=== PATIENT | female | born 1945 | race African-American/Black ===

== ENCOUNTER 2018-01-09 13:08 | Inpatient (IN) | payer MEDICARE, OTHER ==
[~2018-01-09] VITALS: Ht 160 cm; Wt 107.0 kg
[~2018-01-09 13:08] MED LIST: AMLODIPINE BESYL5 MG ORAL; ATORVASTATIN CA20 MG ORAL; CEPHALEXIN250 MG ORAL; DOCUSATE SODIU100 MG ORAL; EPOGEN10000 UNIT SUBQ; HEPARIN SO5000 UNIT2 SUBQ; HYDRALAZINE HCL25 M1 ORAL; ISOSORBIDE DINIT5 MG ORAL; KCL; LANTISEPTIC OI113 GM TP; METOPROLOL TART25 MG ORAL; NORCO 5-325 TA1 EAC1 ORAL; NORCO 5-325 TA1 EACH ORAL; OMEPRAZOLE20 M2 ORAL; PROTONIX40 MG ORAL; SYNTHROID200 MC1 IV; TEMAZEPAM15 MG ORAL; ZOFRAN 4 MG4 MG/2 ML IV; [UNRECOGNIZED DRUG - OTHER]; atorvastatin; carbidopa; lasix; levothyroxine; losartan; trazadone; zoloft
[2018-01-09] MEDS ORDERED: APRESOLINE50 MG ORAL (15:20)
[2018-01-09] MEDS ORDERED: PANTOPRAZOLE SO20 MG ORAL (15:20)
[2018-01-09] MEDS ORDERED: LOSARTAN POTAS100 MG ORAL (15:20)
[2018-01-09] MEDS ORDERED: LEVOTHYROXINE137 MCG ORAL (15:20)
[2018-01-09] MEDS ORDERED: NORCO 10/3251 EA ORAL (15:20)
[2018-01-09] MEDS ORDERED: NORVASC10 MG ORAL (15:22)
[2018-01-09] MEDS ORDERED: METOPROLOL TART25 MG ORAL (15:22)
[2018-01-09] MEDS ORDERED: Norco 5mg/325mg tab ORAL PRN (17:00)
[2018-01-09 18:23] LABS: HEMATOCRIT 21.5 % (37.0-47.0); MEAN CORPUSCULAR VOLUME 86 FL (80-99); PLATELET COUNT 183 K/UL (150-450); RED BLOOD COUNT 2.48 M/UL (4.20-5.40); RED CELL DISTRIBUTION WIDTH 13.3 % (11.6-14.8)
[2018-01-09 18:35] LABS: HEMOGLOBIN 6.8 G/DL (12.0-16.0)
[2018-01-09] MEDS: Docusate 100mg cap ORAL SCH (18:48)
[2018-01-09 19:03] LABS: ALANINE AMINOTRANSFERASE 66 U/L (12-78); ALBUMIN 2.8 G/DL (3.4-5.0); ALBUMIN/GLOBULIN RATIO 0.6 (1.0-2.7); ALKALINE PHOSPHATASE 91 U/L (46-116); ANION GAP 11 mmol/L (5-15); ASPARTATE AMINO TRANSFERASE 80 U/L (15-37); BILIRUBIN,TOTAL 0.3 MG/DL (0.2-1.0); BLOOD UREA NITROGEN 29 mg/dL (7-18); CALCIUM 9.2 MG/DL (8.5-10.1); CARBON DIOXIDE 21 MMOL/L (21-32); CHLORIDE 109 MMOL/L (98-107); CREATININE 2.8 MG/DL (0.55-1.30); POTASSIUM 4.6 MMOL/L (3.5-5.1); SODIUM 141 MMOL/L (136-145)
[2018-01-09 19:46] LABS: % IRON SATURATION 6 % (15-50); IRON 25 ug/dL (50-175); TOTAL IRON BINDING CAPACITY 422 ug/dL (250-450)
[2018-01-09 20:00] VITALS: BP 156/74
[2018-01-09] MEDS ORDERED: Heparin 5000 units/ml inj SUBQ SCH (21:00)
[2018-01-09] MEDS: HydrALAZINE 50mg tab ORAL SCH (21:13)
[2018-01-09 21:17] LABS: APPEARANCE,URINE CLEAR; BILIRUBIN, URINE NEGATIVE (NEGATIVE); COLOR,URINE PALE YELLOW; GLUCOSE, URINE (UA) NEGATIVE (NEGATIVE); KETONES,URINE NEGATIVE (NEGATIVE); LEUKOCYTE ESTERASE ,URINE 1+ (NEGATIVE); NITRITE,URINE NEGATIVE (NEGATIVE); PH,URINE 6.5 (4.5-8.0); PROTEIN,URINE 3+ (NEGATIVE); UROBILINOGEN,URINE NORMAL MG/DL (0.0-1.0)
[2018-01-09] MEDS ORDERED: DiphenhydrAMINE 50mg/ml Inj IVP PRN (23:30)
[2018-01-10] VITALS: BP 171/91
[2018-01-10 04:33] VITALS: BP 159/98
[2018-01-10] MEDS: HydrALAZINE 50mg tab ORAL SCH ×3 (06:22→21:21)
[2018-01-10] MEDS: Levothyroxine 125mcg tab ORAL SCH (06:22)
[2018-01-10 08:20] VITALS: BP 145/70
[2018-01-10] MEDS: Metoprolol 25mg tab ORAL SCH (09:01)
[2018-01-10] MEDS: Docusate 100mg cap ORAL SCH ×2 (09:02→18:00)
[2018-01-10] MEDS: Losartan 50mg tab ORAL SCH (09:02)
[2018-01-10 09:47] LABS: ALANINE AMINOTRANSFERASE 55 U/L (12-78); ALBUMIN 2.6 G/DL (3.4-5.0); ALBUMIN/GLOBULIN RATIO 0.6 (1.0-2.7); ALKALINE PHOSPHATASE 85 U/L (46-116); ANION GAP 11 mmol/L (5-15); ASPARTATE AMINO TRANSFERASE 84 U/L (15-37); BILIRUBIN,TOTAL 0.4 MG/DL (0.2-1.0); BLOOD UREA NITROGEN 30 mg/dL (7-18); CALCIUM 8.7 MG/DL (8.5-10.1); CARBON DIOXIDE 20 MMOL/L (21-32); CHLORIDE 110 MMOL/L (98-107); CREATININE 2.9 MG/DL (0.55-1.30); POTASSIUM 4.7 MMOL/L (3.5-5.1); SODIUM 141 MMOL/L (136-145)
[2018-01-10 10:24] LABS: BASOPHILS % (AUTO) 0.5 % (0.0-2.0); EOSINOPHILS % (AUTO) 2.6 % (0.0-3.0); HEMOGLOBIN 9.4 G/DL (12.0-16.0); LYMPHOCYTES % (AUTO) 14.4 % (20.0-45.0); MEAN CORPUSCULAR VOLUME 87 FL (80-99); MONOCYTES % (AUTO) 13.8 % (1.0-10.0); NEUTROPHILS % (AUTO) 68.7 % (45.0-75.0); PLATELET COUNT 200 K/UL (150-450); RED BLOOD COUNT 3.34 M/UL (4.20-5.40); RED CELL DISTRIBUTION WIDTH 13.7 % (11.6-14.8); WHITE BLOOD COUNT 3.9 K/UL (4.8-10.8)
[2018-01-10 11:47] VITALS: BP 154/57
--- NOTE | 2018-01-10 14:33 | Diagnostic Imaging Report ---
Indication: Abdominal pain, nausea, vomiting Technique: Spiral acquisitions obtained through the abdomen and pelvis. Patient given oral contrast. No IV contrast utilized, per referring physician request.. Multiplanar reconstructions were generated. Total dose length product 1015.96 mGycm. CTDIvol(s) 19.95 mGy. Dose reduction achieved using automated exposure control Comparison: None. Reference made to abdomen ultrasound dated 05/10/2015 Findings: The appendix is not definitely identified, but there are no findings to suggest acute appendicitis. There is an apparent 6 cm long segment of wall thickening of the proximal rectum, probably artifactual secondary to lack of distention. No evidence of diverticulosis or diverticulitis. No small bowel distention. Contrast is seen all the way through the small bowel to the distal rectum. The stomach, duodenum, distal esophagus are unremarkable. Lack of IV contrast limits assessment of the solid organs. The liver is unremarkable. The gallbladder demonstrate very faint gallstones. No biliary ductal dilatation. The pancreas is unremarkable. The spleen is upper limits of normal in size, demonstrates parenchymal calcifications. The adrenals are unremarkable. The kidneys demonstrate bilateral subcentimeter low-attenuation lesions which are too small to characterize but most likely represent benign simple cysts. No retroperitoneal or mesenteric mass or adenopathy. No pelvic mass or adenopathy. There is a left hip prosthesis which results in streak artifact which may obscure pathology in the pelvis. The uterus is nonvisualized, probably surgically absent. There are midline fascial wire sutures. There is a calcified granuloma in the medial right lower lobe. The included lung bases are otherwise largely cleared. There is a small pericardial effusion measuring up to 5 mm in thickness. The bones are unremarkable. Impression: Apparent 6 cm long segment wall thickening of the proximal rectum. This is probably just an artifact due to nondistention. 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
--- NOTE | 2018-01-10 15:47 | History and Physical Report ---
DATE OF ADMISSION: 01/09/2018 CHIEF COMPLAINT: Generalized malaise and dehydration. HISTORY OF PRESENT ILLNESS: The patient is a 72-year-old female well known to me. She has a history of hypertension and stroke. She has prior history of pericardial effusion and leukopenia. She presented to the office with complaints of one week of malaise, weakness, and poor p.o. intake. According to family members, the patient had been lethargic and sleepy most of the day. She is not eating and when she had, she had vomiting and had been unable to tolerate any p.o. She clinically was dehydrated. In the light of this recent history, she is now admitted for further evaluation and care. PAST MEDICAL HISTORY: As above. PAST SURGICAL HISTORY: None. CURRENT MEDICATIONS: Reconciled and reviewed. ALLERGIES: Include erythromycin. FAMILY HISTORY: Noncontributory. SOCIAL HISTORY: There is no known history of tobacco, ethanol, or drugs. REVIEW OF SYSTEMS: From the patient is unobtainable as she is lethargic. PHYSICAL EXAMINATION: VITAL SIGNS: Temperature is 99.1, pulse 103, respirations 22, and blood pressure 171/91. GENERAL: The patient is a well-developed chronically ill-appearing female. She has evidence of an old scar on the forehead. NECK: Supple. There is no jugular venous distention. HEART: Regular rate and rhythm. LUNGS: Clear. ABDOMEN: Soft, obese, and nontender. EXTREMITIES: No clubbing, cyanosis, or edema. LABORATORY DATA: UA was clear. White count 4, hemoglobin 6.8, hematocrit 21, and platelets of 183,000. Sodium 141 and creatinine was 2.8. The urine was clear. ASSESSMENT: This is a pleasant female admitted with complaints of generalized malaise, weakness, nausea, and vomiting. She has severe anemia, unclear etiology, cannot rule out gastrointestinal bleed. She also has acute renal failure. PLAN: IV hydration. Transfuse to hemoglobin greater than 8.5. Check stool occult blood. The patient will receive IV iron. We will continue outpatient antihypertensive regimen. Get CT scan of the abdomen as ordered in light of the patient's recent complaints of nausea, vomiting, and abdominal pain. Chema Uomoto, M.D. DR: OLVIN JOB#: [id number] CC:
[2018-01-10 15:55] VITALS: BP 146/75
[2018-01-10 20:00] VITALS: BP 152/89
[2018-01-11] VITALS: BP 169/92
[2018-01-11 04:00] VITALS: BP 141/75
[2018-01-11] MEDS: HydrALAZINE 50mg tab ORAL SCH ×3 (06:02→21:00)
[2018-01-11] MEDS: Levothyroxine 125mcg tab ORAL SCH (06:02)
[2018-01-11] MEDS: Metoprolol 25mg tab ORAL SCH (08:13)
[2018-01-11] MEDS: Losartan 50mg tab ORAL SCH (08:14)
[2018-01-11] MEDS: Docusate 100mg cap ORAL SCH ×2 (08:14→18:00)
[2018-01-11 09:00] VITALS: BP 147/89
--- NOTE | 2018-01-11 09:02 | General Progress Note ---
Assessment/Plan Problem List: (1) Acute renal failure (ARF) ICD Codes: N17.9 - Acute kidney failure, unspecified SNOMED: 62483751 (2) Chronic kidney disease, stage III (moderate) ICD Codes: N18.3 - Chronic kidney disease, stage III (moderate) SNOMED: 240448743 (3) Pancytopenia ICD Codes: D61.818 - Pancytopenia SNOMED: 230147922 (4) Abdominal pain in female ICD Codes: R10.9 - Unspecified abdominal pain SNOMED: 72283839 Status: stable, progressing Assessment/Plan ivf check renal neyda check ck monitor h/h transfuse prn gi eval Subjective ROS Limited/Unobtainable: No Constitutional: Reports: malaise, weakness HEENT: Reports: no symptoms Cardiovascular: Reports: no symptoms Respiratory: Reports: cough Gastrointestinal/Abdominal: Reports: poor appetite Genitourinary: Reports: no symptoms Neurologic/Psychiatric: Reports: pre-existing deficit Endocrine: Reports: no symptoms Hematologic/Lymphatic: Reports: anemia Allergies: Coded Allergies: ERYTHROMYCIN BASE (Unverified Allergy, Intermediate, 02/10/15) All Systems: reviewed and negative except above Subjective no events. no new complaints. ct noted. h/h better. renal fxn not improved Objective Last 24 Hour Vital Signs Date Time Temp Pulse Resp B/P (MAP) Pulse Ox O2 Delivery O2 Flow Rate FiO2 01/11/18 08:14 141/75 01/11/18 08:14 99 141/75 01/11/18 08:13 99 141/75 01/11/18 06:02 141/75 01/11/18 04:00 96 Room Air 01/11/18 04:00 97.8 99 20 141/75 93 Room Air 97.8 01/11/18 00:54 169/92 01/11/18 00:00 95 Room Air 01/11/18 00:00 98.2 98 20 169/92 94 Room Air 98.2 01/10/18 21:21 152/89 01/10/18 20:00 96 Room Air 01/10/18 20:00 98.8 86 20 152/89 94 Room Air 98.8 01/10/18 15:55 98.8 88 21 146/75 97 Room Air 98.8 01/10/18 14:34 154/57 01/10/18 11:47 98.1 83 18 154/57 97 Room Air 98.1 01/10/18 09:02 159/98 01/10/18 09:02 95 159/98 Intake and Output 01/10/18 01/11/18 19:00 07:00 Intake Total 1155 ml 900 ml Balance 1155 ml 900 ml Intake Oral 480 ml IV Total 675 ml 900 ml # Voids 2 4 # Bowel Movements 3 Laboratory Tests 01/10/18 09:05: Sodium Level 141, Potassium Level 4.7, Chloride Level 110H, Carbon Dioxide Level 20L, Anion Gap 11, Blood Urea Nitrogen 30H, Creatinine 2.9H, Estimat Glomerular Filtration Rate 19.4, Glucose Level 148H, Calcium Level 8.7, Total Bilirubin 0.4, Aspartate Amino Transf (AST/SGOT) 84H, Alanine Aminotransferase ( ALT/SGPT) 55, Alkaline Phosphatase 85, Total Protein 7.1, Albumin 2.6L, Globulin 4.5, Albumin/Globulin Ratio 0.6L 01/10/18 10:15: Stool Occult Blood [Pending] 01/10/18 10:20: White Blood Count 3.9L, Red Blood Count 3.34L, Hemoglobin 9.4#L, Hematocrit 29.0 #L, Mean Corpuscular Volume 87, Mean Corpuscular Hemoglobin 28.0, Mean Corpuscular Hemoglobin Concent 32.2, Red Cell Distribution Width 13.7, Platelet Count 200, Mean Platelet Volume 7.2, Neutrophils (%) (Auto) 68.7, Lymphocytes (% ) (Auto) 14.4L, Monocytes (%) (Auto) 13.8H, Eosinophils (%) (Auto) 2.6, Basophils (%) (Auto) 0.5 Height (Feet): 5 Height (Inches): 3.00 Weight (Pounds): 237 General Appearance: WD/WN, alert Neck: supple Cardiovascular: normal rate, regular rhythm Respiratory/Chest: chest wall non-tender, lungs clear, normal breath sounds, no respiratory distress Abdomen: normal bowel sounds, non tender, soft, no organomegaly Edema: no edema noted Arm (L), no edema noted Arm (R), no edema noted Leg (L), no edema noted Leg (R), no edema noted Pedal (L), no edema noted Pedal (R), no edema noted Generalized Neurologic: alert, oriented x 3, responsive WILLIE AZEVEDO Jan 11, 2018 09:02
[2018-01-11 10:39] LABS: CREATINE KINASE 563 U/L (26-308)
[2018-01-11 16:00] VITALS: BP 146/91
--- NOTE | 2018-01-11 16:48 | Diagnostic Imaging Report ---
Indication: Acute renal failure Technique: Grayscale and duplex images of the kidneys Comparison: Abdomen and pelvis CT 01/10/2018, abdominal ultrasound dated 05/10/2015 Findings: Right kidney measures 10.8 cm in length. Left kidney measures 10.6 cm in length. Both kidneys demonstrate increased echogenicity. There is no hydronephrosis. Both kidneys demonstrate multiple small cysts, not demonstrated on prior ultrasound and reported on recent CT scan. The bladder is unremarkable. The increased renal echogenicity is a new finding from the prior ultrasound. Impression: Bilateral increased renal echogenicity, consistent with medical renal disease Negative for hydronephrosis Incidental finding of bilateral small renal cysts
--- NOTE | 2018-01-11 18:27 | General Progress Note ---
Assessment/Plan Assessment/Plan Assessment - Anemia - OB (+) stools - ? abnormal CT scan in rectal area - Azotemia - obesity - HTN - h/o CVA Recommendations - Clear liquid Sat and Sun - GI prep - EGD/Colon Sunday at 11 am (discussed with daughter) - monitor CBC - transfuse PRN Subjective Allergies: Coded Allergies: ERYTHROMYCIN BASE (Unverified Allergy, Intermediate, 02/10/15) Objective Last 24 Hour Vital Signs Date Time Temp Pulse Resp B/P (MAP) Pulse Ox O2 Delivery O2 Flow Rate FiO2 01/11/18 16:00 97.7 87 20 146/91 97 97.7 01/11/18 14:03 147/89 01/11/18 09:00 98.7 103 20 147/89 99 98.7 01/11/18 08:14 141/75 01/11/18 08:14 99 141/75 01/11/18 08:13 99 141/75 01/11/18 06:02 141/75 01/11/18 04:00 96 Room Air 01/11/18 04:00 97.8 99 20 141/75 93 Room Air 97.8 01/11/18 00:54 169/92 01/11/18 00:00 95 Room Air 01/11/18 00:00 98.2 98 20 169/92 94 Room Air 98.2 01/10/18 21:21 152/89 01/10/18 20:00 96 Room Air 01/10/18 20:00 98.8 86 20 152/89 94 Room Air 98.8 Intake and Output 01/10/18 01/11/18 19:00 07:00 Intake Total 1155 ml 900 ml Balance 1155 ml 900 ml Intake Oral 480 ml IV Total 675 ml 900 ml # Voids 2 4 # Bowel Movements 3 Laboratory Tests 01/11/18 07:00: Total Creatine Kinase 563H Height (Feet): 5 Height (Inches): 3.00 Weight (Pounds): 237 MARIA DE JESUS DAUGHERTY Jan 11, 2018 18:27
[2018-01-11] MEDS ORDERED: Sorbitol Solution UD 30ml ORAL ONE (18:45)
[2018-01-11 20:00] VITALS: BP 165/98
[2018-01-11] MEDS: Zolpidem 5mg tab ORAL PRN ×2 (23:13)
[2018-01-12] VITALS: BP 183/99
--- NOTE | 2018-01-12 02:45 | Consultation ---
DATE OF CONSULTATION: 01/11/2018 GASTROENTEROLOGY CONSULTATION REPORT CHIEF COMPLAINT: I was asked to see this patient by Dr. Chema Hendricks for evaluation of severe anemia. HISTORY OF PRESENT ILLNESS: The patient is an unfortunate 72-year-old woman with a history of stroke, hypertension, and other medical problems, who was brought in to the hospital due to weakness, lethargy, and sleepiness. In the emergency room, she was found to be in renal failure with severe anemia. She has been admitted and has received transfusions. She is more awake now. The cause of anemia is unknown, but she does have heme-positive stools. She cannot recall ever having an endoscopy and colonoscopy and neither does her daughter. She denies any abdominal pain, nausea, or vomiting. PAST MEDICAL HISTORY: History of hypertension, stroke, obesity, history of pericardial effusion, history of leukopenia, current renal failure, and current anemia. MEDICATIONS: See the chart list for details. ALLERGIES: Erythromycin. SOCIAL HISTORY: The patient does not smoke or drink alcohol. Her daughter looks after her affairs. FAMILY HISTORY: Noncontributory. REVIEW OF SYSTEMS: Otherwise negative. PHYSICAL EXAMINATION: GENERAL: Pleasant, debilitated, woman, seen in her room. HEENT: Normocephalic and atraumatic. Sclerae are anicteric. Oropharynx clear. NECK: Supple. CHEST: Clear to auscultation. CARDIOVASCULAR: Revealed a regular rate. ABDOMEN: Soft, but obese. There is no organomegaly, but the examination is difficult. EXTREMITIES: Revealed trace edema. LABORATORY DATA: Laboratory data were noted. ASSESSMENT: This patient presents with profound anemia, which will require further workup especially since the patient is heme-positive. The rectal findings on CT scan are slightly nonspecific and often seen in the setting of rectal prolapse as a false positive and no pathology. However, an endoscopy and colonoscopy will be adequate to evaluate this area as well as the other relevant areas of the gastrointestinal tract. The indications, risks, alternatives, and possible complications were explained to the patient's daughter and informed consent was obtained. RECOMMENDATIONS: 1. Keep the patient on a clear liquid diet. 2. GI tract preparation. 3. Endoscopy and colonoscopy in a few days. Thank you for asking me to participate in the care of this patient. Mina Rao M.D. DR: Carolyne JOB#: [id number] CC: YUE
[2018-01-12 04:00] VITALS: BP 163/90
[2018-01-12] MEDS: HydrALAZINE 50mg tab ORAL SCH ×3 (06:28→20:48)
[2018-01-12] MEDS: Levothyroxine 125mcg tab ORAL SCH (06:29)
[2018-01-12] MEDS ORDERED: Sorbitol Solution UD 30ml ORAL ONE ×2 (07:00→18:30)
[2018-01-12 07:18] LABS: BASOPHILS % (AUTO) 0.8 % (0.0-2.0); EOSINOPHILS % (AUTO) 2.9 % (0.0-3.0); HEMATOCRIT 27.1 % (37.0-47.0); HEMOGLOBIN 8.9 G/DL (12.0-16.0); LYMPHOCYTES % (AUTO) 13.8 % (20.0-45.0); MEAN CORPUSCULAR VOLUME 86 FL (80-99); MONOCYTES % (AUTO) 10.6 % (1.0-10.0); NEUTROPHILS % (AUTO) 71.9 % (45.0-75.0); PLATELET COUNT 171 K/UL (150-450); RED BLOOD COUNT 3.14 M/UL (4.20-5.40); RED CELL DISTRIBUTION WIDTH 14.2 % (11.6-14.8); WHITE BLOOD COUNT 3.7 K/UL (4.8-10.8)
[2018-01-12 07:35] LABS: ALANINE AMINOTRANSFERASE 65 U/L (12-78); ALBUMIN 2.6 G/DL (3.4-5.0); ALBUMIN/GLOBULIN RATIO 0.6 (1.0-2.7); ALKALINE PHOSPHATASE 82 U/L (46-116); ANION GAP 9 mmol/L (5-15); ASPARTATE AMINO TRANSFERASE 81 U/L (15-37); BILIRUBIN,TOTAL 0.3 MG/DL (0.2-1.0); BLOOD UREA NITROGEN 26 mg/dL (7-18); CALCIUM 8.8 MG/DL (8.5-10.1); CARBON DIOXIDE 21 MMOL/L (21-32); CHLORIDE 113 MMOL/L (98-107); CREATININE 2.7 MG/DL (0.55-1.30); POTASSIUM 4.7 MMOL/L (3.5-5.1); SODIUM 143 MMOL/L (136-145)
[2018-01-12 08:00] VITALS: BP 174/93
[2018-01-12] MEDS: Metoprolol 25mg tab ORAL SCH (08:47)
[2018-01-12] MEDS: Docusate 100mg cap ORAL SCH ×2 (08:47→18:00)
--- NOTE | 2018-01-12 08:56 | General Progress Note ---
Assessment/Plan Problem List: (1) Acute renal failure (ARF) ICD Codes: N17.9 - Acute kidney failure, unspecified SNOMED: 53503363 (2) Chronic kidney disease, stage III (moderate) ICD Codes: N18.3 - Chronic kidney disease, stage III (moderate) SNOMED: 904790843 (3) Pancytopenia ICD Codes: D61.818 - Pancytopenia SNOMED: 864148357 (4) Abdominal pain in female ICD Codes: R10.9 - Unspecified abdominal pain SNOMED: 18313949 Status: stable, progressing Assessment/Plan ivf endoscopy monitor h/h monitor labs iv iron replacement transfuse prn Subjective ROS Limited/Unobtainable: No Constitutional: Reports: malaise, weakness HEENT: Reports: no symptoms Cardiovascular: Reports: no symptoms Respiratory: Reports: no symptoms Gastrointestinal/Abdominal: Reports: poor appetite Genitourinary: Reports: no symptoms Neurologic/Psychiatric: Reports: no symptoms Endocrine: Reports: no symptoms Hematologic/Lymphatic: Reports: anemia Allergies: Coded Allergies: ERYTHROMYCIN BASE (Unverified Allergy, Intermediate, 02/10/15) All Systems: reviewed and negative except above Subjective no events. no new complaints. ct noted. h/h better. renal fxn not improved. on ivf. GI appreciated. appetite better. Objective Last 24 Hour Vital Signs Date Time Temp Pulse Resp B/P (MAP) Pulse Ox O2 Delivery O2 Flow Rate FiO2 01/12/18 08:47 106 174/93 01/12/18 08:47 106 174/93 01/12/18 08:00 97.8 106 20 174/93 98 97.8 01/12/18 06:28 163/90 01/12/18 04:00 98.2 107 20 163/90 96 98.2 01/12/18 00:00 98.1 96 21 183/99 99 98.1 01/11/18 21:00 168/98 01/11/18 20:00 98.2 95 20 165/98 97 98.2 01/11/18 16:00 97.7 87 20 146/91 97 97.7 01/11/18 14:03 147/89 01/11/18 09:00 98.7 103 20 147/89 99 98.7 Intake and Output 01/11/18 01/12/18 19:00 07:00 Intake Total 995 ml 765 ml Output Total 200 ml Balance 795 ml 765 ml Intake Oral 920 ml 240 ml IV Total 75 ml 525 ml Output Post Void Residual 200 ml Bladder Scan Volume Amount 101-150 ml # Voids 5 5 # Bowel Movements 2 Laboratory Tests 01/12/18 06:20: White Blood Count 3.7L, Red Blood Count 3.14L, Hemoglobin 8.9L, Hematocrit 27.1L , Mean Corpuscular Volume 86, Mean Corpuscular Hemoglobin 28.4, Mean Corpuscular Hemoglobin Concent 32.9, Red Cell Distribution Width 14.2, Platelet Count 171, Mean Platelet Volume 8.5, Neutrophils (%) (Auto) 71.9, Lymphocytes (% ) (Auto) 13.8L, Monocytes (%) (Auto) 10.6H, Eosinophils (%) (Auto) 2.9, Basophils (%) (Auto) 0.8, Sodium Level 143, Potassium Level 4.7, Chloride Level 113H, Carbon Dioxide Level 21, Anion Gap 9, Blood Urea Nitrogen 26H, Creatinine 2.7H, Estimat Glomerular Filtration Rate 21.1, Glucose Level 123H, Calcium Level 8.8, Total Bilirubin 0.3, Aspartate Amino Transf (AST/SGOT) 81H, Alanine Aminotransferase (ALT/SGPT) 65, Alkaline Phosphatase 82, Total Protein 7.0, Albumin 2.6L, Globulin 4.4, Albumin/Globulin Ratio 0.6L Height (Feet): 5 Height (Inches): 3.00 Weight (Pounds): 237 Objective General Appearance: WD/WN, alert Neck: supple Cardiovascular: normal rate, regular rhythm Respiratory/Chest: chest wall non-tender, lungs clear, normal breath sounds, no respiratory distress Abdomen: normal bowel sounds, non tender, soft, no organomegaly Edema: no edema noted Arm (L), no edema noted Arm (R), no edema noted Leg (L), no edema noted Leg (R), no edema noted Pedal (L), no edema noted Pedal (R), no edema noted Generalized Neurologic: alert, oriented x 3, responsive WILLIE AZEVEDO Jan 12, 2018 08:56
[2018-01-12] MEDS: Losartan 50mg tab ORAL SCH (09:05)
[2018-01-12] MEDS ORDERED: Tubing Blood Filter IV ONE (11:08)
[2018-01-12 12:00] VITALS: BP 167/58
[2018-01-12 16:00] VITALS: BP 165/91
--- NOTE | 2018-01-12 17:57 | General Progress Note ---
Assessment/Plan Assessment/Plan Assessment - Anemia - OB (+) stools - ? abnormal CT scan in rectal area - Azotemia - obesity - HTN - h/o CVA Recommendations - Clear liquid Sat and Sun - GI prep - EGD/Colon Sunday at 11 am (discussed with daughter) - monitor CBC - transfuse PRN Subjective Allergies: Coded Allergies: ERYTHROMYCIN BASE (Unverified Allergy, Intermediate, 02/10/15) Subjective Above noted (+) BM with laxatives H&H noted Objective Last 24 Hour Vital Signs Date Time Temp Pulse Resp B/P (MAP) Pulse Ox O2 Delivery O2 Flow Rate FiO2 01/12/18 16:00 97.8 93 20 165/91 97 97.8 01/12/18 15:05 166/100 01/12/18 12:00 97.8 89 20 167/58 98 97.8 01/12/18 09:05 174/93 01/12/18 08:47 106 174/93 01/12/18 08:47 106 174/93 01/12/18 08:00 97.8 106 20 174/93 98 97.8 01/12/18 06:28 163/90 01/12/18 04:00 98.2 107 20 163/90 96 98.2 01/12/18 00:00 98.1 96 21 183/99 99 98.1 01/11/18 21:00 168/98 01/11/18 20:00 98.2 95 20 165/98 97 98.2 Intake and Output 01/11/18 01/12/18 19:00 07:00 Intake Total 995 ml 765 ml Output Total 200 ml Balance 795 ml 765 ml Intake Oral 920 ml 240 ml IV Total 75 ml 525 ml Output Post Void Residual 200 ml Bladder Scan Volume Amount 101-150 ml # Voids 5 5 # Bowel Movements 2 Laboratory Tests 01/12/18 06:20: White Blood Count 3.7L, Red Blood Count 3.14L, Hemoglobin 8.9L, Hematocrit 27.1L , Mean Corpuscular Volume 86, Mean Corpuscular Hemoglobin 28.4, Mean Corpuscular Hemoglobin Concent 32.9, Red Cell Distribution Width 14.2, Platelet Count 171, Mean Platelet Volume 8.5, Neutrophils (%) (Auto) 71.9, Lymphocytes (% ) (Auto) 13.8L, Monocytes (%) (Auto) 10.6H, Eosinophils (%) (Auto) 2.9, Basophils (%) (Auto) 0.8, Sodium Level 143, Potassium Level 4.7, Chloride Level 113H, Carbon Dioxide Level 21, Anion Gap 9, Blood Urea Nitrogen 26H, Creatinine 2.7H, Estimat Glomerular Filtration Rate 21.1, Glucose Level 123H, Calcium Level 8.8, Total Bilirubin 0.3, Aspartate Amino Transf (AST/SGOT) 81H, Alanine Aminotransferase (ALT/SGPT) 65, Alkaline Phosphatase 82, Total Protein 7.0, Albumin 2.6L, Globulin 4.4, Albumin/Globulin Ratio 0.6L Height (Feet): 5 Height (Inches): 3.00 Weight (Pounds): 237 Objective Obese AA woman NCAT supple CTA RRR Abd obese soft NT no edema MARIA DE JESUS DAUGHERTY Jan 12, 2018 17:57
[2018-01-12] MEDS ORDERED: Bisacodyl EC 5mg tab ORAL ONE (18:30)
[2018-01-12 20:00] VITALS: BP 176/90
[2018-01-12] MEDS: Iron Sucrose 100 MG in NS 55 ML IVPB SCH (20:49)
[2018-01-12] MEDS: Zolpidem 5mg tab ORAL PRN (20:59)
[2018-01-13] VITALS: BP 147/83
[2018-01-13 04:18] VITALS: BP 156/78
[2018-01-13] MEDS ORDERED: Nulytely 4L ORAL ONE (06:00)
[2018-01-13] MEDS: Levothyroxine 125mcg tab ORAL SCH (06:16)
[2018-01-13] MEDS: HydrALAZINE 50mg tab ORAL SCH ×3 (06:16→20:37)
[2018-01-13 07:23] LABS: BASOPHILS % (AUTO) 0.6 % (0.0-2.0); EOSINOPHILS % (AUTO) 2.1 % (0.0-3.0); HEMATOCRIT 28.3 % (37.0-47.0); HEMOGLOBIN 9.3 G/DL (12.0-16.0); LYMPHOCYTES % (AUTO) 12.7 % (20.0-45.0); MEAN CORPUSCULAR VOLUME 87 FL (80-99); NEUTROPHILS % (AUTO) 77.5 % (45.0-75.0); PLATELET COUNT 166 K/UL (150-450); RED BLOOD COUNT 3.26 M/UL (4.20-5.40); RED CELL DISTRIBUTION WIDTH 13.9 % (11.6-14.8); WHITE BLOOD COUNT 4.8 K/UL (4.8-10.8)
[2018-01-13 08:00] VITALS: BP 143/83
[2018-01-13 08:12] LABS: ALANINE AMINOTRANSFERASE 67 U/L (12-78); ALBUMIN 2.7 G/DL (3.4-5.0); ALBUMIN/GLOBULIN RATIO 0.6 (1.0-2.7); ALKALINE PHOSPHATASE 86 U/L (46-116); ANION GAP 10 mmol/L (5-15); ASPARTATE AMINO TRANSFERASE 77 U/L (15-37); BILIRUBIN,TOTAL 0.2 MG/DL (0.2-1.0); BLOOD UREA NITROGEN 21 mg/dL (7-18); CARBON DIOXIDE 19 MMOL/L (21-32); CHLORIDE 112 MMOL/L (98-107); CREATININE 2.3 MG/DL (0.55-1.30); POTASSIUM 4.3 MMOL/L (3.5-5.1); SODIUM 141 MMOL/L (136-145)
[2018-01-13] MEDS: Losartan 50mg tab ORAL SCH (09:46)
[2018-01-13] MEDS: Metoprolol 25mg tab ORAL SCH (09:47)
[2018-01-13] MEDS: Docusate 100mg cap ORAL SCH ×2 (09:47→17:10)
[2018-01-13] MEDS ORDERED: Tubing IV Secondary IV ONE (10:00)
--- NOTE | 2018-01-13 10:07 | General Progress Note ---
Assessment/Plan Problem List: (1) Acute renal failure (ARF) ICD Codes: N17.9 - Acute kidney failure, unspecified SNOMED: 75760855 (2) Chronic kidney disease, stage III (moderate) ICD Codes: N18.3 - Chronic kidney disease, stage III (moderate) SNOMED: 228078961 (3) Pancytopenia ICD Codes: D61.818 - Pancytopenia SNOMED: 897327904 (4) Abdominal pain in female ICD Codes: R10.9 - Unspecified abdominal pain SNOMED: 61902956 Status: stable, progressing Assessment/Plan ivf endoscopy monitor h/h monitor labs iv iron replacement transfuse prn increase metoprolol Subjective ROS Limited/Unobtainable: No Constitutional: Reports: malaise, weakness HEENT: Reports: no symptoms Cardiovascular: Reports: no symptoms Respiratory: Reports: no symptoms Gastrointestinal/Abdominal: Reports: no symptoms Genitourinary: Reports: no symptoms Neurologic/Psychiatric: Reports: pre-existing deficit Endocrine: Reports: no symptoms Hematologic/Lymphatic: Reports: no symptoms Allergies: Coded Allergies: ERYTHROMYCIN BASE (Unverified Allergy, Intermediate, 02/10/15) All Systems: reviewed and negative except above Subjective no events. no new complaints. ct noted. h/h better. renal fxn not improved. on ivf. GI appreciated. appetite better. increased hr noted Objective Last 24 Hour Vital Signs Date Time Temp Pulse Resp B/P (MAP) Pulse Ox O2 Delivery O2 Flow Rate FiO2 01/13/18 09:47 111 143/83 01/13/18 09:47 111 143/83 01/13/18 09:46 143/83 01/13/18 08:00 99.0 111 20 143/83 97 99.0 01/13/18 06:16 156/78 01/13/18 04:18 99.0 108 22 156/78 96 Room Air 99.0 01/13/18 00:00 98.8 103 21 147/83 97 98.8 01/12/18 20:48 176/90 01/12/18 20:00 98.2 98 21 176/90 95 98.2 01/12/18 16:00 97.8 93 20 165/91 97 97.8 01/12/18 15:05 166/100 01/12/18 12:00 97.8 89 20 167/58 98 97.8 Intake and Output 2/24/18 2/25/18 19:00 07:00 Intake Total 555 ml 990 ml Balance 555 ml 990 ml Intake Oral 480 ml IV Total 75 ml 990 ml # Voids 8 2 # Bowel Movements 5 1 Laboratory Tests 01/13/18 06:20: White Blood Count 4.8, Red Blood Count 3.26L, Hemoglobin 9.3L, Hematocrit 28.3L , Mean Corpuscular Volume 87, Mean Corpuscular Hemoglobin 28.6, Mean Corpuscular Hemoglobin Concent 33.0, Red Cell Distribution Width 13.9, Platelet Count 166, Mean Platelet Volume 8.1, Neutrophils (%) (Auto) 77.5H, Lymphocytes ( %) (Auto) 12.7L, Monocytes (%) (Auto) 7.0, Eosinophils (%) (Auto) 2.1, Basophils (%) (Auto) 0.6, Sodium Level 141, Potassium Level 4.3, Chloride Level 112H, Carbon Dioxide Level 19L, Anion Gap 10, Blood Urea Nitrogen 21H, Creatinine 2.3H, Estimat Glomerular Filtration Rate 25.5, Glucose Level 114H, Calcium Level 9.0, Total Bilirubin 0.2, Aspartate Amino Transf (AST/SGOT) 77H, Alanine Aminotransferase (ALT/SGPT) 67, Alkaline Phosphatase 86, Total Protein 7.2, Albumin 2.7L, Globulin 4.5, Albumin/Globulin Ratio 0.6L Height (Feet): 5 Height (Inches): 3.00 Weight (Pounds): 237 Objective General Appearance: WD/WN, alert Neck: supple Cardiovascular: normal rate, regular rhythm Respiratory/Chest: chest wall non-tender, lungs clear, normal breath sounds, no respiratory distress Abdomen: normal bowel sounds, non tender, soft, no organomegaly Edema: no edema noted Arm (L), no edema noted Arm (R), no edema noted Leg (L), no edema noted Leg (R), no edema noted Pedal (L), no edema noted Pedal (R), no edema noted Generalized Neurologic: alert, oriented x 3, responsive WILLIE AZEVEDO Jan 13, 2018 10:07
[2018-01-13 12:00] VITALS: BP 158/89
[2018-01-13] MEDS ORDERED: Bisacodyl EC 5mg tab ORAL ONE (12:00)
[2018-01-13] MEDS ORDERED: Sorbitol Solution UD 30ml ORAL ONE ×2 (14:00→19:00)
[2018-01-13] MEDS: Simethicone 80mg tab ORAL SCH ×3 (14:52→20:37)
--- NOTE | 2018-01-13 15:08 | General Progress Note ---
Assessment/Plan Assessment/Plan Assessment - Anemia - OB (+) stools - ? abnormal CT scan in rectal area - Azotemia - obesity - HTN - h/o CVA Recommendations - Clear liquid Sat and Sun - GI prep - change golytely to more sorbitol and dulcolax - EGD/Colon Sunday at 11 am (discussed with daughter) - monitor CBC - transfuse PRN Subjective Allergies: Coded Allergies: ERYTHROMYCIN BASE (Unverified Allergy, Intermediate, 02/10/15) Subjective Above noted (+) BM with sorbitol refusing to take Golytely for colonoscopy H&H noted Objective Last 24 Hour Vital Signs Date Time Temp Pulse Resp B/P (MAP) Pulse Ox O2 Delivery O2 Flow Rate FiO2 01/13/18 13:26 158/89 01/13/18 12:00 97.9 93 20 158/89 97 97.9 01/13/18 09:47 111 143/83 01/13/18 09:47 111 143/83 01/13/18 09:46 143/83 01/13/18 08:00 99.0 111 20 143/83 97 99.0 01/13/18 06:16 156/78 01/13/18 04:18 99.0 108 22 156/78 96 Room Air 99.0 01/13/18 00:00 98.8 103 21 147/83 97 98.8 01/12/18 20:48 176/90 01/12/18 20:00 98.2 98 21 176/90 95 98.2 01/12/18 16:00 97.8 93 20 165/91 97 97.8 Intake and Output 01/12/18 01/13/18 19:00 07:00 Intake Total 555 ml 1060 ml Balance 555 ml 1060 ml Intake Oral 480 ml IV Total 75 ml 1060 ml # Voids 8 2 # Bowel Movements 5 1 Laboratory Tests 01/13/18 06:20: White Blood Count 4.8, Red Blood Count 3.26L, Hemoglobin 9.3L, Hematocrit 28.3L , Mean Corpuscular Volume 87, Mean Corpuscular Hemoglobin 28.6, Mean Corpuscular Hemoglobin Concent 33.0, Red Cell Distribution Width 13.9, Platelet Count 166, Mean Platelet Volume 8.1, Neutrophils (%) (Auto) 77.5H, Lymphocytes ( %) (Auto) 12.7L, Monocytes (%) (Auto) 7.0, Eosinophils (%) (Auto) 2.1, Basophils (%) (Auto) 0.6, Sodium Level 141, Potassium Level 4.3, Chloride Level 112H, Carbon Dioxide Level 19L, Anion Gap 10, Blood Urea Nitrogen 21H, Creatinine 2.3H, Estimat Glomerular Filtration Rate 25.5, Glucose Level 114H, Calcium Level 9.0, Total Bilirubin 0.2, Aspartate Amino Transf (AST/SGOT) 77H, Alanine Aminotransferase (ALT/SGPT) 67, Alkaline Phosphatase 86, Total Protein 7.2, Albumin 2.7L, Globulin 4.5, Albumin/Globulin Ratio 0.6L Height (Feet): 5 Height (Inches): 3.00 Weight (Pounds): 237 Objective Obese AA woman NCAT supple CTA RRR Abd obese soft NT no edema MARIA DE JESUS DAUGHERTY Jan 13, 2018 15:08
[2018-01-13 15:53] VITALS: BP 167/91
[2018-01-13 19:43] VITALS: BP 163/91
[2018-01-13] MEDS: Iron Sucrose 100 MG in NS 55 ML IVPB SCH (20:38)
[2018-01-13] MEDS: Zolpidem 5mg tab ORAL PRN (22:21)
[2018-01-14] VITALS (9 sets, daily range): BP systolic 148–168; BP diastolic 77–98
[2018-01-14] MEDS: Levothyroxine 125mcg tab ORAL SCH (06:00)
[2018-01-14] MEDS: HydrALAZINE 50mg tab ORAL SCH ×3 (06:00→21:06)
[2018-01-14] MEDS ORDERED: Sorbitol Solution UD 30ml ORAL ONE (06:00)
--- NOTE | 2018-01-14 07:06 | Anethesia Preoperative Eval ---
Anesthesia Pre-op PMH/ROS General Date of Evaluation: Jan 14, 2018 Time of Evaluation: 07:00 Anesthesiologist: oscar ASA Score: ASA 4 Mallampati Score Class I : Soft palate, uvula, fauces, pillars visible Class II: Soft palate, uvula, fauces visible Class III: Soft palate, base of uvula visible Class IV: Only hard plate visible Mallampati Classification: Class IV Surgeon: negin Diagnosis: abdominal pain, anemia, nausea/vomiting Surgical Procedure: egd/colonoscopy Anesthesia History: none Social History: smoking - former smoker Family History: no anesthesia problems Allergies: Coded Allergies: ERYTHROMYCIN BASE (Unverified Allergy, Intermediate, 02/10/15) Medications: see eMAR Past Medical History Cardiovascular: Reports: HTN, MT, other - congenital heart disease, NSTEMI, pericardial effusion, Pulmonary: Reports: asthma, other - on BiPAP Gastrointestinal/Genitourinary: Reports: CRI, other - acute renal failure, Neurologic/Psychiatric: Reports: CVA, other - seizure disorder Endocrine: Reports: hypothyroidism Hematology/Immune: Reports: anemia, other - rhabdomyolysis Musculoskeletal/Integumentary: Reports: other Other: obesity Anesthesia Pre-op Phys. Exam Physician Exam Last Vital Signs Date Time Temp Pulse Resp B/P (MAP) Pulse Ox O2 Delivery O2 Flow Rate FiO2 01/14/18 06:00 166/87 01/14/18 04:00 98.8 103 21 97 98.8 01/13/18 15:53 Room Air Constitutional: NAD Neurologic: CN 2-12 intact Cardiovascular: RRR Respiratory: CTA Gastrointestinal: S/NT/ND Airway Exam Mallampati Score: Class IV MO: limited Neck: short TMD: 1fb ROM: limited Teeth: missing Anesthesia Pre-op A/P Labs Labs Test 01/12/18 06:20 01/13/18 06:20 White Blood Count 3.7 K/UL (4.8-10.8) 4.8 K/UL (4.8-10.8) Red Blood Count 3.14 M/UL (4.20-5.40) 3.26 M/UL (4.20-5.40) Hemoglobin 8.9 G/DL (12.0-16.0) 9.3 G/DL (12.0-16.0) Hematocrit 27.1 % (37.0-47.0) 28.3 % (37.0-47.0) Mean Corpuscular Volume 86 FL (80-99) 87 FL (80-99) Mean Corpuscular Hemoglobin 28.4 PG (27.0-31.0) 28.6 PG (27.0-31.0) Mean Corpuscular Hemoglobin Concent 32.9 G/DL (32.0-36.0) 33.0 G/DL (32.0-36.0) Red Cell Distribution Width 14.2 % (11.6-14.8) 13.9 % (11.6-14.8) Platelet Count 171 K/UL (150-450) 166 K/UL (150-450) Mean Platelet Volume 8.5 FL (6.5-10.1) 8.1 FL (6.5-10.1) Neutrophils (%) (Auto) 71.9 % (45.0-75.0) 77.5 % (45.0-75.0) Lymphocytes (%) (Auto) 13.8 % (20.0-45.0) 12.7 % (20.0-45.0) Monocytes (%) (Auto) 10.6 % (1.0-10.0) 7.0 % (1.0-10.0) Eosinophils (%) (Auto) 2.9 % (0.0-3.0) 2.1 % (0.0-3.0) Basophils (%) (Auto) 0.8 % (0.0-2.0) 0.6 % (0.0-2.0) Sodium Level 143 MMOL/L (136-145) 141 MMOL/L (136-145) Potassium Level 4.7 MMOL/L (3.5-5.1) 4.3 MMOL/L (3.5-5.1) Chloride Level 113 MMOL/L (98-107) 112 MMOL/L (98-107) Carbon Dioxide Level 21 MMOL/L (21-32) 19 MMOL/L (21-32) Anion Gap 9 mmol/L (5-15) 10 mmol/L (5-15) Blood Urea Nitrogen 26 mg/dL (7-18) 21 mg/dL (7-18) Creatinine 2.7 MG/DL (0.55-1.30) 2.3 MG/DL (0.55-1.30) Estimat Glomerular Filtration Rate 21.1 mL/min (>60) 25.5 mL/min (>60) Glucose Level 123 MG/DL (74-106) 114 MG/DL (74-106) Calcium Level 8.8 MG/DL (8.5-10.1) 9.0 MG/DL (8.5-10.1) Total Bilirubin 0.3 MG/DL (0.2-1.0) 0.2 MG/DL (0.2-1.0) Aspartate Amino Transf (AST/SGOT) 81 U/L (15-37) 77 U/L (15-37) Alanine Aminotransferase (ALT/SGPT) 65 U/L (12-78) 67 U/L (12-78) Alkaline Phosphatase 82 U/L (46-116) 86 U/L (46-116) Total Protein 7.0 G/DL (6.4-8.2) 7.2 G/DL (6.4-8.2) Albumin 2.6 G/DL (3.4-5.0) 2.7 G/DL (3.4-5.0) Globulin 4.4 g/dL 4.5 g/dL Albumin/Globulin Ratio 0.6 (1.0-2.7) 0.6 (1.0-2.7) Risk Assessment & Plan Assessment: asa4 Plan: mac Status Change Before Surgery: No Pre-Antibiotics Drug: SUE Anaya Jan 14, 2018 07:06
[2018-01-14] MEDS: Simethicone 80mg tab ORAL SCH ×2 (08:29→13:07)
[2018-01-14] MEDS: Losartan 50mg tab ORAL SCH (08:31)
[2018-01-14] MEDS: Docusate 100mg cap ORAL SCH ×2 (08:32→17:20)
--- NOTE | 2018-01-14 08:53 | General Progress Note ---
Assessment/Plan Problem List: (1) Acute renal failure (ARF) ICD Codes: N17.9 - Acute kidney failure, unspecified SNOMED: 08084906 (2) Chronic kidney disease, stage III (moderate) ICD Codes: N18.3 - Chronic kidney disease, stage III (moderate) SNOMED: 060001601 (3) Pancytopenia ICD Codes: D61.818 - Pancytopenia SNOMED: 997047897 (4) Abdominal pain in female ICD Codes: R10.9 - Unspecified abdominal pain SNOMED: 62863645 Status: stable, progressing Assessment/Plan ivf renal eval check duplex- r/o dvt. endoscopy monitor h/h monitor labs iv iron replacement transfuse prn increase metoprolol Subjective ROS Limited/Unobtainable: No Constitutional: Reports: malaise, weakness HEENT: Reports: no symptoms Cardiovascular: Reports: no symptoms Respiratory: Reports: no symptoms Gastrointestinal/Abdominal: Reports: no symptoms Genitourinary: Reports: no symptoms Neurologic/Psychiatric: Reports: no symptoms Endocrine: Reports: no symptoms Hematologic/Lymphatic: Reports: no symptoms Allergies: Coded Allergies: ERYTHROMYCIN BASE (Unverified Allergy, Intermediate, 02/10/15) All Systems: reviewed and negative except above Subjective no events. no new complaints. ct noted. h/h better. renal fxn not improved. on ivf. GI appreciated. appetite better. increased hr noted. labs still pending for today Objective Last 24 Hour Vital Signs Date Time Temp Pulse Resp B/P (MAP) Pulse Ox O2 Delivery O2 Flow Rate FiO2 01/14/18 08:32 111 155/96 01/14/18 08:31 155/96 01/14/18 08:30 111 155/96 01/14/18 06:00 166/87 01/14/18 04:00 98.8 103 21 166/87 97 98.8 01/14/18 00:00 99.0 106 20 160/94 96 99.0 01/13/18 20:37 163/91 01/13/18 19:43 98.6 98 21 163/91 96 98.6 01/13/18 15:53 98.6 90 20 167/91 98 Room Air 98.6 01/13/18 15:42 167/91 01/13/18 13:26 158/89 01/13/18 12:00 97.9 93 20 158/89 97 97.9 01/13/18 09:47 111 143/83 01/13/18 09:47 111 143/83 01/13/18 09:46 143/83 Intake and Output 01/13/18 01/14/18 19:00 07:00 Intake Total 330 ml 1675 ml Balance 330 ml 1675 ml Intake Oral 1000 ml IV Total 330 ml 675 ml # Voids 22 # Bowel Movements 2 17 Height (Feet): 5 Height (Inches): 3.00 Weight (Pounds): 236 Objective General Appearance: WD/WN, alert Neck: supple Cardiovascular: normal rate, regular rhythm Respiratory/Chest: chest wall non-tender, lungs clear, normal breath sounds, no respiratory distress Abdomen: normal bowel sounds, non tender, soft, no organomegaly Edema: no edema noted Arm (L), no edema noted Arm (R), no edema noted Leg (L), no edema noted Leg (R), no edema noted Pedal (L), no edema noted Pedal (R), no edema noted Generalized Neurologic: alert, oriented x 3, responsive WILLIE AZEVEDO Jan 14, 2018 08:53
[2018-01-14] MEDS ORDERED: Metoprolol Tartrate 50mg tab ORAL SCH (09:00)
[2018-01-14] MEDS ORDERED: Metoprolol 25mg tab ORAL SCH (09:00)
[2018-01-14] MEDS ORDERED: Atropine Inj 1mg/10ml Syr IV PRN (10:45)
[2018-01-14] MEDS ORDERED: DiphenhydrAMINE 50mg/ml Inj IVP PRN (10:45)
[2018-01-14] MEDS ORDERED: Midazolam 2mg/2ml Inj IVP PRN (10:45)
[2018-01-14] MEDS ORDERED: fentaNYL 100 mcg/2 mL IV PRN (10:45)
[2018-01-14] MEDS ORDERED: Atropine Sulfate 0.4mg/ml inj ONE (11:00)
[2018-01-14] MEDS ORDERED: NS 500ML IV ONE (11:00)
[2018-01-14] MEDS ORDERED: Lidocaine 1% MPF 10mg/ml 5ml ONE (11:00)
[2018-01-14] MEDS ORDERED: Propofol 200mg/20ml IV ONE (11:00)
--- NOTE | 2018-01-14 11:15 | General Progress Note ---
Assessment/Plan Assessment/Plan Assessment - Anemia - OB (+) stools - ? abnormal CT scan in rectal area - Azotemia - obesity - HTN - h/o CVA Recommendations -EGD/Colon today -transfuse PRN - IV Fe Post Procedure - EGD - minimal gastritis (biopsied) - Colon - diminutive descending colon and sigmoid polyps - biopsied off - no cause of anemia identified Rec - clear liquid - capsule Endoscopy in am Subjective Allergies: Coded Allergies: ERYTHROMYCIN BASE (Unverified Allergy, Intermediate, 02/10/15) Subjective Above noted (+) BM with sorbitol NPO for EGD/Colon Objective Last 24 Hour Vital Signs Date Time Temp Pulse Resp B/P (MAP) Pulse Ox O2 Delivery O2 Flow Rate FiO2 01/14/18 08:32 111 155/96 01/14/18 08:31 155/96 01/14/18 08:30 111 155/96 01/14/18 08:00 97.3 111 20 155/96 97 97.3 01/14/18 06:00 166/87 01/14/18 04:00 98.8 103 21 166/87 97 98.8 01/14/18 00:00 99.0 106 20 160/94 96 99.0 01/13/18 20:37 163/91 01/13/18 19:43 98.6 98 21 163/91 96 98.6 01/13/18 15:53 98.6 90 20 167/91 98 Room Air 98.6 01/13/18 15:42 167/91 01/13/18 13:26 158/89 01/13/18 12:00 97.9 93 20 158/89 97 97.9 Intake and Output 01/13/18 01/14/18 19:00 07:00 Intake Total 330 ml 1675 ml Balance 330 ml 1675 ml Intake Oral 1000 ml IV Total 330 ml 675 ml # Voids 22 # Bowel Movements 12 17 Height (Feet): 5 Height (Inches): 3.00 Weight (Pounds): 236 Objective Obese AA woman NCAT supple CTA RRR Abd obese soft NT no edema MARIA DE JESUS DAUGHERTY Jan 14, 2018 11:15
--- NOTE | 2018-01-14 11:16 | Pre-Procedure Note/Attestation ---
Pre-Procedure Note/Attestation Complete Prior to Procedure Planned Procedure: not applicable Procedure Narrative: EGD Colon Indications for Procedure Pre-Operative Diagnosis: HEME (+) Attestation I attest that I discussed the nature of the procedure; its benefits; risks and complications; and alternatives (and the risks and benefits of such alternatives ), prior to the procedure, with the patient (or the patient's legal field sales representative). I attest that, if there was a reasonable possibility of needing a blood transfusion, the patient (or the patient's legal field sales representative) was given the [facility] standardized written summary, pursuant to the [place] Jakub Blood Safety Act ([place] Health and Safety Code # 1645, as amended). I attest that I re-evaluated the patient just prior to the surgery and that there has been no change in the patient's H&P, except as documented below: MARIA DE JESUS DAUGHERTY Jan 14, 2018 11:16
--- NOTE | 2018-01-14 12:15 | Immediate Post-Op Evaluation ---
Immediate Post-Op Evalulation Immediate Post-Op Evalulation Procedure: egd/colonoscopy Date of Evaluation: Jan 14, 2018 Time of Evaluation: 12:14 IV Fluids: 350ml Blood Products: none Estimated Blood Loss: negligible Blood Pressure Systolic: 148 Blood Pressure Diastolic: 94 Pulse Rate: 92 Respiratory Rate: 18 O2 Sat by Pulse Oximetry: 98 Temperature (Fahrenheit): 98.1 Pain Score (1-10): 3 Nausea: No Vomiting: No Complications none Patient Status: awake, reacts, patent Hydration Status: adequate Drug: SUE Anaya Jan 14, 2018 12:14
--- NOTE | 2018-01-14 12:16 | 48 Hour Post Anesthesia Eval ---
Post Anesthesia Evaluation Procedure: egd/colonoscopy Date of Evaluation: Jan 14, 2018 Time of Evaluation: 12:16 Blood Pressure Systolic: 146 0: 84 Pulse Rate: 90 Respiratory Rate: 18 Temperature (Fahrenheit): 98.1 O2 Sat by Pulse Oximetry: 98 Airway: patent Nausea: No Vomiting: No Pain Intensity: 0 Hydration Status: adequate Cardiopulmonary Status: stable Mental Status/LOC: patient returned to baseline Post-Anesthesia Complications: none Follow-up care needed: N/A SUE MARTIN Jan 14, 2018 12:16
[2018-01-14] MEDS: Iron Sucrose 100 MG in NS 55 ML IVPB SCH (21:02)
--- NOTE | 2018-01-14 22:00 | Consultation ---
DATE OF CONSULTATION: 01/14/2018 NEPHROLOGY CONSULTATION REFERRING PHYSICIAN: Chema Hendricks M.D. REASON FOR CONSULTATION: Elevated BUN and creatinine. HISTORY OF PRESENT ILLNESS: The patient was admitted on 01/09/2018 with generalized malaise and dehydration. She is a 72-year-old lady with a history of hypertension and prior CVA. Old records were reviewed, and in January of 2015 during an admission, she had creatinine of 1.8 to 1.9. In May of 2015, she had rhabdomyolysis severe and had creatinine of 4.2 to 5.8 during that admission. I do not know what her recent baseline is. The patient is a poor historian and during this admission she has had GI evaluations and IV hydration. She also had a renal ultrasound showing evidence of chronic medical renal disease with small bilateral renal cysts. MEDICATIONS: Home medications not available at this time. The patient is unable to provide. Her current medications in the hospital include Venofer, IV fluids, Tylenol, amlodipine, atropine, clonidine, diphenhydramine, DSS, , hydralazine, levothyroxine, losartan, metoprolol, Mylanta, ondansetron, Protonix, simethicone, sorbitol, and zolpidem. ALLERGIES: Erythromycin. HABITS: She smoked in the past many years ago and quit. Alcohol, social in the past, not recently. REVIEW OF SYSTEMS: HEENT: She wears eye glasses. No glaucoma or cataracts. Hearing is good. ENDOCRINE: History of obesity and hypothyroidism. No known diabetes. PULMONARY: Denies asthma, TB, or chronic cough. CARDIAC: Denies myocardial infarction. She has had vague chest pains in the past. GASTROINTESTINAL: She has had nausea and anorexia prior to this admission. GENITOURINARY: No dysuria or hematuria. NEUROLOGIC: History of a prior CVA with left-sided weakness. PHYSICAL EXAMINATION: GENERAL: The patient is alert, obese lady, lying in bed, in no acute distress. VITAL SIGNS: Temperature 98.3 degrees, pulse 88, respirations 16, and blood pressure 154/83. HEENT: Sclerae are nonicteric. Ocular motions intact in all directions. The tongue is coated. NECK: No adenopathy or thyroid enlargement. LUNGS: Clear. HEART: Regular rhythm. I hear no murmur. ABDOMEN: Obese and soft. No organomegaly or masses. EXTREMITIES: No edema except there are some degenerative changes at the knees. NEUROLOGIC: She is alert and responsive. There is mild dysarthria. Smile symmetric. Tongue is midline. She moves all extremities. PERTINENT LABORATORY AND DIAGNOSTIC DATA: Most recent sodium 141, potassium 4.3, chloride 112, CO2 19, BUN 21, and creatinine 2.3. On admission, BUN 29 and creatinine 2.8. Albumin is 2.8. Total CK was 563. TSH is 1.15. Urinalysis is significant for proteinuria 3+ and 5 to 10 red cells and 2 to 4 white cells per high-power field. IMPRESSION: The patient has chronic kidney disease, likely stage 3 to 4, the etiology is not clear, but likely hypertensive nephrosclerosis. She has had prior episodes of acute kidney injury due to rhabdomyolysis, there is likely acute kidney injury on this admission due to dehydration. PLAN: At this time, I would continue hydration and monitor renal function, try to get her baseline renal function from Dr. Hendricks's office. Avoid nephrotoxic agents. I would continue TESS or ARBs as long as her potassium is doing okay and make sure she is not to receive any nonsteroidal anti-inflammatory agents in the outpatient setting. We could consider a kidney biopsy, but in view of her obesity and chronicity of her kidney disease, I am not sure this would be productive. This will be discussed further with Dr. Hendricks. Jose Lemus M.D. DR: KIZZY JOB#: [id number] CC:
[2018-01-15] VITALS (7 sets, daily range): BP systolic 121–160; BP diastolic 67–84
[2018-01-15] MEDS: Zolpidem 5mg tab ORAL PRN (00:49)
--- NOTE | 2018-01-15 03:45 | Procedure Note ---
DATE OF PROCEDURE: 01/14/2018 PROCEDURE: Upper gastrointestinal endoscopy with biopsy as well as colonoscopy with biopsy. SURGEON: Mina Rao M.D. ANESTHESIA: Please see the separate anesthesiologist notes for details. PRE-ENDOSCOPIC DIAGNOSIS: Anemia. POST-ENDOSCOPIC DIAGNOSES: 1. Minimal gastritis, status post biopsy. 2. Diminutive descending colon and sigmoid colon polyp, status post biopsy and removal. 3. Normal terminal ileum. 4. No pathology found to explain the patient's anemia. DESCRIPTION OF PROCEDURE: The procedure, its risks, indications, alternatives, and possible complications were explained and informed consent was obtained. The patient was then sedated in the left lateral decubitus position where a diagnostic upper endoscope was introduced through the oropharynx and advanced to the duodenum. Examination only showed minimal gastritis in the antrum, which was biopsied. No ulcers or other lesions were identified to explain the patient's anemia. The endoscope was removed. The colonoscope was introduced into the rectum and advanced to the terminal ileum. The colonoscope was then gradually withdrawn and the mucosa was examined carefully. Examination of the terminal ileum did not show any abnormalities. In the ascending colon as well as sigmoid colon, there were one and two diminutive polyps respectively, which were removed with biopsy forceps. There were no masses or arteriovenous malformations or other abnormalities to explain the patient's anemia. The colonoscope was removed and the patient was sent to recovery in good condition. COMPLICATIONS: None. ASSESSMENT: This examination was notable for above incidental findings, but there is no clear explanation to the patient's anemia. A capsule endoscopy examination will be done to evaluate the small bowel for any source of blood loss. RECOMMENDATIONS: 1. Continue clear liquid diet. 2. Capsule endoscopy examination tomorrow. Mina Rao M.D. DR: MIGUELINA JOB#: [id number] CC: YUE
[2018-01-15] MEDS: HydrALAZINE 50mg tab ORAL SCH ×3 (05:48→20:41)
[2018-01-15] MEDS: Levothyroxine 125mcg tab ORAL SCH (05:48)
[2018-01-15 06:56] LABS: BASOPHILS % (AUTO) 0.8 % (0.0-2.0); EOSINOPHILS % (AUTO) 2.4 % (0.0-3.0); HEMATOCRIT 26.3 % (37.0-47.0); HEMOGLOBIN 8.4 G/DL (12.0-16.0); LYMPHOCYTES % (AUTO) 14.1 % (20.0-45.0); MEAN CORPUSCULAR VOLUME 88 FL (80-99); MONOCYTES % (AUTO) 11.2 % (1.0-10.0); NEUTROPHILS % (AUTO) 71.5 % (45.0-75.0); PLATELET COUNT 153 K/UL (150-450); RED BLOOD COUNT 2.98 M/UL (4.20-5.40); RED CELL DISTRIBUTION WIDTH 14.3 % (11.6-14.8); WHITE BLOOD COUNT 3.5 K/UL (4.8-10.8)
[2018-01-15 07:31] LABS: ALANINE AMINOTRANSFERASE 57 U/L (12-78); ALBUMIN 2.6 G/DL (3.4-5.0); ALBUMIN/GLOBULIN RATIO 0.6 (1.0-2.7); ALKALINE PHOSPHATASE 80 U/L (46-116); ANION GAP 11 mmol/L (5-15); ASPARTATE AMINO TRANSFERASE 64 U/L (15-37); BILIRUBIN,TOTAL 0.3 MG/DL (0.2-1.0); BLOOD UREA NITROGEN 15 mg/dL (7-18); CALCIUM 8.5 MG/DL (8.5-10.1); CARBON DIOXIDE 18 MMOL/L (21-32); CHLORIDE 115 MMOL/L (98-107); CREATININE 2.4 MG/DL (0.55-1.30); POTASSIUM 4.1 MMOL/L (3.5-5.1); SODIUM 144 MMOL/L (136-145)
[2018-01-15 07:44] LABS: CREATINE KINASE 297 U/L (26-308)
--- NOTE | 2018-01-15 08:42 | General Progress Note ---
Assessment/Plan Problem List: (1) Acute renal failure (ARF) ICD Codes: N17.9 - Acute kidney failure, unspecified SNOMED: 25322231 (2) Chronic kidney disease, stage III (moderate) ICD Codes: N18.3 - Chronic kidney disease, stage III (moderate) SNOMED: 392904810 (3) Pancytopenia ICD Codes: D61.818 - Pancytopenia SNOMED: 331060430 (4) Abdominal pain in female ICD Codes: R10.9 - Unspecified abdominal pain SNOMED: 69889474 Status: stable Assessment/Plan ivf renal work up check duplex- r/o dvt. capsule endoscopy monitor h/h monitor labs iv iron replacement add epo transfuse prn increase metoprolol Subjective ROS Limited/Unobtainable: No Constitutional: Reports: malaise, weakness HEENT: Reports: no symptoms Cardiovascular: Reports: no symptoms Respiratory: Reports: no symptoms Gastrointestinal/Abdominal: Reports: no symptoms Genitourinary: Reports: no symptoms Neurologic/Psychiatric: Reports: no symptoms Endocrine: Reports: no symptoms Hematologic/Lymphatic: Reports: no symptoms Allergies: Coded Allergies: ERYTHROMYCIN BASE (Unverified Allergy, Intermediate, 02/10/15) All Systems: reviewed and negative except above Subjective no events. endoscopy results noted. no new complaints. renal appreciated. Objective Last 24 Hour Vital Signs Date Time Temp Pulse Resp B/P (MAP) Pulse Ox O2 Delivery O2 Flow Rate FiO2 01/15/18 05:48 137/73 01/15/18 04:00 98.8 98 21 137/73 91 98.8 01/15/18 04:00 94 Room Air 01/15/18 00:00 98.4 99 18 155/79 94 98.4 01/15/18 00:00 94 Room Air 01/14/18 21:06 164/77 01/14/18 20:00 98.6 93 20 164/77 94 98.6 01/14/18 20:00 94 Room Air 01/14/18 17:20 168/98 01/14/18 16:15 98.0 90 19 168/98 96 Room Air 98.0 01/14/18 13:07 154/83 01/14/18 12:25 98.3 88 16 154/83 100 Nasal Cannula 3.0 98.3 01/14/18 12:16 208.6 90 18 98 01/14/18 12:15 208.6 92 18 98 01/14/18 12:12 91 13 151/85 100 Nasal Cannula 3.0 01/14/18 12:07 92 25 159/91 100 Simple Mask 6.0 01/14/18 12:02 98.1 92 14 148/94 100 Simple Mask 6.0 98.1 Intake and Output 01/14/18 01/15/18 19:00 07:00 Intake Total 950 ml 840 ml Balance 950 ml 840 ml IV Total 950 ml 840 ml # Voids 5 3 # Bowel Movements 4 Laboratory Tests 01/14/18 17:50: Urine Random Creatinine [Pending], Urine Random Microalbumin [Pending], Urine Random Total Protein 243H, Urine Random Sodium 132H, Urine Creatinine 102.6, Urine Microalbumin/Creatinine Ratio [Pending] 01/15/18 05:40: White Blood Count 3.5L, Red Blood Count 2.98L, Hemoglobin 8.4L, Hematocrit 26.3L , Mean Corpuscular Volume 88, Mean Corpuscular Hemoglobin 28.3, Mean Corpuscular Hemoglobin Concent 32.1, Red Cell Distribution Width 14.3, Platelet Count 153, Mean Platelet Volume 7.8, Neutrophils (%) (Auto) 71.5, Lymphocytes (% ) (Auto) 14.1L, Monocytes (%) (Auto) 11.2H, Eosinophils (%) (Auto) 2.4, Basophils (%) (Auto) 0.8, Sodium Level 144, Potassium Level 4.1, Chloride Level 115H, Carbon Dioxide Level 18L, Anion Gap 11, Blood Urea Nitrogen 15, Creatinine 2.4H, Estimat Glomerular Filtration Rate 24.2, Glucose Level 80, Uric Acid 8.2H, Calcium Level 8.5, Total Bilirubin 0.3, Aspartate Amino Transf ( AST/SGOT) 64H, Alanine Aminotransferase (ALT/SGPT) 57, Alkaline Phosphatase 80, Total Creatine Kinase 297, Total Protein 6.9, Albumin 2.6L, Globulin 4.3, Albumin/Globulin Ratio 0.6L Height (Feet): 5 Height (Inches): 3.00 Weight (Pounds): 236 Objective General Appearance: WD/WN, alert Neck: supple Cardiovascular: normal rate, regular rhythm Respiratory/Chest: chest wall non-tender, lungs clear, normal breath sounds, no respiratory distress Abdomen: normal bowel sounds, non tender, soft, no organomegaly Edema: no edema noted Arm (L), no edema noted Arm (R), no edema noted Leg (L), no edema noted Leg (R), no edema noted Pedal (L), no edema noted Pedal (R), no edema noted Generalized Neurologic: alert, oriented x 3, responsive WILLIE AZEVEDO Jan 15, 2018 08:42
[2018-01-15] MEDS ORDERED: Metoprolol 25mg tab ORAL SCH (09:00)
[2018-01-15] MEDS: Docusate 100mg cap ORAL SCH ×2 (09:00→17:36)
[2018-01-15] MEDS: Losartan 50mg tab ORAL SCH (09:00)
--- NOTE | 2018-01-15 12:54 | Nephrology Progress Note ---
Assessment/Plan Problem List: (1) Anemia in chronic kidney disease (2) Pancytopenia (3) Chronic kidney disease, stage III (moderate) (4) Proteinuria Plan meds reviewed for ckd, epogen for anemia may need chronically Subjective Constitutional: Reports: weakness HEENT: Reports: no symptoms Genitourinary: Reports: no symptoms Neurologic/Psychiatric: Reports: pre-existing deficit Objective Objective Last 24 Hour Vital Signs Date Time Temp Pulse Resp B/P (MAP) Pulse Ox O2 Delivery O2 Flow Rate FiO2 01/15/18 12:34 121/84 01/15/18 12:00 98.5 103 20 121/84 97 98.5 01/15/18 09:00 98 137/73 01/15/18 09:00 137/73 01/15/18 09:00 98 137/73 01/15/18 08:00 98.2 102 20 160/67 94 98.2 01/15/18 05:48 137/73 01/15/18 04:00 98.8 98 21 137/73 91 98.8 01/15/18 04:00 94 Room Air 01/15/18 00:00 98.4 99 18 155/79 94 98.4 01/15/18 00:00 94 Room Air 01/14/18 21:06 164/77 01/14/18 20:00 98.6 93 20 164/77 94 98.6 01/14/18 20:00 94 Room Air 01/14/18 17:20 168/98 01/14/18 16:15 98.0 90 19 168/98 96 Room Air 98.0 01/14/18 13:07 154/83 Intake and Output 01/14/18 01/15/18 19:00 07:00 Intake Total 950 ml 840 ml Balance 950 ml 840 ml IV Total 950 ml 840 ml # Voids 5 3 # Bowel Movements 4 Laboratory Tests 01/14/18 17:50: Urine Random Creatinine [Pending], Urine Random Microalbumin [Pending], Urine Random Total Protein 243H, Urine Random Sodium 132H, Urine Creatinine 102.6, Urine Microalbumin/Creatinine Ratio [Pending] 01/15/18 05:40: White Blood Count 3.5L, Red Blood Count 2.98L, Hemoglobin 8.4L, Hematocrit 26.3L , Mean Corpuscular Volume 88, Mean Corpuscular Hemoglobin 28.3, Mean Corpuscular Hemoglobin Concent 32.1, Red Cell Distribution Width 14.3, Platelet Count 153, Mean Platelet Volume 7.8, Neutrophils (%) (Auto) 71.5, Lymphocytes (% ) (Auto) 14.1L, Monocytes (%) (Auto) 11.2H, Eosinophils (%) (Auto) 2.4, Basophils (%) (Auto) 0.8, Sodium Level 144, Potassium Level 4.1, Chloride Level 115H, Carbon Dioxide Level 18L, Anion Gap 11, Blood Urea Nitrogen 15, Creatinine 2.4H, Estimat Glomerular Filtration Rate 24.2, Glucose Level 80, Uric Acid 8.2H, Calcium Level 8.5, Total Bilirubin 0.3, Aspartate Amino Transf ( AST/SGOT) 64H, Alanine Aminotransferase (ALT/SGPT) 57, Alkaline Phosphatase 80, Total Creatine Kinase 297, Total Protein 6.9, Albumin 2.6L, Globulin 4.3, Albumin/Globulin Ratio 0.6L Height (Feet): 5 Height (Inches): 3.00 Weight (Pounds): 236 General Appearance: morbidly obese EENT: normal ENT inspection Neck: non-tender, normal alignment Cardiovascular: regular rhythm Respiratory/Chest: lungs clear, normal breath sounds Abdomen: soft, no organomegaly Extremities: trace edema Neurologic: clinical care leader II-XII grossly normal ENZO NEWELL Jan 15, 2018 12:54
--- NOTE | 2018-01-15 20:26 | General Progress Note ---
Assessment/Plan Assessment/Plan Assessment - Anemia - OB (+) stools - negative EGD/Colon - Azotemia - obesity - HTN - h/o CVA Recommendations - push po - follow CBC - transfuse PRN - IV Fe - f/u capsule results Subjective Allergies: Coded Allergies: ERYTHROMYCIN BASE (Unverified Allergy, Intermediate, 02/10/15) Subjective Above noted feels OK s/p capsule endoscopy Objective Last 24 Hour Vital Signs Date Time Temp Pulse Resp B/P (MAP) Pulse Ox O2 Delivery O2 Flow Rate FiO2 01/15/18 20:00 98.4 94 22 160/80 97 98.4 01/15/18 18:10 98.5 103 22 159/83 97 Room Air 98.5 01/15/18 15:44 98.6 103 21 160/83 97 Room Air 98.6 01/15/18 12:34 121/84 01/15/18 12:00 98.5 103 20 121/84 97 98.5 01/15/18 09:00 98 137/73 01/15/18 09:00 137/73 01/15/18 09:00 98 137/73 01/15/18 08:00 98.2 102 20 160/67 94 98.2 01/15/18 05:48 137/73 01/15/18 04:00 98.8 98 21 137/73 91 98.8 01/15/18 04:00 94 Room Air 01/15/18 00:00 98.4 99 18 155/79 94 98.4 01/15/18 00:00 94 Room Air 01/14/18 21:06 164/77 Intake and Output 01/14/18 01/15/18 19:00 07:00 Intake Total 950 ml 840 ml Balance 950 ml 840 ml IV Total 950 ml 840 ml # Voids 5 3 # Bowel Movements 4 Laboratory Tests 01/15/18 05:40: White Blood Count 3.5L, Red Blood Count 2.98L, Hemoglobin 8.4L, Hematocrit 26.3L , Mean Corpuscular Volume 88, Mean Corpuscular Hemoglobin 28.3, Mean Corpuscular Hemoglobin Concent 32.1, Red Cell Distribution Width 14.3, Platelet Count 153, Mean Platelet Volume 7.8, Neutrophils (%) (Auto) 71.5, Lymphocytes (% ) (Auto) 14.1L, Monocytes (%) (Auto) 11.2H, Eosinophils (%) (Auto) 2.4, Basophils (%) (Auto) 0.8, Sodium Level 144, Potassium Level 4.1, Chloride Level 115H, Carbon Dioxide Level 18L, Anion Gap 11, Blood Urea Nitrogen 15, Creatinine 2.4H, Estimat Glomerular Filtration Rate 24.2, Glucose Level 80, Uric Acid 8.2H, Calcium Level 8.5, Total Bilirubin 0.3, Aspartate Amino Transf ( AST/SGOT) 64H, Alanine Aminotransferase (ALT/SGPT) 57, Alkaline Phosphatase 80, Total Creatine Kinase 297, Total Protein 6.9, Albumin 2.6L, Globulin 4.3, Albumin/Globulin Ratio 0.6L Height (Feet): 5 Height (Inches): 3.00 Weight (Pounds): 236 Objective Obese AA woman NCAT supple CTA RRR Abd obese soft NT no edema MARIA DE JESUS DAUGHERTY Jan 15, 2018 20:26
[2018-01-15] MEDS: Iron Sucrose 100 MG in NS 55 ML IVPB SCH (20:41)
[2018-01-16] VITALS: BP 150/75
[2018-01-16 04:00] VITALS: BP 164/88
[2018-01-16] MEDS: Levothyroxine 125mcg tab ORAL SCH (06:23)
[2018-01-16] MEDS: HydrALAZINE 50mg tab ORAL SCH ×3 (06:23→20:28)
[2018-01-16 08:04] VITALS: BP 177/89
--- NOTE | 2018-01-16 08:43 | General Progress Note ---
Assessment/Plan Problem List: (1) Acute renal failure (ARF) ICD Codes: N17.9 - Acute kidney failure, unspecified SNOMED: 06642807 (2) Chronic kidney disease, stage III (moderate) ICD Codes: N18.3 - Chronic kidney disease, stage III (moderate) SNOMED: 568869654 (3) Pancytopenia ICD Codes: D61.818 - Pancytopenia SNOMED: 940803214 (4) Abdominal pain in female ICD Codes: R10.9 - Unspecified abdominal pain SNOMED: 16925066 Status: stable, progressing, tolerating diet Assessment/Plan ivf follow up labs capsule endoscopy monitor h/h monitor labs iv iron replacement add epo transfuse prn increase metoprolol dc planning today if labs ok Subjective ROS Limited/Unobtainable: No Constitutional: Reports: malaise, weakness HEENT: Reports: no symptoms Cardiovascular: Reports: no symptoms Respiratory: Reports: no symptoms Gastrointestinal/Abdominal: Reports: no symptoms Genitourinary: Reports: no symptoms Neurologic/Psychiatric: Reports: no symptoms Endocrine: Reports: no symptoms Hematologic/Lymphatic: Reports: no symptoms Allergies: Coded Allergies: ERYTHROMYCIN BASE (Unverified Allergy, Intermediate, 02/10/15) All Systems: reviewed and negative except above Subjective no events. feels better. on ivf. awaiting am labs. Objective Last 24 Hour Vital Signs Date Time Temp Pulse Resp B/P (MAP) Pulse Ox O2 Delivery O2 Flow Rate FiO2 01/16/18 08:04 97.5 108 20 177/89 97 Room Air 97.5 01/16/18 06:23 164/88 01/16/18 05:24 164/88 01/16/18 04:00 98.6 105 20 164/88 96 98.6 01/16/18 04:00 96 Room Air 01/16/18 00:00 98.4 108 22 150/75 98 98.4 01/16/18 00:00 98 Room Air 01/15/18 20:41 160/80 01/15/18 20:00 98.4 94 22 160/80 97 98.4 01/15/18 20:00 97 Room Air 01/15/18 18:10 98.5 103 22 159/83 97 Room Air 98.5 01/15/18 15:44 98.6 103 21 160/83 97 Room Air 98.6 01/15/18 12:34 121/84 01/15/18 12:00 98.5 103 20 121/84 97 98.5 01/15/18 09:00 98 137/73 01/15/18 09:00 137/73 01/15/18 09:00 98 137/73 Intake and Output 01/15/18 01/16/18 19:00 07:00 Intake Total 1530 ml 360 ml Balance 1530 ml 360 ml Intake Oral 960 ml IV Total 570 ml 360 ml # Voids 8 2 Height (Feet): 5 Height (Inches): 3.00 Weight (Pounds): 236 Objective General Appearance: WD/WN, alert Neck: supple Cardiovascular: normal rate, regular rhythm Respiratory/Chest: chest wall non-tender, lungs clear, normal breath sounds, no respiratory distress Abdomen: normal bowel sounds, non tender, soft, no organomegaly Edema: no edema noted Arm (L), no edema noted Arm (R), no edema noted Leg (L), no edema noted Leg (R), no edema noted Pedal (L), no edema noted Pedal (R), no edema noted Generalized Neurologic: alert, oriented x 3, responsive WILLIE AZEVEDO Jan 16, 2018 08:43
[2018-01-16 08:51] LABS: HEMATOCRIT 26.5 % (37.0-47.0); HEMOGLOBIN 8.6 G/DL (12.0-16.0); MEAN CORPUSCULAR VOLUME 87 FL (80-99); PLATELET COUNT 143 K/UL (150-450); RED BLOOD COUNT 3.04 M/UL (4.20-5.40); RED CELL DISTRIBUTION WIDTH 13.8 % (11.6-14.8); WHITE BLOOD COUNT 3.3 K/UL (4.8-10.8)
[2018-01-16] MEDS: Docusate 100mg cap ORAL SCH ×2 (09:00→18:15)
[2018-01-16] MEDS: Losartan 50mg tab ORAL SCH ×2 (09:00→13:21)
[2018-01-16] MEDS: Metoprolol 25mg tab ORAL SCH ×2 (09:00→13:22)
[2018-01-16 09:03] LABS: ALANINE AMINOTRANSFERASE 53 U/L (12-78); ALBUMIN 2.6 G/DL (3.4-5.0); ALBUMIN/GLOBULIN RATIO 0.6 (1.0-2.7); ALKALINE PHOSPHATASE 80 U/L (46-116); ANION GAP 10 mmol/L (5-15); ASPARTATE AMINO TRANSFERASE 58 U/L (15-37); BILIRUBIN,TOTAL 0.3 MG/DL (0.2-1.0); BLOOD UREA NITROGEN 15 mg/dL (7-18); CALCIUM 8.7 MG/DL (8.5-10.1); CARBON DIOXIDE 20 MMOL/L (21-32); CHLORIDE 114 MMOL/L (98-107); CREATININE 2.2 MG/DL (0.55-1.30); POTASSIUM 4.2 MMOL/L (3.5-5.1); SODIUM 144 MMOL/L (136-145)
[2018-01-16 11:49] VITALS: BP 172/88
--- NOTE | 2018-01-16 13:01 | Diagnostic Imaging Report ---
APPROVED REPORT CPT Code: 69342 Present Symptoms Comments: R/O DVT BILATERAL: Imaging reveals a patent deep venous system bilaterally. There is no evidence of thrombus within the femoral, popliteal or tibial segments. The greater saphenous veins are also within normal limits. Doppler indicates normal spontaneous flow within these segments.
--- NOTE | 2018-01-16 14:28 | Nephrology Progress Note ---
Assessment/Plan Problem List: (1) Anemia in chronic kidney disease (2) Pancytopenia (3) Chronic kidney disease, stage III (moderate) (4) Proteinuria Plan meds reviewed for ckd, epogen for anemia may need chronically, creatinine was 2.3 08/2017 little change, titrate bp meds Subjective Constitutional: Reports: weakness Genitourinary: Reports: no symptoms Neurologic/Psychiatric: Reports: no symptoms Objective Objective Last 24 Hour Vital Signs Date Time Temp Pulse Resp B/P (MAP) Pulse Ox O2 Delivery O2 Flow Rate FiO2 01/16/18 13:54 179/90 01/16/18 13:22 105 172/88 01/16/18 13:22 172/88 01/16/18 13:22 105 172/88 01/16/18 13:21 172/88 01/16/18 11:49 97.9 105 18 172/88 99 Room Air 97.9 01/16/18 08:04 97.5 108 20 177/89 97 Room Air 97.5 01/16/18 06:23 164/88 01/16/18 05:24 164/88 01/16/18 04:00 98.6 105 20 164/88 96 98.6 01/16/18 04:00 96 Room Air 01/16/18 00:00 98.4 108 22 150/75 98 98.4 01/16/18 00:00 98 Room Air 01/15/18 20:41 160/80 01/15/18 20:00 98.4 94 22 160/80 97 98.4 01/15/18 20:00 97 Room Air 01/15/18 18:10 98.5 103 22 159/83 97 Room Air 98.5 01/15/18 15:44 98.6 103 21 160/83 97 Room Air 98.6 Intake and Output 01/15/18 01/16/18 19:00 07:00 Intake Total 1530 ml 360 ml Balance 1530 ml 360 ml Intake Oral 960 ml IV Total 570 ml 360 ml # Voids 8 2 Laboratory Tests 01/16/18 08:20: White Blood Count 3.3L, Red Blood Count 3.04L, Hemoglobin 8.6L, Hematocrit 26.5L , Mean Corpuscular Volume 87, Mean Corpuscular Hemoglobin 28.1, Mean Corpuscular Hemoglobin Concent 32.3, Red Cell Distribution Width 13.8, Platelet Count 143L, Mean Platelet Volume 7.7, Neutrophils (%) (Auto) , Lymphocytes (%) ( Auto) , Monocytes (%) (Auto) , Eosinophils (%) (Auto) , Basophils (%) (Auto) , Differential Total Cells Counted 100, Neutrophils % (Manual) 73, Lymphocytes % ( Manual) 17L, Monocytes % (Manual) 7, Eosinophils % (Manual) 2, Basophils % ( Manual) 0, Band Neutrophils 1, Platelet Estimate DecreasedL, Platelet Morphology Normal, Hypochromasia 1+, Reticulocyte Count 1.4, Sodium Level 144, Potassium Level 4.2, Chloride Level 114H, Carbon Dioxide Level 20L, Anion Gap 10 , Blood Urea Nitrogen 15, Creatinine 2.2H, Estimat Glomerular Filtration Rate 26.7, Glucose Level 92, Calcium Level 8.7, Total Bilirubin 0.3, Aspartate Amino Transf (AST/SGOT) 58H, Alanine Aminotransferase (ALT/SGPT) 53, Alkaline Phosphatase 80, Total Protein 6.7, Albumin 2.6L, Globulin 4.1, Albumin/Globulin Ratio 0.6L Height (Feet): 5 Height (Inches): 3.00 Weight (Pounds): 236 General Appearance: morbidly obese EENT: normal ENT inspection Neck: normal alignment Cardiovascular: normal rate, regular rhythm Respiratory/Chest: lungs clear Abdomen: non tender, soft Extremities: trace edema ENZO NEWELL Jan 16, 2018 14:28
[2018-01-16 16:00] VITALS: BP 162/79
[2018-01-16 20:00] VITALS: BP 139/74
--- NOTE | 2018-01-16 20:56 | General Progress Note ---
Assessment/Plan Assessment/Plan Assessment - Anemia - now H&H stable - OB (+) stools - negative EGD/Colon - Azotemia - obesity - HTN - h/o CVA Recommendations - push po - follow CBC - transfuse PRN - IV Fe - f/u capsule results - d/c planning per PMD Subjective Allergies: Coded Allergies: ERYTHROMYCIN BASE (Unverified Allergy, Intermediate, 02/10/15) Subjective Above noted feels OK s/p capsule endoscopy - reading pending Objective Last 24 Hour Vital Signs Date Time Temp Pulse Resp B/P (MAP) Pulse Ox O2 Delivery O2 Flow Rate FiO2 01/16/18 20:28 139/74 01/16/18 20:00 98.5 75 20 139/74 94 Room Air 98.5 01/16/18 18:16 162/79 01/16/18 16:00 98.7 98 20 162/79 98.7 01/16/18 13:54 179/90 01/16/18 13:22 105 172/88 01/16/18 13:22 172/88 01/16/18 13:22 105 172/88 01/16/18 13:21 172/88 01/16/18 11:49 97.9 105 18 172/88 99 Room Air 97.9 01/16/18 08:04 97.5 108 20 177/89 97 Room Air 97.5 01/16/18 06:23 164/88 01/16/18 05:24 164/88 01/16/18 04:00 98.6 105 20 164/88 96 98.6 01/16/18 04:00 96 Room Air 01/16/18 00:00 98.4 108 22 150/75 98 98.4 01/16/18 00:00 98 Room Air Intake and Output 01/15/18 01/16/18 19:00 07:00 Intake Total 1530 ml 360 ml Balance 1530 ml 360 ml Intake Oral 960 ml IV Total 570 ml 360 ml # Voids 8 2 Laboratory Tests 01/16/18 08:20: White Blood Count 3.3L, Red Blood Count 3.04L, Hemoglobin 8.6L, Hematocrit 26.5L , Mean Corpuscular Volume 87, Mean Corpuscular Hemoglobin 28.1, Mean Corpuscular Hemoglobin Concent 32.3, Red Cell Distribution Width 13.8, Platelet Count 143L, Mean Platelet Volume 7.7, Neutrophils (%) (Auto) , Lymphocytes (%) ( Auto) , Monocytes (%) (Auto) , Eosinophils (%) (Auto) , Basophils (%) (Auto) , Differential Total Cells Counted 100, Neutrophils % (Manual) 73, Lymphocytes % ( Manual) 17L, Monocytes % (Manual) 7, Eosinophils % (Manual) 2, Basophils % ( Manual) 0, Band Neutrophils 1, Platelet Estimate DecreasedL, Platelet Morphology Normal, Hypochromasia 1+, Reticulocyte Count 1.4, Sodium Level 144, Potassium Level 4.2, Chloride Level 114H, Carbon Dioxide Level 20L, Anion Gap 10 , Blood Urea Nitrogen 15, Creatinine 2.2H, Estimat Glomerular Filtration Rate 26.7, Glucose Level 92, Calcium Level 8.7, Total Bilirubin 0.3, Aspartate Amino Transf (AST/SGOT) 58H, Alanine Aminotransferase (ALT/SGPT) 53, Alkaline Phosphatase 80, Total Protein 6.7, Albumin 2.6L, Globulin 4.1, Albumin/Globulin Ratio 0.6L Height (Feet): 5 Height (Inches): 3.00 Weight (Pounds): 236 Objective Obese AA woman NCAT supple CTA RRR Abd obese soft NT no edema MARIA DE JESUS DAUGHERTY Jan 16, 2018 20:56
[2018-01-16] MEDS ORDERED: Epogen (for non ESRD use) SUBQ SCH (21:00)
[2018-01-17] VITALS: BP_SYST 130; BP_SYST 131; BP_DIAS 67; BP_DIAS 86
[2018-01-17 04:00] VITALS: BP 141/75
[2018-01-17] MEDS: Levothyroxine 125mcg tab ORAL SCH (06:13)
[2018-01-17] MEDS: HydrALAZINE 50mg tab ORAL SCH ×2 (06:14→13:13)
[2018-01-17 07:07] LABS: ANION GAP 11 mmol/L (5-15); BLOOD UREA NITROGEN 20 mg/dL (7-18); CARBON DIOXIDE 19 MMOL/L (21-32); CHLORIDE 113 MMOL/L (98-107); CREATININE 2.4 MG/DL (0.55-1.30); SODIUM 142 MMOL/L (136-145)
[2018-01-17 08:00] VITALS: BP 115/72
[2018-01-17] MEDS ORDERED: LEVOTHYROXINE125 MCG ORAL (08:57)
[2018-01-17] MEDS ORDERED: LOPRESSOR25 M1 ORAL (08:57)
[2018-01-17] MEDS: Docusate 100mg cap ORAL SCH (09:02)
[2018-01-17] MEDS: Metoprolol 25mg tab ORAL SCH (09:03)
[2018-01-17] MEDS: Losartan 50mg tab ORAL SCH (09:04)
[2018-01-17 09:41] LABS: BASOPHILS % (AUTO) 0.7 % (0.0-2.0); EOSINOPHILS % (AUTO) 2.9 % (0.0-3.0); HEMATOCRIT 29.7 % (37.0-47.0); HEMOGLOBIN 9.5 G/DL (12.0-16.0); LYMPHOCYTES % (AUTO) 10.5 % (20.0-45.0); MEAN CORPUSCULAR VOLUME 88 FL (80-99); MONOCYTES % (AUTO) 8.1 % (1.0-10.0); NEUTROPHILS % (AUTO) 77.8 % (45.0-75.0); PLATELET COUNT 179 K/UL (150-450); RED BLOOD COUNT 3.36 M/UL (4.20-5.40); RED CELL DISTRIBUTION WIDTH 14.2 % (11.6-14.8)
[2018-01-17 12:00] VITALS: BP 158/83
--- NOTE | 2018-01-17 12:18 | General Progress Note ---
Assessment/Plan Assessment/Plan Assessment - Anemia - now H&H stable - OB (+) stools - negative EGD/Colon - Azotemia - obesity - HTN - h/o CVA Recommendations - push po - follow CBC - transfuse PRN - IV Fe - f/u capsule results - still pending - d/c planning per PMD Subjective Allergies: Coded Allergies: ERYTHROMYCIN BASE (Unverified Allergy, Intermediate, 02/10/15) Subjective Above noted feels OK no abdominal complaints Objective Last 24 Hour Vital Signs Date Time Temp Pulse Resp B/P (MAP) Pulse Ox O2 Delivery O2 Flow Rate FiO2 01/17/18 09:04 115/72 01/17/18 09:03 87 115/72 01/17/18 09:03 115/72 01/17/18 09:03 87 115/72 01/17/18 08:00 98.4 87 20 115/72 93 98.4 01/17/18 06:14 141/75 01/17/18 04:00 97.9 76 20 141/75 96 97.9 01/17/18 04:00 96 Room Air 01/17/18 00:00 98.6 71 20 131/67 96 Room Air 98.6 01/17/18 00:00 96 Room Air 01/16/18 20:28 139/74 01/16/18 20:00 98.5 75 20 139/74 94 Room Air 98.5 01/16/18 20:00 96 Room Air 01/16/18 18:16 162/79 01/16/18 16:00 98.7 98 20 162/79 98.7 01/16/18 13:54 179/90 01/16/18 13:22 105 172/88 01/16/18 13:22 172/88 01/16/18 13:22 105 172/88 01/16/18 13:21 172/88 Intake and Output 01/16/18 01/17/18 19:00 07:00 Intake Total 420 ml 200 ml Balance 420 ml 200 ml Intake Oral 240 ml 200 ml IV Total 180 ml # Voids 1 1 Laboratory Tests 01/17/18 06:25: Sodium Level 142, Potassium Level 5.0, Chloride Level 113H, Carbon Dioxide Level 19L, Anion Gap 11, Blood Urea Nitrogen 20H, Creatinine 2.4H, Estimat Glomerular Filtration Rate 24.2, Glucose Level 83, Calcium Level 9.0 01/17/18 09:30: White Blood Count 4.0L, Red Blood Count 3.36L, Hemoglobin 9.5L, Hematocrit 29.7L , Mean Corpuscular Volume 88, Mean Corpuscular Hemoglobin 28.2, Mean Corpuscular Hemoglobin Concent 32.0, Red Cell Distribution Width 14.2, Platelet Count 179, Mean Platelet Volume 8.3, Neutrophils (%) (Auto) 77.8H, Lymphocytes ( %) (Auto) 10.5L, Monocytes (%) (Auto) 8.1, Eosinophils (%) (Auto) 2.9, Basophils (%) (Auto) 0.7 Height (Feet): 5 Height (Inches): 3.00 Weight (Pounds): 236 Objective Obese AA woman NCAT supple CTA RRR Abd obese soft NT no edema MARIA DE JESUS DAUGHERTY Jan 17, 2018 12:18
[2018-01-17 13:13] VITALS: BP 160/80
--- NOTE | 2018-01-17 22:18 | Endoscopy Procedure Note ---
Endoscopy Procedure Note General Indication for Procedure: anemia Procedures Performed: EGD, colonoscopy Operative Findings/Diagnosis: gastrirtis polyps Specimen: yes Pt Tolerated Procedure Well: Yes Estimated Blood Loss: none Anesthesia Anesthesiologist: see report Anesthesia: MAC Medications Medication Given: see anesthesia record Inserted Devices Implant(s) used?: No GI Core Measures 50 yrs or older w/o bx or poly: Not Applicable 10yrs. F/U not recommended: Not Applicable If not recommended, why?: MARIA DE JESUS DAUGHERTY Jan 17, 2018 22:18
--- NOTE | 2018-01-17 22:20 | Brief Operative Note ---
Immediate Post Operative Note Operative Note Chief Complaint: anemia Pre-op Diagnosis: HEME (+) Procedure: esophagogastroduodenoscopy colon Post-op Diagnosis: 1. Minimal gastritis, status post biopsy. 2. Diminutive descending colon and sigmoid colon polyp, status post biopsy and removal. 3. Normal terminal ileum. 4. No pathology found to explain the patient's anemia. Surgeon: negin Anesthesiologist: see attached Anesthesia: MAC Specimen: yes Complications: none Condition: stable Fluids: recorded Estimated Blood Loss: none Drains: none Implant(s) used?: No MARIA DE JESUS DAUGHERTY Jan 17, 2018 22:20
--- NOTE | 2018-01-18 03:45 | Discharge Summary ---
DATE OF ADMISSION: 01/09/2018 DATE OF DISCHARGE: 01/17/2018 ADMISSION DIAGNOSES: 1. Shortness of breath. 2. Hypertensive urgency. 3. Acute renal failure. 4. Anemia, possible GI bleed. DISCHARGE DIAGNOSES: 1. Shortness of breath. 2. Hypertensive urgency. 3. Acute renal failure. 4. Anemia, possible GI bleed. HOSPITAL COURSE: The patient is a pleasant female, who presented with complaints of shortness of breath, malaise, weakness. She was markedly anemic with a hemoglobin of 6. She was transfused. She underwent an upper endoscopy that showed no obvious source of bleeding and a capsule endoscopy results of which were still pending upon discharge. Her hospital course was complicated by yorukqalw-wy-wbyfikw blood pressure. This was complicated by noncompliance from the patient. Eventually, the patient's blood pressure stabilized. She will be discharged home. New prescriptions were sent to the patient's pharmacy via e-script. The patient also had acute renal failure. Her renal ultrasound was negative. Renal consultation was obtained. There was no obstruction noted. Renal function remained stable on discharge although it did not return back to normal. This will be followed closely as an outpatient. DISCHARGE MEDICATIONS: Please see discharge medication list for discharge medications. DIET: Cardiac diet. ACTIVITIES: Ad-jackelin. FOLLOWUP: The patient will follow up in one to two weeks in the office. Chema Hendricks M.D. DR: Amol JOB#: [id number] CC:
--- NOTE | 2018-01-22 10:55 | Diagnostic Imaging Report ---
APPROVED REPORT CPT Code: 36342 Present Symptoms Comments: Right forearm swelling BILATERAL UPPER EXTREMITY: Imaging reveals patency of the internal jugular, subclavian, axillary and brachial veins. Imaging reveals acute thrombus in the right cephalic vein at forearm level. The right basilic vein is also patent. Imaging also reveals patency of the left cephalic and basilic veins. Doppler indicates normal spontaneous flow within these venous segments, bilaterally.
--- NOTE | 2018-02-05 16:15 | Procedure Note ---
DATE OF PROCEDURE: 01/15/2018 CAPSULE ENDOSCOPY REPORT This was done as an inpatient on 01/15/2018. SURGEON: David Bosch M.D. REFERRING PHYSICIAN: Mina Rao M.D. PROCEDURE: Capsule endoscopy. INDICATION: Anemia, possible GI bleeding. The procedure, risks, benefits, and possible consequences, including hemorrhage, aspiration, perforation and infection, and alternative treatments, were explained to the patient/legal guardian by Dr. David Bosch and the patient/legal guardian understood and accepted these risks. DESCRIPTION OF PROCEDURE: The patient swallowed the capsule. Capsule spent about 1 hour and 47 minutes in the stomach before entering the small intestine. Capsule spent 4 hours and 32 minutes in the small intestine before entering the colon. At the end of the study, the capsule entered into the colon. This is a difficult study because there was some questionable orange-colored Jell-O throughout the small intestine. The red marker on the computer was on the whole part of the small intestine. There is no active bleeding, but on talking to the primary care physician and GI doctor, apparently the patient is not actively bleeding. There is no blood in the stool. So, this is most probably some food or Jell-O that she ate that has red color, orange color tinge to it. Otherwise, there are no active ulcerations. No hemangioma. No AVMs. No obvious source for bleeding. I want to thank, Dr. Rao, for this kind referral. David Bosch M.D. DR: NICOL JOB#: [id number] CC: Mina Rao M.D.; Fax#: [phone]
== END 2018-01-17 14:27 | disposition home health service (06) | DRG 378 ==
LOC: 4E 14:52
PROC: 30233N1 Transfusion of Nonautologous Red Blood Cells into Peripheral Vein, Percutaneous Approach (ICD-10-PCS; principal; 2018-01-09)
PROC: 0DBK8ZX Excision of Ascending Colon, Via Natural or Artificial Opening Endoscopic, Diagnostic (ICD-10-PCS; 2018-01-14 11:21)
PROC: 0DBN8ZX Excision of Sigmoid Colon, Via Natural or Artificial Opening Endoscopic, Diagnostic (ICD-10-PCS; 2018-01-14 11:21)
PROC: 0DB78ZX Excision of Stomach, Pylorus, Via Natural or Artificial Opening Endoscopic, Diagnostic (ICD-10-PCS; 2018-01-14 11:21)
DX: K92.2 Gastrointestinal hemorrhage, unspecified (principal); N17.9 Acute kidney failure, unspecified; D61.818 Other pancytopenia; N18.3 Chronic kidney disease, stage 3 (moderate); D63.1 Anemia in chronic kidney disease; Z68.41 Body mass index [BMI] 40.0-44.9, adult; E86.0 Dehydration; Z86.73 Personal history of transient ischemic attack (TIA), and cerebral infarction without residual deficits; E66.9 Obesity, unspecified; K29.70 Gastritis, unspecified, without bleeding; K63.5 Polyp of colon; I16.0 Hypertensive urgency; I12.9 Hypertensive chronic kidney disease with stage 1 through stage 4 chronic kidney disease, or unspecified chronic kidney disease
CPT/HCPCS: 36415; 74176; 76770; 80048; 80053; 81003; 82043; 82044; 82270; 82378; 82533; 82550; 82570; 83540; 83550; 83690; 84300; 84443; 84550; 85007; 85025; 85044; 86850; 86900; 86901; 86920; 93970; 94003; 94150

== ENCOUNTER 2018-05-24 13:37 | Inpatient (IN) | payer MEDICARE, OTHER ==
[~2018-05-24] VITALS: Ht 157.5 cm; Wt 98.9 kg
[~2018-05-24 13:37] MED LIST changes: +APRESOLINE50 MG ORAL; +LEVOTHYROXINE125 MCG ORAL; +LEVOTHYROXINE137 MCG ORAL; +LOPRESSOR25 M1 ORAL; +LOSARTAN POTAS100 MG ORAL; +NORCO 10/3251 EA ORAL; +NORVASC10 MG ORAL; +PANTOPRAZOLE SO20 MG ORAL
[2018-05-24] MEDS ORDERED: Norco 5mg/325mg tab ORAL PRN (17:00)
[2018-05-24] MEDS ORDERED: METOPROLOL TAR100 MG ORAL (17:16)
[2018-05-24] MEDS ORDERED: METOPROLOL TART25 MG ORAL (17:16)
[2018-05-24] MEDS ORDERED: BENADRYL25 MG ORAL (17:16)
[2018-05-24] MEDS ORDERED: HYDRALAZINE HC100 MG ORAL (17:16)
[2018-05-24] MEDS ORDERED: NORCO 10-325 T1 EACH ORAL (17:16)
[2018-05-24 17:22] VITALS: BP 150/71
[2018-05-24] MEDS: Docusate 100mg cap ORAL SCH (18:21)
[2018-05-24 20:00] VITALS: BP 127/83
--- NOTE | 2018-05-24 20:28 | Diagnostic Imaging Report ---
EXAM: US Retroperitoneal Limited, Renal CLINICAL HISTORY: RENAL-A TECHNIQUE: Real-time ultrasound of the retroperitoneum (limited) with image documentation. COMPARISON: No relevant prior studies available. FINDINGS: Right kidney: No hydronephrosis. Multiple hypoechoic foci. Right kidney measures 11.8 cm. Echogenic kidney. Left kidney: No hydronephrosis. Multiple hypoechoic foci. Left kidney measures 11.0 cm. Echogenic kidney. IMPRESSION: No hydronephrosis
[2018-05-24] MEDS: Heparin 5000 units/ml inj SUBQ SCH (21:00)
[2018-05-24 21:05] LABS: APPEARANCE,URINE CLEAR; BILIRUBIN, URINE NEGATIVE (NEGATIVE); COLOR,URINE PALE YELLOW; GLUCOSE, URINE (UA) NEGATIVE (NEGATIVE); KETONES,URINE NEGATIVE (NEGATIVE); LEUKOCYTE ESTERASE ,URINE NEGATIVE (NEGATIVE); NITRITE,URINE NEGATIVE (NEGATIVE); PH,URINE 5 (4.5-8.0); PROTEIN,URINE 2+ (NEGATIVE); UROBILINOGEN,URINE NORMAL MG/DL (0.0-1.0)
[2018-05-24] MEDS ORDERED: HydrALAZINE 50mg tab ORAL SCH (22:00)
[2018-05-24 22:16] VITALS: BP 143/78
[2018-05-24] MEDS: HydrALAZINE 50mg tab ORAL SCH (22:17)
[2018-05-25] VITALS: BP 152/74
[2018-05-25 04:00] VITALS: BP 157/80
[2018-05-25] MEDS: Levothyroxine 125mcg tab ORAL SCH (05:36)
[2018-05-25] MEDS: HydrALAZINE 50mg tab ORAL SCH ×3 (05:36→21:13)
[2018-05-25 07:17] LABS: ALANINE AMINOTRANSFERASE 45 U/L (12-78); ALBUMIN/GLOBULIN RATIO 0.7 (1.0-2.7); ALKALINE PHOSPHATASE 102 U/L (46-116); ANION GAP 11 mmol/L (5-15); ASPARTATE AMINO TRANSFERASE 45 U/L (15-37); BILIRUBIN,TOTAL 0.2 MG/DL (0.2-1.0); BLOOD UREA NITROGEN 43 mg/dL (7-18); CALCIUM 8.7 MG/DL (8.5-10.1); CARBON DIOXIDE 18 MMOL/L (21-32); CHLORIDE 114 MMOL/L (98-107); POTASSIUM 4.4 MMOL/L (3.5-5.1); SODIUM 143 MMOL/L (136-145)
[2018-05-25 08:00] VITALS: BP 136/67
[2018-05-25] MEDS: Docusate 100mg cap ORAL SCH ×2 (09:24→17:23)
[2018-05-25] MEDS: Heparin 5000 units/ml inj SUBQ SCH ×2 (09:25→20:25)
[2018-05-25 12:00] VITALS: BP 147/67
[2018-05-25 16:00] VITALS: BP 138/67
--- NOTE | 2018-05-25 19:45 | History and Physical Report ---
DATE OF ADMISSION: 05/24/2018 CHIEF COMPLAINT: Acute renal failure. HISTORY OF PRESENT ILLNESS: The patient is a pleasant 72-year-old female. She has a prior history of stroke and hypertension. She has a history of pericardial effusion, COPD, and asthma. She has a history of chronic kidney disease. Her baseline creatinine runs anywhere from 1.5 to 2. She was scheduled for routine followup at the office. Routine laboratory tests showed a creatinine of 4. Repeat creatinine done just several days later was 3.7. In light of the patient's acute renal failure, she is now admitted for further evaluation and care. The patient denies any recent changes in medications. She has been taking good POs and drinking fluids. She denies any back pain. She denies any dysuria or hematuria. Denies any difficulty with urination. PAST MEDICAL HISTORY: As above. PAST SURGICAL HISTORY: Includes history of a pericardiocentesis. CURRENT MEDICATIONS: Reconciled and reviewed. ALLERGIES: Include erythromycin. SOCIAL HISTORY: There is no known history of tobacco, ethanol, or drugs. FAMILY HISTORY: Noncontributory. REVIEW OF SYSTEMS: GENERAL: No fevers or chills. HEENT: No headaches or visual changes. CARDIOPULMONARY: No chest pain or shortness of breath. GASTROINTESTINAL: No nausea or vomiting. GENITOURINARY: No urgency or frequency. MUSCULOSKELETAL: No joint pain or swelling. NEUROLOGIC: No evidence of seizures. PHYSICAL EXAMINATION: VITAL SIGNS: Temperature 98 degrees, pulse 84, respirations 20, and blood pressure 150/83. GENERAL: The patient is well developed, in no apparent distress. HEART: Regular rate and rhythm. LUNGS: Clear. ABDOMEN: Soft, nontender, and nondistended. EXTREMITIES: Without clubbing, cyanosis, or edema. LABORATORY DATA: Labs are pending. ASSESSMENT: This is a pleasant female with history of hypertension, chronic obstructive pulmonary disease, venous insufficiency, obesity, and hypothyroidism, admitted with complaints of acute on chronic renal failure, suspect secondary to dehydration. PLAN: IV hydration. Check renal ultrasound. Avoid nephrotoxins. Renal consultation. Chema Hendricks M.D. DR: Mohini JOB#: [id number] CC:
[2018-05-25 19:56] VITALS: BP 144/67
[2018-05-26] VITALS (8 sets, daily range): BP systolic 149–166; BP diastolic 72–84
[2018-05-26] MEDS: HydrALAZINE 50mg tab ORAL SCH ×3 (05:41→22:21)
[2018-05-26] MEDS: Levothyroxine 125mcg tab ORAL SCH (05:41)
[2018-05-26] MEDS: Docusate 100mg cap ORAL SCH ×2 (08:33→17:19)
[2018-05-26] MEDS: Heparin 5000 units/ml inj SUBQ SCH ×2 (08:35→20:55)
[2018-05-26 08:48] LABS: HEMATOCRIT 26.8 % (37.0-47.0); HEMOGLOBIN 8.5 G/DL (12.0-16.0); MEAN CORPUSCULAR VOLUME 92 FL (80-99); PLATELET COUNT 155 K/UL (150-450); WHITE BLOOD COUNT 2.2 K/UL (4.8-10.8)
[2018-05-26 08:57] LABS: ANION GAP 11 mmol/L (5-15); BLOOD UREA NITROGEN 36 mg/dL (7-18); CALCIUM 8.9 MG/DL (8.5-10.1); CARBON DIOXIDE 18 MMOL/L (21-32); CHLORIDE 113 MMOL/L (98-107); CREATININE 2.6 MG/DL (0.55-1.30); POTASSIUM 4.6 MMOL/L (3.5-5.1); SODIUM 142 MMOL/L (136-145)
--- NOTE | 2018-05-26 09:41 | General Progress Note ---
Assessment/Plan Problem List: (1) Pericardial effusion, acute ICD Codes: I30.9 - Acute pericarditis, unspecified SNOMED: 96018932 (2) Acute renal failure (ARF) ICD Codes: N17.9 - Acute renal failure (ARF) SNOMED: 05684602 (3) Acidosis ICD Codes: E87.2 - Acidosis SNOMED: 78821748 (4) Pancytopenia ICD Codes: D61.818 - Pancytopenia SNOMED: 285105519 Status: stable, progressing Assessment/Plan cont ivf monitor renal fxn avoid nephrotoxins Subjective ROS Limited/Unobtainable: No Constitutional: Reports: malaise, weakness HEENT: Reports: no symptoms Cardiovascular: Reports: no symptoms Respiratory: Reports: no symptoms Gastrointestinal/Abdominal: Reports: no symptoms Genitourinary: Reports: no symptoms Neurologic/Psychiatric: Reports: no symptoms Endocrine: Reports: no symptoms Hematologic/Lymphatic: Reports: no symptoms Allergies: Coded Allergies: ERYTHROMYCIN BASE (Unverified Allergy, Intermediate, 05/24/18) Per patient not allergic to medications or food All Systems: reviewed and negative except above Subjective no events. renal function improving with iv hydration. no cp/sob. no hydro on US Objective Last 24 Hour Vital Signs Date Time Temp Pulse Resp B/P (MAP) Pulse Ox O2 Delivery O2 Flow Rate FiO2 05/26/18 08:35 75 166/84 05/26/18 08:33 75 166/84 05/26/18 08:00 98.1 75 20 166/84 (111) 95 98.1 05/26/18 07:57 Room Air 05/26/18 05:41 149/77 05/26/18 04:00 98.9 74 20 149/77 (101) 100 98.9 05/26/18 00:00 98.7 75 19 150/79 (102) 95 98.7 05/25/18 21:13 144/67 05/25/18 21:00 Room Air 05/25/18 20:19 69 144/67 05/25/18 19:56 98.4 69 19 144/67 (92) 93 98.4 05/25/18 16:00 98.0 76 16 138/67 (90) 98 98.0 05/25/18 13:21 147/67 05/25/18 12:00 97.9 75 20 147/67 (93) 96 97.9 Intake and Output 05/25/18 05/26/18 19:00 07:00 Intake Total 1870 ml 700 ml Balance 1870 ml 700 ml Intake Oral 720 ml IV Total 1150 ml 700 ml # Voids 8 3 Laboratory Tests 05/26/18 08:00: White Blood Count 2.2L, Red Blood Count 2.90L, Hemoglobin 8.5L, Hematocrit 26.8L , Mean Corpuscular Volume 92, Mean Corpuscular Hemoglobin 29.3, Mean Corpuscular Hemoglobin Concent 31.8L, Red Cell Distribution Width 12.0, Platelet Count 155, Mean Platelet Volume 8.3, Neutrophils (%) (Auto) , Lymphocytes (%) (Auto) , Monocytes (%) (Auto) , Eosinophils (%) (Auto) , Basophils (%) (Auto) , Neutrophils % (Manual) [Pending], Lymphocytes % (Manual) [Pending], Platelet Estimate [Pending], Platelet Morphology [Pending], Sodium Level 142, Potassium Level 4.6, Chloride Level 113H, Carbon Dioxide Level 18L, Anion Gap 11, Blood Urea Nitrogen 36H, Creatinine 2.6H, Estimat Glomerular Filtration Rate 22.1, Glucose Level 99, Calcium Level 8.9 Height (Feet): 5 Height (Inches): 2.00 Weight (Pounds): 218 General Appearance: WD/WN, alert Neck: supple Cardiovascular: regular rhythm Respiratory/Chest: lungs clear, normal breath sounds, no respiratory distress Abdomen: normal bowel sounds, non tender, soft Edema: no edema noted Arm (L), no edema noted Arm (R), no edema noted Leg (L), no edema noted Leg (R), no edema noted Pedal (L), no edema noted Pedal (R), no edema noted Generalized Chema Hendricks MD May 26, 2018 09:41
--- NOTE | 2018-05-26 18:00 | Cardiology Report ---
APPROVED REPORT EXAM: Two-dimensional and M-mode echocardiogram with Doppler and color Doppler. INDICATION Peicardial effusion M-Mode DIMENSIONS IVSd0.9 (0.7-1.1cm)Left Atrium (MM)4.0 (1.6-4.0cm) LVDd5.3 (3.5-5.6cm)Aortic Root2.5 (2.0-3.7cm) PWd0.8 (0.7-1.1cm)Aortic Cusp Exc.1.5 (1.5-2.0cm) LVDs3.6 (2.5-4.0cm) PWs1.7 cm Technically difficult study due to poor apical acoustic windows and patient body habitus. Study quality precludes accurate assessment of regional wall motion. Normal left ventricular chamber size, systolic function and wall motion. Left ventricular ejection fraction estimated to be 55 -60 %. No evidence of left ventricular hypertrophy. Small circumferential pericardial effusion. All other cardiac chamber sizes are within normal limits. Focal aortic valve sclerosis with adequate cusp excursion. Mildly thickened mitral valve leaflets with normal excursion. Mild mitral annulus and aortic root calcification. Normal pulmonic valve structure. Normal tricuspid valve structure. IVC is normal in size with physiological collapse. A color flow and spectral Doppler study was performed and revealed: Mild aortic insufficiency. Mild mitral regurgitation. Mitral diastolic velocities suggest mild left ventricular diastolic dysfunction (Grade I). Mild tricuspid regurgitation. Tricuspid systolic velocities suggests peak right ventricular systolic pressure of 38 mmHg, consistent with mild pulmonary hypertension. Mild pulmonic regurgitation present.
[2018-05-27] VITALS: BP 160/84
[2018-05-27 04:00] VITALS: BP 155/76
[2018-05-27] MEDS: HydrALAZINE 50mg tab ORAL SCH (06:02)
[2018-05-27] MEDS: Levothyroxine 125mcg tab ORAL SCH (06:02)
[2018-05-27 08:00] VITALS: BP 117/83
[2018-05-27 08:01] LABS: ANION GAP 11 mmol/L (5-15); BLOOD UREA NITROGEN 27 mg/dL (7-18); CALCIUM 8.8 MG/DL (8.5-10.1); CARBON DIOXIDE 18 MMOL/L (21-32); CHLORIDE 115 MMOL/L (98-107); CREATININE 2.3 MG/DL (0.55-1.30); POTASSIUM 4.2 MMOL/L (3.5-5.1); SODIUM 144 MMOL/L (136-145)
[2018-05-27] MEDS: Docusate 100mg cap ORAL SCH (09:47)
[2018-05-27] MEDS: Heparin 5000 units/ml inj SUBQ SCH (09:48)
[2018-05-27 12:00] VITALS: BP 168/78
--- NOTE | 2018-05-28 01:15 | Discharge Summary ---
DATE OF ADMISSION: 05/24/2018 DATE OF DISCHARGE: 05/27/2018 ADMITTING DIAGNOSES: 1. Acute renal failure. 2. History of stroke. 3. Hypertension. 4. Chronic obstructive pulmonary disease. 5. History of pericardial effusion. DISCHARGE DIAGNOSES: 1. Acute renal failure. 2. History of stroke. 3. Hypertension. 4. Chronic obstructive pulmonary disease. 5. History of pericardial effusion. HOSPITAL COURSE: The patient is a pleasant female, admitted with complaints of acute renal failure. Her creatinine was as high as 4. She received IV hydration. Renal ultrasound showed no evidence of obstruction. On discharge, creatinine was 14, it is baseline. The patient will be discharged home. She is instructed to avoid any diuretics and remain hydrated . She should follow up in a week for a repeat of her labs. DISCHARGE MEDICATIONS: Please see discharge medications list for discharge medications. DIET: Cardiac diet. ACTIVITY: Ad-jackelin. FOLLOWUP: The patient will follow up in one week in the office. Chema Hendricks M.D. DR: DMITRIY JOB#: [id number] CC:
== END 2018-05-27 13:15 | disposition home or self-care (01) | DRG 683 ==
LOC: 4W 15:57
DX: N17.9 Acute kidney failure, unspecified (principal); I31.3 Pericardial effusion (noninflammatory); E87.2 Acidosis; D61.818 Other pancytopenia; E86.0 Dehydration; N18.9 Chronic kidney disease, unspecified; J44.9 Chronic obstructive pulmonary disease, unspecified; I12.9 Hypertensive chronic kidney disease with stage 1 through stage 4 chronic kidney disease, or unspecified chronic kidney disease; E03.9 Hypothyroidism, unspecified; Z68.39 Body mass index [BMI] 39.0-39.9, adult; Z86.73 Personal history of transient ischemic attack (TIA), and cerebral infarction without residual deficits
CPT/HCPCS: 36415; 76770; 80048; 80053; 81003; 82330; 85007; 85025; 86039; 93306

== ENCOUNTER 2019-07-14 09:52 | Inpatient (IN) | payer MEDICARE, OTHER ==
[~2019-07-14] VITALS: Ht 154.9 cm; Wt 83.2 kg
[~2019-07-14 09:52] MED LIST changes: +BENADRYL25 MG ORAL; +HYDRALAZINE HC100 MG ORAL; +METOPROLOL TAR100 MG ORAL; +NORCO 10-325 T1 EACH ORAL
[2019-07-14] MEDS ORDERED: NORCO 10-325 T1 EACH ORAL (10:04)
[2019-07-14] MEDS ORDERED: VITAMIN D400 INTLU ORAL (10:04)
[2019-07-14] MEDS ORDERED: ADALAT20 MG ORAL (10:04)
[2019-07-14] MEDS ORDERED: CALCITRIOL0.25 MCG PO (10:04)
[2019-07-14] MEDS ORDERED: TEMAZEPAM15 MG ORAL (10:04)
[2019-07-14] MEDS ORDERED: FERROUS SULFAT325 M2 ORAL (10:04)
[2019-07-14] MEDS ORDERED: CLONIDINE HCL0.2 MG (10:04)
[2019-07-14 10:38] VITALS: BP 129/63
--- NOTE | 2019-07-14 10:38 | NUR ---
ED Nurse Note:pt. walked in from PMD office for abnormal BUN creatinin blood work eval, she is A/Ox4 ambulatory with walker, placed on monitor and storage bin tender, VSS, blood sent to labs and given IV fluids
[2019-07-14 10:43] LABS: BASOPHILS % (AUTO) 2.4 % (0.0-2.0); EOSINOPHILS % (AUTO) 1.5 % (0.0-3.0); HEMATOCRIT 30.9 % (37.0-47.0); HEMOGLOBIN 9.9 G/DL (12.0-16.0); LYMPHOCYTES % (AUTO) 15.4 % (20.0-45.0); MEAN CORPUSCULAR VOLUME 92 FL (80-99); NEUTROPHILS % (AUTO) 72.7 % (45.0-75.0); PLATELET COUNT 179 K/UL (150-450); RED BLOOD COUNT 3.35 M/UL (4.20-5.40); WHITE BLOOD COUNT 3.8 K/UL (4.8-10.8)
[2019-07-14 10:52] LABS: ANION GAP 13 mmol/L (5-15); BLOOD UREA NITROGEN 42 mg/dL (7-18); CALCIUM 7.8 MG/DL (8.5-10.1); CARBON DIOXIDE 21 MMOL/L (21-32); CHLORIDE 107 MMOL/L (98-107); CREATININE 3.5 MG/DL (0.55-1.30); POTASSIUM 4.7 MMOL/L (3.5-5.1); SODIUM 141 MMOL/L (136-145)
[2019-07-14 10:56] LABS: ALANINE AMINOTRANSFERASE 23 U/L (12-78); ALBUMIN 3.3 G/DL (3.4-5.0); ALBUMIN/GLOBULIN RATIO 0.7 (1.0-2.7); ALKALINE PHOSPHATASE 65 U/L (46-116); ASPARTATE AMINO TRANSFERASE 29 U/L (15-37); BILIRUBIN,TOTAL 0.3 MG/DL (0.2-1.0)
[2019-07-14 11:56] VITALS: BP 127/64
--- NOTE | 2019-07-14 11:57 | NUR ---
ED Nurse Note:called report $east- told to call back in 5 min
--- NOTE | 2019-07-14 12:14 | NUR ---
ED Nurse Note:report given to Miriam RN , pt. was taken up to floor
[2019-07-14 12:29] LABS: APPEARANCE,URINE CLEAR; BILIRUBIN, URINE NEGATIVE (NEGATIVE); COLOR,URINE PALE YELLOW; GLUCOSE, URINE (UA) NEGATIVE (NEGATIVE); KETONES,URINE NEGATIVE (NEGATIVE); NITRITE,URINE NEGATIVE (NEGATIVE); PROTEIN,URINE NEGATIVE (NEGATIVE); UROBILINOGEN,URINE NORMAL MG/DL (0.0-1.0)
[2019-07-14 12:30] LABS: LEUKOCYTE ESTERASE ,URINE NEGATIVE (NEGATIVE)
--- NOTE | 2019-07-14 12:40 | NUR ---
nurse notes received patient from ED via gurney , patient awake, alert, oriented x4, no sign of distress, denies pain or discomfort at this time, admission routine care rendered,v/s taken and recorded, tony finch
[2019-07-14] MEDS ORDERED: HYDROcodone/Acetamin 10/325 tab ORAL PRN (14:00)
[2019-07-14] MEDS ORDERED: HydrALAZINE 50mg tab ORAL SCH (14:00)
--- NOTE | 2019-07-14 14:42 | Emergency Room Report ---
History of Present Illness General Chief Complaint: Abnormal Labs Source: Family Member Present Illness HPI 73-year-old female presents ED for evaluation. Referred by PMD for worsening kidney function. Had blood work on Sunday which shows elevated creatinine. History of renal insufficiency. States she feels okay. Denies chest pain or shortness of breath. Denies any dizziness weakness. No other aggravating relieving factors. Denies any other associated symptoms Allergies: Coded Allergies: ERYTHROMYCIN BASE (Unverified Allergy, Intermediate, 07/14/19) Per patient not allergic to medications or food Patient History Past Medical History: HTN, CVA/TIA, seizures Past Surgical History: none Pertinent Family History: none Social History: Denies: smoking, alcohol use, drug use Now: No Immunizations: UTD Reviewed Nursing Documentation: PMH: Agreed; PSxH: Agreed Nursing Documentation-PMH Past Medical History: No History, Except For Hx Cardiac Problems: Yes Hx Hypertension: Yes Hx Asthma: No Hx Cancer: No Hx Gastrointestinal Problems: No Hx Neurological Problems: Yes Hx Cerebrovascular Accident: Yes Hx Parkinson's Disease: Yes Hx Seizures: Yes Hx Speech Problem: Yes Review of Systems All Other Systems: negative except mentioned in HPI Physical Exam Vital Signs Date Time Temp Pulse Resp B/P (MAP) Pulse Ox O2 Delivery O2 Flow Rate FiO2 07/14/19 09:56 98.6 87 16 149/73 (98) 96 Room Air Sp02 EP Interpretation: reviewed, normal General Appearance: no apparent distress, alert, GCS 15, non-toxic Head: normocephalic, atraumatic Eyes: bilateral eye normal inspection, bilateral eye PERRL ENT: hearing grossly normal, normal pharynx, no angioedema, normal voice Neck: full range of motion, supple/symm/no masses Respiratory: chest non-tender, lungs clear, normal breath sounds, speaking full sentences Cardiovascular #1: regular rate, rhythm, no edema Cardiovascular #2: 2+ carotid (R), 2+ carotid (L), 2+ radial (R), 2+ radial (L) , 2+ dorsalis pedis (R), 2+ dorsalis pedis (L) Gastrointestinal: normal bowel sounds, non tender, soft, non-distended, no guarding, no rebound Rectal: deferred Genitourinary: normal inspection, no CVA tenderness Musculoskeletal: back normal, gait/station normal, normal range of motion, non- tender Neurologic: alert, oriented x3, responsive, motor strength/tone normal, sensory intact, speech normal Psychiatric: judgement/insight normal, memory normal, mood/affect normal, no suicidal/homicidal ideation Reflexes: 3+ bicep (R), 3+ bicep (L), 3+ tricep (R), 3+ tricep (L), 3+ knee (R) , 3+ knee (L) Lymphatic: no adenopathy Medical Decision Making Diagnostic Impression: Primary Impression: Acute renal failure (ARF) Qualified Codes: N17.9 - Acute kidney failure, unspecified ER Course Hospital Course 73-year-old female presents ED with worsening renal function on lab work Differential diagnoses include: hyperkalemia, dehydration, hypernatremia Clinical course Patient placed on stretcher. On rn cardiac cath. After initial history and physical, I ordered labs, IV fluids, EKG, IVFs Labs - no leukocytosis, hb/hct stable, BUN/Cr 42/3.5, K 4.7. EKG - NSR no acute ischemic changes interpreted by me Case discussed with Dr Hendricks and they agreed to admit patient to their service for further care and support I feel this is a highly complex case requiring extensive working including EKG/ Rhythm strip, Xray/CT/US, Blood/urine lab work, repeat exams while in ED, and administration of strong opiates/narcotics for pain control, admission to hospital or close patient follow up. Diagnosis - acute renal failure Patient admitted to floor in serous condition Labs Test 07/14/19 10:30 07/14/19 11:05 White Blood Count 3.8 K/UL (4.8-10.8) Red Blood Count 3.35 M/UL (4.20-5.40) Hemoglobin 9.9 G/DL (12.0-16.0) Hematocrit 30.9 % (37.0-47.0) Mean Corpuscular Volume 92 FL (80-99) Mean Corpuscular Hemoglobin 29.4 PG (27.0-31.0) Mean Corpuscular Hemoglobin Concent 32.0 G/DL (32.0-36.0) Red Cell Distribution Width 12.0 % (11.6-14.8) Platelet Count 179 K/UL (150-450) Mean Platelet Volume 6.9 FL (6.5-10.1) Neutrophils (%) (Auto) 72.7 % (45.0-75.0) Lymphocytes (%) (Auto) 15.4 % (20.0-45.0) Monocytes (%) (Auto) 8.0 % (1.0-10.0) Eosinophils (%) (Auto) 1.5 % (0.0-3.0) Basophils (%) (Auto) 2.4 % (0.0-2.0) Sodium Level 141 MMOL/L (136-145) Potassium Level 4.7 MMOL/L (3.5-5.1) Chloride Level 107 MMOL/L (98-107) Carbon Dioxide Level 21 MMOL/L (21-32) Anion Gap 13 mmol/L (5-15) Blood Urea Nitrogen 42 mg/dL (7-18) Creatinine 3.5 MG/DL (0.55-1.30) Estimat Glomerular Filtration Rate mL/min (>60) Glucose Level 135 MG/DL (74-106) Calcium Level 7.8 MG/DL (8.5-10.1) Total Bilirubin 0.3 MG/DL (0.2-1.0) Aspartate Amino Transf (AST/SGOT) 29 U/L (15-37) Alanine Aminotransferase (ALT/SGPT) 23 U/L (12-78) Alkaline Phosphatase 65 U/L (46-116) Total Protein 8.2 G/DL (6.4-8.2) Albumin 3.3 G/DL (3.4-5.0) Globulin 4.9 g/dL Albumin/Globulin Ratio 0.7 (1.0-2.7) Lipase 301 U/L (73-393) Urine Color Pale yellow Urine Appearance Clear Urine pH 6.0 (4.5-8.0) Urine Specific [place] 1.005 (1.005-1.035) Urine Protein Negative (NEGATIVE) Urine Glucose (UA) Negative (NEGATIVE) Urine Ketones Negative (NEGATIVE) Urine Blood Negative (NEGATIVE) Urine Nitrite Negative (NEGATIVE) Urine Bilirubin Negative (NEGATIVE) Urine Urobilinogen Normal MG/DL (0.0-1.0) Urine Leukocyte Esterase Negative (NEGATIVE) EKG Diagnostic Results Rate: normal Rhythm: NSR ST Segments: no acute changes ASA given to the pt in ED: No Rhythm Strip Diag. Results EP Interpretation: yes Rhythm: NSR, no PVC's, no ectopy Last Vital Signs Date Time Temp Pulse Resp B/P (MAP) Pulse Ox O2 Delivery O2 Flow Rate FiO2 07/14/19 12:43 Room Air 07/14/19 12:12 98.6 81 16 127/64 98 Status: improved Disposition: ADMITTED INPATIENT Condition: Serious Referrals: Chema Hendricks MD (PCP) Kavon Finn MD Jul 14, 2019 14:42
[2019-07-14 15:53] VITALS: BP 125/79
[2019-07-14] MEDS ORDERED: NIFEdipine 10mg cap ORAL SCH (18:00)
--- NOTE | 2019-07-14 19:21 | NUR ---
nurse notes HAND-OFF: Report given to Ms Rosado RN, antonia finch rn.
--- NOTE | 2019-07-14 19:25 | NUR ---
NURSE NOTES: Received report from ENRIQUE Pineda. Rounded with AM shift RN. Patient resting in bed, bed in low position, locked, side rails up x2, call light within reach. IV site intact, infusing NS, rate changed to 125 cc/hr per MD order.
[2019-07-14 20:30] VITALS: BP 148/81
[2019-07-14] MEDS ORDERED: cloNIDine 0.2mg Tab ORAL SCH (21:00)
[2019-07-14] MEDS: Heparin 5000 units/ml inj SUBQ SCH (21:44)
[2019-07-14] MEDS: HydrALAZINE 50mg tab ORAL SCH (23:11)
[2019-07-15] VITALS (9 sets, daily range): BP systolic 147–167; BP diastolic 78–93
[2019-07-15] MEDS: Levothyroxine 125mcg tab ORAL SCH (06:30)
[2019-07-15] MEDS: HydrALAZINE 50mg tab ORAL SCH ×3 (06:31→21:30)
[2019-07-15 07:22] LABS: BASOPHILS % (AUTO) 0.6 % (0.0-2.0); HEMATOCRIT 28.5 % (37.0-47.0); HEMOGLOBIN 9.3 G/DL (12.0-16.0); MEAN CORPUSCULAR VOLUME 92 FL (80-99); MONOCYTES % (AUTO) 9.2 % (1.0-10.0); NEUTROPHILS % (AUTO) 66.3 % (45.0-75.0); PLATELET COUNT 183 K/UL (150-450); RED BLOOD COUNT 3.11 M/UL (4.20-5.40); RED CELL DISTRIBUTION WIDTH 11.7 % (11.6-14.8); WHITE BLOOD COUNT 3.6 K/UL (4.8-10.8)
--- NOTE | 2019-07-15 07:25 | NUR ---
nurse notes reeived in bed, patient awake, alert, oriented x4, no sign of distress, denies pain or discomfort at this time, IVF patent and infusing well, on fall and aspiration precaution, Plan of care was discussed verbalized understanding, kept clean dry and comfortable tony odell
[2019-07-15 07:36] LABS: ALANINE AMINOTRANSFERASE 22 U/L (12-78); ALBUMIN 3.1 G/DL (3.4-5.0); ALBUMIN/GLOBULIN RATIO 0.6 (1.0-2.7); ALKALINE PHOSPHATASE 61 U/L (46-116); ANION GAP 13 mmol/L (5-15); ASPARTATE AMINO TRANSFERASE 29 U/L (15-37); BILIRUBIN,TOTAL 0.3 MG/DL (0.2-1.0); BLOOD UREA NITROGEN 32 mg/dL (7-18); CALCIUM 7.7 MG/DL (8.5-10.1); CARBON DIOXIDE 23 MMOL/L (21-32); CHLORIDE 111 MMOL/L (98-107); CREATININE 2.9 MG/DL (0.55-1.30); POTASSIUM 4.4 MMOL/L (3.5-5.1); SODIUM 146 MMOL/L (136-145)
[2019-07-15 07:40] LABS: IRON 49 ug/dL (50-175); TOTAL IRON BINDING CAPACITY 218 ug/dL (250-450)
[2019-07-15 07:41] LABS: % IRON SATURATION 22 % (15-50)
--- NOTE | 2019-07-15 07:45 | NUR ---
HAND-OFF: Report given to ENRIQUE Pineda. No distress noted.
[2019-07-15] MEDS: Vitamin D 400 INTLU TAB ORAL SCH (08:30)
[2019-07-15] MEDS: NIFEdipine 10mg cap ORAL SCH ×2 (08:30→17:21)
[2019-07-15] MEDS: Calcitriol 0.25mcg Cap ORAL SCH (08:30)
[2019-07-15] MEDS: Heparin 5000 units/ml inj SUBQ SCH ×2 (08:31→20:16)
--- NOTE | 2019-07-15 09:04 | General Progress Note ---
Assessment/Plan Problem List: (1) Neutropenia ICD Codes: D70.9 - Neutropenia, unspecified SNOMED: 628075656 (2) Dehydration ICD Codes: E86.0 - Dehydration SNOMED: 72409505 (3) Oliguria ICD Codes: R34 - Oliguria SNOMED: 20386827 (4) Chronic kidney disease, stage III (moderate) ICD Codes: N18.3 - Chronic kidney disease, stage III (moderate) SNOMED: 681081587 Status: stable Assessment/Plan: cont ivf replace lytes as needed monitor renal fxn follow up renal us push fluids Subjective ROS Limited/Unobtainable: No Constitutional: Reports: malaise, weakness HEENT: Reports: no symptoms Cardiovascular: Reports: no symptoms Respiratory: Reports: no symptoms Gastrointestinal/Abdominal: Reports: no symptoms Genitourinary: Reports: no symptoms Neurologic/Psychiatric: Reports: pre-existing deficit Endocrine: Reports: no symptoms Hematologic/Lymphatic: Reports: no symptoms Allergies: Coded Allergies: ERYTHROMYCIN BASE (Unverified Allergy, Intermediate, 07/14/19) Per patient not allergic to medications or food All Systems: reviewed and negative except above Subjective no events. w/o complaints. no cp/sob. renal fxn improving. labs reviewed. Objective Last 24 Hour Vital Signs Date Time Temp Pulse Resp B/P (MAP) Pulse Ox O2 Delivery O2 Flow Rate FiO2 07/15/19 08:30 77 161/84 07/15/19 08:30 77 161/84 07/15/19 08:16 Room Air 07/15/19 08:00 98.7 77 19 161/84 (109) 97 07/15/19 06:31 157/83 07/15/19 04:00 98.5 76 17 157/83 (107) 97 07/15/19 00:00 98.8 86 18 166/93 (117) 97 07/14/19 23:11 166/93 07/14/19 21:42 79 148/81 07/14/19 21:42 148/81 07/14/19 21:00 Room Air 07/14/19 20:30 98.5 74 17 148/81 (103) 95 79 07/14/19 17:09 74 125/79 07/14/19 15:53 98.0 74 18 125/79 (94) 97 07/14/19 14:59 127/64 07/14/19 12:43 Room Air 07/14/19 12:12 98.6 81 16 127/64 98 Room Air 07/14/19 11:56 98.6 81 16 127/64 98 Room Air 07/14/19 10:38 98.6 83 16 129/63 96 Room Air 07/14/19 09:56 98.6 87 16 149/73 (98) 96 Room Air Intake and Output 07/14/19 07/15/19 19:00 07:00 Intake Total 750 ml 1370 ml Balance 750 ml 1370 ml Intake Oral 400 ml 120 ml IV Total 350 ml 1250 ml # Voids 2 9 Laboratory Tests 07/14/19 10:30: White Blood Count 3.8L, Red Blood Count 3.35L, Hemoglobin 9.9L, Hematocrit 30.9L , Mean Corpuscular Volume 92, Mean Corpuscular Hemoglobin 29.4, Mean Corpuscular Hemoglobin Concent 32.0, Red Cell Distribution Width 12.0, Platelet Count 179, Mean Platelet Volume 6.9, Neutrophils (%) (Auto) 72.7, Lymphocytes (% ) (Auto) 15.4L, Monocytes (%) (Auto) 8.0, Eosinophils (%) (Auto) 1.5, Basophils (%) (Auto) 2.4H, Sodium Level 141, Potassium Level 4.7, Chloride Level 107, Carbon Dioxide Level 21, Anion Gap 13, Blood Urea Nitrogen 42H, Creatinine 3.5H , Estimat Glomerular Filtration Rate , Glucose Level 135H, Calcium Level 7.8L, Total Bilirubin 0.3, Aspartate Amino Transf (AST/SGOT) 29, Alanine Aminotransferase (ALT/SGPT) 23, Alkaline Phosphatase 65, Total Protein 8.2, Albumin 3.3L, Globulin 4.9, Albumin/Globulin Ratio 0.7L, Lipase 301 07/14/19 11:05: Urine Color Pale yellow, Urine Appearance Clear, Urine pH 6.0, Urine Specific [place] 1.005, Urine Protein Negative, Urine Glucose (UA) Negative, Urine Ketones Negative, Urine Blood Negative, Urine Nitrite Negative, Urine Bilirubin Negative, Urine Urobilinogen Normal, Urine Leukocyte Esterase Negative 07/15/19 05:50: Urine Osmolality 360L, Urine Random Sodium 145H 07/15/19 06:20: White Blood Count 3.6L, Red Blood Count 3.11L, Hemoglobin 9.3L, Hematocrit 28.5L , Mean Corpuscular Volume 92, Mean Corpuscular Hemoglobin 29.9, Mean Corpuscular Hemoglobin Concent 32.7, Red Cell Distribution Width 11.7, Platelet Count 183, Mean Platelet Volume 7.2, Neutrophils (%) (Auto) 66.3, Lymphocytes (% ) (Auto) 22.0, Monocytes (%) (Auto) 9.2, Eosinophils (%) (Auto) 2.0, Basophils ( %) (Auto) 0.6, Sodium Level 146H, Potassium Level 4.4, Chloride Level 111H, Carbon Dioxide Level 23, Anion Gap 13, Blood Urea Nitrogen 32H, Creatinine 2.9H , Estimat Glomerular Filtration Rate , Glucose Level 97, Calcium Level 7.7L, Total Bilirubin 0.3, Aspartate Amino Transf (AST/SGOT) 29, Alanine Aminotransferase (ALT/SGPT) 22, Alkaline Phosphatase 61, Total Protein 7.9, Albumin 3.1L, Globulin 4.8, Albumin/Globulin Ratio 0.6L, Uric Acid 10.2H, Magnesium Level 1.5L, Iron Level 49L, Total Iron Binding Capacity 218L, Percent Iron Saturation 22, Unsaturated Iron Binding 169, Pro-B-Type Natriuretic Peptide 1493H, Thyroid Stimulating Hormone (TSH) 0.940, Free Thyroxine 1.36, Triiodothyronine (T3) Uptake [Pending] Height (Feet): 5 Height (Inches): 1.00 Weight (Pounds): 192 General Appearance: WD/WN, alert EENT: TMs normal Neck: supple Cardiovascular: normal peripheral pulses, normal rate, regular rhythm Respiratory/Chest: chest wall non-tender, lungs clear, normal breath sounds, no respiratory distress Abdomen: normal bowel sounds, non tender, soft, no organomegaly Edema: no edema noted Arm (L), no edema noted Arm (R), no edema noted Leg (L), no edema noted Leg (R), no edema noted Pedal (L), no edema noted Pedal (R), no edema noted Generalized Neurologic: no motor/sensory deficits Chema Hendricks MD Jul 15, 2019 09:04
[2019-07-15] MEDS ORDERED: NS Irrig 1000ml ONE (10:15)
--- NOTE | 2019-07-15 10:44 | Diagnostic Imaging Report ---
Indication:Elevated Bun and Creatinine. Technique: Grayscale and duplex Doppler imaging of the kidneys performed. Comparison: None Findings: The kidneys are echogenic. There are multiple cysts of varying size. Small echogenic focus without shadowing in the right kidney noted likely an angiomyolipoma. There is no hydronephrosis.. The right kidney measures 10.1 cm. in length. The left kidney measures 10 cm. in length. The IVC is patent. Urinary bladder is unremarkable. IMPRESSION: Medical renal disease. 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
--- NOTE | 2019-07-15 11:20 | Cardiology Report ---
APPROVED REPORT EKG Measurement Heart [id number] Normal sinus rhythm Normal ECG
--- NOTE | 2019-07-15 16:56 | Consultation ---
DATE OF CONSULTATION: 07/14/2019 CARDIOLOGY CONSULTATION CONSULTING PHYSICIAN: Lance Rivas M.D. REQUESTING PHYSICIAN: Chema Hendricks M.D. REASON FOR CONSULTATION: Cardiovascular management in the setting of acute renal failure. HISTORY OF PRESENT ILLNESS: This 73-year-old female with cardiorenal disease. She was noted to have worsening renal function over the past month. Lab studies obtained several days ago revealed a potassium level of 6.1 and an elevated creatinine of over 3. The patient was instructed to come to the hospital, but was unable to get out of the house until today. In the interim, she was instructed to drink more fluids and free water, and avoid high potassium containing foods. The patient denied any chest pain or shortness of breath. She has had some leg swelling. She has not noted any change in urine output. MEDICATIONS: Prior to admission, reviewed and reconciled. ALLERGIES: Include erythromycin. PAST MEDICAL HISTORY: Cerebrovascular disease, history of cerebrovascular accident, seizure disorder, hypertension, hypertensive heart disease, chronic diastolic congestive heart failure, chronic kidney disease, history of pericardial effusion, osteoarthritis, degenerative disk disease, osteoporosis, and hypothyroidism. SOCIAL HISTORY: Negative for smoking, alcohol, or substance abuse. She lives with her daughter. FAMILY HISTORY: Noncontributory. REVIEW OF SYSTEMS: No fevers or chills. No loss of vision or hearing. No history of abnormal blood clotting. She has had a prior stroke. There is a history of thyroid disorder and she is on replacement therapy. . Her cholesterol parameters are not known. Most recent echocardiogram in the last three months revealed normal ejection fraction, concentric hypertrophy, diastolic relaxation abnormality, and trace pericardial effusion. She has not noted any change in bowel habits. PHYSICAL EXAMINATION: VITAL SIGNS: Afebrile, blood pressure 149/73, pulse 87, and respiratory rate 16. HEENT: Conjunctivae are pink. Sclerae are anicteric. Arcus senilis. Oropharynx clear. Mucous membranes dry. NECK: Supple. Jugular venous pressure normal. LUNGS: Clear. CARDIAC: Regular rhythm and rate. Normal S1 and S2 with a fourth heart sound and a 1/6 systolic murmur at apex. ABDOMEN: Soft and nontender. EXTREMITIES: Good pulses and 1+ dependent edema. NEUROLOGIC: Nonfocal. LABORATORY DATA: Reviewed. IMPRESSION: 1. Acute on chronic renal failure. 2. Hypertensive heart disease. 3. History of pericardial effusion. 4. Hyperkalemia, recovered. 5. Hypothyroidism, on replacement therapy. PLAN: 1. Hydration. 2. Renal scan. 3. Monitor electrolytes. 4. Check urine lytes. 5. Optimize antihypertensive control and hemodynamics. Lance Rivas M.D. DR: KALE JOB#: [id number] CC:
--- NOTE | 2019-07-15 16:56 | History and Physical Report ---
DATE OF ADMISSION: 07/14/2019 CHIEF COMPLAINT: Acute on chronic renal failure. HISTORY OF PRESENT ILLNESS: The patient is a 73-year-old female well known to me. She has a history of chronic kidney disease and hypertension. She has a prior history of pericardial effusion, leukopenia, stroke, and osteoarthritis. She presented from home with complaints of worsening renal failure. The patient last was seen by her fibreglass laminator last week. Routine laboratory tests showed significant worsening of her renal function. In light of the patient's renal failure, she is now admitted for further evaluation and care. The patient is otherwise without complaints. She denies any fever or chills. She has had no nausea, no vomiting. Denies any diarrhea. She denies any recent changes in her medications. According to the patient, she has been drinking and eating well. PAST MEDICAL HISTORY: As above. PAST SURGICAL HISTORY: As above. CURRENT MEDICATIONS: Reconciled and reviewed. ALLERGIES: History of allergy to erythromycin. FAMILY HISTORY: None. SOCIAL HISTORY: There is no known history of tobacco, ethanol, or drugs. REVIEW OF SYSTEMS: GENERAL: No fevers or chills. HEENT: No headaches or visual changes. CARDIOPULMONARY: No chest pain or shortness of breath. GASTROINTESTINAL: No nausea or vomiting. GENITOURINARY: No urgency or frequency. MUSCULOSKELETAL: No joint pain or swelling. NEUROLOGICAL: No evidence of seizures. PHYSICAL EXAMINATION: VITAL SIGNS: Temperature 98.6, pulse 81, respirations 16, and blood pressure 127/64. GENERAL: The patient is well developed, in no apparent distress. HEART: Regular rate and rhythm. LUNGS: Clear. ABDOMEN: Soft, nontender, and nondistended. EXTREMITIES: Without clubbing, cyanosis, or edema. NEUROLOGIC: Motor strength is 5/5 bilaterally. Sensation is intact bilaterally. LABORATORY DATA: Sodium 141, potassium 4.7, BUN 42, and creatinine 3.5. White count 3, hemoglobin 9, hematocrit 30, and platelets 179,000. UA was clear. ASSESSMENT: This is a 73-year-old female with a history of hypertension and chronic kidney disease, and prior history of pericardial effusion, leukopenia, and ischemic cardiomyopathy, admitted with complaints of acute renal failure suspect secondary to dehydration. PROBLEM LIST: 1. Acute on chronic renal failure. 2. Dehydration. 3. Hypertensive heart disease. 4. History of asthma. 5. Obesity. 6. History of leukopenia. 7. History of ischemic cardiomyopathy. PLAN: 1. IV hydration. 2. Continue current cardiac regimen. 3. Renal and Cardiology evaluations. 4. DVT and stress ulcer prophylaxes. 5. Plan of care has been discussed with the patient's daughter. Chema Hendricks M.D. DR: KENN JOB#: [id number] CC:
--- NOTE | 2019-07-15 17:30 | Consultation ---
DATE OF CONSULTATION: ADDENDUM PHYSICAL EXAMINATION: VITAL SIGNS: Temperature 98.1, pulse 75, respirations 19, blood pressure 147/78, O2 saturation 98%. HEAD, EYES, EARS, NOSE, AND THROAT: Sclerae are nonicteric. Ocular motions intact in all directions. Oral mucosa moist. NECK: No adenopathy or thyroid enlargement. LUNGS: Clear. HEART: Rhythm is regular. I hear no murmur. ABDOMEN: Soft. No organomegaly or masses. EXTREMITIES: No edema, cyanosis, or clubbing. There are degenerative changes in the knees. NEUROLOGIC: She is alert and responsive. Ocular motions intact in all directions. There is a questionable facial asymmetry. Tongue is midline. She is dysarthric. She moves all extremities. PERTINENT LABORATORY DATA: On 07/14/2019 BUN 42, creatinine 3.58. On 07/15/2019 after hydration, BUN 32, creatinine 2.9, sodium 146, potassium 4.4, chloride 111, CO2 is 23. Uric acid 10.2. The albumin is 3.1. TSH is 0.94. White count 3.6, hemoglobin is 9.3. Urinalysis dipstick negative. IMPRESSION: 1. Chronic kidney disease, likely stage 4 or 5 due to hypertensive nephrosclerosis. 2. Possible superimposed prerenal azotemia. 3. Severe hypertension. 4. I believe she has had elevated PTH in the past and she has been on treatment for the above with vitamin D. 5. Anemia of chronic kidney disease. PLAN: At this time, hydration seems to be adequate. We can stop per IVs. She will need dialysis vascular access in the near future for possible dialysis, but I think we can hold off for now and educate the patient and family. The patient's magnesium level is low and I would give magnesium oxide. Jose Lemus M.D. DR: KRISHNA JOB#: [id number] CC:
--- NOTE | 2019-07-15 17:45 | Consultation ---
DATE OF CONSULTATION: 07/15/2019 NOTE: INCOMPLETE DICTATION NEPHROLOGY CONSULTATION CONSULTING PHYSICIAN: Jose Lemus M.D. REFERRING PHYSICIANS: 1. Chema Hendricks M.D. 2. Lance Rivas M.D. REASON FOR CONSULTATION: Renal failure. HISTORY OF PRESENT ILLNESS: The patient is well known to me, has a history of severe hypertension, prior CVA, and chronic kidney disease, likely stage 4 or 5. When seen in my office on May 05, BUN 35, creatinine 3.3, on March 03, BUN 32, creatinine 2.7, and on December 17, 2018, BUN 37, creatinine 3.0. She presents with abnormal renal function. The patient is a poor historian, has a history of prior CVA. ALLERGIES: Apparently to erythromycin. HOME MEDICATIONS: From my office records hydralazine 100 mg t.i.d., hydrocodone, [place] p.r.n., diphenhydramine p.r.n., levothyroxine 125 mcg daily, metoprolol 25 mg b.i.d., Protonix 40 mg daily, nifedipine 60 mg b.i.d., clonidine 0.2 mg in the morning and 0.4 mg in the evening, vitamin D 2000 units two tablets b.i.d., and ferrous sulfate 325 daily. HABITS: She smoked cigarettes in the distant past and quit. No alcohol or drugs. SOCIAL HISTORY: She lives with family. SURGICAL HISTORY: Hysterectomy. SYSTEM REVIEW: HEAD, EYES, EARS, NOSE, AND THROAT: Vision and hearing was good. ENDOCRINE: She is not having diabetes. She has had obesity and hypothyroidism. PULMONARY: Denies shortness of breath, chronic cough, asthma. CARDIAC: History of severe hypertensive and hypertensive cardiovascular disease. No definite MD. GASTROINTESTINAL: No current nausea, vomiting, or abdominal pain. GENITOURINARY: She has urinary incontinence. No dysuria or hematuria. NEUROLOGIC: History of CVA with left-sided weakness and dysarthria and some cognitive deficits. PHYSICAL EXAMINATION: GENERAL: The patient is alert, obese lady, seen in bed. VITAL SIGNS: Blood pressure 147/78, pulse ox 98%, heart rate 75, temperature 98.1. HEAD, EYES, EARS, NOSE, AND THROAT: Sclerae are nonicteric. Ocular motions intact in all directions. Oral mucosa moist. NECK: No adenopathy. LUNGS: Clear. HEART: Rhythm is regular. I hear no murmur. ABDOMEN: Obese and soft. I am unable to feel liver or spleen. EXTREMITIES: No edema, cyanosis, or clubbing. There is [id number] degenerative changes in the knees. NEUROLOGIC: She is alert and responsive. Ocular motions intact in all directions. There is a questionable facial asymmetry. There is mild dysarthria. She moves all extremities. Jose Lemus M.D. DR: TINA JOB#: [id number] CC:
[2019-07-15] MEDS ORDERED: NIFEDIPINE ER60 M2 ORAL (18:44)
[2019-07-15] MEDS ORDERED: NIFEDIPINE ER60 M3 ORAL (18:48)
[2019-07-15] MEDS ORDERED: PANTOPRAZOLE SO40 MG ORAL (18:48)
[2019-07-15] MEDS ORDERED: VITAMIN D1000 UNI1 ORAL (18:48)
[2019-07-15] MEDS ORDERED: SENSIPAR30 MG ORAL (18:50)
--- NOTE | 2019-07-15 19:15 | NUR ---
NURSE NOTES: Received a report from ENRIQUE Pineda. Pt is in stable condition. AAOX4. On room air. No c/o pain/discomfort. IV site is patent and intact. Bed in lowest position. Bed alarm is on. Call light within reach. Will continue to monitor.
[2019-07-15] MEDS: cloNIDine 0.2mg Tab ORAL SCH (20:15)
[2019-07-15] MEDS ORDERED: ADALAT20 MG ORAL (20:17)
[2019-07-16] VITALS: BP 151/82
--- NOTE | 2019-07-16 02:00 | Progress Note ---
DATE: 07/15/2019 CARDIOLOGY PROGRESS NOTE SUBJECTIVE: The patient remains on IV fluids. Urine output is good. She has no shortness of breath. OBJECTIVE: VITAL SIGNS: Blood pressure 157/82, pulse 81, respirations 17. LUNGS: Clear. CARDIAC: Regular. Normal S1, S2. There is a fourth heart sound. ABDOMEN: Soft. EXTREMITIES: Trace dependent edema. LABORATORY DATA: White count 3.6, hemoglobin 9.3. Sodium 146, potassium 4.4, chloride 111, BUN 32, creatinine 2.9, magnesium 1.5. IMPRESSION: 1. Hypomagnesemia. 2. Dehydration. 3. Acute on chronic diastolic congestive heart failure. 4. Mild protein-calorie malnutrition. 5. Acute on chronic renal failure. 6. Hyperchloremia. 7. Hypertensive heart disease without an adequate blood pressure control. 8. History of pericardial effusion. 9. Anemia of chronic kidney disease. PLAN: 1. Free water replacement. 2. Monitor renal function. 3. IV magnesium. 4. Monitor volume status. 5. Titrate and optimize antihypertensive control. Lance Rivas M.D. DR: FLORENCIO JOB#: [id number] CC:
[2019-07-16 04:00] VITALS: BP 148/70
[2019-07-16] MEDS: Levothyroxine 125mcg tab ORAL SCH (06:02)
[2019-07-16] MEDS: HydrALAZINE 50mg tab ORAL SCH ×3 (06:02→22:34)
[2019-07-16 06:31] LABS: HEMATOCRIT 31.3 % (37.0-47.0); HEMOGLOBIN 10.1 G/DL (12.0-16.0); MEAN CORPUSCULAR VOLUME 93 FL (80-99); PLATELET COUNT 189 K/UL (150-450); RED BLOOD COUNT 3.37 M/UL (4.20-5.40); RED CELL DISTRIBUTION WIDTH 11.8 % (11.6-14.8); WHITE BLOOD COUNT 2.9 K/UL (4.8-10.8)
[2019-07-16 06:47] LABS: ALANINE AMINOTRANSFERASE 23 U/L (12-78); ALBUMIN 3.4 G/DL (3.4-5.0); ALBUMIN/GLOBULIN RATIO 0.7 (1.0-2.7); ALKALINE PHOSPHATASE 67 U/L (46-116); ANION GAP 14 mmol/L (5-15); ASPARTATE AMINO TRANSFERASE 39 U/L (15-37); BILIRUBIN,TOTAL 0.4 MG/DL (0.2-1.0); BLOOD UREA NITROGEN 27 mg/dL (7-18); CALCIUM 8.8 MG/DL (8.5-10.1); CARBON DIOXIDE 22 MMOL/L (21-32); CHLORIDE 110 MMOL/L (98-107); CREATININE 2.9 MG/DL (0.55-1.30); POTASSIUM 4.5 MMOL/L (3.5-5.1); SODIUM 146 MMOL/L (136-145)
--- NOTE | 2019-07-16 07:10 | NUR ---
HAND-OFF: Report given to Donnell Desouza RN.
--- NOTE | 2019-07-16 07:37 | NUR ---
NURSE NOTES: PT AXOX4, CALM, RESTING IN BED EATING BREAKFAST. DENIES PAIN AT THIS TIME. DENIES SOB OR DIZZINESS WHEN AMBULATING. PT HAS WALKER AT BEDSIDE. PT EDUCATED ON FALL/SAFETY PRECAUTIONS AND TO CALL STAFF BEFORE AMBULATING. PT VERBALIZED UNDERSTANDING. IN NO APPARENT DISTRESS AT THIS TIME. BED IN LOWEST POSITION WITH BEDSIDE RAILS X2 RAISED. CALL LIGHT WITHIN REACH. WILL CONTINUE TO MONITOR.
[2019-07-16 07:53] VITALS: BP 142/73
--- NOTE | 2019-07-16 08:11 | NUR ---
CASE MANAGEMENT:REVIEW 73 YR OLD FEMALE SENT TO ER BY DR AZEVEDO CC: WORSENING RENAL FUNCTION SI: RENAL FAILURE 98.6 87 16 149/73 96% ON RA BUN+42 CR+3.5 IS: 500CC NS BOLUS : TO MED/SURG [facility] 07/16/19 SI: RENAL FAILURE 98.6 81 18 142/73 98% ON RA WBC-2.9 BUN+27 CR+2.9 IS: CLONIDINE PO QD CALCITROL PO QD PROTONIX PO QD NIFEDIPINE PO BID SYNTHROID PO QD HYDRALAZINE PO Q8HRS LOPRESSOR PO Q12 HEPARIN SQ Q12 : MED/SURG STATUS 4 [facility]
[2019-07-16] MEDS: Vitamin D 400 INTLU TAB ORAL SCH (08:33)
[2019-07-16] MEDS: cloNIDine 0.2mg Tab ORAL SCH ×2 (08:33→21:10)
[2019-07-16] MEDS: Calcitriol 0.25mcg Cap ORAL SCH (08:33)
[2019-07-16] MEDS: NIFEdipine 10mg cap ORAL SCH ×2 (08:34→17:26)
[2019-07-16] MEDS: Heparin 5000 units/ml inj SUBQ SCH ×2 (08:41→21:11)
[2019-07-16 12:00] VITALS: BP 144/80
--- NOTE | 2019-07-16 13:57 | Nephrology Progress Note ---
Assessment/Plan Problem List: (1) Hypertensive nephrosclerosis (2) Anemia in chronic kidney disease (3) CKD (chronic kidney disease) stage 4, GFR 15-29 ml/min Plan lab to baseline, increase hydralazine 100 tid with hold parmeters Subjective Constitutional: Reports: weakness HEENT: Reports: no symptoms Genitourinary: Reports: incontinence Neurologic/Psychiatric: Reports: no symptoms Objective Objective Last 24 Hour Vital Signs Date Time Temp Pulse Resp B/P (MAP) Pulse Ox O2 Delivery O2 Flow Rate FiO2 07/16/19 12:00 98.3 83 18 144/80 (101) 97 07/16/19 09:00 Room Air 07/16/19 08:34 81 142/73 07/16/19 08:33 142/73 07/16/19 08:33 81 142/73 07/16/19 07:53 98.6 81 18 142/73 (96) 98 81 07/16/19 06:02 148/70 07/16/19 04:00 98.5 77 17 148/70 (96) 97 77 07/16/19 00:00 97.4 68 20 151/82 (105) 96 68 07/15/19 21:30 157/82 07/15/19 21:27 81 17 157/82 (107) 81 07/15/19 21:00 Room Air 07/15/19 20:16 77 155/85 07/15/19 20:15 155/85 07/15/19 20:00 99.1 77 18 155/85 (108) 95 77 07/15/19 18:00 151/82 (105) 07/15/19 17:21 85 167/92 07/15/19 16:11 99.2 85 19 167/92 (117) 96 Intake and Output 07/15/19 07/16/19 19:00 07:00 Intake Total 860 ml 120 ml Balance 860 ml 120 ml Intake Oral 360 ml 120 ml IV Total 500 ml # Voids 4 3 # Bowel Movements 2 Laboratory Tests 07/16/19 05:30: White Blood Count 2.9L, Red Blood Count 3.37L, Hemoglobin 10.1L, Hematocrit 31.3L, Mean Corpuscular Volume 93, Mean Corpuscular Hemoglobin 29.9, Mean Corpuscular Hemoglobin Concent 32.2, Red Cell Distribution Width 11.8, Platelet Count 189, Mean Platelet Volume 6.9, Neutrophils (%) (Auto) , Lymphocytes (%) ( Auto) , Monocytes (%) (Auto) , Eosinophils (%) (Auto) , Basophils (%) (Auto) , Differential Total Cells Counted 100, Neutrophils % (Manual) 61, Lymphocytes % ( Manual) 27, Monocytes % (Manual) 10, Eosinophils % (Manual) 2, Basophils % ( Manual) 0, Band Neutrophils 0, Platelet Estimate Adequate, Platelet Morphology Normal, Sodium Level 146H, Potassium Level 4.5, Chloride Level 110H, Carbon Dioxide Level 22, Anion Gap 14, Blood Urea Nitrogen 27H, Creatinine 2.9H, Estimat Glomerular Filtration Rate , Glucose Level 95, Calcium Level 8.8, Magnesium Level 2.3, Total Bilirubin 0.4, Aspartate Amino Transf (AST/SGOT) 39H , Alanine Aminotransferase (ALT/SGPT) 23, Alkaline Phosphatase 67, Pro-B-Type Natriuretic Peptide 2628H, Total Protein 8.5H, Albumin 3.4, Globulin 5.1, Albumin/Globulin Ratio 0.7L Height (Feet): 5 Height (Inches): 1.00 Weight (Pounds): 183 General Appearance: no apparent distress, obese EENT: normal ENT inspection Cardiovascular: regular rhythm Respiratory/Chest: normal breath sounds Abdomen: non tender, soft Extremities: other - no edema Neurologic: alert, motor weakness Jose Lemus MD Jul 16, 2019 13:57
[2019-07-16 16:00] VITALS: BP 138/77
--- NOTE | 2019-07-16 17:06 | General Progress Note ---
Assessment/Plan Problem List: (1) Neutropenia ICD Codes: D70.9 - Neutropenia, unspecified SNOMED: 808535885 (2) Dehydration ICD Codes: E86.0 - Dehydration SNOMED: 73813329 (3) Oliguria ICD Codes: R34 - Oliguria SNOMED: 68192435 (4) Chronic kidney disease, stage III (moderate) ICD Codes: N18.3 - Chronic kidney disease, stage III (moderate) SNOMED: 478397531 Status: stable Assessment/Plan: cont ivf- defer to renal replace lytes as needed monitor renal fxn push fluids dc planning message left with dtr regarding dc planning. await call back Subjective ROS Limited/Unobtainable: No Constitutional: Reports: no symptoms HEENT: Reports: no symptoms Cardiovascular: Reports: edema Respiratory: Reports: no symptoms Gastrointestinal/Abdominal: Reports: no symptoms Genitourinary: Reports: no symptoms Neurologic/Psychiatric: Reports: pre-existing deficit Endocrine: Reports: no symptoms Hematologic/Lymphatic: Reports: anemia Allergies: Coded Allergies: ERYTHROMYCIN BASE (Unverified Allergy, Intermediate, 07/14/19) Per patient not allergic to medications or food All Systems: reviewed and negative except above Subjective no events. w/o complaints. no cp/sob. renal fxn improving. labs reviewed. per renal- renal fxn back to baseline. Objective Last 24 Hour Vital Signs Date Time Temp Pulse Resp B/P (MAP) Pulse Ox O2 Delivery O2 Flow Rate FiO2 07/16/19 16:00 98.4 79 18 138/77 (97) 99 07/16/19 14:10 144/80 07/16/19 12:00 98.3 83 18 144/80 (101) 97 07/16/19 09:00 Room Air 07/16/19 08:34 81 142/73 07/16/19 08:33 142/73 07/16/19 08:33 81 142/73 07/16/19 07:53 98.6 81 18 142/73 (96) 98 81 07/16/19 06:02 148/70 07/16/19 04:00 98.5 77 17 148/70 (96) 97 77 07/16/19 00:00 97.4 68 20 151/82 (105) 96 68 07/15/19 21:30 157/82 07/15/19 21:27 81 17 157/82 (107) 81 8/27/19 21:00 Room Air 07/15/19 20:16 77 155/85 07/15/19 20:15 155/85 07/15/19 20:00 99.1 77 18 155/85 (108) 95 77 07/15/19 18:00 151/82 (105) 07/15/19 17:21 85 167/92 Intake and Output 07/15/19 07/16/19 19:00 07:00 Intake Total 860 ml 120 ml Balance 860 ml 120 ml Intake Oral 360 ml 120 ml IV Total 500 ml # Voids 4 3 # Bowel Movements 2 Laboratory Tests 07/16/19 05:30: White Blood Count 2.9L, Red Blood Count 3.37L, Hemoglobin 10.1L, Hematocrit 31.3L, Mean Corpuscular Volume 93, Mean Corpuscular Hemoglobin 29.9, Mean Corpuscular Hemoglobin Concent 32.2, Red Cell Distribution Width 11.8, Platelet Count 189, Mean Platelet Volume 6.9, Neutrophils (%) (Auto) , Lymphocytes (%) ( Auto) , Monocytes (%) (Auto) , Eosinophils (%) (Auto) , Basophils (%) (Auto) , Differential Total Cells Counted 100, Neutrophils % (Manual) 61, Lymphocytes % ( Manual) 27, Monocytes % (Manual) 10, Eosinophils % (Manual) 2, Basophils % ( Manual) 0, Band Neutrophils 0, Platelet Estimate Adequate, Platelet Morphology Normal, Sodium Level 146H, Potassium Level 4.5, Chloride Level 110H, Carbon Dioxide Level 22, Anion Gap 14, Blood Urea Nitrogen 27H, Creatinine 2.9H, Estimat Glomerular Filtration Rate , Glucose Level 95, Calcium Level 8.8, Magnesium Level 2.3, Total Bilirubin 0.4, Aspartate Amino Transf (AST/SGOT) 39H , Alanine Aminotransferase (ALT/SGPT) 23, Alkaline Phosphatase 67, Pro-B-Type Natriuretic Peptide 2628H, Total Protein 8.5H, Albumin 3.4, Globulin 5.1, Albumin/Globulin Ratio 0.7L Height (Feet): 5 Height (Inches): 1.00 Weight (Pounds): 183 Objective General Appearance: WD/WN, alert EENT: TMs normal Neck: supple Cardiovascular: normal peripheral pulses, normal rate, regular rhythm Respiratory/Chest: chest wall non-tender, lungs clear, normal breath sounds, no respiratory distress Abdomen: normal bowel sounds, non tender, soft, no organomegaly Edema: no edema noted Arm (L), no edema noted Arm (R), no edema noted Leg (L), no edema noted Leg (R), no edema noted Pedal (L), no edema noted Pedal (R), no edema noted Generalized Neurologic: no motor/sensory deficits Chema Hendricks MD Jul 16, 2019 17:06
--- NOTE | 2019-07-16 19:05 | NUR ---
HAND-OFF: Report given to Harpreet MCCORMICK RN.
--- NOTE | 2019-07-16 19:15 | NUR ---
NURSE NOTES: Received a report from Donnell Desouza RN. Pt is in stable condition. AAOX4. On room air. No c/o pain/discomfort. IV site is patent and intact. Bed in lowest position. Bed alarm is on. Call light within reach. Will continue to monitor.
[2019-07-16 20:00] VITALS: BP 136/71
[2019-07-17] VITALS: BP 127/65
[2019-07-17 04:00] VITALS: BP 151/86
--- NOTE | 2019-07-17 05:15 | Progress Note ---
DATE: 07/16/2019 CARDIOLOGY PROGRESS NOTE SUBJECTIVE: The patient is without shortness of breath or chest pain. She denies leg swelling, but has not been out of bed. OBJECTIVE: VITAL SIGNS: Afebrile, blood pressure 138/77, pulse 79, and respiratory rate 18. LUNGS: Clear. CARDIAC: Regular. Normal S1 and S2 with a 1/6 systolic apical murmur. No rub. ABDOMEN: Obese. EXTREMITIES: With trace dependent edema. LABORATORY DATA: White count 2.9, hemoglobin 10.1, and platelets 189,000. Sodium 146, potassium 4.5, bicarbonate 22, BUN 27, and creatinine 2.9. Pro-natriuretic peptide 2600. IMPRESSION: 1. Dehydration. 2. Hypernatremia. 3. History of pericardial effusion. 4. Hypothyroidism. 5. Hypertensive heart disease. 6. Acute on chronic diastolic congestive heart failure. PLAN: 1. Continue hypotonic IV fluids. 2. Titrate antihypertensives. 3. Expect elevated natriuretic peptide essay with chronic kidney disease. 4. Mobilize. Lance Rivas M.D. DR: KALE JOB#: [id number] CC:
[2019-07-17] MEDS: HydrALAZINE 50mg tab ORAL SCH ×2 (06:17→14:00)
[2019-07-17] MEDS: Levothyroxine 125mcg tab ORAL SCH (06:17)
--- NOTE | 2019-07-17 06:53 | NUR ---
HAND-OFF: Report given to Donnell Desouza RN.
[2019-07-17 07:12] LABS: HEMATOCRIT 31.6 % (37.0-47.0); HEMOGLOBIN 10.4 G/DL (12.0-16.0); MEAN CORPUSCULAR VOLUME 91 FL (80-99); PLATELET COUNT 202 K/UL (150-450); RED BLOOD COUNT 3.46 M/UL (4.20-5.40); RED CELL DISTRIBUTION WIDTH 12.6 % (11.6-14.8); WHITE BLOOD COUNT 2.7 K/UL (4.8-10.8)
[2019-07-17 07:15] LABS: ANION GAP 12 mmol/L (5-15); BLOOD UREA NITROGEN 26 mg/dL (7-18); CALCIUM 8.9 MG/DL (8.5-10.1); CARBON DIOXIDE 23 MMOL/L (21-32); CHLORIDE 108 MMOL/L (98-107); POTASSIUM 4.8 MMOL/L (3.5-5.1); SODIUM 143 MMOL/L (136-145)
--- NOTE | 2019-07-17 07:50 | NUR ---
NURSE NOTES: PT AXOX4, CALM, EATING BREAKFAST IN BED. PT CALLED NR AND FOUND WITH IV ACCESS OUT OF HAND AND SMALL AMOUNT OF BLEEDING. PT STATES SHE DOESN'T KNOW WHAT HAPPENED. RN CLEANED SITE AND COVERED WITH DRY DRESSING. IN NO APPARENT DISTRESS AT THIS TIME. WILL CONTINUE TO MONITOR.
[2019-07-17 08:00] VITALS: BP 150/77
[2019-07-17] MEDS: cloNIDine 0.2mg Tab ORAL SCH (08:50)
[2019-07-17] MEDS: Vitamin D 400 INTLU TAB ORAL SCH (08:50)
[2019-07-17] MEDS: Calcitriol 0.25mcg Cap ORAL SCH (08:50)
[2019-07-17] MEDS: Heparin 5000 units/ml inj SUBQ SCH (08:52)
[2019-07-17] MEDS: NIFEdipine 10mg cap ORAL SCH ×2 (09:11→17:34)
--- NOTE | 2019-07-17 10:49 | NUR ---
NURSE NOTES: RN LEFT MESSAGE FOR MONICA BERGER REGARDING DISCHARGE ORDER HOME WITH HOME HEALTH. LEFT CALL [facility] NUMBER FOR ANY QUESTIONS.
--- NOTE | 2019-07-17 11:30 | NUR ---
PT EVALUATION NOTE Patient seen for initial evaluation, see complete evaluation for details. Patient presents with generalized weakness which affects patient's ability to perform mobility tasks. Patient requires SBA for transfers and ambulation x 100 ft with a FWW. Patient will benefit from skilled inpatient PT intervention to address strength, balance, safety and functional mobility. Anticipate discharge home once medically cleared by MD. Patient appears to have necessary DME at home. Addendum: 07/17/19 at 1323 by MEREDITH CERVANTES PT Amended: Links added.
[2019-07-17 12:00] VITALS: BP 114/58
--- NOTE | 2019-07-17 12:38 | Nephrology Progress Note ---
Assessment/Plan Problem List: (1) Hypertensive nephrosclerosis (2) Anemia in chronic kidney disease (3) CKD (chronic kidney disease) stage 4, GFR 15-29 ml/min Plan lab to baseline, increase hydralazine 100 tid with hold parmeters Subjective Constitutional: Reports: no symptoms HEENT: Reports: no symptoms Genitourinary: Reports: incontinence Neurologic/Psychiatric: Reports: pre-existing deficit Objective Objective Last 24 Hour Vital Signs Date Time Temp Pulse Resp B/P (MAP) Pulse Ox O2 Delivery O2 Flow Rate FiO2 07/17/19 12:00 99.0 58 19 114/58 (76) 98 07/17/19 09:11 88 150/77 07/17/19 09:00 Room Air 07/17/19 08:50 150/77 07/17/19 08:50 88 150/77 07/17/19 08:00 99.5 88 19 150/77 (101) 96 07/17/19 06:17 151/86 07/17/19 04:00 97.8 74 19 151/86 (107) 99 07/17/19 00:00 98.0 75 20 127/65 (85) 98 07/16/19 22:34 128/64 07/16/19 21:10 136/71 07/16/19 21:10 78 136/71 07/16/19 21:00 Room Air 07/16/19 20:00 98.7 78 20 136/71 (92) 97 07/16/19 17:26 79 138/77 07/16/19 16:00 98.4 79 18 138/77 (97) 99 07/16/19 14:10 144/80 Intake and Output 07/16/19 07/17/19 19:00 07:00 Intake Total 1000 ml 1000 ml Balance 1000 ml 1000 ml Intake Oral 1000 ml 1000 ml # Voids 4 3 # Bowel Movements 1 1 Laboratory Tests 07/17/19 06:28: White Blood Count 2.7L, Red Blood Count 3.46L, Hemoglobin 10.4L, Hematocrit 31.6L, Mean Corpuscular Volume 91, Mean Corpuscular Hemoglobin 30.2, Mean Corpuscular Hemoglobin Concent 33.0, Red Cell Distribution Width 12.6, Platelet Count 202, Mean Platelet Volume 7.3, Neutrophils (%) (Auto) , Lymphocytes (%) ( Auto) , Monocytes (%) (Auto) , Eosinophils (%) (Auto) , Basophils (%) (Auto) , Differential Total Cells Counted 100, Neutrophils % (Manual) 61, Lymphocytes % ( Manual) 29, Monocytes % (Manual) 7, Eosinophils % (Manual) 3, Basophils % ( Manual) 0, Band Neutrophils 0, Platelet Estimate Adequate, Platelet Morphology Normal, Red Blood Cell Morphology Normal, Sodium Level 143, Potassium Level 4.8 , Chloride Level 108H, Carbon Dioxide Level 23, Anion Gap 12, Blood Urea Nitrogen 26H, Creatinine 3.0H, Estimat Glomerular Filtration Rate , Glucose Level 102, Calcium Level 8.9 Height (Feet): 5 Height (Inches): 1.00 Weight (Pounds): 183 General Appearance: no apparent distress, obese EENT: normal ENT inspection Neck: normal alignment, supple Cardiovascular: normal rate Respiratory/Chest: lungs clear Abdomen: non tender, soft Extremities: other - no edeema Neurologic: motor weakness Jose Lemus MD Jul 17, 2019 12:38
--- NOTE | 2019-07-17 13:47 | NUR ---
NURSE NOTES: RN SPOKE TO BENNY AND MADE AWARE PT STATES SHE WAS RECEIVING HOME HEALTH SERVICES BEFORE HOSPITALIZATION BUT UNABLE TO RECALL NAME OF COMPANY. PER BENNY, SHE WILL REFER TO [facility].
--- NOTE | 2019-07-17 15:00 | NUR ---
NURSE NOTES: RN LEFT MESSAGE FOR BENNY REGARDING UPDATE ON HOME HEALTH SERVICES.
--- NOTE | 2019-07-17 15:33 | NUR ---
DISCHARGE PLANNED PATIENT HAS BEEN REFERRED TO [facility] T: [phone] F: [phone] CALLED [facility] AND THEY CONFIRMED PATIENT HAD BEEN ON SERVICE WITH THEM
--- NOTE | 2019-07-17 15:59 | NUR ---
NURSE NOTES: RN SPOKE TO BENNY, AND [facility] WILL RESUME SERVICES. RN SPOKE TO MONICA BERGER, DAUGHTER, AND MADE AWARE. 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 RN SPOKE TO [facility] APPOINTMENT SETTER WHO CANNOT PROVIDE [facility] BECAUSE ADDRESS IS OUTSIDE [address]. RN SPOKE TO BENNY , AND NEED ORDER FROM DR AZEVEDO FOR AMBULANCE.
[2019-07-17 16:00] VITALS: BP 165/87
--- NOTE | 2019-07-17 16:52 | NUR ---
NURSE NOTES: PUMP OILER PROVIDED [facility]. PT AND DTG AGREES TO TRANSPORTATION BY [facility]. BELONGINGS CHECKED AT BEDSIDE. ALL BELONGINGS NOTED. WILL CONTINUE TO MONITOR.
[2019-07-17 18:10] VITALS: BP 117/58
--- NOTE | 2019-07-17 18:35 | NUR ---
NURSE NOTES: PT WAS EDUCATED ON RENAL DIET DUE TO CHRONIC KIDNEY DISEASE. RN INCLUDED RENAL DIET INFORMATION IN DISCHARGE PACKET.
--- NOTE | 2019-07-17 18:40 | NUR ---
NURSE NOTES: PT DISCHARGED VIA [facility]. PT WAS ESCORTED TO [facility] IN FRONT OF HOSPITAL. PT TOOK BELONGINGS AND PERSONAL WALKER. VSS. PT EDUCATED MONICA ([facility]) PT WILL BE TAKING HER EVENING BP MEDS AT HOSPITAL. MONICA VERBALIZED UNDERSTANDING. RN EDUCATED TO FOLLOW UP WITH PRIMARY WITHIN 2 WEEKS. PT WAS DISCHARGED IN STABLE CONDITION. Addendum: 07/17/19 at 1852 by JAROD PALMER RN RN PT WAS BROUGHT BACK UP TO FLOOR. DYNAMOMETER TUNER NOT OUTSIDE, DESPITE RECEIVING CALL FROM [employer] [facility] [employer] DISPATCH [facility]. PER DISPATCH, THEY WILL SEND ANOTHER CAB TO BINDER FOLDER OPERATOR PT. YEHUDA MADE AWARE.
--- NOTE | 2019-07-17 18:57 | NUR ---
HAND-OFF: Report given to Harpreet MCCORMICK RN.
--- NOTE | 2019-07-17 19:14 | NUR ---
NURSE NOTES: RN ESCORTED PT OUT TO [facility]. PT WAS DISCHARGED IN STABLE CONDITION.
--- NOTE | 2019-07-17 23:15 | Discharge Summary ---
DATE OF ADMISSION: 07/14/2019 DATE OF DISCHARGE: 07/17/2019 ADMITTING DIAGNOSES: 1. Acute on chronic renal failure. 2. History of stroke. 3. Hypertension. 4. History of pericardial effusion. 5. History of leukopenia. DISCHARGE DIAGNOSES: 1. Acute on chronic renal failure. 2. History of stroke. 3. Hypertension. 4. History of pericardial effusion. 5. History of leukopenia. 6. Recovered acute renal failure. HOSPITAL COURSE: This is a pleasant female. She has a history of chronic kidney disease. She saw her dye house hand. Several days prior to admission, she had significant worsening of her renal function and hyperkalemia. She was admitted and hydrated aggressively. Renal ultrasound showed no evidence of any obstruction. Renal and Cardiology followed the patient. Renal function returned back to her baseline, which is around 3. The patient will follow up as an outpatient in one to two weeks as well as with the dye house hand and sole rounding machine operator. DISCHARGE MEDICATIONS: Please see discharge medication list for discharge medications. DIET: Cardiac diet. ACTIVITIES: Ad-jackelin. Chema Hendricks M.D. DR: OLVIN JOB#: [id number] CC:
--- NOTE | 2019-07-18 03:45 | Progress Note ---
DATE: 07/17/2019 SUBJECTIVE: The patient feels better. No nausea or vomiting. Tolerating diet. No shortness of breath. OBJECTIVE: VITAL SIGNS: Blood pressure 114/58 to 165/87, heart rate 58, pulse 74, and respiratory rate 19. The patient is afebrile, moderately obese. LUNGS: Diminished breath sounds. No wheezing. No rales. CARDIAC: Regular rate and rhythm. Normal S1 and S2 with a fourth heart sound. No rub. ABDOMEN: Obese. EXTREMITIES: Trace dependent edema. LABORATORY DATA: White count 2.7, hemoglobin 10.4, and platelets 202,000. Potassium 4.8, BUN 26, and creatinine 3. Pro-natriuretic peptide yesterday was 2600. IMPRESSION: 1. Chronic renal failure. 2. Euthyroid, on replacement therapy. 3. History of pericardial effusion with no signs of recurrence. 4. Acute on chronic diastolic congestive heart failure, clinically compensated. 5. . 6. Hypertensive heart disease, overall controlled blood pressure range and less frequent episodes of blood pressure spikes. PLAN: 1. Outpatient followup. 2. Avoid TESS inhibitor therapy. 3. Periodic monitoring of chemistry panel. 4. Maintain current antihypertensives. 5. Additional therapy may be added for increasing blood pressure trend as an outpatient. Lance Rivas M.D. DR: BRAVO JOB#: [id number] CC:
== END 2019-07-17 19:16 | disposition home health service (06) | DRG 682 ==
LOC: EMR 10:32 → 4E 10:44 → EDBEDREQSVC 11:00 → EDBEDREQ 11:01
DX: N17.9 Acute kidney failure, unspecified (principal); I50.33 Acute on chronic diastolic (congestive) heart failure; I13.2 Hypertensive heart and chronic kidney disease with heart failure and with stage 5 chronic kidney disease, or end stage renal disease; E44.1 Mild protein-calorie malnutrition; E86.0 Dehydration; N18.5 Chronic kidney disease, stage 5; E87.5 Hyperkalemia; D70.9 Neutropenia, unspecified; E83.42 Hypomagnesemia; Z88.1 Allergy status to other antibiotic agents; E66.9 Obesity, unspecified; Z86.73 Personal history of transient ischemic attack (TIA), and cerebral infarction without residual deficits; E03.9 Hypothyroidism, unspecified; M81.0 Age-related osteoporosis without current pathological fracture; D63.1 Anemia in chronic kidney disease
CPT/HCPCS: 36415; 76770; 80048; 80053; 81003; 83540; 83550; 83690; 83735; 83880; 83935; 84300; 84439; 84443; 84480; 84550; 85007; 85025; 93005; 99285

== ENCOUNTER 2019-08-15 10:27 | Inpatient (IN) | payer MEDICARE, OTHER ==
[~2019-08-15] VITALS: Ht 154.9 cm; Wt 85.4 kg
[~2019-08-15 10:27] MED LIST changes: +ADALAT20 MG ORAL; +CALCITRIOL0.25 MCG PO; +CLONIDINE HCL0.2 MG; +FERROUS SULFAT325 M2 ORAL; +NIFEDIPINE ER60 M2 ORAL; +NIFEDIPINE ER60 M3 ORAL; +PANTOPRAZOLE SO40 MG ORAL; +SENSIPAR30 MG ORAL; +VITAMIN D1000 UNI1 ORAL; +VITAMIN D400 INTLU ORAL
--- NOTE | 2019-08-15 12:00 | NUR ---
NURSE NOTES: Patient on floor, direct admit.
[2019-08-15 12:52] VITALS: BP 182/100
[2019-08-15 16:00] VITALS: BP 187/100
--- NOTE | 2019-08-15 17:00 | NUR ---
NURSE NOTES: Started IV in left hand, 22 gauge, intact, patent and asymptomatic.
[2019-08-15] MEDS: NIFEdipine 10mg cap ORAL SCH (17:18)
[2019-08-15] MEDS: Vitamin D 1000 IU Tab ORAL SCH (17:18)
[2019-08-15] MEDS: HydrALAZINE 25mg tab ORAL PRN (17:19)
--- NOTE | 2019-08-15 19:25 | NUR ---
HAND-OFF: Report given to RN Taryn.
[2019-08-15 20:00] VITALS: BP 161/88
--- NOTE | 2019-08-15 20:09 | NUR ---
NURSE NOTES: RECEIVED PT FROM ENRIQUE LOPEZ. PT IS AWAKE, AAOX4, ON ROOM AIR, NO ACUTE DISTRESS NOTED. PT DENIES PAIN AND SOB. IV ON LEFT HAND 22G IS INTACT AND PATENT RUNNING 1/2 NS AT 75ML/HR. WALKER NOTED AT BED SIDE. BED IS LOCKED AND LOW, BED ALARMS ACTIVE, SIDE RAILS UP X2 AND CALL LIGHT IS WITHIN REACH. WILL CONTINUE TO MONITOR.
[2019-08-15] MEDS: cloNIDine 0.2mg Tab ORAL SCH (20:26)
[2019-08-15] MEDS: HydrALAZINE 50mg tab ORAL SCH (21:43)
[2019-08-16] VITALS: BP_SYST 119; BP_SYST 132; BP_DIAS 70; BP_DIAS 79
--- NOTE | 2019-08-16 01:45 | Consultation ---
DATE OF CONSULTATION: 08/15/2019 CONSULTING PHYSICIAN: Lance Rivas M.D. REQUESTING PHYSICIAN: Dr. Chema Hendricks. REASON FOR CONSULTATION: Hypovolemia, dehydration in the setting of hypertensive heart disease. HISTORY OF PRESENT ILLNESS: This 73-year-old female with multiple medical problems and lives at home with her daughter. Over the past week, she has been increasingly withdrawn, lethargic, and anorexic. She has been unable to mobilize. She has had no chest pain or shortness of breath, but has been quite weak, it started after starting to adjust her medications and improved her clinical condition. She has failed to improve and hospitalization now initiated for further workup. PAST MEDICAL HISTORY: 1. Chronic kidney disease. 2. Cerebrovascular disease with prior CVA. 3. Seizure disorder. 4. Hypertension with hypertensive heart disease. 5. Chronic diastolic congestive heart failure. 6. History of pericardial effusion. 7. Osteoarthritis. 8. Osteoporosis. 9. Hypothyroidism. 10. Degenerative disk disease. ALLERGIES: Erythromycin. MEDICATIONS: Prior to admission, reviewed and reconciled. SOCIAL HISTORY: Negative for smoking, alcohol, or substance abuse. FAMILY HISTORY: Noncontributory. REVIEW OF SYSTEMS: No fevers or chills. She has had a slight cough that is minimally productive of sputum. She has not received a flu shot this year season. There is no history of abnormal blood clotting. There is no history of positive PPD. She has not had any change in bowel habits, although ____ frequently constipated. She does have a history of chronic kidney disease. She was hospitalized last month with acute renal failure. She has had a prior stroke. She has limited mobility without an assist device. She did have an outpatient echocardiogram within the last 6 months notable for normal ejection fraction, concentric hypertrophy, and a diastolic relaxation abnormality. There is a prior history of pericardial effusion. The patient is on thyroid replacement and has a history of hypothyroidism. There is no history of diabetes mellitus. PHYSICAL EXAMINATION: VITAL SIGNS: Blood pressure 182/100, pulse 95, respiratory rate 20, and afebrile. HEENT: Conjunctivae pink. Arcus senilis. Oropharynx clear. NECK: Supple. Jugular venous pressure is slightly elevated. No Kussmaul sign. LUNGS: Diminished breath sounds. CARDIAC: Regular rhythm and rate. Normal S1 and S2 with a fourth heart sound. No rub. There is a 1/6 systolic murmur at apex. ABDOMEN: Soft and nontender. EXTREMITIES: No edema. Symmetric lower extremity weakness. No asterixis. SKIN: With poor turgor. LABORATORY DATA: Labs are pending. EKG pending. IMPRESSION: 1. Hypertensive urgency. 2. Hypovolemia and dehydration. 3. Acute on chronic kidney disease. 4. Chronic diastolic congestive heart failure. 5. History of pericardial effusion. PLAN: 1. Hydration. 2. Titrate antihypertensives. 3. Review laboratory studies. 4. Check EKG. 5. Further recommendations will follow base on results of preliminary studies and intervention. Lance Rivas M.D. DR: KRISTAN JOB#: [id number] CC:
[2019-08-16 04:00] VITALS: BP 130/72
[2019-08-16] MEDS: Levothyroxine 125mcg tab ORAL SCH (06:10)
[2019-08-16] MEDS: HydrALAZINE 50mg tab ORAL SCH ×3 (06:10→22:20)
--- NOTE | 2019-08-16 07:27 | NUR ---
HAND-OFF: Report given to ENRIQUE Vidal. Pt is asleep, in stable condition.
--- NOTE | 2019-08-16 07:30 | NUR ---
NURSE NOTES: Received pt in bed, sleeping. Room air. No s/s of pain/distress. IV on L hand 22g intact and patent, running 1/2 NS @75 ml/hr. Side rails x 2. Bed in the lowest and locked. Call light within reach. Will continue to monitor
[2019-08-16 08:00] VITALS: BP 129/64
[2019-08-16 08:05] LABS: BASOPHILS % (AUTO) 1.2 % (0.0-2.0); HEMATOCRIT 30.5 % (37.0-47.0); HEMOGLOBIN 10.2 G/DL (12.0-16.0); LYMPHOCYTES % (AUTO) 21.7 % (20.0-45.0); MEAN CORPUSCULAR VOLUME 91 FL (80-99); MONOCYTES % (AUTO) 9.2 % (1.0-10.0); PLATELET COUNT 245 K/UL (150-450); RED BLOOD COUNT 3.37 M/UL (4.20-5.40); RED CELL DISTRIBUTION WIDTH 12.2 % (11.6-14.8); WHITE BLOOD COUNT 4.5 K/UL (4.8-10.8)
[2019-08-16 08:45] LABS: ALANINE AMINOTRANSFERASE 35 U/L (12-78); ALBUMIN 3.1 G/DL (3.4-5.0); ALBUMIN/GLOBULIN RATIO 0.7 (1.0-2.7); ALKALINE PHOSPHATASE 50 U/L (46-116); ANION GAP 14 mmol/L (5-15); ASPARTATE AMINO TRANSFERASE 48 U/L (15-37); BILIRUBIN,TOTAL 0.5 MG/DL (0.2-1.0); BLOOD UREA NITROGEN 51 mg/dL (7-18); CALCIUM 8.9 MG/DL (8.5-10.1); CARBON DIOXIDE 20 MMOL/L (21-32); CHLORIDE 104 MMOL/L (98-107); POTASSIUM 4.2 MMOL/L (3.5-5.1); SODIUM 138 MMOL/L (136-145)
[2019-08-16] MEDS: Calcitriol 0.25mcg Cap ORAL SCH (09:05)
[2019-08-16] MEDS: Vitamin D 1000 IU Tab ORAL SCH ×2 (09:05→17:26)
[2019-08-16] MEDS: NIFEdipine 10mg cap ORAL SCH ×2 (09:06→17:27)
[2019-08-16] MEDS: Sensipar 30mg Tab ORAL SCH (09:06)
[2019-08-16] MEDS: Metoprolol 25mg tab ORAL SCH (09:06)
[2019-08-16] MEDS: cloNIDine 0.2mg Tab ORAL SCH ×2 (09:06→21:00)
[2019-08-16 09:14] LABS: CREATINE KINASE 217 U/L (26-308)
[2019-08-16 12:00] VITALS: BP 117/67
[2019-08-16 16:00] VITALS: BP 160/69
[2019-08-16] MEDS: Sennosides 8.6mg tab ORAL SCH (16:32)
--- NOTE | 2019-08-16 16:45 | NUR ---
NURSE NOTES: Urine was collected and brought to lab
[2019-08-16 17:27] LABS: APPEARANCE,URINE SLIGHTLY CLOUDY; BILIRUBIN, URINE 1+ (NEGATIVE); COLOR,URINE YELLOW; GLUCOSE, URINE (UA) NEGATIVE (NEGATIVE); KETONES,URINE NEGATIVE (NEGATIVE); LEUKOCYTE ESTERASE ,URINE 1+ (NEGATIVE); NITRITE,URINE NEGATIVE (NEGATIVE); PH,URINE 5 (4.5-8.0); PROTEIN,URINE 1+ (NEGATIVE); UROBILINOGEN,URINE 1 MG/DL (0.0-1.0)
[2019-08-16] MEDS: Docusate 100mg cap ORAL SCH (17:27)
--- NOTE | 2019-08-16 19:23 | NUR ---
HAND-OFF: Report given to ENRIQUE Centeno.
--- NOTE | 2019-08-16 19:26 | NUR ---
NURSE NOTES: RECEIVED PT FROM ENRIQUE WALL. PT IS ASLEEP, ON ROOM AIR, NO ACUTE DISTRESS NOTED. IV ON LEFT HAND 22G IS INTACT AND PATENT RUNNING 1/2 NS AT 75ML/HR. WALKER IS NOTED AT BEDSIDE. BED IS LOCKED AND LOW, BED ALARMS ACTIVE, SIDE RAILS UP X2 AND CALL LIGHT IS WITHIN REACH. WILL CONTINUE TO MONITOR.
[2019-08-16 20:00] VITALS: BP 109/57
--- NOTE | 2019-08-16 20:15 | History and Physical Report ---
DATE OF ADMISSION: 08/15/2019 CHIEF COMPLAINT: Failure to thrive, acute renal failure, and dehydration. HISTORY OF PRESENT ILLNESS: The patient is a 73-year-old female, well known to me. She has a history of hypertension, stroke, DVT. She has a history of pericardial effusion and dementia. She was admitted with complaints of failure to thrive, weakness, poor p.o. intake, and dehydration. According to the patient's family, she has not been eating for the last 3 days. She has had mid-epigastric abdominal pain. There are no reports of any diarrhea or vomiting. No dysuria. There have been no recent changes in any of her medications. PAST MEDICAL HISTORY: As above. PAST SURGICAL HISTORY: Includes pericardiocentesis. CURRENT MEDICATIONS: Reconciled and reviewed. ALLERGIES: Include erythromycin. FAMILY HISTORY: Noncontributory. SOCIAL HISTORY: There is no known history of tobacco, ethanol, or drugs. REVIEW OF SYSTEMS: GENERAL: No fevers or chills. HEENT: No headaches or visual changes. CARDIOPULMONARY: No chest pain, shortness of breath. GASTROINTESTINAL: Positive nausea. Positive bowel pain. Positive anorexia. No vomiting. No diarrhea. No bright red blood per rectum. No melena. GENITOURINARY: No urgency or frequency. MUSCULOSKELETAL: No joint pain or swelling. NEUROLOGIC: No history of seizures. PHYSICAL EXAMINATION: VITAL SIGNS: Temperature is 97, pulse 97, respirations 18, and blood pressure 129/64. GENERAL: The patient is a well-developed female, in no apparent distress. She is awake and alert. HEENT: Her pupils are equal, round, reactive to light. Oropharynx clear. NECK: Supple. HEART: Regular rate and rhythm. LUNGS: Lungs are clear. ABDOMEN: Soft, nontender, nondistended. EXTREMITIES: Without clubbing, cyanosis, or edema. LABORATORY DATA: Sodium 138, potassium 4.4, bicarb 20 BUN 51, creatinine is 4. White count 4, hemoglobin 10. ASSESSMENT: This is a 73-year-old female with complaints of anorexia, acute on chronic renal failure. She has a history of hypertension, stroke, CHF. PLAN: 1. IV hydration. 2. Follow up urine studies. 3. Check a lipase. 4. CT scan of the abdomen. 5. Cardiology and renal follow up. Chema Hendricks M.D. DR: ENRIQUETA JOB#: [id number] CC:
[2019-08-16] MEDS ORDERED: cefTRIAXone 1 GM in D5W 55 ML IVPB ONE (22:15)
--- NOTE | 2019-08-16 23:00 | Consultation ---
DATE OF CONSULTATION: 08/16/2019 CONSULTING PHYSICIAN: Jose Lemus M.D. REFERRING PHYSICIAN: Chema Hendricks M.D. and Lance Rivas M.D. REASONS FOR CONSULTATION: Chronic kidney disease, possible dehydration. HISTORY OF PRESENT ILLNESS: The patient has chronic kidney disease stage 4 or 5 and I have seen her intermittently over the last 2 years. She was here in June with a creatinine of 3.5, fell to 2.9 to 3.0 and her creatinine now is 4.0. The patient is a poor historian. There is a history of prior CVA, hypertension, some gastritis, and urinary incontinence. PAST SURGICAL HISTORY: Hysterectomy. MEDICATIONS: Medication reviews from home medications include calcitriol, vitamin D, Sensipar, clonidine, ferrous sulfate, hydralazine, [place], levothyroxine, metoprolol, nifedipine, Protonix, and temazepam. It is not clear if this is a complete list. The patient is unable to provide. HABITS: She smoked cigarettes in the past and quit. No alcohol or drugs. SOCIAL HISTORY: Lives with family. SYSTEM REVIEW: HEENT: Vision, hearing is good. ENDOCRINE: No diabetes. There is a history of obesity and hypothyroidism. PULMONARY: She has no shortness of breath or chronic cough. CARDIAC: History of severe hypertension. CARDIOVASCULAR: Hypertensive cardiovascular disease. No definite WI. There is diastolic dysfunction. GASTROINTESTINAL: She has intermittent constipation. Denies nausea, vomiting, diarrhea. GENITOURINARY: She has urinary incontinence. NEUROLOGIC: She had a CVA with left-sided weakness with dysarthria and cognitive deficits. PHYSICAL EXAMINATION: GENERAL: The patient is alert, obese lady, lying in bed, in no acute distress. VITAL SIGNS: Temperature 98.2, pulse 75, blood pressure 117/67, and pulse oximetry 97. HEENT: Sclerae are nonicteric. Ocular motions intact in all directions. Oral mucosa moist. NECK: No adenopathy. LUNGS: Clear. HEART: Regular rhythm. I hear no murmur. ABDOMEN: Obese, soft. No organomegaly. EXTREMITIES: No edema. NEUROLOGIC: She is alert and responsive. She is dysarthric. Ocular motions intact in all directions. Smile is symmetric. She moves all extremities. PERTINENT LABORATORY DATA: White count 4.5, hemoglobin is 10.2. Sodium 138, potassium 4.2, chloride 104, CO2 20, BUN 51, creatinine 4.0. BNP is 1274. Albumin 3.1. TSH 0.996. IMPRESSION: 1. Chronic kidney disease, stage 4 or 5. 2. Acute kidney injury, likely from dehydration. 3. Hypertensive cardiovascular and renal disease. 4. History of prior CVA. PLAN: We will hydrate the patient cautiously. She could be having progression of her underlying chronic kidney disease, but the efforts of care will be to maintain adequate blood pressure. Hydration, nutrition. Follow up with serial labs and clinical exam. Thank you so much for allowing me to participate in the care of this patient. Jose Lemus M.D. DR: NOA JOB#: [id number] CC:
[2019-08-17] VITALS: BP 125/62
--- NOTE | 2019-08-17 | Progress Note ---
DATE: 08/16/2019 CARDIOLOGY PROGRESS NOTE SUBJECTIVE: She continues to feel weak, withdrawn, and anorectic. No chest pain or shortness of breath. OBJECTIVE: VITAL SIGNS: Blood pressure 109/57, pulse 77, respiratory rate 18, and afebrile. LUNGS: With diminished breath sounds. CARDIAC: Regular rhythm and rate. Normal S1 and S2 with no rub. ABDOMEN: Obese. EXTREMITIES: With dependent edema. LABORATORY DATA: Sodium 138, potassium 4.2, bicarbonate 20, BUN 51, creatinine 4, and magnesium 1.9. Pro-natriuretic peptide 1274. Albumin 3.1. CK is 329. TSH 0.9. White count 4.5 and hemoglobin 10.2. IMPRESSION: 1. Acute on chronic renal failure. 2. Acute on chronic diastolic congestive heart failure. 3. Euthyroid, on replacement therapy. 4. History of pericardial effusion. 5. Anemia of chronic kidney disease. 6. Possible urinary tract infection. PLAN: 1. Hydration. 2. Urine studies. 3. Monitor volume status. 4. Await urine culture. 5. Empiric antimicrobials. 6. Titrate antihypertensives. 7. Avoid all medications with nephrotoxic potentials. Lance Rivas M.D. DR: [place] JOB#: [id number] CC:
[2019-08-17 04:00] VITALS: BP 132/68
[2019-08-17] MEDS: HydrALAZINE 50mg tab ORAL SCH ×3 (06:46→23:08)
[2019-08-17] MEDS: Levothyroxine 125mcg tab ORAL SCH (06:46)
[2019-08-17 07:25] LABS: ANION GAP 17 mmol/L (5-15); BLOOD UREA NITROGEN 55 mg/dL (7-18); CALCIUM 8.8 MG/DL (8.5-10.1); CARBON DIOXIDE 19 MMOL/L (21-32); CHLORIDE 100 MMOL/L (98-107); CREATINE KINASE 197 U/L (26-308); CREATININE 4.1 MG/DL (0.55-1.30); POTASSIUM 3.9 MMOL/L (3.5-5.1); SODIUM 136 MMOL/L (136-145)
--- NOTE | 2019-08-17 07:30 | NUR ---
NURSE NOTES: received patient A/A/Ox4, verbally responsive with garbled speech. Patient able to ambulate with a walker and with assist. no appetite @ this point. stated " I am not hungry". keep bed in the lowest position. siderails are up x3 and padded for seizure precaution. bed alarm activated. and locked mode. will cont to monitor.
--- NOTE | 2019-08-17 07:32 | NUR ---
HAND-OFF: Report given to LEAH Bedoya.
[2019-08-17 08:00] VITALS: BP 149/74
[2019-08-17] MEDS: Docusate 100mg cap ORAL SCH ×3 (08:39→17:33)
[2019-08-17] MEDS: Calcitriol 0.25mcg Cap ORAL SCH (08:39)
[2019-08-17] MEDS: Sensipar 30mg Tab ORAL SCH (08:39)
[2019-08-17] MEDS: Vitamin D 1000 IU Tab ORAL SCH ×2 (08:40→17:33)
[2019-08-17] MEDS: Sennosides 8.6mg tab ORAL SCH (08:40)
[2019-08-17] MEDS: cloNIDine 0.2mg Tab ORAL SCH ×2 (08:42→21:42)
[2019-08-17] MEDS: Metoprolol 25mg tab ORAL SCH (08:42)
[2019-08-17] MEDS: NIFEdipine 10mg cap ORAL SCH ×2 (08:44→17:33)
--- NOTE | 2019-08-17 09:14 | General Progress Note ---
Assessment/Plan Problem List: (1) UTI (urinary tract infection) ICD Codes: N39.0 - Urinary tract infection, site not specified SNOMED: 09634902 (2) Abdominal pain in female ICD Codes: R10.9 - Unspecified abdominal pain SNOMED: 95595133 (3) Acute renal failure (ARF) ICD Codes: N17.9 - Acute renal failure (ARF) SNOMED: 05890829 (4) Dehydration ICD Codes: E86.0 - Dehydration SNOMED: 71578922 Status: stable, not improved Assessment/Plan: ivf per renal abx follow up cultures antiemetics/pain rx ct abd Subjective ROS Limited/Unobtainable: No Constitutional: Reports: malaise, weakness HEENT: Reports: no symptoms Cardiovascular: Reports: no symptoms Respiratory: Reports: no symptoms Gastrointestinal/Abdominal: Reports: abdominal pain, nausea Genitourinary: Reports: no symptoms Neurologic/Psychiatric: Reports: pre-existing deficit Endocrine: Reports: no symptoms Hematologic/Lymphatic: Reports: no symptoms Allergies: Coded Allergies: ERYTHROMYCIN BASE (Unverified Allergy, Intermediate, 07/14/19) Per patient not allergic to medications or food All Systems: reviewed and negative except above Subjective poor po. +anorexia. on abx for possible uti. no cp/sob. Objective Last 24 Hour Vital Signs Date Time Temp Pulse Resp B/P (MAP) Pulse Ox O2 Delivery O2 Flow Rate FiO2 08/17/19 08:44 84 149/74 08/17/19 08:42 84 149/74 08/17/19 08:42 149/74 08/17/19 07:56 Room Air 08/17/19 06:46 132/68 08/17/19 04:00 97.8 81 19 132/68 (89) 95 08/17/19 00:00 98.0 68 19 125/62 (83) 95 08/16/19 22:20 133/60 08/16/19 21:00 109/57 08/16/19 21:00 Room Air 08/16/19 20:00 98.5 66 19 109/57 (74) 97 08/16/19 17:27 77 160/69 08/16/19 16:00 97.9 77 19 160/69 (99) 99 08/16/19 14:23 117/67 08/16/19 12:00 98.2 75 17 117/67 (84) 97 Intake and Output 08/16/19 08/17/19 19:00 07:00 Intake Total 885 ml 1020 ml Balance 885 ml 1020 ml Intake Oral 360 ml 120 ml IV Total 525 ml 900 ml # Voids 1 2 # Bowel Movements 1 Laboratory Tests 08/16/19 16:40: Urine Color Yellow, Urine Appearance Slightly cloudy, Urine pH 5, Urine Specific [place] 1.010, Urine Protein 1+H, Urine Glucose (UA) Negative, Urine Ketones Negative, Urine Blood Negative, Urine Nitrite Negative, Urine Bilirubin 1+H, Urine Ictotest Negative, Urine Urobilinogen 1H, Urine Leukocyte Esterase 1+ H, Urine RBC 0-2, Urine WBC 10-15H, Urine Squamous Epithelial Cells ModerateH, Urine Bacteria ModerateH 08/17/19 03:00: Urine Osmolality 292L, Urine Random Sodium < 20L 08/17/19 05:35: Sodium Level 136, Potassium Level 3.9, Chloride Level 100, Carbon Dioxide Level 19L, Anion Gap 17H, Blood Urea Nitrogen 55H, Creatinine 4.1H, Estimat Glomerular Filtration Rate , Glucose Level 81, Uric Acid 11.1H, Calcium Level 8.8, Total Creatine Kinase 197 Height (Feet): 5 Height (Inches): 1.00 Weight (Pounds): 187 General Appearance: WD/WN, alert Neck: supple Cardiovascular: normal rate, regular rhythm Respiratory/Chest: chest wall non-tender, lungs clear, normal breath sounds, no respiratory distress Abdomen: normal bowel sounds, non tender, soft, no organomegaly Edema: no edema noted Arm (L), no edema noted Arm (R), no edema noted Leg (L), no edema noted Leg (R), no edema noted Pedal (L), no edema noted Pedal (R), no edema noted Generalized Neurologic: alert, responsive, aphasia Chema Hendricks MD Aug 17, 2019 09:14
[2019-08-17 11:41] VITALS: BP 125/68
--- NOTE | 2019-08-17 13:07 | Nephrology Progress Note ---
Assessment/Plan Problem List: (1) Anorexia (2) CKD (chronic kidney disease) stage 5, GFR less than 15 ml/min (3) Hypothyroidism (4) Anemia in chronic kidney disease (5) Dehydration Plan baseline creatinine 2.5-3 continue hydration, treat gastritis Subjective Constitutional: Reports: weakness HEENT: Reports: no symptoms Genitourinary: Reports: incontinence Neurologic/Psychiatric: Reports: pre-existing deficit Objective Objective Last 24 Hour Vital Signs Date Time Temp Pulse Resp B/P (MAP) Pulse Ox O2 Delivery O2 Flow Rate FiO2 08/17/19 11:41 98.7 82 18 125/68 (87) 96 08/17/19 08:44 84 149/74 08/17/19 08:42 84 149/74 08/17/19 08:42 149/74 08/17/19 08:00 98.5 84 18 149/74 (99) 96 08/17/19 07:56 Room Air 08/17/19 06:46 132/68 08/17/19 04:00 97.8 81 19 132/68 (89) 95 08/17/19 00:00 98.0 68 19 125/62 (83) 95 08/16/19 22:20 133/60 08/16/19 21:00 109/57 08/16/19 21:00 Room Air 08/16/19 20:00 98.5 66 19 109/57 (74) 97 08/16/19 17:27 77 160/69 08/16/19 16:00 97.9 77 19 160/69 (99) 99 08/16/19 14:23 117/67 Intake and Output 08/16/19 08/17/19 19:00 07:00 Intake Total 885 ml 1020 ml Balance 885 ml 1020 ml Intake Oral 360 ml 120 ml IV Total 525 ml 900 ml # Voids 1 2 # Bowel Movements 1 Laboratory Tests 08/16/19 16:40: Urine Color Yellow, Urine Appearance Slightly cloudy, Urine pH 5, Urine Specific [place] 1.010, Urine Protein 1+H, Urine Glucose (UA) Negative, Urine Ketones Negative, Urine Blood Negative, Urine Nitrite Negative, Urine Bilirubin 1+H, Urine Ictotest Negative, Urine Urobilinogen 1H, Urine Leukocyte Esterase 1+ H, Urine RBC 0-2, Urine WBC 10-15H, Urine Squamous Epithelial Cells ModerateH, Urine Bacteria ModerateH 08/17/19 03:00: Urine Osmolality 292L, Urine Random Sodium < 20L 08/17/19 05:35: Sodium Level 136, Potassium Level 3.9, Chloride Level 100, Carbon Dioxide Level 19L, Anion Gap 17H, Blood Urea Nitrogen 55H, Creatinine 4.1H, Estimat Glomerular Filtration Rate , Glucose Level 81, Uric Acid 11.1H, Calcium Level 8.8, Total Creatine Kinase 197 Height (Feet): 5 Height (Inches): 1.00 Weight (Pounds): 187 General Appearance: no apparent distress, morbidly obese EENT: normal ENT inspection Neck: normal alignment Cardiovascular: normal rate, regular rhythm Respiratory/Chest: lungs clear Abdomen: non tender, soft Extremities: other - no edema Neurologic: motor weakness, other - dysarthric Jose Lemus MD Aug 17, 2019 13:07
[2019-08-17 16:00] VITALS: BP 133/60
--- NOTE | 2019-08-17 19:09 | NUR ---
HAND-OFF: Report given to [facility].
--- NOTE | 2019-08-17 19:30 | NUR ---
NURSE NOTES: RECEIVED REPORT FROM ENRIQUE SHIPMAN. PT IS AWAKE, AAO X4, ON ROOM AIR, WHEEZING NOTED ON INSPIRATION AND EXPIRATION. O2 SAT 96%. IV ON LEFT WRIST 24G IS INTACT AND PATENT RUNNING 1/2 NS AT 75ML/HR. WALKER AT BEDSIDE. BED IS LOCKED AND LOW, BED ALARMS ACTIVE, SIDE RAILS UP X2 AND CALL LIGHT IS WITHIN REACH. WILL CONTINUE TO MONITOR.
[2019-08-17 20:00] VITALS: BP 123/65
[2019-08-18] VITALS: BP 132/70
--- NOTE | 2019-08-18 01:30 | Progress Note ---
DATE: 08/17/2019 CARDIOLOGY PROGRESS NOTE SUBJECTIVE: The patient remains on hydration. She remains withdrawn and anorectic, but slightly improved. She is incontinent of urine. OBJECTIVE: VITAL SIGNS: Blood pressure 125/68, pulse 82, and respirations 18. LUNGS: Clear with diminished breath sounds. CARDIAC: Regular rhythm and rate. Normal S1, S2 with no rub. ABDOMEN: Soft. No focal tenderness. EXTREMITIES: With no pitting edema. LABORATORY DATA: Urine culture negative to date. Sodium 136, potassium 3.9, bicarbonate 19, BUN 55, and creatinine 4.1. IMPRESSION: 1. Acute renal failure. 2. Chronic kidney disease. 3. Diabetic nephropathy. 4. Acute on chronic diastolic congestive heart failure. 5. Mild protein-calorie malnutrition. 6. Cerebrovascular disease with dementia. 7. Metabolic acidosis metabolic encephalopathy. PLAN: 1. Cautious hydration. 2. Cautious titration of antihypertensives. 3. Monitor volume status and cardiorenal parameters. 4. DVT prophylaxis. 5. Skin care. 6. Thyroid replacement therapy at current dosing. Lance Rivas M.D. DR: GRACIELA JOB#: [id number] CC:
--- NOTE | 2019-08-18 01:30 | NUR ---
NURSE NOTES: D/C IV ON LEFT WRIST 24G DUE TO LEAKING. INSERTED NEW IV ON LEFT HAND 22G.
[2019-08-18 04:00] VITALS: BP 144/74
--- NOTE | 2019-08-18 06:01 | General Progress Note ---
Assessment/Plan Problem List: (1) UTI (urinary tract infection) ICD Codes: N39.0 - Urinary tract infection, site not specified SNOMED: 76624780 (2) Abdominal pain in female ICD Codes: R10.9 - Unspecified abdominal pain SNOMED: 83365212 (3) Acute renal failure (ARF) ICD Codes: N17.9 - Acute renal failure (ARF) SNOMED: 94717980 (4) Dehydration ICD Codes: E86.0 - Dehydration SNOMED: 66612937 Status: stable, not improved Assessment/Plan: ivf per renal abx follow up cultures antiemetics/pain rx ct abd Subjective ROS Limited/Unobtainable: No Constitutional: Reports: malaise, weakness HEENT: Reports: no symptoms Cardiovascular: Reports: no symptoms Respiratory: Reports: no symptoms Gastrointestinal/Abdominal: Reports: nausea, poor appetite Genitourinary: Reports: no symptoms Neurologic/Psychiatric: Reports: pre-existing deficit Endocrine: Reports: no symptoms Hematologic/Lymphatic: Reports: anemia Allergies: Coded Allergies: ERYTHROMYCIN BASE (Unverified Allergy, Intermediate, 07/14/19) Per patient not allergic to medications or food All Systems: reviewed and negative except above Subjective no new complaints. feels "a little better." ate dinner better on abx and ivf. denies cp/sob Objective Last 24 Hour Vital Signs Date Time Temp Pulse Resp B/P (MAP) Pulse Ox O2 Delivery O2 Flow Rate FiO2 08/18/19 00:00 98.5 77 18 132/70 (90) 95 08/17/19 23:08 132/70 08/17/19 21:42 142/71 08/17/19 21:00 Room Air 08/17/19 20:00 98.9 72 20 123/65 (84) 96 08/17/19 17:33 80 133/60 08/17/19 16:00 98.6 80 16 133/60 (84) 98 08/17/19 13:56 140/79 08/17/19 11:41 98.7 82 18 125/68 (87) 96 08/17/19 08:44 84 149/74 08/17/19 08:42 84 149/74 08/17/19 08:42 149/74 08/17/19 08:00 98.5 84 18 149/74 (99) 96 08/17/19 07:56 Room Air 08/17/19 06:46 132/68 Intake and Output 08/17/19 08/18/19 19:00 07:00 Intake Total 750 ml 450 ml Balance 750 ml 450 ml IV Total 750 ml 450 ml # Voids 3 Height (Feet): 5 Height (Inches): 1.00 Weight (Pounds): 187 General Appearance: WD/WN, alert Neck: supple Cardiovascular: regular rhythm Respiratory/Chest: chest wall non-tender, lungs clear, normal breath sounds Abdomen: normal bowel sounds, non tender, soft, no organomegaly Edema: no edema noted Arm (L), no edema noted Arm (R), no edema noted Leg (L), no edema noted Leg (R), no edema noted Pedal (L), no edema noted Pedal (R), no edema noted Generalized Neurologic: historic preservationist II-XII grossly normal, alert, responsive Chema Hendricks MD Aug 18, 2019 06:00
[2019-08-18] MEDS: Levothyroxine 125mcg tab ORAL SCH (06:17)
[2019-08-18] MEDS: HydrALAZINE 50mg tab ORAL SCH ×3 (06:17→22:04)
[2019-08-18 07:05] LABS: BASOPHILS % (AUTO) 0.8 % (0.0-2.0); EOSINOPHILS % (AUTO) 2.9 % (0.0-3.0); HEMOGLOBIN 8.7 G/DL (12.0-16.0); LYMPHOCYTES % (AUTO) 19.8 % (20.0-45.0); MEAN CORPUSCULAR VOLUME 91 FL (80-99); MONOCYTES % (AUTO) 8.9 % (1.0-10.0); NEUTROPHILS % (AUTO) 67.6 % (45.0-75.0); PLATELET COUNT 217 K/UL (150-450); RED BLOOD COUNT 2.87 M/UL (4.20-5.40); RED CELL DISTRIBUTION WIDTH 11.9 % (11.6-14.8); WHITE BLOOD COUNT 3.7 K/UL (4.8-10.8)
[2019-08-18 07:12] LABS: ANION GAP 16 mmol/L (5-15); BLOOD UREA NITROGEN 55 mg/dL (7-18); CALCIUM 8.5 MG/DL (8.5-10.1); CARBON DIOXIDE 17 MMOL/L (21-32); CHLORIDE 106 MMOL/L (98-107); CREATININE 3.6 MG/DL (0.55-1.30); SODIUM 139 MMOL/L (136-145)
--- NOTE | 2019-08-18 07:55 | NUR ---
HAND-OFF: Report given to ENRIQUE Rowe.
--- NOTE | 2019-08-18 08:12 | Nephrology Progress Note ---
Assessment/Plan Status: stable, not improved Assessment/Plan: A/P 1) JJ on CKD 4- BL Cr 3 - due to volume depletion. Cr improved - Continue IVFs 2) Dehydration- continue IVFs 3) HyperCL- Met Acidosis- add po bicarb - correction of acidosis shown to retard progression of CKD 4) Anorexia- patient appetite much improved Subjective Date patient seen: Aug 18, 2019 Time patient seen: 08:09 ROS Limited/Unobtainable: No Allergies: Coded Allergies: ERYTHROMYCIN BASE (Unverified Allergy, Intermediate, 07/14/19) Per patient not allergic to medications or food All Systems: reviewed and negative except above Subjective Patient eting breakfast, in no overt distress Objective Last 24 Hour Vital Signs Date Time Temp Pulse Resp B/P (MAP) Pulse Ox O2 Delivery O2 Flow Rate FiO2 08/18/19 06:17 144/74 08/18/19 04:00 97.7 77 17 144/74 (97) 97 08/18/19 00:00 98.5 77 18 132/70 (90) 95 08/17/19 23:08 132/70 08/17/19 21:42 142/71 08/17/19 21:00 Room Air 08/17/19 20:00 98.9 72 20 123/65 (84) 96 08/17/19 17:33 80 133/60 08/17/19 16:00 98.6 80 16 133/60 (84) 98 08/17/19 13:56 140/79 08/17/19 11:41 98.7 82 18 125/68 (87) 96 08/17/19 08:44 84 149/74 08/17/19 08:42 84 149/74 08/17/19 08:42 149/74 Intake and Output 08/17/19 08/18/19 19:00 07:00 Intake Total 750 ml 675 ml Balance 750 ml 675 ml IV Total 750 ml 675 ml # Voids 3 6 Laboratory Tests 08/18/19 05:50: White Blood Count 3.7L, Red Blood Count 2.87L, Hemoglobin 8.7L, Hematocrit 26.0L , Mean Corpuscular Volume 91, Mean Corpuscular Hemoglobin 30.1, Mean Corpuscular Hemoglobin Concent 33.3, Red Cell Distribution Width 11.9, Platelet Count 217, Mean Platelet Volume 6.8, Neutrophils (%) (Auto) 67.6, Lymphocytes (% ) (Auto) 19.8L, Monocytes (%) (Auto) 8.9, Eosinophils (%) (Auto) 2.9, Basophils (%) (Auto) 0.8, Sodium Level 139, Potassium Level 4.0, Chloride Level 106, Carbon Dioxide Level 17L, Anion Gap 16H, Blood Urea Nitrogen 55H, Creatinine 3.6H, Estimat Glomerular Filtration Rate , Glucose Level 88, Calcium Level 8.5 Height (Feet): 5 Height (Inches): 1.00 Weight (Pounds): 187 General Appearance: no apparent distress, alert EENT: normal ENT inspection Neck: normal alignment, supple Cardiovascular: normal rate, regular rhythm Respiratory/Chest: lungs clear, normal breath sounds Abdomen: non tender, soft Edema: no edema noted Arm (L), no edema noted Arm (R), no edema noted Leg (L), no edema noted Leg (R), no edema noted Pedal (L), no edema noted Pedal (R), no edema noted Generalized Cody Hoyos MD Aug 18, 2019 08:12
--- NOTE | 2019-08-18 08:24 | NUR ---
NURSE NOTES: patient awake, alert x4; on room air, no sing of distress and shortness of breath; no sing of chest pain; IV Left-Hand 22G 1/2NS running at 75cc; side rails up x2, breaks engaged, bed at lowest position; patient gonna have City of Abdomen/Pelvis without contrast; call light within reach; will keep monitoring.
[2019-08-18 08:44] VITALS: BP 139/70
[2019-08-18] MEDS: Metoprolol 25mg tab ORAL SCH (08:54)
[2019-08-18] MEDS: Calcitriol 0.25mcg Cap ORAL SCH (08:54)
[2019-08-18] MEDS: NIFEdipine 10mg cap ORAL SCH ×2 (08:54→17:39)
[2019-08-18] MEDS: Docusate 100mg cap ORAL SCH ×3 (08:55→17:39)
[2019-08-18] MEDS: Sodium Bicarbonate 650mg Tab ORAL SCH ×2 (08:55→17:39)
[2019-08-18] MEDS: Sennosides 8.6mg tab ORAL SCH (08:55)
[2019-08-18] MEDS: Vitamin D 1000 IU Tab ORAL SCH ×2 (08:55→17:39)
[2019-08-18] MEDS: cloNIDine 0.2mg Tab ORAL SCH ×2 (08:55→20:52)
--- NOTE | 2019-08-18 11:40 | Cardiology Report ---
APPROVED REPORT EKG Measurement Heart [id number] [place] 140P68 [id number] Normal sinus rhythm Nonspecific T wave abnormality Abnormal ECG
[2019-08-18 12:00] VITALS: BP 133/67
--- NOTE | 2019-08-18 13:35 | NUR ---
CASE MANAGEMENT:REVIEW 73 YR OLD FEMALE DIRECTLY ADMITTED TO [facility] SI: FTT. ACUTE RENAL. DEHYDRATION 97.2 95 18 182/100 99% ON RA H/H-10.2/30.5 BUN+51 CR+4.0 IS: IVF@75/HR NAHCO3 PO BID CLONIDINE PO QD PROTONIX PO QD LOPRESSOR PO QD HYDRALAZINE PO Q8HR : MED/SURG [facility] 08/18/19 SI: ACUTE RENAL FAILURE. DEHYDRATION. FTT 98.8 77 19 133/67 97% ON RA BUN+55 CR+3.6 IS: IVF@75/HR CALCITROL PO QD CLONIDINE PO QD LOPRESSOR PO QD HYDRALAZINE PO Q8HRS : MED/SURG STATUS [facility]
--- NOTE | 2019-08-18 15:38 | Diagnostic Imaging Report ---
Indication: Abdominal pain Technique: Spiral acquisitions obtained through the abdomen and pelvis. Patient ingested oral contrast. No IV contrast, per referring physician request. No IV contrast utilized, per referring physician request.. Multiplanar reconstructions were generated. Total dose length product 1871 mGycm. CTDIvol(s) 33 mGy. Dose reduction achieved using automated exposure control Comparison: January 10, 2018 Findings: Exam is limited due to images noise, as well as streak artifact from a left hip prosthesis which could obscure pathology of the pelvis. The appendix is not definitely demonstrated. However, no findings to suggest acute appendicitis are evident. No evidence of diverticulosis or diverticulitis. No small bowel distention. Contrast is seen throughout the entirety of the small bowel and colon. No free or loculated intraperitoneal gas or fluid. The distal esophagus, stomach, duodenum are unremarkable. The lack of IV contrast limits assessment of the solid organs. Gallbladder contents are slightly heterogeneous; cholelithiasis has been reported on prior studies. The liver, gallbladder, bile ducts, pancreas, adrenals are unremarkable. The spleen demonstrates parenchymal calcifications which are more apparent on the prior study. The kidneys demonstrate subcentimeter exophytic low-attenuation lesions bilaterally which are too small to characterize. No renal or ureteral calculi, necrosis, or hydroureter. No gross pelvic mass or adenopathy. However, much of the pelvis is obscured by streak artifact. The included lung bases demonstrate some groundglass opacity. The heart is enlarged. There is a pericardial effusion which measures up to 7 mm in thickness. Impression: Somewhat limited exam, as described No definite acute abdominal or pelvic abnormality Cholelithiasis, not well-demonstrated but described on prior exams Mild basilar pulmonary parenchymal groundglass opacity. This could indicate compressive atelectasis pulmonary edema, no other possibilities Mild cardiomegaly Pericardial effusion Incidental findings as noted, including left hip arthroplasty prosthesis, splenic granulomatous calcifications,, probable bilateral renal cysts The CT scanner at [facility] is accredited by the [employer] and the scans are performed using protocols designed to limit radiation exposure to as low as reasonably achievable to attain images of sufficient resolution adequate for diagnostic evaluation.
[2019-08-18 16:00] VITALS: BP 125/73
--- NOTE | 2019-08-18 18:00 | NUR ---
NURSE NOTES: Patient's daughter requested patient been taking Temazepam 15mg capsule Bed-time; I communicated MD Hendricks regarding the matter; no new order received;
--- NOTE | 2019-08-18 19:42 | NUR ---
HAND-OFF: Report given to ENRIQUE Ventura.
--- NOTE | 2019-08-18 19:45 | NUR ---
NURSE NOTES: Patient received in bed, aaox4. IVF infusing as ordered. No acute distress, no c/o pain. Breathing is even and unlabored. Call light in reach, walker at bedside. Will continue plan of care.
[2019-08-18 20:00] VITALS: BP 143/73
[2019-08-19] VITALS: BP 135/68
--- NOTE | 2019-08-19 00:30 | Progress Note ---
DATE: 08/18/2019 CARDIOLOGY PROGRESS NOTE SUBJECTIVE: The patient is awake and more interactive. Appetite is slightly better. She remains on IV fluids. She denies shortness of breath. OBJECTIVE: VITAL SIGNS: Blood pressure 132/70, pulse 77, and respirations 18. Afebrile. LUNGS: Bilateral breath sounds. No wheezes or rales. HEART: Regular rhythm and rate. Normal S1, S2 with no rubs. There is no murmur appreciated. ABDOMEN: Soft and obese. EXTREMITIES: With trace dependent edema mostly nonpitting. LABORATORY DATA: Urine culture mixed organisms. White count 3.7 and hemoglobin 8.7. Sodium 139, potassium 4, bicarb 17, BUN 55, and creatinine 3.6. IMPRESSION: 1. Acute on chronic renal failure. 2. Metabolic acidosis. 3. Hypertensive heart disease. 4. History of pericardial effusion. 5. Euthyroid, on replacement therapy. 6. Anemia due to chronic kidney disease. PLAN: 1. Continue hydration. 2. Monitor clinical parameters, volume status, and renal function. 3. Review CAT scan. 4. Check echocardiogram to assess for recurrent pericardial effusion. Lance Rivas M.D. DR: GRACIELA JOB#: [id number] CC:
[2019-08-19 04:00] VITALS: BP 135/67
[2019-08-19] MEDS: Levothyroxine 125mcg tab ORAL SCH (05:48)
[2019-08-19] MEDS: HydrALAZINE 50mg tab ORAL SCH ×3 (05:48→22:09)
--- NOTE | 2019-08-19 05:57 | NUR ---
NURSE NOTES: Pt seen by Dr. Hendricks. Per Dr. Hendricks, he will review med list re: abx treatment.
[2019-08-19 06:49] LABS: ALANINE AMINOTRANSFERASE 38 U/L (12-78); ALBUMIN 3.3 G/DL (3.4-5.0); ALBUMIN/GLOBULIN RATIO 0.7 (1.0-2.7); ALKALINE PHOSPHATASE 52 U/L (46-116); ANION GAP 16 mmol/L (5-15); ASPARTATE AMINO TRANSFERASE 47 U/L (15-37); BILIRUBIN,TOTAL 0.4 MG/DL (0.2-1.0); BLOOD UREA NITROGEN 48 mg/dL (7-18); CALCIUM 9.3 MG/DL (8.5-10.1); CARBON DIOXIDE 18 MMOL/L (21-32); CHLORIDE 107 MMOL/L (98-107); CREATININE 3.2 MG/DL (0.55-1.30); POTASSIUM 4.1 MMOL/L (3.5-5.1); SODIUM 141 MMOL/L (136-145)
--- NOTE | 2019-08-19 07:15 | NUR ---
NURSE NOTES: HANDOFF RECEIVED FROM ENRIQUE CHILDS. PATIENT RECEIVED ALERT AND ORIENTED AND ABLE TO MAKE NEEDS KNOWN. NO OBVIOUS SIGNS OF DISTRESS. PATIENT HAS CALL LIGHT WITHIN REACH, BED IN LOW AND LOCKED POSITION. IV SITE IS CLEAN DRY AND INTACT RUNNING PRESCRIBED FLUIDS. PATIENT OBSERVED EATING BREAKFAST, ONLY ATE A SMALL AMOUNT OF BREAKFAST. WILL CONTINUE TO MONITOR.
--- NOTE | 2019-08-19 07:35 | NUR ---
HAND-OFF: Report given to Seth NUNEZ.
[2019-08-19 08:00] VITALS: BP 139/70
[2019-08-19] MEDS: Calcitriol 0.25mcg Cap ORAL SCH (09:27)
[2019-08-19] MEDS: NIFEdipine 10mg cap ORAL SCH ×2 (09:27→18:19)
[2019-08-19] MEDS: Vitamin D 1000 IU Tab ORAL SCH ×2 (09:27→18:20)
[2019-08-19] MEDS: Metoprolol 25mg tab ORAL SCH (09:28)
[2019-08-19] MEDS: Sodium Bicarbonate 650mg Tab ORAL SCH ×2 (09:28→18:20)
[2019-08-19] MEDS: Sennosides 8.6mg tab ORAL SCH (09:28)
[2019-08-19] MEDS: Docusate 100mg cap ORAL SCH ×3 (09:28→18:20)
[2019-08-19] MEDS: cloNIDine 0.2mg Tab ORAL SCH ×2 (09:28→21:14)
--- NOTE | 2019-08-19 11:07 | NUR ---
SWALLOW/SPEECH THERAPY NOTE: REFERRED BY DR. LYNN FOR A SWALLOW EVAL, SEE FULL REPORT TO FOLLOW. DYSPHAGIA RISK FACTORS FOR THIS 73 Y.O.F.: ACUTE ISSUES: MID EPIGASTRIC PAIN, FTT NO INTAKE FOR 3 DAYS, ACUTE RENAL FAILURE, DEHYDRATION, LUNGS CLEAR PER MD PER CXR MILD BASILAR PULMONARY PARENCHYMAL GROUND GLASS OPACITY ATELECTASIS PULMONARY EDEMA OR OTHER, LOW ALBUMIN 3.3 H/O OROPHARYNGEAL DYSPHAGIA, GERD, PNA, HAD GTUBE REMOVAL 01/2014, DYSARTHRIA, CVA,DEMENTIA, HEAD INJURY 04/10/14, SMOKER, HTN, RENAL FAILURE, RHABDOMYOLYSIS HAD A SWALLOW EVAL AT [facility] ON 05/19/15 HAD PERSISTENT MILD TO MOD OROPHARYNGEAL DYSPHAGIA (SEE REPORT) AND PLACED ON PUREED AND NECTAR THICK LIQUIDS UNTIL VIDEO (NOT COMPLETED DUE TO SCHEDULE CONFLICTS). HAD A POSSIBLE LEFT BASILAR LUNG INFILTRATE AT THAT TIME. ALSO HAD SPEECH AND LANGUAGE EVALUATION (SEE REPORT). HAD POOR INTAKE ON LOW NA DIET AND ON NEPRO SUPPLEMENTS. 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 CURRENTLY ON A REGULAR TEXTURE DIET AND THIN LIQUIDS WITH 25/25/75% INTAKE. NO DIETITIAN REPORT TO DATE BUT ON LAST ADMIT 07/14/19, PT ON A CARDIAC LOW POTASSIUM DIET ([facility] SOFT GROUND DIET AND THIN LIQUIDS). NO POLST NOR ADVANCE DIRECTIVE IN CHART REGARDING TUBE FEEDING PREFERENCES IF INDICATED. DYSPHONIA (VOICE HOARSE/BREATHY) BUT ABLE TO EXPRESS NEEDS, NEEDS TO REPEAT OR SPEAK LOUDER. MISSING SOME DENTITION BUT GROSSLY FUNCTIONAL REFUSED CHEWABLE OR MASTICATED SOLID TRIAL (NOT HUNGRY) INITIAL IMPRESSIONS: S/S OF AT LEAST A MILD OROPHARYNGEAL DYSPHAGIA WITH MILD INCREASE IN TRANSIT TIMES MOSTLY WITH PUREED TSP (TAKES A FEW SECONDS) FAIR HYOLARYNGAEL EXCURSION, NO ORAL RESIDUE NO OVERT ASPIRATION. GIVEN THIN LIQUIDS VIA STRAW 1 TO 2 SIPS, NO OVERT ASPIRATION BUT ONLY WANTED TO TAKE A FEW SIPS (SO SHE DOESN'T HAVE TO URINATE). HAS SILENT ASP RISK POOR LIMITED INTAKE RELATED TO POOR APPETITE PER PT (DISLIKES HIGH STACY SUP) RECOMMENDATIONS: CONSIDER DOWNGRADE TO SOFT CHEW AND CONTINUE WITH THIN LIQUIDS WITH POSTED ASP/REFLUX PREC AND ASSIST WITH MEALS (PILE DRIVER OPERATOR HELPER TO CUT SOLIDS). RD REGARDING HIGH STACY SUP AND DIET TYPE (WAS ON CARDIAC AND LOW POTASSIUM LAST MONTH ADMISSION). NO RD NOTE TO DATE. CONSIDER STACY COUNT X 72 DAYS AND APPETITE STIMULANT. COMPLETE MOD BARIUM SWALLOW STUDY IP OR OP IF DC SKILLED DYSPHAGIA MANAGEMENT AND TX, COM TIPS (COG-COM EVAL/TX AND ENT TO SEE IP OR OP REGARDING VOCAL FOLD STATUS) EDUCATED/TRAINED ENRIQUE TATE IN POSTED PRECAUTIONS.
--- NOTE | 2019-08-19 11:21 | NUR ---
RD ASSESSMENT & RECOMMENDATIONS SEE CARE ACTIVITY FOR COMPLETE ASSESSMENT DAILY ESTIMATED NEEDS: Needs based on cardiac, renal 58.75kg abw 25-30 kcals/kg [id number] total kcals 0.8-1.0 g protein/kg 47-59 g total protein 25-30 mL/kg 7247-9929 total fluid mLs NUTRITION DIAGNOSIS: 1) Altered nutrition related lab values r/t renal dysfunction as evidenced by elev creat (4.1 -> 3.2 trend down) CURRENT DIET:REGULAR PO DIET RECOMMENDATIONS: Liberalized REGULAR w/ poor PO/ texture as tolerated ADDITIONAL RECOMMENDATIONS: 1) Calibrated bedscale wt for accurate CBW 2) W/ PO intake consistently >50%, add LOW NA to diet 3) Monitor renal fxn + lytes -> renal fxn improving at this time 4) Monitor PO intake closely: consider appetite stimulant if not improved : pt reports appetite is improving at this time : pt does not want HPN 5) MVI x 1 as supplement
[2019-08-19 12:00] VITALS: BP 144/75
[2019-08-19 16:00] VITALS: BP 141/75
--- NOTE | 2019-08-19 16:18 | Cardiology Report ---
APPROVED REPORT EXAM: Two-dimensional and M-mode echocardiogram with Doppler and color Doppler. INDICATION Bradycardia M-Mode DIMENSIONS IVSd1.3 (0.7-1.1cm)Left Atrium (MM)3.2 (1.6-4.0cm) LVDd4.2 (3.5-5.6cm)Aortic Root2.7 (2.0-3.7cm) PWd1.4 (0.7-1.1cm)Aortic Cusp Exc.1.7 (1.5-2.0cm) IVSs1.8 cm LVDs2.7 (2.5-4.0cm) PWs1.5 cm Normal left ventricular chamber size, systolic function and wall motion . Left ventricular ejection fraction estimated to be 60-65%. No evidence left ventricular hypertrophy. Small circumfrential pericardial effusion,no evidence of early diastolic RV collapse. All other cardiac chamber sizes are within normal limits. Aortic valve calcification with normal cusp excursion . Mildly thickened mitral valve leaflets with normal excursion. Mild mitral annulus and aortic root calcification. Pulmonic valve not well visualized. IVC at normal size with physiologic collapse . A color flow and spectral Doppler study was performed and revealed: No aortic insufficiency . Mitral diastolic velocities suggest reduced left ventricular relaxation c/w mild LV diastolic dysfunction (Grade I ) Trace mitral regurgitation. Trace tricuspid regurgitation. Tricuspid systolic velocities suggests peak right ventricular systolic pressure of 14mmHg but likely underestimation of severity Mild pulmonic regurgitation present .
--- NOTE | 2019-08-19 19:41 | NUR ---
HAND-OFF: Report given to ENRIQUE BENNETT.
--- NOTE | 2019-08-19 19:53 | Nephrology Progress Note ---
Assessment/Plan Problem List: (1) Anorexia (2) CKD (chronic kidney disease) stage 5, GFR less than 15 ml/min (3) Hypothyroidism (4) Anemia in chronic kidney disease (5) Dehydration Plan baseline creatinine 2.5-3 discontinue hydration, treat gastritis, eating better , epogen Subjective Constitutional: Reports: weakness HEENT: Reports: no symptoms Genitourinary: Reports: incontinence Neurologic/Psychiatric: Reports: pre-existing deficit Objective Objective Last 24 Hour Vital Signs Date Time Temp Pulse Resp B/P (MAP) Pulse Ox O2 Delivery O2 Flow Rate FiO2 08/19/19 18:19 73 141/75 08/19/19 16:00 98.7 73 20 141/75 (97) 95 08/19/19 14:09 144/75 08/19/19 12:00 98.5 73 20 144/75 (98) 97 08/19/19 09:28 78 139/70 08/19/19 09:28 139/70 08/19/19 09:27 78 139/70 08/19/19 09:00 Room Air 08/19/19 08:00 97.5 78 19 139/70 (93) 99 08/19/19 05:48 148/76 08/19/19 04:00 98.5 71 18 135/67 (89) 98 08/19/19 00:00 98.4 76 18 135/68 (90) 97 08/18/19 22:04 134/69 08/18/19 21:00 Room Air 08/18/19 20:52 143/73 08/18/19 20:00 96.6 72 20 143/73 (96) 99 Intake and Output 08/18/19 08/19/19 19:00 07:00 Intake Total 1400 ml 750 ml Balance 1400 ml 750 ml Intake Oral 500 ml IV Total 900 ml 750 ml # Voids 6 3 # Bowel Movements 1 Laboratory Tests 08/19/19 05:43: Sodium Level 141, Potassium Level 4.1, Chloride Level 107, Carbon Dioxide Level 18L, Anion Gap 16H, Blood Urea Nitrogen 48H, Creatinine 3.2H, Estimat Glomerular Filtration Rate , Glucose Level 88, Calcium Level 9.3, Total Bilirubin 0.4, Aspartate Amino Transf (AST/SGOT) 47H, Alanine Aminotransferase ( ALT/SGPT) 38, Alkaline Phosphatase 52, Total Protein 8.1, Albumin 3.3L, Globulin 4.8, Albumin/Globulin Ratio 0.7L Height (Feet): 5 Height (Inches): 1.00 Weight (Pounds): 187 General Appearance: morbidly obese EENT: normal ENT inspection Neck: normal alignment, supple Cardiovascular: regular rhythm Respiratory/Chest: lungs clear, normal breath sounds Abdomen: non tender, soft Neurologic: alert Jose Lemus MD Aug 19, 2019 19:53
[2019-08-19 20:00] VITALS: BP 140/74
--- NOTE | 2019-08-19 20:24 | NUR ---
NURSE NOTES: Received report from ENRIQUE Ann. Patient awake and verbally responsive to let her needs known. Breathing unlabored without distress, discomfort, or sob on room air. IV site noted on the left hand intact and patent running 1/2 NS at 75cc/hr. Patient ambulates to bedside commode. Bedside commode at the bedside. Call light placed within reach and reeducated and emphasized to use to call light whenever she needs assistance. Bed placed at the lowest with alarm, brake, and siderails up for safety. Will continue to monitor.
--- NOTE | 2019-08-19 21:15 | Progress Note ---
DATE: 08/19/2019 CARDIOLOGY PROGRESS NOTE SUBJECTIVE: Oral intake improving. No nausea or vomiting. Echocardiogram was completed. There is a very small circumferential pericardial effusion, ejection fraction remains normal with no significant pulmonary hypertension or valvular disease. OBJECTIVE: VITAL SIGNS: Blood pressure 141/75, pulse 73, respiratory rate 20, afebrile. LUNGS: Diminished breath sounds. No wheezing. HEART: Regular rhythm rate. Normal S1, S2 with no rub or gallop. ABDOMEN: Soft, moderately obese. EXTREMITIES: Without pitting edema. LABORATORY AND DIAGNOSTIC DATA: BUN and creatinine have improved to 48/3.2, bicarb 16. Sodium 141, potassium 4.1. Albumin 3.3. IMPRESSION: 1. Acute on chronic renal failure improving. 2. Hypovolemia and dehydration recovering. 3. Metabolic acidosis. 4. Mild protein-calorie malnutrition. 5. Hemodynamically insignificant pericardial effusion and likely due to renal disease. 6. Hypertensive heart and renal disease with adequate blood pressure control. 7. Compensated diastolic congestive heart failure. PLAN: 1. Continue cautious hydration until renal function plateaus. 2. Monitor volume status and cardiorenal parameters. 3. DVT prophylaxis. Lance Rivas M.D. DR: Laila JOB#: [id number] CC:
[2019-08-19] MEDS: Iron Sucrose 100 MG in NS 55 ML IV SCH (21:21)
[2019-08-20] VITALS (7 sets, daily range): BP systolic 127–150; BP diastolic 57–78
--- NOTE | 2019-08-20 03:06 | NUR ---
NURSE NOTES: New 22g IV inserted on patient's left forearm. Intact, dry, clean, and patent. Previous IV site leaking when flushing. Patient explained procedure and confirmed okay to place new IV. Patient tolerated the procedure well. Will continue to monitor.
[2019-08-20] MEDS: HydrALAZINE 50mg tab ORAL SCH ×3 (05:36→22:57)
[2019-08-20] MEDS: Levothyroxine 125mcg tab ORAL SCH (05:37)
[2019-08-20 05:57] LABS: HEMATOCRIT 26.2 % (37.0-47.0); HEMOGLOBIN 8.8 G/DL (12.0-16.0); MEAN CORPUSCULAR VOLUME 91 FL (80-99); PLATELET COUNT 235 K/UL (150-450); RED BLOOD COUNT 2.87 M/UL (4.20-5.40); WHITE BLOOD COUNT 3.1 K/UL (4.8-10.8)
[2019-08-20 06:03] LABS: ANION GAP 13 mmol/L (5-15); BLOOD UREA NITROGEN 43 mg/dL (7-18); CALCIUM 9.1 MG/DL (8.5-10.1); CARBON DIOXIDE 19 MMOL/L (21-32); CHLORIDE 110 MMOL/L (98-107); POTASSIUM 4.2 MMOL/L (3.5-5.1); SODIUM 142 MMOL/L (136-145)
--- NOTE | 2019-08-20 07:16 | NUR ---
HAND-OFF: Report given to ENRIQUE Ann.
--- NOTE | 2019-08-20 07:40 | NUR ---
NURSE NOTES: PATIENT RECEIVED FROM MINSU,RN. PATIENT OBSERVED SLEEPING IN BED. IV SITE IS CLEAN DRY AND INTACT, SALINE LOCKED. NO APPARENT SIGNS OF DISTRESS. BED IS IN THE LOW AND LOCKED POSITION, CALL LIGHT ON THE SIDE OF THE BED. WILL CONTINUE TO MONITOR.
--- NOTE | 2019-08-20 08:03 | General Progress Note ---
Assessment/Plan Problem List: (1) UTI (urinary tract infection) ICD Codes: N39.0 - Urinary tract infection, site not specified SNOMED: 10522700 (2) Abdominal pain in female ICD Codes: R10.9 - Unspecified abdominal pain SNOMED: 85453061 (3) Acute renal failure (ARF) ICD Codes: N17.9 - Acute renal failure (ARF) SNOMED: 14026053 (4) Dehydration ICD Codes: E86.0 - Dehydration SNOMED: 15559589 Status: stable, not improved Assessment/Plan: ivf per renal abx follow up cultures antiemetics/pain rx ct abd reviewed GI eval pending' add remeron for appetite Subjective ROS Limited/Unobtainable: No Constitutional: Reports: malaise, weakness HEENT: Reports: no symptoms Cardiovascular: Reports: no symptoms Respiratory: Reports: no symptoms Gastrointestinal/Abdominal: Reports: poor appetite Genitourinary: Reports: no symptoms Neurologic/Psychiatric: Reports: pre-existing deficit Endocrine: Reports: no symptoms Hematologic/Lymphatic: Reports: anemia Allergies: Coded Allergies: ERYTHROMYCIN BASE (Unverified Allergy, Intermediate, 07/14/19) Per patient not allergic to medications or food All Systems: reviewed and negative except above Subjective no new complaints. feels the same. still not eating well. "no appetite." CT abd negative. +pericardial effusion renal fxn improving with ivf Objective Last 24 Hour Vital Signs Date Time Temp Pulse Resp B/P (MAP) Pulse Ox O2 Delivery O2 Flow Rate FiO2 08/20/19 05:36 147/79 08/20/19 04:00 97.9 59 18 148/75 (99) 97 08/20/19 00:00 98.0 65 20 138/71 (93) 95 08/19/19 22:09 134/67 08/19/19 21:14 156/76 08/19/19 21:00 Room Air 08/19/19 20:00 98.0 69 20 140/74 (96) 96 08/19/19 18:19 73 141/75 08/19/19 16:00 98.7 73 20 141/75 (97) 95 08/19/19 14:09 144/75 08/19/19 12:00 98.5 73 20 144/75 (98) 97 08/19/19 09:28 78 139/70 08/19/19 09:28 139/70 08/19/19 09:27 78 139/70 08/19/19 09:00 Room Air Intake and Output 08/19/19 08/20/19 18:59 06:59 Intake Total 240 ml 180 ml Balance 240 ml 180 ml Intake Oral 240 ml 120 ml IV Total 60 ml # Voids 4 4 # Bowel Movements 1 1 Laboratory Tests 08/20/19 05:05: White Blood Count 3.1L, Red Blood Count 2.87L, Hemoglobin 8.8L, Hematocrit 26.2L , Mean Corpuscular Volume 91, Mean Corpuscular Hemoglobin 30.7, Mean Corpuscular Hemoglobin Concent 33.6, Red Cell Distribution Width 12.0, Platelet Count 235, Mean Platelet Volume 6.5, Neutrophils (%) (Auto) , Lymphocytes (%) ( Auto) , Monocytes (%) (Auto) , Eosinophils (%) (Auto) , Basophils (%) (Auto) , Sodium Level 142, Potassium Level 4.2, Chloride Level 110H, Carbon Dioxide Level 19L, Anion Gap 13, Blood Urea Nitrogen 43H, Creatinine 3.0H, Estimat Glomerular Filtration Rate , Glucose Level 89, Calcium Level 9.1 Height (Feet): 5 Height (Inches): 1.00 Weight (Pounds): 188 General Appearance: WD/WN, alert Neck: supple Cardiovascular: regular rhythm Respiratory/Chest: lungs clear Abdomen: normal bowel sounds, non tender, soft, no organomegaly Edema: no edema noted Arm (L), no edema noted Arm (R), no edema noted Leg (L), no edema noted Leg (R), no edema noted Pedal (L), no edema noted Pedal (R), no edema noted Generalized Chema Hendricks MD Aug 20, 2019 08:03
[2019-08-20] MEDS: Vitamin D 1000 IU Tab ORAL SCH ×2 (09:13→18:13)
[2019-08-20] MEDS: Metoprolol 25mg tab ORAL SCH (09:13)
[2019-08-20] MEDS: Docusate 100mg cap ORAL SCH ×3 (09:13→18:14)
[2019-08-20] MEDS: Sennosides 8.6mg tab ORAL SCH (09:13)
[2019-08-20] MEDS: NIFEdipine 10mg cap ORAL SCH ×2 (09:13→18:13)
[2019-08-20] MEDS: Calcitriol 0.25mcg Cap ORAL SCH (09:13)
[2019-08-20] MEDS: Sodium Bicarbonate 650mg Tab ORAL SCH ×2 (09:13→18:13)
[2019-08-20] MEDS: cloNIDine 0.2mg Tab ORAL SCH ×2 (09:14→22:19)
--- NOTE | 2019-08-20 13:20 | NUR ---
CASE MANAGEMENT:REVIEW 08/18/19 SI: ACUTE RENAL FAILURE. DEHYDRATION. FTT 97.7 70 18 143/57 98% ON RA H/H-8.8/26.2 BUN+43 CR+3.0 IS: IRON PO QD REMERON PO QHS IV VENOFER QHS NAHCO3 PO BID CALCITROL PO QD CLONIDINE PO QD LOPRESSOR PO QD HYDRALAZINE PO Q8HRS NIFEDIPINE PO BID : MED/SURG STATUS 4 [facility]
--- NOTE | 2019-08-20 19:41 | Nephrology Progress Note ---
Assessment/Plan Problem List: (1) Anorexia (2) CKD (chronic kidney disease) stage 5, GFR less than 15 ml/min (3) Hypothyroidism (4) Anemia in chronic kidney disease (5) Dehydration Plan baseline creatinine 2.5-3 discontinue hydration, treat gastritis, eating better , epogen Subjective Constitutional: Reports: no symptoms HEENT: Reports: no symptoms Genitourinary: Reports: incontinence Neurologic/Psychiatric: Reports: pre-existing deficit Objective Objective Last 24 Hour Vital Signs Date Time Temp Pulse Resp B/P (MAP) Pulse Ox O2 Delivery O2 Flow Rate FiO2 08/20/19 18:13 82 150/78 08/20/19 18:07 97.6 82 12 150/78 (102) 98 08/20/19 16:00 97.6 82 12 150/78 (102) 98 08/20/19 14:16 143/57 08/20/19 12:00 97.7 70 18 143/57 (85) 98 08/20/19 09:14 150/78 08/20/19 09:13 82 150/78 08/20/19 09:13 82 150/78 08/20/19 09:00 Room Air 08/20/19 08:00 97.6 82 12 150/78 (102) 98 08/20/19 05:36 147/79 08/20/19 04:00 97.9 59 18 148/75 (99) 97 08/20/19 00:00 98.0 65 20 138/71 (93) 95 08/19/19 22:09 134/67 08/19/19 21:14 156/76 08/19/19 21:00 Room Air 08/19/19 20:00 98.0 69 20 140/74 (96) 96 Intake and Output 08/19/19 08/20/19 19:00 07:00 Intake Total 240 ml 180 ml Balance 240 ml 180 ml Intake Oral 240 ml 120 ml IV Total 60 ml # Voids 4 4 # Bowel Movements 1 1 Laboratory Tests 08/20/19 05:05: White Blood Count 3.1L, Red Blood Count 2.87L, Hemoglobin 8.8L, Hematocrit 26.2L , Mean Corpuscular Volume 91, Mean Corpuscular Hemoglobin 30.7, Mean Corpuscular Hemoglobin Concent 33.6, Red Cell Distribution Width 12.0, Platelet Count 235, Mean Platelet Volume 6.5, Neutrophils (%) (Auto) , Lymphocytes (%) ( Auto) , Monocytes (%) (Auto) , Eosinophils (%) (Auto) , Basophils (%) (Auto) , Sodium Level 142, Potassium Level 4.2, Chloride Level 110H, Carbon Dioxide Level 19L, Anion Gap 13, Blood Urea Nitrogen 43H, Creatinine 3.0H, Estimat Glomerular Filtration Rate , Glucose Level 89, Calcium Level 9.1 Height (Feet): 5 Height (Inches): 1.00 Weight (Pounds): 188 General Appearance: morbidly obese EENT: normal ENT inspection Neck: normal alignment Cardiovascular: normal rate, regular rhythm Respiratory/Chest: normal breath sounds Abdomen: non tender Extremities: other - no edema Neurologic: motor weakness Jose Lemus MD Aug 20, 2019 19:41
--- NOTE | 2019-08-20 19:46 | NUR ---
HAND-OFF: Report given to ENRIQUE BENNETT.
--- NOTE | 2019-08-20 19:50 | NUR ---
NURSE NOTES: Received report from ENRIQUE Ann. Patient awake and verbally responsive to let her needs known. Patient breathing unlabored without distress, discomfort, or sob on a room air. Denies discomfort or pain at this time. IV site noted on the left forearm intact, dry, clean, and patent. Patient able to get up with minimal assist to use the bedside commode. Bedside commode and walker noted at the bedside. Bed placed at the lowest with alarm, brake, and siderails up for safety. Call light placed within reach. Will continue to monitor and provide care as ordered.
[2019-08-20] MEDS ORDERED: Epoetin Alfa-EPBX (NON ESRD)10,000 unit/ml vial SUBQ SCH (21:00)
[2019-08-20] MEDS ORDERED: Epoetin Alfa-EPBX(ESRD on dialysis)10,000 unit/ml vial SUBQ SCH (21:00)
[2019-08-20] MEDS: Iron Sucrose 100 MG in NS 55 ML IV SCH (22:22)
--- NOTE | 2019-08-20 23:19 | General Progress Note ---
Assessment/Plan Status: stable, not improved Assessment/Plan: Assessment - h/o anemia, s/p EGD/Colon/Capsule endo - functional decline - Advanced renal failure - Anorexia, secondary to above - recent abd pain, negative CT Recommendations - Push po - agree with Remeron trial - calorie count - d/c po FeSo4 - Can discuss PEG if fails to improve Thank you Mina Rao MD Subjective Allergies: Coded Allergies: ERYTHROMYCIN BASE (Unverified Allergy, Intermediate, 07/14/19) Per patient not allergic to medications or food Objective Last 24 Hour Vital Signs Date Time Temp Pulse Resp B/P (MAP) Pulse Ox O2 Delivery O2 Flow Rate FiO2 08/20/19 22:57 144/70 08/20/19 22:19 143/70 08/20/19 18:13 82 150/78 08/20/19 18:07 97.6 82 12 150/78 (102) 98 08/20/19 16:00 97.6 82 12 150/78 (102) 98 08/20/19 14:16 143/57 08/20/19 12:00 97.7 70 18 143/57 (85) 98 08/20/19 09:14 150/78 08/20/19 09:13 82 150/78 08/20/19 09:13 82 150/78 08/20/19 09:00 Room Air 08/20/19 08:00 97.6 82 12 150/78 (102) 98 08/20/19 05:36 147/79 08/20/19 04:00 97.9 59 18 148/75 (99) 97 08/20/19 00:00 98.0 65 20 138/71 (93) 95 Intake and Output 08/19/19 08/20/19 19:00 07:00 Intake Total 240 ml 180 ml Balance 240 ml 180 ml Intake Oral 240 ml 120 ml IV Total 60 ml # Voids 4 4 # Bowel Movements 1 1 Laboratory Tests 08/20/19 05:05: White Blood Count 3.1L, Red Blood Count 2.87L, Hemoglobin 8.8L, Hematocrit 26.2L , Mean Corpuscular Volume 91, Mean Corpuscular Hemoglobin 30.7, Mean Corpuscular Hemoglobin Concent 33.6, Red Cell Distribution Width 12.0, Platelet Count 235, Mean Platelet Volume 6.5, Neutrophils (%) (Auto) , Lymphocytes (%) ( Auto) , Monocytes (%) (Auto) , Eosinophils (%) (Auto) , Basophils (%) (Auto) , Sodium Level 142, Potassium Level 4.2, Chloride Level 110H, Carbon Dioxide Level 19L, Anion Gap 13, Blood Urea Nitrogen 43H, Creatinine 3.0H, Estimat Glomerular Filtration Rate , Glucose Level 89, Calcium Level 9.1 Height (Feet): 5 Height (Inches): 1.00 Weight (Pounds): 188 Mina Rao MD Aug 20, 2019 23:19
[2019-08-21] VITALS: BP 155/70
[2019-08-21 04:00] VITALS: BP 132/73
--- NOTE | 2019-08-21 05:30 | Consultation ---
DATE OF CONSULTATION: 08/20/2019 GASTROENTEROLOGY CONSULTATION CONSULTING PHYSICIAN: Mina Rao M.D. CHIEF COMPLAINT: I was asked to see this patient by Dr. Lance Rivas and Chema Hendricks for evaluation of anorexia. HISTORY OF PRESENT ILLNESS: The patient is a debilitated 73-year-old woman, who was admitted to the hospital. She has been found to have dehydration and renal failure and she is being treated accordingly. The patient has had a poor oral intake, which was very concerning. The patient herself had some abdominal pain earlier. A CT scan was done, which was unrevealing. At this point, however, she does not complain of any abdominal pain. She does have anemia, which is significant. She has anemia with heme-positive stools. At that time, she underwent endoscopy and colonoscopy and a capsule endoscopy, which showed only incidental finding such as some gastritis and had some colon polyps. This anemia is partially due to renal failure, and is somewhat stable. The patient's host of other medical problems are outlined below. PAST MEDICAL HISTORY: History of hypertension, stroke, deep vein thrombosis, pericardial effusion, dementia, anemia, failure to thrive, weakness. FAMILY HISTORY: Noncontributory. SOCIAL HISTORY: The patient does not smoke or drink alcohol. REVIEW OF SYSTEMS: Otherwise negative. MEDICATIONS: See the chart list for details. PHYSICAL EXAMINATION: GENERAL: Debilitated elderly woman, seen in the room. HEENT: Normocephalic and atraumatic. Sclerae are anicteric. Oropharynx is clear. Dentition is poor. NECK: Supple. CHEST: Clear to auscultation. CARDIOVASCULAR: Revealed a regular rate. ABDOMEN: Soft, obese with good bowel sounds. There is no obvious tenderness or organomegaly or masses. EXTREMITIES: Revealed no edema. LABORATORY DATA: Laboratory data were noted. ASSESSMENT: This patient presents with a brief period of abdominal pain, which may have resolved and the CT scan has been negative. She does have anorexia, it seems to be improving. She has had anemia for some time and has already undergone a comprehensive evaluation including endoscopy, colonoscopy, and capsule endoscopy. At this time, I do not believe a repeat evaluation will be worthwhile. The patient's oral intake should be encouraged and she should be placed on a calorie count. I agree with the Remeron as written since this hopefully will help stimulate appetite. If all failed and she does poorly, then a discussion regarding gastrostomy tube can be held with patient and her family. RECOMMENDATIONS: Per above discussion and per orders written in the chart. Thank you for asking me to participate in the care of this patient. Mina Rao M.D. DR: CORINA JOB#: [id number] CC: YUE
[2019-08-21] MEDS: HydrALAZINE 50mg tab ORAL SCH ×3 (05:33→22:53)
[2019-08-21] MEDS: Levothyroxine 125mcg tab ORAL SCH (05:33)
--- NOTE | 2019-08-21 06:30 | Progress Note ---
DATE: 08/20/2019 CARDIOLOGY PROGRESS NOTE SUBJECTIVE: The patient's appetite remains poor. GI evaluation was noted. The patient is started on Remeron. OBJECTIVE: VITAL SIGNS: Blood pressure 148/75, heart rate 59, respiratory rate 18, and afebrile. LUNGS: Clear. CARDIAC: Regular. Normal S1, S2. No rub. ABDOMEN: Soft. There is moderate obesity. EXTREMITIES: There is no pitting edema. LABORATORY DATA: White count is 3.1, hemoglobin 8.8. Potassium 4.2, BUN 43, creatinine 3. IMPRESSION: Renal function continues to improve with hydration. Blood pressure parameters remain high-normal range. No clinical signs of acute congestive heart failure. Pericardial effusion of no clinical significance. Euthyroid, on replacement therapy. PLAN: Recommend continue cautious hydration. Avoid tight blood pressure control at present. Avoid all cardiac medications with possible nephrotoxicity such as TESS inhibitors and ARB drugs. We will continue to follow. Lance Rivas M.D. DR: Ольга JOB#: [id number] CC:
--- NOTE | 2019-08-21 07:54 | NUR ---
HAND-OFF: Report given to ENRIQUE Rowe.
[2019-08-21 08:00] VITALS: BP 153/78
--- NOTE | 2019-08-21 08:16 | NUR ---
NURSE NOTES: Patient alert x3; on room air, no sing of distress and shortness of breath; no sing chest pain; Iv LFA 22G flushes well; side rails up x2, break engaged; walker within reach; will keep [id number].
--- NOTE | 2019-08-21 08:56 | General Progress Note ---
Assessment/Plan Problem List: (1) UTI (urinary tract infection) ICD Codes: N39.0 - Urinary tract infection, site not specified SNOMED: 75276742 (2) Abdominal pain in female ICD Codes: R10.9 - Unspecified abdominal pain SNOMED: 71803526 (3) Acute renal failure (ARF) ICD Codes: N17.9 - Acute renal failure (ARF) SNOMED: 22855247 (4) Dehydration ICD Codes: E86.0 - Dehydration SNOMED: 95282377 Status: stable, not improved Assessment/Plan: ivf per renal abx follow up cultures antiemetics/pain rx ct abd reviewed GI eval appreciated remeron Subjective Allergies: Coded Allergies: ERYTHROMYCIN BASE (Unverified Allergy, Intermediate, 07/14/19) Per patient not allergic to medications or food Subjective no new complaints. feels the same. still not eating well. "no appetite."25% of meals CT abd negative. +pericardial effusion renal fxn improving with ivf GI, renal and cards appreciated. Objective Last 24 Hour Vital Signs Date Time Temp Pulse Resp B/P (MAP) Pulse Ox O2 Delivery O2 Flow Rate FiO2 08/21/19 08:00 97.5 74 18 153/78 (103) 97 08/21/19 05:33 146/70 08/21/19 04:00 97.5 63 20 132/73 (92) 97 08/21/19 00:00 97.9 64 18 155/70 (98) 97 08/20/19 22:57 144/70 08/20/19 22:19 143/70 08/20/19 21:00 Room Air 08/20/19 20:00 98.1 77 20 134/73 (93) 96 08/20/19 18:13 82 150/78 08/20/19 18:07 97.6 82 12 150/78 (102) 98 08/20/19 16:00 97.6 82 12 150/78 (102) 98 08/20/19 14:16 143/57 08/20/19 12:00 97.7 70 18 143/57 (85) 98 08/20/19 09:14 150/78 08/20/19 09:13 82 150/78 08/20/19 09:13 82 150/78 08/20/19 09:00 Room Air Intake and Output 08/20/19 08/21/19 19:00 07:00 Intake Total 100 ml 60 ml Balance 100 ml 60 ml Intake Oral 100 ml 60 ml # Voids 2 2 # Bowel Movements 1 Height (Feet): 5 Height (Inches): 1.00 Weight (Pounds): 188 Objective General Appearance: WD/WN, alert Neck: supple Cardiovascular: regular rhythm Respiratory/Chest: lungs clear Abdomen: normal bowel sounds, non tender, soft, no organomegaly Edema: no edema noted Arm (L), no edema noted Arm (R), no edema noted Leg (L), no edema noted Leg (R), no edema noted Pedal (L), no edema noted Pedal (R), no edema noted Generalized Chema Hendricks MD Aug 21, 2019 08:56
[2019-08-21] MEDS: Calcitriol 0.25mcg Cap ORAL SCH (09:13)
[2019-08-21] MEDS: NIFEdipine 10mg cap ORAL SCH ×2 (09:14→17:27)
[2019-08-21] MEDS: Sodium Bicarbonate 650mg Tab ORAL SCH ×2 (09:14→17:27)
[2019-08-21] MEDS: Sennosides 8.6mg tab ORAL SCH (09:14)
[2019-08-21] MEDS: cloNIDine 0.2mg Tab ORAL SCH ×2 (09:14→21:27)
[2019-08-21] MEDS: Docusate 100mg cap ORAL SCH ×3 (09:14→17:27)
[2019-08-21] MEDS: Vitamin D 1000 IU Tab ORAL SCH ×2 (09:14→17:27)
[2019-08-21] MEDS: Metoprolol 25mg tab ORAL SCH (09:15)
[2019-08-21 12:00] VITALS: BP 143/71
--- NOTE | 2019-08-21 12:19 | General Progress Note ---
Assessment/Plan Status: stable, not improved Assessment/Plan: Assessment - h/o anemia, s/p EGD/Colon/Capsule endo - functional decline - Advanced renal failure - Anorexia, secondary to above - recent abd pain, negative CT Recommendations - Push po - agree with Remeron trial - calorie count - off of po FeSo4 - Will d/w daughter Subjective Allergies: Coded Allergies: ERYTHROMYCIN BASE (Unverified Allergy, Intermediate, 07/14/19) Per patient not allergic to medications or food Subjective refused breakfast today denies abd pain unable to discuss issue with daughter at this time Objective Last 24 Hour Vital Signs Date Time Temp Pulse Resp B/P (MAP) Pulse Ox O2 Delivery O2 Flow Rate FiO2 08/21/19 09:15 74 153/78 08/21/19 09:14 74 153/78 08/21/19 09:14 153/78 08/21/19 09:00 Room Air 08/21/19 08:00 97.5 74 18 153/78 (103) 97 08/21/19 05:33 146/70 08/21/19 04:00 97.5 63 20 132/73 (92) 97 08/21/19 00:00 97.9 64 18 155/70 (98) 97 08/20/19 22:57 144/70 08/20/19 22:19 143/70 08/20/19 21:00 Room Air 08/20/19 20:00 98.1 77 20 134/73 (93) 96 08/20/19 18:13 82 150/78 08/20/19 18:07 97.6 82 12 150/78 (102) 98 08/20/19 16:00 97.6 82 12 150/78 (102) 98 08/20/19 14:16 143/57 Intake and Output 08/20/19 08/21/19 18:59 06:59 Intake Total 100 ml 60 ml Balance 100 ml 60 ml Intake Oral 100 ml 60 ml # Voids 2 2 # Bowel Movements 1 Height (Feet): 5 Height (Inches): 1.00 Weight (Pounds): 188 Objective WDWN AA woman NCAT supple CTA RRR abd soft, obese no edema Mina Rao MD Aug 21, 2019 12:19
[2019-08-21 16:00] VITALS: BP 135/76
--- NOTE | 2019-08-21 17:19 | Nephrology Progress Note ---
Assessment/Plan Problem List: (1) Anorexia (2) CKD (chronic kidney disease) stage 5, GFR less than 15 ml/min (3) Hypothyroidism (4) Anemia in chronic kidney disease (5) Dehydration Plan baseline creatinine 2.5-3 discontinue hydration, treat gastritis, eating better , epogen, consider psych eval , mobilize Subjective Constitutional: Reports: no symptoms HEENT: Reports: no symptoms Genitourinary: Reports: incontinence Neurologic/Psychiatric: Reports: pre-existing deficit Objective Objective Last 24 Hour Vital Signs Date Time Temp Pulse Resp B/P (MAP) Pulse Ox O2 Delivery O2 Flow Rate FiO2 08/21/19 13:43 143/71 08/21/19 12:00 96.6 63 20 143/71 (95) 96 08/21/19 09:15 74 153/78 08/21/19 09:14 74 153/78 08/21/19 09:14 153/78 08/21/19 09:00 Room Air 08/21/19 08:00 97.5 74 18 153/78 (103) 97 08/21/19 05:33 146/70 08/21/19 04:00 97.5 63 20 132/73 (92) 97 08/21/19 00:00 97.9 64 18 155/70 (98) 97 08/20/19 22:57 144/70 08/20/19 22:19 143/70 08/20/19 21:00 Room Air 08/20/19 20:00 98.1 77 20 134/73 (93) 96 08/20/19 18:13 82 150/78 08/20/19 18:07 97.6 82 12 150/78 (102) 98 Intake and Output 08/20/19 08/21/19 19:00 07:00 Intake Total 100 ml 60 ml Balance 100 ml 60 ml Intake Oral 100 ml 60 ml # Voids 2 2 # Bowel Movements 1 Height (Feet): 5 Height (Inches): 1.00 Weight (Pounds): 188 General Appearance: morbidly obese EENT: normal ENT inspection Neck: normal alignment Cardiovascular: normal rate, regular rhythm Respiratory/Chest: lungs clear Abdomen: non tender, soft 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
--- NOTE | 2019-08-21 19:34 | NUR ---
HAND-OFF: Report given to ENRIQUE Santana.
[2019-08-21 20:00] VITALS: BP 141/69
[2019-08-21] MEDS: Iron Sucrose 100 MG in NS 55 ML IV SCH (21:27)
--- NOTE | 2019-08-21 21:30 | Progress Note ---
DATE: 08/21/2019 CARDIOLOGY PROGRESS NOTE SUBJECTIVE: The patient is still eating poorly. No appetite. Intake about 25 to 30 percent. OBJECTIVE: VITAL SIGNS: Blood pressure 132/73 to 153/78, heart rate 62 to 75, respiratory rate 18 to 20, and afebrile. LUNGS: Clear with slightly diminished breath sounds. CARDIAC: Regular rhythm and rate. Normal S1, S2 with no rub. ABDOMEN: Soft and obese. EXTREMITIES: There is trace dependent edema, mostly nonpitting. LABORATORY DATA: Laboratories are pending. IMPRESSION: 1. Steady improvement in renal function with hydration. 2. Pericardial effusion of no clinical or hemodynamic significance. 3. Moderate to severe protein-calorie malnutrition, on supplements and appetite stimulants. 4. Hypertensive heart disease with adequate blood pressure control. 5. Iron deficiency on IV therapy. PLAN: 1. Discontinue clonidine as it may be sedating. 2. Titrate other drugs accordingly. 3. Nutritional support. 4. Continue IV fluids until renal function plateau. Lance Rivas M.D. DR: GRACIELA JOB#: [id number] CC:
[2019-08-22] VITALS: BP 135/72
--- NOTE | 2019-08-22 00:36 | NUR ---
NURSE NOTES: RECEIVED PT FROM ENRIQUE MCCOY. PT IS AWAKE, AAO X4, ON ROOM AIR, NO ACUTE DISTRESS NOTED. IV ON LEFT FA 22G IS INTACT AND PATENT. BED IS LOCKED AND LOW, BED ALARMS ACTIVE, SIDE RAILS UP X2, AND CALL LIGHT IS WITHIN REACH. WILL CONTINUE TO MONITOR.
[2019-08-22 04:00] VITALS: BP 162/80
[2019-08-22] MEDS: HydrALAZINE 50mg tab ORAL SCH ×3 (05:52→22:44)
[2019-08-22] MEDS: Levothyroxine 125mcg tab ORAL SCH (05:53)
[2019-08-22 06:51] LABS: ALANINE AMINOTRANSFERASE 28 U/L (12-78); ALBUMIN/GLOBULIN RATIO 0.7 (1.0-2.7); ALKALINE PHOSPHATASE 47 U/L (46-116); ANION GAP 11 mmol/L (5-15); ASPARTATE AMINO TRANSFERASE 34 U/L (15-37); BILIRUBIN,TOTAL 0.3 MG/DL (0.2-1.0); BLOOD UREA NITROGEN 39 mg/dL (7-18); CALCIUM 9.3 MG/DL (8.5-10.1); CARBON DIOXIDE 21 MMOL/L (21-32); CHLORIDE 114 MMOL/L (98-107); CREATININE 2.9 MG/DL (0.55-1.30); POTASSIUM 4.4 MMOL/L (3.5-5.1); SODIUM 146 MMOL/L (136-145)
[2019-08-22 06:56] LABS: HEMATOCRIT 29.3 % (37.0-47.0); HEMOGLOBIN 9.7 G/DL (12.0-16.0); MEAN CORPUSCULAR VOLUME 92 FL (80-99); PLATELET COUNT 253 K/UL (150-450); RED BLOOD COUNT 3.18 M/UL (4.20-5.40); RED CELL DISTRIBUTION WIDTH 12.3 % (11.6-14.8); WHITE BLOOD COUNT 3.1 K/UL (4.8-10.8)
--- NOTE | 2019-08-22 07:51 | NUR ---
HAND-OFF: Report given to ENRIQUE Ferreira.
[2019-08-22 08:00] VITALS: BP 159/76
--- NOTE | 2019-08-22 08:14 | Nephrology Progress Note ---
Assessment/Plan Problem List: (1) Anorexia (2) CKD (chronic kidney disease) stage 5, GFR less than 15 ml/min (3) Hypothyroidism (4) Anemia in chronic kidney disease (5) Dehydration Plan baseline creatinine 2.5-3 discontinue hydration, treat gastritis, eating better , epogen, consider psych eval as withdrawn and cognitive deficits, mobilize out of bed as little mental stimulation in bed, she should have elective av fistula in next several months Subjective Constitutional: Reports: weakness HEENT: Reports: no symptoms Genitourinary: Reports: incontinence Neurologic/Psychiatric: Reports: pre-existing deficit Objective Objective Last 24 Hour Vital Signs Date Time Temp Pulse Resp B/P (MAP) Pulse Ox O2 Delivery O2 Flow Rate FiO2 08/22/19 05:52 162/80 08/22/19 04:00 98.2 87 18 162/80 (107) 96 08/22/19 00:00 97.9 72 20 135/72 (93) 96 08/21/19 22:53 136/79 08/21/19 21:27 144/69 08/21/19 21:00 Room Air 08/21/19 20:00 98.4 70 18 141/69 (93) 97 08/21/19 17:27 63 143/71 08/21/19 16:00 97.5 73 18 135/76 (95) 96 08/21/19 13:43 143/71 08/21/19 12:00 96.6 63 20 143/71 (95) 96 08/21/19 09:15 74 153/78 08/21/19 09:14 74 153/78 08/21/19 09:14 153/78 08/21/19 09:00 Room Air Intake and Output 08/21/19 08/22/19 19:00 07:00 Intake Total 860 ml 340 ml Balance 860 ml 340 ml Intake Oral 860 ml IV Total 240 ml Other 100 ml # Voids 6 1 # Bowel Movements 2 Laboratory Tests 08/22/19 05:15: White Blood Count 3.1L, Red Blood Count 3.18L, Hemoglobin 9.7L, Hematocrit 29.3L , Mean Corpuscular Volume 92, Mean Corpuscular Hemoglobin 30.5, Mean Corpuscular Hemoglobin Concent 33.0, Red Cell Distribution Width 12.3, Platelet Count 253, Mean Platelet Volume 6.7, Neutrophils (%) (Auto) , Lymphocytes (%) ( Auto) , Monocytes (%) (Auto) , Eosinophils (%) (Auto) , Basophils (%) (Auto) , Neutrophils % (Manual) [Pending], Lymphocytes % (Manual) [Pending], Platelet Estimate [Pending], Platelet Morphology [Pending], Sodium Level 146H, Potassium Level 4.4, Chloride Level 114H, Carbon Dioxide Level 21, Anion Gap 11, Blood Urea Nitrogen 39H, Creatinine 2.9H, Estimat Glomerular Filtration Rate , Glucose Level 85, Calcium Level 9.3, Magnesium Level 1.8, Total Bilirubin 0.3, Aspartate Amino Transf (AST/SGOT) 34, Alanine Aminotransferase (ALT/SGPT) 28, Alkaline Phosphatase 47, Pro-B-Type Natriuretic Peptide 1126H, Total Protein 7.5 , Albumin 3.0L, Globulin 4.5, Albumin/Globulin Ratio 0.7L Height (Feet): 5 Height (Inches): 1.00 Weight (Pounds): 188 General Appearance: no apparent distress, morbidly obese EENT: normal ENT inspection Neck: normal alignment Cardiovascular: normal rate, regular rhythm Respiratory/Chest: lungs clear Abdomen: non tender, soft Extremities: other - noedema Neurologic: motor weakness, other - dysarthric Jose Lemus MD Aug 22, 2019 08:14
[2019-08-22] MEDS: Calcitriol 0.25mcg Cap ORAL SCH (08:48)
[2019-08-22] MEDS: Vitamin D 1000 IU Tab ORAL SCH ×2 (08:48→16:48)
[2019-08-22] MEDS: Docusate 100mg cap ORAL SCH ×3 (08:48→16:48)
[2019-08-22] MEDS: Metoprolol 25mg tab ORAL SCH ×2 (08:48→16:48)
[2019-08-22] MEDS: Sodium Bicarbonate 650mg Tab ORAL SCH ×2 (08:48→16:48)
[2019-08-22] MEDS: Sennosides 8.6mg tab ORAL SCH (08:48)
[2019-08-22] MEDS: NIFEdipine 10mg cap ORAL SCH ×2 (08:49→16:49)
--- NOTE | 2019-08-22 09:00 | General Progress Note ---
Assessment/Plan Problem List: (1) UTI (urinary tract infection) ICD Codes: N39.0 - Urinary tract infection, site not specified SNOMED: 25587638 (2) Abdominal pain in female ICD Codes: R10.9 - Unspecified abdominal pain SNOMED: 01925561 (3) Acute renal failure (ARF) ICD Codes: N17.9 - Acute renal failure (ARF) SNOMED: 90681547 (4) Dehydration ICD Codes: E86.0 - Dehydration SNOMED: 40010487 Status: stable, not improved Assessment/Plan: ivf per renal encourage pos antiemetics/pain rx ct abd reviewed GI eval appreciated remeron for appetite dc planning later today if continued improvement in po intake Subjective ROS Limited/Unobtainable: No Constitutional: Reports: malaise, weakness HEENT: Reports: no symptoms Cardiovascular: Reports: no symptoms Respiratory: Reports: no symptoms Gastrointestinal/Abdominal: Reports: abdominal pain, poor appetite Genitourinary: Reports: no symptoms Neurologic/Psychiatric: Reports: pre-existing deficit Endocrine: Reports: no symptoms Hematologic/Lymphatic: Reports: no symptoms Allergies: Coded Allergies: ERYTHROMYCIN BASE (Unverified Allergy, Intermediate, 07/14/19) Per patient not allergic to medications or food All Systems: reviewed and negative except above Subjective no events. renal fxn improving. eating better. no vomiting. Objective Last 24 Hour Vital Signs Date Time Temp Pulse Resp B/P (MAP) Pulse Ox O2 Delivery O2 Flow Rate FiO2 08/22/19 08:49 82 159/76 08/22/19 08:48 82 159/76 08/22/19 08:47 159/76 08/22/19 08:00 98.1 82 16 159/76 (103) 98 08/22/19 05:52 162/80 08/22/19 04:00 98.2 87 18 162/80 (107) 96 08/22/19 00:00 97.9 72 20 135/72 (93) 96 08/21/19 22:53 136/79 08/21/19 21:27 144/69 08/21/19 21:00 Room Air 08/21/19 20:00 98.4 70 18 141/69 (93) 97 08/21/19 17:27 63 143/71 08/21/19 16:00 97.5 73 18 135/76 (95) 96 08/21/19 13:43 143/71 08/21/19 12:00 96.6 63 20 143/71 (95) 96 08/21/19 09:15 74 153/78 08/21/19 09:14 74 153/78 08/21/19 09:14 153/78 08/21/19 09:00 Room Air Intake and Output 08/21/19 08/22/19 19:00 07:00 Intake Total 860 ml 340 ml Balance 860 ml 340 ml Intake Oral 860 ml IV Total 240 ml Other 100 ml # Voids 6 1 # Bowel Movements 2 Laboratory Tests 08/22/19 05:15: White Blood Count 3.1L, Red Blood Count 3.18L, Hemoglobin 9.7L, Hematocrit 29.3L , Mean Corpuscular Volume 92, Mean Corpuscular Hemoglobin 30.5, Mean Corpuscular Hemoglobin Concent 33.0, Red Cell Distribution Width 12.3, Platelet Count 253, Mean Platelet Volume 6.7, Neutrophils (%) (Auto) , Lymphocytes (%) ( Auto) , Monocytes (%) (Auto) , Eosinophils (%) (Auto) , Basophils (%) (Auto) , Neutrophils % (Manual) [Pending], Lymphocytes % (Manual) [Pending], Platelet Estimate [Pending], Platelet Morphology [Pending], Sodium Level 146H, Potassium Level 4.4, Chloride Level 114H, Carbon Dioxide Level 21, Anion Gap 11, Blood Urea Nitrogen 39H, Creatinine 2.9H, Estimat Glomerular Filtration Rate , Glucose Level 85, Calcium Level 9.3, Magnesium Level 1.8, Total Bilirubin 0.3, Aspartate Amino Transf (AST/SGOT) 34, Alanine Aminotransferase (ALT/SGPT) 28, Alkaline Phosphatase 47, Pro-B-Type Natriuretic Peptide 1126H, Total Protein 7.5 , Albumin 3.0L, Globulin 4.5, Albumin/Globulin Ratio 0.7L Height (Feet): 5 Height (Inches): 1.00 Weight (Pounds): 188 Objective General Appearance: WD/WN, alert Neck: supple Cardiovascular: regular rhythm Respiratory/Chest: lungs clear Abdomen: normal bowel sounds, non tender, soft, no organomegaly Edema: no edema noted Arm (L), no edema noted Arm (R), no edema noted Leg (L), no edema noted Leg (R), no edema noted Pedal (L), no edema noted Pedal (R), no edema noted Generalized Chema Hendricks MD Aug 22, 2019 09:00
[2019-08-22 12:00] VITALS: BP 130/78
--- NOTE | 2019-08-22 12:28 | NUR ---
CASE MANAGEMENT:REVIEW 08/22/19 SI: ACUTE RENAL FAILURE. DEHYDRATION. FTT 98.3 89 17 130/78 98% ON RA H/H-9.7/29.3 BUN+39 CR+2.9 IS: IRON PO QD REMERON PO QHS IV VENOFER QHS NAHCO3 PO BID CALCITROL PO QD CLONIDINE PO QD LOPRESSOR PO QD HYDRALAZINE PO Q8HRS NIFEDIPINE PO BID : MED/SURG STATUS 4 [facility]
--- NOTE | 2019-08-22 14:49 | NUR ---
SPEECH PATHOLOGY: PATIENT CLEARED FOR ST INTERVENTION BY RN TRAN PATIENTS P.O. INTAKE INSUFFICIENT TO SUPPORT NUTRITION/HYDRATION NEEDS. HX OF FAILURE TO THRIVE, REFUSAL TO EAT, POOR APPETITE D/W RN: CONTACT MD RE: APPETITE ENH[employer]ER ALONG WITH H[employer] SUPPLEMENTS ST TO CONT PER PLAN
[2019-08-22 16:00] VITALS: BP 155/82
[2019-08-22] MEDS ORDERED: 1/2 NS 1000ml IV ONE (16:15)
--- NOTE | 2019-08-22 17:00 | Progress Note ---
DATE: 08/22/2019 CARDIOLOGY PROGRESS NOTE SUBJECTIVE: Oral intake better. Renal function improving. She is still on IV fluids. OBJECTIVE: VITAL SIGNS: Blood pressure still elevated at times 159/76, pulse 82, respiratory rate 16, and afebrile. LUNGS: Clear. CARDIAC: Regular. Normal S1, S2 with a fourth heart sound. ABDOMEN: Soft. EXTREMITIES: There is trace dependent edema. LABORATORY DATA: White count 3.1, hemoglobin 9.7, platelets 353. BUN 39, creatinine 2.9. Pro-natriuretic peptide 1100. Sodium 146 and potassium 4.4. IMPRESSION: 1. Acute on chronic renal failure, improved with hydration. 2. Acute on chronic diastolic congestive heart failure, clinically compensated. 3. Pericardial effusion, of no hemodynamic significance. 4. Mild protein-calorie malnutrition, on supplemental therapy. 5. Mild dehydration and hyponatremia. 6. Hypertensive heart disease. PLAN: 1. Increase free water. 2. Continue hydration. 3. Anticipate discontinuing IVs over the next 24 hours. 4. Advance antihypertensives. Lance Rivas M.D. DR: MELVA JOB#: [id number] CC:
--- NOTE | 2019-08-22 19:39 | NUR ---
HAND-OFF: Report given to Taryn RN.
[2019-08-22 20:00] VITALS: BP 152/75
--- NOTE | 2019-08-22 20:00 | NUR ---
NURSE NOTES: RECEIVED PT FROM ENRIQUE MOTTA. PT IS ASLEEP, ON ROOM AIR, NO ACUTE DISTRESS NOTED. IV ON LEFT FA22G IS INTACT AND PATENT. WALKER NOTED AT BEDSIDE. SEIZURE PRECAUTION IMPLEMENTED WITH SIDE RAILS PADDING. BED IS LOCKED AND LOW, BED ALARMS ACTIVE, SIDE RAILS UP X2, AND CALL LIGHT IS WITHIN REACH. WILL CONTINUE TO MONITOR.
[2019-08-22] MEDS: cloNIDine 0.2mg Tab ORAL SCH (20:39)
[2019-08-22] MEDS: Epoetin Alfa-EPBX (NON ESRD) 3000 units/ml vial SUBQ SCH (20:39)
[2019-08-22] MEDS: Epoetin Alfa-EPBX (NON ESRD)4000 units/ml vial SUBQ SCH (20:39)
[2019-08-22] MEDS: Iron Sucrose 100 MG in NS 55 ML IV SCH (20:40)
--- NOTE | 2019-08-22 22:07 | General Progress Note ---
Assessment/Plan Status: stable, not improved Assessment/Plan: Assessment - h/o anemia, s/p EGD/Colon/Capsule endo - functional decline - Advanced renal failure - Anorexia, secondary to above - recent abd pain, negative CT Recommendations - Push po - Remeron trial - calorie count - off of po FeSo4 - Daughter wants to hold off on PEG for now Subjective Allergies: Coded Allergies: ERYTHROMYCIN BASE (Unverified Allergy, Intermediate, 07/14/19) Per patient not allergic to medications or food Subjective eating better today denies abd pain d/w DTR last night DTR states she wants to push po route first Objective Last 24 Hour Vital Signs Date Time Temp Pulse Resp B/P (MAP) Pulse Ox O2 Delivery O2 Flow Rate FiO2 08/22/19 20:39 152/75 08/22/19 16:49 78 155/82 08/22/19 16:48 78 155/82 08/22/19 16:00 98.1 78 16 155/82 (106) 98 08/22/19 13:35 130/78 08/22/19 12:00 98.3 89 17 130/78 (95) 98 08/22/19 09:00 Room Air 08/22/19 08:49 82 159/76 08/22/19 08:48 82 159/76 08/22/19 08:47 159/76 08/22/19 08:00 98.1 82 16 159/76 (103) 98 08/22/19 05:52 162/80 08/22/19 04:00 98.2 87 18 162/80 (107) 96 08/22/19 00:00 97.9 72 20 135/72 (93) 96 08/21/19 22:53 136/79 Intake and Output 08/21/19 08/22/19 19:00 07:00 Intake Total 860 ml 340 ml Balance 860 ml 340 ml Intake Oral 860 ml IV Total 240 ml Other 100 ml # Voids 6 1 # Bowel Movements 2 Laboratory Tests 08/22/19 05:15: White Blood Count 3.1L, Red Blood Count 3.18L, Hemoglobin 9.7L, Hematocrit 29.3L , Mean Corpuscular Volume 92, Mean Corpuscular Hemoglobin 30.5, Mean Corpuscular Hemoglobin Concent 33.0, Red Cell Distribution Width 12.3, Platelet Count 253, Mean Platelet Volume 6.7, Neutrophils (%) (Auto) , Lymphocytes (%) ( Auto) , Monocytes (%) (Auto) , Eosinophils (%) (Auto) , Basophils (%) (Auto) , Differential Total Cells Counted 100, Neutrophils % (Manual) 52, Lymphocytes % ( Manual) 24, Monocytes % (Manual) 13H, Eosinophils % (Manual) 6H, Basophils % ( Manual) 5H, Band Neutrophils 0, Platelet Estimate Adequate, Platelet Morphology Normal, Sodium Level 146H, Potassium Level 4.4, Chloride Level 114H, Carbon Dioxide Level 21, Anion Gap 11, Blood Urea Nitrogen 39H, Creatinine 2.9H, Estimat Glomerular Filtration Rate , Glucose Level 85, Calcium Level 9.3, Magnesium Level 1.8, Total Bilirubin 0.3, Aspartate Amino Transf (AST/SGOT) 34, Alanine Aminotransferase (ALT/SGPT) 28, Alkaline Phosphatase 47, Pro-B-Type Natriuretic Peptide 1126H, Total Protein 7.5, Albumin 3.0L, Globulin 4.5, Albumin/Globulin Ratio 0.7L Height (Feet): 5 Height (Inches): 1.00 Weight (Pounds): 188 Objective WDWN AA woman NCAT supple CTA RRR abd soft, obese no edema Mina Rao MD Aug 22, 2019 22:06
[2019-08-23] VITALS: BP 160/87
[2019-08-23] MEDS: HydrALAZINE 25mg tab ORAL PRN (00:49)
[2019-08-23 04:00] VITALS: BP 145/90
[2019-08-23] MEDS: Levothyroxine 125mcg tab ORAL SCH (06:18)
[2019-08-23] MEDS: HydrALAZINE 50mg tab ORAL SCH ×3 (06:19→22:22)
[2019-08-23 06:54] LABS: ANION GAP 13 mmol/L (5-15); CARBON DIOXIDE 21 MMOL/L (21-32); CHLORIDE 113 MMOL/L (98-107); CREATININE 3.1 MG/DL (0.55-1.30); POTASSIUM 4.1 MMOL/L (3.5-5.1); SODIUM 147 MMOL/L (136-145)
[2019-08-23 07:05] LABS: BASOPHILS % (AUTO) 0.6 % (0.0-2.0); BLOOD UREA NITROGEN 42 mg/dL (7-18); EOSINOPHILS % (AUTO) 2.2 % (0.0-3.0); HEMATOCRIT 29.7 % (37.0-47.0); HEMOGLOBIN 9.9 G/DL (12.0-16.0); LYMPHOCYTES % (AUTO) 14.2 % (20.0-45.0); MEAN CORPUSCULAR VOLUME 92 FL (80-99); NEUTROPHILS % (AUTO) 76.1 % (45.0-75.0); PLATELET COUNT 250 K/UL (150-450); RED BLOOD COUNT 3.21 M/UL (4.20-5.40); RED CELL DISTRIBUTION WIDTH 12.4 % (11.6-14.8); WHITE BLOOD COUNT 4.2 K/UL (4.8-10.8)
--- NOTE | 2019-08-23 07:13 | NUR ---
NURSE NOTES: Patient received in stable condition, sleeping in bed. No apparent signs of distress. Bed locked in lowest position, walker by the bedside. Call light placed within reach, will continue to monitor.
--- NOTE | 2019-08-23 07:40 | NUR ---
HAND-OFF: Report given to ENRIQUE Ferreira.
[2019-08-23 08:00] VITALS: BP 145/75
[2019-08-23] MEDS: Sodium Bicarbonate 650mg Tab ORAL SCH ×2 (08:08→17:06)
[2019-08-23] MEDS: Docusate 100mg cap ORAL SCH ×3 (08:08→17:06)
[2019-08-23] MEDS: Metoprolol 25mg tab ORAL SCH ×2 (08:08→17:07)
[2019-08-23] MEDS: Calcitriol 0.25mcg Cap ORAL SCH (08:08)
[2019-08-23] MEDS: Vitamin D 1000 IU Tab ORAL SCH ×2 (08:08→17:06)
[2019-08-23] MEDS: NIFEdipine 10mg cap ORAL SCH ×2 (08:09→17:06)
[2019-08-23] MEDS: Sennosides 8.6mg tab ORAL SCH (08:09)
--- NOTE | 2019-08-23 08:34 | General Progress Note ---
Assessment/Plan Problem List: (1) UTI (urinary tract infection) ICD Codes: N39.0 - Urinary tract infection, site not specified SNOMED: 10589673 (2) Abdominal pain in female ICD Codes: R10.9 - Unspecified abdominal pain SNOMED: 68804727 (3) Acute renal failure (ARF) ICD Codes: N17.9 - Acute renal failure (ARF) SNOMED: 95106487 (4) Dehydration ICD Codes: E86.0 - Dehydration SNOMED: 91830350 Status: stable, not improved Assessment/Plan: ivf per renal encourage pos antiemetics/pain rx ct abd reviewed GI eval appreciated remeron for appetite dc planning later today if continued improvement in po intake Subjective Constitutional: Reports: malaise, weakness HEENT: Reports: no symptoms Cardiovascular: Reports: no symptoms Respiratory: Reports: no symptoms Gastrointestinal/Abdominal: Reports: abdominal pain, poor appetite Genitourinary: Reports: no symptoms Neurologic/Psychiatric: Reports: pre-existing deficit Endocrine: Reports: no symptoms Hematologic/Lymphatic: Reports: no symptoms Allergies: Coded Allergies: ERYTHROMYCIN BASE (Unverified Allergy, Intermediate, 07/14/19) Per patient not allergic to medications or food All Systems: reviewed and negative except above Subjective no events. not eating 25% of meals consumed. currently trying to eat breakfast, Na trending up Objective Last 24 Hour Vital Signs Date Time Temp Pulse Resp B/P (MAP) Pulse Ox O2 Delivery O2 Flow Rate FiO2 08/23/19 08:09 82 154/76 08/23/19 08:08 82 154/76 08/23/19 08:08 154/76 08/23/19 08:00 97.6 74 19 145/75 (98) 97 08/23/19 06:19 154/76 08/23/19 04:00 98.4 82 18 145/90 (108) 98 08/23/19 00:49 173/82 08/23/19 00:00 97.3 75 18 160/87 (111) 98 08/22/19 22:44 158/79 08/22/19 21:00 Room Air 08/22/19 20:39 152/75 08/22/19 20:00 97.9 73 20 152/75 (100) 100 08/22/19 16:49 78 155/82 08/22/19 16:48 78 155/82 08/22/19 16:00 98.1 78 16 155/82 (106) 98 08/22/19 13:35 130/78 08/22/19 12:00 98.3 89 17 130/78 (95) 98 08/22/19 09:00 Room Air 08/22/19 08:49 82 159/76 08/22/19 08:48 82 159/76 08/22/19 08:47 159/76 Intake and Output 08/22/19 08/23/19 19:00 07:00 Intake Total 500 ml 240 ml Balance 500 ml 240 ml Intake Oral 500 ml IV Total 240 ml # Voids 3 2 Laboratory Tests 08/23/19 05:35: White Blood Count 4.2L, Red Blood Count 3.21L, Hemoglobin 9.9L, Hematocrit 29.7L , Mean Corpuscular Volume 92, Mean Corpuscular Hemoglobin 30.7, Mean Corpuscular Hemoglobin Concent 33.2, Red Cell Distribution Width 12.4, Platelet Count 250, Mean Platelet Volume 6.4L, Neutrophils (%) (Auto) 76.1H, Lymphocytes (%) (Auto) 14.2L, Monocytes (%) (Auto) 7.0, Eosinophils (%) (Auto) 2.2, Basophils (%) (Auto) 0.6, Sodium Level 147H, Potassium Level 4.1, Chloride Level 113H, Carbon Dioxide Level 21, Anion Gap 13, Blood Urea Nitrogen 42H, Creatinine 3.1H, Estimat Glomerular Filtration Rate , Glucose Level 102, Calcium Level 10.0, Ionized Calcium (Measured) [Pending] Height (Feet): 5 Height (Inches): 1.00 Weight (Pounds): 188 Objective General Appearance: WD/WN, alert Neck: supple Cardiovascular: regular rhythm Respiratory/Chest: lungs clear Abdomen: normal bowel sounds, non tender, soft, no organomegaly Edema: no edema noted Arm (L), no edema noted Arm (R), no edema noted Leg (L), no edema noted Leg (R), no edema noted Pedal (L), no edema noted Pedal (R), no edema noted Generalized Chema Hendricks MD Aug 23, 2019 08:34
[2019-08-23] MEDS ORDERED: Nephrovite tab (Rena-Vite) ORAL SCH (09:00)
--- NOTE | 2019-08-23 11:40 | Nephrology Progress Note ---
Assessment/Plan Problem List: (1) Anorexia (2) CKD (chronic kidney disease) stage 5, GFR less than 15 ml/min (3) Hypothyroidism (4) Anemia in chronic kidney disease (5) Dehydration Plan baseline creatinine 2.5-3 discontinue hydration, treat gastritis, eating better , epogen, consider psych eval as withdrawn and cognitive deficits, mobilize out of bed as little mental stimulation in bed, she should have elective av fistula in next several months, c/o heartburn, continue gi regimen Subjective Constitutional: Reports: weakness HEENT: Reports: no symptoms Neurologic/Psychiatric: Reports: pre-existing deficit Objective Objective Last 24 Hour Vital Signs Date Time Temp Pulse Resp B/P (MAP) Pulse Ox O2 Delivery O2 Flow Rate FiO2 08/23/19 09:00 Room Air 08/23/19 08:09 82 154/76 08/23/19 08:08 82 154/76 08/23/19 08:08 154/76 08/23/19 08:00 97.6 74 19 145/75 (98) 97 08/23/19 06:19 154/76 08/23/19 04:00 98.4 82 18 145/90 (108) 98 08/23/19 00:49 173/82 08/23/19 00:00 97.3 75 18 160/87 (111) 98 08/22/19 22:44 158/79 08/22/19 21:00 Room Air 08/22/19 20:39 152/75 08/22/19 20:00 97.9 73 20 152/75 (100) 100 08/22/19 16:49 78 155/82 08/22/19 16:48 78 155/82 08/22/19 16:00 98.1 78 16 155/82 (106) 98 08/22/19 13:35 130/78 08/22/19 12:00 98.3 89 17 130/78 (95) 98 Intake and Output 08/22/19 08/23/19 19:00 07:00 Intake Total 500 ml 240 ml Balance 500 ml 240 ml Intake Oral 500 ml IV Total 240 ml # Voids 3 2 Laboratory Tests 08/23/19 05:35: White Blood Count 4.2L, Red Blood Count 3.21L, Hemoglobin 9.9L, Hematocrit 29.7L , Mean Corpuscular Volume 92, Mean Corpuscular Hemoglobin 30.7, Mean Corpuscular Hemoglobin Concent 33.2, Red Cell Distribution Width 12.4, Platelet Count 250, Mean Platelet Volume 6.4L, Neutrophils (%) (Auto) 76.1H, Lymphocytes (%) (Auto) 14.2L, Monocytes (%) (Auto) 7.0, Eosinophils (%) (Auto) 2.2, Basophils (%) (Auto) 0.6, Sodium Level 147H, Potassium Level 4.1, Chloride Level 113H, Carbon Dioxide Level 21, Anion Gap 13, Blood Urea Nitrogen 42H, Creatinine 3.1H, Estimat Glomerular Filtration Rate , Glucose Level 102, Calcium Level 10.0, Ionized Calcium (Measured) 1.20 Height (Feet): 5 Height (Inches): 1.00 Weight (Pounds): 188 General Appearance: no apparent distress, alert EENT: normal ENT inspection Neck: normal alignment Cardiovascular: normal rate, regular rhythm Respiratory/Chest: lungs clear Abdomen: non tender, soft Extremities: other - no edema Neurologic: motor weakness Jose Lemus MD Aug 23, 2019 11:40
[2019-08-23 11:41] VITALS: BP 138/86
[2019-08-23] MEDS ORDERED: Mylanta II UD 30ml ORAL SCH (12:00)
[2019-08-23 16:00] VITALS: BP 132/86
--- NOTE | 2019-08-23 16:25 | General Progress Note ---
Assessment/Plan Status: stable, not improved Assessment/Plan: Assessment - h/o anemia, s/p EGD/Colon/Capsule endo - functional decline - Advanced renal failure - Anorexia, secondary to above - recent abd pain, negative CT Recommendations - Push po - TUMS PRN - Remeron trial - calorie count - off of po FeSo4 - Daughter wants to hold off on PEG for now Subjective Allergies: Coded Allergies: ERYTHROMYCIN BASE (Unverified Allergy, Intermediate, 07/14/19) Per patient not allergic to medications or food Subjective eating OK c/o some pyrosis Objective Last 24 Hour Vital Signs Date Time Temp Pulse Resp B/P (MAP) Pulse Ox O2 Delivery O2 Flow Rate FiO2 08/23/19 16:00 98.1 73 17 132/86 (101) 96 08/23/19 13:28 138/86 08/23/19 11:41 97.9 84 18 138/86 (103) 97 08/23/19 09:00 Room Air 08/23/19 08:09 82 154/76 08/23/19 08:08 82 154/76 08/23/19 08:08 154/76 08/23/19 08:00 97.6 74 19 145/75 (98) 97 08/23/19 06:19 154/76 08/23/19 04:00 98.4 82 18 145/90 (108) 98 08/23/19 00:49 173/82 08/23/19 00:00 97.3 75 18 160/87 (111) 98 08/22/19 22:44 158/79 08/22/19 21:00 Room Air 08/22/19 20:39 152/75 08/22/19 20:00 97.9 73 20 152/75 (100) 100 08/22/19 16:49 78 155/82 08/22/19 16:48 78 155/82 Intake and Output 08/22/19 08/23/19 18:59 06:59 Intake Total 500 ml 240 ml Balance 500 ml 240 ml Intake Oral 500 ml IV Total 240 ml # Voids 3 2 Laboratory Tests 08/23/19 05:35: White Blood Count 4.2L, Red Blood Count 3.21L, Hemoglobin 9.9L, Hematocrit 29.7L , Mean Corpuscular Volume 92, Mean Corpuscular Hemoglobin 30.7, Mean Corpuscular Hemoglobin Concent 33.2, Red Cell Distribution Width 12.4, Platelet Count 250, Mean Platelet Volume 6.4L, Neutrophils (%) (Auto) 76.1H, Lymphocytes (%) (Auto) 14.2L, Monocytes (%) (Auto) 7.0, Eosinophils (%) (Auto) 2.2, Basophils (%) (Auto) 0.6, Sodium Level 147H, Potassium Level 4.1, Chloride Level 113H, Carbon Dioxide Level 21, Anion Gap 13, Blood Urea Nitrogen 42H, Creatinine 3.1H, Estimat Glomerular Filtration Rate , Glucose Level 102, Calcium Level 10.0, Ionized Calcium (Measured) 1.20 Height (Feet): 5 Height (Inches): 1.00 Weight (Pounds): 188 Objective WDWN AA woman NCAT supple CTA RRR abd soft, obese no edema Mina Rao MD Aug 23, 2019 16:25
[2019-08-23] MEDS ORDERED: Tums 500mg ORAL PRN (16:30)
--- NOTE | 2019-08-23 19:21 | NUR ---
HAND-OFF: Report given to Estelle NUNEZ.
[2019-08-23 20:00] VITALS: BP 149/73
--- NOTE | 2019-08-23 20:00 | NUR ---
NURSE NOTES: pt received in bed, awake alert. No complaints of pain. Requested for sleeping medication. Will medicate as prescribed. Call light in reach. Instructed to call for assistance. Will monitor.
[2019-08-23] MEDS: cloNIDine 0.2mg Tab ORAL SCH (20:04)
[2019-08-23] MEDS: Iron Sucrose 100 MG in NS 55 ML IV SCH (20:04)
[2019-08-24 00:04] VITALS: BP 138/78
[2019-08-24 04:00] VITALS: BP 139/81
[2019-08-24] MEDS: HydrALAZINE 50mg tab ORAL SCH ×3 (05:27→21:06)
[2019-08-24] MEDS: Levothyroxine 125mcg tab ORAL SCH (05:27)
[2019-08-24 07:00] LABS: ALANINE AMINOTRANSFERASE 27 U/L (12-78); ALBUMIN 3.1 G/DL (3.4-5.0); ALBUMIN/GLOBULIN RATIO 0.7 (1.0-2.7); ALKALINE PHOSPHATASE 50 U/L (46-116); ANION GAP 13 mmol/L (5-15); ASPARTATE AMINO TRANSFERASE 28 U/L (15-37); BILIRUBIN,TOTAL 0.3 MG/DL (0.2-1.0); BLOOD UREA NITROGEN 39 mg/dL (7-18); CARBON DIOXIDE 21 MMOL/L (21-32); CHLORIDE 115 MMOL/L (98-107); CREATININE 3.2 MG/DL (0.55-1.30); POTASSIUM 4.3 MMOL/L (3.5-5.1); SODIUM 148 MMOL/L (136-145)
--- NOTE | 2019-08-24 07:24 | NUR ---
HAND-OFF: Report given to Trini NUNEZ.
[2019-08-24 08:00] VITALS: BP 140/68
[2019-08-24] MEDS: NIFEdipine 10mg cap ORAL SCH ×2 (08:45→18:24)
[2019-08-24] MEDS: Docusate 100mg cap ORAL SCH ×3 (08:46→18:23)
[2019-08-24] MEDS: Sennosides 8.6mg tab ORAL SCH (08:46)
[2019-08-24] MEDS: Vitamin D 1000 IU Tab ORAL SCH ×2 (08:46→18:24)
[2019-08-24] MEDS: Calcitriol 0.25mcg Cap ORAL SCH (08:47)
[2019-08-24] MEDS: Sodium Bicarbonate 650mg Tab ORAL SCH ×2 (08:47→18:24)
[2019-08-24] MEDS: Metoprolol 25mg tab ORAL SCH ×2 (08:48→18:24)
--- NOTE | 2019-08-24 10:20 | NUR ---
CASE MANAGEMENT:REVIEW 08/24/19 SI: ACUTE RENAL FAILURE. DEHYDRATION. FTT 98.4 HR 88 RR 19 B/P 140/68 SATS 96% ON RA LABS: NA 148 CL 115 BUN 39 CR 3.2 IS: IRON PO QD REMERON PO QHS IV VENOFER QHS NAHCO3 PO BID CALCITROL PO QD CLONIDINE PO QD LOPRESSOR PO QD HYDRALAZINE PO Q8HRS NIFEDIPINE PO BID : MED/SURG STATUS 4 [facility]
--- NOTE | 2019-08-24 11:31 | General Progress Note ---
Assessment/Plan Problem List: (1) UTI (urinary tract infection) ICD Codes: N39.0 - Urinary tract infection, site not specified SNOMED: 46361361 (2) Abdominal pain in female ICD Codes: R10.9 - Unspecified abdominal pain SNOMED: 31948986 (3) Acute renal failure (ARF) ICD Codes: N17.9 - Acute renal failure (ARF) SNOMED: 50902742 (4) Dehydration ICD Codes: E86.0 - Dehydration SNOMED: 29764186 Status: stable, not improved Assessment/Plan: ivf per renal encourage pos antiemetics/pain rx ct abd reviewed GI eval appreciated remeron for appetite psych eval consider megace trial Subjective ROS Limited/Unobtainable: No Constitutional: Reports: malaise, weakness HEENT: Reports: no symptoms Cardiovascular: Reports: no symptoms Respiratory: Reports: no symptoms Gastrointestinal/Abdominal: Reports: poor appetite, poor fluid intake Genitourinary: Reports: no symptoms Neurologic/Psychiatric: Reports: pre-existing deficit Endocrine: Reports: no symptoms Hematologic/Lymphatic: Reports: no symptoms Allergies: Coded Allergies: ERYTHROMYCIN BASE (Unverified Allergy, Intermediate, 07/14/19) Per patient not allergic to medications or food All Systems: reviewed and negative except above Subjective no events. not eating. ate 10 of breakfast. refused lunch. 25% of dinner. "i am not hungry" Objective Last 24 Hour Vital Signs Date Time Temp Pulse Resp B/P (MAP) Pulse Ox O2 Delivery O2 Flow Rate FiO2 08/24/19 09:00 Room Air 08/24/19 08:48 88 140/68 08/24/19 08:48 140/68 08/24/19 08:45 88 140/68 08/24/19 08:00 98.4 88 19 140/68 (92) 96 08/24/19 05:27 139/81 08/24/19 04:00 98.4 83 19 139/81 (100) 93 08/24/19 00:04 98.9 86 19 138/78 (98) 97 08/23/19 22:22 130/73 08/23/19 21:00 Room Air 08/23/19 20:04 149/77 08/23/19 20:00 99.5 80 20 149/73 (98) 95 08/23/19 17:07 73 132/86 08/23/19 17:06 73 132/86 08/23/19 16:00 98.1 73 17 132/86 (101) 96 08/23/19 13:28 138/86 08/23/19 11:41 97.9 84 18 138/86 (103) 97 Intake and Output 08/23/19 08/24/19 19:00 07:00 Intake Total 160 ml Balance 160 ml Intake Oral 100 ml IV Total 60 ml # Voids 5 2 # Bowel Movements 1 Laboratory Tests 08/24/19 05:35: Sodium Level 148H, Potassium Level 4.3, Chloride Level 115H, Carbon Dioxide Level 21, Anion Gap 13, Blood Urea Nitrogen 39H, Creatinine 3.2H, Estimat Glomerular Filtration Rate , Glucose Level 96, Calcium Level 10.0, Total Bilirubin 0.3, Aspartate Amino Transf (AST/SGOT) 28, Alanine Aminotransferase ( ALT/SGPT) 27, Alkaline Phosphatase 50, Total Protein 7.5, Albumin 3.1L, Globulin 4.4, Albumin/Globulin Ratio 0.7L Height (Feet): 5 Height (Inches): 1.00 Weight (Pounds): 188 Objective General Appearance: WD/WN, alert Neck: supple Cardiovascular: regular rhythm Respiratory/Chest: lungs clear Abdomen: normal bowel sounds, non tender, soft, no organomegaly Edema: no edema noted Arm (L), no edema noted Arm (R), no edema noted Leg (L), no edema noted Leg (R), no edema noted Pedal (L), no edema noted Pedal (R), no edema noted Generalized Chema Hendricks MD Aug 24, 2019 11:31
[2019-08-24 12:00] VITALS: BP 135/73
--- NOTE | 2019-08-24 12:00 | NUR ---
RD ASSESSMENT & RECOMMENDATIONS SEE CARE ACTIVITY FOR COMPLETE ASSESSMENT DAILY ESTIMATED NEEDS: Needs based on cardiac, renal 58.75kg abw 25-30 kcals/kg 9808-7787 total kcals 0.8-1.0 g protein/kg 47-59 g total protein 25-30 mL/kg 1081-2159 total fluid mLs NUTRITION DIAGNOSIS: 1) Altered nutrition related lab values r/t renal dysfunction as evidenced by elev creat (4.1 -> 3.2 trend down) CURRENT DIET: Cardiac, Low K diet PO DIET RECOMMENDATIONS: Liberalized LOW NA w/ continued poor PO/ texture as tolerated ------ 48hr KCAL COUNT (03/24 menu tickets available): B1: 70-80 kcal B2: 120-170 kcal L1: 355 kcal D1: 280 kcal D2: 175-180 kcal Est intake over the course of 5 meals is 7694-9373 kcal, averaging 200 kcal per meal, est 600 kcal per day. Pt is meeting 34-41% of est needs of 7475-5877 kcal per day- INSUFFICIENT. Of note, pt did drink 100% of NEPRO on tray- 425 kcal/ 19g pro. -------- ADDITIONAL RECOMMENDATIONS: 1) Calibrated bedscale wt for accurate CBW (rec daily wt d/t poor intake) 2) Add NEPRO TID w/ meals (pt initially refused, now intake of 100%) 3) Monitor renal fxn + lytes -> renal fxn improving at this time 4) Monitor PO intake closely: consider appetite stimulant if not improved -> pt reports appetite is improving at this time -> pt does not want HPN however pt took 100% of Nepro 5) NEPHROVITE x 1 as supplement
--- NOTE | 2019-08-24 12:53 | Nephrology Progress Note ---
Assessment/Plan Problem List: (1) Anorexia (2) CKD (chronic kidney disease) stage 5, GFR less than 15 ml/min (3) Hypothyroidism (4) Anemia in chronic kidney disease (5) Dehydration Plan baseline creatinine 2.5-3 discontinue hydration, treat gastritis, eating better , epogen, consider psych eval as withdrawn and cognitive deficits, mobilize out of bed as little mental stimulation in bed, she should have elective av fistula in next several months, c/o heartburn, continue gi regimen Subjective Constitutional: Reports: weakness HEENT: Reports: no symptoms Genitourinary: Reports: incontinence Neurologic/Psychiatric: Reports: pre-existing deficit Objective Objective Last 24 Hour Vital Signs Date Time Temp Pulse Resp B/P (MAP) Pulse Ox O2 Delivery O2 Flow Rate FiO2 08/24/19 09:00 Room Air 08/24/19 08:48 88 140/68 08/24/19 08:48 140/68 08/24/19 08:45 88 140/68 08/24/19 08:00 98.4 88 19 140/68 (92) 96 08/24/19 05:27 139/81 08/24/19 04:00 98.4 83 19 139/81 (100) 93 08/24/19 00:04 98.9 86 19 138/78 (98) 97 08/23/19 22:22 130/73 08/23/19 21:00 Room Air 08/23/19 20:04 149/77 08/23/19 20:00 99.5 80 20 149/73 (98) 95 08/23/19 17:07 73 132/86 08/23/19 17:06 73 132/86 08/23/19 16:00 98.1 73 17 132/86 (101) 96 08/23/19 13:28 138/86 Intake and Output 08/23/19 08/24/19 19:00 07:00 Intake Total 160 ml Balance 160 ml Intake Oral 100 ml IV Total 60 ml # Voids 5 2 # Bowel Movements 1 Laboratory Tests 08/24/19 05:35: Sodium Level 148H, Potassium Level 4.3, Chloride Level 115H, Carbon Dioxide Level 21, Anion Gap 13, Blood Urea Nitrogen 39H, Creatinine 3.2H, Estimat Glomerular Filtration Rate , Glucose Level 96, Calcium Level 10.0, Total Bilirubin 0.3, Aspartate Amino Transf (AST/SGOT) 28, Alanine Aminotransferase ( ALT/SGPT) 27, Alkaline Phosphatase 50, Total Protein 7.5, Albumin 3.1L, Globulin 4.4, Albumin/Globulin Ratio 0.7L Height (Feet): 5 Height (Inches): 1.00 Weight (Pounds): 188 General Appearance: no apparent distress, alert EENT: normal ENT inspection Neck: normal alignment Cardiovascular: normal rate, regular rhythm Respiratory/Chest: lungs clear Abdomen: non tender Extremities: other - no edema Neurologic: motor weakness Jose Lemus MD Aug 24, 2019 12:53
--- NOTE | 2019-08-24 14:44 | General Progress Note ---
Assessment/Plan Status: stable, not improved Assessment/Plan: Assessment - h/o anemia, s/p EGD/Colon/Capsule endo - functional decline - Advanced renal failure - Anorexia, secondary to above - recent abd pain, negative CT Recommendations - Push po - TUMS PRN - Remeron trial - calorie count - off of po FeSo4 - Daughter wants to hold off on PEG for now Subjective Allergies: Coded Allergies: ERYTHROMYCIN BASE (Unverified Allergy, Intermediate, 07/14/19) Per patient not allergic to medications or food Subjective eating OK notes pyrosis resolved Objective Last 24 Hour Vital Signs Date Time Temp Pulse Resp B/P (MAP) Pulse Ox O2 Delivery O2 Flow Rate FiO2 08/24/19 13:39 135/73 08/24/19 12:00 98.1 85 19 135/73 (93) 95 08/24/19 09:00 Room Air 08/24/19 08:48 88 140/68 08/24/19 08:48 140/68 08/24/19 08:45 88 140/68 08/24/19 08:00 98.4 88 19 140/68 (92) 96 08/24/19 05:27 139/81 08/24/19 04:00 98.4 83 19 139/81 (100) 93 08/24/19 00:04 98.9 86 19 138/78 (98) 97 08/23/19 22:22 130/73 08/23/19 21:00 Room Air 08/23/19 20:04 149/77 08/23/19 20:00 99.5 80 20 149/73 (98) 95 08/23/19 17:07 73 132/86 08/23/19 17:06 73 132/86 08/23/19 16:00 98.1 73 17 132/86 (101) 96 Intake and Output 08/23/19 08/24/19 19:00 07:00 Intake Total 160 ml Balance 160 ml Intake Oral 100 ml IV Total 60 ml # Voids 5 2 # Bowel Movements 1 Laboratory Tests 08/24/19 05:35: Sodium Level 148H, Potassium Level 4.3, Chloride Level 115H, Carbon Dioxide Level 21, Anion Gap 13, Blood Urea Nitrogen 39H, Creatinine 3.2H, Estimat Glomerular Filtration Rate , Glucose Level 96, Calcium Level 10.0, Total Bilirubin 0.3, Aspartate Amino Transf (AST/SGOT) 28, Alanine Aminotransferase ( ALT/SGPT) 27, Alkaline Phosphatase 50, Total Protein 7.5, Albumin 3.1L, Globulin 4.4, Albumin/Globulin Ratio 0.7L Height (Feet): 5 Height (Inches): 1.00 Weight (Pounds): 188 Objective WDWN AA woman NCAT supple CTA RRR abd soft, obese no edema Mina Rao MD Aug 24, 2019 14:44
[2019-08-24 16:00] VITALS: BP 139/81
--- NOTE | 2019-08-24 19:26 | NUR ---
HAND-OFF: Report given to ENRIQUE Mccabe.
--- NOTE | 2019-08-24 19:30 | NUR ---
NURSE NOTES: Pt received sitting in chair, no acute distress. IV is intact. Pt stated she will go back to bed in a while. Call light in reach, instructed to call for assistance, verbalized understanding.
[2019-08-24 20:30] VITALS: BP 157/62
[2019-08-24] MEDS: cloNIDine 0.2mg Tab ORAL SCH (21:07)
[2019-08-25] VITALS: BP 128/69
[2019-08-25 04:00] VITALS: BP 137/73
--- NOTE | 2019-08-25 04:45 | Progress Note ---
DATE: 08/24/2019 CARDIOLOGY PROGRESS NOTE SUBJECTIVE: Discharge has been canceled due to worsening metabolic parameters. The patient's intake is poor. She is withdrawn. OBJECTIVE: VITAL SIGNS: Blood pressure 157/62, pulse 84, respirations 18, afebrile. LUNGS: Clear with diminished breath sounds. CARDIAC: Regular rhythm and rate. Normal S1, S2 with no rub and a 1/6 systolic apical murmur. ABDOMEN: Obese, but soft. EXTREMITIES: With nonpitting edema. LABORATORY DATA: Sodium 148, potassium 4.3, chloride 115, bicarb 21, BUN 39, creatinine 3.2. IMPRESSION: 1. Hypertensive heart disease. 2. Labile blood pressure. 3. Minimal pericardial effusion. 4. Dehydration. 5. . 6. Worsening renal failure. PLAN: 1. Discontinue sodium bicarb. 2. Encourage oral intake. 3. May need to resume hypotonic IV fluids again. 4. Titrate antihypertensives. Lance Rivas M.D. DR: FLORENCIO JOB#: [id number] CC:
--- NOTE | 2019-08-25 04:45 | Progress Note ---
DATE: 08/23/2019 CARDIOLOGY PROGRESS NOTE Late entry. SUBJECTIVE: The patient is on IV fluids due to poor oral intake. OBJECTIVE: VITAL SIGNS: Blood pressure 154/76, pulse 82, respirations 19. LUNGS: Clear with diminished breath sounds. CARDIAC: Regular rhythm and rate. Normal S1, S2 with a 1/6 systolic murmur at apex. No rub. ABDOMEN: Soft. EXTREMITIES: No pitting edema. LABORATORY DATA: White count 4.2, hemoglobin 9.9. Sodium 147, potassium 4.1, chloride 113, bicarb 21, BUN 42, and creatinine 3.1. Ionized calcium 1.2. IMPRESSION: 1. Worsening dehydration. 2. Hypernatremia. 3. Hyperchloremia. 4. Worsening renal failure due to poor oral intake. 5. Clinically insignificant pericardial effusion and hypertensive heart disease with acute on chronic diastolic congestive heart failure. PLAN: 1. Hypotonic IV fluids. 2. Encourage oral intake. 3. Appetite stimulant. 4. Titrate antihypertensives. Lance Rivas M.D. DR: ELVIA JOB#: [id number] CC:
[2019-08-25] MEDS: HydrALAZINE 50mg tab ORAL SCH ×3 (05:44→22:14)
[2019-08-25] MEDS: Levothyroxine 125mcg tab ORAL SCH (05:45)
--- NOTE | 2019-08-25 07:31 | NUR ---
HAND-OFF: Report given to Kayla NUNEZ.
--- NOTE | 2019-08-25 07:32 | NUR ---
NURSE NOTES: Patient received resting in bed, awake. RN assisted patient out of bed to eat breakfast. Patient ambulated via walker. Denies SOB or pain at this time. Needs attended to. Call light placed within reach, will continue to monitor.
[2019-08-25 07:59] VITALS: BP 150/87
[2019-08-25 08:00] LABS: ALANINE AMINOTRANSFERASE 27 U/L (12-78); ALBUMIN 3.2 G/DL (3.4-5.0); ALBUMIN/GLOBULIN RATIO 0.8 (1.0-2.7); ALKALINE PHOSPHATASE 51 U/L (46-116); ANION GAP 12 mmol/L (5-15); ASPARTATE AMINO TRANSFERASE 28 U/L (15-37); BILIRUBIN,TOTAL 0.3 MG/DL (0.2-1.0); BLOOD UREA NITROGEN 46 mg/dL (7-18); CALCIUM 10.4 MG/DL (8.5-10.1); CARBON DIOXIDE 21 MMOL/L (21-32); CHLORIDE 114 MMOL/L (98-107); CREATININE 3.9 MG/DL (0.55-1.30); POTASSIUM 4.5 MMOL/L (3.5-5.1); SODIUM 149 MMOL/L (136-145)
[2019-08-25] MEDS: Metoprolol 25mg tab ORAL SCH ×2 (08:15→17:05)
[2019-08-25] MEDS: Docusate 100mg cap ORAL SCH ×3 (08:15→17:05)
[2019-08-25] MEDS: NIFEdipine 10mg cap ORAL SCH ×2 (08:15→17:05)
[2019-08-25] MEDS: Calcitriol 0.25mcg Cap ORAL SCH (08:15)
[2019-08-25] MEDS: Vitamin D 1000 IU Tab ORAL SCH ×2 (08:15→17:05)
[2019-08-25] MEDS: Sennosides 8.6mg tab ORAL SCH (08:15)
--- NOTE | 2019-08-25 11:43 | General Progress Note ---
Assessment/Plan Status: stable, not improved Assessment/Plan: Assessment - h/o anemia, s/p EGD/Colon/Capsule endo - functional decline - Advanced renal failure - Anorexia, secondary to above - recent abd pain, negative CT Recommendations - Push po - TUMS PRN - Remeron trial - calorie count - off of po FeSo4 - Daughter wants to hold off on PEG for now Subjective Allergies: Coded Allergies: ERYTHROMYCIN BASE (Unverified Allergy, Intermediate, 07/14/19) Per patient not allergic to medications or food Subjective Feels OK no abdominal complaints Objective Last 24 Hour Vital Signs Date Time Temp Pulse Resp B/P (MAP) Pulse Ox O2 Delivery O2 Flow Rate FiO2 08/25/19 09:00 Room Air 08/25/19 08:15 99 150/87 08/25/19 08:15 150/87 08/25/19 08:15 99 150/87 08/25/19 07:59 98.6 99 18 150/87 (108) 98 08/25/19 05:44 137/80 08/25/19 04:00 98.9 89 19 137/73 (94) 95 08/25/19 00:00 98.8 83 19 128/69 (88) 95 08/24/19 21:07 157/62 08/24/19 21:06 157/62 08/24/19 21:00 Room Air 08/24/19 20:30 98.2 84 20 157/62 (93) 96 08/24/19 18:24 80 139/81 08/24/19 18:24 80 139/81 08/24/19 16:00 99.0 80 18 139/81 (100) 95 08/24/19 13:39 135/73 08/24/19 12:00 98.1 85 19 135/73 (93) 95 Intake and Output 08/24/19 08/25/19 19:00 07:00 Intake Total 500 ml 600 ml Balance 500 ml 600 ml Intake Oral 100 ml Other 500 ml 500 ml # Voids 2 # Bowel Movements 1 Laboratory Tests 08/25/19 06:40: Sodium Level 149H, Potassium Level 4.5, Chloride Level 114H, Carbon Dioxide Level 21, Anion Gap 12, Blood Urea Nitrogen 46H, Creatinine 3.9H, Estimat Glomerular Filtration Rate , Glucose Level 102, Uric Acid 12.3H, Calcium Level 10.4H, Magnesium Level 2.2, Total Bilirubin 0.3, Aspartate Amino Transf (AST/ SGOT) 28, Alanine Aminotransferase (ALT/SGPT) 27, Alkaline Phosphatase 51, Pro-B -Type Natriuretic Peptide 1105H, Total Protein 7.2, Albumin 3.2L, Globulin 4.0, Albumin/Globulin Ratio 0.8L Height (Feet): 5 Height (Inches): 1.00 Weight (Pounds): 188 Objective WDWN AA woman NCAT supple CTA RRR abd soft, obese no edema Mina Rao MD Aug 25, 2019 11:43
[2019-08-25 11:53] VITALS: BP 123/75
[2019-08-25 16:00] VITALS: BP 149/84
--- NOTE | 2019-08-25 17:55 | General Progress Note ---
Assessment/Plan Problem List: (1) UTI (urinary tract infection) ICD Codes: N39.0 - Urinary tract infection, site not specified SNOMED: 71311324 (2) Abdominal pain in female ICD Codes: R10.9 - Unspecified abdominal pain SNOMED: 63255801 (3) Acute renal failure (ARF) ICD Codes: N17.9 - Acute renal failure (ARF) SNOMED: 80190426 (4) Dehydration ICD Codes: E86.0 - Dehydration SNOMED: 11262902 Status: stable, not improved Assessment/Plan: ivf per renal encourage pos antiemetics/pain rx GI eval appreciated remeron for appetite psych eval consider megace trial Subjective ROS Limited/Unobtainable: No Constitutional: Reports: malaise, weakness HEENT: Reports: no symptoms Cardiovascular: Reports: no symptoms Respiratory: Reports: no symptoms Gastrointestinal/Abdominal: Reports: abdominal pain, poor appetite, poor fluid intake Genitourinary: Reports: no symptoms Neurologic/Psychiatric: Reports: pre-existing deficit Endocrine: Reports: no symptoms Hematologic/Lymphatic: Reports: no symptoms Allergies: Coded Allergies: ERYTHROMYCIN BASE (Unverified Allergy, Intermediate, 07/14/19) Per patient not allergic to medications or food All Systems: reviewed and negative except above Subjective no change. refusing most meals. ate on 50% of on meal yesterday. renal fxn worsening. on ivf. Objective Last 24 Hour Vital Signs Date Time Temp Pulse Resp B/P (MAP) Pulse Ox O2 Delivery O2 Flow Rate FiO2 08/25/19 17:05 82 149/84 08/25/19 17:05 82 149/84 08/25/19 16:00 98.1 82 20 149/84 (105) 98 08/25/19 13:48 123/75 08/25/19 11:53 98.5 77 18 123/75 (91) 95 08/25/19 09:00 Room Air 08/25/19 08:15 99 150/87 08/25/19 08:15 150/87 08/25/19 08:15 99 150/87 08/25/19 07:59 98.6 99 18 150/87 (108) 98 08/25/19 05:44 137/80 08/25/19 04:00 98.9 89 19 137/73 (94) 95 10/7/19 00:00 98.8 83 19 128/69 (88) 95 08/24/19 21:07 157/62 08/24/19 21:06 157/62 08/24/19 21:00 Room Air 08/24/19 20:30 98.2 84 20 157/62 (93) 96 08/24/19 18:24 80 139/81 08/24/19 18:24 80 139/81 Intake and Output 08/24/19 08/25/19 19:00 07:00 Intake Total 500 ml 600 ml Balance 500 ml 600 ml Intake Oral 100 ml Other 500 ml 500 ml # Voids 2 # Bowel Movements 1 Laboratory Tests 08/25/19 06:40: Sodium Level 149H, Potassium Level 4.5, Chloride Level 114H, Carbon Dioxide Level 21, Anion Gap 12, Blood Urea Nitrogen 46H, Creatinine 3.9H, Estimat Glomerular Filtration Rate , Glucose Level 102, Uric Acid 12.3H, Calcium Level 10.4H, Magnesium Level 2.2, Total Bilirubin 0.3, Aspartate Amino Transf (AST/ SGOT) 28, Alanine Aminotransferase (ALT/SGPT) 27, Alkaline Phosphatase 51, Pro-B -Type Natriuretic Peptide 1105H, Total Protein 7.2, Albumin 3.2L, Globulin 4.0, Albumin/Globulin Ratio 0.8L Height (Feet): 5 Height (Inches): 1.00 Weight (Pounds): 188 Objective General Appearance: WD/WN, alert Neck: supple Cardiovascular: regular rhythm Respiratory/Chest: lungs clear Abdomen: normal bowel sounds, non tender, soft, no organomegaly Edema: no edema noted Arm (L), no edema noted Arm (R), no edema noted Leg (L), no edema noted Leg (R), no edema noted Pedal (L), no edema noted Pedal (R), no edema noted Generalized Chema Hendricks MD Aug 25, 2019 17:55
[2019-08-25] MEDS ORDERED: Heparin 5000 units/ml inj SUBQ SCH (18:00)
[2019-08-25] MEDS: Megace 400mg/10ml Susp ORAL SCH (18:20)
--- NOTE | 2019-08-25 18:56 | Nephrology Progress Note ---
Assessment/Plan Problem List: (1) Anorexia (2) CKD (chronic kidney disease) stage 5, GFR less than 15 ml/min (3) Hypothyroidism (4) Anemia in chronic kidney disease (5) Dehydration Plan baseline creatinine 2.5-3 discontinue hydration, treat gastritis, eating better , epogen, consider psych eval as withdrawn and cognitive deficits, mobilize out of bed as little mental stimulation in bed, she should have elective av fistula in next several months, c/o heartburn, continue gi regimen lab worse and iv hydration Subjective Constitutional: Reports: weakness HEENT: Reports: no symptoms Genitourinary: Reports: incontinence Neurologic/Psychiatric: Reports: pre-existing deficit Objective Objective Last 24 Hour Vital Signs Date Time Temp Pulse Resp B/P (MAP) Pulse Ox O2 Delivery O2 Flow Rate FiO2 08/25/19 17:05 82 149/84 08/25/19 17:05 82 149/84 08/25/19 16:00 98.1 82 20 149/84 (105) 98 08/25/19 13:48 123/75 08/25/19 11:53 98.5 77 18 123/75 (91) 95 08/25/19 09:00 Room Air 08/25/19 08:15 99 150/87 08/25/19 08:15 150/87 08/25/19 08:15 99 150/87 08/25/19 07:59 98.6 99 18 150/87 (108) 98 08/25/19 05:44 137/80 08/25/19 04:00 98.9 89 19 137/73 (94) 95 08/25/19 00:00 98.8 83 19 128/69 (88) 95 08/24/19 21:07 157/62 08/24/19 21:06 157/62 08/24/19 21:00 Room Air 08/24/19 20:30 98.2 84 20 157/62 (93) 96 Intake and Output 08/24/19 08/25/19 19:00 07:00 Intake Total 500 ml 600 ml Balance 500 ml 600 ml Intake Oral 100 ml Other 500 ml 500 ml # Voids 2 # Bowel Movements 1 Laboratory Tests 08/25/19 06:40: Sodium Level 149H, Potassium Level 4.5, Chloride Level 114H, Carbon Dioxide Level 21, Anion Gap 12, Blood Urea Nitrogen 46H, Creatinine 3.9H, Estimat Glomerular Filtration Rate , Glucose Level 102, Uric Acid 12.3H, Calcium Level 10.4H, Magnesium Level 2.2, Total Bilirubin 0.3, Aspartate Amino Transf (AST/ SGOT) 28, Alanine Aminotransferase (ALT/SGPT) 27, Alkaline Phosphatase 51, Pro-B -Type Natriuretic Peptide 1105H, Total Protein 7.2, Albumin 3.2L, Globulin 4.0, Albumin/Globulin Ratio 0.8L Height (Feet): 5 Height (Inches): 1.00 Weight (Pounds): 188 General Appearance: no apparent distress, alert, morbidly obese EENT: normal ENT inspection Neck: normal alignment Cardiovascular: normal rate, regular rhythm Respiratory/Chest: lungs clear Abdomen: non tender Extremities: other - no edema Neurologic: motor weakness Jose Lemus MD Aug 25, 2019 18:56
--- NOTE | 2019-08-25 19:29 | NUR ---
NURSE NOTES: Received a report from Hanna Reaves RN. Pt is in stable condition. AAOX4. Able to make needs known. On room air. No c/o pain/discomfort. IV site is patent and intact. Bed in lowest position. Bed alarm is on. Call light within reach. Will continue to monitor.
--- NOTE | 2019-08-25 19:30 | NUR ---
HAND-OFF: Report given to Aleta NUNEZ.
[2019-08-25 20:00] VITALS: BP 138/67
[2019-08-25] MEDS: Epoetin Alfa-EPBX (NON ESRD) 3000 units/ml vial SUBQ SCH (20:50)
[2019-08-25] MEDS: Epoetin Alfa-EPBX (NON ESRD)4000 units/ml vial SUBQ SCH (20:50)
[2019-08-25] MEDS: cloNIDine 0.2mg Tab ORAL SCH (20:50)
[2019-08-25] MEDS: Heparin 5000 units/ml inj SUBQ SCH (20:52)
[2019-08-26] VITALS: BP 145/75
[2019-08-26 04:00] VITALS: BP 149/76
[2019-08-26] MEDS: HydrALAZINE 50mg tab ORAL SCH ×3 (05:37→22:06)
[2019-08-26] MEDS: Levothyroxine 125mcg tab ORAL SCH (05:37)
--- NOTE | 2019-08-26 05:45 | Progress Note ---
DATE: 08/25/2019 CARDIOLOGY PROGRESS NOTE SUBJECTIVE: The patient's oral intake remains poor. She is back on IV fluids. Renal function worsened due to poor oral intake. OBJECTIVE: VITAL SIGNS: Blood pressure 149/84, pulse 82, respirations 20. NECK: Supple. LUNGS: Clear. CARDIAC: Regular. Normal S1, S2. No rub. ABDOMEN: Soft, obese. EXTREMITIES: Dependent edema noted. LABORATORY DATA: Sodium 149, potassium 4.5, chloride 114, bicarb 21, BUN 46, creatinine 3.9. Pro-natriuretic peptide 1100. Albumin 3.2. IMPRESSION: 1. Dehydration, hyponatremia. 2. Hyperchloremia. 3. Worsening renal failure, all due to inadequate oral intake. 4. Pericardial effusion of no clinical significance. 5. Acute on chronic diastolic congestive heart failure. 6. Mild protein-calorie malnutrition. PLAN: 1. Continue IV fluids. 2. Encourage fluid intake. 3. May need to consider G-tube for supplemental hydration and nutrition. 4. Monitor electrolytes and cardiorenal parameters with hypotonic IV fluids. Lance Rivas M.D. DR: BELEM JOB#: [id number] CC:
[2019-08-26 06:21] LABS: BASOPHILS % (AUTO) 0.5 % (0.0-2.0); HEMATOCRIT 29.1 % (37.0-47.0); HEMOGLOBIN 9.6 G/DL (12.0-16.0); LYMPHOCYTES % (AUTO) 23.9 % (20.0-45.0); MEAN CORPUSCULAR VOLUME 93 FL (80-99); MONOCYTES % (AUTO) 10.3 % (1.0-10.0); NEUTROPHILS % (AUTO) 62.3 % (45.0-75.0); PLATELET COUNT 201 K/UL (150-450); RED BLOOD COUNT 3.11 M/UL (4.20-5.40); RED CELL DISTRIBUTION WIDTH 13.4 % (11.6-14.8); WHITE BLOOD COUNT 3.5 K/UL (4.8-10.8)
[2019-08-26 06:24] LABS: ANION GAP 15 mmol/L (5-15); BLOOD UREA NITROGEN 40 mg/dL (7-18); CALCIUM 9.8 MG/DL (8.5-10.1); CARBON DIOXIDE 18 MMOL/L (21-32); CHLORIDE 112 MMOL/L (98-107); CREATININE 3.3 MG/DL (0.55-1.30); POTASSIUM 3.9 MMOL/L (3.5-5.1); SODIUM 145 MMOL/L (136-145)
--- NOTE | 2019-08-26 07:30 | NUR ---
HAND-OFF: Report given to Hanna Reaves RN.
--- NOTE | 2019-08-26 07:50 | NUR ---
NURSE NOTES: Patient received in stable condition, resting in bed at this time. Alert and oriented, responding appropriately. Breathing unlabored on room air, denies SOB or pain. RN to assist patient to chair to eat breakfast. IV site patent and intact, fluids running at 125cc/hr. Call light placed within reach, will continue to monitor.
[2019-08-26 08:00] VITALS: BP 147/80
[2019-08-26] MEDS: Metoprolol 25mg tab ORAL SCH (08:36)
[2019-08-26] MEDS: Calcitriol 0.25mcg Cap ORAL SCH (08:36)
[2019-08-26] MEDS: Docusate 100mg cap ORAL SCH ×3 (08:36→18:00)
[2019-08-26] MEDS: Vitamin D 1000 IU Tab ORAL SCH ×2 (08:36→18:00)
[2019-08-26] MEDS: Sennosides 8.6mg tab ORAL SCH (08:36)
[2019-08-26] MEDS: Megace 400mg/10ml Susp ORAL SCH ×2 (08:37→18:00)
--- NOTE | 2019-08-26 08:38 | General Progress Note ---
Assessment/Plan Problem List: (1) UTI (urinary tract infection) ICD Codes: N39.0 - Urinary tract infection, site not specified SNOMED: 32101936 (2) Abdominal pain in female ICD Codes: R10.9 - Unspecified abdominal pain SNOMED: 36342450 (3) Acute renal failure (ARF) ICD Codes: N17.9 - Acute renal failure (ARF) SNOMED: 80678854 (4) Dehydration ICD Codes: E86.0 - Dehydration SNOMED: 12734568 Status: stable, not improved Assessment/Plan: ivf per renal encourage pos antiemetics/pain rx GI eval appreciated remeron and megace for appetite psych eval Subjective ROS Limited/Unobtainable: No Constitutional: Reports: malaise, weakness HEENT: Reports: no symptoms Cardiovascular: Reports: no symptoms Respiratory: Reports: no symptoms Gastrointestinal/Abdominal: Reports: abdominal pain, poor appetite Genitourinary: Reports: no symptoms Neurologic/Psychiatric: Reports: pre-existing deficit Endocrine: Reports: no symptoms Hematologic/Lymphatic: Reports: no symptoms Allergies: Coded Allergies: ERYTHROMYCIN BASE (Unverified Allergy, Intermediate, 07/14/19) Per patient not allergic to medications or food All Systems: reviewed and negative except above Subjective no change. refusing most meals. ate on 50% of dinner. refused all other meals/ po renal. on ivf. megace started yesterday Objective Last 24 Hour Vital Signs Date Time Temp Pulse Resp B/P (MAP) Pulse Ox O2 Delivery O2 Flow Rate FiO2 08/26/19 05:37 149/76 08/26/19 04:00 97.4 85 18 149/76 (100) 96 08/26/19 00:00 97.6 86 18 145/75 (98) 96 08/25/19 22:14 128/70 08/25/19 21:00 Room Air 08/25/19 20:50 138/67 08/25/19 20:00 97.5 75 18 138/67 (90) 97 08/25/19 17:05 82 149/84 08/25/19 17:05 82 149/84 08/25/19 16:00 98.1 82 20 149/84 (105) 98 08/25/19 13:48 123/75 08/25/19 11:53 98.5 77 18 123/75 (91) 95 08/25/19 09:00 Room Air Intake and Output 08/25/19 08/26/19 19:00 07:00 Intake Total 245 ml 1125 ml Balance 245 ml 1125 ml Intake Oral 120 ml IV Total 125 ml 1125 ml # Voids 3 1 Laboratory Tests 08/26/19 05:40: White Blood Count 3.5L, Red Blood Count 3.11L, Hemoglobin 9.6L, Hematocrit 29.1L , Mean Corpuscular Volume 93, Mean Corpuscular Hemoglobin 30.8, Mean Corpuscular Hemoglobin Concent 33.0, Red Cell Distribution Width 13.4, Platelet Count 201, Mean Platelet Volume 6.6, Neutrophils (%) (Auto) 62.3, Lymphocytes (% ) (Auto) 23.9, Monocytes (%) (Auto) 10.3H, Eosinophils (%) (Auto) 3.0, Basophils (%) (Auto) 0.5, Sodium Level 145, Potassium Level 3.9, Chloride Level 112H, Carbon Dioxide Level 18L, Anion Gap 15, Blood Urea Nitrogen 40H, Creatinine 3.3H, Estimat Glomerular Filtration Rate , Glucose Level 90, Calcium Level 9.8 Height (Feet): 5 Height (Inches): 1.00 Weight (Pounds): 188 Objective General Appearance: WD/WN, alert Neck: supple Cardiovascular: regular rhythm Respiratory/Chest: lungs clear Abdomen: normal bowel sounds, non tender, soft, no organomegaly Edema: no edema noted Arm (L), no edema noted Arm (R), no edema noted Leg (L), no edema noted Leg (R), no edema noted Pedal (L), no edema noted Pedal (R), no edema noted Generalized Chema Hendricks MD Aug 26, 2019 08:38
[2019-08-26] MEDS: Heparin 5000 units/ml inj SUBQ SCH ×2 (08:43→21:00)
[2019-08-26] MEDS: NIFEdipine 10mg cap ORAL SCH ×2 (09:35→18:00)
--- NOTE | 2019-08-26 09:42 | Nephrology Progress Note ---
Assessment/Plan Problem List: (1) Anorexia (2) CKD (chronic kidney disease) stage 5, GFR less than 15 ml/min (3) Hypothyroidism (4) Anemia in chronic kidney disease (5) Dehydration Plan baseline creatinine 2.5-3 discontinue hydration, treat gastritis,, epogen, consider psych eval as withdrawn and cognitive deficits, mobilize out of bed as little mental stimulation in bed, she should have elective av fistula in next several months, c/o heartburn, continue gi regimen lab worse and iv hydration ongoing, did not eat breakfast today Subjective Constitutional: Reports: weakness HEENT: Reports: no symptoms Genitourinary: Reports: incontinence Neurologic/Psychiatric: Reports: pre-existing deficit Objective Objective Last 24 Hour Vital Signs Date Time Temp Pulse Resp B/P (MAP) Pulse Ox O2 Delivery O2 Flow Rate FiO2 08/26/19 09:35 85 149/76 08/26/19 08:36 85 149/76 08/26/19 08:36 149/76 08/26/19 08:00 97.9 89 20 147/80 (102) 98 08/26/19 05:37 149/76 08/26/19 04:00 97.4 85 18 149/76 (100) 96 08/26/19 00:00 97.6 86 18 145/75 (98) 96 08/25/19 22:14 128/70 08/25/19 21:00 Room Air 08/25/19 20:50 138/67 08/25/19 20:00 97.5 75 18 138/67 (90) 97 08/25/19 17:05 82 149/84 08/25/19 17:05 82 149/84 08/25/19 16:00 98.1 82 20 149/84 (105) 98 08/25/19 13:48 123/75 08/25/19 11:53 98.5 77 18 123/75 (91) 95 Intake and Output 08/25/19 08/26/19 19:00 07:00 Intake Total 245 ml 1125 ml Balance 245 ml 1125 ml Intake Oral 120 ml IV Total 125 ml 1125 ml # Voids 3 1 Laboratory Tests 08/26/19 05:40: White Blood Count 3.5L, Red Blood Count 3.11L, Hemoglobin 9.6L, Hematocrit 29.1L , Mean Corpuscular Volume 93, Mean Corpuscular Hemoglobin 30.8, Mean Corpuscular Hemoglobin Concent 33.0, Red Cell Distribution Width 13.4, Platelet Count 201, Mean Platelet Volume 6.6, Neutrophils (%) (Auto) 62.3, Lymphocytes (% ) (Auto) 23.9, Monocytes (%) (Auto) 10.3H, Eosinophils (%) (Auto) 3.0, Basophils (%) (Auto) 0.5, Sodium Level 145, Potassium Level 3.9, Chloride Level 112H, Carbon Dioxide Level 18L, Anion Gap 15, Blood Urea Nitrogen 40H, Creatinine 3.3H, Estimat Glomerular Filtration Rate , Glucose Level 90, Calcium Level 9.8 Height (Feet): 5 Height (Inches): 1.00 Weight (Pounds): 188 General Appearance: no apparent distress, alert EENT: normal ENT inspection Neck: normal alignment Cardiovascular: regular rhythm Respiratory/Chest: lungs clear Abdomen: non tender, soft Extremities: other - no edema Neurologic: motor weakness Jose Lemus MD Aug 26, 2019 09:42
[2019-08-26 12:00] VITALS: BP 139/70
--- NOTE | 2019-08-26 13:13 | NUR ---
CASE MANAGEMENT:REVIEW 08/26/19 SI: ACUTE RENAL FAILURE. DEHYDRATION. FTT 98.1 77 16 139/70 98% ON RA H/H-9.6/29.1 BUN+40 CR+3.3 IS: MEGACE PO BID REMERON PO QHS IVF@125/HR : MED/SURG STATUS 4 [facility]
[2019-08-26] MEDS ORDERED: Tums 500mg ORAL PRN (15:45)
[2019-08-26] MEDS ORDERED: HydrALAZINE 25mg tab ORAL PRN (15:45)
[2019-08-26 16:00] VITALS: BP 143/81
--- NOTE | 2019-08-26 16:00 | General Progress Note ---
Assessment/Plan Status: stable, not improved Assessment/Plan: Assessment - h/o anemia, s/p EGD/Colon/Capsule endo - functional decline - Advanced renal failure - Anorexia, secondary to above - recent abd pain, negative CT Recommendations - Push po - TUMS PRN - Remeron trial - calorie count - off of po FeSo4 - Daughter wants to hold off on PEG for now Subjective Allergies: Coded Allergies: ERYTHROMYCIN BASE (Unverified Allergy, Intermediate, 07/14/19) Per patient not allergic to medications or food Subjective Feels OK no abdominal complaints poor po this am Objective Last 24 Hour Vital Signs Date Time Temp Pulse Resp B/P (MAP) Pulse Ox O2 Delivery O2 Flow Rate FiO2 08/26/19 13:07 139/70 08/26/19 12:00 98.1 77 16 139/70 (93) 98 08/26/19 09:35 85 149/76 08/26/19 09:00 Room Air 08/26/19 08:36 85 149/76 08/26/19 08:36 149/76 08/26/19 08:00 97.9 89 20 147/80 (102) 98 08/26/19 05:37 149/76 08/26/19 04:00 97.4 85 18 149/76 (100) 96 08/26/19 00:00 97.6 86 18 145/75 (98) 96 08/25/19 22:14 128/70 08/25/19 21:00 Room Air 08/25/19 20:50 138/67 08/25/19 20:00 97.5 75 18 138/67 (90) 97 08/25/19 17:05 82 149/84 08/25/19 17:05 82 149/84 08/25/19 16:00 98.1 82 20 149/84 (105) 98 Intake and Output 08/25/19 08/26/19 19:00 07:00 Intake Total 245 ml 1125 ml Balance 245 ml 1125 ml Intake Oral 120 ml IV Total 125 ml 1125 ml # Voids 3 1 Laboratory Tests 08/26/19 05:40: White Blood Count 3.5L, Red Blood Count 3.11L, Hemoglobin 9.6L, Hematocrit 29.1L , Mean Corpuscular Volume 93, Mean Corpuscular Hemoglobin 30.8, Mean Corpuscular Hemoglobin Concent 33.0, Red Cell Distribution Width 13.4, Platelet Count 201, Mean Platelet Volume 6.6, Neutrophils (%) (Auto) 62.3, Lymphocytes (% ) (Auto) 23.9, Monocytes (%) (Auto) 10.3H, Eosinophils (%) (Auto) 3.0, Basophils (%) (Auto) 0.5, Sodium Level 145, Potassium Level 3.9, Chloride Level 112H, Carbon Dioxide Level 18L, Anion Gap 15, Blood Urea Nitrogen 40H, Creatinine 3.3H, Estimat Glomerular Filtration Rate , Glucose Level 90, Calcium Level 9.8 Height (Feet): 5 Height (Inches): 1.00 Weight (Pounds): 188 Objective WDWN AA woman NCAT supple CTA RRR abd soft, obese no edema Mina Rao MD Aug 26, 2019 16:00
[2019-08-26] MEDS ORDERED: Lidocaine 1% Plain 30 ml INJ PRN (16:15)
[2019-08-26] MEDS ORDERED: Heparin1,000 units/500ml Premix(Conc:2 units/ml) IV PRN (16:15)
--- NOTE | 2019-08-26 16:16 | NUR ---
WEEKLY SWALLOW/SPEECH THERAPY SUMMARY: PATIENT SEEN FOR DYSPHAGIA, SEE SWALLOW EVAL. GOALS NOT MET FOR INTAKE (0 TO 25% BUT GETTING HIGH STACY SUPPLEMENTS). GOALS MET FOR STAFF EDUCATED/TRAINED IN ASP PREC. MOD BARIUM SWALLOW STUDY (MBSS) NOT COMPLETED DUE TO SCHEDULE CONFLICTS. PLAN: CONTINUE WITH PLAN OF CARE IN SWALLOW EVAL AND COMPLETE MBSS IP OR OP IF D/C (DO NOT HOLD UP DC FOR THIS STUDY).
--- NOTE | 2019-08-26 16:35 | NUR ---
NURSE NOTES: RN received order for PICC line placement. RN explained purpose and procedure to the patient. Patient verbalized understanding and requested that her daughter be apprised. RN attempted to reach daughter. Phone kept ringing, no voicemail option. Will try again at a later time.
--- NOTE | 2019-08-26 19:08 | NUR ---
HAND-OFF: Report given to Aleta NUNEZ.
[2019-08-26 20:00] VITALS: BP 161/104
[2019-08-26] MEDS: Metoprolol Tartrate 50mg tab ORAL SCH (20:59)
[2019-08-26] MEDS ORDERED: Metoprolol Tartrate 50mg tab ORAL SCH (21:00)
--- NOTE | 2019-08-26 23:15 | Progress Note ---
DATE: 08/26/2019 CARDIOLOGY PROGRESS NOTE SUBJECTIVE: Intake remains poor related to appetite. She is on Remeron and Megace. She has been restarted on IV fluids due to worsening renal parameters and hypovolemia. OBJECTIVE: VITAL SIGNS: Blood pressure 149/76, pulse 85, respirations 18. LUNGS: Clear. CARDIAC: Regular. ABDOMEN: Soft. EXTREMITIES: Trace edema. LABORATORY DATA: White count 3.5, hemoglobin 9.6. Sodium 145, potassium 3.9, bicarb 18, BUN 40, creatinine 3.3. IMPRESSION: 1. Hyperuricemia. 2. Hypertensive heart disease. No clinical signs of acute congestive heart failure. Renal function and electrolytes are improving with IV fluids. Long-term concerns remain regarding adequate p.o. oral and fluid intake. PLAN: Titrate antihypertensives. Attempt to replace clonidine. Consideration for feeding tube in the future. IV fluids for now. Lance Rivas M.D. DR: BELEM JOB#: [id number] CC:
[2019-08-27] VITALS (8 sets, daily range): BP systolic 128–166; BP diastolic 66–89
--- NOTE | 2019-08-27 03:30 | NUR ---
NURSE NOTES: Pt's IV is leaking. Aleta RN and Charge Nurse Lenka tried to insert the IV, but failed. Will endorse to the morning nurse to follow up the PICC line placement as soon as possible.
--- NOTE | 2019-08-27 05:30 | Consultation ---
DATE OF CONSULTATION: 08/26/2019 CONSULTING PHYSICIAN: Henrietta Hartmann M.D. HISTORY OF PRESENT ILLNESS: This is a 73-year-old female with a history of CKD, hypothyroidism, anorexia, dehydration, UTI, oliguria, acidosis, pancytopenia, who has been admitted to the hospital for medical stabilization. The patient has low appetite and has not been eating. The patient has been losing weight. The patient presents with depressed mood, anhedonia, worthlessness, hopelessness, and decreased energy. The patient was started on Remeron and Megace. The Remeron was started today. PAST PSYCHIATRIC HISTORY: Depression. PAST MEDICAL HISTORY: As above. ALLERGIES: To erythromycin. SUBSTANCE ABUSE HISTORY: No known history of illicit drug use or alcohol. MENTAL STATUS EXAMINATION: The patient is alert and oriented times self, place, and situation. Mood is depressed. Affect is blunted, congruent with mood. Thought process, linear and goal oriented. Thought content, no suicidal or homicidal ideations. Memory, concentration, and attention is slightly impaired. Insight and judgment are fair. ASSESSMENT: [place] I Major depressive disorder. [place] II Deferred. [place] III Low appetite. [place] IV Low. [place] V 50. PLAN: 1. We will increase the Remeron to 15 mg at bedtime. 2. It will take about few days for the Remeron to be effective. 3. Provide the patient with reality orientation and supportive therapy. Henrietta Hartmann M.D. DR: DES JOB#: [id number] CC: YUE
[2019-08-27] MEDS: HydrALAZINE 50mg tab ORAL SCH ×4 (06:15→23:32)
[2019-08-27] MEDS ORDERED: Levothyroxine 125mcg tab ORAL SCH (06:30)
--- NOTE | 2019-08-27 07:15 | NUR ---
HAND-OFF: Report given to ENRIQUE Bain.
--- NOTE | 2019-08-27 07:30 | NUR ---
NURSE NOTES: Received report from ENRIQUE River. Pt is alert, awake, and oriented, in RA, no apparent distress noted. Bed is locked in lowest position, side rails up, call light within reach.
--- NOTE | 2019-08-27 08:16 | NUR ---
DISCHARGE PLANNING PER CONVERSATION WITH DR AZEVEDO YESTERDAY, PLAN IS FOR HOME WITH IVF REFERRED TO [facility] (FOR IVF) t: [phone] f: [phone] AND [facility] (for nursing) T:[phone] F: [phone] Addendum: 08/27/19 at 1325 by BENNY RUBIO LVN LVN PICC LINE PLACEMENT PENDING
[2019-08-27] MEDS: Megace 400mg/10ml Susp ORAL SCH ×2 (08:38→18:34)
[2019-08-27] MEDS: Sennosides 8.6mg tab ORAL SCH (08:38)
[2019-08-27] MEDS: Metoprolol Tartrate 50mg tab ORAL SCH ×2 (08:39→20:35)
[2019-08-27] MEDS: Vitamin D 1000 IU Tab ORAL SCH ×2 (08:39→18:35)
[2019-08-27] MEDS: Docusate 100mg cap ORAL SCH ×4 (08:39→17:12)
[2019-08-27] MEDS: Heparin 5000 units/ml inj SUBQ SCH ×3 (08:41→20:37)
[2019-08-27] MEDS ORDERED: Calcitriol 0.25mcg Cap ORAL SCH (09:00)
[2019-08-27] MEDS: NIFEdipine 10mg cap ORAL SCH (09:01)
[2019-08-27] MEDS ORDERED: DEXTROSE 5% IV (11:12)
--- NOTE | 2019-08-27 11:35 | Nephrology Progress Note ---
Assessment/Plan Status: stable, not improved Assessment/Plan: A/P (1) Anorexia- (2) CKD (chronic kidney disease) stage 5, GFR less than 15 ml/min - Cr stable - AVF as out patient (3) Hypothyroidism (4) Anemia in chronic kidney disease- epogen (5) Dehydration- prn IVFs Subjective Allergies: Coded Allergies: ERYTHROMYCIN BASE (Unverified Allergy, Intermediate, 07/14/19) Per patient not allergic to medications or food Subjective Patient eting breakfast, in no overt distress Objective Last 24 Hour Vital Signs Date Time Temp Pulse Resp B/P (MAP) Pulse Ox O2 Delivery O2 Flow Rate FiO2 08/27/19 09:01 82 166/89 08/27/19 08:39 82 166/89 08/27/19 08:00 98.4 82 20 166/89 (114) 97 08/27/19 07:35 Room Air 08/27/19 06:15 131/73 08/27/19 04:18 162/76 08/27/19 04:00 98.0 86 19 162/76 (104) 100 08/27/19 00:00 97.5 85 18 128/66 (86) 95 08/26/19 22:06 148/71 08/26/19 21:00 Room Air 08/26/19 20:59 105 161/104 08/26/19 20:00 97.1 105 18 161/104 (123) 96 08/26/19 18:00 78 143/81 08/26/19 16:00 97.7 78 20 143/81 (101) 98 08/26/19 13:07 139/70 08/26/19 12:00 98.1 77 16 139/70 (93) 98 Intake and Output 08/26/19 08/27/19 18:59 06:59 Intake Total 60 ml 870 ml Balance 60 ml 870 ml Intake Oral 60 ml 120 ml IV Total 750 ml # Voids 2 3 # Bowel Movements 1 Height (Feet): 5 Height (Inches): 1.00 Weight (Pounds): 188 General Appearance: no apparent distress EENT: normal ENT inspection Neck: normal alignment, supple Cardiovascular: normal rate, regular rhythm Respiratory/Chest: lungs clear, normal breath sounds Abdomen: non tender, soft Edema: no edema noted Arm (L), no edema noted Arm (R), no edema noted Leg (L), no edema noted Leg (R), no edema noted Pedal (L), no edema noted Pedal (R), no edema noted Generalized Cody Hoyos MD Aug 27, 2019 11:35
--- NOTE | 2019-08-27 14:00 | NUR ---
RN attempted to remove 1300 & 1400 meds from the pyxis and no meds were showing on the pyxis. RN called pharmacy and found out that the pt was DC'd by error yesterday (08/26) and all of her meds were dropped off from the pyxis. Pharmacy was made aware.
[2019-08-27] MEDS ORDERED: Tums 500mg ORAL PRN (15:00)
--- NOTE | 2019-08-27 15:36 | NUR ---
NURSE NOTES: Received call from Radiology, PICC line will need to be held until tomorrow 08/28/19 as the department is working on a case in ICU and too many cases added on today. RN notified ANNE Villasenor and Dr. Hendricks that DC and PICC will be postponed. RN notified pt's daughter Sharron.
--- NOTE | 2019-08-27 17:23 | General Progress Note ---
Assessment/Plan Problem List: (1) UTI (urinary tract infection) ICD Codes: N39.0 - Urinary tract infection, site not specified SNOMED: 27255423 (2) Abdominal pain in female ICD Codes: R10.9 - Unspecified abdominal pain SNOMED: 67990106 (3) Acute renal failure (ARF) ICD Codes: N17.9 - Acute renal failure (ARF) SNOMED: 85154997 (4) Dehydration ICD Codes: E86.0 - Dehydration SNOMED: 04832626 Status: stable, not improved Assessment/Plan: ivf per renal encourage pos antiemetics/pain rx remeron and megace for appetite psych eval called picc line for ivf message left with dtr nadir Subjective ROS Limited/Unobtainable: No Constitutional: Reports: malaise, weakness HEENT: Reports: no symptoms Cardiovascular: Reports: no symptoms Respiratory: Reports: no symptoms Gastrointestinal/Abdominal: Reports: poor appetite, poor fluid intake Genitourinary: Reports: no symptoms Neurologic/Psychiatric: Reports: pre-existing deficit Endocrine: Reports: no symptoms Hematologic/Lymphatic: Reports: no symptoms Allergies: Coded Allergies: ERYTHROMYCIN BASE (Unverified Allergy, Intermediate, 07/14/19) Per patient not allergic to medications or food All Systems: reviewed and negative except above Subjective no change. refusing most meals. on ivf. on megace and remeron denies pain. no abd pain. no nausea. no appetite Objective Last 24 Hour Vital Signs Date Time Temp Pulse Resp B/P (MAP) Pulse Ox O2 Delivery O2 Flow Rate FiO2 08/27/19 16:00 98.5 88 16 144/76 (98) 98 08/27/19 14:44 140/83 08/27/19 14:40 84 140/83 (102) 08/27/19 12:00 98.2 76 16 139/69 (92) 97 08/27/19 09:01 82 166/89 08/27/19 08:39 82 166/89 08/27/19 08:00 98.4 82 20 166/89 (114) 97 08/27/19 07:35 Room Air 08/27/19 06:15 131/73 08/27/19 04:18 162/76 08/27/19 04:00 98.0 86 19 162/76 (104) 100 08/27/19 00:00 97.5 85 18 128/66 (86) 95 08/26/19 22:06 148/71 08/26/19 21:00 Room Air 08/26/19 20:59 105 161/104 08/26/19 20:00 97.1 105 18 161/104 (123) 96 08/26/19 18:00 78 143/81 Intake and Output 08/26/19 08/27/19 19:00 07:00 Intake Total 60 ml 870 ml Balance 60 ml 870 ml Intake Oral 60 ml 120 ml IV Total 750 ml # Voids 2 3 # Bowel Movements 1 Height (Feet): 5 Height (Inches): 1.00 Weight (Pounds): 188 Objective General Appearance: WD/WN, alert Neck: supple Cardiovascular: regular rhythm Respiratory/Chest: lungs clear Abdomen: normal bowel sounds, non tender, soft, no organomegaly Edema: no edema noted Arm (L), no edema noted Arm (R), no edema noted Leg (L), no edema noted Leg (R), no edema noted Pedal (L), no edema noted Pedal (R), no edema noted Generalized Chema Hendricks MD Aug 27, 2019 17:23
--- NOTE | 2019-08-27 17:45 | Progress Note ---
DATE: 08/27/2019 SUBJECTIVE: The patient is sitting in a chair. Cognition is impaired. Answers the questions appropriately. No behavior issues noted. MENTAL STATUS EXAMINATION: The patient is alert and oriented times self and place. Mood is depressed. Affect is constricted. Congruent with mood. Thought process is linear and goal oriented. Thought content, no suicidal or homicidal ideations. Memory is impaired. Insight and judgment is poor. ASSESSMENT: Major depressive disorder, rule out schizophrenia. PLAN: 1. We will continue the Remeron. 2. Provide the patient with reality orientation and supportive therapy. Discussed with the nurse. Henrietta Hartmann M.D. DR: SOFI JOB#: [id number] CC:
[2019-08-27] MEDS ORDERED: HydrALAZINE 25mg tab ORAL PRN (18:15)
[2019-08-27] MEDS: Dronabinol 2.5mg Cap ORAL SCH (18:35)
--- NOTE | 2019-08-27 19:19 | NUR ---
HAND-OFF: Report given to ENRIQUE Joy. Addendum: 08/27/19 at 1920 by Veronica Enriquez RN Report give to ENRIQUE Pastrana, not ENRIQUE Joy. Addendum: 08/27/19 at 1921 by Veronica nEriquez RN HAND-OFF: Report for Alta Senior, was given to ENRIQUE Mcconnell, not ENRIQUE Joy or ENRIQUE Pastrana.
--- NOTE | 2019-08-27 19:20 | NUR ---
NURSE NOTES: Received pt sitting in the chair. AOX4, verbally able to needs known. Breathing on room air. No acute distress noted. Currently no iv access. PICC line insertion scheduled for tomorrow. Fall precaution in place. Bed in low and locked position. Bed alarm will be on while in bed. Call light within reach. Pt will be monitored.
[2019-08-27] MEDS ORDERED: Dyna-Hex 2% Top Sol 2oz TOPIC SCH (20:00)
--- NOTE | 2019-08-27 20:00 | NUR ---
NURSE NOTES: Pt is sitting in the chair. AOX4, verbally able to needs known. Room air. No acute distress noted. Currently no iv access. PICC line insertion scheduled for tomorrow. Fall precaution in place. Call light within reach. Pt will be monitored. Trainee, Enedina PhamRN will be assisting in the care of this patient.
[2019-08-27] MEDS: Dyna-Hex 2% Top Sol 2oz TOPIC SCH (20:36)
[2019-08-27] MEDS ORDERED: Epoetin Alfa-EPBX (NON ESRD) 3000 units/ml vial SUBQ SCH (21:00)
[2019-08-27] MEDS ORDERED: Epoetin Alfa-EPBX (NON ESRD)4000 units/ml vial SUBQ SCH (21:00)
--- NOTE | 2019-08-27 22:25 | General Progress Note ---
Assessment/Plan Status: stable, not improved Assessment/Plan: Assessment - h/o anemia, s/p EGD/Colon/Capsule endo - functional decline - Advanced renal failure - Anorexia, secondary to above - recent abd pain, negative CT Recommendations - Push po - TUMS PRN - Remeron trial - calorie count - off of po FeSo4 - Daughter wants to hold off on PEG for now Subjective Allergies: Coded Allergies: ERYTHROMYCIN BASE (Unverified Allergy, Intermediate, 07/14/19) Per patient not allergic to medications or food Subjective Feels OK no abdominal complaints better PO today, per patient Objective Last 24 Hour Vital Signs Date Time Temp Pulse Resp B/P (MAP) Pulse Ox O2 Delivery O2 Flow Rate FiO2 08/27/19 20:36 163/82 08/27/19 20:35 70 163/82 08/27/19 20:00 98.4 82 20 166/89 (114) 97 08/27/19 18:35 88 144/76 08/27/19 16:00 98.5 88 16 144/76 (98) 98 08/27/19 14:44 140/83 08/27/19 14:40 84 140/83 (102) 08/27/19 12:00 98.2 76 16 139/69 (92) 97 08/27/19 09:01 82 166/89 08/27/19 08:39 82 166/89 08/27/19 08:00 98.4 82 20 166/89 (114) 97 08/27/19 07:35 Room Air 08/27/19 06:15 131/73 08/27/19 04:18 162/76 08/27/19 04:00 98.0 86 19 162/76 (104) 100 08/27/19 00:00 97.5 85 18 128/66 (86) 95 Intake and Output 08/26/19 08/27/19 19:00 07:00 Intake Total 60 ml 870 ml Balance 60 ml 870 ml Intake Oral 60 ml 120 ml IV Total 750 ml # Voids 2 3 # Bowel Movements 1 Height (Feet): 5 Height (Inches): 1.00 Weight (Pounds): 188 Objective WDWN AA woman NCAT supple CTA RRR abd soft, obese no edema Mina Rao MD Aug 27, 2019 22:25
--- NOTE | 2019-08-27 23:00 | Progress Note ---
DATE: 08/27/2019 CARDIOLOGY PROGRESS NOTE SUBJECTIVE: The patient continues to have poor oral intake. No nausea or vomiting, but appetite is poor. No abdominal pain. The patient remains on IV fluids. Poor peripheral access is noted. OBJECTIVE: VITAL SIGNS: Blood pressure 144/76, pulse 88, respirations 16, and afebrile. LUNGS: Clear with diminished breath sounds. Oropharynx clear. CARDIAC: Regular. Normal S1, S2. ABDOMEN: Soft. EXTREMITIES: There is no edema. IMAGING: Imaging study of the lower extremities revealed no DVT. IMPRESSION: 1. Failure to thrive. 2. Mild protein-calorie malnutrition. 3. Metabolic acidosis. 4. Acute on chronic renal failure. 5. Dehydration. 6. Hypernatremia. 7. Hypertensive heart disease. 8. Pericardial effusion of no hemodynamic significance at this time. PLAN: 1. Recheck laboratory studies. 2. May need central access for continued hydration. 3. Long-term consideration for feeding tube. 4. Continue titration of cardiovascular medications. 5. Clonidine discontinued as this may be affecting oral intake. Lance Rivas M.D. DR: GRACIELA JOB#: [id number] CC:
[2019-08-28] VITALS (7 sets, daily range): BP systolic 127–162; BP diastolic 61–82
--- NOTE | 2019-08-28 01:40 | NUR ---
NURSE NOTES: Pt is in bed, asleep. All evening meds administered as ordered. Assisted to bed from chair and all needs met. Bed in low and locked position. Call light within reach. Will continue to monitor.
--- NOTE | 2019-08-28 05:00 | NUR ---
NURSE NOTES: Scheduled PRN Clonidine 0.1mg given @ 04;55 due to SBP>162. (BP 162/82). Will recheck the BP in one hour.
[2019-08-28] MEDS ORDERED: Lidocaine 1% Plain 30 ml INJ ONE (06:00)
[2019-08-28] MEDS ORDERED: Heparin1,000 units/500ml Premix(Conc:2 units/ml) ONE (06:00)
[2019-08-28] MEDS: HydrALAZINE 50mg tab ORAL SCH ×3 (06:53→23:09)
--- NOTE | 2019-08-28 07:05 | NUR ---
HAND-OFF: Report given to ENRIQUE Bain.Endorsed to administer synthroid after consulting with pharmacy. Pt is sitting at the bedside chair eating.
[2019-08-28 07:10] LABS: HEMATOCRIT 29.5 % (37.0-47.0); HEMOGLOBIN 9.6 G/DL (12.0-16.0); MEAN CORPUSCULAR VOLUME 93 FL (80-99); PLATELET COUNT 199 K/UL (150-450); RED BLOOD COUNT 3.17 M/UL (4.20-5.40); RED CELL DISTRIBUTION WIDTH 13.8 % (11.6-14.8); WHITE BLOOD COUNT 3.4 K/UL (4.8-10.8)
--- NOTE | 2019-08-28 07:20 | NUR ---
NURSE NOTES: Received report from ENRIQUE Mcconnell. Pt is awake, alert, oriented, on RA, no pain, no apparent distress noted. Pt is up in chair eating breakfast. Bed is locked in lowest position, side rails up, call light within reach.
--- NOTE | 2019-08-28 07:32 | General Progress Note ---
Assessment/Plan Problem List: (1) UTI (urinary tract infection) ICD Codes: N39.0 - Urinary tract infection, site not specified SNOMED: 55360125 (2) Abdominal pain in female ICD Codes: R10.9 - Unspecified abdominal pain SNOMED: 51139625 (3) Acute renal failure (ARF) ICD Codes: N17.9 - Acute renal failure (ARF) SNOMED: 29431586 (4) Dehydration ICD Codes: E86.0 - Dehydration SNOMED: 81138150 Status: stable, not improved Assessment/Plan: ivf per renal encourage pos antiemetics/pain rx remeron and megace for appetite psych eval called picc line for ivf message left with dtr andir. await call back dc planning if po intake better Subjective ROS Limited/Unobtainable: No Constitutional: Reports: malaise, weakness HEENT: Reports: no symptoms Cardiovascular: Reports: no symptoms Respiratory: Reports: no symptoms Gastrointestinal/Abdominal: Reports: poor appetite, poor fluid intake Genitourinary: Reports: no symptoms Neurologic/Psychiatric: Reports: pre-existing deficit Endocrine: Reports: no symptoms Hematologic/Lymphatic: Reports: anemia Allergies: Coded Allergies: ERYTHROMYCIN BASE (Unverified Allergy, Intermediate, 07/14/19) Per patient not allergic to medications or food All Systems: reviewed and negative except above Subjective no change. at better yesterday. 25% of lunch. 50% of dinner. on multiple appetite stimulants. Objective Last 24 Hour Vital Signs Date Time Temp Pulse Resp B/P (MAP) Pulse Ox O2 Delivery O2 Flow Rate FiO2 08/28/19 06:53 127/77 08/28/19 06:25 98.2 88 18 127/77 (94) 96 08/28/19 04:55 162/81 08/28/19 04:00 98.0 86 18 162/81 (108) 95 08/28/19 00:00 98.1 80 20 131/76 (94) 94 08/27/19 23:32 135/69 08/27/19 22:42 98.2 80 20 135/69 (91) 95 08/27/19 21:00 Room Air 08/27/19 20:36 163/82 08/27/19 20:35 70 163/82 08/27/19 20:00 98.4 82 20 166/89 (114) 97 08/27/19 18:35 88 144/76 08/27/19 16:00 98.5 88 16 144/76 (98) 98 08/27/19 14:44 140/83 08/27/19 14:40 84 140/83 (102) 08/27/19 12:00 98.2 76 16 139/69 (92) 97 08/27/19 09:01 82 166/89 08/27/19 08:39 82 166/89 08/27/19 08:00 98.4 82 20 166/89 (114) 97 08/27/19 07:35 Room Air Intake and Output 08/27/19 08/28/19 18:59 06:59 # Voids 4 2 # Bowel Movements 3 1 Laboratory Tests 08/28/19 05:30: White Blood Count 3.4L, Red Blood Count 3.17L, Hemoglobin 9.6L, Hematocrit 29.5L , Mean Corpuscular Volume 93, Mean Corpuscular Hemoglobin 30.4, Mean Corpuscular Hemoglobin Concent 32.6, Red Cell Distribution Width 13.8, Platelet Count 199, Mean Platelet Volume 7.2, Neutrophils (%) (Auto) , Lymphocytes (%) ( Auto) , Monocytes (%) (Auto) , Eosinophils (%) (Auto) , Basophils (%) (Auto) , Neutrophils % (Manual) [Pending], Lymphocytes % (Manual) [Pending], Platelet Estimate [Pending], Platelet Morphology [Pending], Sodium Level [Pending], Potassium Level [Pending], Chloride Level [Pending], Carbon Dioxide Level [ Pending], Blood Urea Nitrogen [Pending], Creatinine [Pending], Estimat Glomerular Filtration Rate [Pending], Glucose Level [Pending], Calcium Level [ Pending], Thyroid Stimulating Hormone (TSH) [Pending], Free Thyroxine [Pending] , Free Triiodothyronine [Pending] Height (Feet): 5 Height (Inches): 1.00 Weight (Pounds): 188 Objective General Appearance: WD/WN, alert Neck: supple Cardiovascular: regular rhythm Respiratory/Chest: lungs clear Abdomen: normal bowel sounds, non tender, soft, no organomegaly Edema: no edema noted Arm (L), no edema noted Arm (R), no edema noted Leg (L), no edema noted Leg (R), no edema noted Pedal (L), no edema noted Pedal (R), no edema noted Generalized Chema Hendricks MD Aug 28, 2019 07:32
[2019-08-28 07:42] LABS: ANION GAP 13 mmol/L (5-15); BLOOD UREA NITROGEN 40 mg/dL (7-18); CALCIUM 9.8 MG/DL (8.5-10.1); CARBON DIOXIDE 18 MMOL/L (21-32); CHLORIDE 111 MMOL/L (98-107); CREATININE 3.2 MG/DL (0.55-1.30); POTASSIUM 4.1 MMOL/L (3.5-5.1); SODIUM 142 MMOL/L (136-145)
--- NOTE | 2019-08-28 07:42 | NUR ---
NURSE NOTES: RN called Radiology and confirmed that pt is getting PICC line placement done after outpatient procedure.
[2019-08-28] MEDS: Docusate 100mg cap ORAL SCH ×3 (09:00→17:45)
[2019-08-28] MEDS: Sennosides 8.6mg tab ORAL SCH (09:00)
[2019-08-28] MEDS: Heparin 5000 units/ml inj SUBQ SCH ×2 (09:00→21:32)
[2019-08-28] MEDS: Calcitriol 0.25mcg Cap ORAL SCH (09:06)
[2019-08-28] MEDS: Megace 400mg/10ml Susp ORAL SCH ×2 (09:06→17:45)
[2019-08-28] MEDS: Vitamin D 1000 IU Tab ORAL SCH ×2 (09:06→17:46)
[2019-08-28] MEDS: Dronabinol 2.5mg Cap ORAL SCH (09:07)
[2019-08-28] MEDS: Metoprolol Tartrate 50mg tab ORAL SCH ×2 (09:08→21:31)
--- NOTE | 2019-08-28 10:33 | NUR ---
Pt was picked up by Radiology department personnel for PICC line placement at 1033.
--- NOTE | 2019-08-28 11:35 | NUR ---
NURSE NOTES: Pt returned from radiology dept after PICC line placement at 1135. RN obtained VS, on RA, no complaints of pain, pt tolerating well.
--- NOTE | 2019-08-28 11:40 | NUR ---
RADIOLOGY NOTE: LEFT UPPER EXTREMITY PICC PLACED.
[2019-08-28] MEDS: Levothyroxine 125mcg tab ORAL SCH (11:49)
--- NOTE | 2019-08-28 11:53 | Brief Operative Note ---
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
--- NOTE | 2019-08-28 11:53 | Pre-Procedure Note/Attestation ---
Pre-Procedure Note/Attestation Complete Prior to Procedure Planned Procedure: not applicable Procedure Narrative: PICC Indications for Procedure Pre-Operative Diagnosis: needs remote computer terminal operator IV access Attestation I attest that I discussed the nature of the procedure; its benefits; risks and complications; and alternatives (and the risks and benefits of such alternatives ), prior to the procedure, with the patient (or the patient's legal corporate sales representative). I attest that, if there was a reasonable possibility of needing a blood transfusion, the patient (or the patient's legal corporate sales representative) was given the [facility] standardized written summary, pursuant to the [place] Jakub Blood Safety Act ([place] Health and Safety Code # 1645, as amended). I attest that I re-evaluated the patient just prior to the surgery and that there has been no change in the patient's H&P, except as documented below: Garry Barillas MD Aug 28, 2019 11:53
--- NOTE | 2019-08-28 11:55 | General Progress Note ---
Assessment/Plan Status: stable, not improved Assessment/Plan: Assessment - h/o anemia, s/p EGD/Colon/Capsule endo - functional decline - Advanced renal failure - Anorexia, secondary to above - recent abd pain, negative CT Recommendations - Push po - TUMS PRN - Remeron trial - calorie count - off of po FeSo4 - Daughter wants to hold off on PEG for now Subjective Allergies: Coded Allergies: ERYTHROMYCIN BASE (Unverified Allergy, Intermediate, 07/14/19) Per patient not allergic to medications or food Subjective Feels OK no abdominal complaints just back from PICC line Objective Last 24 Hour Vital Signs Date Time Temp Pulse Resp B/P (MAP) Pulse Ox O2 Delivery O2 Flow Rate FiO2 08/28/19 09:08 95 144/61 08/28/19 09:07 95 144/61 08/28/19 08:00 98.8 95 19 144/61 (88) 97 08/28/19 07:50 Room Air 08/28/19 06:53 127/77 08/28/19 06:25 98.2 88 18 127/77 (94) 96 08/28/19 04:55 162/81 08/28/19 04:00 98.0 86 18 162/81 (108) 95 08/28/19 00:00 98.1 80 20 131/76 (94) 94 08/27/19 23:32 135/69 08/27/19 22:42 98.2 80 20 135/69 (91) 95 08/27/19 21:00 Room Air 08/27/19 20:36 163/82 08/27/19 20:35 70 163/82 08/27/19 20:00 98.4 82 20 166/89 (114) 97 08/27/19 18:35 88 144/76 08/27/19 16:00 98.5 88 16 144/76 (98) 98 08/27/19 14:44 140/83 08/27/19 14:40 84 140/83 (102) 08/27/19 12:00 98.2 76 16 139/69 (92) 97 Intake and Output 08/27/19 08/28/19 19:00 07:00 # Voids 4 2 # Bowel Movements 3 1 Laboratory Tests 08/28/19 05:30: White Blood Count 3.4L, Red Blood Count 3.17L, Hemoglobin 9.6L, Hematocrit 29.5L , Mean Corpuscular Volume 93, Mean Corpuscular Hemoglobin 30.4, Mean Corpuscular Hemoglobin Concent 32.6, Red Cell Distribution Width 13.8, Platelet Count 199, Mean Platelet Volume 7.2, Neutrophils (%) (Auto) , Lymphocytes (%) ( Auto) , Monocytes (%) (Auto) , Eosinophils (%) (Auto) , Basophils (%) (Auto) , Differential Total Cells Counted 100, Neutrophils % (Manual) 60, Lymphocytes % ( Manual) 28, Monocytes % (Manual) 9, Eosinophils % (Manual) 2, Basophils % ( Manual) 1, Band Neutrophils 0, Platelet Estimate Adequate, Platelet Morphology Normal, Hypochromasia 2+, Anisocytosis 1+, Sodium Level 142, Potassium Level 4.1 , Chloride Level 111H, Carbon Dioxide Level 18L, Anion Gap 13, Blood Urea Nitrogen 40H, Creatinine 3.2H, Estimat Glomerular Filtration Rate , Glucose Level 82, Calcium Level 9.8, Thyroid Stimulating Hormone (TSH) 0.080L, Free Thyroxine 1.63H, Free Triiodothyronine 2.0L Height (Feet): 5 Height (Inches): 1.00 Weight (Pounds): 188 Objective WDWN AA woman NCAT supple CTA RRR abd soft, obese no edema Mina Rao MD Aug 28, 2019 11:55
--- NOTE | 2019-08-28 12:50 | Diagnostic Imaging Report ---
Indications: Needs long-term IV access Technique: Ultrasound confirms patent compressible left brachial vein. Total sterile technique, including sterile probe cover and sterile gel, hat, mask, sterile gown, large sterile drape, and preparation with 2% chlorhexidine utilized. Local anesthesia with 1% lidocaine. Under real-time ultrasound guidance, puncture brachial vein using 21-gauge needle, documented and archived, passage 0.018 guidewire under direct fluoroscopy, which was used to determine appropriate catheter length, exchange for 4 Romanian peel-away sheath. 4 Romanian Bard dual-lumen power PICC cut to 47 cm. It was inserted through the peel-away sheath. Peel-away sheath and guidewire removed. Catheter fixed to the skin. Both catheter ports aspirated and flushed. Patient tolerated procedure well, without immediate complication. Digital radiograph documents satisfactory catheter tip position, at the cavoatrial junction. Total fluoroscopy time 14.5 seconds. Total dose area product [id number] mGym2 Total number of images: 1 Impression: Successful placement of left arm PICC under sonographic and fluoroscopic guidance, as described above.
--- NOTE | 2019-08-28 13:08 | Diagnostic Imaging Report ---
APPROVED REPORT CPT Code: 61677 Present Symptoms Comments: R/O DVT No signs of DVT seen Bilateral CFV, SFV(Prox, Mid, Dist), Pop V, CAlf veins. Bilateral veins are patent
--- NOTE | 2019-08-28 13:57 | Nephrology Progress Note ---
Assessment/Plan Problem List: (1) Anorexia (2) CKD (chronic kidney disease) stage 5, GFR less than 15 ml/min (3) Hypothyroidism (4) Anemia in chronic kidney disease (5) Dehydration Plan baseline creatinine 2.5-3 discontinue hydration, treat gastritis,, epogen, consider psych eval as withdrawn and cognitive deficits, mobilize out of bed as little mental stimulation in bed, she should have elective av fistula in next several months, c/o heartburn, continue gi regimen lab worse , lab seems baseline Subjective Constitutional: Reports: weakness HEENT: Reports: no symptoms Genitourinary: Reports: incontinence Neurologic/Psychiatric: Reports: pre-existing deficit Objective Objective Last 24 Hour Vital Signs Date Time Temp Pulse Resp B/P (MAP) Pulse Ox O2 Delivery O2 Flow Rate FiO2 08/28/19 13:03 138/66 08/28/19 12:00 97.9 87 16 138/66 (90) 98 08/28/19 09:08 95 144/61 08/28/19 09:07 95 144/61 08/28/19 08:00 98.8 95 19 144/61 (88) 97 08/28/19 07:50 Room Air 08/28/19 06:53 127/77 08/28/19 06:25 98.2 88 18 127/77 (94) 96 08/28/19 04:55 162/81 08/28/19 04:00 98.0 86 18 162/81 (108) 95 08/28/19 00:00 98.1 80 20 131/76 (94) 94 08/27/19 23:32 135/69 08/27/19 22:42 98.2 80 20 135/69 (91) 95 08/27/19 21:00 Room Air 08/27/19 20:36 163/82 08/27/19 20:35 70 163/82 08/27/19 20:00 98.4 82 20 166/89 (114) 97 08/27/19 18:35 88 144/76 08/27/19 16:00 98.5 88 16 144/76 (98) 98 08/27/19 14:44 140/83 08/27/19 14:40 84 140/83 (102) Intake and Output 08/27/19 08/28/19 19:00 07:00 # Voids 4 2 # Bowel Movements 3 1 Laboratory Tests 08/28/19 05:30: White Blood Count 3.4L, Red Blood Count 3.17L, Hemoglobin 9.6L, Hematocrit 29.5L , Mean Corpuscular Volume 93, Mean Corpuscular Hemoglobin 30.4, Mean Corpuscular Hemoglobin Concent 32.6, Red Cell Distribution Width 13.8, Platelet Count 199, Mean Platelet Volume 7.2, Neutrophils (%) (Auto) , Lymphocytes (%) ( Auto) , Monocytes (%) (Auto) , Eosinophils (%) (Auto) , Basophils (%) (Auto) , Differential Total Cells Counted 100, Neutrophils % (Manual) 60, Lymphocytes % ( Manual) 28, Monocytes % (Manual) 9, Eosinophils % (Manual) 2, Basophils % ( Manual) 1, Band Neutrophils 0, Platelet Estimate Adequate, Platelet Morphology Normal, Hypochromasia 2+, Anisocytosis 1+, Sodium Level 142, Potassium Level 4.1 , Chloride Level 111H, Carbon Dioxide Level 18L, Anion Gap 13, Blood Urea Nitrogen 40H, Creatinine 3.2H, Estimat Glomerular Filtration Rate , Glucose Level 82, Calcium Level 9.8, Thyroid Stimulating Hormone (TSH) 0.080L, Free Thyroxine 1.63H, Free Triiodothyronine 2.0L Height (Feet): 5 Height (Inches): 1.00 Weight (Pounds): 188 General Appearance: no apparent distress EENT: normal ENT inspection Neck: normal alignment Cardiovascular: normal rate, regular rhythm Respiratory/Chest: lungs clear Abdomen: soft Extremities: other - no edema Neurologic: motor weakness Jose Lemus MD Aug 28, 2019 13:57
--- NOTE | 2019-08-28 19:25 | NUR ---
HAND-OFF: Report given to ENRIQUE Mcconnell.
--- NOTE | 2019-08-28 19:28 | NUR ---
NURSE NOTES: Received pt sitting in the chair. AOX4, verbally able to needs known. Breathing on room air. No acute distress noted. PICC line inserted on left upper arm is patent. Fall precaution in place. Bed in low and locked position. Bed alarm will be on while in bed. Call light within reach. Pt will be monitored.
--- NOTE | 2019-08-28 21:00 | NUR ---
NURSE NOTES: Pt is sitting in the chair. AOX4, verbally able to make needs known. Breathing on room air. No acute distress noted. PICC line inserted during last shift on left upper arm is patent. Fall precaution in place. Bed in low and locked position. Bed alarm will be on while in bed. Call light within reach. Pt will be monitored. Trainee, Enedina PhamRN will be assisting with the care of this patient.
[2019-08-28] MEDS: Dyna-Hex 2% Top Sol 2oz TOPIC SCH (21:30)
[2019-08-29] VITALS: BP_SYST 123; BP_SYST 166; BP_DIAS 63; BP_DIAS 74
--- NOTE | 2019-08-29 01:30 | NUR ---
NURSE NOTES: Pt is in bed, asleep. PICC line on left upper arm patent and running 1/2NS@125cc/hr. All evening meds included PRN clonidine 0.1mg administered as ordered for SBP >150 (bp-152/71). Assisted to bed from chair and all needs met. Bed in low and locked position. Call light within reach. Will continue to monitor.
--- NOTE | 2019-08-29 03:45 | Progress Note ---
DATE: 08/28/2019 SUBJECTIVE: The patient was sitting in a chair, has psychomotor retardation, withdrawn, isolative, depressed mood, anhedonia, worthlessness, able to answer the questions, and poor memory. MENTAL STATUS EXAMINATION: The patient is alert and oriented times self, place, and situation. Mood is depressed. Affect is blunted. Congruent mood. Thought process is linear and goal oriented. Thought content, no suicidal or homicidal ideations. Memory is impaired. Insight and judgment are fair. ASSESSMENT: Major depressive disorder with failure to thrive. PLAN: 1. We will continue the Remeron. 2. Discontinue the Restoril and start the patient on Zyprexa 2.5 mg to stimulate appetite. Henrietta Hartmann M.D. DR: RAHAT JOB#: [id number] CC:
--- NOTE | 2019-08-29 03:45 | Progress Note ---
DATE: 08/28/2019 CARDIOLOGY PROGRESS NOTE SUBJECTIVE: The patient is status post successful placement of a PICC line for adequate intravenous fluid hydration due to poor peripheral access. Her oral intake remains poor. She has no chest pain. No shortness of breath. OBJECTIVE: VITAL SIGNS: Blood pressure 138/66, pulse 87, and respirations 16. LUNGS: Clear. CARDIAC: Regular. Normal S1, S2 with no rub. ABDOMEN: Soft. EXTREMITIES: Trace dependent edema. LABORATORY DATA: White count is 3.4 and hemoglobin 9.6. Sodium 142, potassium 4.1, bicarb 18, BUN 40, and creatinine 3.2. TSH 0.08. T3 low at 2. T4 is 1.6. IMPRESSION: 1. Hypothyroidism. Consider Cytomel. 2. Metabolic acidosis. 3. Acute on chronic renal failure. 4. Hypovolemia and dehydration. 5. Hypertensive heart disease. 6. Small pericardial effusion. 7. Poor oral intake. 8. Poor peripheral IV access. 9. Hypertensive heart disease. PLAN: 1. Continue current management. 2. Needs additional IV hydration. 3. Consider Cytomel. 4. May need long-term IV fluids at home. 5. Maintain current cardiovascular regimen at this time. Lance Rivas M.D. DR: GRACIELA JOB#: [id number] CC:
[2019-08-29 04:00] VITALS: BP_SYST 137; BP_SYST 140; BP_DIAS 76; BP_DIAS 79
[2019-08-29] MEDS: Levothyroxine 125mcg tab ORAL SCH (05:51)
[2019-08-29] MEDS: HydrALAZINE 50mg tab ORAL SCH ×2 (05:51→14:53)
--- NOTE | 2019-08-29 07:15 | NUR ---
HAND-OFF: Report given to ENRIQUE Feliz.Pt is in bed, asleep. No acute distress noted. Informed Trini to have pt out of bed in a chair as much as possible per Dr. Lemus's order. Also informed that pt is Fall Risk.
--- NOTE | 2019-08-29 07:30 | NUR ---
NURSE NOTES: Received report from ENRIQUE Pardo and ENRIQUE Mcconnell. Patient A&Ox4. On room air, no signs of distress or labored breathing. PICC line intact, patent, and infusing fluids. Patient currently in bed. Will have patient up in chair per MD order. Bed in lowest position with call light in reach.
[2019-08-29 08:00] VITALS: BP 147/78
--- NOTE | 2019-08-29 08:04 | Nephrology Progress Note ---
Assessment/Plan Problem List: (1) Anorexia (2) CKD (chronic kidney disease) stage 5, GFR less than 15 ml/min (3) Hypothyroidism (4) Anemia in chronic kidney disease (5) Dehydration Plan baseline creatinine 2.5-3 discontinue hydration, treat gastritis,, epogen, consider psych eval as withdrawn and cognitive deficits, mobilize out of bed as little mental stimulation in bed, she should have elective av fistula in next several months, c/o heartburn, continue gi regimen , lab seems baseline discussed with Subjective Constitutional: Reports: weakness HEENT: Reports: no symptoms Genitourinary: Reports: incontinence Neurologic/Psychiatric: Reports: pre-existing deficit Objective Objective Last 24 Hour Vital Signs Date Time Temp Pulse Resp B/P (MAP) Pulse Ox O2 Delivery O2 Flow Rate FiO2 08/29/19 05:51 140/79 08/29/19 04:00 99.2 92 18 140/79 (99) 96 08/29/19 00:00 99.0 90 18 123/63 (83) 97 08/28/19 23:09 145/89 08/28/19 21:31 83 152/71 08/28/19 21:31 152/71 08/28/19 21:00 Room Air 08/28/19 20:00 99.8 83 20 152/71 (98) 94 08/28/19 17:46 79 147/82 08/28/19 16:00 98.7 79 18 147/82 (103) 97 08/28/19 13:03 138/66 08/28/19 12:00 97.9 87 16 138/66 (90) 98 08/28/19 09:08 95 144/61 08/28/19 09:07 95 144/61 Intake and Output 08/28/19 08/29/19 18:59 06:59 Intake Total 1485 ml 1360 ml Balance 1485 ml 1360 ml Intake Oral 860 ml 360 ml IV Total 625 ml 1000 ml # Voids 6 3 # Bowel Movements 1 Height (Feet): 5 Height (Inches): 1.00 Weight (Pounds): 188 General Appearance: no apparent distress, alert, morbidly obese EENT: normal ENT inspection Neck: normal alignment Cardiovascular: normal rate Respiratory/Chest: lungs clear Abdomen: soft Extremities: other - No edema Neurologic: motor weakness Jose Lemus MD Aug 29, 2019 08:04
[2019-08-29] MEDS: Sennosides 8.6mg tab ORAL SCH (09:00)
[2019-08-29] MEDS: Heparin 5000 units/ml inj SUBQ SCH (09:00)
[2019-08-29] MEDS: Vitamin D 1000 IU Tab ORAL SCH (09:29)
[2019-08-29] MEDS: Calcitriol 0.25mcg Cap ORAL SCH (09:29)
[2019-08-29] MEDS: Dronabinol 2.5mg Cap ORAL SCH (09:29)
[2019-08-29] MEDS: Megace 400mg/10ml Susp ORAL SCH (09:30)
[2019-08-29] MEDS: Docusate 100mg cap ORAL SCH ×2 (09:30→13:00)
[2019-08-29] MEDS: Metoprolol Tartrate 50mg tab ORAL SCH (09:30)
[2019-08-29 12:00] VITALS: BP 142/79
[2019-08-29 13:02] LABS: BASOPHILS % (AUTO) 0.8 % (0.0-2.0); EOSINOPHILS % (AUTO) 2.2 % (0.0-3.0); HEMOGLOBIN 10.9 G/DL (12.0-16.0); LYMPHOCYTES % (AUTO) 19.1 % (20.0-45.0); MEAN CORPUSCULAR VOLUME 94 FL (80-99); MONOCYTES % (AUTO) 5.7 % (1.0-10.0); NEUTROPHILS % (AUTO) 72.2 % (45.0-75.0); PLATELET COUNT 193 K/UL (150-450); RED BLOOD COUNT 3.62 M/UL (4.20-5.40); RED CELL DISTRIBUTION WIDTH 14.1 % (11.6-14.8); WHITE BLOOD COUNT 3.8 K/UL (4.8-10.8)
--- NOTE | 2019-08-29 13:26 | NUR ---
CASE MANAGEMENT:REVIEW 08/29/19 SI: ACUTE RENAL FAILURE. DEHYDRATION. FTT 97.5 92 19 147/78 97% ON RA IS:ZYPREXA PO QHS SYNTHROID PO QD PROTONIX PO QAM CALCITROL PO QD REMERON PO QHS LOPRESSOR PO Q12 IVF@125/HR MEGACE PO BID : MED/SURG STATUS 4 EAST DCP: HOME WITH IVF PLAN: PICC PLACED REFERRED TO [facility] IVF HAS BEEN DELIVERED TO HOME ALREADY VAGINAL BLEEDING ~ CBC AND PELVIC US ~ HOLD DISCHARGE UNTIL RESULTED
--- NOTE | 2019-08-29 14:21 | NUR ---
RD ASSESSMENT & RECOMMENDATIONS SEE CARE ACTIVITY FOR COMPLETE ASSESSMENT DAILY ESTIMATED NEEDS: Needs based on cardiac, renal 58.75kg abw 25-30 kcals/kg 8481-7298 total kcals 0.8-1.0 g protein/kg 47-59 g total protein 25-30 mL/kg 4246-1473 total fluid mLs NUTRITION DIAGNOSIS: 1) Altered nutrition related lab values r/t renal dysfunction as evidenced by elev creat (4.1 -> 3.2 trend down) CURRENT DIET:Cardiac, SOFT EASY CHEW PO DIET RECOMMENDATIONS: Liberalized LOW NA w/ continued poor PO/ texture as tolerated ADDITIONAL RECOMMENDATIONS: 1) Calibrated bedscale wt for accurate CBW (rec daily wt d/t poor intake) 2) Continue NEPRO TID w/ meals (pt initially refused, now intake of 100%) 3) Monitor renal fxn + lytes -> renal fxn improving at this time 4) Monitor PO intake closely -> improving at this time 5) NEPHROVITE x 1 as supplement 6) Rec liberalized diet for improved PO acceptance (cardiac -> low Na)
--- NOTE | 2019-08-29 15:19 | NUR ---
SPEECH PATHOLOGY: S: PATIENT CLEARED FOR ST INTERVENTION BY ENRIQUE CHAMBERS O: DYSPHAGIA FOLLOW UP A: PATIENT TOLERATING HER CURRENT DIET WITH NO OVERT S/S OF ASPIRATION. SHE IS ABLE TO INDEPENDENTLY SELF FEED WITH LIMITED P.O. TRIALS OF SOFT SOLID/THIN AND PUREE: PATIENT PRESENTS WITH MIN/MILD OROPHARYNGEAL DYSPHAGIA P: CONTINUE PER PLAN/CURRENT DIET
--- NOTE | 2019-08-29 15:32 | Diagnostic Imaging Report ---
Indication:Lower abdominal and pelvic pain. Vaginal bleeding 73-year-old female. Status post hysterectomy in 1963. Technique: Grayscale and duplex Doppler imaging of the pelvis performed utilizing a transabdominal and endovaginal scan. Comparison: None Findings: Surgical absence of the uterus is noted. The area of the cervix is unremarkable. There is no mass or free fluid identified. Neither ovary is identified. IMPRESSION: Negative ultrasound evaluation.
[2019-08-29 16:00] VITALS: BP 132/76
--- NOTE | 2019-08-29 17:22 | NUR ---
NURSE NOTES: Patient D/C'd home via [facility] unit [id number]. Report given to Milagros Cullen and Celso Blackwell. Family aware patient is coming home. ID band removed. PICC line saline locked. Charge nurse aware.
[2019-08-29] MEDS ORDERED: 1/2 NS 1000ml IV ONE (17:24)
--- NOTE | 2019-08-29 19:29 | General Progress Note ---
Assessment/Plan Status: stable, not improved Assessment/Plan: Assessment - h/o anemia, s/p EGD/Colon/Capsule endo - functional decline - Advanced renal failure - Anorexia, secondary to above - recent abd pain, negative CT Recommendations - Push po - TUMS PRN - Remeron trial - calorie count - off of po FeSo4 - Daughter wants to hold off on PEG for now Subjective Allergies: Coded Allergies: ERYTHROMYCIN BASE (Unverified Allergy, Intermediate, 07/14/19) Per patient not allergic to medications or food Subjective Feels OK no abdominal complaints for d/c today Objective Last 24 Hour Vital Signs Date Time Temp Pulse Resp B/P (MAP) Pulse Ox O2 Delivery O2 Flow Rate FiO2 08/29/19 16:00 98.6 92 19 132/76 (94) 98 08/29/19 14:53 142/79 08/29/19 12:00 98.0 79 17 142/79 (100) 97 08/29/19 09:30 92 147/78 08/29/19 09:29 92 147/78 08/29/19 09:00 Room Air 08/29/19 08:00 97.5 92 19 147/78 (101) 97 08/29/19 05:51 140/79 08/29/19 04:00 99.2 92 18 140/79 (99) 96 08/29/19 00:00 99.0 90 18 123/63 (83) 97 08/28/19 23:09 145/89 08/28/19 21:31 83 152/71 08/28/19 21:31 152/71 08/28/19 21:00 Room Air 08/28/19 20:00 99.8 83 20 152/71 (98) 94 Intake and Output 08/28/19 08/29/19 19:00 07:00 Intake Total 1485 ml 1360 ml Balance 1485 ml 1360 ml Intake Oral 860 ml 360 ml IV Total 625 ml 1000 ml # Voids 6 3 # Bowel Movements 1 Laboratory Tests 08/29/19 12:25: White Blood Count 3.8L, Red Blood Count 3.62L, Hemoglobin 10.9L, Hematocrit 34.0L, Mean Corpuscular Volume 94, Mean Corpuscular Hemoglobin 30.0, Mean Corpuscular Hemoglobin Concent 32.0, Red Cell Distribution Width 14.1, Platelet Count 193, Mean Platelet Volume 6.8, Neutrophils (%) (Auto) 72.2, Lymphocytes (% ) (Auto) 19.1L, Monocytes (%) (Auto) 5.7, Eosinophils (%) (Auto) 2.2, Basophils (%) (Auto) 0.8 Height (Feet): 5 Height (Inches): 1.00 Weight (Pounds): 188 Objective WDWN AA woman NCAT supple CTA RRR abd soft, obese no edema Mina Rao MD Aug 29, 2019 19:29
[2019-08-29] MEDS ORDERED: OLANZapine 2.5mg tab ORAL SCH (21:00)
--- NOTE | 2019-08-30 05:45 | Progress Note ---
DATE: 08/15/2019 SUBJECTIVE: The patient is in bed. She is doing well. She did not know the date. She knows the year. Compliant with medication. Depressed and withdrawn. MENTAL STATUS EXAMINATION: The patient is alert, oriented time, self, place, did not know the date. Mood is depressed. Affect is constricted. Congruent with mood. Thought process, linear and goal oriented. Thought content, no suicidal or homicidal ideation. Cognition is impaired. Insight is impaired. ASSESSMENT: 1. Major depressive disorder. 2. Failure to thrive. 3. Dementia. PLAN: 1. We will continue current medications. 2. Provide the patient with reality orientation and supportive therapy. Henrietta Hartmann M.D. DR: Leda JOB#: [id number] CC:
--- NOTE | 2019-08-31 03:15 | Progress Note ---
DATE: 08/29/2019 CARDIOLOGY PROGRESS NOTE Late entry for 08/29/2019. SUBJECTIVE: The patient's renal function has returned to baseline. IV fluids have been discontinued. She has no chest pain or shortness of breath. She continues to have poor appetite and poor oral intake. She is on a GI regimen now to help stimulate her appetite. OBJECTIVE: VITAL SIGNS: Blood pressure 140/79, pulse 92, respirations 18, and temperature 99.2. LUNGS: Diminished breath sounds. HEART: Regular rhythm and rate. Normal S1, S2 with a fourth heart sound. ABDOMEN: Soft, nontender. EXTREMITIES: Trace dependent nonpitting edema. IMPRESSION: Stable, near baseline cardiorenal parameters. PLAN: 1. Observe as outpatient with close followup. 2. May ultimately need G-tube and dialysis. 3. She will also need close monitoring of pericardial effusion, which may progress if renal function worsens. Lance Rivas M.D. DR: BELEM JOB#: [id number] CC:
--- NOTE | 2019-08-31 16:00 | Discharge Summary ---
Discharge Summary Discharge Summary _ DATE OF ADMISSION: 08/15/2019 DATE OF DISCHARGE: 08/29/2019 DISCHARGED BY: Dr. Chema Hendricks CONSULTANTS: [] BRIEF HOSPITAL COURSE: Patient is a 73-year-old female, with history of hypertension, stroke and DVT. She has history of pericardial effusion and dementia. She was admitted with thrive, weakness, poor p.o. intake and dehydration. According to patient's family, she has been eating for the past 3 days. She has mid epigastric abdominal pain. There were no reports of diarrhea or vomiting. No dysuria. No recent changes in any of her medications. Patient was admitted with complaints of anorexia, acute on chronic renal failure , hypertension, and CHF. She was given cautious IV hydration. Antihypertensives were titrated. She has history of chronic kidney disease. Kidney function was monitored. She had metabolic acidosis. She was given p.o. bicarb. She is patient left AMA before being seen. Was given Epogen for anemia. She was started empirically on IV antibiotics for possible UTI. Oral intake was improving. Echocardiogram showed a very small circumferential pericardial effusion ejection fraction normal with no significant pulmonary hypertension valvular disease. GI was consulted. CT scan of the abdomen was unrevealing. Patient had already undergone endoscopy, colonoscopy and capsule endoscopy. Per GI, patient does not need to be reevaluated.. Remeron was added to her regimen. Kidney function was improving with IV fluids. Patient is not does not want PEG for now. Wants to hold off on PEG and push po. Patient was planned for discharge, however discharge was canceled due to worsening metabolic parameters. Patient had worsening renal failure due to poor oral intake. He patient was placed back on hypotonic IV fluids. Patient was placed on Remeron and Megace. Psychiatric evaluation was done. Patient has low appetite and has been losing weight. She presented with depressed mood, anhedonia, worthlessness, hopelessness and decreased energy. She was diagnosed with major depressive disorder. Remeron was increased to to 15 mg nightly. It would take days for Remeron to be effective. A PICC line was inserted. Patient may need long-term IV fluids at home. Per renal, she should have elective AV fistula next several months. Patient may ultimately need G-tube and dialysis. Patient was cleared for discharge with close outpatient follow-up. Also needs close monitoring of pericardial effusion , which may progress if renal function worsens. There was reported vaginal bleeding pelvic ultrasound showed surgically absent uterus. Unremarkable cervix. CBC stable. Patient was cleared for discharge. FINAL DIAGNOSES: Acute on chronic renal failure Hypertensive heart disease Small pericardial effusion Mild protein calorie malnutrition Hyponatremia Metabolic acidosis Major depressive disorder Dementia Failure to thrive with poor oral intake Functional decline Anorexia CKD stage V Hypothyroidism Anemia of chronic disease Dehydration UTI DISPOSITION: Patient was discharged home with home health DISCHARGE MEDICATIONS: Refer to Discharge Medication List. DISCHARGE INSTRUCTIONS: Follow-up in a week. I have been assigned to complete a discharge summary on this account, I was not involved with the patient's management.--LUIS Francois Jacqueline Robles NP Aug 31, 2019 16:00
== END 2019-08-29 17:25 | disposition home health service (06) | DRG 682 ==
LOC: 4E 11:21 → UNDOADMIN 11:21 → 4E 08-16 → UNDOADMIN 08-25 11:21 → UNDODISIN 08-26 15:09
PROC: 02HV33Z Insertion of Infusion Device into Superior Vena Cava, Percutaneous Approach (ICD-10-PCS; principal; 2019-08-28)
DX: N17.9 Acute kidney failure, unspecified (principal); I50.33 Acute on chronic diastolic (congestive) heart failure; I13.2 Hypertensive heart and chronic kidney disease with heart failure and with stage 5 chronic kidney disease, or end stage renal disease; E44.1 Mild protein-calorie malnutrition; I31.3 Pericardial effusion (noninflammatory); E87.1 Hypo-osmolality and hyponatremia; E87.2 Acidosis; N39.0 Urinary tract infection, site not specified; I69.354 Hemiplegia and hemiparesis following cerebral infarction affecting left non-dominant side; N18.5 Chronic kidney disease, stage 5; E86.0 Dehydration; E11.21 Type 2 diabetes mellitus with diabetic nephropathy; D63.1 Anemia in chronic kidney disease; Z86.718 Personal history of other venous thrombosis and embolism; F32.9 Major depressive disorder, single episode, unspecified; F03.90 Unspecified dementia, unspecified severity, without behavioral disturbance, psychotic disturbance, mood disturbance, and anxiety; R62.7 Adult failure to thrive; R63.0 Anorexia; E03.9 Hypothyroidism, unspecified; D63.8 Anemia in other chronic diseases classified elsewhere; Z86.73 Personal history of transient ischemic attack (TIA), and cerebral infarction without residual deficits; Z88.1 Allergy status to other antibiotic agents; M19.90 Unspecified osteoarthritis, unspecified site; M81.0 Age-related osteoporosis without current pathological fracture; I16.0 Hypertensive urgency; Z87.891 Personal history of nicotine dependence; I69.322 Dysarthria following cerebral infarction; I69.319 Unspecified symptoms and signs involving cognitive functions following cerebral infarction; E87.8 Other disorders of electrolyte and fluid balance, not elsewhere classified
CPT/HCPCS: 36415; 36569; 74176; 76830; 76856; 76937; 80048; 80053; 81003; 82330; 82550; 83690; 83735; 83880; 83935; 84300; 84439; 84443; 84481; 84550; 85007; 85025; 87086; 92610; 93005; 93306; 93970

== ENCOUNTER 2019-09-15 11:02 | Inpatient (IN) | payer MEDICARE, OTHER ==
[~2019-09-15] VITALS: Ht 160 cm; Wt 88.4 kg
[~2019-09-15 11:02] MED LIST changes: +DEXTROSE 5% IV
[2019-09-15] MEDS ORDERED: Cefepime HCl 2 GM in NS 110 ML IV SCH (11:30)
[2019-09-15] MEDS ORDERED: Acetaminophen 650 MG SUPP RECTAL ONE (11:30)
[2019-09-15 11:31] VITALS: BP 144/78
--- NOTE | 2019-09-15 11:36 | NUR ---
ED Nurse Note: Patient brought in to ER from home by daughter due to general weakness. per jigna, pt is usually aao x2-3 and ambulate to bathroom by herself with FWW but since Sunday pt became weak and unable to ambulate and currently nonverbal. pt responds to deep pain only. skin clean and intact but hot to touch. rectal temp 104F and ERMD made aware. pt is in gown and on compliance monitor.
[2019-09-15 12:04] LABS: HEMOGLOBIN 8.8 G/DL (12.0-16.0); MEAN CORPUSCULAR VOLUME 94 FL (80-99); PLATELET COUNT 204 K/UL (150-450); RED BLOOD COUNT 2.96 M/UL (4.20-5.40); RED CELL DISTRIBUTION WIDTH 14.5 % (11.6-14.8); WHITE BLOOD COUNT 18.3 K/UL (4.8-10.8)
[2019-09-15 12:08] LABS: ANION GAP 16 mmol/L (5-15); BLOOD UREA NITROGEN 44 mg/dL (7-18); CALCIUM 8.9 MG/DL (8.5-10.1); CARBON DIOXIDE 15 MMOL/L (21-32); CHLORIDE 112 MMOL/L (98-107); CREATININE 4.1 MG/DL (0.55-1.30); POTASSIUM 4.4 MMOL/L (3.5-5.1); SODIUM 143 MMOL/L (136-145)
[2019-09-15 12:10] LABS: INR 1.2 (0.9-1.1)
--- NOTE | 2019-09-15 12:10 | NUR ---
ED Nurse Note: pt opened her eyes and answered the questions. now pt is aao x2. pt was being turned in bed and she helped with turning.
[2019-09-15 12:14] LABS: APPEARANCE,URINE SLIGHTLY CLOUDY; BILIRUBIN, URINE 1+ (NEGATIVE); COLOR,URINE BROWN; GLUCOSE, URINE (UA) NEGATIVE (NEGATIVE); KETONES,URINE 1+ (NEGATIVE); LEUKOCYTE ESTERASE ,URINE 1+ (NEGATIVE); NITRITE,URINE NEGATIVE (NEGATIVE); PH,URINE 5 (4.5-8.0); PROTEIN,URINE 4+ (NEGATIVE); UROBILINOGEN,URINE 4 MG/DL (0.0-1.0)
--- NOTE | 2019-09-15 12:21 | NUR ---
ED Nurse Note: daughter left. phone number [phone] Sharron Holm.
--- NOTE | 2019-09-15 12:21 | NUR ---
ED Nurse Note: x-ray at bedside.
[2019-09-15 12:23] LABS: ALANINE AMINOTRANSFERASE 21 U/L (12-78); ALBUMIN 2.5 G/DL (3.4-5.0); ALBUMIN/GLOBULIN RATIO 0.5 (1.0-2.7); ALKALINE PHOSPHATASE 84 U/L (46-116); ASPARTATE AMINO TRANSFERASE 41 U/L (15-37); BILIRUBIN,TOTAL 1.2 MG/DL (0.2-1.0); CREATINE KINASE 110 U/L (26-308)
[2019-09-15 12:24] LABS: BILIRUBIN,DIRECT 0.8 MG/DL (0.0-0.3)
--- NOTE | 2019-09-15 13:07 | Emergency Room Report ---
History of Present Illness General Chief Complaint: Generalized Weakness Source: Caregiver Present Illness HPI Patient brought in for altered level of consciousness. Apparently she is not eating for the last few days but did take in some apple juice earlier today. The patient feels warm to touch according to the attraction attendant. 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 The patient is unable to Answer questions. She has minimal response to pain. Patient discharged August 29 with these discharge diagnoses: Acute on chronic renal failure Hypertensive heart disease Small pericardial effusion Mild protein calorie malnutrition Hyponatremia Metabolic acidosis Major depressive disorder Dementia Failure to thrive with poor oral intake Functional decline Anorexia CKD stage V Hypothyroidism Anemia of chronic disease Dehydration UTI Allergies: Coded Allergies: ERYTHROMYCIN BASE (Unverified Allergy, Intermediate, 07/14/19) Per patient not allergic to medications or food Patient History Limited by: medical condition Past Medical History: see triage record, old chart reviewed Social History: Denies: smoking - Former, alcohol use, drug use Social History Narrative With attraction attendant Reviewed Nursing Documentation: PMH: Agreed; PSxH: Agreed Nursing Documentation-PMH Past Medical History: No History, Except For Hx Cardiac Problems: Yes Hx Hypertension: Yes Hx Asthma: No Hx Cancer: No Hx Gastrointestinal Problems: No Hx Neurological Problems: Yes Hx Cerebrovascular Accident: Yes Hx Parkinson's Disease: Yes Hx Seizures: Yes Hx Speech Problem: Yes - Garbled Review of Systems All Other Systems: limited Physical Exam Vital Signs Date Time Temp Pulse Resp B/P (MAP) Pulse Ox O2 Delivery O2 Flow Rate FiO2 09/15/19 11:08 99.3 129 22 144/78 (100) 95 Room Air General Appearance: moderate distress, lethargic, Stupor Head: normocephalic, atraumatic Eyes: bilateral eye PERRL, bilateral eye EOMI ENT: normal pharynx, moist mucus membranes Neck: supple, no meningismus - But unresponsive Respiratory: chest non-tender, lungs clear, normal breath sounds Cardiovascular #1: tachycardia Cardiovascular #2: 2+ radial (R) Gastrointestinal: non tender, soft, decreased bowel sounds Genitourinary: no CVA tenderness Musculoskeletal: no calf tenderness, other - No pain with passive range of motion Neurologic: DTRs symmetric, other - Minimally responsive to pain, generalized weakness Reflexes: 1+ knee (R), 1+ knee (L) Skin: no rash Procedures Critical Care Time Critical Care Time Total Critical Care Time: 45 min bedside evaluation and treatment excludes procedures (EKG). Reason for critical care: Sepsis, hyperpyrexia, repeat exams Possible complications: hypotension, hypertension, SD, shock, arrhythmias, metabolic acidosis, end organ damage, respiratory failure. Interventions: Aggressive fever control, sepsis resuscitation, antibiotic administration, repeat exams Course: Patient presents with high fever, tachycardia and stupor. Sepsis resuscitation begun. Broad-spectrum antibiotics begun with unidentified source. Sepsis reevaluation with improvement. Temperature improving. Third evaluation with patient responsive and complaining of abdominal pain. Abdomen nonsurgical. Discussed with admitting physician and infectious disease application development consultant Consultations: nursing staff, attraction attendant, admitting physician, infectious disease application development consultant Performed by: Dr. Gibson Tolerated well condition = serious Medical Decision Making Diagnostic Impression: Primary Impression: Sepsis Qualified Codes: A41.9 - Sepsis, unspecified organism; R65.20 - Severe sepsis without septic shock; N17.9 - Acute kidney failure, unspecified Additional Impressions: Fever Qualified Codes: R50.81 - Fever presenting with conditions classified elsewhere Acute renal failure (ARF) Qualified Codes: N17.9 - Acute kidney failure, unspecified Abdominal pain in female Anemia in chronic kidney disease Qualified Codes: N18.9 - Chronic kidney disease, unspecified; D63.1 - Anemia in chronic kidney disease ER Course Patient presents with high fever and altered mentation. Differential includes sepsis, acute myocardial infarction, pneumonia, urinary tract infection, other source of infection, viral syndrome, dehydration amongst others. Evaluation with EKG, chest x-ray and labs. Sepsis resuscitation begun with IV hydration. Consideration for early antibiotic administration. EKG with sinus tachycardia without injury. Chest x-ray no infiltrates however increased right minor fissure de anda. Labs with leukocytosis. Anemia. CMP with acidosis and renal failure. Urinalysis unremarkable. Examined in emergency department by Dr. Rivas and also infectious disease specialist. 1315: Patient reevaluated sepsis reevaluation. Temperature decreasing, heart rate now 101, capillary refill good. Antibiotics begun. Source of infection not clear as there is no infiltrates (this could be because of severe dehydration). Also urinalysis appears fairly clear. Clinically improved. 15:24 - patient awake, answering questions. c/o generalized abdominal pain. Abd is soft and no guarding - not surgical. Repeat lactate normal. Temp improving. Patient improved but serious. Admit telemetry Dr. Hendricks. Laboratory Tests Test 09/15/19 11:15 09/15/19 11:40 09/15/19 13:00 White Blood Count 18.3 K/UL (4.8-10.8) H Red Blood Count 2.96 M/UL (4.20-5.40) L Hemoglobin 8.8 G/DL (12.0-16.0) L Hematocrit 28.0 % (37.0-47.0) L Mean Corpuscular Volume 94 FL (80-99) Mean Corpuscular Hemoglobin 29.8 PG (27.0-31.0) Mean Corpuscular Hemoglobin Concent 31.5 G/DL (32.0-36.0) L Red Cell Distribution Width 14.5 % (11.6-14.8) Platelet Count 204 K/UL (150-450) Mean Platelet Volume 9.4 FL (6.5-10.1) Neutrophils (%) (Auto) % (45.0-75.0) Lymphocytes (%) (Auto) % (20.0-45.0) Monocytes (%) (Auto) % (1.0-10.0) Eosinophils (%) (Auto) % (0.0-3.0) Basophils (%) (Auto) % (0.0-2.0) Differential Total Cells Counted 100 Neutrophils % (Manual) 82 % (45-75) H Lymphocytes % (Manual) 4 % (20-45) L Monocytes % (Manual) 7 % (1-10) Eosinophils % (Manual) 0 % (0-3) Basophils % (Manual) 0 % (0-2) Band Neutrophils 7 % (0-8) Platelet Estimate Adequate Platelet Morphology Normal Hypochromasia 1+ Prothrombin Time 12.6 SEC (9.30-11.50) H Prothrombin Time INR 1.2 (0.9-1.1) H PTT 29 SEC (23-33) Sodium Level 143 MMOL/L (136-145) Potassium Level 4.4 MMOL/L (3.5-5.1) Chloride Level 112 MMOL/L (98-107) H Carbon Dioxide Level 15 MMOL/L (21-32) L Anion Gap 16 mmol/L (5-15) H Blood Urea Nitrogen 44 mg/dL (7-18) H Creatinine 4.1 MG/DL (0.55-1.30) H Estimate Glomerular Filtration Rate mL/min (>60) Glucose Level 192 MG/DL (74-106) H Lactic Acid Level 3.90 mmol/L (0.4-2.0) H 1.20 mmol/L (0.66-2.22) Calcium Level 8.9 MG/DL (8.5-10.1) Magnesium Level 1.4 MG/DL (1.8-2.4) L Total Bilirubin 1.2 MG/DL (0.2-1.0) H Direct Bilirubin 0.8 MG/DL (0.0-0.3) H Aspartate Amino Transferase (AST) 41 U/L (15-37) H Alanine Aminotransferase (ALT) 21 U/L (12-78) Alkaline Phosphatase 84 U/L (46-116) Total Creatine Kinase 110 U/L (26-308) Troponin I 0.020 ng/mL (0.000-0.056) Pro-B-Type Natriuretic Peptide 3992 pg/mL (0-125) H Total Protein 7.8 G/DL (6.4-8.2) Albumin 2.5 G/DL (3.4-5.0) L Globulin 5.3 g/dL Albumin/Globulin Ratio 0.5 (1.0-2.7) L Lipase 168 U/L (73-393) Urine Color Brown Urine Appearance Slightly cloudy Urine pH 5 (4.5-8.0) Urine Specific [place] 1.020 (1.005-1.035) Urine Protein 4+ (NEGATIVE) H Urine Glucose (UA) Negative (NEGATIVE) Urine Ketones 1+ (NEGATIVE) H Urine Blood 1+ (NEGATIVE) H Urine Nitrite Negative (NEGATIVE) Urine Bilirubin 1+ (NEGATIVE) H Urine Ictotest Negative (NEGATIVE) Urine Urobilinogen 4 MG/DL (0.0-1.0) H Urine Leukocyte Esterase 1+ (NEGATIVE) H Urine RBC 2-4 /HPF (0 - 2) H Urine WBC 0-2 /HPF (0 - 2) Urine Squamous Epithelial Cells Occasional /LPF Urine Amorphous Sediment Moderate /LPF (NONE) H Urine Bacteria Few /HPF (NONE) Microbiology Date/Time Source Procedure Growth Status 09/15/19 11:15 Nasal Nares - Final Complete 09/15/19 11:15 Nasal Nares - Final Complete EKG Diagnostic Results Rate: tachycardiac Rhythm: NSR ST Segments: no acute changes - Nonspecific ST-T wave changes Rhythm Strip Diag. Results EP Interpretation: yes Rhythm: no PVC's, no ectopy, other - Rate 119 Chest X-Ray Diagnostic Results Chest X-Ray Diagnostic Results : Chest X-Ray Ordered: Yes # of Views/Limited/Complete: 1 View Indication: Other EP Interpretation: Yes Interpretation: no consolidation, no effusion, no pneumothorax, other - Cardiomegaly and minor fissure present on right Impression: Other Electronically Signed by: Electronically signed by Lance Gibson MD Last Vital Signs Date Time Temp Pulse Resp B/P (MAP) Pulse Ox O2 Delivery O2 Flow Rate FiO2 09/15/19 22:27 165/86 09/15/19 22:27 110 09/15/19 20:00 98.8 18 98 09/15/19 16:03 Room Air Status: improved Disposition: ADMITTED INPATIENT Condition: Serious Referrals: Chema Hendricks MD (PCP) Lance Gibson MD Sep 15, 2019 13:07
--- NOTE | 2019-09-15 13:21 | Diagnostic Imaging Report ---
Indication: Dyspnea Comparison: 05/15/2015 A single view chest radiograph was obtained. Findings: The heart is enlarged. There is pulmonary vascular congestion present. PICC line is noted. The tip is projected over the SVC. IMPRESSION: Suspected mild CHF
--- NOTE | 2019-09-15 15:01 | NUR ---
ED Nurse Note: body temp rectal 99.8F. pt is from hot to touch to warm to touch.
[2019-09-15 15:09] VITALS: BP 145/64
--- NOTE | 2019-09-15 15:20 | NUR ---
NURSE NOTES: Received call back from Dr. Hendricks orders will/in process of being entered. Addendum: 09/15/19 at 1744 by Stanley Boswell RN wrong time.
--- NOTE | 2019-09-15 15:31 | NUR ---
ED Nurse Note: REPORT GIVEN TO ENRIQUE MARSHALL FROM CELSA PALMER RN
--- NOTE | 2019-09-15 15:39 | NUR ---
ED Nurse Note: pt left unit with 1 manufacturing quality technician and 1 RN in stable condition.
--- NOTE | 2019-09-15 15:50 | NUR ---
NURSE NOTES: Received report/patient from ENRIQUE Gomez. Patient is AAO x 3. Patient is on 2L NC. Cardiac monitored placed. Patient was changed. Belonging checklist completed. PICC line on left arm intact and patent. Bed in lowest position, call light in place, bed is locked, side rails x3 are up. Purewic placed. Seizure precaution placed with padded side rails and suction set-up. Fall precaution placed with yellow socks, yellow sign, yellow id band. Will call Dr. Hendricks for orders.
[2019-09-15 16:00] VITALS: BP 149/75
--- NOTE | 2019-09-15 16:30 | NUR ---
NURSE NOTES: First call for Dr. Hendricks for orders.
--- NOTE | 2019-09-15 17:20 | NUR ---
NURSE NOTES: Received call back from Dr. Hendricks orders will/in process of being entered. Addendum: 09/15/19 at 1832 by Stanley Boswell RN Dr. Hendricks is aware of Magnesium of 1.4. Orders were entered.
[2019-09-15] MEDS ORDERED: Sodium Bicarbonate 50 ML in D5 1/2NS 1,000 ML IV SCH (19:00)
--- NOTE | 2019-09-15 19:46 | NUR ---
HAND-OFF: Report given to ENRIQUE Fung. Running through PICC is 2nd bag of Magnesium. No other IVF running. Patient is resting in bed.
[2019-09-15 20:00] VITALS: BP 160/86
[2019-09-15] MEDS ORDERED: Vancomycin 1.25gm/NS Premix q24h IVPB SCH (20:00)
--- NOTE | 2019-09-15 20:00 | NUR ---
NURSE NOTES: Received report from ENRIQUE Angel. Pt is sleeping on the bed and no sign of acute distress noted. On tele monitor with ST wtih HR; 108's. Addendum: 09/16/19 at 0200 by ANICETO PALMER RN RN Pt is drowsy. Pt has Lt. upper arm PICC line and intact and patent. Changed position. No skin breakdown noted. Placed fall precaution. Will continue to care plan.
[2019-09-15] MEDS: Epoetin Alfa-EPBX (NON ESRD) 2000 units/ml vial SUBQ SCH (20:41)
[2019-09-15] MEDS: Epoetin Alfa-EPBX (NON ESRD) 3000 units/ml vial SUBQ SCH (20:41)
[2019-09-15] MEDS: Heparin 5000 units/ml inj SUBQ SCH (21:43)
[2019-09-15] MEDS: Piperacillin/Tazobactam 3.375 GM in NS 110 ML IVPB SCH (21:44)
[2019-09-15] MEDS: HydrALAZINE 50mg tab ORAL SCH (22:27)
[2019-09-15] MEDS ORDERED: Dyna-Hex 2% Top Sol 2oz TOPIC ONE (23:45)
--- NOTE | 2019-09-15 23:45 | History and Physical Report ---
DATE OF ADMISSION: 09/15/2019 CHIEF COMPLAINT: Sepsis, fevers, and altered mental status. HISTORY OF PRESENT ILLNESS: The patient is a 73-year-old female. She has a history of chronic kidney disease, hypertension, and anemia. She was recently hospitalized with poor p.o. intake. She was placed on IV fluids and a PICC line was placed. It was recommended at that time that she undergo a G-tube, but family declined with hopes that the patient's eating would improve when she went home. But at home, the patient has had continued poor p.o. intake. She has been receiving daily hydration. Because of continued poor oral intake, family brought her to the emergency room. They also notes that she has been more confused. On evaluation in the emergency room, the patient was febrile to a temp of 102. She had a white count of 18,000. Her hemoglobin was 8. Creatinine was now up to 4.1 with a bicarb of 15. The patient has been pancultured and is now admitted for further evaluation and care. PAST MEDICAL HISTORY: As above. PAST SURGICAL HISTORY: None. CURRENT MEDICATIONS: Reconciled and reviewed. ALLERGIES: Include erythromycin. FAMILY HISTORY: Noncontributory. SOCIAL HISTORY: There is no known history of tobacco, ethanol, or drugs. REVIEW OF SYSTEMS: Unobtainable as the patient is confused. PHYSICAL EXAMINATION: VITAL SIGNS: T-max 102, pulse 91, respirations 24, and blood pressure 145/64. GENERAL: The patient is a chronic ill-appearing female, in no apparent distress. She is awake, but somnolent, sleepy, and confused. NECK: Supple. HEART: Regular rate and rhythm. LUNGS: Clear. ABDOMEN: Soft, nontender, and nondistended. EXTREMITIES: Without clubbing, cyanosis, or edema. LABORATORY DATA: Labs showed a white count of 18,000, hemoglobin is 8.8, and platelet count of 204,000. INR is 1.2. Sodium 143, potassium is 4.4, chloride 112, bicarb 16, BUN 44, and creatinine is 4.1. Mag was 1.4. Total bilirubin of 1.2. Natriuretic peptide level was 4000. Lactic acid level was 4. UA was clear. Chest x-ray showed questionable congestive heart failure. ASSESSMENT: This is an unfortunate 73-year-old female with history of hypertension, dementia, and chronic kidney disease admitted with complaints of fever secondary to sepsis, unclear etiology. She also has worsening acute renal failure, likely secondary to dehydration. PLAN: 1. Broad-spectrum IV antibiotics. 2. Follow up cultures. 3. Intravenous hydration. 4. Renal, Cardiology, and Infectious Disease consultations to be obtained. 5. We will monitor the patient's volume status and renal function closely. Chema Hendricks M.D. DR: OLVIN JOB#: [id number] CC:
[2019-09-16] VITALS: BP 160/77
--- NOTE | 2019-09-16 01:00 | Consultation ---
DATE OF CONSULTATION: 09/15/2019 CONSULTING PHYSICIAN: Jose Lemus M.D. REFERRING PHYSICIAN: Chema Hendricks M.D. REASON FOR CONSULTATION: Elevated BUN and creatinine, metabolic acidosis, and congestive heart failure. HISTORY OF PRESENT ILLNESS: The patient is well known to me. She has a history of chronic kidney disease likely stage 5, hypertension, prior CVA, morbid obesity, secondary hyperparathyroidism, and gastritis. She has been hospitalized recently for anorexia and poor oral intake and had extensive workup on her prior admission. Recently, she has been receiving intravenous hydration at home as she has been refusing to eat and she was sent to the hospital. Today according to a verbal report of Dr. Lance Rivas, she was sent in and had a fever and lethargy. Temperature was 99.3 in the emergency room, but apparently she had a fever of more than 101 at home. MEDICATIONS: Home medications are reviewed on the computer and include calcitriol 0.25 mcg daily, vitamin D3 2000 units twice a day, Cinacalcet 30 mg daily, clonidine 0.2 in the morning and 0.4 in the evening, ferrous sulfate 325 daily, hydralazine 100 mg every 8 hours, levothyroxine 125 mcg daily, metoprolol 100 mg b.i.d., nifedipine 60 mg b.i.d., Protonix 40 mg daily, temazepam 15 mg at bedtime. I cannot verify if this list is accurate at this time as the family is not present. ALLERGIES: None known. HABITS: She smoked cigarettes in the past and quit. No alcohol or drugs. SYSTEM REVIEW: The patient is a poor historian. It is taken from my experience and seeing her in the past. HEAD, EYES, EARS, NOSE, AND THROAT: Vision and hearing is good. ENDOCRINE: History of morbid obesity and hypothyroidism, and no definite diabetes. Her glucose random today is 192, but she has been receiving intravenous fluids. PULMONARY: She is somewhat short of breath on admission today. No history of chronic cough. CARDIAC: History of severe hypertension requiring multiple medications. No definite myocardial infarction. She has diastolic dysfunction. GASTROINTESTINAL: She has an intermittent constipation and severe anorexia. No vomiting or diarrhea. GENITOURINARY: She is incontinent of urine. 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 PHYSICAL EXAMINATION: GENERAL: The patient is lying in bed. She answers a few simple questions, somewhat moaning, and appears short of breath. VITAL SIGNS: Temperature 98.1, pulse 81, respirations 18, blood pressure 149/75, and pulse ox 95. HEENT: Sclerae are nonicteric. Ocular motion is intact in all directions. Oral mucosa moist. NECK: No adenopathy. LUNGS: Bilateral basilar rhonchi. She is mildly tachypneic. HEART: Regular rhythm. A 2/6 systolic ejection murmur. ABDOMEN: Obese and soft without organomegaly or masses. EXTREMITIES: No edema, cyanosis, or clubbing. NEUROLOGIC: She is arousable and alert, but disoriented and confused. Ocular motion is intact in all directions. Smile is symmetric. She is dysarthric. She moves all extremities. PERTINENT LABORATORY: Today, sodium 143, potassium 4.4, chloride 112, and CO2 15. Anion gap 16. BUN 44, creatinine 4.1, and glucose is 192. Lactic acid 3.9 to 1.2. Calcium 8.9 and magnesium 1.4. Total bilirubin 1.2. AST is 41. BNP 3992. Troponin 0.020. Albumin is 2.5. Chest x-ray shows mild congestive heart failure. White count 18.3 and hemoglobin 8.8. IMPRESSION: 1. Chronic kidney disease stage 5 and hypertensive nephrosclerosis. 2. Anorexia, which may be due to azotemia. 3. Metabolic acidosis with elevated lactate. 4. History of fever and possible sepsis. 5. Congestive heart failure, acute on chronic with diastolic dysfunction. 6. History of malignant hypertension with nephrosclerosis and congestive heart failure. 7. Anemia of chronic kidney disease. 8. Borderline elevation of bilirubin, possibly from congestive heart failure. PLAN: The patient will be cultured and put on broad-spectrum antibiotics. We will stop intravenous hydration and diurese her in view of her congestive heart failure. She will be watched closely in view of her comorbidities. Medications have been ordered. In view of her CKD, she may need to start dialysis on this admission. We will discuss further. Jose Lemus M.D. DR: JEFFREY JOB#: [id number] CC:
--- NOTE | 2019-09-16 01:15 | Consultation ---
DATE OF CONSULTATION: 09/15/2019 INFECTIOUS DISEASE CONSULTATION CONSULTING PHYSICIAN: Jessica Reyes M.D. REFERRING PHYSICIAN: Lance Rivas M.D. REASON FOR CONSULTATION: Fever. HISTORY OF PRESENT ILLNESS: This is a 73-year-old lady with history of hypertension, CVA, Parkinson disease, and seizures. The patient has been having some fevers as well as has not been eating properly. She has also had some altered level of consciousness. She was seen in the [facility] emergency room. There is a concern for sepsis and an Infectious Disease consultation has been obtained for antibiotics. PAST MEDICAL HISTORY: 1. History of hypertension. 2. History of CVA. 3. Parkinson disease. 4. Seizures. MEDICATIONS: As an inpatient, she is on levothyroxine, Zosyn, Epogen, vancomycin, sodium bicarbonate, magnesium sulfate, Protonix, and cefepime. ALLERGIES: Erythromycin. SOCIAL HISTORY: Unknown. FAMILY HISTORY: Unknown. REVIEW OF SYSTEMS: Unable to obtain currently. PHYSICAL EXAMINATION: VITAL SIGNS: Temperature 98.1 and T-max of 104, pulse 89, respiratory rate 18, and blood pressure 139/75. O2 saturation 98%. HEENT: Pupils are equally reactive to light and accommodation. Mouth appears clean without thrush. NECK: Supple. No adenopathy. No JVD. CARDIOVASCULAR: Regular rate and rhythm. No murmurs. LUNGS: Clear to auscultation bilaterally. No crackles. No wheezes. ABDOMEN: Soft and nontender. No organomegaly. EXTREMITIES: No cyanosis. No clubbing. No edema noted bilaterally. Left arm PICC line noted. LABORATORY DATA: White count of 18.3, hemoglobin 8.8, hematocrit 28, MCV 94, and platelet count 204,000 with neutrophils of 82%. Sodium 143, potassium 4.4, chloride 112, bicarbonate 16, BUN 44, and creatinine 4.1. Glucose 192. Calcium 8.2. Total bilirubin 1.2, direct bilirubin 0.8. AST 41, ALT 21, and alkaline phosphatase 84. CK of 110. Beta-natriuretic peptide 3992. Total protein 7.8, albumin 2.5. Lipase of 168. UA is showing 0 to 2 white cells. Blood cultures are pending. Chest x-ray is showing suspected mild congestive heart failure. ASSESSMENT: This is a 73-year-old lady with history of Parkinson disease, seizures, and hypertension, who comes in with fevers and altered level of consciousness and poor eating. Would be concerned regarding, 1. Possible sepsis. 2. Leukocytosis. 3. Parkinson disease. 4. Seizures. 5. Renal failure. PLAN: 1. Continue Zosyn. 2. Discontinue cefepime and IV vancomycin. 3. We will start the patient on linezolid. 4. We will follow up cultures and adjust antibiotics accordingly. I would like to thank Dr. Rivas for this consultation. Jessica Reyes M.D. DR: DONI JOB#: [id number] CC:
[2019-09-16 04:00] VITALS: BP 160/83
[2019-09-16] MEDS: HydrALAZINE 50mg tab ORAL SCH ×3 (05:37→21:20)
[2019-09-16] MEDS: Levothyroxine 125mcg tab ORAL SCH (06:29)
--- NOTE | 2019-09-16 06:45 | NUR ---
NURSE NOTES: Dr. Hendricks visited and assessed Pt. MD aware regarding high BP. Will continue to monitor any change of condition.
[2019-09-16 07:05] LABS: MEAN CORPUSCULAR VOLUME 93 FL (80-99); PLATELET COUNT 163 K/UL (150-450); RED CELL DISTRIBUTION WIDTH 14.5 % (11.6-14.8); WHITE BLOOD COUNT 12.9 K/UL (4.8-10.8)
--- NOTE | 2019-09-16 07:16 | General Progress Note ---
Assessment/Plan Problem List: (1) Chronic kidney disease, stage III (moderate) ICD Codes: N18.3 - Chronic kidney disease, stage III (moderate) SNOMED: 289430142 (2) Hypertensive nephrosclerosis ICD Codes: I12.9 - Hypertensive chronic kidney disease with stage 1 through stage 4 chronic kidney disease, or unspecified chronic kidney disease SNOMED: 580161239 (3) CKD (chronic kidney disease) stage 4, GFR 15-29 ml/min ICD Codes: N18.4 - Chronic kidney disease, stage 4 (severe) SNOMED: 858118199 (4) Fever ICD Codes: R50.9 - Fever, unspecified SNOMED: 201897640 Qualifiers: Qualified Codes: R50.81 - Fever presenting with conditions classified elsewhere (5) Anorexia ICD Codes: R63.0 - Anorexia SNOMED: 29170189 (6) Hypothyroidism ICD Codes: E03.9 - Hypothyroidism SNOMED: 83911329 (7) Sepsis ICD Codes: A41.9 - Sepsis, unspecified organism SNOMED: 80420971 Qualifiers: Qualified Codes: A41.9 - Sepsis, unspecified organism; R65.20 - Severe sepsis without septic shock; N17.9 - Acute kidney failure, unspecified (8) Abdominal pain in female ICD Codes: R10.9 - Unspecified abdominal pain SNOMED: 49065966 (9) Acute renal failure (ARF) ICD Codes: N17.9 - Acute kidney failure, unspecified SNOMED: 47566652 Qualifiers: Qualified Codes: N17.9 - Acute kidney failure, unspecified Status: stable, not improved Assessment/Plan: cont ivf with bicarb follow up labs renal eval. resume nifedipine for htn iv abx per id follow up cultures GI eval cards eval may need gt Subjective ROS Limited/Unobtainable: No Constitutional: Reports: malaise, weakness HEENT: Reports: no symptoms Cardiovascular: Reports: no symptoms Respiratory: Reports: cough Gastrointestinal/Abdominal: Reports: abdominal pain, poor appetite, poor fluid intake Genitourinary: Reports: no symptoms Neurologic/Psychiatric: Reports: depressed, emotional problems, pre-existing deficit Endocrine: Reports: no symptoms Hematologic/Lymphatic: Reports: anemia Allergies: Coded Allergies: ERYTHROMYCIN BASE (Unverified Allergy, Intermediate, 07/14/19) Per patient not allergic to medications or food All Systems: reviewed and negative except above Subjective no events. poor po intake. c/o abd pain. on ivf. still with poor po intake. + anorexia. on ivf with bicarb and abx. cultures pending Objective Last 24 Hour Vital Signs Date Time Temp Pulse Resp B/P (MAP) Pulse Ox O2 Delivery O2 Flow Rate FiO2 09/16/19 05:37 165/85 09/16/19 04:00 98.7 89 19 160/83 (108) 97 09/16/19 04:00 90 09/16/19 00:00 98.0 106 20 160/77 (104) 97 09/16/19 00:00 103 09/15/19 22:27 165/86 09/15/19 22:27 110 165/86 09/15/19 21:00 Room Air 09/15/19 20:00 98.8 109 18 160/86 (110) 98 09/15/19 20:00 107 09/15/19 16:29 89 09/15/19 16:03 Room Air 09/15/19 16:00 98.1 81 18 149/75 (99) 98 09/15/19 15:37 97.8 100 19 142/75 100 Room Air 09/15/19 15:09 97.5 91 24 145/64 100 Room Air 09/15/19 12:26 101.9 09/15/19 11:31 104.0 127 22 144/78 98 Room Air 09/15/19 11:31 127 22 Room Air 09/15/19 11:08 99.3 129 22 144/78 (100) 95 Room Air Intake and Output 09/15/19 09/16/19 18:59 06:59 Intake Total 2860 ml 650.0 ml Output Total 2000 ml Balance 2860 ml -1350.0 ml Intake Oral 0 ml 240 ml IV Total 2860 ml 410.0 ml Output Urine Total 2000 ml # Voids 2 # Bowel Movements 1 Laboratory Tests 09/15/19 11:15: White Blood Count 18.3H, Red Blood Count 2.96L, Hemoglobin 8.8L, Hematocrit 28.0L, Mean Corpuscular Volume 94, Mean Corpuscular Hemoglobin 29.8, Mean Corpuscular Hemoglobin Concent 31.5L, Red Cell Distribution Width 14.5, Platelet Count 204, Mean Platelet Volume 9.4, Neutrophils (%) (Auto) , Lymphocytes (%) (Auto) , Monocytes (%) (Auto) , Eosinophils (%) (Auto) , Basophils (%) (Auto) , Differential Total Cells Counted 100, Neutrophils % ( Manual) 82H, Lymphocytes % (Manual) 4L, Monocytes % (Manual) 7, Eosinophils % ( Manual) 0, Basophils % (Manual) 0, Band Neutrophils 7, Platelet Estimate Adequate, Platelet Morphology Normal, Hypochromasia 1+, Prothrombin Time 12.6H, Prothromb Time International Ratio 1.2H, Activated Partial Thromboplast Time 29 , Sodium Level 143, Potassium Level 4.4, Chloride Level 112H, Carbon Dioxide Level 15L, Anion Gap 16H, Blood Urea Nitrogen 44H, Creatinine 4.1H, Estimat Glomerular Filtration Rate , Glucose Level 192H, Lactic Acid Level 3.90H, Calcium Level 8.9, Magnesium Level 1.4L, Total Bilirubin 1.2H, Direct Bilirubin 0.8H, Aspartate Amino Transf (AST/SGOT) 41H, Alanine Aminotransferase (ALT/SGPT ) 21, Alkaline Phosphatase 84, Total Creatine Kinase 110, Troponin I 0.020, Pro- B-Type Natriuretic Peptide 3992H, Total Protein 7.8, Albumin 2.5L, Globulin 5.3 , Albumin/Globulin Ratio 0.5L, Lipase 168 09/15/19 11:40: Urine Color Brown, Urine Appearance Slightly cloudy, Urine pH 5, Urine Specific [place] 1.020, Urine Protein 4+H, Urine Glucose (UA) Negative, Urine Ketones 1+H , Urine Blood 1+H, Urine Nitrite Negative, Urine Bilirubin 1+H, Urine Ictotest Negative, Urine Urobilinogen 4H, Urine Leukocyte Esterase 1+H, Urine RBC 2-4H, Urine WBC 0-2, Urine Squamous Epithelial Cells Occasional, Urine Amorphous Sediment ModerateH, Urine Bacteria Few 09/15/19 13:00: Lactic Acid Level 1.20 09/16/19 06:12: White Blood Count 12.9H, Red Blood Count 2.70L, Hemoglobin 8.0L, Hematocrit 25.0L, Mean Corpuscular Volume 93, Mean Corpuscular Hemoglobin 29.7, Mean Corpuscular Hemoglobin Concent 32.0, Red Cell Distribution Width 14.5, Platelet Count 163, Mean Platelet Volume 10.7H, Neutrophils (%) (Auto) , Lymphocytes (%) (Auto) , Monocytes (%) (Auto) , Eosinophils (%) (Auto) , Basophils (%) (Auto) , Neutrophils % (Manual) [Pending], Lymphocytes % (Manual) [Pending], Platelet Estimate [Pending], Platelet Morphology [Pending], Sodium Level [Pending], Potassium Level [Pending], Chloride Level [Pending], Carbon Dioxide Level [ Pending], Blood Urea Nitrogen [Pending], Creatinine [Pending], Estimat Glomerular Filtration Rate [Pending], Glucose Level [Pending], Calcium Level [ Pending], Magnesium Level [Pending], Total Bilirubin [Pending], Aspartate Amino Transf (AST/SGOT) [Pending], Alanine Aminotransferase (ALT/SGPT) [Pending], Alkaline Phosphatase [Pending], Total Protein [Pending], Albumin [Pending], Globulin [Pending] Height (Feet): 5 Height (Inches): 4.00 Weight (Pounds): 150 General Appearance: WD/WN, alert Neck: supple Cardiovascular: normal rate Respiratory/Chest: chest wall non-tender, lungs clear, normal breath sounds Abdomen: normal bowel sounds, non tender, soft, no organomegaly Edema: no edema noted Arm (L), no edema noted Arm (R), no edema noted Leg (L), no edema noted Leg (R), no edema noted Pedal (L), no edema noted Pedal (R), no edema noted Generalized 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
--- NOTE | 2019-09-16 07:23 | NUR ---
HAND-OFF: Report given to ENRIQUE Jj. Pt is resting on the bed and no sign of acute distress noted.
--- NOTE | 2019-09-16 07:38 | NUR ---
NURSE NOTES: Received report from Sandy Desouza RN. Patient asleep in bed, opens eyes spontaneously, oriented x 2, able to make needs known and follow commands. On room air, respirations even and unlabored. Female external catheter in place and attached to low, continuous suction. Left upper arm PICC patent and asymptomatic. Bed locked in lowest position with side rails up x 3. All needs attended to. Call light within reach. Will continue to monitor.
[2019-09-16 07:39] LABS: ALANINE AMINOTRANSFERASE 21 U/L (12-78); ALBUMIN 2.2 G/DL (3.4-5.0); ALBUMIN/GLOBULIN RATIO 0.4 (1.0-2.7); ALKALINE PHOSPHATASE 68 U/L (46-116); ANION GAP 14 mmol/L (5-15); ASPARTATE AMINO TRANSFERASE 30 U/L (15-37); BLOOD UREA NITROGEN 43 mg/dL (7-18); CALCIUM 9.1 MG/DL (8.5-10.1); CARBON DIOXIDE 20 MMOL/L (21-32); CHLORIDE 114 MMOL/L (98-107); CREATININE 3.5 MG/DL (0.55-1.30); POTASSIUM 4.1 MMOL/L (3.5-5.1); SODIUM 147 MMOL/L (136-145)
[2019-09-16 08:00] VITALS: BP 151/73
[2019-09-16] MEDS: Heparin 5000 units/ml inj SUBQ SCH ×2 (09:00→21:23)
[2019-09-16] MEDS: Piperacillin/Tazobactam 3.375 GM in NS 110 ML IVPB SCH (09:16)
--- NOTE | 2019-09-16 09:34 | NUR ---
NURSE NOTES: Patient's blood culture positive for G+ cocci in clusters, 4 bottles, Dr. Hendricks made aware. Patient afebrile at this time, vital signs stable.
--- NOTE | 2019-09-16 10:08 | Diagnostic Imaging Report ---
Indication: Cough Technique: One view of the chest Comparison: 09/07/2019 Findings: Large calcified granulomatous lymph nodes are seen in the right hilar region. There is a left arm PICC. The lungs and pleural spaces are clear. Previously demonstrated interstitial congestion appears improved. The heart size is borderline enlarged. Impression: No acute process. Interval improvement of previously demonstrated interstitial congestion Evidence of old granulomatous disease.
--- NOTE | 2019-09-16 10:44 | Infectious Diseases Prog Note ---
Assessment/Plan Assessment/Plan antibiotics : linezolid, zosyn A 1. gram positive sepsis, likely catheter infection 2. fever improving 3. renal failure 4. leucocytosis improving 5. hypertension 6. dementia 7. CHF P 1. continue linezolid 2. d/c zosyn 3. d/c left arm PICC line 4. will follow up cultures Subjective Constitutional: Denies: fever, chills Respiratory: Denies: shortness of breath, dry cough Gastrointestinal/Abdominal: Denies: nausea, vomiting, diarrhea Musculoskeletal: Reports: pain Allergies: Coded Allergies: ERYTHROMYCIN BASE (Unverified Allergy, Intermediate, 07/14/19) Per patient not allergic to medications or food Objective Vital Signs Last 24 Hour Vital Signs Date Time Temp Pulse Resp B/P (MAP) Pulse Ox O2 Delivery O2 Flow Rate FiO2 09/16/19 09:16 89 151/73 09/16/19 09:16 89 151/73 09/16/19 08:00 98.0 89 18 151/73 (99) 97 09/16/19 07:49 91 09/16/19 05:37 165/85 09/16/19 04:00 98.7 89 19 160/83 (108) 97 09/16/19 04:00 90 09/16/19 00:00 98.0 106 20 160/77 (104) 97 09/16/19 00:00 103 09/15/19 22:27 165/86 09/15/19 22:27 110 165/86 09/15/19 21:00 Room Air 09/15/19 20:00 98.8 109 18 160/86 (110) 98 09/15/19 20:00 107 09/15/19 16:29 89 09/15/19 16:03 Room Air 09/15/19 16:00 98.1 81 18 149/75 (99) 98 09/15/19 15:37 97.8 100 19 142/75 100 Room Air 09/15/19 15:09 97.5 91 24 145/64 100 Room Air 09/15/19 12:26 101.9 09/15/19 11:31 104.0 127 22 144/78 98 Room Air 09/15/19 11:31 127 22 Room Air 09/15/19 11:08 99.3 129 22 144/78 (100) 95 Room Air Height (Feet): 5 Height (Inches): 4.00 Weight (Pounds): 150 Respiratory/Chest: lungs clear Cardiovascular: normal rate, regular rhythm, no gallop/murmur Abdomen: soft, non tender Extremities: no edema, other - left arm PICC Microbiology Date/Time Source Procedure Growth Status 09/15/19 11:19 Blood Blood Culture - Preliminary Resulted 09/15/19 11:15 Blood Blood Culture - Preliminary Resulted 09/15/19 11:15 Nasal Nares - Final Complete 09/15/19 11:15 Nasal Nares - Final Complete 09/16/19 02:11 Rectum Received Laboratory Tests Test 09/15/19 11:15 09/15/19 11:40 09/15/19 13:00 09/16/19 06:12 White Blood Count 18.3 K/UL (4.8-10.8) H 12.9 K/UL (4.8-10.8) H Red Blood Count 2.96 M/UL (4.20-5.40) L 2.70 M/UL (4.20-5.40) L Hemoglobin 8.8 G/DL (12.0-16.0) L 8.0 G/DL (12.0-16.0) L Hematocrit 28.0 % (37.0-47.0) L 25.0 % (37.0-47.0) L Mean Corpuscular Volume 94 FL (80-99) 93 FL (80-99) Mean Corpuscular Hemoglobin 29.8 PG (27.0-31.0) 29.7 PG (27.0-31.0) Mean Corpuscular Hemoglobin Concent 31.5 G/DL (32.0-36.0) L 32.0 G/DL (32.0-36.0) Red Cell Distribution Width 14.5 % (11.6-14.8) 14.5 % (11.6-14.8) Platelet Count 204 K/UL (150-450) 163 K/UL (150-450) Mean Platelet Volume 9.4 FL (6.5-10.1) 10.7 FL (6.5-10.1) H Neutrophils (%) (Auto) % (45.0-75.0) % (45.0-75.0) Lymphocytes (%) (Auto) % (20.0-45.0) % (20.0-45.0) Monocytes (%) (Auto) % (1.0-10.0) % (1.0-10.0) Eosinophils (%) (Auto) % (0.0-3.0) % (0.0-3.0) Basophils (%) (Auto) % (0.0-2.0) % (0.0-2.0) Differential Total Cells Counted 100 100 Neutrophils % (Manual) 82 % (45-75) H 86 % (45-75) H Lymphocytes % (Manual) 4 % (20-45) L 8 % (20-45) L Monocytes % (Manual) 7 % (1-10) 6 % (1-10) Eosinophils % (Manual) 0 % (0-3) 0 % (0-3) Basophils % (Manual) 0 % (0-2) 0 % (0-2) Band Neutrophils 7 % (0-8) 0 % (0-8) Platelet Estimate Adequate Adequate Platelet Morphology Normal Normal Hypochromasia 1+ Prothrombin Time 12.6 SEC (9.30-11.50) H Prothromb Time International Ratio 1.2 (0.9-1.1) H Activated Partial Thromboplast Time 29 SEC (23-33) Sodium Level 143 MMOL/L (136-145) 147 MMOL/L (136-145) H Potassium Level 4.4 MMOL/L (3.5-5.1) 4.1 MMOL/L (3.5-5.1) Chloride Level 112 MMOL/L (98-107) H 114 MMOL/L (98-107) H Carbon Dioxide Level 15 MMOL/L (21-32) L 20 MMOL/L (21-32) L Anion Gap 16 mmol/L (5-15) H 14 mmol/L (5-15) Blood Urea Nitrogen 44 mg/dL (7-18) H 43 mg/dL (7-18) H Creatinine 4.1 MG/DL (0.55-1.30) H 3.5 MG/DL (0.55-1.30) H Estimat Glomerular Filtration Rate mL/min (>60) mL/min (>60) Glucose Level 192 MG/DL (74-106) H 112 MG/DL (74-106) H Lactic Acid Level 3.90 mmol/L (0.4-2.0) H 1.20 mmol/L (0.66-2.22) Calcium Level 8.9 MG/DL (8.5-10.1) 9.1 MG/DL (8.5-10.1) Magnesium Level 1.4 MG/DL (1.8-2.4) L 1.9 MG/DL (1.8-2.4) Total Bilirubin 1.2 MG/DL (0.2-1.0) H 1.0 MG/DL (0.2-1.0) Direct Bilirubin 0.8 MG/DL (0.0-0.3) H Aspartate Amino Transf (AST/SGOT) 41 U/L (15-37) H 30 U/L (15-37) Alanine Aminotransferase (ALT/SGPT) 21 U/L (12-78) 21 U/L (12-78) Alkaline Phosphatase 84 U/L (46-116) 68 U/L (46-116) Total Creatine Kinase 110 U/L (26-308) Troponin I 0.020 ng/mL (0.000-0.056) Pro-B-Type Natriuretic Peptide 3992 pg/mL (0-125) H Total Protein 7.8 G/DL (6.4-8.2) 7.3 G/DL (6.4-8.2) Albumin 2.5 G/DL (3.4-5.0) L 2.2 G/DL (3.4-5.0) L Globulin 5.3 g/dL 5.1 g/dL Albumin/Globulin Ratio 0.5 (1.0-2.7) L 0.4 (1.0-2.7) L Lipase 168 U/L (73-393) Urine Color Brown Urine Appearance Slightly cloudy Urine pH 5 (4.5-8.0) Urine Specific [place] 1.020 (1.005-1.035) Urine Protein 4+ (NEGATIVE) H Urine Glucose (UA) Negative (NEGATIVE) Urine Ketones 1+ (NEGATIVE) H Urine Blood 1+ (NEGATIVE) H Urine Nitrite Negative (NEGATIVE) Urine Bilirubin 1+ (NEGATIVE) H Urine Ictotest Negative (NEGATIVE) Urine Urobilinogen 4 MG/DL (0.0-1.0) H Urine Leukocyte Esterase 1+ (NEGATIVE) H Urine RBC 2-4 /HPF (0 - 2) H Urine WBC 0-2 /HPF (0 - 2) Urine Squamous Epithelial Cells Occasional /LPF Urine Amorphous Sediment Moderate /LPF (NONE) H Urine Bacteria Few /HPF (NONE) [place] Cells 1+ Current Medications Medications (Trade) Dose Ordered Sig/Jonathan Route PRN Reason Start Time Stop Time Status Last Admin Dose Admin Acetaminophen (Tylenol) 650 mg Q6H PRN ORAL Mild Pain/Temp > 100.5 09/16/19 06:45 10/16/19 06:44 Chlorhexidine Gluconate (Meredith-Hex 2%) 1 applic DAILY@199909/16/19 20:00 10/16/19 19:59 Epoetin Phu (Epoetin Phu-EPBX(NON ESRD)) 2,000 unit SUN-SUN-SUN SUBQ 09/15/19 21:00 10/15/19 20:59 09/15/19 20:41 Epoetin Phu (Epoetin Phu-EPBX(NON ESRD)) 3,000 unit SUN-SUN-SUN SUBQ 09/15/19 21:00 10/15/19 20:59 09/15/19 20:41 Heparin Sodium (Porcine) (Heparin 5000 units/ml) 5,000 units EVERY 12 HOURS SUBQ 09/15/19 21:00 10/15/19 20:59 09/15/19 21:43 Hydralazine HCl (Apresoline) 100 mg Q8HR ORAL 09/15/19 22:15 10/15/19 22:14 09/16/19 05:37 Levothyroxine Sodium (Synthroid) 125 mcg ACBREAKFAST ORAL 09/16/19 06:30 10/16/19 06:29 09/16/19 06:29 Linezolid 300 ml @ 300 mls/hr Q12HR IVPB 09/15/19 21:00 09/22/19 20:59 09/16/19 09:16 Metoprolol Tartrate (Lopressor) 100 mg EVERY 12 HOURS ORAL 09/15/19 22:15 10/15/19 22:14 09/16/19 09:16 Nifedipine (Procardia XL) 60 mg DAILY ORAL 09/16/19 09:00 10/16/19 08:59 09/16/19 09:16 Pantoprazole (Protonix) 40 mg DAILY ORAL 09/15/19 17:15 10/15/19 17:14 09/16/19 09:16 Piperacillin Sod/ Tazobactam Sod 3.375 gm/Sodium Chloride 110 ml @ 27.5 mls/hr Q12HR IVPB 09/15/19 21:00 09/22/19 20:59 09/16/19 09:16 Jessica Reyes MD Sep 16, 2019 10:44
[2019-09-16 12:00] VITALS: BP 112/61
--- NOTE | 2019-09-16 12:06 | NUR ---
RD ASSESSMENT & RECOMMENDATIONS SEE CARE ACTIVITY FOR COMPLETE ASSESSMENT DAILY ESTIMATED NEEDS: Needs based on cardiac, renal CKD stage 5 no HD, 58kg abw 25-35 kcals/kg 5659-9913 total kcals .6-1 g protein/kg 35-58 g total protein Fluid per MD NUTRITION DIAGNOSIS: 1) Altered nutrition related lab values r/t renal dysfunction as evidenced by elev creat (4.1 -> 3.5 trend down), elev BUN 43, low Hgb (8.0). CURRENT DIET: Renal , SOFT EASY CHEW PO DIET RECOMMENDATIONS: Liberalized LOW NA w/ continued poor PO/ texture as tolerated ENTERAL NUTRITION RECOMMENDATIONS: * NEEDED * NEPRO @35ml/hr x22 hrs to provide 770ml, 1386 kcal, 62g pro, 560ml free H2o - As needed rec non oral feeds w/ con't poor po intake. - Obtain GI access, start NEPRO @15ml/hr for 6 hrs, advance as tolerated 10ml/hr q4-6 hrs to goal - HOLD TF 1 hr before and after SYNTHROID meds - TF at goal meets 96% est kcal and 107% est pro needs. - Flush per MD, HOB over 30 degrees Monitor for HD, need for TF rate change ADDITIONAL RECOMMENDATIONS: 1) Calibrated bedscale wt for accurate CBW (daily wt d/t h/o poor intake) 2) Add NEPRO BID w/ meals 3) Monitor renal fxn + lytes 4) Monitor PO intake closely 5) Rec liberalized diet for improved PO acceptance 6) PROFESSOR OF RELIGIOUS STUDIES eval for appropriate texture 7) TF recs as above as needed
--- NOTE | 2019-09-16 13:08 | Nephrology Progress Note ---
Assessment/Plan Problem List: (1) CHF exacerbation (2) CKD (chronic kidney disease) stage 5, GFR less than 15 ml/min (3) Anemia in chronic kidney disease (4) Sepsis (5) Anorexia (6) Hypertensive nephrosclerosis Plan G+ cocci could be from picc, possible removal, dhf redose lasix, consider dialysis access soon after sepsis improved Subjective Constitutional: Reports: weakness HEENT: Reports: no symptoms Neurologic/Psychiatric: Reports: pre-existing deficit Objective Objective Last 24 Hour Vital Signs Date Time Temp Pulse Resp B/P (MAP) Pulse Ox O2 Delivery O2 Flow Rate FiO2 09/16/19 11:49 81 09/16/19 09:16 89 151/73 09/16/19 09:16 89 151/73 09/16/19 09:00 Room Air 09/16/19 08:00 98.0 89 18 151/73 (99) 97 09/16/19 07:49 91 09/16/19 05:37 165/85 09/16/19 04:00 98.7 89 19 160/83 (108) 97 09/16/19 04:00 90 09/16/19 00:00 98.0 106 20 160/77 (104) 97 09/16/19 00:00 103 09/15/19 22:27 165/86 09/15/19 22:27 110 165/86 09/15/19 21:00 Room Air 09/15/19 20:00 98.8 109 18 160/86 (110) 98 09/15/19 20:00 107 09/15/19 16:29 89 09/15/19 16:03 Room Air 09/15/19 16:00 98.1 81 18 149/75 (99) 98 09/15/19 15:37 97.8 100 19 142/75 100 Room Air 09/15/19 15:09 97.5 91 24 145/64 100 Room Air Intake and Output 09/15/19 09/16/19 19:00 07:00 Intake Total 2860 ml 650.0 ml Output Total 2000 ml Balance 2860 ml -1350.0 ml Intake Oral 0 ml 240 ml IV Total 2860 ml 410.0 ml Output Urine Total 2000 ml # Voids 2 # Bowel Movements 1 Laboratory Tests 09/16/19 06:12: White Blood Count 12.9H, Red Blood Count 2.70L, Hemoglobin 8.0L, Hematocrit 25.0L, Mean Corpuscular Volume 93, Mean Corpuscular Hemoglobin 29.7, Mean Corpuscular Hemoglobin Concent 32.0, Red Cell Distribution Width 14.5, Platelet Count 163, Mean Platelet Volume 10.7H, Neutrophils (%) (Auto) , Lymphocytes (%) (Auto) , Monocytes (%) (Auto) , Eosinophils (%) (Auto) , Basophils (%) (Auto) , Differential Total Cells Counted 100, Neutrophils % (Manual) 86H, Lymphocytes % (Manual) 8L, Monocytes % (Manual) 6, Eosinophils % (Manual) 0, Basophils % ( Manual) 0, Band Neutrophils 0, Platelet Estimate Adequate, Platelet Morphology Normal, Day Cells 1+, Sodium Level 147H, Potassium Level 4.1, Chloride Level 114H, Carbon Dioxide Level 20L, Anion Gap 14, Blood Urea Nitrogen 43H, Creatinine 3.5H, Estimat Glomerular Filtration Rate , Glucose Level 112H, Calcium Level 9.1, Magnesium Level 1.9, Total Bilirubin 1.0, Aspartate Amino Transf (AST/SGOT) 30, Alanine Aminotransferase (ALT/SGPT) 21, Alkaline Phosphatase 68, Total Protein 7.3, Albumin 2.2L, Globulin 5.1, Albumin/Globulin Ratio 0.4L Height (Feet): 5 Height (Inches): 4.00 Weight (Pounds): 150 General Appearance: alert, confused, mild distress EENT: normal ENT inspection Neck: normal alignment Cardiovascular: normal rate, regular rhythm Respiratory/Chest: rhonchi - bilaterally Abdomen: soft, no organomegaly Extremities: no edema Neurologic: motor weakness Jose Lemus MD Sep 16, 2019 13:08
[2019-09-16] MEDS ORDERED: Tubing IV Secondary IV ONE (15:47)
[2019-09-16 16:00] VITALS: BP 144/68
--- NOTE | 2019-09-16 16:48 | Cardiology Report ---
APPROVED REPORT EKG Measurement Heart [id number] Sinus tachycardia Nonspecific T wave abnormality Abnormal ECG tremor artifact may affect interpreatation
--- NOTE | 2019-09-16 17:18 | General Progress Note ---
Assessment/Plan Status: stable, not improved Assessment/Plan: GI CONSULT Full note dictated. Will d/w family re GT again. Thank you P Jalen Subjective Allergies: Coded Allergies: ERYTHROMYCIN BASE (Unverified Allergy, Intermediate, 07/14/19) Per patient not allergic to medications or food Objective Last 24 Hour Vital Signs Date Time Temp Pulse Resp B/P (MAP) Pulse Ox O2 Delivery O2 Flow Rate FiO2 09/16/19 14:48 144/68 09/16/19 12:00 98.3 83 18 112/61 (78) 98 09/16/19 11:49 81 09/16/19 09:16 89 151/73 09/16/19 09:16 89 151/73 09/16/19 09:00 Room Air 09/16/19 08:00 98.0 89 18 151/73 (99) 97 09/16/19 07:49 91 09/16/19 05:37 165/85 09/16/19 04:00 98.7 89 19 160/83 (108) 97 09/16/19 04:00 90 09/16/19 00:00 98.0 106 20 160/77 (104) 97 09/16/19 00:00 103 09/15/19 22:27 165/86 09/15/19 22:27 110 165/86 09/15/19 21:00 Room Air 09/15/19 20:00 98.8 109 18 160/86 (110) 98 09/15/19 20:00 107 Intake and Output 09/15/19 09/16/19 19:00 07:00 Intake Total 2860 ml 650.0 ml Output Total 2000 ml Balance 2860 ml -1350.0 ml Intake Oral 0 ml 240 ml IV Total 2860 ml 410.0 ml Output Urine Total 2000 ml # Voids 2 # Bowel Movements 1 Laboratory Tests 09/16/19 06:12: White Blood Count 12.9H, Red Blood Count 2.70L, Hemoglobin 8.0L, Hematocrit 25.0L, Mean Corpuscular Volume 93, Mean Corpuscular Hemoglobin 29.7, Mean Corpuscular Hemoglobin Concent 32.0, Red Cell Distribution Width 14.5, Platelet Count 163, Mean Platelet Volume 10.7H, Neutrophils (%) (Auto) , Lymphocytes (%) (Auto) , Monocytes (%) (Auto) , Eosinophils (%) (Auto) , Basophils (%) (Auto) , Differential Total Cells Counted 100, Neutrophils % (Manual) 86H, Lymphocytes % (Manual) 8L, Monocytes % (Manual) 6, Eosinophils % (Manual) 0, Basophils % ( Manual) 0, Band Neutrophils 0, Platelet Estimate Adequate, Platelet Morphology Normal, Day Cells 1+, Sodium Level 147H, Potassium Level 4.1, Chloride Level 114H, Carbon Dioxide Level 20L, Anion Gap 14, Blood Urea Nitrogen 43H, Creatinine 3.5H, Estimat Glomerular Filtration Rate , Glucose Level 112H, Calcium Level 9.1, Magnesium Level 1.9, Total Bilirubin 1.0, Aspartate Amino Transf (AST/SGOT) 30, Alanine Aminotransferase (ALT/SGPT) 21, Alkaline Phosphatase 68, Total Protein 7.3, Albumin 2.2L, Globulin 5.1, Albumin/Globulin Ratio 0.4L Height (Feet): 5 Height (Inches): 4.00 Weight (Pounds): 150 Mina Rao MD Sep 16, 2019 17:18
--- NOTE | 2019-09-16 19:25 | NUR ---
HAND-OFF: Report given to Kate Flores RN. Addendum: 09/16/19 at 8 by LUCY HODGSON RN DR. Hendricks notified of patient's refusal to eat all meals, patient will only drink juice or soda.
--- NOTE | 2019-09-16 19:26 | NUR ---
NURSE NOTES: Received report from Анна NUNEZ. Pt was resting in the bed w.o any acute distress noted. Call light is within reach. Rails are up x3. NO acute distress noted.
[2019-09-16 20:00] VITALS: BP 157/76
[2019-09-16] MEDS ORDERED: Dyna-Hex 2% Top Sol 2oz TOPIC SCH (20:00)
--- NOTE | 2019-09-16 20:45 | Consultation ---
DATE OF CONSULTATION: 09/16/2019 CHIEF COMPLAINT: I was asked to see this patient by Dr. Chema Hendricks for further evaluation of malnutrition and dehydration. HISTORY OF PRESENT ILLNESS: The patient is a debilitated 73-year-old woman, who comes into the hospital with poor p.o. intake and resultant dehydration and vascular compromise. The patient was recently admitted to the hospital with similar issues and poor oral intake. Placement of gastrostomy tube was discussed with the family but they declined to agree with it and therefore the patient was placed on oral feeding program and was discharged home. Now, she returns with continued poor oral intake and despite daily hydration she came to the hospital with the confusion and malnutrition as well as fever and dehydration. The patient has been cultured and she has been treated with antibiotics. She is verbal and responsive, but not very coherent and not much history can be obtained from her. PAST MEDICAL HISTORY: History of respiratory failure, history of facial hematoma, history of rhabdomyolysis, myocardial infarction, history of chronic kidney disease with creatinine which was previously around 2, history of hypertension, stroke, deep vein thrombosis, pericardial effusion, dementia, anemia, failure to thrive, weakness. FAMILY HISTORY: Noncontributory. SOCIAL HISTORY: The patient does not smoke or drink alcohol. REVIEW OF SYSTEMS: Otherwise unobtainable. MEDICATIONS: Noted. PHYSICAL EXAMINATION: GENERAL: Debilitated woman, seen in her room. HEENT: Normocephalic and atraumatic. Dentition is poor. NECK: Supple. CHEST: Clear to auscultation. CARDIOVASCULAR: Revealed regular rate. ABDOMEN: Soft and nontender. EXTREMITIES: Revealed no edema. LABORATORY DATA: Noted. ASSESSMENT: This patient presents for leukocytosis which is improving and lactic acidosis, which is resolved. She has a significant worsening of her underlying azotemia as well as free water deficit. These can all be corrected by intravenous hydration therapy and monitoring, and antibiotics; however, the issue poor oral intake remains the same and I will once again discussed with the patient's family regarding possible gastrostomy tube placement especially given this readmission. RECOMMENDATIONS: 1. Continue IV fluids. 2. Monitor electrolytes. 3. Antibiotics. 4. I will discuss matter with the patient's family. Thank you for asking me to participate in the care of this patient. Mina Rao M.D. DR: Gilda JOB#: [id number] CC: YUE
[2019-09-17] VITALS: BP 152/74
--- NOTE | 2019-09-17 03:45 | Consultation ---
DATE OF CONSULTATION: 09/15/2019 CARDIOLOGY CONSULTATION CONSULTING PHYSICIAN: Lance Rivas M.D. REFERRING PHYSICIAN: Chema Hendricks M.D. REASON FOR CONSULTATION: Severe sepsis in the setting of cardiomyopathy and pericardial effusion. HISTORY OF PRESENT ILLNESS: This 73-year-old female has a history of chronic kidney disease, hypertensive heart disease, and chronic pericardial effusion. She was recently hospitalized and discharged home on IV hydration due to poor intake and recurring dehydration. The patient did not respond adequately and continued to have poor oral intake. Today developing fevers and increasing confusion with leukocytosis and worsening renal failure. PAST MEDICAL HISTORY: Hypertensive heart and renal disease, cerebrovascular disease, history of pericardial effusion, hypothyroidism, degenerative disk disease, and osteoarthritis. ALLERGIES: Erythromycin. MEDICATIONS: Reviewed and reconciled. FAMILY HISTORY: Noncontributory. SOCIAL HISTORY: Negative for smoking, alcohol, or substance abuse. REVIEW OF SYSTEMS: Not obtainable from patient. Pertinent data outlined above from prior records and discussions with her daughter. PHYSICAL EXAMINATION: VITAL SIGNS: Temperature 102, blood pressure 145/64, heart rate 91, respiratory rate 24. GENERAL: Ill appearing. HEENT: Temporal wasting. Arcus senilis. Oropharynx clear. Mucous membranes moist. NECK: Supple. Jugular venous pressure difficult to assess. LUNGS: Diminished breath sounds. No rales. CARDIAC: Regular rhythm and rate. Normal S1, S2 with a 1/6 systolic apical murmur. No rub. ABDOMEN: Obese and soft. EXTREMITIES: No edema. SKIN: There is a PICC line in the right antecubital fossa. LABORATORY AND DIAGNOSTIC DATA: White count 18, hemoglobin 8.8. Sodium 143, potassium 4.4, bicarb 16, BUN 44, creatinine 4.1, magnesium 1.4. Lactic acid 4. Chest x-ray, mild pulmonary venous congestion. EKG is pending. IMPRESSION: 1. Severe sepsis. 2. Acute on chronic renal failure. 3. Acute on chronic diastolic congestive heart failure. 4. Lactic acidosis. 5. History of pericardial effusion. 6. Metabolic encephalopathy. 7. Toxic encephalopathy, possible source of infection is indwelling PICC line. PLAN: 1. Panculture. 2. Broad-spectrum antibiotics. 3. Maintenance hydration. 4. Nutritional support. 5. DVT prophylaxis. 6. Echocardiogram to assess for worsening pericardial fluid and effusion. 7. Consideration to follow for G-tube for adequate nutrition and possibly hemodialysis. Lance Rivas M.D. DR: BELEM JOB#: [id number] CC:
[2019-09-17 04:00] VITALS: BP 159/83
--- NOTE | 2019-09-17 04:45 | Progress Note ---
DATE: 09/16/2019 CARDIOLOGY PROGRESS NOTE SUBJECTIVE: The patient remains withdrawn and lethargic with poor oral intake. She has been on antimicrobials. Cultures are pending. OBJECTIVE: VITAL SIGNS: Temperature 99.9, blood pressure 157/76, heart rate 105, respiratory rate 18, and oxygen saturation on room air adequate. LUNGS: Diminished breath sounds. CARDIAC: Regular with no rub. ABDOMEN: Soft and obese. EXTREMITIES: There is dependent edema. LABORATORY DATA: Lactic acid now normal at 1.2. BUN and creatinine improved to 43/3.5, potassium 4.1, sodium 147, bicarb 20. Albumin 2.2. Hemoglobin 8. IMPRESSION: 1. Severe sepsis. 2. Indwelling central line. 3. Acute on chronic renal failure. 4. Dehydration. 5. Hyponatremia. 6. Hyperchloremia. 7. Resolved lactic acidosis. 8. Continuing metabolic acidosis. 9. Severe protein-calorie malnutrition. 10. Hypertensive heart disease. 11. History of pericardial effusion. 12. Toxic and metabolic encephalopathies. PLAN: 1. Empiric antimicrobials pending cultures. 2. Discontinue IV fluids. 3. Maintenance fluid intake. 4. Protein supplement as tolerated. 5. Consideration for G-tube to follow. 6. Hold diuresis. 7. Titrate antihypertensives. 8. Discuss with aircraft pneudraulics repairer. Lance Rivas M.D. DR: BELEM JOB#: [id number] CC:
[2019-09-17] MEDS: Levothyroxine 125mcg tab ORAL SCH (06:18)
[2019-09-17] MEDS: HydrALAZINE 50mg tab ORAL SCH ×3 (06:18→22:01)
[2019-09-17 07:24] LABS: HEMATOCRIT 27.2 % (37.0-47.0); HEMOGLOBIN 8.7 G/DL (12.0-16.0); MEAN CORPUSCULAR VOLUME 93 FL (80-99); PLATELET COUNT 236 K/UL (150-450); RED BLOOD COUNT 2.91 M/UL (4.20-5.40); RED CELL DISTRIBUTION WIDTH 14.2 % (11.6-14.8); WHITE BLOOD COUNT 13.5 K/UL (4.8-10.8)
--- NOTE | 2019-09-17 07:30 | NUR ---
NURSE NOTES: Received report from ENRIQUE Hammonds. The patient is resting on the bed without acute distress or shortness of breath. The patient's bed in the lowest position, call light in reach, and fall and aspiration precaution reinforced. IV site intact and patent. Will continue plan of care.
[2019-09-17 07:44] LABS: ALANINE AMINOTRANSFERASE 17 U/L (12-78); ALBUMIN 2.2 G/DL (3.4-5.0); ALBUMIN/GLOBULIN RATIO 0.4 (1.0-2.7); ALKALINE PHOSPHATASE 65 U/L (46-116); ANION GAP 16 mmol/L (5-15); ASPARTATE AMINO TRANSFERASE 25 U/L (15-37); BLOOD UREA NITROGEN 44 mg/dL (7-18); CALCIUM 9.4 MG/DL (8.5-10.1); CARBON DIOXIDE 17 MMOL/L (21-32); CHLORIDE 112 MMOL/L (98-107); CREATININE 3.3 MG/DL (0.55-1.30); POTASSIUM 3.9 MMOL/L (3.5-5.1); SODIUM 145 MMOL/L (136-145)
--- NOTE | 2019-09-17 07:59 | NUR ---
HAND-OFF: Report given to Torrie Akers RN.
[2019-09-17 08:00] VITALS: BP 170/90
[2019-09-17] MEDS: Heparin 5000 units/ml inj SUBQ SCH ×2 (08:46→20:54)
--- NOTE | 2019-09-17 09:26 | General Progress Note ---
Assessment/Plan Problem List: (1) Chronic kidney disease, stage III (moderate) ICD Codes: N18.3 - Chronic kidney disease, stage III (moderate) SNOMED: 098074379 (2) Hypertensive nephrosclerosis ICD Codes: I12.9 - Hypertensive chronic kidney disease with stage 1 through stage 4 chronic kidney disease, or unspecified chronic kidney disease SNOMED: 766745102 (3) CKD (chronic kidney disease) stage 4, GFR 15-29 ml/min ICD Codes: N18.4 - Chronic kidney disease, stage 4 (severe) SNOMED: 162386303 (4) Fever ICD Codes: R50.9 - Fever, unspecified SNOMED: 133832663 Qualifiers: Qualified Codes: R50.81 - Fever presenting with conditions classified elsewhere (5) Anorexia ICD Codes: R63.0 - Anorexia SNOMED: 72260483 (6) Hypothyroidism ICD Codes: E03.9 - Hypothyroidism SNOMED: 11355729 (7) Sepsis ICD Codes: A41.9 - Sepsis, unspecified organism SNOMED: 74912841 Qualifiers: Qualified Codes: A41.9 - Sepsis, unspecified organism; R65.20 - Severe sepsis without septic shock; N17.9 - Acute kidney failure, unspecified (8) Abdominal pain in female ICD Codes: R10.9 - Unspecified abdominal pain SNOMED: 71534228 (9) Acute renal failure (ARF) ICD Codes: N17.9 - Acute kidney failure, unspecified SNOMED: 74163416 Qualifiers: Qualified Codes: N17.9 - Acute kidney failure, unspecified Status: stable, not improved Assessment/Plan: cont ivf with bicarb follow up labs renal eval. resume nifedipine for htn iv abx per id follow up cultures may need gt Subjective ROS Limited/Unobtainable: No Constitutional: Reports: malaise, weakness Cardiovascular: Reports: no symptoms Respiratory: Reports: no symptoms Gastrointestinal/Abdominal: Reports: abdominal pain, poor appetite, poor fluid intake Genitourinary: Reports: no symptoms Neurologic/Psychiatric: Reports: pre-existing deficit Endocrine: Reports: no symptoms Hematologic/Lymphatic: Reports: no symptoms Allergies: Coded Allergies: ERYTHROMYCIN BASE (Unverified Allergy, Intermediate, 07/14/19) Per patient not allergic to medications or food All Systems: reviewed and negative except above Subjective +blood cultures. Picc dcd. on iv abx. refusing all po Objective Last 24 Hour Vital Signs Date Time Temp Pulse Resp B/P (MAP) Pulse Ox O2 Delivery O2 Flow Rate FiO2 09/17/19 08:45 105 170/90 09/17/19 08:45 105 170/90 09/17/19 08:00 99.4 105 20 170/90 (116) 96 09/17/19 06:18 159/83 09/17/19 04:00 99.1 94 20 159/83 (108) 97 09/17/19 04:00 89 09/17/19 00:00 98.8 93 20 152/74 (100) 97 09/17/19 00:00 90 09/16/19 21:21 106 157/76 09/16/19 21:20 157/76 09/16/19 21:00 Room Air 09/16/19 20:00 99.9 105 18 157/76 (103) 97 09/16/19 20:00 106 09/16/19 16:00 98.3 85 18 144/68 (93) 98 09/16/19 15:44 84 09/16/19 14:48 144/68 09/16/19 12:00 98.3 83 18 112/61 (78) 98 09/16/19 11:49 81 Intake and Output 09/16/19 09/17/19 18:59 06:59 Intake Total 1010.0 ml 240 ml Output Total 400 ml 400 ml Balance 610.0 ml -160 ml Intake Oral 600 ml 240 ml IV Total 410.0 ml Output Urine Total 400 ml 400 ml # Voids 1 Laboratory Tests 09/17/19 06:40: White Blood Count 13.5H, Red Blood Count 2.91L, Hemoglobin 8.7L, Hematocrit 27.2L, Mean Corpuscular Volume 93, Mean Corpuscular Hemoglobin 30.0, Mean Corpuscular Hemoglobin Concent 32.1, Red Cell Distribution Width 14.2, Platelet Count 236, Mean Platelet Volume 10.5H, Neutrophils (%) (Auto) , Lymphocytes (%) (Auto) , Monocytes (%) (Auto) , Eosinophils (%) (Auto) , Basophils (%) (Auto) , Differential Total Cells Counted 100, Neutrophils % (Manual) 81H, Lymphocytes % (Manual) 11L, Monocytes % (Manual) 8, Eosinophils % (Manual) 0, Basophils % ( Manual) 0, Band Neutrophils 0, Platelet Estimate Adequate, Platelet Morphology Normal, Anisocytosis 1+, Sodium Level 145, Potassium Level 3.9, Chloride Level 112H, Carbon Dioxide Level 17L, Anion Gap 16H, Blood Urea Nitrogen 44H, Creatinine 3.3H, Estimat Glomerular Filtration Rate , Glucose Level 101, Calcium Level 9.4, Total Bilirubin 1.0, Aspartate Amino Transf (AST/SGOT) 25, Alanine Aminotransferase (ALT/SGPT) 17, Alkaline Phosphatase 65, Total Protein 7.6, Albumin 2.2L, Globulin 5.4, Albumin/Globulin Ratio 0.4L Height (Feet): 5 Height (Inches): 4.00 Weight (Pounds): 178 General Appearance: WD/WN, alert Neck: supple Cardiovascular: normal rate, regular rhythm Respiratory/Chest: chest wall non-tender, lungs clear, normal breath sounds, no respiratory distress Abdomen: normal bowel sounds, non tender, soft, no organomegaly Edema: no edema noted Arm (L), no edema noted Arm (R), no edema noted Leg (L), no edema noted Leg (R), no edema noted Pedal (L), no edema noted Pedal (R), no edema noted Generalized Chema Hendricks MD Sep 17, 2019 09:26
--- NOTE | 2019-09-17 10:37 | Infectious Diseases Prog Note ---
Assessment/Plan Assessment/Plan antibiotics : linezolid A 1. staph aureus sepsis, likely catheter infection s/p removal of PICC line 2. fever improving 3. renal failure improving 4. leucocytosis 5. hypertension 6. dementia 7. CHF P 1. continue linezolid 2. will follow up cultures 3. 2 d echo Subjective Constitutional: Denies: fever, chills Respiratory: Denies: shortness of breath, dry cough Gastrointestinal/Abdominal: Denies: nausea, vomiting, diarrhea Musculoskeletal: Reports: pain - mild abdominal Allergies: Coded Allergies: ERYTHROMYCIN BASE (Unverified Allergy, Intermediate, 07/14/19) Per patient not allergic to medications or food Objective Vital Signs Last 24 Hour Vital Signs Date Time Temp Pulse Resp B/P (MAP) Pulse Ox O2 Delivery O2 Flow Rate FiO2 09/17/19 08:45 105 170/90 09/17/19 08:45 105 170/90 09/17/19 08:00 99.4 105 20 170/90 (116) 96 09/17/19 06:18 159/83 09/17/19 04:00 99.1 94 20 159/83 (108) 97 09/17/19 04:00 89 09/17/19 00:00 98.8 93 20 152/74 (100) 97 09/17/19 00:00 90 09/16/19 21:21 106 157/76 09/16/19 21:20 157/76 09/16/19 21:00 Room Air 09/16/19 20:00 99.9 105 18 157/76 (103) 97 09/16/19 20:00 106 09/16/19 16:00 98.3 85 18 144/68 (93) 98 09/16/19 15:44 84 09/16/19 14:48 144/68 09/16/19 12:00 98.3 83 18 112/61 (78) 98 09/16/19 11:49 81 Height (Feet): 5 Height (Inches): 4.00 Weight (Pounds): 178 Respiratory/Chest: lungs clear Cardiovascular: normal rate, regular rhythm, no gallop/murmur Abdomen: tender - mild Extremities: no edema Microbiology Date/Time Source Procedure Growth Status 09/15/19 11:19 Blood Blood Culture - Preliminary Staphylococcus Aureus Resulted 09/15/19 11:15 Blood Blood Culture - Preliminary Staphylococcus Aureus Resulted 09/15/19 11:15 Nasal Nares - Final Complete 09/15/19 11:15 Nasal Nares - Final Complete 09/16/19 02:11 Rectum Received Laboratory Tests Test 09/17/19 06:40 White Blood Count 13.5 K/UL (4.8-10.8) H Red Blood Count 2.91 M/UL (4.20-5.40) L Hemoglobin 8.7 G/DL (12.0-16.0) L Hematocrit 27.2 % (37.0-47.0) L Mean Corpuscular Volume 93 FL (80-99) Mean Corpuscular Hemoglobin 30.0 PG (27.0-31.0) Mean Corpuscular Hemoglobin Concent 32.1 G/DL (32.0-36.0) Red Cell Distribution Width 14.2 % (11.6-14.8) Platelet Count 236 K/UL (150-450) Mean Platelet Volume 10.5 FL (6.5-10.1) H Neutrophils (%) (Auto) % (45.0-75.0) Lymphocytes (%) (Auto) % (20.0-45.0) Monocytes (%) (Auto) % (1.0-10.0) Eosinophils (%) (Auto) % (0.0-3.0) Basophils (%) (Auto) % (0.0-2.0) Differential Total Cells Counted 100 Neutrophils % (Manual) 81 % (45-75) H Lymphocytes % (Manual) 11 % (20-45) L Monocytes % (Manual) 8 % (1-10) Eosinophils % (Manual) 0 % (0-3) Basophils % (Manual) 0 % (0-2) Band Neutrophils 0 % (0-8) Platelet Estimate Adequate Platelet Morphology Normal Anisocytosis 1+ Sodium Level 145 MMOL/L (136-145) Potassium Level 3.9 MMOL/L (3.5-5.1) Chloride Level 112 MMOL/L (98-107) H Carbon Dioxide Level 17 MMOL/L (21-32) L Anion Gap 16 mmol/L (5-15) H Blood Urea Nitrogen 44 mg/dL (7-18) H Creatinine 3.3 MG/DL (0.55-1.30) H Estimat Glomerular Filtration Rate mL/min (>60) Glucose Level 101 MG/DL (74-106) Calcium Level 9.4 MG/DL (8.5-10.1) Total Bilirubin 1.0 MG/DL (0.2-1.0) Aspartate Amino Transf (AST/SGOT) 25 U/L (15-37) Alanine Aminotransferase (ALT/SGPT) 17 U/L (12-78) Alkaline Phosphatase 65 U/L (46-116) Total Protein 7.6 G/DL (6.4-8.2) Albumin 2.2 G/DL (3.4-5.0) L Globulin 5.4 g/dL Albumin/Globulin Ratio 0.4 (1.0-2.7) L Current Medications Medications (Trade) Dose Ordered Sig/Jonathan Route PRN Reason Start Time Stop Time Status Last Admin Dose Admin Acetaminophen (Tylenol) 650 mg Q6H PRN ORAL Mild Pain/Temp > 100.5 09/16/19 06:45 10/16/19 06:44 Epoetin Phu (Epoetin Phu-EPBX(NON ESRD)) 2,000 unit SUN-SUN-SUN SUBQ 09/15/19 21:00 10/15/19 20:59 09/15/19 20:41 Epoetin Phu (Epoetin Phu-EPBX(NON ESRD)) 3,000 unit SUN-SUN-SUN SUBQ 09/15/19 21:00 10/15/19 20:59 09/15/19 20:41 Heparin Sodium (Porcine) (Heparin 5000 units/ml) 5,000 units EVERY 12 HOURS SUBQ 09/15/19 21:00 10/15/19 20:59 09/17/19 08:46 Hydralazine HCl (Apresoline) 100 mg Q8HR ORAL 09/15/19 22:15 10/15/19 22:14 09/17/19 06:18 Levothyroxine Sodium (Synthroid) 125 mcg ACBREAKFAST ORAL 09/16/19 06:30 10/16/19 06:29 09/17/19 06:18 Linezolid 300 ml @ 300 mls/hr Q12HR IVPB 09/15/19 21:00 09/22/19 20:59 09/17/19 08:45 Metoprolol Tartrate (Lopressor) 100 mg EVERY 12 HOURS ORAL 09/15/19 22:15 10/15/19 22:14 09/17/19 08:45 Nifedipine (Procardia XL) 60 mg DAILY ORAL 09/16/19 09:00 10/16/19 08:59 09/17/19 08:45 Pantoprazole (Protonix) 40 mg DAILY ORAL 09/15/19 17:15 10/15/19 17:14 09/17/19 08:46 Jessica Reyes MD Sep 17, 2019 10:37
[2019-09-17 12:00] VITALS: BP 120/70
--- NOTE | 2019-09-17 12:00 | NUR ---
NURSE NOTES: The patient is stable without acute distress or shortness of breath. The patient's bed in the lowest position, call light in reach, and fall and aspiration precaution reinforced. Encouraged the patient for eating as the patient has poor appetite. As the patient pulled out the IV, new IV inserted contestant coordinator. Will continue plan of care.
--- NOTE | 2019-09-17 13:35 | NUR ---
CASE MANAGEMENT:REVIEW 73 YR OLD FEMALE FROM HOME TO ER WITH FAMILY CC: GENERALIZED WEAKNESS. LETHARGIC SI: SEPSIS. FEVER. ACUTE RENAL FAILURE 104.0 129 22 144/78 95% ON RA WBC+18.3 H/H-8.8/28.0 BUN+44 CR+4.1 IS: 2L NS BOLUS IV CEFEPIME 1L NS BOLUS TYLENOL NM CXR COOLING MEASURES BLOOD CX : TELEMETRY STATUS DCP: FROM HOME WITH PICC LINE INTERQUAL CRITERIA MET
--- NOTE | 2019-09-17 14:53 | Cardiology Report ---
APPROVED REPORT EXAM: Two-dimensional and M-mode echocardiogram with Doppler and color Doppler. INDICATION Endocarditis M-Mode DIMENSIONS IVSd1.0 (0.7-1.1cm)Left Atrium (MM)2.9 (1.6-4.0cm) LVDd4.1 (3.5-5.6cm)Aortic Root2.4 (2.0-3.7cm) PWd1.1 (0.7-1.1cm)Aortic Cusp Exc.1.6 (1.5-2.0cm) LVDs2.9 (2.5-4.0cm) PWs1.6 cm Normal left ventricular chamber size, systolic function and wall motion. Left ventricular ejection fraction estimated to be 50-55 %. Mild to moderate pericardial effusion without evidence of tamponade. All other cardiac chamber sizes are within normal limits. Focal aortic valve sclerosis with adequate cusp excursion. Thickened mitral valve leaflets with normal excursion. Mitral annulus and aortic root calcification. Normal pulmonic valve structure. Normal tricuspid valve structure. IVC at normal size with physiologic collapse. A color flow and spectral Doppler study was performed and revealed: Mild aortic regurgitation. Mitral diastolic velocities suggest reduced left ventricular relaxation c/w mild LV diastolic dysfunction (Grade I ). Trace mitral regurgitation. Mild tricuspid regurgitation. Tricuspid systolic velocities suggests peak right ventricular systolic pressure of 14 mmHg. Pulmonic regurgitation present.
[2019-09-17 16:00] VITALS: BP 146/76
--- NOTE | 2019-09-17 18:00 | NUR ---
NURSE NOTES: The patient is stable without acute distress or shortness of breath. Will continue plan of care.
--- NOTE | 2019-09-17 19:20 | NUR ---
HAND-OFF: Report given to ENRIQUE Rice. The patient is resting on the bed without acute distress or shortness of breath. The patient's bed in the lowest position, call light in reach, and fall and aspiration precaution reinforced. IV site intact and patent. Endorsed plan of care.
--- NOTE | 2019-09-17 19:30 | NUR ---
NURSE NOTES: Received patient from ENRIQUE Desir. Patient alert, talkative, and resting in bed comfortably. No sings of shortness of breath, distress, or pain noted. Patient able to make needs known to a limited degree, confused at times. IV site checked, intact and patent, no signs of bleeding, erythema, or infiltration noted. Bed in lowest position, brakes on, side rails up x3, and call light within reach. Bed alarm on. Will continue with plan of care.
[2019-09-17 20:00] VITALS: BP 140/66
[2019-09-17] MEDS: Epoetin Alfa-EPBX (NON ESRD) 2000 units/ml vial SUBQ SCH (20:52)
[2019-09-17] MEDS: Epoetin Alfa-EPBX (NON ESRD) 3000 units/ml vial SUBQ SCH (20:52)
--- NOTE | 2019-09-17 21:30 | NUR ---
NURSE NOTES: Received call from Dr. Rao regarding orders. Noted and carried out.
--- NOTE | 2019-09-17 21:33 | Nephrology Progress Note ---
Assessment/Plan Problem List: (1) CHF exacerbation (2) CKD (chronic kidney disease) stage 5, GFR less than 15 ml/min (3) Anemia in chronic kidney disease (4) Sepsis (5) Anorexia (6) Hypertensive nephrosclerosis Plan G+ cocci could be from picc, s/p removal, chf consider dialysis access soon after sepsis improved Subjective Constitutional: Reports: weakness HEENT: Reports: no symptoms Genitourinary: Reports: incontinence Neurologic/Psychiatric: Reports: pre-existing deficit Objective Objective Last 24 Hour Vital Signs Date Time Temp Pulse Resp B/P (MAP) Pulse Ox O2 Delivery O2 Flow Rate FiO2 09/17/19 20:53 109 140/66 09/17/19 16:00 88 09/17/19 16:00 99.0 86 18 146/76 (99) 99 09/17/19 14:20 147/76 09/17/19 12:00 77 09/17/19 12:00 98.9 78 20 120/70 (87) 96 09/17/19 09:00 Room Air 09/17/19 08:45 105 170/90 09/17/19 08:45 105 170/90 09/17/19 08:00 100 09/17/19 08:00 99.4 105 20 170/90 (116) 96 09/17/19 06:18 159/83 09/17/19 04:00 99.1 94 20 159/83 (108) 97 09/17/19 04:00 89 09/17/19 00:00 98.8 93 20 152/74 (100) 97 09/17/19 00:00 90 Intake and Output 09/16/19 09/17/19 19:00 07:00 Intake Total 1010.0 ml 240 ml Output Total 400 ml 400 ml Balance 610.0 ml -160 ml Intake Oral 600 ml 240 ml IV Total 410.0 ml Output Urine Total 400 ml 400 ml # Voids 1 Laboratory Tests 09/17/19 06:40: White Blood Count 13.5H, Red Blood Count 2.91L, Hemoglobin 8.7L, Hematocrit 27.2L, Mean Corpuscular Volume 93, Mean Corpuscular Hemoglobin 30.0, Mean Corpuscular Hemoglobin Concent 32.1, Red Cell Distribution Width 14.2, Platelet Count 236, Mean Platelet Volume 10.5H, Neutrophils (%) (Auto) , Lymphocytes (%) (Auto) , Monocytes (%) (Auto) , Eosinophils (%) (Auto) , Basophils (%) (Auto) , Differential Total Cells Counted 100, Neutrophils % (Manual) 81H, Lymphocytes % (Manual) 11L, Monocytes % (Manual) 8, Eosinophils % (Manual) 0, Basophils % ( Manual) 0, Band Neutrophils 0, Platelet Estimate Adequate, Platelet Morphology Normal, Anisocytosis 1+, Sodium Level 145, Potassium Level 3.9, Chloride Level 112H, Carbon Dioxide Level 17L, Anion Gap 16H, Blood Urea Nitrogen 44H, Creatinine 3.3H, Estimat Glomerular Filtration Rate , Glucose Level 101, Calcium Level 9.4, Total Bilirubin 1.0, Aspartate Amino Transf (AST/SGOT) 25, Alanine Aminotransferase (ALT/SGPT) 17, Alkaline Phosphatase 65, Total Protein 7.6, Albumin 2.2L, Globulin 5.4, Albumin/Globulin Ratio 0.4L Height (Feet): 5 Height (Inches): 4.00 Weight (Pounds): 178 General Appearance: alert, confused, morbidly obese EENT: normal ENT inspection Neck: normal alignment Cardiovascular: normal rate, regular rhythm Respiratory/Chest: lungs clear Abdomen: non tender, soft, no organomegaly Extremities: trace edema Neurologic: motor weakness Jose Lemus MD Sep 17, 2019 21:33
--- NOTE | 2019-09-17 21:35 | NUR ---
NURSE NOTES: Called patient's daughter regarding g-tube procedure, left voicemail. Awaiting callback.
--- NOTE | 2019-09-17 22:44 | General Progress Note ---
Assessment/Plan Status: stable, not improved Assessment/Plan: GI CONSULT Full note dictated. Assessment - Anorexia - malnutrition - renal failure - OBS - resolved lactic acidosis Recommendations - IVF - follow labs - abx per ID - PEG in am Subjective Allergies: Coded Allergies: ERYTHROMYCIN BASE (Unverified Allergy, Intermediate, 07/14/19) Per patient not allergic to medications or food Subjective more awake and interactive today d/w patient's daughter re PEG tube indications, alternatives, complications explained Agreed to proceed daughter requests SNF placement Objective Last 24 Hour Vital Signs Date Time Temp Pulse Resp B/P (MAP) Pulse Ox O2 Delivery O2 Flow Rate FiO2 09/17/19 22:01 134/60 09/17/19 20:53 109 140/66 09/17/19 16:00 88 09/17/19 16:00 99.0 86 18 146/76 (99) 99 09/17/19 14:20 147/76 09/17/19 12:00 77 09/17/19 12:00 98.9 78 20 120/70 (87) 96 09/17/19 09:00 Room Air 09/17/19 08:45 105 170/90 09/17/19 08:45 105 170/90 09/17/19 08:00 100 09/17/19 08:00 99.4 105 20 170/90 (116) 96 09/17/19 06:18 159/83 09/17/19 04:00 99.1 94 20 159/83 (108) 97 09/17/19 04:00 89 09/17/19 00:00 98.8 93 20 152/74 (100) 97 09/17/19 00:00 90 Intake and Output 09/16/19 09/17/19 19:00 07:00 Intake Total 1010.0 ml 240 ml Output Total 400 ml 400 ml Balance 610.0 ml -160 ml Intake Oral 600 ml 240 ml IV Total 410.0 ml Output Urine Total 400 ml 400 ml # Voids 1 Laboratory Tests 09/17/19 06:40: White Blood Count 13.5H, Red Blood Count 2.91L, Hemoglobin 8.7L, Hematocrit 27.2L, Mean Corpuscular Volume 93, Mean Corpuscular Hemoglobin 30.0, Mean Corpuscular Hemoglobin Concent 32.1, Red Cell Distribution Width 14.2, Platelet Count 236, Mean Platelet Volume 10.5H, Neutrophils (%) (Auto) , Lymphocytes (%) (Auto) , Monocytes (%) (Auto) , Eosinophils (%) (Auto) , Basophils (%) (Auto) , Differential Total Cells Counted 100, Neutrophils % (Manual) 81H, Lymphocytes % (Manual) 11L, Monocytes % (Manual) 8, Eosinophils % (Manual) 0, Basophils % ( Manual) 0, Band Neutrophils 0, Platelet Estimate Adequate, Platelet Morphology Normal, Anisocytosis 1+, Sodium Level 145, Potassium Level 3.9, Chloride Level 112H, Carbon Dioxide Level 17L, Anion Gap 16H, Blood Urea Nitrogen 44H, Creatinine 3.3H, Estimat Glomerular Filtration Rate , Glucose Level 101, Calcium Level 9.4, Total Bilirubin 1.0, Aspartate Amino Transf (AST/SGOT) 25, Alanine Aminotransferase (ALT/SGPT) 17, Alkaline Phosphatase 65, Total Protein 7.6, Albumin 2.2L, Globulin 5.4, Albumin/Globulin Ratio 0.4L Height (Feet): 5 Height (Inches): 4.00 Weight (Pounds): 178 Objective WDWN AA woman NCAT supple CTA RR abd sodt nt no edema Mina Rao MD Sep 17, 2019 22:44
[2019-09-18] VITALS (10 sets, daily range): BP systolic 131–151; BP diastolic 67–81
--- NOTE | 2019-09-18 01:15 | Progress Note ---
DATE: 09/17/2019 CARDIOLOGY PROGRESS NOTE SUBJECTIVE: The patient complains of abdominal pain. No chest pain. No shortness of breath. She has a poor appetite. She remains quite weak. Antihypertensive regimen is being titrated. OBJECTIVE: VITAL SIGNS: Blood pressure 170/90, pulse 105, respirations 20, and temperature 99.9 max. LUNGS: Diminished breath sounds. Few rhonchi. HEART: Regular rhythm and rate. Normal S1, S2. There is a 1/6 systolic murmur at apex. ABDOMEN: Soft. EXTREMITIES: A 1+ dependent edema. DIAGNOSTIC DATA: Echocardiogram reveals moderate pericardial effusion. No tamponade. PA systolic pressure is normal and ejection fraction is about 55% with normal wall motion. IMPRESSION: 1. Anorexia. 2. Severe protein-calorie malnutrition. 3. Sepsis. 4. Recurring pericardial effusion. 5. Possible uremic. 6. Chronic kidney disease stage 5. 7. Hypertensive heart disease. 8. Acute on chronic diastolic congestive heart failure. 9. Status post removal of infected PICC line. Source of Staph sepsis and bacteremia. PLAN: 1. blood cultures. 2. Consider LUCA for persistent bacteremia. 3. Stable from cardiovascular standpoint for G-tube placement under usual anesthesia. 4. DVT and stress ulcer prophylaxis. 5. Titration of antihypertensive medications. 6. Consideration for hemodialysis in this near future if no improvement in clinical parameters. Lance Rivas M.D. DR: GRACIELA JOB#: [id number] CC:
[2019-09-18] MEDS: Levothyroxine 125mcg tab ORAL SCH (06:33)
[2019-09-18] MEDS: HydrALAZINE 50mg tab ORAL SCH (06:33)
[2019-09-18 07:13] LABS: BASOPHILS % (AUTO) 0.5 % (0.0-2.0); EOSINOPHILS % (AUTO) 0.3 % (0.0-3.0); HEMATOCRIT 27.2 % (37.0-47.0); HEMOGLOBIN 8.9 G/DL (12.0-16.0); LYMPHOCYTES % (AUTO) 9.7 % (20.0-45.0); MEAN CORPUSCULAR VOLUME 92 FL (80-99); MONOCYTES % (AUTO) 7.3 % (1.0-10.0); NEUTROPHILS % (AUTO) 82.1 % (45.0-75.0); PLATELET COUNT 263 K/UL (150-450); RED BLOOD COUNT 2.96 M/UL (4.20-5.40); RED CELL DISTRIBUTION WIDTH 14.7 % (11.6-14.8); WHITE BLOOD COUNT 11.7 K/UL (4.8-10.8)
--- NOTE | 2019-09-18 07:15 | NUR ---
HAND-OFF: Report given to ENRIQUE Queen. Plan of care endorsed.
[2019-09-18 07:30] LABS: ALANINE AMINOTRANSFERASE 15 U/L (12-78); ALBUMIN 2.1 G/DL (3.4-5.0); ALBUMIN/GLOBULIN RATIO 0.4 (1.0-2.7); ALKALINE PHOSPHATASE 68 U/L (46-116); ANION GAP 16 mmol/L (5-15); ASPARTATE AMINO TRANSFERASE 33 U/L (15-37); BILIRUBIN,TOTAL 0.8 MG/DL (0.2-1.0); BLOOD UREA NITROGEN 58 mg/dL (7-18); CALCIUM 9.3 MG/DL (8.5-10.1); CARBON DIOXIDE 18 MMOL/L (21-32); CHLORIDE 112 MMOL/L (98-107); CREATININE 4.2 MG/DL (0.55-1.30); POTASSIUM 4.1 MMOL/L (3.5-5.1); SODIUM 146 MMOL/L (136-145)
[2019-09-18 07:50] LABS: INR 1.1 (0.9-1.1)
--- NOTE | 2019-09-18 08:00 | NUR ---
NURSE NOTES: Pt is npo at this time due to a Gtube procedure, pt is Ox3 calm and cooperative, pt is bed bound and will require turning Q2 or less, pt has purewick on due to incontinence, pt stated she like her medication crushed, IV intact and patent, pt denies pain, no s/s of distress or sob noted.
[2019-09-18] MEDS ORDERED: ceFAZolin sod 1 GM in D5W 55 ML IVPB ONE (09:00)
[2019-09-18] MEDS: Heparin 5000 units/ml inj SUBQ SCH ×2 (09:34→20:26)
[2019-09-18] MEDS ORDERED: fentaNYL 100 mcg/2 mL IV ONE (10:41)
[2019-09-18] MEDS ORDERED: NS 500ML IVPB ONE (10:58)
[2019-09-18] MEDS ORDERED: Propofol 200mg/20ml IV ONE (11:00)
--- NOTE | 2019-09-18 11:07 | Anethesia Preoperative Eval ---
Anesthesia Pre-op PMH/ROS General Date of Evaluation: Sep 18, 2019 Time of Evaluation: 11:03 Anesthesiologist: Nivia ASA Score: ASA 4 Mallampati Score Class I : Soft palate, uvula, fauces, pillars visible Class II: Soft palate, uvula, fauces visible Class III: Soft palate, base of uvula visible Class IV: Only hard plate visible Mallampati Classification: Class III Surgeon: Noemi Diagnosis: Dysphagia Surgical Procedure: EGD PEG tube placement Anesthesia History: none Family History: no anesthesia problems Allergies: Coded Allergies: ERYTHROMYCIN BASE (Unverified Allergy, Intermediate, 07/14/19) Per patient not allergic to medications or food Medications: see eMAR Patient NPO?: Yes Past Medical History Cardiovascular: Reports: HTN; Denies: CAD, [place], valve dz, arrhythmia, other Pulmonary: Reports: other - h/o RF; Denies: asthma, COPD, SACHIN Gastrointestinal/Genitourinary: Reports: GERD, CRI, other - failure to thrive Neurologic/Psychiatric: Reports: dementia, CVA; Denies: depression/anxiety, TIA, other Endocrine: Reports: DM, hypothyroidism; Denies: steroids, other HEENT: Denies: cataract (L), cataract (R), glaucoma, [place] (L), [place]ERV[place] (R), other Hematology/Immune: Reports: anemia - of chronic d-s; Denies: DVT, bleeding disorder, other Other: obesity - recent weight loss PMH Narrative: as above PSxH Narrative: Appendectomy Anesthesia Pre-op Phys. Exam Physician Exam Last Vital Signs Date Time Temp Pulse Resp B/P (MAP) Pulse Ox O2 Delivery O2 Flow Rate FiO2 09/18/19 09:34 88 151/81 09/18/19 08:25 Room Air 09/18/19 08:06 98.7 20 98 Constitutional: NAD Neurologic: other - unable to obtaine Cardiovascular: RRR Respiratory: other - diminished breath sounds Gastrointestinal: S/NT/ND Airway Exam Mallampati Score: Class III MO: limited Neck: stiff ROM: limited Teeth: missing Dentures: no upper, no lower Anesthesia Pre-op A/P Labs Hematology Test 09/18/19 05:57 White Blood Count 11.7 K/UL (4.8-10.8) H Red Blood Count 2.96 M/UL (4.20-5.40) L Hemoglobin 8.9 G/DL (12.0-16.0) L Hematocrit 27.2 % (37.0-47.0) L Mean Corpuscular Volume 92 FL (80-99) Mean Corpuscular Hemoglobin 30.1 PG (27.0-31.0) Mean Corpuscular Hemoglobin Concent 32.8 G/DL (32.0-36.0) Red Cell Distribution Width 14.7 % (11.6-14.8) Platelet Count 263 K/UL (150-450) Mean Platelet Volume 9.3 FL (6.5-10.1) Neutrophils (%) (Auto) 82.1 % (45.0-75.0) H Lymphocytes (%) (Auto) 9.7 % (20.0-45.0) L Monocytes (%) (Auto) 7.3 % (1.0-10.0) Eosinophils (%) (Auto) 0.3 % (0.0-3.0) Basophils (%) (Auto) 0.5 % (0.0-2.0) Coagulation Test 09/18/19 05:57 Prothrombin Time 12.0 SEC (9.30-11.50) H Prothromb Time International Ratio 1.1 (0.9-1.1) Activated Partial Thromboplast Time 31 SEC (23-33) Chemistry Test 09/18/19 05:57 Sodium Level 146 MMOL/L (136-145) H Potassium Level 4.1 MMOL/L (3.5-5.1) Chloride Level 112 MMOL/L (98-107) H Carbon Dioxide Level 18 MMOL/L (21-32) L Anion Gap 16 mmol/L (5-15) H Blood Urea Nitrogen 58 mg/dL (7-18) H Creatinine 4.2 MG/DL (0.55-1.30) H Estimat Glomerular Filtration Rate mL/min (>60) Glucose Level 119 MG/DL (74-106) H Calcium Level 9.3 MG/DL (8.5-10.1) Total Bilirubin 0.8 MG/DL (0.2-1.0) Aspartate Amino Transf (AST/SGOT) 33 U/L (15-37) Alanine Aminotransferase (ALT/SGPT) 15 U/L (12-78) Alkaline Phosphatase 68 U/L (46-116) Total Protein 7.4 G/DL (6.4-8.2) Albumin 2.1 G/DL (3.4-5.0) L Globulin 5.3 g/dL Albumin/Globulin Ratio 0.4 (1.0-2.7) L Risk Assessment & Plan Assessment: ASA 4 Plan: MAC Status Change Before Surgery: No Pre-Antibiotics Drug: as above Ravinder Gonzáles MD Sep 18, 2019 11:07
--- NOTE | 2019-09-18 11:07 | General Progress Note ---
Assessment/Plan Status: stable, not improved Assessment/Plan: Assessment - Anemia - Anorexia - malnutrition - renal failure - OBS - resolved lactic acidosis Recommendations - IVF - follow labs - abx per ID - EGD / PEG today Subjective Allergies: Coded Allergies: ERYTHROMYCIN BASE (Unverified Allergy, Intermediate, 07/14/19) Per patient not allergic to medications or food Subjective more awake and interactive today d/w cardiology and ID NPO for EGD / PEG Objective Last 24 Hour Vital Signs Date Time Temp Pulse Resp B/P (MAP) Pulse Ox O2 Delivery O2 Flow Rate FiO2 09/18/19 09:34 88 151/81 09/18/19 09:34 88 151/81 09/18/19 08:25 Room Air 09/18/19 08:06 98.7 88 20 151/81 (104) 98 09/18/19 07:40 92 09/18/19 06:33 153/72 09/18/19 04:00 93 09/18/19 04:00 98.3 98 20 148/76 (100) 96 09/18/19 00:00 108 09/18/19 00:00 99.5 105 20 143/77 (99) 96 09/17/19 22:01 134/60 09/17/19 21:00 Room Air 09/17/19 20:53 109 140/66 09/17/19 20:00 99.0 109 20 140/66 (90) 96 09/17/19 20:00 103 09/17/19 16:00 88 09/17/19 16:00 99.0 86 18 146/76 (99) 99 09/17/19 14:20 147/76 09/17/19 12:00 77 09/17/19 12:00 98.9 78 20 120/70 (87) 96 Intake and Output 09/17/19 09/18/19 18:59 06:59 Intake Total 900 ml Output Total 800 ml 700 ml Balance 100 ml -700 ml Intake Oral 900 ml Output Urine Total 800 ml 700 ml # Bowel Movements 1 Laboratory Tests 09/18/19 05:57: White Blood Count 11.7H, Red Blood Count 2.96L, Hemoglobin 8.9L, Hematocrit 27.2L, Mean Corpuscular Volume 92, Mean Corpuscular Hemoglobin 30.1, Mean Corpuscular Hemoglobin Concent 32.8, Red Cell Distribution Width 14.7, Platelet Count 263, Mean Platelet Volume 9.3, Neutrophils (%) (Auto) 82.1H, Lymphocytes ( %) (Auto) 9.7L, Monocytes (%) (Auto) 7.3, Eosinophils (%) (Auto) 0.3, Basophils (%) (Auto) 0.5, Prothrombin Time 12.0H, Prothromb Time International Ratio 1.1, Activated Partial Thromboplast Time 31, Sodium Level 146H, Potassium Level 4.1, Chloride Level 112H, Carbon Dioxide Level 18L, Anion Gap 16H, Blood Urea Nitrogen 58H, Creatinine 4.2H, Estimat Glomerular Filtration Rate , Glucose Level 119H, Calcium Level 9.3, Total Bilirubin 0.8, Aspartate Amino Transf (AST/ SGOT) 33, Alanine Aminotransferase (ALT/SGPT) 15, Alkaline Phosphatase 68, Total Protein 7.4, Albumin 2.1L, Globulin 5.3, Albumin/Globulin Ratio 0.4L Height (Feet): 5 Height (Inches): 3.00 Weight (Pounds): 177 Objective WDWN AA woman NCAT supple CTA RR abd sodt nt no edema Mina Rao MD Sep 18, 2019 11:07
--- NOTE | 2019-09-18 11:07 | Pre-Procedure Note/Attestation ---
Pre-Procedure Note/Attestation Complete Prior to Procedure Planned Procedure: not applicable Procedure Narrative: esophagogastroduodenoscopy peg Indications for Procedure Pre-Operative Diagnosis: anorexia Attestation I attest that I discussed the nature of the procedure; its benefits; risks and complications; and alternatives (and the risks and benefits of such alternatives ), prior to the procedure, with the patient (or the patient's legal phone representative). I attest that, if there was a reasonable possibility of needing a blood transfusion, the patient (or the patient's legal phone representative) was given the [facility] standardized written summary, pursuant to the [place] Jakub Blood Safety Act ([place] Health and Safety Code # 1645, as amended). I attest that I re-evaluated the patient just prior to the surgery and that there has been no change in the patient's H&P, except as documented below: Mina Rao MD Sep 18, 2019 11:07
--- NOTE | 2019-09-18 11:34 | Immediate Post-Op Evaluation ---
Immediate Post-Op Evalulation Immediate Post-Op Evalulation Procedure: EGD PEG tube placement Date of Evaluation: Sep 18, 2019 Time of Evaluation: 11:33 IV Fluids: 200 Blood Products: none Estimated Blood Loss: min Urinary Output: none Blood Pressure Systolic: 123 Blood Pressure Diastolic: 74 Pulse Rate: 72 Respiratory Rate: 22 O2 Sat by Pulse Oximetry: 99 Temperature (Fahrenheit): 97.6 Pain Score (1-10): 2 Nausea: No Vomiting: No Patient Status: reacts, patent, none Hydration Status: adequate Ravinder Gonzáles MD Sep 18, 2019 11:33
--- NOTE | 2019-09-18 11:46 | Endoscopy Procedure Note ---
Endoscopy Procedure Note General Indication for Procedure: anemia, anorexia Procedures Performed: EGD, PEG Operative Findings/Diagnosis: intestinal melanosis, bx, PEG Specimen: yes Pt Tolerated Procedure Well: Yes Estimated Blood Loss: none Anesthesia Anesthesiologist: zechariah Anesthesia: MAC Medications Medication Given: see anesthesia record Inserted Devices Implant(s) used?: No GI Core Measures 50 yrs or older w/o bx or poly: Not Applicable 10yrs. F/U recommended: Not Applicable Mina Rao MD Sep 18, 2019 11:46
--- NOTE | 2019-09-18 11:48 | Brief Operative Note ---
Immediate Post Operative Note Operative Note Chief Complaint: anemia, anorexia Pre-op Diagnosis: anorexia Procedure: esophagogastroduodenoscopy bx peg Specimen: yes Complications: none Condition: stable Fluids: per anesthesia Implant(s) used?: No Mina Rao MD Sep 18, 2019 11:47
--- NOTE | 2019-09-18 11:48 | 48 Hour Post Anesthesia Eval ---
Post Anesthesia Evaluation Procedure: EGD PEG tube placement Date of Evaluation: Sep 18, 2019 Time of Evaluation: 12:30 Blood Pressure Systolic: 118 0: 64 Pulse Rate: 78 Respiratory Rate: 22 Temperature (Fahrenheit): 97.6 O2 Sat by Pulse Oximetry: 98 Airway: patent Nausea: No Vomiting: No Pain Intensity: 1 Hydration Status: adequate Cardiopulmonary Status: stable Mental Status/LOC: patient returned to baseline Follow-up Care/Observations: n/a Post-Anesthesia Complications: none Follow-up care needed: N/A Ravinder Gonzáles MD Sep 18, 2019 11:48
[2019-09-18] MEDS: D5 1/2NS 1,000 ML IV SCH (12:32)
--- NOTE | 2019-09-18 12:45 | Infectious Diseases Prog Note ---
Assessment/Plan Assessment/Plan A 1. staph aureus( MRSA) sepsis, likely catheter infection s/p removal of PICC line 2. s/p GT placement 3. Stage V CKD 4. leucocytosis improving 5. hypertension 6. dementia 7. CHF 8. Pericardial effusion P 1. continue linezolid 2. repeat blood cultures Subjective ROS Limited/Unobtainable: Yes Gastrointestinal/Abdominal: Reports: other - had EGD & PEG placement, abdominal pain Allergies: Coded Allergies: ERYTHROMYCIN BASE (Unverified Allergy, Intermediate, 07/14/19) Per patient not allergic to medications or food Objective Vital Signs Last 24 Hour Vital Signs Date Time Temp Pulse Resp B/P (MAP) Pulse Ox O2 Delivery O2 Flow Rate FiO2 09/18/19 11:50 97.6 72 24 134/71 96 Room Air 09/18/19 11:48 78 22 98 09/18/19 11:45 74 23 132/69 97 Room Air 09/18/19 11:40 73 23 136/70 100 Nasal Cannula 3 09/18/19 11:35 97.7 74 25 131/71 100 Nasal Cannula 3 09/18/19 11:33 72 22 99 09/18/19 09:34 88 151/81 09/18/19 09:34 88 151/81 09/18/19 08:25 Room Air 09/18/19 08:06 98.7 88 20 151/81 (104) 98 09/18/19 07:40 92 09/18/19 06:33 153/72 09/18/19 04:00 93 09/18/19 04:00 98.3 98 20 148/76 (100) 96 09/18/19 00:00 108 09/18/19 00:00 99.5 105 20 143/77 (99) 96 09/17/19 22:01 134/60 09/17/19 21:00 Room Air 09/17/19 20:53 109 140/66 09/17/19 20:00 99.0 109 20 140/66 (90) 96 09/17/19 20:00 103 09/17/19 16:00 88 09/17/19 16:00 99.0 86 18 146/76 (99) 99 09/17/19 14:20 147/76 Height (Feet): 5 Height (Inches): 3.00 Weight (Pounds): 177 General Appearance: no acute distress HEENT: mucous membranes moist Respiratory/Chest: lungs clear Cardiovascular: normal rate Abdomen: soft, non tender, other - GT in place Extremities: no edema Neurologic/Psychiatric: alert, responsive, other - drowsy Microbiology Date/Time Source Procedure Growth Status 09/16/19 02:11 Nasal Nares Left MRSA Culture - Final Staphylococcus Aureus - Mrsa Complete 09/16/19 02:11 Rectum VRE Culture - Final NO VANCOMYCIN RESISTANT ENTEROCOCCUS ... Complete Laboratory Tests Test 09/18/19 05:57 White Blood Count 11.7 K/UL (4.8-10.8) H Red Blood Count 2.96 M/UL (4.20-5.40) L Hemoglobin 8.9 G/DL (12.0-16.0) L Hematocrit 27.2 % (37.0-47.0) L Mean Corpuscular Volume 92 FL (80-99) Mean Corpuscular Hemoglobin 30.1 PG (27.0-31.0) Mean Corpuscular Hemoglobin Concent 32.8 G/DL (32.0-36.0) Red Cell Distribution Width 14.7 % (11.6-14.8) Platelet Count 263 K/UL (150-450) Mean Platelet Volume 9.3 FL (6.5-10.1) Neutrophils (%) (Auto) 82.1 % (45.0-75.0) H Lymphocytes (%) (Auto) 9.7 % (20.0-45.0) L Monocytes (%) (Auto) 7.3 % (1.0-10.0) Eosinophils (%) (Auto) 0.3 % (0.0-3.0) Basophils (%) (Auto) 0.5 % (0.0-2.0) Prothrombin Time 12.0 SEC (9.30-11.50) H Prothromb Time International Ratio 1.1 (0.9-1.1) Activated Partial Thromboplast Time 31 SEC (23-33) Sodium Level 146 MMOL/L (136-145) H Potassium Level 4.1 MMOL/L (3.5-5.1) Chloride Level 112 MMOL/L (98-107) H Carbon Dioxide Level 18 MMOL/L (21-32) L Anion Gap 16 mmol/L (5-15) H Blood Urea Nitrogen 58 mg/dL (7-18) H Creatinine 4.2 MG/DL (0.55-1.30) H Estimat Glomerular Filtration Rate mL/min (>60) Glucose Level 119 MG/DL (74-106) H Calcium Level 9.3 MG/DL (8.5-10.1) Total Bilirubin 0.8 MG/DL (0.2-1.0) Aspartate Amino Transf (AST/SGOT) 33 U/L (15-37) Alanine Aminotransferase (ALT/SGPT) 15 U/L (12-78) Alkaline Phosphatase 68 U/L (46-116) Total Protein 7.4 G/DL (6.4-8.2) Albumin 2.1 G/DL (3.4-5.0) L Globulin 5.3 g/dL Albumin/Globulin Ratio 0.4 (1.0-2.7) L Current Medications Medications (Trade) Dose Ordered Sig/Jonathan Route PRN Reason Start Time Stop Time Status Last Admin Dose Admin Acetaminophen (Tylenol) 650 mg Q6H PRN ORAL Mild Pain/Temp > 100.5 09/16/19 06:45 10/16/19 06:44 Dextrose/Sodium Chloride 1,000 ml @ 75 mls/hr [id number] IV 09/18/19 12:00 10/18/19 11:59 09/18/19 12:32 Epoetin Phu (Epoetin Phu-EPBX(NON ESRD)) 2,000 unit SUN-SUN-SUN SUBQ 09/15/19 21:00 10/15/19 20:59 09/17/19 20:52 Epoetin Phu (Epoetin Phu-EPBX(NON ESRD)) 3,000 unit SUN-SUN-SUN SUBQ 09/15/19 21:00 10/15/19 20:59 09/17/19 20:52 Heparin Sodium (Porcine) (Heparin 5000 units/ml) 5,000 units EVERY 12 HOURS SUBQ 09/15/19 21:00 10/15/19 20:59 09/17/19 20:54 Hydralazine HCl (Apresoline) 100 mg Q8HR ORAL 09/15/19 22:15 10/15/19 22:14 09/18/19 06:33 Levothyroxine Sodium (Synthroid) 125 mcg ACBREAKFAST ORAL 09/16/19 06:30 10/16/19 06:29 09/18/19 06:33 Linezolid 300 ml @ 300 mls/hr Q12HR IVPB 09/15/19 21:00 09/22/19 20:59 09/18/19 09:34 Metoprolol Tartrate (Lopressor) 100 mg EVERY 12 HOURS ORAL 09/15/19 22:15 10/15/19 22:14 09/18/19 09:34 Nifedipine (Procardia XL) 60 mg DAILY ORAL 09/16/19 09:00 10/16/19 08:59 09/18/19 09:34 Pantoprazole (Protonix) 40 mg DAILY ORAL 09/15/19 17:15 10/15/19 17:14 09/18/19 09:33 Ruperto Freedman MD Sep 18, 2019 12:45
--- NOTE | 2019-09-18 15:08 | General Progress Note ---
Assessment/Plan Problem List: (1) Chronic kidney disease, stage III (moderate) ICD Codes: N18.3 - Chronic kidney disease, stage III (moderate) SNOMED: 365814313 (2) Hypertensive nephrosclerosis ICD Codes: I12.9 - Hypertensive chronic kidney disease with stage 1 through stage 4 chronic kidney disease, or unspecified chronic kidney disease SNOMED: 057403536 (3) CKD (chronic kidney disease) stage 4, GFR 15-29 ml/min ICD Codes: N18.4 - Chronic kidney disease, stage 4 (severe) SNOMED: 111298744 (4) Fever ICD Codes: R50.9 - Fever, unspecified SNOMED: 478165384 Qualifiers: Qualified Codes: R50.81 - Fever presenting with conditions classified elsewhere (5) Anorexia ICD Codes: R63.0 - Anorexia SNOMED: 59944922 (6) Hypothyroidism ICD Codes: E03.9 - Hypothyroidism SNOMED: 13744303 (7) Sepsis ICD Codes: A41.9 - Sepsis, unspecified organism SNOMED: 14133186 Qualifiers: Qualified Codes: A41.9 - Sepsis, unspecified organism; R65.20 - Severe sepsis without septic shock; N17.9 - Acute kidney failure, unspecified (8) Abdominal pain in female ICD Codes: R10.9 - Unspecified abdominal pain SNOMED: 87411462 (9) Acute renal failure (ARF) ICD Codes: N17.9 - Acute kidney failure, unspecified SNOMED: 89234876 Qualifiers: Qualified Codes: N17.9 - Acute kidney failure, unspecified Status: stable, not improved Assessment/Plan: cont ivf with bicarb follow up labs check renal us renal eval. resume nifedipine for htn iv abx per id follow up cultures may need gt Subjective ROS Limited/Unobtainable: No Constitutional: Reports: malaise, weakness HEENT: Reports: no symptoms Cardiovascular: Reports: no symptoms Respiratory: Reports: no symptoms Gastrointestinal/Abdominal: Reports: poor appetite, poor fluid intake Genitourinary: Reports: no symptoms Neurologic/Psychiatric: Reports: pre-existing deficit Endocrine: Reports: no symptoms Hematologic/Lymphatic: Reports: anemia Allergies: Coded Allergies: ERYTHROMYCIN BASE (Unverified Allergy, Intermediate, 07/14/19) Per patient not allergic to medications or food All Systems: reviewed and negative except above Subjective +blood cultures. Picc dcd. on iv abx. refusing all po family agrees to gt. "i dont have any apettite" Objective Last 24 Hour Vital Signs Date Time Temp Pulse Resp B/P (MAP) Pulse Ox O2 Delivery O2 Flow Rate FiO2 09/18/19 12:20 72 09/18/19 12:05 134/71 (92) 09/18/19 11:50 97.6 72 24 134/71 96 Room Air 09/18/19 11:48 78 22 98 09/18/19 11:45 74 23 132/69 97 Room Air 09/18/19 11:40 73 23 136/70 100 Nasal Cannula 3 09/18/19 11:35 97.7 74 25 131/71 100 Nasal Cannula 3 09/18/19 11:33 72 22 99 09/18/19 09:34 88 151/81 09/18/19 09:34 88 151/81 09/18/19 08:25 Room Air 09/18/19 08:06 98.7 88 20 151/81 (104) 98 09/18/19 07:40 92 09/18/19 06:33 153/72 09/18/19 04:00 93 09/18/19 04:00 98.3 98 20 148/76 (100) 96 09/18/19 00:00 108 09/18/19 00:00 99.5 105 20 143/77 (99) 96 09/17/19 22:01 134/60 09/17/19 21:00 Room Air 09/17/19 20:53 109 140/66 09/17/19 20:00 99.0 109 20 140/66 (90) 96 09/17/19 20:00 103 09/17/19 16:00 88 09/17/19 16:00 99.0 86 18 146/76 (99) 99 Intake and Output 09/17/19 09/18/19 18:59 06:59 Intake Total 900 ml Output Total 800 ml 700 ml Balance 100 ml -700 ml Intake Oral 900 ml Output Urine Total 800 ml 700 ml # Bowel Movements 1 Laboratory Tests 09/18/19 05:57: White Blood Count 11.7H, Red Blood Count 2.96L, Hemoglobin 8.9L, Hematocrit 27.2L, Mean Corpuscular Volume 92, Mean Corpuscular Hemoglobin 30.1, Mean Corpuscular Hemoglobin Concent 32.8, Red Cell Distribution Width 14.7, Platelet Count 263, Mean Platelet Volume 9.3, Neutrophils (%) (Auto) 82.1H, Lymphocytes ( %) (Auto) 9.7L, Monocytes (%) (Auto) 7.3, Eosinophils (%) (Auto) 0.3, Basophils (%) (Auto) 0.5, Prothrombin Time 12.0H, Prothromb Time International Ratio 1.1, Activated Partial Thromboplast Time 31, Sodium Level 146H, Potassium Level 4.1, Chloride Level 112H, Carbon Dioxide Level 18L, Anion Gap 16H, Blood Urea Nitrogen 58H, Creatinine 4.2H, Estimat Glomerular Filtration Rate , Glucose Level 119H, Calcium Level 9.3, Total Bilirubin 0.8, Aspartate Amino Transf (AST/ SGOT) 33, Alanine Aminotransferase (ALT/SGPT) 15, Alkaline Phosphatase 68, Total Protein 7.4, Albumin 2.1L, Globulin 5.3, Albumin/Globulin Ratio 0.4L Height (Feet): 5 Height (Inches): 3.00 Weight (Pounds): 177 General Appearance: WD/WN Neck: supple Cardiovascular: regular rhythm Respiratory/Chest: lungs clear Abdomen: normal bowel sounds, non tender, soft, no organomegaly Edema: no edema noted Arm (L), no edema noted Arm (R), no edema noted Leg (L), no edema noted Leg (R), no edema noted Pedal (L), no edema noted Pedal (R), no edema noted Generalized Neurologic: food services coordinator II-XII grossly normal, alert, oriented x 3 Chema Hendricks MD Sep 18, 2019 15:08
--- NOTE | 2019-09-18 15:13 | Nephrology Progress Note ---
Assessment/Plan Problem List: (1) CHF exacerbation (2) CKD (chronic kidney disease) stage 5, GFR less than 15 ml/min (3) Anemia in chronic kidney disease (4) Sepsis (5) Anorexia (6) Hypertensive nephrosclerosis Plan G+ cocci could be from picc, s/p removal, chf consider dialysis access soon after sepsis improved,sp peg, start bicitra for acidosis Subjective Constitutional: Reports: weakness HEENT: Reports: no symptoms Genitourinary: Reports: incontinence Neurologic/Psychiatric: Reports: pre-existing deficit Objective Objective Last 24 Hour Vital Signs Date Time Temp Pulse Resp B/P (MAP) Pulse Ox O2 Delivery O2 Flow Rate FiO2 09/18/19 12:20 72 09/18/19 12:05 134/71 (92) 09/18/19 11:50 97.6 72 24 134/71 96 Room Air 09/18/19 11:48 78 22 98 09/18/19 11:45 74 23 132/69 97 Room Air 09/18/19 11:40 73 23 136/70 100 Nasal Cannula 3 09/18/19 11:35 97.7 74 25 131/71 100 Nasal Cannula 3 09/18/19 11:33 72 22 99 09/18/19 09:34 88 151/81 09/18/19 09:34 88 151/81 09/18/19 08:25 Room Air 09/18/19 08:06 98.7 88 20 151/81 (104) 98 09/18/19 07:40 92 09/18/19 06:33 153/72 09/18/19 04:00 93 09/18/19 04:00 98.3 98 20 148/76 (100) 96 09/18/19 00:00 108 09/18/19 00:00 99.5 105 20 143/77 (99) 96 09/17/19 22:01 134/60 09/17/19 21:00 Room Air 09/17/19 20:53 109 140/66 09/17/19 20:00 99.0 109 20 140/66 (90) 96 09/17/19 20:00 103 09/17/19 16:00 88 09/17/19 16:00 99.0 86 18 146/76 (99) 99 Intake and Output 09/17/19 09/18/19 18:59 06:59 Intake Total 900 ml Output Total 800 ml 700 ml Balance 100 ml -700 ml Intake Oral 900 ml Output Urine Total 800 ml 700 ml # Bowel Movements 1 Laboratory Tests 09/18/19 05:57: White Blood Count 11.7H, Red Blood Count 2.96L, Hemoglobin 8.9L, Hematocrit 27.2L, Mean Corpuscular Volume 92, Mean Corpuscular Hemoglobin 30.1, Mean Corpuscular Hemoglobin Concent 32.8, Red Cell Distribution Width 14.7, Platelet Count 263, Mean Platelet Volume 9.3, Neutrophils (%) (Auto) 82.1H, Lymphocytes ( %) (Auto) 9.7L, Monocytes (%) (Auto) 7.3, Eosinophils (%) (Auto) 0.3, Basophils (%) (Auto) 0.5, Prothrombin Time 12.0H, Prothromb Time International Ratio 1.1, Activated Partial Thromboplast Time 31, Sodium Level 146H, Potassium Level 4.1, Chloride Level 112H, Carbon Dioxide Level 18L, Anion Gap 16H, Blood Urea Nitrogen 58H, Creatinine 4.2H, Estimat Glomerular Filtration Rate , Glucose Level 119H, Calcium Level 9.3, Total Bilirubin 0.8, Aspartate Amino Transf (AST/ SGOT) 33, Alanine Aminotransferase (ALT/SGPT) 15, Alkaline Phosphatase 68, Total Protein 7.4, Albumin 2.1L, Globulin 5.3, Albumin/Globulin Ratio 0.4L Height (Feet): 5 Height (Inches): 3.00 Weight (Pounds): 177 General Appearance: no apparent distress, confused EENT: normal ENT inspection Neck: normal alignment Cardiovascular: regular rhythm Respiratory/Chest: lungs clear Abdomen: non tender Extremities: trace edema Neurologic: motor weakness Jose Lemus MD Sep 18, 2019 15:13
[2019-09-18] MEDS: Sodium Citrate 30ml GT SCH (17:51)
[2019-09-18] MEDS: Acetaminophen 650mg/20.3ml GT PRN (17:52)
[2019-09-18] MEDS ORDERED: RESTORIL30 MG ORAL (19:45)
--- NOTE | 2019-09-18 19:48 | NUR ---
HAND-OFF: Report given to karla Moulton.
--- NOTE | 2019-09-18 19:50 | NUR ---
NURSE NOTES: Received report from ENRIQUE Queen. Patient in bed awake showing no signs of acute distress. AOx1-2. Respiration even and non labored on room air. No sob noted. GT patent and intact. No bleeding noted. Dressing intact under abdominal binder. IV noted on right hand 24g running D5 0.45 NS @75cc/hr. Call button within reach, wheels locked and alarm on. Side rails up x2. All needs attended and met. Will continue plan of care.
[2019-09-18] MEDS: HYDROcodone/Acetamin 5/325 tab ORAL PRN (20:25)
--- NOTE | 2019-09-18 21:30 | Operative Note - Dictated ---
DATE OF OPERATION: 09/18/2019 GASTROENTEROLOGY PROCEDURE PROCEDURE: Upper gastrointestinal endoscopy with enteroscopy and biopsy as well as gastrostomy tube placement. SURGEON: Mina Rao M.D. ANESTHESIA: Please see the separate anesthesiologist notes for details. PRE-ENDOSCOPIC DIAGNOSES: 1. Anemia. 2. dyaphagia / malnutrition. POST-ENDOSCOPIC DIAGNOSES: 1. Small bowel melanosis, status post biopsy. 2. Status post gastrostomy tube placement. PROCEDURE IN DETAIL: The procedure, its risks, indications, alternatives, and possible complications including but not limited to bleeding, infection, perforation, , and anesthesia complications were explained to the patient's daughter and informed consent was obtained. The patient was then sedated in supine position. A diagnostic upper endoscope was introduced through oropharynx and advanced to the duodenum at third portion. The endoscope was then gradually withdrawn and the mucosa examined carefully. Examination of the upper gastrointestinal mucosa revealed melanosis of the small bowel. Biopsies were sent to pathology for review. The remainder of the upper gastrointestinal examination was unremarkable. The location for placement of gastrostomy tube was identified by palpation and transillumination techniques. The outside skin was sterilely prepared, anesthetized, incised, and the trocar needle was used to place the gastrostomy tube using the standard pull technique. The patient was left to recovery in good condition. COMPLICATIONS: None. RECOMMENDATIONS: 1. Follow up biopsy results. 2. Observe overnight. 3. Begin tube feedings tomorrow. Mina Rao M.D. DR: CLIF JOB#: [id number] CC: YUE
[2019-09-18] MEDS: HydrALAZINE 50mg tab GT SCH (22:10)
--- NOTE | 2019-09-18 23:45 | Progress Note ---
DATE: 09/18/2019 CARDIOLOGY PROGRESS NOTE SUBJECTIVE: The patient is status post G-tube placement today with no complications. She is awake and alert and has no new complaints. OBJECTIVE: VITAL SIGNS: Blood pressure 134/71, pulse 72, respiratory rate 18, and afebrile. HEENT: Conjunctivae are pink. Oropharynx clear. NECK: Supple. LUNGS: Clear. CARDIAC: Regular rhythm and rate. Normal S1, S2 with a 1/6 systolic apical murmur. ABDOMEN: Soft. Slightly distended. Mildly tender. The G-tube site is intact without erythema. EXTREMITIES: With trace edema. LABORATORY DATA: White count is 11.7 and hemoglobin 8.9. INR is 1.1. Sodium 146, potassium 4.1, bicarb 18, BUN 58, and creatinine 4.2. Albumin 2.1. IMPRESSION: 1. Anorexia and weight loss. 2. Failure to thrive. 3. Status post G-tube. 4. Dehydration. 5. Hypernatremia. 6. Hyperchloremia. 7. Acute on chronic renal failure. 8. Hypertensive heart disease. 9. History of pericardial effusion. 10. Anemia of chronic kidney disease. PLAN: 1. Continue hypotonic IV fluid hydration. 2. Antimicrobials. 3. Cautious use of beta-boris. 4. Avoid additional diuresis at this time. 5. DVT prophylaxis. Lance Rivas M.D. DR: GRACIELA JOB#: [id number] CC:
[2019-09-19] VITALS: BP 143/74
[2019-09-19] MEDS: D5 1/2NS 1,000 ML IV SCH ×2 (01:20→09:43)
[2019-09-19 04:00] VITALS: BP 159/78
[2019-09-19] MEDS: HydrALAZINE 50mg tab GT SCH ×3 (06:22→23:24)
[2019-09-19] MEDS: Levothyroxine 125mcg tab GT SCH (06:22)
--- NOTE | 2019-09-19 07:20 | NUR ---
NURSE NOTES: Nurse report given by ENRIQUE De Jesus. Patient in bed awake showing no signs of acute distress. AO x1, no s/s of distress or SOB. Respiration even and non labored on room air. GT patent and intact. No bleeding noted. Dressing intact under abdominal binder. IV is running fluid, patent, no s/s of tenderness or infiltration. Bed low and locked, call light within reach, side rails x 3, bed alarm is on. Will continue to monitor closely.
--- NOTE | 2019-09-19 07:20 | NUR ---
HAND-OFF: Report given to ENRIQUE Becker.
[2019-09-19 07:23] LABS: ALANINE AMINOTRANSFERASE 14 U/L (12-78); ALBUMIN/GLOBULIN RATIO 0.4 (1.0-2.7); ALKALINE PHOSPHATASE 56 U/L (46-116); ANION GAP 12 mmol/L (5-15); ASPARTATE AMINO TRANSFERASE 29 U/L (15-37); BILIRUBIN,TOTAL 0.8 MG/DL (0.2-1.0); BLOOD UREA NITROGEN 61 mg/dL (7-18); CALCIUM 8.9 MG/DL (8.5-10.1); CARBON DIOXIDE 19 MMOL/L (21-32); CHLORIDE 111 MMOL/L (98-107); CREATININE 4.8 MG/DL (0.55-1.30); POTASSIUM 3.9 MMOL/L (3.5-5.1); SODIUM 142 MMOL/L (136-145)
[2019-09-19 07:28] LABS: BASOPHILS % (AUTO) 0.6 % (0.0-2.0); EOSINOPHILS % (AUTO) 0.8 % (0.0-3.0); HEMATOCRIT 25.6 % (37.0-47.0); HEMOGLOBIN 8.3 G/DL (12.0-16.0); LYMPHOCYTES % (AUTO) 9.1 % (20.0-45.0); MEAN CORPUSCULAR VOLUME 93 FL (80-99); MONOCYTES % (AUTO) 5.5 % (1.0-10.0); PLATELET COUNT 243 K/UL (150-450); RED BLOOD COUNT 2.76 M/UL (4.20-5.40); RED CELL DISTRIBUTION WIDTH 14.7 % (11.6-14.8); WHITE BLOOD COUNT 9.1 K/UL (4.8-10.8)
[2019-09-19 08:00] VITALS: BP 141/84
[2019-09-19] MEDS: Sodium Citrate 30ml GT SCH ×2 (08:20→17:37)
[2019-09-19] MEDS: Heparin 5000 units/ml inj SUBQ SCH ×2 (08:35→21:06)
--- NOTE | 2019-09-19 08:45 | NUR ---
RD ASSESSMENT & RECOMMENDATIONS SEE CARE ACTIVITY FOR COMPLETE ASSESSMENT DAILY ESTIMATED NEEDS: Needs based on cardiac, renal CKD stage 5 no HD, 58kg abw 25-35 kcals/kg 3824-2699 total kcals .6-1 g protein/kg 35-58 g total protein Fluid per MD NUTRITION DIAGNOSIS: 1) Altered nutrition related lab values r/t renal dysfunction as evidenced by elev creat (4.8), elev BUN 61, low Hgb (8.3). 2) Swallowing difficulty r/t dysphagia as evidenced by poor po intake, declining cognition, pt is now s/p PEG placement. CURRENT DIET:NPO ENTERAL NUTRITION RECOMMENDATIONS: NEPRO @35ml/hr x22 hrs to provide 770ml, 1386 kcal, 62g pro, 560ml free H2o - Obtain GI access, start NEPRO @15ml/hr for 6 hrs, advance as tolerated 10ml/hr q4-6 hrs to goal - HOLD TF 1 hr before and after SYNTHROID meds - TF at goal meets 96% est kcal and 107% est pro needs. - Flush per MD, HOB over 30 degrees Monitor for HD, need for TF rate change ADDITIONAL RECOMMENDATIONS: 1) Calibrated bedscale wt for accurate CBW (daily wt d/t h/o poor intake) 2) Add NEPRO BID w/ meals 3) Monitor renal fxn + lytes 4) Monitor PO intake closely 5) Rec liberalized diet for improved PO acceptance 6) LEATHER LEVELER eval for appropriate texture 7) TF recs as above as needed
--- NOTE | 2019-09-19 09:17 | NUR ---
CASE MANAGEMENT:REVIEW 09/19/19 SI: SEPSIS D/Y MRSA BACTEREMIA DEHYDRATION. FTT. WT LOSS......POD #1 S/P PEG 98.7 88 20 141/84 99% ON RA H/H-8.3/25.6 BUN+61 CR+4.8 IS: IV LINEZOLID Q12 IVF@75/HR LOPRESSOR GT Q12 PROCARDIA XL PO QD HYDRALAZINE GT Q8HRS HEPARIN SQ Q12 PROTONIX GT QD : TELEMETRY STATUS PLAN: WAITING FOR ORDER FROM GI TO START TUBE FEEDINGS
--- NOTE | 2019-09-19 09:23 | General Progress Note ---
Assessment/Plan Problem List: (1) Chronic kidney disease, stage III (moderate) ICD Codes: N18.3 - Chronic kidney disease, stage III (moderate) SNOMED: 763316848 (2) Hypertensive nephrosclerosis ICD Codes: I12.9 - Hypertensive chronic kidney disease with stage 1 through stage 4 chronic kidney disease, or unspecified chronic kidney disease SNOMED: 169719700 (3) CKD (chronic kidney disease) stage 4, GFR 15-29 ml/min ICD Codes: N18.4 - Chronic kidney disease, stage 4 (severe) SNOMED: 335046511 (4) Fever ICD Codes: R50.9 - Fever, unspecified SNOMED: 768116301 Qualifiers: Qualified Codes: R50.81 - Fever presenting with conditions classified elsewhere (5) Anorexia ICD Codes: R63.0 - Anorexia SNOMED: 00335689 (6) Hypothyroidism ICD Codes: E03.9 - Hypothyroidism SNOMED: 04582510 (7) Sepsis ICD Codes: A41.9 - Sepsis, unspecified organism SNOMED: 56829538 Qualifiers: Qualified Codes: A41.9 - Sepsis, unspecified organism; R65.20 - Severe sepsis without septic shock; N17.9 - Acute kidney failure, unspecified (8) Abdominal pain in female ICD Codes: R10.9 - Unspecified abdominal pain SNOMED: 85702414 (9) Acute renal failure (ARF) ICD Codes: N17.9 - Acute kidney failure, unspecified SNOMED: 18193868 Qualifiers: Qualified Codes: N17.9 - Acute kidney failure, unspecified Status: stable, not improved Assessment/Plan: cont ivf with bicarb worsening renal fxn check renal us renal eval appreciated resume nifedipine for htn iv abx per id gt feeds per GI Subjective ROS Limited/Unobtainable: No Constitutional: Reports: malaise, weakness HEENT: Reports: no symptoms Cardiovascular: Reports: no symptoms Respiratory: Reports: no symptoms Gastrointestinal/Abdominal: Reports: poor appetite, poor fluid intake Genitourinary: Reports: no symptoms Neurologic/Psychiatric: Reports: pre-existing deficit Endocrine: Reports: no symptoms Hematologic/Lymphatic: Reports: no symptoms Allergies: Coded Allergies: ERYTHROMYCIN BASE (Unverified Allergy, Intermediate, 07/14/19) Per patient not allergic to medications or food All Systems: reviewed and negative except above Subjective s/p gt. no new complaints. renal fxn worse Objective Last 24 Hour Vital Signs Date Time Temp Pulse Resp B/P (MAP) Pulse Ox O2 Delivery O2 Flow Rate FiO2 09/19/19 08:21 88 141/84 09/19/19 08:21 88 141/84 09/19/19 08:00 98.7 88 20 141/84 (103) 99 09/19/19 06:22 159/78 09/19/19 04:00 77 09/19/19 04:00 98.0 78 18 159/78 (105) 98 09/19/19 00:00 74 09/19/19 00:00 98.0 80 18 143/74 (97) 98 09/18/19 22:10 118/67 09/18/19 21:00 Room Air 09/18/19 20:55 97.6 09/18/19 20:46 85 145/67 09/18/19 20:00 86 09/18/19 20:00 98.4 85 145/67 (93) 09/18/19 18:44 97.6 09/18/19 16:00 98.5 87 149/71 (97) 09/18/19 15:57 82 09/18/19 12:20 72 09/18/19 12:05 134/71 (92) 09/18/19 11:50 97.6 72 24 134/71 96 Room Air 09/18/19 11:48 78 22 98 09/18/19 11:45 74 23 132/69 97 Room Air 09/18/19 11:40 73 23 136/70 100 Nasal Cannula 3 09/18/19 11:35 97.7 74 25 131/71 100 Nasal Cannula 3 09/18/19 11:33 72 22 99 09/18/19 09:34 88 151/81 09/18/19 09:34 88 151/81 Intake and Output 09/18/19 09/19/19 19:00 07:00 Intake Total 440 ml 100 ml Output Total 0 ml Balance 440 ml 100 ml Intake Oral 140 ml Free Water 100 ml IV Total 300 ml Estimated Blood Loss 0 ml # Voids 3 2 Laboratory Tests 09/19/19 06:10: White Blood Count 9.1, Red Blood Count 2.76L, Hemoglobin 8.3L, Hematocrit 25.6L , Mean Corpuscular Volume 93, Mean Corpuscular Hemoglobin 30.0, Mean Corpuscular Hemoglobin Concent 32.4, Red Cell Distribution Width 14.7, Platelet Count 243, Mean Platelet Volume 9.2, Neutrophils (%) (Auto) 84.0H, Lymphocytes ( %) (Auto) 9.1L, Monocytes (%) (Auto) 5.5, Eosinophils (%) (Auto) 0.8, Basophils (%) (Auto) 0.6, Sodium Level 142, Potassium Level 3.9, Chloride Level 111H, Carbon Dioxide Level 19L, Anion Gap 12, Blood Urea Nitrogen 61H, Creatinine 4.8H , Estimat Glomerular Filtration Rate , Glucose Level 105, Calcium Level 8.9, Magnesium Level 2.1, Total Bilirubin 0.8, Aspartate Amino Transf (AST/SGOT) 29, Alanine Aminotransferase (ALT/SGPT) 14, Alkaline Phosphatase 56, Total Protein 7.2, Albumin 2.0L, Globulin 5.2, Albumin/Globulin Ratio 0.4L Height (Feet): 5 Height (Inches): 3.00 Weight (Pounds): 177 Objective General Appearance: WD/WN Neck: supple Cardiovascular: regular rhythm Respiratory/Chest: lungs clear Abdomen: normal bowel sounds, non tender, soft, no organomegaly Edema: no edema noted Arm (L), no edema noted Arm (R), no edema noted Leg (L), no edema noted Leg (R), no edema noted Pedal (L), no edema noted Pedal (R), no edema noted Generalized Neurologic: front worker II-XII grossly normal, alert, oriented x 3 Chema Hendricks MD Sep 19, 2019 09:23
--- NOTE | 2019-09-19 10:58 | Diagnostic Imaging Report ---
Indication: Acute renal failure Technique: Grayscale and duplex images of the kidneys, retroperitoneum, and bladder were obtained. Comparison: 07/14/2019 Findings: Right kidney measures 10.6 cm in length. Left kidney measures 10 cm in length. Both kidneys demonstrate increased echogenicity. There are bilateral renal cysts. 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 No hydronephrosis. Normal inferior vena cava. Bladder is normal. Impression: Increased bilateral renal echogenicity, also previously described, consistent with medical renal disease Negative for hydronephrosis Bilateral renal cysts Echogenic structure in the left upper pole renal sinus, probably is prominent sinus fat as no corresponding abnormality is demonstrated on recent CT scan of 08/18/2019..
--- NOTE | 2019-09-19 11:00 | NUR ---
NURSE NOTES: Nutrition consult with heel room supervisor and she recommend Nepro 1.8 NG tube feeding, rate @ 35ml and start at 12ml/hr first. Contacted Dr. Rao regarding if patient is ok to start NG tube feeding now. Dr. Rao aware and agreed to start feeding now. Order acknowledged and carried out.
[2019-09-19 12:00] VITALS: BP 152/75
--- NOTE | 2019-09-19 12:48 | Infectious Diseases Prog Note ---
Assessment/Plan Assessment/Plan A 1. staph aureus( MRSA) sepsis, likely catheter infection s/p removal of PICC line 2. s/p GT placement 3. Stage V CKD 4. leucocytosis improving 5. hypertension 6. dementia 7. CHF 8. Pericardial effusion P 1. continue linezolid 2. will f/u blood cultures Subjective ROS Limited/Unobtainable: Yes Constitutional: Denies: fever Allergies: Coded Allergies: ERYTHROMYCIN BASE (Unverified Allergy, Intermediate, 07/14/19) Per patient not allergic to medications or food Objective Vital Signs Last 24 Hour Vital Signs Date Time Temp Pulse Resp B/P (MAP) Pulse Ox O2 Delivery O2 Flow Rate FiO2 09/19/19 09:00 Room Air 09/19/19 08:21 88 141/84 09/19/19 08:21 88 141/84 09/19/19 08:00 98.7 88 20 141/84 (103) 99 09/19/19 08:00 87 09/19/19 06:22 159/78 09/19/19 04:00 77 09/19/19 04:00 98.0 78 18 159/78 (105) 98 09/19/19 00:00 74 09/19/19 00:00 98.0 80 18 143/74 (97) 98 09/18/19 22:10 118/67 09/18/19 21:00 Room Air 09/18/19 20:55 97.6 09/18/19 20:46 85 145/67 09/18/19 20:00 86 09/18/19 20:00 98.4 85 145/67 (93) 09/18/19 18:44 97.6 09/18/19 16:00 98.5 87 149/71 (97) 09/18/19 15:57 82 Height (Feet): 5 Height (Inches): 3.00 Weight (Pounds): 177 General Appearance: no acute distress HEENT: mucous membranes moist Respiratory/Chest: lungs clear Cardiovascular: normal rate Abdomen: soft, non tender, other - Gt feeding Extremities: no edema Neurologic/Psychiatric: other - sleeping Laboratory Tests Test 09/19/19 06:10 White Blood Count 9.1 K/UL (4.8-10.8) Red Blood Count 2.76 M/UL (4.20-5.40) L Hemoglobin 8.3 G/DL (12.0-16.0) L Hematocrit 25.6 % (37.0-47.0) L Mean Corpuscular Volume 93 FL (80-99) Mean Corpuscular Hemoglobin 30.0 PG (27.0-31.0) Mean Corpuscular Hemoglobin Concent 32.4 G/DL (32.0-36.0) Red Cell Distribution Width 14.7 % (11.6-14.8) Platelet Count 243 K/UL (150-450) Mean Platelet Volume 9.2 FL (6.5-10.1) Neutrophils (%) (Auto) 84.0 % (45.0-75.0) H Lymphocytes (%) (Auto) 9.1 % (20.0-45.0) L Monocytes (%) (Auto) 5.5 % (1.0-10.0) Eosinophils (%) (Auto) 0.8 % (0.0-3.0) Basophils (%) (Auto) 0.6 % (0.0-2.0) Sodium Level 142 MMOL/L (136-145) Potassium Level 3.9 MMOL/L (3.5-5.1) Chloride Level 111 MMOL/L (98-107) H Carbon Dioxide Level 19 MMOL/L (21-32) L Anion Gap 12 mmol/L (5-15) Blood Urea Nitrogen 61 mg/dL (7-18) H Creatinine 4.8 MG/DL (0.55-1.30) H Estimat Glomerular Filtration Rate mL/min (>60) Glucose Level 105 MG/DL (74-106) Calcium Level 8.9 MG/DL (8.5-10.1) Magnesium Level 2.1 MG/DL (1.8-2.4) Total Bilirubin 0.8 MG/DL (0.2-1.0) Aspartate Amino Transf (AST/SGOT) 29 U/L (15-37) Alanine Aminotransferase (ALT/SGPT) 14 U/L (12-78) Alkaline Phosphatase 56 U/L (46-116) Total Protein 7.2 G/DL (6.4-8.2) Albumin 2.0 G/DL (3.4-5.0) L Globulin 5.2 g/dL Albumin/Globulin Ratio 0.4 (1.0-2.7) L Current Medications Medications (Trade) Dose Ordered Sig/Jonathan Route PRN Reason Start Time Stop Time Status Last Admin Dose Admin Acetaminophen (Tylenol) 650 mg Q6H PRN GT Mild Pain/Temp > 100.5 09/18/19 15:30 10/16/19 06:44 09/18/19 17:52 Acetaminophen/ Hydrocodone Bitart ([place]ogg 5/325) 1 tab Q8H PRN ORAL PAIN 5-10 09/18/19 19:15 09/25/19 19:14 09/18/19 20:25 Dextrose/Sodium Chloride 1,000 ml @ 75 mls/hr [id number] IV 09/18/19 12:00 10/18/19 11:59 09/19/19 09:43 Epoetin Phu (Epoetin Phu-EPBX(NON ESRD)) 2,000 unit SUN-SUN-SUN SUBQ 09/15/19 21:00 10/15/19 20:59 09/17/19 20:52 Epoetin Phu (Epoetin Phu-EPBX(NON ESRD)) 3,000 unit SUN-SUN-SUN SUBQ 09/15/19 21:00 10/15/19 20:59 09/17/19 20:52 Heparin Sodium (Porcine) (Heparin 5000 units/ml) 5,000 units EVERY 12 HOURS SUBQ 09/15/19 21:00 10/15/19 20:59 09/19/19 08:35 Hydralazine HCl (Apresoline) 100 mg Q8HR GT 09/18/19 22:00 10/15/19 22:14 09/19/19 06:22 Levothyroxine Sodium (Synthroid) 125 mcg ACBREAKFAST GT 09/19/19 06:30 10/16/19 06:29 09/19/19 06:22 Linezolid 300 ml @ 300 mls/hr Q12HR IVPB 09/15/19 21:00 09/22/19 20:59 09/19/19 08:21 Metoprolol Tartrate (Lopressor) 100 mg EVERY 12 HOURS GT 09/18/19 21:00 10/15/19 22:14 09/19/19 08:21 Nifedipine (Procardia XL) 60 mg DAILY ORAL 09/16/19 09:00 10/16/19 08:59 09/19/19 08:21 Pantoprazole (Protonix) 40 mg DAILY ORAL 09/15/19 17:15 10/15/19 17:14 09/19/19 08:21 Sodium Citrate (Bicitra) 30 ml BID GT 09/18/19 18:00 10/18/19 17:59 09/19/19 08:20 Ruperto Freedman MD Sep 19, 2019 12:48
[2019-09-19 16:00] VITALS: BP 157/79
--- NOTE | 2019-09-19 16:04 | Nephrology Progress Note ---
Assessment/Plan Problem List: (1) CHF exacerbation (2) CKD (chronic kidney disease) stage 5, GFR less than 15 ml/min (3) Anemia in chronic kidney disease (4) Sepsis (5) Anorexia (6) Hypertensive nephrosclerosis Plan G+ cocci could be from picc, s/p removal, chf consider dialysis access soon after sepsis improved,sp peg, start bicitra for acidosis,bun/creat 61/4.8 higher , hydration started cautiously, watch for recurrent chf Subjective Constitutional: Reports: weakness HEENT: Reports: no symptoms Genitourinary: Reports: incontinence Neurologic/Psychiatric: Reports: pre-existing deficit Objective Objective Last 24 Hour Vital Signs Date Time Temp Pulse Resp B/P (MAP) Pulse Ox O2 Delivery O2 Flow Rate FiO2 09/19/19 14:55 152/75 09/19/19 12:00 76 09/19/19 12:00 97.6 80 18 152/75 (100) 96 09/19/19 09:00 Room Air 09/19/19 08:21 88 141/84 09/19/19 08:21 88 141/84 09/19/19 08:00 98.7 88 20 141/84 (103) 99 09/19/19 08:00 87 09/19/19 06:22 159/78 09/19/19 04:00 77 09/19/19 04:00 98.0 78 18 159/78 (105) 98 09/19/19 00:00 74 09/19/19 00:00 98.0 80 18 143/74 (97) 98 09/18/19 22:10 118/67 09/18/19 21:00 Room Air 09/18/19 20:55 97.6 09/18/19 20:46 85 145/67 09/18/19 20:00 86 09/18/19 20:00 98.4 85 145/67 (93) 09/18/19 18:44 97.6 Intake and Output 09/18/19 09/19/19 18:59 06:59 Intake Total 440 ml 100 ml Output Total 0 ml Balance 440 ml 100 ml Intake Oral 140 ml Free Water 100 ml IV Total 300 ml Estimated Blood Loss 0 ml # Voids 3 2 Laboratory Tests 09/19/19 06:10: White Blood Count 9.1, Red Blood Count 2.76L, Hemoglobin 8.3L, Hematocrit 25.6L , Mean Corpuscular Volume 93, Mean Corpuscular Hemoglobin 30.0, Mean Corpuscular Hemoglobin Concent 32.4, Red Cell Distribution Width 14.7, Platelet Count 243, Mean Platelet Volume 9.2, Neutrophils (%) (Auto) 84.0H, Lymphocytes ( %) (Auto) 9.1L, Monocytes (%) (Auto) 5.5, Eosinophils (%) (Auto) 0.8, Basophils (%) (Auto) 0.6, Sodium Level 142, Potassium Level 3.9, Chloride Level 111H, Carbon Dioxide Level 19L, Anion Gap 12, Blood Urea Nitrogen 61H, Creatinine 4.8H , Estimat Glomerular Filtration Rate , Glucose Level 105, Calcium Level 8.9, Magnesium Level 2.1, Total Bilirubin 0.8, Aspartate Amino Transf (AST/SGOT) 29, Alanine Aminotransferase (ALT/SGPT) 14, Alkaline Phosphatase 56, Total Protein 7.2, Albumin 2.0L, Globulin 5.2, Albumin/Globulin Ratio 0.4L Height (Feet): 5 Height (Inches): 3.00 Weight (Pounds): 177 General Appearance: alert, confused, morbidly obese EENT: normal ENT inspection Neck: normal alignment Cardiovascular: normal rate Respiratory/Chest: lungs clear Abdomen: non tender, soft Extremities: non-tender Neurologic: motor weakness Jose Lemus MD Sep 19, 2019 16:04
--- NOTE | 2019-09-19 19:33 | NUR ---
HAND-OFF: Report given to ENRIQUE De Jesus. Plan of care endorsed. Patient's stable.
--- NOTE | 2019-09-19 19:35 | NUR ---
NURSE NOTES: Received report from ENRIQUE Becker. Patient in bed asleep showing no signs of acute distress. Respiration even and non labored on room air. No sob noted. GT patent and intact on Nepro @ 35cc/hr tolerating fairly. Dressing intact under abdominal binder. IV noted on left wrist 22g running D5 0.45 NS @75cc/hr. Call button within reach, wheels locked and alarm on. Side rails up x2. All needs attended and met. Will continue plan of care.
[2019-09-19 20:00] VITALS: BP 143/80
--- NOTE | 2019-09-19 20:00 | Progress Note ---
DATE: 09/19/2019 CARDIOLOGY PROGRESS NOTE SUBJECTIVE: The patient is status post G-tube placement yesterday. She continues on IV fluids. Blood pressure parameters are labile and increasing. Renal function remains impaired. OBJECTIVE: VITAL SIGNS: Blood pressure 141/84, pulse 88, pulse 20, afebrile. LUNGS: Diminished breath sounds. HEART: Regular rhythm and rate. Normal S1 and S2. ABDOMEN: Soft. G-tube site intact. No tenderness. EXTREMITIES: With no edema. LABORATORY DATA: White count 9 and hemoglobin 8.3. Potassium 3.9 and magnesium 2.1. BUN 61 and creatinine 4.8. Albumin 2. IMPRESSION: 1. Progressive renal failure. 2. Severe protein-calorie malnutrition status post G-tube. 3. Metabolic acidosis. 4. Dehydration and hypernatremia with hyperchloremia corrected. 5. Hypertensive heart disease. 6. Acute on chronic diastolic congestive heart failure. 7. History of pericardial effusion. 8. Hypothyroidism on replacement therapy. PLAN: 1. Continue hypotonic IV fluids. 2. Nutritional support by feeding tube. 3. Recheck full thyroid panel. 4. Titrating antihypertensives based on clinical parameters. Lnace Rivas M.D. DR: Isael JOB#: [id number] CC:
[2019-09-19] MEDS: Epoetin Alfa-EPBX (NON ESRD) 2000 units/ml vial SUBQ SCH (21:04)
[2019-09-19] MEDS: Epoetin Alfa-EPBX (NON ESRD) 3000 units/ml vial SUBQ SCH (21:04)
--- NOTE | 2019-09-19 22:06 | General Progress Note ---
Assessment/Plan Status: stable, not improved Assessment/Plan: Assessment - Anemia - Anorexia - s/p GT - malnutrition - renal failure - OBS - resolved lactic acidosis Recommendations - TF - GT care - follow labs - abx per ID Subjective Allergies: Coded Allergies: ERYTHROMYCIN BASE (Unverified Allergy, Intermediate, 07/14/19) Per patient not allergic to medications or food Subjective awake NAD s/p PEG TF started Objective Last 24 Hour Vital Signs Date Time Temp Pulse Resp B/P (MAP) Pulse Ox O2 Delivery O2 Flow Rate FiO2 09/19/19 21:04 100 143/80 09/19/19 16:00 81 09/19/19 16:00 98.1 87 18 157/79 (105) 97 09/19/19 14:55 152/75 09/19/19 12:00 76 09/19/19 12:00 97.6 80 18 152/75 (100) 96 09/19/19 09:00 Room Air 09/19/19 08:21 88 141/84 09/19/19 08:21 88 141/84 09/19/19 08:00 98.7 88 20 141/84 (103) 99 09/19/19 08:00 87 09/19/19 06:22 159/78 09/19/19 04:00 77 09/19/19 04:00 98.0 78 18 159/78 (105) 98 09/19/19 00:00 74 09/19/19 00:00 98.0 80 18 143/74 (97) 98 09/18/19 22:10 118/67 Intake and Output 09/18/19 09/19/19 19:00 07:00 Intake Total 440 ml 100 ml Output Total 0 ml Balance 440 ml 100 ml Intake Oral 140 ml Free Water 100 ml IV Total 300 ml Estimated Blood Loss 0 ml # Voids 3 2 Laboratory Tests 09/19/19 06:10: White Blood Count 9.1, Red Blood Count 2.76L, Hemoglobin 8.3L, Hematocrit 25.6L , Mean Corpuscular Volume 93, Mean Corpuscular Hemoglobin 30.0, Mean Corpuscular Hemoglobin Concent 32.4, Red Cell Distribution Width 14.7, Platelet Count 243, Mean Platelet Volume 9.2, Neutrophils (%) (Auto) 84.0H, Lymphocytes ( %) (Auto) 9.1L, Monocytes (%) (Auto) 5.5, Eosinophils (%) (Auto) 0.8, Basophils (%) (Auto) 0.6, Sodium Level 142, Potassium Level 3.9, Chloride Level 111H, Carbon Dioxide Level 19L, Anion Gap 12, Blood Urea Nitrogen 61H, Creatinine 4.8H , Estimat Glomerular Filtration Rate , Glucose Level 105, Calcium Level 8.9, Magnesium Level 2.1, Total Bilirubin 0.8, Aspartate Amino Transf (AST/SGOT) 29, Alanine Aminotransferase (ALT/SGPT) 14, Alkaline Phosphatase 56, Total Protein 7.2, Albumin 2.0L, Globulin 5.2, Albumin/Globulin Ratio 0.4L Height (Feet): 5 Height (Inches): 3.00 Weight (Pounds): 177 Objective WDWN AA woman NCAT supple CTA RR abd soft (+) GT no edema Mina Rao MD Sep 19, 2019 22:06
[2019-09-20] VITALS: BP 159/63
[2019-09-20] MEDS: D5 1/2NS 1,000 ML IV SCH ×2 (00:47→14:18)
[2019-09-20 04:00] VITALS: BP 158/69
[2019-09-20] MEDS: HydrALAZINE 50mg tab GT SCH ×3 (05:12→23:40)
[2019-09-20] MEDS: Levothyroxine 125mcg tab GT SCH (05:12)
--- NOTE | 2019-09-20 07:20 | NUR ---
NURSE NOTES: pt is awake in bed. Pt has a conveyor monitor, no signs of cardiac or respiratory distress at this time. Pt has a Gtube and is on Nepro @ 35ml/hr. Call light within reach. Call light is in lowest position and locked. Will continue to follow plan of care and monitor labs. Pt is gram positive cocci in cluster.
--- NOTE | 2019-09-20 07:20 | NUR ---
HAND-OFF: Report given to ENRIQUE Lemus.
[2019-09-20 07:39] LABS: ALANINE AMINOTRANSFERASE 11 U/L (12-78); ALBUMIN/GLOBULIN RATIO 0.4 (1.0-2.7); ALKALINE PHOSPHATASE 45 U/L (46-116); ANION GAP 13 mmol/L (5-15); ASPARTATE AMINO TRANSFERASE 24 U/L (15-37); BILIRUBIN,TOTAL 0.7 MG/DL (0.2-1.0); BLOOD UREA NITROGEN 59 mg/dL (7-18); CALCIUM 8.8 MG/DL (8.5-10.1); CARBON DIOXIDE 19 MMOL/L (21-32); CHLORIDE 109 MMOL/L (98-107); CREATININE 4.8 MG/DL (0.55-1.30); POTASSIUM 3.4 MMOL/L (3.5-5.1); SODIUM 141 MMOL/L (136-145)
[2019-09-20 08:00] VITALS: BP 118/73
[2019-09-20] MEDS: Sodium Citrate 30ml GT SCH ×2 (09:59→17:47)
[2019-09-20] MEDS: Heparin 5000 units/ml inj SUBQ SCH ×2 (10:08→22:19)
--- NOTE | 2019-09-20 10:48 | General Progress Note ---
Assessment/Plan Problem List: (1) Chronic kidney disease, stage III (moderate) ICD Codes: N18.3 - Chronic kidney disease, stage III (moderate) SNOMED: 722918683 (2) Hypertensive nephrosclerosis ICD Codes: I12.9 - Hypertensive chronic kidney disease with stage 1 through stage 4 chronic kidney disease, or unspecified chronic kidney disease SNOMED: 438459923 (3) CKD (chronic kidney disease) stage 4, GFR 15-29 ml/min ICD Codes: N18.4 - Chronic kidney disease, stage 4 (severe) SNOMED: 719331074 (4) Fever ICD Codes: R50.9 - Fever, unspecified SNOMED: 040684768 Qualifiers: Qualified Codes: R50.81 - Fever presenting with conditions classified elsewhere (5) Anorexia ICD Codes: R63.0 - Anorexia SNOMED: 29962631 (6) Hypothyroidism ICD Codes: E03.9 - Hypothyroidism SNOMED: 65122054 (7) Sepsis ICD Codes: A41.9 - Sepsis, unspecified organism SNOMED: 95113468 Qualifiers: Qualified Codes: A41.9 - Sepsis, unspecified organism; R65.20 - Severe sepsis without septic shock; N17.9 - Acute kidney failure, unspecified (8) Abdominal pain in female ICD Codes: R10.9 - Unspecified abdominal pain SNOMED: 98150246 (9) Acute renal failure (ARF) ICD Codes: N17.9 - Acute kidney failure, unspecified SNOMED: 17357613 Qualifiers: Qualified Codes: N17.9 - Acute kidney failure, unspecified Status: stable, not improved Assessment/Plan: cont ivf monitor renal fxn US without hydro renal eval appreciated resume nifedipine for htn iv abx per id gt feeds per GI Subjective ROS Limited/Unobtainable: No Constitutional: Reports: malaise, weakness HEENT: Reports: no symptoms Cardiovascular: Reports: no symptoms Respiratory: Reports: no symptoms Gastrointestinal/Abdominal: Reports: poor appetite, poor fluid intake Genitourinary: Reports: no symptoms Neurologic/Psychiatric: Reports: depressed Endocrine: Reports: no symptoms Hematologic/Lymphatic: Reports: no symptoms Allergies: Coded Allergies: ERYTHROMYCIN BASE (Unverified Allergy, Intermediate, 07/14/19) Per patient not allergic to medications or food All Systems: reviewed and negative except above Subjective no new complaints. still with anorexia. no fever or chills. labs pending. tolerating feeds. Objective Last 24 Hour Vital Signs Date Time Temp Pulse Resp B/P (MAP) Pulse Ox O2 Delivery O2 Flow Rate FiO2 09/20/19 10:06 100 118/73 09/20/19 10:05 100 118/73 09/20/19 08:00 99.3 100 20 118/73 (88) 98 09/20/19 05:12 158/69 09/20/19 04:00 99.8 81 20 158/69 (98) 98 09/20/19 04:00 81 09/20/19 00:00 83 09/20/19 00:00 99.0 80 20 159/63 (95) 100 09/19/19 23:24 159/63 09/19/19 21:04 100 143/80 09/19/19 21:00 Room Air 09/19/19 20:00 99.5 87 20 143/80 (101) 100 09/19/19 20:00 102 09/19/19 16:00 81 09/19/19 16:00 98.1 87 18 157/79 (105) 97 09/19/19 14:55 152/75 09/19/19 12:00 76 09/19/19 12:00 97.6 80 18 152/75 (100) 96 Intake and Output 09/19/19 09/20/19 19:00 07:00 Intake Total 12 ml 391.25 ml Output Total 200 ml Balance 12 ml 191.25 ml IV Total 391.25 ml Tube Feeding 12 ml Output Urine Total 200 ml # Voids 4 # Bowel Movements 3 1 Laboratory Tests 09/20/19 06:18: Sodium Level [Pending], Potassium Level [Pending], Chloride Level [Pending], Carbon Dioxide Level [Pending], Anion Gap 13, Blood Urea Nitrogen [Pending], Creatinine [Pending], Estimat Glomerular Filtration Rate [Pending], Glucose Level [Pending], Calcium Level [Pending], Total Bilirubin 0.7, Aspartate Amino Transf (AST/SGOT) 24, Alanine Aminotransferase (ALT/SGPT) 11L, Alkaline Phosphatase 45L, Total Protein 6.7, Albumin 2.0L, Globulin 4.7, Albumin/ Globulin Ratio 0.4L, Thyroid Stimulating Hormone (TSH) 1.990, Free Thyroxine 1.30, Free Triiodothyronine 0.6L Height (Feet): 5 Height (Inches): 3.00 Weight (Pounds): 177 Objective General Appearance: WD/WN Neck: supple Cardiovascular: regular rhythm Respiratory/Chest: lungs clear Abdomen: normal bowel sounds, non tender, soft, no organomegaly Edema: no edema noted Arm (L), no edema noted Arm (R), no edema noted Leg (L), no edema noted Leg (R), no edema noted Pedal (L), no edema noted Pedal (R), no edema noted Generalized Neurologic: surgical scheduler II-XII grossly normal, alert, oriented x 3 Chema Hendricks MD Sep 20, 2019 10:48
[2019-09-20 12:00] VITALS: BP 130/72
--- NOTE | 2019-09-20 13:28 | Nephrology Progress Note ---
Assessment/Plan Problem List: (1) CHF exacerbation (2) CKD (chronic kidney disease) stage 5, GFR less than 15 ml/min (3) Anemia in chronic kidney disease (4) Sepsis (5) Anorexia (6) Hypertensive nephrosclerosis Plan G+ cocci could be from picc, s/p removal, chf consider dialysis access soon after sepsis improved,sp peg, start bicitra for acidosis,bun/creat 61/4.8 higher , hydration started cautiously, watch for recurrent chf replace K, repeat BC G+ cocci, concern for sbe Subjective Constitutional: Reports: weakness HEENT: Reports: no symptoms Genitourinary: Reports: incontinence Neurologic/Psychiatric: Reports: pre-existing deficit Objective Objective Last 24 Hour Vital Signs Date Time Temp Pulse Resp B/P (MAP) Pulse Ox O2 Delivery O2 Flow Rate FiO2 09/20/19 12:00 69 09/20/19 10:06 100 118/73 09/20/19 10:05 100 118/73 09/20/19 08:00 99.3 100 20 118/73 (88) 98 09/20/19 08:00 78 09/20/19 05:12 158/69 09/20/19 04:00 99.8 81 20 158/69 (98) 98 09/20/19 04:00 81 09/20/19 00:00 83 09/20/19 00:00 99.0 80 20 159/63 (95) 100 09/19/19 23:24 159/63 09/19/19 21:04 100 143/80 09/19/19 21:00 Room Air 09/19/19 20:00 99.5 87 20 143/80 (101) 100 09/19/19 20:00 102 09/19/19 16:00 81 09/19/19 16:00 98.1 87 18 157/79 (105) 97 09/19/19 14:55 152/75 Intake and Output 09/19/19 09/20/19 19:00 07:00 Intake Total 12 ml 391.25 ml Output Total 200 ml Balance 12 ml 191.25 ml IV Total 391.25 ml Tube Feeding 12 ml Output Urine Total 200 ml # Voids 4 # Bowel Movements 3 1 Laboratory Tests 09/20/19 06:18: Sodium Level [Pending], Potassium Level [Pending], Chloride Level [Pending], Carbon Dioxide Level [Pending], Anion Gap 13, Blood Urea Nitrogen [Pending], Creatinine [Pending], Estimat Glomerular Filtration Rate [Pending], Glucose Level [Pending], Calcium Level [Pending], Total Bilirubin 0.7, Aspartate Amino Transf (AST/SGOT) 24, Alanine Aminotransferase (ALT/SGPT) 11L, Alkaline Phosphatase 45L, Total Protein 6.7, Albumin 2.0L, Globulin 4.7, Albumin/ Globulin Ratio 0.4L, Thyroid Stimulating Hormone (TSH) 1.990, Free Thyroxine 1.30, Free Triiodothyronine 0.6L Height (Feet): 5 Height (Inches): 3.00 Weight (Pounds): 177 General Appearance: alert, confused, morbidly obese EENT: normal ENT inspection Neck: normal alignment Cardiovascular: regular rhythm Respiratory/Chest: lungs clear, normal breath sounds Abdomen: non tender Neurologic: motor weakness Jose Lemus MD Sep 20, 2019 13:28
[2019-09-20] MEDS ORDERED: D5 1/2NS 1000ml IV ONE (13:42)
[2019-09-20 14:06] LABS: % IRON SATURATION 21 % (15-50); IRON 28 ug/dL (50-175); TOTAL IRON BINDING CAPACITY 134 ug/dL (250-450)
[2019-09-20 14:20] LABS: FERRITIN 1064 NG/ML (8-388)
--- NOTE | 2019-09-20 15:30 | General Progress Note ---
Assessment/Plan Status: stable, not improved Assessment/Plan: Assessment - Anemia - Anorexia - s/p GT - malnutrition - renal failure - OBS - resolved lactic acidosis Recommendations - TF - GT care - follow labs - abx per ID Subjective Allergies: Coded Allergies: ERYTHROMYCIN BASE (Unverified Allergy, Intermediate, 07/14/19) Per patient not allergic to medications or food Subjective awake NAD s/p PEG Tolerating TF Objective Last 24 Hour Vital Signs Date Time Temp Pulse Resp B/P (MAP) Pulse Ox O2 Delivery O2 Flow Rate FiO2 09/20/19 14:18 151/85 09/20/19 12:00 69 09/20/19 10:06 100 118/73 09/20/19 10:05 100 118/73 09/20/19 08:00 99.3 100 20 118/73 (88) 98 09/20/19 08:00 78 09/20/19 05:12 158/69 09/20/19 04:00 99.8 81 20 158/69 (98) 98 09/20/19 04:00 81 09/20/19 00:00 83 09/20/19 00:00 99.0 80 20 159/63 (95) 100 09/19/19 23:24 159/63 09/19/19 21:04 100 143/80 09/19/19 21:00 Room Air 09/19/19 20:00 99.5 87 20 143/80 (101) 100 09/19/19 20:00 102 09/19/19 16:00 81 09/19/19 16:00 98.1 87 18 157/79 (105) 97 Intake and Output 09/19/19 09/20/19 18:59 06:59 Intake Total 12 ml 391.25 ml Output Total 200 ml Balance 12 ml 191.25 ml IV Total 391.25 ml Tube Feeding 12 ml Output Urine Total 200 ml # Voids 4 # Bowel Movements 3 1 Laboratory Tests 09/20/19 06:18: Sodium Level [Pending], Potassium Level [Pending], Chloride Level [Pending], Carbon Dioxide Level [Pending], Anion Gap 13, Blood Urea Nitrogen [Pending], Creatinine [Pending], Estimat Glomerular Filtration Rate [Pending], Glucose Level [Pending], Calcium Level [Pending], Iron Level 28L, Total Iron Binding Capacity 134L, Percent Iron Saturation 21, Unsaturated Iron Binding 106L, Ferritin 1064H, Total Bilirubin 0.7, Aspartate Amino Transf (AST/SGOT) 24, Alanine Aminotransferase (ALT/SGPT) 11L, Alkaline Phosphatase 45L, Total Protein 6.7, Albumin 2.0L, Globulin 4.7, Albumin/Globulin Ratio 0.4L, Thyroid Stimulating Hormone (TSH) 1.990, Free Thyroxine 1.30, Free Triiodothyronine 0.6L Height (Feet): 5 Height (Inches): 3.00 Weight (Pounds): 177 Objective WDWN AA woman NCAT supple CTA RR abd soft (+) GT no edema Mina Rao MD Sep 20, 2019 15:30
--- NOTE | 2019-09-20 15:56 | NUR ---
NURSE NOTES: reported all abnormal troponin labs to Dr. Reddy and Dr. Zhou
[2019-09-20 16:00] VITALS: BP 129/88
[2019-09-20 20:00] VITALS: BP 140/62
--- NOTE | 2019-09-20 21:20 | NUR ---
HAND-OFF: Report given to Nader/Rn.
--- NOTE | 2019-09-20 21:30 | NUR ---
NURSE NOTES: Received report from Kate Romero RN. Patient in bed AAO X3-4 with no complaints of acute pain or distress at this time. Kept clean, dry, and comfortable in bed. IV line intact and patent, placed on continuous cardiac monitoring per protocol. On bedrest for unstable gait and weakness. Patient has external urinary catheter and changed PRN when soiled. Safety precaution in place; siderails X3 up, call light within reach, bed in lowest position, brakes and alarm on at all times. Needs and wants anticipated and attended. Will continue plan of care and monitor for any changes noted. WCP taken and recorded.
[2019-09-20] MEDS: Iron Sucrose 100 MG in NS 55 ML IVPB SCH (22:18)
[2019-09-21] VITALS: BP 154/72
[2019-09-21 04:00] VITALS: BP 149/66
[2019-09-21] MEDS: D5 1/2NS 1,000 ML IV SCH (06:40)
[2019-09-21] MEDS: HydrALAZINE 50mg tab GT SCH ×3 (07:01→22:11)
[2019-09-21] MEDS: Levothyroxine 125mcg tab GT SCH (07:02)
--- NOTE | 2019-09-21 07:56 | NUR ---
NURSE NOTES: pt. awake in bed. 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 Pt has Gtube, and feeding set up 35ml/hr tolerating it well. Bed locked and in lowest position. Call light within reach. Will continue to follow plan of care
[2019-09-21 08:00] VITALS: BP 137/79
[2019-09-21 08:46] LABS: HEMATOCRIT 23.3 % (37.0-47.0); HEMOGLOBIN 7.8 G/DL (12.0-16.0); MEAN CORPUSCULAR VOLUME 92 FL (80-99); PLATELET COUNT 178 K/UL (150-450); RED BLOOD COUNT 2.54 M/UL (4.20-5.40); RED CELL DISTRIBUTION WIDTH 13.6 % (11.6-14.8)
[2019-09-21] MEDS ORDERED: Epoetin Alfa-EPBX (NON ESRD)10,000 unit/ml vial SUBQ ONE (09:00)
--- NOTE | 2019-09-21 09:02 | General Progress Note ---
Assessment/Plan Problem List: (1) Chronic kidney disease, stage III (moderate) ICD Codes: N18.3 - Chronic kidney disease, stage III (moderate) SNOMED: 690494007 (2) Hypertensive nephrosclerosis ICD Codes: I12.9 - Hypertensive chronic kidney disease with stage 1 through stage 4 chronic kidney disease, or unspecified chronic kidney disease SNOMED: 620714465 (3) CKD (chronic kidney disease) stage 4, GFR 15-29 ml/min ICD Codes: N18.4 - Chronic kidney disease, stage 4 (severe) SNOMED: 437417563 (4) Fever ICD Codes: R50.9 - Fever, unspecified SNOMED: 315559323 Qualifiers: Qualified Codes: R50.81 - Fever presenting with conditions classified elsewhere (5) Anorexia ICD Codes: R63.0 - Anorexia SNOMED: 82601614 (6) Hypothyroidism ICD Codes: E03.9 - Hypothyroidism SNOMED: 67237330 (7) Sepsis ICD Codes: A41.9 - Sepsis, unspecified organism SNOMED: 43957742 Qualifiers: Qualified Codes: A41.9 - Sepsis, unspecified organism; R65.20 - Severe sepsis without septic shock; N17.9 - Acute kidney failure, unspecified (8) Abdominal pain in female ICD Codes: R10.9 - Unspecified abdominal pain SNOMED: 02608062 (9) Acute renal failure (ARF) ICD Codes: N17.9 - Acute kidney failure, unspecified SNOMED: 52304310 Qualifiers: Qualified Codes: N17.9 - Acute kidney failure, unspecified Status: stable, not improved Assessment/Plan: cont ivf monitor renal fxn- follow up labs(pending) add ck level renal eval appreciated resume nifedipine for htn iv abx per id gt feeds per GI epogen Subjective ROS Limited/Unobtainable: No Constitutional: Reports: malaise, weakness HEENT: Reports: no symptoms Cardiovascular: Reports: no symptoms Respiratory: Reports: no symptoms Gastrointestinal/Abdominal: Reports: poor appetite, poor fluid intake Genitourinary: Reports: no symptoms Neurologic/Psychiatric: Reports: pre-existing deficit Endocrine: Reports: no symptoms Hematologic/Lymphatic: Reports: anemia Allergies: Coded Allergies: ERYTHROMYCIN BASE (Unverified Allergy, Intermediate, 07/14/19) Per patient not allergic to medications or food All Systems: reviewed and negative except above Subjective no new complaints. resting. still with anorexia and poor appetite. no fever or chills. labs pending. tolerating feeds. Objective Last 24 Hour Vital Signs Date Time Temp Pulse Resp B/P (MAP) Pulse Ox O2 Delivery O2 Flow Rate FiO2 09/21/19 07:01 149/66 09/21/19 04:00 99.2 87 18 149/66 (93) 98 09/21/19 04:00 85 09/21/19 00:00 99.1 100 20 154/72 (99) 98 09/21/19 00:00 97 09/20/19 23:40 136/75 09/20/19 22:18 78 140/62 09/20/19 21:00 Room Air 09/20/19 20:00 76 09/20/19 20:00 98.1 78 19 140/62 (88) 99 09/20/19 16:00 76 09/20/19 16:00 99.3 86 19 129/88 (102) 97 09/20/19 14:18 151/85 09/20/19 12:00 69 09/20/19 12:00 99.2 70 20 130/72 (91) 97 09/20/19 10:06 100 118/73 09/20/19 10:05 100 118/73 Intake and Output 09/20/19 09/21/19 19:00 07:00 Output Total 300 ml 500 ml Balance -300 ml -500 ml Output Urine Total 300 ml 500 ml # Bowel Movements 3 Laboratory Tests 09/21/19 07:12: White Blood Count 10.0, Red Blood Count 2.54L, Hemoglobin 7.8L, Hematocrit 23.3L , Mean Corpuscular Volume 92, Mean Corpuscular Hemoglobin 30.6, Mean Corpuscular Hemoglobin Concent 33.4, Red Cell Distribution Width 13.6, Platelet Count 178, Mean Platelet Volume 8.0, Neutrophils (%) (Auto) , Lymphocytes (%) ( Auto) , Monocytes (%) (Auto) , Eosinophils (%) (Auto) , Basophils (%) (Auto) , Neutrophils % (Manual) [Pending], Lymphocytes % (Manual) [Pending], Platelet Estimate [Pending], Platelet Morphology [Pending], Sodium Level [Pending], Potassium Level [Pending], Chloride Level [Pending], Carbon Dioxide Level [ Pending], Blood Urea Nitrogen [Pending], Creatinine [Pending], Estimat Glomerular Filtration Rate [Pending], Glucose Level [Pending], Calcium Level [ Pending] Height (Feet): 5 Height (Inches): 3.00 Weight (Pounds): 177 Objective General Appearance: WD/WN Neck: supple Cardiovascular: regular rhythm Respiratory/Chest: lungs clear Abdomen: normal bowel sounds, non tender, soft, no organomegaly Edema: no edema noted Arm (L), no edema noted Arm (R), no edema noted Leg (L), no edema noted Leg (R), no edema noted Pedal (L), no edema noted Pedal (R), no edema noted Generalized Neurologic: steel 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
[2019-09-21 09:16] LABS: ANION GAP 14 mmol/L (5-15); BLOOD UREA NITROGEN 58 mg/dL (7-18); CARBON DIOXIDE 17 MMOL/L (21-32); CHLORIDE 107 MMOL/L (98-107); CREATININE 4.8 MG/DL (0.55-1.30); POTASSIUM 3.8 MMOL/L (3.5-5.1); SODIUM 138 MMOL/L (136-145)
[2019-09-21] MEDS: Sodium Citrate 30ml GT SCH ×2 (09:25→18:00)
[2019-09-21] MEDS: Heparin 5000 units/ml inj SUBQ SCH ×2 (09:27→22:09)
--- NOTE | 2019-09-21 09:45 | NUR ---
NURSE NOTES: pt IV infiltrated unable to give zyvox. will start infusion once IV site is stabilized, pt is a hard stick.
--- NOTE | 2019-09-21 10:00 | Nephrology Progress Note ---
Assessment/Plan Problem List: (1) CHF exacerbation (2) CKD (chronic kidney disease) stage 5, GFR less than 15 ml/min (3) Anemia in chronic kidney disease (4) Sepsis (5) Anorexia (6) Hypertensive nephrosclerosis Plan G+ cocci could be from picc, s/p removal, chf consider dialysis access soon after sepsis improved,sp peg, start bicitra for acidosis,bun/creat 61/4.8 higher , hydration started cautiously, watch for recurrent chf replace K, repeat BC G+ cocci, concern for sbe watch for over hydration, epogen and venofer for anemia Subjective Constitutional: Reports: weakness HEENT: Reports: no symptoms Genitourinary: Reports: incontinence Neurologic/Psychiatric: Reports: pre-existing deficit Objective Objective Last 24 Hour Vital Signs Date Time Temp Pulse Resp B/P (MAP) Pulse Ox O2 Delivery O2 Flow Rate FiO2 09/21/19 09:25 92 137/79 09/21/19 09:25 92 137/79 09/21/19 08:00 99.0 92 20 137/79 (98) 96 09/21/19 07:01 149/66 09/21/19 04:00 99.2 87 18 149/66 (93) 98 09/21/19 04:00 85 09/21/19 00:00 99.1 100 20 154/72 (99) 98 09/21/19 00:00 97 09/20/19 23:40 136/75 09/20/19 22:18 78 140/62 09/20/19 21:00 Room Air 09/20/19 20:00 76 09/20/19 20:00 98.1 78 19 140/62 (88) 99 09/20/19 16:00 76 09/20/19 16:00 99.3 86 19 129/88 (102) 97 09/20/19 14:18 151/85 09/20/19 12:00 69 09/20/19 12:00 99.2 70 20 130/72 (91) 97 09/20/19 10:06 100 118/73 09/20/19 10:05 100 118/73 Intake and Output 09/20/19 09/21/19 19:00 07:00 Output Total 300 ml 500 ml Balance -300 ml -500 ml Output Urine Total 300 ml 500 ml # Bowel Movements 3 Laboratory Tests 09/21/19 07:12: White Blood Count 10.0, Red Blood Count 2.54L, Hemoglobin 7.8L, Hematocrit 23.3L , Mean Corpuscular Volume 92, Mean Corpuscular Hemoglobin 30.6, Mean Corpuscular Hemoglobin Concent 33.4, Red Cell Distribution Width 13.6, Platelet Count 178, Mean Platelet Volume 8.0, Neutrophils (%) (Auto) , Lymphocytes (%) ( Auto) , Monocytes (%) (Auto) , Eosinophils (%) (Auto) , Basophils (%) (Auto) , Neutrophils % (Manual) [Pending], Lymphocytes % (Manual) [Pending], Platelet Estimate [Pending], Platelet Morphology [Pending], Sodium Level 138, Potassium Level 3.8, Chloride Level 107, Carbon Dioxide Level 17L, Anion Gap 14, Blood Urea Nitrogen 58H, Creatinine 4.8H, Estimat Glomerular Filtration Rate , Glucose Level 130H, Calcium Level 9.0 Height (Feet): 5 Height (Inches): 3.00 Weight (Pounds): 177 General Appearance: no apparent distress, alert, confused EENT: normal ENT inspection Neck: normal alignment, supple Cardiovascular: regular rhythm Respiratory/Chest: lungs clear Abdomen: non tender, soft Neurologic: motor weakness Jose Lemus MD Sep 21, 2019 10:00
[2019-09-21] MEDS ORDERED: Epoetin Alfa-EPBX (NON ESRD) 2000 units/ml vial SUBQ ONE (11:00)
[2019-09-21] MEDS ORDERED: Epoetin Alfa-EPBX (NON ESRD) 3000 units/ml vial SUBQ ONE (11:00)
[2019-09-21 12:00] VITALS: BP 123/57
--- NOTE | 2019-09-21 12:08 | Infectious Diseases Prog Note ---
Assessment/Plan Assessment/Plan A 1. staph aureus( MRSA) sepsis, likely catheter infection s/p removal of PICC line 2. s/p GT placement 3. Stage V CKD 4. leucocytosis improving 5. hypertension 6. dementia 7. CHF 8. Pericardial effusion P 1. continue linezolid 2. will f/u blood cultures Subjective ROS Limited/Unobtainable: Yes Constitutional: Denies: fever Respiratory: Reports: no symptoms Genitourinary: Reports: no symptoms Allergies: Coded Allergies: ERYTHROMYCIN BASE (Unverified Allergy, Intermediate, 07/14/19) Per patient not allergic to medications or food Objective Vital Signs Last 24 Hour Vital Signs Date Time Temp Pulse Resp B/P (MAP) Pulse Ox O2 Delivery O2 Flow Rate FiO2 09/21/19 09:25 92 137/79 09/21/19 09:25 92 137/79 09/21/19 08:00 99.0 92 20 137/79 (98) 96 09/21/19 07:01 149/66 09/21/19 04:00 99.2 87 18 149/66 (93) 98 09/21/19 04:00 85 09/21/19 00:00 99.1 100 20 154/72 (99) 98 09/21/19 00:00 97 09/20/19 23:40 136/75 09/20/19 22:18 78 140/62 09/20/19 21:00 Room Air 09/20/19 20:00 76 09/20/19 20:00 98.1 78 19 140/62 (88) 99 09/20/19 16:00 76 09/20/19 16:00 99.3 86 19 129/88 (102) 97 09/20/19 14:18 151/85 Height (Feet): 5 Height (Inches): 3.00 Weight (Pounds): 177 General Appearance: no acute distress HEENT: mucous membranes moist Respiratory/Chest: rhonchi - bilaterally Cardiovascular: normal rate Abdomen: soft, non tender, other - GT feeding Extremities: other - edema of left arm Neurologic/Psychiatric: alert, responsive Microbiology Date/Time Source Procedure Growth Status 09/18/19 22:45 Blood Blood Culture - Preliminary Gram Positive Cocci Resulted 09/18/19 22:20 Blood Blood Culture - Preliminary Gram Positive Cocci Resulted Laboratory Tests Test 09/21/19 07:12 White Blood Count 10.0 K/UL (4.8-10.8) Red Blood Count 2.54 M/UL (4.20-5.40) L Hemoglobin 7.8 G/DL (12.0-16.0) L Hematocrit 23.3 % (37.0-47.0) L Mean Corpuscular Volume 92 FL (80-99) Mean Corpuscular Hemoglobin 30.6 PG (27.0-31.0) Mean Corpuscular Hemoglobin Concent 33.4 G/DL (32.0-36.0) Red Cell Distribution Width 13.6 % (11.6-14.8) Platelet Count 178 K/UL (150-450) Mean Platelet Volume 8.0 FL (6.5-10.1) Neutrophils (%) (Auto) % (45.0-75.0) Lymphocytes (%) (Auto) % (20.0-45.0) Monocytes (%) (Auto) % (1.0-10.0) Eosinophils (%) (Auto) % (0.0-3.0) Basophils (%) (Auto) % (0.0-2.0) Differential Total Cells Counted 100 Neutrophils % (Manual) 92 % (45-75) H Lymphocytes % (Manual) 4 % (20-45) L Monocytes % (Manual) 3 % (1-10) Eosinophils % (Manual) 1 % (0-3) Basophils % (Manual) 0 % (0-2) Band Neutrophils 0 % (0-8) Platelet Estimate Adequate Platelet Morphology Normal Sodium Level 138 MMOL/L (136-145) Potassium Level 3.8 MMOL/L (3.5-5.1) Chloride Level 107 MMOL/L (98-107) Carbon Dioxide Level 17 MMOL/L (21-32) L Anion Gap 14 mmol/L (5-15) Blood Urea Nitrogen 58 mg/dL (7-18) H Creatinine 4.8 MG/DL (0.55-1.30) H Estimat Glomerular Filtration Rate mL/min (>60) Glucose Level 130 MG/DL (74-106) H Calcium Level 9.0 MG/DL (8.5-10.1) Current Medications Medications (Trade) Dose Ordered Sig/Jonathan Route PRN Reason Start Time Stop Time Status Last Admin Dose Admin Acetaminophen (Tylenol) 650 mg Q6H PRN GT Mild Pain/Temp > 100.5 09/18/19 15:30 10/16/19 06:44 09/18/19 17:52 Acetaminophen/ Hydrocodone Bitart ([place] 5/325) 1 tab Q8H PRN ORAL PAIN 5-10 09/18/19 19:15 09/25/19 19:14 09/18/19 20:25 Dextrose/Sodium Chloride 1,000 ml @ 40 mls/hr Q24H IV 09/21/19 14:00 10/21/19 13:59 Epoetin Phu (Epoetin Phu-EPBX(NON ESRD)) 2,000 unit SUN-SUN-SUN SUBQ 09/15/19 21:00 10/15/19 20:59 09/19/19 21:04 Epoetin Phu (Epoetin Phu-EPBX(NON ESRD)) 3,000 unit SUN- SUBQ 09/15/19 21:00 10/15/19 20:59 09/19/19 21:04 Heparin Sodium (Porcine) (Heparin 5000 units/ml) 5,000 units EVERY 12 HOURS SUBQ 09/15/19 21:00 10/15/19 20:59 09/21/19 09:27 Hydralazine HCl (Apresoline) 100 mg Q8HR GT 09/18/19 22:00 10/15/19 22:14 09/21/19 07:01 Iron Sucrose 100 mg/Sodium Chloride 60 ml @ 240 mls/hr BEDTIME IV 09/21/19 21:00 09/25/19 21:14 Iron Sucrose 100 mg/Sodium Chloride 60 ml @ 240 mls/hr BEDTIME IVPB 09/20/19 21:00 09/24/19 21:14 09/20/19 22:18 Levothyroxine Sodium (Synthroid) 125 mcg ACBREAKFAST GT 09/19/19 06:30 10/16/19 06:29 09/21/19 07:02 Linezolid 300 ml @ 300 mls/hr Q12HR IVPB 09/15/19 21:00 09/22/19 20:59 09/21/19 09:25 Metoprolol Tartrate (Lopressor) 100 mg EVERY 12 HOURS GT 09/18/19 21:00 10/15/19 22:14 09/21/19 09:25 Nifedipine (Procardia XL) 60 mg DAILY ORAL 09/16/19 09:00 10/16/19 08:59 09/21/19 09:25 Pantoprazole (Protonix) 40 mg DAILY ORAL 09/15/19 17:15 10/15/19 17:14 09/21/19 09:26 Sodium Citrate (Bicitra) 30 ml BID GT 09/18/19 18:00 10/18/19 17:59 09/21/19 09:25 Ruperto Freedman MD Sep 21, 2019 12:08
[2019-09-21] MEDS ORDERED: D5 1/2NS 1,000 ML IV SCH (14:00)
[2019-09-21 16:00] VITALS: BP 132/62
--- NOTE | 2019-09-21 16:23 | General Progress Note ---
Assessment/Plan Status: stable, not improved Assessment/Plan: Assessment - Anemia - Anorexia - s/p GT - malnutrition - renal failure - OBS - resolved lactic acidosis Recommendations - TF - GT care - follow labs - abx per ID Subjective Allergies: Coded Allergies: ERYTHROMYCIN BASE (Unverified Allergy, Intermediate, 07/14/19) Per patient not allergic to medications or food Subjective awake NAD Tolerating TF Objective Last 24 Hour Vital Signs Date Time Temp Pulse Resp B/P (MAP) Pulse Ox O2 Delivery O2 Flow Rate FiO2 09/21/19 15:04 132/65 09/21/19 09:25 92 137/79 09/21/19 09:25 92 137/79 09/21/19 09:00 Room Air 09/21/19 08:00 99.0 92 20 137/79 (98) 96 09/21/19 07:01 149/66 09/21/19 04:00 99.2 87 18 149/66 (93) 98 09/21/19 04:00 85 09/21/19 00:00 99.1 100 20 154/72 (99) 98 09/21/19 00:00 97 09/20/19 23:40 136/75 09/20/19 22:18 78 140/62 09/20/19 21:00 Room Air 09/20/19 20:00 76 09/20/19 20:00 98.1 78 19 140/62 (88) 99 Intake and Output 09/20/19 09/21/19 19:00 07:00 Output Total 300 ml 500 ml Balance -300 ml -500 ml Output Urine Total 300 ml 500 ml # Bowel Movements 3 Laboratory Tests 09/21/19 07:12: White Blood Count 10.0, Red Blood Count 2.54L, Hemoglobin 7.8L, Hematocrit 23.3L , Mean Corpuscular Volume 92, Mean Corpuscular Hemoglobin 30.6, Mean Corpuscular Hemoglobin Concent 33.4, Red Cell Distribution Width 13.6, Platelet Count 178, Mean Platelet Volume 8.0, Neutrophils (%) (Auto) , Lymphocytes (%) ( Auto) , Monocytes (%) (Auto) , Eosinophils (%) (Auto) , Basophils (%) (Auto) , Differential Total Cells Counted 100, Neutrophils % (Manual) 92H, Lymphocytes % (Manual) 4L, Monocytes % (Manual) 3, Eosinophils % (Manual) 1, Basophils % ( Manual) 0, Band Neutrophils 0, Platelet Estimate Adequate, Platelet Morphology Normal, Sodium Level 138, Potassium Level 3.8, Chloride Level 107, Carbon Dioxide Level 17L, Anion Gap 14, Blood Urea Nitrogen 58H, Creatinine 4.8H, Estimat Glomerular Filtration Rate , Glucose Level 130H, Calcium Level 9.0 Height (Feet): 5 Height (Inches): 3.00 Weight (Pounds): 177 Objective WDWN AA woman NCAT supple CTA RR abd soft (+) GT no edema Mina Rao MD Sep 21, 2019 16:23
--- NOTE | 2019-09-21 19:22 | NUR ---
NURSE NOTES: Received report from Kate Romero RN. Patient in bed AAO X3-4 with no complaints of acute pain or distress at this time. Kept clean, dry, and comfortable in bed. IV line intact and patent, placed on continuous cardiac monitoring per protocol. On bedrest for unstable gait and weakness. Patient has external urinary catheter and changed PRN when soiled. Safety precaution in place; siderails X3 up, call light within reach, bed in lowest position, brakes and alarm on at all times. Needs and wants anticipated and attended. Will continue plan of care and monitor for any changes noted. New IV line established. RFA 24g with D5 1/2 NS at 40/hr
--- NOTE | 2019-09-21 19:37 | NUR ---
HAND-OFF: Report given to Chuckie/RN pt in stable condition.
[2019-09-21 20:00] VITALS: BP 107/68
[2019-09-21] MEDS: Iron Sucrose 100 MG in NS 55 ML IVPB SCH (20:26)
[2019-09-21] MEDS ORDERED: Iron Sucrose 100 MG in NS 55 ML IV SCH (21:00)
--- NOTE | 2019-09-21 21:45 | Progress Note ---
DATE: 09/20/2019 CARDIOLOGY PROGRESS NOTE Late entry. SUBJECTIVE: The patient is status post G-tube. Feedings are being tolerated. No residual. Positive blood cultures are noted. Urinary catheter in place. OBJECTIVE: VITAL SIGNS: Blood pressure 151/85, pulse 86, and respirations 19. LUNGS: Clear. CARDIAC: Regular. Normal S1 and S2. ABDOMEN: Soft. G-tube intact. EXTREMITIES: No edema. LABORATORY DATA: Blood cultures are positive. Final report pending. IMPRESSION: 1. Bacteremia. 2. Anemia of chronic kidney disease. 3. Hypokalemia. 4. Acute on chronic renal failure. 5. Dysphagia status post gastrostomy tube. 6. Persistent sepsis. 7. Increased risk for endocarditis. 8. History of pericardial effusion. PLAN: 1. Recheck echocardiogram. 2. Await final culture results. 3. Antimicrobials per Infectious Disease income tax consultant. 4. DVT prophylaxis. 5. Nutrition by feeding tube. 6. Monitor volume status and cardiorenal parameters closely. Lance Rivas M.D. DR: Isael JOB#: [id number] CC:
--- NOTE | 2019-09-21 21:45 | Progress Note ---
DATE: 09/21/2019 CARDIOLOGY PROGRESS NOTE SUBJECTIVE: Hemoglobin has dropped. The patient has been started on Epogen and iron replacement. She continues on IV fluid electrolyte replacement or by G-tube has been given yesterday for low potassium. OBJECTIVE: VITAL SIGNS: Blood pressure 137/79, pulse 92, respirations 20, and temperature 99 degrees. LUNGS: Diminished breath sounds. CARDIAC: Regular rhythm and rate. Normal S1 and S2. ABDOMEN: Soft. EXTREMITIES: Trace edema. LABORATORY DATA: Cultures are positive. IMPRESSION: 1. Bacteremia. 2. Sepsis status post gastrostomy tube. 3. Acute on chronic renal failure. 4. Increased risk for endocarditis despite removal of PICC line. 5. Pericardial effusion of no hemodynamic significance. 6. Hypertensive heart disease with labile blood pressure. PLAN: 1. Antimicrobials. 2. Recheck echocardiogram. 3. Follow up final blood culture results. 4. May need hemodialysis and ultrafiltration. 5. Continue iron replacement and Epogen. 6. Transfuse for further drop in hemoglobin below 7.5. 7. Cautious IV fluid hydration. Lance Rivas M.D. DR: Isael JOB#: [id number] CC:
[2019-09-21] MEDS: HYDROcodone/Acetamin 5/325 tab ORAL PRN (22:08)
[2019-09-22] VITALS (8 sets, daily range): BP systolic 140–165; BP diastolic 59–74
--- NOTE | 2019-09-22 03:30 | NUR ---
NURSE NOTES: Patient in bed asleep with no S/S of acute pain or distress noted. Will continue to monitor.
[2019-09-22] MEDS: HydrALAZINE 50mg tab GT SCH ×3 (05:12→22:08)
[2019-09-22] MEDS: Levothyroxine 125mcg tab GT SCH (05:12)
--- NOTE | 2019-09-22 07:10 | NUR ---
NURSE NOTES: Received report from Nader Streeter RN. Patient in bed AAO X3 with no complaints of acute pain or distress at this time. Patient breathing even and unlabored on room air. IV line intact and patent on right forearm 24 g, placed on continuous cardiac monitoring per protocol. On bedrest for unstable gait.. Patient has external urinary catheter. Safety precaution in place; side rails X3 up, call light within reach, bed in lowest position, brakes and alarm on at all times. Will continue plan of care and monitor for any changes noted.
--- NOTE | 2019-09-22 07:29 | General Progress Note ---
Assessment/Plan Status: stable, not improved Assessment/Plan: Assessment - Anemia - Anorexia - s/p GT - malnutrition - renal failure - OBS - resolved lactic acidosis Recommendations - TF - GT care - follow labs - abx per ID - elevate HOB Subjective Allergies: Coded Allergies: ERYTHROMYCIN BASE (Unverified Allergy, Intermediate, 07/14/19) Per patient not allergic to medications or food Subjective awake NAD Tolerating TF Objective Last 24 Hour Vital Signs Date Time Temp Pulse Resp B/P (MAP) Pulse Ox O2 Delivery O2 Flow Rate FiO2 09/22/19 05:12 146/74 09/22/19 04:00 102 09/22/19 04:00 99.7 108 21 146/74 (98) 96 09/22/19 00:00 92 09/22/19 00:00 99.8 95 21 148/59 (88) 95 09/21/19 22:11 148/70 09/21/19 21:00 Room Air 09/21/19 20:55 90 107/68 09/21/19 20:00 100.4 90 20 107/68 (81) 97 09/21/19 20:00 90 09/21/19 16:00 99.6 79 20 132/62 (85) 99 09/21/19 16:00 85 09/21/19 15:04 132/65 09/21/19 12:00 99.5 80 20 123/57 (79) 96 09/21/19 12:00 84 09/21/19 09:25 92 137/79 09/21/19 09:25 92 137/79 09/21/19 09:00 Room Air 09/21/19 08:00 99.0 92 20 137/79 (98) 96 09/21/19 08:00 89 Intake and Output 09/21/19 09/22/19 19:00 07:00 Intake Total 135 ml Output Total 450 ml 300 ml Balance -315 ml -300 ml Free Water 100 ml Tube Feeding 35 ml Output Urine Total 450 ml 300 ml # Voids 1 # Bowel Movements 1 2 Laboratory Tests 09/22/19 05:48: White Blood Count [Pending], Red Blood Count [Pending], Hemoglobin [Pending], Hematocrit [Pending], Mean Corpuscular Volume [Pending], Mean Corpuscular Hemoglobin [Pending], Mean Corpuscular Hemoglobin Concent [Pending], Red Cell Distribution Width [Pending], Platelet Count [Pending], Mean Platelet Volume [ Pending], Neutrophils (%) (Auto) [Pending], Lymphocytes (%) (Auto) [Pending], Monocytes (%) (Auto) [Pending], Eosinophils (%) (Auto) [Pending], Basophils (%) (Auto) [Pending], Sodium Level [Pending], Potassium Level [Pending], Chloride Level [Pending], Carbon Dioxide Level [Pending], Blood Urea Nitrogen [Pending], Creatinine [Pending], Estimat Glomerular Filtration Rate [Pending], Glucose Level [Pending], Calcium Level [Pending], Magnesium Level [Pending], Total Bilirubin [Pending], Aspartate Amino Transf (AST/SGOT) [Pending], Alanine Aminotransferase (ALT/SGPT) [Pending], Alkaline Phosphatase [Pending], Pro-B- Type Natriuretic Peptide [Pending], Total Protein [Pending], Albumin [Pending], Globulin [Pending] Height (Feet): 5 Height (Inches): 3.00 Weight (Pounds): 177 Objective WDWN AA woman NCAT supple CTA RR abd soft (+) GT no edema Mina Rao MD Sep 22, 2019 07:29
[2019-09-22 07:42] LABS: HEMATOCRIT 20.9 % (37.0-47.0); MEAN CORPUSCULAR VOLUME 92 FL (80-99); PLATELET COUNT 190 K/UL (150-450); RED BLOOD COUNT 2.28 M/UL (4.20-5.40); RED CELL DISTRIBUTION WIDTH 14.9 % (11.6-14.8); WHITE BLOOD COUNT 11.3 K/UL (4.8-10.8)
--- NOTE | 2019-09-22 07:47 | NUR ---
HAND-OFF: Report given to Delphine Boswell RN. Patient in bed with no S/S of distress. Endorsed plan of care.
[2019-09-22 07:59] LABS: HEMOGLOBIN 6.6 G/DL (12.0-16.0)
--- NOTE | 2019-09-22 08:03 | NUR ---
NURSE NOTES: Received critical lab value from Nancy for hgb of 6.6 @7:59am. Called Dr. Hendricks and reported lab value. Dr. Hendricks ordered 1 unit PRBC today @8:01am.
[2019-09-22 08:28] LABS: ALANINE AMINOTRANSFERASE 11 U/L (12-78); ALBUMIN 1.8 G/DL (3.4-5.0); ALBUMIN/GLOBULIN RATIO 0.4 (1.0-2.7); ALKALINE PHOSPHATASE 51 U/L (46-116); ANION GAP 12 mmol/L (5-15); ASPARTATE AMINO TRANSFERASE 24 U/L (15-37); BILIRUBIN,TOTAL 0.4 MG/DL (0.2-1.0); BLOOD UREA NITROGEN 61 mg/dL (7-18); CARBON DIOXIDE 21 MMOL/L (21-32); CHLORIDE 107 MMOL/L (98-107); CREATININE 4.6 MG/DL (0.55-1.30); POTASSIUM 3.4 MMOL/L (3.5-5.1); SODIUM 140 MMOL/L (136-145)
--- NOTE | 2019-09-22 08:40 | NUR ---
NURSE NOTES: Paged Dr. Hendricks about potassium 3.4. Awaiting call back.
--- NOTE | 2019-09-22 09:30 | NUR ---
NURSE NOTES: Spoke with Taisha Holm (daughter). Patient and daughter state they are okay with the patient wearing the pamper brought from home. Discuss with patient and daughter the risk of skin breakdown and the hospital protocol. Both agree for use of pamper. Notified Leslie NUNEZ about conversation.
[2019-09-22] MEDS: Sodium Citrate 30ml GT SCH ×2 (09:59→18:45)
[2019-09-22] MEDS: Heparin 5000 units/ml inj SUBQ SCH ×2 (10:00→21:39)
--- NOTE | 2019-09-22 10:51 | General Progress Note ---
Assessment/Plan Problem List: (1) Chronic kidney disease, stage III (moderate) ICD Codes: N18.3 - Chronic kidney disease, stage III (moderate) SNOMED: 448290769 (2) Hypertensive nephrosclerosis ICD Codes: I12.9 - Hypertensive chronic kidney disease with stage 1 through stage 4 chronic kidney disease, or unspecified chronic kidney disease SNOMED: 635835999 (3) CKD (chronic kidney disease) stage 4, GFR 15-29 ml/min ICD Codes: N18.4 - Chronic kidney disease, stage 4 (severe) SNOMED: 961657089 (4) Fever ICD Codes: R50.9 - Fever, unspecified SNOMED: 693620306 Qualifiers: Qualified Codes: R50.81 - Fever presenting with conditions classified elsewhere (5) Anorexia ICD Codes: R63.0 - Anorexia SNOMED: 45019720 (6) Hypothyroidism ICD Codes: E03.9 - Hypothyroidism SNOMED: 03658951 (7) Sepsis ICD Codes: A41.9 - Sepsis, unspecified organism SNOMED: 55064358 Qualifiers: Qualified Codes: A41.9 - Sepsis, unspecified organism; R65.20 - Severe sepsis without septic shock; N17.9 - Acute kidney failure, unspecified (8) Abdominal pain in female ICD Codes: R10.9 - Unspecified abdominal pain SNOMED: 34817754 (9) Acute renal failure (ARF) ICD Codes: N17.9 - Acute kidney failure, unspecified SNOMED: 64421381 Qualifiers: Qualified Codes: N17.9 - Acute kidney failure, unspecified Status: stable, not improved Assessment/Plan: cont ivf monitor renal fxn- transfuse renal eval appreciated iv abx per ID not ready for dc Subjective ROS Limited/Unobtainable: No Constitutional: Reports: malaise, weakness HEENT: Reports: no symptoms Cardiovascular: Reports: no symptoms Respiratory: Reports: cough Gastrointestinal/Abdominal: Reports: no symptoms Genitourinary: Reports: no symptoms Neurologic/Psychiatric: Reports: depressed, emotional problems Endocrine: Reports: no symptoms Hematologic/Lymphatic: Reports: anemia Allergies: Coded Allergies: ERYTHROMYCIN BASE (Unverified Allergy, Intermediate, 07/14/19) Per patient not allergic to medications or food All Systems: reviewed and negative except above Subjective no complaints. decreased h/h noted. no signs of bleeding. no fever or chills. tolerating feeds. not hungry Objective Last 24 Hour Vital Signs Date Time Temp Pulse Resp B/P (MAP) Pulse Ox O2 Delivery O2 Flow Rate FiO2 09/22/19 10:00 110 140/62 09/22/19 08:00 99.3 110 20 140/62 (88) 97 09/22/19 05:12 146/74 09/22/19 04:00 102 09/22/19 04:00 99.7 108 21 146/74 (98) 96 09/22/19 00:00 92 09/22/19 00:00 99.8 95 21 148/59 (88) 95 09/21/19 22:11 148/70 09/21/19 21:00 Room Air 09/21/19 20:55 90 107/68 09/21/19 20:00 100.4 90 20 107/68 (81) 97 09/21/19 20:00 90 09/21/19 16:00 99.6 79 20 132/62 (85) 99 09/21/19 16:00 85 09/21/19 15:04 132/65 09/21/19 12:00 99.5 80 20 123/57 (79) 96 09/21/19 12:00 84 Intake and Output 09/21/19 09/22/19 19:00 07:00 Intake Total 135 ml Output Total 450 ml 300 ml Balance -315 ml -300 ml Free Water 100 ml Tube Feeding 35 ml Output Urine Total 450 ml 300 ml # Voids 1 # Bowel Movements 1 2 Laboratory Tests 09/22/19 05:48: White Blood Count 11.3H, Red Blood Count 2.28L, Hemoglobin 6.6*L, Hematocrit 20.9L, Mean Corpuscular Volume 92, Mean Corpuscular Hemoglobin 29.1, Mean Corpuscular Hemoglobin Concent 31.7L, Red Cell Distribution Width 14.9H, Platelet Count 190, Mean Platelet Volume 7.1, Neutrophils (%) (Auto) , Lymphocytes (%) (Auto) , Monocytes (%) (Auto) , Eosinophils (%) (Auto) , Basophils (%) (Auto) , Differential Total Cells Counted 100, Neutrophils % ( Manual) 86H, Lymphocytes % (Manual) 8L, Monocytes % (Manual) 5, Eosinophils % ( Manual) 1, Basophils % (Manual) 0, Band Neutrophils 0, Platelet Estimate Adequate, Platelet Morphology Normal, Sodium Level 140, Potassium Level 3.4L, Chloride Level 107, Carbon Dioxide Level 21, Anion Gap 12, Blood Urea Nitrogen 61H, Creatinine 4.6H, Estimat Glomerular Filtration Rate , Glucose Level 118H, Calcium Level 9.0, Magnesium Level 1.6L, Total Bilirubin 0.4, Aspartate Amino Transf (AST/SGOT) 24, Alanine Aminotransferase (ALT/SGPT) 11L, Alkaline Phosphatase 51, Pro-B-Type Natriuretic Peptide 7521H, Total Protein 6.1L, Albumin 1.8L, Globulin 4.3, Albumin/Globulin Ratio 0.4L Height (Feet): 5 Height (Inches): 3.00 Weight (Pounds): 177 Objective General Appearance: WD/WN Neck: supple Cardiovascular: regular rhythm Respiratory/Chest: lungs clear Abdomen: normal bowel sounds, non tender, soft, no organomegaly Edema: no edema noted Arm (L), no edema noted Arm (R), no edema noted Leg (L), no edema noted Leg (R), no edema noted Pedal (L), no edema noted Pedal (R), no edema noted Generalized Neurologic: fountain pen nibs inspector II-XII grossly normal, alert, oriented x 3 Chema Hendricks MD Sep 22, 2019 10:51
--- NOTE | 2019-09-22 11:03 | Infectious Diseases Prog Note ---
Assessment/Plan Assessment/Plan antibiotics : linezolid A 1. MRSA sepsis, likely catheter infection s/p removal of PICC line 2. fever improving 3. renal failure improving 4. leucocytosis 5. hypertension 6. dementia 7. CHF P 1. continue linezolid 2. blood culture 3. will follow up cultures Subjective Constitutional: Denies: fever, chills Respiratory: Denies: shortness of breath, dry cough Gastrointestinal/Abdominal: Denies: nausea, vomiting, diarrhea Musculoskeletal: Reports: pain Allergies: Coded Allergies: ERYTHROMYCIN BASE (Unverified Allergy, Intermediate, 07/14/19) Per patient not allergic to medications or food Objective Vital Signs Last 24 Hour Vital Signs Date Time Temp Pulse Resp B/P (MAP) Pulse Ox O2 Delivery O2 Flow Rate FiO2 09/22/19 10:00 110 140/62 09/22/19 08:00 99.3 110 20 140/62 (88) 97 09/22/19 05:12 146/74 09/22/19 04:00 102 09/22/19 04:00 99.7 108 21 146/74 (98) 96 09/22/19 00:00 92 09/22/19 00:00 99.8 95 21 148/59 (88) 95 09/21/19 22:11 148/70 09/21/19 21:00 Room Air 09/21/19 20:55 90 107/68 09/21/19 20:00 100.4 90 20 107/68 (81) 97 09/21/19 20:00 90 09/21/19 16:00 99.6 79 20 132/62 (85) 99 09/21/19 16:00 85 09/21/19 15:04 132/65 09/21/19 12:00 99.5 80 20 123/57 (79) 96 09/21/19 12:00 84 Height (Feet): 5 Height (Inches): 3.00 Weight (Pounds): 177 Respiratory/Chest: lungs clear Cardiovascular: normal rate, regular rhythm, no gallop/murmur Abdomen: soft, non tender, other - GT Extremities: no edema Laboratory Tests Test 09/22/19 05:48 White Blood Count 11.3 K/UL (4.8-10.8) H Red Blood Count 2.28 M/UL (4.20-5.40) L Hemoglobin 6.6 G/DL (12.0-16.0) *L Hematocrit 20.9 % (37.0-47.0) L Mean Corpuscular Volume 92 FL (80-99) Mean Corpuscular Hemoglobin 29.1 PG (27.0-31.0) Mean Corpuscular Hemoglobin Concent 31.7 G/DL (32.0-36.0) L Red Cell Distribution Width 14.9 % (11.6-14.8) H Platelet Count 190 K/UL (150-450) Mean Platelet Volume 7.1 FL (6.5-10.1) Neutrophils (%) (Auto) % (45.0-75.0) Lymphocytes (%) (Auto) % (20.0-45.0) Monocytes (%) (Auto) % (1.0-10.0) Eosinophils (%) (Auto) % (0.0-3.0) Basophils (%) (Auto) % (0.0-2.0) Differential Total Cells Counted 100 Neutrophils % (Manual) 86 % (45-75) H Lymphocytes % (Manual) 8 % (20-45) L Monocytes % (Manual) 5 % (1-10) Eosinophils % (Manual) 1 % (0-3) Basophils % (Manual) 0 % (0-2) Band Neutrophils 0 % (0-8) Platelet Estimate Adequate Platelet Morphology Normal Sodium Level 140 MMOL/L (136-145) Potassium Level 3.4 MMOL/L (3.5-5.1) L Chloride Level 107 MMOL/L (98-107) Carbon Dioxide Level 21 MMOL/L (21-32) Anion Gap 12 mmol/L (5-15) Blood Urea Nitrogen 61 mg/dL (7-18) H Creatinine 4.6 MG/DL (0.55-1.30) H Estimat Glomerular Filtration Rate mL/min (>60) Glucose Level 118 MG/DL (74-106) H Calcium Level 9.0 MG/DL (8.5-10.1) Magnesium Level 1.6 MG/DL (1.8-2.4) L Total Bilirubin 0.4 MG/DL (0.2-1.0) Aspartate Amino Transf (AST/SGOT) 24 U/L (15-37) Alanine Aminotransferase (ALT/SGPT) 11 U/L (12-78) L Alkaline Phosphatase 51 U/L (46-116) Pro-B-Type Natriuretic Peptide 7521 pg/mL (0-125) H Total Protein 6.1 G/DL (6.4-8.2) L Albumin 1.8 G/DL (3.4-5.0) L Globulin 4.3 g/dL Albumin/Globulin Ratio 0.4 (1.0-2.7) L Current Medications Medications (Trade) Dose Ordered Sig/Jonathan Route PRN Reason Start Time Stop Time Status Last Admin Dose Admin Acetaminophen (Tylenol) 650 mg Q6H PRN GT Mild Pain/Temp > 100.5 09/18/19 15:30 10/16/19 06:44 09/18/19 17:52 Acetaminophen/ Hydrocodone Bitart ([place] 5/325) 1 tab Q8H PRN ORAL PAIN 5-10 09/18/19 19:15 09/25/19 19:14 09/21/19 22:08 Dextrose/Sodium Chloride 1,000 ml @ 40 mls/hr Q24H IV 09/21/19 14:00 10/21/19 13:59 09/21/19 15:05 Epoetin Phu (Epoetin Phu-EPBX(NON ESRD)) 2,000 unit SUN-SUN-SUN SUBQ 09/15/19 21:00 10/15/19 20:59 09/19/19 21:04 Epoetin Phu (Epoetin Phu-EPBX(NON ESRD)) 3,000 unit SUN-SUN-SUN SUBQ 09/15/19 21:00 10/15/19 20:59 09/19/19 21:04 Heparin Sodium (Porcine) (Heparin 5000 units/ml) 5,000 units EVERY 12 HOURS SUBQ 09/15/19 21:00 10/15/19 20:59 09/22/19 10:00 Hydralazine HCl (Apresoline) 100 mg Q8HR GT 09/18/19 22:00 10/15/19 22:14 09/22/19 05:12 Iron Sucrose 100 mg/Sodium Chloride 60 ml @ 240 mls/hr BEDTIME IVPB 09/20/19 21:00 09/24/19 21:14 09/21/19 20:26 Levothyroxine Sodium (Synthroid) 125 mcg ACBREAKFAST GT 09/19/19 06:30 10/16/19 06:29 09/22/19 05:12 Linezolid 300 ml @ 300 mls/hr Q12HR IVPB 09/15/19 21:00 09/22/19 20:59 09/22/19 10:07 Metoprolol Tartrate (Lopressor) 100 mg EVERY 12 HOURS GT 09/18/19 21:00 10/15/19 22:14 09/22/19 10:00 Nifedipine (Procardia XL) 60 mg DAILY ORAL 09/16/19 09:00 10/16/19 08:59 09/21/19 09:25 Pantoprazole (Protonix) 40 mg DAILY ORAL 09/15/19 17:15 10/15/19 17:14 09/21/19 09:26 Sodium Citrate (Bicitra) 30 ml BID GT 09/18/19 18:00 10/18/19 17:59 09/22/19 09:59 Jessica Reyes MD Sep 22, 2019 11:03
--- NOTE | 2019-09-22 11:20 | NUR ---
CASE MANAGEMENT:REVIEW 09/22/19 SI: SEPSIS D/Y MRSA BACTEREMIA POD #4 S/P PEG 99.8 110 20 140/62 97% ON RA H/H-6.6/20.9 BUN+61 CR+4.6 MAG-1.6 IS: IV LINEZOLID Q12 IVF@40/HR IV VENOFER LOPRESSOR GT Q12 PROCARDIA XL PO QD HYDRALAZINE GT Q8HRS HEPARIN SQ Q12 PROTONIX GT QD : TELEMETRY STATUS PLAN: TRANSFUSE PRBC'S
--- NOTE | 2019-09-22 14:34 | Nephrology Progress Note ---
Assessment/Plan Problem List: (1) CHF exacerbation (2) CKD (chronic kidney disease) stage 5, GFR less than 15 ml/min (3) Anemia in chronic kidney disease (4) Sepsis (5) Anorexia (6) Hypertensive nephrosclerosis Plan G+ cocci could be from picc, s/p removal, chf consider dialysis access soon after sepsis improved,sp peg, start bicitra for acidosis,bun/creat 61/4.8 higher , hydration started cautiously, watch for recurrent chf replace K, repeat BC G+ cocci, concern for sbe watch for over hydration, epogen and venofer for anemia, Hb 6.6 transfuse Subjective Constitutional: Reports: weakness HEENT: Reports: no symptoms Genitourinary: Reports: incontinence Neurologic/Psychiatric: Reports: pre-existing deficit Objective Objective Last 24 Hour Vital Signs Date Time Temp Pulse Resp B/P (MAP) Pulse Ox O2 Delivery O2 Flow Rate FiO2 09/22/19 12:51 99.0 93 20 143/72 (95) 96 09/22/19 12:00 99.0 93 20 165/72 (103) 96 09/22/19 11:47 90 09/22/19 10:00 110 140/62 09/22/19 09:00 Room Air 09/22/19 08:00 99.3 110 20 140/62 (88) 97 09/22/19 07:52 108 09/22/19 05:12 146/74 09/22/19 04:00 102 09/22/19 04:00 99.7 108 21 146/74 (98) 96 09/22/19 00:00 92 09/22/19 00:00 99.8 95 21 148/59 (88) 95 09/21/19 22:11 148/70 09/21/19 21:00 Room Air 09/21/19 20:55 90 107/68 09/21/19 20:00 100.4 90 20 107/68 (81) 97 09/21/19 20:00 90 09/21/19 16:00 99.6 79 20 132/62 (85) 99 09/21/19 16:00 85 09/21/19 15:04 132/65 Intake and Output 09/21/19 09/22/19 19:00 07:00 Intake Total 135 ml Output Total 450 ml 300 ml Balance -315 ml -300 ml Free Water 100 ml Tube Feeding 35 ml Output Urine Total 450 ml 300 ml # Voids 1 # Bowel Movements 1 2 Laboratory Tests 09/22/19 05:48: White Blood Count 11.3H, Red Blood Count 2.28L, Hemoglobin 6.6*L, Hematocrit 20.9L, Mean Corpuscular Volume 92, Mean Corpuscular Hemoglobin 29.1, Mean Corpuscular Hemoglobin Concent 31.7L, Red Cell Distribution Width 14.9H, Platelet Count 190, Mean Platelet Volume 7.1, Neutrophils (%) (Auto) , Lymphocytes (%) (Auto) , Monocytes (%) (Auto) , Eosinophils (%) (Auto) , Basophils (%) (Auto) , Differential Total Cells Counted 100, Neutrophils % ( Manual) 86H, Lymphocytes % (Manual) 8L, Monocytes % (Manual) 5, Eosinophils % ( Manual) 1, Basophils % (Manual) 0, Band Neutrophils 0, Platelet Estimate Adequate, Platelet Morphology Normal, Sodium Level 140, Potassium Level 3.4L, Chloride Level 107, Carbon Dioxide Level 21, Anion Gap 12, Blood Urea Nitrogen 61H, Creatinine 4.6H, Estimat Glomerular Filtration Rate , Glucose Level 118H, Calcium Level 9.0, Magnesium Level 1.6L, Total Bilirubin 0.4, Aspartate Amino Transf (AST/SGOT) 24, Alanine Aminotransferase (ALT/SGPT) 11L, Alkaline Phosphatase 51, Pro-B-Type Natriuretic Peptide 7521H, Total Protein 6.1L, Albumin 1.8L, Globulin 4.3, Albumin/Globulin Ratio 0.4L Height (Feet): 5 Height (Inches): 3.00 Weight (Pounds): 177 General Appearance: lethargic, confused EENT: normal ENT inspection Neck: normal alignment Cardiovascular: normal rate, regular rhythm Respiratory/Chest: rhonchi - bilaterally Abdomen: non tender, soft Extremities: no edema Neurologic: disoriented Jose Lemus MD Sep 22, 2019 14:34
[2019-09-22] MEDS: Acetaminophen 650mg/20.3ml GT PRN (15:28)
[2019-09-22] MEDS ORDERED: DiphenhydrAMINE 50mg/ml Inj IVP SCH (18:30)
[2019-09-22] MEDS ORDERED: Acetaminophen 650mg/20.3ml GT SCH (18:30)
--- NOTE | 2019-09-22 18:31 | NUR ---
NURSE NOTES: Blood transfusion started at 16:55. Vital signs rechecked at 17:10. Temperature is up to 99.9. Made attempt to Notify Dr. Hendricks through office phone number. Blood transfusion on hold. Notify charge nurse. Patient denies : chills, back pain,chest pain, flushing,nausea, and bleeding. Rechecked temperature at 17:40 of temperature 100.2 F and bp of 140/60. 18:00 temperature was 101F and 141/62 bp. Received call back from Dr. Hendricks relayed orders. Temperature was expected from diagnosis and not adverse reaction per Dr. Hendricks. Notified charge nurse and blood bank.
--- NOTE | 2019-09-22 19:00 | NUR ---
NURSE NOTES: Received patient from ENRIQUE Angel, patient in stable condition, AOx2,3, denies pain at this time, IV site on R wrist g22 and right forearm g24 asymptomatic, intact, patent, Gtube patent, flushed, bed low&locked , side rails upx3, call light within reach, will continue to monitor and reassess
--- NOTE | 2019-09-22 19:10 | NUR ---
HAND-OFF: Report given to ENRIQUE Xie.
[2019-09-22] MEDS ORDERED: Epoetin Alfa-EPBX (NON ESRD)10,000 unit/ml vial SUBQ SCH (21:00)
[2019-09-22] MEDS: Iron Sucrose 100 MG in NS 55 ML IVPB SCH (21:41)
[2019-09-22] MEDS: Epoetin Alfa-EPBX (NON ESRD) 3000 units/ml vial SUBQ SCH (22:06)
[2019-09-22] MEDS: Epoetin Alfa-EPBX (NON ESRD) 2000 units/ml vial SUBQ SCH (22:06)
[2019-09-23] VITALS (11 sets, daily range): BP systolic 108–157; BP diastolic 40–80
--- NOTE | 2019-09-23 03:45 | Progress Note ---
DATE: 09/22/2019 CARDIOLOGY PROGRESS NOTE SUBJECTIVE: The patient's condition is not adequately improved for discharge. Blood count is dropping. No signs of bleeding noted; however, she is eating poorly. She is getting nutrition by feeding tube. OBJECTIVE: VITAL SIGNS: Blood pressure 140/62, pulse 110, respiratory rate 28, temperature 99.3, and T-max 100.4. HEENT: Oropharynx is clear. Mucous membranes are dry. NECK: Supple. LUNGS: Diminished breath sounds. CARDIAC: Regular. Normal S1 and S2. There is a 1/6 systolic murmur. No rub. ABDOMEN: Soft. There is no edema. G-tube site intact. LABORATORY DATA: White count 11, hemoglobin 6.6, and platelets 190,000. Magnesium 1.6. BUN 16, creatinine 4.6, and potassium 3.4. Albumin 1.8. Pro-natriuretic peptide 7500. IMPRESSION: 1. Sepsis. 2. Bacteremia. 3. Increased risk for endocarditis. 4. Anemia. 5. Acute on chronic diastolic congestive heart failure. 6. History of pericardial effusion. 7. Protein-calorie malnutrition. 8. Anorexia and failure to thrive, status post G-tube. PLAN: 1. Packed red blood cell transfusion. 2. Diuresis. 3. IV magnesium. 4. Potassium replacement as needed. 5. Antimicrobials. 6. Follow up echocardiogram. 7. Consider transesophageal study for recurring bacteremia. Lance Rivas M.D. DR: BRAVO JOB#: [id number] CC:
[2019-09-23] MEDS: Acetaminophen 650mg/20.3ml GT PRN ×2 (04:24→16:38)
[2019-09-23] MEDS: Levothyroxine 125mcg tab GT SCH (06:16)
[2019-09-23] MEDS: HydrALAZINE 50mg tab GT SCH ×2 (06:18→14:00)
--- NOTE | 2019-09-23 07:40 | NUR ---
NURSE NOTES: Received report from Anne-Marie NUNEZ. Patient in bed awake and able to make needs known. alert and awake. Bed in lowest position and locked. Side railsx3 up for safety. No c/o pain. HOB elevated with 45degree. call light within easy reach. Will continue to plan of care.
--- NOTE | 2019-09-23 07:49 | NUR ---
HAND-OFF: Report given to DineshRN, patient in stable condition, plan of care endorsed
--- NOTE | 2019-09-23 07:54 | Nephrology Progress Note ---
Assessment/Plan Status: stable, not improved Assessment/Plan: \ A/P (1) CHF exacerbation- resolved. Per Dr Rivas (2) CKD (chronic kidney disease) stage 5, GFR less than 15 ml/min - AM LABS pending -G+ cocci could be from picc, s/p removal, chf consider dialysis access soon after sepsis improved,sp peg, start bicitra for acidosis (3) Anemia in chronic kidney disease - s/p Bld Tx and EPO - AM labs pending (4) Sepsis- Abx per ID (5) Hypertensive nephrosclerosis- monitor BP and adjust as needed Subjective Date patient seen: Sep 23, 2019 Time patient seen: 07:49 ROS Limited/Unobtainable: Yes Allergies: Coded Allergies: ERYTHROMYCIN BASE (Unverified Allergy, Intermediate, 07/14/19) Per patient not allergic to medications or food Subjective Patient resting in no over distress Objective Last 24 Hour Vital Signs Date Time Temp Pulse Resp B/P (MAP) Pulse Ox O2 Delivery O2 Flow Rate FiO2 09/23/19 06:18 136/67 09/23/19 06:18 136/67 (90) 09/23/19 04:54 99.4 09/23/19 04:00 100.6 92 20 140/64 (89) 96 09/23/19 04:00 87 09/23/19 00:00 99.3 93 20 121/48 (72) 97 09/23/19 00:00 93 09/22/19 22:08 147/67 09/22/19 21:42 91 147/67 09/22/19 21:00 Room Air 09/22/19 20:00 98.8 91 19 147/67 (93) 97 09/22/19 20:00 92 09/22/19 19:56 98.8 09/22/19 16:33 99.4 92 20 140/60 (86) 96 09/22/19 15:25 100.0 92 20 155/65 (95) 96 09/22/19 15:12 98 09/22/19 15:01 143/72 09/22/19 12:51 99.0 93 20 143/72 (95) 96 09/22/19 12:00 99.0 93 20 165/72 (103) 96 09/22/19 11:47 90 11/4/19 10:00 110 140/62 09/22/19 09:00 Room Air 09/22/19 08:00 99.3 110 20 140/62 (88) 97 09/22/19 07:52 108 Intake and Output 09/22/19 09/23/19 19:00 07:00 Intake Total 35 ml Balance 35 ml Tube Feeding 35 ml # Bowel Movements 1 1 Height (Feet): 5 Height (Inches): 3.00 Weight (Pounds): 177 General Appearance: no apparent distress EENT: normal ENT inspection Neck: normal alignment, supple Cardiovascular: normal rate, regular rhythm Respiratory/Chest: lungs clear, normal breath sounds Abdomen: non tender, soft Edema: no edema noted Arm (L), no edema noted Arm (R), no edema noted Leg (L), no edema noted Leg (R), no edema noted Pedal (L), no edema noted Pedal (R), no edema noted Generalized Cody Hoyos MD Sep 23, 2019 07:53
--- NOTE | 2019-09-23 08:42 | NUR ---
RADIOLOGY: PCXR COMPLETED 0845 HRS. NF
[2019-09-23 08:45] LABS: HEMATOCRIT 20.2 % (37.0-47.0); MEAN CORPUSCULAR VOLUME 92 FL (80-99); PLATELET COUNT 168 K/UL (150-450); RED BLOOD COUNT 2.19 M/UL (4.20-5.40); RED CELL DISTRIBUTION WIDTH 14.9 % (11.6-14.8)
--- NOTE | 2019-09-23 08:51 | Diagnostic Imaging Report ---
Indication: Shortness of breath Technique: One view of the chest Comparison: 09/16/2019 Findings: The lungs and pleural spaces are clear. The heart is upper limits normal in size. Calcified nodes are seen in the right hilar region. Previously demonstrated left arm PICC is no longer evident. There is no other significant change Impression: No acute process
--- NOTE | 2019-09-23 08:51 | General Progress Note ---
Assessment/Plan Problem List: (1) Chronic kidney disease, stage III (moderate) ICD Codes: N18.3 - Chronic kidney disease, stage III (moderate) SNOMED: 403951961 (2) Hypertensive nephrosclerosis ICD Codes: I12.9 - Hypertensive chronic kidney disease with stage 1 through stage 4 chronic kidney disease, or unspecified chronic kidney disease SNOMED: 603354723 (3) CKD (chronic kidney disease) stage 4, GFR 15-29 ml/min ICD Codes: N18.4 - Chronic kidney disease, stage 4 (severe) SNOMED: 270225115 (4) Fever ICD Codes: R50.9 - Fever, unspecified SNOMED: 833442083 Qualifiers: Qualified Codes: R50.81 - Fever presenting with conditions classified elsewhere (5) Anorexia ICD Codes: R63.0 - Anorexia SNOMED: 42962231 (6) Hypothyroidism ICD Codes: E03.9 - Hypothyroidism SNOMED: 06757306 (7) Sepsis ICD Codes: A41.9 - Sepsis, unspecified organism SNOMED: 27096453 Qualifiers: Qualified Codes: A41.9 - Sepsis, unspecified organism; R65.20 - Severe sepsis without septic shock; N17.9 - Acute kidney failure, unspecified (8) Abdominal pain in female ICD Codes: R10.9 - Unspecified abdominal pain SNOMED: 40708233 (9) Acute renal failure (ARF) ICD Codes: N17.9 - Acute kidney failure, unspecified SNOMED: 40969998 Qualifiers: Qualified Codes: N17.9 - Acute kidney failure, unspecified Status: stable, not improved Assessment/Plan: cont ivf monitor renal fxn- transfuse as needed follow up labs stool ob epo/iron iv abx per ID echo not ready for dc Subjective ROS Limited/Unobtainable: No Constitutional: Reports: malaise, weakness HEENT: Reports: no symptoms Cardiovascular: Reports: no symptoms Respiratory: Reports: no symptoms Gastrointestinal/Abdominal: Reports: poor appetite, poor fluid intake Genitourinary: Reports: no symptoms Neurologic/Psychiatric: Reports: pre-existing deficit Endocrine: Reports: no symptoms Hematologic/Lymphatic: Reports: no symptoms Allergies: Coded Allergies: ERYTHROMYCIN BASE (Unverified Allergy, Intermediate, 07/14/19) Per patient not allergic to medications or food All Systems: reviewed and negative except above Subjective no complaints. decreased h/h noted. no signs of bleeding. no fever or chills. tolerating feeds. not hungry +fevers. tolerating feeds. labs pending Objective Last 24 Hour Vital Signs Date Time Temp Pulse Resp B/P (MAP) Pulse Ox O2 Delivery O2 Flow Rate FiO2 09/23/19 06:18 136/67 09/23/19 06:18 136/67 (90) 09/23/19 04:54 99.4 09/23/19 04:00 100.6 92 20 140/64 (89) 96 09/23/19 04:00 87 09/23/19 00:00 99.3 93 20 121/48 (72) 97 09/23/19 00:00 93 09/22/19 22:08 147/67 09/22/19 21:42 91 147/67 09/22/19 21:00 Room Air 09/22/19 20:00 98.8 91 19 147/67 (93) 97 09/22/19 20:00 92 09/22/19 19:56 98.8 09/22/19 16:33 99.4 92 20 140/60 (86) 96 09/22/19 15:25 100.0 92 20 155/65 (95) 96 09/22/19 15:12 98 09/22/19 15:01 143/72 09/22/19 12:51 99.0 93 20 143/72 (95) 96 09/22/19 12:00 99.0 93 20 165/72 (103) 96 09/22/19 11:47 90 09/22/19 10:00 110 140/62 09/22/19 09:00 Room Air Intake and Output 09/22/19 09/23/19 19:00 07:00 Intake Total 35 ml Balance 35 ml Tube Feeding 35 ml # Bowel Movements 1 1 Laboratory Tests 09/23/19 06:22: White Blood Count [Pending], Red Blood Count [Pending], Hemoglobin [Pending], Hematocrit [Pending], Mean Corpuscular Volume [Pending], Mean Corpuscular Hemoglobin [Pending], Mean Corpuscular Hemoglobin Concent [Pending], Red Cell Distribution Width [Pending], Platelet Count [Pending], Mean Platelet Volume [ Pending], Neutrophils (%) (Auto) [Pending], Lymphocytes (%) (Auto) [Pending], Monocytes (%) (Auto) [Pending], Eosinophils (%) (Auto) [Pending], Basophils (%) (Auto) [Pending], Sodium Level [Pending], Potassium Level [Pending], Chloride Level [Pending], Carbon Dioxide Level [Pending], Blood Urea Nitrogen [Pending], Creatinine [Pending], Estimat Glomerular Filtration Rate [Pending], Glucose Level [Pending], Calcium Level [Pending] Height (Feet): 5 Height (Inches): 3.00 Weight (Pounds): 177 Objective General Appearance: WD/WN Neck: supple Cardiovascular: regular rhythm Respiratory/Chest: lungs clear Abdomen: normal bowel sounds, non tender, soft, no organomegaly Edema: no edema noted Arm (L), no edema noted Arm (R), no edema noted Leg (L), no edema noted Leg (R), no edema noted Pedal (L), no edema noted Pedal (R), no edema noted Generalized Neurologic: track walker II-XII grossly normal, alert, oriented x 3 Chema Hendricks MD Sep 23, 2019 08:51
[2019-09-23 08:56] LABS: HEMOGLOBIN 6.6 G/DL (12.0-16.0)
[2019-09-23 09:01] LABS: ANION GAP 10 mmol/L (5-15); BLOOD UREA NITROGEN 60 mg/dL (7-18); CALCIUM 9.3 MG/DL (8.5-10.1); CARBON DIOXIDE 21 MMOL/L (21-32); CHLORIDE 106 MMOL/L (98-107); CREATININE 4.5 MG/DL (0.55-1.30); POTASSIUM 3.8 MMOL/L (3.5-5.1); SODIUM 137 MMOL/L (136-145)
[2019-09-23] MEDS: Sodium Citrate 30ml GT SCH ×2 (09:07→17:21)
[2019-09-23] MEDS: Heparin 5000 units/ml inj SUBQ SCH ×2 (09:22→21:00)
--- NOTE | 2019-09-23 10:47 | Infectious Diseases Prog Note ---
Assessment/Plan Assessment/Plan antibiotics : linezolid A 1. MRSA sepsis, likely catheter infection s/p removal of PICC line 2. fever improving 3. renal failure 4. leucocytosis 5. hypertension 6. dementia 7. CHF P 1. continue linezolid 2. will follow up cultures Subjective Constitutional: Denies: fever, chills Respiratory: Denies: shortness of breath, dry cough Gastrointestinal/Abdominal: Denies: nausea, vomiting, diarrhea Musculoskeletal: Reports: pain Allergies: Coded Allergies: ERYTHROMYCIN BASE (Unverified Allergy, Intermediate, 07/14/19) Per patient not allergic to medications or food Objective Vital Signs Last 24 Hour Vital Signs Date Time Temp Pulse Resp B/P (MAP) Pulse Ox O2 Delivery O2 Flow Rate FiO2 09/23/19 09:08 82 136/54 09/23/19 09:07 82 136/54 09/23/19 08:00 98.6 82 18 136/54 (81) 96 09/23/19 08:00 86 09/23/19 06:18 136/67 09/23/19 06:18 136/67 (90) 09/23/19 04:54 99.4 09/23/19 04:00 100.6 92 20 140/64 (89) 96 09/23/19 04:00 87 09/23/19 00:00 99.3 93 20 121/48 (72) 97 09/23/19 00:00 93 09/22/19 22:08 147/67 09/22/19 21:42 91 147/67 09/22/19 21:00 Room Air 09/22/19 20:00 98.8 91 19 147/67 (93) 97 09/22/19 20:00 92 09/22/19 19:56 98.8 09/22/19 16:33 99.4 92 20 140/60 (86) 96 09/22/19 15:25 100.0 92 20 155/65 (95) 96 09/22/19 15:12 98 09/22/19 15:01 143/72 09/22/19 12:51 99.0 93 20 143/72 (95) 96 09/22/19 12:00 99.0 93 20 165/72 (103) 96 09/22/19 11:47 90 Height (Feet): 5 Height (Inches): 3.00 Weight (Pounds): 177 Respiratory/Chest: lungs clear Cardiovascular: normal rate, regular rhythm, no gallop/murmur Abdomen: soft, non tender, other - GT Extremities: no edema Laboratory Tests Test 09/23/19 06:22 White Blood Count 11.0 K/UL (4.8-10.8) H Red Blood Count 2.19 M/UL (4.20-5.40) L Hemoglobin 6.6 G/DL (12.0-16.0) *L Hematocrit 20.2 % (37.0-47.0) L Mean Corpuscular Volume 92 FL (80-99) Mean Corpuscular Hemoglobin 30.3 PG (27.0-31.0) Mean Corpuscular Hemoglobin Concent 32.9 G/DL (32.0-36.0) Red Cell Distribution Width 14.9 % (11.6-14.8) H Platelet Count 168 K/UL (150-450) Mean Platelet Volume 8.2 FL (6.5-10.1) Neutrophils (%) (Auto) % (45.0-75.0) Lymphocytes (%) (Auto) % (20.0-45.0) Monocytes (%) (Auto) % (1.0-10.0) Eosinophils (%) (Auto) % (0.0-3.0) Basophils (%) (Auto) % (0.0-2.0) Differential Total Cells Counted 100 Neutrophils % (Manual) 88 % (45-75) H Lymphocytes % (Manual) 6 % (20-45) L Monocytes % (Manual) 4 % (1-10) Eosinophils % (Manual) 2 % (0-3) Basophils % (Manual) 0 % (0-2) Band Neutrophils 0 % (0-8) Platelet Estimate Adequate Platelet Morphology Normal Hypochromasia 1+ Sodium Level 137 MMOL/L (136-145) Potassium Level 3.8 MMOL/L (3.5-5.1) Chloride Level 106 MMOL/L (98-107) Carbon Dioxide Level 21 MMOL/L (21-32) Anion Gap 10 mmol/L (5-15) Blood Urea Nitrogen 60 mg/dL (7-18) H Creatinine 4.5 MG/DL (0.55-1.30) H Estimat Glomerular Filtration Rate mL/min (>60) Glucose Level 73 MG/DL (74-106) L Calcium Level 9.3 MG/DL (8.5-10.1) Current Medications Medications (Trade) Dose Ordered Sig/Jonathan Route PRN Reason Start Time Stop Time Status Last Admin Dose Admin Acetaminophen (Tylenol) 650 mg Q6H PRN GT Mild Pain/Temp > 100.5 09/18/19 15:30 10/16/19 06:44 09/23/19 04:24 Acetaminophen/ Hydrocodone Bitart ([place] 5/325) 1 tab Q8H PRN ORAL PAIN 5-10 09/18/19 19:15 09/25/19 19:14 09/21/19 22:08 Epoetin Phu (Epoetin Phu-EPBX(NON ESRD)) 2,000 unit SUN-SUN-SUN SUBQ 09/15/19 21:00 10/15/19 20:59 09/22/19 22:06 Epoetin Phu (Epoetin Phu-EPBX(NON ESRD)) 3,000 unit SUN- SUBQ 09/15/19 21:00 10/15/19 20:59 09/22/19 22:06 Heparin Sodium (Porcine) (Heparin 5000 units/ml) 5,000 units EVERY 12 HOURS SUBQ 09/15/19 21:00 10/15/19 20:59 09/23/19 09:22 Hydralazine HCl (Apresoline) 100 mg Q8HR GT 09/18/19 22:00 10/15/19 22:14 09/23/19 06:18 Iron Sucrose 100 mg/Sodium Chloride 60 ml @ 240 mls/hr BEDTIME IVPB 09/20/19 21:00 09/24/19 21:14 09/22/19 21:41 Levothyroxine Sodium (Synthroid) 125 mcg ACBREAKFAST GT 09/19/19 06:30 10/16/19 06:29 09/23/19 06:16 Linezolid 300 ml @ 300 mls/hr Q12HR IVPB 09/22/19 21:00 09/29/19 20:59 09/23/19 09:06 Metoprolol Tartrate (Lopressor) 100 mg EVERY 12 HOURS GT 09/18/19 21:00 10/15/19 22:14 09/23/19 09:08 Nifedipine (Procardia XL) 60 mg DAILY ORAL 09/16/19 09:00 10/16/19 08:59 09/23/19 09:07 Pantoprazole (Protonix) 40 mg DAILY ORAL 09/15/19 17:15 10/15/19 17:14 09/23/19 09:08 Sodium Citrate (Bicitra) 30 ml BID GT 09/18/19 18:00 10/18/19 17:59 09/23/19 09:07 Jessica Reyes MD Sep 23, 2019 10:47
[2019-09-23] MEDS ORDERED: Acetaminophen 650mg/20.3ml GT SCH (11:00)
[2019-09-23] MEDS ORDERED: DiphenhydrAMINE 25mg/10ml Elixir GT SCH (11:00)
--- NOTE | 2019-09-23 11:07 | NUR ---
CASE MANAGEMENT:REVIEW 09/23/19 SI: SEPSIS D/T MRSA BACTEREMIA POD #5.....S/P PEG. AC/CHR CHF 100.5 82 18 136/54 96% ON RA WBC+11.0 H/H-6.6/20.2 BUN+60 CR+4.5 IS: IV LINEZOLID Q12 IV VENOFER QHS : TELEMETRY STATUS PLAN: TRANSFUSE ADDITIONAL PRBC'S
[2019-09-23] MEDS ORDERED: HYDROcodone/Acetamin 5/325 tab GT PRN (11:15)
--- NOTE | 2019-09-23 14:17 | NUR ---
RD ASSESSMENT & RECOMMENDATIONS SEE CARE ACTIVITY FOR COMPLETE ASSESSMENT DAILY ESTIMATED NEEDS: Needs based on cardiac, renal CKD stage 5 no HD, 58kg abw 25-35 kcals/kg 8838-4615 total kcals .6-1 g protein/kg 35-58 g total protein Fluid per MD NUTRITION DIAGNOSIS: 1) Altered nutrition related lab values r/t renal dysfunction as evidenced by elev creat (4.5), elev BUN 61, low Hgb (6.6). 2) Swallowing difficulty r/t dysphagia as evidenced by poor po intake, declining cognition, pt is now s/p PEG placement. CURRENT TF:NEPRO @35ml/hr x22 hrs ENTERAL NUTRITION RECOMMENDATIONS: NEPRO @35ml/hr x22 hrs to provide 770ml, 1386 kcal, 62g pro, 560ml free H2o - Maintain current TF while pt without HD - HOLD TF 1 hr before and after SYNTHROID meds - TF at goal meets 96% est kcal and 107% est pro needs. - Flush per MD, HOB over 30 degrees Monitor for HD, need for TF rate change ADDITIONAL RECOMMENDATIONS: 1) Calibrated bedscale wt for accurate CBW 2) Monitor lytes, replete as needed (low mag) -> check phos level (not done since adm) 3) Monitor for HD initiation, need to increase TF 4) SALES SUPPORT ASSOCIATE evaluation if oral diet indicated . .
--- NOTE | 2019-09-23 19:26 | NUR ---
HAND-OFF: Report given to Anne-Marie NUNZE. Pt remains stable.
--- NOTE | 2019-09-23 19:38 | General Progress Note ---
Assessment/Plan Status: stable, not improved Assessment/Plan: Assessment - Anemia - Anorexia - s/p GT - malnutrition - renal failure - OBS - resolved lactic acidosis Recommendations - TF - GT care - follow labs - abx per ID - elevate HOB Subjective Allergies: Coded Allergies: ERYTHROMYCIN BASE (Unverified Allergy, Intermediate, 07/14/19) Per patient not allergic to medications or food Subjective awake NAD Tolerating TF Objective Last 24 Hour Vital Signs Date Time Temp Pulse Resp B/P (MAP) Pulse Ox O2 Delivery O2 Flow Rate FiO2 09/23/19 16:05 98.9 89 16 135/66 (89) 96 09/23/19 16:00 98.9 66 16 114/56 (75) 96 09/23/19 16:00 87 09/23/19 14:20 99.4 09/23/19 14:00 108/40 09/23/19 13:30 100.2 09/23/19 12:24 99.6 09/23/19 12:00 100.0 68 18 108/40 (62) 95 09/23/19 12:00 71 09/23/19 09:08 82 136/54 09/23/19 09:07 82 136/54 09/23/19 09:00 Room Air 09/23/19 08:00 98.6 82 18 136/54 (81) 96 09/23/19 08:00 86 09/23/19 06:18 136/67 09/23/19 06:18 136/67 (90) 09/23/19 04:54 99.4 09/23/19 04:00 100.6 92 20 140/64 (89) 96 09/23/19 04:00 87 09/23/19 00:00 99.3 93 20 121/48 (72) 97 09/23/19 00:00 93 09/22/19 22:08 147/67 09/22/19 21:42 91 147/67 09/22/19 21:00 Room Air 09/22/19 20:00 98.8 91 19 147/67 (93) 97 09/22/19 20:00 92 09/22/19 19:56 98.8 Intake and Output 09/22/19 09/23/19 19:00 07:00 Intake Total 70 ml Balance 70 ml Tube Feeding 70 ml # Bowel Movements 1 1 Laboratory Tests 09/23/19 06:22: White Blood Count 11.0H, Red Blood Count 2.19L, Hemoglobin 6.6*L, Hematocrit 20.2L, Mean Corpuscular Volume 92, Mean Corpuscular Hemoglobin 30.3, Mean Corpuscular Hemoglobin Concent 32.9, Red Cell Distribution Width 14.9H, Platelet Count 168, Mean Platelet Volume 8.2, Neutrophils (%) (Auto) , Lymphocytes (%) (Auto) , Monocytes (%) (Auto) , Eosinophils (%) (Auto) , Basophils (%) (Auto) , Differential Total Cells Counted 100, Neutrophils % ( Manual) 88H, Lymphocytes % (Manual) 6L, Monocytes % (Manual) 4, Eosinophils % ( Manual) 2, Basophils % (Manual) 0, Band Neutrophils 0, Platelet Estimate Adequate, Platelet Morphology Normal, Hypochromasia 1+, Sodium Level 137, Potassium Level 3.8, Chloride Level 106, Carbon Dioxide Level 21, Anion Gap 10, Blood Urea Nitrogen 60H, Creatinine 4.5H, Estimat Glomerular Filtration Rate , Glucose Level 73L, Calcium Level 9.3 09/23/19 12:00: Stool Occult Blood Negative Height (Feet): 5 Height (Inches): 3.00 Weight (Pounds): 177 Objective WDWN AA woman NCAT supple CTA RR abd soft (+) GT no edema Mina Rao MD Sep 23, 2019 19:38
--- NOTE | 2019-09-23 20:30 | NUR ---
Started transfusion of 1 unit of PRBC, VSS, will continue to monitor
--- NOTE | 2019-09-23 20:45 | NUR ---
NURSE NOTES: Temp 99.2, continue the transfusion per Dr. Hendricks, given Tylenol 500mg
--- NOTE | 2019-09-23 21:00 | NUR ---
Patient stable,VSS, afebrile
[2019-09-23] MEDS ORDERED: Acetaminophen 500mg (ES) tab ORAL SCH (21:15)
--- NOTE | 2019-09-23 23:15 | NUR ---
NURSE NOTES: Received patient from ENRIQUE Angel, patient in stable condition, AOx2,3, denies pain at this time, IV site on L hand g22 and right forearm g24 asymptomatic, intact, patent, Gtube patent, flushed, bed low&locked , side rails upx3, call light within reach, will continue to monitor and reassess Addendum: 09/23/19 at 2320 by CARA LOVE RN Received patient from ENRIQUE Dominguez
[2019-09-24] VITALS (8 sets, daily range): BP systolic 143–159; BP diastolic 71–76
[2019-09-24] MEDS: Iron Sucrose 100 MG in NS 55 ML IVPB SCH ×2 (00:04→20:50)
[2019-09-24] MEDS: HydrALAZINE 50mg tab GT SCH ×4 (00:15→21:00)
--- NOTE | 2019-09-24 02:15 | Progress Note ---
DATE: 09/23/2019 CARDIOLOGY PROGRESS NOTE SUBJECTIVE: The patient is not ready for discharge. Still has low hemoglobin levels. No signs of bleeding. Tolerating tube feedings. Poor oral intake. OBJECTIVE: VITAL SIGNS: Blood pressure 140/64, pulse 92, respiratory rate 20, temperature 100.6. LUNGS: Diminished breath sounds. CARDIOVASCULAR: Regular rhythm and rate. Normal S1, S2 with a fourth heart sound. ABDOMEN: Soft. G-tube intact. EXTREMITIES: Trace edema. LABORATORY DATA: White count 11, hemoglobin 6.6. Potassium 3.8, BUN 60, creatinine 4.5. IMPRESSION: 1. Worsening anemia likely due to chronic kidney disease. 2. Hypertensive heart disease. 3. Failure to thrive. 4. Status post G-tube. 5. Progressive renal failure. PLAN: 1. Tube feedings. 2. Infectious Disease workup. 3. Antimicrobials per Infectious Disease automotive consultant. 4. Titrate antihypertensives. 5. Hold diuretics. 6. Maintain adequate hydration, and monitor volume status and cardiorenal parameters. 7. PRBC transfusion for hemoglobin below 7gm/dl. 8. May ultimately need hemodialysis. Lance Rivas M.D. DR: MELVA JOB#: [id number] CC: YUE
[2019-09-24] MEDS: Levothyroxine 125mcg tab GT SCH (05:50)
[2019-09-24 07:34] LABS: ANION GAP 14 mmol/L (5-15); BLOOD UREA NITROGEN 67 mg/dL (7-18); CALCIUM 9.6 MG/DL (8.5-10.1); CARBON DIOXIDE 20 MMOL/L (21-32); CHLORIDE 104 MMOL/L (98-107); CREATININE 4.1 MG/DL (0.55-1.30); POTASSIUM 3.8 MMOL/L (3.5-5.1); SODIUM 138 MMOL/L (136-145)
[2019-09-24 07:35] LABS: HEMATOCRIT 29.4 % (37.0-47.0); HEMOGLOBIN 9.9 G/DL (12.0-16.0); MEAN CORPUSCULAR VOLUME 90 FL (80-99); PLATELET COUNT 170 K/UL (150-450); RED BLOOD COUNT 3.27 M/UL (4.20-5.40); RED CELL DISTRIBUTION WIDTH 14.2 % (11.6-14.8); WHITE BLOOD COUNT 13.4 K/UL (4.8-10.8)
--- NOTE | 2019-09-24 07:50 | NUR ---
HAND-OFF: Report given to ENRIQUE Bain, patient in stable condition,plan of care endorsed .
--- NOTE | 2019-09-24 07:54 | General Progress Note ---
Assessment/Plan Problem List: (1) Chronic kidney disease, stage III (moderate) ICD Codes: N18.3 - Chronic kidney disease, stage III (moderate) SNOMED: 310614467 (2) Hypertensive nephrosclerosis ICD Codes: I12.9 - Hypertensive chronic kidney disease with stage 1 through stage 4 chronic kidney disease, or unspecified chronic kidney disease SNOMED: 637428601 (3) CKD (chronic kidney disease) stage 4, GFR 15-29 ml/min ICD Codes: N18.4 - Chronic kidney disease, stage 4 (severe) SNOMED: 794480490 (4) Fever ICD Codes: R50.9 - Fever, unspecified SNOMED: 771301974 Qualifiers: Qualified Codes: R50.81 - Fever presenting with conditions classified elsewhere (5) Anorexia ICD Codes: R63.0 - Anorexia SNOMED: 89539872 (6) Hypothyroidism ICD Codes: E03.9 - Hypothyroidism SNOMED: 52722998 (7) Sepsis ICD Codes: A41.9 - Sepsis, unspecified organism SNOMED: 60996305 Qualifiers: Qualified Codes: A41.9 - Sepsis, unspecified organism; R65.20 - Severe sepsis without septic shock; N17.9 - Acute kidney failure, unspecified (8) Abdominal pain in female ICD Codes: R10.9 - Unspecified abdominal pain SNOMED: 80549781 (9) Acute renal failure (ARF) ICD Codes: N17.9 - Acute kidney failure, unspecified SNOMED: 95502816 Qualifiers: Qualified Codes: N17.9 - Acute kidney failure, unspecified Status: stable, not improved Assessment/Plan: cont ivf monitor renal fxn- transfuse as needed follow up labs stool ob epo/iron iv abx per ID not ready for dc Subjective ROS Limited/Unobtainable: No Constitutional: Reports: weakness HEENT: Reports: no symptoms Cardiovascular: Reports: no symptoms Respiratory: Reports: cough Gastrointestinal/Abdominal: Reports: poor appetite, poor fluid intake Genitourinary: Reports: no symptoms Endocrine: Reports: no symptoms Hematologic/Lymphatic: Reports: anemia Allergies: Coded Allergies: ERYTHROMYCIN BASE (Unverified Allergy, Intermediate, 07/14/19) Per patient not allergic to medications or food All Systems: reviewed and negative except above Subjective no events, s/p 2 unit prbcs. low grade temps. Cr slightly better today. on iv abx. withdrawn but alert Objective Last 24 Hour Vital Signs Date Time Temp Pulse Resp B/P (MAP) Pulse Ox O2 Delivery O2 Flow Rate FiO2 09/24/19 05:50 156/76 09/24/19 05:50 156/76 (102) 09/24/19 04:07 86 09/24/19 04:00 97.1 77 19 151/75 (100) 98 09/24/19 00:15 156/76 09/24/19 00:14 91 156/76 09/24/19 00:02 98.9 91 18 156/76 (102) 98 09/24/19 00:00 89 09/24/19 00:00 98.9 91 18 156/76 (102) 98 09/23/19 22:38 98.2 09/23/19 21:00 Room Air 09/23/19 21:00 98.2 92 18 136/80 (98) 98 09/23/19 20:45 99.2 93 18 157/74 (101) 98 09/23/19 20:30 98.6 92 19 143/67 (92) 97 09/23/19 20:00 90 09/23/19 20:00 98.6 92 18 140/60 (86) 96 09/23/19 16:05 98.9 89 16 135/66 (89) 96 09/23/19 16:00 98.9 66 16 114/56 (75) 96 09/23/19 16:00 87 09/23/19 14:20 99.4 09/23/19 14:00 108/40 09/23/19 13:30 100.2 09/23/19 12:24 99.6 09/23/19 12:00 100.0 68 18 108/40 (62) 95 09/23/19 12:00 71 09/23/19 09:08 82 136/54 09/23/19 09:07 82 136/54 09/23/19 09:00 Room Air 09/23/19 08:00 98.6 82 18 136/54 (81) 96 09/23/19 08:00 86 Intake and Output 09/23/19 09/24/19 19:00 07:00 Intake Total 820 ml 540 ml Balance 820 ml 540 ml Free Water 100 ml 120 ml IV Total 300 ml Tube Feeding 420 ml 420 ml # Bowel Movements 3 1 Laboratory Tests 09/23/19 12:00: Stool Occult Blood Negative 09/24/19 06:02: White Blood Count [Pending], Red Blood Count [Pending], Hemoglobin [Pending], Hematocrit [Pending], Mean Corpuscular Volume [Pending], Mean Corpuscular Hemoglobin [Pending], Mean Corpuscular Hemoglobin Concent [Pending], Red Cell Distribution Width [Pending], Platelet Count [Pending], Mean Platelet Volume [ Pending], Neutrophils (%) (Auto) [Pending], Lymphocytes (%) (Auto) [Pending], Monocytes (%) (Auto) [Pending], Eosinophils (%) (Auto) [Pending], Basophils (%) (Auto) [Pending], Sodium Level 138, Potassium Level 3.8, Chloride Level 104, Carbon Dioxide Level 20L, Anion Gap 14, Blood Urea Nitrogen 67H, Creatinine 4.1H , Estimat Glomerular Filtration Rate , Glucose Level 97, Calcium Level 9.6 Height (Feet): 5 Height (Inches): 3.00 Weight (Pounds): 194 Objective General Appearance: WD/WN Neck: supple Cardiovascular: regular rhythm Respiratory/Chest: lungs clear Abdomen: normal bowel sounds, non tender, soft, no organomegaly Edema: no edema noted Arm (L), no edema noted Arm (R), no edema noted Leg (L), no edema noted Leg (R), no edema noted Pedal (L), no edema noted Pedal (R), no edema noted 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
[2019-09-24] MEDS: Sodium Citrate 30ml GT SCH ×2 (08:43→16:59)
[2019-09-24] MEDS: Heparin 5000 units/ml inj SUBQ SCH ×2 (08:44→20:52)
--- NOTE | 2019-09-24 08:44 | Nephrology Progress Note ---
Assessment/Plan Status: stable, not improved Assessment/Plan: \ A/P (1) CHF exacerbation- resolved. (2) CKD (chronic kidney disease) stage 5, GFR less than 15 ml/min - AM LABS pending -G+ cocci could be from picc, s/p removal, chf - will consider dialysis access after neg blood cxs (3) Anemia in chronic kidney disease - s/p Bld Tx and EPO (4) Sepsis- Abx per ID. Awaiting neg blood cxs (5) Hypertensive nephrosclerosis- monitor BP and adjust as needed Subjective Date patient seen: Sep 24, 2019 Time patient seen: 08:42 ROS Limited/Unobtainable: No Allergies: Coded Allergies: ERYTHROMYCIN BASE (Unverified Allergy, Intermediate, 07/14/19) Per patient not allergic to medications or food Subjective Patient without complaint Objective Last 24 Hour Vital Signs Date Time Temp Pulse Resp B/P (MAP) Pulse Ox O2 Delivery O2 Flow Rate FiO2 09/24/19 05:50 156/76 09/24/19 05:50 156/76 (102) 09/24/19 04:07 86 09/24/19 04:00 97.1 77 19 151/75 (100) 98 09/24/19 00:15 156/76 09/24/19 00:14 91 156/76 09/24/19 00:02 98.9 91 18 156/76 (102) 98 09/24/19 00:00 89 09/24/19 00:00 98.9 91 18 156/76 (102) 98 09/23/19 22:38 98.2 09/23/19 21:00 Room Air 09/23/19 21:00 98.2 92 18 136/80 (98) 98 09/23/19 20:45 99.2 93 18 157/74 (101) 98 09/23/19 20:30 98.6 92 19 143/67 (92) 97 09/23/19 20:00 90 09/23/19 20:00 98.6 92 18 140/60 (86) 96 09/23/19 16:05 98.9 89 16 135/66 (89) 96 09/23/19 16:00 98.9 66 16 114/56 (75) 96 09/23/19 16:00 87 09/23/19 14:20 99.4 09/23/19 14:00 108/40 09/23/19 13:30 100.2 09/23/19 12:24 99.6 09/23/19 12:00 100.0 68 18 108/40 (62) 95 09/23/19 12:00 71 09/23/19 09:08 82 136/54 09/23/19 09:07 82 136/54 09/23/19 09:00 Room Air Intake and Output 09/23/19 09/24/19 19:00 07:00 Intake Total 820 ml 540 ml Balance 820 ml 540 ml Free Water 100 ml 120 ml IV Total 300 ml Tube Feeding 420 ml 420 ml # Bowel Movements 3 1 Laboratory Tests 09/23/19 12:00: Stool Occult Blood Negative 09/24/19 06:02: White Blood Count 13.4H, Red Blood Count 3.27L, Hemoglobin 9.9#L, Hematocrit 29.4#L, Mean Corpuscular Volume 90, Mean Corpuscular Hemoglobin 30.3, Mean Corpuscular Hemoglobin Concent 33.7, Red Cell Distribution Width 14.2, Platelet Count 170, Mean Platelet Volume 7.6, Neutrophils (%) (Auto) , Lymphocytes (%) ( Auto) , Monocytes (%) (Auto) , Eosinophils (%) (Auto) , Basophils (%) (Auto) , Neutrophils % (Manual) [Pending], Lymphocytes % (Manual) [Pending], Platelet Estimate [Pending], Platelet Morphology [Pending], Sodium Level 138, Potassium Level 3.8, Chloride Level 104, Carbon Dioxide Level 20L, Anion Gap 14, Blood Urea Nitrogen 67H, Creatinine 4.1H, Estimat Glomerular Filtration Rate , Glucose Level 97, Calcium Level 9.6 Height (Feet): 5 Height (Inches): 3.00 Weight (Pounds): 194 General Appearance: no apparent distress, alert EENT: normal ENT inspection Neck: normal alignment, supple Cardiovascular: normal rate, regular rhythm Respiratory/Chest: lungs clear, normal breath sounds Abdomen: non tender, soft Edema: no edema noted Arm (L), no edema noted Arm (R), no edema noted Leg (L), no edema noted Leg (R), no edema noted Pedal (L), no edema noted Pedal (R), no edema noted Generalized Cody Hoyos MD Sep 24, 2019 08:44
--- NOTE | 2019-09-24 08:48 | NUR ---
NURSE NOTES: Received report from ENRIQUE Xie. Pt in bed, awake, talkative with garbled speech, able to communicate effectively, no respiratory distress noted, complaining of pain in abdomen 10/10, RN will administer pain medication, bed in lowest position, call light within reach.
--- NOTE | 2019-09-24 10:29 | Infectious Diseases Prog Note ---
Assessment/Plan Assessment/Plan antibiotics : linezolid A 1. MRSA sepsis, likely catheter infection s/p removal of PICC line 2. fever improving 3. renal failure 4. leucocytosis 5. hypertension 6. dementia 7. CHF P 1. continue linezolid 2. will follow up cultures Subjective Constitutional: Denies: fever, chills Respiratory: Denies: shortness of breath, dry cough Gastrointestinal/Abdominal: Denies: nausea, vomiting, diarrhea Musculoskeletal: Reports: pain - decreased Allergies: Coded Allergies: ERYTHROMYCIN BASE (Unverified Allergy, Intermediate, 07/14/19) Per patient not allergic to medications or food Objective Vital Signs Last 24 Hour Vital Signs Date Time Temp Pulse Resp B/P (MAP) Pulse Ox O2 Delivery O2 Flow Rate FiO2 09/24/19 09:00 Room Air 09/24/19 08:44 93 159/75 09/24/19 08:43 93 159/75 09/24/19 08:00 99.8 93 18 159/75 (103) 95 09/24/19 07:42 91 09/24/19 05:50 156/76 09/24/19 05:50 156/76 (102) 09/24/19 04:07 86 09/24/19 04:00 97.1 77 19 151/75 (100) 98 09/24/19 00:15 156/76 09/24/19 00:14 91 156/76 09/24/19 00:02 98.9 91 18 156/76 (102) 98 09/24/19 00:00 89 09/24/19 00:00 98.9 91 18 156/76 (102) 98 09/23/19 22:38 98.2 09/23/19 21:00 Room Air 09/23/19 21:00 98.2 92 18 136/80 (98) 98 09/23/19 20:45 99.2 93 18 157/74 (101) 98 09/23/19 20:30 98.6 92 19 143/67 (92) 97 09/23/19 20:00 90 09/23/19 20:00 98.6 92 18 140/60 (86) 96 09/23/19 16:05 98.9 89 16 135/66 (89) 96 09/23/19 16:00 98.9 66 16 114/56 (75) 96 09/23/19 16:00 87 09/23/19 14:20 99.4 09/23/19 14:00 108/40 09/23/19 13:30 100.2 09/23/19 12:24 99.6 09/23/19 12:00 100.0 68 18 108/40 (62) 95 09/23/19 12:00 71 Height (Feet): 5 Height (Inches): 3.00 Weight (Pounds): 194 Respiratory/Chest: lungs clear Cardiovascular: normal rate, regular rhythm, no gallop/murmur Abdomen: soft, non tender, other - GT Extremities: no edema Microbiology Date/Time Source Procedure Growth Status 09/22/19 11:45 Blood Blood Culture - Preliminary NO GROWTH AFTER 24 HOURS Resulted Laboratory Tests Test 09/23/19 12:00 09/24/19 06:02 Stool Occult Blood Negative (NEGATIVE) White Blood Count 13.4 K/UL (4.8-10.8) H Red Blood Count 3.27 M/UL (4.20-5.40) L Hemoglobin 9.9 G/DL (12.0-16.0) #L Hematocrit 29.4 % (37.0-47.0) #L Mean Corpuscular Volume 90 FL (80-99) Mean Corpuscular Hemoglobin 30.3 PG (27.0-31.0) Mean Corpuscular Hemoglobin Concent 33.7 G/DL (32.0-36.0) Red Cell Distribution Width 14.2 % (11.6-14.8) Platelet Count 170 K/UL (150-450) Mean Platelet Volume 7.6 FL (6.5-10.1) Neutrophils (%) (Auto) % (45.0-75.0) Lymphocytes (%) (Auto) % (20.0-45.0) Monocytes (%) (Auto) % (1.0-10.0) Eosinophils (%) (Auto) % (0.0-3.0) Basophils (%) (Auto) % (0.0-2.0) Differential Total Cells Counted 100 Neutrophils % (Manual) 93 % (45-75) H Lymphocytes % (Manual) 4 % (20-45) L Monocytes % (Manual) 2 % (1-10) Eosinophils % (Manual) 1 % (0-3) Basophils % (Manual) 0 % (0-2) Band Neutrophils 0 % (0-8) Platelet Estimate Adequate Platelet Morphology Normal Sodium Level 138 MMOL/L (136-145) Potassium Level 3.8 MMOL/L (3.5-5.1) Chloride Level 104 MMOL/L (98-107) Carbon Dioxide Level 20 MMOL/L (21-32) L Anion Gap 14 mmol/L (5-15) Blood Urea Nitrogen 67 mg/dL (7-18) H Creatinine 4.1 MG/DL (0.55-1.30) H Estimat Glomerular Filtration Rate mL/min (>60) Glucose Level 97 MG/DL (74-106) Calcium Level 9.6 MG/DL (8.5-10.1) Current Medications Medications (Trade) Dose Ordered Sig/Jonathan Route PRN Reason Start Time Stop Time Status Last Admin Dose Admin Acetaminophen (Tylenol) 650 mg Q6H PRN GT Mild Pain/Temp > 100.5 09/18/19 15:30 10/16/19 06:44 09/23/19 16:38 Acetaminophen/ Hydrocodone Bitart ([place] 5/325) 1 tab Q8H PRN GT PAIN 5-10 09/23/19 11:15 09/25/19 19:14 09/24/19 08:48 Amlodipine Besylate (Norvasc) 10 mg DAILY GT 09/24/19 09:00 10/24/19 08:59 09/24/19 08:43 Epoetin Phu (Epoetin Phu-EPBX(NON ESRD)) 2,000 unit SUBQ 09/15/19 21:00 10/15/19 20:59 09/22/19 22:06 Epoetin Phu (Epoetin Phu-EPBX(NON ESRD)) 3,000 unit SUBQ 09/15/19 21:00 10/15/19 20:59 09/22/19 22:06 Heparin Sodium (Porcine) (Heparin 5000 units/ml) 5,000 units EVERY 12 HOURS SUBQ 09/15/19 21:00 10/15/19 20:59 09/24/19 08:44 Hydralazine HCl (Apresoline) 100 mg Q8HR GT 09/18/19 22:00 10/15/19 22:14 09/24/19 05:50 Iron Sucrose 100 mg/Sodium Chloride 60 ml @ 240 mls/hr BEDTIME IVPB 09/20/19 21:00 09/24/19 21:14 09/24/19 00:04 Lansoprazole (Prevacid) 30 mg DAILY GT 09/24/19 09:00 10/24/19 08:59 09/24/19 08:44 Levothyroxine Sodium (Synthroid) 125 mcg ACBREAKFAST GT 09/19/19 06:30 10/16/19 06:29 09/24/19 05:50 Linezolid 300 ml @ 300 mls/hr Q12HR IVPB 09/22/19 21:00 09/29/19 20:59 09/24/19 08:45 Metoprolol Tartrate (Lopressor) 100 mg EVERY 12 HOURS GT 09/18/19 21:00 10/15/19 22:14 09/24/19 08:44 Sodium Citrate (Bicitra) 30 ml BID GT 09/18/19 18:00 10/18/19 17:59 09/24/19 08:43 Jessica Reyes MD Sep 24, 2019 10:29
--- NOTE | 2019-09-24 11:03 | NUR ---
CASE MANAGEMENT:REVIEW 09/24/19 SI: SEPSIS D/T MRSA BACTEREMIA POD #6.....S/P PEG. AC/CHR CHF. ACUTE RENAL FAILURE 99.8 93 18 159/75 95% ON RA WBC+13.4 H/H-9.9/29.4 BUN+67 CR+4.1 IS: IV LINEZOLID Q12 IV VENOFER QHS LOPRESSOR GT Q12 HEPARIN SQ Q12 HYDRALAZINE GT Q8HRS NORVASC GT QD : TELEMETRY STATUS DCP: PATIENT HAS BEEN REFERRED TO SNF ~ ONCE MEDICALLY CLEARED FOR DISCHARGE PLAN: MAY NEED DIALYSIS
--- NOTE | 2019-09-24 19:24 | NUR ---
HAND-OFF: Report given to ENRIQUE Xie.Pt stable.
--- NOTE | 2019-09-24 19:58 | NUR ---
NURSE NOTES: Received patient from ENRIQUE Bain, patient in stable condition, AOx2,3, denies pain at this time, IV site on L hand g22 and right forearm g24 asymptomatic, intact, patent, Gtube patent, flushed, bed low&locked , side rails upx3, call light within reach, will continue to monitor and reassess
[2019-09-24] MEDS: Acetaminophen 650mg/20.3ml GT PRN (20:49)
[2019-09-24] MEDS: Epoetin Alfa-EPBX (NON ESRD) 3000 units/ml vial SUBQ SCH (21:03)
[2019-09-24] MEDS: Epoetin Alfa-EPBX (NON ESRD) 2000 units/ml vial SUBQ SCH (21:03)
--- NOTE | 2019-09-24 23:12 | General Progress Note ---
Assessment/Plan Status: stable, not improved Assessment/Plan: Assessment - Anemia - Anorexia - s/p GT - malnutrition - renal failure - OBS - resolved lactic acidosis Recommendations - TF - GT care - follow labs - abx per ID - elevate HOB Subjective Allergies: Coded Allergies: ERYTHROMYCIN BASE (Unverified Allergy, Intermediate, 07/14/19) Per patient not allergic to medications or food Subjective awake NAD Tolerating TF Objective Last 24 Hour Vital Signs Date Time Temp Pulse Resp B/P (MAP) Pulse Ox O2 Delivery O2 Flow Rate FiO2 09/24/19 21:19 98.2 09/24/19 21:00 154/73 09/24/19 20:55 91 154/73 09/24/19 20:10 91 09/24/19 20:00 100.0 95 18 154/73 (100) 95 09/24/19 16:00 98.2 89 18 150/71 (97) 95 09/24/19 15:18 91 09/24/19 14:24 143/71 09/24/19 12:00 98.9 87 20 143/71 (95) 96 09/24/19 11:37 84 09/24/19 09:18 99.8 09/24/19 09:00 Room Air 09/24/19 08:44 93 159/75 09/24/19 08:43 93 159/75 09/24/19 08:00 99.8 93 18 159/75 (103) 95 09/24/19 07:42 91 09/24/19 05:50 156/76 09/24/19 05:50 156/76 (102) 09/24/19 04:07 86 09/24/19 04:00 97.1 77 19 151/75 (100) 98 09/24/19 00:15 156/76 09/24/19 00:14 91 156/76 09/24/19 00:02 98.9 91 18 156/76 (102) 98 09/24/19 00:00 89 09/24/19 00:00 98.9 91 18 156/76 (102) 98 Intake and Output 09/23/19 09/24/19 19:00 07:00 Intake Total 820 ml 540 ml Balance 820 ml 540 ml Free Water 100 ml 120 ml IV Total 300 ml Tube Feeding 420 ml 420 ml # Bowel Movements 3 1 Laboratory Tests 09/24/19 06:02: White Blood Count 13.4H, Red Blood Count 3.27L, Hemoglobin 9.9#L, Hematocrit 29.4#L, Mean Corpuscular Volume 90, Mean Corpuscular Hemoglobin 30.3, Mean Corpuscular Hemoglobin Concent 33.7, Red Cell Distribution Width 14.2, Platelet Count 170, Mean Platelet Volume 7.6, Neutrophils (%) (Auto) , Lymphocytes (%) ( Auto) , Monocytes (%) (Auto) , Eosinophils (%) (Auto) , Basophils (%) (Auto) , Differential Total Cells Counted 100, Neutrophils % (Manual) 93H, Lymphocytes % (Manual) 4L, Monocytes % (Manual) 2, Eosinophils % (Manual) 1, Basophils % ( Manual) 0, Band Neutrophils 0, Platelet Estimate Adequate, Platelet Morphology Normal, Sodium Level 138, Potassium Level 3.8, Chloride Level 104, Carbon Dioxide Level 20L, Anion Gap 14, Blood Urea Nitrogen 67H, Creatinine 4.1H, Estimat Glomerular Filtration Rate , Glucose Level 97, Calcium Level 9.6 Height (Feet): 5 Height (Inches): 3.00 Weight (Pounds): 194 Objective WDWN AA woman NCAT supple CTA RR abd soft (+) GT no edema Mina Rao MD Sep 24, 2019 23:12
[2019-09-25] VITALS (7 sets, daily range): BP systolic 105–154; BP diastolic 49–67
--- NOTE | 2019-09-25 02:15 | Progress Note ---
DATE: 09/24/2019 CARDIOLOGY PROGRESS NOTE SUBJECTIVE: The patient with no new complaints today. She received 2 units of packed red blood cells yesterday. She remains on antimicrobials intravenously. She is withdrawn, but alert. Receiving nutrition by feeding tube and has tolerated p.o. OBJECTIVE: VITAL SIGNS: Blood pressure 156/76, pulse 86, respirations 19, and afebrile. LUNGS: Clear with diminished breath sounds. CARDIAC: Regular rhythm and rate. Normal S1, S2 with a fourth heart sound. ABDOMEN: Soft. EXTREMITIES: There is no edema. LABORATORY DATA: White count 13.4 and hemoglobin 10. Potassium 3.8, BUN 67, and creatinine 4.1. IMPRESSION: 1. Chronic renal failure. 2. Hypertensive heart disease with slightly elevated blood pressure trend. 3. Acute on chronic diastolic congestive heart failure. 4. Pericardial effusion with no signs of tamponade clinically or echocardiographically. 5. Failure to thrive. 6. Status post G-tube with severe protein-calorie malnutrition. 7. Hypomagnesemia status post replacement therapy. 8. Anemia, multifactorial. 9. Status post transfusion. 10. MRSA sepsis status post catheter. PLAN: 1. Antimicrobials. 2. Respiratory hygiene. 3. Nutritional support by feeding tube. 4. Monitor hemoglobin. Transfuse as needed. Epogen therapy as able. 5. No diuresis at this time. 6. Off intravenous fluids. 7. Titrate antihypertensive regimen. 8. May consider follow up echocardiogram to reassess status of effusion as an outpatient on clinical parameters. Lance Rivas M.D. DR: GRACIELA JOB#: [id number] CC:
[2019-09-25] MEDS: Levothyroxine 125mcg tab GT SCH (05:43)
[2019-09-25] MEDS: HydrALAZINE 50mg tab GT SCH ×3 (05:47→22:14)
--- NOTE | 2019-09-25 07:23 | General Progress Note ---
Assessment/Plan Problem List: (1) Chronic kidney disease, stage III (moderate) ICD Codes: N18.3 - Chronic kidney disease, stage III (moderate) SNOMED: 020006134 (2) Hypertensive nephrosclerosis ICD Codes: I12.9 - Hypertensive chronic kidney disease with stage 1 through stage 4 chronic kidney disease, or unspecified chronic kidney disease SNOMED: 174846752 (3) CKD (chronic kidney disease) stage 4, GFR 15-29 ml/min ICD Codes: N18.4 - Chronic kidney disease, stage 4 (severe) SNOMED: 742605821 (4) Fever ICD Codes: R50.9 - Fever, unspecified SNOMED: 813753793 Qualifiers: Qualified Codes: R50.81 - Fever presenting with conditions classified elsewhere (5) Anorexia ICD Codes: R63.0 - Anorexia SNOMED: 20480425 (6) Hypothyroidism ICD Codes: E03.9 - Hypothyroidism SNOMED: 71923981 (7) Sepsis ICD Codes: A41.9 - Sepsis, unspecified organism SNOMED: 43301005 Qualifiers: Qualified Codes: A41.9 - Sepsis, unspecified organism; R65.20 - Severe sepsis without septic shock; N17.9 - Acute kidney failure, unspecified (8) Abdominal pain in female ICD Codes: R10.9 - Unspecified abdominal pain SNOMED: 41746664 (9) Acute renal failure (ARF) ICD Codes: N17.9 - Acute kidney failure, unspecified SNOMED: 02576213 Qualifiers: Qualified Codes: N17.9 - Acute kidney failure, unspecified Status: stable, not improved Assessment/Plan: resume ivf monitor volume status monitor renal fxn- transfuse as needed follow up labs stool ob epo/iron iv abx per ID not ready for dc Subjective ROS Limited/Unobtainable: No Constitutional: Reports: malaise, weakness HEENT: Reports: no symptoms Cardiovascular: Reports: no symptoms Respiratory: Reports: no symptoms Gastrointestinal/Abdominal: Reports: poor appetite, poor fluid intake Genitourinary: Reports: no symptoms Neurologic/Psychiatric: Reports: pre-existing deficit Endocrine: Reports: no symptoms Hematologic/Lymphatic: Reports: anemia Allergies: Coded Allergies: ERYTHROMYCIN BASE (Unverified Allergy, Intermediate, 07/14/19) Per patient not allergic to medications or food All Systems: reviewed and negative except above Subjective no complaints. no overnight events. no bleeding noted. tolerating feeds. am labs still pending, Objective Last 24 Hour Vital Signs Date Time Temp Pulse Resp B/P (MAP) Pulse Ox O2 Delivery O2 Flow Rate FiO2 09/25/19 05:47 142/61 09/25/19 05:47 142/61 (88) 09/25/19 04:00 97.5 83 20 144/63 (90) 95 09/25/19 04:00 82 09/25/19 00:00 84 09/25/19 00:00 98.6 75 19 134/64 (87) 95 09/24/19 21:19 98.2 09/24/19 21:00 Room Air 09/24/19 21:00 154/73 09/24/19 20:55 91 154/73 09/24/19 20:10 91 09/24/19 20:00 100.0 95 18 154/73 (100) 95 09/24/19 16:00 98.2 89 18 150/71 (97) 95 09/24/19 15:18 91 09/24/19 14:24 143/71 09/24/19 12:00 98.9 87 20 143/71 (95) 96 09/24/19 11:37 84 09/24/19 09:18 99.8 09/24/19 09:00 Room Air 09/24/19 08:44 93 159/75 09/24/19 08:43 93 159/75 09/24/19 08:00 99.8 93 18 159/75 (103) 95 09/24/19 07:42 91 Intake and Output 09/24/19 09/25/19 18:59 06:59 Intake Total 335 ml 365 ml Output Total 300 ml Balance 35 ml 365 ml Free Water 50 ml IV Total 300 ml Tube Feeding 35 ml 315 ml Output Urine Total 300 ml # Voids 3 # Bowel Movements 2 Laboratory Tests 09/25/19 05:47: White Blood Count [Pending], Red Blood Count [Pending], Hemoglobin [Pending], Hematocrit [Pending], Mean Corpuscular Volume [Pending], Mean Corpuscular Hemoglobin [Pending], Mean Corpuscular Hemoglobin Concent [Pending], Red Cell Distribution Width [Pending], Platelet Count [Pending], Mean Platelet Volume [ Pending], Neutrophils (%) (Auto) [Pending], Lymphocytes (%) (Auto) [Pending], Monocytes (%) (Auto) [Pending], Eosinophils (%) (Auto) [Pending], Basophils (%) (Auto) [Pending], Sodium Level [Pending], Potassium Level [Pending], Chloride Level [Pending], Carbon Dioxide Level [Pending], Blood Urea Nitrogen [Pending], Creatinine [Pending], Estimat Glomerular Filtration Rate [Pending], Glucose Level [Pending], Calcium Level [Pending], Total Bilirubin [Pending], Aspartate Amino Transf (AST/SGOT) [Pending], Alanine Aminotransferase (ALT/SGPT) [Pending] , Alkaline Phosphatase [Pending], Total Protein [Pending], Albumin [Pending], Globulin [Pending] Height (Feet): 5 Height (Inches): 3.00 Weight (Pounds): 194 Objective General Appearance: WD/WN Neck: supple Cardiovascular: regular rhythm Respiratory/Chest: lungs clear Abdomen: normal bowel sounds, non tender, soft, no organomegaly Edema: no edema noted Arm (L), no edema noted Arm (R), no edema noted Leg (L), no edema noted Leg (R), no edema noted Pedal (L), no edema noted Pedal (R), no edema noted 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
[2019-09-25 07:28] LABS: HEMATOCRIT 28.3 % (37.0-47.0); HEMOGLOBIN 9.4 G/DL (12.0-16.0); MEAN CORPUSCULAR VOLUME 90 FL (80-99); PLATELET COUNT 177 K/UL (150-450); RED BLOOD COUNT 3.15 M/UL (4.20-5.40); RED CELL DISTRIBUTION WIDTH 14.1 % (11.6-14.8); WHITE BLOOD COUNT 10.9 K/UL (4.8-10.8)
[2019-09-25 07:31] LABS: ALANINE AMINOTRANSFERASE 11 U/L (12-78); ALBUMIN 1.8 G/DL (3.4-5.0); ALBUMIN/GLOBULIN RATIO 0.4 (1.0-2.7); ALKALINE PHOSPHATASE 56 U/L (46-116); ANION GAP 12 mmol/L (5-15); ASPARTATE AMINO TRANSFERASE 24 U/L (15-37); BILIRUBIN,TOTAL 0.5 MG/DL (0.2-1.0); BLOOD UREA NITROGEN 70 mg/dL (7-18); CALCIUM 9.4 MG/DL (8.5-10.1); CARBON DIOXIDE 22 MMOL/L (21-32); CHLORIDE 104 MMOL/L (98-107); CREATININE 4.1 MG/DL (0.55-1.30); POTASSIUM 3.6 MMOL/L (3.5-5.1); SODIUM 138 MMOL/L (136-145)
--- NOTE | 2019-09-25 07:43 | NUR ---
HAND-OFF: Report given to HAND-OFF: Report given to ENRIQUE Regalado. Patient stable, endorsed plan of care.
--- NOTE | 2019-09-25 08:13 | NUR ---
NURSE NOTES: Patient received from Anne-Marie NUNEZ. Patient AOx4. No s/sx of distress and no complaints of pain. RR even and unlabored on RA. Patient dry at this time. Bed low and locked. Side rails up x2. Will continue to monitor.
[2019-09-25] MEDS: Sodium Citrate 30ml GT SCH ×2 (08:53→17:10)
[2019-09-25] MEDS: Heparin 5000 units/ml inj SUBQ SCH ×2 (08:54→21:00)
--- NOTE | 2019-09-25 10:02 | Nephrology Progress Note ---
Assessment/Plan Status: stable, not improved Assessment/Plan: \ A/P (1) CHF exacerbation- resolved. (2) CKD (chronic kidney disease) stage 5, GFR less than 15 ml/min - AM LABS pending -G+ cocci could be from picc, s/p removal, chf - Once cleared by ID will place permacath (3) Anemia in chronic kidney disease - s/p Bld Tx and EPO (4) Sepsis- Abx per ID. Awaiting neg blood cxs (5) Hypertensive nephrosclerosis- monitor BP and adjust as needed Subjective Date patient seen: Sep 25, 2019 Time patient seen: 10:01 ROS Limited/Unobtainable: No Allergies: Coded Allergies: ERYTHROMYCIN BASE (Unverified Allergy, Intermediate, 07/14/19) Per patient not allergic to medications or food Subjective Patient without complaint. resting comfortably Objective Last 24 Hour Vital Signs Date Time Temp Pulse Resp B/P (MAP) Pulse Ox O2 Delivery O2 Flow Rate FiO2 09/25/19 08:53 89 133/67 09/25/19 08:53 89 133/67 09/25/19 08:00 98.1 89 18 133/67 (89) 100 09/25/19 05:47 142/61 09/25/19 05:47 142/61 (88) 09/25/19 04:00 97.5 83 20 144/63 (90) 95 09/25/19 04:00 82 09/25/19 00:00 84 09/25/19 00:00 98.6 75 19 134/64 (87) 95 09/24/19 21:19 98.2 09/24/19 21:00 Room Air 09/24/19 21:00 154/73 09/24/19 20:55 91 154/73 09/24/19 20:10 91 09/24/19 20:00 100.0 95 18 154/73 (100) 95 09/24/19 16:00 98.2 89 18 150/71 (97) 95 09/24/19 15:18 91 09/24/19 14:24 143/71 09/24/19 12:00 98.9 87 20 143/71 (95) 96 09/24/19 11:37 84 Intake and Output 09/24/19 09/25/19 18:59 06:59 Intake Total 335 ml 365 ml Output Total 300 ml Balance 35 ml 365 ml Free Water 50 ml IV Total 300 ml Tube Feeding 35 ml 315 ml Output Urine Total 300 ml # Voids 3 # Bowel Movements 2 Laboratory Tests 09/25/19 05:47: White Blood Count 10.9H, Red Blood Count 3.15L, Hemoglobin 9.4L, Hematocrit 28.3L, Mean Corpuscular Volume 90, Mean Corpuscular Hemoglobin 29.9, Mean Corpuscular Hemoglobin Concent 33.1, Red Cell Distribution Width 14.1, Platelet Count 177, Mean Platelet Volume 7.8, Neutrophils (%) (Auto) , Lymphocytes (%) ( Auto) , Monocytes (%) (Auto) , Eosinophils (%) (Auto) , Basophils (%) (Auto) , Neutrophils % (Manual) [Pending], Lymphocytes % (Manual) [Pending], Platelet Estimate [Pending], Platelet Morphology [Pending], Sodium Level 138, Potassium Level 3.6, Chloride Level 104, Carbon Dioxide Level 22, Anion Gap 12, Blood Urea Nitrogen 70H, Creatinine 4.1H, Estimat Glomerular Filtration Rate , Glucose Level 92, Calcium Level 9.4, Total Bilirubin 0.5, Aspartate Amino Transf (AST/SGOT) 24, Alanine Aminotransferase (ALT/SGPT) 11L, Alkaline Phosphatase 56, Total Protein 6.2L, Albumin 1.8L, Globulin 4.4, Albumin/ Globulin Ratio 0.4L Height (Feet): 5 Height (Inches): 3.00 Weight (Pounds): 194 General Appearance: no apparent distress EENT: normal ENT inspection Neck: normal alignment, supple Cardiovascular: normal rate, regular rhythm Respiratory/Chest: lungs clear, normal breath sounds Abdomen: non tender, soft Edema: no edema noted Arm (L), no edema noted Arm (R), no edema noted Leg (L), no edema noted Leg (R), no edema noted Pedal (L), no edema noted Pedal (R), no edema noted Generalized Cody Hoyos MD Sep 25, 2019 10:02
--- NOTE | 2019-09-25 10:47 | NUR ---
DISCHARGE PLANNING PATIENT WAS REFERRED TO AND ACCEPTED AT [facility] (ROOM 1A)
--- NOTE | 2019-09-25 11:03 | General Progress Note ---
Assessment/Plan Status: stable, not improved Assessment/Plan: Assessment - Anemia - Anorexia - s/p GT - malnutrition - renal failure - OBS - resolved lactic acidosis Recommendations - TF - GT care - follow labs - abx per ID - elevate HOB Subjective Allergies: Coded Allergies: ERYTHROMYCIN BASE (Unverified Allergy, Intermediate, 07/14/19) Per patient not allergic to medications or food Subjective awake NAD Tolerating TF Objective Last 24 Hour Vital Signs Date Time Temp Pulse Resp B/P (MAP) Pulse Ox O2 Delivery O2 Flow Rate FiO2 09/25/19 09:00 Room Air 09/25/19 08:53 89 133/67 09/25/19 08:53 89 133/67 09/25/19 08:00 98.1 89 18 133/67 (89) 100 09/25/19 05:47 142/61 09/25/19 05:47 142/61 (88) 09/25/19 04:00 97.5 83 20 144/63 (90) 95 09/25/19 04:00 82 09/25/19 00:00 84 09/25/19 00:00 98.6 75 19 134/64 (87) 95 09/24/19 21:19 98.2 09/24/19 21:00 Room Air 09/24/19 21:00 154/73 09/24/19 20:55 91 154/73 09/24/19 20:10 91 09/24/19 20:00 100.0 95 18 154/73 (100) 95 09/24/19 16:00 98.2 89 18 150/71 (97) 95 09/24/19 15:18 91 09/24/19 14:24 143/71 09/24/19 12:00 98.9 87 20 143/71 (95) 96 09/24/19 11:37 84 Intake and Output 09/24/19 09/25/19 18:59 06:59 Intake Total 335 ml 365 ml Output Total 300 ml Balance 35 ml 365 ml Free Water 50 ml IV Total 300 ml Tube Feeding 35 ml 315 ml Output Urine Total 300 ml # Voids 3 # Bowel Movements 2 Laboratory Tests 09/25/19 05:47: White Blood Count 10.9H, Red Blood Count 3.15L, Hemoglobin 9.4L, Hematocrit 28.3L, Mean Corpuscular Volume 90, Mean Corpuscular Hemoglobin 29.9, Mean Corpuscular Hemoglobin Concent 33.1, Red Cell Distribution Width 14.1, Platelet Count 177, Mean Platelet Volume 7.8, Neutrophils (%) (Auto) , Lymphocytes (%) ( Auto) , Monocytes (%) (Auto) , Eosinophils (%) (Auto) , Basophils (%) (Auto) , Neutrophils % (Manual) [Pending], Lymphocytes % (Manual) [Pending], Platelet Estimate [Pending], Platelet Morphology [Pending], Sodium Level 138, Potassium Level 3.6, Chloride Level 104, Carbon Dioxide Level 22, Anion Gap 12, Blood Urea Nitrogen 70H, Creatinine 4.1H, Estimat Glomerular Filtration Rate , Glucose Level 92, Calcium Level 9.4, Total Bilirubin 0.5, Aspartate Amino Transf (AST/SGOT) 24, Alanine Aminotransferase (ALT/SGPT) 11L, Alkaline Phosphatase 56, Total Protein 6.2L, Albumin 1.8L, Globulin 4.4, Albumin/ Globulin Ratio 0.4L Height (Feet): 5 Height (Inches): 3.00 Weight (Pounds): 194 Objective WDWN AA woman NCAT supple CTA RR abd soft (+) GT no edema Mina Rao MD Sep 25, 2019 11:03
--- NOTE | 2019-09-25 12:15 | Infectious Diseases Prog Note ---
Assessment/Plan Assessment/Plan A 1. staph aureus( MRSA) sepsis, likely catheter infection s/p removal of PICC line 2. s/p GT placement 3. Stage V CKD 4. leucocytosis improving 5. hypertension 6. dementia 7. CHF 8. Pericardial effusion P 1. continue linezolid 2. if blood cultures remains negative until tomorrow will be cleared for Perma-cath Subjective ROS Limited/Unobtainable: Yes Constitutional: Reports: fever, other - low grade last night Respiratory: Reports: no symptoms Genitourinary: Reports: no symptoms Allergies: Coded Allergies: ERYTHROMYCIN BASE (Unverified Allergy, Intermediate, 07/14/19) Per patient not allergic to medications or food Objective Vital Signs Last 24 Hour Vital Signs Date Time Temp Pulse Resp B/P (MAP) Pulse Ox O2 Delivery O2 Flow Rate FiO2 09/25/19 11:42 98.6 84 20 105/49 (67) 96 09/25/19 09:00 Room Air 09/25/19 08:53 89 133/67 09/25/19 08:53 89 133/67 09/25/19 08:00 98.1 89 18 133/67 (89) 100 09/25/19 08:00 88 09/25/19 05:47 142/61 09/25/19 05:47 142/61 (88) 09/25/19 04:00 97.5 83 20 144/63 (90) 95 09/25/19 04:00 82 09/25/19 00:00 84 09/25/19 00:00 98.6 75 19 134/64 (87) 95 09/24/19 21:19 98.2 09/24/19 21:00 Room Air 09/24/19 21:00 154/73 09/24/19 20:55 91 154/73 09/24/19 20:10 91 09/24/19 20:00 100.0 95 18 154/73 (100) 95 09/24/19 16:00 98.2 89 18 150/71 (97) 95 09/24/19 15:18 91 09/24/19 14:24 143/71 Height (Feet): 5 Height (Inches): 3.00 Weight (Pounds): 194 General Appearance: no acute distress HEENT: mucous membranes moist Respiratory/Chest: lungs clear Cardiovascular: normal rate Abdomen: soft, non tender, other - GT feeding Extremities: no edema Neurologic/Psychiatric: alert, responsive Microbiology Date/Time Source Procedure Growth Status 09/23/19 15:15 Blood Blood Culture - Preliminary NO GROWTH AFTER 24 HOURS Resulted 09/23/19 15:05 Blood Blood Culture - Preliminary NO GROWTH AFTER 24 HOURS Resulted Laboratory Tests Test 09/25/19 05:47 White Blood Count 10.9 K/UL (4.8-10.8) H Red Blood Count 3.15 M/UL (4.20-5.40) L Hemoglobin 9.4 G/DL (12.0-16.0) L Hematocrit 28.3 % (37.0-47.0) L Mean Corpuscular Volume 90 FL (80-99) Mean Corpuscular Hemoglobin 29.9 PG (27.0-31.0) Mean Corpuscular Hemoglobin Concent 33.1 G/DL (32.0-36.0) Red Cell Distribution Width 14.1 % (11.6-14.8) Platelet Count 177 K/UL (150-450) Mean Platelet Volume 7.8 FL (6.5-10.1) Neutrophils (%) (Auto) % (45.0-75.0) Lymphocytes (%) (Auto) % (20.0-45.0) Monocytes (%) (Auto) % (1.0-10.0) Eosinophils (%) (Auto) % (0.0-3.0) Basophils (%) (Auto) % (0.0-2.0) Neutrophils % (Manual) Pending Lymphocytes % (Manual) Pending Platelet Estimate Pending Platelet Morphology Pending Sodium Level 138 MMOL/L (136-145) Potassium Level 3.6 MMOL/L (3.5-5.1) Chloride Level 104 MMOL/L (98-107) Carbon Dioxide Level 22 MMOL/L (21-32) Anion Gap 12 mmol/L (5-15) Blood Urea Nitrogen 70 mg/dL (7-18) H Creatinine 4.1 MG/DL (0.55-1.30) H Estimat Glomerular Filtration Rate mL/min (>60) Glucose Level 92 MG/DL (74-106) Calcium Level 9.4 MG/DL (8.5-10.1) Total Bilirubin 0.5 MG/DL (0.2-1.0) Aspartate Amino Transf (AST/SGOT) 24 U/L (15-37) Alanine Aminotransferase (ALT/SGPT) 11 U/L (12-78) L Alkaline Phosphatase 56 U/L (46-116) Total Protein 6.2 G/DL (6.4-8.2) L Albumin 1.8 G/DL (3.4-5.0) L Globulin 4.4 g/dL Albumin/Globulin Ratio 0.4 (1.0-2.7) L Current Medications Medications (Trade) Dose Ordered Sig/Jonathan Route PRN Reason Start Time Stop Time Status Last Admin Dose Admin Acetaminophen (Tylenol) 650 mg Q6H PRN GT Mild Pain/Temp > 100.5 09/18/19 15:30 10/16/19 06:44 09/24/19 20:49 Acetaminophen/ Hydrocodone Bitart ([place] 5/325) 1 tab Q8H PRN GT PAIN 5-10 09/23/19 11:15 09/25/19 19:14 09/24/19 08:48 Amlodipine Besylate (Norvasc) 10 mg DAILY GT 09/24/19 09:00 10/24/19 08:59 09/25/19 08:53 Epoetin Phu (Epoetin Phu-EPBX(NON ESRD)) 2,000 unit SUN-SUN-SUN SUBQ 09/15/19 21:00 10/15/19 20:59 09/24/19 21:03 Epoetin Phu (Epoetin Phu-EPBX(NON ESRD)) 3,000 unit SUBQ 09/15/19 21:00 10/15/19 20:59 09/24/19 21:03 Heparin Sodium (Porcine) (Heparin 5000 units/ml) 5,000 units EVERY 12 HOURS SUBQ 09/15/19 21:00 10/15/19 20:59 09/25/19 08:54 Hydralazine HCl (Apresoline) 100 mg Q8HR GT 09/18/19 22:00 10/15/19 22:14 09/25/19 05:47 Lansoprazole (Prevacid) 30 mg DAILY GT 09/24/19 09:00 10/24/19 08:59 09/25/19 08:53 Levothyroxine Sodium (Synthroid) 125 mcg ACBREAKFAST GT 09/19/19 06:30 10/16/19 06:29 09/25/19 05:43 Linezolid 300 ml @ 300 mls/hr Q12HR IVPB 09/22/19 21:00 09/29/19 20:59 09/25/19 08:52 Metoprolol Tartrate (Lopressor) 100 mg EVERY 12 HOURS GT 09/18/19 21:00 10/15/19 22:14 09/25/19 08:53 Sodium Chloride 1,000 ml @ 75 mls/hr [id number] IV 09/25/19 07:30 10/25/19 07:29 09/25/19 08:52 Sodium Citrate (Bicitra) 30 ml BID GT 09/18/19 18:00 10/18/19 17:59 09/25/19 08:53 Ruperto Freedman MD Sep 25, 2019 12:15
[2019-09-25] MEDS ORDERED: NS 500ML ONE (15:17)
[2019-09-25] MEDS ORDERED: NS 275ml ONE (15:17)
[2019-09-25] MEDS ORDERED: Tubing IV Blood Pump IV ONE (15:17)
--- NOTE | 2019-09-25 19:45 | NUR ---
HAND-OFF: Report given to Christian NUNEZ. Patient stable.
--- NOTE | 2019-09-25 19:46 | NUR ---
Got report from Talita NUNEZ. Pt in stable condition. Denies any pain. No s/s of distress or discomfort noted. Pt resting in bed comfortably. Bed in low and locked position, call light within reach, bedside table within reach. Continue to monitor.
--- NOTE | 2019-09-25 23:30 | Progress Note ---
DATE: 09/25/2019 CARDIOLOGY PROGRESS NOTE SUBJECTIVE: The patient has no new complaints. No signs of bleeding noted. She was transfused 2 units of packed cells two days ago. She is tolerating feedings by G-tube. Her appetite for oral intake is very poor. OBJECTIVE: VITAL SIGNS: Blood pressure 148/64, pulse 85, respirations 19, afebrile. LUNGS: Good breath sounds. CARDIAC: Regular rhythm and rate. Normal S1, S2. ABDOMEN: Soft. G-tube intact. EXTREMITIES: No edema. LABORATORY DATA: White count 10.9, hemoglobin 9.4. Potassium 3.6, BUN 70, creatinine 4.1. Albumin 1.8. IMPRESSION: 1. Chronic kidney disease, stage 5. 2. Severe protein-calorie malnutrition, status post G-tube. 3. Hypertensive heart disease with overall adequate blood pressure control at this time. 4. Acute on chronic diastolic congestive heart failure, clinically compensated. 5. Anemia of chronic kidney disease, status post transfusions. 6. Pericardial effusion presently of no hemodynamic consequence. 7. Hypomagnesemia, status post replacement therapy. 8. Bacteremia due to line sepsis with no obvious signs of endocarditis and negative surveillance cultures. PLAN: 1. Continue antimicrobials. 2. Nutrition by feeding tube. 3. Monitor renal parameters. 4. Periodic diuresis based on clinical parameters. 5. May ultimately require dialysis. 6. Titrate multidrug antihypertensive regimen. 7. Echocardiogram to evaluate pericardial effusion based on clinical findings. Lance Rivas M.D. DR: MELVA JOB#: [id number] CC:
[2019-09-26] VITALS: BP 150/70
[2019-09-26 04:00] VITALS: BP 150/70
[2019-09-26] MEDS: HydrALAZINE 50mg tab GT SCH ×3 (06:02→21:41)
[2019-09-26] MEDS: Levothyroxine 125mcg tab GT SCH (06:03)
[2019-09-26 06:53] LABS: BASOPHILS % (AUTO) 0.4 % (0.0-2.0); EOSINOPHILS % (AUTO) 1.1 % (0.0-3.0); HEMATOCRIT 26.9 % (37.0-47.0); LYMPHOCYTES % (AUTO) 10.9 % (20.0-45.0); MEAN CORPUSCULAR VOLUME 90 FL (80-99); MONOCYTES % (AUTO) 4.6 % (1.0-10.0); PLATELET COUNT 151 K/UL (150-450); RED CELL DISTRIBUTION WIDTH 13.9 % (11.6-14.8); WHITE BLOOD COUNT 8.1 K/UL (4.8-10.8)
--- NOTE | 2019-09-26 07:00 | NUR ---
HAND-OFF: Report given to Min RN.
--- NOTE | 2019-09-26 07:10 | NUR ---
NURSE NOTES: Received report from Christian NUNEZ. Pt awake and able to make needs known. No c/o pain at this time. IV site in LH 22G running with NS@75ml/hr. No acute distress noted. On room air. Bed in lowest position and locked. Side rails x3 up for safety with padding. HOB elevated with 45 degree. GT site intact and patent with feeding running with Nephro @35ml/hr. Will continue of of care.
[2019-09-26 07:13] LABS: ANION GAP 14 mmol/L (5-15); BLOOD UREA NITROGEN 76 mg/dL (7-18); CALCIUM 9.4 MG/DL (8.5-10.1); CARBON DIOXIDE 21 MMOL/L (21-32); CHLORIDE 106 MMOL/L (98-107); CREATININE 3.9 MG/DL (0.55-1.30); POTASSIUM 3.9 MMOL/L (3.5-5.1); SODIUM 141 MMOL/L (136-145)
[2019-09-26 08:00] VITALS: BP 153/70
--- NOTE | 2019-09-26 08:41 | Nephrology Progress Note ---
Assessment/Plan Status: stable, not improved Assessment/Plan: \ A/P (1) CHF exacerbation- resolved. DC IVFs today - TFs (2) CKD (chronic kidney disease) stage 5, GFR less than 15 ml/min - Cr down to 3.9 -G+ cocci could be from picc, s/p removal - Once cleared by ID will place permacath if needed (3) Anemia in chronic kidney disease - s/p Bld Tx and EPO (4) Sepsis- Abx per ID. (5) Hypertensive nephrosclerosis- monitor BP and adjust as needed Subjective Date patient seen: Sep 26, 2019 Time patient seen: 08:40 ROS Limited/Unobtainable: No Allergies: Coded Allergies: ERYTHROMYCIN BASE (Unverified Allergy, Intermediate, 07/14/19) Per patient not allergic to medications or food Subjective Patient awake and alert Objective Last 24 Hour Vital Signs Date Time Temp Pulse Resp B/P (MAP) Pulse Ox O2 Delivery O2 Flow Rate FiO2 09/26/19 06:02 150/70 09/26/19 04:00 98.2 99 20 150/70 (96) 97 09/26/19 04:00 102 09/26/19 00:00 99.0 97 20 150/70 (96) 97 09/26/19 00:00 95 09/25/19 22:14 154/60 09/25/19 21:00 Room Air 09/25/19 21:00 94 154/60 09/25/19 20:00 98.4 94 20 154/60 (91) 96 09/25/19 20:00 92 09/25/19 16:00 97.9 85 19 148/64 (92) 98 09/25/19 16:00 90 09/25/19 13:46 105/49 09/25/19 12:00 87 09/25/19 11:42 98.6 84 20 105/49 (67) 96 09/25/19 09:00 Room Air 09/25/19 08:53 89 133/67 09/25/19 08:53 89 133/67 Intake and Output 09/25/19 09/26/19 18:59 06:59 Intake Total 1350 ml Output Total 600 ml Balance 1350 ml -600 ml Free Water 30 ml IV Total 900 ml Tube Feeding 420 ml Output Urine Total 600 ml # Voids 3 # Bowel Movements 3 1 Laboratory Tests 09/26/19 05:50: White Blood Count 8.1, Red Blood Count 3.00L, Hemoglobin 9.0L, Hematocrit 26.9L , Mean Corpuscular Volume 90, Mean Corpuscular Hemoglobin 30.1, Mean Corpuscular Hemoglobin Concent 33.6, Red Cell Distribution Width 13.9, Platelet Count 151, Mean Platelet Volume 7.1, Neutrophils (%) (Auto) 83.0H, Lymphocytes ( %) (Auto) 10.9L, Monocytes (%) (Auto) 4.6, Eosinophils (%) (Auto) 1.1, Basophils (%) (Auto) 0.4, Sodium Level 141, Potassium Level 3.9, Chloride Level 106, Carbon Dioxide Level 21, Anion Gap 14, Blood Urea Nitrogen 76H, Creatinine 3.9H, Estimat Glomerular Filtration Rate , Glucose Level 83, Calcium Level 9.4, Magnesium Level 1.8 Height (Feet): 5 Height (Inches): 3.00 Weight (Pounds): 194 General Appearance: no apparent distress EENT: normal ENT inspection Neck: normal alignment, supple Cardiovascular: normal rate, regular rhythm Respiratory/Chest: lungs clear, normal breath sounds Abdomen: non tender, soft Edema: no edema noted Arm (L), no edema noted Arm (R), no edema noted Leg (L), no edema noted Leg (R), no edema noted Pedal (L), no edema noted Pedal (R), no edema noted Generalized Cody Hoyos MD Sep 26, 2019 08:41
[2019-09-26] MEDS: Sodium Citrate 30ml GT SCH ×2 (09:00→16:58)
[2019-09-26] MEDS: Heparin 5000 units/ml inj SUBQ SCH ×2 (09:14→21:46)
--- NOTE | 2019-09-26 11:03 | NUR ---
CASE MANAGEMENT:REVIEW 09/26/19 SI: SEPSIS D/T MRSA BACTEREMIA S/P NEW PEG. AC/CHR CHF. ACUTE RENAL FAILURE 99.0 104 18 153/70 96% ON RA H/H-9.0/26.9 BUN+76 CR+3.9 IS: IV LINEZOLID Q12 IV VENOFER QHS LOPRESSOR GT Q12 HEPARIN SQ Q12 HYDRALAZINE GT Q8HRS NORVASC GT QD : TELEMETRY STATUS DCP: PATIENT HAS BEEN REFERRED TO SNF ~ ONCE MEDICALLY CLEARED FOR DISCHARGE PLAN: MAY NEED DIALYSIS
[2019-09-26 12:00] VITALS: BP 137/68
--- NOTE | 2019-09-26 12:19 | Infectious Diseases Prog Note ---
Assessment/Plan Assessment/Plan A 1. staph aureus( MRSA) sepsis, likely catheter infection s/p removal of PICC line 2. s/p GT placement 3. Stage V CKD 4. leucocytosis resolved 5. hypertension 6. dementia 7. CHF 8. Pericardial effusion P 1. continue linezolid 2. cleared for Perma-cath placement Subjective ROS Limited/Unobtainable: Yes Constitutional: Denies: fever Respiratory: Reports: no symptoms Gastrointestinal/Abdominal: Reports: other - abdominal pain Genitourinary: Reports: no symptoms Allergies: Coded Allergies: ERYTHROMYCIN BASE (Unverified Allergy, Intermediate, 07/14/19) Per patient not allergic to medications or food Objective Vital Signs Last 24 Hour Vital Signs Date Time Temp Pulse Resp B/P (MAP) Pulse Ox O2 Delivery O2 Flow Rate FiO2 09/26/19 09:12 104 153/70 09/26/19 09:12 104 153/70 09/26/19 09:00 Room Air 09/26/19 08:00 99.0 104 18 153/70 (97) 96 09/26/19 08:00 102 09/26/19 06:02 150/70 09/26/19 04:00 98.2 99 20 150/70 (96) 97 09/26/19 04:00 102 09/26/19 00:00 99.0 97 20 150/70 (96) 97 09/26/19 00:00 95 09/25/19 22:14 154/60 09/25/19 21:00 Room Air 09/25/19 21:00 94 154/60 09/25/19 20:00 98.4 94 20 154/60 (91) 96 09/25/19 20:00 92 09/25/19 16:00 97.9 85 19 148/64 (92) 98 09/25/19 16:00 90 09/25/19 13:46 105/49 Height (Feet): 5 Height (Inches): 3.00 Weight (Pounds): 194 General Appearance: no acute distress HEENT: mucous membranes moist Respiratory/Chest: lungs clear Cardiovascular: tachycardia Abdomen: soft, non tender, other - GT feeding Extremities: no edema Neurologic/Psychiatric: alert, responsive Microbiology Date/Time Source Procedure Growth Status 09/23/19 15:15 Blood Blood Culture - Preliminary NO GROWTH AFTER 48 HOURS Resulted 09/23/19 15:05 Blood Blood Culture - Preliminary NO GROWTH AFTER 48 HOURS Resulted Laboratory Tests Test 09/26/19 05:50 White Blood Count 8.1 K/UL (4.8-10.8) Red Blood Count 3.00 M/UL (4.20-5.40) L Hemoglobin 9.0 G/DL (12.0-16.0) L Hematocrit 26.9 % (37.0-47.0) L Mean Corpuscular Volume 90 FL (80-99) Mean Corpuscular Hemoglobin 30.1 PG (27.0-31.0) Mean Corpuscular Hemoglobin Concent 33.6 G/DL (32.0-36.0) Red Cell Distribution Width 13.9 % (11.6-14.8) Platelet Count 151 K/UL (150-450) Mean Platelet Volume 7.1 FL (6.5-10.1) Neutrophils (%) (Auto) 83.0 % (45.0-75.0) H Lymphocytes (%) (Auto) 10.9 % (20.0-45.0) L Monocytes (%) (Auto) 4.6 % (1.0-10.0) Eosinophils (%) (Auto) 1.1 % (0.0-3.0) Basophils (%) (Auto) 0.4 % (0.0-2.0) Sodium Level 141 MMOL/L (136-145) Potassium Level 3.9 MMOL/L (3.5-5.1) Chloride Level 106 MMOL/L (98-107) Carbon Dioxide Level 21 MMOL/L (21-32) Anion Gap 14 mmol/L (5-15) Blood Urea Nitrogen 76 mg/dL (7-18) H Creatinine 3.9 MG/DL (0.55-1.30) H Estimat Glomerular Filtration Rate mL/min (>60) Glucose Level 83 MG/DL (74-106) Calcium Level 9.4 MG/DL (8.5-10.1) Magnesium Level 1.8 MG/DL (1.8-2.4) Current Medications Medications (Trade) Dose Ordered Sig/Jonathan Route PRN Reason Start Time Stop Time Status Last Admin Dose Admin Acetaminophen (Tylenol) 650 mg Q6H PRN GT Mild Pain/Temp > 100.5 09/18/19 15:30 10/16/19 06:44 09/24/19 20:49 Amlodipine Besylate (Norvasc) 10 mg DAILY GT 09/24/19 09:00 10/24/19 08:59 09/26/19 09:12 Epoetin Phu (Epoetin Phu-EPBX(NON ESRD)) 2,000 unit SUN-SUN-SUN SUBQ 09/15/19 21:00 10/15/19 20:59 09/24/19 21:03 Epoetin Phu (Epoetin Phu-EPBX(NON ESRD)) 3,000 unit SUN-SUN-SUN SUBQ 09/15/19 21:00 10/15/19 20:59 09/24/19 21:03 Heparin Sodium (Porcine) (Heparin 5000 units/ml) 5,000 units EVERY 12 HOURS SUBQ 09/15/19 21:00 10/15/19 20:59 09/26/19 09:14 Hydralazine HCl (Apresoline) 100 mg Q8HR GT 09/18/19 22:00 10/15/19 22:14 09/26/19 06:02 Lansoprazole (Prevacid) 30 mg DAILY GT 09/24/19 09:00 10/24/19 08:59 09/26/19 09:12 Levothyroxine Sodium (Synthroid) 125 mcg ACBREAKFAST GT 09/19/19 06:30 10/16/19 06:29 09/26/19 06:03 Linezolid 300 ml @ 300 mls/hr Q12HR IVPB 09/22/19 21:00 09/29/19 20:59 09/26/19 09:15 Metoprolol Tartrate (Lopressor) 100 mg EVERY 12 HOURS GT 09/18/19 21:00 10/15/19 22:14 09/26/19 09:12 Sodium Citrate (Bicitra) 30 ml BID GT 09/18/19 18:00 10/18/19 17:59 09/25/19 17:10 Ruperto Freedman MD Sep 26, 2019 12:18
--- NOTE | 2019-09-26 13:34 | NUR ---
DISCHARGE PLANNING PATIENT HAS A BED RESERVED AT [facility] (ROOM 14A)
--- NOTE | 2019-09-26 14:30 | NUR ---
RD ASSESSMENT & RECOMMENDATIONS SEE CARE ACTIVITY FOR COMPLETE ASSESSMENT DAILY ESTIMATED NEEDS: Needs based on cardiac, renal CKD stage 5 no HD, 58kg abw 25-35 kcals/kg [id number] total kcals .6-1 g protein/kg 35-58 g total protein Fluid per MD mL/kg . total fluid mLs NUTRITION DIAGNOSIS: 1) Altered nutrition related lab values r/t renal dysfunction as evidenced by elev creat (4.5 -> 3.5 lowering), elev BUN 76, low Hgb (6.6 -> 9.0). 2) Swallowing difficulty r/t dysphagia as evidenced by poor po intake, declining cognition, pt is now s/p PEG placement. CURRENT TF:NEPRO @35ml/hr x22 hrs ENTERAL NUTRITION RECOMMENDATIONS: NEPRO @35ml/hr x22 hrs to provide 770ml, 1386 kcal, 62g pro, 560ml free H2o - Maintain current TF while pt without HD - HOLD TF 1 hr before and after SYNTHROID meds - TF at goal meets 96% est kcal and 107% est pro needs. - Flush per MD, HOB over 30 degrees Monitor for HD, need for TF rate change ADDITIONAL RECOMMENDATIONS: 1) Calibrated bedscale wt for accurate CBW 2) Monitor lytes, replete as needed -> check phos level (not done since adm) 3) Monitor for HD initiation, need to adjust/ increase TF 4) [employer] evaluation if oral diet indicated . .
--- NOTE | 2019-09-26 14:30 | General Progress Note ---
Assessment/Plan Problem List: (1) Chronic kidney disease, stage III (moderate) ICD Codes: N18.3 - Chronic kidney disease, stage III (moderate) SNOMED: 784237986 (2) Hypertensive nephrosclerosis ICD Codes: I12.9 - Hypertensive chronic kidney disease with stage 1 through stage 4 chronic kidney disease, or unspecified chronic kidney disease SNOMED: 861506177 (3) CKD (chronic kidney disease) stage 4, GFR 15-29 ml/min ICD Codes: N18.4 - Chronic kidney disease, stage 4 (severe) SNOMED: 985136546 (4) Fever ICD Codes: R50.9 - Fever, unspecified SNOMED: 166484950 Qualifiers: Qualified Codes: R50.81 - Fever presenting with conditions classified elsewhere (5) Anorexia ICD Codes: R63.0 - Anorexia SNOMED: 87898463 (6) Hypothyroidism ICD Codes: E03.9 - Hypothyroidism SNOMED: 86861952 (7) Sepsis ICD Codes: A41.9 - Sepsis, unspecified organism SNOMED: 28010252 Qualifiers: Qualified Codes: A41.9 - Sepsis, unspecified organism; R65.20 - Severe sepsis without septic shock; N17.9 - Acute kidney failure, unspecified (8) Abdominal pain in female ICD Codes: R10.9 - Unspecified abdominal pain SNOMED: 09312747 (9) Acute renal failure (ARF) ICD Codes: N17.9 - Acute kidney failure, unspecified SNOMED: 57700165 Qualifiers: Qualified Codes: N17.9 - Acute kidney failure, unspecified Status: stable, not improved Assessment/Plan: ivf as needed monitor volume status monitor renal fxn transfuse as needed iv abx per ID dc planning Subjective ROS Limited/Unobtainable: No Constitutional: Reports: malaise, weakness HEENT: Reports: no symptoms Cardiovascular: Reports: edema Respiratory: Reports: no symptoms Gastrointestinal/Abdominal: Reports: poor appetite, poor fluid intake Genitourinary: Reports: no symptoms Neurologic/Psychiatric: Reports: pre-existing deficit Endocrine: Reports: no symptoms Hematologic/Lymphatic: Reports: no symptoms Allergies: Coded Allergies: ERYTHROMYCIN BASE (Unverified Allergy, Intermediate, 07/14/19) Per patient not allergic to medications or food All Systems: reviewed and negative except above Subjective no complaints. no overnight events. no bleeding noted. tolerating feeds. renal fxn trending down. on po abx Objective Last 24 Hour Vital Signs Date Time Temp Pulse Resp B/P (MAP) Pulse Ox O2 Delivery O2 Flow Rate FiO2 09/26/19 12:00 86 09/26/19 12:00 99.0 87 18 137/68 (91) 99 09/26/19 09:12 104 153/70 09/26/19 09:12 104 153/70 09/26/19 09:00 Room Air 09/26/19 08:00 99.0 104 18 153/70 (97) 96 09/26/19 08:00 102 09/26/19 06:02 150/70 09/26/19 04:00 98.2 99 20 150/70 (96) 97 09/26/19 04:00 102 09/26/19 00:00 99.0 97 20 150/70 (96) 97 09/26/19 00:00 95 09/25/19 22:14 154/60 09/25/19 21:00 Room Air 09/25/19 21:00 94 154/60 09/25/19 20:00 98.4 94 20 154/60 (91) 96 09/25/19 20:00 92 09/25/19 16:00 97.9 85 19 148/64 (92) 98 09/25/19 16:00 90 Intake and Output 09/25/19 09/26/19 18:59 06:59 Intake Total 1350 ml Output Total 600 ml Balance 1350 ml -600 ml Free Water 30 ml IV Total 900 ml Tube Feeding 420 ml Output Urine Total 600 ml # Voids 3 # Bowel Movements 3 1 Laboratory Tests 09/26/19 05:50: White Blood Count 8.1, Red Blood Count 3.00L, Hemoglobin 9.0L, Hematocrit 26.9L , Mean Corpuscular Volume 90, Mean Corpuscular Hemoglobin 30.1, Mean Corpuscular Hemoglobin Concent 33.6, Red Cell Distribution Width 13.9, Platelet Count 151, Mean Platelet Volume 7.1, Neutrophils (%) (Auto) 83.0H, Lymphocytes ( %) (Auto) 10.9L, Monocytes (%) (Auto) 4.6, Eosinophils (%) (Auto) 1.1, Basophils (%) (Auto) 0.4, Sodium Level 141, Potassium Level 3.9, Chloride Level 106, Carbon Dioxide Level 21, Anion Gap 14, Blood Urea Nitrogen 76H, Creatinine 3.9H, Estimat Glomerular Filtration Rate , Glucose Level 83, Calcium Level 9.4, Magnesium Level 1.8 Height (Feet): 5 Height (Inches): 3.00 Weight (Pounds): 194 Objective General Appearance: WD/WN Neck: supple Cardiovascular: regular rhythm Respiratory/Chest: lungs clear Abdomen: normal bowel sounds, non tender, soft, no organomegaly Edema: no edema noted Arm (L), no edema noted Arm (R), no edema noted Leg (L), no edema noted Leg (R), no edema noted Pedal (L), no edema noted Pedal (R), no edema noted 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
[2019-09-26 16:00] VITALS: BP 139/71
--- NOTE | 2019-09-26 16:46 | NUR ---
NURSE NOTES: Per Dr. Hendricks, the patient may discharge back to SNF tomorrow.
--- NOTE | 2019-09-26 17:50 | NUR ---
NURSE NOTES: Dr. Rao paged to notify for the patient having loose stools x2 today. Awaiting for reply
--- NOTE | 2019-09-26 19:05 | General Progress Note ---
Assessment/Plan Status: stable, not improved Assessment/Plan: Assessment - Anemia - Anorexia - s/p GT - malnutrition - renal failure - OBS - resolved lactic acidosis Recommendations - TF - GT care - follow labs - abx per ID - elevate HOB Subjective Allergies: Coded Allergies: ERYTHROMYCIN BASE (Unverified Allergy, Intermediate, 07/14/19) Per patient not allergic to medications or food Subjective awake NAD Tolerating TF Objective Last 24 Hour Vital Signs Date Time Temp Pulse Resp B/P (MAP) Pulse Ox O2 Delivery O2 Flow Rate FiO2 09/26/19 16:00 98.9 96 18 139/71 (93) 96 09/26/19 16:00 91 09/26/19 15:06 137/68 09/26/19 12:00 86 09/26/19 12:00 99.0 87 18 137/68 (91) 99 09/26/19 09:12 104 153/70 09/26/19 09:12 104 153/70 09/26/19 09:00 Room Air 09/26/19 08:00 99.0 104 18 153/70 (97) 96 09/26/19 08:00 102 09/26/19 06:02 150/70 09/26/19 04:00 98.2 99 20 150/70 (96) 97 09/26/19 04:00 102 09/26/19 00:00 99.0 97 20 150/70 (96) 97 09/26/19 00:00 95 09/25/19 22:14 154/60 09/25/19 21:00 Room Air 09/25/19 21:00 94 154/60 09/25/19 20:00 98.4 94 20 154/60 (91) 96 09/25/19 20:00 92 Intake and Output 09/25/19 09/26/19 19:00 07:00 Intake Total 1305 ml 35 ml Output Total 600 ml Balance 1305 ml -565 ml Free Water 20 ml IV Total 900 ml Tube Feeding 385 ml 35 ml Output Urine Total 600 ml # Voids 3 # Bowel Movements 3 1 Laboratory Tests 09/26/19 05:50: White Blood Count 8.1, Red Blood Count 3.00L, Hemoglobin 9.0L, Hematocrit 26.9L , Mean Corpuscular Volume 90, Mean Corpuscular Hemoglobin 30.1, Mean Corpuscular Hemoglobin Concent 33.6, Red Cell Distribution Width 13.9, Platelet Count 151, Mean Platelet Volume 7.1, Neutrophils (%) (Auto) 83.0H, Lymphocytes ( %) (Auto) 10.9L, Monocytes (%) (Auto) 4.6, Eosinophils (%) (Auto) 1.1, Basophils (%) (Auto) 0.4, Sodium Level 141, Potassium Level 3.9, Chloride Level 106, Carbon Dioxide Level 21, Anion Gap 14, Blood Urea Nitrogen 76H, Creatinine 3.9H, Estimat Glomerular Filtration Rate , Glucose Level 83, Calcium Level 9.4, Magnesium Level 1.8 Height (Feet): 5 Height (Inches): 3.00 Weight (Pounds): 194 Objective WDWN AA woman NCAT supple CTA RR abd soft (+) GT no edema Mina Rao MD Sep 26, 2019 19:05
--- NOTE | 2019-09-26 19:27 | NUR ---
HAND-OFF: Report given to Marlon NUNEZ. Pt remains stable.
--- NOTE | 2019-09-26 19:30 | NUR ---
NURSE NOTES: Received patient from Min RN. Patient in bed, alert but oriented x2. On room air, no signs of respiratory distress. No residual from Gtube, on nepro at 35ml/hr. 22gauge IV on right forearm intact, patent, no s/s of infiltration. Bed in low position, locked, bed alarm on, call light within reach.
[2019-09-26 20:00] VITALS: BP 142/71
[2019-09-26] MEDS: Epoetin Alfa-EPBX (NON ESRD) 2000 units/ml vial SUBQ SCH (21:43)
[2019-09-26] MEDS: Epoetin Alfa-EPBX (NON ESRD) 3000 units/ml vial SUBQ SCH (21:43)
--- NOTE | 2019-09-26 23:34 | General Progress Note ---
Assessment/Plan Status: stable, not improved Assessment/Plan: Assessment - Anemia - diarrhea - r/o C Diff - Anorexia - s/p GT - malnutrition - renal failure - OBS - resolved lactic acidosis Recommendations - TF - check C Diff - GT care - follow labs - abx per ID - elevate HOB Subjective Allergies: Coded Allergies: ERYTHROMYCIN BASE (Unverified Allergy, Intermediate, 07/14/19) Per patient not allergic to medications or food Subjective awake NAD Tolerating TF d/w RN - diarrhea noted Objective Last 24 Hour Vital Signs Date Time Temp Pulse Resp B/P (MAP) Pulse Ox O2 Delivery O2 Flow Rate FiO2 09/26/19 21:41 100 142/71 09/26/19 21:41 142/71 09/26/19 20:00 100 142/71 (94) 09/26/19 16:00 98.9 96 18 139/71 (93) 96 09/26/19 16:00 91 09/26/19 15:06 137/68 09/26/19 12:00 86 09/26/19 12:00 99.0 87 18 137/68 (91) 99 09/26/19 09:12 104 153/70 09/26/19 09:12 104 153/70 09/26/19 09:00 Room Air 09/26/19 08:00 99.0 104 18 153/70 (97) 96 09/26/19 08:00 102 09/26/19 06:02 150/70 09/26/19 04:00 98.2 99 20 150/70 (96) 97 09/26/19 04:00 102 09/26/19 00:00 99.0 97 20 150/70 (96) 97 09/26/19 00:00 95 Intake and Output 09/25/19 09/26/19 19:00 07:00 Intake Total 1305 ml 35 ml Output Total 600 ml Balance 1305 ml -565 ml Free Water 20 ml IV Total 900 ml Tube Feeding 385 ml 35 ml Output Urine Total 600 ml # Voids 3 # Bowel Movements 3 1 Laboratory Tests 09/26/19 05:50: White Blood Count 8.1, Red Blood Count 3.00L, Hemoglobin 9.0L, Hematocrit 26.9L , Mean Corpuscular Volume 90, Mean Corpuscular Hemoglobin 30.1, Mean Corpuscular Hemoglobin Concent 33.6, Red Cell Distribution Width 13.9, Platelet Count 151, Mean Platelet Volume 7.1, Neutrophils (%) (Auto) 83.0H, Lymphocytes ( %) (Auto) 10.9L, Monocytes (%) (Auto) 4.6, Eosinophils (%) (Auto) 1.1, Basophils (%) (Auto) 0.4, Sodium Level 141, Potassium Level 3.9, Chloride Level 106, Carbon Dioxide Level 21, Anion Gap 14, Blood Urea Nitrogen 76H, Creatinine 3.9H, Estimat Glomerular Filtration Rate , Glucose Level 83, Calcium Level 9.4, Magnesium Level 1.8 Height (Feet): 5 Height (Inches): 3.00 Weight (Pounds): 194 Objective WDWN AA woman NCAT supple CTA RR abd soft (+) GT no edema Mina Rao MD Sep 26, 2019 23:34
[2019-09-27] VITALS (7 sets, daily range): BP systolic 123–145; BP diastolic 60–70
[2019-09-27] MEDS: HydrALAZINE 50mg tab GT SCH ×3 (05:25→22:00)
[2019-09-27] MEDS: Levothyroxine 125mcg tab GT SCH (05:30)
--- NOTE | 2019-09-27 07:09 | NUR ---
NURSE NOTES: Patient in bed, locked, low position, bed alarm on, call light within reach. No acute changes. No signs of respiratory distress.
[2019-09-27 07:22] LABS: ANION GAP 13 mmol/L (5-15); BLOOD UREA NITROGEN 78 mg/dL (7-18); CALCIUM 9.3 MG/DL (8.5-10.1); CARBON DIOXIDE 20 MMOL/L (21-32); CHLORIDE 108 MMOL/L (98-107); CREATININE 3.8 MG/DL (0.55-1.30); POTASSIUM 3.8 MMOL/L (3.5-5.1); SODIUM 141 MMOL/L (136-145)
--- NOTE | 2019-09-27 07:54 | NUR ---
NURSE NOTES: Patient received from Marlon Tompkins. Pt awake AOx3 with no complaints of pain and no s/sx of distress. RR even and unlabored on RA with audible rhonchi. Nepro feeding infusing at 35mL/hr with HOB at 30 degrees. Bed low and locked. Call light within reach . Will continue to monitor.
--- NOTE | 2019-09-27 08:05 | Nephrology Progress Note ---
Assessment/Plan Status: stable, not improved Assessment/Plan: \ A/P (1) CHF exacerbation- resolved. - TFs (2) CKD (chronic kidney disease) stage 5, GFR less than 15 ml/min - Cr down to 3.8. OK for DC from renal point -G+ cocci could be from picc, s/p removal - Hold off HD as renal function improving. OK for DC from renal point (3) Anemia in chronic kidney disease - s/p Bld Tx and EPO (4) Sepsis- Abx per ID. (5) Hypertensive nephrosclerosis- monitor BP and adjust as needed Subjective Date patient seen: Sep 27, 2019 Time patient seen: 08:02 ROS Limited/Unobtainable: No Allergies: Coded Allergies: ERYTHROMYCIN BASE (Unverified Allergy, Intermediate, 07/14/19) Per patient not allergic to medications or food Subjective Patient in no distress Objective Last 24 Hour Vital Signs Date Time Temp Pulse Resp B/P (MAP) Pulse Ox O2 Delivery O2 Flow Rate FiO2 09/27/19 05:25 140/70 09/27/19 05:23 140/70 (93) 09/27/19 04:00 96 09/27/19 04:00 98.2 97 20 133/64 (87) 96 09/27/19 00:00 98.0 94 20 123/65 (84) 97 09/27/19 00:00 90 09/26/19 21:41 100 142/71 09/26/19 21:41 142/71 09/26/19 21:00 Room Air 09/26/19 20:00 100 142/71 (94) 09/26/19 20:00 100 09/26/19 20:00 98.2 20 96 09/26/19 16:00 98.9 96 18 139/71 (93) 96 09/26/19 16:00 91 09/26/19 15:06 137/68 09/26/19 12:00 86 09/26/19 12:00 99.0 87 18 137/68 (91) 99 09/26/19 09:12 104 153/70 09/26/19 09:12 104 153/70 09/26/19 09:00 Room Air Intake and Output 09/26/19 09/27/19 19:00 07:00 Intake Total 315 ml 300 ml Balance 315 ml 300 ml IV Total 300 ml Tube Feeding 315 ml # Voids 3 # Bowel Movements 2 2 Laboratory Tests 09/27/19 06:22: Sodium Level 141, Potassium Level 3.8, Chloride Level 108H, Carbon Dioxide Level 20L, Anion Gap 13, Blood Urea Nitrogen 78H, Creatinine 3.8H, Estimat Glomerular Filtration Rate , Glucose Level 108H, Calcium Level 9.3 Height (Feet): 5 Height (Inches): 3.00 Weight (Pounds): 194 General Appearance: no apparent distress, alert EENT: normal ENT inspection Neck: normal alignment, supple Cardiovascular: normal rate, regular rhythm Respiratory/Chest: lungs clear, normal breath sounds Abdomen: non tender, soft Edema: no edema noted Arm (L), no edema noted Arm (R), no edema noted Leg (L), no edema noted Leg (R), no edema noted Pedal (L), no edema noted Pedal (R), no edema noted Generalized Cody Hoyos MD Sep 27, 2019 08:05
[2019-09-27] MEDS: Sodium Citrate 30ml GT SCH ×2 (08:52→17:11)
[2019-09-27] MEDS: Heparin 5000 units/ml inj SUBQ SCH ×2 (08:54→21:11)
--- NOTE | 2019-09-27 09:08 | General Progress Note ---
Assessment/Plan Status: stable, not improved Assessment/Plan: Assessment/Plan Status: stable, not improved Assessment/Plan: Assessment - Anemia - diarrhea - r/o C Diff - Anorexia - s/p GT - malnutrition - renal failure - OBS - resolved lactic acidosis Recommendations - TF - check C Diff - GT care - follow labs - abx per ID - elevate HOB Subjective ROS Limited/Unobtainable: No Allergies: Coded Allergies: ERYTHROMYCIN BASE (Unverified Allergy, Intermediate, 07/14/19) Per patient not allergic to medications or food Objective Last 24 Hour Vital Signs Date Time Temp Pulse Resp B/P (MAP) Pulse Ox O2 Delivery O2 Flow Rate FiO2 09/27/19 08:53 88 123/60 09/27/19 08:53 88 123/60 09/27/19 08:00 99.3 88 20 123/60 (81) 96 09/27/19 05:25 140/70 09/27/19 05:23 140/70 (93) 09/27/19 04:00 96 09/27/19 04:00 98.2 97 20 133/64 (87) 96 09/27/19 00:00 98.0 94 20 123/65 (84) 97 09/27/19 00:00 90 09/26/19 21:41 100 142/71 09/26/19 21:41 142/71 09/26/19 21:00 Room Air 09/26/19 20:00 100 142/71 (94) 09/26/19 20:00 100 09/26/19 20:00 98.2 20 96 09/26/19 16:00 98.9 96 18 139/71 (93) 96 09/26/19 16:00 91 09/26/19 15:06 137/68 09/26/19 12:00 86 09/26/19 12:00 99.0 87 18 137/68 (91) 99 09/26/19 09:12 104 153/70 09/26/19 09:12 104 153/70 Intake and Output 09/26/19 09/27/19 19:00 07:00 Intake Total 315 ml 300 ml Balance 315 ml 300 ml IV Total 300 ml Tube Feeding 315 ml # Voids 3 # Bowel Movements 2 2 Laboratory Tests 09/27/19 06:22: Sodium Level 141, Potassium Level 3.8, Chloride Level 108H, Carbon Dioxide Level 20L, Anion Gap 13, Blood Urea Nitrogen 78H, Creatinine 3.8H, Estimat Glomerular Filtration Rate , Glucose Level 108H, Calcium Level 9.3 Height (Feet): 5 Height (Inches): 3.00 Weight (Pounds): 194 General Appearance: lethargic EENT: normal ENT inspection Neck: supple Cardiovascular: normal rate Respiratory/Chest: decreased breath sounds Abdomen: normal bowel sounds, non tender, soft Extremities: non-tender David Bosch MD Sep 27, 2019 09:08
[2019-09-27] MEDS ORDERED: NORVASC10 MG GT (10:43)
[2019-09-27] MEDS ORDERED: LINEZOLID-600 MG/300 IV (10:43)
[2019-09-27] MEDS ORDERED: LANSOPRAZOLE30 MG GT (10:43)
[2019-09-27] MEDS ORDERED: BICITRA30 ML GT (10:43)
[2019-09-27] MEDS ORDERED: APRESOLINE50 MG GT (10:43)
[2019-09-27] MEDS ORDERED: LEVOTHYROXINE125 MCG GT (10:43)
[2019-09-27] MEDS ORDERED: METOPROLOL TAR100 M1 GT (10:43)
--- NOTE | 2019-09-27 15:20 | NUR ---
NURSE NOTES: Nurse report given by ENRIQUE Sanon. Patient's awake in bed, laying semi-olvera, no s/s of distress or SOB. Patient's on room air, bed low and lock, call light within reach, AO x 3, bed alarm is on, side rails x3. IV site saline locked, patent and asymptomatic. GT tube is running Nepro at 55cc/hr, no large residual amount. Will continue to monitor.
--- NOTE | 2019-09-27 15:26 | NUR ---
HAND-OFF: Report given to Rosita NUNEZ. Patient stable.
--- NOTE | 2019-09-27 19:28 | NUR ---
NURSE NOTES: Received patient from ENRIQUE Becker. Patient awake, alert, and talkative in bed. No signs of shortness of breath, distress, or pain noted. Patient able to make needs known. GT checked and flushed, no residual noted, 33 mL/hr of Nepro running, patient tolerating well. IV site checked, intact and patent, no redness, bleeding, or infiltration noted. Seizure precautions in place. Bed in lowest position, brakes on, side rails up x3, and call light within reach. Will continue with plan of care.
--- NOTE | 2019-09-27 19:30 | Progress Note ---
DATE: 09/27/2019 CARDIOLOGY PROGRESS NOTE SUBJECTIVE: Condition continued to improve with blood pressure parameters much better. Sinus rhythm. No shortness of breath noted. OBJECTIVE: VITAL SIGNS: Blood pressure 140/70, earlier 123/65, heart rate 94 to 100, respiratory rate 20, and afebrile. LUNGS: Diminished breath sounds. CARDIAC: Regular rhythm and rate. Normal S1, S2. ABDOMEN: Soft. G-tube site intact. EXTREMITIES: No edema. IMPRESSION: Surveillance culture is negative. BUN 78, creatinine 3.8. Overall improving cardiorenal function and clinical parameters. PLAN: 1. Continue tube feeds. 2. No diuretics. 3. Monitor volume status and cardiorenal function and blood pressure parameters and adjust therapy accordingly. 4. Discharge planning in progress. Lance Rivas M.D. DR: BELEM JOB#: [id number] CC:
--- NOTE | 2019-09-27 19:30 | Progress Note ---
DATE: 09/26/2019 CARDIOLOGY PROGRESS NOTE Late entry, 09/26/2019. SUBJECTIVE: The patient has no new complaints. No new events. Tolerating feedings by G-tube. She is remaining on antimicrobials. Blood pressure parameters are somewhat improved. OBJECTIVE: VITAL SIGNS: Blood pressure 137/68 to 153/70, heart rate 86 to 104, respiratory 18 to 20, she is afebrile, T-max 99. LUNGS: Diminished breath sounds. HEART: Regular rhythm and rate. Normal S1, S2 with a fourth heart sound. ABDOMEN: Soft, nontender. G-tube intact. EXTREMITIES: No edema. LABORATORY DATA: White count 8.1, hemoglobin 9. Sodium 141, potassium 3.8, bicarbonate 20, BUN 78, creatinine 3.8. IMPRESSION: 1. Acute on chronic renal failure, slightly improved. 2. Acute on chronic diastolic congestive heart failure, clinically compensated. 3. Hypertensive heart disease, now with overall adequate blood pressure control. 4. Anemia due to chronic kidney disease, status post transfusion. 5. Line sepsis with Staph bacteremia, now recovering on antimicrobials. 6. Pericardial effusion of no hemodynamic significance, low clinical likelihood of endocarditis at this time. PLAN: 1. Monitor blood counts. 2. Continue antimicrobials. 3. Respiratory hygiene. 4. Monitor cardiovascular parameters and volume status and adjust therapy accordingly. 5. Presently, no diuretic therapy is planned. Lance Rivas M.D. DR: BELEM JOB#: [id number] CC:
--- NOTE | 2019-09-27 19:40 | NUR ---
HAND-OFF: Report given to ENRIQUE Acosta. Plan of care endorsed. Patient's stable.
[2019-09-28] VITALS: BP 123/62
--- NOTE | 2019-09-28 | Discharge Summary ---
DATE OF ADMISSION: 09/15/2019 DATE OF DISCHARGE: 08/27/2019 ADMISSION DIAGNOSES: 1. Sepsis. 2. Acute on chronic renal failure. 3. Encephalopathy. 4. Anemia. 5. Hypertension. DISCHARGE DIAGNOSES: 1. Sepsis. 2. Acute on chronic renal failure. 3. Encephalopathy. 4. Anemia. 5. Hypertension. 6. Line sepsis. HOSPITAL COURSE: The patient is a pleasant female, who was admitted with complaints of fevers, malaise, and weakness. She had positive blood cultures, likely secondary to PICC line infection. The PICC line was discontinued. The patient received IV antibiotic therapy. She was also hydrated. She had worsening acute renal failure, but on discharge, her renal function was improving. [facility] She had completed 10 additional days of IV antibiotic therapy for her bacteremia line infection. PROCEDURES: The patient also underwent placement of the G-tube because of poor p.o. intake. She was tolerating feedings on discharge. DISCHARGE MEDICATIONS: Please see discharge medication list for discharge medications. DIET: Oral gratification as well as G-tube feedings. ACTIVITIES: Ad-jackelin. FOLLOWUP: The patient will follow up in one to two days at the [facility] facility. Chema Hendricks M.D. DR: NICOLAS JOB#: [id number] CC:
--- NOTE | 2019-09-28 03:05 | NUR ---
NURSE NOTES: Received pt and report from ENRIQUE Acosta. Observed pt resting in bed with both eyes closed, arousble to voice. cafeteria monitor is in placed, IV site intact, asymptomatic and patent. Pt is on G-tube feeding of Nephro 1.8 @ 35cc/hr (at goal). HOB is at 30 degrees. Fall and aspiration precaution noted. Bed is in the lowest position and locked. Call light within reach. No signs/symptoms of acute distress noted at this time. Will continue plan of care.
--- NOTE | 2019-09-28 03:14 | NUR ---
HAND-OFF: Report given to ENRIQUE Dominguez. Plan of care endorsed, patient resting comfortably.
[2019-09-28 04:00] VITALS: BP 136/69
[2019-09-28] MEDS: Levothyroxine 125mcg tab GT SCH (05:57)
[2019-09-28] MEDS: HydrALAZINE 50mg tab GT SCH ×2 (05:58→14:00)
--- NOTE | 2019-09-28 07:03 | General Progress Note ---
Assessment/Plan Status: stable, not improved Assessment/Plan: Assessment/Plan Status: stable, not improved Assessment/Plan: Assessment - Anemia - diarrhea - r/o C Diff - Anorexia - s/p GT - malnutrition - renal failure - OBS - resolved lactic acidosis Recommendations - TF - check C Diff - GT care - follow labs - abx per ID - elevate HOB Subjective Allergies: Coded Allergies: ERYTHROMYCIN BASE (Unverified Allergy, Intermediate, 07/14/19) Per patient not allergic to medications or food Objective Last 24 Hour Vital Signs Date Time Temp Pulse Resp B/P (MAP) Pulse Ox O2 Delivery O2 Flow Rate FiO2 09/28/19 05:58 137/66 09/28/19 04:00 98.2 100 19 136/69 (91) 98 09/28/19 04:00 102 09/28/19 00:00 95 09/28/19 00:00 97.8 96 20 123/62 (82) 98 09/27/19 22:00 109/62 09/27/19 21:13 101 145/69 09/27/19 21:00 Room Air 09/27/19 20:00 99.1 101 22 145/69 (94) 96 09/27/19 20:00 101 09/27/19 16:00 97.4 81 18 125/69 (87) 98 09/27/19 16:00 95 09/27/19 13:30 128/63 09/27/19 12:00 98.7 86 18 128/63 (84) 97 09/27/19 12:00 90 09/27/19 09:00 Room Air 09/27/19 08:53 88 123/60 09/27/19 08:53 88 123/60 09/27/19 08:00 102 09/27/19 08:00 99.3 88 20 123/60 (81) 96 Intake and Output 09/27/19 09/28/19 19:00 07:00 Intake Total 280 ml 300 ml Balance 280 ml 300 ml IV Total 300 ml Tube Feeding 280 ml # Voids 3 # Bowel Movements 2 3 Height (Feet): 5 Height (Inches): 3.00 Weight (Pounds): 194 General Appearance: no apparent distress EENT: normal ENT inspection Neck: supple Cardiovascular: normal rate Respiratory/Chest: decreased breath sounds Abdomen: normal bowel sounds, non tender, soft Extremities: non-tender Vosoghi,David MD Sep 28, 2019 07:03
--- NOTE | 2019-09-28 07:30 | NUR ---
HAND-OFF: Report given to ENRIQUE Desir. Plan of care endorsed.
--- NOTE | 2019-09-28 07:30 | NUR ---
NURSE NOTES: Received report from ENRIQUE Dominguez. The patient is resting on the bed and making gurgling sound. The patient's bed in the lowest position, call light in reach, and fall and strict aspiration precaution reinforced. G-tube feeding intact and patent and on hold after administration on Levothyroxine on previous shift. Dr. Hendricks at the bedside assessed the patient. Notified Dr. Hendricks regarding abnormal lab including hemoglobin level. The patient has discharge planning. Per Dr. Hendricks, he will contact the primary nurse for clarification. Per Dr. Hendricks, the patient does not need insulin as she is not diabetic even though she is on tube feeding. Will continue plan of care.
[2019-09-28 07:47] LABS: BASOPHILS % (AUTO) 0.7 % (0.0-2.0); EOSINOPHILS % (AUTO) 1.7 % (0.0-3.0); HEMATOCRIT 25.8 % (37.0-47.0); HEMOGLOBIN 8.5 G/DL (12.0-16.0); MEAN CORPUSCULAR VOLUME 90 FL (80-99); MONOCYTES % (AUTO) 7.8 % (1.0-10.0); NEUTROPHILS % (AUTO) 76.9 % (45.0-75.0); PLATELET COUNT 134 K/UL (150-450); RED BLOOD COUNT 2.87 M/UL (4.20-5.40); RED CELL DISTRIBUTION WIDTH 13.6 % (11.6-14.8)
[2019-09-28 08:00] VITALS: BP 142/66
[2019-09-28 08:24] LABS: ALANINE AMINOTRANSFERASE 17 U/L (12-78); ALBUMIN 1.9 G/DL (3.4-5.0); ALBUMIN/GLOBULIN RATIO 0.5 (1.0-2.7); ALKALINE PHOSPHATASE 45 U/L (46-116); ANION GAP 13 mmol/L (5-15); ASPARTATE AMINO TRANSFERASE 34 U/L (15-37); BILIRUBIN,TOTAL 0.5 MG/DL (0.2-1.0); BLOOD UREA NITROGEN 75 mg/dL (7-18); CALCIUM 9.6 MG/DL (8.5-10.1); CARBON DIOXIDE 22 MMOL/L (21-32); CHLORIDE 109 MMOL/L (98-107); CREATININE 3.8 MG/DL (0.55-1.30); POTASSIUM 3.8 MMOL/L (3.5-5.1); SODIUM 144 MMOL/L (136-145)
--- NOTE | 2019-09-28 08:46 | Nephrology Progress Note ---
Assessment/Plan Status: stable, not improved Assessment/Plan: A/P (1) CHF exacerbation- resolved. (2) CKD (chronic kidney disease) stage 5, GFR less than 15 ml/min - Cr stable at 3.8. OK for DC from renal point -G+ cocci could be from picc, s/p removal. repeat Cxs neg - Hold off HD as renal function stable CKD 4 (3) Anemia in chronic kidney disease - s/p Bld Tx and EPO (4) Sepsis- Abx per ID. (5) Hypertensive nephrosclerosis- monitor BP and adjust as needed Subjective Date patient seen: Sep 28, 2019 Time patient seen: 08:44 ROS Limited/Unobtainable: No Allergies: Coded Allergies: ERYTHROMYCIN BASE (Unverified Allergy, Intermediate, 07/14/19) Per patient not allergic to medications or food Subjective Patient in no distress Objective Last 24 Hour Vital Signs Date Time Temp Pulse Resp B/P (MAP) Pulse Ox O2 Delivery O2 Flow Rate FiO2 09/28/19 08:00 96.4 105 18 142/66 (91) 98 09/28/19 05:58 137/66 09/28/19 04:00 98.2 100 19 136/69 (91) 98 09/28/19 04:00 102 09/28/19 00:00 95 09/28/19 00:00 97.8 96 20 123/62 (82) 98 09/27/19 22:00 109/62 09/27/19 21:13 101 145/69 09/27/19 21:00 Room Air 09/27/19 20:00 99.1 101 22 145/69 (94) 96 09/27/19 20:00 101 09/27/19 16:00 97.4 81 18 125/69 (87) 98 09/27/19 16:00 95 09/27/19 13:30 128/63 09/27/19 12:00 98.7 86 18 128/63 (84) 97 09/27/19 12:00 90 09/27/19 09:00 Room Air 09/27/19 08:53 88 123/60 09/27/19 08:53 88 123/60 Intake and Output 09/27/19 09/28/19 19:00 07:00 Intake Total 280 ml 300 ml Balance 280 ml 300 ml IV Total 300 ml Tube Feeding 280 ml # Voids 3 # Bowel Movements 2 3 Laboratory Tests 09/28/19 05:45: White Blood Count 6.0, Red Blood Count 2.87L, Hemoglobin 8.5L, Hematocrit 25.8L , Mean Corpuscular Volume 90, Mean Corpuscular Hemoglobin 29.5, Mean Corpuscular Hemoglobin Concent 32.8, Red Cell Distribution Width 13.6, Platelet Count 134L, Mean Platelet Volume 6.6, Neutrophils (%) (Auto) 76.9H, Lymphocytes (%) (Auto) 13.0L, Monocytes (%) (Auto) 7.8, Eosinophils (%) (Auto) 1.7, Basophils (%) (Auto) 0.7, Sodium Level 144, Potassium Level 3.8, Chloride Level 109H, Carbon Dioxide Level 22, Anion Gap 13, Blood Urea Nitrogen 75H, Creatinine 3.8H, Estimat Glomerular Filtration Rate , Glucose Level 98, Calcium Level 9.6, Magnesium Level 1.6L, Total Bilirubin 0.5, Aspartate Amino Transf ( AST/SGOT) 34, Alanine Aminotransferase (ALT/SGPT) 17, Alkaline Phosphatase 45L, Pro-B-Type Natriuretic Peptide 5012H, Total Protein 6.0L, Albumin 1.9L, Globulin 4.1, Albumin/Globulin Ratio 0.5L Height (Feet): 5 Height (Inches): 3.00 Weight (Pounds): 194 General Appearance: no apparent distress EENT: normal ENT inspection Neck: normal alignment, supple Cardiovascular: normal rate, regular rhythm Respiratory/Chest: lungs clear, normal breath sounds Abdomen: non tender, soft Edema: 1+ Arm (L), 1+ Arm (R), 1+ Leg (L), 1+ Leg (R), 1+ Pedal (L), 1+ Pedal ( R), 1+ Generalized Cody Hoyos MD Sep 28, 2019 08:46
[2019-09-28] MEDS: Sodium Citrate 30ml GT SCH (08:53)
[2019-09-28] MEDS: Heparin 5000 units/ml inj SUBQ SCH (08:54)
--- NOTE | 2019-09-28 09:32 | General Progress Note ---
Assessment/Plan Problem List: (1) Chronic kidney disease, stage III (moderate) ICD Codes: N18.3 - Chronic kidney disease, stage III (moderate) SNOMED: 274537084 (2) Hypertensive nephrosclerosis ICD Codes: I12.9 - Hypertensive chronic kidney disease with stage 1 through stage 4 chronic kidney disease, or unspecified chronic kidney disease SNOMED: 417484644 (3) CKD (chronic kidney disease) stage 4, GFR 15-29 ml/min ICD Codes: N18.4 - Chronic kidney disease, stage 4 (severe) SNOMED: 491468676 (4) Fever ICD Codes: R50.9 - Fever, unspecified SNOMED: 340969037 Qualifiers: Qualified Codes: R50.81 - Fever presenting with conditions classified elsewhere (5) Anorexia ICD Codes: R63.0 - Anorexia SNOMED: 88372002 (6) Hypothyroidism ICD Codes: E03.9 - Hypothyroidism SNOMED: 34417011 (7) Sepsis ICD Codes: A41.9 - Sepsis, unspecified organism SNOMED: 67194471 Qualifiers: Qualified Codes: A41.9 - Sepsis, unspecified organism; R65.20 - Severe sepsis without septic shock; N17.9 - Acute kidney failure, unspecified (8) Abdominal pain in female ICD Codes: R10.9 - Unspecified abdominal pain SNOMED: 86630205 (9) Acute renal failure (ARF) ICD Codes: N17.9 - Acute kidney failure, unspecified SNOMED: 19441215 Qualifiers: Qualified Codes: N17.9 - Acute kidney failure, unspecified Status: stable, not improved Assessment/Plan: ivf as needed monitor volume status monitor renal fxn transfuse as needed iv abx per ID dc planning Subjective ROS Limited/Unobtainable: No Constitutional: Reports: malaise, weakness HEENT: Reports: no symptoms Cardiovascular: Reports: no symptoms Respiratory: Reports: no symptoms Gastrointestinal/Abdominal: Reports: difficulty swallowing, poor appetite, poor fluid intake Genitourinary: Reports: no symptoms Neurologic/Psychiatric: Reports: pre-existing deficit Endocrine: Reports: no symptoms Hematologic/Lymphatic: Reports: no symptoms Allergies: Coded Allergies: ERYTHROMYCIN BASE (Unverified Allergy, Intermediate, 07/14/19) Per patient not allergic to medications or food All Systems: reviewed and negative except above Subjective no complaints. no overnight events. no bleeding noted. tolerating feeds. renal fxn trending down. on po abx no bed at snf yesterday. Objective Last 24 Hour Vital Signs Date Time Temp Pulse Resp B/P (MAP) Pulse Ox O2 Delivery O2 Flow Rate FiO2 09/28/19 08:53 105 142/66 09/28/19 08:53 105 142/66 09/28/19 08:00 96.4 105 18 142/66 (91) 98 09/28/19 05:58 137/66 09/28/19 04:00 98.2 100 19 136/69 (91) 98 09/28/19 04:00 102 09/28/19 00:00 95 09/28/19 00:00 97.8 96 20 123/62 (82) 98 09/27/19 22:00 109/62 09/27/19 21:13 101 145/69 09/27/19 21:00 Room Air 09/27/19 20:00 99.1 101 22 145/69 (94) 96 09/27/19 20:00 101 09/27/19 16:00 97.4 81 18 125/69 (87) 98 09/27/19 16:00 95 09/27/19 13:30 128/63 09/27/19 12:00 98.7 86 18 128/63 (84) 97 09/27/19 12:00 90 Intake and Output 09/27/19 09/28/19 19:00 07:00 Intake Total 280 ml 300 ml Balance 280 ml 300 ml IV Total 300 ml Tube Feeding 280 ml # Voids 3 # Bowel Movements 2 3 Laboratory Tests 09/28/19 05:45: White Blood Count 6.0, Red Blood Count 2.87L, Hemoglobin 8.5L, Hematocrit 25.8L , Mean Corpuscular Volume 90, Mean Corpuscular Hemoglobin 29.5, Mean Corpuscular Hemoglobin Concent 32.8, Red Cell Distribution Width 13.6, Platelet Count 134L, Mean Platelet Volume 6.6, Neutrophils (%) (Auto) 76.9H, Lymphocytes (%) (Auto) 13.0L, Monocytes (%) (Auto) 7.8, Eosinophils (%) (Auto) 1.7, Basophils (%) (Auto) 0.7, Sodium Level 144, Potassium Level 3.8, Chloride Level 109H, Carbon Dioxide Level 22, Anion Gap 13, Blood Urea Nitrogen 75H, Creatinine 3.8H, Estimat Glomerular Filtration Rate , Glucose Level 98, Calcium Level 9.6, Magnesium Level 1.6L, Total Bilirubin 0.5, Aspartate Amino Transf ( AST/SGOT) 34, Alanine Aminotransferase (ALT/SGPT) 17, Alkaline Phosphatase 45L, Pro-B-Type Natriuretic Peptide 5012H, Total Protein 6.0L, Albumin 1.9L, Globulin 4.1, Albumin/Globulin Ratio 0.5L Height (Feet): 5 Height (Inches): 3.00 Weight (Pounds): 194 Objective General Appearance: WD/WN Neck: supple Cardiovascular: regular rhythm Respiratory/Chest: lungs clear Abdomen: normal bowel sounds, non tender, soft, no organomegaly Edema: no edema noted Arm (L), no edema noted Arm (R), no edema noted Leg (L), no edema noted Leg (R), no edema noted Pedal (L), no edema noted Pedal (R), no edema noted Generalized Neurologic: toll mechanic II-XII grossly normal, alert, oriented x 3 Chema Hendricks MD Sep 28, 2019 09:32
--- NOTE | 2019-09-28 09:57 | NUR ---
NURSE NOTES: Dr. Hendricks ordered Magnesium IVPB 1g x2 for hypomagnesemia. Will carry out the order now. Will continue plan of care.
--- NOTE | 2019-09-28 10:30 | NUR ---
NURSE NOTES: Clarification made with Dr. Hendricks. The patient is cleared by Dr. Hendricks and Dr. Hoyos. Dr. Hendricks ordered the patient to be discharged to [address] Notified to charge nurse. Will continue plan of care until safe discharge.
--- NOTE | 2019-09-28 11:30 | NUR ---
NURSE NOTES: Informed the patient and Sharron (next of kin and daughter) regarding the patient's safe discharge to [facility] 14A. Gave comprehensive report to Yola, who is the receiving nurse @ [facility]. Transportation scheduled with Mr. Adamson @ [facility]. Will continue plan of care until discharge.
--- NOTE | 2019-09-28 11:30 | Infectious Diseases Prog Note ---
Assessment/Plan Assessment/Plan A 1. staph aureus( MRSA) sepsis, likely catheter infection s/p removal of PICC line 2. s/p GT placement 3. Stage V CKD 4. leucocytosis resolved 5. hypertension 6. dementia 7. CHF 8. Pericardial effusion P 1. continue linezolid X 32 days, 600mg PO BID 2. Case was D/W RN Subjective ROS Limited/Unobtainable: Yes Constitutional: Denies: fever Allergies: Coded Allergies: ERYTHROMYCIN BASE (Unverified Allergy, Intermediate, 07/14/19) Per patient not allergic to medications or food Objective Vital Signs Last 24 Hour Vital Signs Date Time Temp Pulse Resp B/P (MAP) Pulse Ox O2 Delivery O2 Flow Rate FiO2 09/28/19 09:00 Room Air 09/28/19 08:53 105 142/66 09/28/19 08:53 105 142/66 09/28/19 08:00 107 09/28/19 08:00 96.4 105 18 142/66 (91) 98 09/28/19 05:58 137/66 09/28/19 04:00 98.2 100 19 136/69 (91) 98 09/28/19 04:00 102 09/28/19 00:00 95 09/28/19 00:00 97.8 96 20 123/62 (82) 98 09/27/19 22:00 109/62 09/27/19 21:13 101 145/69 09/27/19 21:00 Room Air 09/27/19 20:00 99.1 101 22 145/69 (94) 96 09/27/19 20:00 101 09/27/19 16:00 97.4 81 18 125/69 (87) 98 09/27/19 16:00 95 09/27/19 13:30 128/63 09/27/19 12:00 98.7 86 18 128/63 (84) 97 09/27/19 12:00 90 Height (Feet): 5 Height (Inches): 3.00 Weight (Pounds): 194 General Appearance: no acute distress HEENT: mucous membranes moist Respiratory/Chest: lungs clear Cardiovascular: tachycardia Abdomen: soft, non tender, other - GT feeding Extremities: no edema Neurologic/Psychiatric: alert, responsive Microbiology Date/Time Source Procedure Growth Status 09/27/19 06:00 Stool Clostridium difficile Toxin Assay - Final Complete Laboratory Tests Test 09/28/19 05:45 White Blood Count 6.0 K/UL (4.8-10.8) Red Blood Count 2.87 M/UL (4.20-5.40) L Hemoglobin 8.5 G/DL (12.0-16.0) L Hematocrit 25.8 % (37.0-47.0) L Mean Corpuscular Volume 90 FL (80-99) Mean Corpuscular Hemoglobin 29.5 PG (27.0-31.0) Mean Corpuscular Hemoglobin Concent 32.8 G/DL (32.0-36.0) Red Cell Distribution Width 13.6 % (11.6-14.8) Platelet Count 134 K/UL (150-450) L Mean Platelet Volume 6.6 FL (6.5-10.1) Neutrophils (%) (Auto) 76.9 % (45.0-75.0) H Lymphocytes (%) (Auto) 13.0 % (20.0-45.0) L Monocytes (%) (Auto) 7.8 % (1.0-10.0) Eosinophils (%) (Auto) 1.7 % (0.0-3.0) Basophils (%) (Auto) 0.7 % (0.0-2.0) Sodium Level 144 MMOL/L (136-145) Potassium Level 3.8 MMOL/L (3.5-5.1) Chloride Level 109 MMOL/L (98-107) H Carbon Dioxide Level 22 MMOL/L (21-32) Anion Gap 13 mmol/L (5-15) Blood Urea Nitrogen 75 mg/dL (7-18) H Creatinine 3.8 MG/DL (0.55-1.30) H Estimat Glomerular Filtration Rate mL/min (>60) Glucose Level 98 MG/DL (74-106) Calcium Level 9.6 MG/DL (8.5-10.1) Magnesium Level 1.6 MG/DL (1.8-2.4) L Total Bilirubin 0.5 MG/DL (0.2-1.0) Aspartate Amino Transf (AST/SGOT) 34 U/L (15-37) Alanine Aminotransferase (ALT/SGPT) 17 U/L (12-78) Alkaline Phosphatase 45 U/L (46-116) L Pro-B-Type Natriuretic Peptide 5012 pg/mL (0-125) H Total Protein 6.0 G/DL (6.4-8.2) L Albumin 1.9 G/DL (3.4-5.0) L Globulin 4.1 g/dL Albumin/Globulin Ratio 0.5 (1.0-2.7) L Current Medications Medications (Trade) Dose Ordered Sig/Jonathan Route PRN Reason Start Time Stop Time Status Last Admin Dose Admin Acetaminophen (Tylenol) 650 mg Q6H PRN GT Mild Pain/Temp > 100.5 09/18/19 15:30 10/16/19 06:44 09/24/19 20:49 Amlodipine Besylate (Norvasc) 10 mg DAILY GT 09/24/19 09:00 10/24/19 08:59 09/28/19 08:53 Epoetin Phu (Epoetin Phu-EPBX(NON ESRD)) 2,000 unit SUN-SUN-SUN SUBQ 09/15/19 21:00 10/15/19 20:59 09/26/19 21:43 Epoetin Phu (Epoetin Phu-EPBX(NON ESRD)) 3,000 unit SUN-SUN-SUN SUBQ 09/15/19 21:00 10/15/19 20:59 09/26/19 21:43 Heparin Sodium (Porcine) (Heparin 5000 units/ml) 5,000 units EVERY 12 HOURS SUBQ 09/15/19 21:00 10/15/19 20:59 09/27/19 21:11 Hydralazine HCl (Apresoline) 100 mg Q8HR GT 09/18/19 22:00 10/15/19 22:14 09/28/19 05:58 Lansoprazole (Prevacid) 30 mg DAILY GT 09/24/19 09:00 10/24/19 08:59 09/28/19 08:53 Levothyroxine Sodium (Synthroid) 125 mcg ACBREAKFAST GT 09/19/19 06:30 10/16/19 06:29 09/28/19 05:57 Linezolid 300 ml @ 300 mls/hr Q12HR IVPB 09/22/19 21:00 09/29/19 20:59 09/28/19 08:54 Magnesium Sulfate 100 ml @ 100 mls/hr Q1H IVPB 09/28/19 10:00 09/28/19 11:59 09/28/19 11:20 Metoprolol Tartrate (Lopressor) 100 mg EVERY 12 HOURS GT 09/18/19 21:00 10/15/19 22:14 09/28/19 08:53 Sodium Citrate (Bicitra) 30 ml BID GT 09/18/19 18:00 10/18/19 17:59 09/28/19 08:53 Ruperto Freedman MD Sep 28, 2019 11:30
[2019-09-28 12:00] VITALS: BP 109/55
--- NOTE | 2019-09-28 12:00 | NUR ---
NURSE NOTES: Dr. Freedman at the bedside assessed the patient. Notified Dr. Freedman that the patient will be discharged to [address] Freedman change antibiotics from IV to PO. Dr. Freedman ordered Linezolid 600mg 1tab GT BID for [address] Hendricks in change in antibiotics order. Will continue plan of care until discharge.
[2019-09-28] MEDS ORDERED: LINEZOLID600 MG PO (12:38)
[2019-09-28] MEDS ORDERED: LINEZOLID600 MG GT (12:39)
[2019-09-28 16:00] VITALS: BP 132/69
--- NOTE | 2019-09-28 16:05 | NUR ---
NURSE NOTES: The patient safely got discharged to [address] with [facility]'s transporter's support and per Dr. Hendricks's order. Discharge medication list reconciled by Dr. Hendricks and clarification made with Dr. Hendricks regarding antibiotics since there was change in order from Dr. Freedman. The discharge instruction given to the patient but the patient is unable to sign. The course of hospitalization and comprehensive report given to Yola, who is a receiving nurse @ [facility]. Spoke with Sharron, the next of kin and daughter, regarding the patient's discharge to [address] and verbalized understanding. Report also given to Jacob who is [facility] transporter. Interfacility form completed by the primary nurse and included as part of the packet. Due to Hypomagnesemia Magnesium sulfate 1gram IVPB x2 administered [address] Dr. Hendricks's order prior to discharge. The patient's belongings checked with the patient, primary nurse, and charge nurse and handed to the transporter. The patient's pressure ulcer picture taken and saved on the chart. IV, nameband, and tele box removed by the primary nurse. The MRSA swab completed prior to discharge. In short, the patient got safely discharged to [facility] room 14A with transporter's support and Dr. Hendricks's discharge order with stable vital signs and stable physical symptoms.
--- NOTE | 2019-09-28 23:15 | Progress Note ---
DATE: 09/28/2019 CARDIOLOGY PROGRESS NOTE SUBJECTIVE: No signs of bleeding. Tolerating feedings by G-tube. OBJECTIVE: VITAL SIGNS: Blood pressure 142/66, heart rate 105, respiratory rate 18, and afebrile. LUNGS: Diminished breath sounds. CARDIAC: Regular rhythm and rate. Normal S1 and S2. ABDOMEN: Soft. EXTREMITIES: No edema. SKIN: G-tube intact. LABORATORY DATA: White count 6 and hemoglobin 8.5. Potassium 3.8, BUN 75, creatinine 3.8, magnesium 1.6. Pro-natriuretic peptide 5000. IMPRESSION: 1. Acute on chronic renal failure, slightly improved. 2. Hypomagnesemia. 3. Acute on chronic diastolic congestive heart failure, clinically compensated. 4. Severe protein-calorie malnutrition, status post G-tube. 5. Hypertensive heart disease with sinus tachycardia. 6. Anemia of chronic kidney disease requiring transfusions. PLAN: 1. Stable for monitoring and completion of recovery at [facility] facility. 2. We will need close monitoring of cardiorenal function, blood counts, volume status, and blood pressure parameters with ongoing titration of medication regimen. 3. Ultimately, may require hemodialysis with ultrafiltration, but at this point, we have been able to defer this. Lance Rivas M.D. DR: Ольга JOB#: [id number] CC:
== END 2019-09-28 16:06 | DRG 314 ==
LOC: EMR 12:03 → 2E 12:23 → EDBEDREQ 14:25 → 2E 17:10
DX: T80.211A Bloodstream infection due to central venous catheter, initial encounter (principal); I50.33 Acute on chronic diastolic (congestive) heart failure; A41.02 Sepsis due to Methicillin resistant Staphylococcus aureus; R65.20 Severe sepsis without septic shock; E43 Unspecified severe protein-calorie malnutrition; G92 Toxic encephalopathy; N18.5 Chronic kidney disease, stage 5; I13.2 Hypertensive heart and chronic kidney disease with heart failure and with stage 5 chronic kidney disease, or end stage renal disease; N17.9 Acute kidney failure, unspecified; I31.3 Pericardial effusion (noninflammatory); I42.9 Cardiomyopathy, unspecified; E87.1 Hypo-osmolality and hyponatremia; G20 Parkinson's disease; F02.80 Dementia in other diseases classified elsewhere, unspecified severity, without behavioral disturbance, psychotic disturbance, mood disturbance, and anxiety; D63.1 Anemia in chronic kidney disease; E86.0 Dehydration; F32.9 Major depressive disorder, single episode, unspecified; E03.9 Hypothyroidism, unspecified; Z86.73 Personal history of transient ischemic attack (TIA), and cerebral infarction without residual deficits; Z86.718 Personal history of other venous thrombosis and embolism; R56.9 Unspecified convulsions; R63.0 Anorexia; Z68.34 Body mass index [BMI] 34.0-34.9, adult; K63.89 Other specified diseases of intestine; R13.10 Dysphagia, unspecified; E83.42 Hypomagnesemia; R19.7 Diarrhea, unspecified; R62.7 Adult failure to thrive; E87.8 Other disorders of electrolyte and fluid balance, not elsewhere classified
CPT/HCPCS: 36415; 71045; 76770; 80048; 80053; 81003; 82248; 82270; 82550; 82728; 82962; 83540; 83550; 83605; 83690; 83735; 83880; 84439; 84443; 84481; 84484; 85007; 85025; 85610; 85730; 86710; 86850; 86900; 86901; 86920; 87040; 87081; 87181; 87324; 93005; 93306; 94003; 94150; 96365; 96367; 99291; J7030; J8499

== ENCOUNTER 2019-10-07 12:01 | Inpatient (IN) | payer MEDICARE, OTHER ==
[~2019-10-07] VITALS: Ht 154.9 cm; Wt 91.2 kg
[2019-10-07] VITALS (9 sets, daily range): BP systolic 112–137; BP diastolic 60–82
[~2019-10-07 12:01] MED LIST changes: +APRESOLINE50 MG GT; +BICITRA30 ML GT; +LANSOPRAZOLE30 MG GT; +LEVOTHYROXINE125 MCG GT; +LINEZOLID-600 MG/300 IV; +LINEZOLID600 MG GT; +LINEZOLID600 MG PO; +METOPROLOL TAR100 M1 GT; +NORVASC10 MG GT; +RESTORIL30 MG ORAL
--- NOTE | 2019-10-07 12:08 | NUR ---
ED Nurse Note: Pt brought in by [facility] from [facility] c/c fever 103.9 at longterm and abd pain since today, per EMS report pt was given 650mg tylenol given prior to coming to ED. noted pt tacypnea with temp 102 in triage. pt reports abd pain but no n/v/d at this time. pt AA&ox4, gcs=15, skin hot to touch and dry, tacypnea but no sx respiratory distress noted, airway intact, pt on RA o2sat 96%, LS=clear, no cough noted, abd soft tender mild distended, gtube noted, pt noted redness and wound on posterior sacral and greg inner thigh and sacral area. picture taken. sinus tach on speck dyer noted. will cont monitor. safety measures in place. daugther at the bedside.
[2019-10-07] MEDS ORDERED: Cefepime HCl 2 GM in NS 110 ML IV SCH (12:15)
--- NOTE | 2019-10-07 12:30 | NUR ---
ED Nurse Note: PT CLEANED AND CHANGED AND DIAPER REMOVED SWABS COLLECTED PT RECTAL TEMP 104 NOTED, ERMD NOTIFIED.
[2019-10-07] MEDS ORDERED: Vancomycin 1 GM in NS 275 ML IVPB ONE (12:45)
[2019-10-07] MEDS ORDERED: Zosyn 3.375gm inj ONE (12:46)
[2019-10-07] MEDS: Piperacillin/Tazobactam 3.375 GM in D5W 110 ML IV SCH ×2 (12:48→22:50)
[2019-10-07 12:49] LABS: APPEARANCE,URINE CLEAR; BILIRUBIN, URINE NEGATIVE (NEGATIVE); COLOR,URINE PALE YELLOW; GLUCOSE, URINE (UA) NEGATIVE (NEGATIVE); KETONES,URINE NEGATIVE (NEGATIVE); LEUKOCYTE ESTERASE ,URINE NEGATIVE (NEGATIVE); NITRITE,URINE NEGATIVE (NEGATIVE); PH,URINE 5 (4.5-8.0); PROTEIN,URINE 3+ (NEGATIVE); UROBILINOGEN,URINE NORMAL MG/DL (0.0-1.0)
[2019-10-07 12:54] LABS: HEMOGLOBIN 9.4 G/DL (12.0-16.0); MEAN CORPUSCULAR VOLUME 90 FL (80-99); PLATELET COUNT 183 K/UL (150-450); RED BLOOD COUNT 3.23 M/UL (4.20-5.40); RED CELL DISTRIBUTION WIDTH 12.9 % (11.6-14.8); WHITE BLOOD COUNT 15.8 K/UL (4.8-10.8)
[2019-10-07 13:01] LABS: ALANINE AMINOTRANSFERASE 27 U/L (12-78); ALBUMIN 2.5 G/DL (3.4-5.0); ALBUMIN/GLOBULIN RATIO 0.5 (1.0-2.7); ALKALINE PHOSPHATASE 48 U/L (46-116); ANION GAP 18 mmol/L (5-15); ASPARTATE AMINO TRANSFERASE 64 U/L (15-37); BILIRUBIN,TOTAL 0.5 MG/DL (0.2-1.0); BLOOD UREA NITROGEN 112 mg/dL (7-18); CALCIUM 9.5 MG/DL (8.5-10.1); CARBON DIOXIDE 15 MMOL/L (21-32); CHLORIDE 125 MMOL/L (98-107); CKMB < 0.5 NG/ML (0.0-3.6); CREATINE KINASE 54 U/L (26-308); CREATININE 5.8 MG/DL (0.55-1.30); SODIUM 157 MMOL/L (136-145)
[2019-10-07 13:02] LABS: POTASSIUM 6.3 MMOL/L (3.5-5.1)
[2019-10-07] MEDS ORDERED: Insulin Human Regular 100units/ml 3ml IV ONE (13:15)
[2019-10-07] MEDS ORDERED: Calcium Gluconate 1gm/10ml vial IVP ONE (13:15)
[2019-10-07] MEDS ORDERED: Sodium Bicarbonate 50ml Carp IV ONE (13:15)
[2019-10-07] MEDS ORDERED: Sodium Polystyrene Sulfonate 15gm Powder ORAL ONE (13:15)
[2019-10-07] MEDS ORDERED: Albuterol ud Inhalation HHN ONE (13:15)
--- NOTE | 2019-10-07 13:17 | NUR ---
HAND-OFF: Report given to RN KEVEN [facility].
--- NOTE | 2019-10-07 13:33 | NUR ---
RESPIRATORY NOTE: Pt refused to finish breathing tx. Explained 3x the benefits of the treatment. Pt still refused. ENRIQUE keith.
--- NOTE | 2019-10-07 14:27 | NUR ---
ED Nurse Note: Patient had large amt of loose stool, cleaned and kept dry. x1 vomit with yellowish emesis, ERMD aware. Zofran ordered.
--- NOTE | 2019-10-07 14:36 | Diagnostic Imaging Report ---
Indication: Shortness of breath Technique: One view of the chest Comparison: 09/23/2019 Findings: The heart is borderline enlarged. The lungs and pleural spaces are clear. There is a gastrostomy. Findings are unchanged Impression: Borderline cardiomegaly. No acute process
--- NOTE | 2019-10-07 14:37 | Emergency Room Report ---
History of Present Illness General Chief Complaint: Fever Source: Medical Record Present Illness HPI 73-year-old female sent in for fever at correction. Patient found to have temperature of 103.6, given Tylenol prior to arrival. Patient has a history of chronic kidney disease stage V. Patient with sacral ulcer and PEG tube. Patient has no complaints Allergies: Coded Allergies: ERYTHROMYCIN BASE (Unverified Allergy, Intermediate, 07/14/19) Per patient not allergic to medications or food Patient History PMH Narrative Chronic kidney disease, anemia and kidney disease, hypertension, pericardial effusion, and STEMI, MRSA, G-tube, dementia PSxH Narrative GTube Nursing Documentation-PMH Past Medical History: No History, Except For Hx Cardiac Problems: Yes Hx Hypertension: Yes Hx Asthma: No Hx Cancer: No Hx Gastrointestinal Problems: No Hx Neurological Problems: Yes Hx Cerebrovascular Accident: Yes Hx Parkinson's Disease: Yes Hx Seizures: Yes Hx Speech Problem: Yes - Garbled Review of Systems Constitutional: Reports: fever; Denies: chills Respiratory: Denies: cough, shortness of breath Cardiovascular: Denies: chest pain, palpitations Gastrointestinal: Reports: abdominal pain Musculoskeletal: Reports: back pain Skin: Reports: lesions All Other Systems: limited Narrative Limited due to dementia. Physical Exam Vital Signs Date Time Temp Pulse Resp B/P (MAP) Pulse Ox O2 Delivery O2 Flow Rate FiO2 10/07/19 11:58 102.4 110 20 132/70 (90) 90 Room Air 10/07/19 13:23 21 Sp02 EP Interpretation: reviewed, normal General Appearance: no apparent distress, alert, GCS 15, non-toxic Neck: full range of motion, supple/symm/no masses Respiratory: chest non-tender, lungs clear, normal breath sounds, speaking full sentences Cardiovascular #1: regular rate, rhythm, no edema Cardiovascular #2: 2+ radial (R), 2+ radial (L) Gastrointestinal: normal bowel sounds, non tender, soft, non-distended, no guarding, no rebound, other - PEG tube Neurologic: alert Skin: other - Sacral erythema mild no open wounds Medical Decision Making ER Course 73-year-old female presents with fever from correction. Patient noted to have PEG tube and mild sacral skin changes. Patient has known chronic kidney disease. Differential includes sepsis, urinary tract infection, pneumonia, wound infection, septic shock. Patient found to have hyperkalemia. Patient noted to have elevated lactic acid. Patient covered with broad-spectrum antibiotics and 30 cc/kg fluid bolus. Patient had episode of vomiting after hyperkalemia medications. Ordered Zofran. Patient's case discussed with Dr. Rivas who accepted admission to [facility] Laboratory Tests Test 10/07/19 12:05 10/07/19 12:20 White Blood Count 15.8 K/UL (4.8-10.8) H Red Blood Count 3.23 M/UL (4.20-5.40) L Hemoglobin 9.4 G/DL (12.0-16.0) L Hematocrit 29.0 % (37.0-47.0) L Mean Corpuscular Volume 90 FL (80-99) Mean Corpuscular Hemoglobin 29.3 PG (27.0-31.0) Mean Corpuscular Hemoglobin Concent 32.5 G/DL (32.0-36.0) Red Cell Distribution Width 12.9 % (11.6-14.8) Platelet Count 183 K/UL (150-450) Mean Platelet Volume 6.6 FL (6.5-10.1) Neutrophils (%) (Auto) % (45.0-75.0) Lymphocytes (%) (Auto) % (20.0-45.0) Monocytes (%) (Auto) % (1.0-10.0) Eosinophils (%) (Auto) % (0.0-3.0) Basophils (%) (Auto) % (0.0-2.0) Differential Total Cells Counted 100 Neutrophils % (Manual) 83 % (45-75) H Lymphocytes % (Manual) 4 % (20-45) L Monocytes % (Manual) 3 % (1-10) Eosinophils % (Manual) 2 % (0-3) Basophils % (Manual) 0 % (0-2) Band Neutrophils 8 % (0-8) Platelet Estimate Adequate Platelet Morphology Normal Hypochromasia 1+ Lactic Acid Level 7.90 mmol/L (0.4-2.0) H Troponin I 0.004 ng/mL (0.000-0.056) Urine Color Pale yellow Urine Appearance Clear Urine pH 5 (4.5-8.0) Urine Specific [place] 1.010 (1.005-1.035) Urine Protein 3+ (NEGATIVE) H Urine Glucose (UA) Negative (NEGATIVE) Urine Ketones Negative (NEGATIVE) Urine Blood 2+ (NEGATIVE) H Urine Nitrite Negative (NEGATIVE) Urine Bilirubin Negative (NEGATIVE) Urine Urobilinogen Normal MG/DL (0.0-1.0) Urine Leukocyte Esterase Negative (NEGATIVE) Urine RBC 2-4 /HPF (0 - 2) H Urine WBC 0-2 /HPF (0 - 2) Urine Squamous Epithelial Cells Few /LPF (NONE/OCC) Urine Bacteria Few /HPF (NONE) Sodium Level 157 MMOL/L (136-145) H Potassium Level 6.3 MMOL/L (3.5-5.1) *H Chloride Level 125 MMOL/L (98-107) H Carbon Dioxide Level 15 MMOL/L (21-32) L Anion Gap 18 mmol/L (5-15) H Blood Urea Nitrogen 112 mg/dL (7-18) H Creatinine 5.8 MG/DL (0.55-1.30) H Estimate Glomerular Filtration Rate mL/min (>60) Glucose Level 109 MG/DL (74-106) H Calcium Level 9.5 MG/DL (8.5-10.1) Total Bilirubin 0.5 MG/DL (0.2-1.0) Aspartate Amino Transferase (AST) 64 U/L (15-37) H Alanine Aminotransferase (ALT) 27 U/L (12-78) Alkaline Phosphatase 48 U/L (46-116) Total Creatine Kinase 54 U/L (26-308) Creatine Kinase MB < 0.5 NG/ML (0.0-3.6) Creatine Kinase MB Relative Index 0.9 Total Protein 7.5 G/DL (6.4-8.2) Albumin 2.5 G/DL (3.4-5.0) L Globulin 5.0 g/dL Albumin/Globulin Ratio 0.5 (1.0-2.7) L Lab Results Impression Hyperkalemia, chronic kidney disease, elevated lactic acid consistent with presenting symptoms of sepsis EKG Diagnostic Results EKG Time: 12:17 EP Interpretation: Sinus tachycardia rate of 108 T wave flattening lateral leads, no peaked T Rate: tachycardiac Last Vital Signs Date Time Temp Pulse Resp B/P (MAP) Pulse Ox O2 Delivery O2 Flow Rate FiO2 10/07/19 13:23 107 22 100 Room Air 21 10/07/19 12:30 104.0 137/73 Disposition: ADMITTED INPATIENT Condition: Serious Referrals: NOT CHOSEN IPA/MD,REFERRING (PCP) Sepsis Event Note Evaluation Current Stage of Sepsis: Severe Sepsis Possible Source: Unknown Focused Exam Allergies: Coded Allergies: ERYTHROMYCIN BASE (Unverified Allergy, Intermediate, 07/14/19) Per patient not allergic to medications or food Date Exam Occurred: Oct 07, 2019 Time Exam Occurred: 14:50 Laboratory Studies Laboratory Tests Test 10/07/19 12:05 10/07/19 12:20 White Blood Count 15.8 K/UL (4.8-10.8) H Red Blood Count 3.23 M/UL (4.20-5.40) L Hemoglobin 9.4 G/DL (12.0-16.0) L Hematocrit 29.0 % (37.0-47.0) L Mean Corpuscular Volume 90 FL (80-99) Mean Corpuscular Hemoglobin 29.3 PG (27.0-31.0) Mean Corpuscular Hemoglobin Concent 32.5 G/DL (32.0-36.0) Red Cell Distribution Width 12.9 % (11.6-14.8) Platelet Count 183 K/UL (150-450) Mean Platelet Volume 6.6 FL (6.5-10.1) Neutrophils (%) (Auto) % (45.0-75.0) Lymphocytes (%) (Auto) % (20.0-45.0) Monocytes (%) (Auto) % (1.0-10.0) Eosinophils (%) (Auto) % (0.0-3.0) Basophils (%) (Auto) % (0.0-2.0) Differential Total Cells Counted 100 Neutrophils % (Manual) 83 % (45-75) H Lymphocytes % (Manual) 4 % (20-45) L Monocytes % (Manual) 3 % (1-10) Eosinophils % (Manual) 2 % (0-3) Basophils % (Manual) 0 % (0-2) Band Neutrophils 8 % (0-8) Platelet Estimate Adequate Platelet Morphology Normal Hypochromasia 1+ Lactic Acid Level 7.90 mmol/L (0.4-2.0) H Troponin I 0.004 ng/mL (0.000-0.056) Urine Color Pale yellow Urine Appearance Clear Urine pH 5 (4.5-8.0) Urine Specific [place] 1.010 (1.005-1.035) Urine Protein 3+ (NEGATIVE) H Urine Glucose (UA) Negative (NEGATIVE) Urine Ketones Negative (NEGATIVE) Urine Blood 2+ (NEGATIVE) H Urine Nitrite Negative (NEGATIVE) Urine Bilirubin Negative (NEGATIVE) Urine Urobilinogen Normal MG/DL (0.0-1.0) Urine Leukocyte Esterase Negative (NEGATIVE) Urine RBC 2-4 /HPF (0 - 2) H Urine WBC 0-2 /HPF (0 - 2) Urine Squamous Epithelial Cells Few /LPF (NONE/OCC) Urine Bacteria Few /HPF (NONE) Sodium Level 157 MMOL/L (136-145) H Potassium Level 6.3 MMOL/L (3.5-5.1) *H Chloride Level 125 MMOL/L (98-107) H Carbon Dioxide Level 15 MMOL/L (21-32) L Anion Gap 18 mmol/L (5-15) H Blood Urea Nitrogen 112 mg/dL (7-18) H Creatinine 5.8 MG/DL (0.55-1.30) H Estimat Glomerular Filtration Rate mL/min (>60) Glucose Level 109 MG/DL (74-106) H Calcium Level 9.5 MG/DL (8.5-10.1) Total Bilirubin 0.5 MG/DL (0.2-1.0) Aspartate Amino Transf (AST/SGOT) 64 U/L (15-37) H Alanine Aminotransferase (ALT/SGPT) 27 U/L (12-78) Alkaline Phosphatase 48 U/L (46-116) Total Creatine Kinase 54 U/L (26-308) Creatine Kinase MB < 0.5 NG/ML (0.0-3.6) Creatine Kinase MB Relative Index 0.9 Total Protein 7.5 G/DL (6.4-8.2) Albumin 2.5 G/DL (3.4-5.0) L Globulin 5.0 g/dL Albumin/Globulin Ratio 0.5 (1.0-2.7) L Vital Signs Last 24 Hour Vital Signs Date Time Temp Pulse Resp B/P (MAP) Pulse Ox O2 Delivery O2 Flow Rate FiO2 10/07/19 14:00 99.1 113 24 132/82 Room Air 113 10/07/19 13:30 99.1 106 29 116/81 98 Room Air 10/07/19 13:23 107 22 100 Room Air 21 10/07/19 13:23 106 24 100 Room Air 21 107 22 100 10/07/19 13:00 105 35 137/73 97 Room Air 10/07/19 12:30 106 35 Room Air 10/07/19 12:30 104.0 106 35 137/73 98 Room Air 10/07/19 11:58 102.4 110 20 132/70 (90) 90 Room Air Respiratory Exam: No Wheezes Cardiovascular Exam: RRR, S1, S2 Capillary Refill: Less Than 2 Seconds Peripheral Pulse: Strong Pulse Location: Radial Skin Exam: Normal Jhonny Barrow M.D. Oct 07, 2019 14:37
--- NOTE | 2019-10-07 15:46 | NUR ---
ED Nurse Note: Oral temp 98.7, SR on court recording monitor, HR 99, BP 134/68, Spo2 98% RA.
--- NOTE | 2019-10-07 16:10 | NUR ---
ED Nurse Note: Report given to ENRIQUE [place].
--- NOTE | 2019-10-07 16:45 | NUR ---
NURSE NOTES: RECEIVED DIRECT ADMISSION FROM ED DPT.PT IS 73 YRS OLD FEMALE ADMITTED WITH DX OF SEPSIS AND FEVER.RECEIVED PT VIA GURNEY ESCORTED BY RANDY FIELD SALES SPECIALIST OF ED DPT. PT IS ALERT TO NAME AND PLACE ABLE TO FALLOWS SIMPLE COMMANDS. PT INCONTINENT OF LOOSE B.M SM AMT .PT WITH SACRAL REDNESS AND STG 2 PRESSURE ULCER ALSO REDNESS ON PUBIC AREA AND UNDER BILAT BREAST AREA. RENDERED TOTAL NURSING CARE DONE. SACRAL AREA CLEANSED WITH NS AND PAD DRY AND COVER WITH OBTIFOAM DSG. FULL BOFY ASSESSMENT DONE. PLACED A TELEPHONE CALL TO DR AZEVEDO AND LEFT MESSAGE REGARDING NEW ADMISSION. A WAITING FOR M.D TO CALL ME BACK. WILL CONT TO MONITOR.
--- NOTE | 2019-10-07 19:15 | NUR ---
HAND-OFF: Report given to .DREW NUNEZ.
--- NOTE | 2019-10-07 19:45 | Consultation ---
DATE OF CONSULTATION: 10/07/2019 CONSULTING PHYSICIAN: Jose Lemus M.D. REFERRING PHYSICIAN: Chema Hendricks M.D. REASON FOR CONSULTATION: Azotemia, hyperkalemia, sepsis. HISTORY OF PRESENT ILLNESS: The patient has chronic kidney disease stage 5 and I came to see her in routine visit at [facility] but she had fever of 103.6, and was sent to the emergency room. The patient has had a history of hypertension, prior CVA, morbid obesity, secondary hyperparathyroidism, gastritis. She had prolonged hospitalizations for anorexia, refusing to eat and gastrostomy was placed recently. On her most recent admission, she had MRSA sepsis likely due to a PICC line that was removed and she completed her course of IV antibiotics. She had fever and lethargy today when I saw her in the care home and they sent her to the hospital. ALLERGIES: None known. HABITS: She has smoked in the past and quit. No alcohol or drugs. PAST SURGICAL HISTORY: Gastrostomy. MEDICATIONS: Norvasc 10 mg daily, hydralazine 100 mg every 8 hours, Prevacid 30 mg daily, levothyroxine 125 mcg daily, metoprolol tartrate 100 mg q.12 hours, linezolid 600 mg b.i.d. REVIEW OF SYSTEMS: The patient is unable, at this time major problems as above. PHYSICAL EXAMINATION: VITAL SIGNS: Current vital signs, temperature 98.4, pulse 105, blood pressure 112/63, respiratory rate 22. HEAD, EYES, EARS, NOSE, AND THROAT: Oral mucosa is dry. Sclerae are nonicteric. NECK: No adenopathy . LUNGS: Rhonchi bilaterally. HEART: Rhythm is regular. I hear no murmur. ABDOMEN: Soft without organomegaly. I noticed a gastrostomy in place. No tenderness. EXTREMITIES: No edema, cyanosis, or clubbing. NEUROLOGIC: She is alert and responsive but confused and disoriented. Ocular motions intact in all directions. Smile is symmetric. She moves all extremities. PERTINENT LABORATORY DATA: White count 15.8, hemoglobin is 9.4. Sodium 157, potassium 6.3, chloride 125, CO2 15, anion gap 18, BUN 112, creatinine 5.8. Lactic acid 10.9. Total CK is normal at 54, albumin 2.5. IMPRESSION: 1. Sepsis likely recurrent MRSA sepsis. 2. Lactic acidosis. 3. Chronic kidney disease, stage 4. Acute kidney injury secondary to sepsis. 5. Lactic acidosis. 6. Dehydration. 7. Hyperkalemia. PLAN: We will give her large volumes of IV fluids to correct her electrolyte imbalance and azotemia. She was started on broad-spectrum antibiotics. She may need dialysis in near future but we need to control sepsis prior to putting in another line. Detailed orders are given. Jose Lemus M.D. DR: Ham JOB#: [id number] CC:
--- NOTE | 2019-10-07 19:45 | NUR ---
NURSE NOTES: Received patient from Surya RN. Patient is asleep, awakes to name. Receiving oxygen via room air, RR of 28 and O2 Saturation at 96%. G-tube is patent and intact. IV site is left hand 22g. Bed is locked, placed in lowest position, side rails up x3, call light within reach. Will continue to monitor.
--- NOTE | 2019-10-07 20:00 | NUR ---
NURSE NOTES: Patient went down to CT scan with RN.
[2019-10-07] MEDS: Sodium Bicarbonate 100 ML in D5W 1000ml 1,000 ML IV SCH (20:08)
--- NOTE | 2019-10-07 20:30 | NUR ---
NURSE NOTES: Patient returned to floor, no signs of distress during CT scan and transport. Will continue to monitor.
[2019-10-07] MEDS: Acetaminophen 650mg/20.3ml GT PRN (20:34)
[2019-10-07] MEDS ORDERED: Metoprolol Tartrate 100mg tab GT SCH (21:00)
--- NOTE | 2019-10-07 21:15 | History and Physical Report ---
DATE OF ADMISSION: 10/07/2019 CHIEF COMPLAINT: Acute renal failure, sepsis, and fevers. HISTORY OF PRESENT ILLNESS: The patient is an unfortunate 73-year-old female. She has a history of chronic kidney disease, hypertension, congestive heart failure. She has a recent history of line sepsis and she is status post G-tube placement because of poor p.o. intake. She was transferred from her nephrology appointment with complaints of high fevers of 103. The patient is otherwise without complaints. There are no reports of any diarrhea, cough, or chest pain. No dysuria. On evaluation in the emergency room, the patient was febrile to 104, she had a pulse of 106, respirations were 35, blood pressure is 137/73. The patient was pancultured. Broad-spectrum IV antibiotics have been instituted and the patient is now admitted for further evaluation and care. PAST MEDICAL HISTORY: As above. PAST SURGICAL HISTORY: None. CURRENT MEDICATIONS: Reconciled and reviewed. ALLERGIES: Include erythromycin. FAMILY HISTORY: Noncontributory. SOCIAL HISTORY: Negative for tobacco, ethanol, or drugs. REVIEW OF SYSTEMS: Unobtainable as the patient is confused. PHYSICAL EXAMINATION: VITAL SIGNS: Current temperature is 98.4, pulse 105, respirations 22, blood pressure 113/69. GENERAL: The patient is well developed, no apparent distress. HEART: Regular rate and rhythm. LUNGS: Clear. ABDOMEN: Soft, nontender, nondistended. EXTREMITIES: No clubbing, cyanosis, or edema. LABORATORY AND DIAGNOSTIC DATA: Labs show white count of 16,000, hemoglobin 9.4, hematocrit 29. Sodium 157, potassium 6.3, chloride 125, bicarb 15, BUN 112, creatinine was 5.8. Lactic acid level was 10. UA was clear. Chest x-ray also was clear. ASSESSMENT: This is an unfortunate female with a prior history of hypertension, chronic kidney disease admitted with sepsis etiology of which is unclear. PROBLEM LIST: 1. Sepsis. 2. Acute on chronic renal failure. 3. Anemia. 4. Status post G-tube placement. 5. Toxic metabolic encephalopathy. PLAN: Aggressive fluid resuscitation. Broad-spectrum IV antibiotic therapy. Cardiology, Infectious Disease consultations will be obtained. We will follow pending cultures. We will monitor the patient's lactic acid level. Continue skin care. Chema Delmar Hendricks DR: GRIS JOB#: [id number] CC:
--- NOTE | 2019-10-07 21:24 | NUR ---
NURSE NOTES: On vital signs assessment at 1999 patient's Oral Temperature read 101.2 Degrees Fahrenheit. Prescribed Tylenol was given and ice packs were placed on patient. On reassessment patient's oral temperature read 100.1 Degrees Fahrenheit. Will continue to monitor.
[2019-10-07] MEDS: HydrALAZINE 50mg tab GT SCH (22:00)
[2019-10-07] MEDS ORDERED: HydrALAZINE 50mg tab GT SCH (22:00)
--- NOTE | 2019-10-07 22:44 | NUR ---
NURSE NOTES: Hydralazine was held due to blood pressure being 101/48. Parameters for Hydralazine is to hold if BP is less than 150. Will continue to monitor.
[2019-10-07] MEDS: Morphine Sulfate 2mg/ml Inj(IV/IM USE ONLY) IVP PRN (23:53)
[2019-10-08] VITALS: BP 91/42
--- NOTE | 2019-10-08 00:16 | Diagnostic Imaging Report ---
Indication: Abdominal pain Technique: Spiral acquisitions obtained through the abdomen and pelvis. No oral contrast utilized, per emergency room physician request No IV contrast utilized, per referring physician request.. Multiplanar reconstructions were generated. Total dose length product 1071 mGycm. CTDIvol(s) 18 mGy. Dose reduction achieved using automated exposure control Comparison: 08/18/2019 Findings: The appendix is not visualized. However, no findings to suggest acute appendicitis are evident. No evidence of colonic diverticulosis or diverticulitis. There is liquid stool seen within the proximal colon. Small bowel loops are somewhat prominent, fluid-filled. There is a gastrostomy in good position. The distal esophagus is unremarkable. The duodenum is unremarkable. There is trace free fluid around the dome of the liver. The lack of IV contrast limits assessment of the solid organs. The liver demonstrates slight atrophy and some surface nodularity. No focal abnormality. The gallbladder is unremarkable; gallstones reported on prior exams visible. Bile ducts, pancreas are unremarkable. Some varices are seen in the lesser sac. The spleen demonstrates granulomatous calcifications. It is mildly enlarged, measuring 13 cm long axis dimension. The adrenals are unremarkable. Exophytic contour abnormalities are seen in the bilateral kidneys, likely representing cysts described on prior sonogram. No renal or ureteral calculi, hydronephrosis, or hydroureter. No retroperitoneal mass or adenopathy. There is a left hip prosthesis, streak artifact from which obscures a significant portion of the pelvis and may obscure pathology. No definite pelvic mass or adenopathy. Dense consolidation is seen in the visualized posterior right lower lobe. The left lung base is clear. The consolidation is a new finding since the prior study. There is a small amount of pericardial fluid, also evident previously. The bones are unremarkable. Impression: Dense consolidation in the posterior right lower lobe, likely pneumonia Liquid stool in the proximal colon, could indicate diarrheal illness Trace free intraperitoneal fluid Slight hepatic atrophy and surface nodularity raising possibility of cirrhotic change Small lesser sac varices and splenomegaly raises possibility of portal hypertension Pericardial effusion, also evident previously Other findings as noted, including probable small bilateral renal cysts, left hip prosthesis, old granulomatous disease within the spleen This agrees with the preliminary interpretation provided overnight by [facility] teleradiology service, with some additional findings. The CT scanner at [facility] is accredited by the [employer] [employer] and the scans are performed using protocols designed to limit radiation exposure to as low as reasonably achievable to attain images of sufficient resolution adequate for diagnostic evaluation.
[2019-10-08] MEDS: Sodium Bicarbonate 100 ML in D5W 1000ml 1,000 ML IV SCH ×4 (01:42→18:06)
--- NOTE | 2019-10-08 03:15 | Consultation ---
DATE OF CONSULTATION: 10/07/2019 CARDIOLOGY CONSULTATION CONSULTING PHYSICIAN: Lance Rivas M.D. REQUESTING PHYSICIAN: Chema Hendricks M.D. REASON FOR CONSULTATOIN: Severe sepsis with hyperkalemia, lactic acidosis, and history of pericardial effusion. HISTORY OF PRESENT ILLNESS: This is a 73-year-old female, known to me from prior care. She has been convalescing at a longterm facility. She developed fevers up to 103.6, and was sent to the emergency room. She has an indwelling PICC line. The patient was evaluated in the emergency room and was noted to have a lactic acid level over 10 and a potassium of 6.5. She was given insulin, glucose, and Kayexalate. She was also pancultured and started on IV antimicrobials. I have been asked to assist with cardiovascular care. PAST MEDICAL HISTORY: Hypertension with hypertensive heart disease, hypothyroidism, cerebrovascular disease with history of CVA and dementia, morbid obesity, hypothyroidism secondary to hyperparathyroidism, chronic kidney disease stage 5, chronic gastritis, history of pericardial effusion, failure to thrive status post gastrostomy tube, history of MRSA sepsis, diastolic dysfunction, and degenerative valve disease. MEDICATIONS: Reviewed and reconciled. ALLERGIES: None. FAMILY HISTORY: Noncontributory. SOCIAL HISTORY: Prior smoker. No alcohol or substance abuse. REVIEW OF SYSTEMS: The patient is presently confused and I am unable to get data. Prior hospital records have been reviewed x20 minutes and pertinent data has been outlined above. PHYSICAL EXAM: VITAL SIGNS: Presently blood pressure 112/63, pulse 105, respirations 22, and afebrile. HEENT: Conjunctivae pink. Arcus senilis. Oropharynx clear. Mucous membranes dry. NECK: Supple. Jugular venous pressure difficult to assess. LUNGS: Bilateral breath sounds and rhonchi. CARDIAC: Regular rhythm and rate. Normal S1, S2 with a fourth heart sound. No murmur or rub. ABDOMEN: Soft and obese. G-tube site intact. No tenderness. EXTREMITIES: No clubbing or cyanosis. No edema. NEUROLOGIC: With symmetric strength. No asterixis. LABORATORY DATA: White count 15.8 and hemoglobin 9.4. Sodium 157, potassium 6.3, chloride 125, bicarb 15, BUN 112, and creatinine 5.8. Lactic acid 10.9. CK 54. Albumin 2.5. IMPRESSION: 1. Severe sepsis, probable source is MRSA from indwelling lines, increased risk for endocarditis. 2. Lactic acidosis. 3. Acute on chronic renal failure. 4. Hypertensive heart disease. 5. Hyperkalemia. 6. Dehydration. 7. Hypernatremia. 8. Hyperchloremia. 9. No signs of tamponade. PLAN: 1. Intravenous fluid hydration. 2. Antimicrobials. 3. Hold parameters for antihypertensives. 4. Serial lactic acid levels. 5. DVT and stress ulcer prophylaxis. 6. Repeat echocardiogram. 7. Thyroid panel. Lance Rivas M.D. DR: GRACIELA JOB#: [id number] CC:
[2019-10-08 04:00] VITALS: BP 98/52
[2019-10-08 05:36] LABS: HEMATOCRIT 23.1 % (37.0-47.0); HEMOGLOBIN 7.4 G/DL (12.0-16.0); MEAN CORPUSCULAR VOLUME 93 FL (80-99); PLATELET COUNT 128 K/UL (150-450); RED BLOOD COUNT 2.49 M/UL (4.20-5.40); RED CELL DISTRIBUTION WIDTH 14.4 % (11.6-14.8)
[2019-10-08 05:56] LABS: ALANINE AMINOTRANSFERASE 69 U/L (12-78); ALBUMIN 1.9 G/DL (3.4-5.0); ALBUMIN/GLOBULIN RATIO 0.5 (1.0-2.7); ALKALINE PHOSPHATASE 29 U/L (46-116); ANION GAP 24 mmol/L (5-15); ASPARTATE AMINO TRANSFERASE 155 U/L (15-37); BILIRUBIN,TOTAL 0.5 MG/DL (0.2-1.0); BLOOD UREA NITROGEN 119 mg/dL (7-18); CALCIUM 8.3 MG/DL (8.5-10.1); CARBON DIOXIDE 13 MMOL/L (21-32); CHLORIDE 121 MMOL/L (98-107); CREATININE 6.8 MG/DL (0.55-1.30); POTASSIUM 5.3 MMOL/L (3.5-5.1); SODIUM 158 MMOL/L (136-145)
[2019-10-08] MEDS: HydrALAZINE 50mg tab GT SCH ×3 (06:00→21:53)
[2019-10-08] MEDS: Piperacillin/Tazobactam 3.375 GM in D5W 110 ML IV SCH (06:16)
[2019-10-08] MEDS: Levothyroxine 125mcg tab GT SCH (06:16)
--- NOTE | 2019-10-08 07:20 | NUR ---
NURSE NOTES: RECEIVED BED SIDE REPORT FROM GILBERT WHITMORE RN. RECEIVED PT WITH HOB ELEVATED 45 DEGREE EYES OPES WITH VERBAL COMMANDS ,DENIES PAIN AT THIS TIME. PT RECEIVING SODIUM BICARBONATE RUNNING @ 200ML/HRS INFUSING WELL CONNECTED TO H.L ON LT HAND. PT WITH GT RECEIVING NEPRO @ 20cc/hrs ,NO RESIDUAL NOTED AT THIS TIME. FULL BODY ASSESSMENT DONE.PT REPOSITIONED IN BED Q 2HRS TO PROMOTED COMFORT & TO PREVENT FURTHER SKIN BREAK DOWN. DR AZEVEDO CAME TO SEE THE PT AND MADE AWARE & NOTIFIED REGARDING PT HGB 7.4, HCT 23.1,K+ 5.3, Na+ 158,BUN 119, CRE 6.8,LACTIC ACID 13.00,B/P 98/48. ALSO ENDORSE THE CT OF ABD REPORT. M.D ORDER TO GIVE NS 500ML BOLUS.NEW ORDERS NOTED AND CARRIED OUT. WILL CONT TO MONITOR.
--- NOTE | 2019-10-08 07:54 | NUR ---
HAND-OFF: Report given to Surya NUNEZ.
[2019-10-08 08:00] VITALS: BP 98/42
[2019-10-08] MEDS ORDERED: Vancomycin 1gm/D5W 275ml IVPB ONE ×2 (08:00)
--- NOTE | 2019-10-08 08:15 | General Progress Note ---
Assessment/Plan Problem List: (1) Sepsis ICD Codes: A41.9 - Sepsis, unspecified organism SNOMED: 17548787 (2) Lactic acid acidosis ICD Codes: E87.2 - Acidosis SNOMED: 66388451 (3) Anemia ICD Codes: D64.9 - Anemia, unspecified SNOMED: 125135945 (4) Alkalosis, metabolic ICD Codes: E87.3 - Alkalosis, metabolic SNOMED: 9268811 (5) Acidosis ICD Codes: E87.2 - Acidosis SNOMED: 54538803 (6) UTI (urinary tract infection) ICD Codes: N39.0 - Urinary tract infection, site not specified SNOMED: 66738252 (7) Acute renal failure (ARF) ICD Codes: N17.9 - Acute kidney failure, unspecified SNOMED: 85802162 Status: stable Assessment/Plan: iv abx follow up cultures ID eval pending surgery eval bolus ivf transfuse- left message with dtr. no call back. transfusion needed emergently. will likely need HD guarded d/w Dtr last night x 10 mins Subjective ROS Limited/Unobtainable: No Constitutional: Reports: fever, malaise, weakness HEENT: Reports: no symptoms Cardiovascular: Reports: no symptoms Respiratory: Reports: shortness of breath Gastrointestinal/Abdominal: Reports: abdominal pain Genitourinary: Reports: no symptoms Neurologic/Psychiatric: Reports: pre-existing deficit Endocrine: Reports: no symptoms Hematologic/Lymphatic: Reports: anemia Allergies: Coded Allergies: ERYTHROMYCIN BASE (Unverified Allergy, Intermediate, 07/14/19) Per patient not allergic to medications or food All Systems: reviewed and negative except above Subjective c/o abd pain. CT with abd wall abscess ? renal fxn worse. lactic acid trending up. no urine output Objective Last 24 Hour Vital Signs Date Time Temp Pulse Resp B/P (MAP) Pulse Ox O2 Delivery O2 Flow Rate FiO2 10/08/19 06:00 99/52 10/08/19 04:00 Nasal Cannula 2.0 10/08/19 04:00 100.3 91 28 98/52 (67) 100 91 10/08/19 03:50 95 10/08/19 00:00 99.8 90 32 91/42 (58) 97 90 10/08/19 00:00 Nasal Cannula 2.0 10/07/19 23:33 93 10/07/19 22:00 101/48 10/07/19 21:04 100.1 10/07/19 20:33 104 113/69 10/07/19 20:00 101.2 103 30 115/60 (78) 94 103 10/07/19 20:00 Nasal Cannula 2.0 10/07/19 17:00 105 10/07/19 16:48 98.4 105 22 112/63 (79) 96 105 10/07/19 16:48 Room Air 10/07/19 15:30 98.2 99 25 133/66 97 Room Air 10/07/19 15:00 98.9 105 23 112/61 Room Air 10/07/19 14:30 110 34 134/63 98 Room Air 10/07/19 14:00 99.1 113 24 132/82 Room Air 113 10/07/19 13:30 99.1 106 29 116/81 98 Room Air 10/07/19 13:23 107 22 100 Room Air 21 10/07/19 13:23 106 24 100 Room Air 21 107 22 100 10/07/19 13:00 105 35 137/73 97 Room Air 10/07/19 12:30 106 35 Room Air 10/07/19 12:30 104.0 106 35 137/73 98 Room Air 10/07/19 11:58 102.4 110 20 132/70 (90) 90 Room Air Intake and Output 10/07/19 10/08/19 19:00 07:00 Intake Total 50 ml 2598.333 ml Output Total 1 ml 200 ml Balance 49 ml 2398.333 ml Intake Free Water 50 ml 400 ml IV Total 2033.333 ml Tube Feeding 165 ml Output Urine Total 200 ml Stool Total 1 ml # Voids 1 # Bowel Movements 1 2 Laboratory Tests 10/07/19 12:05: White Blood Count 15.8H, Red Blood Count 3.23L, Hemoglobin 9.4L, Hematocrit 29.0L, Mean Corpuscular Volume 90, Mean Corpuscular Hemoglobin 29.3, Mean Corpuscular Hemoglobin Concent 32.5, Red Cell Distribution Width 12.9, Platelet Count 183, Mean Platelet Volume 6.6, Neutrophils (%) (Auto) , Lymphocytes (%) ( Auto) , Monocytes (%) (Auto) , Eosinophils (%) (Auto) , Basophils (%) (Auto) , Differential Total Cells Counted 100, Neutrophils % (Manual) 83H, Lymphocytes % (Manual) 4L, Monocytes % (Manual) 3, Eosinophils % (Manual) 2, Basophils % ( Manual) 0, Band Neutrophils 8, Platelet Estimate Adequate, Platelet Morphology Normal, Hypochromasia 1+, Lactic Acid Level 7.90H, Troponin I 0.004 10/07/19 12:20: Urine Color Pale yellow, Urine Appearance Clear, Urine pH 5, Urine Specific [place] 1.010, Urine Protein 3+H, Urine Glucose (UA) Negative, Urine Ketones Negative, Urine Blood 2+H, Urine Nitrite Negative, Urine Bilirubin Negative, Urine Urobilinogen Normal, Urine Leukocyte Esterase Negative, Urine RBC 2-4H, Urine WBC 0-2, Urine Squamous Epithelial Cells Few, Urine Bacteria Few, Sodium Level 157H, Potassium Level 6.3*H, Chloride Level 125H, Carbon Dioxide Level 15L , Anion Gap 18H, Blood Urea Nitrogen 112H, Creatinine 5.8H, Estimat Glomerular Filtration Rate , Glucose Level 109H, Calcium Level 9.5, Total Bilirubin 0.5, Aspartate Amino Transf (AST/SGOT) 64H, Alanine Aminotransferase (ALT/SGPT) 27, Alkaline Phosphatase 48, Total Creatine Kinase 54, Creatine Kinase MB < 0.5, Creatine Kinase MB Relative Index 0.9, Total Protein 7.5, Albumin 2.5L, Globulin 5.0, Albumin/Globulin Ratio 0.5L 10/07/19 15:30: Lactic Acid Level 10.90H 10/07/19 20:28: Arterial Blood pH 7.342L, Arterial Blood Partial Pressure CO2 16.7*L, Arterial Blood Partial Pressure O2 67.8L, Arterial Blood HCO3 8.8*L, Arterial Blood Oxygen Saturation 91.8L, Arterial Blood Base Excess -15.0*L, [place] Test Positive 10/08/19 04:25: White Blood Count 14.0H, Red Blood Count 2.49L, Hemoglobin 7.4L, Hematocrit 23.1L, Mean Corpuscular Volume 93, Mean Corpuscular Hemoglobin 29.7, Mean Corpuscular Hemoglobin Concent 31.9L, Red Cell Distribution Width 14.4, Platelet Count 128L, Mean Platelet Volume 6.3L, Neutrophils (%) (Auto) , Lymphocytes (%) (Auto) , Monocytes (%) (Auto) , Eosinophils (%) (Auto) , Basophils (%) (Auto) , Neutrophils % (Manual) [Pending], Lymphocytes % (Manual) [Pending], Platelet Estimate [Pending], Platelet Morphology [Pending], Sodium Level 158H, Potassium Level 5.3H, Chloride Level 121H, Carbon Dioxide Level 13L , Anion Gap 24H, Blood Urea Nitrogen 119H, Creatinine 6.8H, Estimat Glomerular Filtration Rate , Glucose Level 106, Lactic Acid Level 13.00H, Calcium Level 8.3L, Total Bilirubin 0.5, Aspartate Amino Transf (AST/SGOT) 155H, Alanine Aminotransferase (ALT/SGPT) 69, Alkaline Phosphatase 29L, Troponin I 0.006, Pro- B-Type Natriuretic Peptide 4993H, Total Protein 5.5L, Albumin 1.9L, Globulin 3.6 , Albumin/Globulin Ratio 0.5L, Thyroid Stimulating Hormone (TSH) 10.759H, Random Vancomycin Level 13.0 10/08/19 06:15: Lactic Acid Level 13.00H Height (Feet): 5 Height (Inches): 2.00 Weight (Pounds): 178 General Appearance: WD/WN, alert Neck: supple Cardiovascular: normal rate, regular rhythm Respiratory/Chest: chest wall non-tender, lungs clear, normal breath sounds, no respiratory distress Abdomen: normal bowel sounds, tender Edema: no edema noted Arm (L), no edema noted Arm (R), no edema noted Leg (L), no edema noted Leg (R), no edema noted Pedal (L), no edema noted Pedal (R), no edema noted Generalized Chema Hendricks MD Oct 08, 2019 08:15
--- NOTE | 2019-10-08 08:31 | Nephrology Progress Note ---
Assessment/Plan Status: stable Assessment/Plan: A/P 1) JJ on CKD 4 - hyperkalemia, acidosis - uremia - arik and HD daily for next 3 days 2) Sepsis- ? abd abscess. Gen surgery to evaluate - abx per ID 3) Anemia- Hgb 7.4. Bld Tx if Hgb <7 or active bleed 4) Hyperkalemia- HD today Subjective Date patient seen: Oct 08, 2019 Time patient seen: 08:28 ROS Limited/Unobtainable: No Allergies: Coded Allergies: ERYTHROMYCIN BASE (Unverified Allergy, Intermediate, 07/14/19) Per patient not allergic to medications or food Subjective Patient feeling tired and fatigued Objective Last 24 Hour Vital Signs Date Time Temp Pulse Resp B/P (MAP) Pulse Ox O2 Delivery O2 Flow Rate FiO2 10/08/19 06:00 99/52 10/08/19 04:00 Nasal Cannula 2.0 10/08/19 04:00 100.3 91 28 98/52 (67) 100 91 10/08/19 03:50 95 10/08/19 00:00 99.8 90 32 91/42 (58) 97 90 10/08/19 00:00 Nasal Cannula 2.0 10/07/19 23:33 93 10/07/19 22:00 101/48 10/07/19 21:04 100.1 10/07/19 20:33 104 113/69 10/07/19 20:00 101.2 103 30 115/60 (78) 94 103 10/07/19 20:00 Nasal Cannula 2.0 10/07/19 17:00 105 10/07/19 16:48 98.4 105 22 112/63 (79) 96 105 10/07/19 16:48 Room Air 10/07/19 15:30 98.2 99 25 133/66 97 Room Air 10/07/19 15:00 98.9 105 23 112/61 Room Air 10/07/19 14:30 110 34 134/63 98 Room Air 10/07/19 14:00 99.1 113 24 132/82 Room Air 113 10/07/19 13:30 99.1 106 29 116/81 98 Room Air 10/07/19 13:23 107 22 100 Room Air 21 10/07/19 13:23 106 24 100 Room Air 21 107 22 100 10/07/19 13:00 105 35 137/73 97 Room Air 10/07/19 12:30 106 35 Room Air 10/07/19 12:30 104.0 106 35 137/73 98 Room Air 10/07/19 11:58 102.4 110 20 132/70 (90) 90 Room Air Intake and Output 10/07/19 10/08/19 19:00 07:00 Intake Total 50 ml 2598.333 ml Output Total 1 ml 200 ml Balance 49 ml 2398.333 ml Intake Free Water 50 ml 400 ml IV Total 2033.333 ml Tube Feeding 165 ml Output Urine Total 200 ml Stool Total 1 ml # Voids 1 # Bowel Movements 1 2 Laboratory Tests 10/07/19 12:05: White Blood Count 15.8H, Red Blood Count 3.23L, Hemoglobin 9.4L, Hematocrit 29.0L, Mean Corpuscular Volume 90, Mean Corpuscular Hemoglobin 29.3, Mean Corpuscular Hemoglobin Concent 32.5, Red Cell Distribution Width 12.9, Platelet Count 183, Mean Platelet Volume 6.6, Neutrophils (%) (Auto) , Lymphocytes (%) ( Auto) , Monocytes (%) (Auto) , Eosinophils (%) (Auto) , Basophils (%) (Auto) , Differential Total Cells Counted 100, Neutrophils % (Manual) 83H, Lymphocytes % (Manual) 4L, Monocytes % (Manual) 3, Eosinophils % (Manual) 2, Basophils % ( Manual) 0, Band Neutrophils 8, Platelet Estimate Adequate, Platelet Morphology Normal, Hypochromasia 1+, Lactic Acid Level 7.90H, Troponin I 0.004 10/07/19 12:20: Urine Color Pale yellow, Urine Appearance Clear, Urine pH 5, Urine Specific [place] 1.010, Urine Protein 3+H, Urine Glucose (UA) Negative, Urine Ketones Negative, Urine Blood 2+H, Urine Nitrite Negative, Urine Bilirubin Negative, Urine Urobilinogen Normal, Urine Leukocyte Esterase Negative, Urine RBC 2-4H, Urine WBC 0-2, Urine Squamous Epithelial Cells Few, Urine Bacteria Few, Sodium Level 157H, Potassium Level 6.3*H, Chloride Level 125H, Carbon Dioxide Level 15L , Anion Gap 18H, Blood Urea Nitrogen 112H, Creatinine 5.8H, Estimat Glomerular Filtration Rate , Glucose Level 109H, Calcium Level 9.5, Total Bilirubin 0.5, Aspartate Amino Transf (AST/SGOT) 64H, Alanine Aminotransferase (ALT/SGPT) 27, Alkaline Phosphatase 48, Total Creatine Kinase 54, Creatine Kinase MB < 0.5, Creatine Kinase MB Relative Index 0.9, Total Protein 7.5, Albumin 2.5L, Globulin 5.0, Albumin/Globulin Ratio 0.5L 10/07/19 15:30: Lactic Acid Level 10.90H 10/07/19 20:28: Arterial Blood pH 7.342L, Arterial Blood Partial Pressure CO2 16.7*L, Arterial Blood Partial Pressure O2 67.8L, Arterial Blood HCO3 8.8*L, Arterial Blood Oxygen Saturation 91.8L, Arterial Blood Base Excess -15.0*L, [place] Test Positive 10/08/19 04:25: White Blood Count 14.0H, Red Blood Count 2.49L, Hemoglobin 7.4L, Hematocrit 23.1L, Mean Corpuscular Volume 93, Mean Corpuscular Hemoglobin 29.7, Mean Corpuscular Hemoglobin Concent 31.9L, Red Cell Distribution Width 14.4, Platelet Count 128L, Mean Platelet Volume 6.3L, Neutrophils (%) (Auto) , Lymphocytes (%) (Auto) , Monocytes (%) (Auto) , Eosinophils (%) (Auto) , Basophils (%) (Auto) , Neutrophils % (Manual) [Pending], Lymphocytes % (Manual) [Pending], Platelet Estimate [Pending], Platelet Morphology [Pending], Sodium Level 158H, Potassium Level 5.3H, Chloride Level 121H, Carbon Dioxide Level 13L , Anion Gap 24H, Blood Urea Nitrogen 119H, Creatinine 6.8H, Estimat Glomerular Filtration Rate , Glucose Level 106, Lactic Acid Level 13.00H, Calcium Level 8.3L, Total Bilirubin 0.5, Aspartate Amino Transf (AST/SGOT) 155H, Alanine Aminotransferase (ALT/SGPT) 69, Alkaline Phosphatase 29L, Troponin I 0.006, Pro- B-Type Natriuretic Peptide 4993H, Total Protein 5.5L, Albumin 1.9L, Globulin 3.6 , Albumin/Globulin Ratio 0.5L, Thyroid Stimulating Hormone (TSH) 10.759H, Random Vancomycin Level 13.0 10/08/19 06:15: Lactic Acid Level 13.00H Height (Feet): 5 Height (Inches): 2.00 Weight (Pounds): 178 General Appearance: mild distress EENT: normal ENT inspection Neck: normal alignment Cardiovascular: normal rate, regular rhythm Respiratory/Chest: rhonchi - bilaterally Abdomen: non tender, soft Edema: 1+ Arm (L), 1+ Arm (R), 1+ Leg (L), 1+ Leg (R), 1+ Pedal (L), 1+ Pedal ( R), 1+ Generalized Cody Hoyos MD Oct 08, 2019 08:31
[2019-10-08] MEDS ORDERED: Piperacillin/Tazobactam 3.375 GM in D5W 55 ML IVPB SCH ×2 (09:00→12:00)
[2019-10-08 12:00] VITALS: BP 113/56
[2019-10-08] MEDS ORDERED: Zosyn 3.375gm q12h **Extended infusion IVPB SCH ×2 (12:00)
--- NOTE | 2019-10-08 12:22 | NUR ---
RD ASSESSMENT & RECOMMENDATIONS SEE CARE ACTIVITY FOR COMPLETE ASSESSMENT DAILY ESTIMATED NEEDS: Needs based on CKD IV, 57.7kg abw 25-30 kcals/kg 4567-7178 total kcals (Without HD:0.6-1) (With HD: 1.2-1.8) g protein/kg (Without HD: 35-58) (With HD: 69-104) g total protein Fluid per MD NUTRITION DIAGNOSIS: 1) Altered nutrition related lab values r/t JJ on CKD 4 as evidenced by elev creat (6.8), elev BUN 119, elev K (5.3). elev Na (158), w/ an orer for Broderick cath, HD. 2) Swallowing difficulty r/t dysphagia as evidenced by GT dep. CURRENT DIET:NPO CURRENT TF:NEPRO @35ml/hr x22 hrs ENTERAL NUTRITION RECOMMENDATIONS: WITH CONTINUED HD: Nepro @ 40ml/hr x 22 hrs to provide 880ml, 1584kcal, 71g prot, 640ml free water - W/ continued HD, rec to increase goal rate to 40ml/hr x 22 hrs (hold 1 hr before and after Synthroid med) - HOB over 30 degrees/ water flush per MD WITHOUT HD, maintain current TF of Nepro @ 35ml/hr x 22 hrs to provide 770ml, 1386 kcal, 62g pro, 560ml free H2o -> will meet 96% est kcal and 107% est pro needs ADDITIONAL RECOMMENDATIONS: 1) Calibrated bedscale wt for accurate CBW - bedscale on 10/08 reads a negative number 2) Monitor renal fxn, monitor for continuation of HD -> w/ an order for Broderick cath, daily HD x 3 at this time 3) Check phos and mag level. . .
--- NOTE | 2019-10-08 12:37 | NUR ---
RD ASSESSMENT & RECOMMENDATIONS SEE CARE ACTIVITY FOR COMPLETE ASSESSMENT DAILY ESTIMATED NEEDS: Needs based on CKD IV, Wound 57.7kg abw 25-30 kcals/kg 7742-4340 total kcals (Without HD:0.6-1) (With HD: 1.25-1.8) g protein/kg (Without HD: 35-58) (With HD: 72-104) g total protein Fluid per MD mL/kg . total fluid mLs NUTRITION DIAGNOSIS: 1) Altered nutrition related lab values r/t JJ on CKD 4 as evidenced by elev creat (6.8), elev BUN 119, elev K (5.3). elev Na (158), w/ an order for Broderick cath, HD. 2) Swallowing difficulty r/t dysphagia as evidenced by GT dep. CURRENT TF:NEPRO @35ml/hr x22 hrs ENTERAL NUTRITION RECOMMENDATIONS: WITH CONTINUED HD: Nepro @ 42ml/hr x 22 hrs to provide 924ml, 1663kcal, 75g prot, 672ml free water - W/ continued HD, rec to increase goal rate to 42ml/hr x 22 hrs (hold 1 hr before and after Synthroid med) - HOB over 30 degrees/ water flush per MD WITHOUT HD, maintain current TF of Nepro @ 35ml/hr x 22 hrs to provide 770ml, 1386 kcal, 62g pro, 560ml free H2o -> will meet 96% est kcal and 107% est pro needs ADDITIONAL RECOMMENDATIONS: 1) Calibrated bedscale wt for accurate CBW - bedscale on 10/08 reads a negative number 2) Monitor renal fxn, monitor for continuation of HD -> w/ an order for Broderick cath, daily HD x 3 at this time -> Rec to increase TF goal rate w/ continued HD 3) Check phos and mag level. 4) Wound healing: add Nephrovite x 1 Kael 1pkt BID
[2019-10-08] MEDS ORDERED: Lidocaine 1% Plain 30 ml INJ PRN (14:00)
[2019-10-08] MEDS ORDERED: Zosyn 2.25 gm in D5W 55ml IV SCH ×2 (14:00→18:00)
[2019-10-08] MEDS ORDERED: Heparin1,000 units/500ml Premix(Conc:2 units/ml) INJ PRN (14:00)
--- NOTE | 2019-10-08 14:00 | NUR ---
NURSE NOTES:WOUND CARE NOTES:Pt presented on admission with partially opened DTPI Sacrum.Base of wound extends from sacrum to R and L buttocks and is maroon with #3 small openings ,each with slough at mid sacral area. Pt grimaced when affected area minimally palpated. Non-blanching erythema noted to R and L ischial regions. Moisture Intertrigo with surrounding erythema and denuded skin noted to R and L breasts. Mild odor noted each skin folds of breasts.Small amt sanguineous exudate noted from L breast. Mons pubis,labia majora, and medial aspects of both upper thighs erythematous and denuded. R ad L heels are firm and blanchable. Tx.Plan: [place] Liquid Skin Repair to R and L breasts(x1 application) applied to folds of each breasts. Apply Moisture Barrier paste to perineum with each incontinence care. Apply Moisture Barrier Paste to Sacrum.Cover with Optifoam drsgs. Change every 3 days and prn. APM/SIM Mattress overlay. Reposition at least every 2 hours or as tolerated. Off-load heels with pillow. Addendum: 10/08/19 at 1424 by Mary Ellen Gaytan LVN ADDENDUM TO ABOVE WOUND NOTES:Measurement of sacral pressure injury (L)13cm x (W)13.5cm.
--- NOTE | 2019-10-08 15:00 | Consultation ---
DATE OF CONSULTATION: 10/08/2019 INFECTIOUS DISEASES CONSULTATION This consult is for coverage of Dr. Reyes. CONSULTING PHYSICIAN: Ruperto Freedman M.D. PRIMARY ATTENDING PHYSICIAN: Chema Hendricks M.D. REASON FOR CONSULTATION: Sepsis, pneumonia. HISTORY OF PRESENT ILLNESS: This is a 73-year-old female admitted [facility] a [facility] because of fever. She had a fever of 103.6 in facility. In hospital, she had fever up to 104, pulse rate of 106, respiratory rate of 35, had lactic acidosis. The patient is noncommunicative right now, was found to have worsening of renal failure. PAST MEDICAL HISTORY: The patient was recently discharged from [facility] on 09/28/2019 and in previous admission have MRSA sepsis and the patient was taking linezolid at nursing facility. 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 ALLERGIES: Allergic to erythromycin. MEDICATIONS: Zosyn, Prevacid, vancomycin, levothyroxine, hydralazine, morphine, Tylenol. SOCIAL HISTORY: . skilled nursing resident. No history of alcohol, drug abuse, or smoking. REVIEW OF SYSTEMS: Unobtainable. PHYSICAL EXAMINATION: VITAL SIGNS: Temperature 100.3, pulse 91, blood pressure 99/53. GENERAL APPEARANCE: Seems well developed. HEAD AND NECK: Pale conjunctiva. HEART: Normal rate. LUNGS: Clear. ABDOMEN: Soft. G-tube in place. EXTREMITIES: No edema. LABORATORY AND DIAGNOSTIC DATA: WBC 16840, hemoglobin 7.4, hematocrit 23.1, platelet 128,000. Sodium 158, potassium 5.3, chloride 121, bicarb , BUN 119, creatinine 6.8. Lactic acid 13. BNP 4993. TSH is elevated at 10.7. Blood gas showed pCO2 of 16.7, pO2 67.8. UA shows 0-[address] scan of abdomen and pelvis showed right lower lobe consolidation indicating pneumonia, PEG in place, left hip replacement. Chest x-ray, cardiomegaly. IMPRESSION: 1. Severe sepsis with fever, leukocytosis, tachycardia, and tachypnea. 2. pneumonia in right lower lobe. 3. Acute renal failure. 4. Chronic kidney disease. 5. Hyperkalemia. 6. Hypernatremia. 7. Hypoxemia. 8. Anemia. 9. Thrombocytopenia. 10. Hypothyroidism. 11. Recent MRSA sepsis. 12. Parkinson disease. 13. Dementia. RECOMMENDATION: Continue with vancomycin and Zosyn. We will follow up the culture. 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 At the end of my exam, I thank Dr. Chema Hendricks, for involving me in the care of this patient. Ruperto Freedman M.D. DR: Rio JOB#: [id number] CC: YUE
--- NOTE | 2019-10-08 15:08 | NUR ---
CASE MANAGEMENT:REVIEW 73 YR OLD FEMALE BIBA FROM [facility]; FEVER OF 103.6 SI: SEPSIS 104.0 110 34 132/70 90% ON RA WBC+15.8 K+6.3 BUN+112 CR+5.8 IS: IV CEFEPIME IV ZOSYN IV VANCOMYCIN IV CA GLUCONATE IV INSULIN IV D50 ALBUTEROL HHN IV NA HCO3 KAYEXALATE PO 2L NS BOLUS : TO STEP DOWN UNIT INTERQUAL CRITERIA MET
--- NOTE | 2019-10-08 15:30 | Pre-Procedure Note/Attestation ---
Pre-Procedure Note/Attestation Complete Prior to Procedure Planned Procedure: not applicable Procedure Narrative: arik catheter Indications for Procedure Pre-Operative Diagnosis: renal failure Attestation I attest that I discussed the nature of the procedure; its benefits; risks and complications; and alternatives (and the risks and benefits of such alternatives ), prior to the procedure, with the patient (or the patient's legal termite control representative). I attest that, if there was a reasonable possibility of needing a blood transfusion, the patient (or the patient's legal termite control representative) was given the [facility] standardized written summary, pursuant to the [place] Blood Safety Act ([place] Health and Safety Code # 1645, as amended). I attest that I re-evaluated the patient just prior to the surgery and that there has been no change in the patient's H&P, except as documented below: Discussed by phone with pt's. daughter Sharron at 1515 Garry Barillas MD Oct 08, 2019 15:30
--- NOTE | 2019-10-08 15:40 | NUR ---
NURSE NOTES:PATTI CATHETER WITH PIG TAIL INSERTED ON RT IJ BY DR ROONEY.PT TOLERATED WELL PROCEDURE. CHEST X- RAY DONE TO CONFIRM CATHETER PLACEMENT. WILL CONT TO MONITOR.
[2019-10-08 16:00] VITALS: BP 122/54
--- NOTE | 2019-10-08 16:18 | Brief Operative Note ---
Immediate Post Operative Note Operative Note Pre-op Diagnosis: renal failure Procedure: R IJV arik catheter Post-op Diagnosis: same as pre-op Surgeon: Coco Caraballo Anesthesia: local Specimen: none Complications: none Fluids: none Implant(s) used?: No Garry Caraballo MD Oct 08, 2019 16:18
--- NOTE | 2019-10-08 16:21 | NUR ---
NON TUNNELED DIALYSIS CATHETER INSERTED BY DR. MICHELLE BLACKWOOD. FA
--- NOTE | 2019-10-08 16:54 | Diagnostic Imaging Report ---
Indication: Acute renal failure Technique: Procedure performed at bedside. Procedural timeout performed. Total sterile technique, including sterile probe cover and sterile gel, sterile gloves, hand hygiene, hat, mask, sterile gown, large sterile drape, and preparation with 2% chlorhexidine utilized. Local anesthesia with 1% lidocaine. Under real-time ultrasound guidance, puncture right internal jugular vein using 20-gauge micropuncture needle, passage 0.018 guidewire, insertion 4 [place] micropuncture introducer, passage 0.035 guidewire, over which was passed serial dilators and then a 13 [place] 15 cm triple-lumen temporary dialysis catheter. Guidewire was removed. Catheter ports were aspirated and flushed. The catheter was fixed to the skin. Patient tolerated procedure well. A chest x-ray was obtained, documents catheter tip position at the high right atrium. Comparison: none Findings: As above Impression: Successful bedside placement of right transjugular temporary dialysis catheter, as described.
--- NOTE | 2019-10-08 17:49 | Consultation ---
History of Present Illness General Reason for Hospitalization: Fever Present Illness HPI This is a 73-year-old female [facility] who is a assisted resident care dependent who presented to [facility] for evaluation of fever and abnormal labs. Patient identified in assisted to have a fever as high as 103.6. Labs noted a significant leukocytosis, anemia, lactic acidosis. Patient was noted to have abdominal wall cellulitis and nodules on examination. Surgery was called to evaluate and assist with care. Patient seen , patient evaluated, chart reviewed. Imaging reviewed with radiologist. Examination performed at bedside with nursing staff present and all care instructions given as well as plans. Allergies: Coded Allergies: ERYTHROMYCIN BASE (Unverified Allergy, Intermediate, 07/14/19) Per patient not allergic to medications or food Medication History Scheduled Amlodipine Besylate (Norvasc), 10 MG GT DAILY Hydralazine HCl (Hydralazine HCl), 100 MG GT Q8HR Lansoprazole* (Lansoprazole*), 30 MG GT DAILY Levothyroxine Sodium* (Levothyroxine Sodium*), 125 MCG GT ACBREAKFAST Linezolid (Linezolid), 600 MG GT BID, (Reported) Metoprolol Tartrate* (Metoprolol Tartrate*), 100 MG GT EVERY 12 HOURS Discontinued Medications Calcitriol (Calcitriol), 0.25 MCG PO DAILY, (Reported) Discontinued Reason: Medication dose changed Cholecalciferol (Vitamin D3)* (Vitamin D*), 2,000 UNITS ORAL TWICE A DAY, ( Reported) Discontinued Reason: MD discontinued med Cinacalcet* (Sensipar*), 30 MG ORAL DAILY, (Reported) Discontinued Reason: MD discontinued med Clonidine Hcl (Clonidine Hcl), (Reported) Discontinued Reason: Medication dose changed Ferrous Sulfate (Ferrous Sulfate), 325 MG ORAL DAILY, (Reported) Discontinued Reason: MD discontinued med Hydralazine Hcl* (Hydralazine Hcl*), 100 MG ORAL EVERY 8 HOURS, (Reported) Discontinued Reason: Medication dose changed Metoprolol Tartrate* (Metoprolol Tartrate*), 100 MG ORAL BID, (Reported) Discontinued Reason: Medication dose changed Nifedipine (Nifedipine*), 60 MG ORAL BID, (Reported) Discontinued Reason: MD discontinued med Sodium Citrate (Sod Citrate-Citric Acid Soln), 30 ML GT BID Discontinued Reason: MD discontinued med Temazepam (Restoril*), 30 MG ORAL BEDTIME, (Reported) Discontinued Reason: discontinued med Patient History Limited by: medical condition History Provided By: Medical Record, PMD Healthcare decision maker Resuscitation status Full Code Advanced Directive on File Past Medical/Surgical History Past Medical/Surgical History: (1) Respiratory failure (2) [id number] (3) Lung infiltrate (4) Facial hematoma (5) PERICA (6) Rhabdomyolysis (7) NSTEMI (non-ST elevated myocardial infarction) (8) Hypopotassemia (9) Proteinuria (10) Pancytopenia (11) Pericardial effusion, acute (12) Oliguria (13) Neutropenia (14) Dehydration (15) Acute renal failure (ARF) (16) Anemia in chronic kidney disease (17) Abdominal pain in female (18) Anorexia (19) Hypothyroidism (20) Hypertensive nephrosclerosis (21) Chronic kidney disease, stage III (moderate) (22) CKD (chronic kidney disease) stage 4, GFR 15-29 ml/min (23) Anemia in chronic kidney disease (24) CKD (chronic kidney disease) stage 5, GFR less than 15 ml/min (25) CHF exacerbation (26) Acidosis (27) Anemia (28) Alkalosis, metabolic (29) Sepsis (30) UTI (urinary tract infection) (31) Lactic acid acidosis (32) Acute renal failure (ARF) Review of Systems Review of Symptoms Cannot obtain given patient's current medical condition and baseline Physical Exam Physical Exam General appearance: appears stated age Head: Normocephalic, without obvious abnormality, atraumatic Eyes: conjunctivae/corneas clear. PERRL, EOM's intact. Fundi benign Throat: Lips, mucosa, and tongue normal. Teeth and gums normal Neck: supple, symmetrical, trachea midline, no adenopathy, thyroid: not enlarged, symmetric, no tenderness/mass/nodules, no carotid bruit and no JVD Lungs: clear to auscultation bilaterally Heart: regular rate and rhythm, S1, S2 normal, no murmur, click, rub or gallop Abdomen: soft, non-tender. Bowel sounds normal. No masses, no organomegaly ++ peg Extremities: extremities normal, atraumatic, no cyanosis or edema Pulses: 2+ and symmetric Skin: Skin color, texture, turgor normal. No rashes or lesions see below Neurologic: Grossly normal Last 24 Hour Vital Signs Date Time Temp Pulse Resp B/P (MAP) Pulse Ox O2 Delivery O2 Flow Rate FiO2 10/08/19 16:00 104 10/08/19 16:00 Nasal Cannula 2.0 10/08/19 16:00 98.1 106 18 122/54 (76) 100 106 10/08/19 14:00 113/56 10/08/19 12:00 108 10/08/19 12:00 Nasal Cannula 2.0 10/08/19 12:00 97.6 108 22 113/56 (75) 100 108 10/08/19 08:00 Nasal Cannula 2.0 10/08/19 08:00 104 10/08/19 08:00 97.9 107 26 98/42 (60) 100 107 10/08/19 06:00 99/52 10/08/19 04:00 Nasal Cannula 2.0 10/08/19 04:00 100.3 91 28 98/52 (67) 100 91 10/08/19 03:50 95 10/08/19 00:00 99.8 90 32 91/42 (58) 97 90 10/08/19 00:00 Nasal Cannula 2.0 10/07/19 23:33 93 10/07/19 22:00 101/48 10/07/19 21:04 100.1 10/07/19 20:33 104 113/69 10/07/19 20:00 101.2 103 30 115/60 (78) 94 103 10/07/19 20:00 Nasal Cannula 2.0 Intake and Output 10/07/19 10/08/19 19:00 07:00 Intake Total 50 ml 2598.333 ml Output Total 1 ml 200 ml Balance 49 ml 2398.333 ml Intake Free Water 50 ml 400 ml IV Total 2033.333 ml Tube Feeding 165 ml Output Urine Total 200 ml Stool Total 1 ml # Voids 1 # Bowel Movements 1 2 Laboratory Tests Test 10/07/19 20:28 10/08/19 04:25 10/08/19 06:15 Arterial Blood pH 7.342 (7.350-7.450) Arterial Blood Partial Pressure CO2 16.7 mmHg (35.0-45.0) *L Arterial Blood Partial Pressure O2 67.8 mmHg (75.0-100.0) L Arterial Blood HCO3 8.8 mmol/L (22.0-26.0) *L Arterial Blood Oxygen Saturation 91.8 % (95-100) L Arterial Blood Base Excess -15.0 (-2-2) *L [place] Test Positive White Blood Count 14.0 K/UL (4.8-10.8) H Red Blood Count 2.49 M/UL (4.20-5.40) L Hemoglobin 7.4 G/DL (12.0-16.0) L Hematocrit 23.1 % (37.0-47.0) L Mean Corpuscular Volume 93 FL (80-99) Mean Corpuscular Hemoglobin 29.7 PG (27.0-31.0) Mean Corpuscular Hemoglobin Concent 31.9 G/DL (32.0-36.0) L Red Cell Distribution Width 14.4 % (11.6-14.8) Platelet Count 128 K/UL (150-450) L Mean Platelet Volume 6.3 FL (6.5-10.1) L Neutrophils (%) (Auto) % (45.0-75.0) Lymphocytes (%) (Auto) % (20.0-45.0) Monocytes (%) (Auto) % (1.0-10.0) Eosinophils (%) (Auto) % (0.0-3.0) Basophils (%) (Auto) % (0.0-2.0) Differential Total Cells Counted 100 Neutrophils % (Manual) 83 % (45-75) H Lymphocytes % (Manual) 7 % (20-45) L Monocytes % (Manual) 3 % (1-10) Eosinophils % (Manual) 1 % (0-3) Basophils % (Manual) 0 % (0-2) Band Neutrophils 6 % (0-8) Platelet Estimate Decreased L Platelet Morphology Normal Sodium Level 158 MMOL/L (136-145) H Potassium Level 5.3 MMOL/L (3.5-5.1) H Chloride Level 121 MMOL/L (98-107) H Carbon Dioxide Level 13 MMOL/L (21-32) L Anion Gap 24 mmol/L (5-15) H Blood Urea Nitrogen 119 mg/dL (7-18) H Creatinine 6.8 MG/DL (0.55-1.30) H Estimat Glomerular Filtration Rate mL/min (>60) Glucose Level 106 MG/DL (74-106) Lactic Acid Level 13.00 mmol/L (0.4-2.0) H 13.00 mmol/L (0.66-2.22) H Calcium Level 8.3 MG/DL (8.5-10.1) L Total Bilirubin 0.5 MG/DL (0.2-1.0) Aspartate Amino Transf (AST/SGOT) 155 U/L (15-37) H Alanine Aminotransferase (ALT/SGPT) 69 U/L (12-78) Alkaline Phosphatase 29 U/L (46-116) L Troponin I 0.006 ng/mL (0.000-0.056) Pro-B-Type Natriuretic Peptide 4993 pg/mL (0-125) H Total Protein 5.5 G/DL (6.4-8.2) L Albumin 1.9 G/DL (3.4-5.0) L Globulin 3.6 g/dL Albumin/Globulin Ratio 0.5 (1.0-2.7) L Thyroid Stimulating Hormone (TSH) 10.759 uiU/mL (0.358-3.740) Random Vancomycin Level 13.0 ug/mL Height (Feet): 5 Height (Inches): 2.00 Weight (Pounds): 178 Medications Current Medications Medications (Trade) Dose Ordered Sig/Jonathan Route PRN Reason Start Time Stop Time Status Last Admin Dose Admin Acetaminophen (Tylenol) 650 mg Q4H PRN GT Mild Pain/Temp > 100.5 10/07/19 20:30 11/06/19 20:29 10/07/19 20:34 Barium Sulfate (Readi-Cat 2) 450 ml NOW PRN ORAL Radiology Procedure 10/07/19 21:15 10/09/19 21:09 Fludrocortisone Acetate (Florinef) 0.1 mg BID GT 10/07/19 20:00 11/06/19 19:59 10/08/19 09:51 Heparin Sodium/ Sodium Chloride (Heparin 1000 units/500ml Premix) 1,000 unit ONCE PRN INJ line 10/08/19 14:00 10/08/19 23:59 Hydralazine HCl (Apresoline) 100 mg Q8HR GT 10/07/19 22:00 11/06/19 21:59 Lansoprazole (Prevacid) 30 mg DAILY GT 10/08/19 09:00 11/07/19 08:59 10/08/19 09:51 Levothyroxine Sodium (Synthroid) 125 mcg ACBREAKFAST GT 10/08/19 06:30 11/07/19 06:29 10/08/19 06:16 Lidocaine HCl (Xylocaine 1% 30ml) 30 ml ONCE PRN INJ line 10/08/19 14:00 10/08/19 23:59 Morphine Sulfate (Morphine Sulfate) 0.5 mg Q4H PRN IVP For Pain 10/07/19 21:30 10/14/19 21:29 10/07/19 23:53 Piperacillin Sod/ Tazobactam Sod 2.25 gm/Dextrose 55 ml @ 110 mls/hr Q8H IV 10/08/19 18:00 10/15/19 17:59 Sodium Bicarbonate 100 ml/Dextrose 1,100 ml @ 200 mls/hr Q5H30M IV 10/07/19 20:00 11/06/19 19:59 10/08/19 13:05 Vancomycin HCl (Vanco rx to dose) 1 ea DAILY PRN MISC Per rx protocol 10/07/19 18:45 11/06/19 18:44 Assessment/Plan Problem List: (1) Lactic acid acidosis Assessment & Plan: Patient noted to have leukocytosis, fevers, abdominal wall cellulitis, lactic acidosis. Abnormal labs. Etiology and work-up continuing currently with microbiology pending and on IV antibiotics Local care being provided. Imaging noted Pt presented on admission with partially opened DTPI Sacrum.Base of wound extends from sacrum to R and L buttocks and is maroon with #3 small openings , each with slough at mid sacral area. Pt grimaced when affected area minimally palpated. Non-blanching erythema noted to R and L ischial regions. Moisture Intertrigo with surrounding erythema and denuded skin noted to R and L breasts. Mild odor noted each skin folds of breasts.Small amt sanguineous exudate noted from L breast. Mons pubis,labia majora, and medial aspects of both upper thighs erythematous and denuded. R ad L heels are firm and blanchable. Tx.Plan: [place] Liquid Skin Repair to R and L breasts(x1 application) applied to folds of each breasts. Apply Moisture Barrier paste to perineum with each incontinence care. Apply Moisture Barrier Paste to Sacrum.Cover with Optifoam drsgs. Change every 3 days and prn. APM/SIM Mattress overlay. Reposition at least every 2 hours or as tolerated. Off-load heels with pillow. ICD Codes: E87.2 - Acidosis SNOMED: 61536788 (2) Sepsis Assessment & Plan: 73-year-old female with sepsis, lactic acidosis, renal insufficiency, cellulitis, leukocytosis. Febrile, hemodynamically stable, exam as above Coordinated with radiology for urgent temporary even as catheter insertion. Placed today and will discuss with nephrology for dialysis Antibiotics as per infectious disease Trend labs IV fluid resuscitation Dense consolidation in the posterior right lower lobe, likely pneumonia Liquid stool in the proximal colon, could indicate diarrheal illness Trace free intraperitoneal fluid Slight hepatic atrophy and surface nodularity raising possibility of cirrhotic change Small lesser sac varices and splenomegaly raises possibility of portal hypertension Pericardial effusion, also evident previously abd wall cellulitis superficial and lumps likely prior injection sites and not infected. unlikely etiology of sepsis. We will follow with recommendations Thank you for allowing me to participate in patient care ICD Codes: A41.9 - Sepsis, unspecified organism SNOMED: 58089633 Kirk Em Oct 08, 2019 17:49
[2019-10-08] MEDS ORDERED: HYDRALAZINE HC100 MG GT (18:32)
--- NOTE | 2019-10-08 19:30 | NUR ---
HAND-OFF: Report given to .RULA NUNEZ.
--- NOTE | 2019-10-08 19:45 | NUR ---
NURSE NOTES: Received report from Surya Sumner RN. Pt is in bed, drowsy, oriented to name. Pt has left LJ running sodium bicarb in D5W @ 200ml/hr. NC @ 3LPM, satting at 100%. Gt tube flushed with sterile water, patent, intact, and asymptomatic. No residuals noted. GT running nephro @ 20ml/hr. Pt is sinus tach at 107 BPM. Pt appears to be resting comfortably at this time, no signs or symptoms of pain or distress noted at this time, VS within normal limits. Will to monitor closely.
[2019-10-08 20:00] VITALS: BP 112/51
--- NOTE | 2019-10-08 20:30 | NUR ---
NURSE NOTES: Received consent from Daughter Italia for dialysis and blood transfusion. Procedure explained and daughter voiced understanding. Pt started dialysis at 2030. All meds held during procedure. Charge nurse aware. BP 112/51, o2 100%, T 98.2, P 109. Will continue to monitor closely.
--- NOTE | 2019-10-08 23:30 | NUR ---
NURSE NOTES: Dialysis completed. BP 115/56, P 111, RR 22, T 98.8. No signs or symptoms of pain or distress noted at this time. Will continue to monitor closely.
[2019-10-09] VITALS (7 sets, daily range): BP systolic 101–134; BP diastolic 47–83
[2019-10-09] MEDS: Sodium Bicarbonate 100 ML in D5W 1000ml 1,000 ML IV SCH ×4 (01:28→22:57)
--- NOTE | 2019-10-09 01:30 | NUR ---
NURSE NOTES: Spoke with [facility] pharmacist Linda regarding compatibility of PRBCs, Zosyn, and Sodium Bicarb. via one access. Per pharmacist, PRBCs must be run sepeartely from other infusions. Pharmacist changed Zosyn time to 0900. Charge Nurse made aware. Will continue to monitor closely.
--- NOTE | 2019-10-09 02:00 | NUR ---
NURSE NOTES: PRBC transfusion delayed related to elevated temp of 100.6 oral. Pt given Tylenol as ordered and cooling measures started. Pt given icy sponge bath, ice packs placed under arms and groin. Charge nurse aware. Will continue to monitor closely.
--- NOTE | 2019-10-09 03:01 | NUR ---
NURSE NOTES: Pt temp is 100.3 oral, other VS within normal limits. Cooling measures reinforced including second icy bath and replacement of ice packs. PRBCs held related to elevated temp. Charge nurse made aware. Will continue to monitor closely.
--- NOTE | 2019-10-09 03:15 | Progress Note ---
DATE: 10/08/2019 CARDIOLOGY PROGRESS NOTE SUBJECTIVE: The patient remains withdrawn and lethargic. Right IJ Broderick catheter was placed with no complications. OBJECTIVE: VITAL SIGNS: Blood pressure , pulse 108, respirations 22, afebrile. LUNGS: Diminished breath sounds. Few rales. CARDIAC: Regular. Normal S1, S2 with a 1/6 systolic apical murmur. No rub. ABDOMEN: Obese, soft. EXTREMITIES: 1+ dependent edema. LABORATORY DATA: Whit count 14, hemoglobin 7.4. BUN 119, creatinine 6.8, potassium 5.3, sodium 158, chloride 121. Pro-natriuretic peptide 5000. TSH 10. IMPRESSION: 1. chronic diastolic congestive heart failure. 2. Pericardial effusion with no signs of tamponade clinically. 3. Hypothyroidism, now with rising TSH. 4. Anemia due to chronic disease and chronic kidney disease. PLAN: 1. . 2. Hemodialysis . 3. Continue nutritional support by G-tube. 4. Free water. 5. Empiric antimicrobials pending culture results. 6. DVT prophylaxis. 7. Echocardiogram to follow up on pericardial effusion. Lance Rivas M.D. DR: ATA/TAMI JOB#: [id number] CC:
--- NOTE | 2019-10-09 03:20 | NUR ---
NURSE NOTES: Pt temp is 98.9 oral, cooling measures appear to be effective. Will retrieve PRBCs from lab to start infusion per protocol. Will continue to monitor closely.
--- NOTE | 2019-10-09 04:10 | NUR ---
NURSE NOTES: Pt temp remains stable at 99.7. BP 106/54, P 107, RR 20, O2 99%. Ice packs replaced with fresh ice. PRBC transfusion started, will continue to monitor closely.
--- NOTE | 2019-10-09 04:25 | NUR ---
NURSE NOTES: BP 104/50, T 98.2, P 104, O2 @ 100%, RR 22. No signs or symptoms of adverse reaction, distress, or pain noted at this time. Will continue to monitor closely.
--- NOTE | 2019-10-09 07:28 | NUR ---
HAND-OFF: Report given to Anne-Marie Loomis RN. Pt in stable condition.
--- NOTE | 2019-10-09 07:30 | NUR ---
NURSE NOTES: Received report from ENRIQUE Sheehan. Observed patient in bed, asleep, opens eyes spontaneously to verbal stimuli. On O2 3L via NC, patient saturating 100%. Right IJ Broderick catheter intact and patent, blood transfusion ongoing. GT intact and patent with feeding infusing at prescribed rate. HOB elevated. Safety precautions in place; bed locked, alarmed, and in lowest position, side rails up x3, and call light left within reach. Will continue plan of care and monitor patient.
--- NOTE | 2019-10-09 08:00 | NUR ---
NURSE NOTES: Blood transfusion completed by pm nurse; no adverse reaction noted. Will continue to monitor.
--- NOTE | 2019-10-09 08:29 | General Progress Note ---
Assessment/Plan Problem List: (1) Sepsis ICD Codes: A41.9 - Sepsis, unspecified organism SNOMED: 82108777 (2) Lactic acid acidosis ICD Codes: E87.2 - Acidosis SNOMED: 96444252 (3) Anemia ICD Codes: D64.9 - Anemia, unspecified SNOMED: 050759353 (4) Alkalosis, metabolic ICD Codes: E87.3 - Alkalosis, metabolic SNOMED: 4218488 (5) Acidosis ICD Codes: E87.2 - Acidosis SNOMED: 01121938 (6) UTI (urinary tract infection) ICD Codes: N39.0 - Urinary tract infection, site not specified SNOMED: 39034199 (7) Acute renal failure (ARF) ICD Codes: N17.9 - Acute kidney failure, unspecified SNOMED: 75933271 Status: stable Assessment/Plan: iv abx follow up cultures wound care HD per renal bp meds on hold monitor for bleeding guarded d/w Dtr last night x 10 mins Subjective ROS Limited/Unobtainable: No Constitutional: Reports: malaise, weakness HEENT: Reports: no symptoms Cardiovascular: Reports: no symptoms Respiratory: Reports: no symptoms Gastrointestinal/Abdominal: Reports: abdominal pain Genitourinary: Reports: no symptoms Neurologic/Psychiatric: Reports: pre-existing deficit Endocrine: Reports: no symptoms Hematologic/Lymphatic: Reports: anemia Allergies: Coded Allergies: ERYTHROMYCIN BASE (Unverified Allergy, Intermediate, 07/14/19) Per patient not allergic to medications or food All Systems: reviewed and negative except above Subjective c/o abd pain. fell out of bed. denies pain. s/p HD. no uf. GNR in blood. Objective Last 24 Hour Vital Signs Date Time Temp Pulse Resp B/P (MAP) Pulse Ox O2 Delivery O2 Flow Rate FiO2 10/09/19 07:50 98.2 100 Nasal Cannula 3.0 10/09/19 07:01 112 10/09/19 04:00 Nasal Cannula 3.0 10/09/19 04:00 115 10/09/19 04:00 98.7 110 28 101/47 (65) 100 10/09/19 00:00 116 10/09/19 00:00 98.2 112 28 120/50 (73) 100 10/09/19 00:00 Nasal Cannula 2.0 10/08/19 21:53 112/51 10/08/19 20:00 98.1 109 20 112/51 (71) 100 10/08/19 20:00 Nasal Cannula 2.0 10/08/19 16:00 104 10/08/19 16:00 Nasal Cannula 2.0 10/08/19 16:00 98.1 106 18 122/54 (76) 100 106 10/08/19 14:00 113/56 10/08/19 12:00 108 10/08/19 12:00 Nasal Cannula 2.0 10/08/19 12:00 97.6 108 22 113/56 (75) 100 108 Intake and Output 10/08/19 10/09/19 19:00 07:00 Intake Total 1445 ml 160 ml Output Total 3 ml Balance 1442 ml 160 ml Intake Free Water 150 ml IV Total 1055 ml Tube Feeding 240 ml 160 ml Output Urine Total 0 ml Stool Total 3 ml # Voids 1 # Bowel Movements 3 8 Laboratory Tests 10/08/19 18:10: Lactic Acid Level 10.70H 10/08/19 23:25: Lactic Acid Level 6.20H Height (Feet): 5 Height (Inches): 2.00 Weight (Pounds): 178 General Appearance: WD/WN, alert Neck: supple Cardiovascular: regular rhythm Respiratory/Chest: chest wall non-tender, lungs clear, normal breath sounds, no respiratory distress Abdomen: normal bowel sounds, soft, no organomegaly, tender Edema: no edema noted Arm (L), no edema noted Arm (R), no edema noted Leg (L), no edema noted Leg (R), no edema noted Pedal (L), no edema noted Pedal (R), no edema noted Generalized Chema Hendricks MD Oct 09, 2019 08:29
[2019-10-09] MEDS: Zosyn 2.25 gm in D5W 55ml IV SCH ×2 (09:00→17:20)
--- NOTE | 2019-10-09 09:33 | Nephrology Progress Note ---
Assessment/Plan Status: stable Assessment/Plan: A/P 1) ESRD- have initiated dialysis - hyperkalemia, acidosis - uremia. HD treatment #2 - arik and HD daily 2/3 today 2) Sepsis- ? abd abscess. Per Gen surgery and ID 3) Anemia- s/p blood tx 4) Hyperkalemia- HD today again #2 Subjective Date patient seen: Oct 09, 2019 Time patient seen: 09:31 ROS Limited/Unobtainable: No Allergies: Coded Allergies: ERYTHROMYCIN BASE (Unverified Allergy, Intermediate, 07/14/19) Per patient not allergic to medications or food Subjective Patient just completed blood transfusion Objective Last 24 Hour Vital Signs Date Time Temp Pulse Resp B/P (MAP) Pulse Ox O2 Delivery O2 Flow Rate FiO2 10/09/19 07:50 98.2 100 Nasal Cannula 3.0 10/09/19 07:01 112 10/09/19 04:00 Nasal Cannula 3.0 10/09/19 04:00 115 10/09/19 04:00 98.7 110 28 101/47 (65) 100 10/09/19 00:00 116 10/09/19 00:00 98.2 112 28 120/50 (73) 100 10/09/19 00:00 Nasal Cannula 2.0 10/08/19 21:53 112/51 10/08/19 20:00 98.1 109 20 112/51 (71) 100 10/08/19 20:00 Nasal Cannula 2.0 10/08/19 16:00 104 10/08/19 16:00 Nasal Cannula 2.0 10/08/19 16:00 98.1 106 18 122/54 (76) 100 106 10/08/19 14:00 113/56 10/08/19 12:00 108 10/08/19 12:00 Nasal Cannula 2.0 10/08/19 12:00 97.6 108 22 113/56 (75) 100 108 Intake and Output 10/08/19 10/09/19 19:00 07:00 Intake Total 1445 ml 160 ml Output Total 3 ml Balance 1442 ml 160 ml Intake Free Water 150 ml IV Total 1055 ml Tube Feeding 240 ml 160 ml Output Urine Total 0 ml Stool Total 3 ml # Voids 1 # Bowel Movements 3 8 Laboratory Tests 10/08/19 18:10: Lactic Acid Level 10.70H 10/08/19 23:25: Lactic Acid Level 6.20H Height (Feet): 5 Height (Inches): 2.00 Weight (Pounds): 178 General Appearance: no apparent distress, alert EENT: normal ENT inspection Neck: normal alignment, supple Cardiovascular: normal rate, regular rhythm Respiratory/Chest: lungs clear, normal breath sounds Abdomen: non tender, soft Edema: 1+ Arm (L), 1+ Arm (R), 1+ Leg (L), 1+ Leg (R), 1+ Pedal (L), 1+ Pedal ( R), 1+ Generalized Cody Hoyos MD Oct 09, 2019 09:33
[2019-10-09 10:15] LABS: HEMATOCRIT 23.4 % (37.0-47.0); HEMOGLOBIN 7.9 G/DL (12.0-16.0); MEAN CORPUSCULAR VOLUME 89 FL (80-99); PLATELET COUNT 88 K/UL (150-450); RED BLOOD COUNT 2.63 M/UL (4.20-5.40); RED CELL DISTRIBUTION WIDTH 13.1 % (11.6-14.8); WHITE BLOOD COUNT 7.2 K/UL (4.8-10.8)
[2019-10-09 10:28] LABS: ALANINE AMINOTRANSFERASE 61 U/L (12-78); ALBUMIN 1.7 G/DL (3.4-5.0); ALBUMIN/GLOBULIN RATIO 0.5 (1.0-2.7); ALKALINE PHOSPHATASE 32 U/L (46-116); ANION GAP 1 mmol/L (5-15); ASPARTATE AMINO TRANSFERASE 109 U/L (15-37); BILIRUBIN,TOTAL 0.6 MG/DL (0.2-1.0); BLOOD UREA NITROGEN 57 mg/dL (7-18); CALCIUM 7.3 MG/DL (8.5-10.1); CARBON DIOXIDE 39 MMOL/L (21-32); CHLORIDE 106 MMOL/L (98-107); CREATININE 4.1 MG/DL (0.55-1.30); SODIUM 146 MMOL/L (136-145)
--- NOTE | 2019-10-09 10:42 | NUR ---
NURSE NOTES: [facility] called for dialysis order for today, ordered by Dr Hoyos. Spoke with Tiffany, awaiting for call back confirmation from concrete vibrator operator nurse.
--- NOTE | 2019-10-09 11:55 | NUR ---
NURSE NOTES: Dr Hendricks notified hgb 7.9; ordered to give 1 unit of PRBC with next scheduled dialysis. Will carry out order and will continue to monitor.
--- NOTE | 2019-10-09 12:17 | Infectious Diseases Prog Note ---
Assessment/Plan Assessment/Plan IMPRESSION: 1. Gram negative sepsis 2. pneumonia in right lower lobe. 3. Acute renal failure. 4. Chronic kidney disease. 5. Hyperkalemia. 6. Hypernatremia. 7. Hypoxemia. 8. Anemia. 9. Thrombocytopenia. 10. Hypothyroidism. 11. Recent MRSA sepsis. 12. Parkinson disease. 13. Dementia. RECOMMENDATION: Continue with vancomycin and Zosyn. We will follow up the cultures. Subjective ROS Limited/Unobtainable: Yes Constitutional: Denies: fever Cardiovascular: Reports: other - had Quiton catheter placement, started on HD Allergies: Coded Allergies: ERYTHROMYCIN BASE (Unverified Allergy, Intermediate, 07/14/19) Per patient not allergic to medications or food Objective Vital Signs Last 24 Hour Vital Signs Date Time Temp Pulse Resp B/P (MAP) Pulse Ox O2 Delivery O2 Flow Rate FiO2 10/09/19 08:00 Nasal Cannula 3.0 10/09/19 08:00 98.1 102 20 127/68 (87) 100 10/09/19 07:50 98.2 100 Nasal Cannula 3.0 10/09/19 07:01 112 10/09/19 04:00 Nasal Cannula 3.0 10/09/19 04:00 115 10/09/19 04:00 98.7 110 28 101/47 (65) 100 10/09/19 00:00 116 10/09/19 00:00 98.2 112 28 120/50 (73) 100 10/09/19 00:00 Nasal Cannula 2.0 10/08/19 21:53 112/51 10/08/19 20:00 98.1 109 20 112/51 (71) 100 10/08/19 20:00 Nasal Cannula 2.0 10/08/19 16:00 104 10/08/19 16:00 Nasal Cannula 2.0 10/08/19 16:00 98.1 106 18 122/54 (76) 100 106 10/08/19 14:00 113/56 Height (Feet): 5 Height (Inches): 2.00 Weight (Pounds): 178 General Appearance: no acute distress HEENT: mucous membranes moist Respiratory/Chest: lungs clear Cardiovascular: tachycardia, other - RIJ Broderick Abdomen: soft, non tender, other - GT in place Extremities: no edema Neurologic/Psychiatric: unresponsiveness Microbiology Date/Time Source Procedure Growth Status 10/07/19 12:20 Blood Blood Culture - Preliminary Resulted 10/07/19 12:05 Blood Blood Culture - Preliminary Gram Negative Walter Resulted 10/07/19 15:30 Nasal Nares MRSA Culture - Final NO METHICILLIN RESISTANT STAPH AUREUS... Complete 10/07/19 15:30 Rectum VRE Culture - Final NO VANCOMYCIN RESISTANT ENTEROCOCCUS ... Complete 10/07/19 15:30 Rectum Received Laboratory Tests Test 10/08/19 18:10 10/08/19 23:25 10/09/19 09:45 10/09/19 11:35 Lactic Acid Level 10.70 mmol/L (0.4-2.0) H 6.20 mmol/L (0.66-2.22) H 4.40 mmol/L (0.4-2.0) H Pending White Blood Count 7.2 K/UL (4.8-10.8) Red Blood Count 2.63 M/UL (4.20-5.40) L Hemoglobin 7.9 G/DL (12.0-16.0) L Hematocrit 23.4 % (37.0-47.0) L Mean Corpuscular Volume 89 FL (80-99) Mean Corpuscular Hemoglobin 29.9 PG (27.0-31.0) Mean Corpuscular Hemoglobin Concent 33.7 G/DL (32.0-36.0) Red Cell Distribution Width 13.1 % (11.6-14.8) Platelet Count 88 K/UL (150-450) L Mean Platelet Volume 8.2 FL (6.5-10.1) Neutrophils (%) (Auto) % (45.0-75.0) Lymphocytes (%) (Auto) % (20.0-45.0) Monocytes (%) (Auto) % (1.0-10.0) Eosinophils (%) (Auto) % (0.0-3.0) Basophils (%) (Auto) % (0.0-2.0) Differential Total Cells Counted 100 Neutrophils % (Manual) 76 % (45-75) H Lymphocytes % (Manual) 12 % (20-45) L Monocytes % (Manual) 7 % (1-10) Eosinophils % (Manual) 2 % (0-3) Basophils % (Manual) 0 % (0-2) Band Neutrophils 3 % (0-8) Platelet Estimate Decreased L Platelet Morphology Normal Red Blood Cell Morphology Normal Erythrocyte Sedimentation Rate 78 MM/HR (0-30) H Prothrombin Time 10.6 SEC (9.30-11.50) Prothromb Time International Ratio 1.0 (0.9-1.1) Activated Partial Thromboplast Time 32 SEC (23-33) Sodium Level 146 MMOL/L (136-145) H Potassium Level 3.0 MMOL/L (3.5-5.1) L Chloride Level 106 MMOL/L (98-107) Carbon Dioxide Level 39 MMOL/L (21-32) H Anion Gap 1 mmol/L (5-15) L Blood Urea Nitrogen 57 mg/dL (7-18) H Creatinine 4.1 MG/DL (0.55-1.30) H Estimat Glomerular Filtration Rate mL/min (>60) Glucose Level 121 MG/DL (74-106) H Calcium Level 7.3 MG/DL (8.5-10.1) L Total Bilirubin 0.6 MG/DL (0.2-1.0) Aspartate Amino Transf (AST/SGOT) 109 U/L (15-37) H Alanine Aminotransferase (ALT/SGPT) 61 U/L (12-78) Alkaline Phosphatase 32 U/L (46-116) L C-Reactive Protein, Quantitative 38.0 mg/dL (0.00-0.90) H Total Protein 5.4 G/DL (6.4-8.2) L Albumin 1.7 G/DL (3.4-5.0) L Globulin 3.7 g/dL Albumin/Globulin Ratio 0.5 (1.0-2.7) L Amylase Level 49 U/L (25-115) Lipase 401 U/L (73-393) H Current Medications Medications (Trade) Dose Ordered Sig/Jonathan Route PRN Reason Start Time Stop Time Status Last Admin Dose Admin Acetaminophen (Tylenol) 650 mg Q4H PRN GT Mild Pain/Temp > 100.5 10/07/19 20:30 11/06/19 20:29 10/07/19 20:34 Barium Sulfate (Readi-Cat 2) 450 ml NOW PRN ORAL Radiology Procedure 10/07/19 21:15 10/09/19 21:09 Fludrocortisone Acetate (Florinef) 0.1 mg BID GT 10/07/19 20:00 11/06/19 19:59 10/09/19 09:01 Hydralazine HCl (Apresoline) 100 mg Q8HR GT 10/07/19 22:00 11/06/19 21:59 Lansoprazole (Prevacid) 30 mg DAILY GT 10/08/19 09:00 11/07/19 08:59 10/09/19 09:00 Levothyroxine Sodium (Synthroid) 125 mcg ACBREAKFAST GT 10/08/19 06:30 11/07/19 06:29 10/08/19 06:16 Morphine Sulfate (Morphine Sulfate) 0.5 mg Q4H PRN IVP For Pain 10/07/19 21:30 10/14/19 21:29 10/07/19 23:53 Piperacillin Sod/ Tazobactam Sod 2.25 gm/Dextrose 55 ml @ 110 mls/hr Q8H IV 10/09/19 09:00 10/16/19 08:59 10/09/19 09:00 Sodium Bicarbonate 100 ml/Dextrose 1,100 ml @ 200 mls/hr Q5H30M IV 10/07/19 20:00 11/06/19 19:59 10/09/19 11:30 Vancomycin HCl (Vanco rx to dose) 1 ea DAILY PRN MISC Per rx protocol 10/07/19 18:45 11/06/19 18:44 Ruperto Freedman MD Oct 09, 2019 12:17
--- NOTE | 2019-10-09 13:00 | NUR ---
NURSE NOTES: Patient moved to a room close to nurse's station [id number] for cont. visual checks. Bed remains locked, alarmed, and in lowest position, side rails up x3, and call light left within reach. Will continue to monitor patient.
[2019-10-09] MEDS: HydrALAZINE 50mg tab GT SCH ×2 (14:00→22:58)
--- NOTE | 2019-10-09 17:17 | Cardiology Report ---
APPROVED REPORT EKG Measurement Heart [id number] OR [id number] Sinus tachycardia Minimal voltage criteria for LVH, may be normal variant Borderline ECG
--- NOTE | 2019-10-09 17:24 | NUR ---
NURSE NOTES: Second call to [facility], spoke with Vonda. Awaiting for confirmation call from HD nurse.
--- NOTE | 2019-10-09 17:34 | Surgery Progress Note ---
Surgery Progress Note Subjective Additional Comments comfortable no acute events exam unchanged labs as below wbc improved lactic acidosis improved Objective Last 24 Hour Vital Signs Date Time Temp Pulse Resp B/P (MAP) Pulse Ox O2 Delivery O2 Flow Rate FiO2 10/09/19 15:36 105 10/09/19 14:00 114/83 10/09/19 12:00 98.9 84 20 114/83 (93) 97 10/09/19 12:00 96 10/09/19 12:00 Nasal Cannula 3.0 10/09/19 08:00 Nasal Cannula 3.0 10/09/19 08:00 98.1 102 20 127/68 (87) 100 10/09/19 07:50 98.2 100 Nasal Cannula 3.0 10/09/19 07:41 95 10/09/19 07:01 112 10/09/19 04:00 Nasal Cannula 3.0 10/09/19 04:00 115 10/09/19 04:00 98.7 110 28 101/47 (65) 100 10/09/19 00:00 116 10/09/19 00:00 98.2 112 28 120/50 (73) 100 10/09/19 00:00 Nasal Cannula 2.0 10/08/19 21:53 112/51 10/08/19 20:00 98.1 109 20 112/51 (71) 100 10/08/19 20:00 Nasal Cannula 2.0 I&O Intake and Output 10/08/19 10/09/19 19:00 07:00 Intake Total 1445 ml 160 ml Output Total 3 ml Balance 1442 ml 160 ml Intake Free Water 150 ml IV Total 1055 ml Tube Feeding 240 ml 160 ml Output Urine Total 0 ml Stool Total 3 ml # Voids 1 # Bowel Movements 3 8 Dressing: other Wound: other Cardiovascular: RSR Respiratory: decreased breath sounds Abdomen: soft, present bowel sounds, non-distended, decreased bowel sounds Extremities: no cyanosis, other Laboratory Tests Test 10/08/19 18:10 10/08/19 23:25 10/09/19 09:45 10/09/19 11:35 Lactic Acid Level 10.70 mmol/L (0.4-2.0) H 6.20 mmol/L (0.66-2.22) H 4.40 mmol/L (0.4-2.0) H 4.30 mmol/L (0.66-2.22) H White Blood Count 7.2 K/UL (4.8-10.8) Red Blood Count 2.63 M/UL (4.20-5.40) L Hemoglobin 7.9 G/DL (12.0-16.0) L Hematocrit 23.4 % (37.0-47.0) L Mean Corpuscular Volume 89 FL (80-99) Mean Corpuscular Hemoglobin 29.9 PG (27.0-31.0) Mean Corpuscular Hemoglobin Concent 33.7 G/DL (32.0-36.0) Red Cell Distribution Width 13.1 % (11.6-14.8) Platelet Count 88 K/UL (150-450) L Mean Platelet Volume 8.2 FL (6.5-10.1) Neutrophils (%) (Auto) % (45.0-75.0) Lymphocytes (%) (Auto) % (20.0-45.0) Monocytes (%) (Auto) % (1.0-10.0) Eosinophils (%) (Auto) % (0.0-3.0) Basophils (%) (Auto) % (0.0-2.0) Differential Total Cells Counted 100 Neutrophils % (Manual) 76 % (45-75) H Lymphocytes % (Manual) 12 % (20-45) L Monocytes % (Manual) 7 % (1-10) Eosinophils % (Manual) 2 % (0-3) Basophils % (Manual) 0 % (0-2) Band Neutrophils 3 % (0-8) Platelet Estimate Decreased L Platelet Morphology Normal Red Blood Cell Morphology Normal Erythrocyte Sedimentation Rate 78 MM/HR (0-30) H Prothrombin Time 10.6 SEC (9.30-11.50) Prothromb Time International Ratio 1.0 (0.9-1.1) Activated Partial Thromboplast Time 32 SEC (23-33) Sodium Level 146 MMOL/L (136-145) H Potassium Level 3.0 MMOL/L (3.5-5.1) L Chloride Level 106 MMOL/L (98-107) Carbon Dioxide Level 39 MMOL/L (21-32) H Anion Gap 1 mmol/L (5-15) L Blood Urea Nitrogen 57 mg/dL (7-18) H Creatinine 4.1 MG/DL (0.55-1.30) H Estimat Glomerular Filtration Rate mL/min (>60) Glucose Level 121 MG/DL (74-106) H Calcium Level 7.3 MG/DL (8.5-10.1) L Total Bilirubin 0.6 MG/DL (0.2-1.0) Aspartate Amino Transf (AST/SGOT) 109 U/L (15-37) H Alanine Aminotransferase (ALT/SGPT) 61 U/L (12-78) Alkaline Phosphatase 32 U/L (46-116) L C-Reactive Protein, Quantitative 38.0 mg/dL (0.00-0.90) H Total Protein 5.4 G/DL (6.4-8.2) L Albumin 1.7 G/DL (3.4-5.0) L Globulin 3.7 g/dL Albumin/Globulin Ratio 0.5 (1.0-2.7) L Amylase Level 49 U/L (25-115) Lipase 401 U/L (73-393) H Plan Problems: (1) Lactic acid acidosis Assessment & Plan: Patient noted to have leukocytosis, fevers, abdominal wall cellulitis, lactic acidosis. Abnormal labs. Etiology and work-up continuing currently with microbiology pending and on IV antibiotics Local care being provided. Imaging noted Pt presented on admission with partially opened DTPI Sacrum.Base of wound extends from sacrum to R and L buttocks and is maroon with #3 small openings , each with slough at mid sacral area. Pt grimaced when affected area minimally palpated. Non-blanching erythema noted to R and L ischial regions. Moisture Intertrigo with surrounding erythema and denuded skin noted to R and L breasts. Mild odor noted each skin folds of breasts.Small amt sanguineous exudate noted from L breast. Mons pubis,labia majora, and medial aspects of both upper thighs erythematous and denuded. R ad L heels are firm and blanchable. Tx.Plan: [place] Liquid Skin Repair to R and L breasts(x1 application) applied to folds of each breasts. Apply Moisture Barrier paste to perineum with each incontinence care. Apply Moisture Barrier Paste to Sacrum.Cover with Optifoam drsgs. Change every 3 days and prn. APM/SMI Mattress overlay. Reposition at least every 2 hours or as tolerated. Off-load heels with pillow. (2) Sepsis Assessment & Plan: 73-year-old female with sepsis, lactic acidosis, renal insufficiency, cellulitis, leukocytosis. Febrile, hemodynamically stable, exam as above Coordinated with radiology for urgent temporary even as catheter insertion. Placed today and will discuss with nephrology for dialysis Antibiotics as per infectious disease Trend labs IV fluid resuscitation Dense consolidation in the posterior right lower lobe, likely pneumonia Liquid stool in the proximal colon, could indicate diarrheal illness Trace free intraperitoneal fluid Slight hepatic atrophy and surface nodularity raising possibility of cirrhotic change Small lesser sac varices and splenomegaly raises possibility of portal hypertension Pericardial effusion, also evident previously abd wall cellulitis superficial and lumps likely prior injection sites and not infected. unlikely etiology of sepsis. We will follow with recommendations Thank you for allowing me to participate in patient care Kirk Em Oct 09, 2019 17:34
--- NOTE | 2019-10-09 19:10 | NUR ---
NURSE NOTES: Report given to ENRIQUE Van. Patient in stable condition.
--- NOTE | 2019-10-09 19:11 | NUR ---
HAND-OFF: Report given to ENRIQUE Van. Patient in stable condition.
--- NOTE | 2019-10-09 19:12 | NUR ---
NURSE NOTES: Received report from ENRIQUE Xie. Observed patient in bed, asleep, opens eyes spontaneously to verbal stimuli. On O2 2L via NC, patient saturating 99%. Right IJ Arik catheter intact and patent, 1 lumen currently running D5W with sodium bicarb @ 200mL/hr ok to use arik per order. GT intact and patent with feeding infusing at prescribed rate. No residual noted. Skin alterations noted. HOB elevated. Safety precautions in place; bed locked, alarmed, and in lowest position, side rails up x3, and call light left within reach. Will continue plan of care. Will continue to monitor patient.
--- NOTE | 2019-10-09 20:05 | NUR ---
NURSE NOTES: Patient provided with oral care. Patient tolerated care well. Pt remains resting in bed; bed in low position, safety wheels engaged, side rails up x3 and padded per protocol, call light within reach and bed alarm activated. Will continue to monitor.
--- NOTE | 2019-10-09 20:35 | NUR ---
NURSE NOTES: Dialysis nurse present at bedside to perform hemodialysis. Informed dialysis nurse order current to transfuse 1 unit pRBC with dialysis. Will obtain blood from blood bank. Will continue to monitor. Will carry out orders.
--- NOTE | 2019-10-09 20:48 | NUR ---
NURSE NOTES: Blood obtained from blood bank and confirmed with charge, John Ortiz RN Current VS as follows Temp 98.6, HR 100, BP 134/64 O2 Sat 99% RR 20 Pt remains resting in bed; bed in low position, safety wheels engaged, side rails up x3 and padded per protocol, call light within reach and bed alarm activated. Will carry out order. Will continue to monitor.
--- NOTE | 2019-10-09 21:03 | NUR ---
NURSE NOTES: Pt continues to receive blood transfusion with dialysis. 15 minute after start VS as follows Temp 98.4, HR 98, BP 140/67 O2 Sat 100% RR 22 Pt remains resting in bed; bed in low position, safety wheels engaged, side rails up x3 and padded per protocol, call light within reach and bed alarm activated. Will carry out order. Will continue to monitor.
[2019-10-09] MEDS: Levothyroxine 125mcg tab GT SCH (22:15)
--- NOTE | 2019-10-09 23:00 | NUR ---
NURSE NOTES: 1 unit of pRBC infused per order. Patient tolerated transfusion well. No adverse effects noted. Current VS as follows Temp 98.5, HR 101, BP 133/66 O2 Sat 99% RR 18 Patient provided with a bed bath and linen change. Optifoam and barrier protection cream applied to sacrum and optifoam applied to heels for protection, heels remain floating. Patient tolerated care well. Pt remains resting in bed; bed in low position, safety wheels engaged, side rails up x3 and padded per protocol, call light within reach and bed alarm activated. Will continue to monitor.
[2019-10-10] VITALS: BP 152/72
[2019-10-10] MEDS: Zosyn 2.25 gm in D5W 55ml IV SCH ×2 (01:28→09:10)
[2019-10-10] MEDS: Sodium Bicarbonate 100 ML in D5W 1000ml 1,000 ML IV SCH ×2 (03:00→05:09)
[2019-10-10 04:00] VITALS: BP 142/74
[2019-10-10 04:59] LABS: HEMATOCRIT 24.5 % (37.0-47.0); HEMOGLOBIN 8.3 G/DL (12.0-16.0); MEAN CORPUSCULAR VOLUME 87 FL (80-99); PLATELET COUNT 77 K/UL (150-450); RED BLOOD COUNT 2.81 M/UL (4.20-5.40); RED CELL DISTRIBUTION WIDTH 14.1 % (11.6-14.8); WHITE BLOOD COUNT 5.6 K/UL (4.8-10.8)
[2019-10-10 05:33] LABS: ALANINE AMINOTRANSFERASE 47 U/L (12-78); ALBUMIN 1.6 G/DL (3.4-5.0); ALBUMIN/GLOBULIN RATIO 0.4 (1.0-2.7); ALKALINE PHOSPHATASE 37 U/L (46-116); ANION GAP 0 mmol/L (5-15); ASPARTATE AMINO TRANSFERASE 65 U/L (15-37); BILIRUBIN,TOTAL 0.8 MG/DL (0.2-1.0); BLOOD UREA NITROGEN 36 mg/dL (7-18); CALCIUM 7.7 MG/DL (8.5-10.1); CARBON DIOXIDE 40 MMOL/L (21-32); CHLORIDE 102 MMOL/L (98-107); CREATININE 2.9 MG/DL (0.55-1.30); SODIUM 142 MMOL/L (136-145)
[2019-10-10 05:36] LABS: POTASSIUM 2.7 MMOL/L (3.5-5.1)
--- NOTE | 2019-10-10 05:36 | NUR ---
NURSE NOTES: Jean Marie from Lab called to notify of K level 2.7 Will update MD. Will continue to monitor.
--- NOTE | 2019-10-10 05:42 | NUR ---
NURSE NOTES: Paged for Dr Hendricks regarding lab results K 2.7 Hgb 8.3 Hct 24.5 after 1 unit of pRBC Platelets 77 Will await further orders. Will continue to monitor.
[2019-10-10] MEDS: Levothyroxine 125mcg tab GT SCH (05:48)
[2019-10-10] MEDS: HydrALAZINE 50mg tab GT SCH ×3 (05:48→22:00)
--- NOTE | 2019-10-10 05:51 | NUR ---
NURSE NOTES: Dr Hendricks responded with orders Give KCL 30 mEq gtube now Venous duplex; SCDs if negative. Placed both orders. Will endorse to place SCDs if negative. Will continue to monitor.
--- NOTE | 2019-10-10 06:31 | Progress Note ---
DATE: 10/10/2019 SUBJECTIVE: The patient has some abdominal pain. No vomiting. She may have fallen out of bed, but had no injury. She is status post hemodialysis yesterday. OBJECTIVE: VITAL SIGNS: Blood pressure 101/47, pulse 110, respiratory rate 28, and afebrile. LUNGS: Bilateral breath sounds. CARDIAC: Regular rhythm. Rapid rate. Normal S1, S2. No rubs. ABDOMEN: Soft. G-tube intact. EXTREMITIES: Trace edema. LABORATORY DATA: White count 7.3, hemoglobin 7.9. Lactic acid 2.9. Potassium 3, sodium 136, bicarb 39, BUN 57, creatinine 4.1. Albumin 1.7. IMPRESSION: 1. Acute on chronic renal failure. 2. Lactic acidosis. 3. Severe sepsis, likely line source. 4. Pericardial effusion. 5. Hypertensive heart disease. 6. Secondary sinus tachycardia. 7. Possible pancreatitis. PLAN: 1. Continue hemodialysis, ultrafiltration based on volume status. 2. Echocardiogram will be reviewed to assess status of pericardial effusion. 3. Hold parameters for antihypertensive. 4. Restart beta-boris in view of tachycardias. We will titrate cautiously. 5. Remains high risk, will require close monitoring and adjustment of therapy as clinical condition changes. Lance Rivas M.D. : MELVA JOB#: [id number] CC:
--- NOTE | 2019-10-10 07:12 | NUR ---
CASE MANAGEMENT:REVIEW 10/10/19 SI: SEPSIS. AC/CHR RENAL FAILURE ESRD ON HD 98.0 105 20 142/74 97% ON 2L/NC H/H-8.3/24.5 PLT-77 K-2.76 BUN+36 CR+2.9 IS: IV ZOSYN Q8HRS IV NAHCO3 LOPRESSOR GT Q12 PREVACID GT QAM HYDRALAZINE GT Q8HRS FLORINEF GT BID : STEP DOWN UNIT DCP; FROM CV TERRACE PLAN: TACHYCARDIC ~ RESTART BET TRICIA
--- NOTE | 2019-10-10 07:15 | NUR ---
HAND-OFF: Report given to ENRIQUE Xie. No signs of respiratory or cardiac distress noted.
--- NOTE | 2019-10-10 07:16 | NUR ---
NURSE NOTES: Received report from ENRIQUE Van. Observed patient in bed, asleep, opens eyes spontaneously to verbal stimuli. On O2 2L via NC; no acute respiratory distress noted at this time. GT on hold at this time per protocol for Synthroid administration. HOB elevated. No n/v noted. Right IJ HD catheter intact and patent with IV fluids infusing at prescribed rate. External catheter noted, draining well to suction. Safety precautions in place, bed locked, alarmed, and in lowest position, side rails up x3, and call light left within reach. Will continue visual checks and will continue plan of care.
--- NOTE | 2019-10-10 07:21 | Nephrology Progress Note ---
Assessment/Plan Status: stable Assessment/Plan: A/P 1) ESRD- hold Hd today - hyperkalemia, acidosis resolved - uremia resolved 2) Sepsis- Per Gen surgery and ID 3) Anemia- s/p blood tx 4) Hypokalemia- replace today Subjective Date patient seen: Oct 10, 2019 Time patient seen: 07:20 ROS Limited/Unobtainable: No Allergies: Coded Allergies: ERYTHROMYCIN BASE (Unverified Allergy, Intermediate, 07/14/19) Per patient not allergic to medications or food Subjective Patient had fall overnight Objective Last 24 Hour Vital Signs Date Time Temp Pulse Resp B/P (MAP) Pulse Ox O2 Delivery O2 Flow Rate FiO2 10/10/19 05:48 142/72 10/10/19 04:00 Nasal Cannula 2.0 10/10/19 04:00 98.0 105 20 142/74 (96) 97 10/10/19 03:46 99 10/10/19 01:50 104 142/70 10/10/19 00:00 98.2 104 20 152/72 (98) 99 10/10/19 00:00 Nasal Cannula 2.0 10/09/19 23:29 106 10/09/19 22:58 152/78 10/09/19 20:00 Nasal Cannula 2.0 10/09/19 20:00 98.6 100 20 134/64 (87) 98 10/09/19 19:25 102 10/09/19 16:00 99.4 105 20 127/52 (77) 97 10/09/19 16:00 Nasal Cannula 3.0 10/09/19 15:36 105 10/09/19 14:00 114/83 10/09/19 12:00 98.9 84 20 114/83 (93) 97 10/09/19 12:00 96 10/09/19 12:00 Nasal Cannula 3.0 10/09/19 08:00 Nasal Cannula 3.0 10/09/19 08:00 98.1 102 20 127/68 (87) 100 10/09/19 07:50 98.2 100 Nasal Cannula 3.0 10/09/19 07:41 95 Intake and Output 10/09/19 10/10/19 19:00 07:00 Intake Total 2605 ml 4105 ml Output Total 350 ml Balance 2255 ml 4105 ml Intake Free Water 300 ml 100 ml IV Total 1200 ml 3655 ml Tube Feeding 605 ml 350 ml Blood Product 500 ml Output Urine Total 350 ml # Voids 2 # Bowel Movements 3 Laboratory Tests 10/09/19 09:45: White Blood Count 7.2, Red Blood Count 2.63L, Hemoglobin 7.9L, Hematocrit 23.4L , Mean Corpuscular Volume 89, Mean Corpuscular Hemoglobin 29.9, Mean Corpuscular Hemoglobin Concent 33.7, Red Cell Distribution Width 13.1, Platelet Count 88L, Mean Platelet Volume 8.2, Neutrophils (%) (Auto) , Lymphocytes (%) ( Auto) , Monocytes (%) (Auto) , Eosinophils (%) (Auto) , Basophils (%) (Auto) , Differential Total Cells Counted 100, Neutrophils % (Manual) 76H, Lymphocytes % (Manual) 12L, Monocytes % (Manual) 7, Eosinophils % (Manual) 2, Basophils % ( Manual) 0, Band Neutrophils 3, Platelet Estimate DecreasedL, Platelet Morphology Normal, Red Blood Cell Morphology Normal, Erythrocyte Sedimentation Rate 78H, Prothrombin Time 10.6, Prothromb Time International Ratio 1.0, Activated Partial Thromboplast Time 32, Sodium Level 146H, Potassium Level 3.0L , Chloride Level 106, Carbon Dioxide Level 39H, Anion Gap 1L, Blood Urea Nitrogen 57H, Creatinine 4.1H, Estimat Glomerular Filtration Rate , Glucose Level 121H, Lactic Acid Level 4.40H, Calcium Level 7.3L, Total Bilirubin 0.6, Aspartate Amino Transf (AST/SGOT) 109H, Alanine Aminotransferase (ALT/SGPT) 61, Alkaline Phosphatase 32L, C-Reactive Protein, Quantitative 38.0H, Total Protein 5.4L, Albumin 1.7L, Globulin 3.7, Albumin/Globulin Ratio 0.5L, Amylase Level 49 , Lipase 401H 10/09/19 11:35: Lactic Acid Level 4.30H 10/09/19 17:50: Lactic Acid Level 3.90H 10/09/19 23:00: Lactic Acid Level 2.90H 10/10/19 04:25: White Blood Count 5.6, Red Blood Count 2.81L, Hemoglobin 8.3L, Hematocrit 24.5L , Mean Corpuscular Volume 87, Mean Corpuscular Hemoglobin 29.5, Mean Corpuscular Hemoglobin Concent 33.9, Red Cell Distribution Width 14.1, Platelet Count 77L, Mean Platelet Volume 8.8, Neutrophils (%) (Auto) , Lymphocytes (%) ( Auto) , Monocytes (%) (Auto) , Eosinophils (%) (Auto) , Basophils (%) (Auto) , Neutrophils % (Manual) [Pending], Lymphocytes % (Manual) [Pending], Platelet Estimate [Pending], Platelet Morphology [Pending], Sodium Level 142, Potassium Level 2.7*L, Chloride Level 102, Carbon Dioxide Level 40H, Anion Gap 0L, Blood Urea Nitrogen 36H, Creatinine 2.9H, Estimat Glomerular Filtration Rate , Glucose Level 138H, Lactic Acid Level 3.00H, Calcium Level 7.7L, Total Bilirubin 0.8, Aspartate Amino Transf (AST/SGOT) 65H, Alanine Aminotransferase ( ALT/SGPT) 47, Alkaline Phosphatase 37L, Total Protein 5.3L, Albumin 1.6L, Globulin 3.7, Albumin/Globulin Ratio 0.4L, Random Vancomycin Level 12.5 Height (Feet): 5 Height (Inches): 2.00 Weight (Pounds): 178 General Appearance: no apparent distress EENT: normal ENT inspection Neck: normal alignment, supple Cardiovascular: normal rate, regular rhythm Respiratory/Chest: rhonchi - bilaterally Abdomen: non tender, soft Edema: no edema noted Arm (L), no edema noted Arm (R), no edema noted Leg (L), no edema noted Leg (R), no edema noted Pedal (L), no edema noted Pedal (R), no edema noted Generalized Cody Hoyos MD Oct 10, 2019 07:21
--- NOTE | 2019-10-10 07:50 | General Progress Note ---
Assessment/Plan Problem List: (1) Sepsis ICD Codes: A41.9 - Sepsis, unspecified organism SNOMED: 81190459 (2) Lactic acid acidosis ICD Codes: E87.2 - Acidosis SNOMED: 68039982 (3) Anemia ICD Codes: D64.9 - Anemia, unspecified SNOMED: 608352375 (4) Alkalosis, metabolic ICD Codes: E87.3 - Alkalosis, metabolic SNOMED: 6315930 (5) Acidosis ICD Codes: E87.2 - Acidosis SNOMED: 13619832 (6) UTI (urinary tract infection) ICD Codes: N39.0 - Urinary tract infection, site not specified SNOMED: 76201269 (7) Acute renal failure (ARF) ICD Codes: N17.9 - Acute kidney failure, unspecified SNOMED: 50874700 Status: stable Assessment/Plan: iv abx follow up cultures wound care HD per renal monitor bp- may need to resume bp meds monitor for bleeding transfuse as needed guarded Subjective ROS Limited/Unobtainable: Yes Constitutional: Reports: malaise, weakness HEENT: Reports: no symptoms Cardiovascular: Reports: no symptoms Respiratory: Reports: no symptoms Gastrointestinal/Abdominal: Reports: abdominal pain Genitourinary: Reports: no symptoms Neurologic/Psychiatric: Reports: no symptoms Endocrine: Reports: no symptoms Hematologic/Lymphatic: Reports: anemia Allergies: Coded Allergies: ERYTHROMYCIN BASE (Unverified Allergy, Intermediate, 07/14/19) Per patient not allergic to medications or food All Systems: reviewed and negative except above Subjective tolerating HD. BP improving- trending up. still with abd pain. +blood cultures noted. on IV abx Objective Last 24 Hour Vital Signs Date Time Temp Pulse Resp B/P (MAP) Pulse Ox O2 Delivery O2 Flow Rate FiO2 10/10/19 05:48 142/72 10/10/19 04:00 Nasal Cannula 2.0 10/10/19 04:00 98.0 105 20 142/74 (96) 97 10/10/19 03:46 99 10/10/19 01:50 104 142/70 10/10/19 00:00 98.2 104 20 152/72 (98) 99 10/10/19 00:00 Nasal Cannula 2.0 10/09/19 23:29 106 10/09/19 22:58 152/78 10/09/19 20:00 Nasal Cannula 2.0 10/09/19 20:00 98.6 100 20 134/64 (87) 98 10/09/19 19:25 102 10/09/19 16:00 99.4 105 20 127/52 (77) 97 10/09/19 16:00 Nasal Cannula 3.0 10/09/19 15:36 105 10/09/19 14:00 114/83 10/09/19 12:00 98.9 84 20 114/83 (93) 97 10/09/19 12:00 96 10/09/19 12:00 Nasal Cannula 3.0 10/09/19 08:00 Nasal Cannula 3.0 10/09/19 08:00 98.1 102 20 127/68 (87) 100 10/09/19 07:50 98.2 100 Nasal Cannula 3.0 Intake and Output 10/09/19 10/10/19 19:00 07:00 Intake Total 2605 ml 4575 ml Output Total 350 ml 100 ml Balance 2255 ml 4475 ml Intake Free Water 300 ml 100 ml IV Total 1200 ml 4055 ml Tube Feeding 605 ml 420 ml Blood Product 500 ml Output Urine Total 350 ml 100 ml # Voids 2 3 # Bowel Movements 3 Laboratory Tests 10/09/19 09:45: White Blood Count 7.2, Red Blood Count 2.63L, Hemoglobin 7.9L, Hematocrit 23.4L , Mean Corpuscular Volume 89, Mean Corpuscular Hemoglobin 29.9, Mean Corpuscular Hemoglobin Concent 33.7, Red Cell Distribution Width 13.1, Platelet Count 88L, Mean Platelet Volume 8.2, Neutrophils (%) (Auto) , Lymphocytes (%) ( Auto) , Monocytes (%) (Auto) , Eosinophils (%) (Auto) , Basophils (%) (Auto) , Differential Total Cells Counted 100, Neutrophils % (Manual) 76H, Lymphocytes % (Manual) 12L, Monocytes % (Manual) 7, Eosinophils % (Manual) 2, Basophils % ( Manual) 0, Band Neutrophils 3, Platelet Estimate DecreasedL, Platelet Morphology Normal, Red Blood Cell Morphology Normal, Erythrocyte Sedimentation Rate 78H, Prothrombin Time 10.6, Prothromb Time International Ratio 1.0, Activated Partial Thromboplast Time 32, Sodium Level 146H, Potassium Level 3.0L , Chloride Level 106, Carbon Dioxide Level 39H, Anion Gap 1L, Blood Urea Nitrogen 57H, Creatinine 4.1H, Estimat Glomerular Filtration Rate , Glucose Level 121H, Lactic Acid Level 4.40H, Calcium Level 7.3L, Total Bilirubin 0.6, Aspartate Amino Transf (AST/SGOT) 109H, Alanine Aminotransferase (ALT/SGPT) 61, Alkaline Phosphatase 32L, C-Reactive Protein, Quantitative 38.0H, Total Protein 5.4L, Albumin 1.7L, Globulin 3.7, Albumin/Globulin Ratio 0.5L, Amylase Level 49 , Lipase 401H 10/09/19 11:35: Lactic Acid Level 4.30H 10/09/19 17:50: Lactic Acid Level 3.90H 10/09/19 23:00: Lactic Acid Level 2.90H 10/10/19 04:25: White Blood Count 5.6, Red Blood Count 2.81L, Hemoglobin 8.3L, Hematocrit 24.5L , Mean Corpuscular Volume 87, Mean Corpuscular Hemoglobin 29.5, Mean Corpuscular Hemoglobin Concent 33.9, Red Cell Distribution Width 14.1, Platelet Count 77L, Mean Platelet Volume 8.8, Neutrophils (%) (Auto) , Lymphocytes (%) ( Auto) , Monocytes (%) (Auto) , Eosinophils (%) (Auto) , Basophils (%) (Auto) , Neutrophils % (Manual) [Pending], Lymphocytes % (Manual) [Pending], Platelet Estimate [Pending], Platelet Morphology [Pending], Sodium Level 142, Potassium Level 2.7*L, Chloride Level 102, Carbon Dioxide Level 40H, Anion Gap 0L, Blood Urea Nitrogen 36H, Creatinine 2.9H, Estimat Glomerular Filtration Rate , Glucose Level 138H, Lactic Acid Level 3.00H, Calcium Level 7.7L, Total Bilirubin 0.8, Aspartate Amino Transf (AST/SGOT) 65H, Alanine Aminotransferase ( ALT/SGPT) 47, Alkaline Phosphatase 37L, Total Protein 5.3L, Albumin 1.6L, Globulin 3.7, Albumin/Globulin Ratio 0.4L, Random Vancomycin Level 12.5 Height (Feet): 5 Height (Inches): 2.00 Weight (Pounds): 178 General Appearance: WD/WN, alert Neck: supple Cardiovascular: normal rate, regular rhythm Respiratory/Chest: chest wall non-tender, lungs clear, normal breath sounds Abdomen: normal bowel sounds, soft, no organomegaly, tender Edema: no edema noted Arm (L), no edema noted Arm (R), no edema noted Leg (L), no edema noted Leg (R), no edema noted Pedal (L), no edema noted Pedal (R), no edema noted Generalized Chema Hendricks MD Oct 10, 2019 07:50
[2019-10-10 08:00] VITALS: BP 127/65
[2019-10-10] MEDS ORDERED: Sodium Chloride for KCL Premix X 3hrs IV SCH (08:00)
[2019-10-10] MEDS ORDERED: Vancomycin 1gm/D5W 275ml IVPB ONE ×2 (09:00)
[2019-10-10] MEDS: Acetaminophen 650mg/20.3ml GT PRN (09:34)
--- NOTE | 2019-10-10 10:22 | Infectious Diseases Prog Note ---
Assessment/Plan Assessment/Plan antibiotics : vancomycin iv, zosyn A 1. e.eoli sepsis 2. leucocytosis improving 3. renal failure on HD 4. thrombocytopenia 5. pneumonia 6. Parkinsons disease 7. dementia P 1. d/c iv vancomycin, zosyn 2. start meropenem 3. will follow up cultures Subjective ROS Limited/Unobtainable: Yes Allergies: Coded Allergies: ERYTHROMYCIN BASE (Unverified Allergy, Intermediate, 07/14/19) Per patient not allergic to medications or food Objective Vital Signs Last 24 Hour Vital Signs Date Time Temp Pulse Resp B/P (MAP) Pulse Ox O2 Delivery O2 Flow Rate FiO2 10/10/19 09:09 105 142/72 10/10/19 08:00 98.2 95 20 127/65 (85) 98 10/10/19 08:00 Nasal Cannula 2.0 10/10/19 07:41 91 10/10/19 05:48 142/72 10/10/19 04:00 Nasal Cannula 2.0 10/10/19 04:00 98.0 105 20 142/74 (96) 97 10/10/19 03:46 99 10/10/19 01:50 104 142/70 10/10/19 00:00 98.2 104 20 152/72 (98) 99 10/10/19 00:00 Nasal Cannula 2.0 10/09/19 23:29 106 10/09/19 22:58 152/78 10/09/19 20:00 Nasal Cannula 2.0 10/09/19 20:00 98.6 100 20 134/64 (87) 98 10/09/19 19:25 102 10/09/19 16:00 99.4 105 20 127/52 (77) 97 10/09/19 16:00 Nasal Cannula 3.0 10/09/19 15:36 105 10/09/19 14:00 114/83 10/09/19 12:00 98.9 84 20 114/83 (93) 97 10/09/19 12:00 96 10/09/19 12:00 Nasal Cannula 3.0 Height (Feet): 5 Height (Inches): 2.00 Weight (Pounds): 178 Respiratory/Chest: lungs clear Cardiovascular: normal rate, regular rhythm, no gallop/murmur, other - GT Abdomen: soft, non tender Extremities: no edema, other - right IJ catheter Microbiology Date/Time Source Procedure Growth Status 10/07/19 12:20 Blood Blood Culture - Final Escherichia Coli - Esbl Complete 10/07/19 12:05 Blood Blood Culture - Final Escherichia Coli - Esbl Complete 10/07/19 15:30 Nasal Nares MRSA Culture - Final NO METHICILLIN RESISTANT STAPH AUREUS... Complete 10/07/19 15:30 Rectum VRE Culture - Final NO VANCOMYCIN RESISTANT ENTEROCOCCUS ... Complete 10/07/19 15:30 Rectum - Final NO CARBAPENEM-RESISTANT ENTEROBACTERI... Complete Laboratory Tests Test 10/09/19 11:35 10/09/19 17:50 10/09/19 23:00 10/10/19 04:25 Lactic Acid Level 4.30 mmol/L (0.66-2.22) H 3.90 mmol/L (0.4-2.0) H 2.90 mmol/L (0.4-2.0) H 3.00 mmol/L (0.4-2.0) H White Blood Count 5.6 K/UL (4.8-10.8) Red Blood Count 2.81 M/UL (4.20-5.40) L Hemoglobin 8.3 G/DL (12.0-16.0) L Hematocrit 24.5 % (37.0-47.0) L Mean Corpuscular Volume 87 FL (80-99) Mean Corpuscular Hemoglobin 29.5 PG (27.0-31.0) Mean Corpuscular Hemoglobin Concent 33.9 G/DL (32.0-36.0) Red Cell Distribution Width 14.1 % (11.6-14.8) Platelet Count 77 K/UL (150-450) L Mean Platelet Volume 8.8 FL (6.5-10.1) Neutrophils (%) (Auto) % (45.0-75.0) Lymphocytes (%) (Auto) % (20.0-45.0) Monocytes (%) (Auto) % (1.0-10.0) Eosinophils (%) (Auto) % (0.0-3.0) Basophils (%) (Auto) % (0.0-2.0) Differential Total Cells Counted 100 Neutrophils % (Manual) 73 % (45-75) Lymphocytes % (Manual) 15 % (20-45) L Monocytes % (Manual) 9 % (1-10) Eosinophils % (Manual) 3 % (0-3) Basophils % (Manual) 0 % (0-2) Band Neutrophils 0 % (0-8) Platelet Estimate Decreased L Platelet Morphology Normal Anisocytosis 1+ Sodium Level 142 MMOL/L (136-145) Potassium Level 2.7 MMOL/L (3.5-5.1) *L Chloride Level 102 MMOL/L (98-107) Carbon Dioxide Level 40 MMOL/L (21-32) H Anion Gap 0 mmol/L (5-15) L Blood Urea Nitrogen 36 mg/dL (7-18) H Creatinine 2.9 MG/DL (0.55-1.30) H Estimat Glomerular Filtration Rate mL/min (>60) Glucose Level 138 MG/DL (74-106) H Calcium Level 7.7 MG/DL (8.5-10.1) L Total Bilirubin 0.8 MG/DL (0.2-1.0) Aspartate Amino Transf (AST/SGOT) 65 U/L (15-37) H Alanine Aminotransferase (ALT/SGPT) 47 U/L (12-78) Alkaline Phosphatase 37 U/L (46-116) L Total Protein 5.3 G/DL (6.4-8.2) L Albumin 1.6 G/DL (3.4-5.0) L Globulin 3.7 g/dL Albumin/Globulin Ratio 0.4 (1.0-2.7) L Random Vancomycin Level 12.5 ug/mL Current Medications Medications (Trade) Dose Ordered Sig/Jonathan Route PRN Reason Start Time Stop Time Status Last Admin Dose Admin Acetaminophen (Tylenol) 650 mg Q4H PRN GT Mild Pain/Temp > 100.5 10/07/19 20:30 11/06/19 20:29 10/10/19 09:34 Fludrocortisone Acetate (Florinef) 0.1 mg BID GT 10/07/19 20:00 11/06/19 19:59 10/10/19 09:08 Hydralazine HCl (Apresoline) 100 mg Q8HR GT 10/07/19 22:00 11/06/19 21:59 10/10/19 05:48 Lansoprazole (Prevacid) 30 mg DAILY GT 10/08/19 09:00 11/07/19 08:59 10/10/19 09:08 Levothyroxine Sodium (Synthroid) 125 mcg ACBREAKFAST GT 10/08/19 06:30 11/07/19 06:29 10/10/19 05:48 Metoprolol Tartrate (Lopressor) 25 mg Q12HR ORAL 10/10/19 01:45 11/09/19 01:44 10/10/19 09:09 Morphine Sulfate (Morphine Sulfate) 0.5 mg Q4H PRN IVP For Pain 10/07/19 21:30 10/14/19 21:29 10/07/19 23:53 Piperacillin Sod/ Tazobactam Sod 2.25 gm/Dextrose 55 ml @ 110 mls/hr Q8H IV 10/09/19 09:00 10/16/19 08:59 10/10/19 09:10 Potassium Chloride 100 ml @ 100 mls/hr Q1H IVPB 10/10/19 08:00 10/10/19 10:59 10/10/19 09:33 Sodium Chloride 300 ml @ 100 mls/hr Q3H IV 10/10/19 08:00 10/10/19 10:59 10/10/19 08:26 Vancomycin HCl (Vanco rx to dose) 1 ea DAILY PRN MISC Per rx protocol 10/07/19 18:45 11/06/19 18:44 Vancomycin HCl 1 gm/Dextrose 275 ml @ 183.708 mls/hr ONCE ONCE IVPB 10/10/19 09:00 10/10/19 10:29 Jessica Reyes MD Oct 10, 2019 10:22
[2019-10-10] MEDS: Meropenem 500 MG in NS 55 ML IVPB SCH (11:40)
--- NOTE | 2019-10-10 11:50 | NUR ---
RD ASSESSMENT & RECOMMENDATIONS SEE CARE ACTIVITY FOR COMPLETE ASSESSMENT DAILY ESTIMATED NEEDS: Needs based on CKD IV, Wound 57.7kg abw 25-30 kcals/kg 8199-6521 total kcals (Without HD:0.6-1) (With HD: 1.25-1.8) g protein/kg (Without HD: 35-58) (With HD: 72-104) g total protein Fluid per MD mL/kg . total fluid mLs NUTRITION DIAGNOSIS: 1) Altered nutrition related lab values r/t JJ on CKD 4 as evidenced by elev creat (6.8 -> 2.9 improved), elev BUN (119->36 improved), elev K (5.3-> 2.7 now low). elev Na (158 -> wnl), s/p placement of Broderick cath, HD x1. 2) Swallowing difficulty r/t dysphagia as evidenced by GT dep. CURRENT TF:NEPRO @35ml/hr x22 hrs ENTERAL NUTRITION RECOMMENDATIONS: WITH CONTINUED HD: Nepro @ 42ml/hr x 22 hrs to provide 924ml, 1663kcal, 75g prot, 672ml free water - W/ continued HD, rec to increase goal rate to 42ml/hr x 22 hrs (hold 1 hr before and after Synthroid med) - HOB over 30 degrees/ water flush per MD WITHOUT HD, maintain current TF of Nepro @ 35ml/hr x 22 hrs to provide 770ml, 1386 kcal, 62g pro, 560ml free H2O -> will meet 96% est kcal and 107% est pro needs ADDITIONAL RECOMMENDATIONS: 1) Calibrated bedscale wt for accurate CBW - bedscale on 10/08 reads a negative number 2) Monitor renal fxn, monitor for continuation of HD -> s/p Broderick cath, s/p HD x1. now w/ improved renal fxn -> Rec to increase TF goal rate w/ continued HD 3) Monitor lytes, check phos and mag level 4) Wound healing: add Nephrovite x 1 + Kael 1pkt BID
[2019-10-10 12:00] VITALS: BP 132/66
[2019-10-10] MEDS: Morphine Sulfate 2mg/ml Inj(IV/IM USE ONLY) IVP PRN (12:54)
--- NOTE | 2019-10-10 13:54 | NUR ---
NURSE NOTES: Received report ENRIQUE Xie ,patient asleep,received feeding off from 10 AM due to stomach pain,pain medication was given,now asleep,resume G tube feeding nepro 35 ,flushed no problem,head 30 degrees,aspiration precaution
--- NOTE | 2019-10-10 14:00 | NUR ---
HAND-OFF: Report given to ENRIQUE Yeager.
--- NOTE | 2019-10-10 14:30 | NUR ---
NURSE NOTES Pt received from ENRIQUE Yeager in stable condition without cardiopulmonary distress. Pt is asleep in bed on 2L O2 via NC. Skin alterations ntoede. Pt has a [facility] cath. GT noted running Nepro at 35cc/hr. Bed in lowest position, alarm on, side rails up x3, call light within reach, SCDs on bilat lower extremities, yellow socks on and yellow gown worn by patient, fall risk sign on door and pt wearing yellow wrist band, room near nurse's station. Will continue to monitor. Addendum: 10/10/19 at 1457 by Dolly Ansari RN NURSE NOTES: Late Entry: Norma noted draining yellow urine
--- NOTE | 2019-10-10 14:30 | NUR ---
NURSE NOTES: Report given to ENRIQUE Alberto,patient asleep,on tube feeding,head elevated
--- NOTE | 2019-10-10 15:24 | Surgery Progress Note ---
Surgery Progress Note Subjective Additional Comments no acute events labs noted exam stable Objective Last 24 Hour Vital Signs Date Time Temp Pulse Resp B/P (MAP) Pulse Ox O2 Delivery O2 Flow Rate FiO2 10/10/19 14:54 132/66 10/10/19 12:00 Nasal Cannula 2.0 10/10/19 12:00 98.7 105 20 132/66 (88) 100 10/10/19 09:09 105 142/72 10/10/19 08:00 98.2 95 20 127/65 (85) 98 10/10/19 08:00 Nasal Cannula 2.0 10/10/19 07:41 91 10/10/19 05:48 142/72 10/10/19 04:00 Nasal Cannula 2.0 10/10/19 04:00 98.0 105 20 142/74 (96) 97 10/10/19 03:46 99 10/10/19 01:50 104 142/70 10/10/19 00:00 98.2 104 20 152/72 (98) 99 10/10/19 00:00 Nasal Cannula 2.0 10/09/19 23:29 106 10/09/19 22:58 152/78 10/09/19 20:00 Nasal Cannula 2.0 10/09/19 20:00 98.6 100 20 134/64 (87) 98 10/09/19 19:25 102 10/09/19 16:00 99.4 105 20 127/52 (77) 97 10/09/19 16:00 Nasal Cannula 3.0 10/09/19 15:36 105 I&O Intake and Output 10/09/19 10/10/19 19:00 07:00 Intake Total 2605 ml 4575 ml Output Total 350 ml 100 ml Balance 2255 ml 4475 ml Intake Free Water 300 ml 100 ml IV Total 1200 ml 4055 ml Tube Feeding 605 ml 420 ml Blood Product 500 ml Output Urine Total 350 ml 100 ml # Voids 2 3 # Bowel Movements 3 Dressing: other Wound: other Drains: other Cardiovascular: RSR Respiratory: decreased breath sounds Abdomen: soft, present bowel sounds, non-distended Extremities: no cyanosis Laboratory Tests Test 10/09/19 17:50 10/09/19 23:00 10/10/19 04:25 10/10/19 10:55 Lactic Acid Level 3.90 mmol/L (0.4-2.0) H 2.90 mmol/L (0.4-2.0) H 3.00 mmol/L (0.4-2.0) H 2.80 mmol/L (0.4-2.0) H White Blood Count 5.6 K/UL (4.8-10.8) Red Blood Count 2.81 M/UL (4.20-5.40) L Hemoglobin 8.3 G/DL (12.0-16.0) L Hematocrit 24.5 % (37.0-47.0) L Mean Corpuscular Volume 87 FL (80-99) Mean Corpuscular Hemoglobin 29.5 PG (27.0-31.0) Mean Corpuscular Hemoglobin Concent 33.9 G/DL (32.0-36.0) Red Cell Distribution Width 14.1 % (11.6-14.8) Platelet Count 77 K/UL (150-450) L Mean Platelet Volume 8.8 FL (6.5-10.1) Neutrophils (%) (Auto) % (45.0-75.0) Lymphocytes (%) (Auto) % (20.0-45.0) Monocytes (%) (Auto) % (1.0-10.0) Eosinophils (%) (Auto) % (0.0-3.0) Basophils (%) (Auto) % (0.0-2.0) Differential Total Cells Counted 100 Neutrophils % (Manual) 73 % (45-75) Lymphocytes % (Manual) 15 % (20-45) L Monocytes % (Manual) 9 % (1-10) Eosinophils % (Manual) 3 % (0-3) Basophils % (Manual) 0 % (0-2) Band Neutrophils 0 % (0-8) Platelet Estimate Decreased L Platelet Morphology Normal Anisocytosis 1+ Sodium Level 142 MMOL/L (136-145) Potassium Level 2.7 MMOL/L (3.5-5.1) *L Chloride Level 102 MMOL/L (98-107) Carbon Dioxide Level 40 MMOL/L (21-32) H Anion Gap 0 mmol/L (5-15) L Blood Urea Nitrogen 36 mg/dL (7-18) H Creatinine 2.9 MG/DL (0.55-1.30) H Estimat Glomerular Filtration Rate mL/min (>60) Glucose Level 138 MG/DL (74-106) H Calcium Level 7.7 MG/DL (8.5-10.1) L Total Bilirubin 0.8 MG/DL (0.2-1.0) Aspartate Amino Transf (AST/SGOT) 65 U/L (15-37) H Alanine Aminotransferase (ALT/SGPT) 47 U/L (12-78) Alkaline Phosphatase 37 U/L (46-116) L Total Protein 5.3 G/DL (6.4-8.2) L Albumin 1.6 G/DL (3.4-5.0) L Globulin 3.7 g/dL Albumin/Globulin Ratio 0.4 (1.0-2.7) L Random Vancomycin Level 12.5 ug/mL Plan Problems: (1) Lactic acid acidosis Assessment & Plan: Patient noted to have leukocytosis, fevers, abdominal wall cellulitis, lactic acidosis. Abnormal labs. Etiology and work-up continuing currently with microbiology pending and on IV antibiotics Local care being provided. Imaging noted Pt presented on admission with partially opened DTPI Sacrum.Base of wound extends from sacrum to R and L buttocks and is maroon with #3 small openings , each with slough at mid sacral area. Pt grimaced when affected area minimally palpated. Non-blanching erythema noted to R and L ischial regions. Moisture Intertrigo with surrounding erythema and denuded skin noted to R and L breasts. Mild odor noted each skin folds of breasts.Small amt sanguineous exudate noted from L breast. Mons pubis,labia majora, and medial aspects of both upper thighs erythematous and denuded. R ad L heels are firm and blanchable. Tx.Plan: [place] Liquid Skin Repair to R and L breasts(x1 application) applied to folds of each breasts. Apply Moisture Barrier paste to perineum with each incontinence care. Apply Moisture Barrier Paste to Sacrum.Cover with Optifoam drsgs. Change every 3 days and prn. APM/SIM Mattress overlay. Reposition at least every 2 hours or as tolerated. Off-load heels with pillow. (2) Sepsis Assessment & Plan: 73-year-old female with sepsis, lactic acidosis, renal insufficiency, cellulitis, leukocytosis. Febrile, hemodynamically stable, exam as above Coordinated with radiology for urgent temporary even as catheter insertion. Placed today and will discuss with nephrology for dialysis Antibiotics as per infectious disease Trend labs IV fluid resuscitation Dense consolidation in the posterior right lower lobe, likely pneumonia Liquid stool in the proximal colon, could indicate diarrheal illness Trace free intraperitoneal fluid Slight hepatic atrophy and surface nodularity raising possibility of cirrhotic change Small lesser sac varices and splenomegaly raises possibility of portal hypertension Pericardial effusion, also evident previously abd wall cellulitis superficial and lumps likely prior injection sites and not infected. unlikely etiology of sepsis. We will follow with recommendations Thank you for allowing me to participate in patient care Kirk Em Oct 10, 2019 15:24
[2019-10-10 16:00] VITALS: BP 141/61
--- NOTE | 2019-10-10 19:30 | NUR ---
NURSE NOTES: Received report from ENRIQUE Quijano. Pt is sleeping on the bed and no sign of acute distress noted. On O2 2L nasal cannula and no sign of respiratory distress noted. Pt has Rt. IJ Broderick cath and dressing is clean and dry. On G-tube feeding with Nepro @35cc/hr and no residual noted. On Tele monitor with SR. Dressing is clean and dry on wounds area. On P-200 mattress for wound management. Changed position. Placed fall precaution. Will continue to care plan.
--- NOTE | 2019-10-10 19:33 | NUR ---
HAND-OFF: Report given to ENRIQUE Fung. Pt in stable condition.
[2019-10-10] MEDS: Dyna-Hex 2% Top Sol 2oz TOPIC SCH (19:57)
[2019-10-10 20:00] VITALS: BP 141/64
--- NOTE | 2019-10-10 21:45 | Progress Note ---
DATE: 10/10/2019 CARDIOLOGY PROGRESS NOTE SUBJECTIVE: The patient was seen.daughter at bedside. Condition discussed in detail with daughter. So, daughter is tearful and understands how sick her mother is. She does not want to lose her, but understands that this may happen. The patient continues to have abdominal discomfort. Her blood pressure parameters are better. She is on antimicrobials for positive blood cultures. Her central line site was replaced. OBJECTIVE: VITAL SIGNS: Blood pressure 142/72, pulse 105, respirations 20, and afebrile. HEENT: Conjunctivae pink. Oropharynx clear. NECK: Supple. LUNGS: Diminished breath sounds. CARDIAC: Regular rhythm. Rapid rate. Normal S1, S2 with no new murmur. No rub. ABDOMEN: Distended, but soft. G-tube site intact. EXTREMITIES: No edema. Dialysis catheter on the right chest wall is without any signs of bleeding. LABORATORY DATA: Blood cultures are positive for ESBL E. coli. White count 5.6 and hemoglobin 8.3. Sodium 142 and potassium 2.7. Bicarb 40, BUN 36, and creatinine 2.9. Lactic acid is 3. Albumin 1.6. IMPRESSION: 1. Gram-negative sepsis and bacteremia. 2. Hypokalemia. 3. Acute on chronic renal failure, now on hemodialysis. 4. Pericardial effusion. 5. Hypertensive heart disease. 6. Acute and chronic diastolic congestive heart failure. 7. Remains in serious condition with guarded prognosis. PLAN: 1. Hemodialysis. 2. Ultrafiltration for volume management. 3. Transfuse for hemoglobin less than 8 gram. 4. Nutrition as tolerated by feeding tube. 5. Pain control. 6. We will follow up echocardiogram regarding status of pericardial effusion. 7. DVT prophylaxis. 8. Skin care. 9. Surveillance blood cultures to follow. Lance Rivas M.D. DR: GRACIELA JOB#: [id number] CC:
[2019-10-11] VITALS: BP 152/75
[2019-10-11 04:00] VITALS: BP 144/68
[2019-10-11 05:53] LABS: HEMATOCRIT 26.6 % (37.0-47.0); HEMOGLOBIN 8.9 G/DL (12.0-16.0); MEAN CORPUSCULAR VOLUME 88 FL (80-99); PLATELET COUNT 91 K/UL (150-450); RED BLOOD COUNT 3.03 M/UL (4.20-5.40); RED CELL DISTRIBUTION WIDTH 13.7 % (11.6-14.8); WHITE BLOOD COUNT 4.9 K/UL (4.8-10.8)
[2019-10-11] MEDS: HydrALAZINE 50mg tab GT SCH ×3 (06:00→21:38)
[2019-10-11] MEDS: Levothyroxine 125mcg tab GT SCH (06:03)
[2019-10-11] MEDS: Acetaminophen 650mg/20.3ml GT PRN (06:03)
[2019-10-11 06:18] LABS: ALANINE AMINOTRANSFERASE 43 U/L (12-78); ALBUMIN 1.7 G/DL (3.4-5.0); ALBUMIN/GLOBULIN RATIO 0.4 (1.0-2.7); ALKALINE PHOSPHATASE 42 U/L (46-116); ANION GAP 7 mmol/L (5-15); ASPARTATE AMINO TRANSFERASE 56 U/L (15-37); BILIRUBIN,TOTAL 0.4 MG/DL (0.2-1.0); BLOOD UREA NITROGEN 34 mg/dL (7-18); CALCIUM 7.8 MG/DL (8.5-10.1); CARBON DIOXIDE 34 MMOL/L (21-32); CHLORIDE 102 MMOL/L (98-107); CREATININE 3.4 MG/DL (0.55-1.30); PHOSPHORUS 2.2 MG/DL (2.5-4.9); POTASSIUM 2.9 MMOL/L (3.5-5.1); SODIUM 142 MMOL/L (136-145)
--- NOTE | 2019-10-11 07:18 | NUR ---
NURSE NOTES: Noted K: 2.9, M.[address] Hendricks and new order received.
--- NOTE | 2019-10-11 07:33 | NUR ---
HAND-OFF: Report given to ENRIQUE Drew. Pt is resting on the bed and on Hemodialysis.
[2019-10-11 08:00] VITALS: BP 139/68
[2019-10-11] MEDS ORDERED: NS 275ml ONE ×2 (10:07→10:20)
[2019-10-11] MEDS ORDERED: Tubing IV Secondary IV ONE ×2 (10:07→10:20)
[2019-10-11] MEDS ORDERED: NS 500ML ONE (10:20)
--- NOTE | 2019-10-11 10:33 | Infectious Diseases Prog Note ---
Assessment/Plan Assessment/Plan antibiotics : meropenem A 1. e.eoli sepsis 2. leucocytosis improving 3. renal failure on HD 4. thrombocytopenia 5. pneumonia 6. Parkinsons disease 7. dementia P 1. continue meropenem 5 more days 2. will follow up cultures Subjective Constitutional: Denies: fever, chills Respiratory: Reports: productive cough; Denies: shortness of breath Gastrointestinal/Abdominal: Reports: diarrhea; Denies: nausea, vomiting Musculoskeletal: Denies: pain Allergies: Coded Allergies: ERYTHROMYCIN BASE (Unverified Allergy, Intermediate, 07/14/19) Per patient not allergic to medications or food Objective Vital Signs Last 24 Hour Vital Signs Date Time Temp Pulse Resp B/P (MAP) Pulse Ox O2 Delivery O2 Flow Rate FiO2 10/11/19 08:45 94 135/66 10/11/19 08:00 92 10/11/19 06:00 135/66 10/11/19 04:00 Nasal Cannula 2.0 10/11/19 04:00 94 10/11/19 04:00 98.4 93 20 144/68 (93) 99 10/11/19 00:00 99.0 94 20 152/75 (100) 99 10/11/19 00:00 93 10/11/19 00:00 Nasal Cannula 2.0 10/10/19 22:00 140/66 10/10/19 20:49 94 141/64 10/10/19 20:00 Nasal Cannula 2.0 10/10/19 20:00 94 10/10/19 20:00 98.4 95 20 141/64 (89) 99 10/10/19 16:00 91 10/10/19 16:00 Nasal Cannula 2.0 10/10/19 16:00 97.7 91 20 141/61 (87) 99 10/10/19 14:54 132/66 10/10/19 12:00 Nasal Cannula 2.0 10/10/19 12:00 98.7 105 20 132/66 (88) 100 10/10/19 11:44 89 Height (Feet): 5 Height (Inches): 2.00 Weight (Pounds): 177 Respiratory/Chest: rhonchi - bilaterally Cardiovascular: normal rate, regular rhythm, no gallop/murmur Abdomen: soft, non tender Extremities: no edema Laboratory Tests Test 10/10/19 10:55 10/10/19 16:50 10/10/19 23:23 10/11/19 03:50 Lactic Acid Level 2.80 mmol/L (0.4-2.0) H 2.70 mmol/L (0.4-2.0) H 2.40 mmol/L (0.4-2.0) H White Blood Count 4.9 K/UL (4.8-10.8) Red Blood Count 3.03 M/UL (4.20-5.40) L Hemoglobin 8.9 G/DL (12.0-16.0) L Hematocrit 26.6 % (37.0-47.0) L Mean Corpuscular Volume 88 FL (80-99) Mean Corpuscular Hemoglobin 29.5 PG (27.0-31.0) Mean Corpuscular Hemoglobin Concent 33.6 G/DL (32.0-36.0) Red Cell Distribution Width 13.7 % (11.6-14.8) Platelet Count 91 K/UL (150-450) L Mean Platelet Volume 8.1 FL (6.5-10.1) Neutrophils (%) (Auto) % (45.0-75.0) Lymphocytes (%) (Auto) % (20.0-45.0) Monocytes (%) (Auto) % (1.0-10.0) Eosinophils (%) (Auto) % (0.0-3.0) Basophils (%) (Auto) % (0.0-2.0) Differential Total Cells Counted 100 Neutrophils % (Manual) 65 % (45-75) Lymphocytes % (Manual) 14 % (20-45) L Monocytes % (Manual) 16 % (1-10) H Eosinophils % (Manual) 5 % (0-3) H Basophils % (Manual) 0 % (0-2) Band Neutrophils 0 % (0-8) Platelet Estimate Decreased L Platelet Morphology Normal Hypochromasia 1+ Anisocytosis 1+ Spherocytes 1+ Sodium Level 142 MMOL/L (136-145) Potassium Level 2.9 MMOL/L (3.5-5.1) L Chloride Level 102 MMOL/L (98-107) Carbon Dioxide Level 34 MMOL/L (21-32) H Anion Gap 7 mmol/L (5-15) Blood Urea Nitrogen 34 mg/dL (7-18) H Creatinine 3.4 MG/DL (0.55-1.30) H Estimat Glomerular Filtration Rate mL/min (>60) Glucose Level 97 MG/DL (74-106) Calcium Level 7.8 MG/DL (8.5-10.1) L Phosphorus Level 2.2 MG/DL (2.5-4.9) L Magnesium Level 1.5 MG/DL (1.8-2.4) L Total Bilirubin 0.4 MG/DL (0.2-1.0) Aspartate Amino Transf (AST/SGOT) 56 U/L (15-37) H Alanine Aminotransferase (ALT/SGPT) 43 U/L (12-78) Alkaline Phosphatase 42 U/L (46-116) L Pro-B-Type Natriuretic Peptide 3769 pg/mL (0-125) H Total Protein 5.6 G/DL (6.4-8.2) L Albumin 1.7 G/DL (3.4-5.0) L Globulin 3.9 g/dL Albumin/Globulin Ratio 0.4 (1.0-2.7) L Current Medications Medications (Trade) Dose Ordered Sig/Jonathan Route PRN Reason Start Time Stop Time Status Last Admin Dose Admin Acetaminophen (Tylenol) 650 mg Q4H PRN GT Mild Pain/Temp > 100.5 10/07/19 20:30 11/06/19 20:29 10/11/19 06:03 Chlorhexidine Gluconate (Meredith-Hex 2%) 1 applic DAILY@1999 TOPIC 10/10/19 20:00 11/09/19 19:59 10/10/19 19:57 Fludrocortisone Acetate (Florinef) 0.1 mg BID GT 10/07/19 20:00 11/06/19 19:59 10/11/19 08:45 Hydralazine HCl (Apresoline) 100 mg Q8HR GT 10/07/19 22:00 11/06/19 21:59 10/10/19 14:54 Lansoprazole (Prevacid) 30 mg DAILY GT 10/08/19 09:00 11/07/19 08:59 10/11/19 08:45 Levothyroxine Sodium (Synthroid) 125 mcg ACBREAKFAST GT 10/08/19 06:30 11/07/19 06:29 10/11/19 06:03 Meropenem 500 mg/ Sodium Chloride 55 ml @ 110 mls/hr Q24H IVPB 10/10/19 11:00 10/15/19 10:59 10/10/19 11:40 Metoprolol Tartrate (Lopressor) 25 mg Q12HR ORAL 10/10/19 01:45 11/09/19 01:44 10/11/19 08:45 Morphine Sulfate (Morphine Sulfate) 0.5 mg Q4H PRN IVP For Pain 10/07/19 21:30 10/14/19 21:29 10/10/19 12:54 Jessica Reyes MD Oct 11, 2019 10:33
[2019-10-11] MEDS: Meropenem 500 MG in NS 55 ML IVPB SCH (11:00)
[2019-10-11 12:00] VITALS: BP 152/80
--- NOTE | 2019-10-11 12:41 | Surgery Progress Note ---
Surgery Progress Note Subjective Symptoms: improved Objective Last 24 Hour Vital Signs Date Time Temp Pulse Resp B/P (MAP) Pulse Ox O2 Delivery O2 Flow Rate FiO2 10/11/19 08:45 94 135/66 10/11/19 08:00 92 10/11/19 06:00 135/66 10/11/19 04:00 Nasal Cannula 2.0 10/11/19 04:00 94 10/11/19 04:00 98.4 93 20 144/68 (93) 99 10/11/19 00:00 99.0 94 20 152/75 (100) 99 10/11/19 00:00 93 10/11/19 00:00 Nasal Cannula 2.0 10/10/19 22:00 140/66 10/10/19 20:49 94 141/64 10/10/19 20:00 Nasal Cannula 2.0 10/10/19 20:00 94 10/10/19 20:00 98.4 95 20 141/64 (89) 99 10/10/19 16:00 91 10/10/19 16:00 Nasal Cannula 2.0 10/10/19 16:00 97.7 91 20 141/61 (87) 99 10/10/19 14:54 132/66 I&O Intake and Output 10/10/19 10/11/19 19:00 07:00 Intake Total 1380.000 ml 350 ml Output Total 650 ml 400 ml Balance 730.000 ml -50 ml Intake Free Water 80 ml IV Total 985.000 ml Tube Feeding 315 ml 350 ml Output Urine Total 650 ml 400 ml # Voids 1 # Bowel Movements 5 3 Dressing: saturated Wound: clean Cardiovascular: RSR Respiratory: clear, decreased breath sounds Abdomen: soft, present bowel sounds, non-distended Extremities: no cyanosis, other Laboratory Tests Test 10/10/19 16:50 10/10/19 23:23 10/11/19 03:50 Lactic Acid Level 2.70 mmol/L (0.4-2.0) H 2.40 mmol/L (0.4-2.0) H White Blood Count 4.9 K/UL (4.8-10.8) Red Blood Count 3.03 M/UL (4.20-5.40) L Hemoglobin 8.9 G/DL (12.0-16.0) L Hematocrit 26.6 % (37.0-47.0) L Mean Corpuscular Volume 88 FL (80-99) Mean Corpuscular Hemoglobin 29.5 PG (27.0-31.0) Mean Corpuscular Hemoglobin Concent 33.6 G/DL (32.0-36.0) Red Cell Distribution Width 13.7 % (11.6-14.8) Platelet Count 91 K/UL (150-450) L Mean Platelet Volume 8.1 FL (6.5-10.1) Neutrophils (%) (Auto) % (45.0-75.0) Lymphocytes (%) (Auto) % (20.0-45.0) Monocytes (%) (Auto) % (1.0-10.0) Eosinophils (%) (Auto) % (0.0-3.0) Basophils (%) (Auto) % (0.0-2.0) Differential Total Cells Counted 100 Neutrophils % (Manual) 65 % (45-75) Lymphocytes % (Manual) 14 % (20-45) L Monocytes % (Manual) 16 % (1-10) H Eosinophils % (Manual) 5 % (0-3) H Basophils % (Manual) 0 % (0-2) Band Neutrophils 0 % (0-8) Platelet Estimate Decreased L Platelet Morphology Normal Hypochromasia 1+ Anisocytosis 1+ Spherocytes 1+ Sodium Level 142 MMOL/L (136-145) Potassium Level 2.9 MMOL/L (3.5-5.1) L Chloride Level 102 MMOL/L (98-107) Carbon Dioxide Level 34 MMOL/L (21-32) H Anion Gap 7 mmol/L (5-15) Blood Urea Nitrogen 34 mg/dL (7-18) H Creatinine 3.4 MG/DL (0.55-1.30) H Estimat Glomerular Filtration Rate mL/min (>60) Glucose Level 97 MG/DL (74-106) Calcium Level 7.8 MG/DL (8.5-10.1) L Phosphorus Level 2.2 MG/DL (2.5-4.9) L Magnesium Level 1.5 MG/DL (1.8-2.4) L Total Bilirubin 0.4 MG/DL (0.2-1.0) Aspartate Amino Transf (AST/SGOT) 56 U/L (15-37) H Alanine Aminotransferase (ALT/SGPT) 43 U/L (12-78) Alkaline Phosphatase 42 U/L (46-116) L Pro-B-Type Natriuretic Peptide 3769 pg/mL (0-125) H Total Protein 5.6 G/DL (6.4-8.2) L Albumin 1.7 G/DL (3.4-5.0) L Globulin 3.9 g/dL Albumin/Globulin Ratio 0.4 (1.0-2.7) L Plan Problems: (1) Lactic acid acidosis Assessment & Plan: Patient noted to have leukocytosis, fevers, abdominal wall cellulitis, lactic acidosis. Abnormal labs. Etiology and work-up continuing currently with microbiology pending and on IV antibiotics Local care being provided. Imaging noted Pt presented on admission with partially opened DTPI Sacrum.Base of wound extends from sacrum to R and L buttocks and is maroon with #3 small openings , each with slough at mid sacral area. Pt grimaced when affected area minimally palpated. Non-blanching erythema noted to R and L ischial regions. Moisture Intertrigo with surrounding erythema and denuded skin noted to R and L breasts. Mild odor noted each skin folds of breasts.Small amt sanguineous exudate noted from L breast. Mons pubis,labia majora, and medial aspects of both upper thighs erythematous and denuded. R ad L heels are firm and blanchable. Tx.Plan: Fallon Liquid Skin Repair to R and L breasts(x1 application) applied to folds of each breasts. Apply Moisture Barrier paste to perineum with each incontinence care. Apply Moisture Barrier Paste to Sacrum.Cover with Optifoam drsgs. Change every 3 days and prn. APM/SIM Mattress overlay. Reposition at least every 2 hours or as tolerated. Off-load heels with pillow. (2) Sepsis Assessment & Plan: 73-year-old female with sepsis, lactic acidosis, renal insufficiency, cellulitis, leukocytosis. Febrile, hemodynamically stable, exam as above Coordinated with radiology for urgent temporary even as catheter insertion. Placed today and will discuss with nephrology for dialysis Antibiotics as per infectious disease Trend labs IV fluid resuscitation Dense consolidation in the posterior right lower lobe, likely pneumonia Liquid stool in the proximal colon, could indicate diarrheal illness Trace free intraperitoneal fluid Slight hepatic atrophy and surface nodularity raising possibility of cirrhotic change Small lesser sac varices and splenomegaly raises possibility of portal hypertension Pericardial effusion, also evident previously abd wall cellulitis superficial and lumps likely prior injection sites and not infected. unlikely etiology of sepsis. We will follow with recommendations Thank you for allowing me to participate in patient care Kirk Em Oct 11, 2019 12:41
--- NOTE | 2019-10-11 13:06 | General Progress Note ---
Assessment/Plan Problem List: (1) Sepsis ICD Codes: A41.9 - Sepsis, unspecified organism SNOMED: 59668228 (2) Lactic acid acidosis ICD Codes: E87.2 - Acidosis SNOMED: 87747624 (3) Anemia ICD Codes: D64.9 - Anemia, unspecified SNOMED: 598084980 (4) Alkalosis, metabolic ICD Codes: E87.3 - Alkalosis, metabolic SNOMED: 9765850 (5) Acidosis ICD Codes: E87.2 - Acidosis SNOMED: 83569876 (6) UTI (urinary tract infection) ICD Codes: N39.0 - Urinary tract infection, site not specified SNOMED: 25655906 (7) Acute renal failure (ARF) ICD Codes: N17.9 - Acute kidney failure, unspecified SNOMED: 60959820 Status: stable Assessment/Plan: iv abx follow up cultures wound care HD per renal monitor bp- may need to resume bp meds monitor for bleeding transfuse as needed guarded Subjective ROS Limited/Unobtainable: No Constitutional: Reports: malaise, weakness HEENT: Reports: no symptoms Cardiovascular: Reports: no symptoms Respiratory: Reports: no symptoms Gastrointestinal/Abdominal: Reports: abdominal pain Genitourinary: Reports: no symptoms Neurologic/Psychiatric: Reports: pre-existing deficit Endocrine: Reports: no symptoms Hematologic/Lymphatic: Reports: anemia Allergies: Coded Allergies: ERYTHROMYCIN BASE (Unverified Allergy, Intermediate, 07/14/19) Per patient not allergic to medications or food All Systems: reviewed and negative except above Subjective tolerating HD. BP improving- trending up. still with abd pain. +blood cultures noted. on IV abx Objective Last 24 Hour Vital Signs Date Time Temp Pulse Resp B/P (MAP) Pulse Ox O2 Delivery O2 Flow Rate FiO2 10/11/19 08:45 94 135/66 10/11/19 08:00 92 10/11/19 06:00 135/66 10/11/19 04:00 Nasal Cannula 2.0 10/11/19 04:00 94 10/11/19 04:00 98.4 93 20 144/68 (93) 99 10/11/19 00:00 99.0 94 20 152/75 (100) 99 10/11/19 00:00 93 10/11/19 00:00 Nasal Cannula 2.0 10/10/19 22:00 140/66 10/10/19 20:49 94 141/64 10/10/19 20:00 Nasal Cannula 2.0 10/10/19 20:00 94 10/10/19 20:00 98.4 95 20 141/64 (89) 99 10/10/19 16:00 91 10/10/19 16:00 Nasal Cannula 2.0 10/10/19 16:00 97.7 91 20 141/61 (87) 99 10/10/19 14:54 132/66 Intake and Output 10/10/19 10/11/19 19:00 07:00 Intake Total 1380.000 ml 350 ml Output Total 650 ml 400 ml Balance 730.000 ml -50 ml Intake Free Water 80 ml IV Total 985.000 ml Tube Feeding 315 ml 350 ml Output Urine Total 650 ml 400 ml # Voids 1 # Bowel Movements 5 3 Laboratory Tests 10/10/19 16:50: Lactic Acid Level 2.70H 10/10/19 23:23: Lactic Acid Level 2.40H 10/11/19 03:50: White Blood Count 4.9, Red Blood Count 3.03L, Hemoglobin 8.9L, Hematocrit 26.6L , Mean Corpuscular Volume 88, Mean Corpuscular Hemoglobin 29.5, Mean Corpuscular Hemoglobin Concent 33.6, Red Cell Distribution Width 13.7, Platelet Count 91L, Mean Platelet Volume 8.1, Neutrophils (%) (Auto) , Lymphocytes (%) ( Auto) , Monocytes (%) (Auto) , Eosinophils (%) (Auto) , Basophils (%) (Auto) , Differential Total Cells Counted 100, Neutrophils % (Manual) 65, Lymphocytes % ( Manual) 14L, Monocytes % (Manual) 16H, Eosinophils % (Manual) 5H, Basophils % ( Manual) 0, Band Neutrophils 0, Platelet Estimate DecreasedL, Platelet Morphology Normal, Hypochromasia 1+, Anisocytosis 1+, Spherocytes 1+, Sodium Level 142, Potassium Level 2.9L, Chloride Level 102, Carbon Dioxide Level 34H, Anion Gap 7, Blood Urea Nitrogen 34H, Creatinine 3.4H, Estimat Glomerular Filtration Rate , Glucose Level 97, Calcium Level 7.8L, Phosphorus Level 2.2L, Magnesium Level 1.5L, Total Bilirubin 0.4, Aspartate Amino Transf (AST/SGOT) 56H , Alanine Aminotransferase (ALT/SGPT) 43, Alkaline Phosphatase 42L, Pro-B-Type Natriuretic Peptide 3769H, Total Protein 5.6L, Albumin 1.7L, Globulin 3.9, Albumin/Globulin Ratio 0.4L Height (Feet): 5 Height (Inches): 2.00 Weight (Pounds): 177 Objective General Appearance: WD/WN, alert Neck: supple Cardiovascular: normal rate, regular rhythm Respiratory/Chest: chest wall non-tender, lungs clear, normal breath sounds Abdomen: normal bowel sounds, soft, no organomegaly, tender Edema: no edema noted Arm (L), no edema noted Arm (R), no edema noted Leg (L), no edema noted Leg (R), no edema noted Pedal (L), no edema noted Pedal (R), no edema noted Generalized Chema Hendricks MD Oct 11, 2019 13:06
--- NOTE | 2019-10-11 13:09 | Nephrology Progress Note ---
Assessment/Plan Status: stable Assessment/Plan: A/P 1) ESRD- hold HD today - monitor daily 2) Sepsis- Per Gen surgery and ID 3) Anemia- s/p blood tx 4) Hypokalemia- replace today again Subjective Date patient seen: Oct 11, 2019 Time patient seen: 13:06 ROS Limited/Unobtainable: No Allergies: Coded Allergies: ERYTHROMYCIN BASE (Unverified Allergy, Intermediate, 07/14/19) Per patient not allergic to medications or food Subjective Patient awake and conversant Objective Last 24 Hour Vital Signs Date Time Temp Pulse Resp B/P (MAP) Pulse Ox O2 Delivery O2 Flow Rate FiO2 10/11/19 08:45 94 135/66 10/11/19 08:00 92 10/11/19 06:00 135/66 10/11/19 04:00 Nasal Cannula 2.0 10/11/19 04:00 94 10/11/19 04:00 98.4 93 20 144/68 (93) 99 10/11/19 00:00 99.0 94 20 152/75 (100) 99 10/11/19 00:00 93 10/11/19 00:00 Nasal Cannula 2.0 10/10/19 22:00 140/66 10/10/19 20:49 94 141/64 10/10/19 20:00 Nasal Cannula 2.0 10/10/19 20:00 94 10/10/19 20:00 98.4 95 20 141/64 (89) 99 10/10/19 16:00 91 10/10/19 16:00 Nasal Cannula 2.0 10/10/19 16:00 97.7 91 20 141/61 (87) 99 10/10/19 14:54 132/66 Intake and Output 10/10/19 10/11/19 19:00 07:00 Intake Total 1380.000 ml 350 ml Output Total 650 ml 400 ml Balance 730.000 ml -50 ml Intake Free Water 80 ml IV Total 985.000 ml Tube Feeding 315 ml 350 ml Output Urine Total 650 ml 400 ml # Voids 1 # Bowel Movements 5 3 Laboratory Tests 10/10/19 16:50: Lactic Acid Level 2.70H 10/10/19 23:23: Lactic Acid Level 2.40H 10/11/19 03:50: White Blood Count 4.9, Red Blood Count 3.03L, Hemoglobin 8.9L, Hematocrit 26.6L , Mean Corpuscular Volume 88, Mean Corpuscular Hemoglobin 29.5, Mean Corpuscular Hemoglobin Concent 33.6, Red Cell Distribution Width 13.7, Platelet Count 91L, Mean Platelet Volume 8.1, Neutrophils (%) (Auto) , Lymphocytes (%) ( Auto) , Monocytes (%) (Auto) , Eosinophils (%) (Auto) , Basophils (%) (Auto) , Differential Total Cells Counted 100, Neutrophils % (Manual) 65, Lymphocytes % ( Manual) 14L, Monocytes % (Manual) 16H, Eosinophils % (Manual) 5H, Basophils % ( Manual) 0, Band Neutrophils 0, Platelet Estimate DecreasedL, Platelet Morphology Normal, Hypochromasia 1+, Anisocytosis 1+, Spherocytes 1+, Sodium Level 142, Potassium Level 2.9L, Chloride Level 102, Carbon Dioxide Level 34H, Anion Gap 7, Blood Urea Nitrogen 34H, Creatinine 3.4H, Estimat Glomerular Filtration Rate , Glucose Level 97, Calcium Level 7.8L, Phosphorus Level 2.2L, Magnesium Level 1.5L, Total Bilirubin 0.4, Aspartate Amino Transf (AST/SGOT) 56H , Alanine Aminotransferase (ALT/SGPT) 43, Alkaline Phosphatase 42L, Pro-B-Type Natriuretic Peptide 3769H, Total Protein 5.6L, Albumin 1.7L, Globulin 3.9, Albumin/Globulin Ratio 0.4L Height (Feet): 5 Height (Inches): 2.00 Weight (Pounds): 177 General Appearance: no apparent distress, alert EENT: normal ENT inspection Neck: normal alignment, supple, normal inspection Cardiovascular: normal rate, regular rhythm Respiratory/Chest: lungs clear, normal breath sounds Abdomen: non tender, soft Edema: no edema noted Arm (L), no edema noted Arm (R), no edema noted Leg (L), no edema noted Leg (R), no edema noted Pedal (L), no edema noted Pedal (R), no edema noted Generalized Cody Hoyos MD Oct 11, 2019 13:09
[2019-10-11 16:00] VITALS: BP 155/73
--- NOTE | 2019-10-11 19:30 | NUR ---
NURSE NOTES: Received report from Dan. Rodolfo RN. Pt is in bed, asleep, no signs or symptoms of pain or distress noted. Right IJ line is intact, patent, and asymptomatic, running 5ml TKO. Pt is clean and dry. Pt is SR. GT running nephro 1.8 running at 35ml. No residuals noted at this time. GT site is clean and dry, patent, intact and asymptomatic.
[2019-10-11 20:00] VITALS: BP 151/86
[2019-10-11] MEDS: Dyna-Hex 2% Top Sol 2oz TOPIC SCH (21:36)
--- NOTE | 2019-10-11 22:00 | Progress Note ---
DATE: 10/11/2019 CARDIOLOGY PROGRESS NOTE SUBJECTIVE: The patient is tolerating hemodialysis today. Blood pressure control has improved overall. The patient still has abdominal pain. The patient is on IV antimicrobials because of positive blood cultures. PICC line was removed. OBJECTIVE: VITAL SIGNS: Blood pressure 134/68, heart rate 93, respiratory rate 20, and afebrile. T-max 99. LUNGS: Diminished breath sounds. CARDIAC: Regular rhythm and rate. Normal S1 and S2. No rub. ABDOMEN: Soft. G-tube intact. EXTREMITIES: Trace edema. LABORATORY DATA: White count 4.9, hemoglobin 8.9, and platelets 91,000. Sodium 142, potassium 3.9, BUN 34, creatinine 3.4, and magnesium 1.5. Pro-natriuretic peptide 3700. IMPRESSION: 1. Hypomagnesemia. 2. Hypokalemia. 3. CKD 5, now on hemodialysis. 4. Pericardial effusion has diminished. It is of no clinical consequence presently. 5. Acute on chronic diastolic congestive heart failure. 6. Hypertensive heart disease. 7. Coag-negative Staph bacteremia. PLAN: 1. Hemodialysis with ultrafiltration. 2. Antimicrobials. 3. Respiratory hygiene. 4. Nutrition by feeding tube. 5. We will replace electrolytes. 6. Adjust dialysis bath. Delmar Toscano JOB#: [id number] CC:
[2019-10-12] VITALS: BP 159/71
[2019-10-12 04:00] VITALS: BP 150/84
[2019-10-12 05:02] LABS: ANION GAP 7 mmol/L (5-15); BLOOD UREA NITROGEN 36 mg/dL (7-18); CALCIUM 8.6 MG/DL (8.5-10.1); CARBON DIOXIDE 34 MMOL/L (21-32); CHLORIDE 106 MMOL/L (98-107); CREATININE 3.2 MG/DL (0.55-1.30); POTASSIUM 3.2 MMOL/L (3.5-5.1); SODIUM 147 MMOL/L (136-145)
[2019-10-12] MEDS: Levothyroxine 125mcg tab GT SCH (06:50)
[2019-10-12] MEDS: HydrALAZINE 50mg tab GT SCH ×3 (06:50→22:23)
--- NOTE | 2019-10-12 07:21 | NUR ---
HAND-OFF: Report given to Rajendra Reynolds RN
--- NOTE | 2019-10-12 07:37 | NUR ---
NURSE NOTES: Pt asleep, breathing easily on room air, awoke to gentle shaking, denies SOB and denies pain at this time. Viral signs stable with SR @ 96 on monitor. IV access right IJ with NS running at TKO. Other lumen wrapped for HD use. G-tube feeding Nepro on hold from Synthroid admin, 0 ml residual, 100 free water flush and feeding resumed. SCD in place and running. Low air loss mattress installed on bed and running. Bed left in low position, side rails up x 3 and call light left neat pt's hand.
[2019-10-12 08:00] VITALS: BP 146/74
--- NOTE | 2019-10-12 10:20 | Infectious Diseases Prog Note ---
Assessment/Plan Assessment/Plan IMPRESSION: 1. E, coli sepsis 2. pneumonia in right lower lobe. 3. Acute renal failure. 4. Chronic kidney disease. 5. Hyperkalemia. 6. Hypernatremia. 7. Hypoxemia. 8. Anemia. 9. Thrombocytopenia. 10. Hypothyroidism. 11. Recent MRSA sepsis. 12. Parkinson disease. 13. Dementia. RECOMMENDATION: Continue with Meropenem X 4 days Subjective ROS Limited/Unobtainable: Yes Constitutional: Denies: fever Neurologic: Reports: other - more alert Allergies: Coded Allergies: ERYTHROMYCIN BASE (Unverified Allergy, Intermediate, 07/14/19) Per patient not allergic to medications or food Objective Vital Signs Last 24 Hour Vital Signs Date Time Temp Pulse Resp B/P (MAP) Pulse Ox O2 Delivery O2 Flow Rate FiO2 10/12/19 09:46 95 146/74 10/12/19 08:00 95 10/12/19 08:00 97.9 95 19 146/74 (98) 98 10/12/19 07:20 Nasal Cannula 2.0 10/12/19 06:50 150/84 10/12/19 04:00 Nasal Cannula 2.0 10/12/19 04:00 98.9 96 20 150/84 (106) 98 10/12/19 03:50 93 10/12/19 00:00 Nasal Cannula 2.0 10/12/19 00:00 99.3 94 20 159/71 (100) 98 10/11/19 23:42 93 10/11/19 21:38 151/86 10/11/19 21:37 101 151/86 10/11/19 20:06 95 10/11/19 20:00 Nasal Cannula 2.0 10/11/19 20:00 98.6 95 20 151/86 (107) 99 10/11/19 16:00 89 10/11/19 16:00 98.5 88 20 155/73 (100) 99 10/11/19 15:59 Nasal Cannula 2.0 10/11/19 13:34 135/66 10/11/19 12:00 Nasal Cannula 2.0 10/11/19 12:00 98.1 84 18 152/80 (104) 99 10/11/19 12:00 90 Height (Feet): 5 Height (Inches): 2.00 Weight (Pounds): 184 General Appearance: no acute distress HEENT: mucous membranes moist Respiratory/Chest: lungs clear Cardiovascular: normal rate, other - RIJ Broderick Abdomen: soft, non tender, other - GT feeding Neurologic/Psychiatric: alert, responsive Microbiology Date/Time Source Procedure Growth Status 10/11/19 02:30 Stool Clostridium difficile Toxin Assay - Final Complete Laboratory Tests Test 10/12/19 03:15 Sodium Level 147 MMOL/L (136-145) H Potassium Level 3.2 MMOL/L (3.5-5.1) L Chloride Level 106 MMOL/L (98-107) Carbon Dioxide Level 34 MMOL/L (21-32) H Anion Gap 7 mmol/L (5-15) Blood Urea Nitrogen 36 mg/dL (7-18) H Creatinine 3.2 MG/DL (0.55-1.30) H Estimat Glomerular Filtration Rate mL/min (>60) Glucose Level 108 MG/DL (74-106) H Calcium Level 8.6 MG/DL (8.5-10.1) Current Medications Medications (Trade) Dose Ordered Sig/Jonathan Route PRN Reason Start Time Stop Time Status Last Admin Dose Admin Acetaminophen (Tylenol) 650 mg Q4H PRN GT Mild Pain/Temp > 100.5 10/07/19 20:30 11/06/19 20:29 10/11/19 06:03 Chlorhexidine Gluconate (Meredith-Hex 2%) 1 applic DAILY@2000 TOPIC 10/10/19 20:00 11/09/19 19:59 10/11/19 21:36 Fludrocortisone Acetate (Florinef) 0.1 mg BID GT 10/07/19 20:00 11/06/19 19:59 10/12/19 09:46 Hydralazine HCl (Apresoline) 100 mg Q8HR GT 10/07/19 22:00 11/06/19 21:59 10/12/19 06:50 Lansoprazole (Prevacid) 30 mg DAILY GT 10/08/19 09:00 11/07/19 08:59 10/12/19 09:45 Levothyroxine Sodium (Synthroid) 125 mcg ACBREAKFAST GT 10/08/19 06:30 11/07/19 06:29 10/12/19 06:50 Meropenem 500 mg/ Sodium Chloride 55 ml @ 110 mls/hr Q24H IVPB 11/22/19 11:00 10/15/19 10:59 10/11/19 11:00 Metoprolol Tartrate (Lopressor) 25 mg Q12HR ORAL 10/10/19 01:45 11/09/19 01:44 10/12/19 09:46 Morphine Sulfate (Morphine Sulfate) 0.5 mg Q4H PRN IVP For Pain 10/07/19 21:30 10/14/19 21:29 10/10/19 12:54 Ruperto Freedman MD Oct 12, 2019 10:20
--- NOTE | 2019-10-12 11:12 | General Progress Note ---
Assessment/Plan Problem List: (1) Sepsis ICD Codes: A41.9 - Sepsis, unspecified organism SNOMED: 45919734 (2) Lactic acid acidosis ICD Codes: E87.2 - Acidosis SNOMED: 84341311 (3) Anemia ICD Codes: D64.9 - Anemia, unspecified SNOMED: 566725966 (4) Alkalosis, metabolic ICD Codes: E87.3 - Alkalosis, metabolic SNOMED: 0862135 (5) Acidosis ICD Codes: E87.2 - Acidosis SNOMED: 52034023 (6) UTI (urinary tract infection) ICD Codes: N39.0 - Urinary tract infection, site not specified SNOMED: 31980188 (7) Acute renal failure (ARF) ICD Codes: N17.9 - Acute kidney failure, unspecified SNOMED: 63035643 Status: stable Assessment/Plan: iv abx follow up cultures wound care HD per renal monitor bp- may need to resume bp meds monitor for bleeding transfuse as needed guarded Subjective ROS Limited/Unobtainable: No Constitutional: Reports: malaise, weakness HEENT: Reports: no symptoms Cardiovascular: Reports: no symptoms Respiratory: Reports: no symptoms Gastrointestinal/Abdominal: Reports: no symptoms Genitourinary: Reports: no symptoms Neurologic/Psychiatric: Reports: no symptoms Endocrine: Reports: no symptoms Hematologic/Lymphatic: Reports: no symptoms Allergies: Coded Allergies: ERYTHROMYCIN BASE (Unverified Allergy, Intermediate, 07/14/19) Per patient not allergic to medications or food All Systems: reviewed and negative except above Subjective tolerating HD. BP improving- trending up. decreased abd pain. +blood cultures noted. on IV abx Objective Last 24 Hour Vital Signs Date Time Temp Pulse Resp B/P (MAP) Pulse Ox O2 Delivery O2 Flow Rate FiO2 10/12/19 09:46 95 146/74 10/12/19 08:00 95 10/12/19 08:00 97.9 95 19 146/74 (98) 98 10/12/19 07:20 Nasal Cannula 2.0 10/12/19 06:50 150/84 10/12/19 04:00 Nasal Cannula 2.0 10/12/19 04:00 98.9 96 20 150/84 (106) 98 10/12/19 03:50 93 10/12/19 00:00 Nasal Cannula 2.0 10/12/19 00:00 99.3 94 20 159/71 (100) 98 10/11/19 23:42 93 10/11/19 21:38 151/86 10/11/19 21:37 101 151/86 10/11/19 20:06 95 10/11/19 20:00 Nasal Cannula 2.0 10/11/19 20:00 98.6 95 20 151/86 (107) 99 10/11/19 16:00 89 10/11/19 16:00 98.5 88 20 155/73 (100) 99 10/11/19 15:59 Nasal Cannula 2.0 10/11/19 13:34 135/66 10/11/19 12:00 Nasal Cannula 2.0 10/11/19 12:00 98.1 84 18 152/80 (104) 99 10/11/19 12:00 90 Intake and Output 10/11/19 10/12/19 18:59 06:59 Intake Total 720 ml 420 ml Output Total 800 ml Balance -80 ml 420 ml Intake Free Water 300 ml Tube Feeding 420 ml 420 ml Output Urine Total 500 ml Stool Total 300 ml # Voids 2 # Bowel Movements 4 Laboratory Tests 10/12/19 03:15: Sodium Level 147H, Potassium Level 3.2L, Chloride Level 106, Carbon Dioxide Level 34H, Anion Gap 7, Blood Urea Nitrogen 36H, Creatinine 3.2H, Estimat Glomerular Filtration Rate , Glucose Level 108H, Calcium Level 8.6 Height (Feet): 5 Height (Inches): 2.00 Weight (Pounds): 184 Objective General Appearance: WD/WN, alert Neck: supple Cardiovascular: normal rate, regular rhythm Respiratory/Chest: chest wall non-tender, lungs clear, normal breath sounds Abdomen: normal bowel sounds, soft, no organomegaly, tender Edema: no edema noted Arm (L), no edema noted Arm (R), no edema noted Leg (L), no edema noted Leg (R), no edema noted Pedal (L), no edema noted Pedal (R), no edema noted Generalized Chema Hendricks MD Oct 12, 2019 11:12
[2019-10-12] MEDS: Meropenem 500 MG in NS 55 ML IVPB SCH (11:24)
--- NOTE | 2019-10-12 11:57 | Surgery Progress Note ---
Surgery Progress Note Subjective Additional Comments comfortable labs noted no acute events Objective Last 24 Hour Vital Signs Date Time Temp Pulse Resp B/P (MAP) Pulse Ox O2 Delivery O2 Flow Rate FiO2 10/12/19 09:46 95 146/74 10/12/19 08:00 95 10/12/19 08:00 97.9 95 19 146/74 (98) 98 10/12/19 07:20 Nasal Cannula 2.0 10/12/19 06:50 150/84 10/12/19 04:00 Nasal Cannula 2.0 10/12/19 04:00 98.9 96 20 150/84 (106) 98 10/12/19 03:50 93 10/12/19 00:00 Nasal Cannula 2.0 10/12/19 00:00 99.3 94 20 159/71 (100) 98 10/11/19 23:42 93 10/11/19 21:38 151/86 10/11/19 21:37 101 151/86 10/11/19 20:06 95 10/11/19 20:00 Nasal Cannula 2.0 10/11/19 20:00 98.6 95 20 151/86 (107) 99 10/11/19 16:00 89 10/11/19 16:00 98.5 88 20 155/73 (100) 99 10/11/19 15:59 Nasal Cannula 2.0 10/11/19 13:34 135/66 10/11/19 12:00 Nasal Cannula 2.0 10/11/19 12:00 98.1 84 18 152/80 (104) 99 10/11/19 12:00 90 I&O Intake and Output 10/11/19 10/12/19 18:59 06:59 Intake Total 720 ml 420 ml Output Total 800 ml Balance -80 ml 420 ml Intake Free Water 300 ml Tube Feeding 420 ml 420 ml Output Urine Total 500 ml Stool Total 300 ml # Voids 2 # Bowel Movements 4 Dressing: saturated Wound: other Drains: other Cardiovascular: RSR Respiratory: decreased breath sounds Abdomen: soft, present bowel sounds Extremities: no cyanosis Laboratory Tests Test 10/12/19 03:15 Sodium Level 147 MMOL/L (136-145) H Potassium Level 3.2 MMOL/L (3.5-5.1) L Chloride Level 106 MMOL/L (98-107) Carbon Dioxide Level 34 MMOL/L (21-32) H Anion Gap 7 mmol/L (5-15) Blood Urea Nitrogen 36 mg/dL (7-18) H Creatinine 3.2 MG/DL (0.55-1.30) H Estimat Glomerular Filtration Rate mL/min (>60) Glucose Level 108 MG/DL (74-106) H Calcium Level 8.6 MG/DL (8.5-10.1) Plan Problems: (1) Lactic acid acidosis Assessment & Plan: Patient noted to have leukocytosis, fevers, abdominal wall cellulitis, lactic acidosis. Abnormal labs. Etiology and work-up continuing currently with microbiology pending and on IV antibiotics Local care being provided. Imaging noted Pt presented on admission with partially opened DTPI Sacrum.Base of wound extends from sacrum to R and L buttocks and is maroon with #3 small openings , each with slough at mid sacral area. Pt grimaced when affected area minimally palpated. Non-blanching erythema noted to R and L ischial regions. Moisture Intertrigo with surrounding erythema and denuded skin noted to R and L breasts. Mild odor noted each skin folds of breasts.Small amt sanguineous exudate noted from L breast. Mons pubis,labia majora, and medial aspects of both upper thighs erythematous and denuded. R ad L heels are firm and blanchable. Tx.Plan: [place] Liquid Skin Repair to R and L breasts(x1 application) applied to folds of each breasts. Apply Moisture Barrier paste to perineum with each incontinence care. Apply Moisture Barrier Paste to Sacrum.Cover with Optifoam drsgs. Change every 3 days and prn. APM/SIM Mattress overlay. Reposition at least every 2 hours or as tolerated. Off-load heels with pillow. (2) Sepsis Assessment & Plan: 73-year-old female with sepsis, lactic acidosis, renal insufficiency, cellulitis, leukocytosis. Febrile, hemodynamically stable, exam as above Coordinated with radiology for urgent temporary even as catheter insertion. Placed today and will discuss with nephrology for dialysis Antibiotics as per infectious disease Trend labs IV fluid resuscitation Dense consolidation in the posterior right lower lobe, likely pneumonia Liquid stool in the proximal colon, could indicate diarrheal illness Trace free intraperitoneal fluid Slight hepatic atrophy and surface nodularity raising possibility of cirrhotic change Small lesser sac varices and splenomegaly raises possibility of portal hypertension Pericardial effusion, also evident previously abd wall cellulitis superficial and lumps likely prior injection sites and not infected. unlikely etiology of sepsis. We will follow with recommendations Thank you for allowing me to participate in patient care Kirk Em Oct 12, 2019 11:57
[2019-10-12 12:00] VITALS: BP 152/78
--- NOTE | 2019-10-12 12:46 | Nephrology Progress Note ---
Assessment/Plan Status: stable Assessment/Plan: A/P 1) ESRD- hold HD today again - monitor daily 2) Sepsis- E.Coli/PNA - Abx per ID 3) Anemia- s/p blood tx 4) Hypokalemia- replace today again and monitor 5) HTN- re add Noravsc Subjective Date patient seen: Oct 12, 2019 Time patient seen: 12:38 ROS Limited/Unobtainable: No Allergies: Coded Allergies: ERYTHROMYCIN BASE (Unverified Allergy, Intermediate, 07/14/19) Per patient not allergic to medications or food Subjective Patient feeling better. No overt distress Objective Last 24 Hour Vital Signs Date Time Temp Pulse Resp B/P (MAP) Pulse Ox O2 Delivery O2 Flow Rate FiO2 10/12/19 12:00 Nasal Cannula 2.0 10/12/19 09:46 95 146/74 10/12/19 08:00 95 10/12/19 08:00 97.9 95 19 146/74 (98) 98 10/12/19 07:20 Nasal Cannula 2.0 10/12/19 06:50 150/84 10/12/19 04:00 Nasal Cannula 2.0 10/12/19 04:00 98.9 96 20 150/84 (106) 98 10/12/19 03:50 93 10/12/19 00:00 Nasal Cannula 2.0 10/12/19 00:00 99.3 94 20 159/71 (100) 98 10/11/19 23:42 93 10/11/19 21:38 151/86 10/11/19 21:37 101 151/86 10/11/19 20:06 95 10/11/19 20:00 Nasal Cannula 2.0 10/11/19 20:00 98.6 95 20 151/86 (107) 99 10/11/19 16:00 89 10/11/19 16:00 98.5 88 20 155/73 (100) 99 10/11/19 15:59 Nasal Cannula 2.0 10/11/19 13:34 135/66 Intake and Output 10/11/19 10/12/19 18:59 06:59 Intake Total 720 ml 420 ml Output Total 800 ml Balance -80 ml 420 ml Intake Free Water 300 ml Tube Feeding 420 ml 420 ml Output Urine Total 500 ml Stool Total 300 ml # Voids 2 # Bowel Movements 4 Laboratory Tests 10/12/19 03:15: Sodium Level 147H, Potassium Level 3.2L, Chloride Level 106, Carbon Dioxide Level 34H, Anion Gap 7, Blood Urea Nitrogen 36H, Creatinine 3.2H, Estimat Glomerular Filtration Rate , Glucose Level 108H, Calcium Level 8.6 Height (Feet): 5 Height (Inches): 2.00 Weight (Pounds): 184 General Appearance: no apparent distress, alert EENT: normal ENT inspection Neck: normal alignment, supple Cardiovascular: normal rate, regular rhythm Respiratory/Chest: lungs clear, normal breath sounds Abdomen: non tender, soft Edema: 1+ Arm (L), 1+ Arm (R), 1+ Leg (L), 1+ Leg (R), 1+ Pedal (L), 1+ Pedal ( R), 1+ Generalized Cody Hoyos MD Oct 12, 2019 12:46
[2019-10-12 16:00] VITALS: BP 155/88
[2019-10-12] MEDS ORDERED: D5W 275ml ONE (17:18)
[2019-10-12] MEDS ORDERED: NS Irrig 1000ml ONE (17:18)
--- NOTE | 2019-10-12 19:05 | NUR ---
NURSE NOTES: Pt report received from [facility]. pt remains stable as of now. pt is alert and oriented times 2, and able to follow simple commands. pt is on 2 L NC able to sat at 99%, no resp distress noted. pt is on head paper tester showing NSR, no distress noted. pt bed is low, locked, armed, call light within reach, bed rails up times 3. will follow plan of care.
[2019-10-12 20:00] VITALS: BP 159/70
[2019-10-12] MEDS: Dyna-Hex 2% Top Sol 2oz TOPIC SCH (20:38)
--- NOTE | 2019-10-12 22:00 | Progress Note ---
DATE: 10/12/2019 CARDIOLOGY PROGRESS NOTE SUBJECTIVE: The patient is on hemodialysis today tolerating without difficulty. Blood pressure trending up. Abdominal pain has diminished. She remains on IV antimicrobials. She has required packed red blood cell transfusions in addition to continuing Epogen and iron. OBJECTIVE: VITAL SIGNS: Blood pressure 146/74, pulse 95, respirations 19, temperature max 99.3. HEENT: Mucous membranes moist. NECK: Supple. CHEST: Right chest wall catheter site clean and dry. LUNGS: Diminished breath sounds. No rales. CARDIAC: Regular rhythm and rate. Normal S1, S2 with no rub. There is a fourth heart sound. ABDOMEN: Obese and soft. EXTREMITIES: With trace dependent edema. LABORATORY DATA: Sodium 147, potassium 3.2, bicarb 34, BUN 36, and creatinine 3.2. IMPRESSION: 1. Gram-negative bacteremia. 2. CKD 5, now on hemodialysis. 3. Anemia, multifactorial. 4. Pericardial effusion diminished and of no clinical significance. 5. Acute on chronic diastolic congestive heart failure, compensated with medications and ultrafiltration. 6. Hypertensive heart disease with labile blood pressure parameters. 7. Lactic acidosis. 8. Dehydration. 9. Hypernatremia. 10. Hypokalemia PLAN: 1. Hemodialysis. 2. Antimicrobials. 3. Titrate antihypertensive and anti-failure drugs. 4. Skin care. 5. Adjust dialysate for electrolyte disturbances. Lance Rivas M.D. DR: ELVIA JOB#: [id number] CC:
[2019-10-12] MEDS: Morphine Sulfate 2mg/ml Inj(IV/IM USE ONLY) IVP PRN (23:19)
[2019-10-13] VITALS: BP 144/61
[2019-10-13] MEDS: Acetaminophen 650mg/20.3ml GT PRN ×3 (02:19→14:03)
--- NOTE | 2019-10-13 02:26 | NUR ---
NURSE NOTES: Tylenol held/ not given after being pulled from Pyxis due to low platelet count. medication safely disposed in medication bin.
[2019-10-13 04:00] VITALS: BP 152/62
[2019-10-13] MEDS: Morphine Sulfate 2mg/ml Inj(IV/IM USE ONLY) IVP PRN ×4 (04:04→21:08)
[2019-10-13] MEDS: HydrALAZINE 50mg tab GT SCH ×3 (05:09→21:07)
[2019-10-13] MEDS: Levothyroxine 125mcg tab GT SCH (05:32)
[2019-10-13 06:33] LABS: BASOPHILS % (AUTO) 1.3 % (0.0-2.0); EOSINOPHILS % (AUTO) 2.3 % (0.0-3.0); HEMATOCRIT 27.8 % (37.0-47.0); HEMOGLOBIN 9.3 G/DL (12.0-16.0); LYMPHOCYTES % (AUTO) 12.4 % (20.0-45.0); MEAN CORPUSCULAR VOLUME 89 FL (80-99); MONOCYTES % (AUTO) 8.7 % (1.0-10.0); NEUTROPHILS % (AUTO) 75.4 % (45.0-75.0); PLATELET COUNT 137 K/UL (150-450); RED BLOOD COUNT 3.13 M/UL (4.20-5.40); RED CELL DISTRIBUTION WIDTH 13.8 % (11.6-14.8); WHITE BLOOD COUNT 7.8 K/UL (4.8-10.8)
[2019-10-13 07:02] LABS: CALCIUM 8.2 MG/DL (8.5-10.1); CARBON DIOXIDE 38 MMOL/L (21-32); CREATININE 3.1 MG/DL (0.55-1.30)
--- NOTE | 2019-10-13 07:20 | NUR ---
HAND-OFF: Report given to ignacio [facility] SDU. Pt remains stable.
[2019-10-13 07:22] LABS: ANION GAP 0 mmol/L (5-15); BLOOD UREA NITROGEN 38 mg/dL (7-18); CHLORIDE 105 MMOL/L (98-107); POTASSIUM 2.9 MMOL/L (3.5-5.1); SODIUM 141 MMOL/L (136-145)
--- NOTE | 2019-10-13 07:35 | NUR ---
NURSE NOTES: late entry: RECEIVED REPORT FROM RAJAN Montgomery PT IN BED, MOANING LOUDLY, REPORTS PAIN IN ABDOMEN 4/10, NON RADIATING. PT ON 2L NC, SATING 96%. VS: HR 101, BP 142/71, RR 26, TEMP 99.0 ORAL. A/O X1, SPEECH GARBLED AND DELAYED. LUNG SOUNDS DIMINISHED. G-TUBE PRESENT, NEPRO RUNNING AT 35, W/ 200ML FLUSH. MD AZEVEDO HERE TO SEE PT. WAS INFORMED OF PT C/O OF PAIN. ORDER TO HOLD TUBE FEEDING UNTIL FURTHER NOTICE. PLANS TO INCREASE LEVEL OF PAIN MEDICATION. NOW G-TUBE CLAMPED AND FLUSHED WITH 30ML. ABDOMEN DISTENDED, HYPOACTIVE BOWEL SOUNDS. NO BM AT THIS TIME. PURE WICK IN PLACE. URINE LIGHT EFRAIN. BILATERAL RADIAL AND PEDAL PULSES BOUNDING. SCD'S ON. KIN- SEE ASSESSMENT. RT RICHARD/ PATTI W/ PIGTAIL, TKO. DRESSING WILL BE CHANGED MY SHIFT, PINK TINGED DRAINAGE NOTED. CONTACT AND FALL PRECAUTIONS IN PLACE. BED LOCKED, IN LOW POSITION, CALL LIGHT IN REACH. BED ALARM ON. ZONE 1 AND SIDE RAILS X3.EDUCATION FOR PAIN MANAGEMENT, PLAN OF CARE. WILL CONTINUE TO MONITOR PT.
[2019-10-13 08:00] VITALS: BP 142/71
--- NOTE | 2019-10-13 08:00 | NUR ---
NURSE NOTES: LATE ENTRY: TYLENOL 650MG, 20.3ML FOR MILD PAIN 01/26
--- NOTE | 2019-10-13 09:09 | Infectious Diseases Prog Note ---
Assessment/Plan Assessment/Plan IMPRESSION: 1. E, coli sepsis 2. pneumonia in right lower lobe. 3. Acute renal failure. 4. Chronic kidney disease. 5. Hyperkalemia. 6. Hypernatremia. 7. Hypoxemia. 8. Anemia. 9. Thrombocytopenia. 10. Hypothyroidism. 11. Recent MRSA sepsis. 12. Parkinson disease. 13. Dementia. RECOMMENDATION: Continue with Meropenem X 3 days Subjective ROS Limited/Unobtainable: Yes Constitutional: Reports: no symptoms Respiratory: Reports: no symptoms Musculoskeletal: Denies: pain Allergies: Coded Allergies: ERYTHROMYCIN BASE (Unverified Allergy, Intermediate, 07/14/19) Per patient not allergic to medications or food Objective Vital Signs Last 24 Hour Vital Signs Date Time Temp Pulse Resp B/P (MAP) Pulse Ox O2 Delivery O2 Flow Rate FiO2 10/13/19 08:09 101 142/71 10/13/19 08:09 101 142/71 10/13/19 05:09 158/88 10/13/19 04:00 99.4 94 20 152/62 (92) 100 10/13/19 04:00 95 10/13/19 04:00 Nasal Cannula 2.0 10/13/19 00:00 99.0 90 20 144/61 (88) 98 10/13/19 00:00 88 10/13/19 00:00 Nasal Cannula 2.0 10/12/19 22:23 158/81 10/12/19 20:39 93 159/70 10/12/19 20:00 Nasal Cannula 2.0 10/12/19 20:00 99.9 93 20 159/70 (99) 100 10/12/19 20:00 88 10/12/19 16:00 95 10/12/19 16:00 97.7 100 19 155/88 (110) 99 10/12/19 15:54 Nasal Cannula 2.0 10/12/19 13:02 152/78 10/12/19 13:01 93 152/78 10/12/19 13:00 94 20 98 Room Air 21 10/12/19 12:00 96 10/12/19 12:00 Nasal Cannula 2.0 10/12/19 12:00 97.9 93 18 152/78 (102) 98 10/12/19 09:46 95 146/74 Height (Feet): 5 Height (Inches): 2.00 Weight (Pounds): 185 General Appearance: no acute distress HEENT: mucous membranes moist Respiratory/Chest: other - few rhonchi, oxygen by nasal cannula Cardiovascular: tachycardia, other Abdomen: soft, non tender, other - GT feeding Extremities: no edema, other - bilateral leg SCD Neurologic/Psychiatric: alert, responsive Microbiology Date/Time Source Procedure Growth Status 10/11/19 02:30 Stool Clostridium difficile Toxin Assay - Final Complete Laboratory Tests Test 10/13/19 05:50 White Blood Count 7.8 K/UL (4.8-10.8) Red Blood Count 3.13 M/UL (4.20-5.40) L Hemoglobin 9.3 G/DL (12.0-16.0) L Hematocrit 27.8 % (37.0-47.0) L Mean Corpuscular Volume 89 FL (80-99) Mean Corpuscular Hemoglobin 29.6 PG (27.0-31.0) Mean Corpuscular Hemoglobin Concent 33.3 G/DL (32.0-36.0) Red Cell Distribution Width 13.8 % (11.6-14.8) Platelet Count 137 K/UL (150-450) L Mean Platelet Volume 9.1 FL (6.5-10.1) Neutrophils (%) (Auto) 75.4 % (45.0-75.0) H Lymphocytes (%) (Auto) 12.4 % (20.0-45.0) L Monocytes (%) (Auto) 8.7 % (1.0-10.0) Eosinophils (%) (Auto) 2.3 % (0.0-3.0) Basophils (%) (Auto) 1.3 % (0.0-2.0) Sodium Level 141 MMOL/L (136-145) Potassium Level 2.9 MMOL/L (3.5-5.1) L Chloride Level 105 MMOL/L (98-107) Carbon Dioxide Level 38 MMOL/L (21-32) H Anion Gap 0 mmol/L (5-15) L Blood Urea Nitrogen 38 mg/dL (7-18) H Creatinine 3.1 MG/DL (0.55-1.30) H Estimat Glomerular Filtration Rate mL/min (>60) Glucose Level 122 MG/DL (74-106) H Lactic Acid Level 0.80 mmol/L (0.4-2.0) Calcium Level 8.2 MG/DL (8.5-10.1) L Magnesium Level 1.8 MG/DL (1.8-2.4) Pro-B-Type Natriuretic Peptide 6642 pg/mL (0-125) H Current Medications Medications (Trade) Dose Ordered Sig/Jonathan Route PRN Reason Start Time Stop Time Status Last Admin Dose Admin Acetaminophen (Tylenol) 650 mg Q4H PRN GT Mild Pain/Temp > 100.5 10/07/19 20:30 11/06/19 20:29 10/13/19 07:58 Amlodipine Besylate (Norvasc) 5 mg DAILY GT 10/12/19 13:00 11/11/19 12:59 10/13/19 08:09 Chlorhexidine Gluconate (Meredith-Hex 2%) 1 applic DAILY@1999 TOPIC 10/10/19 20:00 11/09/19 19:59 10/12/19 20:38 Fludrocortisone Acetate (Florinef) 0.1 mg BID GT 10/07/19 20:00 11/06/19 19:59 10/13/19 08:08 Hydralazine HCl (Apresoline) 100 mg Q8HR GT 10/07/19 22:00 11/06/19 21:59 10/13/19 05:09 Lansoprazole (Prevacid) 30 mg DAILY GT 10/08/19 09:00 11/07/19 08:59 10/13/19 08:09 Levothyroxine Sodium (Synthroid) 125 mcg ACBREAKFAST GT 10/08/19 06:30 11/07/19 06:29 10/13/19 05:32 Meropenem 500 mg/ Sodium Chloride 55 ml @ 110 mls/hr Q24H IVPB 10/10/19 11:00 10/15/19 10:59 10/12/19 11:24 Metoprolol Tartrate (Lopressor) 25 mg Q12HR GT 10/12/19 21:00 11/09/19 01:44 10/13/19 08:09 Morphine Sulfate (Morphine Sulfate) 0.5 mg Q4H PRN IVP For Pain 10/07/19 21:30 10/14/19 21:29 10/13/19 04:04 Ruperto Freedman MD Oct 13, 2019 09:08
--- NOTE | 2019-10-13 09:59 | NUR ---
NURSE NOTES: LATE ENTRY: MORPHINE 0.5MG 0.25ML IVP, FOR PAIN 04/28. ABDOMEN, ACHING PAIN. NO RADIATING.
--- NOTE | 2019-10-13 10:31 | Cardiology Report ---
APPROVED REPORT EXAM: Two-dimensional and M-mode echocardiogram with Doppler and color Doppler. INDICATION Pericardia Effusion. M-Mode DIMENSIONS IVSd1.5 (0.7-1.1cm)Left Atrium (MM)3.1 (1.6-4.0cm) LVDd4.2 (3.5-5.6cm)Aortic Root2.4 (2.0-3.7cm) PWd1.2 (0.7-1.1cm)Aortic Cusp Exc.1.8 (1.5-2.0cm) LVDs2.8 (2.5-4.0cm) PWs1.8 cm Other Information Technically limited study due to pts position. Normal left ventricular chamber size, systolic function and wall motion to extent visualized. Left ventricular ejection fraction grossly estimated to be 65 %. Mild left ventricular hypertrophy. Small pericardial effusion (unchanged from last Echo). All other cardiac chamber sizes are within normal limits. Focal aortic valve sclerosis with adequate cusp excursion. Thickened mitral valve leaflets with normal excursion. Mitral annulus and aortic root calcification. Pulmonic valve not well visualized. Normal tricuspid valve structure. IVC at normal size with physiologic collapse. A color flow and spectral Doppler study was performed and revealed: Trace mitral regurgitation. Mitral inflow indicates normal left ventricular diastolic function. Trace tricuspid regurgitation. Tricuspid systolic velocities suggests peak right ventricular systolic pressure of 11 mmHg. Pulmonic regurgitation present.
--- NOTE | 2019-10-13 11:15 | NUR ---
RD ASSESSMENT & RECOMMENDATIONS SEE CARE ACTIVITY FOR COMPLETE ASSESSMENT DAILY ESTIMATED NEEDS: Needs based on CKD IV, Wound 57.7kg abw 25-30 kcals/kg 7171-3611 total kcals (Without HD:0.6-1) (With HD: 1.25-1.8) g protein/kg (Without HD: 35-58) (With HD: 72-104) g total protein Fluid per MD NUTRITION DIAGNOSIS: 1) Altered nutrition related lab values r/t JJ on CKD 4 as evidenced by elev creat (6.8 -> 3.1 improved), elev BUN (119->38 improved), elev K (5.3-> 2.9 now low). elev Na (158 -> wnl), s/p placement of Broderick cath, HD x1. 2) Swallowing difficulty r/t dysphagia as evidenced by GT dep. CURRENT TF:NEPRO @35ml/hr x22 hrs ENTERAL NUTRITION RECOMMENDATIONS: WITH CONTINUED HD: Nepro @ 42ml/hr x 22 hrs to provide 924ml, 1663kcal, 75g prot, 672ml free water - W/ continued HD, rec to increase goal rate to 42ml/hr x 22 hrs (hold 1 hr before and after Synthroid med) - HOB over 30 degrees/ water flush per MD WITHOUT HD, maintain current TF of Nepro @ 35ml/hr x 22 hrs to provide 770ml, 1386 kcal, 62g pro, 560ml free H2o -> will meet 96% est kcal and 107% est pro needs ADDITIONAL RECOMMENDATIONS: 1) Calibrated bedscale wt for accurate CBW Bed scale reads 216.7# w/ EMR wt of 185# 2) Monitor renal fxn, monitor for continuation of HD -> s/p Broderick cath, s/p HD x1. now w/ improved renal fxn -> Rec to increase TF goal rate w/ continued HD 3) Monitor lytes, check phos and mag level 4) Wound healing: add Nephrovite x 1 + Kael 1pkt BID
[2019-10-13] MEDS: Meropenem 500 MG in NS 55 ML IVPB SCH (11:43)
[2019-10-13 12:00] VITALS: BP 146/66
--- NOTE | 2019-10-13 12:00 | NUR ---
NURSE NOTES: late entry: PT IN BED, MOANING LOUDLY, REPORTS PAIN IN ABDOMEN 3/10, NON RADIATING. PT ON 2L NC, SATING 98%. VS: HR 104, BP 146/66, RR 18, TEMP 98.5 ORAL. A/O X1, LUNG SOUNDS DIMINISHED. G-TUBE PRESENT AND CLAMPED, HOLD TUBE FEEDING UNTIL FURTHER NOTICE. ABDOMEN DISTENDED, HYPOACTIVE BOWEL SOUNDS. ONE LARGE, LOOSE BM, BROWN. PURE WICK IN PLACE. SCD'S ON. KIN- SEE ASSESSMENT. RT RICHARD/ PATTI W/ ALAN, TKO. CONTACT AND FALL PRECAUTIONS IN PLACE. BED LOCKED, IN LOW POSITION, CALL LIGHT IN REACH. BED ALARM ON. ZONE 1 AND SIDE RAILS X3.EDUCATION FOR PAIN MANAGEMENT, PLAN OF CARE. WILL CONTINUE TO MONITOR PT.
--- NOTE | 2019-10-13 13:18 | General Progress Note ---
Assessment/Plan Problem List: (1) Sepsis ICD Codes: A41.9 - Sepsis, unspecified organism SNOMED: 27167083 (2) Lactic acid acidosis ICD Codes: E87.2 - Acidosis SNOMED: 85846957 (3) Anemia ICD Codes: D64.9 - Anemia, unspecified SNOMED: 951409617 (4) Alkalosis, metabolic ICD Codes: E87.3 - Alkalosis, metabolic SNOMED: 8806951 (5) Acidosis ICD Codes: E87.2 - Acidosis SNOMED: 30642334 (6) UTI (urinary tract infection) ICD Codes: N39.0 - Urinary tract infection, site not specified SNOMED: 56894665 (7) Acute renal failure (ARF) ICD Codes: N17.9 - Acute kidney failure, unspecified SNOMED: 21134177 Status: stable Assessment/Plan: iv abx follow up cultures wound care HD per renal monitor bp- may need to resume bp meds monitor for bleeding transfuse as needed hold feeds gi follow up guarded Subjective ROS Limited/Unobtainable: No Constitutional: Reports: malaise, weakness HEENT: Reports: no symptoms Cardiovascular: Reports: no symptoms Respiratory: Reports: no symptoms Gastrointestinal/Abdominal: Reports: abdominal pain Genitourinary: Reports: no symptoms Neurologic/Psychiatric: Reports: no symptoms Endocrine: Reports: no symptoms Hematologic/Lymphatic: Reports: no symptoms Allergies: Coded Allergies: ERYTHROMYCIN BASE (Unverified Allergy, Intermediate, 07/14/19) Per patient not allergic to medications or food All Systems: reviewed and negative except above Subjective still with abd pain. no fever or chills. tolerating feeds. Objective Last 24 Hour Vital Signs Date Time Temp Pulse Resp B/P (MAP) Pulse Ox O2 Delivery O2 Flow Rate FiO2 10/13/19 08:09 101 142/71 10/13/19 08:09 101 142/71 10/13/19 08:00 100 10/13/19 08:00 Nasal Cannula 2.0 10/13/19 05:09 158/88 10/13/19 04:00 99.4 94 20 152/62 (92) 100 10/13/19 04:00 95 10/13/19 04:00 Nasal Cannula 2.0 10/13/19 00:00 99.0 90 20 144/61 (88) 98 10/13/19 00:00 88 10/13/19 00:00 Nasal Cannula 2.0 10/12/19 22:23 158/81 10/12/19 20:39 93 159/70 10/12/19 20:00 Nasal Cannula 2.0 10/12/19 20:00 99.9 93 20 159/70 (99) 100 10/12/19 20:00 88 10/12/19 16:00 95 10/12/19 16:00 97.7 100 19 155/88 (110) 99 10/12/19 15:54 Nasal Cannula 2.0 Intake and Output 10/12/19 10/13/19 18:59 06:59 Intake Total 685 ml 720 ml Output Total 550 ml 200 ml Balance 135 ml 520 ml Intake Free Water 300 ml 300 ml Tube Feeding 385 ml 420 ml Output Urine Total 550 ml 200 ml # Bowel Movements 3 1 Laboratory Tests 10/13/19 05:50: White Blood Count 7.8, Red Blood Count 3.13L, Hemoglobin 9.3L, Hematocrit 27.8L , Mean Corpuscular Volume 89, Mean Corpuscular Hemoglobin 29.6, Mean Corpuscular Hemoglobin Concent 33.3, Red Cell Distribution Width 13.8, Platelet Count 137L, Mean Platelet Volume 9.1, Neutrophils (%) (Auto) 75.4H, Lymphocytes (%) (Auto) 12.4L, Monocytes (%) (Auto) 8.7, Eosinophils (%) (Auto) 2.3, Basophils (%) (Auto) 1.3, Sodium Level 141, Potassium Level 2.9L, Chloride Level 105, Carbon Dioxide Level 38H, Anion Gap 0L, Blood Urea Nitrogen 38H, Creatinine 3.1H, Estimat Glomerular Filtration Rate , Glucose Level 122H, Lactic Acid Level 0.80, Calcium Level 8.2L, Magnesium Level 1.8, Pro-B-Type Natriuretic Peptide 6642H Height (Feet): 5 Height (Inches): 2.00 Weight (Pounds): 185 Objective General Appearance: WD/WN, alert Neck: supple Cardiovascular: normal rate, regular rhythm Respiratory/Chest: chest wall non-tender, lungs clear, normal breath sounds Abdomen: normal bowel sounds, soft, no organomegaly, tender Edema: no edema noted Arm (L), no edema noted Arm (R), no edema noted Leg (L), no edema noted Leg (R), no edema noted Pedal (L), no edema noted Pedal (R), no edema noted Generalized Chema Hendricks MD Oct 13, 2019 13:17
--- NOTE | 2019-10-13 14:03 | NUR ---
NURSE NOTES: LATE ENTRY: TYLENOL 650MG, 20.3ML FOR MILD PAIN 01/26
[2019-10-13 16:00] VITALS: BP 152/73
--- NOTE | 2019-10-13 16:00 | NUR ---
NURSE NOTES: late entry: PT IN BED, RESTING. PT ON 2L NC, SATING 98%. VS: HR 98, BP 152/73, RR 16, TEMP 97.9 ORAL. A/O X1, LUNG SOUNDS DIMINISHED. G-TUBE PRESENT AND CLAMPED. ABDOMEN DISTENDED, HYPOACTIVE BOWEL SOUNDS. SEVERAL LARGE, LOOSE BM, BROWN. PURE WICK IN PLACE. GOOD OUTPUT HOURLY. RT IJ/ PATTI W/ PIGTAIL, TKO, DRESSING DRY AND INTACT. CONTACT AND FALL PRECAUTIONS IN PLACE. BED LOCKED, IN LOW POSITION, CALL LIGHT IN REACH. BED ALARM ON. SIDE RAILS X3. WILL CONTINUE TO MONITOR PT. Addendum: 10/13/19 at 1941 by Tila Hernandez RN 20 k-dur po given.
--- NOTE | 2019-10-13 16:40 | Nephrology Progress Note ---
Assessment/Plan Problem List: (1) Healthcare-associated pneumonia (2) Anemia in chronic kidney disease (3) CKD (chronic kidney disease) stage 5, GFR less than 15 ml/min (4) Abdominal pain in female (5) CHF exacerbation (6) Sepsis Plan nonoliguric, hold off dialysis, replace K, cont rxx esbl sepsis Subjective Constitutional: Reports: weakness HEENT: Reports: no symptoms Genitourinary: Reports: incontinence Neurologic/Psychiatric: Reports: pre-existing deficit Objective Objective Last 24 Hour Vital Signs Date Time Temp Pulse Resp B/P (MAP) Pulse Ox O2 Delivery O2 Flow Rate FiO2 10/13/19 14:02 155/79 10/13/19 12:00 Nasal Cannula 2.0 10/13/19 12:00 98.5 104 18 146/66 (92) 98 10/13/19 12:00 99 10/13/19 08:09 101 142/71 10/13/19 08:09 101 142/71 10/13/19 08:00 99.0 101 26 142/71 (94) 96 10/13/19 08:00 100 10/13/19 08:00 Nasal Cannula 2.0 10/13/19 05:09 158/88 10/13/19 04:00 99.4 94 20 152/62 (92) 100 10/13/19 04:00 95 10/13/19 04:00 Nasal Cannula 2.0 10/13/19 00:00 99.0 90 20 144/61 (88) 98 10/13/19 00:00 88 10/13/19 00:00 Nasal Cannula 2.0 10/12/19 22:23 158/81 10/12/19 20:39 93 159/70 10/12/19 20:00 Nasal Cannula 2.0 10/12/19 20:00 99.9 93 20 159/70 (99) 100 10/12/19 20:00 88 Intake and Output 10/12/19 10/13/19 18:59 06:59 Intake Total 685 ml 720 ml Output Total 550 ml 200 ml Balance 135 ml 520 ml Intake Free Water 300 ml 300 ml Tube Feeding 385 ml 420 ml Output Urine Total 550 ml 200 ml # Bowel Movements 3 1 Laboratory Tests 10/13/19 05:50: White Blood Count 7.8, Red Blood Count 3.13L, Hemoglobin 9.3L, Hematocrit 27.8L , Mean Corpuscular Volume 89, Mean Corpuscular Hemoglobin 29.6, Mean Corpuscular Hemoglobin Concent 33.3, Red Cell Distribution Width 13.8, Platelet Count 137L, Mean Platelet Volume 9.1, Neutrophils (%) (Auto) 75.4H, Lymphocytes (%) (Auto) 12.4L, Monocytes (%) (Auto) 8.7, Eosinophils (%) (Auto) 2.3, Basophils (%) (Auto) 1.3, Sodium Level 141, Potassium Level 2.9L, Chloride Level 105, Carbon Dioxide Level 38H, Anion Gap 0L, Blood Urea Nitrogen 38H, Creatinine 3.1H, Estimat Glomerular Filtration Rate , Glucose Level 122H, Lactic Acid Level 0.80, Calcium Level 8.2L, Magnesium Level 1.8, Pro-B-Type Natriuretic Peptide 6642H Height (Feet): 5 Height (Inches): 2.00 Weight (Pounds): 185 General Appearance: obese EENT: normal ENT inspection Neck: normal alignment, supple Cardiovascular: regular rhythm Respiratory/Chest: rhonchi - bilaterally Abdomen: non tender Extremities: trace edema Neurologic: motor weakness Jose Lemus MD Oct 13, 2019 16:40
--- NOTE | 2019-10-13 17:00 | NUR ---
NURSE NOTES: late entry: MORPHINE 0.5MG 0.25ML IVP, FOR PAIN 04/28. ABDOMEN, ACHING PAIN. NO RADIATING.
--- NOTE | 2019-10-13 17:00 | Progress Note ---
DATE: 10/13/2019 CARDIOLOGY PROGRESS NOTE SUBJECTIVE: The patient was seen with daughter at bedside. She is more alert. Less pain in the abdomen noted. She remains on IV antimicrobials and hemodialysis via catheter. OBJECTIVE: VITAL SIGNS: Blood pressure 142/71, pulse 101, and respirations 18. LUNGS: Bilateral breath sounds. Few rhonchi. CARDIAC: Regular rhythm and rate. Normal S1, S2 with no rub. ABDOMEN: Soft. G-tube intact. EXTREMITIES: Trace edema. LABORATORY DATA: White count 7.8 and hemoglobin 9.3. Sodium is 141, potassium 2.9, magnesium 1.8, BUN 38, and creatinine 3.1. Lactic acid 0.8. IMPRESSION: 1. Lactic acidosis, resolved. 2. Severe sepsis, recovering. 3. Chronic kidney disease 5, on hemodialysis. 4. Hypokalemia. 5. Acute on chronic diastolic congestive heart failure. 6. Hypertensive heart disease. 7. Severe protein-calorie malnutrition status post G-tube. PLAN: 1. Potassium replacement. 2. Nutritional support by feeding tube. 3. Antimicrobials. 4. Respiratory hygiene. 5. Hemodialysis with ultrafiltration based on volume status. 6. Observe for clinical signs of worsening pericardial effusion. Lance Rivas M.D. DR: GRACIELA JOB#: [id number] CC:
--- NOTE | 2019-10-13 18:31 | Surgery Progress Note ---
Surgery Progress Note Subjective Additional Comments labs improved renal function improved comfortable Objective Last 24 Hour Vital Signs Date Time Temp Pulse Resp B/P (MAP) Pulse Ox O2 Delivery O2 Flow Rate FiO2 10/13/19 14:02 155/79 10/13/19 12:00 Nasal Cannula 2.0 10/13/19 12:00 98.5 104 18 146/66 (92) 98 10/13/19 12:00 99 10/13/19 08:09 101 142/71 10/13/19 08:09 101 142/71 10/13/19 08:00 99.0 101 26 142/71 (94) 96 10/13/19 08:00 100 10/13/19 08:00 Nasal Cannula 2.0 10/13/19 05:09 158/88 10/13/19 04:00 99.4 94 20 152/62 (92) 100 10/13/19 04:00 95 10/13/19 04:00 Nasal Cannula 2.0 10/13/19 00:00 99.0 90 20 144/61 (88) 98 10/13/19 00:00 88 10/13/19 00:00 Nasal Cannula 2.0 10/12/19 22:23 158/81 10/12/19 20:39 93 159/70 10/12/19 20:00 Nasal Cannula 2.0 10/12/19 20:00 99.9 93 20 159/70 (99) 100 10/12/19 20:00 88 I&O Intake and Output 10/12/19 10/13/19 19:00 07:00 Intake Total 685 ml 710 ml Output Total 550 ml 200 ml Balance 135 ml 510 ml Intake Free Water 300 ml 300 ml Tube Feeding 385 ml 410 ml Output Urine Total 550 ml 200 ml # Bowel Movements 3 1 Dressing: other Wound: other Drains: other Cardiovascular: RSR Respiratory: decreased breath sounds Abdomen: soft, present bowel sounds Extremities: no cyanosis Laboratory Tests Test 10/13/19 05:50 White Blood Count 7.8 K/UL (4.8-10.8) Red Blood Count 3.13 M/UL (4.20-5.40) L Hemoglobin 9.3 G/DL (12.0-16.0) L Hematocrit 27.8 % (37.0-47.0) L Mean Corpuscular Volume 89 FL (80-99) Mean Corpuscular Hemoglobin 29.6 PG (27.0-31.0) Mean Corpuscular Hemoglobin Concent 33.3 G/DL (32.0-36.0) Red Cell Distribution Width 13.8 % (11.6-14.8) Platelet Count 137 K/UL (150-450) L Mean Platelet Volume 9.1 FL (6.5-10.1) Neutrophils (%) (Auto) 75.4 % (45.0-75.0) H Lymphocytes (%) (Auto) 12.4 % (20.0-45.0) L Monocytes (%) (Auto) 8.7 % (1.0-10.0) Eosinophils (%) (Auto) 2.3 % (0.0-3.0) Basophils (%) (Auto) 1.3 % (0.0-2.0) Sodium Level 141 MMOL/L (136-145) Potassium Level 2.9 MMOL/L (3.5-5.1) L Chloride Level 105 MMOL/L (98-107) Carbon Dioxide Level 38 MMOL/L (21-32) H Anion Gap 0 mmol/L (5-15) L Blood Urea Nitrogen 38 mg/dL (7-18) H Creatinine 3.1 MG/DL (0.55-1.30) H Estimat Glomerular Filtration Rate mL/min (>60) Glucose Level 122 MG/DL (74-106) H Lactic Acid Level 0.80 mmol/L (0.4-2.0) Calcium Level 8.2 MG/DL (8.5-10.1) L Magnesium Level 1.8 MG/DL (1.8-2.4) Pro-B-Type Natriuretic Peptide 6642 pg/mL (0-125) H Plan Problems: (1) Lactic acid acidosis Assessment & Plan: Patient noted to have leukocytosis, fevers, abdominal wall cellulitis, lactic acidosis. Abnormal labs. Etiology and work-up continuing currently with microbiology pending and on IV antibiotics Local care being provided. Imaging noted Pt presented on admission with partially opened DTPI Sacrum.Base of wound extends from sacrum to R and L buttocks and is maroon with #3 small openings , each with slough at mid sacral area. Pt grimaced when affected area minimally palpated. Non-blanching erythema noted to R and L ischial regions. Moisture Intertrigo with surrounding erythema and denuded skin noted to R and L breasts. Mild odor noted each skin folds of breasts.Small amt sanguineous exudate noted from L breast. Mons pubis,labia majora, and medial aspects of both upper thighs erythematous and denuded. R ad L heels are firm and blanchable. Tx.Plan: [place] Liquid Skin Repair to R and L breasts(x1 application) applied to folds of each breasts. Apply Moisture Barrier paste to perineum with each incontinence care. Apply Moisture Barrier Paste to Sacrum.Cover with Optifoam drsgs. Change every 3 days and prn. APM/SIM Mattress overlay. Reposition at least every 2 hours or as tolerated. Off-load heels with pillow. (2) Sepsis Assessment & Plan: 73-year-old female with sepsis, lactic acidosis, renal insufficiency, cellulitis, leukocytosis. Febrile, hemodynamically stable, exam as above Coordinated with radiology for urgent temporary even as catheter insertion. Placed today and will discuss with nephrology for dialysis Antibiotics as per infectious disease Trend labs IV fluid resuscitation Dense consolidation in the posterior right lower lobe, likely pneumonia Liquid stool in the proximal colon, could indicate diarrheal illness Trace free intraperitoneal fluid Slight hepatic atrophy and surface nodularity raising possibility of cirrhotic change Small lesser sac varices and splenomegaly raises possibility of portal hypertension Pericardial effusion, also evident previously abd wall cellulitis superficial and lumps likely prior injection sites and not infected. unlikely etiology of sepsis. We will follow with recommendations Thank you for allowing me to participate in patient care Kirk Em Oct 13, 2019 18:31
--- NOTE | 2019-10-13 19:05 | NUR ---
NURSE NOTES: Pt report received from [place] [employer] APPRENTICE SDU. pt remains stable. pt is alert and oriented times 2, yet able to follow simple commands. pt is on hall monitor showing NSR, no abnormalities noted. pt is on 2 L NC able to sat at 100%, no resp distress noted. pt bed is low, locked, armed, bed rails up times 3, call light within reach. will follow plan of care.
[2019-10-13 20:00] VITALS: BP 151/80
--- NOTE | 2019-10-13 20:30 | NUR ---
NURSE NOTES: called MD Hendricks regarding Pt pt in pain and current pain medications. asked to in crease morphine PRN IV Q4. stated to "increase by 1 MG" verified with charge attendant Stella. will contact pharmacy to verify.
[2019-10-13] MEDS: Dyna-Hex 2% Top Sol 2oz TOPIC SCH (20:36)
[2019-10-13] MEDS ORDERED: Morphine Sulfate 2mg/ml Inj(IV/IM USE ONLY) IVP PRN (21:00)
[2019-10-14] VITALS: BP 158/72
[2019-10-14] MEDS: Morphine Sulfate 2mg/ml Inj(IV/IM USE ONLY) IVP PRN ×3 (01:24→20:16)
[2019-10-14 04:00] VITALS: BP 155/82
[2019-10-14 05:28] LABS: BASOPHILS % (AUTO) 0.8 % (0.0-2.0); EOSINOPHILS % (AUTO) 1.6 % (0.0-3.0); HEMATOCRIT 27.7 % (37.0-47.0); HEMOGLOBIN 9.1 G/DL (12.0-16.0); LYMPHOCYTES % (AUTO) 10.1 % (20.0-45.0); MEAN CORPUSCULAR VOLUME 89 FL (80-99); MONOCYTES % (AUTO) 9.7 % (1.0-10.0); NEUTROPHILS % (AUTO) 77.8 % (45.0-75.0); PLATELET COUNT 171 K/UL (150-450); RED BLOOD COUNT 3.13 M/UL (4.20-5.40); RED CELL DISTRIBUTION WIDTH 13.8 % (11.6-14.8)
[2019-10-14] MEDS: Levothyroxine 125mcg tab GT SCH (05:35)
[2019-10-14] MEDS: HydrALAZINE 50mg tab GT SCH ×3 (05:35→22:00)
[2019-10-14 05:38] LABS: ANION GAP 8 mmol/L (5-15); BLOOD UREA NITROGEN 33 mg/dL (7-18); CALCIUM 8.5 MG/DL (8.5-10.1); CARBON DIOXIDE 32 MMOL/L (21-32); CHLORIDE 107 MMOL/L (98-107); CREATININE 2.9 MG/DL (0.55-1.30); POTASSIUM 3.4 MMOL/L (3.5-5.1); SODIUM 146 MMOL/L (136-145)
--- NOTE | 2019-10-14 06:53 | NUR ---
NURSE NOTES: messaged MD Hendricks regarding Potassium of 3.4, mag of 1.7, and scrap charger request to transfer pt to TELE. awaiting new orders.
--- NOTE | 2019-10-14 07:10 | NUR ---
HAND-OFF: Report given to Efren NUNEZ ICU SDU.Pt remains stable.
--- NOTE | 2019-10-14 07:11 | NUR ---
NURSE NOTES: RECEIVED PATIENT FROM Kate RICE RN. PATIENT LYING IN BED, AWAKE, ALERT AND RESPONSIVE. HOOKED TO CHARGE AUDITOR. ON 2L NC, SATING AT 100%. STILL ON NPO. NOTED GT TUBE, INTACT. ON PUREWICK DRAINING URINE. SKIN ALTERATION NOTED. WITH R IJ PATTI CATH, PATENT AND INTACT. CALL LIGHT WITHIN REACH. BED AT LOWEST POSITION. SIDE RAILS UP. WILL CONTINUE TO MONITOR.
[2019-10-14 08:00] VITALS: BP 158/88
--- NOTE | 2019-10-14 08:14 | NUR ---
NURSE NOTES: SEEN AND EXAMINED BY DR CORONEL.
[2019-10-14] MEDS ORDERED: Magnesium Oxide 400mg tab ORAL SCH (09:00)
--- NOTE | 2019-10-14 09:02 | General Progress Note ---
Assessment/Plan Problem List: (1) Sepsis ICD Codes: A41.9 - Sepsis, unspecified organism SNOMED: 07226617 (2) Lactic acid acidosis ICD Codes: E87.2 - Acidosis SNOMED: 71736207 (3) Anemia ICD Codes: D64.9 - Anemia, unspecified SNOMED: 440559338 (4) Alkalosis, metabolic ICD Codes: E87.3 - Alkalosis, metabolic SNOMED: 5739519 (5) Acidosis ICD Codes: E87.2 - Acidosis SNOMED: 27577788 (6) UTI (urinary tract infection) ICD Codes: N39.0 - Urinary tract infection, site not specified SNOMED: 34716925 (7) Acute renal failure (ARF) ICD Codes: N17.9 - Acute kidney failure, unspecified SNOMED: 75210977 Status: stable Assessment/Plan: iv abx follow up cultures wound care HD per renal monitor bp- may need to resume bp meds monitor for bleeding transfuse as needed hold feeds gi follow up guarded Subjective ROS Limited/Unobtainable: No Constitutional: Reports: malaise, weakness HEENT: Reports: no symptoms Cardiovascular: Reports: no symptoms Respiratory: Reports: no symptoms Gastrointestinal/Abdominal: Reports: abdominal pain Genitourinary: Reports: no symptoms Neurologic/Psychiatric: Reports: pre-existing deficit Endocrine: Reports: no symptoms Hematologic/Lymphatic: Reports: anemia Allergies: Coded Allergies: ERYTHROMYCIN BASE (Unverified Allergy, Intermediate, 07/14/19) Per patient not allergic to medications or food All Systems: reviewed and negative except above Subjective still with abd pain. less with increased morphine. no fever or chills. tolerating feeds. Objective Last 24 Hour Vital Signs Date Time Temp Pulse Resp B/P (MAP) Pulse Ox O2 Delivery O2 Flow Rate FiO2 10/14/19 08:13 99 158/88 10/14/19 08:12 99 158/88 10/14/19 08:00 97.7 99 20 158/88 (111) 98 10/14/19 05:35 165/85 10/14/19 04:00 98.6 97 20 155/82 (106) 99 10/14/19 04:00 Nasal Cannula 2.0 10/14/19 03:23 96 10/14/19 00:00 92 10/14/19 00:00 98.3 92 20 158/72 (100) 98 10/14/19 00:00 Nasal Cannula 2.0 10/13/19 21:07 162/94 10/13/19 20:37 93 157/83 10/13/19 20:00 98.6 89 18 151/80 (103) 98 10/13/19 20:00 Nasal Cannula 2.0 10/13/19 20:00 88 10/13/19 16:00 97 10/13/19 16:00 Nasal Cannula 2.0 10/13/19 16:00 97.9 98 16 152/73 (99) 98 10/13/19 14:02 155/79 10/13/19 12:00 Nasal Cannula 2.0 10/13/19 12:00 98.5 104 18 146/66 (92) 98 10/13/19 12:00 99 Intake and Output 10/13/19 10/14/19 19:00 07:00 Intake Total 140 ml Output Total 550 ml 300 ml Balance -410 ml -300 ml IV Total 110 ml Other 30 ml Output Urine Total 550 ml 300 ml # Voids 3 # Bowel Movements 6 Laboratory Tests 10/14/19 04:55: White Blood Count 6.0, Red Blood Count 3.13L, Hemoglobin 9.1L, Hematocrit 27.7L , Mean Corpuscular Volume 89, Mean Corpuscular Hemoglobin 29.3, Mean Corpuscular Hemoglobin Concent 33.0, Red Cell Distribution Width 13.8, Platelet Count 171, Mean Platelet Volume 7.8, Neutrophils (%) (Auto) 77.8H, Lymphocytes ( %) (Auto) 10.1L, Monocytes (%) (Auto) 9.7, Eosinophils (%) (Auto) 1.6, Basophils (%) (Auto) 0.8, Sodium Level 146H, Potassium Level 3.4L, Chloride Level 107, Carbon Dioxide Level 32, Anion Gap 8, Blood Urea Nitrogen 33H, Creatinine 2.9H, Estimat Glomerular Filtration Rate , Glucose Level 86, Calcium Level 8.5, Magnesium Level 1.7L Height (Feet): 5 Height (Inches): 2.00 Weight (Pounds): 181 Objective General Appearance: WD/WN, alert Neck: supple Cardiovascular: normal rate, regular rhythm Respiratory/Chest: chest wall non-tender, lungs clear, normal breath sounds Abdomen: normal bowel sounds, soft, no organomegaly, tender Edema: no edema noted Arm (L), no edema noted Arm (R), no edema noted Leg (L), no edema noted Leg (R), no edema noted Pedal (L), no edema noted Pedal (R), no edema noted Generalized Chema Hendricks MD Oct 14, 2019 09:02
--- NOTE | 2019-10-14 09:30 | NUR ---
NURSE NOTES: SEEN AND EXAMINED BY SAVANNAH TERESA. WILL CONTINUE TO MONITOR.
--- NOTE | 2019-10-14 09:30 | NUR ---
RADIOLOGY DEPT., CHEST X-RAY DONE.-P.DYE
--- NOTE | 2019-10-14 10:39 | Infectious Diseases Prog Note ---
Assessment/Plan Assessment/Plan antibiotics : meropenem A 1. e.eoli sepsis 2. leucocytosis improving 3. renal failure on HD 4. thrombocytopenia 5. pneumonia 6. Parkinsons disease 7. dementia P 1. continue meropenem 2 more days 2. will follow up cultures Subjective ROS Limited/Unobtainable: Yes Allergies: Coded Allergies: ERYTHROMYCIN BASE (Unverified Allergy, Intermediate, 07/14/19) Per patient not allergic to medications or food Objective Vital Signs Last 24 Hour Vital Signs Date Time Temp Pulse Resp B/P (MAP) Pulse Ox O2 Delivery O2 Flow Rate FiO2 10/14/19 08:13 99 158/88 10/14/19 08:12 99 158/88 10/14/19 08:00 Nasal Cannula 2.0 10/14/19 08:00 107 10/14/19 08:00 97.7 99 20 158/88 (111) 98 10/14/19 05:35 165/85 10/14/19 04:00 98.6 97 20 155/82 (106) 99 10/14/19 04:00 Nasal Cannula 2.0 10/14/19 03:23 96 10/14/19 00:00 92 10/14/19 00:00 98.3 92 20 158/72 (100) 98 10/14/19 00:00 Nasal Cannula 2.0 10/13/19 21:07 162/94 10/13/19 20:37 93 157/83 10/13/19 20:00 98.6 89 18 151/80 (103) 98 10/13/19 20:00 Nasal Cannula 2.0 10/13/19 20:00 88 10/13/19 16:00 97 10/13/19 16:00 Nasal Cannula 2.0 10/13/19 16:00 97.9 98 16 152/73 (99) 98 10/13/19 14:02 155/79 10/13/19 12:00 Nasal Cannula 2.0 10/13/19 12:00 98.5 104 18 146/66 (92) 98 10/13/19 12:00 99 Height (Feet): 5 Height (Inches): 2.00 Weight (Pounds): 181 Respiratory/Chest: lungs clear Cardiovascular: normal rate, regular rhythm, no gallop/murmur Abdomen: soft, non tender, other - GT Extremities: no edema, other - right IJ catheter Laboratory Tests Test 10/14/19 04:55 White Blood Count 6.0 K/UL (4.8-10.8) Red Blood Count 3.13 M/UL (4.20-5.40) L Hemoglobin 9.1 G/DL (12.0-16.0) L Hematocrit 27.7 % (37.0-47.0) L Mean Corpuscular Volume 89 FL (80-99) Mean Corpuscular Hemoglobin 29.3 PG (27.0-31.0) Mean Corpuscular Hemoglobin Concent 33.0 G/DL (32.0-36.0) Red Cell Distribution Width 13.8 % (11.6-14.8) Platelet Count 171 K/UL (150-450) Mean Platelet Volume 7.8 FL (6.5-10.1) Neutrophils (%) (Auto) 77.8 % (45.0-75.0) H Lymphocytes (%) (Auto) 10.1 % (20.0-45.0) L Monocytes (%) (Auto) 9.7 % (1.0-10.0) Eosinophils (%) (Auto) 1.6 % (0.0-3.0) Basophils (%) (Auto) 0.8 % (0.0-2.0) Sodium Level 146 MMOL/L (136-145) H Potassium Level 3.4 MMOL/L (3.5-5.1) L Chloride Level 107 MMOL/L (98-107) Carbon Dioxide Level 32 MMOL/L (21-32) Anion Gap 8 mmol/L (5-15) Blood Urea Nitrogen 33 mg/dL (7-18) H Creatinine 2.9 MG/DL (0.55-1.30) H Estimat Glomerular Filtration Rate mL/min (>60) Glucose Level 86 MG/DL (74-106) Calcium Level 8.5 MG/DL (8.5-10.1) Magnesium Level 1.7 MG/DL (1.8-2.4) L Current Medications Medications (Trade) Dose Ordered Sig/Jonathan Route PRN Reason Start Time Stop Time Status Last Admin Dose Admin Acetaminophen (Tylenol) 650 mg Q4H PRN GT Mild Pain/Temp > 100.5 10/07/19 20:30 11/06/19 20:29 10/13/19 14:03 Amlodipine Besylate (Norvasc) 5 mg DAILY GT 10/12/19 13:00 11/11/19 12:59 10/14/19 08:12 Chlorhexidine Gluconate (Meredith-Hex 2%) 1 applic DAILY@2000 TOPIC 10/10/19 20:00 11/09/19 19:59 10/13/19 20:36 Hydralazine HCl (Apresoline) 100 mg Q8HR GT 10/07/19 22:00 11/06/19 21:59 10/14/19 05:35 Lansoprazole (Prevacid) 30 mg DAILY GT 10/08/19 09:00 11/07/19 08:59 10/14/19 08:12 Levothyroxine Sodium (Synthroid) 125 mcg ACBREAKFAST GT 10/08/19 06:30 11/07/19 06:29 10/14/19 05:35 Meropenem 500 mg/ Sodium Chloride 55 ml @ 110 mls/hr Q24H IVPB 10/10/19 11:00 10/16/19 23:59 10/13/19 11:43 Metoprolol Tartrate (Lopressor) 25 mg Q12HR GT 10/12/19 21:00 11/09/19 01:44 10/14/19 08:13 Morphine Sulfate (Morphine Sulfate) 1 mg Q4H PRN IVP SEVERE PAIN 10/13/19 20:45 10/20/19 20:44 10/14/19 08:12 Jessica Reyes MD Oct 14, 2019 10:39
--- NOTE | 2019-10-14 11:19 | Diagnostic Imaging Report ---
Indication: Cough Comparison: 10/07/2019 A single view chest radiograph was obtained. Findings: There is asymmetrically increased density over the right hemithorax. There is a right jugular catheter that is been placed and projects over the SVC right atrial junction. There is no pneumothorax. Pulmonary vascularity is stable. The heart is mildly enlarged but stable. IMPRESSION: Generalized increased density over the right mid and lower lung field. This could be due to presence of a pleural effusion or artifact secondary to soft tissue attenuation. Doubt CHF. Cardiomegaly unchanged Right jugular Broderick catheter in good position.
--- NOTE | 2019-10-14 11:24 | Surgery Progress Note ---
Surgery Progress Note Subjective Additional Comments comfortable cxr noted exam unchanged labs improving Objective Last 24 Hour Vital Signs Date Time Temp Pulse Resp B/P (MAP) Pulse Ox O2 Delivery O2 Flow Rate FiO2 10/14/19 08:13 99 158/88 10/14/19 08:12 99 158/88 10/14/19 08:00 Nasal Cannula 2.0 10/14/19 08:00 107 10/14/19 08:00 97.7 99 20 158/88 (111) 98 10/14/19 05:35 165/85 10/14/19 04:00 98.6 97 20 155/82 (106) 99 10/14/19 04:00 Nasal Cannula 2.0 10/14/19 03:23 96 10/14/19 00:00 92 10/14/19 00:00 98.3 92 20 158/72 (100) 98 10/14/19 00:00 Nasal Cannula 2.0 10/13/19 21:07 162/94 10/13/19 20:37 93 157/83 10/13/19 20:00 98.6 89 18 151/80 (103) 98 10/13/19 20:00 Nasal Cannula 2.0 10/13/19 20:00 88 10/13/19 16:00 97 10/13/19 16:00 Nasal Cannula 2.0 10/13/19 16:00 97.9 98 16 152/73 (99) 98 10/13/19 14:02 155/79 10/13/19 12:00 Nasal Cannula 2.0 10/13/19 12:00 98.5 104 18 146/66 (92) 98 10/13/19 12:00 99 I&O Intake and Output 10/13/19 10/14/19 19:00 07:00 Intake Total 140 ml Output Total 550 ml 300 ml Balance -410 ml -300 ml IV Total 110 ml Other 30 ml Output Urine Total 550 ml 300 ml # Voids 3 # Bowel Movements 6 Dressing: other Wound: other Drains: other Cardiovascular: RSR Respiratory: decreased breath sounds Abdomen: soft, present bowel sounds, non-distended Extremities: no cyanosis, other Laboratory Tests Test 10/14/19 04:55 White Blood Count 6.0 K/UL (4.8-10.8) Red Blood Count 3.13 M/UL (4.20-5.40) L Hemoglobin 9.1 G/DL (12.0-16.0) L Hematocrit 27.7 % (37.0-47.0) L Mean Corpuscular Volume 89 FL (80-99) Mean Corpuscular Hemoglobin 29.3 PG (27.0-31.0) Mean Corpuscular Hemoglobin Concent 33.0 G/DL (32.0-36.0) Red Cell Distribution Width 13.8 % (11.6-14.8) Platelet Count 171 K/UL (150-450) Mean Platelet Volume 7.8 FL (6.5-10.1) Neutrophils (%) (Auto) 77.8 % (45.0-75.0) H Lymphocytes (%) (Auto) 10.1 % (20.0-45.0) L Monocytes (%) (Auto) 9.7 % (1.0-10.0) Eosinophils (%) (Auto) 1.6 % (0.0-3.0) Basophils (%) (Auto) 0.8 % (0.0-2.0) Sodium Level 146 MMOL/L (136-145) H Potassium Level 3.4 MMOL/L (3.5-5.1) L Chloride Level 107 MMOL/L (98-107) Carbon Dioxide Level 32 MMOL/L (21-32) Anion Gap 8 mmol/L (5-15) Blood Urea Nitrogen 33 mg/dL (7-18) H Creatinine 2.9 MG/DL (0.55-1.30) H Estimat Glomerular Filtration Rate mL/min (>60) Glucose Level 86 MG/DL (74-106) Calcium Level 8.5 MG/DL (8.5-10.1) Magnesium Level 1.7 MG/DL (1.8-2.4) L Plan Problems: (1) Lactic acid acidosis Assessment & Plan: Patient noted to have leukocytosis, fevers, abdominal wall cellulitis, lactic acidosis. Abnormal labs. Etiology and work-up continuing currently with microbiology pending and on IV antibiotics Local care being provided. Imaging noted Pt presented on admission with partially opened DTPI Sacrum.Base of wound extends from sacrum to R and L buttocks and is maroon with #3 small openings , each with slough at mid sacral area. Pt grimaced when affected area minimally palpated. Non-blanching erythema noted to R and L ischial regions. Moisture Intertrigo with surrounding erythema and denuded skin noted to R and L breasts. Mild odor noted each skin folds of breasts.Small amt sanguineous exudate noted from L breast. Mons pubis,labia majora, and medial aspects of both upper thighs erythematous and denuded. R ad L heels are firm and blanchable. Tx.Plan: [place] Liquid Skin Repair to R and L breasts(x1 application) applied to folds of each breasts. Apply Moisture Barrier paste to perineum with each incontinence care. Apply Moisture Barrier Paste to Sacrum.Cover with Optifoam drsgs. Change every 3 days and prn. APM/SIM Mattress overlay. Reposition at least every 2 hours or as tolerated. Off-load heels with pillow. (2) Sepsis Assessment & Plan: 73-year-old female with sepsis, lactic acidosis, renal insufficiency, cellulitis, leukocytosis. Febrile, hemodynamically stable, exam as above Coordinated with radiology for urgent temporary even as catheter insertion. Placed today and will discuss with nephrology for dialysis Antibiotics as per infectious disease Trend labs IV fluid resuscitation Dense consolidation in the posterior right lower lobe, likely pneumonia Liquid stool in the proximal colon, could indicate diarrheal illness Trace free intraperitoneal fluid Slight hepatic atrophy and surface nodularity raising possibility of cirrhotic change Small lesser sac varices and splenomegaly raises possibility of portal hypertension Pericardial effusion, also evident previously abd wall cellulitis superficial and lumps likely prior injection sites and not infected. unlikely etiology of sepsis. We will follow with recommendations Thank you for allowing me to participate in patient care Kirk Em Oct 14, 2019 11:24
--- NOTE | 2019-10-14 11:26 | Diagnostic Imaging Report ---
Indication: Abdominal pain Technique: Grayscale and duplex Doppler imaging of the abdomen performed. Comparison: None Findings: The liver is nodular and heterogeneous.. Doppler interrogation of the main portal vein shows patency with hepatopedal, monophasic flow. 7 mm CBD diameter noted. There is no intrahepatic biliary ductal dilatation identified. Gallbladder is notable for sludge and multiple gallstones. Sonographic Zhang's is negative per technologist.. There is ascites present. Right pleural effusion noted. Spleen is enlarged measuring 15 cm. There demonstrated part of the pancreas, aorta and IVC show no definite abnormalities. Both kidneys are echogenic. Bilateral renal cysts demonstrated. There is no hydronephrosis. IMPRESSION: Chronic liver disease/cirrhosis with signs of portal hypertension including ascites and splenomegaly. Cholelithiasis. Medical renal disease. Bilateral renal cysts.
[2019-10-14 12:00] VITALS: BP 150/82
[2019-10-14] MEDS: Meropenem 500 MG in NS 55 ML IVPB SCH (12:17)
--- NOTE | 2019-10-14 12:22 | Nephrology Progress Note ---
Assessment/Plan Problem List: (1) Healthcare-associated pneumonia (2) Anemia in chronic kidney disease (3) CKD (chronic kidney disease) stage 5, GFR less than 15 ml/min (4) Abdominal pain in female (5) CHF exacerbation (6) Sepsis Plan nonoliguric, hold off dialysis, replace K, cont rxx esbl sepsis, US cholelithiasis--might be source of sepsis, also cirrhosis and ascites, hope to start feeding soon, creat lower, anemia Rx epogen Subjective Constitutional: Reports: weakness HEENT: Reports: no symptoms Genitourinary: Reports: incontinence Neurologic/Psychiatric: Reports: pre-existing deficit Subjective some mild abd pain Objective Objective Last 24 Hour Vital Signs Date Time Temp Pulse Resp B/P (MAP) Pulse Ox O2 Delivery O2 Flow Rate FiO2 10/14/19 08:13 99 158/88 10/14/19 08:12 99 158/88 10/14/19 08:00 Nasal Cannula 2.0 10/14/19 08:00 107 10/14/19 08:00 97.7 99 20 158/88 (111) 98 10/14/19 05:35 165/85 10/14/19 04:00 98.6 97 20 155/82 (106) 99 10/14/19 04:00 Nasal Cannula 2.0 10/14/19 03:23 96 10/14/19 00:00 92 10/14/19 00:00 98.3 92 20 158/72 (100) 98 10/14/19 00:00 Nasal Cannula 2.0 10/13/19 21:07 162/94 10/13/19 20:37 93 157/83 10/13/19 20:00 98.6 89 18 151/80 (103) 98 10/13/19 20:00 Nasal Cannula 2.0 10/13/19 20:00 88 10/13/19 16:00 97 10/13/19 16:00 Nasal Cannula 2.0 10/13/19 16:00 97.9 98 16 152/73 (99) 98 10/13/19 14:02 155/79 Intake and Output 10/13/19 10/14/19 18:59 06:59 Intake Total 165 ml Output Total 550 ml 300 ml Balance -385 ml -300 ml IV Total 110 ml Tube Feeding 25 ml Other 30 ml Output Urine Total 550 ml 300 ml # Voids 3 # Bowel Movements 6 Laboratory Tests 10/14/19 04:55: White Blood Count 6.0, Red Blood Count 3.13L, Hemoglobin 9.1L, Hematocrit 27.7L , Mean Corpuscular Volume 89, Mean Corpuscular Hemoglobin 29.3, Mean Corpuscular Hemoglobin Concent 33.0, Red Cell Distribution Width 13.8, Platelet Count 171, Mean Platelet Volume 7.8, Neutrophils (%) (Auto) 77.8H, Lymphocytes ( %) (Auto) 10.1L, Monocytes (%) (Auto) 9.7, Eosinophils (%) (Auto) 1.6, Basophils (%) (Auto) 0.8, Sodium Level 146H, Potassium Level 3.4L, Chloride Level 107, Carbon Dioxide Level 32, Anion Gap 8, Blood Urea Nitrogen 33H, Creatinine 2.9H, Estimat Glomerular Filtration Rate , Glucose Level 86, Calcium Level 8.5, Magnesium Level 1.7L Height (Feet): 5 Height (Inches): 2.00 Weight (Pounds): 181 General Appearance: no apparent distress, alert, confused, obese EENT: normal ENT inspection Neck: normal alignment Cardiovascular: normal rate, regular rhythm Respiratory/Chest: lungs clear Abdomen: non tender Extremities: trace edema Neurologic: motor weakness Jose Lemus MD Oct 14, 2019 12:22
[2019-10-14 16:00] VITALS: BP 154/87
--- NOTE | 2019-10-14 17:00 | Consultation ---
DATE OF CONSULTATION: 10/14/2019 CONSULTING PHYSICIAN: David Bosch M.D. CHIEF COMPLAINT: Abdominal pain. HISTORY OF PRESENT ILLNESS: Most of the history per chart. The patient is a very poor historian. She was brought from the intermediate because of fever, sepsis. The patient has history of end-stage renal disease, history of dysphagia with a G-tube, and GI consult requested for evaluation of abdominal pain. PAST MEDICAL HISTORY: 1. Chronic kidney disease. 2. Hypertension. 3. CHF. 4. Dysphagia with a G-tube. 5. History of sepsis. 6. Anemia. 7. Hepatitis C. 8. Pneumonia. 9. Questionable cirrhosis. ALLERGIES: To erythromycin. MEDICATIONS: Please see medication reconciliation list. SOCIAL HISTORY: Currently living in the intermediate. No history of tobacco, alcohol, or IV drug abuse. FAMILY HISTORY: Noncontributory. PAST SURGICAL HISTORY: Positive for hysterectomy in 1963. PHYSICAL EXAMINATION: VITAL SIGNS: Temperature 97.7, pulse is 99, respirations 20, blood pressure is 158/88. HEENT: Normocephalic and atraumatic. Mild pale conjunctivae. NECK: Supple. No evidence of obvious lymphadenopathy. CARDIOVASCULAR: Regular rate and rhythm. Plus S1 and S2. LUNGS: Decreased breath sounds bilaterally, right more than left. ABDOMEN: Obese. The patient had a G-tube in the left upper quadrant. Bowel sounds are present and hypoactive. There is diffuse tenderness to palpation. No rebound. No guarding. No peritoneal sign. EXTREMITIES: No cyanosis. No clubbing. No edema. LABORATORY DATA: White count is 6, hemoglobin 9, hematocrit 27, platelet count is 171. Chem-7 sodium 146, potassium 3.4, BUN is 33, creatinine is 2.9. ASSESSMENT: This is a 73-year-old female with numerous medical problems. From GI standpoint at this time, the patient has abdominal pain, hepatitis C, questionable cirrhosis based on the CT scan. Also has dysphagia with G-tube, anemia, pneumonia. PLAN: We will order an abdominal ultrasound for evaluation of the cirrhosis, for evaluation of the ascites. If the patient has evidence of ascites, we recommend thoracentesis for rule out SBP. In terms of anemia, we are going to order anemia workup including iron panel, B12, folate, and we will correct as needed. Stool for OB also ordered. In terms of abdominal pain, again the differential diagnosis would be SBP if the patient has cirrhosis and ascites. Other causes will be ischemia given the patient is renal patient with CHF, abdominal ischemia is another differential diagnosis. We are going to order lactic acid, amylase, and lipase. Repeat liver function tests for tomorrow. We will make further recommendation as above results are available. I want to thank Dr. Hendricks for this kind referral. David Bosch M.D. DR: STEPHEN JOB#: [id number] CC: Chema Hendricks M.D.
--- NOTE | 2019-10-14 19:18 | NUR ---
HAND-OFF: Report given to Maximilian Fung RN.
--- NOTE | 2019-10-14 19:30 | NUR ---
NURSE NOTES: Received report from ENRIQUE Balderrama. Pt is resting on the bed and awake and confused and agitated. On O2 2L via nasal cannula and SaO2 98% noted. Pt has Rt. IJ Broderick cath and dressing is clean and dry. On running with D5W @ 50cc/hr via pigtail. On NPO. On Purewicks and in placed. Dressing is clean and dry on wound area. On P200 mattress for wound management. Changed position. Pt has G-tube and site is intact. Placed fall precaution. Will continue to care plan.
[2019-10-14 20:00] VITALS: BP 160/88
[2019-10-14] MEDS: Dyna-Hex 2% Top Sol 2oz TOPIC SCH (20:02)
[2019-10-15] VITALS: BP 116/64
[2019-10-15] MEDS: Morphine Sulfate 2mg/ml Inj(IV/IM USE ONLY) IVP PRN ×2 (01:03→09:09)
[2019-10-15 04:00] VITALS: BP 149/85
--- NOTE | 2019-10-15 04:30 | Progress Note ---
DATE: 10/14/2019 CARDIOLOGY PROGRESS NOTE SUBJECTIVE: The patient still has abdominal pain and is requiring morphine for control. No signs of bleeding. Continues on hemodialysis with ultrafiltration. Monitored rhythm, sinus. OBJECTIVE: VITAL SIGNS: Blood pressure 158/88, pulse 99, and respirations 20. LUNGS: Diminished breath sounds. CARDIAC: Regular rhythm and rate. Normal S1, S2 with a 1/6 systolic apical murmur. ABDOMEN: Soft. No focal tenderness noted. EXTREMITIES: There is trace dependent edema. SKIN: Dialysis catheter site on the right chest without skin breakdown or bleeding. LABORATORY DATA: White count 6, hemoglobin 9. Sodium 146, potassium 3.4, BUN 33, creatinine 2.9. Magnesium 1.7. IMPRESSION: 1. Hypertensive heart disease with elevated blood pressure trend. 2. Acute on chronic diastolic congestive heart failure. 3. Recovering sepsis and resolved shock. 4. Protein-calorie malnutrition now with G-tube. 5. Dehydration. 6. Hypernatremia. 7. Hypokalemia. 8. Hypomagnesemia. PLAN: 1. Advancing antihypertensive therapy. 2. Continuing hemodialysis with ultrafiltration. 3. Antimicrobials per Infectious Disease career development consultant. 4. Remains high risk. Lance Rivas M.D. DR: ELVIA JOB#: [id number] CC:
[2019-10-15 04:34] LABS: HEMATOCRIT 29.7 % (37.0-47.0); HEMOGLOBIN 9.8 G/DL (12.0-16.0); MEAN CORPUSCULAR VOLUME 89 FL (80-99); PLATELET COUNT 248 K/UL (150-450); RED BLOOD COUNT 3.35 M/UL (4.20-5.40); RED CELL DISTRIBUTION WIDTH 13.9 % (11.6-14.8); WHITE BLOOD COUNT 11.9 K/UL (4.8-10.8)
[2019-10-15] MEDS: Levothyroxine 125mcg tab GT SCH (05:47)
[2019-10-15] MEDS: HydrALAZINE 50mg tab GT SCH ×3 (05:47→21:04)
[2019-10-15] MEDS ORDERED: DiphenhydrAMINE 25mg/10ml Elixir GT PRN (06:15)
[2019-10-15 06:21] LABS: AMMONIA 42 umol/L (11-32)
--- NOTE | 2019-10-15 06:35 | NUR ---
NURSE NOTES: Dr. Bosch visited and assessed Pt and ordered NPO for paracentesis. Carried out order.
[2019-10-15 06:38] LABS: ALANINE AMINOTRANSFERASE 58 U/L (12-78); ALBUMIN/GLOBULIN RATIO 0.4 (1.0-2.7); ALKALINE PHOSPHATASE 457 U/L (46-116); AMYLASE 96 U/L (25-115); ANION GAP 11 mmol/L (5-15); ASPARTATE AMINO TRANSFERASE 126 U/L (15-37); BILIRUBIN,TOTAL 3.8 MG/DL (0.2-1.0); BLOOD UREA NITROGEN 30 mg/dL (7-18); CALCIUM 8.3 MG/DL (8.5-10.1); CARBON DIOXIDE 28 MMOL/L (21-32); CHLORIDE 106 MMOL/L (98-107); POTASSIUM 4.2 MMOL/L (3.5-5.1); SODIUM 145 MMOL/L (136-145)
--- NOTE | 2019-10-15 06:38 | General Progress Note ---
Assessment/Plan Status: stable Assessment/Plan: 1. Chronic kidney disease. 2. Hypertension. 3. CHF. 4. Dysphagia with a G-tube. 5. History of sepsis. 6. Anemia. 7. Hepatitis C. 8. Pneumonia. 9. cirrhosis. 10. gallstones us reviewed>>> ordered paracentesis to r/o SBP abx GTF post paracentesis abx anemia work up GI procedures on hold for now Subjective Allergies: Coded Allergies: ERYTHROMYCIN BASE (Unverified Allergy, Intermediate, 07/14/19) Per patient not allergic to medications or food Objective Last 24 Hour Vital Signs Date Time Temp Pulse Resp B/P (MAP) Pulse Ox O2 Delivery O2 Flow Rate FiO2 10/15/19 05:47 156/83 10/15/19 04:00 Nasal Cannula 2.0 10/15/19 04:00 115 10/15/19 04:00 98.1 120 20 149/85 (106) 96 10/15/19 00:00 111 10/15/19 00:00 Nasal Cannula 2.0 10/15/19 00:00 98.1 112 20 116/64 (81) 98 10/14/19 22:00 112/84 10/14/19 20:16 98 160/88 10/14/19 20:00 97.7 98 20 160/88 (112) 98 10/14/19 20:00 Nasal Cannula 2.0 10/14/19 19:39 99 10/14/19 18:18 90 154/87 10/14/19 16:00 Nasal Cannula 2.0 10/14/19 16:00 97.7 92 20 154/87 (109) 98 10/14/19 16:00 90 10/14/19 15:02 155/80 10/14/19 12:00 96 10/14/19 12:00 97.9 103 24 150/82 (104) 95 10/14/19 12:00 Nasal Cannula 2.0 10/14/19 08:13 99 158/88 10/14/19 08:12 99 158/88 10/14/19 08:00 Nasal Cannula 2.0 10/14/19 08:00 107 10/14/19 08:00 97.7 99 20 158/88 (111) 98 Intake and Output 10/14/19 10/15/19 19:00 07:00 Intake Total 410 ml 500 ml Output Total 800 ml 900 ml Balance -390 ml -400 ml Intake Free Water 100 ml IV Total 310 ml 500 ml Output Urine Total 800 ml 900 ml # Voids 1 # Bowel Movements 2 Laboratory Tests 10/15/19 03:40: White Blood Count 11.9#H, Red Blood Count 3.35L, Hemoglobin 9.8L, Hematocrit 29.7L, Mean Corpuscular Volume 89, Mean Corpuscular Hemoglobin 29.4, Mean Corpuscular Hemoglobin Concent 33.2, Red Cell Distribution Width 13.9, Platelet Count 248, Mean Platelet Volume 7.8, Neutrophils (%) (Auto) , Lymphocytes (%) ( Auto) , Monocytes (%) (Auto) , Eosinophils (%) (Auto) , Basophils (%) (Auto) , Sodium Level [Pending], Potassium Level [Pending], Chloride Level [Pending], Carbon Dioxide Level [Pending], Blood Urea Nitrogen [Pending], Creatinine [ Pending], Estimat Glomerular Filtration Rate [Pending], Glucose Level [Pending] , Lactic Acid Level [Pending], Calcium Level [Pending], Iron Level [Pending], Unsaturated Iron Binding [Pending], Total Bilirubin [Pending], Aspartate Amino Transf (AST/SGOT) [Pending], Alanine Aminotransferase (ALT/SGPT) [Pending], Alkaline Phosphatase [Pending], Ammonia 42H, Total Protein [Pending], Albumin [ Pending], Globulin [Pending], Amylase Level [Pending], Lipase [Pending], Folate [Pending] Height (Feet): 5 Height (Inches): 2.00 Weight (Pounds): 182 General Appearance: alert EENT: normal ENT inspection Neck: supple Cardiovascular: normal rate Respiratory/Chest: decreased breath sounds Abdomen: soft, hypoactive bowel sounds, tender, other - GT in place Extremities: non-tender David Bosch MD Oct 15, 2019 06:38
[2019-10-15 06:40] LABS: BILIRUBIN,DIRECT 3.3 MG/DL (0.0-0.3)
[2019-10-15 06:44] LABS: % IRON SATURATION 7 % (15-50); IRON 10 ug/dL (50-175); TOTAL IRON BINDING CAPACITY 137 ug/dL (250-450)
--- NOTE | 2019-10-15 07:45 | NUR ---
HAND-OFF: Report given to ENRIQUE [place]. Pt is sleeping on the bed. No sign of acute cardio/respiratory distress noted.
[2019-10-15 08:00] VITALS: BP 165/77
--- NOTE | 2019-10-15 08:43 | Infectious Diseases Prog Note ---
Assessment/Plan Assessment/Plan IMPRESSION: 1. E, coli sepsis 2. pneumonia in right lower lobe. 3. Acute renal failure. 4. Chronic kidney disease. 5. Hyperkalemia, corrected 6. Hypernatremia, corrected 7. Hypoxemia. 8. Anemia. 9. Thrombocytopenia. 10. Hypothyroidism. 11. Recent MRSA sepsis. 12. Parkinson disease. 13. Dementia. 14. Cirrhosis 15. Portal hypertension 16. Cholelithiasis RECOMMENDATION: Continue with Meropenem X 1 day Will have paracentesis Subjective ROS Limited/Unobtainable: Yes Constitutional: Denies: fever Neurologic: Reports: other - agitated Allergies: Coded Allergies: ERYTHROMYCIN BASE (Unverified Allergy, Intermediate, 07/14/19) Per patient not allergic to medications or food Objective Vital Signs Last 24 Hour Vital Signs Date Time Temp Pulse Resp B/P (MAP) Pulse Ox O2 Delivery O2 Flow Rate FiO2 10/15/19 05:47 156/83 10/15/19 04:00 Nasal Cannula 2.0 10/15/19 04:00 115 10/15/19 04:00 98.1 120 20 149/85 (106) 96 10/15/19 00:00 111 10/15/19 00:00 Nasal Cannula 2.0 10/15/19 00:00 98.1 112 20 116/64 (81) 98 10/14/19 22:00 112/84 10/14/19 20:16 98 160/88 10/14/19 20:00 97.7 98 20 160/88 (112) 98 10/14/19 20:00 Nasal Cannula 2.0 10/14/19 19:39 99 10/14/19 18:18 90 154/87 10/14/19 16:00 Nasal Cannula 2.0 10/14/19 16:00 97.7 92 20 154/87 (109) 98 10/14/19 16:00 90 10/14/19 15:02 155/80 10/14/19 12:00 96 10/14/19 12:00 97.9 103 24 150/82 (104) 95 10/14/19 12:00 Nasal Cannula 2.0 Height (Feet): 5 Height (Inches): 2.00 Weight (Pounds): 182 HEENT: mucous membranes moist Respiratory/Chest: lungs clear Cardiovascular: tachycardia, other - RIJ Broderick Abdomen: distended, other - GT in place Extremities: no edema Neurologic/Psychiatric: alert, disoriented Laboratory Tests Test 10/15/19 03:40 White Blood Count 11.9 K/UL (4.8-10.8) #H Red Blood Count 3.35 M/UL (4.20-5.40) L Hemoglobin 9.8 G/DL (12.0-16.0) L Hematocrit 29.7 % (37.0-47.0) L Mean Corpuscular Volume 89 FL (80-99) Mean Corpuscular Hemoglobin 29.4 PG (27.0-31.0) Mean Corpuscular Hemoglobin Concent 33.2 G/DL (32.0-36.0) Red Cell Distribution Width 13.9 % (11.6-14.8) Platelet Count 248 K/UL (150-450) Mean Platelet Volume 7.8 FL (6.5-10.1) Neutrophils (%) (Auto) % (45.0-75.0) Lymphocytes (%) (Auto) % (20.0-45.0) Monocytes (%) (Auto) % (1.0-10.0) Eosinophils (%) (Auto) % (0.0-3.0) Basophils (%) (Auto) % (0.0-2.0) Sodium Level 145 MMOL/L (136-145) Potassium Level 4.2 MMOL/L (3.5-5.1) Chloride Level 106 MMOL/L (98-107) Carbon Dioxide Level 28 MMOL/L (21-32) Anion Gap 11 mmol/L (5-15) Blood Urea Nitrogen 30 mg/dL (7-18) H Creatinine 3.0 MG/DL (0.55-1.30) H Estimat Glomerular Filtration Rate mL/min (>60) Glucose Level 91 MG/DL (74-106) Lactic Acid Level 0.90 mmol/L (0.4-2.0) Calcium Level 8.3 MG/DL (8.5-10.1) L Iron Level 10 ug/dL (50-175) L Total Iron Binding Capacity 137 ug/dL (250-450) L Percent Iron Saturation 7 % (15-50) L Unsaturated Iron Binding 127 ug/dL (112-346) Total Bilirubin 3.8 MG/DL (0.2-1.0) H Direct Bilirubin 3.3 MG/DL (0.0-0.3) H Aspartate Amino Transf (AST/SGOT) 126 U/L (15-37) H Alanine Aminotransferase (ALT/SGPT) 58 U/L (12-78) Alkaline Phosphatase 457 U/L (46-116) H Ammonia 42 umol/L (11-32) H Total Protein 6.6 G/DL (6.4-8.2) Albumin 2.0 G/DL (3.4-5.0) L Globulin 4.6 g/dL Albumin/Globulin Ratio 0.4 (1.0-2.7) L Amylase Level 96 U/L (25-115) Lipase 343 U/L (73-393) Folate 9.0 NG/ML (8.6-58.9) Current Medications Medications (Trade) Dose Ordered Sig/Jonathan Route PRN Reason Start Time Stop Time Status Last Admin Dose Admin Acetaminophen (Tylenol) 650 mg Q4H PRN GT Mild Pain/Temp > 100.5 10/07/19 20:30 11/06/19 20:29 10/13/19 14:03 Amlodipine Besylate (Norvasc) 5 mg BID GT 10/14/19 18:00 11/13/19 17:59 10/14/19 18:18 Chlorhexidine Gluconate (Meredith-Hex 2%) 1 applic DAILY@2000 TOPIC 10/10/19 20:00 11/09/19 19:59 10/14/19 20:02 Dextrose 1,000 ml @ 50 mls/hr Q20H IV 10/14/19 12:30 11/13/19 12:29 10/14/19 15:01 Diphenhydramine HCl (Benadryl) 25 mg Q8H PRN GT Itching 10/15/19 06:15 11/14/19 06:14 Hydralazine HCl (Apresoline) 100 mg Q8HR GT 10/07/19 22:00 11/06/19 21:59 10/15/19 05:47 Lansoprazole (Prevacid) 30 mg DAILY GT 10/08/19 09:00 11/07/19 08:59 10/14/19 08:12 Levothyroxine Sodium (Synthroid) 125 mcg ACBREAKFAST GT 10/08/19 06:30 11/07/19 06:29 10/15/19 05:47 Meropenem 500 mg/ Sodium Chloride 55 ml @ 110 mls/hr Q24H IVPB 10/10/19 11:00 10/16/19 23:59 10/14/19 12:17 Metoprolol Tartrate (Lopressor) 25 mg Q12HR GT 10/12/19 21:00 11/09/19 01:44 10/14/19 20:16 Morphine Sulfate (Morphine Sulfate) 1 mg Q4H PRN IVP SEVERE PAIN 10/13/19 20:45 10/20/19 20:44 10/15/19 01:03 Ruperto Freedman MD Oct 15, 2019 08:43
--- NOTE | 2019-10-15 09:02 | General Progress Note ---
Assessment/Plan Problem List: (1) Sepsis ICD Codes: A41.9 - Sepsis, unspecified organism SNOMED: 52926883 (2) Lactic acid acidosis ICD Codes: E87.2 - Acidosis SNOMED: 73019395 (3) Anemia ICD Codes: D64.9 - Anemia, unspecified SNOMED: 265526429 (4) Alkalosis, metabolic ICD Codes: E87.3 - Alkalosis, metabolic SNOMED: 3316694 (5) Acidosis ICD Codes: E87.2 - Acidosis SNOMED: 67936631 (6) UTI (urinary tract infection) ICD Codes: N39.0 - Urinary tract infection, site not specified SNOMED: 53863965 (7) Acute renal failure (ARF) ICD Codes: N17.9 - Acute kidney failure, unspecified SNOMED: 87560847 Status: stable Assessment/Plan: iv abx follow up cultures wound care HD per renal monitor bp- may need to resume bp meds monitor for bleeding transfuse as needed gi follow up paracentesis Subjective ROS Limited/Unobtainable: No Constitutional: Reports: no symptoms HEENT: Reports: no symptoms Cardiovascular: Reports: no symptoms Respiratory: Reports: no symptoms Gastrointestinal/Abdominal: Reports: abdominal pain Genitourinary: Reports: no symptoms Neurologic/Psychiatric: Reports: pre-existing deficit Endocrine: Reports: no symptoms Hematologic/Lymphatic: Reports: no symptoms Allergies: Coded Allergies: ERYTHROMYCIN BASE (Unverified Allergy, Intermediate, 07/14/19) Per patient not allergic to medications or food All Systems: reviewed and negative except above Subjective still with abd pain. slightly improved with MS. GI noted. paracentesis ordered. no fever or chills. tolerating feeds. Objective Last 24 Hour Vital Signs Date Time Temp Pulse Resp B/P (MAP) Pulse Ox O2 Delivery O2 Flow Rate FiO2 10/15/19 08:00 99.9 118 23 165/77 (106) 96 10/15/19 05:47 156/83 10/15/19 04:00 Nasal Cannula 2.0 10/15/19 04:00 115 10/15/19 04:00 98.1 120 20 149/85 (106) 96 10/15/19 00:00 111 10/15/19 00:00 Nasal Cannula 2.0 10/15/19 00:00 98.1 112 20 116/64 (81) 98 10/14/19 22:00 112/84 10/14/19 20:16 98 160/88 10/14/19 20:00 97.7 98 20 160/88 (112) 98 10/14/19 20:00 Nasal Cannula 2.0 10/14/19 19:39 99 10/14/19 18:18 90 154/87 10/14/19 16:00 Nasal Cannula 2.0 10/14/19 16:00 97.7 92 20 154/87 (109) 98 10/14/19 16:00 90 10/14/19 15:02 155/80 10/14/19 12:00 96 10/14/19 12:00 97.9 103 24 150/82 (104) 95 10/14/19 12:00 Nasal Cannula 2.0 Intake and Output 10/14/19 10/15/19 19:00 07:00 Intake Total 410 ml 550 ml Output Total 800 ml 900 ml Balance -390 ml -350 ml Intake Free Water 100 ml IV Total 310 ml 550 ml Output Urine Total 800 ml 900 ml # Voids 1 # Bowel Movements 2 Laboratory Tests 10/15/19 03:40: White Blood Count 11.9#H, Red Blood Count 3.35L, Hemoglobin 9.8L, Hematocrit 29.7L, Mean Corpuscular Volume 89, Mean Corpuscular Hemoglobin 29.4, Mean Corpuscular Hemoglobin Concent 33.2, Red Cell Distribution Width 13.9, Platelet Count 248, Mean Platelet Volume 7.8, Neutrophils (%) (Auto) , Lymphocytes (%) ( Auto) , Monocytes (%) (Auto) , Eosinophils (%) (Auto) , Basophils (%) (Auto) , Sodium Level 145, Potassium Level 4.2, Chloride Level 106, Carbon Dioxide Level 28, Anion Gap 11, Blood Urea Nitrogen 30H, Creatinine 3.0H, Estimat Glomerular Filtration Rate , Glucose Level 91, Lactic Acid Level 0.90, Calcium Level 8.3L, Iron Level 10L, Total Iron Binding Capacity 137L, Percent Iron Saturation 7L, Unsaturated Iron Binding 127, Total Bilirubin 3.8H, Direct Bilirubin 3.3H, Aspartate Amino Transf (AST/SGOT) 126H, Alanine Aminotransferase (ALT/SGPT) 58, Alkaline Phosphatase 457H, Ammonia 42H, Total Protein 6.6, Albumin 2.0L, Globulin 4.6, Albumin/Globulin Ratio 0.4L, Amylase Level 96, Lipase 343, Folate 9.0 Height (Feet): 5 Height (Inches): 2.00 Weight (Pounds): 182 Objective General Appearance: WD/WN, alert Neck: supple Cardiovascular: normal rate, regular rhythm Respiratory/Chest: chest wall non-tender, lungs clear, normal breath sounds Abdomen: normal bowel sounds, soft, no organomegaly, tender Edema: no edema noted Arm (L), no edema noted Arm (R), no edema noted Leg (L), no edema noted Leg (R), no edema noted Pedal (L), no edema noted Pedal (R), no edema noted Generalized Chema Hendricks MD Oct 15, 2019 09:02
[2019-10-15 12:00] VITALS: BP 138/72
[2019-10-15] MEDS: Meropenem 500 MG in NS 55 ML IVPB SCH (12:20)
--- NOTE | 2019-10-15 12:20 | Pre-Procedure Note/Attestation ---
Pre-Procedure Note/Attestation Complete Prior to Procedure Planned Procedure: not applicable Procedure Narrative: paracentesis Indications for Procedure Pre-Operative Diagnosis: ascites Attestation I attest that I discussed the nature of the procedure; its benefits; risks and complications; and alternatives (and the risks and benefits of such alternatives ), prior to the procedure, with the patient (or the patient's legal entry level sales representative). I attest that, if there was a reasonable possibility of needing a blood transfusion, the patient (or the patient's legal entry level sales representative) was given the [facility] standardized written summary, pursuant to the [place] Jakub Blood Safety Act ([place] Health and Safety Code # 1645, as amended). I attest that I re-evaluated the patient just prior to the surgery and that there has been no change in the patient's H&P, except as documented below: Discussed by phone with pt's. daughter at 1130 Garry Barillas MD Oct 15, 2019 12:20
--- NOTE | 2019-10-15 12:29 | NUR ---
RD ASSESSMENT & RECOMMENDATIONS SEE CARE ACTIVITY FOR COMPLETE ASSESSMENT DAILY ESTIMATED NEEDS: Needs based on CKD IV, Wound 57.7kg abw 25-30 kcals/kg 6946-7055 total kcals (Without HD:0.6-1) (With HD: 1.25-1.8) g protein/kg (Without HD: 35-58) (With HD: 72-104) g total protein Fluid per MD NUTRITION DIAGNOSIS: 1) Altered nutrition related lab values r/t JJ on CKD 4 as evidenced by elev creat (6.8 -> 3.0 improved), elev BUN (119->38 improved), elev K (5.3-> wnl). elev Na (158 -> wnl), s/p placement of Broderick cath, HD x1. 2) Swallowing difficulty r/t dysphagia as evidenced by GT dep. CURRENT TF: NEPRO @35ml/hr x22 hrs- NPO for paracentesis ENTERAL NUTRITION RECOMMENDATIONS: WITH CONTINUED HD: Nepro @ 42ml/hr x 22 hrs to provide 924ml, 1663kcal, 75g prot, 672ml free water - W/ continued HD, rec to increase goal rate to 42ml/hr x 22 hrs (hold 1 hr before and after Synthroid med) - HOB over 30 degrees/ water flush per MD WITHOUT HD, maintain current TF of Nepro @ 35ml/hr x 22 hrs to provide 770ml, 1386 kcal, 62g pro, 560ml free H2o -> will meet 96% est kcal and 107% est pro needs ADDITIONAL RECOMMENDATIONS: 1) Calibrated bedscale wt for accurate CBW Bed scale reads 216.7# w/ EMR wt of 185# 2) Monitor renal fxn, monitor for continuation of HD -> s/p Broderick cath, s/p HD x1. now w/ improved renal fxn -> Rec to increase TF goal rate w/ continued HD 3) Monitor lytes, check phos and mag level 4) Wound healing: add Nephrovite x 1 + Kael 1pkt BID
--- NOTE | 2019-10-15 13:15 | NUR ---
CASE MANAGEMENT:REVIEW 10/15/19 SI: SEPSIS. BACTEREMIA AC/CHR RENAL FAILURE......ESRD ON HD. CHRONIC LIVER DZ 99.9 118 23 165/77 96% on 2l/nc WBC+11.9 BUN+30 CR+3.0 IS: IV MEROPENEM Q12 IV VENOFER QHS IVF@50/HR NORVASC GT BID LOPRESSOR GT Q12 : STEP DOWN UNIT DCP; FROM CV TERRACE PLAN: PARACENTESIS FOR TODAY
--- NOTE | 2019-10-15 14:00 | NUR ---
NURSE NOTES:PT S/P U.S PARACENTESIS ,235ML OF REMOVED BY DR BLACKWOOD. PT TOLERATED WELL PROCEDURE. SMALL DSG ON RT LOWER ABD ,DRY & INTACT NOTED .NO ACUTE DISTRESS NOTED AT THIS TIME. WILL CONT TO MONITOR.
--- NOTE | 2019-10-15 14:11 | Brief Operative Note ---
Immediate Post Operative Note Operative Note Pre-op Diagnosis: ascites Procedure: paracentesis Post-op Diagnosis: same as pre-op Surgeon: Coco Caraballo Anesthesia: local Specimen: yes - 50 ml fluid sent to lab Complications: none Condition: unstable Fluids: none Implant(s) used?: No Garry Caraballo MD Oct 15, 2019 14:11
--- NOTE | 2019-10-15 14:17 | Diagnostic Imaging Report ---
Indications: Ascites Technique: Ultrasound used to localize optimal puncture site. Sterile prepping and draping right lower quadrant. Local anesthesia with 1% lidocaine. Under real-time ultrasound guidance, puncture peritoneal space using paracentesis needle. Stylet removed. Catheter placed to vacuum bottle suction. Total 0.23 liters of fluid aspirated. Patient tolerated procedure well, without immediate complication. Findings: Followup sonography demonstrates complete resolution of peritoneal fluid. Impression: Successful ultrasound-guided paracentesis, yielding 0.23 liters of fluid
--- NOTE | 2019-10-15 15:48 | NUR ---
NURSE NOTES:WOUND CARE FOLLOW-UP NOTES:Moisture Intertrigo R breast resolved. Skin fold of R breast clean and dry. L breast intertrigo resolving. Less erythema and less denuded. Skin folds of abd , bilat groin folds and mons pubis erythema resolved. Sacral pressure injury resolving. #3 small wounds previously noted on initial assessment to sacrum are now moist and viable with surrounding non-blanching erythema without induration. Pt denied tenderness when affected area minimally palpated. Both heels are dry and firm without erythema. No new skin concerns noted. Tx.Plan: Apply Moisture Barrier Paste to skin folds of both breasts, abd folds and groin with each incontinence care. Apply Moisture barrier to Sacrum. Cover with Optifoam drsg. Change every 3 days and prn. Apply [place] Skin Barrier to each heel. Cover each heel with Optifoam drsg. Change every 7 days and prn. Reposition at ;east every 2 hours or as tolerated. Off-load heels with pillow.
[2019-10-15 16:00] VITALS: BP 150/84
--- NOTE | 2019-10-15 16:04 | Nephrology Progress Note ---
Assessment/Plan Problem List: (1) Healthcare-associated pneumonia (2) Anemia in chronic kidney disease (3) CKD (chronic kidney disease) stage 5, GFR less than 15 ml/min (4) Abdominal pain in female (5) CHF exacerbation (6) Sepsis (7) Ascites (8) Cirrhosis Plan nonoliguric, hold off dialysis, replace K, cont rxx esbl sepsis, US cholelithiasis--might be source of sepsis, also cirrhosis and ascites, hope to start feeding soon, creat lower, anemia Rx epogen Subjective Constitutional: Reports: weakness HEENT: Reports: no symptoms Genitourinary: Reports: incontinence Neurologic/Psychiatric: Reports: pre-existing deficit Subjective some mild abd pain Objective Objective Last 24 Hour Vital Signs Date Time Temp Pulse Resp B/P (MAP) Pulse Ox O2 Delivery O2 Flow Rate FiO2 10/15/19 15:41 150/84 10/15/19 12:00 Nasal Cannula 2.0 10/15/19 12:00 97.7 96 22 138/72 (94) 96 10/15/19 12:00 94 10/15/19 09:39 99.9 10/15/19 09:10 118 165/77 10/15/19 09:10 118 165/77 10/15/19 08:00 Nasal Cannula 2.0 10/15/19 08:00 99.9 118 23 165/77 (106) 96 10/15/19 08:00 111 10/15/19 05:47 156/83 10/15/19 04:00 Nasal Cannula 2.0 10/15/19 04:00 115 10/15/19 04:00 98.1 120 20 149/85 (106) 96 10/15/19 00:00 111 10/15/19 00:00 Nasal Cannula 2.0 10/15/19 00:00 98.1 112 20 116/64 (81) 98 10/14/19 22:00 112/84 10/14/19 20:16 98 160/88 10/14/19 20:00 97.7 98 20 160/88 (112) 98 10/14/19 20:00 Nasal Cannula 2.0 10/14/19 19:39 99 10/14/19 18:18 90 154/87 Intake and Output 10/14/19 10/15/19 18:59 06:59 Intake Total 360 ml 600 ml Output Total 800 ml 900 ml Balance -440 ml -300 ml Intake Free Water 100 ml IV Total 260 ml 600 ml Output Urine Total 800 ml 900 ml # Voids 1 # Bowel Movements 2 Laboratory Tests 10/15/19 03:40: White Blood Count 11.9#H, Red Blood Count 3.35L, Hemoglobin 9.8L, Hematocrit 29.7L, Mean Corpuscular Volume 89, Mean Corpuscular Hemoglobin 29.4, Mean Corpuscular Hemoglobin Concent 33.2, Red Cell Distribution Width 13.9, Platelet Count 248, Mean Platelet Volume 7.8, Neutrophils (%) (Auto) , Lymphocytes (%) ( Auto) , Monocytes (%) (Auto) , Eosinophils (%) (Auto) , Basophils (%) (Auto) , Sodium Level 145, Potassium Level 4.2, Chloride Level 106, Carbon Dioxide Level 28, Anion Gap 11, Blood Urea Nitrogen 30H, Creatinine 3.0H, Estimat Glomerular Filtration Rate , Glucose Level 91, Lactic Acid Level 0.90, Calcium Level 8.3L, Iron Level 10L, Total Iron Binding Capacity 137L, Percent Iron Saturation 7L, Unsaturated Iron Binding 127, Total Bilirubin 3.8H, Direct Bilirubin 3.3H, Aspartate Amino Transf (AST/SGOT) 126H, Alanine Aminotransferase (ALT/SGPT) 58, Alkaline Phosphatase 457H, Ammonia 42H, Total Protein 6.6, Albumin 2.0L, Globulin 4.6, Albumin/Globulin Ratio 0.4L, Amylase Level 96, Lipase 343, Folate 9.0 10/15/19 12:27: Body Fluid Source [Pending], Body Fluid Volume [Pending], Body Fluid Appearance [Pending], Body Fluid RBC [Pending], Body Fluid Total Nucleated Cells [Pending] , Body Fluid Polynuclear WBCs (%) [Pending], Body Fluid Mononuclear WBCs (%) [ Pending], Body Fluid Mesothelial Cells (%) [Pending], Body Fluid Total Protein [ Pending] Height (Feet): 5 Height (Inches): 2.00 Weight (Pounds): 182 General Appearance: confused, obese EENT: normal ENT inspection Neck: normal alignment Cardiovascular: normal rate, regular rhythm Respiratory/Chest: lungs clear Abdomen: soft Neurologic: motor weakness, disoriented Jose Lemus MD Oct 15, 2019 16:03
--- NOTE | 2019-10-15 18:59 | Surgery Progress Note ---
Surgery Progress Note Subjective Symptoms: other Objective Last 24 Hour Vital Signs Date Time Temp Pulse Resp B/P (MAP) Pulse Ox O2 Delivery O2 Flow Rate FiO2 10/15/19 18:46 96 150/84 10/15/19 16:00 Nasal Cannula 2.0 10/15/19 16:00 98.1 102 26 150/84 (106) 95 10/15/19 16:00 96 10/15/19 15:41 150/84 10/15/19 12:00 Nasal Cannula 2.0 10/15/19 12:00 97.7 96 22 138/72 (94) 96 10/15/19 12:00 94 10/15/19 09:39 99.9 10/15/19 09:10 118 165/77 10/15/19 09:10 118 165/77 10/15/19 08:00 Nasal Cannula 2.0 10/15/19 08:00 99.9 118 23 165/77 (106) 96 10/15/19 08:00 111 10/15/19 05:47 156/83 10/15/19 04:00 Nasal Cannula 2.0 10/15/19 04:00 115 10/15/19 04:00 98.1 120 20 149/85 (106) 96 10/15/19 00:00 111 10/15/19 00:00 Nasal Cannula 2.0 10/15/19 00:00 98.1 112 20 116/64 (81) 98 10/14/19 22:00 112/84 10/14/19 20:16 98 160/88 10/14/19 20:00 97.7 98 20 160/88 (112) 98 10/14/19 20:00 Nasal Cannula 2.0 10/14/19 19:39 99 I&O Intake and Output 10/14/19 10/15/19 18:59 06:59 Intake Total 360 ml 600 ml Output Total 800 ml 900 ml Balance -440 ml -300 ml Intake Free Water 100 ml IV Total 260 ml 600 ml Output Urine Total 800 ml 900 ml # Voids 1 # Bowel Movements 2 Dressing: saturated Wound: other Drains: other Cardiovascular: RSR Respiratory: decreased breath sounds Abdomen: soft, present bowel sounds Extremities: no edema, no cyanosis Laboratory Tests Test 10/15/19 03:40 10/15/19 12:27 White Blood Count 11.9 K/UL (4.8-10.8) #H Red Blood Count 3.35 M/UL (4.20-5.40) L Hemoglobin 9.8 G/DL (12.0-16.0) L Hematocrit 29.7 % (37.0-47.0) L Mean Corpuscular Volume 89 FL (80-99) Mean Corpuscular Hemoglobin 29.4 PG (27.0-31.0) Mean Corpuscular Hemoglobin Concent 33.2 G/DL (32.0-36.0) Red Cell Distribution Width 13.9 % (11.6-14.8) Platelet Count 248 K/UL (150-450) Mean Platelet Volume 7.8 FL (6.5-10.1) Neutrophils (%) (Auto) % (45.0-75.0) Lymphocytes (%) (Auto) % (20.0-45.0) Monocytes (%) (Auto) % (1.0-10.0) Eosinophils (%) (Auto) % (0.0-3.0) Basophils (%) (Auto) % (0.0-2.0) Sodium Level 145 MMOL/L (136-145) Potassium Level 4.2 MMOL/L (3.5-5.1) Chloride Level 106 MMOL/L (98-107) Carbon Dioxide Level 28 MMOL/L (21-32) Anion Gap 11 mmol/L (5-15) Blood Urea Nitrogen 30 mg/dL (7-18) H Creatinine 3.0 MG/DL (0.55-1.30) H Estimat Glomerular Filtration Rate mL/min (>60) Glucose Level 91 MG/DL (74-106) Lactic Acid Level 0.90 mmol/L (0.4-2.0) Calcium Level 8.3 MG/DL (8.5-10.1) L Iron Level 10 ug/dL (50-175) L Total Iron Binding Capacity 137 ug/dL (250-450) L Percent Iron Saturation 7 % (15-50) L Unsaturated Iron Binding 127 ug/dL (112-346) Total Bilirubin 3.8 MG/DL (0.2-1.0) H Direct Bilirubin 3.3 MG/DL (0.0-0.3) H Aspartate Amino Transf (AST/SGOT) 126 U/L (15-37) H Alanine Aminotransferase (ALT/SGPT) 58 U/L (12-78) Alkaline Phosphatase 457 U/L (46-116) H Ammonia 42 umol/L (11-32) H Total Protein 6.6 G/DL (6.4-8.2) Albumin 2.0 G/DL (3.4-5.0) L Globulin 4.6 g/dL Albumin/Globulin Ratio 0.4 (1.0-2.7) L Amylase Level 96 U/L (25-115) Lipase 343 U/L (73-393) Folate 9.0 NG/ML (8.6-58.9) Body Fluid Source Paracentesis Body Fluid Volume 27 mL Body Fluid Appearance Hazy (Clear) Body Fluid RBC 407 /CUMM Body Fluid Total Nucleated Cells 291 /CUMM Body Fluid Polynuclear WBCs (%) 54 % Body Fluid Mononuclear WBCs (%) 41 % Body Fluid Mesothelial Cells (%) 5 % Body Fluid Total Protein Pending Plan Problems: (1) Lactic acid acidosis Assessment & Plan: Patient noted to have leukocytosis, fevers, abdominal wall cellulitis, lactic acidosis. Abnormal labs. Etiology and work-up continuing currently with microbiology pending and on IV antibiotics Local care being provided. Imaging noted Pt presented on admission with partially opened DTPI Sacrum.Base of wound extends from sacrum to R and L buttocks and is maroon with #3 small openings , each with slough at mid sacral area. Pt grimaced when affected area minimally palpated. Non-blanching erythema noted to R and L ischial regions. Moisture Intertrigo with surrounding erythema and denuded skin noted to R and L breasts. Mild odor noted each skin folds of breasts.Small amt sanguineous exudate noted from L breast. Mons pubis,labia majora, and medial aspects of both upper thighs erythematous and denuded. R ad L heels are firm and blanchable. Tx.Plan: [place] Liquid Skin Repair to R and L breasts(x1 application) applied to folds of each breasts. Apply Moisture Barrier paste to perineum with each incontinence care. Apply Moisture Barrier Paste to Sacrum.Cover with Optifoam drsgs. Change every 3 days and prn. APM/SIM Mattress overlay. Reposition at least every 2 hours or as tolerated. Off-load heels with pillow. (2) Sepsis Assessment & Plan: 73-year-old female with sepsis, lactic acidosis, renal insufficiency, cellulitis, leukocytosis. Febrile, hemodynamically stable, exam as above Coordinated with radiology for urgent temporary even as catheter insertion. Placed today and will discuss with nephrology for dialysis Antibiotics as per infectious disease Trend labs IV fluid resuscitation Dense consolidation in the posterior right lower lobe, likely pneumonia Liquid stool in the proximal colon, could indicate diarrheal illness Trace free intraperitoneal fluid Slight hepatic atrophy and surface nodularity raising possibility of cirrhotic change Small lesser sac varices and splenomegaly raises possibility of portal hypertension Pericardial effusion, also evident previously abd wall cellulitis superficial and lumps likely prior injection sites and not infected. unlikely etiology of sepsis. We will follow with recommendations Thank you for allowing me to participate in patient care Kirk mE Oct 15, 2019 18:59
--- NOTE | 2019-10-15 19:15 | NUR ---
HAND-OFF: Report given to .BEATA NUNEZ.
--- NOTE | 2019-10-15 19:25 | NUR ---
NURSE NOTES: Received report from ENRIQUE Luke, pt. in bed awake, pt. is A/O x's 1 to name, no signs or symptoms of acute cardiac or respiratory distress noted, bed alarm on, side rails up x's3 and safety brakes engaged, pt. appears to be resting comfortably and no distress noted, pt. appears to be tolerating 2L NC - no distress noted, Nephro running via g tube at 20cc/hr- goal is at 30cc/hr- no residual noted, pure wick intact and set to suction- rt. IJ intact running D5W at 50cc/hr- safety measure continued, will continue with plan of care. Addendum: 10/15/19 at 2243 by SOFIE SOLIZ RN RN correction to message Nephro goal is at 35cc/hr- not 30cc/hr.
[2019-10-15 20:00] VITALS: BP 138/75
[2019-10-15] MEDS ORDERED: Iron Sucrose 100 MG in NS 55 ML IV SCH (21:00)
[2019-10-15] MEDS ORDERED: Meropenem 500 MG in NS 55 ML IVPB SCH (21:00)
[2019-10-15] MEDS: Dyna-Hex 2% Top Sol 2oz TOPIC SCH (21:09)
[2019-10-16] VITALS: BP 140/80
--- NOTE | 2019-10-16 00:15 | Progress Note ---
DATE: 10/15/2019 CARDIOLOGY PROGRESS NOTE SUBJECTIVE: Pain has decreased. Monitored rhythm sinus with a rare atrial ectopics, 50 mL of fluid removed today by a paracentesis. OBJECTIVE: VITAL SIGNS: Temperature 99.9, blood pressure 165/77, heart rate 118, and respiratory rate 23. LUNGS: Diminished breath sounds. CARDIAC: Regular rhythm. Rapid rate. Normal S1 and S2. ABDOMEN: Soft. No focal tenderness. EXTREMITIES: Trace dependent edema. CHEST: Dialysis catheter right chest wall intact. IMPRESSION: 1. Recovering line sepsis with shock. 2. Paroxysmal atrial ectopy, secondary to sinus tachycardia. 3. Healthcare-acquired pneumonia. 4. Ascites with cirrhosis. 5. Chronic kidney disease stage 5, on hemodialysis. 6. Acute on chronic diastolic congestive heart failure. 7. Hypertensive heart disease. PLAN: 1. Advance beta-boris. 2. Titrate antihypertensives. 3. Nutrition by G-tube. 4. Antibiotics per Infectious Disease enterprise resource planning consultant. 5. Continue cardiac monitoring. 6. Hemodialysis with ultrafiltration for volume management. 7. Epogen and iron replacement with transfusion for hemoglobin less than 8 grams to be considered. 8. Follow up results of ascites fluid studies. Lance Rivas M.D. DR: KRISTAN JOB#: [id number] CC:
[2019-10-16 03:54] VITALS: BP 143/71
[2019-10-16 05:12] LABS: HEMATOCRIT 27.3 % (37.0-47.0); HEMOGLOBIN 9.1 G/DL (12.0-16.0); MEAN CORPUSCULAR VOLUME 88 FL (80-99); PLATELET COUNT 283 K/UL (150-450); RED BLOOD COUNT 3.11 M/UL (4.20-5.40); RED CELL DISTRIBUTION WIDTH 13.7 % (11.6-14.8)
[2019-10-16] MEDS: HydrALAZINE 50mg tab GT SCH ×3 (05:22→21:24)
[2019-10-16 05:36] LABS: ANION GAP 9 mmol/L (5-15); BLOOD UREA NITROGEN 31 mg/dL (7-18); CALCIUM 7.7 MG/DL (8.5-10.1); CARBON DIOXIDE 27 MMOL/L (21-32); CHLORIDE 103 MMOL/L (98-107); CREATININE 3.1 MG/DL (0.55-1.30); SODIUM 139 MMOL/L (136-145)
[2019-10-16] MEDS: Levothyroxine 125mcg tab GT SCH (05:58)
--- NOTE | 2019-10-16 07:00 | NUR ---
HAND-OFF: Report given to meri NUNEZ, pt. remains stable and no signs of distress noted- aware to f/u on am labs. pt. transferred to telemetry. orders transferred by charge John.
--- NOTE | 2019-10-16 07:26 | NUR ---
NURSE NOTES: Received report from ENRIQUE Mckinley. Patient transferred from [facility] to tele, no belonging. Patient AOx1, confused. ST with HR 106, on 2L oxygen via NC. Right IJ Broderick Cath intact, patent, asymptomatic. IV fluid running as prescribed rate. Endorsed last HD done on 10/10, aware, will put HD order when needed. Bed in lowest position, side rails upx3, call light within reach, bed alarm on. Will continue to monitor.
--- NOTE | 2019-10-16 07:57 | General Progress Note ---
Assessment/Plan Status: stable Assessment/Plan: 1. Chronic kidney disease. 2. Hypertension. 3. CHF. 4. Dysphagia with a G-tube. 5. History of sepsis. 6. Anemia. 7. Hepatitis C. 8. Pneumonia. 9. cirrhosis. 10. gallstones us reviewed s/p paracentesis>>> No SBP abx GTF abx anemia work up GI procedures on hold for now Subjective ROS Limited/Unobtainable: No Allergies: Coded Allergies: ERYTHROMYCIN BASE (Unverified Allergy, Intermediate, 07/14/19) Per patient not allergic to medications or food Objective Last 24 Hour Vital Signs Date Time Temp Pulse Resp B/P (MAP) Pulse Ox O2 Delivery O2 Flow Rate FiO2 10/16/19 05:22 141/69 10/16/19 04:00 Nasal Cannula 2.0 10/16/19 04:00 2.0 10/16/19 03:54 98.8 106 20 143/71 (95) 97 10/16/19 03:35 105 10/16/19 00:00 2.0 10/16/19 00:00 Nasal Cannula 2.0 10/16/19 00:00 98.2 97 20 140/80 (100) 97 10/15/19 23:51 96 10/15/19 21:09 109 138/75 10/15/19 21:04 138/75 10/15/19 20:00 Nasal Cannula 2.0 10/15/19 20:00 2.0 10/15/19 20:00 98.4 109 24 138/75 (96) 97 10/15/19 19:07 104 10/15/19 18:46 96 150/84 10/15/19 16:00 Nasal Cannula 2.0 10/15/19 16:00 98.1 102 26 150/84 (106) 95 10/15/19 16:00 96 10/15/19 15:41 150/84 10/15/19 12:00 Nasal Cannula 2.0 10/15/19 12:00 97.7 96 22 138/72 (94) 96 10/15/19 12:00 94 10/15/19 09:39 99.9 10/15/19 09:10 118 165/77 10/15/19 09:10 118 165/77 10/15/19 08:00 Nasal Cannula 2.0 10/15/19 08:00 99.9 118 23 165/77 (106) 96 10/15/19 08:00 111 Intake and Output 10/15/19 10/16/19 19:00 07:00 Intake Total 810 ml 1141 ml Output Total 100 ml 125 ml Balance 710 ml 1016 ml Intake Free Water 250 ml 0 ml IV Total 450 ml 886 ml Tube Feeding 110 ml 255 ml Output Urine Total 100 ml 125 ml Laboratory Tests 10/15/19 12:27: Body Fluid Source Paracentesis, Body Fluid Volume 27, Body Fluid Appearance Hazy , Body Fluid RBC 407, Body Fluid Total Nucleated Cells 291, Body Fluid Polynuclear WBCs (%) 54, Body Fluid Mononuclear WBCs (%) 41, Body Fluid Mesothelial Cells (%) 5, Body Fluid Total Protein [Pending] 10/16/19 04:05: White Blood Count 13.0H, Red Blood Count 3.11L, Hemoglobin 9.1L, Hematocrit 27.3L, Mean Corpuscular Volume 88, Mean Corpuscular Hemoglobin 29.3, Mean Corpuscular Hemoglobin Concent 33.4, Red Cell Distribution Width 13.7, Platelet Count 283, Mean Platelet Volume 7.8, Neutrophils (%) (Auto) , Lymphocytes (%) ( Auto) , Monocytes (%) (Auto) , Eosinophils (%) (Auto) , Basophils (%) (Auto) , Sodium Level 139, Potassium Level 4.0, Chloride Level 103, Carbon Dioxide Level 27, Anion Gap 9, Blood Urea Nitrogen 31H, Creatinine 3.1H, Estimat Glomerular Filtration Rate , Glucose Level 125H, Calcium Level 7.7L Height (Feet): 5 Height (Inches): 2.00 Weight (Pounds): 218 General Appearance: no apparent distress EENT: normal ENT inspection Neck: supple Cardiovascular: normal rate Respiratory/Chest: decreased breath sounds Abdomen: soft, hypoactive bowel sounds, distended Extremities: non-tender David Bosch MD Oct 16, 2019 07:57
[2019-10-16 08:00] VITALS: BP 160/89
--- NOTE | 2019-10-16 08:22 | General Progress Note ---
Assessment/Plan Problem List: (1) Sepsis ICD Codes: A41.9 - Sepsis, unspecified organism SNOMED: 02282182 (2) Lactic acid acidosis ICD Codes: E87.2 - Acidosis SNOMED: 77074762 (3) Anemia ICD Codes: D64.9 - Anemia, unspecified SNOMED: 012761732 (4) Alkalosis, metabolic ICD Codes: E87.3 - Alkalosis, metabolic SNOMED: 2228027 (5) Acidosis ICD Codes: E87.2 - Acidosis SNOMED: 12759145 (6) UTI (urinary tract infection) ICD Codes: N39.0 - Urinary tract infection, site not specified SNOMED: 25296597 (7) Acute renal failure (ARF) ICD Codes: N17.9 - Acute kidney failure, unspecified SNOMED: 06356705 Status: stable Assessment/Plan: iv abx follow up cultures wound care HD per renal monitor bp- may need to resume bp meds monitor for bleeding transfuse as needed gi follow up paracentesis as needed Subjective ROS Limited/Unobtainable: No Constitutional: Reports: malaise, weakness HEENT: Reports: no symptoms Cardiovascular: Reports: no symptoms Respiratory: Reports: no symptoms Gastrointestinal/Abdominal: Reports: abdominal pain, difficulty swallowing Genitourinary: Reports: no symptoms Neurologic/Psychiatric: Reports: pre-existing deficit, seizure Endocrine: Reports: no symptoms Hematologic/Lymphatic: Reports: no symptoms Allergies: Coded Allergies: ERYTHROMYCIN BASE (Unverified Allergy, Intermediate, 07/14/19) Per patient not allergic to medications or food All Systems: reviewed and negative except above Subjective still with abd pain. slightly improved with MS. GI noted. paracentesis done- feels a little better after. no fever or chills. tolerating feeds. Objective Last 24 Hour Vital Signs Date Time Temp Pulse Resp B/P (MAP) Pulse Ox O2 Delivery O2 Flow Rate FiO2 10/16/19 08:00 100.0 106 18 160/89 (112) 96 10/16/19 05:22 141/69 10/16/19 04:00 Nasal Cannula 2.0 10/16/19 04:00 2.0 10/16/19 03:54 98.8 106 20 143/71 (95) 97 10/16/19 03:35 105 10/16/19 00:00 2.0 10/16/19 00:00 Nasal Cannula 2.0 10/16/19 00:00 98.2 97 20 140/80 (100) 97 10/15/19 23:51 96 10/15/19 21:09 109 138/75 10/15/19 21:04 138/75 10/15/19 20:00 Nasal Cannula 2.0 10/15/19 20:00 2.0 10/15/19 20:00 98.4 109 24 138/75 (96) 97 10/15/19 19:07 104 10/15/19 18:46 96 150/84 10/15/19 16:00 Nasal Cannula 2.0 10/15/19 16:00 98.1 102 26 150/84 (106) 95 10/15/19 16:00 96 10/15/19 15:41 150/84 10/15/19 12:00 Nasal Cannula 2.0 10/15/19 12:00 97.7 96 22 138/72 (94) 96 10/15/19 12:00 94 10/15/19 09:39 99.9 10/15/19 09:10 118 165/77 10/15/19 09:10 118 165/77 Intake and Output 10/15/19 10/16/19 19:00 07:00 Intake Total 810 ml 1141 ml Output Total 100 ml 125 ml Balance 710 ml 1016 ml Intake Free Water 250 ml 0 ml IV Total 450 ml 886 ml Tube Feeding 110 ml 255 ml Output Urine Total 100 ml 125 ml Laboratory Tests 10/15/19 12:27: Body Fluid Source Paracentesis, Body Fluid Volume 27, Body Fluid Appearance Hazy , Body Fluid RBC 407, Body Fluid Total Nucleated Cells 291, Body Fluid Polynuclear WBCs (%) 54, Body Fluid Mononuclear WBCs (%) 41, Body Fluid Mesothelial Cells (%) 5, Body Fluid Total Protein [Pending] 10/16/19 04:05: White Blood Count 13.0H, Red Blood Count 3.11L, Hemoglobin 9.1L, Hematocrit 27.3L, Mean Corpuscular Volume 88, Mean Corpuscular Hemoglobin 29.3, Mean Corpuscular Hemoglobin Concent 33.4, Red Cell Distribution Width 13.7, Platelet Count 283, Mean Platelet Volume 7.8, Neutrophils (%) (Auto) , Lymphocytes (%) ( Auto) , Monocytes (%) (Auto) , Eosinophils (%) (Auto) , Basophils (%) (Auto) , Sodium Level 139, Potassium Level 4.0, Chloride Level 103, Carbon Dioxide Level 27, Anion Gap 9, Blood Urea Nitrogen 31H, Creatinine 3.1H, Estimat Glomerular Filtration Rate , Glucose Level 125H, Calcium Level 7.7L Height (Feet): 5 Height (Inches): 2.00 Weight (Pounds): 218 Objective General Appearance: WD/WN, alert Neck: supple Cardiovascular: normal rate, regular rhythm Respiratory/Chest: chest wall non-tender, lungs clear, normal breath sounds Abdomen: normal bowel sounds, soft, no organomegaly, tender Edema: no edema noted Arm (L), no edema noted Arm (R), no edema noted Leg (L), no edema noted Leg (R), no edema noted Pedal (L), no edema noted Pedal (R), no edema noted Generalized Chema Hendricks MD Oct 16, 2019 08:22
[2019-10-16] MEDS ORDERED: DiphenhydrAMINE 25mg/10ml Elixir GT PRN (08:30)
[2019-10-16] MEDS ORDERED: Acetaminophen 650mg/20.3ml GT PRN (08:30)
[2019-10-16] MEDS ORDERED: Morphine Sulfate 2mg/ml Inj(IV/IM USE ONLY) IVP PRN (08:45)
[2019-10-16] MEDS ORDERED: Meropenem 500 MG in NS 55 ML IVPB SCH (09:00)
--- NOTE | 2019-10-16 09:28 | NUR ---
NURSE NOTES: Dr. Bosch made aware patient has no residual at 35ml/h, no n/v. Per Dr. Bosch. increase feeding 35ml to 40ml/h. Order noted, entered, carried out.
--- NOTE | 2019-10-16 09:32 | Nephrology Progress Note ---
Assessment/Plan Problem List: (1) Healthcare-associated pneumonia (2) Anemia in chronic kidney disease (3) CKD (chronic kidney disease) stage 5, GFR less than 15 ml/min (4) Abdominal pain in female (5) CHF exacerbation (6) Sepsis (7) Ascites (8) Cirrhosis Plan nonoliguric, hold off dialysis, replace K, cont rxx esbl sepsis, US cholelithiasis--might be source of sepsis, also cirrhosis and ascites, hope to start feeding soon, creat lower, anemia Rx epogen feeding resumed Subjective Constitutional: Reports: weakness HEENT: Reports: no symptoms Genitourinary: Reports: incontinence Neurologic/Psychiatric: Reports: pre-existing deficit Subjective some mild abd pain Objective Objective Last 24 Hour Vital Signs Date Time Temp Pulse Resp B/P (MAP) Pulse Ox O2 Delivery O2 Flow Rate FiO2 10/16/19 08:32 106 160/89 10/16/19 08:31 106 160/89 10/16/19 08:00 100.0 106 18 160/89 (112) 96 10/16/19 05:22 141/69 10/16/19 04:00 Nasal Cannula 2.0 10/16/19 04:00 2.0 10/16/19 03:54 98.8 106 20 143/71 (95) 97 10/16/19 03:35 105 10/16/19 00:00 2.0 10/16/19 00:00 Nasal Cannula 2.0 10/16/19 00:00 98.2 97 20 140/80 (100) 97 10/15/19 23:51 96 10/15/19 21:09 109 138/75 10/15/19 21:04 138/75 10/15/19 20:00 Nasal Cannula 2.0 10/15/19 20:00 2.0 10/15/19 20:00 98.4 109 24 138/75 (96) 97 10/15/19 19:07 104 10/15/19 18:46 96 150/84 10/15/19 16:00 Nasal Cannula 2.0 10/15/19 16:00 98.1 102 26 150/84 (106) 95 10/15/19 16:00 96 10/15/19 15:41 150/84 10/15/19 12:00 Nasal Cannula 2.0 10/15/19 12:00 97.7 96 22 138/72 (94) 96 10/15/19 12:00 94 10/15/19 09:39 99.9 Intake and Output 10/15/19 10/16/19 19:00 07:00 Intake Total 810 ml 1141 ml Output Total 100 ml 125 ml Balance 710 ml 1016 ml Intake Free Water 250 ml 0 ml IV Total 450 ml 886 ml Tube Feeding 110 ml 255 ml Output Urine Total 100 ml 125 ml Laboratory Tests 10/15/19 12:27: Body Fluid Source Paracentesis, Body Fluid Volume 27, Body Fluid Appearance Hazy , Body Fluid RBC 407, Body Fluid Total Nucleated Cells 291, Body Fluid Polynuclear WBCs (%) 54, Body Fluid Mononuclear WBCs (%) 41, Body Fluid Mesothelial Cells (%) 5, Body Fluid Total Protein [Pending] 10/16/19 04:05: White Blood Count 13.0H, Red Blood Count 3.11L, Hemoglobin 9.1L, Hematocrit 27.3L, Mean Corpuscular Volume 88, Mean Corpuscular Hemoglobin 29.3, Mean Corpuscular Hemoglobin Concent 33.4, Red Cell Distribution Width 13.7, Platelet Count 283, Mean Platelet Volume 7.8, Neutrophils (%) (Auto) , Lymphocytes (%) ( Auto) , Monocytes (%) (Auto) , Eosinophils (%) (Auto) , Basophils (%) (Auto) , Sodium Level 139, Potassium Level 4.0, Chloride Level 103, Carbon Dioxide Level 27, Anion Gap 9, Blood Urea Nitrogen 31H, Creatinine 3.1H, Estimat Glomerular Filtration Rate , Glucose Level 125H, Calcium Level 7.7L Height (Feet): 5 Height (Inches): 2.00 Weight (Pounds): 218 General Appearance: alert, confused Neck: non-tender Cardiovascular: regular rhythm Respiratory/Chest: rhonchi - bilaterally Abdomen: non tender Extremities: trace edema Neurologic: motor weakness Jose Lemus MD Oct 16, 2019 09:32
--- NOTE | 2019-10-16 10:15 | Infectious Diseases Prog Note ---
Assessment/Plan Assessment/Plan IMPRESSION: 1. E, coli sepsis 2. pneumonia in right lower lobe. 3. Acute renal failure. 4. Chronic kidney disease. 5. Hyperkalemia, corrected 6. Hypernatremia, corrected 7. Hypoxemia. 8. Anemia. 9. Thrombocytopenia. 10. Hypothyroidism. 11. Recent MRSA sepsis. 12. Parkinson disease. 13. Dementia. 14. Cirrhosis 15. Portal hypertension 16. Cholelithiasis RECOMMENDATION: Discontinue Meropenem Will f/u CBC Subjective ROS Limited/Unobtainable: Yes Constitutional: Reports: fever, other - Tlhp=107 Gastrointestinal/Abdominal: Reports: other - had paracentesis yesterday Allergies: Coded Allergies: ERYTHROMYCIN BASE (Unverified Allergy, Intermediate, 07/14/19) Per patient not allergic to medications or food Objective Vital Signs Last 24 Hour Vital Signs Date Time Temp Pulse Resp B/P (MAP) Pulse Ox O2 Delivery O2 Flow Rate FiO2 10/16/19 08:32 106 160/89 10/16/19 08:31 106 160/89 10/16/19 08:00 107 10/16/19 08:00 100.0 106 18 160/89 (112) 96 10/16/19 08:00 2.0 10/16/19 08:00 Nasal Cannula 2.0 10/16/19 05:22 141/69 10/16/19 04:00 Nasal Cannula 2.0 10/16/19 04:00 2.0 10/16/19 03:54 98.8 106 20 143/71 (95) 97 10/16/19 03:35 105 10/16/19 00:00 2.0 10/16/19 00:00 Nasal Cannula 2.0 10/16/19 00:00 98.2 97 20 140/80 (100) 97 10/15/19 23:51 96 10/15/19 21:09 109 138/75 10/15/19 21:04 138/75 10/15/19 20:00 Nasal Cannula 2.0 10/15/19 20:00 2.0 10/15/19 20:00 98.4 109 24 138/75 (96) 97 10/15/19 19:07 104 10/15/19 18:46 96 150/84 10/15/19 16:00 Nasal Cannula 2.0 10/15/19 16:00 98.1 102 26 150/84 (106) 95 10/15/19 16:00 96 10/15/19 15:41 150/84 10/15/19 12:00 Nasal Cannula 2.0 10/15/19 12:00 97.7 96 22 138/72 (94) 96 10/15/19 12:00 94 Height (Feet): 5 Height (Inches): 2.00 Weight (Pounds): 218 General Appearance: no acute distress HEENT: mucous membranes moist Respiratory/Chest: lungs clear, other - oxygen by nasa cannula Cardiovascular: normal rate Abdomen: soft, non tender, other - Gt feeding Extremities: no edema Neurologic/Psychiatric: alert, responsive Laboratory Tests Test 10/15/19 12:27 10/16/19 04:05 Body Fluid Source Paracentesis Body Fluid Volume 27 mL Body Fluid Appearance Hazy (Clear) Body Fluid RBC 407 /CUMM Body Fluid Total Nucleated Cells 291 /CUMM Body Fluid Polynuclear WBCs (%) 54 % Body Fluid Mononuclear WBCs (%) 41 % Body Fluid Mesothelial Cells (%) 5 % Body Fluid Total Protein Pending White Blood Count 13.0 K/UL (4.8-10.8) H Red Blood Count 3.11 M/UL (4.20-5.40) L Hemoglobin 9.1 G/DL (12.0-16.0) L Hematocrit 27.3 % (37.0-47.0) L Mean Corpuscular Volume 88 FL (80-99) Mean Corpuscular Hemoglobin 29.3 PG (27.0-31.0) Mean Corpuscular Hemoglobin Concent 33.4 G/DL (32.0-36.0) Red Cell Distribution Width 13.7 % (11.6-14.8) Platelet Count 283 K/UL (150-450) Mean Platelet Volume 7.8 FL (6.5-10.1) Neutrophils (%) (Auto) % (45.0-75.0) Lymphocytes (%) (Auto) % (20.0-45.0) Monocytes (%) (Auto) % (1.0-10.0) Eosinophils (%) (Auto) % (0.0-3.0) Basophils (%) (Auto) % (0.0-2.0) Sodium Level 139 MMOL/L (136-145) Potassium Level 4.0 MMOL/L (3.5-5.1) Chloride Level 103 MMOL/L (98-107) Carbon Dioxide Level 27 MMOL/L (21-32) Anion Gap 9 mmol/L (5-15) Blood Urea Nitrogen 31 mg/dL (7-18) H Creatinine 3.1 MG/DL (0.55-1.30) H Estimat Glomerular Filtration Rate mL/min (>60) Glucose Level 125 MG/DL (74-106) H Calcium Level 7.7 MG/DL (8.5-10.1) L Current Medications Medications (Trade) Dose Ordered Sig/Jonathan Route PRN Reason Start Time Stop Time Status Last Admin Dose Admin Acetaminophen (Tylenol) 650 mg Q4H PRN GT Mild Pain/Temp > 100.5 10/16/19 08:30 11/06/19 20:29 Amlodipine Besylate (Norvasc) 5 mg BID GT 10/16/19 09:00 11/13/19 17:59 10/16/19 08:32 Chlorhexidine Gluconate (Meredith-Hex 2%) 1 applic DAILY@2000 TOPIC 10/16/19 20:00 11/09/19 19:59 Dextrose 1,000 ml @ 30 mls/hr Q24H IV 10/16/19 23:00 11/15/19 22:59 Diphenhydramine HCl (Benadryl) 25 mg Q8H PRN GT Itching 10/16/19 08:30 11/14/19 08:29 Hydralazine HCl (Apresoline) 100 mg Q8HR GT 10/16/19 14:00 11/06/19 21:59 Iron Sucrose 100 mg/Sodium Chloride 60 ml @ 240 mls/hr BEDTIME IV 10/16/19 21:00 10/19/19 21:14 Lansoprazole (Prevacid) 30 mg DAILY GT 10/16/19 09:00 11/07/19 08:59 10/16/19 08:31 Levothyroxine Sodium (Synthroid) 125 mcg ACBREAKFAST GT 10/17/19 06:30 11/07/19 06:29 Meropenem 500 mg/ Sodium Chloride 55 ml @ 110 mls/hr Q12HR IVPB 10/16/19 09:00 10/20/19 20:59 10/16/19 08:31 Metoprolol Tartrate (Lopressor) 50 mg Q12HR GT 10/16/19 09:00 11/15/19 08:59 10/16/19 08:31 Morphine Sulfate (Morphine Sulfate) 1 mg Q4H PRN IVP SEVERE PAIN 10/16/19 08:45 10/20/19 20:44 Ruperto Freedman MD Oct 16, 2019 10:15
[2019-10-16 12:00] VITALS: BP 142/80
--- NOTE | 2019-10-16 12:00 | NUR ---
NURSE NOTES: Dr. Bosch made aware patient c/o abd pain pointing g-tube area, tolerating feeding 40ml/h, no residual, no n/v. Per Dr. Bosch, no order given at this time. Will continue to monitor.
--- NOTE | 2019-10-16 12:56 | Surgery Progress Note ---
Surgery Progress Note Subjective Additional Comments wbc 13k labs noted exam stable increase tube feeds to goal abx change per ID d/c eric Objective Last 24 Hour Vital Signs Date Time Temp Pulse Resp B/P (MAP) Pulse Ox O2 Delivery O2 Flow Rate FiO2 10/16/19 08:32 106 160/89 10/16/19 08:31 106 160/89 10/16/19 08:00 107 10/16/19 08:00 100.0 106 18 160/89 (112) 96 10/16/19 08:00 2.0 10/16/19 08:00 Nasal Cannula 2.0 10/16/19 05:22 141/69 10/16/19 04:00 Nasal Cannula 2.0 10/16/19 04:00 2.0 10/16/19 03:54 98.8 106 20 143/71 (95) 97 10/16/19 03:35 105 10/16/19 00:00 2.0 10/16/19 00:00 Nasal Cannula 2.0 10/16/19 00:00 98.2 97 20 140/80 (100) 97 10/15/19 23:51 96 10/15/19 21:09 109 138/75 10/15/19 21:04 138/75 10/15/19 20:00 Nasal Cannula 2.0 10/15/19 20:00 2.0 10/15/19 20:00 98.4 109 24 138/75 (96) 97 10/15/19 19:07 104 10/15/19 18:46 96 150/84 10/15/19 16:00 Nasal Cannula 2.0 10/15/19 16:00 98.1 102 26 150/84 (106) 95 10/15/19 16:00 96 10/15/19 15:41 150/84 I&O Intake and Output 10/15/19 10/16/19 19:00 07:00 Intake Total 810 ml 1141 ml Output Total 100 ml 125 ml Balance 710 ml 1016 ml Intake Free Water 250 ml 0 ml IV Total 450 ml 886 ml Tube Feeding 110 ml 255 ml Output Urine Total 100 ml 125 ml Dressing: other Wound: other Drains: other Cardiovascular: RSR Respiratory: decreased breath sounds Abdomen: soft, present bowel sounds Extremities: no cyanosis, other Laboratory Tests Test 10/16/19 04:05 White Blood Count 13.0 K/UL (4.8-10.8) H Red Blood Count 3.11 M/UL (4.20-5.40) L Hemoglobin 9.1 G/DL (12.0-16.0) L Hematocrit 27.3 % (37.0-47.0) L Mean Corpuscular Volume 88 FL (80-99) Mean Corpuscular Hemoglobin 29.3 PG (27.0-31.0) Mean Corpuscular Hemoglobin Concent 33.4 G/DL (32.0-36.0) Red Cell Distribution Width 13.7 % (11.6-14.8) Platelet Count 283 K/UL (150-450) Mean Platelet Volume 7.8 FL (6.5-10.1) Neutrophils (%) (Auto) % (45.0-75.0) Lymphocytes (%) (Auto) % (20.0-45.0) Monocytes (%) (Auto) % (1.0-10.0) Eosinophils (%) (Auto) % (0.0-3.0) Basophils (%) (Auto) % (0.0-2.0) Sodium Level 139 MMOL/L (136-145) Potassium Level 4.0 MMOL/L (3.5-5.1) Chloride Level 103 MMOL/L (98-107) Carbon Dioxide Level 27 MMOL/L (21-32) Anion Gap 9 mmol/L (5-15) Blood Urea Nitrogen 31 mg/dL (7-18) H Creatinine 3.1 MG/DL (0.55-1.30) H Estimat Glomerular Filtration Rate mL/min (>60) Glucose Level 125 MG/DL (74-106) H Calcium Level 7.7 MG/DL (8.5-10.1) L Plan Problems: (1) Lactic acid acidosis Assessment & Plan: Patient noted to have leukocytosis, fevers, abdominal wall cellulitis, lactic acidosis. Abnormal labs. Etiology and work-up continuing currently with microbiology pending and on IV antibiotics Local care being provided. Imaging noted Pt presented on admission with partially opened DTPI Sacrum.Base of wound extends from sacrum to R and L buttocks and is maroon with #3 small openings , each with slough at mid sacral area. Pt grimaced when affected area minimally palpated. Non-blanching erythema noted to R and L ischial regions. Moisture Intertrigo with surrounding erythema and denuded skin noted to R and L breasts. Mild odor noted each skin folds of breasts.Small amt sanguineous exudate noted from L breast. Mons pubis,labia majora, and medial aspects of both upper thighs erythematous and denuded. R ad L heels are firm and blanchable. Tx.Plan: [place] Liquid Skin Repair to R and L breasts(x1 application) applied to folds of each breasts. Apply Moisture Barrier paste to perineum with each incontinence care. Apply Moisture Barrier Paste to Sacrum.Cover with Optifoam drsgs. Change every 3 days and prn. APM/SIM Mattress overlay. Reposition at least every 2 hours or as tolerated. Off-load heels with pillow. (2) Sepsis Assessment & Plan: 73-year-old female with sepsis, lactic acidosis, renal insufficiency, cellulitis, leukocytosis. Febrile, hemodynamically stable, exam as above Coordinated with radiology for urgent temporary even as catheter insertion. Placed today and will discuss with nephrology for dialysis Antibiotics as per infectious disease Trend labs IV fluid resuscitation Dense consolidation in the posterior right lower lobe, likely pneumonia Liquid stool in the proximal colon, could indicate diarrheal illness Trace free intraperitoneal fluid Slight hepatic atrophy and surface nodularity raising possibility of cirrhotic change Small lesser sac varices and splenomegaly raises possibility of portal hypertension Pericardial effusion, also evident previously abd wall cellulitis superficial and lumps likely prior injection sites and not infected. cholelithiasis unlikely etiology unlikely etiology of sepsis. We will follow with recommendations Thank you for allowing me to participate in patient care Kirk Em Oct 16, 2019 12:56
[2019-10-16 16:00] VITALS: BP 131/77
--- NOTE | 2019-10-16 19:17 | NUR ---
HAND-OFF: Report given to ENRIQUE Walters.
--- NOTE | 2019-10-16 19:23 | NUR ---
NURSE NOTES: Received report from ENRIQUE Small. Patient is in bed, asleep. Responsive to verbal and and tactile stimuli. Breathing regular and unlabored with no s/s of SOB noted at this time. Patient's G-tube is feeding is running at prescribed rate, IJ is intact, running fluids at prescribed rate. Patient is on O2 2L NC. Bed is in lowest position, breaks engaged. Will continue to monitor.
[2019-10-16] MEDS ORDERED: NS 275ml ONE (19:47)
[2019-10-16] MEDS ORDERED: Tubing IV Secondary IV ONE (19:47)
[2019-10-16 20:00] VITALS: BP 148/81
[2019-10-16] MEDS: Dyna-Hex 2% Top Sol 2oz TOPIC SCH (20:00)
[2019-10-16] MEDS: Iron Sucrose 100 MG in NS 55 ML IV SCH (21:25)
--- NOTE | 2019-10-16 23:42 | NUR ---
NURSE NOTES: Upon assessing the patient, noticed patient was intermittently tachypneic. Called RT to assess the patient. RT assessed and patient, breath sounds were clear and patient is saturating between 97-98% on 2L NC. The patient is responsive and is not in acute distress, denies any pain at this time, will continue to monitor.
[2019-10-17] VITALS: BP 142/79
[2019-10-17 04:00] VITALS: BP 131/59
[2019-10-17] MEDS: HydrALAZINE 50mg tab GT SCH ×3 (06:08→23:04)
[2019-10-17] MEDS: Levothyroxine 125mcg tab GT SCH (06:09)
[2019-10-17 06:36] LABS: HEMATOCRIT 29.5 % (37.0-47.0); HEMOGLOBIN 9.6 G/DL (12.0-16.0); MEAN CORPUSCULAR VOLUME 88 FL (80-99); PLATELET COUNT 378 K/UL (150-450); RED BLOOD COUNT 3.34 M/UL (4.20-5.40); RED CELL DISTRIBUTION WIDTH 14.1 % (11.6-14.8); WHITE BLOOD COUNT 15.9 K/UL (4.8-10.8)
--- NOTE | 2019-10-17 07:07 | General Progress Note ---
Assessment/Plan Status: stable Assessment/Plan: 1. Chronic kidney disease. 2. Hypertension. 3. CHF. 4. Dysphagia with a G-tube. 5. History of sepsis. 6. Anemia. 7. Hepatitis C. 8. Pneumonia. 9. cirrhosis. 10. gallstones us reviewed s/p paracentesis>>> No SBP abx GTF abx anemia work up GI procedures on hold for now add imodium prn Subjective Allergies: Coded Allergies: ERYTHROMYCIN BASE (Unverified Allergy, Intermediate, 07/14/19) Per patient not allergic to medications or food Subjective diarrhea Objective Last 24 Hour Vital Signs Date Time Temp Pulse Resp B/P (MAP) Pulse Ox O2 Delivery O2 Flow Rate FiO2 10/17/19 06:08 131/59 10/17/19 04:00 100 10/17/19 04:00 98.6 100 18 131/59 (83) 98 10/17/19 00:00 97 10/17/19 00:00 98.5 97 20 142/79 (100) 98 10/16/19 21:24 148/81 10/16/19 21:23 106 148/81 10/16/19 20:00 97.6 106 20 148/81 (103) 97 10/16/19 20:00 66 10/16/19 17:25 102 131/77 10/16/19 16:00 98 10/16/19 16:00 Nasal Cannula 2.0 10/16/19 16:00 98.2 102 18 131/77 (95) 98 10/16/19 16:00 2.0 10/16/19 14:00 142/80 10/16/19 12:00 98.2 100 20 142/80 (100) 97 10/16/19 12:00 2.0 10/16/19 12:00 Nasal Cannula 2.0 10/16/19 12:00 100 10/16/19 08:32 106 160/89 10/16/19 08:31 106 160/89 10/16/19 08:00 107 10/16/19 08:00 100.0 106 18 160/89 (112) 96 10/16/19 08:00 2.0 10/16/19 08:00 Nasal Cannula 2.0 Intake and Output 10/16/19 10/17/19 19:00 07:00 # Voids 3 3 # Bowel Movements 2 3 Laboratory Tests 10/17/19 05:19: White Blood Count 15.9H, Red Blood Count 3.34L, Hemoglobin 9.6L, Hematocrit 29.5L, Mean Corpuscular Volume 88, Mean Corpuscular Hemoglobin 28.8, Mean Corpuscular Hemoglobin Concent 32.6, Red Cell Distribution Width 14.1, Platelet Count 378, Mean Platelet Volume 7.8, Neutrophils (%) (Auto) , Lymphocytes (%) ( Auto) , Monocytes (%) (Auto) , Eosinophils (%) (Auto) , Basophils (%) (Auto) , Neutrophils % (Manual) [Pending], Lymphocytes % (Manual) [Pending], Platelet Estimate [Pending], Platelet Morphology [Pending], Sodium Level [Pending], Potassium Level [Pending], Chloride Level [Pending], Carbon Dioxide Level [ Pending], Blood Urea Nitrogen [Pending], Creatinine [Pending], Estimat Glomerular Filtration Rate [Pending], Glucose Level [Pending], Calcium Level [ Pending], Total Bilirubin [Pending], Aspartate Amino Transf (AST/SGOT) [Pending] , Alanine Aminotransferase (ALT/SGPT) [Pending], Alkaline Phosphatase [Pending] , Total Protein [Pending], Albumin [Pending], Globulin [Pending] Height (Feet): 5 Height (Inches): 2.00 Weight (Pounds): 218 General Appearance: lethargic EENT: normal ENT inspection Neck: supple Cardiovascular: normal rate Respiratory/Chest: decreased breath sounds Abdomen: normal bowel sounds, non tender, soft Extremities: non-tender David Bosch MD Oct 17, 2019 07:07
[2019-10-17 07:09] LABS: ALANINE AMINOTRANSFERASE 36 U/L (12-78); ALBUMIN 1.6 G/DL (3.4-5.0); ALBUMIN/GLOBULIN RATIO 0.3 (1.0-2.7); ALKALINE PHOSPHATASE 368 U/L (46-116); ANION GAP 11 mmol/L (5-15); ASPARTATE AMINO TRANSFERASE 71 U/L (15-37); BILIRUBIN,TOTAL 2.9 MG/DL (0.2-1.0); BLOOD UREA NITROGEN 35 mg/dL (7-18); CALCIUM 7.9 MG/DL (8.5-10.1); CARBON DIOXIDE 26 MMOL/L (21-32); CHLORIDE 102 MMOL/L (98-107); CREATININE 3.5 MG/DL (0.55-1.30); POTASSIUM 3.8 MMOL/L (3.5-5.1); SODIUM 139 MMOL/L (136-145)
[2019-10-17 07:10] LABS: BILIRUBIN,DIRECT 2.3 MG/DL (0.0-0.3)
[2019-10-17] MEDS ORDERED: Loperamide 2mg cap ORAL PRN (07:15)
--- NOTE | 2019-10-17 07:34 | NUR ---
NURSE NOTES: Report given to ENRIQUE Sanon. Plan of care endorsed, patient stable.
--- NOTE | 2019-10-17 07:37 | NUR ---
NURSE NOTES: Patient awake complaining of nausea. Container given. Will try and medicate. No s/sx of distress, no complaints of pain. RR even and unlabored on RA. Call light within reach, side rails up x2, bed low and locked. Will continue to monitor. Addendum: 10/17/19 at 0740 by VIKI TOLENTINO RN Gtube feeding at 35mL per hour and IV fluids at 30mL/hr
[2019-10-17 08:00] VITALS: BP 135/75
--- NOTE | 2019-10-17 08:52 | NUR ---
CASE MANAGEMENT:REVIEW 10/17/19 SI: SEPSIS. BACTEREMIA AC/CHR RENAL FAILURE......ESRD ON HD. CHRONIC LIVER DZ S/P PARACENTESIS...0.23L REMOVED 98.6 100 18 131/59 98% ON 2L/NC WBC+15.9 BUN+35 CR+3.5 IS: SYNTHROID GT QD IVF@30/HR IV VENOFER QHS HYDRALAZINE GT Q8HRS NORVASC GT BID LOPRESSOR GT Q12 : TELEMETRY STATUS DCP; [facility] [employer]
--- NOTE | 2019-10-17 09:22 | Nephrology Progress Note ---
Assessment/Plan Problem List: (1) Healthcare-associated pneumonia (2) Anemia in chronic kidney disease (3) CKD (chronic kidney disease) stage 5, GFR less than 15 ml/min (4) Abdominal pain in female (5) CHF exacerbation (6) Sepsis (7) Ascites (8) Cirrhosis Plan nonoliguric, hold off dialysis, replace K done, cont rxx esbl sepsis, US cholelithiasis--might be source of sepsis, also cirrhosis and ascites, creat higher, hydrate, anemia Rx epogen feeding resumed Subjective Constitutional: Reports: weakness HEENT: Reports: no symptoms Genitourinary: Reports: incontinence Neurologic/Psychiatric: Reports: pre-existing deficit Subjective some mild abd pain Objective Objective Last 24 Hour Vital Signs Date Time Temp Pulse Resp B/P (MAP) Pulse Ox O2 Delivery O2 Flow Rate FiO2 10/17/19 09:20 101 135/75 10/17/19 09:20 101 135/75 10/17/19 08:03 Nasal Cannula 2.0 10/17/19 08:00 98.2 101 20 135/75 (95) 98 10/17/19 06:08 131/59 10/17/19 04:00 100 10/17/19 04:00 98.6 100 18 131/59 (83) 98 10/17/19 00:00 97 10/17/19 00:00 98.5 97 20 142/79 (100) 98 10/16/19 21:24 148/81 10/16/19 21:23 106 148/81 10/16/19 20:00 97.6 106 20 148/81 (103) 97 10/16/19 20:00 66 10/16/19 17:25 102 131/77 10/16/19 16:00 98 10/16/19 16:00 Nasal Cannula 2.0 10/16/19 16:00 98.2 102 18 131/77 (95) 98 10/16/19 16:00 2.0 10/16/19 14:00 142/80 10/16/19 12:00 98.2 100 20 142/80 (100) 97 10/16/19 12:00 2.0 10/16/19 12:00 Nasal Cannula 2.0 10/16/19 12:00 100 Intake and Output 10/16/19 10/17/19 19:00 07:00 # Voids 3 3 # Bowel Movements 2 3 Laboratory Tests 10/17/19 05:19: White Blood Count 15.9H, Red Blood Count 3.34L, Hemoglobin 9.6L, Hematocrit 29.5L, Mean Corpuscular Volume 88, Mean Corpuscular Hemoglobin 28.8, Mean Corpuscular Hemoglobin Concent 32.6, Red Cell Distribution Width 14.1, Platelet Count 378, Mean Platelet Volume 7.8, Neutrophils (%) (Auto) , Lymphocytes (%) ( Auto) , Monocytes (%) (Auto) , Eosinophils (%) (Auto) , Basophils (%) (Auto) , Neutrophils % (Manual) [Pending], Lymphocytes % (Manual) [Pending], Platelet Estimate [Pending], Platelet Morphology [Pending], Sodium Level 139, Potassium Level 3.8, Chloride Level 102, Carbon Dioxide Level 26, Anion Gap 11, Blood Urea Nitrogen 35H, Creatinine 3.5H, Estimat Glomerular Filtration Rate , Glucose Level 81, Calcium Level 7.9L, Total Bilirubin 2.9H, Direct Bilirubin 2.3H, Aspartate Amino Transf (AST/SGOT) 71H, Alanine Aminotransferase (ALT/SGPT ) 36, Alkaline Phosphatase 368H, Total Protein 6.3L, Albumin 1.6L, Globulin 4.7 , Albumin/Globulin Ratio 0.3L Height (Feet): 5 Height (Inches): 2.00 Weight (Pounds): 218 General Appearance: alert, confused, obese EENT: normal ENT inspection Neck: normal alignment Cardiovascular: normal rate, regular rhythm Respiratory/Chest: lungs clear Abdomen: non tender Extremities: trace edema Neurologic: motor weakness Jose Lemus MD Oct 17, 2019 09:22
--- NOTE | 2019-10-17 09:33 | General Progress Note ---
Assessment/Plan Problem List: (1) Sepsis ICD Codes: A41.9 - Sepsis, unspecified organism SNOMED: 52611933 (2) Lactic acid acidosis ICD Codes: E87.2 - Acidosis SNOMED: 32834480 (3) Anemia ICD Codes: D64.9 - Anemia, unspecified SNOMED: 329869646 (4) Alkalosis, metabolic ICD Codes: E87.3 - Alkalosis, metabolic SNOMED: 0905032 (5) Acidosis ICD Codes: E87.2 - Acidosis SNOMED: 42891974 (6) UTI (urinary tract infection) ICD Codes: N39.0 - Urinary tract infection, site not specified SNOMED: 46295174 (7) Acute renal failure (ARF) ICD Codes: N17.9 - Acute kidney failure, unspecified SNOMED: 04493353 Status: stable Assessment/Plan: iv abx follow up cultures wound care HD per renal monitor bp- may need to resume bp meds monitor for bleeding transfuse as needed gi follow up paracentesis as needed Subjective ROS Limited/Unobtainable: No Constitutional: Reports: malaise, weakness HEENT: Reports: no symptoms Cardiovascular: Reports: no symptoms Respiratory: Reports: no symptoms Gastrointestinal/Abdominal: Reports: abdominal pain Genitourinary: Reports: no symptoms Neurologic/Psychiatric: Reports: pre-existing deficit Endocrine: Reports: no symptoms Hematologic/Lymphatic: Reports: anemia Allergies: Coded Allergies: ERYTHROMYCIN BASE (Unverified Allergy, Intermediate, 07/14/19) Per patient not allergic to medications or food All Systems: reviewed and negative except above Subjective still with abd pain. taking pain meds. s/p paracentesis yesterday. no fever or chills. no sob. on abx. wbc remains elevated- trending up Objective Last 24 Hour Vital Signs Date Time Temp Pulse Resp B/P (MAP) Pulse Ox O2 Delivery O2 Flow Rate FiO2 10/17/19 09:20 101 135/75 10/17/19 09:20 101 135/75 10/17/19 08:03 Nasal Cannula 2.0 10/17/19 08:00 98.2 101 20 135/75 (95) 98 10/17/19 06:08 131/59 10/17/19 04:00 100 10/17/19 04:00 98.6 100 18 131/59 (83) 98 10/17/19 00:00 97 10/17/19 00:00 98.5 97 20 142/79 (100) 98 10/16/19 21:24 148/81 10/16/19 21:23 106 148/81 10/16/19 20:00 97.6 106 20 148/81 (103) 97 10/16/19 20:00 66 10/16/19 17:25 102 131/77 10/16/19 16:00 98 10/16/19 16:00 Nasal Cannula 2.0 10/16/19 16:00 98.2 102 18 131/77 (95) 98 10/16/19 16:00 2.0 10/16/19 14:00 142/80 10/16/19 12:00 98.2 100 20 142/80 (100) 97 10/16/19 12:00 2.0 10/16/19 12:00 Nasal Cannula 2.0 10/16/19 12:00 100 Intake and Output 10/16/19 10/17/19 19:00 07:00 # Voids 3 3 # Bowel Movements 2 3 Laboratory Tests 10/17/19 05:19: White Blood Count 15.9H, Red Blood Count 3.34L, Hemoglobin 9.6L, Hematocrit 29.5L, Mean Corpuscular Volume 88, Mean Corpuscular Hemoglobin 28.8, Mean Corpuscular Hemoglobin Concent 32.6, Red Cell Distribution Width 14.1, Platelet Count 378, Mean Platelet Volume 7.8, Neutrophils (%) (Auto) , Lymphocytes (%) ( Auto) , Monocytes (%) (Auto) , Eosinophils (%) (Auto) , Basophils (%) (Auto) , Neutrophils % (Manual) [Pending], Lymphocytes % (Manual) [Pending], Platelet Estimate [Pending], Platelet Morphology [Pending], Sodium Level 139, Potassium Level 3.8, Chloride Level 102, Carbon Dioxide Level 26, Anion Gap 11, Blood Urea Nitrogen 35H, Creatinine 3.5H, Estimat Glomerular Filtration Rate , Glucose Level 81, Calcium Level 7.9L, Total Bilirubin 2.9H, Direct Bilirubin 2.3H, Aspartate Amino Transf (AST/SGOT) 71H, Alanine Aminotransferase (ALT/SGPT ) 36, Alkaline Phosphatase 368H, Total Protein 6.3L, Albumin 1.6L, Globulin 4.7 , Albumin/Globulin Ratio 0.3L Height (Feet): 5 Height (Inches): 2.00 Weight (Pounds): 218 Objective General Appearance: WD/WN, alert Neck: supple Cardiovascular: normal rate, regular rhythm Respiratory/Chest: chest wall non-tender, lungs clear, normal breath sounds Abdomen: normal bowel sounds, soft, no organomegaly, tender Edema: no edema noted Arm (L), no edema noted Arm (R), no edema noted Leg (L), no edema noted Leg (R), no edema noted Pedal (L), no edema noted Pedal (R), no edema noted Generalized Chema Hendricks MD Oct 17, 2019 09:33
--- NOTE | 2019-10-17 09:55 | Infectious Diseases Prog Note ---
Assessment/Plan Assessment/Plan antibiotics : none A 1. e.eoli sepsis s/p rx 2. leucocytosis increasing 3. renal failure on HD 4. thrombocytopenia 5. pneumonia 6. Parkinsons disease 7. dementia P 1. restart meropenem 2. blood culture 3. ua and culture 4. stool for c.diff 5. will follow up cultures Subjective ROS Limited/Unobtainable: Yes Allergies: Coded Allergies: ERYTHROMYCIN BASE (Unverified Allergy, Intermediate, 07/14/19) Per patient not allergic to medications or food Objective Vital Signs Last 24 Hour Vital Signs Date Time Temp Pulse Resp B/P (MAP) Pulse Ox O2 Delivery O2 Flow Rate FiO2 10/17/19 09:20 101 135/75 10/17/19 09:20 101 135/75 10/17/19 08:03 Nasal Cannula 2.0 10/17/19 08:00 98.2 101 20 135/75 (95) 98 10/17/19 06:08 131/59 10/17/19 04:00 100 10/17/19 04:00 98.6 100 18 131/59 (83) 98 10/17/19 00:00 97 10/17/19 00:00 98.5 97 20 142/79 (100) 98 10/16/19 21:24 148/81 10/16/19 21:23 106 148/81 10/16/19 20:00 97.6 106 20 148/81 (103) 97 10/16/19 20:00 66 10/16/19 17:25 102 131/77 10/16/19 16:00 98 10/16/19 16:00 Nasal Cannula 2.0 10/16/19 16:00 98.2 102 18 131/77 (95) 98 10/16/19 16:00 2.0 10/16/19 14:00 142/80 10/16/19 12:00 98.2 100 20 142/80 (100) 97 10/16/19 12:00 2.0 10/16/19 12:00 Nasal Cannula 2.0 10/16/19 12:00 100 Height (Feet): 5 Height (Inches): 2.00 Weight (Pounds): 218 Respiratory/Chest: lungs clear Cardiovascular: normal rate, regular rhythm, no gallop/murmur Abdomen: soft, non tender, other - GT Extremities: no edema, other - right IJ catheter Microbiology Date/Time Source Procedure Growth Status 10/15/19 12:27 Ascities Fluid Gram Stain Pending Resulted 10/15/19 12:27 Ascities Fluid Body Fluid Culture - Preliminary NO GROWTH Resulted Laboratory Tests Test 10/17/19 05:19 White Blood Count 15.9 K/UL (4.8-10.8) H Red Blood Count 3.34 M/UL (4.20-5.40) L Hemoglobin 9.6 G/DL (12.0-16.0) L Hematocrit 29.5 % (37.0-47.0) L Mean Corpuscular Volume 88 FL (80-99) Mean Corpuscular Hemoglobin 28.8 PG (27.0-31.0) Mean Corpuscular Hemoglobin Concent 32.6 G/DL (32.0-36.0) Red Cell Distribution Width 14.1 % (11.6-14.8) Platelet Count 378 K/UL (150-450) Mean Platelet Volume 7.8 FL (6.5-10.1) Neutrophils (%) (Auto) % (45.0-75.0) Lymphocytes (%) (Auto) % (20.0-45.0) Monocytes (%) (Auto) % (1.0-10.0) Eosinophils (%) (Auto) % (0.0-3.0) Basophils (%) (Auto) % (0.0-2.0) Differential Total Cells Counted 100 Neutrophils % (Manual) 87 % (45-75) H Lymphocytes % (Manual) 8 % (20-45) L Monocytes % (Manual) 5 % (1-10) Eosinophils % (Manual) 0 % (0-3) Basophils % (Manual) 0 % (0-2) Band Neutrophils 0 % (0-8) Platelet Estimate Adequate Platelet Morphology Normal Anisocytosis 1+ Sodium Level 139 MMOL/L (136-145) Potassium Level 3.8 MMOL/L (3.5-5.1) Chloride Level 102 MMOL/L (98-107) Carbon Dioxide Level 26 MMOL/L (21-32) Anion Gap 11 mmol/L (5-15) Blood Urea Nitrogen 35 mg/dL (7-18) H Creatinine 3.5 MG/DL (0.55-1.30) H Estimat Glomerular Filtration Rate mL/min (>60) Glucose Level 81 MG/DL (74-106) Calcium Level 7.9 MG/DL (8.5-10.1) L Total Bilirubin 2.9 MG/DL (0.2-1.0) H Direct Bilirubin 2.3 MG/DL (0.0-0.3) H Aspartate Amino Transf (AST/SGOT) 71 U/L (15-37) H Alanine Aminotransferase (ALT/SGPT) 36 U/L (12-78) Alkaline Phosphatase 368 U/L (46-116) H Total Protein 6.3 G/DL (6.4-8.2) L Albumin 1.6 G/DL (3.4-5.0) L Globulin 4.7 g/dL Albumin/Globulin Ratio 0.3 (1.0-2.7) L Current Medications Medications (Trade) Dose Ordered Sig/Jonathan Route PRN Reason Start Time Stop Time Status Last Admin Dose Admin Acetaminophen (Tylenol) 650 mg Q4H PRN GT Mild Pain/Temp > 100.5 10/16/19 08:30 11/06/19 20:29 10/16/19 11:34 Amlodipine Besylate (Norvasc) 5 mg BID GT 10/16/19 09:00 11/13/19 17:59 10/17/19 09:20 Chlorhexidine Gluconate (Meredith-Hex 2%) 1 applic DAILY@2000 TOPIC 10/16/19 20:00 11/09/19 19:59 10/16/19 20:00 Dextrose 1,000 ml @ 75 mls/hr [id number] IV 10/17/19 23:00 11/16/19 22:59 Diphenhydramine HCl (Benadryl) 25 mg Q8H PRN GT Itching 10/16/19 08:30 11/14/19 08:29 Hydralazine HCl (Apresoline) 100 mg Q8HR GT 10/16/19 14:00 11/06/19 21:59 10/17/19 06:08 Iron Sucrose 100 mg/Sodium Chloride 60 ml @ 240 mls/hr BEDTIME IV 10/16/19 21:00 10/19/19 21:14 10/16/19 21:25 Lansoprazole (Prevacid) 30 mg DAILY GT 10/16/19 09:00 11/07/19 08:59 10/17/19 09:20 Levothyroxine Sodium (Synthroid) 125 mcg ACBREAKFAST GT 10/17/19 06:30 11/07/19 06:29 10/17/19 06:09 Loperamide HCl (Imodium) 2 mg Q4H PRN ORAL Diarrhea 10/17/19 07:15 11/16/19 07:14 Metoprolol Tartrate (Lopressor) 50 mg Q12HR GT 10/16/19 09:00 11/15/19 08:59 10/17/19 09:20 Morphine Sulfate (Morphine Sulfate) 1 mg Q4H PRN IVP SEVERE PAIN 10/16/19 08:45 10/20/19 20:44 Jessica Reyes MD Oct 17, 2019 09:55
--- NOTE | 2019-10-17 09:57 | NUR ---
NURSE NOTES: Pt had emesis x1 measuring 75mL. Feeding stopped. Gtube checked for residual which was present at 200mL. Dr. Mejia contacted.
[2019-10-17] MEDS ORDERED: Metoclopramide 10mg/2ml Inj IVP PRN (10:15)
[2019-10-17] MEDS: Meropenem 500 MG in NS 55 ML IVPB SCH ×2 (10:54→22:59)
[2019-10-17 12:00] VITALS: BP 130/72
[2019-10-17 16:00] VITALS: BP 132/64
--- NOTE | 2019-10-17 16:12 | Surgery Progress Note ---
Surgery Progress Note Subjective Additional Comments Patient seen and examined bedside. No acute events. Leukocytosis elevated. LFTs T bili trending down. CT ultrasound reviewed and unlikely cholecystitis but potential obstructed stone that is passed since. Will monitor and discussed with GI Objective Last 24 Hour Vital Signs Date Time Temp Pulse Resp B/P (MAP) Pulse Ox O2 Delivery O2 Flow Rate FiO2 10/17/19 13:59 130/72 10/17/19 12:00 97.9 100 18 130/72 (91) 98 10/17/19 12:00 96 10/17/19 09:20 101 135/75 10/17/19 09:20 101 135/75 10/17/19 08:03 Nasal Cannula 2.0 10/17/19 08:00 98.2 101 20 135/75 (95) 98 10/17/19 08:00 103 10/17/19 06:08 131/59 10/17/19 04:00 100 10/17/19 04:00 98.6 100 18 131/59 (83) 98 10/17/19 00:00 97 10/17/19 00:00 98.5 97 20 142/79 (100) 98 10/16/19 21:24 148/81 10/16/19 21:23 106 148/81 10/16/19 20:00 97.6 106 20 148/81 (103) 97 10/16/19 20:00 66 10/16/19 17:25 102 131/77 I&O Intake and Output 10/16/19 10/17/19 19:00 07:00 Intake Total 30 ml Balance 30 ml IV Total 30 ml # Voids 3 3 # Bowel Movements 2 3 Dressing: other Wound: other Drains: other Cardiovascular: RSR Respiratory: decreased breath sounds Abdomen: soft, present bowel sounds, non-distended Extremities: no cyanosis, other Laboratory Tests Test 10/17/19 05:19 White Blood Count 15.9 K/UL (4.8-10.8) H Red Blood Count 3.34 M/UL (4.20-5.40) L Hemoglobin 9.6 G/DL (12.0-16.0) L Hematocrit 29.5 % (37.0-47.0) L Mean Corpuscular Volume 88 FL (80-99) Mean Corpuscular Hemoglobin 28.8 PG (27.0-31.0) Mean Corpuscular Hemoglobin Concent 32.6 G/DL (32.0-36.0) Red Cell Distribution Width 14.1 % (11.6-14.8) Platelet Count 378 K/UL (150-450) Mean Platelet Volume 7.8 FL (6.5-10.1) Neutrophils (%) (Auto) % (45.0-75.0) Lymphocytes (%) (Auto) % (20.0-45.0) Monocytes (%) (Auto) % (1.0-10.0) Eosinophils (%) (Auto) % (0.0-3.0) Basophils (%) (Auto) % (0.0-2.0) Differential Total Cells Counted 100 Neutrophils % (Manual) 87 % (45-75) H Lymphocytes % (Manual) 8 % (20-45) L Monocytes % (Manual) 5 % (1-10) Eosinophils % (Manual) 0 % (0-3) Basophils % (Manual) 0 % (0-2) Band Neutrophils 0 % (0-8) Platelet Estimate Adequate Platelet Morphology Normal Anisocytosis 1+ Sodium Level 139 MMOL/L (136-145) Potassium Level 3.8 MMOL/L (3.5-5.1) Chloride Level 102 MMOL/L (98-107) Carbon Dioxide Level 26 MMOL/L (21-32) Anion Gap 11 mmol/L (5-15) Blood Urea Nitrogen 35 mg/dL (7-18) H Creatinine 3.5 MG/DL (0.55-1.30) H Estimat Glomerular Filtration Rate mL/min (>60) Glucose Level 81 MG/DL (74-106) Calcium Level 7.9 MG/DL (8.5-10.1) L Total Bilirubin 2.9 MG/DL (0.2-1.0) H Direct Bilirubin 2.3 MG/DL (0.0-0.3) H Aspartate Amino Transf (AST/SGOT) 71 U/L (15-37) H Alanine Aminotransferase (ALT/SGPT) 36 U/L (12-78) Alkaline Phosphatase 368 U/L (46-116) H Total Protein 6.3 G/DL (6.4-8.2) L Albumin 1.6 G/DL (3.4-5.0) L Globulin 4.7 g/dL Albumin/Globulin Ratio 0.3 (1.0-2.7) L Plan Problems: (1) Lactic acid acidosis Assessment & Plan: Patient noted to have leukocytosis, fevers, abdominal wall cellulitis, lactic acidosis. Abnormal labs. Etiology and work-up continuing currently with microbiology pending and on IV antibiotics Leukocytosis Elevated LFTs. Imaging noted. Unlikely cholecystitis but potential passed stone. Will discuss with GI for considerations of MRCP versus ERCP versus monitoring Local care being provided. Imaging noted Pt presented on admission with partially opened DTPI Sacrum.Base of wound extends from sacrum to R and L buttocks and is maroon with #3 small openings , each with slough at mid sacral area. Pt grimaced when affected area minimally palpated. Non-blanching erythema noted to R and L ischial regions. Moisture Intertrigo with surrounding erythema and denuded skin noted to R and L breasts. Mild odor noted each skin folds of breasts.Small amt sanguineous exudate noted from L breast. Mons pubis,labia majora, and medial aspects of both upper thighs erythematous and denuded. R ad L heels are firm and blanchable. Tx.Plan: [place] Liquid Skin Repair to R and L breasts(x1 application) applied to folds of each breasts. Apply Moisture Barrier paste to perineum with each incontinence care. Apply Moisture Barrier Paste to Sacrum.Cover with Optifoam drsgs. Change every 3 days and prn. APM/SIM Mattress overlay. Reposition at least every 2 hours or as tolerated. Off-load heels with pillow. (2) Sepsis Assessment & Plan: 73-year-old female with sepsis, lactic acidosis, renal insufficiency, cellulitis, leukocytosis. Febrile, hemodynamically stable, exam as above Coordinated with radiology for urgent temporary even as catheter insertion. Placed today and will discuss with nephrology for dialysis Antibiotics as per infectious disease Trend labs IV fluid resuscitation Dense consolidation in the posterior right lower lobe, likely pneumonia Liquid stool in the proximal colon, could indicate diarrheal illness Trace free intraperitoneal fluid Slight hepatic atrophy and surface nodularity raising possibility of cirrhotic change Small lesser sac varices and splenomegaly raises possibility of portal hypertension Pericardial effusion, also evident previously abd wall cellulitis superficial and lumps likely prior injection sites and not infected. cholelithiasis unlikely etiology unlikely etiology of sepsis. We will follow with recommendations Thank you for allowing me to participate in patient care Kirk Em Oct 17, 2019 16:12
--- NOTE | 2019-10-17 19:54 | NUR ---
HAND-OFF: Report given to Norbert NUNEZ. Patient stable. Endorsed plan of care.
--- NOTE | 2019-10-17 19:56 | NUR ---
NURSE NOTES: Received pt from ENRIQUE Regalado. Pt is resting in bed in no distress.IV site intact. Feeding currently on hold per doctor order. Bed locked in lowest position, call light within reach, bed alarm on. Will continue with plan of care.
[2019-10-17 20:00] VITALS: BP 130/66
[2019-10-17] MEDS: Dyna-Hex 2% Top Sol 2oz TOPIC SCH (20:26)
[2019-10-17] MEDS: Iron Sucrose 100 MG in NS 55 ML IV SCH (20:49)
[2019-10-18] VITALS: BP 140/78
[2019-10-18 04:00] VITALS: BP 123/64
[2019-10-18] MEDS: Levothyroxine 125mcg tab GT SCH (05:53)
[2019-10-18] MEDS: HydrALAZINE 50mg tab GT SCH ×3 (05:54→21:18)
--- NOTE | 2019-10-18 06:55 | General Progress Note ---
Assessment/Plan Problem List: (1) Sepsis ICD Codes: A41.9 - Sepsis, unspecified organism SNOMED: 28896473 (2) Lactic acid acidosis ICD Codes: E87.2 - Acidosis SNOMED: 45640638 (3) Anemia ICD Codes: D64.9 - Anemia, unspecified SNOMED: 612832833 (4) Alkalosis, metabolic ICD Codes: E87.3 - Alkalosis, metabolic SNOMED: 1924747 (5) Acidosis ICD Codes: E87.2 - Acidosis SNOMED: 49293316 (6) UTI (urinary tract infection) ICD Codes: N39.0 - Urinary tract infection, site not specified SNOMED: 35723054 (7) Acute renal failure (ARF) ICD Codes: N17.9 - Acute kidney failure, unspecified SNOMED: 66344289 Status: stable Assessment/Plan: iv abx follow up cultures wound care HD per renal monitor bp- may need to resume bp meds monitor for bleeding transfuse as needed gi follow up trend wbc monitor lfts repeat ct abd Subjective ROS Limited/Unobtainable: No Constitutional: Reports: malaise, weakness HEENT: Reports: no symptoms Cardiovascular: Reports: no symptoms Respiratory: Reports: no symptoms Gastrointestinal/Abdominal: Reports: abdominal pain, vomiting Genitourinary: Reports: no symptoms Neurologic/Psychiatric: Reports: pre-existing deficit Endocrine: Reports: no symptoms Hematologic/Lymphatic: Reports: anemia Allergies: Coded Allergies: ERYTHROMYCIN BASE (Unverified Allergy, Intermediate, 07/14/19) Per patient not allergic to medications or food All Systems: reviewed and negative except above Subjective vomited x 1 yesterday, high residuals. wbc trending up. +abd pain. Objective Last 24 Hour Vital Signs Date Time Temp Pulse Resp B/P (MAP) Pulse Ox O2 Delivery O2 Flow Rate FiO2 10/18/19 05:54 126/69 10/18/19 04:00 91 10/18/19 04:00 97.5 91 18 123/64 (83) 99 10/18/19 00:00 99.5 94 19 140/78 (98) 98 10/17/19 23:04 146/64 10/17/19 21:00 Nasal Cannula 2.0 10/17/19 20:49 95 130/66 10/17/19 20:00 98.0 97 20 130/66 (87) 100 10/17/19 20:00 97 10/17/19 17:47 98 132/64 10/17/19 16:00 97.3 98 20 132/64 (86) 99 10/17/19 16:00 96 10/17/19 13:59 130/72 10/17/19 12:00 97.9 100 18 130/72 (91) 98 10/17/19 12:00 96 10/17/19 09:20 101 135/75 10/17/19 09:20 101 135/75 10/17/19 08:03 Nasal Cannula 2.0 10/17/19 08:00 98.2 101 20 135/75 (95) 98 10/17/19 08:00 103 Intake and Output 10/17/19 10/18/19 19:00 07:00 Intake Total 245 ml Output Total 225 ml Balance 20 ml IV Total 175 ml Tube Feeding 70 ml Output Urine Total 150 ml Emesis 75 ml # Voids 1 # Bowel Movements 1 Laboratory Tests 10/18/19 02:40: Stool Occult Blood [Pending] Height (Feet): 5 Height (Inches): 2.00 Weight (Pounds): 218 Objective General Appearance: WD/WN, alert Neck: supple Cardiovascular: normal rate, regular rhythm Respiratory/Chest: chest wall non-tender, lungs clear, normal breath sounds Abdomen: normal bowel sounds, soft, no organomegaly, tender Edema: no edema noted Arm (L), no edema noted Arm (R), no edema noted Leg (L), no edema noted Leg (R), no edema noted Pedal (L), no edema noted Pedal (R), no edema noted Generalized Chema Hendricks MD Oct 18, 2019 06:55
--- NOTE | 2019-10-18 07:20 | NUR ---
HAND-OFF: Report given to ENRIQUE Drew. Pt is awake and resting in bed in no distress. Endorsed plan of care.
[2019-10-18 08:00] VITALS: BP 122/71
--- NOTE | 2019-10-18 08:01 | Diagnostic Imaging Report ---
EXAM: XR Chest, 1 View CLINICAL HISTORY: INFECT TECHNIQUE: Frontal view of the chest. COMPARISON: 10/14/2019 FINDINGS: Lungs: The study is slightly limited by shallow inspiration. There is no area of consolidation. The infiltrates at the lung bases are no longer seen. Pleural space: Unremarkable. No pneumothorax. Heart: Stable cardiac silhouette-at the upper limits of normal/borderline enlarged. Mediastinum: Unremarkable. Bones/joints: Unremarkable. IMPRESSION: Bibasilar opacities have resolved.
[2019-10-18 08:03] LABS: HEMATOCRIT 27.1 % (37.0-47.0); HEMOGLOBIN 8.8 G/DL (12.0-16.0); MEAN CORPUSCULAR VOLUME 89 FL (80-99); PLATELET COUNT 428 K/UL (150-450); RED BLOOD COUNT 3.04 M/UL (4.20-5.40); RED CELL DISTRIBUTION WIDTH 14.1 % (11.6-14.8); WHITE BLOOD COUNT 18.1 K/UL (4.8-10.8)
[2019-10-18 08:30] LABS: AMYLASE 122 U/L (25-115)
[2019-10-18 08:36] LABS: ALANINE AMINOTRANSFERASE 24 U/L (12-78); ALBUMIN 1.5 G/DL (3.4-5.0); ALBUMIN/GLOBULIN RATIO 0.3 (1.0-2.7); ALKALINE PHOSPHATASE 271 U/L (46-116); ANION GAP 10 mmol/L (5-15); ASPARTATE AMINO TRANSFERASE 51 U/L (15-37); BILIRUBIN,TOTAL 1.3 MG/DL (0.2-1.0); BLOOD UREA NITROGEN 41 mg/dL (7-18); CALCIUM 7.6 MG/DL (8.5-10.1); CARBON DIOXIDE 23 MMOL/L (21-32); CHLORIDE 104 MMOL/L (98-107); CREATININE 3.9 MG/DL (0.55-1.30); SODIUM 137 MMOL/L (136-145)
[2019-10-18 08:39] LABS: BILIRUBIN,DIRECT 0.4 MG/DL (0.0-0.3)
[2019-10-18] MEDS: Meropenem 500 MG in NS 55 ML IVPB SCH ×2 (08:43→21:59)
--- NOTE | 2019-10-18 09:43 | NUR ---
RD ASSESSMENT & RECOMMENDATIONS SEE CARE ACTIVITY FOR COMPLETE ASSESSMENT DAILY ESTIMATED NEEDS: Needs based on CKD IV, Wound 57.7kg abw 25-30 kcals/kg 0510-7230 total kcals (Without HD:0.6-1) (With HD: 1.25-1.8) g protein/kg (Without HD: 35-58) (With HD: 72-104) g total protein Fluid per MD mL/kg . total fluid mLs NUTRITION DIAGNOSIS: 1) Altered nutrition related lab values r/t JJ on CKD 4 as evidenced by elev creat (6.8 -> 3.0-> 3.5 trend back up), elev BUN (119->35), elev K (5.3-> wnl->5.0). elev Na (158 -> wnl), s/p placement of Broderick cath, HD x1. 2) Swallowing difficulty r/t dysphagia as evidenced by GT dep, TF currently held for residuals, vomiting x 1, +diarrhea, abd pain. CURRENT TF:NEPRO @35ml/hr x22 hrs -> HELD ENTERAL NUTRITION RECOMMENDATIONS: WITH CONTINUED HD: Nepro @ 42ml/hr x 22 hrs to provide 924ml, 1663kcal, 75g prot, 672ml free water * As medically able, resume TF (held for +vomiting, abd pain, +residuals) - W/ continued HD, rec to increase goal rate to 42ml/hr x 22 hrs (hold 1 hr before and after Synthroid med) - HOB over 30 degrees/ water flush per MD WITHOUT HD, maintain current TF of Nepro @ 35ml/hr x 22 hrs to provide 770ml, 1386 kcal, 62g pro, 560ml free H2o -> will meet 96% est kcal and 107% est pro needs ADDITIONAL RECOMMENDATIONS: 1) Calibrated bedscale wt for accurate CBW Bed scale reads 216.7# w/ EMR wt of 185# 2) Monitor renal fxn, monitor for continuation of HD (s/p HD x 1 on 10/09) 3) Monitor lytes, check f/up phos and mag level 4) Wound healing: add Nephrovite x 1 + Kael 1pkt BID 5) Consider re-check stool C-diff (last checked 10/11) -> Add probiotics, monitor for ability to resume TF
--- NOTE | 2019-10-18 11:40 | Diagnostic Imaging Report ---
EXAM: CT Abdomen and Pelvis Without Intravenous Contrast CLINICAL HISTORY: ABN LABS TECHNIQUE: Axial computed tomography images of the abdomen and pelvis without intravenous contrast. CTDI is 28.6 mGy and DLP is 1719.7 mGy-cm. One or more of the following dose reduction techniques were used: automated exposure control, adjustment of the mA and/or kV according to patient size, use of iterative reconstruction technique. COMPARISON: CT abdomen/pelvis on 10/07/2019 FINDINGS: Lung bases: Calcified granulomas in the right lower lobe. Pleural space: Small right pleural effusion. Associated atelectasis. Left basilar atelectasis. ABDOMEN: Liver: Cirrhotic changes of the liver. Gallbladder and bile ducts: Distended gallbladder with possible cholelithiasis. Nonspecific mild prominence of the gallbladder wall which may be related to underlying liver disease/ascites. Pancreas: Unremarkable. No ductal dilation. Spleen: Calcified granulomas in the spleen. Adrenals: Unremarkable. No mass. Kidneys and ureters: Mild nonspecific bilateral perinephric fat stranding. No hydronephrosis or stone. Small bilateral renal cysts. Stomach and bowel: Fluid throughout the colon is suggestive of diarrheal state. Mildly prominent fluid and gas-filled small bowel loops are nonspecific but may represent enteritis or ileus. No obstruction. PELVIS: Appendix: No findings to suggest acute appendicitis. Bladder: Unremarkable. No stones. Reproductive: Unremarkable as visualized. ABDOMEN and PELVIS: Intraperitoneal space: Moderate ascites. Bones/joints: Left hip arthroplasty which causes streak artifact that limits evaluation of portions of the pelvis. Grade 1 anterolisthesis of L4 on L5. No acute fracture. No dislocation. Soft tissues: Postsurgical changes of the anterior abdominal wall. Nodular densities in the subcutaneous fat of the right anterior abdominal wall may be related to injection changes. Injection granulomas in the gluteal soft tissues. Small fat-containing umbilical hernia. Vasculature: Atherosclerotic changes of the vasculature. No aortic aneurysm. Lymph nodes: Calcified right hilar lymph nodes. Tubes, lines and devices: Mild cardiomegaly. Small pericardial effusion. Probable tip of a central venous catheter at the junction of the SVC and right atrium. G-tube in place. IMPRESSION: 1. Small right pleural effusion. Associated atelectasis. Left basilar atelectasis. 2. Cirrhotic changes of the liver. 3. Distended gallbladder with possible cholelithiasis. Nonspecific mild prominence of the gallbladder wall which may be related to underlying liver disease/ascites. 4. Fluid throughout the colon is suggestive of diarrheal state. Mildly prominent fluid and gas-filled small bowel loops are nonspecific but may represent enteritis or ileus. 5. Moderate ascites.
--- NOTE | 2019-10-18 11:53 | Nephrology Progress Note ---
Assessment/Plan Problem List: (1) Healthcare-associated pneumonia (2) Anemia in chronic kidney disease (3) CKD (chronic kidney disease) stage 5, GFR less than 15 ml/min (4) Abdominal pain in female (5) CHF exacerbation (6) Sepsis (7) Ascites (8) Cirrhosis Plan nonoliguric, hold off dialysis,, cont rxx esbl sepsis, US cholelithiasis--might be source of sepsis, also cirrhosis and ascites, creat higher, hydrate, adjusted iv anemia Rx epogen feeding resumed+held again , CT noted Subjective Constitutional: Reports: weakness HEENT: Reports: no symptoms Genitourinary: Reports: incontinence Neurologic/Psychiatric: Reports: pre-existing deficit Subjective some mild abd pain Objective Objective Last 24 Hour Vital Signs Date Time Temp Pulse Resp B/P (MAP) Pulse Ox O2 Delivery O2 Flow Rate FiO2 10/18/19 09:00 Nasal Cannula 2.0 10/18/19 08:36 91 126/69 10/18/19 08:36 91 126/69 10/18/19 08:00 89 10/18/19 08:00 98.6 93 17 122/71 (88) 97 10/18/19 05:54 126/69 10/18/19 04:00 91 10/18/19 04:00 97.5 91 18 123/64 (83) 99 10/18/19 00:00 99.5 94 19 140/78 (98) 98 10/17/19 23:04 146/64 10/17/19 21:00 Nasal Cannula 2.0 10/17/19 20:49 95 130/66 10/17/19 20:00 98.0 97 20 130/66 (87) 100 10/17/19 20:00 97 10/17/19 17:47 98 132/64 10/17/19 16:00 97.3 98 20 132/64 (86) 99 10/17/19 16:00 96 10/17/19 13:59 130/72 10/17/19 12:00 97.9 100 18 130/72 (91) 98 10/17/19 12:00 96 Intake and Output 10/17/19 10/18/19 19:00 07:00 Intake Total 245 ml Output Total 225 ml Balance 20 ml IV Total 175 ml Tube Feeding 70 ml Output Urine Total 150 ml Emesis 75 ml # Voids 1 2 # Bowel Movements 1 3 Laboratory Tests 10/18/19 02:40: Stool Occult Blood Negative 10/18/19 06:30: White Blood Count 18.1H, Red Blood Count 3.04L, Hemoglobin 8.8L, Hematocrit 27.1L, Mean Corpuscular Volume 89, Mean Corpuscular Hemoglobin 29.1, Mean Corpuscular Hemoglobin Concent 32.6, Red Cell Distribution Width 14.1, Platelet Count 428, Mean Platelet Volume 6.9, Neutrophils (%) (Auto) , Lymphocytes (%) ( Auto) , Monocytes (%) (Auto) , Eosinophils (%) (Auto) , Basophils (%) (Auto) , Differential Total Cells Counted 100, Neutrophils % (Manual) 95H, Lymphocytes % (Manual) 2L, Monocytes % (Manual) 3, Eosinophils % (Manual) 0, Basophils % ( Manual) 0, Band Neutrophils 0, Platelet Estimate Adequate, Platelet Morphology Normal, Red Blood Cell Morphology Normal 10/18/19 07:12: Erythrocyte Sedimentation Rate 105H, Sodium Level 137, Potassium Level 5.0, Chloride Level 104, Carbon Dioxide Level 23, Anion Gap 10, Blood Urea Nitrogen 41H, Creatinine 3.9H, Estimat Glomerular Filtration Rate , Glucose Level 85, Calcium Level 7.6L, Total Bilirubin 1.3H, Direct Bilirubin 0.4H, Aspartate Amino Transf (AST/SGOT) 51H, Alanine Aminotransferase (ALT/SGPT) 24, Alkaline Phosphatase 271H, C-Reactive Protein, Quantitative > 70.0H, Total Protein 5.8L, Albumin 1.5L, Globulin 4.3, Albumin/Globulin Ratio 0.3L, Amylase Level 122H, Lipase 801H Height (Feet): 5 Height (Inches): 2.00 Weight (Pounds): 214 General Appearance: no apparent distress, alert, confused EENT: normal ENT inspection Neck: normal alignment Cardiovascular: regular rhythm Respiratory/Chest: lungs clear Abdomen: non tender, soft Extremities: trace edema Neurologic: motor weakness Jose Lemus MD Oct 18, 2019 11:53
[2019-10-18 12:00] VITALS: BP 124/72
--- NOTE | 2019-10-18 14:05 | Surgery Progress Note ---
Surgery Progress Note Subjective Additional Comments worsening leukocytosis exam unchanged lft's trending down cameron/lip pancreatitis chemical CT noted cont abx can consider cholecystostomy tube if note improving HIDA sunday Objective Last 24 Hour Vital Signs Date Time Temp Pulse Resp B/P (MAP) Pulse Ox O2 Delivery O2 Flow Rate FiO2 10/18/19 12:00 86 10/18/19 12:00 99.2 88 17 124/72 (89) 98 10/18/19 09:00 Nasal Cannula 2.0 10/18/19 08:36 91 126/69 10/18/19 08:36 91 126/69 10/18/19 08:00 89 10/18/19 08:00 98.6 93 17 122/71 (88) 97 10/18/19 05:54 126/69 10/18/19 04:00 91 10/18/19 04:00 97.5 91 18 123/64 (83) 99 10/18/19 00:00 99.5 94 19 140/78 (98) 98 10/17/19 23:04 146/64 10/17/19 21:00 Nasal Cannula 2.0 10/17/19 20:49 95 130/66 10/17/19 20:00 98.0 97 20 130/66 (87) 100 10/17/19 20:00 97 10/17/19 17:47 98 132/64 10/17/19 16:00 97.3 98 20 132/64 (86) 99 10/17/19 16:00 96 I&O Intake and Output 10/17/19 10/18/19 19:00 07:00 Intake Total 245 ml Output Total 225 ml Balance 20 ml IV Total 175 ml Tube Feeding 70 ml Output Urine Total 150 ml Emesis 75 ml # Voids 1 2 # Bowel Movements 1 3 Dressing: other Wound: other Drains: other Cardiovascular: RSR Respiratory: decreased breath sounds Abdomen: soft, present bowel sounds Extremities: no cyanosis, other Laboratory Tests Test 10/18/19 02:40 10/18/19 06:30 10/18/19 07:12 Stool Occult Blood Negative (NEGATIVE) White Blood Count 18.1 K/UL (4.8-10.8) H Red Blood Count 3.04 M/UL (4.20-5.40) L Hemoglobin 8.8 G/DL (12.0-16.0) L Hematocrit 27.1 % (37.0-47.0) L Mean Corpuscular Volume 89 FL (80-99) Mean Corpuscular Hemoglobin 29.1 PG (27.0-31.0) Mean Corpuscular Hemoglobin Concent 32.6 G/DL (32.0-36.0) Red Cell Distribution Width 14.1 % (11.6-14.8) Platelet Count 428 K/UL (150-450) Mean Platelet Volume 6.9 FL (6.5-10.1) Neutrophils (%) (Auto) % (45.0-75.0) Lymphocytes (%) (Auto) % (20.0-45.0) Monocytes (%) (Auto) % (1.0-10.0) Eosinophils (%) (Auto) % (0.0-3.0) Basophils (%) (Auto) % (0.0-2.0) Differential Total Cells Counted 100 Neutrophils % (Manual) 95 % (45-75) H Lymphocytes % (Manual) 2 % (20-45) L Monocytes % (Manual) 3 % (1-10) Eosinophils % (Manual) 0 % (0-3) Basophils % (Manual) 0 % (0-2) Band Neutrophils 0 % (0-8) Platelet Estimate Adequate Platelet Morphology Normal Red Blood Cell Morphology Normal Erythrocyte Sedimentation Rate 105 MM/HR (0-30) H Sodium Level 137 MMOL/L (136-145) Potassium Level 5.0 MMOL/L (3.5-5.1) Chloride Level 104 MMOL/L (98-107) Carbon Dioxide Level 23 MMOL/L (21-32) Anion Gap 10 mmol/L (5-15) Blood Urea Nitrogen 41 mg/dL (7-18) H Creatinine 3.9 MG/DL (0.55-1.30) H Estimat Glomerular Filtration Rate mL/min (>60) Glucose Level 85 MG/DL (74-106) Calcium Level 7.6 MG/DL (8.5-10.1) L Total Bilirubin 1.3 MG/DL (0.2-1.0) H Direct Bilirubin 0.4 MG/DL (0.0-0.3) H Aspartate Amino Transf (AST/SGOT) 51 U/L (15-37) H Alanine Aminotransferase (ALT/SGPT) 24 U/L (12-78) Alkaline Phosphatase 271 U/L (46-116) H C-Reactive Protein, Quantitative > 70.0 mg/dL (0.00-0.90) H Total Protein 5.8 G/DL (6.4-8.2) L Albumin 1.5 G/DL (3.4-5.0) L Globulin 4.3 g/dL Albumin/Globulin Ratio 0.3 (1.0-2.7) L Amylase Level 122 U/L (25-115) H Lipase 801 U/L (73-393) H Plan Problems: (1) Lactic acid acidosis Assessment & Plan: Patient noted to have leukocytosis, fevers, abdominal wall cellulitis, lactic acidosis. Abnormal labs. Etiology and work-up continuing currently with microbiology pending and on IV antibiotics Leukocytosis Elevated LFTs. Imaging noted. Unlikely cholecystitis but potential passed stone. Will discuss with GI for considerations of MRCP versus ERCP versus monitoring Local care being provided. Imaging noted Pt presented on admission with partially opened DTPI Sacrum.Base of wound extends from sacrum to R and L buttocks and is maroon with #3 small openings , each with slough at mid sacral area. Pt grimaced when affected area minimally palpated. Non-blanching erythema noted to R and L ischial regions. Moisture Intertrigo with surrounding erythema and denuded skin noted to R and L breasts. Mild odor noted each skin folds of breasts.Small amt sanguineous exudate noted from L breast. Mons pubis,labia majora, and medial aspects of both upper thighs erythematous and denuded. R ad L heels are firm and blanchable. Tx.Plan: [place] Liquid Skin Repair to R and L breasts(x1 application) applied to folds of each breasts. Apply Moisture Barrier paste to perineum with each incontinence care. Apply Moisture Barrier Paste to Sacrum.Cover with Optifoam drsgs. Change every 3 days and prn. APM/SIM Mattress overlay. Reposition at least every 2 hours or as tolerated. Off-load heels with pillow. (2) Sepsis Assessment & Plan: 73-year-old female with sepsis, lactic acidosis, renal insufficiency, cellulitis, leukocytosis. Febrile, hemodynamically stable, exam as above Coordinated with radiology for urgent temporary even as catheter insertion. Placed today and will discuss with nephrology for dialysis Antibiotics as per infectious disease Trend labs IV fluid resuscitation Dense consolidation in the posterior right lower lobe, likely pneumonia Liquid stool in the proximal colon, could indicate diarrheal illness Trace free intraperitoneal fluid Slight hepatic atrophy and surface nodularity raising possibility of cirrhotic change Small lesser sac varices and splenomegaly raises possibility of portal hypertension Pericardial effusion, also evident previously abd wall cellulitis superficial and lumps likely prior injection sites and not infected. cholelithiasis unlikely etiology lft's trending down cameron/lip pancreatitis chemical CT noted cont abx can consider cholecystostomy tube if note improving HIDA sunday We will follow with recommendations Thank you for allowing me to participate in patient care Kirk Em Oct 18, 2019 14:05
[2019-10-18 16:00] VITALS: BP 124/69
--- NOTE | 2019-10-18 16:57 | General Progress Note ---
Assessment/Plan Status: stable Assessment/Plan: Assessment 1. Chronic kidney disease. 2. Hypertension. 3. CHF. 4. Dysphagia with a G-tube. 5. History of sepsis. 6. Anemia. 7. Hepatitis C. 8. Pneumonia. 9. cirrhosis. 10. gallstones 11. Ascites 12. Rising WBC concerning 12. Diarrhea, ? TF, ? C Diff 13. TF intolerance / residuals concerning 14. Elevted lipase, ? significance Plan abx per ID, will add po vanco until second C Diff result available GTF as tolerated, Hold for residuals May need another paracentesis May need to order MRCP f/u second stool C Diff abx anemia work up GI procedures on hold for now elevate HOB Subjective Allergies: Coded Allergies: ERYTHROMYCIN BASE (Unverified Allergy, Intermediate, 07/14/19) Per patient not allergic to medications or food Subjective d/w RN at bedside noted increased residuals (+) diarrhea --> Second C Diff sent / pending CT noted: 1. Small right pleural effusion. Associated atelectasis. Left basilar atelectasis. 2. Cirrhotic changes of the liver. 3. Distended gallbladder with possible cholelithiasis. Nonspecific mild prominence of the gallbladder wall which may be related to underlying liver disease/ascites. 4. Fluid throughout the colon is suggestive of diarrheal state. Mildly prominent fluid and gas-filled small bowel loops are nonspecific but may represent enteritis or ileus. 5. Moderate ascites Objective Last 24 Hour Vital Signs Date Time Temp Pulse Resp B/P (MAP) Pulse Ox O2 Delivery O2 Flow Rate FiO2 10/18/19 14:16 124/72 10/18/19 12:00 86 10/18/19 12:00 99.2 88 17 124/72 (89) 98 10/18/19 09:00 Nasal Cannula 2.0 10/18/19 08:36 91 126/69 10/18/19 08:36 91 126/69 10/18/19 08:00 89 10/18/19 08:00 98.6 93 17 122/71 (88) 97 10/18/19 05:54 126/69 10/18/19 04:00 91 10/18/19 04:00 97.5 91 18 123/64 (83) 99 10/18/19 00:00 99.5 94 19 140/78 (98) 98 10/17/19 23:04 146/64 11/29/19 21:00 Nasal Cannula 2.0 10/17/19 20:49 95 130/66 10/17/19 20:00 98.0 97 20 130/66 (87) 100 10/17/19 20:00 97 10/17/19 17:47 98 132/64 Intake and Output 10/17/19 10/18/19 19:00 07:00 Intake Total 245 ml Output Total 225 ml Balance 20 ml IV Total 175 ml Tube Feeding 70 ml Output Urine Total 150 ml Emesis 75 ml # Voids 1 2 # Bowel Movements 1 3 Laboratory Tests 10/18/19 02:40: Stool Occult Blood Negative 10/18/19 06:30: White Blood Count 18.1H, Red Blood Count 3.04L, Hemoglobin 8.8L, Hematocrit 27.1L, Mean Corpuscular Volume 89, Mean Corpuscular Hemoglobin 29.1, Mean Corpuscular Hemoglobin Concent 32.6, Red Cell Distribution Width 14.1, Platelet Count 428, Mean Platelet Volume 6.9, Neutrophils (%) (Auto) , Lymphocytes (%) ( Auto) , Monocytes (%) (Auto) , Eosinophils (%) (Auto) , Basophils (%) (Auto) , Differential Total Cells Counted 100, Neutrophils % (Manual) 95H, Lymphocytes % (Manual) 2L, Monocytes % (Manual) 3, Eosinophils % (Manual) 0, Basophils % ( Manual) 0, Band Neutrophils 0, Platelet Estimate Adequate, Platelet Morphology Normal, Red Blood Cell Morphology Normal 10/18/19 07:12: Erythrocyte Sedimentation Rate 105H, Sodium Level 137, Potassium Level 5.0, Chloride Level 104, Carbon Dioxide Level 23, Anion Gap 10, Blood Urea Nitrogen 41H, Creatinine 3.9H, Estimat Glomerular Filtration Rate , Glucose Level 85, Calcium Level 7.6L, Total Bilirubin 1.3H, Direct Bilirubin 0.4H, Aspartate Amino Transf (AST/SGOT) 51H, Alanine Aminotransferase (ALT/SGPT) 24, Alkaline Phosphatase 271H, C-Reactive Protein, Quantitative > 70.0H, Total Protein 5.8L, Albumin 1.5L, Globulin 4.3, Albumin/Globulin Ratio 0.3L, Amylase Level 122H, Lipase 801H Height (Feet): 5 Height (Inches): 2.00 Weight (Pounds): 214 Objective Debilitated AA woman NCAT supple CTA RR Abd Distended, mild diffuse TTP, (+) GT no edema Mina Rao MD Oct 18, 2019 16:57
[2019-10-18] MEDS: Vancomycin oral 125mg/2.5ml ORAL SCH ×2 (18:10→21:21)
--- NOTE | 2019-10-18 19:30 | NUR ---
NURSE NOTES: Received report from ENRIQUE Drew. Patient in bed, responsive to verbal and tactile stimuli. Breathing regular and unlabored with no s/s of SOB noted. Patient is on a NC at 2L, saturating 99%. Patient's IJ is intact and running fluids at prescribed rate. Patient denies any pain or discomfort at this time. Bed in low position, breaks engaged, call light within reach. Will continue to monitor.
[2019-10-18 20:00] VITALS: BP 133/71
[2019-10-18] MEDS: Dyna-Hex 2% Top Sol 2oz TOPIC SCH (20:00)
[2019-10-18] MEDS: Iron Sucrose 100 MG in NS 55 ML IV SCH (21:17)
[2019-10-19] VITALS: BP 127/64
--- NOTE | 2019-10-19 03:09 | NUR ---
HAND-OFF: Report given to ENRIQUE Xie. Patient is in stable condition.
--- NOTE | 2019-10-19 03:10 | NUR ---
NURSE NOTES: Recieved patient from ENRIQUE Gonsalez, in stable condition, AOx1, able to make needs known to a degree, no distress, denies pain at this time, right IJ patent, gtube patent, bed low &locked, side rails upx3, call light within reach, will continue to monitor and reassess.
[2019-10-19 04:00] VITALS: BP 129/66
[2019-10-19] MEDS: HydrALAZINE 50mg tab GT SCH ×3 (06:00→21:24)
[2019-10-19] MEDS: Levothyroxine 125mcg tab GT SCH (06:12)
[2019-10-19 06:21] LABS: HEMATOCRIT 34.2 % (37.0-47.0); HEMOGLOBIN 10.9 G/DL (12.0-16.0); MEAN CORPUSCULAR VOLUME 90 FL (80-99); PLATELET COUNT 408 K/UL (150-450); RED BLOOD COUNT 3.79 M/UL (4.20-5.40); RED CELL DISTRIBUTION WIDTH 14.6 % (11.6-14.8); WHITE BLOOD COUNT 17.4 K/UL (4.8-10.8)
[2019-10-19 06:48] LABS: ALANINE AMINOTRANSFERASE 22 U/L (12-78); ALBUMIN 1.8 G/DL (3.4-5.0); ALBUMIN/GLOBULIN RATIO 0.3 (1.0-2.7); ALKALINE PHOSPHATASE 244 U/L (46-116); ANION GAP 14 mmol/L (5-15); ASPARTATE AMINO TRANSFERASE 37 U/L (15-37); BILIRUBIN,TOTAL 1.2 MG/DL (0.2-1.0); BLOOD UREA NITROGEN 42 mg/dL (7-18); CALCIUM 8.1 MG/DL (8.5-10.1); CARBON DIOXIDE 20 MMOL/L (21-32); CHLORIDE 98 MMOL/L (98-107); POTASSIUM 3.9 MMOL/L (3.5-5.1); SODIUM 131 MMOL/L (136-145)
[2019-10-19 06:52] LABS: BILIRUBIN,DIRECT 0.6 MG/DL (0.0-0.3)
[2019-10-19 07:01] LABS: AMYLASE 159 U/L (25-115)
--- NOTE | 2019-10-19 07:05 | NUR ---
NURSE NOTES: Report received from ENRIQUE Cheney. Patient in 2L NC. Denies pain or SOB. R IJ running D5 at 1.5. Repositioned for comfort. Bed on lowest position, side rails upx2. Brakes engaged. Call light placed within easy reach.
--- NOTE | 2019-10-19 07:17 | NUR ---
HAND-OFF: Report given to ENRIQUE Vanegas,patient in stable condition, plan of care endorsed.
[2019-10-19 08:00] VITALS: BP 119/72
--- NOTE | 2019-10-19 08:37 | NUR ---
NURSE NOTES: Feeding held per Dr. Hendricks.
--- NOTE | 2019-10-19 08:45 | NUR ---
NURSE NOTES: Informed tube feeding held per night RN following residual 200.
--- NOTE | 2019-10-19 09:04 | General Progress Note ---
Assessment/Plan Status: stable Assessment/Plan: Assessment 1. Chronic kidney disease. 2. Hypertension. 3. CHF. 4. Dysphagia, s/p G-tube. 5. History of sepsis. 6. Anemia. 7. Hepatitis C. 8. Pneumonia. 9. cirrhosis. 10. gallstones 11. Ascites 12. Rising WBC concerning 12. Diarrhea, ? TF - C Diff (-) 13. TF intolerance / residuals concerning 14. Elevted lipase, ? significance Plan abx per ID d/c po vanco GTF as tolerated, Hold for residuals PRN low dose Imodium hold TF and re check lipase May need another paracentesis Check MRCP and HIDA abx anemia work up elevate HOB Subjective Allergies: Coded Allergies: ERYTHROMYCIN BASE (Unverified Allergy, Intermediate, 07/14/19) Per patient not allergic to medications or food Subjective d/w RN at bedside noted increased residuals (+) diarrhea --> Second C Diff - negative by RN report high residuals noted -- TF held still with diarrhea and leukocytosis Objective Last 24 Hour Vital Signs Date Time Temp Pulse Resp B/P (MAP) Pulse Ox O2 Delivery O2 Flow Rate FiO2 10/19/19 08:00 96 Nasal Cannula 2.0 28 10/19/19 06:00 125/60 10/19/19 04:00 86 10/19/19 04:00 97.0 88 16 129/66 (87) 96 10/19/19 00:00 98.8 83 18 127/64 (85) 96 10/19/19 00:00 81 10/18/19 21:18 85 133/71 10/18/19 21:18 133/71 10/18/19 21:00 Nasal Cannula 2.0 10/18/19 20:00 98.4 85 20 133/71 (91) 99 10/18/19 20:00 82 10/18/19 18:10 86 124/72 10/18/19 16:00 98.9 79 16 124/69 (87) 94 10/18/19 16:00 85 10/18/19 14:16 124/72 10/18/19 12:00 86 10/18/19 12:00 99.2 88 17 124/72 (89) 98 10/18/19 09:00 Nasal Cannula 2.0 Intake and Output 10/18/19 10/19/19 19:00 07:00 Intake Total 35 ml 0 ml Output Total 1100 ml Balance -1065 ml 0 ml Tube Feeding 35 ml 0 ml Output Urine Total 500 ml Stool Total 600 ml # Bowel Movements 2 Laboratory Tests 10/19/19 05:40: White Blood Count 17.4H, Red Blood Count 3.79L, Hemoglobin 10.9L, Hematocrit 34.2L, Mean Corpuscular Volume 90, Mean Corpuscular Hemoglobin 28.6, Mean Corpuscular Hemoglobin Concent 31.8L, Red Cell Distribution Width 14.6, Platelet Count 408, Mean Platelet Volume 7.1, Neutrophils (%) (Auto) , Lymphocytes (%) (Auto) , Monocytes (%) (Auto) , Eosinophils (%) (Auto) , Basophils (%) (Auto) , Differential Total Cells Counted 100, Neutrophils % ( Manual) 85H, Lymphocytes % (Manual) 7L, Monocytes % (Manual) 8, Eosinophils % ( Manual) 0, Basophils % (Manual) 0, Band Neutrophils 0, Platelet Estimate Adequate, Platelet Morphology Normal, Anisocytosis 1+, Sodium Level 131L, Potassium Level 3.9, Chloride Level 98, Carbon Dioxide Level 20L, Anion Gap 14, Blood Urea Nitrogen 42H, Creatinine 4.0H, Estimat Glomerular Filtration Rate , Glucose Level 97, Calcium Level 8.1L, Total Bilirubin 1.2H, Direct Bilirubin 0.6H, Aspartate Amino Transf (AST/SGOT) 37, Alanine Aminotransferase (ALT/SGPT) 22, Alkaline Phosphatase 244H, Total Protein 7.3, Albumin 1.8L, Globulin 5.5, Albumin/Globulin Ratio 0.3L, Amylase Level 159H, Lipase 1182H Height (Feet): 5 Height (Inches): 2.00 Weight (Pounds): 217 Objective Debilitated AA woman NCAT supple CTA RR Abd Distended, mild diffuse TTP, (+) GT no edema Mina Rao MD Oct 19, 2019 09:04
--- NOTE | 2019-10-19 09:08 | General Progress Note ---
Assessment/Plan Problem List: (1) Sepsis ICD Codes: A41.9 - Sepsis, unspecified organism SNOMED: 03086534 (2) Lactic acid acidosis ICD Codes: E87.2 - Acidosis SNOMED: 57762861 (3) Anemia ICD Codes: D64.9 - Anemia, unspecified SNOMED: 391776304 (4) Alkalosis, metabolic ICD Codes: E87.3 - Alkalosis, metabolic SNOMED: 5677063 (5) Acidosis ICD Codes: E87.2 - Acidosis SNOMED: 89473014 (6) UTI (urinary tract infection) ICD Codes: N39.0 - Urinary tract infection, site not specified SNOMED: 90813242 (7) Acute renal failure (ARF) ICD Codes: N17.9 - Acute kidney failure, unspecified SNOMED: 39325248 Status: stable Assessment/Plan: iv abx follow up cultures wound care HD per renal monitor bp- may need to resume bp meds monitor for bleeding transfuse as needed gi follow up trend wbc monitor lfts surgery follow up re: ct ?mrcp Subjective ROS Limited/Unobtainable: No Constitutional: Reports: malaise, weakness HEENT: Reports: no symptoms Cardiovascular: Reports: no symptoms Respiratory: Reports: no symptoms Gastrointestinal/Abdominal: Reports: abdominal pain Genitourinary: Reports: no symptoms Neurologic/Psychiatric: Reports: pre-existing deficit, seizure Endocrine: Reports: no symptoms Hematologic/Lymphatic: Reports: anemia Allergies: Coded Allergies: ERYTHROMYCIN BASE (Unverified Allergy, Intermediate, 07/14/19) Per patient not allergic to medications or food All Systems: reviewed and negative except above Subjective abd pain. elevated lipase noted, no fevers or chills. no sob. ct with distended GB Objective Last 24 Hour Vital Signs Date Time Temp Pulse Resp B/P (MAP) Pulse Ox O2 Delivery O2 Flow Rate FiO2 10/19/19 08:00 96 Nasal Cannula 2.0 28 10/19/19 06:00 125/60 10/19/19 04:00 86 10/19/19 04:00 97.0 88 16 129/66 (87) 96 10/19/19 00:00 98.8 83 18 127/64 (85) 96 10/19/19 00:00 81 10/18/19 21:18 85 133/71 10/18/19 21:18 133/71 10/18/19 21:00 Nasal Cannula 2.0 10/18/19 20:00 98.4 85 20 133/71 (91) 99 10/18/19 20:00 82 10/18/19 18:10 86 124/72 10/18/19 16:00 98.9 79 16 124/69 (87) 94 10/18/19 16:00 85 10/18/19 14:16 124/72 10/18/19 12:00 86 10/18/19 12:00 99.2 88 17 124/72 (89) 98 Intake and Output 10/18/19 10/19/19 19:00 07:00 Intake Total 35 ml 0 ml Output Total 1100 ml Balance -1065 ml 0 ml Tube Feeding 35 ml 0 ml Output Urine Total 500 ml Stool Total 600 ml # Bowel Movements 2 Laboratory Tests 10/19/19 05:40: White Blood Count 17.4H, Red Blood Count 3.79L, Hemoglobin 10.9L, Hematocrit 34.2L, Mean Corpuscular Volume 90, Mean Corpuscular Hemoglobin 28.6, Mean Corpuscular Hemoglobin Concent 31.8L, Red Cell Distribution Width 14.6, Platelet Count 408, Mean Platelet Volume 7.1, Neutrophils (%) (Auto) , Lymphocytes (%) (Auto) , Monocytes (%) (Auto) , Eosinophils (%) (Auto) , Basophils (%) (Auto) , Differential Total Cells Counted 100, Neutrophils % ( Manual) 85H, Lymphocytes % (Manual) 7L, Monocytes % (Manual) 8, Eosinophils % ( Manual) 0, Basophils % (Manual) 0, Band Neutrophils 0, Platelet Estimate Adequate, Platelet Morphology Normal, Anisocytosis 1+, Sodium Level 131L, Potassium Level 3.9, Chloride Level 98, Carbon Dioxide Level 20L, Anion Gap 14, Blood Urea Nitrogen 42H, Creatinine 4.0H, Estimat Glomerular Filtration Rate , Glucose Level 97, Calcium Level 8.1L, Total Bilirubin 1.2H, Direct Bilirubin 0.6H, Aspartate Amino Transf (AST/SGOT) 37, Alanine Aminotransferase (ALT/SGPT) 22, Alkaline Phosphatase 244H, Total Protein 7.3, Albumin 1.8L, Globulin 5.5, Albumin/Globulin Ratio 0.3L, Amylase Level 159H, Lipase 1182H Height (Feet): 5 Height (Inches): 2.00 Weight (Pounds): 217 Objective General Appearance: WD/WN, alert Neck: supple Cardiovascular: normal rate, regular rhythm Respiratory/Chest: chest wall non-tender, lungs clear, normal breath sounds Abdomen: normal bowel sounds, soft, no organomegaly, tender Edema: no edema noted Arm (L), no edema noted Arm (R), no edema noted Leg (L), no edema noted Leg (R), no edema noted Pedal (L), no edema noted Pedal (R), no edema noted Generalized Chema Hendricks MD Oct 19, 2019 09:08
[2019-10-19] MEDS: Meropenem 500 MG in NS 55 ML IVPB SCH ×2 (09:35→21:57)
[2019-10-19] MEDS: Vancomycin oral 125mg/2.5ml ORAL SCH ×4 (09:38→21:23)
--- NOTE | 2019-10-19 10:43 | Nephrology Progress Note ---
Assessment/Plan Problem List: (1) Healthcare-associated pneumonia (2) Anemia in chronic kidney disease (3) CKD (chronic kidney disease) stage 5, GFR less than 15 ml/min (4) Abdominal pain in female (5) CHF exacerbation (6) Sepsis (7) Ascites (8) Cirrhosis Plan nonoliguric, hold off dialysis,, cont rxx esbl sepsis, US cholelithiasis--might be source of sepsis, also cirrhosis and ascites, creat higher, hydrate, adjusted iv anemia Rx epogen feeding held again , CT noted Subjective HEENT: Reports: no symptoms Neurologic/Psychiatric: Reports: pre-existing deficit Subjective mod diarrhea, npo Objective Objective Last 24 Hour Vital Signs Date Time Temp Pulse Resp B/P (MAP) Pulse Ox O2 Delivery O2 Flow Rate FiO2 10/19/19 09:37 93 119/72 10/19/19 09:36 93 119/72 10/19/19 08:00 89 10/19/19 08:00 96 Nasal Cannula 2.0 28 10/19/19 06:00 125/60 10/19/19 04:00 86 10/19/19 04:00 97.0 88 16 129/66 (87) 96 10/19/19 00:00 98.8 83 18 127/64 (85) 96 10/19/19 00:00 81 10/18/19 21:18 85 133/71 10/18/19 21:18 133/71 10/18/19 21:00 Nasal Cannula 2.0 10/18/19 20:00 98.4 85 20 133/71 (91) 99 10/18/19 20:00 82 10/18/19 18:10 86 124/72 10/18/19 16:00 98.9 79 16 124/69 (87) 94 10/18/19 16:00 85 10/18/19 14:16 124/72 10/18/19 12:00 86 10/18/19 12:00 99.2 88 17 124/72 (89) 98 Intake and Output 10/18/19 10/19/19 19:00 07:00 Intake Total 35 ml 0 ml Output Total 1100 ml Balance -1065 ml 0 ml Tube Feeding 35 ml 0 ml Output Urine Total 500 ml Stool Total 600 ml # Bowel Movements 2 Laboratory Tests 10/19/19 05:40: White Blood Count 17.4H, Red Blood Count 3.79L, Hemoglobin 10.9L, Hematocrit 34.2L, Mean Corpuscular Volume 90, Mean Corpuscular Hemoglobin 28.6, Mean Corpuscular Hemoglobin Concent 31.8L, Red Cell Distribution Width 14.6, Platelet Count 408, Mean Platelet Volume 7.1, Neutrophils (%) (Auto) , Lymphocytes (%) (Auto) , Monocytes (%) (Auto) , Eosinophils (%) (Auto) , Basophils (%) (Auto) , Differential Total Cells Counted 100, Neutrophils % ( Manual) 85H, Lymphocytes % (Manual) 7L, Monocytes % (Manual) 8, Eosinophils % ( Manual) 0, Basophils % (Manual) 0, Band Neutrophils 0, Platelet Estimate Adequate, Platelet Morphology Normal, Anisocytosis 1+, Sodium Level 131L, Potassium Level 3.9, Chloride Level 98, Carbon Dioxide Level 20L, Anion Gap 14, Blood Urea Nitrogen 42H, Creatinine 4.0H, Estimat Glomerular Filtration Rate , Glucose Level 97, Calcium Level 8.1L, Total Bilirubin 1.2H, Direct Bilirubin 0.6H, Aspartate Amino Transf (AST/SGOT) 37, Alanine Aminotransferase (ALT/SGPT) 22, Alkaline Phosphatase 244H, Total Protein 7.3, Albumin 1.8L, Globulin 5.5, Albumin/Globulin Ratio 0.3L, Amylase Level 159H, Lipase 1182H Height (Feet): 5 Height (Inches): 2.00 Weight (Pounds): 217 General Appearance: alert, confused, morbidly obese EENT: normal ENT inspection Neck: normal alignment, supple Cardiovascular: regular rhythm Respiratory/Chest: lungs clear Abdomen: non tender, soft Extremities: trace edema Neurologic: motor weakness Jose Lemus MD Oct 19, 2019 10:43
--- NOTE | 2019-10-19 11:27 | Infectious Diseases Prog Note ---
Assessment/Plan Assessment/Plan IMPRESSION: 1. E, coli sepsis 2. pneumonia in right lower lobe. 3. Acute renal failure. 4. Chronic kidney disease. 5. Hyperkalemia, corrected 6. Hypernatremia, corrected 7. Hypoxemia. 8. Anemia. 9. Thrombocytopenia. 10. Hypothyroidism. 11. Recent MRSA sepsis. 12. Parkinson disease. 13. Dementia. 14. Cirrhosis 15. Portal hypertension 16. Cholelithiasis RECOMMENDATION: continue Meropenem Will f/u CBC Subjective ROS Limited/Unobtainable: Yes Constitutional: Denies: fever Allergies: Coded Allergies: ERYTHROMYCIN BASE (Unverified Allergy, Intermediate, 07/14/19) Per patient not allergic to medications or food Objective Vital Signs Last 24 Hour Vital Signs Date Time Temp Pulse Resp B/P (MAP) Pulse Ox O2 Delivery O2 Flow Rate FiO2 10/19/19 09:37 93 119/72 10/19/19 09:36 93 119/72 10/19/19 09:00 Nasal Cannula 2.0 10/19/19 08:00 98.9 93 17 119/72 (88) 98 10/19/19 08:00 89 10/19/19 08:00 96 Nasal Cannula 2.0 28 10/19/19 06:00 125/60 10/19/19 04:00 86 10/19/19 04:00 97.0 88 16 129/66 (87) 96 10/19/19 00:00 98.8 83 18 127/64 (85) 96 10/19/19 00:00 81 10/18/19 21:18 85 133/71 10/18/19 21:18 133/71 10/18/19 21:00 Nasal Cannula 2.0 10/18/19 20:00 98.4 85 20 133/71 (91) 99 10/18/19 20:00 82 10/18/19 18:10 86 124/72 10/18/19 16:00 98.9 79 16 124/69 (87) 94 10/18/19 16:00 85 10/18/19 14:16 124/72 10/18/19 12:00 86 10/18/19 12:00 99.2 88 17 124/72 (89) 98 Height (Feet): 5 Height (Inches): 2.00 Weight (Pounds): 217 General Appearance: no acute distress HEENT: mucous membranes moist Respiratory/Chest: lungs clear Cardiovascular: normal rate, other - RIJ line Abdomen: soft, non tender, other - GT feeding Skin: ulcers, other - early sacral Neurologic/Psychiatric: other - opens eyes Microbiology Date/Time Source Procedure Growth Status 10/17/19 11:07 Blood Blood Culture - Preliminary NO GROWTH AFTER 24 HOURS Resulted 10/17/19 10:30 Blood Blood Culture - Preliminary NO GROWTH AFTER 24 HOURS Resulted 10/18/19 02:40 Stool Clostridium difficile Toxin Assay - Final Complete Laboratory Tests Test 10/19/19 05:40 White Blood Count 17.4 K/UL (4.8-10.8) H Red Blood Count 3.79 M/UL (4.20-5.40) L Hemoglobin 10.9 G/DL (12.0-16.0) L Hematocrit 34.2 % (37.0-47.0) L Mean Corpuscular Volume 90 FL (80-99) Mean Corpuscular Hemoglobin 28.6 PG (27.0-31.0) Mean Corpuscular Hemoglobin Concent 31.8 G/DL (32.0-36.0) L Red Cell Distribution Width 14.6 % (11.6-14.8) Platelet Count 408 K/UL (150-450) Mean Platelet Volume 7.1 FL (6.5-10.1) Neutrophils (%) (Auto) % (45.0-75.0) Lymphocytes (%) (Auto) % (20.0-45.0) Monocytes (%) (Auto) % (1.0-10.0) Eosinophils (%) (Auto) % (0.0-3.0) Basophils (%) (Auto) % (0.0-2.0) Differential Total Cells Counted 100 Neutrophils % (Manual) 85 % (45-75) H Lymphocytes % (Manual) 7 % (20-45) L Monocytes % (Manual) 8 % (1-10) Eosinophils % (Manual) 0 % (0-3) Basophils % (Manual) 0 % (0-2) Band Neutrophils 0 % (0-8) Platelet Estimate Adequate Platelet Morphology Normal Anisocytosis 1+ Sodium Level 131 MMOL/L (136-145) L Potassium Level 3.9 MMOL/L (3.5-5.1) Chloride Level 98 MMOL/L (98-107) Carbon Dioxide Level 20 MMOL/L (21-32) L Anion Gap 14 mmol/L (5-15) Blood Urea Nitrogen 42 mg/dL (7-18) H Creatinine 4.0 MG/DL (0.55-1.30) H Estimat Glomerular Filtration Rate mL/min (>60) Glucose Level 97 MG/DL (74-106) Calcium Level 8.1 MG/DL (8.5-10.1) L Total Bilirubin 1.2 MG/DL (0.2-1.0) H Direct Bilirubin 0.6 MG/DL (0.0-0.3) H Aspartate Amino Transf (AST/SGOT) 37 U/L (15-37) Alanine Aminotransferase (ALT/SGPT) 22 U/L (12-78) Alkaline Phosphatase 244 U/L (46-116) H Total Protein 7.3 G/DL (6.4-8.2) Albumin 1.8 G/DL (3.4-5.0) L Globulin 5.5 g/dL Albumin/Globulin Ratio 0.3 (1.0-2.7) L Amylase Level 159 U/L (25-115) H Lipase 1182 U/L (73-393) H Current Medications Medications (Trade) Dose Ordered Sig/Jonathan Route PRN Reason Start Time Stop Time Status Last Admin Dose Admin Acetaminophen (Tylenol) 650 mg Q4H PRN GT Mild Pain/Temp > 100.5 10/16/19 08:30 11/06/19 20:29 10/16/19 11:34 Amlodipine Besylate (Norvasc) 5 mg BID GT 10/16/19 09:00 11/13/19 17:59 10/19/19 09:37 Barium Sulfate (Readi-Cat 2) 450 ml NOW PRN ORAL Radiology Procedure 10/18/19 07:00 10/20/19 06:55 10/18/19 08:43 Chlorhexidine Gluconate (Meredith-Hex 2%) 1 applic DAILY@1999 TOPIC 10/16/19 20:00 11/09/19 19:59 10/18/19 20:00 Diphenhydramine HCl (Benadryl) 25 mg Q8H PRN GT Itching 10/16/19 08:30 11/14/19 08:29 10/18/19 01:58 Hydralazine HCl (Apresoline) 100 mg Q8HR GT 10/16/19 14:00 11/06/19 21:59 10/18/19 21:18 Iron Sucrose 100 mg/Sodium Chloride 60 ml @ 240 mls/hr BEDTIME IV 10/16/19 21:00 10/19/19 21:14 10/18/19 21:17 Lansoprazole (Prevacid) 30 mg DAILY GT 10/16/19 09:00 11/07/19 08:59 10/19/19 09:35 Levothyroxine Sodium (Synthroid) 125 mcg ACBREAKFAST GT 10/17/19 06:30 11/07/19 06:29 10/19/19 06:12 Loperamide HCl (Imodium) 2 mg Q12H PRN NG Diarrhea 10/19/19 08:30 11/18/19 08:29 10/19/19 09:44 Meropenem 500 mg/ Sodium Chloride 55 ml @ 110 mls/hr EVERY 12 HOURS IVPB 10/17/19 11:00 10/22/19 10:59 10/19/19 09:35 Metoclopramide HCl (Reglan) 5 mg Q6H PRN IVP Nausea & Vomiting 10/17/19 10:15 11/16/19 10:14 10/18/19 01:58 Metoprolol Tartrate (Lopressor) 50 mg Q12HR GT 10/16/19 09:00 11/15/19 08:59 10/19/19 09:36 Morphine Sulfate (Morphine Sulfate) 1 mg Q4H PRN IVP SEVERE PAIN 10/16/19 08:45 10/20/19 20:44 Sodium Chloride 1,000 ml @ 175 mls/hr Q5H43M IV 10/19/19 10:45 11/18/19 10:44 Vancomycin HCl (Firvanq) 125 mg FOUR TIMES A DAY ORAL 10/18/19 18:00 10/25/19 17:59 10/19/19 09:38 Ruperto Freedman MD Oct 19, 2019 11:27
[2019-10-19 12:00] VITALS: BP 138/73
--- NOTE | 2019-10-19 13:13 | Surgery Progress Note ---
Surgery Progress Note Subjective Additional Comments wbc 17k lip >1k lfts improved pending HIDA and MRCP pending c diff cont abx trend labs Objective Last 24 Hour Vital Signs Date Time Temp Pulse Resp B/P (MAP) Pulse Ox O2 Delivery O2 Flow Rate FiO2 10/19/19 12:00 89 10/19/19 09:37 93 119/72 10/19/19 09:36 93 119/72 10/19/19 09:00 Nasal Cannula 2.0 10/19/19 08:00 98.9 93 17 119/72 (88) 98 10/19/19 08:00 89 10/19/19 08:00 96 Nasal Cannula 2.0 28 10/19/19 06:00 125/60 10/19/19 04:00 86 10/19/19 04:00 97.0 88 16 129/66 (87) 96 10/19/19 00:00 98.8 83 18 127/64 (85) 96 10/19/19 00:00 81 10/18/19 21:18 85 133/71 10/18/19 21:18 133/71 10/18/19 21:00 Nasal Cannula 2.0 10/18/19 20:00 98.4 85 20 133/71 (91) 99 10/18/19 20:00 82 10/18/19 18:10 86 124/72 10/18/19 16:00 98.9 79 16 124/69 (87) 94 10/18/19 16:00 85 10/18/19 14:16 124/72 I&O Intake and Output 10/18/19 10/19/19 19:00 07:00 Intake Total 35 ml 0 ml Output Total 1100 ml Balance -1065 ml 0 ml Tube Feeding 35 ml 0 ml Output Urine Total 500 ml Stool Total 600 ml # Bowel Movements 2 Dressing: other Wound: other Drains: other Cardiovascular: RSR Respiratory: decreased breath sounds Abdomen: soft, present bowel sounds, non-distended Extremities: no cyanosis, other Laboratory Tests Test 10/19/19 05:40 White Blood Count 17.4 K/UL (4.8-10.8) H Red Blood Count 3.79 M/UL (4.20-5.40) L Hemoglobin 10.9 G/DL (12.0-16.0) L Hematocrit 34.2 % (37.0-47.0) L Mean Corpuscular Volume 90 FL (80-99) Mean Corpuscular Hemoglobin 28.6 PG (27.0-31.0) Mean Corpuscular Hemoglobin Concent 31.8 G/DL (32.0-36.0) L Red Cell Distribution Width 14.6 % (11.6-14.8) Platelet Count 408 K/UL (150-450) Mean Platelet Volume 7.1 FL (6.5-10.1) Neutrophils (%) (Auto) % (45.0-75.0) Lymphocytes (%) (Auto) % (20.0-45.0) Monocytes (%) (Auto) % (1.0-10.0) Eosinophils (%) (Auto) % (0.0-3.0) Basophils (%) (Auto) % (0.0-2.0) Differential Total Cells Counted 100 Neutrophils % (Manual) 85 % (45-75) H Lymphocytes % (Manual) 7 % (20-45) L Monocytes % (Manual) 8 % (1-10) Eosinophils % (Manual) 0 % (0-3) Basophils % (Manual) 0 % (0-2) Band Neutrophils 0 % (0-8) Platelet Estimate Adequate Platelet Morphology Normal Anisocytosis 1+ Sodium Level 131 MMOL/L (136-145) L Potassium Level 3.9 MMOL/L (3.5-5.1) Chloride Level 98 MMOL/L (98-107) Carbon Dioxide Level 20 MMOL/L (21-32) L Anion Gap 14 mmol/L (5-15) Blood Urea Nitrogen 42 mg/dL (7-18) H Creatinine 4.0 MG/DL (0.55-1.30) H Estimat Glomerular Filtration Rate mL/min (>60) Glucose Level 97 MG/DL (74-106) Calcium Level 8.1 MG/DL (8.5-10.1) L Total Bilirubin 1.2 MG/DL (0.2-1.0) H Direct Bilirubin 0.6 MG/DL (0.0-0.3) H Aspartate Amino Transf (AST/SGOT) 37 U/L (15-37) Alanine Aminotransferase (ALT/SGPT) 22 U/L (12-78) Alkaline Phosphatase 244 U/L (46-116) H Total Protein 7.3 G/DL (6.4-8.2) Albumin 1.8 G/DL (3.4-5.0) L Globulin 5.5 g/dL Albumin/Globulin Ratio 0.3 (1.0-2.7) L Amylase Level 159 U/L (25-115) H Lipase 1182 U/L (73-393) H Plan Problems: (1) Lactic acid acidosis Assessment & Plan: Patient noted to have leukocytosis, fevers, abdominal wall cellulitis, lactic acidosis. Abnormal labs. Etiology and work-up continuing currently with microbiology pending and on IV antibiotics Leukocytosis Elevated LFTs. Imaging noted. Unlikely cholecystitis but potential passed stone. Will discuss with GI for considerations of MRCP versus ERCP versus monitoring Local care being provided. Imaging noted Pt presented on admission with partially opened DTPI Sacrum.Base of wound extends from sacrum to R and L buttocks and is maroon with #3 small openings , each with slough at mid sacral area. Pt grimaced when affected area minimally palpated. Non-blanching erythema noted to R and L ischial regions. Moisture Intertrigo with surrounding erythema and denuded skin noted to R and L breasts. Mild odor noted each skin folds of breasts.Small amt sanguineous exudate noted from L breast. Mons pubis,labia majora, and medial aspects of both upper thighs erythematous and denuded. R ad L heels are firm and blanchable. Tx.Plan: [place] Liquid Skin Repair to R and L breasts(x1 application) applied to folds of each breasts. Apply Moisture Barrier paste to perineum with each incontinence care. Apply Moisture Barrier Paste to Sacrum.Cover with Optifoam drsgs. Change every 3 days and prn. APM/SIM Mattress overlay. Reposition at least every 2 hours or as tolerated. Off-load heels with pillow. (2) Sepsis Assessment & Plan: 73-year-old female with sepsis, lactic acidosis, renal insufficiency, cellulitis, leukocytosis. Febrile, hemodynamically stable, exam as above Coordinated with radiology for urgent temporary even as catheter insertion. Placed today and will discuss with nephrology for dialysis Antibiotics as per infectious disease Trend labs IV fluid resuscitation Dense consolidation in the posterior right lower lobe, likely pneumonia Liquid stool in the proximal colon, could indicate diarrheal illness Trace free intraperitoneal fluid Slight hepatic atrophy and surface nodularity raising possibility of cirrhotic change Small lesser sac varices and splenomegaly raises possibility of portal hypertension Pericardial effusion, also evident previously abd wall cellulitis superficial and lumps likely prior injection sites and not infected. cholelithiasis unlikely etiology lft's trending down cameron/lip pancreatitis chemical CT noted cont abx can consider cholecystostomy tube if note improving HIDA sunday MRCP ordered We will follow with recommendations Thank you for allowing me to participate in patient care Kirk Em Oct 19, 2019 13:13
[2019-10-19 16:00] VITALS: BP 123/76
--- NOTE | 2019-10-19 19:21 | NUR ---
HAND-OFF: Report given to ENRIQUE Walters. Plan of care endorsed.
--- NOTE | 2019-10-19 19:30 | NUR ---
NURSE NOTES: Received report from ENRIQUE Vanegas. Patient is in bed, awake and responsive. Breathing regular and unlabored with no s/s of SOB noted with presence of NC on 2L. IJ intact, running fluids at prescribed rate. Noted that feeding is on hold due to presence of residual. Patient denies any pain or discomfort at this time. Bed in low position, breaks engaged, call light within reach. Will continue to monitor.
[2019-10-19 20:00] VITALS: BP 125/75
[2019-10-19] MEDS: Dyna-Hex 2% Top Sol 2oz TOPIC SCH (21:23)
[2019-10-19] MEDS: Iron Sucrose 100 MG in NS 55 ML IV SCH (21:23)
--- NOTE | 2019-10-19 21:50 | NUR ---
NURSE NOTES: Transferred patient to Med-surg. Report given to receiving nurse. Patient is in stable condition, and plan of care endorsed.
--- NOTE | 2019-10-19 22:40 | NUR ---
Received patient from Nancy NUNEZ. Patient transferred from telemetry. Patient is in bed. Alert x1. Patient denies pain at this time. NC in place and running at 2 lpm. Right IJ in place with a dressing intact running NS at 175 mL/hr. Patient does not appear to be in distress. Purewick is in place. Addendum: 10/19/19 at 2320 by Brandon Can RN NURSE NOTES:
[2019-10-20] VITALS: BP 124/69
[2019-10-20] MEDS ORDERED: DiphenhydrAMINE 25mg/10ml Elixir GT PRN (00:30)
[2019-10-20] MEDS ORDERED: Morphine Sulfate 2mg/ml Inj(IV/IM USE ONLY) IVP PRN (00:45)
[2019-10-20 01:04] LABS: APPEARANCE,URINE CLEAR; BILIRUBIN, URINE NEGATIVE (NEGATIVE); COLOR,URINE PALE YELLOW; GLUCOSE, URINE (UA) NEGATIVE (NEGATIVE); KETONES,URINE NEGATIVE (NEGATIVE); LEUKOCYTE ESTERASE ,URINE 1+ (NEGATIVE); NITRITE,URINE NEGATIVE (NEGATIVE); PH,URINE 6 (4.5-8.0); PROTEIN,URINE 2+ (NEGATIVE); UROBILINOGEN,URINE NORMAL MG/DL (0.0-1.0)
--- NOTE | 2019-10-20 02:30 | NUR ---
NURSE NOTES: Dressing change done for all wounds. Pictures taken
[2019-10-20 04:00] VITALS: BP 132/70
[2019-10-20] MEDS ORDERED: Metoclopramide 10mg/2ml Inj IVP PRN (04:15)
[2019-10-20] MEDS: Levothyroxine 125mcg tab GT SCH (05:49)
[2019-10-20] MEDS: HydrALAZINE 50mg tab GT SCH ×3 (06:00→22:49)
[2019-10-20 06:38] LABS: HEMATOCRIT 23.9 % (37.0-47.0); HEMOGLOBIN 7.8 G/DL (12.0-16.0); MEAN CORPUSCULAR VOLUME 88 FL (80-99); PLATELET COUNT 402 K/UL (150-450); RED BLOOD COUNT 2.72 M/UL (4.20-5.40); RED CELL DISTRIBUTION WIDTH 14.1 % (11.6-14.8); WHITE BLOOD COUNT 16.4 K/UL (4.8-10.8)
[2019-10-20 06:48] LABS: AMYLASE 144 U/L (25-115)
[2019-10-20 06:50] LABS: ALANINE AMINOTRANSFERASE 14 U/L (12-78); ALBUMIN 1.4 G/DL (3.4-5.0); ALBUMIN/GLOBULIN RATIO 0.3 (1.0-2.7); ALKALINE PHOSPHATASE 162 U/L (46-116); ANION GAP 13 mmol/L (5-15); ASPARTATE AMINO TRANSFERASE 25 U/L (15-37); BILIRUBIN,TOTAL 0.9 MG/DL (0.2-1.0); BLOOD UREA NITROGEN 38 mg/dL (7-18); CARBON DIOXIDE 18 MMOL/L (21-32); CHLORIDE 103 MMOL/L (98-107); CREATININE 3.3 MG/DL (0.55-1.30); POTASSIUM 3.4 MMOL/L (3.5-5.1); SODIUM 134 MMOL/L (136-145)
[2019-10-20 07:02] LABS: INR 1.2 (0.9-1.1)
--- NOTE | 2019-10-20 07:12 | General Progress Note ---
Assessment/Plan Problem List: (1) Sepsis ICD Codes: A41.9 - Sepsis, unspecified organism SNOMED: 41612246 (2) Lactic acid acidosis ICD Codes: E87.2 - Acidosis SNOMED: 62785588 (3) Anemia ICD Codes: D64.9 - Anemia, unspecified SNOMED: 081557243 (4) Alkalosis, metabolic ICD Codes: E87.3 - Alkalosis, metabolic SNOMED: 4630911 (5) Acidosis ICD Codes: E87.2 - Acidosis SNOMED: 68440864 (6) UTI (urinary tract infection) ICD Codes: N39.0 - Urinary tract infection, site not specified SNOMED: 32262744 (7) Acute renal failure (ARF) ICD Codes: N17.9 - Acute kidney failure, unspecified SNOMED: 25752619 Status: stable Assessment/Plan: iv abx follow up cultures wound care HD per renal monitor bp- may need to resume bp meds monitor for bleeding transfuse as needed gi follow up trend wbc monitor lfts surgery follow up re: ct mrcp and hida pending Subjective ROS Limited/Unobtainable: No Constitutional: Reports: malaise, weakness HEENT: Reports: no symptoms Cardiovascular: Reports: no symptoms Respiratory: Reports: no symptoms Gastrointestinal/Abdominal: Reports: abdominal pain Genitourinary: Reports: no symptoms Allergies: Coded Allergies: ERYTHROMYCIN BASE (Unverified Allergy, Intermediate, 07/14/19) Per patient not allergic to medications or food All Systems: reviewed and negative except above Subjective abd pain improving according to the pt. elevated lipase noted, no fevers or chills. no sob. ct with distended GB. surgery and gi noted. Objective Last 24 Hour Vital Signs Date Time Temp Pulse Resp B/P (MAP) Pulse Ox O2 Delivery O2 Flow Rate FiO2 10/20/19 06:56 97 Nasal Cannula 2.0 28 10/20/19 06:00 132/70 10/20/19 04:00 98.7 90 21 132/70 (90) 97 10/20/19 00:00 99.3 90 20 124/69 (87) 96 10/19/19 21:24 125/75 10/19/19 21:23 90 125/75 10/19/19 21:00 Nasal Cannula 2.0 10/19/19 20:00 99.7 90 22 125/75 (92) 96 10/19/19 19:51 96 Nasal Cannula 2.0 28 10/19/19 17:29 88 123/76 10/19/19 16:00 99.0 89 20 123/76 (92) 99 10/19/19 16:00 88 10/19/19 14:00 138/73 10/19/19 12:00 89 10/19/19 12:00 99.2 89 18 138/73 (94) 98 10/19/19 09:37 93 119/72 10/19/19 09:36 93 119/72 10/19/19 09:00 Nasal Cannula 2.0 10/19/19 08:00 98.9 93 17 119/72 (88) 98 10/19/19 08:00 89 10/19/19 08:00 96 Nasal Cannula 2.0 28 Intake and Output 10/19/19 10/20/19 18:59 06:59 Intake Total 875 ml Output Total 750 ml 400 ml Balance -750 ml 475 ml IV Total 875 ml Output Urine Total 750 ml 400 ml Laboratory Tests 10/20/19 00:30: Urine Color Pale yellow, Urine Appearance Clear, Urine pH 6, Urine Specific [place] 1.010, Urine Protein 2+H, Urine Glucose (UA) Negative, Urine Ketones Negative, Urine Blood Negative, Urine Nitrite Negative, Urine Bilirubin Negative , Urine Urobilinogen Normal, Urine Leukocyte Esterase 1+H, Urine RBC 0-2, Urine WBC 0-2, Urine Squamous Epithelial Cells Few, Urine Bacteria None 10/20/19 06:00: White Blood Count 16.4H, Red Blood Count 2.72L, Hemoglobin 7.8L, Hematocrit 23.9 #L, Mean Corpuscular Volume 88, Mean Corpuscular Hemoglobin 28.9, Mean Corpuscular Hemoglobin Concent 32.8, Red Cell Distribution Width 14.1, Platelet Count 402, Mean Platelet Volume 7.0, Neutrophils (%) (Auto) , Lymphocytes (%) ( Auto) , Monocytes (%) (Auto) , Eosinophils (%) (Auto) , Basophils (%) (Auto) , Neutrophils % (Manual) [Pending], Lymphocytes % (Manual) [Pending], Platelet Estimate [Pending], Platelet Morphology [Pending], Prothrombin Time 12.2H, Prothromb Time International Ratio 1.2H, Activated Partial Thromboplast Time 34H , Sodium Level 134L, Potassium Level 3.4L, Chloride Level 103, Carbon Dioxide Level 18L, Anion Gap 13, Blood Urea Nitrogen 38H, Creatinine 3.3H, Estimat Glomerular Filtration Rate , Glucose Level 67L, Calcium Level 7.0L, Total Bilirubin 0.9, Aspartate Amino Transf (AST/SGOT) 25, Alanine Aminotransferase ( ALT/SGPT) 14, Alkaline Phosphatase 162H, Total Protein 5.8L, Albumin 1.4L, Globulin 4.4, Albumin/Globulin Ratio 0.3L, Amylase Level 144H, Lipase 924H Height (Feet): 5 Height (Inches): 2.00 Weight (Pounds): 200 Objective General Appearance: WD/WN, alert Neck: supple Cardiovascular: normal rate, regular rhythm Respiratory/Chest: chest wall non-tender, lungs clear, normal breath sounds Abdomen: normal bowel sounds, soft, no organomegaly, tender Edema: no edema noted Arm (L), no edema noted Arm (R), no edema noted Leg (L), no edema noted Leg (R), no edema noted Pedal (L), no edema noted Pedal (R), no edema noted Generalized Chema Hendricks MD Oct 20, 2019 07:12
--- NOTE | 2019-10-20 07:20 | NUR ---
NURSE NOTES: Received patient in bed, patient awake and responsive.no sign of distress, on O2 at 2Lvia NC.right IJ intact IV fluids running no sign of infiltration noted.G tube hold except meds. on fall and aspiration precaution observed and maintained. Bed in low position, breaks engaged, turn q2h for comfort and good circulation,call light within reach. Will continue to monitor. tony finch
--- NOTE | 2019-10-20 07:25 | NUR ---
HAND-OFF: Report given to Betty NUNEZ.
[2019-10-20 08:00] VITALS: BP 132/73
[2019-10-20] MEDS: Meropenem 500 MG in NS 55 ML IVPB SCH ×2 (09:38→22:49)
[2019-10-20] MEDS: Vancomycin oral 125mg/2.5ml ORAL SCH ×2 (09:41→12:28)
--- NOTE | 2019-10-20 10:18 | NUR ---
CASE MANAGEMENT:REVIEW 10/20/19 SI: SEPSIS. E COLI BACTEREMIA AC/CHR RENAL FAILURE......ESRD ON HD. CHRONIC LIVER DZ S/P PARACENTESIS...0.23L REMOVED 99.3 91 22 132/73 99% ON 2L/NC WBC+16.4 HGB-7.8 CR+3.3 IS: IV MEROPENEM Q12 VANCOMYCIN GT QID SYNTHROID GT QD IVF@175/HR IV VENOFER QHS HYDRALAZINE GT Q8HRS NORVASC GT BID LOPRESSOR GT Q12 : TELEMETRY STATUS DCP; FROM [facility]
--- NOTE | 2019-10-20 10:45 | General Progress Note ---
Assessment/Plan Status: stable Assessment/Plan: 1. Chronic kidney disease. 2. Hypertension. 3. CHF. 4. Dysphagia with a G-tube. 5. History of sepsis. 6. Anemia. 7. Hepatitis C. 8. Pneumonia. 9. cirrhosis. 10. gallstones 11. ascites us reviewed s/p paracentesis>>> No SBP abx GTF on hold abx anemia work up GI procedures on hold for now repeat CT reviewed MRCP and HIDA scan pending plan resume GTF after above Subjective ROS Limited/Unobtainable: Yes Allergies: Coded Allergies: ERYTHROMYCIN BASE (Unverified Allergy, Intermediate, 07/14/19) Per patient not allergic to medications or food Subjective diarrhea Objective Last 24 Hour Vital Signs Date Time Temp Pulse Resp B/P (MAP) Pulse Ox O2 Delivery O2 Flow Rate FiO2 10/20/19 09:42 91 132/73 10/20/19 09:41 91 132/73 10/20/19 08:00 Nasal Cannula 2.0 10/20/19 08:00 99.3 91 22 132/73 (92) 99 10/20/19 06:56 97 Nasal Cannula 2.0 28 10/20/19 06:00 132/70 10/20/19 04:00 98.7 90 21 132/70 (90) 97 10/20/19 00:00 99.3 90 20 124/69 (87) 96 10/19/19 21:24 125/75 10/19/19 21:23 90 125/75 10/19/19 21:00 Nasal Cannula 2.0 10/19/19 20:00 99.7 90 22 125/75 (92) 96 10/19/19 19:51 96 Nasal Cannula 2.0 28 10/19/19 17:29 88 123/76 10/19/19 16:00 99.0 89 20 123/76 (92) 99 10/19/19 16:00 88 10/19/19 14:00 138/73 10/19/19 12:00 89 10/19/19 12:00 99.2 89 18 138/73 (94) 98 Intake and Output 10/19/19 10/20/19 18:59 06:59 Intake Total 875 ml Output Total 750 ml 400 ml Balance -750 ml 475 ml IV Total 875 ml Output Urine Total 750 ml 400 ml Laboratory Tests 10/20/19 00:30: Urine Color Pale yellow, Urine Appearance Clear, Urine pH 6, Urine Specific [place] 1.010, Urine Protein 2+H, Urine Glucose (UA) Negative, Urine Ketones Negative, Urine Blood Negative, Urine Nitrite Negative, Urine Bilirubin Negative , Urine Urobilinogen Normal, Urine Leukocyte Esterase 1+H, Urine RBC 0-2, Urine WBC 0-2, Urine Squamous Epithelial Cells Few, Urine Bacteria None 10/20/19 06:00: White Blood Count 16.4H, Red Blood Count 2.72L, Hemoglobin 7.8L, Hematocrit 23.9 #L, Mean Corpuscular Volume 88, Mean Corpuscular Hemoglobin 28.9, Mean Corpuscular Hemoglobin Concent 32.8, Red Cell Distribution Width 14.1, Platelet Count 402, Mean Platelet Volume 7.0, Neutrophils (%) (Auto) , Lymphocytes (%) ( Auto) , Monocytes (%) (Auto) , Eosinophils (%) (Auto) , Basophils (%) (Auto) , Differential Total Cells Counted 100, Neutrophils % (Manual) 88H, Lymphocytes % (Manual) 5L, Monocytes % (Manual) 5, Eosinophils % (Manual) 1, Basophils % ( Manual) 1, Band Neutrophils 0, Platelet Estimate Adequate, Platelet Morphology Normal, Hypochromasia 3+, Anisocytosis 1+, Prothrombin Time 12.2H, Prothromb Time International Ratio 1.2H, Activated Partial Thromboplast Time 34H, Sodium Level 134L, Potassium Level 3.4L, Chloride Level 103, Carbon Dioxide Level 18L, Anion Gap 13, Blood Urea Nitrogen 38H, Creatinine 3.3H, Estimat Glomerular Filtration Rate , Glucose Level 67L, Calcium Level 7.0L, Total Bilirubin 0.9, Aspartate Amino Transf (AST/SGOT) 25, Alanine Aminotransferase (ALT/SGPT) 14, Alkaline Phosphatase 162H, Total Protein 5.8L, Albumin 1.4L, Globulin 4.4, Albumin/Globulin Ratio 0.3L, Amylase Level 144H, Lipase 924H Height (Feet): 5 Height (Inches): 2.00 Weight (Pounds): 200 General Appearance: no apparent distress EENT: normal ENT inspection Neck: supple Cardiovascular: normal rate Respiratory/Chest: decreased breath sounds Abdomen: normal bowel sounds, non tender, soft Extremities: non-tender Vosoghi,David MD Oct 20, 2019 10:44
--- NOTE | 2019-10-20 11:11 | Infectious Diseases Prog Note ---
Assessment/Plan Assessment/Plan antibiotics : meropenem A 1. e.eoli sepsis s/p rx 2. leucocytosis increasing 3. renal failure on HD 4. thrombocytopenia 5. pneumonia 6. Parkinsons disease 7. dementia 8. ? cholecystitis 9. cirrhosis P 1. continue meropenem 2. will follow up cultures 3. HIDA scan Subjective Constitutional: Denies: fever, chills Respiratory: Reports: shortness of breath, dry cough Gastrointestinal/Abdominal: Denies: nausea, vomiting, diarrhea Musculoskeletal: Denies: pain Allergies: Coded Allergies: ERYTHROMYCIN BASE (Unverified Allergy, Intermediate, 07/14/19) Per patient not allergic to medications or food Objective Vital Signs Last 24 Hour Vital Signs Date Time Temp Pulse Resp B/P (MAP) Pulse Ox O2 Delivery O2 Flow Rate FiO2 10/20/19 09:42 91 132/73 10/20/19 09:41 91 132/73 10/20/19 08:00 Nasal Cannula 2.0 10/20/19 08:00 99.3 91 22 132/73 (92) 99 10/20/19 06:56 97 Nasal Cannula 2.0 28 10/20/19 06:00 132/70 10/20/19 04:00 98.7 90 21 132/70 (90) 97 10/20/19 00:00 99.3 90 20 124/69 (87) 96 10/19/19 21:24 125/75 10/19/19 21:23 90 125/75 10/19/19 21:00 Nasal Cannula 2.0 10/19/19 20:00 99.7 90 22 125/75 (92) 96 10/19/19 19:51 96 Nasal Cannula 2.0 28 10/19/19 17:29 88 123/76 10/19/19 16:00 99.0 89 20 123/76 (92) 99 10/19/19 16:00 88 10/19/19 14:00 138/73 10/19/19 12:00 89 10/19/19 12:00 99.2 89 18 138/73 (94) 98 Height (Feet): 5 Height (Inches): 2.00 Weight (Pounds): 200 Respiratory/Chest: lungs clear Cardiovascular: normal rate, regular rhythm, no gallop/murmur Abdomen: soft, non tender Extremities: no edema, other - right IJ catheter Microbiology Date/Time Source Procedure Growth Status 10/18/19 02:40 Stool Clostridium difficile Toxin Assay - Final Complete Laboratory Tests Test 10/20/19 00:30 10/20/19 06:00 Urine Color Pale yellow Urine Appearance Clear Urine pH 6 (4.5-8.0) Urine Specific [place] 1.010 (1.005-1.035) Urine Protein 2+ (NEGATIVE) H Urine Glucose (UA) Negative (NEGATIVE) Urine Ketones Negative (NEGATIVE) Urine Blood Negative (NEGATIVE) Urine Nitrite Negative (NEGATIVE) Urine Bilirubin Negative (NEGATIVE) Urine Urobilinogen Normal MG/DL (0.0-1.0) Urine Leukocyte Esterase 1+ (NEGATIVE) H Urine RBC 0-2 /HPF (0 - 2) Urine WBC 0-2 /HPF (0 - 2) Urine Squamous Epithelial Cells Few /LPF (NONE/OCC) Urine Bacteria None /HPF (NONE) White Blood Count 16.4 K/UL (4.8-10.8) H Red Blood Count 2.72 M/UL (4.20-5.40) L Hemoglobin 7.8 G/DL (12.0-16.0) L Hematocrit 23.9 % (37.0-47.0) #L Mean Corpuscular Volume 88 FL (80-99) Mean Corpuscular Hemoglobin 28.9 PG (27.0-31.0) Mean Corpuscular Hemoglobin Concent 32.8 G/DL (32.0-36.0) Red Cell Distribution Width 14.1 % (11.6-14.8) Platelet Count 402 K/UL (150-450) Mean Platelet Volume 7.0 FL (6.5-10.1) Neutrophils (%) (Auto) % (45.0-75.0) Lymphocytes (%) (Auto) % (20.0-45.0) Monocytes (%) (Auto) % (1.0-10.0) Eosinophils (%) (Auto) % (0.0-3.0) Basophils (%) (Auto) % (0.0-2.0) Differential Total Cells Counted 100 Neutrophils % (Manual) 88 % (45-75) H Lymphocytes % (Manual) 5 % (20-45) L Monocytes % (Manual) 5 % (1-10) Eosinophils % (Manual) 1 % (0-3) Basophils % (Manual) 1 % (0-2) Band Neutrophils 0 % (0-8) Platelet Estimate Adequate Platelet Morphology Normal Hypochromasia 3+ Anisocytosis 1+ Prothrombin Time 12.2 SEC (9.30-11.50) H Prothromb Time International Ratio 1.2 (0.9-1.1) H Activated Partial Thromboplast Time 34 SEC (23-33) H Sodium Level 134 MMOL/L (136-145) L Potassium Level 3.4 MMOL/L (3.5-5.1) L Chloride Level 103 MMOL/L (98-107) Carbon Dioxide Level 18 MMOL/L (21-32) L Anion Gap 13 mmol/L (5-15) Blood Urea Nitrogen 38 mg/dL (7-18) H Creatinine 3.3 MG/DL (0.55-1.30) H Estimat Glomerular Filtration Rate mL/min (>60) Glucose Level 67 MG/DL (74-106) L Calcium Level 7.0 MG/DL (8.5-10.1) L Total Bilirubin 0.9 MG/DL (0.2-1.0) Aspartate Amino Transf (AST/SGOT) 25 U/L (15-37) Alanine Aminotransferase (ALT/SGPT) 14 U/L (12-78) Alkaline Phosphatase 162 U/L (46-116) H Total Protein 5.8 G/DL (6.4-8.2) L Albumin 1.4 G/DL (3.4-5.0) L Globulin 4.4 g/dL Albumin/Globulin Ratio 0.3 (1.0-2.7) L Amylase Level 144 U/L (25-115) H Lipase 924 U/L (73-393) H Current Medications Medications (Trade) Dose Ordered Sig/Jonathan Route PRN Reason Start Time Stop Time Status Last Admin Dose Admin Acetaminophen (Tylenol) 650 mg Q4H PRN GT Mild Pain/Temp > 100.5 10/20/19 00:30 11/06/19 20:29 Amlodipine Besylate (Norvasc) 5 mg BID GT 10/20/19 09:00 11/13/19 17:59 10/20/19 09:42 Barium Sulfate (Readi-Cat 2) 450 ml NOW PRN ORAL Radiology Procedure 10/20/19 07:00 Chlorhexidine Gluconate (Meredith-Hex 2%) 1 applic DAILY@2000 TOPIC 10/20/19 20:00 11/09/19 19:59 Diphenhydramine HCl (Benadryl) 25 mg Q8H PRN GT Itching 10/20/19 00:30 11/14/19 08:29 Hydralazine HCl (Apresoline) 100 mg Q8HR GT 10/20/19 06:00 11/06/19 21:59 Lansoprazole (Prevacid) 30 mg DAILY GT 10/20/19 09:00 11/07/19 08:59 10/20/19 09:41 Levothyroxine Sodium (Synthroid) 125 mcg ACBREAKFAST GT 10/20/19 06:30 11/07/19 06:29 10/20/19 05:49 Loperamide HCl (Imodium) 2 mg Q12H PRN GT Diarrhea 10/20/19 08:30 11/18/19 08:29 Meropenem 500 mg/ Sodium Chloride 55 ml @ 110 mls/hr EVERY 12 HOURS IVPB 10/20/19 09:00 10/22/19 10:59 10/20/19 09:38 Metoclopramide HCl (Reglan) 5 mg Q6H PRN IVP Nausea & Vomiting 10/20/19 04:15 11/16/19 10:14 Metoprolol Tartrate (Lopressor) 50 mg Q12HR GT 10/20/19 09:00 11/15/19 08:59 10/20/19 09:41 Morphine Sulfate (Morphine Sulfate) 1 mg Q4H PRN IVP SEVERE PAIN 10/20/19 00:45 10/20/19 20:44 Sodium Chloride 1,000 ml @ 175 mls/hr Q5H43M IV 10/19/19 22:30 11/18/19 10:44 10/20/19 09:42 Vancomycin HCl (Firvanq) 125 mg FOUR TIMES A DAY ORAL 10/20/19 09:00 10/25/19 17:59 10/20/19 09:41 Jessica Reyes MD Oct 20, 2019 11:11
[2019-10-20 11:48] VITALS: BP 147/77
--- NOTE | 2019-10-20 12:50 | Diagnostic Imaging Report ---
Indication: Cough Comparison: 10/18/2019 A single view chest radiograph was obtained. Findings: Pulmonary vascular congestion and prominent heart size demonstrated. There is a right jugular catheter in good position. IMPRESSION: Mild CHF
--- NOTE | 2019-10-20 14:01 | Nephrology Progress Note ---
Assessment/Plan Problem List: (1) Healthcare-associated pneumonia (2) Anemia in chronic kidney disease (3) CKD (chronic kidney disease) stage 5, GFR less than 15 ml/min (4) Abdominal pain in female (5) CHF exacerbation (6) Sepsis (7) Ascites (8) Cirrhosis Plan nonoliguric, hold off dialysis,, cont rxx esbl sepsis, US cholelithiasis--might be source of sepsis, also cirrhosis and ascites, creat higher, better with hydration cxr m;ild PVR, reduce iv, still npo awaiting HIDA Subjective Constitutional: Reports: weakness HEENT: Reports: no symptoms Genitourinary: Reports: incontinence Neurologic/Psychiatric: Reports: pre-existing deficit Subjective mod diarrhea, npo Objective Objective Last 24 Hour Vital Signs Date Time Temp Pulse Resp B/P (MAP) Pulse Ox O2 Delivery O2 Flow Rate FiO2 10/20/19 13:01 147/77 10/20/19 11:48 99.4 87 22 147/77 (100) 99 10/20/19 09:42 91 132/73 10/20/19 09:41 91 132/73 10/20/19 08:00 Nasal Cannula 2.0 10/20/19 08:00 99.3 91 22 132/73 (92) 99 10/20/19 06:56 97 Nasal Cannula 2.0 28 10/20/19 06:00 132/70 10/20/19 04:00 98.7 90 21 132/70 (90) 97 10/20/19 00:00 99.3 90 20 124/69 (87) 96 10/19/19 21:24 125/75 10/19/19 21:23 90 125/75 10/19/19 21:00 Nasal Cannula 2.0 10/19/19 20:00 99.7 90 22 125/75 (92) 96 10/19/19 19:51 96 Nasal Cannula 2.0 28 10/19/19 17:29 88 123/76 10/19/19 16:00 99.0 89 20 123/76 (92) 99 10/19/19 16:00 88 Intake and Output 10/19/19 10/20/19 19:00 07:00 Intake Total 875 ml Output Total 750 ml 400 ml Balance -750 ml 475 ml IV Total 875 ml Output Urine Total 750 ml 400 ml Laboratory Tests 10/20/19 00:30: Urine Color Pale yellow, Urine Appearance Clear, Urine pH 6, Urine Specific [place] 1.010, Urine Protein 2+H, Urine Glucose (UA) Negative, Urine Ketones Negative, Urine Blood Negative, Urine Nitrite Negative, Urine Bilirubin Negative , Urine Urobilinogen Normal, Urine Leukocyte Esterase 1+H, Urine RBC 0-2, Urine WBC 0-2, Urine Squamous Epithelial Cells Few, Urine Bacteria None 10/20/19 06:00: White Blood Count 16.4H, Red Blood Count 2.72L, Hemoglobin 7.8L, Hematocrit 23.9 #L, Mean Corpuscular Volume 88, Mean Corpuscular Hemoglobin 28.9, Mean Corpuscular Hemoglobin Concent 32.8, Red Cell Distribution Width 14.1, Platelet Count 402, Mean Platelet Volume 7.0, Neutrophils (%) (Auto) , Lymphocytes (%) ( Auto) , Monocytes (%) (Auto) , Eosinophils (%) (Auto) , Basophils (%) (Auto) , Differential Total Cells Counted 100, Neutrophils % (Manual) 88H, Lymphocytes % (Manual) 5L, Monocytes % (Manual) 5, Eosinophils % (Manual) 1, Basophils % ( Manual) 1, Band Neutrophils 0, Platelet Estimate Adequate, Platelet Morphology Normal, Hypochromasia 3+, Anisocytosis 1+, Prothrombin Time 12.2H, Prothromb Time International Ratio 1.2H, Activated Partial Thromboplast Time 34H, Sodium Level 134L, Potassium Level 3.4L, Chloride Level 103, Carbon Dioxide Level 18L, Anion Gap 13, Blood Urea Nitrogen 38H, Creatinine 3.3H, Estimat Glomerular Filtration Rate , Glucose Level 67L, Calcium Level 7.0L, Total Bilirubin 0.9, Aspartate Amino Transf (AST/SGOT) 25, Alanine Aminotransferase (ALT/SGPT) 14, Alkaline Phosphatase 162H, Total Protein 5.8L, Albumin 1.4L, Globulin 4.4, Albumin/Globulin Ratio 0.3L, Amylase Level 144H, Lipase 924H Height (Feet): 5 Height (Inches): 2.00 Weight (Pounds): 200 General Appearance: morbidly obese EENT: normal ENT inspection Neck: normal alignment Cardiovascular: regular rhythm Respiratory/Chest: lungs clear Abdomen: non tender, soft Extremities: trace edema Neurologic: motor weakness Jose Lemus MD Oct 20, 2019 14:01
--- NOTE | 2019-10-20 15:10 | Diagnostic Imaging Report ---
Indication: 73-year-old gallstone ascites abdominal pain Technique: MRI of the abdomen was performed in a 1.5 Al[place] magnet. Pulse sequences obtained include coronal and axial T2 single shot fast spin echo breathhold and respiratory gated coronal T2 3-D M.R.C.P.; this data set was displayed in different projections or MIPs. In addition, multiple coronal oblique thin T2 weighted, fat saturated SE sequences obtained through the CBD. Comparison: None Findings: There is mild ascites. There is nodularity of the liver surface. Gallbladder is distended. There is thickening of the gallbladder wall and multiple gallstones. There is no evidence of intrahepatic biliary ductal dilatation. CBD is normal in caliber measuring about 4 mm. There are a few cysts within both kidneys. There is a small right pleural effusion trace left pleural effusion. The spleen is prominent. IMPRESSION: No biliary ductal dilatation or evidence of choledocholithiasis Cholelithiasis. Cirrhosis of the liver with signs of portal hypertension including ascites and splenomegaly. Small bilateral renal cysts Small right pleural effusion. Trace left pleural effusion.
[2019-10-20] MEDS: D5W w/KCl 20mEq 1,000 ML IV SCH (15:59)
[2019-10-20 16:11] VITALS: BP 129/73
--- NOTE | 2019-10-20 17:35 | NUR ---
nurse notes patient went down for HIDA Scan , HIda Tech called spoke to Aleta relief charge nurse and stated to give morphine 1 mg to patient, patient c/o pain,I went down to Nuclear meds, morphine 1 mg given to the patient with relief ENRIQUE HAYWOOD
--- NOTE | 2019-10-20 18:31 | NUR ---
NM Hepatobiliary (HIDA) scan complete.
--- NOTE | 2019-10-20 18:36 | Surgery Progress Note ---
Surgery Progress Note Subjective Additional Comments comfortable d/c planning Objective Last 24 Hour Vital Signs Date Time Temp Pulse Resp B/P (MAP) Pulse Ox O2 Delivery O2 Flow Rate FiO2 10/20/19 16:11 99.6 90 22 129/73 (91) 98 10/20/19 13:01 147/77 10/20/19 11:48 99.4 87 22 147/77 (100) 99 10/20/19 09:42 91 132/73 10/20/19 09:41 91 132/73 10/20/19 08:00 Nasal Cannula 2.0 10/20/19 08:00 99.3 91 22 132/73 (92) 99 10/20/19 06:56 97 Nasal Cannula 2.0 28 10/20/19 06:00 132/70 10/20/19 04:00 98.7 90 21 132/70 (90) 97 10/20/19 00:00 99.3 90 20 124/69 (87) 96 10/19/19 21:24 125/75 10/19/19 21:23 90 125/75 10/19/19 21:00 Nasal Cannula 2.0 10/19/19 20:00 99.7 90 22 125/75 (92) 96 10/19/19 19:51 96 Nasal Cannula 2.0 28 I&O Intake and Output 10/19/19 10/20/19 19:00 07:00 Intake Total 875 ml Output Total 750 ml 400 ml Balance -750 ml 475 ml IV Total 875 ml Output Urine Total 750 ml 400 ml Dressing: other Wound: other Drains: other Cardiovascular: RSR Respiratory: decreased breath sounds Abdomen: soft, present bowel sounds Extremities: no cyanosis Laboratory Tests Test 10/20/19 00:30 10/20/19 06:00 Urine Color Pale yellow Urine Appearance Clear Urine pH 6 (4.5-8.0) Urine Specific [place] 1.010 (1.005-1.035) Urine Protein 2+ (NEGATIVE) H Urine Glucose (UA) Negative (NEGATIVE) Urine Ketones Negative (NEGATIVE) Urine Blood Negative (NEGATIVE) Urine Nitrite Negative (NEGATIVE) Urine Bilirubin Negative (NEGATIVE) Urine Urobilinogen Normal MG/DL (0.0-1.0) Urine Leukocyte Esterase 1+ (NEGATIVE) H Urine RBC 0-2 /HPF (0 - 2) Urine WBC 0-2 /HPF (0 - 2) Urine Squamous Epithelial Cells Few /LPF (NONE/OCC) Urine Bacteria None /HPF (NONE) White Blood Count 16.4 K/UL (4.8-10.8) H Red Blood Count 2.72 M/UL (4.20-5.40) L Hemoglobin 7.8 G/DL (12.0-16.0) L Hematocrit 23.9 % (37.0-47.0) #L Mean Corpuscular Volume 88 FL (80-99) Mean Corpuscular Hemoglobin 28.9 PG (27.0-31.0) Mean Corpuscular Hemoglobin Concent 32.8 G/DL (32.0-36.0) Red Cell Distribution Width 14.1 % (11.6-14.8) Platelet Count 402 K/UL (150-450) Mean Platelet Volume 7.0 FL (6.5-10.1) Neutrophils (%) (Auto) % (45.0-75.0) Lymphocytes (%) (Auto) % (20.0-45.0) Monocytes (%) (Auto) % (1.0-10.0) Eosinophils (%) (Auto) % (0.0-3.0) Basophils (%) (Auto) % (0.0-2.0) Differential Total Cells Counted 100 Neutrophils % (Manual) 88 % (45-75) H Lymphocytes % (Manual) 5 % (20-45) L Monocytes % (Manual) 5 % (1-10) Eosinophils % (Manual) 1 % (0-3) Basophils % (Manual) 1 % (0-2) Band Neutrophils 0 % (0-8) Platelet Estimate Adequate Platelet Morphology Normal Hypochromasia 3+ Anisocytosis 1+ Prothrombin Time 12.2 SEC (9.30-11.50) H Prothromb Time International Ratio 1.2 (0.9-1.1) H Activated Partial Thromboplast Time 34 SEC (23-33) H Sodium Level 134 MMOL/L (136-145) L Potassium Level 3.4 MMOL/L (3.5-5.1) L Chloride Level 103 MMOL/L (98-107) Carbon Dioxide Level 18 MMOL/L (21-32) L Anion Gap 13 mmol/L (5-15) Blood Urea Nitrogen 38 mg/dL (7-18) H Creatinine 3.3 MG/DL (0.55-1.30) H Estimat Glomerular Filtration Rate mL/min (>60) Glucose Level 67 MG/DL (74-106) L Calcium Level 7.0 MG/DL (8.5-10.1) L Total Bilirubin 0.9 MG/DL (0.2-1.0) Aspartate Amino Transf (AST/SGOT) 25 U/L (15-37) Alanine Aminotransferase (ALT/SGPT) 14 U/L (12-78) Alkaline Phosphatase 162 U/L (46-116) H Total Protein 5.8 G/DL (6.4-8.2) L Albumin 1.4 G/DL (3.4-5.0) L Globulin 4.4 g/dL Albumin/Globulin Ratio 0.3 (1.0-2.7) L Amylase Level 144 U/L (25-115) H Lipase 924 U/L (73-393) H Plan Problems: (1) Lactic acid acidosis Assessment & Plan: Patient noted to have leukocytosis, fevers, abdominal wall cellulitis, lactic acidosis. Abnormal labs. Etiology and work-up continuing currently with microbiology pending and on IV antibiotics Leukocytosis Elevated LFTs. Imaging noted. Unlikely cholecystitis but potential passed stone. Will discuss with GI for considerations of MRCP versus ERCP versus monitoring Local care being provided. Imaging noted Pt presented on admission with partially opened DTPI Sacrum.Base of wound extends from sacrum to R and L buttocks and is maroon with #3 small openings , each with slough at mid sacral area. Pt grimaced when affected area minimally palpated. Non-blanching erythema noted to R and L ischial regions. Moisture Intertrigo with surrounding erythema and denuded skin noted to R and L breasts. Mild odor noted each skin folds of breasts.Small amt sanguineous exudate noted from L breast. Mons pubis,labia majora, and medial aspects of both upper thighs erythematous and denuded. R ad L heels are firm and blanchable. Tx.Plan: [place] Liquid Skin Repair to R and L breasts(x1 application) applied to folds of each breasts. Apply Moisture Barrier paste to perineum with each incontinence care. Apply Moisture Barrier Paste to Sacrum.Cover with Optifoam drsgs. Change every 3 days and prn. APM/SIM Mattress overlay. Reposition at least every 2 hours or as tolerated. Off-load heels with pillow. (2) Sepsis Assessment & Plan: 73-year-old female with sepsis, lactic acidosis, renal insufficiency, cellulitis, leukocytosis. Febrile, hemodynamically stable, exam as above Coordinated with radiology for urgent temporary even as catheter insertion. Placed today and will discuss with nephrology for dialysis Antibiotics as per infectious disease Trend labs IV fluid resuscitation Dense consolidation in the posterior right lower lobe, likely pneumonia Liquid stool in the proximal colon, could indicate diarrheal illness Trace free intraperitoneal fluid Slight hepatic atrophy and surface nodularity raising possibility of cirrhotic change Small lesser sac varices and splenomegaly raises possibility of portal hypertension Pericardial effusion, also evident previously abd wall cellulitis superficial and lumps likely prior injection sites and not infected. cholelithiasis unlikely etiology lft's trending down [place]/lip pancreatitis chemical CT noted cont abx can consider cholecystostomy tube if note improving HIDA sunday MRCP ordered We will follow with recommendations Thank you for allowing me to participate in patient care Kirk Em Oct 20, 2019 18:36
--- NOTE | 2019-10-20 19:19 | NUR ---
HAND-OFF: Report given to Ms Matt RN resting comfortably in bed, no sign of distress tony finch.
--- NOTE | 2019-10-20 19:20 | NUR ---
NURSE NOTES: Received pt from ENRIQUE Pineda. AAO x 2-3, on NC 2L. IV site and HD access on IJ intact and running D5 with KCL @50cc. G tube clamped. No c/o pain. Bed locked, lowest position, alarm on, side rails up, call light within reach. Will continue to monitor.
[2019-10-20 20:00] VITALS: BP 148/79
[2019-10-20] MEDS: Dyna-Hex 2% Top Sol 2oz TOPIC SCH (22:09)
[2019-10-21] VITALS: BP 140/76
[2019-10-21] MEDS: Acetaminophen 650mg/20.3ml GT PRN ×3 (00:06→21:41)
[2019-10-21 04:00] VITALS: BP 143/66
[2019-10-21] MEDS: HydrALAZINE 50mg tab GT SCH ×4 (06:00→20:56)
[2019-10-21] MEDS: Levothyroxine 125mcg tab GT SCH (06:03)
--- NOTE | 2019-10-21 06:21 | General Progress Note ---
Assessment/Plan Status: stable Assessment/Plan: 1. Chronic kidney disease. 2. Hypertension. 3. CHF. 4. Dysphagia with a G-tube. 5. History of sepsis. 6. Anemia. 7. Hepatitis C. 8. Pneumonia. 9. cirrhosis. 10. gallstones 11. ascites us reviewed s/p paracentesis>>> No SBP abx GTF will resume today abx anemia work up GI procedures on hold for now repeat CT reviewed MRCP reviewed plan resume GTF today repeat lipase, doubt pancreatitis Subjective ROS Limited/Unobtainable: Yes Allergies: Coded Allergies: ERYTHROMYCIN BASE (Unverified Allergy, Intermediate, 07/14/19) Per patient not allergic to medications or food Subjective diarrhea Objective Last 24 Hour Vital Signs Date Time Temp Pulse Resp B/P (MAP) Pulse Ox O2 Delivery O2 Flow Rate FiO2 10/21/19 06:00 143/66 10/21/19 04:00 99.1 87 18 143/66 (91) 97 10/21/19 00:36 99.3 10/21/19 00:00 100.5 87 18 140/76 (97) 98 10/20/19 22:49 148/79 10/20/19 22:10 99 148/79 10/20/19 21:00 Nasal Cannula 2.0 10/20/19 20:00 99.0 96 19 148/79 (102) 98 10/20/19 18:38 90 129/73 10/20/19 16:11 99.6 90 22 129/73 (91) 98 10/20/19 13:01 147/77 10/20/19 11:48 99.4 87 22 147/77 (100) 99 10/20/19 09:42 91 132/73 10/20/19 09:41 91 132/73 10/20/19 08:00 Nasal Cannula 2.0 10/20/19 08:00 99.3 91 22 132/73 (92) 99 10/20/19 06:56 97 Nasal Cannula 2.0 28 Intake and Output 10/20/19 10/21/19 19:00 07:00 Intake Total 1580 ml Output Total 300 ml Balance 1280 ml Intake Free Water 150 ml IV Total 1430 ml Output Urine Total 300 ml # Voids 3 Height (Feet): 5 Height (Inches): 2.00 Weight (Pounds): 200 General Appearance: alert Neck: supple Cardiovascular: normal rate, regular rhythm Respiratory/Chest: decreased breath sounds Abdomen: soft, distended Extremities: non-tender David Bosch MD Oct 21, 2019 06:21
[2019-10-21 07:11] LABS: HEMATOCRIT 23.2 % (37.0-47.0); HEMOGLOBIN 7.7 G/DL (12.0-16.0); MEAN CORPUSCULAR VOLUME 89 FL (80-99); PLATELET COUNT 388 K/UL (150-450); RED BLOOD COUNT 2.61 M/UL (4.20-5.40); WHITE BLOOD COUNT 14.4 K/UL (4.8-10.8)
--- NOTE | 2019-10-21 07:20 | NUR ---
NURSE NOTES: Received patient in bed, patient awake, alert oriented x 2-3 .no sign of distress, denies pain or discomfort, on O2 at 2Lvia NC.right IJ intact IV fluids running no sign of infiltration noted.G tube on going tolerating well, no residual noted. on fall and aspiration precaution observed and maintained. Bed in low position, breaks engaged, turn q2h for comfort and good circulation,call light within reach. Will continue to monitor. tony finch
--- NOTE | 2019-10-21 07:29 | NUR ---
HAND-OFF: Report given to ENRIQUE Pineda.
[2019-10-21 07:41] LABS: ALANINE AMINOTRANSFERASE 17 U/L (12-78); ALBUMIN 1.5 G/DL (3.4-5.0); ALBUMIN/GLOBULIN RATIO 0.4 (1.0-2.7); ALKALINE PHOSPHATASE 150 U/L (46-116); AMYLASE 132 U/L (25-115); ANION GAP 10 mmol/L (5-15); ASPARTATE AMINO TRANSFERASE 31 U/L (15-37); BILIRUBIN,TOTAL 0.7 MG/DL (0.2-1.0); BLOOD UREA NITROGEN 41 mg/dL (7-18); CALCIUM 7.1 MG/DL (8.5-10.1); CARBON DIOXIDE 20 MMOL/L (21-32); CHLORIDE 106 MMOL/L (98-107); CREATININE 3.1 MG/DL (0.55-1.30); POTASSIUM 4.2 MMOL/L (3.5-5.1); SODIUM 136 MMOL/L (136-145)
[2019-10-21 08:43] VITALS: BP 121/72
--- NOTE | 2019-10-21 09:17 | Diagnostic Imaging Report ---
Indications: Reason For Exam: ABN LABS Technique: IV administration 6.4 mCi 99 M technetium Choletec. Serial images obtained over the abdomen for 90 minutes. At one hour, 1 mg of morphine was administered intravenously Comparison: Reference made to abdomen pelvis CT dated 10/18/2019 Findings: Prompt tracer uptake within the liver. Extrahepatic bile ducts are seen at 10 minutes. Excretion into the duodenum demonstrated at 16 minutes. The gallbladder is never visualized, even after morphine administration. Impression: Nonvisualized gallbladder. This is concerning for acute cholecystitis Findings phoned to Dr. Em at the time of interpretation
[2019-10-21] MEDS: Meropenem 500 MG in NS 55 ML IVPB SCH (09:33)
--- NOTE | 2019-10-21 10:10 | General Progress Note ---
Assessment/Plan Problem List: (1) Sepsis ICD Codes: A41.9 - Sepsis, unspecified organism SNOMED: 79871091 (2) Lactic acid acidosis ICD Codes: E87.2 - Acidosis SNOMED: 24309729 (3) Anemia ICD Codes: D64.9 - Anemia, unspecified SNOMED: 141116089 (4) Alkalosis, metabolic ICD Codes: E87.3 - Alkalosis, metabolic SNOMED: 6910137 (5) Acidosis ICD Codes: E87.2 - Acidosis SNOMED: 94927027 (6) UTI (urinary tract infection) ICD Codes: N39.0 - Urinary tract infection, site not specified SNOMED: 06022092 (7) Acute renal failure (ARF) ICD Codes: N17.9 - Acute kidney failure, unspecified SNOMED: 65644778 Status: stable Assessment/Plan: iv abx follow up cultures wound care HD per renal monitor bp- may need to resume bp meds monitor for bleeding transfuse gi follow up trend wbc monitor lfts surgery follow up re: ct and hida results- ?drain Subjective ROS Limited/Unobtainable: No Constitutional: Reports: malaise, weakness HEENT: Reports: no symptoms Cardiovascular: Reports: no symptoms Respiratory: Reports: no symptoms Gastrointestinal/Abdominal: Reports: abdominal pain Genitourinary: Reports: no symptoms Neurologic/Psychiatric: Reports: pre-existing deficit Endocrine: Reports: no symptoms Hematologic/Lymphatic: Reports: anemia Allergies: Coded Allergies: ERYTHROMYCIN BASE (Unverified Allergy, Intermediate, 07/14/19) Per patient not allergic to medications or food All Systems: reviewed and negative except above Subjective per pt abd pain improved. feeds still on hold. MRCP noted. HIDA- nonvis of GB. Objective Last 24 Hour Vital Signs Date Time Temp Pulse Resp B/P (MAP) Pulse Ox O2 Delivery O2 Flow Rate FiO2 10/21/19 09:52 93 124/66 10/21/19 09:51 93 124/66 10/21/19 08:50 Nasal Cannula 2.0 10/21/19 08:43 97.9 92 20 121/72 (88) 98 10/21/19 08:06 96 Nasal Cannula 2.0 28 10/21/19 06:00 143/66 10/21/19 04:00 99.1 87 18 143/66 (91) 97 10/21/19 00:36 99.3 10/21/19 00:00 100.5 87 18 140/76 (97) 98 10/20/19 22:49 148/79 10/20/19 22:10 99 148/79 10/20/19 21:00 Nasal Cannula 2.0 10/20/19 20:00 99.0 96 19 148/79 (102) 98 10/20/19 18:38 90 129/73 10/20/19 16:11 99.6 90 22 129/73 (91) 98 10/20/19 13:01 147/77 10/20/19 11:48 99.4 87 22 147/77 (100) 99 Intake and Output 10/20/19 10/21/19 18:59 06:59 Intake Total 1530 ml 50 ml Output Total 300 ml 600 ml Balance 1230 ml -550 ml Intake Free Water 150 ml IV Total 1380 ml 50 ml Output Urine Total 300 ml 600 ml # Voids 3 Laboratory Tests 10/21/19 05:10: White Blood Count 14.4H, Red Blood Count 2.61L, Hemoglobin 7.7L, Hematocrit 23.2L, Mean Corpuscular Volume 89, Mean Corpuscular Hemoglobin 29.5, Mean Corpuscular Hemoglobin Concent 33.1, Red Cell Distribution Width 14.0, Platelet Count 388, Mean Platelet Volume 6.8, Neutrophils (%) (Auto) , Lymphocytes (%) ( Auto) , Monocytes (%) (Auto) , Eosinophils (%) (Auto) , Basophils (%) (Auto) , Differential Total Cells Counted 100, Neutrophils % (Manual) 90H, Lymphocytes % (Manual) 3L, Monocytes % (Manual) 7, Eosinophils % (Manual) 0, Basophils % ( Manual) 0, Band Neutrophils 0, Platelet Estimate Adequate, Platelet Morphology Normal, Anisocytosis 1+, Sodium Level 136, Potassium Level 4.2, Chloride Level 106, Carbon Dioxide Level 20L, Anion Gap 10, Blood Urea Nitrogen 41H, Creatinine 3.1H, Estimat Glomerular Filtration Rate , Glucose Level 52L, Calcium Level 7.1L, Total Bilirubin 0.7, Aspartate Amino Transf (AST/SGOT) 31, Alanine Aminotransferase (ALT/SGPT) 17, Alkaline Phosphatase 150H, Total Protein 5.4L, Albumin 1.5L, Globulin 3.9, Albumin/Globulin Ratio 0.4L, Amylase Level 132H, Lipase 658H Height (Feet): 5 Height (Inches): 2.00 Weight (Pounds): 200 Objective General Appearance: WD/WN, alert Neck: supple Cardiovascular: normal rate, regular rhythm Respiratory/Chest: chest wall non-tender, lungs clear, normal breath sounds Abdomen: normal bowel sounds, soft, no organomegaly, tender Edema: no edema noted Arm (L), no edema noted Arm (R), no edema noted Leg (L), no edema noted Leg (R), no edema noted Pedal (L), no edema noted Pedal (R), no edema noted Generalized Chema Hendricks MD Oct 21, 2019 10:10
--- NOTE | 2019-10-21 11:39 | Infectious Diseases Prog Note ---
Assessment/Plan Assessment/Plan antibiotics : meropenem A 1. cholecystitis 2. leucocytosis improving 3. renal failure on HD 4. thrombocytopenia 5. pneumonia 6. Parkinsons disease 7. dementia 8. cirrhosis P 1. continue meropenem 2. will follow up cultures Subjective Constitutional: Denies: fever, chills Respiratory: Denies: shortness of breath, dry cough Gastrointestinal/Abdominal: Denies: nausea, vomiting, diarrhea Musculoskeletal: Denies: pain Allergies: Coded Allergies: ERYTHROMYCIN BASE (Unverified Allergy, Intermediate, 07/14/19) Per patient not allergic to medications or food Objective Vital Signs Last 24 Hour Vital Signs Date Time Temp Pulse Resp B/P (MAP) Pulse Ox O2 Delivery O2 Flow Rate FiO2 10/21/19 09:52 93 124/66 10/21/19 09:51 93 124/66 10/21/19 08:50 Nasal Cannula 2.0 10/21/19 08:43 97.9 92 20 121/72 (88) 98 10/21/19 08:06 96 Nasal Cannula 2.0 28 10/21/19 06:00 143/66 10/21/19 04:00 99.1 87 18 143/66 (91) 97 10/21/19 00:36 99.3 10/21/19 00:00 100.5 87 18 140/76 (97) 98 10/20/19 22:49 148/79 10/20/19 22:10 99 148/79 10/20/19 21:00 Nasal Cannula 2.0 10/20/19 20:00 99.0 96 19 148/79 (102) 98 10/20/19 18:38 90 129/73 10/20/19 16:11 99.6 90 22 129/73 (91) 98 10/20/19 13:01 147/77 10/20/19 11:48 99.4 87 22 147/77 (100) 99 Height (Feet): 5 Height (Inches): 2.00 Weight (Pounds): 200 Respiratory/Chest: lungs clear Cardiovascular: normal rate, regular rhythm, no gallop/murmur Abdomen: soft, non tender, other - GT Extremities: no edema, other - right IJ catheter Laboratory Tests Test 10/21/19 05:10 White Blood Count 14.4 K/UL (4.8-10.8) H Red Blood Count 2.61 M/UL (4.20-5.40) L Hemoglobin 7.7 G/DL (12.0-16.0) L Hematocrit 23.2 % (37.0-47.0) L Mean Corpuscular Volume 89 FL (80-99) Mean Corpuscular Hemoglobin 29.5 PG (27.0-31.0) Mean Corpuscular Hemoglobin Concent 33.1 G/DL (32.0-36.0) Red Cell Distribution Width 14.0 % (11.6-14.8) Platelet Count 388 K/UL (150-450) Mean Platelet Volume 6.8 FL (6.5-10.1) Neutrophils (%) (Auto) % (45.0-75.0) Lymphocytes (%) (Auto) % (20.0-45.0) Monocytes (%) (Auto) % (1.0-10.0) Eosinophils (%) (Auto) % (0.0-3.0) Basophils (%) (Auto) % (0.0-2.0) Differential Total Cells Counted 100 Neutrophils % (Manual) 90 % (45-75) H Lymphocytes % (Manual) 3 % (20-45) L Monocytes % (Manual) 7 % (1-10) Eosinophils % (Manual) 0 % (0-3) Basophils % (Manual) 0 % (0-2) Band Neutrophils 0 % (0-8) Platelet Estimate Adequate Platelet Morphology Normal Anisocytosis 1+ Sodium Level 136 MMOL/L (136-145) Potassium Level 4.2 MMOL/L (3.5-5.1) Chloride Level 106 MMOL/L (98-107) Carbon Dioxide Level 20 MMOL/L (21-32) L Anion Gap 10 mmol/L (5-15) Blood Urea Nitrogen 41 mg/dL (7-18) H Creatinine 3.1 MG/DL (0.55-1.30) H Estimat Glomerular Filtration Rate mL/min (>60) Glucose Level 52 MG/DL (74-106) L Calcium Level 7.1 MG/DL (8.5-10.1) L Total Bilirubin 0.7 MG/DL (0.2-1.0) Aspartate Amino Transf (AST/SGOT) 31 U/L (15-37) Alanine Aminotransferase (ALT/SGPT) 17 U/L (12-78) Alkaline Phosphatase 150 U/L (46-116) H Total Protein 5.4 G/DL (6.4-8.2) L Albumin 1.5 G/DL (3.4-5.0) L Globulin 3.9 g/dL Albumin/Globulin Ratio 0.4 (1.0-2.7) L Amylase Level 132 U/L (25-115) H Lipase 658 U/L (73-393) H Current Medications Medications (Trade) Dose Ordered Sig/Jonathan Route PRN Reason Start Time Stop Time Status Last Admin Dose Admin Acetaminophen (Tylenol) 650 mg Q4H PRN GT Mild Pain/Temp > 100.5 10/20/19 00:30 11/06/19 20:29 10/21/19 00:06 Amlodipine Besylate (Norvasc) 5 mg BID GT 10/20/19 09:00 11/13/19 17:59 10/21/19 09:52 Chlorhexidine Gluconate (Meredith-Hex 2%) 1 applic DAILY@2000 TOPIC 10/20/19 20:00 11/09/19 19:59 10/20/19 22:09 Dextrose/ Electrolytes 1,000 ml @ 50 mls/hr Q20H IV 10/20/19 16:00 11/19/19 15:59 10/20/19 15:59 Diphenhydramine HCl (Benadryl) 25 mg Q8H PRN GT Itching 10/20/19 00:30 11/14/19 08:29 Hydralazine HCl (Apresoline) 100 mg Q8HR GT 10/20/19 06:00 11/06/19 21:59 10/20/19 22:49 Lansoprazole (Prevacid) 30 mg DAILY GT 10/20/19 09:00 11/07/19 08:59 10/21/19 09:00 Levothyroxine Sodium (Synthroid) 125 mcg ACBREAKFAST GT 10/20/19 06:30 11/07/19 06:29 10/21/19 06:03 Loperamide HCl (Imodium) 2 mg Q12H PRN GT Diarrhea 10/20/19 08:30 11/18/19 08:29 Meropenem 500 mg/ Sodium Chloride 55 ml @ 110 mls/hr EVERY 12 HOURS IVPB 10/20/19 09:00 10/22/19 10:59 10/21/19 09:33 Metoclopramide HCl (Reglan) 5 mg Q6H PRN IVP Nausea & Vomiting 10/20/19 04:15 11/16/19 10:14 Metoprolol Tartrate (Lopressor) 50 mg Q12HR GT 10/20/19 09:00 11/15/19 08:59 10/21/19 09:51 Jessica Reyes MD Oct 21, 2019 11:39
[2019-10-21] MEDS: D5W w/KCl 20mEq 1,000 ML IV SCH (12:09)
[2019-10-21 12:18] VITALS: BP 132/77
--- NOTE | 2019-10-21 14:42 | Surgery Progress Note ---
Surgery Progress Note Subjective Additional Comments MRCP noted - no duct obstruction, gb dilated with thickened wall HIDA + likely acute juan if full code would recommend cholecystostomy tube placement Objective Last 24 Hour Vital Signs Date Time Temp Pulse Resp B/P (MAP) Pulse Ox O2 Delivery O2 Flow Rate FiO2 10/21/19 13:02 132/77 10/21/19 12:18 98.2 85 20 132/77 (95) 98 10/21/19 09:52 93 124/66 10/21/19 09:51 93 124/66 10/21/19 08:50 Nasal Cannula 2.0 10/21/19 08:43 97.9 92 20 121/72 (88) 98 10/21/19 08:06 96 Nasal Cannula 2.0 28 10/21/19 06:00 143/66 10/21/19 04:00 99.1 87 18 143/66 (91) 97 10/21/19 00:36 99.3 10/21/19 00:00 100.5 87 18 140/76 (97) 98 10/20/19 22:49 148/79 10/20/19 22:10 99 148/79 10/20/19 21:00 Nasal Cannula 2.0 10/20/19 20:00 99.0 96 19 148/79 (102) 98 10/20/19 18:38 90 129/73 10/20/19 16:11 99.6 90 22 129/73 (91) 98 I&O Intake and Output 10/20/19 10/21/19 18:59 06:59 Intake Total 1530 ml 50 ml Output Total 300 ml 600 ml Balance 1230 ml -550 ml Intake Free Water 150 ml IV Total 1380 ml 50 ml Output Urine Total 300 ml 600 ml # Voids 3 Dressing: other Wound: other Drains: other Cardiovascular: RSR Respiratory: decreased breath sounds Abdomen: soft, present bowel sounds Extremities: no cyanosis, other Laboratory Tests Test 10/21/19 05:10 White Blood Count 14.4 K/UL (4.8-10.8) H Red Blood Count 2.61 M/UL (4.20-5.40) L Hemoglobin 7.7 G/DL (12.0-16.0) L Hematocrit 23.2 % (37.0-47.0) L Mean Corpuscular Volume 89 FL (80-99) Mean Corpuscular Hemoglobin 29.5 PG (27.0-31.0) Mean Corpuscular Hemoglobin Concent 33.1 G/DL (32.0-36.0) Red Cell Distribution Width 14.0 % (11.6-14.8) Platelet Count 388 K/UL (150-450) Mean Platelet Volume 6.8 FL (6.5-10.1) Neutrophils (%) (Auto) % (45.0-75.0) Lymphocytes (%) (Auto) % (20.0-45.0) Monocytes (%) (Auto) % (1.0-10.0) Eosinophils (%) (Auto) % (0.0-3.0) Basophils (%) (Auto) % (0.0-2.0) Differential Total Cells Counted 100 Neutrophils % (Manual) 90 % (45-75) H Lymphocytes % (Manual) 3 % (20-45) L Monocytes % (Manual) 7 % (1-10) Eosinophils % (Manual) 0 % (0-3) Basophils % (Manual) 0 % (0-2) Band Neutrophils 0 % (0-8) Platelet Estimate Adequate Platelet Morphology Normal Anisocytosis 1+ Sodium Level 136 MMOL/L (136-145) Potassium Level 4.2 MMOL/L (3.5-5.1) Chloride Level 106 MMOL/L (98-107) Carbon Dioxide Level 20 MMOL/L (21-32) L Anion Gap 10 mmol/L (5-15) Blood Urea Nitrogen 41 mg/dL (7-18) H Creatinine 3.1 MG/DL (0.55-1.30) H Estimat Glomerular Filtration Rate mL/min (>60) Glucose Level 52 MG/DL (74-106) L Calcium Level 7.1 MG/DL (8.5-10.1) L Total Bilirubin 0.7 MG/DL (0.2-1.0) Aspartate Amino Transf (AST/SGOT) 31 U/L (15-37) Alanine Aminotransferase (ALT/SGPT) 17 U/L (12-78) Alkaline Phosphatase 150 U/L (46-116) H Total Protein 5.4 G/DL (6.4-8.2) L Albumin 1.5 G/DL (3.4-5.0) L Globulin 3.9 g/dL Albumin/Globulin Ratio 0.4 (1.0-2.7) L Amylase Level 132 U/L (25-115) H Lipase 658 U/L (73-393) H Plan Problems: (1) Lactic acid acidosis Assessment & Plan: Patient noted to have leukocytosis, fevers, abdominal wall cellulitis, lactic acidosis. Abnormal labs. Etiology and work-up continuing currently with microbiology pending and on IV antibiotics Leukocytosis Elevated LFTs. Imaging noted. Unlikely cholecystitis but potential passed stone. Will discuss with GI for considerations of MRCP versus ERCP versus monitoring Local care being provided. Imaging noted Pt presented on admission with partially opened DTPI Sacrum.Base of wound extends from sacrum to R and L buttocks and is maroon with #3 small openings , each with slough at mid sacral area. Pt grimaced when affected area minimally palpated. Non-blanching erythema noted to R and L ischial regions. Moisture Intertrigo with surrounding erythema and denuded skin noted to R and L breasts. Mild odor noted each skin folds of breasts.Small amt sanguineous exudate noted from L breast. Mons pubis,labia majora, and medial aspects of both upper thighs erythematous and denuded. R ad L heels are firm and blanchable. Tx.Plan: Mineral Liquid Skin Repair to R and L breasts(x1 application) applied to folds of each breasts. Apply Moisture Barrier paste to perineum with each incontinence care. Apply Moisture Barrier Paste to Sacrum.Cover with Optifoam drsgs. Change every 3 days and prn. APM/SIM Mattress overlay. Reposition at least every 2 hours or as tolerated. Off-load heels with pillow. (2) Sepsis Assessment & Plan: 73-year-old female with sepsis, lactic acidosis, renal insufficiency, cellulitis, leukocytosis. Febrile, hemodynamically stable, exam as above Coordinated with radiology for urgent temporary even as catheter insertion. Placed today and will discuss with nephrology for dialysis Antibiotics as per infectious disease Trend labs IV fluid resuscitation Dense consolidation in the posterior right lower lobe, likely pneumonia Liquid stool in the proximal colon, could indicate diarrheal illness Trace free intraperitoneal fluid Slight hepatic atrophy and surface nodularity raising possibility of cirrhotic change Small lesser sac varices and splenomegaly raises possibility of portal hypertension Pericardial effusion, also evident previously abd wall cellulitis superficial and lumps likely prior injection sites and not infected. cholelithiasis unlikely etiology lft's trending down cameron/lip pancreatitis chemical CT noted cont abx can consider cholecystostomy tube if note improving HIDA positive MRCP Findings: There is mild ascites. There is nodularity of the liver surface. Gallbladder is distended. There is thickening of the gallbladder wall and multiple gallstones. There is no evidence of intrahepatic biliary ductal dilatation. CBD is normal in caliber measuring about 4 mm. There are a few cysts within both kidneys. There is a small right pleural effusion trace left pleural effusion. The spleen is prominent. IMPRESSION: No biliary ductal dilatation or evidence of choledocholithiasis Cholelithiasis. Cirrhosis of the liver with signs of portal hypertension including ascites and splenomegaly. Small bilateral renal cysts Small right pleural effusion. Trace left pleural effusion. We will follow with recommendations cholecystostomy tube placement Thank you for allowing me to participate in patient care Kirk Em Oct 21, 2019 14:42
[2019-10-21] MEDS ORDERED: Lidocaine 1% Plain 30 ml INJ PRN (14:45)
--- NOTE | 2019-10-21 15:01 | Nephrology Progress Note ---
Assessment/Plan Status: stable Assessment/Plan: A/P (1) HCAP (2) Anemia in CKD - EPO if Hgb <10 (3) CKD (chronic kidney disease) stage 5, GFR less than 15 ml/min - continue to hold off HD (4) Abdominal pain in female (5) CHF exacerbation (6) Sepsis -cont rxx esbl sepsis (7) Ascites/ Cirrhosis Mgmt per GI Subjective Date patient seen: Oct 21, 2019 Time patient seen: 14:55 ROS Limited/Unobtainable: No Allergies: Coded Allergies: ERYTHROMYCIN BASE (Unverified Allergy, Intermediate, 07/14/19) Per patient not allergic to medications or food Subjective Patient in no distress. No complaints Objective Last 24 Hour Vital Signs Date Time Temp Pulse Resp B/P (MAP) Pulse Ox O2 Delivery O2 Flow Rate FiO2 10/21/19 13:02 132/77 10/21/19 12:18 98.2 85 20 132/77 (95) 98 10/21/19 09:52 93 124/66 10/21/19 09:51 93 124/66 10/21/19 08:50 Nasal Cannula 2.0 10/21/19 08:43 97.9 92 20 121/72 (88) 98 10/21/19 08:06 96 Nasal Cannula 2.0 28 10/21/19 06:00 143/66 10/21/19 04:00 99.1 87 18 143/66 (91) 97 10/21/19 00:36 99.3 10/21/19 00:00 100.5 87 18 140/76 (97) 98 10/20/19 22:49 148/79 10/20/19 22:10 99 148/79 10/20/19 21:00 Nasal Cannula 2.0 10/20/19 20:00 99.0 96 19 148/79 (102) 98 10/20/19 18:38 90 129/73 10/20/19 16:11 99.6 90 22 129/73 (91) 98 Intake and Output 10/20/19 10/21/19 18:59 06:59 Intake Total 1530 ml 50 ml Output Total 300 ml 600 ml Balance 1230 ml -550 ml Intake Free Water 150 ml IV Total 1380 ml 50 ml Output Urine Total 300 ml 600 ml # Voids 3 Laboratory Tests 10/21/19 05:10: White Blood Count 14.4H, Red Blood Count 2.61L, Hemoglobin 7.7L, Hematocrit 23.2L, Mean Corpuscular Volume 89, Mean Corpuscular Hemoglobin 29.5, Mean Corpuscular Hemoglobin Concent 33.1, Red Cell Distribution Width 14.0, Platelet Count 388, Mean Platelet Volume 6.8, Neutrophils (%) (Auto) , Lymphocytes (%) ( Auto) , Monocytes (%) (Auto) , Eosinophils (%) (Auto) , Basophils (%) (Auto) , Differential Total Cells Counted 100, Neutrophils % (Manual) 90H, Lymphocytes % (Manual) 3L, Monocytes % (Manual) 7, Eosinophils % (Manual) 0, Basophils % ( Manual) 0, Band Neutrophils 0, Platelet Estimate Adequate, Platelet Morphology Normal, Anisocytosis 1+, Sodium Level 136, Potassium Level 4.2, Chloride Level 106, Carbon Dioxide Level 20L, Anion Gap 10, Blood Urea Nitrogen 41H, Creatinine 3.1H, Estimat Glomerular Filtration Rate , Glucose Level 52L, Calcium Level 7.1L, Total Bilirubin 0.7, Aspartate Amino Transf (AST/SGOT) 31, Alanine Aminotransferase (ALT/SGPT) 17, Alkaline Phosphatase 150H, Total Protein 5.4L, Albumin 1.5L, Globulin 3.9, Albumin/Globulin Ratio 0.4L, Amylase Level 132H, Lipase 658H Height (Feet): 5 Height (Inches): 2.00 Weight (Pounds): 200 General Appearance: no apparent distress EENT: normal ENT inspection Neck: normal alignment, supple Cardiovascular: normal rate, regular rhythm Respiratory/Chest: lungs clear, normal breath sounds Abdomen: non tender, soft Edema: no edema noted Arm (L), no edema noted Arm (R), no edema noted Leg (L), no edema noted Leg (R), no edema noted Pedal (L), no edema noted Pedal (R), no edema noted Generalized Cody Hoyos MD Oct 21, 2019 15:01
--- NOTE | 2019-10-21 15:22 | NUR ---
nurse notes called patient daughter nadir Holm tel no [phone] Galloway ordered US percutaneous placement cath, CT quide drain placement cath ( cholecystostomy tube placement, )patient ask a lot questions and per daughter she will come dena and please page Dr Galloway to explain patient daughter the procedure stef
[2019-10-21 16:08] VITALS: BP 135/72
--- NOTE | 2019-10-21 17:19 | NUR ---
nurse notes notified Dr Hendricks regarding patient blood (PRBC ) is available to transfuse , but at 4 pm patient T. 100.5, tylenol given as ordered, ar 1640 T. 102 when recheck, cooling measures rendered went down to T 100.8 , Olga BELTRAN made aware and stated she will call Dr Ruthie finch, rn
--- NOTE | 2019-10-21 19:33 | NUR ---
HAND-OFF: Report given to ETTA MELÉNDEZ RN Resting comfortably in bed, no sign of distress tony finch.
[2019-10-21 20:00] VITALS: BP 124/63
--- NOTE | 2019-10-21 20:17 | NUR ---
NURSE NOTES: Received patient on bed, asleep. on 02 cannula @ 2lpm. with GT running 55 ml/hr. head of bed elevated. bed locked and in lowest position. call light and in lowest position. will continue plan of care.
[2019-10-21] MEDS: Dyna-Hex 2% Top Sol 2oz TOPIC SCH (20:59)
--- NOTE | 2019-10-21 21:41 | NUR ---
NURSE NOTES: administered tylenol 650 mg liquid with a temp of 99.0F. paramater to give blood is still not within the range 98.5F. CN made aware. will re-assess. Addendum: 10/21/19 at 2307 by Radha Romeo RN still not within the range of less than 98.5F.
--- NOTE | 2019-10-21 22:11 | NUR ---
NURSE NOTES: re-assessed temperature with a results of 98.5. still not within the range. CN made aware. will continue to monitor.
--- NOTE | 2019-10-21 22:20 | NUR ---
contacted dr. lai regarding the family who does not give consents upcoming procedures of the patient. Addendum: 10/21/19 at 2232 by Radha Romeo RN NURSE NOTES: see nurses notes above.
[2019-10-22] VITALS (7 sets, daily range): BP systolic 123–139; BP diastolic 60–69
--- NOTE | 2019-10-22 | NUR ---
NURSE NOTES: re-checked temperature with a result of 99.1F. still not on the range for Blood transfusion. will continue to monitor.
[2019-10-22] MEDS: Acetaminophen 650mg/20.3ml GT PRN ×2 (03:25→20:01)
--- NOTE | 2019-10-22 04:00 | NUR ---
NURSE NOTES: rechecked. temperature of 100.0F. CN made aware.
--- NOTE | 2019-10-22 04:15 | Progress Note ---
DATE: 10/21/2019 CARDIOLOGY PROGRESS NOTE SUBJECTIVE: The patient has less abdominal pain. Still remains NPO, nonvisualization of the gallbladder noted by HIDA scan. OBJECTIVE: VITAL SIGNS: Blood pressure 124/66, pulse 93, respiratory rate 20, and afebrile. LUNGS: Bilateral breath sounds. CARDIAC: Regular rhythm and rate. Normal S1 and S2. ABDOMEN: Softer, but still runner. EXTREMITIES: With trace edema. SKIN: Dialysis catheter site clean and dry. LABORATORY DATA: Albumin 1.5, lipase down to 658, BUN 41, creatinine 3.1. IMPRESSION: 1. Possible acute cholecystitis, pancreatitis, improved. 2. Chronic kidney disease, stage 5, on hemodialysis. 3. Hypertensive heart disease. 4. Acute on chronic diastolic congestive heart failure. 5. Metabolic and toxic encephalopathies. PLAN: 1. Await surgical follow up. 2. May need cholecystostomy drain. 3. Continue hemodialysis with ultrafiltration. 4. NPO for now. 5. Titration of cardiovascular regimen ongoing with efforts to avoid risk of hypotension. Lance Rivas M.D. DR: KRISTAN JOB#: [id number] CC:
[2019-10-22] MEDS: HydrALAZINE 50mg tab GT SCH ×3 (06:00→22:25)
[2019-10-22] MEDS: Levothyroxine 125mcg tab GT SCH (06:06)
--- NOTE | 2019-10-22 06:30 | NUR ---
NURSE NOTES: Spoke to Dr. Hendricks regarding patients temperature and blood transfusion. Doctor mentioned to check hemoglobin result today, if it dropped a couple of points, it is ok to give the blood despite the temperature. Doctor also mentioned that it is ok to give if temperature is <99.0.
--- NOTE | 2019-10-22 07:00 | General Progress Note ---
Assessment/Plan Problem List: (1) Sepsis ICD Codes: A41.9 - Sepsis, unspecified organism SNOMED: 09807219 (2) Lactic acid acidosis ICD Codes: E87.2 - Acidosis SNOMED: 87897531 (3) Anemia ICD Codes: D64.9 - Anemia, unspecified SNOMED: 281738844 (4) Alkalosis, metabolic ICD Codes: E87.3 - Alkalosis, metabolic SNOMED: 9463703 (5) Acidosis ICD Codes: E87.2 - Acidosis SNOMED: 30187204 (6) UTI (urinary tract infection) ICD Codes: N39.0 - Urinary tract infection, site not specified SNOMED: 77053785 (7) Acute renal failure (ARF) ICD Codes: N17.9 - Acute kidney failure, unspecified SNOMED: 50269723 Status: stable Assessment/Plan: iv abx follow up cultures wound care HD per renal monitor bp- may need to resume bp meds monitor for bleeding transfuse as needed gi follow up trend wbc monitor lfts d/w dtr nadir- agrees with drain if needed Subjective Allergies: Coded Allergies: ERYTHROMYCIN BASE (Unverified Allergy, Intermediate, 07/14/19) Per patient not allergic to medications or food Subjective per pt abd pain improved. feeds still on hold. MRCP noted. HIDA- nonvis of GB. d/w surgery. cholecystostomy drain recommended Objective Last 24 Hour Vital Signs Date Time Temp Pulse Resp B/P (MAP) Pulse Ox O2 Delivery O2 Flow Rate FiO2 10/22/19 06:00 133/64 10/22/19 04:00 99.9 89 19 126/60 (82) 99 10/22/19 03:55 99.8 10/22/19 00:06 98 Nasal Cannula 2.0 28 10/22/19 00:00 99.1 83 20 127/63 (84) 98 10/21/19 21:00 Nasal Cannula 2.0 10/21/19 20:59 86 124/63 10/21/19 20:56 124/63 10/21/19 20:00 97.9 86 20 124/63 (83) 97 10/21/19 18:20 99.9 10/21/19 17:45 93 135/72 10/21/19 17:17 100.8 10/21/19 16:40 102.0 10/21/19 16:08 100.5 93 22 135/72 (93) 98 10/21/19 13:02 132/77 10/21/19 12:18 98.2 85 20 132/77 (95) 98 10/21/19 09:52 93 124/66 10/21/19 09:51 93 124/66 10/21/19 08:50 Nasal Cannula 2.0 10/21/19 08:43 97.9 92 20 121/72 (88) 98 10/21/19 08:06 96 Nasal Cannula 2.0 28 Intake and Output 10/21/19 10/22/19 19:00 07:00 Intake Total 1045 ml 550 ml Output Total 200 ml Balance 845 ml 550 ml Intake Free Water 100 ml IV Total 605 ml 550 ml Tube Feeding 340 ml Output Urine Total 200 ml # Voids 4 # Bowel Movements 1 Height (Feet): 5 Height (Inches): 1.00 Weight (Pounds): 221 Objective General Appearance: WD/WN, alert Neck: supple Cardiovascular: normal rate, regular rhythm Respiratory/Chest: chest wall non-tender, lungs clear, normal breath sounds Abdomen: normal bowel sounds, soft, no organomegaly, tender Edema: no edema noted Arm (L), no edema noted Arm (R), no edema noted Leg (L), no edema noted Leg (R), no edema noted Pedal (L), no edema noted Pedal (R), no edema noted Generalized Chema Hendricks MD Oct 22, 2019 07:00
[2019-10-22 07:23] LABS: HEMATOCRIT 23.3 % (37.0-47.0); HEMOGLOBIN 7.7 G/DL (12.0-16.0); MEAN CORPUSCULAR VOLUME 88 FL (80-99); PLATELET COUNT 355 K/UL (150-450); RED BLOOD COUNT 2.64 M/UL (4.20-5.40); RED CELL DISTRIBUTION WIDTH 14.6 % (11.6-14.8)
--- NOTE | 2019-10-22 07:29 | NUR ---
HAND-OFF: Report given to ENRIQUE JAIMES.
[2019-10-22 07:37] LABS: ALANINE AMINOTRANSFERASE 13 U/L (12-78); ALBUMIN 1.5 G/DL (3.4-5.0); ALBUMIN/GLOBULIN RATIO 0.3 (1.0-2.7); ALKALINE PHOSPHATASE 141 U/L (46-116); AMYLASE 116 U/L (25-115); ANION GAP 13 mmol/L (5-15); ASPARTATE AMINO TRANSFERASE 31 U/L (15-37); BILIRUBIN,TOTAL 0.7 MG/DL (0.2-1.0); BLOOD UREA NITROGEN 37 mg/dL (7-18); CALCIUM 7.1 MG/DL (8.5-10.1); CARBON DIOXIDE 18 MMOL/L (21-32); CHLORIDE 106 MMOL/L (98-107); CREATININE 2.8 MG/DL (0.55-1.30); POTASSIUM 3.9 MMOL/L (3.5-5.1); SODIUM 137 MMOL/L (136-145)
[2019-10-22 07:46] LABS: INR 1.1 (0.9-1.1)
--- NOTE | 2019-10-22 08:03 | NUR ---
NURSE NOTES: Pt resting in bed, awake, A/O x 2-3, denies pain, no SOB noted, pts on 2L O2 via NC sat 99%, no cough. Pts on cont feeding, Gtube in place, no residual, tolerating well. voiding. right side of the neck, Perm cath in place, IVF infusing. Pt temp 100.4F am, no blood trans until temp below 99F per order. Dressing on sacral changed by night clerk nurse in am, CDI. pts remains IV Abx, iso, fall and asp precaution maintained. call light within reach, bed alarm on, bed in low position, will continue to monitor.
--- NOTE | 2019-10-22 08:54 | Nephrology Progress Note ---
Assessment/Plan Status: stable Assessment/Plan: A/P (1) HCAP- on Meropenem (2) Anemia in CKD - EPO if Hgb <10 (3) CKD (chronic kidney disease) stage 5, GFR less than 15 ml/min - continue to hold off HD as Cr improving (4) Sepsis -cont rxx esbl sepsis (5) Ascites/ Cirrhosis Mgmt per GI Subjective Date patient seen: Oct 22, 2019 Time patient seen: 08:52 ROS Limited/Unobtainable: Yes Allergies: Coded Allergies: ERYTHROMYCIN BASE (Unverified Allergy, Intermediate, 07/14/19) Per patient not allergic to medications or food Subjective Patient in no distress. Wounds much improved Objective Last 24 Hour Vital Signs Date Time Temp Pulse Resp B/P (MAP) Pulse Ox O2 Delivery O2 Flow Rate FiO2 10/22/19 06:00 133/64 10/22/19 04:00 99.9 89 19 126/60 (82) 99 10/22/19 03:55 99.8 10/22/19 00:06 98 Nasal Cannula 2.0 28 10/22/19 00:00 99.1 83 20 127/63 (84) 98 10/21/19 21:00 Nasal Cannula 2.0 10/21/19 20:59 86 124/63 10/21/19 20:56 124/63 10/21/19 20:00 97.9 86 20 124/63 (83) 97 10/21/19 18:20 99.9 10/21/19 17:45 93 135/72 10/21/19 17:17 100.8 10/21/19 16:40 102.0 10/21/19 16:08 100.5 93 22 135/72 (93) 98 10/21/19 13:02 132/77 10/21/19 12:18 98.2 85 20 132/77 (95) 98 10/21/19 09:52 93 124/66 10/21/19 09:51 93 124/66 Intake and Output 10/21/19 10/22/19 19:00 07:00 Intake Total 1045 ml 675 ml Output Total 200 ml 400 ml Balance 845 ml 275 ml Intake Free Water 100 ml 70 ml IV Total 605 ml 550 ml Tube Feeding 340 ml 55 ml Output Urine Total 200 ml 400 ml # Voids 4 3 # Bowel Movements 1 1 Laboratory Tests 10/22/19 07:05: White Blood Count 11.0H, Red Blood Count 2.64L, Hemoglobin 7.7L, Hematocrit 23.3L, Mean Corpuscular Volume 88, Mean Corpuscular Hemoglobin 29.1, Mean Corpuscular Hemoglobin Concent 32.9, Red Cell Distribution Width 14.6, Platelet Count 355, Mean Platelet Volume 6.5, Neutrophils (%) (Auto) , Lymphocytes (%) ( Auto) , Monocytes (%) (Auto) , Eosinophils (%) (Auto) , Basophils (%) (Auto) , Neutrophils % (Manual) [Pending], Lymphocytes % (Manual) [Pending], Platelet Estimate [Pending], Platelet Morphology [Pending], Prothrombin Time 11.8H, Prothromb Time International Ratio 1.1, Activated Partial Thromboplast Time 33, Sodium Level 137, Potassium Level 3.9, Chloride Level 106, Carbon Dioxide Level 18L, Anion Gap 13, Blood Urea Nitrogen 37H, Creatinine 2.8H, Estimat Glomerular Filtration Rate , Glucose Level 102, Calcium Level 7.1L, Magnesium Level 1.6L, Total Bilirubin 0.7, Aspartate Amino Transf (AST/SGOT) 31, Alanine Aminotransferase (ALT/SGPT) 13, Alkaline Phosphatase 141H, Pro-B-Type Natriuretic Peptide 6257H, Total Protein 6.0L, Albumin 1.5L, Globulin 4.5, Albumin/Globulin Ratio 0.3L, Amylase Level 116H, Lipase 611H Height (Feet): 5 Height (Inches): 1.00 Weight (Pounds): 221 General Appearance: no apparent distress EENT: normal ENT inspection Neck: normal alignment, supple Cardiovascular: normal rate, regular rhythm Respiratory/Chest: lungs clear, normal breath sounds Abdomen: non tender, soft Edema: no edema noted Arm (L), no edema noted Arm (R), no edema noted Leg (L), no edema noted Leg (R), no edema noted Pedal (L), no edema noted Pedal (R), no edema noted Generalized Cody Hoyos MD Oct 22, 2019 08:54
[2019-10-22] MEDS: Meropenem 500 MG in NS 55 ML IVPB SCH (09:00)
[2019-10-22] MEDS: D5W w/KCl 20mEq 1,000 ML IV SCH (09:16)
--- NOTE | 2019-10-22 09:23 | General Progress Note ---
Assessment/Plan Status: stable Assessment/Plan: 1. Chronic kidney disease. 2. Hypertension. 3. CHF. 4. Dysphagia with a G-tube. 5. History of sepsis. 6. Anemia. 7. Hepatitis C. 8. Pneumonia. 9. cirrhosis. 10. gallstones 11. ascites us reviewed s/p paracentesis>>> No SBP abx GTF will resume today abx anemia work up GI procedures on hold for now repeat CT reviewed MRCP reviewed repeat lipase, amylase d/w surg, plan percutaneous cholecystostomy tube placement, pending family consent Subjective ROS Limited/Unobtainable: Yes Allergies: Coded Allergies: ERYTHROMYCIN BASE (Unverified Allergy, Intermediate, 07/14/19) Per patient not allergic to medications or food Subjective diarrhea Objective Last 24 Hour Vital Signs Date Time Temp Pulse Resp B/P (MAP) Pulse Ox O2 Delivery O2 Flow Rate FiO2 10/22/19 08:00 100.4 94 21 130/67 (88) 94 10/22/19 06:00 133/64 10/22/19 04:00 99.9 89 19 126/60 (82) 99 10/22/19 03:55 99.8 10/22/19 00:06 98 Nasal Cannula 2.0 28 10/22/19 00:00 99.1 83 20 127/63 (84) 98 10/21/19 21:00 Nasal Cannula 2.0 10/21/19 20:59 86 124/63 10/21/19 20:56 124/63 10/21/19 20:00 97.9 86 20 124/63 (83) 97 10/21/19 18:20 99.9 10/21/19 17:45 93 135/72 10/21/19 17:17 100.8 10/21/19 16:40 102.0 10/21/19 16:08 100.5 93 22 135/72 (93) 98 10/21/19 13:02 132/77 10/21/19 12:18 98.2 85 20 132/77 (95) 98 10/21/19 09:52 93 124/66 10/21/19 09:51 93 124/66 Intake and Output 10/21/19 10/22/19 19:00 07:00 Intake Total 1045 ml 675 ml Output Total 200 ml 400 ml Balance 845 ml 275 ml Intake Free Water 100 ml 70 ml IV Total 605 ml 550 ml Tube Feeding 340 ml 55 ml Output Urine Total 200 ml 400 ml # Voids 4 3 # Bowel Movements 1 1 Laboratory Tests 10/22/19 07:05: White Blood Count 11.0H, Red Blood Count 2.64L, Hemoglobin 7.7L, Hematocrit 23.3L, Mean Corpuscular Volume 88, Mean Corpuscular Hemoglobin 29.1, Mean Corpuscular Hemoglobin Concent 32.9, Red Cell Distribution Width 14.6, Platelet Count 355, Mean Platelet Volume 6.5, Neutrophils (%) (Auto) , Lymphocytes (%) ( Auto) , Monocytes (%) (Auto) , Eosinophils (%) (Auto) , Basophils (%) (Auto) , Neutrophils % (Manual) [Pending], Lymphocytes % (Manual) [Pending], Platelet Estimate [Pending], Platelet Morphology [Pending], Prothrombin Time 11.8H, Prothromb Time International Ratio 1.1, Activated Partial Thromboplast Time 33, Sodium Level 137, Potassium Level 3.9, Chloride Level 106, Carbon Dioxide Level 18L, Anion Gap 13, Blood Urea Nitrogen 37H, Creatinine 2.8H, Estimat Glomerular Filtration Rate , Glucose Level 102, Calcium Level 7.1L, Magnesium Level 1.6L, Total Bilirubin 0.7, Aspartate Amino Transf (AST/SGOT) 31, Alanine Aminotransferase (ALT/SGPT) 13, Alkaline Phosphatase 141H, Pro-B-Type Natriuretic Peptide 6257H, Total Protein 6.0L, Albumin 1.5L, Globulin 4.5, Albumin/Globulin Ratio 0.3L, Amylase Level 116H, Lipase 611H Height (Feet): 5 Height (Inches): 1.00 Weight (Pounds): 221 General Appearance: no apparent distress EENT: normal ENT inspection Neck: supple Cardiovascular: normal rate Respiratory/Chest: decreased breath sounds Abdomen: soft, hypoactive bowel sounds, tender Extremities: non-tender David Bosch MD Oct 22, 2019 09:23
--- NOTE | 2019-10-22 10:29 | Diagnostic Imaging Report ---
APPROVED REPORT CPT Code: 37619 Present Symptoms Shortness of breath BILATERAL: Imaging reveals a patent deep venous system bilaterally. There is no evidence of thrombus within the femoral, popliteal or tibial segments. The greater saphenous veins are also within normal limits. Doppler indicates normal spontaneous flow within these segments.
--- NOTE | 2019-10-22 10:59 | Infectious Diseases Prog Note ---
Assessment/Plan Assessment/Plan antibiotics : meropenem A 1. cholecystitis 2. leucocytosis improving 3. renal failure on HD 4. thrombocytopenia 5. pneumonia 6. Parkinsons disease 7. dementia 8. cirrhosis 9. fever P 1. continue meropenem 2. blood culture 3. start iv vancomycin 4. will follow up cultures Subjective ROS Limited/Unobtainable: Yes Allergies: Coded Allergies: ERYTHROMYCIN BASE (Unverified Allergy, Intermediate, 07/14/19) Per patient not allergic to medications or food Objective Vital Signs Last 24 Hour Vital Signs Date Time Temp Pulse Resp B/P (MAP) Pulse Ox O2 Delivery O2 Flow Rate FiO2 10/22/19 09:40 Room Air 2.0 10/22/19 09:20 94 138/67 10/22/19 09:20 94 130/67 10/22/19 09:00 Nasal Cannula 2.0 10/22/19 08:00 100.4 94 21 130/67 (88) 94 10/22/19 06:00 133/64 10/22/19 04:00 99.9 89 19 126/60 (82) 99 10/22/19 03:55 99.8 10/22/19 00:06 98 Nasal Cannula 2.0 28 10/22/19 00:00 99.1 83 20 127/63 (84) 98 10/21/19 21:00 Nasal Cannula 2.0 10/21/19 20:59 86 124/63 10/21/19 20:56 124/63 10/21/19 20:00 97.9 86 20 124/63 (83) 97 10/21/19 18:20 99.9 10/21/19 17:45 93 135/72 10/21/19 17:17 100.8 10/21/19 16:40 102.0 10/21/19 16:08 100.5 93 22 135/72 (93) 98 10/21/19 13:02 132/77 10/21/19 12:18 98.2 85 20 132/77 (95) 98 Height (Feet): 5 Height (Inches): 1.00 Weight (Pounds): 221 Laboratory Tests Test 10/22/19 07:05 White Blood Count 11.0 K/UL (4.8-10.8) H Red Blood Count 2.64 M/UL (4.20-5.40) L Hemoglobin 7.7 G/DL (12.0-16.0) L Hematocrit 23.3 % (37.0-47.0) L Mean Corpuscular Volume 88 FL (80-99) Mean Corpuscular Hemoglobin 29.1 PG (27.0-31.0) Mean Corpuscular Hemoglobin Concent 32.9 G/DL (32.0-36.0) Red Cell Distribution Width 14.6 % (11.6-14.8) Platelet Count 355 K/UL (150-450) Mean Platelet Volume 6.5 FL (6.5-10.1) Neutrophils (%) (Auto) % (45.0-75.0) Lymphocytes (%) (Auto) % (20.0-45.0) Monocytes (%) (Auto) % (1.0-10.0) Eosinophils (%) (Auto) % (0.0-3.0) Basophils (%) (Auto) % (0.0-2.0) Differential Total Cells Counted 100 Neutrophils % (Manual) 88 % (45-75) H Lymphocytes % (Manual) 6 % (20-45) L Monocytes % (Manual) 5 % (1-10) Eosinophils % (Manual) 1 % (0-3) Basophils % (Manual) 0 % (0-2) Band Neutrophils 0 % (0-8) Platelet Estimate Adequate Platelet Morphology Normal Polychromasia 1+ Anisocytosis 1+ Prothrombin Time 11.8 SEC (9.30-11.50) H Prothromb Time International Ratio 1.1 (0.9-1.1) Activated Partial Thromboplast Time 33 SEC (23-33) Sodium Level 137 MMOL/L (136-145) Potassium Level 3.9 MMOL/L (3.5-5.1) Chloride Level 106 MMOL/L (98-107) Carbon Dioxide Level 18 MMOL/L (21-32) L Anion Gap 13 mmol/L (5-15) Blood Urea Nitrogen 37 mg/dL (7-18) H Creatinine 2.8 MG/DL (0.55-1.30) H Estimat Glomerular Filtration Rate mL/min (>60) Glucose Level 102 MG/DL (74-106) Calcium Level 7.1 MG/DL (8.5-10.1) L Magnesium Level 1.6 MG/DL (1.8-2.4) L Total Bilirubin 0.7 MG/DL (0.2-1.0) Aspartate Amino Transf (AST/SGOT) 31 U/L (15-37) Alanine Aminotransferase (ALT/SGPT) 13 U/L (12-78) Alkaline Phosphatase 141 U/L (46-116) H Pro-B-Type Natriuretic Peptide 6257 pg/mL (0-125) H Total Protein 6.0 G/DL (6.4-8.2) L Albumin 1.5 G/DL (3.4-5.0) L Globulin 4.5 g/dL Albumin/Globulin Ratio 0.3 (1.0-2.7) L Amylase Level 116 U/L (25-115) H Lipase 611 U/L (73-393) H Current Medications Medications (Trade) Dose Ordered Sig/Jonathan Route PRN Reason Start Time Stop Time Status Last Admin Dose Admin Acetaminophen (Tylenol) 650 mg Q4H PRN GT Mild Pain/Temp > 100.5 10/20/19 00:30 11/06/19 20:29 10/22/19 03:25 Amlodipine Besylate (Norvasc) 5 mg BID GT 10/20/19 09:00 11/13/19 17:59 10/22/19 09:20 Chlorhexidine Gluconate (Meredith-Hex 2%) 1 applic DAILY@1999 TOPIC 10/20/19 20:00 11/09/19 19:59 10/21/19 20:59 Dextrose/ Electrolytes 1,000 ml @ 50 mls/hr Q20H IV 10/20/19 16:00 11/19/19 15:59 10/22/19 09:16 Diphenhydramine HCl (Benadryl) 25 mg Q8H PRN GT Itching 10/20/19 00:30 11/14/19 08:29 Hydralazine HCl (Apresoline) 100 mg Q8HR GT 10/20/19 06:00 11/06/19 21:59 10/20/19 22:49 Lansoprazole (Prevacid) 30 mg DAILY GT 10/20/19 09:00 11/07/19 08:59 10/22/19 09:20 Levothyroxine Sodium (Synthroid) 125 mcg ACBREAKFAST GT 10/20/19 06:30 11/07/19 06:29 10/22/19 06:06 Lidocaine HCl (Xylocaine 1% 30ml) 30 ml ONCE PRN INJ cath placement 10/21/19 14:45 10/22/19 14:44 Loperamide HCl (Imodium) 2 mg Q12H PRN GT Diarrhea 10/20/19 08:30 11/18/19 08:29 Meropenem 500 mg/ Sodium Chloride 55 ml @ 110 mls/hr Q24H IVPB 10/22/19 09:00 10/27/19 08:59 Metoclopramide HCl (Reglan) 5 mg Q6H PRN IVP Nausea & Vomiting 10/20/19 04:15 11/16/19 10:14 Metoprolol Tartrate (Lopressor) 50 mg Q12HR GT 10/20/19 09:00 11/15/19 08:59 10/22/19 09:20 Jessica Reyes MD Oct 22, 2019 10:59
--- NOTE | 2019-10-22 11:52 | NUR ---
RD ASSESSMENT & RECOMMENDATIONS SEE CARE ACTIVITY FOR COMPLETE ASSESSMENT DAILY ESTIMATED NEEDS: Needs based on CKD V, Wound 57.7kg abw 25-30 kcals/kg 4310-4795 total kcals (Without HD:0.6-1) (With HD: 1.25-1.8) g protein/kg (Without HD: 35-58) (With HD: 72-104) g total protein Fluid per MD NUTRITION DIAGNOSIS: 1) Altered nutrition related lab values r/t JJ on CKD 4 as evidenced by elev creat (6.8 -> 3.0-> 2.8), elev BUN (119->37), elev K (5.3-> wnl->5.0). elev Na (158 -> wnl), s/p placement of Broderick cath, HD x1. 2) Swallowing difficulty r/t dysphagia as evidenced by GT dep, TF currently held for residuals, vomiting x 1, +diarrhea, abd pain. CURRENT TF:Vital @55ml x22 hrs ENTERAL NUTRITION RECOMMENDATIONS: Nepro @ 42ml/hr x 22 hrs to provide 924ml, 1663kcal, 75g prot, 672ml free water * W/ continued HD, rec to increase goal rate to 42ml/hr x 22 hrs (hold 1 hr before and after Synthroid med) - HOB over 30 degrees/ water flush per MD *WITHOUT HD, rec Nepro @ 35ml/hr x 22 hrs to provide 770ml, 1386 kcal, 62g pro, 560ml free H2o* ADDITIONAL RECOMMENDATIONS: 1) Calibrated bedscale wt for accurate CBW Bed scale reads 216.7# w/ EMR wt of 185# 2) Monitor renal fxn, monitor for continuation of HD (s/p HD x 1 on 10/09) 3) Monitor lytes, check f/up phos and mag level 4) Wound healing: add Nephrovite x 1 + Kael 1pkt BID 5) Add probiotics via GT
[2019-10-22] MEDS ORDERED: Vancomycin 1.5gm/NS Premix IVPB ONE (13:00)
--- NOTE | 2019-10-22 13:11 | NUR ---
CASE MANAGEMENT:REVIEW 10/22/19 SI: SEPSIS. E COLI BACTEREMIA AC/CHR RENAL FAILURE......ESRD ON HD. CHRONIC LIVER DZ S/P PARACENTESIS...0.23L REMOVED 100.3 83 20 123/62 99% ON2L/NC WBC+11.0 H/H-7.7/23.3 BUN+37 CR=2.8 IS: IV MEROPENEM Q12 VANCOMYCIN GT QID SYNTHROID GT QD IVF@175/HR IV VENOFER QHS HYDRALAZINE GT Q8HRS NORVASC GT BID LOPRESSOR GT Q12 : TELEMETRY STATUS DCP; FROM CV TERRACE Addendum: 10/22/19 at 1316 by BENNY RUBIO LVN LVN CORRECTION IVF@ 50/HR
--- NOTE | 2019-10-22 15:42 | Surgery Progress Note ---
Surgery Progress Note Subjective Additional Comments Patient seen and examined bedside. Still states she is got some abdominal pain. I had a long discussion with GI, PCP, and the patient's family. I spoke to the daughter explained to her the current findings current recommendations care goal plans and indications and recommendations for the cholecystostomy tube placement. She specs understanding and consented to procedure. Objective Last 24 Hour Vital Signs Date Time Temp Pulse Resp B/P (MAP) Pulse Ox O2 Delivery O2 Flow Rate FiO2 10/22/19 14:00 123/62 10/22/19 13:05 97 Nasal Cannula 2.0 28 10/22/19 12:00 100.3 83 20 123/62 (82) 99 10/22/19 09:40 Room Air 2.0 10/22/19 09:20 94 138/67 10/22/19 09:20 94 130/67 10/22/19 09:00 Nasal Cannula 2.0 10/22/19 08:00 100.4 94 21 130/67 (88) 94 10/22/19 06:00 133/64 10/22/19 04:00 99.9 89 19 126/60 (82) 99 10/22/19 03:55 99.8 10/22/19 00:06 98 Nasal Cannula 2.0 28 10/22/19 00:00 99.1 83 20 127/63 (84) 98 10/21/19 21:00 Nasal Cannula 2.0 10/21/19 20:59 86 124/63 10/21/19 20:56 124/63 10/21/19 20:00 97.9 86 20 124/63 (83) 97 10/21/19 18:20 99.9 10/21/19 17:45 93 135/72 10/21/19 17:17 100.8 10/21/19 16:40 102.0 10/21/19 16:08 100.5 93 22 135/72 (93) 98 I&O Intake and Output 10/21/19 10/22/19 18:59 06:59 Intake Total 1065 ml 725 ml Output Total 200 ml 400 ml Balance 865 ml 325 ml Intake Free Water 100 ml 70 ml IV Total 605 ml 600 ml Tube Feeding 360 ml 55 ml Output Urine Total 200 ml 400 ml # Voids 4 3 # Bowel Movements 1 1 Dressing: other Wound: other Drains: other Cardiovascular: RSR Respiratory: clear, decreased breath sounds Abdomen: soft, tenderness, non-distended Extremities: no tenderness, no cyanosis, other Laboratory Tests Test 10/22/19 07:05 White Blood Count 11.0 K/UL (4.8-10.8) H Red Blood Count 2.64 M/UL (4.20-5.40) L Hemoglobin 7.7 G/DL (12.0-16.0) L Hematocrit 23.3 % (37.0-47.0) L Mean Corpuscular Volume 88 FL (80-99) Mean Corpuscular Hemoglobin 29.1 PG (27.0-31.0) Mean Corpuscular Hemoglobin Concent 32.9 G/DL (32.0-36.0) Red Cell Distribution Width 14.6 % (11.6-14.8) Platelet Count 355 K/UL (150-450) Mean Platelet Volume 6.5 FL (6.5-10.1) Neutrophils (%) (Auto) % (45.0-75.0) Lymphocytes (%) (Auto) % (20.0-45.0) Monocytes (%) (Auto) % (1.0-10.0) Eosinophils (%) (Auto) % (0.0-3.0) Basophils (%) (Auto) % (0.0-2.0) Differential Total Cells Counted 100 Neutrophils % (Manual) 88 % (45-75) H Lymphocytes % (Manual) 6 % (20-45) L Monocytes % (Manual) 5 % (1-10) Eosinophils % (Manual) 1 % (0-3) Basophils % (Manual) 0 % (0-2) Band Neutrophils 0 % (0-8) Platelet Estimate Adequate Platelet Morphology Normal Polychromasia 1+ Anisocytosis 1+ Prothrombin Time 11.8 SEC (9.30-11.50) H Prothromb Time International Ratio 1.1 (0.9-1.1) Activated Partial Thromboplast Time 33 SEC (23-33) Sodium Level 137 MMOL/L (136-145) Potassium Level 3.9 MMOL/L (3.5-5.1) Chloride Level 106 MMOL/L (98-107) Carbon Dioxide Level 18 MMOL/L (21-32) L Anion Gap 13 mmol/L (5-15) Blood Urea Nitrogen 37 mg/dL (7-18) H Creatinine 2.8 MG/DL (0.55-1.30) H Estimat Glomerular Filtration Rate mL/min (>60) Glucose Level 102 MG/DL (74-106) Calcium Level 7.1 MG/DL (8.5-10.1) L Magnesium Level 1.6 MG/DL (1.8-2.4) L Total Bilirubin 0.7 MG/DL (0.2-1.0) Aspartate Amino Transf (AST/SGOT) 31 U/L (15-37) Alanine Aminotransferase (ALT/SGPT) 13 U/L (12-78) Alkaline Phosphatase 141 U/L (46-116) H Pro-B-Type Natriuretic Peptide 6257 pg/mL (0-125) H Total Protein 6.0 G/DL (6.4-8.2) L Albumin 1.5 G/DL (3.4-5.0) L Globulin 4.5 g/dL Albumin/Globulin Ratio 0.3 (1.0-2.7) L Amylase Level 116 U/L (25-115) H Lipase 611 U/L (73-393) H Plan Problems: (1) Lactic acid acidosis Assessment & Plan: Patient noted to have leukocytosis, fevers, abdominal wall cellulitis, lactic acidosis. Abnormal labs. Etiology and work-up continuing currently with microbiology pending and on IV antibiotics Leukocytosis Elevated LFTs. Imaging noted. Unlikely cholecystitis but potential passed stone. Will discuss with GI for considerations of MRCP versus ERCP versus monitoring Local care being provided. Imaging noted Pt presented on admission with partially opened DTPI Sacrum.Base of wound extends from sacrum to R and L buttocks and is maroon with #3 small openings , each with slough at mid sacral area. Pt grimaced when affected area minimally palpated. Non-blanching erythema noted to R and L ischial regions. Moisture Intertrigo with surrounding erythema and denuded skin noted to R and L breasts. Mild odor noted each skin folds of breasts.Small amt sanguineous exudate noted from L breast. Mons pubis,labia majora, and medial aspects of both upper thighs erythematous and denuded. R ad L heels are firm and blanchable. Tx.Plan: [place] Liquid Skin Repair to R and L breasts(x1 application) applied to folds of each breasts. Apply Moisture Barrier paste to perineum with each incontinence care. Apply Moisture Barrier Paste to Sacrum.Cover with Optifoam drsgs. Change every 3 days and prn. APM/SIM Mattress overlay. Reposition at least every 2 hours or as tolerated. Off-load heels with pillow. (2) Sepsis Assessment & Plan: 73-year-old female with sepsis, lactic acidosis, renal insufficiency, cellulitis, leukocytosis. Febrile, hemodynamically stable, exam as above Coordinated with radiology for urgent temporary even as catheter insertion. Placed today and will discuss with nephrology for dialysis Antibiotics as per infectious disease Trend labs IV fluid resuscitation Dense consolidation in the posterior right lower lobe, likely pneumonia Liquid stool in the proximal colon, could indicate diarrheal illness Trace free intraperitoneal fluid Slight hepatic atrophy and surface nodularity raising possibility of cirrhotic change Small lesser sac varices and splenomegaly raises possibility of portal hypertension Pericardial effusion, also evident previously abd wall cellulitis superficial and lumps likely prior injection sites and not infected. cholelithiasis unlikely etiology lft's trending down cameron/lip pancreatitis chemical CT noted cont abx can consider cholecystostomy tube if note improving HIDA positive MRCP Findings: There is mild ascites. There is nodularity of the liver surface. Gallbladder is distended. There is thickening of the gallbladder wall and multiple gallstones. There is no evidence of intrahepatic biliary ductal dilatation. CBD is normal in caliber measuring about 4 mm. There are a few cysts within both kidneys. There is a small right pleural effusion trace left pleural effusion. The spleen is prominent. IMPRESSION: No biliary ductal dilatation or evidence of choledocholithiasis Cholelithiasis. Cirrhosis of the liver with signs of portal hypertension including ascites and splenomegaly. Small bilateral renal cysts Small right pleural effusion. Trace left pleural effusion. We will follow with recommendations cholecystostomy tube placement Thank you for allowing me to participate in patient care Kirk Em Oct 22, 2019 15:42
--- NOTE | 2019-10-22 19:31 | NUR ---
HAND-OFF: Report given to Torrie NUNEZ.
--- NOTE | 2019-10-22 19:37 | NUR ---
NURSE NOTES: Received report from ENRIQUE Linn. Patient asleep. Breathing unlabored on 2L O2 via NC without distress. No s/s of discomfort or pain noted at this time. Patient on P200 mattress. Bed placed at the lowest with alarm, brake, and siderails up for safety. Feeding running as ordered through Gtube. Call light placed within reach. Will continue to monitor and provide care as ordered.
[2019-10-22] MEDS: Dyna-Hex 2% Top Sol 2oz TOPIC SCH (19:58)
[2019-10-22] MEDS: Metoprolol Tartrate 50mg tab GT SCH (21:08)
--- NOTE | 2019-10-22 22:58 | NUR ---
NURSE NOTES: Patient's temperature reading 100.9. Lowered the room temperature and offered an iced pack. Patient refused iced pack. Will continue to monitor and provide care as ordered.
[2019-10-23] VITALS (13 sets, daily range): BP systolic 119–137; BP diastolic 59–73
--- NOTE | 2019-10-23 03:03 | Progress Note ---
DATE: 10/22/2019 SUBJECTIVE: The patient continues to have abdominal pain. She remains NPO. OBJECTIVE: VITAL SIGNS: Blood pressure 126/60, pulse 89, respirations 19, and temperature 99.9. The patient was seen by surgeon. Cholecystostomy drain is recommended. LUNGS: Diminished breath sounds. Right chest wall dialysis catheter site clean and dry. Lungs clear. CARDIAC: Regular rhythm and rate. Normal S1, S2. ABDOMEN: Slightly tender diffusely. EXTREMITIES: Trace edema. LABORATORY DATA: White count 11 and hemoglobin 7.7. BUN 37 and creatinine 2.8. Magnesium 1.6. Pro-natriuretic peptide 6200 and albumin 1.5. IMPRESSION: 1. Cholecystitis. 2. Sepsis. 3. Hypomagnesemia. 4. End-stage renal disease, on hemodialysis. 5. Acute on chronic diastolic congestive heart failure. PLAN: 1. cholecystostomy placement. 2. Intravenous magnesium. 3. Antimicrobials. 4. Respiratory hygiene. 5. Hemodialysis with ultrafiltration for volume management. 6. Remains tenuous and high risk. Lance Rivas M.D. DR: GRACIELA JOB#: [id number] CC:
[2019-10-23] MEDS: D5W w/KCl 20mEq 1,000 ML IV SCH (04:40)
--- NOTE | 2019-10-23 05:00 | NUR ---
NURSE NOTES: Patient's rechecked temperature reading 100.1. Cooling measures provided. Will continue to monitor and endorse patient's status to dayshift.
[2019-10-23 05:55] LABS: BASOPHILS % (AUTO) 0.4 % (0.0-2.0); EOSINOPHILS % (AUTO) 2.4 % (0.0-3.0); HEMATOCRIT 24.8 % (37.0-47.0); LYMPHOCYTES % (AUTO) 8.8 % (20.0-45.0); MEAN CORPUSCULAR VOLUME 90 FL (80-99); MONOCYTES % (AUTO) 5.8 % (1.0-10.0); NEUTROPHILS % (AUTO) 82.6 % (45.0-75.0); PLATELET COUNT 345 K/UL (150-450); RED BLOOD COUNT 2.76 M/UL (4.20-5.40); RED CELL DISTRIBUTION WIDTH 14.9 % (11.6-14.8); WHITE BLOOD COUNT 9.6 K/UL (4.8-10.8)
[2019-10-23] MEDS: Levothyroxine 125mcg tab GT SCH (06:21)
[2019-10-23] MEDS: HydrALAZINE 50mg tab GT SCH ×3 (06:21→22:00)
[2019-10-23 06:35] LABS: ALANINE AMINOTRANSFERASE 15 U/L (12-78); ALBUMIN 1.7 G/DL (3.4-5.0); ALBUMIN/GLOBULIN RATIO 0.3 (1.0-2.7); ALKALINE PHOSPHATASE 142 U/L (46-116); AMYLASE 133 U/L (25-115); ANION GAP 11 mmol/L (5-15); ASPARTATE AMINO TRANSFERASE 34 U/L (15-37); BILIRUBIN,TOTAL 0.8 MG/DL (0.2-1.0); BLOOD UREA NITROGEN 36 mg/dL (7-18); CALCIUM 7.3 MG/DL (8.5-10.1); CARBON DIOXIDE 20 MMOL/L (21-32); CHLORIDE 104 MMOL/L (98-107); CREATININE 2.8 MG/DL (0.55-1.30); POTASSIUM 4.2 MMOL/L (3.5-5.1); SODIUM 135 MMOL/L (136-145)
[2019-10-23] MEDS ORDERED: Heparin1,000 units/500ml Premix(Conc:2 units/ml) ONE (07:00)
--- NOTE | 2019-10-23 07:30 | NUR ---
HAND-OFF: Report given to ENRIQUE Vaz.
--- NOTE | 2019-10-23 08:11 | General Progress Note ---
Assessment/Plan Problem List: (1) Sepsis ICD Codes: A41.9 - Sepsis, unspecified organism SNOMED: 95737476 (2) Lactic acid acidosis ICD Codes: E87.2 - Acidosis SNOMED: 19429466 (3) Anemia ICD Codes: D64.9 - Anemia, unspecified SNOMED: 639480714 (4) Alkalosis, metabolic ICD Codes: E87.3 - Alkalosis, metabolic SNOMED: 7005018 (5) Acidosis ICD Codes: E87.2 - Acidosis SNOMED: 98621685 (6) UTI (urinary tract infection) ICD Codes: N39.0 - Urinary tract infection, site not specified SNOMED: 74084267 (7) Acute renal failure (ARF) ICD Codes: N17.9 - Acute kidney failure, unspecified SNOMED: 33385029 Status: stable Assessment/Plan: cholecystostomy drain iv abx follow up cultures wound care HD per renal monitor bp- may need to resume bp meds monitor for bleeding transfuse as needed gi follow up trend wbc monitor lfts d/w dtr nadir- agrees with drain if needed Subjective ROS Limited/Unobtainable: No Constitutional: Reports: malaise, weakness HEENT: Reports: no symptoms Cardiovascular: Reports: no symptoms Respiratory: Reports: no symptoms Gastrointestinal/Abdominal: Reports: abdominal pain Genitourinary: Reports: no symptoms Neurologic/Psychiatric: Reports: no symptoms Endocrine: Reports: no symptoms Hematologic/Lymphatic: Reports: anemia Allergies: Coded Allergies: ERYTHROMYCIN BASE (Unverified Allergy, Intermediate, 07/14/19) Per patient not allergic to medications or food All Systems: reviewed and negative except above Subjective per pt abd pain improved. MRCP noted. HIDA- nonvis of GB. d/w surgery. cholecystostomy drain recommended. d/w dtr- agrees to drain if needed Objective Last 24 Hour Vital Signs Date Time Temp Pulse Resp B/P (MAP) Pulse Ox O2 Delivery O2 Flow Rate FiO2 10/23/19 06:21 136/71 10/23/19 04:00 100.1 90 20 137/70 (92) 100 10/23/19 00:22 98 Nasal Cannula 2.0 28 10/23/19 00:00 100.3 89 20 119/73 (88) 96 10/22/19 22:25 121/64 12/4/19 21:08 96 131/72 10/22/19 21:08 101.1 10/22/19 21:00 Nasal Cannula 2.0 10/22/19 20:00 103.1 99 20 138/69 (92) 99 10/22/19 18:05 92 139/69 10/22/19 18:04 100.7 92 19 139/69 (92) 99 10/22/19 16:00 100.7 92 19 139/69 (92) 99 10/22/19 14:00 123/62 10/22/19 13:05 97 Nasal Cannula 2.0 28 10/22/19 12:00 100.3 83 20 123/62 (82) 99 10/22/19 09:40 Room Air 2.0 10/22/19 09:20 94 138/67 10/22/19 09:20 94 130/67 10/22/19 09:00 Nasal Cannula 2.0 Intake and Output 10/22/19 10/23/19 19:00 07:00 Intake Total 310 ml 920 ml Output Total 800 ml Balance 310 ml 120 ml Intake Free Water 200 ml 100 ml IV Total 600 ml Tube Feeding 110 ml 220 ml Output Urine Total 800 ml # Voids 3 # Bowel Movements 3 2 Laboratory Tests 10/23/19 05:17: White Blood Count 9.6, Red Blood Count 2.76L, Hemoglobin 8.0L, Hematocrit 24.8L , Mean Corpuscular Volume 90, Mean Corpuscular Hemoglobin 29.1, Mean Corpuscular Hemoglobin Concent 32.5, Red Cell Distribution Width 14.9H, Platelet Count 345, Mean Platelet Volume 6.5, Neutrophils (%) (Auto) 82.6H, Lymphocytes (%) (Auto) 8.8L, Monocytes (%) (Auto) 5.8, Eosinophils (%) (Auto) 2.4, Basophils (%) (Auto) 0.4, Sodium Level 135L, Potassium Level 4.2, Chloride Level 104, Carbon Dioxide Level 20L, Anion Gap 11, Blood Urea Nitrogen 36H, Creatinine 2.8H, Estimat Glomerular Filtration Rate , Glucose Level 71L, Calcium Level 7.3L, Total Bilirubin 0.8, Aspartate Amino Transf (AST/SGOT) 34, Alanine Aminotransferase (ALT/SGPT) 15, Alkaline Phosphatase 142H, Total Protein 6.7, Albumin 1.7L, Globulin 5.0, Albumin/Globulin Ratio 0.3L, Amylase Level 133H, Lipase 886H, Random Vancomycin Level 19.7 Height (Feet): 5 Height (Inches): 1.00 Weight (Pounds): 221 Objective General Appearance: WD/WN, alert Neck: supple Cardiovascular: normal rate, regular rhythm Respiratory/Chest: chest wall non-tender, lungs clear, normal breath sounds Abdomen: normal bowel sounds, soft, no organomegaly, tender Edema: no edema noted Arm (L), no edema noted Arm (R), no edema noted Leg (L), no edema noted Leg (R), no edema noted Pedal (L), no edema noted Pedal (R), no edema noted Generalized Chema Hendricks MD Oct 23, 2019 08:11
[2019-10-23] MEDS ORDERED: Lidocaine 1% Plain 30 ml INJ PRN (08:15)
--- NOTE | 2019-10-23 08:22 | NUR ---
NURSE NOTES: patient alert to name.02 on at 2L N/C,respirations unlabored.IV fluids infusing as ordered.Patient IS NPO for scheldule procedure as ordered.Bed alarm is on,call light within reach
[2019-10-23] MEDS: Metoprolol Tartrate 50mg tab GT SCH ×2 (09:00→21:12)
--- NOTE | 2019-10-23 09:02 | Nephrology Progress Note ---
Assessment/Plan Status: stable Assessment/Plan: A/P (1) Anemia in CKD - EPO if Hgb <10 (2) CKD (chronic kidney disease) stage 5, GFR less than 15 ml/min - continue to hold off HD as Cr improving at 2.8 - OK for DC from renal point (3) Sepsis -cont rxx esbl sepsis (4) Ascites/ Cirrhosis Mgmt per GI Subjective Date patient seen: Oct 23, 2019 Time patient seen: 09:01 ROS Limited/Unobtainable: No Allergies: Coded Allergies: ERYTHROMYCIN BASE (Unverified Allergy, Intermediate, 07/14/19) Per patient not allergic to medications or food Subjective Patient in no distress. Resting comfortably Objective Last 24 Hour Vital Signs Date Time Temp Pulse Resp B/P (MAP) Pulse Ox O2 Delivery O2 Flow Rate FiO2 10/23/19 06:21 136/71 10/23/19 04:00 100.1 90 20 137/70 (92) 100 10/23/19 00:22 98 Nasal Cannula 2.0 28 10/23/19 00:00 100.3 89 20 119/73 (88) 96 10/22/19 22:25 121/64 10/22/19 21:08 96 131/72 10/22/19 21:08 101.1 10/22/19 21:00 Nasal Cannula 2.0 10/22/19 20:00 103.1 99 20 138/69 (92) 99 10/22/19 18:05 92 139/69 10/22/19 18:04 100.7 92 19 139/69 (92) 99 10/22/19 16:00 100.7 92 19 139/69 (92) 99 10/22/19 14:00 123/62 10/22/19 13:05 97 Nasal Cannula 2.0 28 10/22/19 12:00 100.3 83 20 123/62 (82) 99 10/22/19 09:40 Room Air 2.0 10/22/19 09:20 94 138/67 10/22/19 09:20 94 130/67 Intake and Output 10/22/19 10/23/19 19:00 07:00 Intake Total 310 ml 920 ml Output Total 800 ml Balance 310 ml 120 ml Intake Free Water 200 ml 100 ml IV Total 600 ml Tube Feeding 110 ml 220 ml Output Urine Total 800 ml # Voids 3 # Bowel Movements 3 2 Laboratory Tests 10/23/19 05:17: White Blood Count 9.6, Red Blood Count 2.76L, Hemoglobin 8.0L, Hematocrit 24.8L , Mean Corpuscular Volume 90, Mean Corpuscular Hemoglobin 29.1, Mean Corpuscular Hemoglobin Concent 32.5, Red Cell Distribution Width 14.9H, Platelet Count 345, Mean Platelet Volume 6.5, Neutrophils (%) (Auto) 82.6H, Lymphocytes (%) (Auto) 8.8L, Monocytes (%) (Auto) 5.8, Eosinophils (%) (Auto) 2.4, Basophils (%) (Auto) 0.4, Sodium Level 135L, Potassium Level 4.2, Chloride Level 104, Carbon Dioxide Level 20L, Anion Gap 11, Blood Urea Nitrogen 36H, Creatinine 2.8H, Estimat Glomerular Filtration Rate , Glucose Level 71L, Calcium Level 7.3L, Total Bilirubin 0.8, Aspartate Amino Transf (AST/SGOT) 34, Alanine Aminotransferase (ALT/SGPT) 15, Alkaline Phosphatase 142H, Total Protein 6.7, Albumin 1.7L, Globulin 5.0, Albumin/Globulin Ratio 0.3L, Amylase Level 133H, Lipase 886H, Random Vancomycin Level 19.7 Height (Feet): 5 Height (Inches): 1.00 Weight (Pounds): 221 General Appearance: no apparent distress, alert EENT: normal ENT inspection Neck: normal alignment, supple Cardiovascular: normal rate, regular rhythm Respiratory/Chest: normal breath sounds Abdomen: non tender, soft Edema: no edema noted Arm (L), no edema noted Arm (R), no edema noted Leg (L), no edema noted Leg (R), no edema noted Pedal (L), no edema noted Pedal (R), no edema noted Generalized Cody Hoyos MD Oct 23, 2019 09:02
[2019-10-23] MEDS: Meropenem 500 MG in NS 55 ML IVPB SCH (10:15)
--- NOTE | 2019-10-23 12:50 | GI Progress Note ---
Assessment/Plan Problems: (1) Anemia ICD Codes: D64.9 - Anemia, unspecified SNOMED: 978677499 (2) Ascites ICD Codes: R18.8 - Other ascites SNOMED: 021830603 (3) Cirrhosis ICD Codes: K74.60 - Unspecified cirrhosis of liver SNOMED: 28077224 (4) Dehydration ICD Codes: E86.0 - Dehydration SNOMED: 95106258 Status: unchanged Status Narrative Discussed with Dr. Bosch. Assessment/Plan 1. Chronic kidney disease. 2. Hypertension. 3. CHF. 4. Dysphagia with a G-tube. 5. History of sepsis. 6. Anemia. 7. Hepatitis C. 8. Pneumonia. 9. cirrhosis. 10. gallstones 11. ascites us reviewed s/p paracentesis>>> No SBP abx GTF will resume today abx anemia work up GI procedures on hold for now repeat CT reviewed MRCP reviewed repeat lipase, amylase d/w surg, plan percutaneous cholecystostomy tube placement. The patient was seen and examined at bedside and all new and available data was reviewed in the patients chart. I agree with the above findings, impression and plan. (Patient seen earlier today. Signature stamp does not reflect patient encounter time.). - David Bosch MD Subjective Gastrointestinal/Abdominal: Reports: no symptoms Objective Last 24 Hour Vital Signs Date Time Temp Pulse Resp B/P (MAP) Pulse Ox O2 Delivery O2 Flow Rate FiO2 10/23/19 09:00 Nasal Cannula 2.0 10/23/19 08:00 100.6 97 19 135/59 (84) 99 10/23/19 06:21 136/71 10/23/19 04:00 100.1 90 20 137/70 (92) 100 10/23/19 00:22 98 Nasal Cannula 2.0 28 10/23/19 00:00 100.3 89 20 119/73 (88) 96 10/22/19 22:25 121/64 10/22/19 21:08 96 131/72 10/22/19 21:08 101.1 10/22/19 21:00 Nasal Cannula 2.0 10/22/19 20:00 103.1 99 20 138/69 (92) 99 10/22/19 18:05 92 139/69 10/22/19 18:04 100.7 92 19 139/69 (92) 99 12/4/19 16:00 100.7 92 19 139/69 (92) 99 10/22/19 14:00 123/62 10/22/19 13:05 97 Nasal Cannula 2.0 28 Intake and Output 10/22/19 10/23/19 19:00 07:00 Intake Total 310 ml 920 ml Output Total 800 ml Balance 310 ml 120 ml Intake Free Water 200 ml 100 ml IV Total 600 ml Tube Feeding 110 ml 220 ml Output Urine Total 800 ml # Voids 3 # Bowel Movements 3 2 Laboratory Tests Test 10/23/19 05:17 White Blood Count 9.6 K/UL (4.8-10.8) Red Blood Count 2.76 M/UL (4.20-5.40) L Hemoglobin 8.0 G/DL (12.0-16.0) L Hematocrit 24.8 % (37.0-47.0) L Mean Corpuscular Volume 90 FL (80-99) Mean Corpuscular Hemoglobin 29.1 PG (27.0-31.0) Mean Corpuscular Hemoglobin Concent 32.5 G/DL (32.0-36.0) Red Cell Distribution Width 14.9 % (11.6-14.8) H Platelet Count 345 K/UL (150-450) Mean Platelet Volume 6.5 FL (6.5-10.1) Neutrophils (%) (Auto) 82.6 % (45.0-75.0) H Lymphocytes (%) (Auto) 8.8 % (20.0-45.0) L Monocytes (%) (Auto) 5.8 % (1.0-10.0) Eosinophils (%) (Auto) 2.4 % (0.0-3.0) Basophils (%) (Auto) 0.4 % (0.0-2.0) Sodium Level 135 MMOL/L (136-145) L Potassium Level 4.2 MMOL/L (3.5-5.1) Chloride Level 104 MMOL/L (98-107) Carbon Dioxide Level 20 MMOL/L (21-32) L Anion Gap 11 mmol/L (5-15) Blood Urea Nitrogen 36 mg/dL (7-18) H Creatinine 2.8 MG/DL (0.55-1.30) H Estimat Glomerular Filtration Rate mL/min (>60) Glucose Level 71 MG/DL (74-106) L Calcium Level 7.3 MG/DL (8.5-10.1) L Total Bilirubin 0.8 MG/DL (0.2-1.0) Aspartate Amino Transf (AST/SGOT) 34 U/L (15-37) Alanine Aminotransferase (ALT/SGPT) 15 U/L (12-78) Alkaline Phosphatase 142 U/L (46-116) H Total Protein 6.7 G/DL (6.4-8.2) Albumin 1.7 G/DL (3.4-5.0) L Globulin 5.0 g/dL Albumin/Globulin Ratio 0.3 (1.0-2.7) L Amylase Level 133 U/L (25-115) H Lipase 886 U/L (73-393) H Random Vancomycin Level 19.7 ug/mL Height (Feet): 5 Height (Inches): 1.00 Weight (Pounds): 221 General Appearance: no apparent distress, alert Cardiovascular: normal rate Respiratory/Chest: normal breath sounds, no respiratory distress Abdominal Exam: normal bowel sounds, non tender, soft Extremities: normal range of motion, non-tender Dariana Thompson NP Oct 23, 2019 12:50
--- NOTE | 2019-10-23 13:09 | Pre-Procedure Note/Attestation ---
Pre-Procedure Note/Attestation Complete Prior to Procedure Planned Procedure: not applicable Procedure Narrative: cholecystostomy, possible paracentesis Indications for Procedure Pre-Operative Diagnosis: acute cholecystitis, ascites Attestation I attest that I discussed the nature of the procedure; its benefits; risks and complications; and alternatives (and the risks and benefits of such alternatives ), prior to the procedure, with the patient (or the patient's legal personnel representative). I attest that, if there was a reasonable possibility of needing a blood transfusion, the patient (or the patient's legal personnel representative) was given the [facility] standardized written summary, pursuant to the [place] Blood Safety Act ([place] Health and Safety Code # 1645, as amended). I attest that I re-evaluated the patient just prior to the surgery and that there has been no change in the patient's H&P, except as documented below: Discused by phone with pt's. daughter at 1305 and also on 10/21/2019 Garry Barillas MD Oct 23, 2019 13:09
--- NOTE | 2019-10-23 13:15 | NUR ---
NURSE NOTES: Patient down to Radiology for procedure as ordered.
--- NOTE | 2019-10-23 14:52 | Surgery Progress Note ---
Surgery Progress Note Subjective Additional Comments leukocytosis resolved but still with shift lft's okay c/o abd pain pending thora and juan tube Objective Last 24 Hour Vital Signs Date Time Temp Pulse Resp B/P (MAP) Pulse Ox O2 Delivery O2 Flow Rate FiO2 10/23/19 14:36 94 18 3.0 10/23/19 12:00 99.4 90 20 130/62 (84) 100 10/23/19 09:00 Nasal Cannula 2.0 10/23/19 08:09 98 Nasal Cannula 2.0 28 10/23/19 08:00 100.6 97 19 135/59 (84) 99 10/23/19 06:21 136/71 10/23/19 04:00 100.1 90 20 137/70 (92) 100 10/23/19 00:22 98 Nasal Cannula 2.0 28 10/23/19 00:00 100.3 89 20 119/73 (88) 96 10/22/19 22:25 121/64 10/22/19 21:08 96 131/72 10/22/19 21:08 101.1 10/22/19 21:00 Nasal Cannula 2.0 10/22/19 20:00 103.1 99 20 138/69 (92) 99 10/22/19 18:05 92 139/69 10/22/19 18:04 100.7 92 19 139/69 (92) 99 10/22/19 16:00 100.7 92 19 139/69 (92) 99 I&O Intake and Output 10/22/19 10/23/19 18:59 06:59 Intake Total 255 ml 975 ml Output Total 800 ml Balance 255 ml 175 ml Intake Free Water 200 ml 100 ml IV Total 600 ml Tube Feeding 55 ml 275 ml Output Urine Total 800 ml # Voids 3 # Bowel Movements 3 2 Dressing: other Wound: other Drains: other Cardiovascular: RSR Respiratory: decreased breath sounds Abdomen: soft, tenderness, present bowel sounds Extremities: no tenderness, no cyanosis Laboratory Tests Test 10/23/19 05:17 White Blood Count 9.6 K/UL (4.8-10.8) Red Blood Count 2.76 M/UL (4.20-5.40) L Hemoglobin 8.0 G/DL (12.0-16.0) L Hematocrit 24.8 % (37.0-47.0) L Mean Corpuscular Volume 90 FL (80-99) Mean Corpuscular Hemoglobin 29.1 PG (27.0-31.0) Mean Corpuscular Hemoglobin Concent 32.5 G/DL (32.0-36.0) Red Cell Distribution Width 14.9 % (11.6-14.8) H Platelet Count 345 K/UL (150-450) Mean Platelet Volume 6.5 FL (6.5-10.1) Neutrophils (%) (Auto) 82.6 % (45.0-75.0) H Lymphocytes (%) (Auto) 8.8 % (20.0-45.0) L Monocytes (%) (Auto) 5.8 % (1.0-10.0) Eosinophils (%) (Auto) 2.4 % (0.0-3.0) Basophils (%) (Auto) 0.4 % (0.0-2.0) Sodium Level 135 MMOL/L (136-145) L Potassium Level 4.2 MMOL/L (3.5-5.1) Chloride Level 104 MMOL/L (98-107) Carbon Dioxide Level 20 MMOL/L (21-32) L Anion Gap 11 mmol/L (5-15) Blood Urea Nitrogen 36 mg/dL (7-18) H Creatinine 2.8 MG/DL (0.55-1.30) H Estimat Glomerular Filtration Rate mL/min (>60) Glucose Level 71 MG/DL (74-106) L Calcium Level 7.3 MG/DL (8.5-10.1) L Total Bilirubin 0.8 MG/DL (0.2-1.0) Aspartate Amino Transf (AST/SGOT) 34 U/L (15-37) Alanine Aminotransferase (ALT/SGPT) 15 U/L (12-78) Alkaline Phosphatase 142 U/L (46-116) H Total Protein 6.7 G/DL (6.4-8.2) Albumin 1.7 G/DL (3.4-5.0) L Globulin 5.0 g/dL Albumin/Globulin Ratio 0.3 (1.0-2.7) L Amylase Level 133 U/L (25-115) H Lipase 886 U/L (73-393) H Random Vancomycin Level 19.7 ug/mL Plan Problems: (1) Lactic acid acidosis Assessment & Plan: Patient noted to have leukocytosis, fevers, abdominal wall cellulitis, lactic acidosis. Abnormal labs. Etiology and work-up continuing currently with microbiology pending and on IV antibiotics Leukocytosis Elevated LFTs. Imaging noted. Unlikely cholecystitis but potential passed stone. Will discuss with GI for considerations of MRCP versus ERCP versus monitoring Local care being provided. Imaging noted Pt presented on admission with partially opened DTPI Sacrum.Base of wound extends from sacrum to R and L buttocks and is maroon with #3 small openings , each with slough at mid sacral area. Pt grimaced when affected area minimally palpated. Non-blanching erythema noted to R and L ischial regions. Moisture Intertrigo with surrounding erythema and denuded skin noted to R and L breasts. Mild odor noted each skin folds of breasts.Small amt sanguineous exudate noted from L breast. Mons pubis,labia majora, and medial aspects of both upper thighs erythematous and denuded. R ad L heels are firm and blanchable. Tx.Plan: Warren Liquid Skin Repair to R and L breasts(x1 application) applied to folds of each breasts. Apply Moisture Barrier paste to perineum with each incontinence care. Apply Moisture Barrier Paste to Sacrum.Cover with Optifoam drsgs. Change every 3 days and prn. APM/SIM Mattress overlay. Reposition at least every 2 hours or as tolerated. Off-load heels with pillow. (2) Sepsis Assessment & Plan: 73-year-old female with sepsis, lactic acidosis, renal insufficiency, cellulitis, leukocytosis. Febrile, hemodynamically stable, exam as above Coordinated with radiology for urgent temporary even as catheter insertion. Placed today and will discuss with nephrology for dialysis Antibiotics as per infectious disease Trend labs IV fluid resuscitation Dense consolidation in the posterior right lower lobe, likely pneumonia Liquid stool in the proximal colon, could indicate diarrheal illness Trace free intraperitoneal fluid Slight hepatic atrophy and surface nodularity raising possibility of cirrhotic change Small lesser sac varices and splenomegaly raises possibility of portal hypertension Pericardial effusion, also evident previously abd wall cellulitis superficial and lumps likely prior injection sites and not infected. cholelithiasis unlikely etiology lft's trending down cameron/lip pancreatitis chemical CT noted cont abx can consider cholecystostomy tube if note improving HIDA positive MRCP Findings: There is mild ascites. There is nodularity of the liver surface. Gallbladder is distended. There is thickening of the gallbladder wall and multiple gallstones. There is no evidence of intrahepatic biliary ductal dilatation. CBD is normal in caliber measuring about 4 mm. There are a few cysts within both kidneys. There is a small right pleural effusion trace left pleural effusion. The spleen is prominent. IMPRESSION: No biliary ductal dilatation or evidence of choledocholithiasis Cholelithiasis. Cirrhosis of the liver with signs of portal hypertension including ascites and splenomegaly. Small bilateral renal cysts Small right pleural effusion. Trace left pleural effusion. We will follow with recommendations cholecystostomy tube placement Thank you for allowing me to participate in patient care Kirk Em Oct 23, 2019 14:52
--- NOTE | 2019-10-23 14:59 | Brief Operative Note ---
Immediate Post Operative Note Operative Note Pre-op Diagnosis: acute cholecystitis, ascites Procedure: paracentesis, cholecystostomy Post-op Diagnosis: same as pre-op Surgeon: Coco Caraballo Anesthesia: local Specimen: yes - GB contents sent to lab Complications: none Condition: stable Fluids: none Implant(s) used?: No Garry Caraballo MD Oct 23, 2019 14:59
--- NOTE | 2019-10-23 15:33 | Infectious Diseases Prog Note ---
Assessment/Plan Assessment/Plan IMPRESSION: 1. E, coli sepsis 2. pneumonia in right lower lobe. 3. Acute renal failure. 4. Chronic kidney disease. 5. Hyperkalemia, corrected 6. Hypernatremia, corrected 7. Hypoxemia. 8. Anemia. 9. Thrombocytopenia. 10. Hypothyroidism. 11. Recent MRSA sepsis. 12. Parkinson disease. 13. Dementia. 14. Cirrhosis 15. Portal hypertension 16. Cholelithiasis, Cholecystitis 17. s/p cholecystostomy RECOMMENDATION: continue Meropenem Will f/u cultures Subjective ROS Limited/Unobtainable: Yes Constitutional: Reports: fever, other - now feels cold Gastrointestinal/Abdominal: Reports: other Allergies: Coded Allergies: ERYTHROMYCIN BASE (Unverified Allergy, Intermediate, 07/14/19) Per patient not allergic to medications or food Objective Vital Signs Last 24 Hour Vital Signs Date Time Temp Pulse Resp B/P (MAP) Pulse Ox O2 Delivery O2 Flow Rate FiO2 10/23/19 15:00 98 18 134/67 (89) 100 10/23/19 14:55 93 18 131/69 (89) 100 10/23/19 14:50 94 18 129/65 (86) 100 10/23/19 14:45 94 18 122/70 (87) 100 10/23/19 14:36 94 18 3.0 10/23/19 12:00 99.4 90 20 130/62 (84) 100 10/23/19 09:00 Nasal Cannula 2.0 10/23/19 08:09 98 Nasal Cannula 2.0 28 10/23/19 08:00 100.6 97 19 135/59 (84) 99 10/23/19 06:21 136/71 10/23/19 04:00 100.1 90 20 137/70 (92) 100 10/23/19 00:22 98 Nasal Cannula 2.0 28 10/23/19 00:00 100.3 89 20 119/73 (88) 96 10/22/19 22:25 121/64 10/22/19 21:08 96 131/72 10/22/19 21:08 101.1 10/22/19 21:00 Nasal Cannula 2.0 10/22/19 20:00 103.1 99 20 138/69 (92) 99 10/22/19 18:05 92 139/69 10/22/19 18:04 100.7 92 19 139/69 (92) 99 10/22/19 16:00 100.7 92 19 139/69 (92) 99 Height (Feet): 5 Height (Inches): 1.00 Weight (Pounds): 221 HEENT: mucous membranes moist Respiratory/Chest: rhonchi - bilaterally, other Cardiovascular: normal rate Abdomen: soft, non tender, other - RUQ drain, GT feeding Extremities: no edema Neurologic/Psychiatric: alert, responsive, disoriented Laboratory Tests Test 10/23/19 05:17 White Blood Count 9.6 K/UL (4.8-10.8) Red Blood Count 2.76 M/UL (4.20-5.40) L Hemoglobin 8.0 G/DL (12.0-16.0) L Hematocrit 24.8 % (37.0-47.0) L Mean Corpuscular Volume 90 FL (80-99) Mean Corpuscular Hemoglobin 29.1 PG (27.0-31.0) Mean Corpuscular Hemoglobin Concent 32.5 G/DL (32.0-36.0) Red Cell Distribution Width 14.9 % (11.6-14.8) H Platelet Count 345 K/UL (150-450) Mean Platelet Volume 6.5 FL (6.5-10.1) Neutrophils (%) (Auto) 82.6 % (45.0-75.0) H Lymphocytes (%) (Auto) 8.8 % (20.0-45.0) L Monocytes (%) (Auto) 5.8 % (1.0-10.0) Eosinophils (%) (Auto) 2.4 % (0.0-3.0) Basophils (%) (Auto) 0.4 % (0.0-2.0) Sodium Level 135 MMOL/L (136-145) L Potassium Level 4.2 MMOL/L (3.5-5.1) Chloride Level 104 MMOL/L (98-107) Carbon Dioxide Level 20 MMOL/L (21-32) L Anion Gap 11 mmol/L (5-15) Blood Urea Nitrogen 36 mg/dL (7-18) H Creatinine 2.8 MG/DL (0.55-1.30) H Estimat Glomerular Filtration Rate mL/min (>60) Glucose Level 71 MG/DL (74-106) L Calcium Level 7.3 MG/DL (8.5-10.1) L Total Bilirubin 0.8 MG/DL (0.2-1.0) Aspartate Amino Transf (AST/SGOT) 34 U/L (15-37) Alanine Aminotransferase (ALT/SGPT) 15 U/L (12-78) Alkaline Phosphatase 142 U/L (46-116) H Total Protein 6.7 G/DL (6.4-8.2) Albumin 1.7 G/DL (3.4-5.0) L Globulin 5.0 g/dL Albumin/Globulin Ratio 0.3 (1.0-2.7) L Amylase Level 133 U/L (25-115) H Lipase 886 U/L (73-393) H Random Vancomycin Level 19.7 ug/mL Current Medications Medications (Trade) Dose Ordered Sig/Jonathan Route PRN Reason Start Time Stop Time Status Last Admin Dose Admin Acetaminophen (Tylenol) 650 mg Q4H PRN GT Mild Pain/Temp > 100.5 10/20/19 00:30 11/06/19 20:29 10/22/19 20:01 Amlodipine Besylate (Norvasc) 5 mg BID GT 10/20/19 09:00 11/13/19 17:59 10/22/19 18:05 Chlorhexidine Gluconate (Meredith-Hex 2%) 1 applic DAILY@2000 TOPIC 10/20/19 20:00 11/09/19 19:59 10/22/19 19:58 Dextrose/ Electrolytes 1,000 ml @ 50 mls/hr Q20H IV 10/20/19 16:00 11/19/19 15:59 10/23/19 04:40 Diphenhydramine HCl (Benadryl) 25 mg Q8H PRN GT Itching 10/20/19 00:30 11/14/19 08:29 Hydralazine HCl (Apresoline) 100 mg Q8HR GT 10/20/19 06:00 11/06/19 21:59 10/23/19 06:21 Lansoprazole (Prevacid) 30 mg DAILY GT 10/20/19 09:00 11/07/19 08:59 10/22/19 09:20 Levothyroxine Sodium (Synthroid) 125 mcg ACBREAKFAST GT 10/20/19 06:30 11/07/19 06:29 10/23/19 06:21 Lidocaine HCl (Xylocaine 1% 30ml) 30 ml ONCE PRN INJ PLACEMENT CATH 10/23/19 08:15 10/24/19 23:59 Loperamide HCl (Imodium) 2 mg Q12H PRN GT Diarrhea 10/20/19 08:30 11/18/19 08:29 Meropenem 500 mg/ Sodium Chloride 55 ml @ 110 mls/hr Q24H IVPB 10/22/19 09:00 10/27/19 08:59 10/23/19 10:15 Metoclopramide HCl (Reglan) 5 mg Q6H PRN IVP Nausea & Vomiting 10/20/19 04:15 11/16/19 10:14 Metoprolol Tartrate (Lopressor) 50 mg Q12HR GT 10/22/19 21:00 11/15/19 20:59 10/22/19 21:08 Vancomycin HCl (Vanco rx to dose) 1 ea DAILY PRN MISC Per rx protocol 10/22/19 11:00 11/21/19 10:59 Vancomycin/Sodium Chloride 275 ml @ 137.5 mls/ hr ONCE IVPB 10/23/19 18:00 10/23/19 21:00 Ruperto Freedman MD Oct 23, 2019 15:33
--- NOTE | 2019-10-23 16:01 | NUR ---
NURSE NOTES: Patient has drainage catheter to the right abdominal area with a light serous sanguineous drainage noted in the collection bag will monitor vitals as ordered..patient is alert.
[2019-10-23] MEDS ORDERED: Vancomycin 1.5gm/NS Premix IVPB SCH (18:00)
[2019-10-23] MEDS: Acetaminophen 650mg/20.3ml GT PRN (18:20)
--- NOTE | 2019-10-23 18:20 | NUR ---
NURSE NOTE Patient temperature oral 101.5,tylenol given as ordered will monitor.
--- NOTE | 2019-10-23 19:58 | NUR ---
HAND-OFF: Report given to Becky NUNEZ.
--- NOTE | 2019-10-23 20:00 | NUR ---
NURSE NOTES: RECEIVED PT FROM ENRIQUE LEMUS. PT IS AWAKE, AAOX3, ON NC 2L, NO ACUTE DISTRESS NOTED. G-TUBE FEEDING IS INTACT AND PATENT, NO RESIDUALS, RUNNING VITAL AF 1.2 AT 55ML. CHOLECYSTOMY DRAIN IS IN PLACE, DRAINING WELL, DRESSING INTACT. RIGHT PATTI RIGHT INTERNAL JUGULAR IS INTACT AND PATENT. BED IS LOCKED AND LOW, BED ALARMS ACTIVE, CALL LIGHT IS WITHIN REACH. WILL CONTINUE TO MONITOR.
[2019-10-23] MEDS: Dyna-Hex 2% Top Sol 2oz TOPIC SCH (21:12)
[2019-10-24] VITALS: BP 117/73
[2019-10-24 04:00] VITALS: BP 130/70
--- NOTE | 2019-10-24 04:45 | Progress Note ---
DATE: 10/16/2019 CARDIOLOGY PROGRESS NOTE Late entry for 10/16/2019 SUBJECTIVE: The patient was seen and evaluated. Case was discussed with the primary care physician and daughter was present at bedside. The patient continues to have abdominal pain. She is requiring morphine around the clock. She did have a paracentesis with an improvement noted subsequently. OBJECTIVE: VITAL SIGNS: Blood pressure 160/89, pulse 106, and respiratory rate 18. LUNGS: Diminished breath sounds. ABDOMEN: Soft, but diffusely tender. CARDIAC: Regular rhythm. Rapid rate. Normal S1 and S2. EXTREMITIES: With no edema. LABORATORY DATA: White count 13 and hemoglobin 9.1. Sodium 139, potassium 4, bicarbonate 27, BUN 31, and creatinine 3.1. IMPRESSION: 1. Status post Escherichia coli bacteremia with sepsis and shock. 2. Ascites, status post paracentesis. 3. End-stage renal disease, now on hemodialysis via right chest wall catheter. 4. Hypertensive heart disease with elevated blood pressure today. 5. Secondary sinus tachycardia. 6. Acute on chronic diastolic congestive heart failure. PLAN: 1. Antimicrobials. 2. Respiratory hygiene. 3. Titrate antihypertensives. 4. Hemodialysis with ultrafiltration for volume management. 5. Follow up fluid cultures and pain control. Delmar Toscano JOB#: [id number] CC:
[2019-10-24] MEDS: D5W w/KCl 20mEq 1,000 ML IV SCH ×2 (04:59)
--- NOTE | 2019-10-24 05:00 | Progress Note ---
DATE: 10/18/2019 CARDIOLOGY PROGRESS NOTE Late entry for 10/18/2019 SUBJECTIVE: G-tube feedings have been held. Residuals have been high. The patient had emesis last night. The patient continues to have abdominal pain. She is on morphine. She continues with hemodialysis and ultrafiltration three times a week. Heart rate is improved with tachycardia not noted since last evening. PHYSICAL EXAMINATION: VITAL SIGNS: Blood pressure 123/64, pulse 91, respiratory rate 18, and T max 99.5. LUNGS: Diminished breath sounds. CARDIAC: Regular rhythm and rate. Normal S1 and S2 with a fourth heart sound. ABDOMEN: Diffusely tender, but with no guarding or distention. There is no obvious ascites and there is no edema. Chest wall catheter intact. G-tube site intact. LABORATORY DATA: Sodium 137, potassium 5, bicarbonate 23, BUN 41, and creatinine 3.9. Alkaline phosphatase has decreased. Albumin 1.5. White count 18 and hemoglobin 8.8. IMPRESSION: 1. Worsening leukocytosis. 2. End-stage renal disease. 3. Acute on chronic diastolic congestive heart failure. 4. Secondary sinus tachycardia. 5. History of pericardial effusion. 6. Hypothyroidism, on replacement therapy. 7. Anemia due to chronic kidney disease. PLAN: 1. Check CT of the abdomen. 2. Antimicrobials. 3. Hemodialysis with ultrafiltration. 4. Titrating anti-failure and antihypertensive regimen based on clinical parameters. 5. Symptom-guided pain control. Lance Rivas M.D. DR: BRAVO JOB#: [id number] CC:
--- NOTE | 2019-10-24 05:00 | Progress Note ---
DATE: 10/17/2019 CARDIOLOGY PROGRESS NOTE Late entry for 10/17/2019. SUBJECTIVE: Abdominal pain persists. Continues to have white blood cell count elevation. Status post paracentesis. Fluid cultures pending. On hemodialysis and ultrafiltration three times a week now via right chest wall catheter. OBJECTIVE: VITAL SIGNS: Blood pressure 135/75, pulse 101, respiratory rate 20, and afebrile. LUNGS: Diminished breath sounds. CARDIAC: Regular rhythm. Rapid rate. Normal S1 and S2 with a fourth heart sound. ABDOMEN: Soft. Mildly tender diffusely. EXTREMITIES: No edema. CHEST: Right chest wall catheter site clean and dry. LABORATORY DATA: White count 15.9 and hemoglobin 9.6. Sodium 139, potassium 3.8, bicarb 26, BUN 35, and creatinine 3.5. Liver function tests remained slightly elevated. Albumin is 1.6. IMPRESSION: 1. Sepsis. 2. Abdominal pain. 3. Ascites, status post paracentesis. 4. End-stage renal disease, now on hemodialysis with ultrafiltration. 5. Acute on chronic diastolic congestive heart failure. 6. Secondary sinus tachycardia due to infection and increased catecholamine state. 7. Hypertensive heart disease. 8. History of pericardial effusion. 9. Hypothyroidism. PLAN: 1. Followup cultures. 2. Antimicrobials. 3. Fluid removal with ultrafiltration. 4. Titrate cardiovascular regimen. 5. Would not increase beta-blockers with tachycardia due to acute infection. Lance Rivas M.D. DR: KALE JOB#: [id number] CC:
--- NOTE | 2019-10-24 05:30 | Progress Note ---
DATE: 10/20/2019 CARDIOLOGY PROGRESS NOTE Late entry for October 20, 2019. SUBJECTIVE: CT scan was noted. Abdominal pain slightly better. She is on morphine, however, around the clock. OBJECTIVE: VITAL SIGNS: Blood pressure 132/70, pulse 90, respiratory rate 21, and afebrile. LUNGS: Diminished breath sounds. CARDIAC: Regular rhythm and rate. Normal S1 and S2 with no rubs. CHEST: Chest wall with dialysis catheter intact. ABDOMEN: Abdominal G-tube site clean and dry. Mild distention and tenderness. EXTREMITIES: No edema. IMPRESSION AND PLAN: Clinically unchanged. Still with hepatobiliary sepsis and multiple comorbidities. The patient is high risk for cholecystectomy. Consideration ongoing for cholecystostomy. Maintain current cardiovascular regimen and continue hemodialysis with ultrafiltration for volume management. Nutrition by feeding tube when pancreatic status permits. Lance Rivas M.D. DR: KALE JOB#: [id number] CC:
--- NOTE | 2019-10-24 05:30 | Progress Note ---
DATE: 10/23/2019 SUBJECTIVE: The patient is status post placement of cholecystostomy tube. She is requiring morphine for pain control. There is no respiratory compromise. The patient is spiking temperatures up to 103.1 last night. OBJECTIVE: VITAL SIGNS: Blood pressure 134/71, pulse 99, respirations 18, and temperature 101.5 now. LUNGS: Diminished breath sounds. Chest wall catheter site clean and dry. HEART: Regular rhythm and rate. Normal S1 and S2 with a fourth heart sound. No rub. ABDOMEN: Distended and tender. G-tube site intact. EXTREMITIES: There is trace edema. LABORATORY DATA: Sodium 135, potassium 4.2, bicarbonate 20, BUN 36, and creatinine 2.8. Albumin 1.7. Lipase 886. Magnesium yesterday was 1.6. White count is 9.6 and hemoglobin 8. Chest x-ray reviewed. IMPRESSION: 1. Escherichia coli sepsis. 2. Healthcare-acquired pneumonia. 3. Cholecystitis. 4. Status post cholecystostomy. 5. End-stage renal disease, now on hemodialysis. 6. Severe protein-calorie malnutrition with G-tube. 7. Hypothyroidism, on replacement therapy. 8. Hypertensive heart disease. 9. Acute on chronic diastolic congestive heart failure. PLAN: 1. Antimicrobials. 2. Cholecystostomy tube management. 3. Pain control. 4. Hemodialysis with ultrafiltration for volume management. 5. Maintain beta-boris therapy. 6. We will follow. Lance Rivas M.D. DR: BRAVO JOB#: [id number] CC:
--- NOTE | 2019-10-24 05:30 | Progress Note ---
DATE: 10/19/2019 CARDIOLOGY PROGRESS NOTE LATE ENTRY SUBJECTIVE: The patient continues to have abdominal pain. Elevated pancreatic enzymes now are noted. CAT scan reveals a distended gallbladder. Leukocytosis remains well on antimicrobials. OBJECTIVE: VITAL SIGNS: Blood pressure 129/66, pulse 88, respiratory rate 16, and afebrile. LUNGS: Diminished breath sounds. CARDIAC: Regular rhythm and rate. Normal S1 and S2. There is no rub. CHEST WALL: Right chest wall catheter site clean and dry. ABDOMEN: Mildly tender diffusely. EXTREMITIES: Without edema. LABORATORY DATA: White count 17.4 and hemoglobin 10.9 following transfusion. Sodium 131, potassium 3.9, bicarbonate 20, albumin 1.8, and lipase is elevated at 1182. IMPRESSION: 1. Biliary pancreatitis. 2. Distended gallbladder. 3. Severe protein-calorie malnutrition. 4. End-stage renal disease, on hemodialysis. 5. Dysphagia with G-tube. 6. Acute on chronic diastolic congestive heart failure. 7. Hypertensive heart disease. 8. History of pericardial effusion. 9. Hypothyroidism, on replacement therapy. PLAN: 1. Surgical followup. 2. Drainage of gallbladder to be addressed. 3. Hemodialysis with ultrafiltration. 4. Continue beta-boris and cardiovascular regimen. 5. Antimicrobials. 6. NPO. 7. Remains high risk. Lance Rivas M.D. DR: KRISTAN JOB#: [id number] CC:
[2019-10-24] MEDS: HydrALAZINE 50mg tab GT SCH ×3 (06:00→21:36)
[2019-10-24] MEDS: Levothyroxine 125mcg tab GT SCH (06:36)
[2019-10-24 07:19] LABS: ANION GAP 12 mmol/L (5-15); BLOOD UREA NITROGEN 40 mg/dL (7-18); CALCIUM 7.7 MG/DL (8.5-10.1); CARBON DIOXIDE 16 MMOL/L (21-32); CHLORIDE 108 MMOL/L (98-107); CREATININE 2.5 MG/DL (0.55-1.30); HEMATOCRIT 20.7 % (37.0-47.0); MEAN CORPUSCULAR VOLUME 90 FL (80-99); PLATELET COUNT 272 K/UL (150-450); RED BLOOD COUNT 2.32 M/UL (4.20-5.40); RED CELL DISTRIBUTION WIDTH 15.1 % (11.6-14.8); SODIUM 136 MMOL/L (136-145); WHITE BLOOD COUNT 7.1 K/UL (4.8-10.8)
[2019-10-24 07:43] LABS: AMYLASE 112 U/L (25-115)
--- NOTE | 2019-10-24 07:45 | NUR ---
NURSE NOTES: received report from Taryn,RN. patient in bed. alert. verbally responsive. no respiratory distress noted. no c/o pain at this time. GTF holding post administering levothyroxine. hob at all times. IV on right jugular running fluid. colecsystomy tube draining. bed in the lowest position and locked. call light within reach. alarm on. will continue to provide plan of care.
--- NOTE | 2019-10-24 07:47 | NUR ---
HAND-OFF: Report given to ENRIQUE Conley. Pt is in stable condition. Endorsed plan of care.
[2019-10-24 08:00] VITALS: BP 103/71
[2019-10-24 08:10] LABS: HEMOGLOBIN 6.9 G/DL (12.0-16.0)
--- NOTE | 2019-10-24 08:23 | Nephrology Progress Note ---
Assessment/Plan Status: unchanged Assessment/Plan: A/P (1) Anemia in CKD - Hgb 6.9 -recc blood trasnfusion (2) CKD (chronic kidney disease) stage 5, GFR less than 15 ml/min - continue to hold off HD as Cr 2.5 (3) Sepsis -cont rxx esbl sepsis (4) Ascites/ Cirrhosis Mgmt per GI cholecystostomy tube placed Subjective Date patient seen: Oct 24, 2019 Time patient seen: 08:19 ROS Limited/Unobtainable: No Allergies: Coded Allergies: ERYTHROMYCIN BASE (Unverified Allergy, Intermediate, 07/14/19) Per patient not allergic to medications or food Subjective Patient with no complaints Objective Last 24 Hour Vital Signs Date Time Temp Pulse Resp B/P (MAP) Pulse Ox O2 Delivery O2 Flow Rate FiO2 10/24/19 06:00 124/61 10/24/19 04:00 99.8 87 20 130/70 (90) 99 10/24/19 00:00 98.6 85 17 117/73 (88) 97 10/23/19 22:20 97 Nasal Cannula 2.0 28 10/23/19 22:00 117/73 10/23/19 21:12 95 123/63 10/23/19 21:00 Nasal Cannula 2.0 10/23/19 20:00 98.7 10/23/19 18:09 99 134/71 10/23/19 18:03 101.5 99 18 134/71 (92) 99 10/23/19 17:00 100.8 96 18 128/68 (88) 96 10/23/19 16:45 98.8 100 18 128/68 (88) 100 10/23/19 16:00 98.6 127/66 (86) 10/23/19 15:00 98 18 134/67 (89) 100 10/23/19 14:55 93 18 131/69 (89) 100 10/23/19 14:50 94 18 129/65 (86) 100 10/23/19 14:45 94 18 122/70 (87) 100 10/23/19 14:36 94 18 3.0 10/23/19 12:00 99.4 90 20 130/62 (84) 100 10/23/19 09:00 Nasal Cannula 2.0 10/23/19 09:00 97 135/59 10/23/19 09:00 97 135/59 Intake and Output 10/23/19 10/24/19 19:00 07:00 Intake Total 562 ml 450 ml Output Total 100 ml Balance 562 ml 350 ml Intake Free Water 100 ml IV Total 352 ml 450 ml Tube Feeding 110 ml Other 100 ml # Voids 3 3 # Bowel Movements 2 1 Laboratory Tests 10/24/19 06:12: White Blood Count 7.1, Red Blood Count 2.32L, Hemoglobin 6.9*L, Hematocrit 20.7L , Mean Corpuscular Volume 90, Mean Corpuscular Hemoglobin 29.6, Mean Corpuscular Hemoglobin Concent 33.0, Red Cell Distribution Width 15.1H, Platelet Count 272, Mean Platelet Volume 6.5, Neutrophils (%) (Auto) , Lymphocytes (%) (Auto) , Monocytes (%) (Auto) , Eosinophils (%) (Auto) , Basophils (%) (Auto) , Neutrophils % (Manual) [Pending], Lymphocytes % (Manual) [Pending], Platelet Estimate [Pending], Platelet Morphology [Pending], Prothrombin Time 11.1, Prothromb Time International Ratio 1.0, Activated Partial Thromboplast Time 32, Sodium Level 136, Potassium Level 5.0, Chloride Level 108H, Carbon Dioxide Level 16L, Anion Gap 12, Blood Urea Nitrogen 40H, Creatinine 2.5H, Estimat Glomerular Filtration Rate , Glucose Level 94, Calcium Level 7.7L, Magnesium Level 1.7L, Pro-B-Type Natriuretic Peptide 6429H, Amylase Level 112, Lipase 778H, Thyroid Stimulating Hormone (TSH) 53.568H Height (Feet): 5 Height (Inches): 1.00 Weight (Pounds): 207 General Appearance: no apparent distress EENT: normal ENT inspection Neck: normal alignment, supple Cardiovascular: normal rate, regular rhythm Respiratory/Chest: lungs clear, normal breath sounds Abdomen: non tender, soft Edema: 1+ Arm (L), 1+ Arm (R), 1+ Leg (L), 1+ Leg (R), 1+ Pedal (L), 1+ Pedal ( R), 1+ Generalized Cody Hoyos MD Oct 24, 2019 08:23
--- NOTE | 2019-10-24 08:39 | NUR ---
NURSE NOTES: patient Hgb 6.9 this morning. patient T99.9, RN notified Dr. Hendricks. give patient 1unit PRBS, give tylenol 1g first. order noted and carried out.
[2019-10-24] MEDS ORDERED: Acetaminophen 500mg (ES) tab ORAL PRN (08:45)
[2019-10-24] MEDS: Metoprolol Tartrate 50mg tab GT SCH ×2 (09:00→21:36)
--- NOTE | 2019-10-24 09:00 | NUR ---
NURSE NOTES: RN received telephone consent from Sharron Holm/daughter. ENRIQUE Feliz witnessed as second RN verify.
--- NOTE | 2019-10-24 09:02 | General Progress Note ---
Assessment/Plan Problem List: (1) Sepsis ICD Codes: A41.9 - Sepsis, unspecified organism SNOMED: 07842271 (2) Lactic acid acidosis ICD Codes: E87.2 - Acidosis SNOMED: 76296571 (3) Anemia ICD Codes: D64.9 - Anemia, unspecified SNOMED: 402933522 (4) Alkalosis, metabolic ICD Codes: E87.3 - Alkalosis, metabolic SNOMED: 5307546 (5) Acidosis ICD Codes: E87.2 - Acidosis SNOMED: 97652841 (6) UTI (urinary tract infection) ICD Codes: N39.0 - Urinary tract infection, site not specified SNOMED: 35744013 (7) Acute renal failure (ARF) ICD Codes: N17.9 - Acute kidney failure, unspecified SNOMED: 19364044 Status: unchanged Assessment/Plan: monitor output from cholecystostomy drain iv abx wound care HD per renal monitor bp- may need to resume bp meds monitor for bleeding transfuse as needed gi follow up trend wbc monitor lfts Subjective ROS Limited/Unobtainable: No Constitutional: Reports: malaise, weakness HEENT: Reports: no symptoms Cardiovascular: Reports: no symptoms Respiratory: Reports: no symptoms Gastrointestinal/Abdominal: Reports: abdominal pain Genitourinary: Reports: no symptoms Neurologic/Psychiatric: Reports: pre-existing deficit Endocrine: Reports: no symptoms Hematologic/Lymphatic: Reports: no symptoms Allergies: Coded Allergies: ERYTHROMYCIN BASE (Unverified Allergy, Intermediate, 07/14/19) Per patient not allergic to medications or food All Systems: reviewed and negative except above Subjective s/p GB drain. 100cc output. low h/h noted. no bleeding noted. Objective Last 24 Hour Vital Signs Date Time Temp Pulse Resp B/P (MAP) Pulse Ox O2 Delivery O2 Flow Rate FiO2 10/24/19 06:00 124/61 10/24/19 04:00 99.8 87 20 130/70 (90) 99 10/24/19 00:00 98.6 85 17 117/73 (88) 97 10/23/19 22:20 97 Nasal Cannula 2.0 28 10/23/19 22:00 117/73 10/23/19 21:12 95 123/63 10/23/19 21:00 Nasal Cannula 2.0 10/23/19 20:00 98.7 10/23/19 18:09 99 134/71 10/23/19 18:03 101.5 99 18 134/71 (92) 99 10/23/19 17:00 100.8 96 18 128/68 (88) 96 10/23/19 16:45 98.8 100 18 128/68 (88) 100 10/23/19 16:00 98.6 127/66 (86) 10/23/19 15:00 98 18 134/67 (89) 100 10/23/19 14:55 93 18 131/69 (89) 100 10/23/19 14:50 94 18 129/65 (86) 100 10/23/19 14:45 94 18 122/70 (87) 100 10/23/19 14:36 94 18 3.0 10/23/19 12:00 99.4 90 20 130/62 (84) 100 10/23/19 09:00 Nasal Cannula 2.0 10/23/19 09:00 97 135/59 10/23/19 09:00 97 135/59 Intake and Output 10/23/19 10/24/19 19:00 07:00 Intake Total 562 ml 450 ml Output Total 100 ml Balance 562 ml 350 ml Intake Free Water 100 ml IV Total 352 ml 450 ml Tube Feeding 110 ml Other 100 ml # Voids 3 3 # Bowel Movements 2 1 Laboratory Tests 10/24/19 06:12: White Blood Count 7.1, Red Blood Count 2.32L, Hemoglobin 6.9*L, Hematocrit 20.7L , Mean Corpuscular Volume 90, Mean Corpuscular Hemoglobin 29.6, Mean Corpuscular Hemoglobin Concent 33.0, Red Cell Distribution Width 15.1H, Platelet Count 272, Mean Platelet Volume 6.5, Neutrophils (%) (Auto) , Lymphocytes (%) (Auto) , Monocytes (%) (Auto) , Eosinophils (%) (Auto) , Basophils (%) (Auto) , Neutrophils % (Manual) [Pending], Lymphocytes % (Manual) [Pending], Platelet Estimate [Pending], Platelet Morphology [Pending], Prothrombin Time 11.1, Prothromb Time International Ratio 1.0, Activated Partial Thromboplast Time 32, Sodium Level 136, Potassium Level 5.0, Chloride Level 108H, Carbon Dioxide Level 16L, Anion Gap 12, Blood Urea Nitrogen 40H, Creatinine 2.5H, Estimat Glomerular Filtration Rate , Glucose Level 94, Calcium Level 7.7L, Magnesium Level 1.7L, Pro-B-Type Natriuretic Peptide 6429H, Amylase Level 112, Lipase 778H, Thyroid Stimulating Hormone (TSH) 53.568H Height (Feet): 5 Height (Inches): 1.00 Weight (Pounds): 207 Objective General Appearance: WD/WN, alert Neck: supple Cardiovascular: normal rate, regular rhythm Respiratory/Chest: chest wall non-tender, lungs clear, normal breath sounds Abdomen: normal bowel sounds, soft, no organomegaly, tender Edema: no edema noted Arm (L), no edema noted Arm (R), no edema noted Leg (L), no edema noted Leg (R), no edema noted Pedal (L), no edema noted Pedal (R), no edema noted Generalized Chema Hendricks MD Oct 24, 2019 09:02
--- NOTE | 2019-10-24 09:25 | General Progress Note ---
Assessment/Plan Status: unchanged Assessment/Plan: 1. Chronic kidney disease. 2. Hypertension. 3. CHF. 4. Dysphagia with a G-tube. 5. History of sepsis. 6. Anemia. 7. Hepatitis C. 8. Pneumonia. 9. cirrhosis. 10. gallstones 11. ascites s/p cholecystostomy tube placement, 100 cc over night hematuria over night pending one unit PRBC transfusion GTF running abx will fu Subjective ROS Limited/Unobtainable: No Allergies: Coded Allergies: ERYTHROMYCIN BASE (Unverified Allergy, Intermediate, 07/14/19) Per patient not allergic to medications or food Subjective diarrhea Objective Last 24 Hour Vital Signs Date Time Temp Pulse Resp B/P (MAP) Pulse Ox O2 Delivery O2 Flow Rate FiO2 10/24/19 09:00 99 103/71 10/24/19 09:00 99 103/71 10/24/19 08:00 99.9 99 20 103/71 (82) 98 10/24/19 06:00 124/61 10/24/19 04:00 99.8 87 20 130/70 (90) 99 10/24/19 00:00 98.6 85 17 117/73 (88) 97 10/23/19 22:20 97 Nasal Cannula 2.0 28 10/23/19 22:00 117/73 10/23/19 21:12 95 123/63 10/23/19 21:00 Nasal Cannula 2.0 10/23/19 20:00 98.7 10/23/19 18:09 99 134/71 10/23/19 18:03 101.5 99 18 134/71 (92) 99 10/23/19 17:00 100.8 96 18 128/68 (88) 96 10/23/19 16:45 98.8 100 18 128/68 (88) 100 10/23/19 16:00 98.6 127/66 (86) 10/23/19 15:00 98 18 134/67 (89) 100 10/23/19 14:55 93 18 131/69 (89) 100 10/23/19 14:50 94 18 129/65 (86) 100 10/23/19 14:45 94 18 122/70 (87) 100 10/23/19 14:36 94 18 3.0 10/23/19 12:00 99.4 90 20 130/62 (84) 100 Intake and Output 10/23/19 10/24/19 19:00 07:00 Intake Total 562 ml 450 ml Output Total 100 ml Balance 562 ml 350 ml Intake Free Water 100 ml IV Total 352 ml 450 ml Tube Feeding 110 ml Other 100 ml # Voids 3 3 # Bowel Movements 2 1 Laboratory Tests 10/24/19 06:12: White Blood Count 7.1, Red Blood Count 2.32L, Hemoglobin 6.9*L, Hematocrit 20.7L , Mean Corpuscular Volume 90, Mean Corpuscular Hemoglobin 29.6, Mean Corpuscular Hemoglobin Concent 33.0, Red Cell Distribution Width 15.1H, Platelet Count 272, Mean Platelet Volume 6.5, Neutrophils (%) (Auto) , Lymphocytes (%) (Auto) , Monocytes (%) (Auto) , Eosinophils (%) (Auto) , Basophils (%) (Auto) , Neutrophils % (Manual) [Pending], Lymphocytes % (Manual) [Pending], Platelet Estimate [Pending], Platelet Morphology [Pending], Prothrombin Time 11.1, Prothromb Time International Ratio 1.0, Activated Partial Thromboplast Time 32, Sodium Level 136, Potassium Level 5.0, Chloride Level 108H, Carbon Dioxide Level 16L, Anion Gap 12, Blood Urea Nitrogen 40H, Creatinine 2.5H, Estimat Glomerular Filtration Rate , Glucose Level 94, Calcium Level 7.7L, Magnesium Level 1.7L, Pro-B-Type Natriuretic Peptide 6429H, Amylase Level 112, Lipase 778H, Thyroid Stimulating Hormone (TSH) 53.568H Height (Feet): 5 Height (Inches): 1.00 Weight (Pounds): 207 General Appearance: no apparent distress EENT: normal ENT inspection Neck: supple Cardiovascular: normal rate Respiratory/Chest: decreased breath sounds Abdomen: non tender, soft Extremities: non-tender David Bosch MD Oct 24, 2019 09:25
[2019-10-24] MEDS: Meropenem 500 MG in NS 55 ML IVPB SCH (09:36)
--- NOTE | 2019-10-24 09:59 | Diagnostic Imaging Report ---
Indication: Evidence of cholecystitis demonstrated on prior imaging studies. Patient is not a candidate for surgery Technique: Prior imaging studies reviewed. Informed consent obtained prior to commencement of the procedure over the phone from the patient's daughter. Procedural timeout performed. Total sterile technique, including sterile gloves and hand hygiene, hat, mask, sterile gown, large sterile drape, and preparation with 2% chlorhexidine utilized. Local anesthesia with 1% lidocaine. Under real-time ultrasound guidance, a 7 [place] Richards-Gibbons catheter was passed into the bladder lumen via a transhepatic approach. The stiffener and dilator were removed, pigtail formed. Approximately 160 mL of a mixture of bile and pelvis was aspirated. A specimen was sent to the lab for microbial analysis. Follow-up imaging performed, demonstrating complete evacuation of the liquid contents of the gallbladder, with only residual stones and sludge present. The catheter was fixed to the skin and was placed to UreSil bag drainage. The patient tolerated the procedure well, without immediate complication. No fluoroscopy utilized Comparison: Reference made to 10/20/2019 hepatobiliary scan and MRI abdomen, 10/14/2019 sonogram Findings: Successful ultrasound-guided percutaneous cholecystostomy, resulting in evacuation of approximately 160 mL of a mixture of bile and pus Impression:
--- NOTE | 2019-10-24 10:04 | Diagnostic Imaging Report ---
Indications: Ascites; needs fluid removed prior to cholecystostomy Technique: Informed consent obtained prior to, commencement of the procedure from patient's daughter by phone. Procedural timeout performed. Ultrasound used to localize optimal puncture site. Sterile prepping and draping right upper quadrant. Local anesthesia with 1% lidocaine. Under real-time ultrasound guidance, puncture peritoneal space using paracentesis needle. Stylet removed. Catheter placed to vacuum bottle suction. Total 1.3 liters of fluid clear yellow aspirated. Follow scanning revealed residual fluid anterior to the liver at the anticipated cholecystostomy puncture site. The skin over this was anesthetized with 1% lidocaine, and this pocket was accessed using a Yueh needle. 300 mL of fluid were manually aspirated, resulting in complete clearance. Patient tolerated procedure well, without immediate complication. Findings: As above. Impression: Successful ultrasound-guided paracentesis in anticipation of percutaneous cholecystostomy, yielding 1.6 liters of fluid
--- NOTE | 2019-10-24 10:40 | NUR ---
NURSE NOTES: RN started transfusion I unit PRBC. VS T99.0, HR86, BP 122/69. no respiratory distress noted. alert. verbally responsive. no c/o pain at this time.
--- NOTE | 2019-10-24 10:55 | NUR ---
NURSE NOTES: VS T99.3, HR85, BP 118/67
[2019-10-24 12:00] VITALS: BP 119/66
--- NOTE | 2019-10-24 12:46 | Infectious Diseases Prog Note ---
Assessment/Plan Assessment/Plan IMPRESSION: 1. E, coli sepsis 2. pneumonia in right lower lobe. 3. Acute renal failure. 4. Chronic kidney disease. 5. Hyperkalemia, corrected 6. Hypernatremia, corrected 7. Hypoxemia. 8. Anemia. 9. Thrombocytopenia. 10. Hypothyroidism. 11. Recent MRSA sepsis. 12. Parkinson disease. 13. Dementia. 14. Cirrhosis 15. Portal hypertension 16. Cholelithiasis, Cholecystitis 17. s/p cholecystostomy RECOMMENDATION: continue Meropenem Discontinue Vancomycin Will f/u cultures Subjective ROS Limited/Unobtainable: Yes Constitutional: Reports: fever, other - Vzze=438.5 yesterday Allergies: Coded Allergies: ERYTHROMYCIN BASE (Unverified Allergy, Intermediate, 07/14/19) Per patient not allergic to medications or food Objective Vital Signs Last 24 Hour Vital Signs Date Time Temp Pulse Resp B/P (MAP) Pulse Ox O2 Delivery O2 Flow Rate FiO2 10/24/19 12:00 99.3 84 19 119/66 (83) 100 10/24/19 10:06 99.0 10/24/19 09:00 99 103/71 10/24/19 09:00 99 103/71 10/24/19 09:00 Nasal Cannula 2.0 10/24/19 08:00 99.9 99 20 103/71 (82) 98 10/24/19 06:00 124/61 10/24/19 04:00 99.8 87 20 130/70 (90) 99 10/24/19 00:00 98.6 85 17 117/73 (88) 97 10/23/19 22:20 97 Nasal Cannula 2.0 28 10/23/19 22:00 117/73 10/23/19 21:12 95 123/63 10/23/19 21:00 Nasal Cannula 2.0 10/23/19 20:00 98.7 10/23/19 18:09 99 134/71 10/23/19 18:03 101.5 99 18 134/71 (92) 99 10/23/19 17:00 100.8 96 18 128/68 (88) 96 10/23/19 16:45 98.8 100 18 128/68 (88) 100 10/23/19 16:00 98.6 127/66 (86) 10/23/19 15:00 98 18 134/67 (89) 100 10/23/19 14:55 93 18 131/69 (89) 100 10/23/19 14:50 94 18 129/65 (86) 100 10/23/19 14:45 94 18 122/70 (87) 100 10/23/19 14:36 94 18 3.0 Height (Feet): 5 Height (Inches): 1.00 Weight (Pounds): 207 General Appearance: no acute distress HEENT: mucous membranes moist Respiratory/Chest: lungs clear Cardiovascular: normal rate, other - RIJ HD line Abdomen: soft, non tender, other - RUQ drain, GT Extremities: no edema Neurologic/Psychiatric: other - letharic Microbiology Date/Time Source Procedure Growth Status 10/22/19 13:15 Blood Blood Culture - Preliminary NO GROWTH AFTER 24 HOURS Resulted 10/23/19 14:54 Gallbladder Fluid Gram Stain - Final Resulted 10/23/19 14:54 Gallbladder Fluid Body Fluid Culture - Preliminary NO GROWTH Resulted 10/23/19 14:54 Gallbladder Fluid Anaerobic Culture Pending Resulted Laboratory Tests Test 10/24/19 06:12 White Blood Count 7.1 K/UL (4.8-10.8) Red Blood Count 2.32 M/UL (4.20-5.40) L Hemoglobin 6.9 G/DL (12.0-16.0) *L Hematocrit 20.7 % (37.0-47.0) L Mean Corpuscular Volume 90 FL (80-99) Mean Corpuscular Hemoglobin 29.6 PG (27.0-31.0) Mean Corpuscular Hemoglobin Concent 33.0 G/DL (32.0-36.0) Red Cell Distribution Width 15.1 % (11.6-14.8) H Platelet Count 272 K/UL (150-450) Mean Platelet Volume 6.5 FL (6.5-10.1) Neutrophils (%) (Auto) % (45.0-75.0) Lymphocytes (%) (Auto) % (20.0-45.0) Monocytes (%) (Auto) % (1.0-10.0) Eosinophils (%) (Auto) % (0.0-3.0) Basophils (%) (Auto) % (0.0-2.0) Differential Total Cells Counted 100 Neutrophils % (Manual) 78 % (45-75) H Lymphocytes % (Manual) 9 % (20-45) L Monocytes % (Manual) 8 % (1-10) Eosinophils % (Manual) 4 % (0-3) H Basophils % (Manual) 1 % (0-2) Band Neutrophils 0 % (0-8) Platelet Estimate Adequate Platelet Morphology Normal Hypochromasia 3+ Prothrombin Time 11.1 SEC (9.30-11.50) Prothromb Time International Ratio 1.0 (0.9-1.1) Activated Partial Thromboplast Time 32 SEC (23-33) Sodium Level 136 MMOL/L (136-145) Potassium Level 5.0 MMOL/L (3.5-5.1) Chloride Level 108 MMOL/L (98-107) H Carbon Dioxide Level 16 MMOL/L (21-32) L Anion Gap 12 mmol/L (5-15) Blood Urea Nitrogen 40 mg/dL (7-18) H Creatinine 2.5 MG/DL (0.55-1.30) H Estimat Glomerular Filtration Rate mL/min (>60) Glucose Level 94 MG/DL (74-106) Calcium Level 7.7 MG/DL (8.5-10.1) L Magnesium Level 1.7 MG/DL (1.8-2.4) L Pro-B-Type Natriuretic Peptide 6429 pg/mL (0-125) H Amylase Level 112 U/L (25-115) Lipase 778 U/L (73-393) H Thyroid Stimulating Hormone (TSH) 53.568 uiU/mL (0.358-3.740) Current Medications Medications (Trade) Dose Ordered Sig/Jonathan Route PRN Reason Start Time Stop Time Status Last Admin Dose Admin Acetaminophen (Tylenol) 650 mg Q4H PRN GT Mild Pain/Temp > 100.5 10/20/19 00:30 11/06/19 20:29 10/23/19 18:20 Acetaminophen (Tylenol) 1,000 mg ONCE PRN ORAL prior to transfusion 10/24/19 08:45 10/24/19 18:00 10/24/19 09:36 Amlodipine Besylate (Norvasc) 5 mg BID GT 10/20/19 09:00 11/13/19 17:59 10/23/19 18:09 Chlorhexidine Gluconate (Meredith-Hex 2%) 1 applic DAILY@1999 TOPIC 10/20/19 20:00 11/09/19 19:59 10/23/19 21:12 Dextrose/ Electrolytes 1,000 ml @ 50 mls/hr Q20H IV 10/20/19 16:00 11/19/19 15:59 10/24/19 04:59 Diphenhydramine HCl (Benadryl) 25 mg Q8H PRN GT Itching 10/20/19 00:30 11/14/19 08:29 Hydralazine HCl (Apresoline) 100 mg Q8HR GT 10/20/19 06:00 11/06/19 21:59 10/23/19 06:21 Lansoprazole (Prevacid) 30 mg DAILY GT 10/20/19 09:00 11/07/19 08:59 10/24/19 09:36 Levothyroxine Sodium (Synthroid) 125 mcg ACBREAKFAST GT 10/20/19 06:30 11/07/19 06:29 10/24/19 06:36 Lidocaine HCl (Xylocaine 1% 30ml) 30 ml ONCE PRN INJ PLACEMENT CATH 10/23/19 08:15 10/24/19 23:59 Loperamide HCl (Imodium) 2 mg Q12H PRN GT Diarrhea 10/20/19 08:30 11/18/19 08:29 Meropenem 500 mg/ Sodium Chloride 55 ml @ 110 mls/hr Q24H IVPB 10/22/19 09:00 10/27/19 08:59 10/24/19 09:36 Metoclopramide HCl (Reglan) 5 mg Q6H PRN IVP Nausea & Vomiting 10/20/19 04:15 11/16/19 10:14 Metoprolol Tartrate (Lopressor) 50 mg Q12HR GT 10/22/19 21:00 11/15/19 20:59 10/23/19 21:12 Vancomycin HCl (Vanco rx to dose) 1 ea DAILY PRN MISC Per rx protocol 10/22/19 11:00 11/21/19 10:59 Ruperto Freedman MD Oct 24, 2019 12:46
--- NOTE | 2019-10-24 13:50 | NUR ---
NURSE NOTES: post transfusion VS T98.1, HR86, BP140/77. alert. oriented. verbally responsive. no c/o pain.
--- NOTE | 2019-10-24 14:01 | NUR ---
RD ASSESSMENT & RECOMMENDATIONS SEE CARE ACTIVITY FOR COMPLETE ASSESSMENT DAILY ESTIMATED NEEDS: Needs based on CKD V, Wound 57.7kg abw 25-30 kcals/kg 2447-5089 total kcals (Without HD:0.6-1) (With HD: 1.25-1.8) g protein/kg (Without HD: 35-58) (With HD: 72-104) g total protein Fluid per MD NUTRITION DIAGNOSIS: 1) Altered nutrition related lab values r/t JJ on CKD 4 as evidenced by elev creat (6.8 -> 3.0-> 2.5), elev BUN (119->40), elev K (5.3-> wnl). elev Na (158 -> wnl), s/p placement of Broderick cath, HD x1. 2) Swallowing difficulty r/t dysphagia as evidenced by GT dep, TF currently held for residuals, vomiting x 1, +diarrhea, abd pain. CURRENT TF: Vital @55ml x22 hrs ENTERAL NUTRITION RECOMMENDATIONS: rec TF change to Osmolite 1.5 goal of [id number] hrs to provide 946ml, 1419 kcal, 59g pro, 721ml free H2o Rec TF change to better accommodate pro needs w/ regards to CKD 5/ no HD and elev Lipase: -> Start Osmolite 1.5 @23ml/hr, advance as tolerated 10ml/hr q4-6 hrs to goal of 43ml/hr x22 hrs - TF at goal does not exceed prot needs, meets 98% est kcal needs. - Provides est 340ml less K per day - Lower in fat % than vital or Nepro. Monitor lytes, lipase, and renal trend. ADDITIONAL RECOMMENDATIONS: 1) Calibrated bedscale wt for accurate CBW Bed scale reads 216.7# w/ EMR wt of 185# 2) Monitor renal fxn, monitor for continuation of HD (s/p HD x 1 on 10/09) 3) Monitor lytes, lipase 4) Wound healing: add Nephrovite x 1 + Kael 1pkt BID 5) Add probiotics via GT
[2019-10-24 16:00] VITALS: BP 128/74
--- NOTE | 2019-10-24 19:23 | NUR ---
HAND-OFF: Report given to ENRIQUE Joy.
--- NOTE | 2019-10-24 19:59 | NUR ---
NURSE NOTES: Received patient comfortably sleeping without complaints.
[2019-10-24 20:00] VITALS: BP 130/67
[2019-10-24] MEDS: Dyna-Hex 2% Top Sol 2oz TOPIC SCH (20:18)
--- NOTE | 2019-10-24 22:33 | Surgery Progress Note ---
Surgery Progress Note Subjective Additional Comments s/p tube placement and drainage exam stable doing well Objective Last 24 Hour Vital Signs Date Time Temp Pulse Resp B/P (MAP) Pulse Ox O2 Delivery O2 Flow Rate FiO2 10/24/19 21:36 75 130/67 10/24/19 21:36 130/67 10/24/19 20:00 97.0 75 20 130/67 (88) 97 10/24/19 18:05 85 128/74 10/24/19 16:00 99.0 85 16 128/74 (92) 100 10/24/19 15:44 140/77 10/24/19 12:00 99.3 84 19 119/66 (83) 100 10/24/19 10:06 99.0 10/24/19 09:00 99 103/71 10/24/19 09:00 99 103/71 10/24/19 09:00 Nasal Cannula 2.0 10/24/19 08:00 99.9 99 20 103/71 (82) 98 10/24/19 07:00 98 Nasal Cannula 2.0 28 10/24/19 06:00 124/61 10/24/19 04:00 99.8 87 20 130/70 (90) 99 10/24/19 00:00 98.6 85 17 117/73 (88) 97 I&O Intake and Output 10/23/19 10/24/19 18:59 06:59 Intake Total 457 ml 555 ml Output Total 100 ml Balance 457 ml 455 ml Intake Free Water 100 ml IV Total 302 ml 500 ml Tube Feeding 55 ml 55 ml Other 100 ml # Voids 3 3 # Bowel Movements 2 1 Dressing: other Wound: other Drains: other Cardiovascular: RSR Respiratory: decreased breath sounds Abdomen: soft, other, non-distended, decreased bowel sounds Extremities: no cyanosis Laboratory Tests Test 10/24/19 06:12 White Blood Count 7.1 K/UL (4.8-10.8) Red Blood Count 2.32 M/UL (4.20-5.40) L Hemoglobin 6.9 G/DL (12.0-16.0) *L Hematocrit 20.7 % (37.0-47.0) L Mean Corpuscular Volume 90 FL (80-99) Mean Corpuscular Hemoglobin 29.6 PG (27.0-31.0) Mean Corpuscular Hemoglobin Concent 33.0 G/DL (32.0-36.0) Red Cell Distribution Width 15.1 % (11.6-14.8) H Platelet Count 272 K/UL (150-450) Mean Platelet Volume 6.5 FL (6.5-10.1) Neutrophils (%) (Auto) % (45.0-75.0) Lymphocytes (%) (Auto) % (20.0-45.0) Monocytes (%) (Auto) % (1.0-10.0) Eosinophils (%) (Auto) % (0.0-3.0) Basophils (%) (Auto) % (0.0-2.0) Differential Total Cells Counted 100 Neutrophils % (Manual) 78 % (45-75) H Lymphocytes % (Manual) 9 % (20-45) L Monocytes % (Manual) 8 % (1-10) Eosinophils % (Manual) 4 % (0-3) H Basophils % (Manual) 1 % (0-2) Band Neutrophils 0 % (0-8) Platelet Estimate Adequate Platelet Morphology Normal Hypochromasia 3+ Prothrombin Time 11.1 SEC (9.30-11.50) Prothromb Time International Ratio 1.0 (0.9-1.1) Activated Partial Thromboplast Time 32 SEC (23-33) Sodium Level 136 MMOL/L (136-145) Potassium Level 5.0 MMOL/L (3.5-5.1) Chloride Level 108 MMOL/L (98-107) H Carbon Dioxide Level 16 MMOL/L (21-32) L Anion Gap 12 mmol/L (5-15) Blood Urea Nitrogen 40 mg/dL (7-18) H Creatinine 2.5 MG/DL (0.55-1.30) H Estimat Glomerular Filtration Rate mL/min (>60) Glucose Level 94 MG/DL (74-106) Calcium Level 7.7 MG/DL (8.5-10.1) L Magnesium Level 1.7 MG/DL (1.8-2.4) L Pro-B-Type Natriuretic Peptide 6429 pg/mL (0-125) H Amylase Level 112 U/L (25-115) Lipase 778 U/L (73-393) H Thyroid Stimulating Hormone (TSH) 53.568 uiU/mL (0.358-3.740) Plan Problems: (1) Lactic acid acidosis Assessment & Plan: Patient noted to have leukocytosis, fevers, abdominal wall cellulitis, lactic acidosis. Abnormal labs. Etiology and work-up continuing currently with microbiology pending and on IV antibiotics Leukocytosis Elevated LFTs. Imaging noted. Unlikely cholecystitis but potential passed stone. Will discuss with GI for considerations of MRCP versus ERCP versus monitoring Local care being provided. Imaging noted Pt presented on admission with partially opened DTPI Sacrum.Base of wound extends from sacrum to R and L buttocks and is maroon with #3 small openings , each with slough at mid sacral area. Pt grimaced when affected area minimally palpated. Non-blanching erythema noted to R and L ischial regions. Moisture Intertrigo with surrounding erythema and denuded skin noted to R and L breasts. Mild odor noted each skin folds of breasts.Small amt sanguineous exudate noted from L breast. Mons pubis,labia majora, and medial aspects of both upper thighs erythematous and denuded. R ad L heels are firm and blanchable. Tx.Plan: Adair Liquid Skin Repair to R and L breasts(x1 application) applied to folds of each breasts. Apply Moisture Barrier paste to perineum with each incontinence care. Apply Moisture Barrier Paste to Sacrum.Cover with Optifoam drsgs. Change every 3 days and prn. APM/SIM Mattress overlay. Reposition at least every 2 hours or as tolerated. Off-load heels with pillow. (2) Sepsis Assessment & Plan: 73-year-old female with sepsis, lactic acidosis, renal insufficiency, cellulitis, leukocytosis. Febrile, hemodynamically stable, exam as above Coordinated with radiology for urgent temporary even as catheter insertion. Placed today and will discuss with nephrology for dialysis Antibiotics as per infectious disease Trend labs IV fluid resuscitation Dense consolidation in the posterior right lower lobe, likely pneumonia Liquid stool in the proximal colon, could indicate diarrheal illness Trace free intraperitoneal fluid Slight hepatic atrophy and surface nodularity raising possibility of cirrhotic change Small lesser sac varices and splenomegaly raises possibility of portal hypertension Pericardial effusion, also evident previously abd wall cellulitis superficial and lumps likely prior injection sites and not infected. cholelithiasis unlikely etiology lft's trending down cameron/lip pancreatitis chemical CT noted cont abx s/p juan tube and drain HIDA positive MRCP Findings: There is mild ascites. There is nodularity of the liver surface. Gallbladder is distended. There is thickening of the gallbladder wall and multiple gallstones. There is no evidence of intrahepatic biliary ductal dilatation. CBD is normal in caliber measuring about 4 mm. There are a few cysts within both kidneys. There is a small right pleural effusion trace left pleural effusion. The spleen is prominent. IMPRESSION: No biliary ductal dilatation or evidence of choledocholithiasis Cholelithiasis. Cirrhosis of the liver with signs of portal hypertension including ascites and splenomegaly. Small bilateral renal cysts Small right pleural effusion. Trace left pleural effusion. We will follow with recommendations cholecystostomy tube placement Thank you for allowing me to participate in patient care Kirk Em Oct 24, 2019 22:33
[2019-10-25] VITALS: BP 131/72
--- NOTE | 2019-10-25 03:01 | Progress Note ---
DATE: 10/24/2019 CARDIOLOGY PROGRESS NOTE SUBJECTIVE: The patient has a cholecystostomy drain placed. output is noted. Blood counts have decreased. She has less abdominal pain. Blood pressure trend is increasing. PHYSICAL EXAMINATION: VITAL SIGNS: Blood pressure 130/70, pulse 87, respirations 20. LUNGS: Bilateral breath sounds. CARDIAC: Regular rhythm and rate. Normal S1 and S2 with a fourth heart sound. No rub. ABDOMEN: Slightly distended and diffusely tender. No guarding or rebound. EXTREMITIES: Without edema. Right chest wall, the catheter site clean and dry. LABORATORY DATA: White count 7, hemoglobin 6.9. Potassium 5, sodium 136, bicarb 16, BUN 40, creatinine 2.5, magnesium 1.7. Pro-natriuretic peptide 6400. TSH is . IMPRESSION: 1. Sepsis. 2. Cholecystitis. 3. Hypomagnesemia. 4. Severely hypothyroid due to non-absorption of oral drugs. 5. Hypertensive heart disease. 6. End-stage renal disease. PLAN: 1. Antimicrobials. 2. Gallbladder drainage. 3. Hemodialysis with ultrafiltration. 4. IV magnesium. 5. IV thyroid replacement. Lance Rivas M.D. DR: MELVA JOB#: [id number] CC:
[2019-10-25 04:30] VITALS: BP 126/65
[2019-10-25] MEDS: HydrALAZINE 50mg tab GT SCH ×3 (05:29→21:56)
[2019-10-25] MEDS: D5W w/KCl 20mEq 1,000 ML IV SCH (05:29)
--- NOTE | 2019-10-25 07:27 | NUR ---
HAND-OFF: Report given to Young Kapoor RN.
--- NOTE | 2019-10-25 07:28 | NUR ---
NURSE NOTES: Received pt in bed, AAO x 3. On NC 2L/min. No c/o of pain/distress. IV on RIJ intact and patent, running D5W with kcl 20 mEq @ 50 ml/hr. On G-tube feeding. Draining on RUQ noted. Side rails padded for seizure precaution. Bed in the lowest, locked, and alarm on. Call light within reach. Will continue to monitor
[2019-10-25 07:35] LABS: BASOPHILS % (AUTO) 0.8 % (0.0-2.0); EOSINOPHILS % (AUTO) 4.1 % (0.0-3.0); HEMATOCRIT 25.3 % (37.0-47.0); HEMOGLOBIN 8.4 G/DL (12.0-16.0); LYMPHOCYTES % (AUTO) 7.5 % (20.0-45.0); MEAN CORPUSCULAR VOLUME 88 FL (80-99); MONOCYTES % (AUTO) 6.7 % (1.0-10.0); NEUTROPHILS % (AUTO) 80.9 % (45.0-75.0); PLATELET COUNT 254 K/UL (150-450); RED BLOOD COUNT 2.89 M/UL (4.20-5.40); RED CELL DISTRIBUTION WIDTH 15.2 % (11.6-14.8); WHITE BLOOD COUNT 6.5 K/UL (4.8-10.8)
--- NOTE | 2019-10-25 07:50 | General Progress Note ---
Assessment/Plan Problem List: (1) Sepsis ICD Codes: A41.9 - Sepsis, unspecified organism SNOMED: 63415309 (2) Lactic acid acidosis ICD Codes: E87.2 - Acidosis SNOMED: 02061698 (3) Anemia ICD Codes: D64.9 - Anemia, unspecified SNOMED: 369538712 (4) Alkalosis, metabolic ICD Codes: E87.3 - Alkalosis, metabolic SNOMED: 1201035 (5) Acidosis ICD Codes: E87.2 - Acidosis SNOMED: 32781237 (6) UTI (urinary tract infection) ICD Codes: N39.0 - Urinary tract infection, site not specified SNOMED: 36738138 (7) Acute renal failure (ARF) ICD Codes: N17.9 - Acute kidney failure, unspecified SNOMED: 90772184 Status: unchanged Assessment/Plan: monitor output from cholecystostomy drain iv abx wound care HD per renal monitor bp- may need to resume bp meds monitor for bleeding transfuse as needed trend wbc monitor lfts Subjective ROS Limited/Unobtainable: No Constitutional: Reports: malaise, weakness HEENT: Reports: no symptoms Cardiovascular: Reports: no symptoms Respiratory: Reports: no symptoms Gastrointestinal/Abdominal: Reports: abdominal pain Genitourinary: Reports: no symptoms Neurologic/Psychiatric: Reports: pre-existing deficit Endocrine: Reports: no symptoms Hematologic/Lymphatic: Reports: anemia Allergies: Coded Allergies: ERYTHROMYCIN BASE (Unverified Allergy, Intermediate, 07/14/19) Per patient not allergic to medications or food All Systems: reviewed and negative except above Subjective no complaints. less abd pain. s/p transfusion. no bleeding noted. low grade temp Objective Last 24 Hour Vital Signs Date Time Temp Pulse Resp B/P (MAP) Pulse Ox O2 Delivery O2 Flow Rate FiO2 10/25/19 05:29 126/65 10/25/19 04:30 100.0 89 20 126/65 (85) 98 10/25/19 00:00 98.6 81 19 131/72 (91) 100 10/24/19 21:36 75 130/67 10/24/19 21:36 130/67 10/24/19 21:00 Nasal Cannula 2.0 10/24/19 20:00 97.0 75 20 130/67 (88) 97 10/24/19 18:05 85 128/74 10/24/19 16:00 99.0 85 16 128/74 (92) 100 10/24/19 15:44 140/77 10/24/19 12:00 99.3 84 19 119/66 (83) 100 10/24/19 10:06 99.0 10/24/19 09:00 99 103/71 10/24/19 09:00 99 103/71 10/24/19 09:00 Nasal Cannula 2.0 10/24/19 08:00 99.9 99 20 103/71 (82) 98 Intake and Output 10/24/19 10/25/19 19:00 07:00 Intake Total 1065 ml 1485 ml Balance 1065 ml 1485 ml Intake Free Water 200 ml 200 ml IV Total 260 ml 625 ml Tube Feeding 605 ml 660 ml Laboratory Tests 10/25/19 06:45: White Blood Count 6.5, Red Blood Count 2.89L, Hemoglobin 8.4L, Hematocrit 25.3L , Mean Corpuscular Volume 88, Mean Corpuscular Hemoglobin 29.1, Mean Corpuscular Hemoglobin Concent 33.2, Red Cell Distribution Width 15.2H, Platelet Count 254, Mean Platelet Volume 6.6, Neutrophils (%) (Auto) 80.9H, Lymphocytes (%) (Auto) 7.5L, Monocytes (%) (Auto) 6.7, Eosinophils (%) (Auto) 4.1H, Basophils (%) (Auto) 0.8, Sodium Level [Pending], Potassium Level [Pending ], Chloride Level [Pending], Carbon Dioxide Level [Pending], Blood Urea Nitrogen [Pending], Creatinine [Pending], Estimat Glomerular Filtration Rate [ Pending], Glucose Level [Pending], Calcium Level [Pending], Total Bilirubin [ Pending], Aspartate Amino Transf (AST/SGOT) [Pending], Alanine Aminotransferase (ALT/SGPT) [Pending], Alkaline Phosphatase [Pending], Total Protein [Pending], Albumin [Pending], Globulin [Pending] Height (Feet): 5 Height (Inches): 1.00 Weight (Pounds): 216 Objective General Appearance: WD/WN, alert Neck: supple Cardiovascular: normal rate, regular rhythm Respiratory/Chest: chest wall non-tender, lungs clear, normal breath sounds Abdomen: normal bowel sounds, soft, no organomegaly, tender Edema: no edema noted Arm (L), no edema noted Arm (R), no edema noted Leg (L), no edema noted Leg (R), no edema noted Pedal (L), no edema noted Pedal (R), no edema noted Generalized Chema Hendricks MD Oct 25, 2019 07:50
[2019-10-25 07:54] LABS: ALANINE AMINOTRANSFERASE 13 U/L (12-78); ALBUMIN 1.5 G/DL (3.4-5.0); ALBUMIN/GLOBULIN RATIO 0.3 (1.0-2.7); ALKALINE PHOSPHATASE 105 U/L (46-116); ANION GAP 9 mmol/L (5-15); ASPARTATE AMINO TRANSFERASE 31 U/L (15-37); BILIRUBIN,TOTAL 0.6 MG/DL (0.2-1.0); BLOOD UREA NITROGEN 40 mg/dL (7-18); CALCIUM 7.5 MG/DL (8.5-10.1); CARBON DIOXIDE 19 MMOL/L (21-32); CHLORIDE 108 MMOL/L (98-107); CREATININE 2.5 MG/DL (0.55-1.30); POTASSIUM 5.2 MMOL/L (3.5-5.1); SODIUM 136 MMOL/L (136-145)
[2019-10-25 08:00] VITALS: BP 133/70
--- NOTE | 2019-10-25 08:14 | Nephrology Progress Note ---
Assessment/Plan Status: unchanged Assessment/Plan: A/P (1) Anemia -s/p bld Tx. Per PCP mgmt (2) CKD 5 - Cr stable off HD (3) Sepsis -cont rxx esbl sepsis (4) Ascites/ Cirrhosis Mgmt per GI cholecystostomy tube placed 5) Mild Hyperk+ IVfs adjusted and K+ removed Subjective Date patient seen: Oct 25, 2019 Time patient seen: 08:13 ROS Limited/Unobtainable: No Allergies: Coded Allergies: ERYTHROMYCIN BASE (Unverified Allergy, Intermediate, 07/14/19) Per patient not allergic to medications or food Subjective Patient resting comfortably Objective Last 24 Hour Vital Signs Date Time Temp Pulse Resp B/P (MAP) Pulse Ox O2 Delivery O2 Flow Rate FiO2 10/25/19 05:29 126/65 10/25/19 04:30 100.0 89 20 126/65 (85) 98 10/25/19 00:00 98.6 81 19 131/72 (91) 100 10/24/19 21:36 75 130/67 10/24/19 21:36 130/67 10/24/19 21:00 Nasal Cannula 2.0 10/24/19 20:00 97.0 75 20 130/67 (88) 97 10/24/19 18:05 85 128/74 10/24/19 16:00 99.0 85 16 128/74 (92) 100 10/24/19 15:44 140/77 10/24/19 12:00 99.3 84 19 119/66 (83) 100 10/24/19 10:06 99.0 10/24/19 09:00 99 103/71 10/24/19 09:00 99 103/71 10/24/19 09:00 Nasal Cannula 2.0 Intake and Output 10/24/19 10/25/19 19:00 07:00 Intake Total 1065 ml 1485 ml Balance 1065 ml 1485 ml Intake Free Water 200 ml 200 ml IV Total 260 ml 625 ml Tube Feeding 605 ml 660 ml Laboratory Tests 10/25/19 06:45: White Blood Count 6.5, Red Blood Count 2.89L, Hemoglobin 8.4L, Hematocrit 25.3L , Mean Corpuscular Volume 88, Mean Corpuscular Hemoglobin 29.1, Mean Corpuscular Hemoglobin Concent 33.2, Red Cell Distribution Width 15.2H, Platelet Count 254, Mean Platelet Volume 6.6, Neutrophils (%) (Auto) 80.9H, Lymphocytes (%) (Auto) 7.5L, Monocytes (%) (Auto) 6.7, Eosinophils (%) (Auto) 4.1H, Basophils (%) (Auto) 0.8, Sodium Level 136, Potassium Level 5.2H, Chloride Level 108H, Carbon Dioxide Level 19L, Anion Gap 9, Blood Urea Nitrogen 40H, Creatinine 2.5H, Estimat Glomerular Filtration Rate , Glucose Level 96, Calcium Level 7.5L, Total Bilirubin 0.6, Aspartate Amino Transf (AST/SGOT) 31, Alanine Aminotransferase (ALT/SGPT) 13, Alkaline Phosphatase 105, Total Protein 5.8L, Albumin 1.5L, Globulin 4.3, Albumin/Globulin Ratio 0.3L Height (Feet): 5 Height (Inches): 1.00 Weight (Pounds): 216 General Appearance: no apparent distress, alert EENT: normal ENT inspection Neck: normal alignment, supple Cardiovascular: normal rate, regular rhythm Respiratory/Chest: rhonchi - bilaterally Abdomen: non tender, soft Edema: no edema noted Arm (L), no edema noted Arm (R), no edema noted Leg (L), no edema noted Leg (R), no edema noted Pedal (L), no edema noted Pedal (R), no edema noted Generalized Cody Hoyos MD Oct 25, 2019 08:14
[2019-10-25] MEDS: Metoprolol Tartrate 50mg tab GT SCH ×2 (08:38→20:31)
[2019-10-25] MEDS: Meropenem 500 MG in NS 55 ML IVPB SCH (08:39)
[2019-10-25] MEDS: D5W 1,000 ML IV SCH (08:39)
--- NOTE | 2019-10-25 09:13 | Diagnostic Imaging Report ---
EXAM: XR Chest, 1 View CLINICAL HISTORY: F/U TECHNIQUE: Frontal view of the chest. COMPARISON: Chest x-rays dated 12/21/18 and 10/18/19 FINDINGS: Lungs: Mild pulmonary vascular congestion. The lungs are otherwise clear. Pleural space: Unremarkable. The costophrenic angles are sharp. No visible pneumothorax. Heart: Cardiomegaly. Mediastinum: Unremarkable. Bones/joints: Unremarkable. Tubes, lines and devices: Right IJ-approach central venous catheter with the tip at the superior cavoatrial junction. IMPRESSION: No significant interval change compared to the prior chest x-ray, with mild CHF.
--- NOTE | 2019-10-25 10:43 | Infectious Diseases Prog Note ---
Assessment/Plan Assessment/Plan antibiotics : meropenem A 1. cholecystitis s/p cholecystostomy with gram negative rods 2. leucocytosis resolved 3. renal failure on HD 4. thrombocytopenia resolved 5. pneumonia 6. Parkinsons disease 7. dementia 8. cirrhosis P 1. continue meropenem 2. will follow up cultures Subjective ROS Limited/Unobtainable: Yes Allergies: Coded Allergies: ERYTHROMYCIN BASE (Unverified Allergy, Intermediate, 07/14/19) Per patient not allergic to medications or food Objective Vital Signs Last 24 Hour Vital Signs Date Time Temp Pulse Resp B/P (MAP) Pulse Ox O2 Delivery O2 Flow Rate FiO2 10/25/19 09:00 Nasal Cannula 2.0 10/25/19 08:38 93 133/70 10/25/19 08:38 93 133/70 10/25/19 08:00 99.3 93 20 133/70 (91) 100 10/25/19 05:29 126/65 10/25/19 04:30 100.0 89 20 126/65 (85) 98 10/25/19 00:00 98.6 81 19 131/72 (91) 100 10/24/19 21:36 75 130/67 10/24/19 21:36 130/67 10/24/19 21:00 Nasal Cannula 2.0 10/24/19 20:00 97.0 75 20 130/67 (88) 97 10/24/19 18:05 85 128/74 10/24/19 16:00 99.0 85 16 128/74 (92) 100 10/24/19 15:44 140/77 10/24/19 12:00 99.3 84 19 119/66 (83) 100 Height (Feet): 5 Height (Inches): 1.00 Weight (Pounds): 216 Respiratory/Chest: lungs clear Cardiovascular: normal rate, regular rhythm, no gallop/murmur Abdomen: soft, non tender, other - GT Extremities: no edema, other - right IJ catheter Microbiology Date/Time Source Procedure Growth Status 10/22/19 13:15 Blood Blood Culture - Preliminary NO GROWTH AFTER 48 HOURS Resulted 10/23/19 14:54 Gallbladder Fluid Gram Stain - Final Resulted 10/23/19 14:54 Body Fluid Culture - Preliminary Gram Negative Walter Resulted 10/23/19 14:54 Gallbladder Fluid Anaerobic Culture - Preliminary NO GROWTH AFTER 48 HOURS Resulted Laboratory Tests Test 10/25/19 06:45 White Blood Count 6.5 K/UL (4.8-10.8) Red Blood Count 2.89 M/UL (4.20-5.40) L Hemoglobin 8.4 G/DL (12.0-16.0) L Hematocrit 25.3 % (37.0-47.0) L Mean Corpuscular Volume 88 FL (80-99) Mean Corpuscular Hemoglobin 29.1 PG (27.0-31.0) Mean Corpuscular Hemoglobin Concent 33.2 G/DL (32.0-36.0) Red Cell Distribution Width 15.2 % (11.6-14.8) H Platelet Count 254 K/UL (150-450) Mean Platelet Volume 6.6 FL (6.5-10.1) Neutrophils (%) (Auto) 80.9 % (45.0-75.0) H Lymphocytes (%) (Auto) 7.5 % (20.0-45.0) L Monocytes (%) (Auto) 6.7 % (1.0-10.0) Eosinophils (%) (Auto) 4.1 % (0.0-3.0) H Basophils (%) (Auto) 0.8 % (0.0-2.0) Sodium Level 136 MMOL/L (136-145) Potassium Level 5.2 MMOL/L (3.5-5.1) H Chloride Level 108 MMOL/L (98-107) H Carbon Dioxide Level 19 MMOL/L (21-32) L Anion Gap 9 mmol/L (5-15) Blood Urea Nitrogen 40 mg/dL (7-18) H Creatinine 2.5 MG/DL (0.55-1.30) H Estimat Glomerular Filtration Rate mL/min (>60) Glucose Level 96 MG/DL (74-106) Calcium Level 7.5 MG/DL (8.5-10.1) L Total Bilirubin 0.6 MG/DL (0.2-1.0) Aspartate Amino Transf (AST/SGOT) 31 U/L (15-37) Alanine Aminotransferase (ALT/SGPT) 13 U/L (12-78) Alkaline Phosphatase 105 U/L (46-116) Total Protein 5.8 G/DL (6.4-8.2) L Albumin 1.5 G/DL (3.4-5.0) L Globulin 4.3 g/dL Albumin/Globulin Ratio 0.3 (1.0-2.7) L Current Medications Medications (Trade) Dose Ordered Sig/Jonathan Route PRN Reason Start Time Stop Time Status Last Admin Dose Admin Acetaminophen (Tylenol) 650 mg Q4H PRN GT Mild Pain/Temp > 100.5 10/20/19 00:30 11/06/19 20:29 10/23/19 18:20 Amlodipine Besylate (Norvasc) 5 mg BID GT 10/20/19 09:00 11/13/19 17:59 10/25/19 08:38 Chlorhexidine Gluconate (Meredith-Hex 2%) 1 applic DAILY@2000 TOPIC 10/20/19 20:00 11/09/19 19:59 10/24/19 20:18 Dextrose 1,000 ml @ 50 mls/hr Q20H IV 10/25/19 08:30 11/24/19 08:29 10/25/19 08:39 Diphenhydramine HCl (Benadryl) 25 mg Q8H PRN GT Itching 10/20/19 00:30 11/14/19 08:29 Hydralazine HCl (Apresoline) 100 mg Q8HR GT 10/20/19 06:00 11/06/19 21:59 10/24/19 15:44 Lansoprazole (Prevacid) 30 mg DAILY GT 10/20/19 09:00 11/07/19 08:59 10/25/19 08:34 Levothyroxine Sodium (Synthroid) 50 mcg DAILY IV 10/25/19 09:00 11/24/19 08:59 10/25/19 08:39 Loperamide HCl (Imodium) 2 mg Q12H PRN GT Diarrhea 10/20/19 08:30 11/18/19 08:29 Meropenem 500 mg/ Sodium Chloride 55 ml @ 110 mls/hr Q24H IVPB 10/22/19 09:00 10/27/19 08:59 10/25/19 08:39 Metoclopramide HCl (Reglan) 5 mg Q6H PRN IVP Nausea & Vomiting 10/20/19 04:15 11/16/19 10:14 Metoprolol Tartrate (Lopressor) 50 mg Q12HR GT 10/22/19 21:00 11/15/19 20:59 10/25/19 08:38 Jessica Reyes MD Oct 25, 2019 10:43
[2019-10-25 12:00] VITALS: BP 136/74
--- NOTE | 2019-10-25 12:10 | Surgery Progress Note ---
Surgery Progress Note Subjective Additional Comments Patient seen exam bedside. No acute events. States she is comfortable. Since drainage abdominal pain is improved. Drainage microbiology identified. Drain output serous/dark yellow. No nausea vomiting fever chills. Otherwise comfortable. H&H noted today. Objective Last 24 Hour Vital Signs Date Time Temp Pulse Resp B/P (MAP) Pulse Ox O2 Delivery O2 Flow Rate FiO2 10/25/19 09:00 Nasal Cannula 2.0 10/25/19 08:38 93 133/70 10/25/19 08:38 93 133/70 10/25/19 08:00 99.3 93 20 133/70 (91) 100 10/25/19 05:29 126/65 10/25/19 04:30 100.0 89 20 126/65 (85) 98 10/25/19 00:00 98.6 81 19 131/72 (91) 100 10/24/19 21:36 75 130/67 10/24/19 21:36 130/67 10/24/19 21:00 Nasal Cannula 2.0 10/24/19 20:00 97.0 75 20 130/67 (88) 97 10/24/19 18:05 85 128/74 10/24/19 16:00 99.0 85 16 128/74 (92) 100 10/24/19 15:44 140/77 I&O Intake and Output 10/24/19 10/25/19 19:00 07:00 Intake Total 1065 ml 1485 ml Balance 1065 ml 1485 ml Intake Free Water 200 ml 200 ml IV Total 260 ml 625 ml Tube Feeding 605 ml 660 ml Dressing: dry, other Wound: clean, other Drains: other Cardiovascular: RSR Respiratory: clear Abdomen: soft, non-tender, present bowel sounds, non-distended Extremities: no edema, no tenderness, no cyanosis Laboratory Tests Test 10/25/19 06:45 White Blood Count 6.5 K/UL (4.8-10.8) Red Blood Count 2.89 M/UL (4.20-5.40) L Hemoglobin 8.4 G/DL (12.0-16.0) L Hematocrit 25.3 % (37.0-47.0) L Mean Corpuscular Volume 88 FL (80-99) Mean Corpuscular Hemoglobin 29.1 PG (27.0-31.0) Mean Corpuscular Hemoglobin Concent 33.2 G/DL (32.0-36.0) Red Cell Distribution Width 15.2 % (11.6-14.8) H Platelet Count 254 K/UL (150-450) Mean Platelet Volume 6.6 FL (6.5-10.1) Neutrophils (%) (Auto) 80.9 % (45.0-75.0) H Lymphocytes (%) (Auto) 7.5 % (20.0-45.0) L Monocytes (%) (Auto) 6.7 % (1.0-10.0) Eosinophils (%) (Auto) 4.1 % (0.0-3.0) H Basophils (%) (Auto) 0.8 % (0.0-2.0) Sodium Level 136 MMOL/L (136-145) Potassium Level 5.2 MMOL/L (3.5-5.1) H Chloride Level 108 MMOL/L (98-107) H Carbon Dioxide Level 19 MMOL/L (21-32) L Anion Gap 9 mmol/L (5-15) Blood Urea Nitrogen 40 mg/dL (7-18) H Creatinine 2.5 MG/DL (0.55-1.30) H Estimat Glomerular Filtration Rate mL/min (>60) Glucose Level 96 MG/DL (74-106) Calcium Level 7.5 MG/DL (8.5-10.1) L Total Bilirubin 0.6 MG/DL (0.2-1.0) Aspartate Amino Transf (AST/SGOT) 31 U/L (15-37) Alanine Aminotransferase (ALT/SGPT) 13 U/L (12-78) Alkaline Phosphatase 105 U/L (46-116) Total Protein 5.8 G/DL (6.4-8.2) L Albumin 1.5 G/DL (3.4-5.0) L Globulin 4.3 g/dL Albumin/Globulin Ratio 0.3 (1.0-2.7) L Plan Problems: (1) Lactic acid acidosis Assessment & Plan: Patient noted to have leukocytosis, fevers, abdominal wall cellulitis, lactic acidosis. Abnormal labs. Etiology and work-up continuing currently with microbiology pending and on IV antibiotics Leukocytosis Elevated LFTs. Imaging noted. Unlikely cholecystitis but potential passed stone. Will discuss with GI for considerations of MRCP versus ERCP versus monitoring Local care being provided. Imaging noted Pt presented on admission with partially opened DTPI Sacrum.Base of wound extends from sacrum to R and L buttocks and is maroon with #3 small openings , each with slough at mid sacral area. Pt grimaced when affected area minimally palpated. Non-blanching erythema noted to R and L ischial regions. Moisture Intertrigo with surrounding erythema and denuded skin noted to R and L breasts. Mild odor noted each skin folds of breasts.Small amt sanguineous exudate noted from L breast. Mons pubis,labia majora, and medial aspects of both upper thighs erythematous and denuded. R ad L heels are firm and blanchable. Tx.Plan: [place] Liquid Skin Repair to R and L breasts(x1 application) applied to folds of each breasts. Apply Moisture Barrier paste to perineum with each incontinence care. Apply Moisture Barrier Paste to Sacrum.Cover with Optifoam drsgs. Change every 3 days and prn. APM/SIM Mattress overlay. Reposition at least every 2 hours or as tolerated. Off-load heels with pillow. (2) Sepsis Assessment & Plan: 73-year-old female with sepsis, lactic acidosis, renal insufficiency, cellulitis, leukocytosis. Febrile, hemodynamically stable, exam as above Coordinated with radiology for urgent temporary even as catheter insertion. Placed today and will discuss with nephrology for dialysis Antibiotics as per infectious disease Trend labs IV fluid resuscitation Dense consolidation in the posterior right lower lobe, likely pneumonia Liquid stool in the proximal colon, could indicate diarrheal illness Trace free intraperitoneal fluid Slight hepatic atrophy and surface nodularity raising possibility of cirrhotic change Small lesser sac varices and splenomegaly raises possibility of portal hypertension Pericardial effusion, also evident previously abd wall cellulitis superficial and lumps likely prior injection sites and not infected. cholelithiasis unlikely etiology lft's trending down cameron/lip pancreatitis chemical CT noted cont abx s/p juan tube and drain HIDA positive MRCP Findings: There is mild ascites. There is nodularity of the liver surface. Gallbladder is distended. There is thickening of the gallbladder wall and multiple gallstones. There is no evidence of intrahepatic biliary ductal dilatation. CBD is normal in caliber measuring about 4 mm. There are a few cysts within both kidneys. There is a small right pleural effusion trace left pleural effusion. The spleen is prominent. IMPRESSION: No biliary ductal dilatation or evidence of choledocholithiasis Cholelithiasis. Cirrhosis of the liver with signs of portal hypertension including ascites and splenomegaly. Small bilateral renal cysts Small right pleural effusion. Trace left pleural effusion. We will follow with recommendations cholecystostomy tube placement Thank you for allowing me to participate in patient care Kirk Em Oct 25, 2019 12:10
--- NOTE | 2019-10-25 18:47 | General Progress Note ---
Assessment/Plan Status: unchanged Assessment/Plan: Assessment/Plan Status: unchanged Assessment/Plan: 1. Chronic kidney disease. 2. Hypertension. 3. CHF. 4. Dysphagia with a G-tube. 5. History of sepsis. 6. Anemia. 7. Hepatitis C. 8. Pneumonia. 9. cirrhosis. 10. gallstones 11. ascites Recommendations GTF running abx will fu Subjective Allergies: Coded Allergies: ERYTHROMYCIN BASE (Unverified Allergy, Intermediate, 07/14/19) Per patient not allergic to medications or food Subjective Feels OK no abd complaints Objective Last 24 Hour Vital Signs Date Time Temp Pulse Resp B/P (MAP) Pulse Ox O2 Delivery O2 Flow Rate FiO2 10/25/19 17:26 99 136/74 10/25/19 14:05 136/74 10/25/19 12:00 99.1 99 19 136/74 (94) 99 10/25/19 09:00 Nasal Cannula 2.0 10/25/19 08:38 93 133/70 10/25/19 08:38 93 133/70 10/25/19 08:20 97 Nasal Cannula 2.0 28 10/25/19 08:00 99.3 93 20 133/70 (91) 100 10/25/19 05:29 126/65 10/25/19 04:30 100.0 89 20 126/65 (85) 98 10/25/19 00:00 98.6 81 19 131/72 (91) 100 10/24/19 21:36 75 130/67 10/24/19 21:36 130/67 10/24/19 21:00 Nasal Cannula 2.0 10/24/19 20:00 97.0 75 20 130/67 (88) 97 Intake and Output 10/24/19 10/25/19 19:00 07:00 Intake Total 1065 ml 1485 ml Balance 1065 ml 1485 ml Intake Free Water 200 ml 200 ml IV Total 260 ml 625 ml Tube Feeding 605 ml 660 ml Laboratory Tests 10/25/19 06:45: White Blood Count 6.5, Red Blood Count 2.89L, Hemoglobin 8.4L, Hematocrit 25.3L , Mean Corpuscular Volume 88, Mean Corpuscular Hemoglobin 29.1, Mean Corpuscular Hemoglobin Concent 33.2, Red Cell Distribution Width 15.2H, Platelet Count 254, Mean Platelet Volume 6.6, Neutrophils (%) (Auto) 80.9H, Lymphocytes (%) (Auto) 7.5L, Monocytes (%) (Auto) 6.7, Eosinophils (%) (Auto) 4.1H, Basophils (%) (Auto) 0.8, Sodium Level 136, Potassium Level 5.2H, Chloride Level 108H, Carbon Dioxide Level 19L, Anion Gap 9, Blood Urea Nitrogen 40H, Creatinine 2.5H, Estimat Glomerular Filtration Rate , Glucose Level 96, Calcium Level 7.5L, Total Bilirubin 0.6, Aspartate Amino Transf (AST/SGOT) 31, Alanine Aminotransferase (ALT/SGPT) 13, Alkaline Phosphatase 105, Total Protein 5.8L, Albumin 1.5L, Globulin 4.3, Albumin/Globulin Ratio 0.3L Height (Feet): 5 Height (Inches): 1.00 Weight (Pounds): 216 Objective Debilitated AA woman NCAT supple CTA RR Abd Distended, NT, (+) GT no edema Mina Rao MD Oct 25, 2019 18:47
--- NOTE | 2019-10-25 18:56 | NUR ---
HAND-OFF: Report given to ENRIQUE Joy.
[2019-10-25 20:00] VITALS: BP 136/67
--- NOTE | 2019-10-25 20:03 | NUR ---
NURSE NOTES: Received patient comfortably resting in bed, tolerating her g-tube feeding well.
[2019-10-25] MEDS: Dyna-Hex 2% Top Sol 2oz TOPIC SCH (20:30)
[2019-10-26] VITALS: BP 128/70
[2019-10-26 04:00] VITALS: BP 131/64
[2019-10-26] MEDS: D5W 1,000 ML IV SCH (05:03)
[2019-10-26] MEDS: HydrALAZINE 50mg tab GT SCH ×3 (05:03→20:55)
[2019-10-26 07:15] LABS: BASOPHILS % (AUTO) 0.8 % (0.0-2.0); EOSINOPHILS % (AUTO) 3.5 % (0.0-3.0); HEMATOCRIT 24.7 % (37.0-47.0); HEMOGLOBIN 8.1 G/DL (12.0-16.0); LYMPHOCYTES % (AUTO) 10.9 % (20.0-45.0); MEAN CORPUSCULAR VOLUME 88 FL (80-99); MONOCYTES % (AUTO) 6.4 % (1.0-10.0); NEUTROPHILS % (AUTO) 78.3 % (45.0-75.0); PLATELET COUNT 249 K/UL (150-450); RED CELL DISTRIBUTION WIDTH 15.3 % (11.6-14.8); WHITE BLOOD COUNT 6.1 K/UL (4.8-10.8)
--- NOTE | 2019-10-26 07:22 | NUR ---
HAND-OFF: Report given to Young Kapoor RN.
--- NOTE | 2019-10-26 07:25 | NUR ---
NURSE NOTES: Received pt in bed, sleeping. NC @ 2L/min. No s/s of distress/pain. IV on RIJ running D5W @ 50 ml/hr. G-tube feeding @ 55 ml/hr. Pig tail on RUQ noted. Side rails padded for seizure precaution. Bed in the lowest, locked, and alarm on. Call light within reach. Will continue to monitor.
[2019-10-26 07:31] LABS: ALANINE AMINOTRANSFERASE 15 U/L (12-78); ALBUMIN 1.5 G/DL (3.4-5.0); ALBUMIN/GLOBULIN RATIO 0.3 (1.0-2.7); ALKALINE PHOSPHATASE 100 U/L (46-116); ANION GAP 10 mmol/L (5-15); ASPARTATE AMINO TRANSFERASE 37 U/L (15-37); BILIRUBIN,TOTAL 0.6 MG/DL (0.2-1.0); BLOOD UREA NITROGEN 42 mg/dL (7-18); CALCIUM 8.1 MG/DL (8.5-10.1); CARBON DIOXIDE 18 MMOL/L (21-32); CHLORIDE 112 MMOL/L (98-107); CREATININE 2.4 MG/DL (0.55-1.30); POTASSIUM 5.3 MMOL/L (3.5-5.1); SODIUM 139 MMOL/L (136-145)
--- NOTE | 2019-10-26 07:54 | Nephrology Progress Note ---
Assessment/Plan Status: unchanged Assessment/Plan: A/P (1) Anemia -s/p bld Tx. - monitor and prn bld tx (2) CKD 5 - Cr stable off HD. Cr at 2.3 (3) Sepsis -cont rxx esbl sepsis (4) Ascites/ Cirrhosis Mgmt per GI cholecystostomy tube placed 5) Mild Hyperk+ IVfs adjusted Lasix 40 mg IV x1 Subjective Date patient seen: Oct 26, 2019 Time patient seen: 07:53 ROS Limited/Unobtainable: No Allergies: Coded Allergies: ERYTHROMYCIN BASE (Unverified Allergy, Intermediate, 07/14/19) Per patient not allergic to medications or food Subjective Patient resting comfortably with no complaints Objective Last 24 Hour Vital Signs Date Time Temp Pulse Resp B/P (MAP) Pulse Ox O2 Delivery O2 Flow Rate FiO2 10/26/19 05:03 131/64 10/26/19 04:00 98.1 90 18 131/64 (86) 97 10/26/19 00:00 99.4 89 18 128/70 (89) 96 10/25/19 21:56 130/67 10/25/19 20:31 87 130/67 10/25/19 20:22 Nasal Cannula 2.0 10/25/19 20:00 99.1 99 19 136/67 (90) 99 10/25/19 17:26 99 136/74 10/25/19 14:05 136/74 10/25/19 12:00 99.1 99 19 136/74 (94) 99 10/25/19 09:00 Nasal Cannula 2.0 10/25/19 08:38 93 133/70 10/25/19 08:38 93 133/70 10/25/19 08:20 97 Nasal Cannula 2.0 28 10/25/19 08:00 99.3 93 20 133/70 (91) 100 Intake and Output 10/25/19 10/26/19 19:00 07:00 Intake Total 1360 ml 1460 ml Output Total 120 ml Balance 1360 ml 1340 ml Intake Free Water 200 ml 200 ml IV Total 500 ml 600 ml Tube Feeding 660 ml 660 ml Drainage Total 120 ml # Bowel Movements 3 Laboratory Tests 10/26/19 06:25: White Blood Count 6.1, Red Blood Count 2.80L, Hemoglobin 8.1L, Hematocrit 24.7L , Mean Corpuscular Volume 88, Mean Corpuscular Hemoglobin 29.1, Mean Corpuscular Hemoglobin Concent 33.0, Red Cell Distribution Width 15.3H, Platelet Count 249, Mean Platelet Volume 6.0L, Neutrophils (%) (Auto) 78.3H, Lymphocytes (%) (Auto) 10.9L, Monocytes (%) (Auto) 6.4, Eosinophils (%) (Auto) 3.5H, Basophils (%) (Auto) 0.8, Sodium Level 139, Potassium Level 5.3H, Chloride Level 112H, Carbon Dioxide Level 18L, Anion Gap 10, Blood Urea Nitrogen 42H, Creatinine 2.4H, Estimat Glomerular Filtration Rate , Glucose Level 99, Calcium Level 8.1L, Total Bilirubin 0.6, Aspartate Amino Transf (AST/ SGOT) 37, Alanine Aminotransferase (ALT/SGPT) 15, Alkaline Phosphatase 100, Total Protein 5.9L, Albumin 1.5L, Globulin 4.4, Albumin/Globulin Ratio 0.3L Height (Feet): 5 Height (Inches): 1.00 Weight (Pounds): 201 General Appearance: no apparent distress EENT: normal ENT inspection Neck: normal alignment, supple Cardiovascular: normal rate, regular rhythm Respiratory/Chest: lungs clear, normal breath sounds Abdomen: non tender, soft Edema: no edema noted Arm (L), no edema noted Arm (R), no edema noted Leg (L), no edema noted Leg (R), no edema noted Pedal (L), no edema noted Pedal (R), no edema noted Generalized Cody Hoyos MD Oct 26, 2019 07:54
[2019-10-26 08:00] VITALS: BP 128/87
[2019-10-26] MEDS: Metoprolol Tartrate 50mg tab GT SCH ×2 (09:00→20:55)
[2019-10-26] MEDS: Meropenem 500 MG in NS 55 ML IVPB SCH (09:06)
--- NOTE | 2019-10-26 11:00 | Infectious Diseases Prog Note ---
Assessment/Plan Assessment/Plan IMPRESSION: 1. E, coli sepsis 2. pneumonia in right lower lobe. 3. Acute renal failure. 4. Chronic kidney disease. 5. Hyperkalemia, corrected 6. Hypernatremia, corrected 7. Hypoxemia. 8. Anemia. 9. Thrombocytopenia. 10. Hypothyroidism. 11. Recent MRSA sepsis. 12. Parkinson disease. 13. Dementia. 14. Cirrhosis 15. Portal hypertension 16. Cholelithiasis, Cholecystitis Culture: pseudomonas 17. s/p cholecystostomy RECOMMENDATION: continue Meropenem Will f/u cultures Subjective ROS Limited/Unobtainable: Yes Constitutional: Denies: fever Allergies: Coded Allergies: ERYTHROMYCIN BASE (Unverified Allergy, Intermediate, 07/14/19) Per patient not allergic to medications or food Objective Vital Signs Last 24 Hour Vital Signs Date Time Temp Pulse Resp B/P (MAP) Pulse Ox O2 Delivery O2 Flow Rate FiO2 10/26/19 09:06 89 128/87 10/26/19 08:00 98.8 89 20 128/87 (101) 98 10/26/19 07:56 99 Nasal Cannula 2.0 28 10/26/19 05:03 131/64 10/26/19 04:00 98.1 90 18 131/64 (86) 97 10/26/19 00:00 99.4 89 18 128/70 (89) 96 10/25/19 21:56 130/67 10/25/19 20:31 87 130/67 10/25/19 20:22 Nasal Cannula 2.0 10/25/19 20:00 99.1 99 19 136/67 (90) 99 10/25/19 17:26 99 136/74 10/25/19 14:05 136/74 10/25/19 12:00 99.1 99 19 136/74 (94) 99 Height (Feet): 5 Height (Inches): 1.00 Weight (Pounds): 201 General Appearance: no acute distress HEENT: mucous membranes moist Respiratory/Chest: lungs clear Cardiovascular: normal rate, other - RIJ HD line Abdomen: soft, non tender, other - GT in place Extremities: no edema Neurologic/Psychiatric: other - opens eyes, drowsy Microbiology Date/Time Source Procedure Growth Status 10/23/19 14:54 Gallbladder Fluid Gram Stain - Final Resulted 10/23/19 14:54 Body Fluid Culture - Final Pseudomonas Aeruginosa Resulted 10/23/19 14:54 Gallbladder Fluid Anaerobic Culture - Preliminary NO GROWTH AFTER 48 HOURS Resulted Laboratory Tests Test 10/26/19 06:25 White Blood Count 6.1 K/UL (4.8-10.8) Red Blood Count 2.80 M/UL (4.20-5.40) L Hemoglobin 8.1 G/DL (12.0-16.0) L Hematocrit 24.7 % (37.0-47.0) L Mean Corpuscular Volume 88 FL (80-99) Mean Corpuscular Hemoglobin 29.1 PG (27.0-31.0) Mean Corpuscular Hemoglobin Concent 33.0 G/DL (32.0-36.0) Red Cell Distribution Width 15.3 % (11.6-14.8) H Platelet Count 249 K/UL (150-450) Mean Platelet Volume 6.0 FL (6.5-10.1) L Neutrophils (%) (Auto) 78.3 % (45.0-75.0) H Lymphocytes (%) (Auto) 10.9 % (20.0-45.0) L Monocytes (%) (Auto) 6.4 % (1.0-10.0) Eosinophils (%) (Auto) 3.5 % (0.0-3.0) H Basophils (%) (Auto) 0.8 % (0.0-2.0) Sodium Level 139 MMOL/L (136-145) Potassium Level 5.3 MMOL/L (3.5-5.1) H Chloride Level 112 MMOL/L (98-107) H Carbon Dioxide Level 18 MMOL/L (21-32) L Anion Gap 10 mmol/L (5-15) Blood Urea Nitrogen 42 mg/dL (7-18) H Creatinine 2.4 MG/DL (0.55-1.30) H Estimat Glomerular Filtration Rate mL/min (>60) Glucose Level 99 MG/DL (74-106) Calcium Level 8.1 MG/DL (8.5-10.1) L Total Bilirubin 0.6 MG/DL (0.2-1.0) Aspartate Amino Transf (AST/SGOT) 37 U/L (15-37) Alanine Aminotransferase (ALT/SGPT) 15 U/L (12-78) Alkaline Phosphatase 100 U/L (46-116) Total Protein 5.9 G/DL (6.4-8.2) L Albumin 1.5 G/DL (3.4-5.0) L Globulin 4.4 g/dL Albumin/Globulin Ratio 0.3 (1.0-2.7) L Current Medications Medications (Trade) Dose Ordered Sig/Jonathan Route PRN Reason Start Time Stop Time Status Last Admin Dose Admin Acetaminophen (Tylenol) 650 mg Q4H PRN GT Mild Pain/Temp > 100.5 10/20/19 00:30 11/06/19 20:29 10/23/19 18:20 Amlodipine Besylate (Norvasc) 5 mg BID GT 10/20/19 09:00 11/13/19 17:59 10/26/19 09:06 Chlorhexidine Gluconate (Meredith-Hex 2%) 1 applic DAILY@2000 TOPIC 10/20/19 20:00 11/09/19 19:59 10/25/19 20:30 Dextrose 1,000 ml @ 50 mls/hr Q20H IV 10/25/19 08:30 11/24/19 08:29 10/26/19 05:03 Diphenhydramine HCl (Benadryl) 25 mg Q8H PRN GT Itching 10/20/19 00:30 11/14/19 08:29 Hydralazine HCl (Apresoline) 100 mg Q8HR GT 10/20/19 06:00 11/06/19 21:59 10/25/19 14:05 Lansoprazole (Prevacid) 30 mg DAILY GT 10/20/19 09:00 11/07/19 08:59 10/26/19 09:06 Levothyroxine Sodium (Synthroid) 50 mcg DAILY IV 10/25/19 09:00 11/24/19 08:59 10/26/19 09:06 Loperamide HCl (Imodium) 2 mg Q12H PRN GT Diarrhea 10/20/19 08:30 11/18/19 08:29 10/25/19 14:00 Meropenem 500 mg/ Sodium Chloride 55 ml @ 110 mls/hr Q24H IVPB 10/26/19 09:00 10/31/19 08:59 10/26/19 09:06 Metoclopramide HCl (Reglan) 5 mg Q6H PRN IVP Nausea & Vomiting 10/20/19 04:15 11/16/19 10:14 Metoprolol Tartrate (Lopressor) 50 mg Q12HR GT 10/22/19 21:00 11/15/19 20:59 10/25/19 20:31 Ruperto Freedman MD Oct 26, 2019 11:00
[2019-10-26 12:00] VITALS: BP 130/82
--- NOTE | 2019-10-26 12:53 | General Progress Note ---
Assessment/Plan Problem List: (1) Sepsis ICD Codes: A41.9 - Sepsis, unspecified organism SNOMED: 41473574 (2) Lactic acid acidosis ICD Codes: E87.2 - Acidosis SNOMED: 34450437 (3) Anemia ICD Codes: D64.9 - Anemia, unspecified SNOMED: 387278562 (4) Alkalosis, metabolic ICD Codes: E87.3 - Alkalosis, metabolic SNOMED: 3025038 (5) Acidosis ICD Codes: E87.2 - Acidosis SNOMED: 06160211 (6) UTI (urinary tract infection) ICD Codes: N39.0 - Urinary tract infection, site not specified SNOMED: 57593922 (7) Acute renal failure (ARF) ICD Codes: N17.9 - Acute kidney failure, unspecified SNOMED: 37678529 Status: stable, progressing, unchanged Assessment/Plan: monitor output from cholecystostomy drain iv abx wound care HD per renal monitor bp- may need to resume bp meds monitor for bleeding transfuse as needed trend wbc monitor lfts monitor lytes Subjective Constitutional: Reports: malaise HEENT: Reports: no symptoms Cardiovascular: Reports: no symptoms Respiratory: Reports: cough Gastrointestinal/Abdominal: Reports: abdominal pain Genitourinary: Reports: no symptoms Neurologic/Psychiatric: Reports: pre-existing deficit Endocrine: Reports: no symptoms Hematologic/Lymphatic: Reports: anemia Allergies: Coded Allergies: ERYTHROMYCIN BASE (Unverified Allergy, Intermediate, 07/14/19) Per patient not allergic to medications or food All Systems: reviewed and negative except above Subjective no complaints. less abd pain. no fever or chills. no sob. tolerating feeds. labs noted. Objective Last 24 Hour Vital Signs Date Time Temp Pulse Resp B/P (MAP) Pulse Ox O2 Delivery O2 Flow Rate FiO2 10/26/19 09:06 89 128/87 10/26/19 09:00 Nasal Cannula 2.0 10/26/19 08:00 98.8 89 20 128/87 (101) 98 10/26/19 07:56 99 Nasal Cannula 2.0 28 10/26/19 05:03 131/64 10/26/19 04:00 98.1 90 18 131/64 (86) 97 10/26/19 00:00 99.4 89 18 128/70 (89) 96 10/25/19 21:56 130/67 10/25/19 20:31 87 130/67 10/25/19 20:22 Nasal Cannula 2.0 10/25/19 20:00 99.1 99 19 136/67 (90) 99 10/25/19 17:26 99 136/74 10/25/19 14:05 136/74 Intake and Output 10/25/19 10/26/19 19:00 07:00 Intake Total 1360 ml 1460 ml Output Total 120 ml Balance 1360 ml 1340 ml Intake Free Water 200 ml 200 ml IV Total 500 ml 600 ml Tube Feeding 660 ml 660 ml Drainage Total 120 ml # Bowel Movements 3 Laboratory Tests 10/26/19 06:25: White Blood Count 6.1, Red Blood Count 2.80L, Hemoglobin 8.1L, Hematocrit 24.7L , Mean Corpuscular Volume 88, Mean Corpuscular Hemoglobin 29.1, Mean Corpuscular Hemoglobin Concent 33.0, Red Cell Distribution Width 15.3H, Platelet Count 249, Mean Platelet Volume 6.0L, Neutrophils (%) (Auto) 78.3H, Lymphocytes (%) (Auto) 10.9L, Monocytes (%) (Auto) 6.4, Eosinophils (%) (Auto) 3.5H, Basophils (%) (Auto) 0.8, Sodium Level 139, Potassium Level 5.3H, Chloride Level 112H, Carbon Dioxide Level 18L, Anion Gap 10, Blood Urea Nitrogen 42H, Creatinine 2.4H, Estimat Glomerular Filtration Rate , Glucose Level 99, Calcium Level 8.1L, Total Bilirubin 0.6, Aspartate Amino Transf (AST/ SGOT) 37, Alanine Aminotransferase (ALT/SGPT) 15, Alkaline Phosphatase 100, Total Protein 5.9L, Albumin 1.5L, Globulin 4.4, Albumin/Globulin Ratio 0.3L Height (Feet): 5 Height (Inches): 1.00 Weight (Pounds): 201 Objective General Appearance: WD/WN, alert Neck: supple Cardiovascular: normal rate, regular rhythm Respiratory/Chest: chest wall non-tender, lungs clear, normal breath sounds Abdomen: normal bowel sounds, soft, no organomegaly, tender Edema: no edema noted Arm (L), no edema noted Arm (R), no edema noted Leg (L), no edema noted Leg (R), no edema noted Pedal (L), no edema noted Pedal (R), no edema noted Generalized Chema Hendricks MD Oct 26, 2019 12:53
[2019-10-26 16:00] VITALS: BP 121/75
--- NOTE | 2019-10-26 16:26 | Surgery Progress Note ---
Surgery Progress Note Subjective Additional Comments Patient seen examined bedside. No acute events. Resting comfortably. Drain still putting out serous fluid likely gallbladder hydrops from cystic duct obstruction as anticipated Objective Last 24 Hour Vital Signs Date Time Temp Pulse Resp B/P (MAP) Pulse Ox O2 Delivery O2 Flow Rate FiO2 10/26/19 16:00 98.9 97 19 121/75 (90) 98 10/26/19 14:05 130/82 10/26/19 12:00 98.6 91 19 130/82 (98) 98 10/26/19 09:06 89 128/87 10/26/19 09:00 Nasal Cannula 2.0 10/26/19 08:00 98.8 89 20 128/87 (101) 98 10/26/19 07:56 99 Nasal Cannula 2.0 28 10/26/19 05:03 131/64 10/26/19 04:00 98.1 90 18 131/64 (86) 97 10/26/19 00:00 99.4 89 18 128/70 (89) 96 10/25/19 21:56 130/67 10/25/19 20:31 87 130/67 10/25/19 20:22 Nasal Cannula 2.0 10/25/19 20:00 99.1 99 19 136/67 (90) 99 10/25/19 17:26 99 136/74 I&O Intake and Output 10/25/19 10/26/19 19:00 07:00 Intake Total 1360 ml 1460 ml Output Total 120 ml Balance 1360 ml 1340 ml Intake Free Water 200 ml 200 ml IV Total 500 ml 600 ml Tube Feeding 660 ml 660 ml Drainage Total 120 ml # Bowel Movements 3 Dressing: other Wound: other Drains: other Cardiovascular: RSR Respiratory: clear Abdomen: soft, non-tender, present bowel sounds, non-distended Extremities: no edema, no tenderness, no cyanosis, other Laboratory Tests Test 10/26/19 06:25 White Blood Count 6.1 K/UL (4.8-10.8) Red Blood Count 2.80 M/UL (4.20-5.40) L Hemoglobin 8.1 G/DL (12.0-16.0) L Hematocrit 24.7 % (37.0-47.0) L Mean Corpuscular Volume 88 FL (80-99) Mean Corpuscular Hemoglobin 29.1 PG (27.0-31.0) Mean Corpuscular Hemoglobin Concent 33.0 G/DL (32.0-36.0) Red Cell Distribution Width 15.3 % (11.6-14.8) H Platelet Count 249 K/UL (150-450) Mean Platelet Volume 6.0 FL (6.5-10.1) L Neutrophils (%) (Auto) 78.3 % (45.0-75.0) H Lymphocytes (%) (Auto) 10.9 % (20.0-45.0) L Monocytes (%) (Auto) 6.4 % (1.0-10.0) Eosinophils (%) (Auto) 3.5 % (0.0-3.0) H Basophils (%) (Auto) 0.8 % (0.0-2.0) Sodium Level 139 MMOL/L (136-145) Potassium Level 5.3 MMOL/L (3.5-5.1) H Chloride Level 112 MMOL/L (98-107) H Carbon Dioxide Level 18 MMOL/L (21-32) L Anion Gap 10 mmol/L (5-15) Blood Urea Nitrogen 42 mg/dL (7-18) H Creatinine 2.4 MG/DL (0.55-1.30) H Estimat Glomerular Filtration Rate mL/min (>60) Glucose Level 99 MG/DL (74-106) Calcium Level 8.1 MG/DL (8.5-10.1) L Total Bilirubin 0.6 MG/DL (0.2-1.0) Aspartate Amino Transf (AST/SGOT) 37 U/L (15-37) Alanine Aminotransferase (ALT/SGPT) 15 U/L (12-78) Alkaline Phosphatase 100 U/L (46-116) Total Protein 5.9 G/DL (6.4-8.2) L Albumin 1.5 G/DL (3.4-5.0) L Globulin 4.4 g/dL Albumin/Globulin Ratio 0.3 (1.0-2.7) L Plan Problems: (1) Lactic acid acidosis Assessment & Plan: Patient noted to have leukocytosis, fevers, abdominal wall cellulitis, lactic acidosis. Abnormal labs. Etiology and work-up continuing currently with microbiology pending and on IV antibiotics Leukocytosis Elevated LFTs. Imaging noted. Unlikely cholecystitis but potential passed stone. Will discuss with GI for considerations of MRCP versus ERCP versus monitoring Local care being provided. Imaging noted Pt presented on admission with partially opened DTPI Sacrum.Base of wound extends from sacrum to R and L buttocks and is maroon with #3 small openings , each with slough at mid sacral area. Pt grimaced when affected area minimally palpated. Non-blanching erythema noted to R and L ischial regions. Moisture Intertrigo with surrounding erythema and denuded skin noted to R and L breasts. Mild odor noted each skin folds of breasts.Small amt sanguineous exudate noted from L breast. Mons pubis,labia majora, and medial aspects of both upper thighs erythematous and denuded. R ad L heels are firm and blanchable. Tx.Plan: [place] Liquid Skin Repair to R and L breasts(x1 application) applied to folds of each breasts. Apply Moisture Barrier paste to perineum with each incontinence care. Apply Moisture Barrier Paste to Sacrum.Cover with Optifoam drsgs. Change every 3 days and prn. APM/SIM Mattress overlay. Reposition at least every 2 hours or as tolerated. Off-load heels with pillow. (2) Sepsis Assessment & Plan: 73-year-old female with sepsis, lactic acidosis, renal insufficiency, cellulitis, leukocytosis. Febrile, hemodynamically stable, exam as above Coordinated with radiology for urgent temporary even as catheter insertion. Placed today and will discuss with nephrology for dialysis Antibiotics as per infectious disease Trend labs IV fluid resuscitation Dense consolidation in the posterior right lower lobe, likely pneumonia Liquid stool in the proximal colon, could indicate diarrheal illness Trace free intraperitoneal fluid Slight hepatic atrophy and surface nodularity raising possibility of cirrhotic change Small lesser sac varices and splenomegaly raises possibility of portal hypertension Pericardial effusion, also evident previously abd wall cellulitis superficial and lumps likely prior injection sites and not infected. cholelithiasis unlikely etiology lft's trending down cameron/lip pancreatitis chemical CT noted cont abx s/p juan tube and drain HIDA positive MRCP Findings: There is mild ascites. There is nodularity of the liver surface. Gallbladder is distended. There is thickening of the gallbladder wall and multiple gallstones. There is no evidence of intrahepatic biliary ductal dilatation. CBD is normal in caliber measuring about 4 mm. There are a few cysts within both kidneys. There is a small right pleural effusion trace left pleural effusion. The spleen is prominent. IMPRESSION: No biliary ductal dilatation or evidence of choledocholithiasis Cholelithiasis. Cirrhosis of the liver with signs of portal hypertension including ascites and splenomegaly. Small bilateral renal cysts Small right pleural effusion. Trace left pleural effusion. We will follow with recommendations cholecystostomy tube placement Thank you for allowing me to participate in patient care Kirk Em Oct 26, 2019 16:26
--- NOTE | 2019-10-26 19:08 | NUR ---
HAND-OFF: Report given to ENRIQUE Joy.
--- NOTE | 2019-10-26 19:34 | NUR ---
NURSE NOTES: Received patient comfortably resting in bed, tolerating her g-tube feeding well, and kept clean and dry.
[2019-10-26 20:00] VITALS: BP 132/71
[2019-10-26] MEDS: Dyna-Hex 2% Top Sol 2oz TOPIC SCH (20:26)
--- NOTE | 2019-10-26 21:57 | General Progress Note ---
Assessment/Plan Status: stable, progressing, unchanged Assessment/Plan: Assessment/Plan Status: unchanged Assessment/Plan: 1. Chronic kidney disease. 2. Hypertension. 3. CHF. 4. Dysphagia with a G-tube. 5. History of sepsis. 6. Anemia. 7. Hepatitis C. 8. Pneumonia. 9. cirrhosis. 10. gallstones, s/p cholecystostomy 11. ascites Recommendations GTF running abx will fu Subjective Allergies: Coded Allergies: ERYTHROMYCIN BASE (Unverified Allergy, Intermediate, 07/14/19) Per patient not allergic to medications or food Subjective Feels OK no abd complaints Objective Last 24 Hour Vital Signs Date Time Temp Pulse Resp B/P (MAP) Pulse Ox O2 Delivery O2 Flow Rate FiO2 10/26/19 20:55 90 132/71 10/26/19 20:55 132/71 10/26/19 20:16 Nasal Cannula 2.0 10/26/19 20:00 98.5 90 20 132/71 (91) 98 10/26/19 17:21 97 121/75 10/26/19 16:00 98.9 97 19 121/75 (90) 98 10/26/19 14:05 130/82 10/26/19 12:00 98.6 91 19 130/82 (98) 98 10/26/19 09:06 89 128/87 10/26/19 09:00 Nasal Cannula 2.0 10/26/19 08:00 98.8 89 20 128/87 (101) 98 10/26/19 07:56 99 Nasal Cannula 2.0 28 10/26/19 05:03 131/64 10/26/19 04:00 98.1 90 18 131/64 (86) 97 10/26/19 00:00 99.4 89 18 128/70 (89) 96 Intake and Output 10/25/19 10/26/19 19:00 07:00 Intake Total 1360 ml 1460 ml Output Total 120 ml Balance 1360 ml 1340 ml Intake Free Water 200 ml 200 ml IV Total 500 ml 600 ml Tube Feeding 660 ml 660 ml Drainage Total 120 ml # Bowel Movements 3 Laboratory Tests 10/26/19 06:25: White Blood Count 6.1, Red Blood Count 2.80L, Hemoglobin 8.1L, Hematocrit 24.7L , Mean Corpuscular Volume 88, Mean Corpuscular Hemoglobin 29.1, Mean Corpuscular Hemoglobin Concent 33.0, Red Cell Distribution Width 15.3H, Platelet Count 249, Mean Platelet Volume 6.0L, Neutrophils (%) (Auto) 78.3H, Lymphocytes (%) (Auto) 10.9L, Monocytes (%) (Auto) 6.4, Eosinophils (%) (Auto) 3.5H, Basophils (%) (Auto) 0.8, Sodium Level 139, Potassium Level 5.3H, Chloride Level 112H, Carbon Dioxide Level 18L, Anion Gap 10, Blood Urea Nitrogen 42H, Creatinine 2.4H, Estimat Glomerular Filtration Rate , Glucose Level 99, Calcium Level 8.1L, Total Bilirubin 0.6, Aspartate Amino Transf (AST/ SGOT) 37, Alanine Aminotransferase (ALT/SGPT) 15, Alkaline Phosphatase 100, Total Protein 5.9L, Albumin 1.5L, Globulin 4.4, Albumin/Globulin Ratio 0.3L Height (Feet): 5 Height (Inches): 1.00 Weight (Pounds): 201 Objective Debilitated AA woman NCAT supple CTA RR Abd Distended, NT, (+) GT, (+) drain tube no edema Mina Rao MD Oct 26, 2019 21:57
[2019-10-27 00:18] VITALS: BP 143/64
--- NOTE | 2019-10-27 01:30 | Progress Note ---
DATE: 10/26/2019 IMPRESSION: Biliary pancreatitis. PLAN: Replace electrolytes as needed. Hemodialysis with ultrafiltration. Lance Rivas M.D. DR: BRAVO JOB#: [id number] CC:
--- NOTE | 2019-10-27 03:00 | Progress Note ---
DATE: 10/27/2019 SUBJECTIVE: . Abdominal pain has decreased. PHYSICAL EXAMINATION: VITAL SIGNS: Blood pressure 207/100, heart rate 90, respiratory rate 20. No fevers. O2 saturation 98% on 2 L. LUNGS: Diminished breath sounds. CARDIAC: Regular rhythm and rate. Normal S1 and S2 with a fourth heart sound. ABDOMEN: Soft. No focal tenderness. G-tube and cholecystostomy tube intact. LABORATORY DATA: Chest x-ray yesterday was negative for decreased congestive heart failure, but persistently mild pulmonary venous congestion. Sodium 139, potassium 5.3, bicarb 18, BUN 42, and creatinine 2.4. Albumin 1.5. White count 6.1 and hemoglobin 8.1. IMPRESSION: Slow progress and improving, but has multiple comorbidities and active medical issues as well as multiple indwelling tubes and catheters. PLAN: 1. Continue current therapy. 2. Follow up hepatobiliary enzymes. 3. Once drainage decrease, can pull cholecystostomy tube. 4. Cardiovascular regimen reviewed. Lacne Rivas M.D. DR: BRAVO JOB#: [id number] CC:
[2019-10-27 04:05] VITALS: BP 136/77
[2019-10-27] MEDS: HydrALAZINE 50mg tab GT SCH ×3 (05:35→22:00)
[2019-10-27 06:41] LABS: BASOPHILS % (AUTO) 1.2 % (0.0-2.0); EOSINOPHILS % (AUTO) 3.6 % (0.0-3.0); HEMATOCRIT 26.9 % (37.0-47.0); HEMOGLOBIN 8.6 G/DL (12.0-16.0); LYMPHOCYTES % (AUTO) 9.2 % (20.0-45.0); MEAN CORPUSCULAR VOLUME 90 FL (80-99); MONOCYTES % (AUTO) 6.1 % (1.0-10.0); NEUTROPHILS % (AUTO) 79.8 % (45.0-75.0); PLATELET COUNT 260 K/UL (150-450); RED CELL DISTRIBUTION WIDTH 15.3 % (11.6-14.8); WHITE BLOOD COUNT 6.5 K/UL (4.8-10.8)
[2019-10-27 07:04] LABS: ANION GAP 12 mmol/L (5-15); BLOOD UREA NITROGEN 39 mg/dL (7-18); CALCIUM 8.8 MG/DL (8.5-10.1); CARBON DIOXIDE 18 MMOL/L (21-32); CHLORIDE 112 MMOL/L (98-107); CREATININE 2.3 MG/DL (0.55-1.30); POTASSIUM 5.8 MMOL/L (3.5-5.1); SODIUM 142 MMOL/L (136-145)
--- NOTE | 2019-10-27 07:18 | NUR ---
HAND-OFF: Report given to Young Kapoor RN.
--- NOTE | 2019-10-27 07:48 | NUR ---
NURSE NOTES: Received pt in bed, sleeping. On NC 2L/min. No s/s of pain/distress. IV on RIJ intact and patent, with saline lock. G-tube feeding noted. Side rail padded. Bed in the lowest, locked, and alarm on. Call light within reach. Will continue to monitor
[2019-10-27 08:00] VITALS: BP 151/72
--- NOTE | 2019-10-27 08:37 | General Progress Note ---
Assessment/Plan Problem List: (1) Sepsis ICD Codes: A41.9 - Sepsis, unspecified organism SNOMED: 16997655 (2) Lactic acid acidosis ICD Codes: E87.2 - Acidosis SNOMED: 18905160 (3) Anemia ICD Codes: D64.9 - Anemia, unspecified SNOMED: 411933399 (4) Alkalosis, metabolic ICD Codes: E87.3 - Alkalosis, metabolic SNOMED: 6629439 (5) Acidosis ICD Codes: E87.2 - Acidosis SNOMED: 73912899 (6) UTI (urinary tract infection) ICD Codes: N39.0 - Urinary tract infection, site not specified SNOMED: 58609998 (7) Acute renal failure (ARF) ICD Codes: N17.9 - Acute kidney failure, unspecified SNOMED: 68508380 Status: stable, progressing, unchanged Assessment/Plan: monitor output from cholecystostomy drain iv abx wound care HD per renal monitor bp- may need to resume bp meds monitor for bleeding transfuse as needed trend wbc monitor lfts kayexylate x 1 ?dc HD catheter Subjective ROS Limited/Unobtainable: Yes Constitutional: Reports: no symptoms HEENT: Reports: no symptoms Cardiovascular: Reports: no symptoms Respiratory: Reports: no symptoms Gastrointestinal/Abdominal: Reports: no symptoms Genitourinary: Reports: no symptoms Neurologic/Psychiatric: Reports: pre-existing deficit Endocrine: Reports: no symptoms Hematologic/Lymphatic: Reports: anemia Allergies: Coded Allergies: ERYTHROMYCIN BASE (Unverified Allergy, Intermediate, 07/14/19) Per patient not allergic to medications or food All Systems: reviewed and negative except above Subjective no complaints. abd pain better. no fever or chills. no sob. tolerating feeds. labs noted. Objective Last 24 Hour Vital Signs Date Time Temp Pulse Resp B/P (MAP) Pulse Ox O2 Delivery O2 Flow Rate FiO2 10/27/19 08:00 97.9 87 18 151/72 (98) 100 10/27/19 05:35 136/77 10/27/19 04:05 97.2 87 20 136/77 (96) 96 10/27/19 00:18 98.2 90 20 143/64 (90) 99 10/26/19 20:55 90 132/71 10/26/19 20:55 132/71 10/26/19 20:16 Nasal Cannula 2.0 10/26/19 20:00 98.5 90 20 132/71 (91) 98 10/26/19 17:21 97 121/75 10/26/19 16:00 98.9 97 19 121/75 (90) 98 10/26/19 14:05 130/82 10/26/19 12:00 98.6 91 19 130/82 (98) 98 10/26/19 09:06 89 128/87 10/26/19 09:00 Nasal Cannula 2.0 Intake and Output 10/26/19 10/27/19 19:00 07:00 Intake Total 460 ml 1110 ml Output Total 90 ml 60 ml Balance 370 ml 1050 ml Intake Free Water 200 ml IV Total 405 ml 250 ml Tube Feeding 55 ml 660 ml Drainage Total 90 ml 60 ml # Voids 8 4 # Bowel Movements 2 2 Laboratory Tests 10/27/19 05:30: White Blood Count 6.5, Red Blood Count 3.00L, Hemoglobin 8.6L, Hematocrit 26.9L , Mean Corpuscular Volume 90, Mean Corpuscular Hemoglobin 28.8, Mean Corpuscular Hemoglobin Concent 32.1, Red Cell Distribution Width 15.3H, Platelet Count 260, Mean Platelet Volume 6.1L, Neutrophils (%) (Auto) 79.8H, Lymphocytes (%) (Auto) 9.2L, Monocytes (%) (Auto) 6.1, Eosinophils (%) (Auto) 3.6H, Basophils (%) (Auto) 1.2, Sodium Level 142, Potassium Level 5.8H, Chloride Level 112H, Carbon Dioxide Level 18L, Anion Gap 12, Blood Urea Nitrogen 39H, Creatinine 2.3H, Estimat Glomerular Filtration Rate , Glucose Level 75, Calcium Level 8.8, Pro-B-Type Natriuretic Peptide 5170H Height (Feet): 5 Height (Inches): 1.00 Weight (Pounds): 203 Objective General Appearance: WD/WN, alert Neck: supple Cardiovascular: normal rate, regular rhythm Respiratory/Chest: chest wall non-tender, lungs clear, normal breath sounds Abdomen: normal bowel sounds, soft, no organomegaly, tender Edema: no edema noted Arm (L), no edema noted Arm (R), no edema noted Leg (L), no edema noted Leg (R), no edema noted Pedal (L), no edema noted Pedal (R), no edema noted Generalized Chema Hendricks MD Oct 27, 2019 08:37
[2019-10-27] MEDS: Metoprolol Tartrate 50mg tab GT SCH ×2 (08:47→21:04)
[2019-10-27] MEDS: Meropenem 500 MG in NS 55 ML IVPB SCH (08:48)
--- NOTE | 2019-10-27 09:59 | General Progress Note ---
Assessment/Plan Status: stable, progressing, unchanged Assessment/Plan: 1. Chronic kidney disease. 2. Hypertension. 3. CHF. 4. Dysphagia with a G-tube. 5. History of sepsis. 6. Anemia. 7. Hepatitis C. 8. Pneumonia. 9. cirrhosis. 10. gallstones 11. ascites s/p cholecystostomy tube placement imodium prn for diarrhea GTF running abx will fu Subjective ROS Limited/Unobtainable: No Allergies: Coded Allergies: ERYTHROMYCIN BASE (Unverified Allergy, Intermediate, 07/14/19) Per patient not allergic to medications or food Subjective diarrhea Objective Last 24 Hour Vital Signs Date Time Temp Pulse Resp B/P (MAP) Pulse Ox O2 Delivery O2 Flow Rate FiO2 10/27/19 08:48 87 151/72 10/27/19 08:47 87 151/72 10/27/19 08:00 97.9 87 18 151/72 (98) 100 10/27/19 05:35 136/77 10/27/19 04:05 97.2 87 20 136/77 (96) 96 10/27/19 00:18 98.2 90 20 143/64 (90) 99 10/26/19 20:55 90 132/71 10/26/19 20:55 132/71 10/26/19 20:16 Nasal Cannula 2.0 10/26/19 20:00 98.5 90 20 132/71 (91) 98 10/26/19 17:21 97 121/75 10/26/19 16:00 98.9 97 19 121/75 (90) 98 10/26/19 14:05 130/82 10/26/19 12:00 98.6 91 19 130/82 (98) 98 Intake and Output 10/26/19 10/27/19 19:00 07:00 Intake Total 460 ml 1110 ml Output Total 90 ml 60 ml Balance 370 ml 1050 ml Intake Free Water 200 ml IV Total 405 ml 250 ml Tube Feeding 55 ml 660 ml Drainage Total 90 ml 60 ml # Voids 8 4 # Bowel Movements 2 2 Laboratory Tests 10/27/19 05:30: White Blood Count 6.5, Red Blood Count 3.00L, Hemoglobin 8.6L, Hematocrit 26.9L , Mean Corpuscular Volume 90, Mean Corpuscular Hemoglobin 28.8, Mean Corpuscular Hemoglobin Concent 32.1, Red Cell Distribution Width 15.3H, Platelet Count 260, Mean Platelet Volume 6.1L, Neutrophils (%) (Auto) 79.8H, Lymphocytes (%) (Auto) 9.2L, Monocytes (%) (Auto) 6.1, Eosinophils (%) (Auto) 3.6H, Basophils (%) (Auto) 1.2, Sodium Level 142, Potassium Level 5.8H, Chloride Level 112H, Carbon Dioxide Level 18L, Anion Gap 12, Blood Urea Nitrogen 39H, Creatinine 2.3H, Estimat Glomerular Filtration Rate , Glucose Level 75, Calcium Level 8.8, Pro-B-Type Natriuretic Peptide 5170H Height (Feet): 5 Height (Inches): 1.00 Weight (Pounds): 203 General Appearance: no apparent distress EENT: normal ENT inspection Neck: supple Cardiovascular: normal rate Respiratory/Chest: decreased breath sounds Abdomen: normal bowel sounds, non tender, soft Extremities: non-tender David Bosch MD Oct 27, 2019 09:59
[2019-10-27 12:00] VITALS: BP 142/80
[2019-10-27] MEDS ORDERED: Sodium Polystyrene Sulfonate 15gm Powder ORAL SCH (13:30)
--- NOTE | 2019-10-27 13:33 | Surgery Progress Note ---
Surgery Progress Note Subjective Symptoms: improved Additional Comments drain serous less output Objective Last 24 Hour Vital Signs Date Time Temp Pulse Resp B/P (MAP) Pulse Ox O2 Delivery O2 Flow Rate FiO2 10/27/19 12:00 98.3 79 18 142/80 (100) 99 10/27/19 09:00 Nasal Cannula 2.0 10/27/19 08:48 87 151/72 10/27/19 08:47 87 151/72 10/27/19 08:00 97.9 87 18 151/72 (98) 100 10/27/19 05:35 136/77 10/27/19 04:05 97.2 87 20 136/77 (96) 96 10/27/19 00:18 98.2 90 20 143/64 (90) 99 10/26/19 20:55 90 132/71 10/26/19 20:55 132/71 10/26/19 20:16 Nasal Cannula 2.0 10/26/19 20:00 98.5 90 20 132/71 (91) 98 10/26/19 17:21 97 121/75 10/26/19 16:00 98.9 97 19 121/75 (90) 98 10/26/19 14:05 130/82 I&O Intake and Output 10/26/19 10/27/19 19:00 07:00 Intake Total 460 ml 1110 ml Output Total 90 ml 60 ml Balance 370 ml 1050 ml Intake Free Water 200 ml IV Total 405 ml 250 ml Tube Feeding 55 ml 660 ml Drainage Total 90 ml 60 ml # Voids 8 4 # Bowel Movements 2 2 Dressing: other Wound: other Drains: other Cardiovascular: RSR Respiratory: decreased breath sounds Abdomen: soft, non-tender, present bowel sounds, non-distended Extremities: no tenderness, no cyanosis, other Laboratory Tests Test 10/27/19 05:30 White Blood Count 6.5 K/UL (4.8-10.8) Red Blood Count 3.00 M/UL (4.20-5.40) L Hemoglobin 8.6 G/DL (12.0-16.0) L Hematocrit 26.9 % (37.0-47.0) L Mean Corpuscular Volume 90 FL (80-99) Mean Corpuscular Hemoglobin 28.8 PG (27.0-31.0) Mean Corpuscular Hemoglobin Concent 32.1 G/DL (32.0-36.0) Red Cell Distribution Width 15.3 % (11.6-14.8) H Platelet Count 260 K/UL (150-450) Mean Platelet Volume 6.1 FL (6.5-10.1) L Neutrophils (%) (Auto) 79.8 % (45.0-75.0) H Lymphocytes (%) (Auto) 9.2 % (20.0-45.0) L Monocytes (%) (Auto) 6.1 % (1.0-10.0) Eosinophils (%) (Auto) 3.6 % (0.0-3.0) H Basophils (%) (Auto) 1.2 % (0.0-2.0) Sodium Level 142 MMOL/L (136-145) Potassium Level 5.8 MMOL/L (3.5-5.1) H Chloride Level 112 MMOL/L (98-107) H Carbon Dioxide Level 18 MMOL/L (21-32) L Anion Gap 12 mmol/L (5-15) Blood Urea Nitrogen 39 mg/dL (7-18) H Creatinine 2.3 MG/DL (0.55-1.30) H Estimat Glomerular Filtration Rate mL/min (>60) Glucose Level 75 MG/DL (74-106) Calcium Level 8.8 MG/DL (8.5-10.1) Pro-B-Type Natriuretic Peptide 5170 pg/mL (0-125) H Plan Problems: (1) Lactic acid acidosis Assessment & Plan: Patient noted to have leukocytosis, fevers, abdominal wall cellulitis, lactic acidosis. Abnormal labs. Etiology and work-up continuing currently with microbiology pending and on IV antibiotics Leukocytosis Elevated LFTs. Imaging noted. Unlikely cholecystitis but potential passed stone. Will discuss with GI for considerations of MRCP versus ERCP versus monitoring Local care being provided. Imaging noted Pt presented on admission with partially opened DTPI Sacrum.Base of wound extends from sacrum to R and L buttocks and is maroon with #3 small openings , each with slough at mid sacral area. Pt grimaced when affected area minimally palpated. Non-blanching erythema noted to R and L ischial regions. Moisture Intertrigo with surrounding erythema and denuded skin noted to R and L breasts. Mild odor noted each skin folds of breasts.Small amt sanguineous exudate noted from L breast. Mons pubis,labia majora, and medial aspects of both upper thighs erythematous and denuded. R ad L heels are firm and blanchable. Tx.Plan: [place] Liquid Skin Repair to R and L breasts(x1 application) applied to folds of each breasts. Apply Moisture Barrier paste to perineum with each incontinence care. Apply Moisture Barrier Paste to Sacrum.Cover with Optifoam drsgs. Change every 3 days and prn. APM/SIM Mattress overlay. Reposition at least every 2 hours or as tolerated. Off-load heels with pillow. (2) Sepsis Assessment & Plan: 73-year-old female with sepsis, lactic acidosis, renal insufficiency, cellulitis, leukocytosis. Febrile, hemodynamically stable, exam as above Coordinated with radiology for urgent temporary even as catheter insertion. Placed today and will discuss with nephrology for dialysis Antibiotics as per infectious disease Trend labs IV fluid resuscitation Dense consolidation in the posterior right lower lobe, likely pneumonia Liquid stool in the proximal colon, could indicate diarrheal illness Trace free intraperitoneal fluid Slight hepatic atrophy and surface nodularity raising possibility of cirrhotic change Small lesser sac varices and splenomegaly raises possibility of portal hypertension Pericardial effusion, also evident previously abd wall cellulitis superficial and lumps likely prior injection sites and not infected. cholelithiasis unlikely etiology lft's trending down cameron/lip pancreatitis chemical CT noted cont abx s/p juan tube and drain HIDA positive MRCP Findings: There is mild ascites. There is nodularity of the liver surface. Gallbladder is distended. There is thickening of the gallbladder wall and multiple gallstones. There is no evidence of intrahepatic biliary ductal dilatation. CBD is normal in caliber measuring about 4 mm. There are a few cysts within both kidneys. There is a small right pleural effusion trace left pleural effusion. The spleen is prominent. IMPRESSION: No biliary ductal dilatation or evidence of choledocholithiasis Cholelithiasis. Cirrhosis of the liver with signs of portal hypertension including ascites and splenomegaly. Small bilateral renal cysts Small right pleural effusion. Trace left pleural effusion. We will follow with recommendations cholecystostomy tube placement Thank you for allowing me to participate in patient care Kirk Em Oct 27, 2019 13:33
[2019-10-27] MEDS: Sodium Citrate 30ml GT SCH ×2 (14:02→17:51)
[2019-10-27 16:00] VITALS: BP 100/80
--- NOTE | 2019-10-27 16:17 | Nephrology Progress Note ---
Assessment/Plan Problem List: (1) Healthcare-associated pneumonia (2) Anemia in chronic kidney disease (3) CKD (chronic kidney disease) stage 5, GFR less than 15 ml/min (4) Abdominal pain in female (5) CHF exacerbation (6) Sepsis (7) Ascites (8) Cirrhosis (9) Hyperkalemia Plan nonoliguric, hold off dialysis,, cont rxx esbl sepsis, US cholelithiasis--might be source of sepsis, also cirrhosis and ascites, creat lower, K 5.8 rx lasix, add bicitra Subjective Constitutional: Reports: weakness HEENT: Reports: no symptoms Genitourinary: Reports: incontinence Subjective feels better no sob abd pain Objective Objective Last 24 Hour Vital Signs Date Time Temp Pulse Resp B/P (MAP) Pulse Ox O2 Delivery O2 Flow Rate FiO2 10/27/19 14:02 142/80 10/27/19 12:00 98.3 79 18 142/80 (100) 99 10/27/19 09:00 Nasal Cannula 2.0 10/27/19 08:48 87 151/72 10/27/19 08:47 87 151/72 10/27/19 08:00 97.9 87 18 151/72 (98) 100 10/27/19 05:35 136/77 10/27/19 04:05 97.2 87 20 136/77 (96) 96 10/27/19 00:18 98.2 90 20 143/64 (90) 99 10/26/19 20:55 90 132/71 10/26/19 20:55 132/71 10/26/19 20:16 Nasal Cannula 2.0 10/26/19 20:00 98.5 90 20 132/71 (91) 98 10/26/19 17:21 97 121/75 Intake and Output 10/26/19 10/27/19 19:00 07:00 Intake Total 460 ml 1110 ml Output Total 90 ml 60 ml Balance 370 ml 1050 ml Intake Free Water 200 ml IV Total 405 ml 250 ml Tube Feeding 55 ml 660 ml Drainage Total 90 ml 60 ml # Voids 8 4 # Bowel Movements 2 2 Laboratory Tests 10/27/19 05:30: White Blood Count 6.5, Red Blood Count 3.00L, Hemoglobin 8.6L, Hematocrit 26.9L , Mean Corpuscular Volume 90, Mean Corpuscular Hemoglobin 28.8, Mean Corpuscular Hemoglobin Concent 32.1, Red Cell Distribution Width 15.3H, Platelet Count 260, Mean Platelet Volume 6.1L, Neutrophils (%) (Auto) 79.8H, Lymphocytes (%) (Auto) 9.2L, Monocytes (%) (Auto) 6.1, Eosinophils (%) (Auto) 3.6H, Basophils (%) (Auto) 1.2, Sodium Level 142, Potassium Level 5.8H, Chloride Level 112H, Carbon Dioxide Level 18L, Anion Gap 12, Blood Urea Nitrogen 39H, Creatinine 2.3H, Estimat Glomerular Filtration Rate , Glucose Level 75, Calcium Level 8.8, Pro-B-Type Natriuretic Peptide 5170H Height (Feet): 5 Height (Inches): 1.00 Weight (Pounds): 203 General Appearance: morbidly obese EENT: normal ENT inspection Neck: normal alignment Cardiovascular: normal rate, regular rhythm Respiratory/Chest: lungs clear, normal breath sounds Abdomen: non tender Extremities: no edema 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
--- NOTE | 2019-10-27 19:30 | NUR ---
HAND-OFF: Report given to ENRIQUE Centeno.
[2019-10-27 20:00] VITALS: BP 133/75
--- NOTE | 2019-10-27 20:30 | NUR ---
NURSE NOTES: RECEIVED PT FROM ENRIQUE WALL. PT IS AWAKE, AAOX3, ON ROOM AIR, NO ACUTE DISTRESS NOTED. G-TUBE IS INTACT AND PATENT, FLUSHING WELL, NO RESIDUALS. FEEDING RUNNING VITAL AF 1.8 AT 55ML/HR. PT IS TOLERATING FEEDING WELL. WOUND DRESSINGS INTACT AND DRY. IV IS INTACT AND PATENT. BED IS LOCKED AND LOW, BED ALARMS ACTIVE, SIDE RAILS UP X2, SIDE RAILS PADDED AND CALL LIGHT IS WITHIN REACH. WILL CONTINUE TO MONITOR.
[2019-10-27] MEDS: Dyna-Hex 2% Top Sol 2oz TOPIC SCH (20:47)
[2019-10-28] VITALS: BP 132/81
--- NOTE | 2019-10-28 03:00 | Progress Note ---
DATE: 10/27/2019 CARDIOLOGY PROGRESS NOTE SUBJECTIVE: The patient has no new complaints. Pain is better in the abdomen. OBJECTIVE: VITAL SIGNS: Blood pressure 151/72, pulse 87, respirations 18. LUNGS: Bilateral breath sounds. CARDIAC: Regular rhythm rate. Normal S1, S2. There is no rub. ABDOMEN: Soft. Cholecystostomy tube, NG tube are in place. EXTREMITIES: No edema. Right chest wall dialysis catheter site clean and dry. IMPRESSION: 1. Hypertensive heart disease. 2. History of pericardial effusion, no signs of recurrence. 3. Hypothyroidism, on replacement. 4. Chronic kidney disease. 5. Acute cholecystitis, status post cholecystostomy. 6. Mild hyperkalemia. 7. Anemia of chronic kidney disease. PLAN: 1. Antimicrobials. 2. Tube drainage. 3. Hemodialysis with ultrafiltration. 4. Titrate antihypertensives. 5. Kayexalate as needed for elevated potassium. 6. Epogen and iron replacement with transfusion if needed for significantly low hemoglobin level. Lance Rivas M.D. DR: MELVA JOB#: [id number] CC:
[2019-10-28 04:00] VITALS: BP 139/70
[2019-10-28] MEDS: HydrALAZINE 50mg tab GT SCH ×2 (05:48→14:00)
--- NOTE | 2019-10-28 07:26 | NUR ---
DISCHARGE PLANNING CLINICALS HAVE BEEN FAXED TO [facility] T: [phone]
[2019-10-28 07:28] LABS: ANION GAP 11 mmol/L (5-15); BLOOD UREA NITROGEN 38 mg/dL (7-18); CALCIUM 8.6 MG/DL (8.5-10.1); CARBON DIOXIDE 22 MMOL/L (21-32); CHLORIDE 112 MMOL/L (98-107); CREATININE 2.3 MG/DL (0.55-1.30); POTASSIUM 5.6 MMOL/L (3.5-5.1); SODIUM 145 MMOL/L (136-145)
[2019-10-28 07:34] LABS: BASOPHILS % (AUTO) 0.5 % (0.0-2.0); HEMATOCRIT 27.9 % (37.0-47.0); LYMPHOCYTES % (AUTO) 8.4 % (20.0-45.0); MEAN CORPUSCULAR VOLUME 90 FL (80-99); MONOCYTES % (AUTO) 4.1 % (1.0-10.0); PLATELET COUNT 248 K/UL (150-450); RED BLOOD COUNT 3.11 M/UL (4.20-5.40); RED CELL DISTRIBUTION WIDTH 15.2 % (11.6-14.8); WHITE BLOOD COUNT 7.7 K/UL (4.8-10.8)
--- NOTE | 2019-10-28 07:43 | NUR ---
HAND-OFF: Report given to ENRIQUE LEMUS. Patient is in stable condition. Endorsed plan of care.
[2019-10-28 08:00] VITALS: BP 149/69
--- NOTE | 2019-10-28 08:00 | NUR ---
NURSE NOTES: Patient alert to name, respirations unlabored .02 on at 2L N/C..G-tube feedings as ordered. No residual noted at this time. HOB is elevated.Drainage catheter noted to abdomen with brown color liquid noted. Right IJ catheter noted intact.Bed alarm is on,call light within reach.
--- NOTE | 2019-10-28 09:07 | General Progress Note ---
Assessment/Plan Status: stable, progressing, unchanged Assessment/Plan: 1. Chronic kidney disease. 2. Hypertension. 3. CHF. 4. Dysphagia with a G-tube. 5. History of sepsis. 6. Anemia. 7. Hepatitis C. 8. Pneumonia. 9. cirrhosis. 10. gallstones 11. ascites s/p cholecystostomy tube placement Imodium prn for diarrhea GTF running abx will fu repeat labs neg stool ob Subjective ROS Limited/Unobtainable: No Allergies: Coded Allergies: ERYTHROMYCIN BASE (Unverified Allergy, Intermediate, 07/14/19) Per patient not allergic to medications or food Subjective diarrhea Objective Last 24 Hour Vital Signs Date Time Temp Pulse Resp B/P (MAP) Pulse Ox O2 Delivery O2 Flow Rate FiO2 10/28/19 05:48 114/86 10/28/19 04:00 98.0 86 18 139/70 (93) 97 10/28/19 00:00 98.2 85 18 132/81 (98) 98 10/27/19 22:00 131/78 10/27/19 21:04 86 133/75 10/27/19 21:00 Nasal Cannula 2.0 10/27/19 20:00 97 Nasal Cannula 2.0 28 10/27/19 20:00 98.9 86 19 133/75 (94) 100 10/27/19 16:48 77 100/80 10/27/19 16:00 98.6 77 18 100/80 (87) 100 10/27/19 14:02 142/80 10/27/19 12:00 98.3 79 18 142/80 (100) 99 Intake and Output 10/27/19 10/28/19 18:59 06:59 Intake Total 55 ml 275 ml Output Total 300 ml 510 ml Balance -245 ml -235 ml Tube Feeding 55 ml 275 ml Output Urine Total 300 ml 500 ml Drainage Total 10 ml # Bowel Movements 2 2 Laboratory Tests 10/28/19 05:37: White Blood Count 7.7, Red Blood Count 3.11L, Hemoglobin 9.0L, Hematocrit 27.9L , Mean Corpuscular Volume 90, Mean Corpuscular Hemoglobin 29.0, Mean Corpuscular Hemoglobin Concent 32.4, Red Cell Distribution Width 15.2H, Platelet Count 248, Mean Platelet Volume 5.6L, Neutrophils (%) (Auto) 84.0H, Lymphocytes (%) (Auto) 8.4L, Monocytes (%) (Auto) 4.1, Eosinophils (%) (Auto) 3.0, Basophils (%) (Auto) 0.5, Sodium Level 145, Potassium Level 5.6H, Chloride Level 112H, Carbon Dioxide Level 22, Anion Gap 11, Blood Urea Nitrogen 38H, Creatinine 2.3H, Estimat Glomerular Filtration Rate , Glucose Level 80, Calcium Level 8.6, Magnesium Level 1.6L Height (Feet): 5 Height (Inches): 1.00 Weight (Pounds): 201 General Appearance: no apparent distress EENT: normal ENT inspection Neck: supple Cardiovascular: normal rate Respiratory/Chest: decreased breath sounds Abdomen: normal bowel sounds, non tender, soft Extremities: non-tender David Bosch MD Oct 28, 2019 09:07
--- NOTE | 2019-10-28 10:13 | NUR ---
RD ASSESSMENT & RECOMMENDATIONS SEE CARE ACTIVITY FOR COMPLETE ASSESSMENT DAILY ESTIMATED NEEDS: Needs based on CKD V, Wound 57.7kg abw 25-30 kcals/kg 5937-6162 total kcals (Without HD:0.8-1.1) (With HD: 1.25-1.8) g protein/kg (Without HD: 46-64) (With HD: 72-104) g total protein Fluid per MD NUTRITION DIAGNOSIS: 1) Altered nutrition related lab values r/t JJ on CKD 4 as evidenced by elev creat (6.8 -> 3.0-> 2.3), elev BUN (119->38), elev K (5.6, 5.8,5.3), elev Na (158 -> wnl), s/p placement of Broderick cath, HD x1. 2) Swallowing difficulty r/t dysphagia as evidenced by GT dep. CURRENT TF:Vital @55ml x24 hrs (provides 2228mg K, exceeds est protein needs by 155%) ENTERAL NUTRITION RECOMMENDATIONS: rec TF change to Nepro @ 35ml/hr x 24 hrs to provide 840ml, 1512kcal, 68g pro, 610ml free water, 890mg K * Rec TF change back to Nepro for less K content (Will provide 1338mg less K than current TF) * HOB over 30 degrees/ water flush per MD IF IV SYNTHROID CHANGES TO GT SYNTHROID: -> Nepro @ 38ml/hr x 22 hrs to provide 836ml, 1505kcal, 67g prot -> Hold 1 hr before and after Synthroid med ADDITIONAL RECOMMENDATIONS: 1) Calibrated bedscale wt for accurate CBW Bed yoycy=221.7# vs initial es=534# 2) Monitor renal fxn (s/p HD x 1 on 10/09, held since) 3) Monitor K -> K consistently elevated, rec TF change back to Nepro 4) Check phos level/ Check f/up lipase level 5) Wound healing: add Nephrovite x 1 + Kael 1pkt BID 6) Add probiotics via GT for +diarrhea, pt on abx
[2019-10-28] MEDS: Sodium Citrate 30ml GT SCH ×2 (10:22→19:28)
[2019-10-28] MEDS: Metoprolol Tartrate 50mg tab GT SCH (10:27)
--- NOTE | 2019-10-28 10:33 | Infectious Diseases Prog Note ---
Assessment/Plan Assessment/Plan antibiotics : meropenem A 1. cholecystitis s/p cholecystostomy with pseudomonas 2. leucocytosis resolved 3. renal failure on HD 4. thrombocytopenia resolved 5. pneumonia 6. Parkinsons disease 7. dementia 8. cirrhosis P 1. continue meropenem 4 more days 2. will follow up cultures Subjective Constitutional: Denies: fever, chills Respiratory: Denies: shortness of breath, dry cough Gastrointestinal/Abdominal: Denies: nausea, vomiting, diarrhea Musculoskeletal: Denies: pain Allergies: Coded Allergies: ERYTHROMYCIN BASE (Unverified Allergy, Intermediate, 07/14/19) Per patient not allergic to medications or food Objective Vital Signs Last 24 Hour Vital Signs Date Time Temp Pulse Resp B/P (MAP) Pulse Ox O2 Delivery O2 Flow Rate FiO2 10/28/19 05:48 114/86 10/28/19 04:00 98.0 86 18 139/70 (93) 97 10/28/19 00:00 98.2 85 18 132/81 (98) 98 10/27/19 22:00 131/78 10/27/19 21:04 86 133/75 10/27/19 21:00 Nasal Cannula 2.0 10/27/19 20:00 97 Nasal Cannula 2.0 28 10/27/19 20:00 98.9 86 19 133/75 (94) 100 10/27/19 16:48 77 100/80 10/27/19 16:00 98.6 77 18 100/80 (87) 100 10/27/19 14:02 142/80 10/27/19 12:00 98.3 79 18 142/80 (100) 99 Height (Feet): 5 Height (Inches): 1.00 Weight (Pounds): 201 Respiratory/Chest: lungs clear Cardiovascular: normal rate, regular rhythm, no gallop/murmur Abdomen: soft, non tender, other - GT, drain Extremities: no edema, other - right IJ catheter Laboratory Tests Test 10/28/19 05:37 White Blood Count 7.7 K/UL (4.8-10.8) Red Blood Count 3.11 M/UL (4.20-5.40) L Hemoglobin 9.0 G/DL (12.0-16.0) L Hematocrit 27.9 % (37.0-47.0) L Mean Corpuscular Volume 90 FL (80-99) Mean Corpuscular Hemoglobin 29.0 PG (27.0-31.0) Mean Corpuscular Hemoglobin Concent 32.4 G/DL (32.0-36.0) Red Cell Distribution Width 15.2 % (11.6-14.8) H Platelet Count 248 K/UL (150-450) Mean Platelet Volume 5.6 FL (6.5-10.1) L Neutrophils (%) (Auto) 84.0 % (45.0-75.0) H Lymphocytes (%) (Auto) 8.4 % (20.0-45.0) L Monocytes (%) (Auto) 4.1 % (1.0-10.0) Eosinophils (%) (Auto) 3.0 % (0.0-3.0) Basophils (%) (Auto) 0.5 % (0.0-2.0) Sodium Level 145 MMOL/L (136-145) Potassium Level 5.6 MMOL/L (3.5-5.1) H Chloride Level 112 MMOL/L (98-107) H Carbon Dioxide Level 22 MMOL/L (21-32) Anion Gap 11 mmol/L (5-15) Blood Urea Nitrogen 38 mg/dL (7-18) H Creatinine 2.3 MG/DL (0.55-1.30) H Estimat Glomerular Filtration Rate mL/min (>60) Glucose Level 80 MG/DL (74-106) Calcium Level 8.6 MG/DL (8.5-10.1) Magnesium Level 1.6 MG/DL (1.8-2.4) L Current Medications Medications (Trade) Dose Ordered Sig/Jonathan Route PRN Reason Start Time Stop Time Status Last Admin Dose Admin Acetaminophen (Tylenol) 650 mg Q4H PRN GT Mild Pain/Temp > 100.5 10/20/19 00:30 11/06/19 20:29 10/23/19 18:20 Amlodipine Besylate (Norvasc) 5 mg BID GT 10/20/19 09:00 11/13/19 17:59 10/27/19 08:48 Chlorhexidine Gluconate (Meredith-Hex 2%) 1 applic DAILY@1999 TOPIC 10/20/19 20:00 11/09/19 19:59 10/27/19 20:47 Diphenhydramine HCl (Benadryl) 25 mg Q8H PRN GT Itching 10/20/19 00:30 11/14/19 08:29 Hydralazine HCl (Apresoline) 100 mg Q8HR GT 10/20/19 06:00 11/06/19 21:59 10/27/19 14:02 Lansoprazole (Prevacid) 30 mg DAILY GT 10/20/19 09:00 11/07/19 08:59 10/27/19 08:47 Levothyroxine Sodium (Synthroid) 50 mcg DAILY IV 10/25/19 09:00 11/24/19 08:59 10/27/19 08:47 Loperamide HCl (Imodium) 2 mg Q12H PRN GT Diarrhea 10/20/19 08:30 11/18/19 08:29 10/27/19 08:48 Meropenem 500 mg/ Sodium Chloride 55 ml @ 110 mls/hr Q24H IVPB 10/26/19 09:00 10/31/19 08:59 10/27/19 08:48 Metoclopramide HCl (Reglan) 5 mg Q6H PRN IVP Nausea & Vomiting 10/20/19 04:15 11/16/19 10:14 Metoprolol Tartrate (Lopressor) 50 mg Q12HR GT 10/22/19 21:00 11/15/19 20:59 10/27/19 21:04 Sodium Citrate (Bicitra) 30 ml BID GT 10/27/19 13:30 11/26/19 13:29 10/27/19 17:51 Jessica Reyes MD Oct 28, 2019 10:33
[2019-10-28] MEDS: Meropenem 500 MG in NS 55 ML IVPB SCH (10:35)
[2019-10-28] MEDS ORDERED: Sodium Polystyrene Sulfonate 15gm Powder GT SCH (11:15)
[2019-10-28 12:00] VITALS: BP 134/88
--- NOTE | 2019-10-28 12:50 | NUR ---
NURSE NOTES:WOUND CARE FOLLOW-UP NOTES:Moisture intertrigo noted to skin folds bilat breast, abd folds ,mons pubis,labia majora and medial aspects of both upper thighs. Erythema with moist denuded skin noted to affected areas . Small slit noted to L abdominal folds (L)1.2cm. Sacral wounds resolving. Non-blanching erythema noted to sacrum,R and L buttocks but no open wounds noted. Pt verbalized sacral area tender when minimally palpated. Both heels are soft but blanchable. Tx.Plan: Apply Moisture Barrier Paste to Sacrum. Cover with Optifoam drsg. Change every 3 days and prn. Apply Remedy Antifungal Cream to skin folds both breasts, abdominal folds, Bilat groin and perineum Twice Daily. Apply Cav[place] Skin Barrier to both heels.Cover each heel with Optifoam drsg. Change every 7 days and prn APM/SIM Mattress overlay. Reposition at least every 2hours or as tolerated. Off-load heels with pillow.
[2019-10-28] MEDS ORDERED: Sodium Polystyrene Sulfonate 15gm Powder ORAL SCH (14:45)
[2019-10-28] MEDS ORDERED: APRESOLINE50 MG GT (15:51)
[2019-10-28] MEDS ORDERED: BICITRA30 ML GT (15:51)
[2019-10-28] MEDS ORDERED: METOPROLOL TART50 MG GT (15:51)
[2019-10-28] MEDS ORDERED: NORVASC5 MG GT (15:51)
[2019-10-28] MEDS ORDERED: LANSOPRAZOLE30 MG GT (15:51)
--- NOTE | 2019-10-28 16:36 | NUR ---
NURSE NOTES: DR Em here to see patient ,patient drain is out,dressing was applied to abdomen.No new order given at this time.Dr Em aware that there is a discharge order by DR Hendricks,state okay from his stand point.
--- NOTE | 2019-10-28 16:53 | NUR ---
DISCHARGE PLANNING DISCHARGE ORDER NOTED Patient has been accepted to; [facility] [address] [place] [address] Bed: 16-B Skilled [phone] for Nurse to Nurse report
--- NOTE | 2019-10-28 18:45 | Nephrology Progress Note ---
Assessment/Plan Problem List: (1) Healthcare-associated pneumonia (2) Anemia in chronic kidney disease (3) CKD (chronic kidney disease) stage 5, GFR less than 15 ml/min (4) Abdominal pain in female (5) CHF exacerbation (6) Sepsis (7) Ascites (8) Cirrhosis (9) Hyperkalemia Plan nonoliguric, hold off dialysis,, cont rxx esbl sepsis, US cholelithiasis--might be source of sepsis, s/p cholecystotomy also cirrhosis and ascites, creat lower , K 5.6 rx lasix, add bicitra Subjective Constitutional: Reports: weakness HEENT: Reports: no symptoms Genitourinary: Reports: incontinence Neurologic/Psychiatric: Reports: pre-existing deficit Subjective feels better no sob abd pain Objective Objective Last 24 Hour Vital Signs Date Time Temp Pulse Resp B/P (MAP) Pulse Ox O2 Delivery O2 Flow Rate FiO2 10/28/19 14:00 127/72 10/28/19 12:00 98.2 89 18 134/88 (103) 97 10/28/19 10:27 92 143/79 10/28/19 10:27 92 143/79 10/28/19 09:00 Nasal Cannula 2.0 10/28/19 08:00 84 16 149/69 (95) 99 10/28/19 05:48 114/86 10/28/19 04:00 98.0 86 18 139/70 (93) 97 10/28/19 00:00 98.2 85 18 132/81 (98) 98 10/27/19 22:00 131/78 10/27/19 21:04 86 133/75 10/27/19 21:00 Nasal Cannula 2.0 10/27/19 20:00 97 Nasal Cannula 2.0 28 10/27/19 20:00 98.9 86 19 133/75 (94) 100 Intake and Output 10/27/19 10/28/19 19:00 07:00 Intake Total 55 ml 220 ml Output Total 300 ml 510 ml Balance -245 ml -290 ml Tube Feeding 55 ml 220 ml Output Urine Total 300 ml 500 ml Drainage Total 10 ml # Bowel Movements 2 2 Laboratory Tests 10/28/19 05:37: White Blood Count 7.7, Red Blood Count 3.11L, Hemoglobin 9.0L, Hematocrit 27.9L , Mean Corpuscular Volume 90, Mean Corpuscular Hemoglobin 29.0, Mean Corpuscular Hemoglobin Concent 32.4, Red Cell Distribution Width 15.2H, Platelet Count 248, Mean Platelet Volume 5.6L, Neutrophils (%) (Auto) 84.0H, Lymphocytes (%) (Auto) 8.4L, Monocytes (%) (Auto) 4.1, Eosinophils (%) (Auto) 3.0, Basophils (%) (Auto) 0.5, Sodium Level 145, Potassium Level 5.6H, Chloride Level 112H, Carbon Dioxide Level 22, Anion Gap 11, Blood Urea Nitrogen 38H, Creatinine 2.3H, Estimat Glomerular Filtration Rate , Glucose Level 80, Calcium Level 8.6, Magnesium Level 1.6L Height (Feet): 5 Height (Inches): 1.00 Weight (Pounds): 201 General Appearance: no apparent distress, alert EENT: normal ENT inspection Neck: normal alignment Cardiovascular: normal rate Respiratory/Chest: lungs clear, normal breath sounds Abdomen: soft, no organomegaly Extremities: trace edema Neurologic: motor weakness Jose Lemus MD Oct 28, 2019 18:45
[2019-10-28 19:29] VITALS: BP 125/76
--- NOTE | 2019-10-28 19:30 | NUR ---
NURSE NOTES: RECEIVED PT FROM ENRIQUE LEMUS. AWAITING FOR AMBULANCE ANESTHESIOLOGIST AND CRITICAL CARE. PT IS TO BE DISCHARGE TO [facility] BED 16. PT IS AWAKE, AAOX3, ON NC 2L, NO ACUTE DISTRESS NOTED. G-TUBE FEEDING INTACT AND PATENT, FLUSHING WELL, NO RESIDUALS. WOUND DRESSINGS INTACT AND DRY. PICTURES TAKEN AND UPLOADED. IV ON RIGHT IJ IS INTACT AND PATENT. BED IS LOCKED AND LOW, BED ALARMS ACTIVE, SIDE RAILS UP X2, AND CALL LIGHT IS WITHIN REACH. WILL CONTINUE TO MONITOR.
--- NOTE | 2019-10-28 20:00 | NUR ---
NURSE NOTES: DR Em notified drainage site from abdomen serous sanguineous,pressure dressing applied.s says okay to discharge patient as ordered. Report was given to facility by Charge Nurse David Moulton.Waiting for [facility] ambulance .
--- NOTE | 2019-10-28 20:15 | NUR ---
NURSE NOTES: DR woodward aware of patient discharge,Dr sam no IV antibiotics needed ,patient colonized for MRSA.
--- NOTE | 2019-10-28 20:54 | NUR ---
HAND-OFF: Report given to DEAN RN.
--- NOTE | 2019-10-28 21:00 | Surgery Progress Note ---
Surgery Progress Note Subjective Additional Comments Patient seen and examined bedside. Her cholecystostomy tube was found to be dislodged earlier today and tube is been out since. Draining serous fluid from tube site since. No nausea vomiting fever chills. Labs noted. Objective Last 24 Hour Vital Signs Date Time Temp Pulse Resp B/P (MAP) Pulse Ox O2 Delivery O2 Flow Rate FiO2 10/28/19 19:29 91 125/76 10/28/19 14:00 127/72 10/28/19 12:00 98.2 89 18 134/88 (103) 97 10/28/19 10:27 92 143/79 10/28/19 10:27 92 143/79 10/28/19 09:00 Nasal Cannula 2.0 10/28/19 08:00 84 16 149/69 (95) 99 10/28/19 05:48 114/86 10/28/19 04:00 98.0 86 18 139/70 (93) 97 10/28/19 00:00 98.2 85 18 132/81 (98) 98 10/27/19 22:00 131/78 10/27/19 21:04 86 133/75 10/27/19 21:00 Nasal Cannula 2.0 I&O Intake and Output 10/27/19 10/28/19 19:00 07:00 Intake Total 55 ml 220 ml Output Total 300 ml 510 ml Balance -245 ml -290 ml Tube Feeding 55 ml 220 ml Output Urine Total 300 ml 500 ml Drainage Total 10 ml # Bowel Movements 2 2 Dressing: saturated Wound: other Drains: other Cardiovascular: RSR Respiratory: decreased breath sounds Abdomen: soft, non-tender, present bowel sounds, non-distended Extremities: no cyanosis, other Laboratory Tests Test 10/28/19 05:37 White Blood Count 7.7 K/UL (4.8-10.8) Red Blood Count 3.11 M/UL (4.20-5.40) L Hemoglobin 9.0 G/DL (12.0-16.0) L Hematocrit 27.9 % (37.0-47.0) L Mean Corpuscular Volume 90 FL (80-99) Mean Corpuscular Hemoglobin 29.0 PG (27.0-31.0) Mean Corpuscular Hemoglobin Concent 32.4 G/DL (32.0-36.0) Red Cell Distribution Width 15.2 % (11.6-14.8) H Platelet Count 248 K/UL (150-450) Mean Platelet Volume 5.6 FL (6.5-10.1) L Neutrophils (%) (Auto) 84.0 % (45.0-75.0) H Lymphocytes (%) (Auto) 8.4 % (20.0-45.0) L Monocytes (%) (Auto) 4.1 % (1.0-10.0) Eosinophils (%) (Auto) 3.0 % (0.0-3.0) Basophils (%) (Auto) 0.5 % (0.0-2.0) Sodium Level 145 MMOL/L (136-145) Potassium Level 5.6 MMOL/L (3.5-5.1) H Chloride Level 112 MMOL/L (98-107) H Carbon Dioxide Level 22 MMOL/L (21-32) Anion Gap 11 mmol/L (5-15) Blood Urea Nitrogen 38 mg/dL (7-18) H Creatinine 2.3 MG/DL (0.55-1.30) H Estimat Glomerular Filtration Rate mL/min (>60) Glucose Level 80 MG/DL (74-106) Calcium Level 8.6 MG/DL (8.5-10.1) Magnesium Level 1.6 MG/DL (1.8-2.4) L Plan Problems: (1) Lactic acid acidosis Assessment & Plan: Patient noted to have leukocytosis, fevers, abdominal wall cellulitis, lactic acidosis. Abnormal labs. Etiology and work-up continuing currently with microbiology pending and on IV antibiotics Leukocytosis Elevated LFTs. Imaging noted. Unlikely cholecystitis but potential passed stone. Will discuss with GI for considerations of MRCP versus ERCP versus monitoring Local care being provided. Imaging noted Pt presented on admission with partially opened DTPI Sacrum.Base of wound extends from sacrum to R and L buttocks and is maroon with #3 small openings , each with slough at mid sacral area. Pt grimaced when affected area minimally palpated. Non-blanching erythema noted to R and L ischial regions. Moisture Intertrigo with surrounding erythema and denuded skin noted to R and L breasts. Mild odor noted each skin folds of breasts.Small amt sanguineous exudate noted from L breast. Mons pubis,labia majora, and medial aspects of both upper thighs erythematous and denuded. R ad L heels are firm and blanchable. Tx.Plan: [place] Liquid Skin Repair to R and L breasts(x1 application) applied to folds of each breasts. Apply Moisture Barrier paste to perineum with each incontinence care. Apply Moisture Barrier Paste to Sacrum.Cover with Optifoam drsgs. Change every 3 days and prn. APM/SIM Mattress overlay. Reposition at least every 2 hours or as tolerated. Off-load heels with pillow. (2) Sepsis Assessment & Plan: 73-year-old female with sepsis, lactic acidosis, renal insufficiency, cellulitis, leukocytosis. Febrile, hemodynamically stable, exam as above Coordinated with radiology for urgent temporary even as catheter insertion. Placed today and will discuss with nephrology for dialysis Antibiotics as per infectious disease Trend labs IV fluid resuscitation Dense consolidation in the posterior right lower lobe, likely pneumonia Liquid stool in the proximal colon, could indicate diarrheal illness Trace free intraperitoneal fluid Slight hepatic atrophy and surface nodularity raising possibility of cirrhotic change Small lesser sac varices and splenomegaly raises possibility of portal hypertension Pericardial effusion, also evident previously abd wall cellulitis superficial and lumps likely prior injection sites and not infected. cholelithiasis unlikely etiology lft's trending down cameron/lip pancreatitis chemical CT noted cont abx s/p juan tube and drain HIDA positive MRCP Findings: There is mild ascites. There is nodularity of the liver surface. Gallbladder is distended. There is thickening of the gallbladder wall and multiple gallstones. There is no evidence of intrahepatic biliary ductal dilatation. CBD is normal in caliber measuring about 4 mm. There are a few cysts within both kidneys. There is a small right pleural effusion trace left pleural effusion. The spleen is prominent. IMPRESSION: No biliary ductal dilatation or evidence of choledocholithiasis Cholelithiasis. Cirrhosis of the liver with signs of portal hypertension including ascites and splenomegaly. Small bilateral renal cysts Small right pleural effusion. Trace left pleural effusion. We will follow with recommendations cholecystostomy tube placement prior now tube has been dislodged. Hopefully will have a well-formed tract as it is draining some serous fluid. Will need to keep a close eye given how recent the tube was placed just in case as can become complicated and will need to be monitored closely. Thank you for allowing me to participate in patient care Kirk Em Oct 28, 2019 21:00
--- NOTE | 2019-10-28 21:05 | NUR ---
NURSE NOTES: AMBULANCE ARRIVED. REPORT GIVEN TO EMS CHARISMA PLATA. PATIENT IS IN STABLE CONDITION. REVIEWED AND SIGNED BELONGING LIST. PT WAS SAFELY DISCHARGED WITH EMS.
--- NOTE | 2019-10-29 00:45 | Progress Note ---
DATE: 10/28/2019 SUBJECTIVE: The patient has a cholecystostomy tube. She continues on antimicrobials. She is responding to diuretics. Urine output is improved. Electrolytes have improved. The cholecystostomy tube was dislodged inadvertently. OBJECTIVE: VITAL SIGNS: Blood pressure 127/72, pulse 89, respirations 18, and afebrile. LUNGS: Diminished breath sounds. CARDIAC: Regular rhythm and rate. Normal S1, S2 with a fourth heart sound. No rubs. ABDOMEN: Soft. EXTREMITIES: No edema. LABORATORY DATA: Labs are reviewed. IMPRESSION: Seems to have improved, but remains quite tenuous. PLAN: We will need to be closely followed at the [facility] facility and continue monitoring status of prior cholecystostomy tube site. Lance Rivas M.D. DR: BELEM JOB#: [id number] CC:
--- NOTE | 2019-10-29 02:45 | Discharge Summary ---
DATE OF ADMISSION: 10/07/2019 DATE OF DISCHARGE: 10/28/2019 ADMISSION DIAGNOSES: 1. Sepsis. 2. Acute on chronic renal failure. 3. Anemia. 4. History of dysphagia and G-tube. 5. Toxic metabolic encephalopathy. 6. Stroke. 7. Congestive heart failure. DISCHARGE DIAGNOSES: 1. Sepsis. 2. Acute on chronic renal failure. 3. Anemia. 4. History of dysphagia and G-tube. 5. Toxic metabolic encephalopathy. 6. Stroke. 7. Congestive heart failure. 8. Cholecystitis. 9. Status post cholecystotomy drain. HOSPITAL COURSE: The patient was admitted with complaints of sepsis and acute on chronic renal failure. She received broad-spectrum IV antibiotics. She was placed on BiPAP because of respiratory failure. She underwent several sessions of hemodialysis because of acute on chronic renal failure, but her renal function stabilized and actually improved. She was diagnosed with cholecystitis and because of her poor overall functional status and multiple medical issues, a cholecystostomy drain was recommended. She underwent drain placement without complication. On discharge, she was stable. She will be discharged to complete four additional days of antibiotic therapy. DISCHARGE MEDICATIONS: Please see discharge medication list for discharge medications. DIET: Renal diet as well as a G-tube feeding. ACTIVITY: Ad-jackelin. FOLLOWUP: The patient will follow up in 1 to 2 days at the [facility] facility. Chema Hendricks M.D. DR: OLVIN JOB#: [id number] CC:
== END 2019-10-28 21:00 | DRG 871 ==
LOC: EDBD 12:01 → EMR 12:30 → EDBEDREQSVC 14:08 → 2W 14:17 → EDBEDREQ 14:30 → 2W 10-09 12:00 → 2E 10-16 06:43 → 4E 10-19 22:57
PROC: 5A1D70Z Performance of Urinary Filtration, Intermittent, Less than 6 Hours Per Day (ICD-10-PCS; principal; 2019-10-08)
PROC: 05HM33Z Insertion of Infusion Device into Right Internal Jugular Vein, Percutaneous Approach (ICD-10-PCS; principal; 2019-10-08)
PROC: 0W9G3ZZ Drainage of Peritoneal Cavity, Percutaneous Approach (ICD-10-PCS; 2019-10-15)
PROC: 0W9G3ZZ Drainage of Peritoneal Cavity, Percutaneous Approach (ICD-10-PCS; 2019-10-23)
PROC: 0F9430Z Drainage of Gallbladder with Drainage Device, Percutaneous Approach (ICD-10-PCS; 2019-10-23)
DX: A41.51 Sepsis due to Escherichia coli [E. coli] (principal); G92 Toxic encephalopathy; I50.33 Acute on chronic diastolic (congestive) heart failure; J96.91 Respiratory failure, unspecified with hypoxia; J18.9 Pneumonia, unspecified organism; E43 Unspecified severe protein-calorie malnutrition; N17.9 Acute kidney failure, unspecified; I13.2 Hypertensive heart and chronic kidney disease with heart failure and with stage 5 chronic kidney disease, or end stage renal disease; N18.5 Chronic kidney disease, stage 5; E87.0 Hyperosmolality and hypernatremia; L03.311 Cellulitis of abdominal wall; K76.6 Portal hypertension; R18.8 Other ascites; E87.3 Alkalosis; R65.20 Severe sepsis without septic shock; Z93.1 Gastrostomy status; E87.5 Hyperkalemia; R13.10 Dysphagia, unspecified; K81.9 Cholecystitis, unspecified; E86.0 Dehydration; Z86.73 Personal history of transient ischemic attack (TIA), and cerebral infarction without residual deficits; K31.89 Other diseases of stomach and duodenum; D63.1 Anemia in chronic kidney disease; D69.6 Thrombocytopenia, unspecified; G20 Parkinson's disease; F02.80 Dementia in other diseases classified elsewhere, unspecified severity, without behavioral disturbance, psychotic disturbance, mood disturbance, and anxiety; L89.159 Pressure ulcer of sacral region, unspecified stage; K74.60 Unspecified cirrhosis of liver; Y95 Nosocomial condition; Z68.38 Body mass index [BMI] 38.0-38.9, adult; E03.9 Hypothyroidism, unspecified; B18.2 Chronic viral hepatitis C
CPT/HCPCS: 36415; 36569; 36600; 71045; 74176; 74181; 75989; 76700; 76937; 76942; 78266; 80048; 80053; 80202; 81003; 82140; 82150; 82248; 82270; 82550; 82553; 82746; 82803; 83540; 83550; 83605; 83690; 83735; 83880; 84100; 84443; 84484; 85007; 85025; 85610; 85651; 85730; 86140; 86850; 86900; 86901; 86920; 87040; 87070; 87075; 87081; 87181; 87205; 87324; 89051; 93005; 93306; 93970; 94640; 94664; 96365; 96366; 96367; 96375; 99285; J2765; J7030; J8499

== ENCOUNTER 2019-11-08 01:50 | Inpatient (IN) | payer MEDICARE, OTHER ==
[2019-11-08] VITALS (7 sets, daily range): BP systolic 130–158; BP diastolic 67–86
[~2019-11-08] VITALS: Ht 162.6 cm; Wt 83.0 kg
[~2019-11-08 01:50] MED LIST changes: +HYDRALAZINE HC100 MG GT; +METOPROLOL TART50 MG GT; +NORVASC5 MG GT
--- NOTE | 2019-11-08 02:06 | Emergency Room Report ---
History of Present Illness General Chief Complaint: Gastrointestinal Bleed Source: Patient, Medical Record, EMS Present Illness HPI This is 73-year-old female from care home. She has multiple medical problem including high blood pressure, diabetes, renal failure on hemodialysis. She presents with complaint of rectal bleeding. Patient has no pain. She had a bloody stool today. Per nurse, nursing staff said it was dark maroon color. Also bright red coming from the rectum. Patient says she never had this problem before. No fever chills but no abdominal pain. Eating drinking normally. She was just discharged from here with cholecystitis and sepsis. Allergies: Coded Allergies: ERYTHROMYCIN BASE (Unverified Allergy, Intermediate, 07/14/19) Per patient not allergic to medications or food Patient History Past Medical History: see triage record, old chart reviewed Past Surgical History: other Pertinent Family History: none Social History: Denies: smoking Now: No Immunizations: other Reviewed Nursing Documentation: PMH: Agreed; PSxH: Agreed Nursing Documentation-PMH Past Medical History: No History, Except For Hx Cardiac Problems: Yes - anemia, hypothyrodism Hx Hypertension: Yes Hx Asthma: No Hx Cancer: No Hx Gastrointestinal Problems: Yes - GTUBE Hx Neurological Problems: Yes Hx Cerebrovascular Accident: Yes Hx Parkinson's Disease: Yes Hx Seizures: Yes Hx Speech Problem: Yes - Garbled Review of Systems Eye: Denies: eye pain, blurred vision ENT: Denies: ear pain, nose congestion, throat swelling Respiratory: Denies: cough, shortness of breath Cardiovascular: Denies: chest pain, palpitations Gastrointestinal: Denies: abdominal pain, diarrhea, nausea, vomiting Musculoskeletal: Denies: back pain, joint pain Skin: Denies: rash Neurological: Denies: headache, numbness Endocrine: Denies: increased thirst, increased urine Hematologic/Lymphatic: Denies: easy bruising All Other Systems: negative except mentioned in HPI Physical Exam Vital Signs Date Time Temp Pulse Resp B/P (MAP) Pulse Ox O2 Delivery O2 Flow Rate FiO2 11/08/19 01:49 99.1 74 18 143/78 (99) 99 Nasal Cannula 2.0 vitals with htn Sp02 EP Interpretation: reviewed, normal General Appearance: well appearing, no apparent distress, alert Head: normocephalic, atraumatic Eyes: bilateral eye PERRL, bilateral eye EOMI ENT: hearing grossly normal, normal pharynx Neck: full range of motion, supple, no meningismus Respiratory: chest non-tender, normal breath sounds, rhonchi Cardiovascular #1: regular rate, rhythm, no murmur Gastrointestinal: normal bowel sounds, non tender, no mass, no organomegaly, no bruit, non-distended Rectal: other - Normal rectal tone. Maroon color stool Musculoskeletal: back normal Neurologic: alert Psychiatric: mood/affect normal Medical Decision Making Diagnostic Impression: Primary Impression: Lower GI bleeding Additional Impression: Anemia Qualified Codes: D64.9 - Anemia, unspecified ER Course Patient presents with lower GI bleed. Hemoglobin stable at baseline. No evidence of active bleeding now. No vomiting. Vitals stable. Will admit for monitoring and possible blood transfusion. I contacted Dr. Hendricks for admission. EKG Diagnostic Results Rate: normal Rhythm: NSR ST Segments: no acute changes Rhythm Strip Diag. Results EP Interpretation: yes Rate: 80 Rhythm: NSR, no PVC's, no ectopy Last Vital Signs Date Time Temp Pulse Resp B/P (MAP) Pulse Ox O2 Delivery O2 Flow Rate FiO2 11/08/19 01:49 99.1 74 18 143/78 (99) 99 Nasal Cannula 2.0 Status: improved Disposition: ADMITTED INPATIENT Condition: Serious Russel Thompson MD Nov 08, 2019 02:06
[2019-11-08] MEDS ORDERED: METOCLOPRAMIDE H5 M1 ORAL (02:10)
[2019-11-08] MEDS ORDERED: DIPHENHYDRAMINE25 M1 ORAL (02:10)
[2019-11-08] MEDS ORDERED: CHLORHEXIDINE118 M1 TP (02:10)
[2019-11-08] MEDS ORDERED: AMLODIPINE BESYL5 MG ORAL (02:10)
[2019-11-08] MEDS ORDERED: LOPERAMIDE2 MG PO (02:10)
[2019-11-08] MEDS ORDERED: ACETAMINOPHEN80 M1 ORAL (02:12)
[2019-11-08 02:26] LABS: BASOPHILS % (AUTO) 0.6 % (0.0-2.0); EOSINOPHILS % (AUTO) 2.8 % (0.0-3.0); HEMATOCRIT 23.8 % (37.0-47.0); LYMPHOCYTES % (AUTO) 15.2 % (20.0-45.0); MEAN CORPUSCULAR VOLUME 88 FL (80-99); MONOCYTES % (AUTO) 5.8 % (1.0-10.0); NEUTROPHILS % (AUTO) 75.6 % (45.0-75.0); PLATELET COUNT 150 K/UL (150-450); RED BLOOD COUNT 2.69 M/UL (4.20-5.40); RED CELL DISTRIBUTION WIDTH 15.5 % (11.6-14.8)
[2019-11-08 02:30] LABS: ANION GAP 8 mmol/L (5-15); BLOOD UREA NITROGEN 47 mg/dL (7-18); CALCIUM 9.7 MG/DL (8.5-10.1); CARBON DIOXIDE 31 MMOL/L (21-32); CHLORIDE 104 MMOL/L (98-107); CREATININE 2.6 MG/DL (0.55-1.30); POTASSIUM 3.7 MMOL/L (3.5-5.1); SODIUM 143 MMOL/L (136-145)
[2019-11-08 02:58] LABS: APPEARANCE,URINE CLEAR; BILIRUBIN, URINE NEGATIVE (NEGATIVE); GLUCOSE, URINE (UA) NEGATIVE (NEGATIVE); KETONES,URINE NEGATIVE (NEGATIVE); LEUKOCYTE ESTERASE ,URINE 1+ (NEGATIVE); NITRITE,URINE NEGATIVE (NEGATIVE); PH,URINE 6 (4.5-8.0); PROTEIN,URINE 3+ (NEGATIVE); UROBILINOGEN,URINE NORMAL MG/DL (0.0-1.0)
[2019-11-08 03:00] LABS: COLOR,URINE YELLOW
[2019-11-08] MEDS: D5NS 1,000 ML IV SCH ×2 (07:40→21:07)
[2019-11-08] MEDS: Sodium Citrate 30ml GT SCH ×2 (09:16→17:36)
[2019-11-08] MEDS: Metoprolol Tartrate 50mg tab GT SCH ×2 (09:16→21:06)
[2019-11-08] MEDS: Pantoprazole Inj IVP SCH ×2 (09:16→21:06)
[2019-11-08] MEDS: HydrALAZINE 50mg tab GT SCH ×2 (14:02→23:12)
--- NOTE | 2019-11-08 17:23 | General Progress Note ---
Assessment/Plan Assessment/Plan: Assessment - GIB - Anemia - Azotemia - OBS - anorexia, s/p GT placement - Cholelithiasis - cirrhosis Recommendations - NPO - IVF - PPI - follow CBC - transfuse PRN - EGD/colon next week Subjective Allergies: Coded Allergies: ERYTHROMYCIN BASE (Unverified Allergy, Intermediate, 07/14/19) Per patient not allergic to medications or food Objective Last 24 Hour Vital Signs Date Time Temp Pulse Resp B/P (MAP) Pulse Ox O2 Delivery O2 Flow Rate FiO2 11/08/19 16:00 98.5 79 20 130/79 (96) 100 11/08/19 14:02 133/68 11/08/19 12:00 96.7 80 20 133/68 (89) 100 11/08/19 12:00 87 11/08/19 09:16 87 146/76 11/08/19 09:16 87 146/76 11/08/19 09:00 Nasal Cannula 2.0 11/08/19 08:00 99.1 87 19 146/76 (99) 98 11/08/19 08:00 88 11/08/19 04:00 Room Air 11/08/19 04:00 98.6 86 18 149/86 (107) 99 11/08/19 04:00 85 11/08/19 03:45 98.4 72 18 135/67 98 Nasal Cannula 2.0 11/08/19 03:45 98.2 72 16 132/67 98 Room Air 2.0 11/08/19 02:05 99.1 78 18 143/78 99 Nasal Cannula 2.0 11/08/19 02:05 74 18 Nasal Cannula 2.0 11/08/19 01:49 99.1 74 18 143/78 (99) 99 Nasal Cannula 2.0 Laboratory Tests 11/08/19 02:12: White Blood Count 5.0, Red Blood Count 2.69L, Hemoglobin 8.0L, Hematocrit 23.8L , Mean Corpuscular Volume 88, Mean Corpuscular Hemoglobin 29.7, Mean Corpuscular Hemoglobin Concent 33.6, Red Cell Distribution Width 15.5H, Platelet Count 150, Mean Platelet Volume 6.8, Neutrophils (%) (Auto) 75.6H, Lymphocytes (%) (Auto) 15.2L, Monocytes (%) (Auto) 5.8, Eosinophils (%) (Auto) 2.8, Basophils (%) (Auto) 0.6, Prothrombin Time 10.3, Prothromb Time International Ratio 1.0, Activated Partial Thromboplast Time 24, Sodium Level 143, Potassium Level 3.7, Chloride Level 104, Carbon Dioxide Level 31, Anion Gap 8, Blood Urea Nitrogen 47H, Creatinine 2.6H, Estimat Glomerular Filtration Rate , Glucose Level 92, Calcium Level 9.7 11/08/19 02:31: Urine Color Yellow, Urine Appearance Clear, Urine pH 6, Urine Specific [place] 1.010, Urine Protein 3+H, Urine Glucose (UA) Negative, Urine Ketones Negative, Urine Blood 1+H, Urine Nitrite Negative, Urine Bilirubin Negative, Urine Urobilinogen Normal, Urine Leukocyte Esterase 1+H, Urine RBC 2-4H, Urine WBC 0-2 , Urine Squamous Epithelial Cells ModerateH, Urine Bacteria Few 11/08/19 16:40: White Blood Count [Pending], Red Blood Count [Pending], Hemoglobin [Pending], Hematocrit [Pending], Mean Corpuscular Volume [Pending], Mean Corpuscular Hemoglobin [Pending], Mean Corpuscular Hemoglobin Concent [Pending], Red Cell Distribution Width [Pending], Platelet Count [Pending], Mean Platelet Volume [ Pending], Neutrophils (%) (Auto) [Pending], Lymphocytes (%) (Auto) [Pending], Monocytes (%) (Auto) [Pending], Eosinophils (%) (Auto) [Pending], Basophils (%) (Auto) [Pending] Height (Feet): 5 Height (Inches): 5.00 Weight (Pounds): 168 Mina Rao MD Nov 08, 2019 17:23
[2019-11-08 17:25] LABS: HEMOGLOBIN 7.3 G/DL (12.0-16.0); MEAN CORPUSCULAR VOLUME 90 FL (80-99); PLATELET COUNT 151 K/UL (150-450); RED BLOOD COUNT 2.46 M/UL (4.20-5.40); RED CELL DISTRIBUTION WIDTH 15.5 % (11.6-14.8); WHITE BLOOD COUNT 5.1 K/UL (4.8-10.8)
[2019-11-08 17:29] LABS: LYMPHOCYTES % (AUTO) 16.7 % (20.0-45.0); NEUTROPHILS % (AUTO) 74.2 % (45.0-75.0)
[2019-11-08 17:30] LABS: BASOPHILS % (AUTO) 0.4 % (0.0-2.0); EOSINOPHILS % (AUTO) 2.8 % (0.0-3.0); MONOCYTES % (AUTO) 5.9 % (1.0-10.0)
[2019-11-08] MEDS ORDERED: Sorbitol Solution UD 30ml ORAL SCH (17:30)
[2019-11-09] VITALS: BP 134/77
[2019-11-09 00:34] LABS: HEMATOCRIT 20.9 % (37.0-47.0); MEAN CORPUSCULAR VOLUME 89 FL (80-99); PLATELET COUNT 136 K/UL (150-450); RED BLOOD COUNT 2.35 M/UL (4.20-5.40); RED CELL DISTRIBUTION WIDTH 15.7 % (11.6-14.8); WHITE BLOOD COUNT 4.6 K/UL (4.8-10.8)
[2019-11-09 04:00] VITALS: BP 137/76
[2019-11-09] MEDS: Levothyroxine 125mcg tab GT SCH (05:48)
[2019-11-09] MEDS: HydrALAZINE 50mg tab GT SCH ×3 (05:48→21:51)
[2019-11-09 08:00] VITALS: BP 145/66
[2019-11-09 08:30] LABS: HEMATOCRIT 23.5 % (37.0-47.0); HEMOGLOBIN 7.5 G/DL (12.0-16.0); MEAN CORPUSCULAR VOLUME 91 FL (80-99); PLATELET COUNT 147 K/UL (150-450); RED BLOOD COUNT 2.58 M/UL (4.20-5.40); RED CELL DISTRIBUTION WIDTH 16.1 % (11.6-14.8); WHITE BLOOD COUNT 4.5 K/UL (4.8-10.8)
--- NOTE | 2019-11-09 08:45 | Consultation ---
DATE OF CONSULTATION: 11/08/2019 GASTROENTEROLOGY CONSULTATION CONSULTING PHYSICIAN: Mina Rao M.D. CHIEF COMPLAINT: I was asked to see this patient by Dr. Lance Rivas for evaluation of gastrointestinal bleeding. HISTORY OF PRESENT ILLNESS: The patient is an unfortunate 73-year-old woman from the half-way, who was brought in for dark red stools. The patient herself provides very little history, but she is awake and responsive. She has a gastrostomy tube placed for long-term feeding and nutrition. She does not have any prior history of gastrointestinal bleeding. She denies any abdominal pain. PAST MEDICAL HISTORY: History of hypertension, hypothyroidism, cerebrovascular disease with history of stroke and dementia, history of obesity, chronic kidney disease, history of gastritis, history of pericardial effusion, history of failure to thrive, status post gastrostomy tube placement, history of MRSA sepsis, diastolic dysfunction, degenerative joint disease, bedbound state. FAMILY HISTORY: Noncontributory. SOCIAL HISTORY: The patient was previous smoker, but she does not drink. REVIEW OF SYSTEMS: Otherwise negative. MEDICATIONS: See the chart list for details. PHYSICAL EXAMINATION: GENERAL: This is a well-developed, well-nourished, woman, seen in her room. HEENT: Normocephalic and atraumatic. Sclerae anicteric. Oropharynx clear. NECK: Supple. CHEST: Clear to auscultation. CARDIOVASCULAR: Revealed regular rate. ABDOMEN: Soft. Good bowel sounds. Gastrostomy tube was in place. EXTREMITIES: Revealed no edema. LABORATORY DATA: Noted. ASSESSMENT: This patient presents with gastrointestinal bleeding, which could be either upper or lower source. Differential diagnosis would include peptic ulcer disease or diverticular disorders are the most common causes followed by other possibilities. The patient will need to undergo endoscopy and colonoscopy to evaluate the above possibilities. These have been discussed with the patient's family and informed consent will be obtained. In the meantime, the patient to be kept NPO and some gentle laxatives have been given to clear out stool. RECOMMENDATIONS: Per above discussion and per orders written in the chart. Thank you for asking me to participate in the care of this patient. Mina Rao M.D. DR: EMILIE JOB#: [id number] CC:
[2019-11-09] MEDS: Metoprolol Tartrate 50mg tab GT SCH ×2 (08:55→21:50)
[2019-11-09] MEDS: Sodium Citrate 30ml GT SCH ×2 (08:55→18:24)
[2019-11-09] MEDS: Pantoprazole Inj IVP SCH ×2 (08:56→21:50)
[2019-11-09] MEDS ORDERED: Nulytely 4L ORAL SCH (09:15)
[2019-11-09] MEDS: D5NS 1,000 ML IV SCH (09:44)
[2019-11-09 12:00] VITALS: BP 146/89
[2019-11-09] MEDS ORDERED: D5NS 1000ml IV ONE (13:52)
[2019-11-09 16:00] VITALS: BP 152/82
[2019-11-09 16:31] LABS: HEMATOCRIT 28.5 % (37.0-47.0); HEMOGLOBIN 9.3 G/DL (12.0-16.0); MEAN CORPUSCULAR VOLUME 90 FL (80-99); PLATELET COUNT 202 K/UL (150-450); RED BLOOD COUNT 3.16 M/UL (4.20-5.40); RED CELL DISTRIBUTION WIDTH 16.1 % (11.6-14.8); WHITE BLOOD COUNT 7.2 K/UL (4.8-10.8)
--- NOTE | 2019-11-09 17:00 | General Progress Note ---
Assessment/Plan Assessment/Plan: Assessment - GIB - Anemia - Azotemia - OBS - anorexia, s/p GT placement - Cholelithiasis - cirrhosis Recommendations - NPO - IVF - PPI - follow CBC - transfuse PRN - EGD/colon in am Subjective Allergies: Coded Allergies: ERYTHROMYCIN BASE (Unverified Allergy, Intermediate, 07/14/19) Per patient not allergic to medications or food Subjective awake no complaints d/w DTR - wants to proceed with GI w/u Objective Last 24 Hour Vital Signs Date Time Temp Pulse Resp B/P (MAP) Pulse Ox O2 Delivery O2 Flow Rate FiO2 11/09/19 13:13 146/89 11/09/19 12:00 98.1 82 20 146/89 (108) 96 11/09/19 12:00 83 11/09/19 09:00 Nasal Cannula 2.0 11/09/19 08:56 87 145/66 11/09/19 08:55 87 145/66 11/09/19 08:00 98.6 87 18 145/66 (92) 97 11/09/19 08:00 88 11/09/19 05:48 137/76 11/09/19 04:00 97.7 85 20 137/76 (96) 99 11/09/19 03:44 85 11/09/19 00:00 89 11/09/19 00:00 97.5 89 18 134/77 (96) 100 11/08/19 23:12 158/80 11/08/19 21:06 85 158/80 11/08/19 20:00 85 11/08/19 20:00 99.3 85 20 158/80 (106) 98 11/08/19 18:44 Nasal Cannula 2.0 11/08/19 17:36 79 130/79 Intake and Output 11/08/19 11/09/19 18:59 06:59 Intake Total 891 ml Output Total 300 ml Balance 591 ml Intake IV Total 891 ml Output Urine Total 300 ml # Voids 2 2 # Bowel Movements 3 1 Laboratory Tests 11/09/19 00:15: White Blood Count 4.6L, Red Blood Count 2.35L, Hemoglobin 7.0L, Hematocrit 20.9L , Mean Corpuscular Volume 89, Mean Corpuscular Hemoglobin 29.8, Mean Corpuscular Hemoglobin Concent 33.6, Red Cell Distribution Width 15.7H, Platelet Count 136L, Mean Platelet Volume 7.3, Neutrophils (%) (Auto) , Lymphocytes (%) (Auto) , Monocytes (%) (Auto) , Eosinophils (%) (Auto) , Basophils (%) (Auto) , Differential Total Cells Counted 100, Neutrophils % ( Manual) 86H, Lymphocytes % (Manual) 8L, Monocytes % (Manual) 5, Eosinophils % ( Manual) 1, Basophils % (Manual) 0, Band Neutrophils 0, Platelet Estimate DecreasedL, Platelet Morphology Normal, Hypochromasia 1+, Anisocytosis 1+ 11/09/19 08:05: White Blood Count 4.5L, Red Blood Count 2.58L, Hemoglobin 7.5L, Hematocrit 23.5L , Mean Corpuscular Volume 91, Mean Corpuscular Hemoglobin 29.1, Mean Corpuscular Hemoglobin Concent 32.0, Red Cell Distribution Width 16.1H, Platelet Count 147L, Mean Platelet Volume 7.7, Neutrophils (%) (Auto) , Lymphocytes (%) (Auto) , Monocytes (%) (Auto) , Eosinophils (%) (Auto) , Basophils (%) (Auto) , Differential Total Cells Counted 100, Neutrophils % ( Manual) 68, Lymphocytes % (Manual) 22, Monocytes % (Manual) 6, Eosinophils % ( Manual) 4H, Basophils % (Manual) 0, Band Neutrophils 0, Platelet Estimate Adequate, Platelet Morphology Normal, Anisocytosis 1+, Polychromasia 1+ 11/09/19 16:18: White Blood Count 7.2#, Red Blood Count 3.16L, Hemoglobin 9.3L, Hematocrit 28.5L , Mean Corpuscular Volume 90, Mean Corpuscular Hemoglobin 29.4, Mean Corpuscular Hemoglobin Concent 32.6, Red Cell Distribution Width 16.1H, Platelet Count 202, Mean Platelet Volume 7.2, Neutrophils (%) (Auto) , Lymphocytes (%) (Auto) , Monocytes (%) (Auto) , Eosinophils (%) (Auto) , Basophils (%) (Auto) , Neutrophils % (Manual) [Pending], Lymphocytes % (Manual) [Pending], Platelet Estimate [Pending], Platelet Morphology [Pending] Height (Feet): 5 Height (Inches): 5.00 Weight (Pounds): 168 Objective WDWN AA woman NCAT supple CTA RRR Abd soft (+) GT no edema Mina Rao MD Nov 09, 2019 17:00
[2019-11-09 20:00] VITALS: BP 143/89
--- NOTE | 2019-11-09 21:15 | Consultation ---
DATE OF CONSULTATION: 11/09/2019 NEPHROLOGY CONSULTATION CONSULTING PHYSICIAN: Jose Lemus M.D. REFERRING PHYSICIAN: Chema Hendricks M.D. REASON FOR CONSULTATION: Chronic kidney disease. HISTORY OF PRESENT ILLNESS: The patient has chronic kidney disease likely stage 3 or 4, most likely secondary to hypertensive nephrosclerosis. She has had multiple hospitalizations. At this time, she presents with GI bleeding. There is a history of severe hypertension difficult to control, prior CVA, recent cholecystitis, obesity, history of anorexia, and gastrostomy tube placement. HABITS: She is a former smoker and quit. No alcohol or drugs. SOCIAL HISTORY: She is currently living in the [facility]. SURGERIES: Hysterectomy, gastrostomy, and cholecystotomy. SYSTEM REVIEW: HEAD, EYES, EARS, NOSE, AND THROAT: Vision and hearing is good. ENDOCRINE: No definite diabetes. There is a history of obesity and hypothyroidism. PULMONARY: History of pneumonitis. She is not complaining of shortness of breath at this time. No TB. CARDIAC: History of severe hypertension, hypertensive cardiovascular disease and diastolic dysfunction, and CHF. GASTROINTESTINAL: History of anorexia, gastrostomy tube feeding, and prior GI workup. GENITOURINARY: She has urinary incontinence, prior UTIs. NEUROLOGIC: History of CVA with left-sided weakness, dysarthria, and cognitive deficits. MEDICATIONS: From the [facility] are reviewed on the computer and not repeated at this time. PHYSICAL EXAMINATION: GENERAL: The patient is alert lady, lying in bed, in no acute distress. Wearing oxygen. She has a gastrostomy tube. VITAL SIGNS: Temperature 98.1, pulse 82, respirations 20, blood pressure 146/89, pulse ox is 97. HEAD, EYES, EARS, NOSE, AND THROAT: Sclerae are nonicteric. Ocular motions intact in all directions. Oral mucosa moist. NECK: No adenopathy. LUNGS: Clear. HEART: Regular rhythm. I hear no murmur. ABDOMEN: Obese, soft. No organomegaly. Gastrostomy is in good position. EXTREMITIES: No edema, cyanosis, or clubbing. NEUROLOGIC: The patient is alert and responsive. She is dysarthric. Ocular motions intact in all directions. Smile is symmetric. She moves all extremities. PERTINENT LABORATORY DATA: Show white count of 4.5 and a hemoglobin was 7.5, platelet 147,000. Sodium 143, potassium 3.7, chloride 104, CO2 21, BUN is 47, creatinine is 2.6. Urinalysis shows 2 to 4 RBCs, 0 to 2 white cells per high-power field. IMPRESSION: 1. GI bleeding. 2. Chronic kidney disease stage 4 to 5. 3. Anemia of chronic kidney disease. 4. History of recent cholecystitis. 5. History of CVA. 6. History of urinary incontinence. 7. Hypertensive heart disease. 8. History of CVA. PLAN: 1. The patient will be continued with hydration. 2. GI evaluation. 3. Monitor for renal function closely. 4. She is a high risk patient with multiple comorbidities. Jose Lemus M.D. DR: KELLIE JOB#: [id number] CC:
[2019-11-10] VITALS (10 sets, daily range): BP systolic 110–157; BP diastolic 60–88
[2019-11-10] MEDS: D5NS 1,000 ML IV SCH (00:15)
--- NOTE | 2019-11-10 05:30 | Progress Note ---
DATE: 11/09/2019 CARDIOLOGY PROGRESS NOTE SUBJECTIVE: No new bleeding noted. No distress. Hemoglobin remained stable. Denies abdominal pain. OBJECTIVE: VITAL SIGNS: Blood pressure 145/66, pulse 87, respiratory rate 18, and afebrile. LUNGS: Clear. CARDIAC: Regular rhythm and rate. Normal S1 and S2 with no new murmur or rub. ABDOMEN: Soft. No focal tenderness or edema. G-tube intact. LABORATORY DATA: White count 7.2 and hemoglobin 9.3, post transfusion. IMPRESSION: 1. Gastrointestinal bleeding. 2. Anemia. 3. Chronic kidney disease. 4. Hypertensive heart disease. 5. Cerebrovascular disease. 6. Status post acute cholecystitis with cholecystostomy drainage. PLAN: 1. Medications by feeding tube. 2. Nutritional IV fluids. 3. No anti-platelet therapy. 4. Stable from cardiovascular standpoint for panendoscopy. 5. May consider further imaging of the hepatobiliary tract subsequently, in addition iron replacement and the vitamin supplementation if appropriate will be given. Lance Rivas M.D. DR: BRAVO JOB#: [id number] CC:
[2019-11-10] MEDS: Levothyroxine 125mcg tab GT SCH (05:45)
--- NOTE | 2019-11-10 05:45 | History and Physical Report ---
DATE OF ADMISSION: 11/08/2019 REASON FOR ADMISSION: GI bleeding. HISTORY OF PRESENT ILLNESS: This is a 73-year-old female with multiple medical problems. She has been convalescing at a longterm facility for the past few months. For the last evening, she was noted to have dark red stools with moderate amount of blood noted by nursing staff. The patient did not have any pain. She does have a G-tube for nutrition although does take oral nutrition as well. She has not had any prior gastrointestinal bleeding noted but does have a history of chronic abdominal pain. She was brought into the emergency room where she was noted to have a hemoglobin of 8.3 and some blood in the stool she was otherwise hemodynamically stable. PAST MEDICAL HISTORY: Hypothyroidism, hypertension with hypertensive heart disease, cerebrovascular disease with multi-infarct dementia, history of pericardial effusion, chronic kidney disease with history of dialysis in the past, gastritis, failure to thrive status post G-tube, history of MRSA sepsis, chronic diastolic congestive heart failure, osteoarthritis, degenerative disk disease, COPD, VRE colonization of . SOCIAL HISTORY: Prior smoker. No alcohol or substance abuse. FAMILY HISTORY: Noncontributory. MEDICATIONS: Prior to admission reviewed and reconciled. ALLERGIES: Erythromycin. REVIEW OF SYSTEMS: Vision stable. Hearing impaired slightly. No known history of diabetes. She is on thyroid replacement. She does have a history of pneumonia, no positive PPD. She does have a history of hypertension and diastolic congestive heart failure. No history of flow-limiting coronary disease. Her most recent echocardiogram 2018 revealed normal ejection fraction, concentric hypertrophy, and diastolic relaxation abnormality with a small residual pericardial effusion. She does have a G-tube for adequate nutrition. She has had a prior stroke with mild weakness on the left. She has a history of incontinence. She has been on dialysis in the past. There is a history of recent cholecystitis with cholecystostomy tube placed. PHYSICAL EXAMINATION: VITAL SIGNS: Blood pressure 149/86, heart rate 85, respiratory rate 18, afebrile. HEENT: Temporal wasting. Arcus senilis. Oropharynx clear. NECK: Supple. LUNGS: Diminished breath sounds. CARDIAC: Regular rhythm and rate. Normal S1, S2. No rubs. There is a fourth heart sound. ABDOMEN: Obese, soft. No tenderness. G-tube intact. EXTREMITIES: With no pitting edema. Mild left weakness. LABORATORY DATA: White count 5, hemoglobin 8, repeat hemoglobin 7.3, platelet 151,000. Sodium 143, potassium 3.7, bicarb 31, BUN 47, creatinine 2.6. Urinalysis with 0 to 2 white cells, 2 to 4 red cells. IMPRESSION: 1. Acute GI bleeding. 2. Recent cholecystostomy tube for cholecystitis. 3. Status post G-tube. 4. Chronic kidney disease. 5. Hypertensive heart disease. 6. Cerebrovascular disease. 7. Anemia, multifactorial. PLAN: 1. Cardiac monitoring. 2. Serial hemoglobin. 3. No anti-platelet therapy. 4. NPO per GI call center consultant. 5. Check iron panel. 6. Consider Epogen. 7. Panendoscopy under consideration. Lance Rivas M.D. DR: Laila JOB#: [id number] CC:
[2019-11-10] MEDS: HydrALAZINE 50mg tab GT SCH ×3 (05:46→22:07)
[2019-11-10] MEDS ORDERED: Fleet's Enema 133ml RECTAL SCH (07:00)
[2019-11-10 07:03] LABS: HEMATOCRIT 28.5 % (37.0-47.0); HEMOGLOBIN 9.3 G/DL (12.0-16.0); MEAN CORPUSCULAR VOLUME 92 FL (80-99); PLATELET COUNT 234 K/UL (150-450); RED BLOOD COUNT 3.11 M/UL (4.20-5.40); RED CELL DISTRIBUTION WIDTH 16.8 % (11.6-14.8)
[2019-11-10 07:29] LABS: ALANINE AMINOTRANSFERASE 20 U/L (12-78); ALBUMIN 2.3 G/DL (3.4-5.0); ALBUMIN/GLOBULIN RATIO 0.5 (1.0-2.7); ALKALINE PHOSPHATASE 64 U/L (46-116); ANION GAP 12 mmol/L (5-15); ASPARTATE AMINO TRANSFERASE 33 U/L (15-37); BILIRUBIN,TOTAL 0.5 MG/DL (0.2-1.0); BLOOD UREA NITROGEN 31 mg/dL (7-18); CARBON DIOXIDE 24 MMOL/L (21-32); CHLORIDE 113 MMOL/L (98-107); CREATININE 3.2 MG/DL (0.55-1.30); POTASSIUM 3.6 MMOL/L (3.5-5.1); SODIUM 149 MMOL/L (136-145)
[2019-11-10] MEDS: Sodium Citrate 30ml GT SCH ×2 (09:09→18:44)
[2019-11-10] MEDS: Pantoprazole Inj IVP SCH ×2 (09:09→22:07)
[2019-11-10] MEDS: Metoprolol Tartrate 50mg tab GT SCH ×2 (09:09→22:07)
[2019-11-10] MEDS ORDERED: NS 500ML IVPB ONE (10:50)
[2019-11-10] MEDS ORDERED: LR 1000ml 1,000 ML IVLG SCH (10:57)
[2019-11-10] MEDS ORDERED: Atropine Sulfate 0.4mg/ml inj IVP PRN (11:00)
[2019-11-10] MEDS ORDERED: Ketorolac 30mg Inj IV PRN ×2 (11:00)
[2019-11-10] MEDS ORDERED: Labetalol 5mg/ml 20ml vial IV PRN (11:00)
[2019-11-10] MEDS ORDERED: Meperidine 50mg/ml Inj(FOR RIGORS ONLY) IVP PRN (11:00)
[2019-11-10] MEDS ORDERED: HYDROcodone/Acetamin 7.5/325 tab ORAL PRN (11:00)
[2019-11-10] MEDS ORDERED: Flumazenil 0.1mg/ml 5ml Inj IV ONE (11:00)
[2019-11-10] MEDS ORDERED: Midazolam 2mg/2ml Inj IVP PRN (11:00)
[2019-11-10] MEDS ORDERED: Metoclopramide 10mg/2ml Inj IVP PRN (11:00)
[2019-11-10] MEDS ORDERED: Lidocaine 1% Plain 30 ml INJ ONE (11:00)
[2019-11-10] MEDS ORDERED: DiphenhydrAMINE 50mg/ml Inj IVP PRN (11:00)
[2019-11-10] MEDS ORDERED: oxyCODONE HCL/Acetaminophen 5/325mg ORAL PRN (11:00)
[2019-11-10] MEDS ORDERED: fentaNYL 100 mcg/2 mL IV PRN (11:00)
[2019-11-10] MEDS ORDERED: LORazepam Inj 2mg/ml 1ml IV PRN (11:00)
[2019-11-10] MEDS ORDERED: Hydromorphone 0.5mg/0.5ml inj IVP PRN (11:00)
[2019-11-10] MEDS ORDERED: HYDROcodone/Acetamin 5/325 tab ORAL PRN (11:00)
[2019-11-10] MEDS ORDERED: Propofol 200mg/20ml IV ONE (11:00)
--- NOTE | 2019-11-10 11:04 | Anethesia Preoperative Eval ---
Anesthesia Pre-op PMH/ROS General Date of Evaluation: Nov 10, 2019 Time of Evaluation: 10:59 Anesthesiologist: Eran ASA Score: ASA 4 Mallampati Score Class I : Soft palate, uvula, fauces, pillars visible Class II: Soft palate, uvula, fauces visible Class III: Soft palate, base of uvula visible Class IV: Only hard plate visible Mallampati Classification: Class III Surgeon: Jalen Anesthesia History: none Family History: no anesthesia problems Allergies: Coded Allergies: ERYTHROMYCIN BASE (Unverified Allergy, Intermediate, 07/14/19) Per patient not allergic to medications or food Medications: see eMAR Patient NPO?: Yes Past Medical History Cardiovascular: Reports: HTN, CAD, MS Pulmonary: Reports: COPD Gastrointestinal/Genitourinary: Reports: CRI - Dialysis Neurologic/Psychiatric: Reports: CVA - Seizures, depression/anxiety, other - Parkinsons Endocrine: Reports: hypothyroidism Hematology/Immune: Reports: anemia, DVT Other: obesity - BMI31 PSxH Narrative: G Tube, HERNANDEZ Anesthesia Pre-op Phys. Exam Physician Exam Last Vital Signs Date Time Temp Pulse Resp B/P (MAP) Pulse Ox O2 Delivery O2 Flow Rate FiO2 11/10/19 09:09 111 133/77 11/10/19 09:00 Nasal Cannula 2.0 11/10/19 04:00 98.4 20 97 Constitutional: NAD Neurologic: CN 2-12 intact Cardiovascular: RRR Respiratory: CTA Gastrointestinal: S/NT/ND Airway Exam Mallampati Score: Class III MO: limited ROM: limited Teeth: missing Anesthesia Pre-op A/P Labs Hematology Test 11/09/19 16:18 11/10/19 05:46 White Blood Count 7.2 K/UL (4.8-10.8) # 14.0 K/UL (4.8-10.8) #H Red Blood Count 3.16 M/UL (4.20-5.40) L 3.11 M/UL (4.20-5.40) L Hemoglobin 9.3 G/DL (12.0-16.0) L 9.3 G/DL (12.0-16.0) L Hematocrit 28.5 % (37.0-47.0) L 28.5 % (37.0-47.0) L Mean Corpuscular Volume 90 FL (80-99) 92 FL (80-99) Mean Corpuscular Hemoglobin 29.4 PG (27.0-31.0) 29.9 PG (27.0-31.0) Mean Corpuscular Hemoglobin Concent 32.6 G/DL (32.0-36.0) 32.7 G/DL (32.0-36.0) Red Cell Distribution Width 16.1 % (11.6-14.8) H 16.8 % (11.6-14.8) H Platelet Count 202 K/UL (150-450) 234 K/UL (150-450) Mean Platelet Volume 7.2 FL (6.5-10.1) 7.2 FL (6.5-10.1) Neutrophils (%) (Auto) % (45.0-75.0) % (45.0-75.0) Lymphocytes (%) (Auto) % (20.0-45.0) % (20.0-45.0) Monocytes (%) (Auto) % (1.0-10.0) % (1.0-10.0) Eosinophils (%) (Auto) % (0.0-3.0) % (0.0-3.0) Basophils (%) (Auto) % (0.0-2.0) % (0.0-2.0) Differential Total Cells Counted 100 100 Neutrophils % (Manual) 89 % (45-75) H 92 % (45-75) H Lymphocytes % (Manual) 10 % (20-45) L 4 % (20-45) L Monocytes % (Manual) 1 % (1-10) 3 % (1-10) Eosinophils % (Manual) 0 % (0-3) 0 % (0-3) Basophils % (Manual) 0 % (0-2) 0 % (0-2) Band Neutrophils 0 % (0-8) 1 % (0-8) Platelet Estimate Adequate Adequate Platelet Morphology Normal Normal Anisocytosis 1+ 1+ Hypochromasia 2+ Spherocytes 1+ Chemistry Test 11/10/19 05:46 Sodium Level 149 MMOL/L (136-145) H Potassium Level 3.6 MMOL/L (3.5-5.1) Chloride Level 113 MMOL/L (98-107) H Carbon Dioxide Level 24 MMOL/L (21-32) Anion Gap 12 mmol/L (5-15) Blood Urea Nitrogen 31 mg/dL (7-18) H Creatinine 3.2 MG/DL (0.55-1.30) H Estimat Glomerular Filtration Rate mL/min (>60) Glucose Level 129 MG/DL (74-106) H Calcium Level 9.0 MG/DL (8.5-10.1) Total Bilirubin 0.5 MG/DL (0.2-1.0) Aspartate Amino Transf (AST/SGOT) 33 U/L (15-37) Alanine Aminotransferase (ALT/SGPT) 20 U/L (12-78) Alkaline Phosphatase 64 U/L (46-116) Total Protein 7.4 G/DL (6.4-8.2) Albumin 2.3 G/DL (3.4-5.0) L Globulin 5.1 g/dL Albumin/Globulin Ratio 0.5 (1.0-2.7) L Risk Assessment & Plan Assessment: ASA 4 Plan: GA Status Change Before Surgery: No Tommie Barillas MD Nov 10, 2019 11:04
--- NOTE | 2019-11-10 11:34 | Immediate Post-Op Evaluation ---
Immediate Post-Op Evalulation Immediate Post-Op Evalulation Procedure: EGD/Colonoscopy Date of Evaluation: Nov 10, 2019 Time of Evaluation: 12:17 IV Fluids: 300 NS Blood Products: 0 Estimated Blood Loss: 4 Urinary Output: 0 Blood Pressure Systolic: 112 Blood Pressure Diastolic: 41 Pulse Rate: 84 Respiratory Rate: 20 O2 Sat by Pulse Oximetry: 97 Temperature (Fahrenheit): 97.4 Pain Score (1-10): 2 Nausea: No Vomiting: No Complications 0 Patient Status: awake, reacts, patent, none Hydration Status: adequate Tommie Barillas MD Nov 10, 2019 11:34
--- NOTE | 2019-11-10 11:35 | 48 Hour Post Anesthesia Eval ---
Post Anesthesia Evaluation Procedure: EGD/Colonoscopy Date of Evaluation: Nov 10, 2019 Time of Evaluation: 14:32 Blood Pressure Systolic: 126 0: 72 Pulse Rate: 81 Respiratory Rate: 20 Temperature (Fahrenheit): 98 O2 Sat by Pulse Oximetry: 94 Airway: patent Nausea: No Vomiting: No Pain Intensity: 1 Hydration Status: adequate Cardiopulmonary Status: Stable Mental Status/LOC: patient returned to baseline Follow-up Care/Observations: 0 Post-Anesthesia Complications: 0 Follow-up care needed: N/A Tommie Barillas MD Nov 10, 2019 11:35
[2019-11-10] MEDS ORDERED: D5NS 1,000 ML IV SCH ×2 (12:30→17:30)
[2019-11-10] MEDS: Acetaminophen 650mg/20.3ml GT PRN (15:49)
--- NOTE | 2019-11-10 17:22 | Nephrology Progress Note ---
Assessment/Plan Problem List: (1) Fever (2) CKD (chronic kidney disease) stage 5, GFR less than 15 ml/min (3) Cirrhosis (4) GI bleed (5) Anemia Plan febrile, culture and meropenam/vanco ordered Subjective Constitutional: Reports: weakness HEENT: Reports: no symptoms Genitourinary: Reports: incontinence Neurologic/Psychiatric: Reports: pre-existing deficit Subjective T102.4 Objective Objective Last 24 Hour Vital Signs Date Time Temp Pulse Resp B/P (MAP) Pulse Ox O2 Delivery O2 Flow Rate FiO2 11/10/19 14:33 98.8 104 22 134/70 (91) 94 11/10/19 14:22 134/70 11/10/19 12:35 97.9 87 24 117/68 94 Nasal Cannula 3 11/10/19 12:25 86 30 117/62 98 Nasal Cannula 3 11/10/19 12:15 85 26 110/60 95 Simple Mask 6 11/10/19 12:10 84 22 117/62 95 Simple Mask 6 11/10/19 12:06 97.4 86 24 110/63 96 Simple Mask 6 11/10/19 12:04 81 20 94 11/10/19 12:03 84 20 97 11/10/19 12:00 87 11/10/19 09:09 111 133/77 11/10/19 09:08 111 133/77 11/10/19 09:00 Nasal Cannula 2.0 11/10/19 08:00 114 11/10/19 05:46 157/88 11/10/19 04:00 98.4 112 20 157/88 (111) 97 11/10/19 04:00 103 11/10/19 00:00 95 11/10/19 00:00 97.2 96 20 150/88 (108) 98 11/09/19 21:51 143/89 11/09/19 21:50 90 143/89 11/09/19 21:00 Nasal Cannula 2.0 11/09/19 20:00 91 11/09/19 20:00 97.7 90 20 143/89 (107) 99 11/09/19 18:24 86 152/82 Intake and Output 11/09/19 11/10/19 19:00 07:00 Intake Total 600 ml Output Total 750 ml Balance -150 ml Intake IV Total 600 ml Output Urine Total 750 ml # Voids 2 # Bowel Movements 2 3 Laboratory Tests 11/10/19 05:46: White Blood Count 14.0#H, Red Blood Count 3.11L, Hemoglobin 9.3L, Hematocrit 28.5L, Mean Corpuscular Volume 92, Mean Corpuscular Hemoglobin 29.9, Mean Corpuscular Hemoglobin Concent 32.7, Red Cell Distribution Width 16.8H, Platelet Count 234, Mean Platelet Volume 7.2, Neutrophils (%) (Auto) , Lymphocytes (%) (Auto) , Monocytes (%) (Auto) , Eosinophils (%) (Auto) , Basophils (%) (Auto) , Differential Total Cells Counted 100, Neutrophils % ( Manual) 92H, Lymphocytes % (Manual) 4L, Monocytes % (Manual) 3, Eosinophils % ( Manual) 0, Basophils % (Manual) 0, Band Neutrophils 1, Platelet Estimate Adequate, Platelet Morphology Normal, Hypochromasia 2+, Anisocytosis 1+, Spherocytes 1+, Sodium Level 149H, Potassium Level 3.6, Chloride Level 113H, Carbon Dioxide Level 24, Anion Gap 12, Blood Urea Nitrogen 31H, Creatinine 3.2H , Estimat Glomerular Filtration Rate , Glucose Level 129H, Calcium Level 9.0, Total Bilirubin 0.5, Aspartate Amino Transf (AST/SGOT) 33, Alanine Aminotransferase (ALT/SGPT) 20, Alkaline Phosphatase 64, Total Protein 7.4, Albumin 2.3L, Globulin 5.1, Albumin/Globulin Ratio 0.5L Height (Feet): 5 Height (Inches): 4.00 Weight (Pounds): 168 General Appearance: no apparent distress, alert, confused EENT: normal ENT inspection Neck: normal alignment Cardiovascular: normal rate, regular rhythm Respiratory/Chest: lungs clear Abdomen: non tender, soft Neurologic: motor weakness Jose Lemus MD Nov 10, 2019 17:22
[2019-11-10] MEDS ORDERED: Vancomycin 1 GM in D5W 275 ML IVPB ONE (18:00)
--- NOTE | 2019-11-10 20:40 | General Progress Note ---
Assessment/Plan Assessment/Plan: Assessment - GIB - Anemia - Azotemia - hypernatremia - OBS - anorexia, s/p GT placement - Cholelithiasis - cirrhosis Recommendations - NPO - increase IVF - PPI - follow CBC - transfuse PRN - EGD/colon today POST PROCEDURE ADDENDUM EGD --> NORMAL, (+) GT, NO BLEEDING COLON --> MILD-MOD DIVERTICULOSIS, NO BLEEDING, LIKELY RESOLVED DIVERTICULAR BLEED Subjective Allergies: Coded Allergies: ERYTHROMYCIN BASE (Unverified Allergy, Intermediate, 07/14/19) Per patient not allergic to medications or food Subjective awake seen in GI LAB (++) BM for procedure Objective Last 24 Hour Vital Signs Date Time Temp Pulse Resp B/P (MAP) Pulse Ox O2 Delivery O2 Flow Rate FiO2 11/10/19 18:44 104 134/70 11/10/19 18:00 99.0 11/10/19 16:19 102.4 11/10/19 16:00 121 11/10/19 16:00 102.0 124 20 134/61 (85) 94 11/10/19 14:33 98.8 104 22 134/70 (91) 94 11/10/19 14:22 134/70 11/10/19 12:35 97.9 87 24 117/68 94 Nasal Cannula 3 11/10/19 12:25 86 30 117/62 98 Nasal Cannula 3 11/10/19 12:15 85 26 110/60 95 Simple Mask 6 11/10/19 12:10 84 22 117/62 95 Simple Mask 6 11/10/19 12:06 97.4 86 24 110/63 96 Simple Mask 6 11/10/19 12:04 81 20 94 11/10/19 12:03 84 20 97 11/10/19 12:00 87 11/10/19 09:09 111 133/77 11/10/19 09:08 111 133/77 11/10/19 09:00 Nasal Cannula 2.0 11/10/19 08:00 114 11/10/19 05:46 157/88 11/10/19 04:00 98.4 112 20 157/88 (111) 97 11/10/19 04:00 103 11/10/19 00:00 95 11/10/19 00:00 97.2 96 20 150/88 (108) 98 11/09/19 21:51 143/89 11/09/19 21:50 90 143/89 11/09/19 21:00 Nasal Cannula 2.0 Intake and Output 11/09/19 11/10/19 19:00 07:00 Intake Total 600 ml Output Total 750 ml Balance -150 ml Intake IV Total 600 ml Output Urine Total 750 ml # Voids 2 # Bowel Movements 2 3 Laboratory Tests 11/10/19 05:46: White Blood Count 14.0#H, Red Blood Count 3.11L, Hemoglobin 9.3L, Hematocrit 28.5L, Mean Corpuscular Volume 92, Mean Corpuscular Hemoglobin 29.9, Mean Corpuscular Hemoglobin Concent 32.7, Red Cell Distribution Width 16.8H, Platelet Count 234, Mean Platelet Volume 7.2, Neutrophils (%) (Auto) , Lymphocytes (%) (Auto) , Monocytes (%) (Auto) , Eosinophils (%) (Auto) , Basophils (%) (Auto) , Differential Total Cells Counted 100, Neutrophils % ( Manual) 92H, Lymphocytes % (Manual) 4L, Monocytes % (Manual) 3, Eosinophils % ( Manual) 0, Basophils % (Manual) 0, Band Neutrophils 1, Platelet Estimate Adequate, Platelet Morphology Normal, Hypochromasia 2+, Anisocytosis 1+, Spherocytes 1+, Sodium Level 149H, Potassium Level 3.6, Chloride Level 113H, Carbon Dioxide Level 24, Anion Gap 12, Blood Urea Nitrogen 31H, Creatinine 3.2H , Estimat Glomerular Filtration Rate , Glucose Level 129H, Calcium Level 9.0, Total Bilirubin 0.5, Aspartate Amino Transf (AST/SGOT) 33, Alanine Aminotransferase (ALT/SGPT) 20, Alkaline Phosphatase 64, Total Protein 7.4, Albumin 2.3L, Globulin 5.1, Albumin/Globulin Ratio 0.5L Height (Feet): 5 Height (Inches): 4.00 Weight (Pounds): 168 Objective WDWN AA woman NCAT supple CTA RRR Abd soft (+) GT no edema Mina Rao MD Nov 10, 2019 20:40
--- NOTE | 2019-11-10 20:49 | General Progress Note ---
Assessment/Plan Problem List: (1) Sepsis ICD Codes: A41.9 - Sepsis, unspecified organism SNOMED: 79103091 (2) Respiratory failure (3) Anemia in chronic kidney disease ICD Codes: N18.9 - Chronic kidney disease, unspecified; D63.1 - Anemia in chronic kidney disease SNOMED: 392421356 (4) Hypothyroidism ICD Codes: E03.9 - Hypothyroidism SNOMED: 10626884 (5) Lower GI bleeding ICD Codes: K92.2 - Gastrointestinal hemorrhage, unspecified SNOMED: 14714497 (6) Fever ICD Codes: R50.9 - Fever, unspecified SNOMED: 421492657 (7) Cirrhosis ICD Codes: K74.60 - Unspecified cirrhosis of liver SNOMED: 39551720 (8) GI bleed ICD Codes: K92.2 - Gastrointestinal hemorrhage, unspecified SNOMED: 16974124 Status: stable, progressing Assessment/Plan: o2 resp care check abg follow up cxr follow up urine studies and cultures coloscopy if stable monitor renal fxn abx per id Subjective ROS Limited/Unobtainable: No Constitutional: Reports: fever, malaise, weakness HEENT: Reports: no symptoms Cardiovascular: Reports: no symptoms Respiratory: Reports: cough, shortness of breath Gastrointestinal/Abdominal: Reports: blood in stool Genitourinary: Reports: no symptoms Neurologic/Psychiatric: Reports: pre-existing deficit Endocrine: Reports: no symptoms Hematologic/Lymphatic: Reports: anemia Allergies: Coded Allergies: ERYTHROMYCIN BASE (Unverified Allergy, Intermediate, 07/14/19) Per patient not allergic to medications or food All Systems: reviewed and negative except above Subjective chart reviewed. admitted for gib/bloody stools. s/p transfusion. currently with fever and hypoxia. pt cultured. cxr ordered. on iv abx. sats stable on venti mask. Objective Last 24 Hour Vital Signs Date Time Temp Pulse Resp B/P (MAP) Pulse Ox O2 Delivery O2 Flow Rate FiO2 11/10/19 18:44 104 134/70 11/10/19 18:00 99.0 11/10/19 16:19 102.4 11/10/19 16:00 121 11/10/19 16:00 102.0 124 20 134/61 (85) 94 11/10/19 14:33 98.8 104 22 134/70 (91) 94 11/10/19 14:22 134/70 11/10/19 12:35 97.9 87 24 117/68 94 Nasal Cannula 3 11/10/19 12:25 86 30 117/62 98 Nasal Cannula 3 11/10/19 12:15 85 26 110/60 95 Simple Mask 6 11/10/19 12:10 84 22 117/62 95 Simple Mask 6 11/10/19 12:06 97.4 86 24 110/63 96 Simple Mask 6 11/10/19 12:04 81 20 94 11/10/19 12:03 84 20 97 11/10/19 12:00 87 11/10/19 09:09 111 133/77 11/10/19 09:08 111 133/77 11/10/19 09:00 Nasal Cannula 2.0 11/10/19 08:00 114 11/10/19 05:46 157/88 11/10/19 04:00 98.4 112 20 157/88 (111) 97 11/10/19 04:00 103 11/10/19 00:00 95 11/10/19 00:00 97.2 96 20 150/88 (108) 98 11/09/19 21:51 143/89 11/09/19 21:50 90 143/89 11/09/19 21:00 Nasal Cannula 2.0 Intake and Output 11/09/19 11/10/19 19:00 07:00 Intake Total 600 ml Output Total 750 ml Balance -150 ml Intake IV Total 600 ml Output Urine Total 750 ml # Voids 2 # Bowel Movements 2 3 Laboratory Tests 11/10/19 05:46: White Blood Count 14.0#H, Red Blood Count 3.11L, Hemoglobin 9.3L, Hematocrit 28.5L, Mean Corpuscular Volume 92, Mean Corpuscular Hemoglobin 29.9, Mean Corpuscular Hemoglobin Concent 32.7, Red Cell Distribution Width 16.8H, Platelet Count 234, Mean Platelet Volume 7.2, Neutrophils (%) (Auto) , Lymphocytes (%) (Auto) , Monocytes (%) (Auto) , Eosinophils (%) (Auto) , Basophils (%) (Auto) , Differential Total Cells Counted 100, Neutrophils % ( Manual) 92H, Lymphocytes % (Manual) 4L, Monocytes % (Manual) 3, Eosinophils % ( Manual) 0, Basophils % (Manual) 0, Band Neutrophils 1, Platelet Estimate Adequate, Platelet Morphology Normal, Hypochromasia 2+, Anisocytosis 1+, Spherocytes 1+, Sodium Level 149H, Potassium Level 3.6, Chloride Level 113H, Carbon Dioxide Level 24, Anion Gap 12, Blood Urea Nitrogen 31H, Creatinine 3.2H , Estimat Glomerular Filtration Rate , Glucose Level 129H, Calcium Level 9.0, Total Bilirubin 0.5, Aspartate Amino Transf (AST/SGOT) 33, Alanine Aminotransferase (ALT/SGPT) 20, Alkaline Phosphatase 64, Total Protein 7.4, Albumin 2.3L, Globulin 5.1, Albumin/Globulin Ratio 0.5L Height (Feet): 5 Height (Inches): 4.00 Weight (Pounds): 168 General Appearance: WD/WN, lethargic Neck: supple Cardiovascular: normal rate Respiratory/Chest: chest wall non-tender, lungs clear, normal breath sounds Abdomen: normal bowel sounds, non tender, soft, no organomegaly Edema: no edema noted Arm (L), no edema noted Arm (R), no edema noted Leg (L), no edema noted Leg (R), no edema noted Pedal (L), no edema noted Pedal (R), no edema noted Generalized Neurologic: responsive Chema Hendricks MD Nov 10, 2019 20:49
--- NOTE | 2019-11-10 21:45 | Procedure Note ---
DATE OF PROCEDURE: 11/10/2019 GASTROENTEROLOGY PROCEDURE REPORT PROCEDURE: Upper gastrointestinal endoscopy with biopsy as well as colonoscopy. SURGEON: Mina Rao M.D. ANESTHESIA: Please see the separate anesthesiologist notes for details. PRE-ENDOSCOPIC DIAGNOSIS: Gastrointestinal bleeding. POST-ENDOSCOPIC DIAGNOSES: 1. Normal upper endoscopy with the expected finding in the gastrostomy tube. 2. Status post random biopsy in the stomach. 3. [id number] left-sided diverticulosis. 4. No evidence of gastrointestinal bleeding during this procedure. DESCRIPTION OF PROCEDURE: The procedure, its risks, indications, alternatives, and possible complications were explained and informed consent was obtained. The patient was then sedated in the left lateral decubitus position. A diagnostic upper endoscope was introduced through the oropharynx and advanced to the duodenum. The endoscope was then gradually withdrawn and the colonoscope was introduced into the rectum and advanced to the cecum. A colonoscope was then gradually withdrawn. Findings were as listed above. The patient tolerated the procedure well and was left to recovery in good condition. COMPLICATIONS: None. RECOMMENDATIONS: 1. Resume tube feeding. 2. Monitor for recurrent bleeding. 3. Elevate head of bed. Mina Rao M.D. DR: ANKIT JOB#: [id number] CC:
[2019-11-10] MEDS: Meropenem 500 MG in NS 55 ML IVPB SCH (22:06)
[2019-11-11] VITALS: BP 126/61
--- NOTE | 2019-11-11 03:00 | Progress Note ---
DATE: 11/10/2019 CARDIOLOGY PROGRESS NOTE SUBJECTIVE: No new bleeding noted; however, the patient has fevers. She is status post panendoscopy notable only for no active bleeding. Diverticulosis on the left and mild gastritis. OBJECTIVE: VITAL SIGNS: Blood pressure 139/69, pulse 105, respiratory rate 20, and T-max 102.4. Monitored sinus tachycardia. LUNGS: Bilateral breath sounds and rhonchi. CARDIAC: Regular rhythm and rate. Normal S1 and S2. ABDOMEN: Soft. Mildly distended. No edema. G-tube intact. LABORATORY DATA: White count 14 and hemoglobin 9.3. Sodium 149, potassium 3.6, bicarbonate 24, BUN 31, creatinine 3.2, and albumin 2.3. IMPRESSION: 1. Probable sepsis. 2. Recent cholecystitis with cholecystostomy tube. 3. Dehydration. 4. Hypernatremia. 5. Gastrointestinal bleeding, resolved likely due to diverticulosis. 6. Hypertensive heart disease. 7. Acute on chronic diastolic congestive heart failure. 8. Chronic kidney disease. PLAN: 1. ID workup in progress. 2. Empiric antimicrobials in place. 3. Change to hypotonic IV fluids. 4. Monitor hemoglobin and maintain current antihypertensive regimen. 5. No diuretic therapy presently indicated. Delmar Toscano JOB#: [id number] CC:
[2019-11-11 03:15] LABS: APPEARANCE,URINE CLOUDY; BILIRUBIN, URINE 1+ (NEGATIVE); GLUCOSE, URINE (UA) NEGATIVE (NEGATIVE); KETONES,URINE NEGATIVE (NEGATIVE); LEUKOCYTE ESTERASE ,URINE 2+ (NEGATIVE); NITRITE,URINE NEGATIVE (NEGATIVE); PH,URINE 5 (4.5-8.0); PROTEIN,URINE 3+ (NEGATIVE); UROBILINOGEN,URINE NORMAL MG/DL (0.0-1.0)
[2019-11-11 03:28] LABS: COLOR,URINE YELLOW
[2019-11-11 04:00] VITALS: BP 155/99
[2019-11-11] MEDS: Levothyroxine 125mcg tab GT SCH (05:38)
[2019-11-11] MEDS: HydrALAZINE 50mg tab GT SCH ×3 (05:38→22:28)
[2019-11-11 07:12] LABS: HEMOGLOBIN 7.7 G/DL (12.0-16.0); MEAN CORPUSCULAR VOLUME 92 FL (80-99); PLATELET COUNT 196 K/UL (150-450); RED BLOOD COUNT 2.61 M/UL (4.20-5.40); RED CELL DISTRIBUTION WIDTH 16.7 % (11.6-14.8); WHITE BLOOD COUNT 9.9 K/UL (4.8-10.8)
[2019-11-11 07:30] LABS: ALANINE AMINOTRANSFERASE 19 U/L (12-78); ALBUMIN/GLOBULIN RATIO 0.4 (1.0-2.7); ALKALINE PHOSPHATASE 62 U/L (46-116); ANION GAP 11 mmol/L (5-15); ASPARTATE AMINO TRANSFERASE 28 U/L (15-37); BILIRUBIN,TOTAL 0.5 MG/DL (0.2-1.0); BLOOD UREA NITROGEN 40 mg/dL (7-18); CALCIUM 8.6 MG/DL (8.5-10.1); CARBON DIOXIDE 26 MMOL/L (21-32); CHLORIDE 111 MMOL/L (98-107); CREATININE 4.5 MG/DL (0.55-1.30); POTASSIUM 3.6 MMOL/L (3.5-5.1); SODIUM 147 MMOL/L (136-145)
--- NOTE | 2019-11-11 07:57 | General Progress Note ---
Assessment/Plan Status: stable, progressing Assessment/Plan: Assessment - GIB - resolved, presumed diverticular - Anemia - Azotemia - worsening - OBS - anorexia, s/p GT placement - Cholelithiasis - cirrhosis Recommendations - Begin TF - nephro, given renal failure - PPI - follow CBC / BMP - transfuse PRN POST PROCEDURE ADDENDUM EGD --> NORMAL, (+) GT, NO BLEEDING COLON --> MILD-MOD DIVERTICULOSIS, NO BLEEDING, LIKELY RESOLVED DIVERTICULAR BLEED Subjective Allergies: Coded Allergies: ERYTHROMYCIN BASE (Unverified Allergy, Intermediate, 07/14/19) Per patient not allergic to medications or food Subjective awake no events overnight Objective Last 24 Hour Vital Signs Date Time Temp Pulse Resp B/P (MAP) Pulse Ox O2 Delivery O2 Flow Rate FiO2 11/11/19 05:38 155/99 11/11/19 04:00 98.0 69 18 155/99 (117) 98 11/11/19 04:00 106 11/11/19 00:00 98.2 100 20 126/61 (82) 96 11/11/19 00:00 103 11/10/19 22:07 139/69 11/10/19 22:07 105 139/69 11/10/19 21:00 94 Venturi Mask 8.0 40 11/10/19 21:00 Nasal Cannula 2.0 11/10/19 20:00 98.4 105 20 139/69 (92) 97 11/10/19 20:00 106 11/10/19 18:44 104 134/70 11/10/19 18:00 99.0 11/10/19 16:19 102.4 11/10/19 16:00 121 11/10/19 16:00 102.0 124 20 134/61 (85) 94 11/10/19 14:33 98.8 104 22 134/70 (91) 94 11/10/19 14:22 134/70 11/10/19 12:35 97.9 87 24 117/68 94 Nasal Cannula 3 11/10/19 12:25 86 30 117/62 98 Nasal Cannula 3 11/10/19 12:15 85 26 110/60 95 Simple Mask 6 11/10/19 12:10 84 22 117/62 95 Simple Mask 6 11/10/19 12:06 97.4 86 24 110/63 96 Simple Mask 6 11/10/19 12:04 81 20 94 11/10/19 12:03 84 20 97 11/10/19 12:00 87 11/10/19 09:09 111 133/77 11/10/19 09:08 111 133/77 11/10/19 09:00 Nasal Cannula 2.0 11/10/19 08:00 114 Intake and Output 11/10/19 11/11/19 19:00 07:00 Intake Total 330 ml Output Total 300 ml Balance 30 ml Intake IV Total 330 ml Output Urine Total 300 ml # Voids 2 # Bowel Movements 2 4 Laboratory Tests 11/10/19 21:09: Arterial Blood pH 7.427, Arterial Blood Partial Pressure CO2 40.1, Arterial Blood Partial Pressure O2 69.8L, Arterial Blood HCO3 25.8, Arterial Blood Oxygen Saturation 93.5L, Arterial Blood Base Excess 1.4, [place] Test Positive 11/11/19 02:30: Urine Color Yellow, Urine Appearance Cloudy, Urine pH 5, Urine Specific [place] 1.020, Urine Protein 3+H, Urine Glucose (UA) Negative, Urine Ketones Negative, Urine Blood 1+H, Urine Nitrite Negative, Urine Bilirubin 1+H, Urine Ictotest Negative, Urine Urobilinogen Normal, Urine Leukocyte Esterase 2+H, Urine RBC 5- 10H, Urine WBC 10-15H, Urine Squamous Epithelial Cells ManyH, Urine Bacteria ManyH, Urine Coarse Granular Casts 5-10H 11/11/19 05:40: White Blood Count 9.9, Red Blood Count 2.61L, Hemoglobin 7.7L, Hematocrit 24.0L , Mean Corpuscular Volume 92, Mean Corpuscular Hemoglobin 29.6, Mean Corpuscular Hemoglobin Concent 32.2, Red Cell Distribution Width 16.7H, Platelet Count 196, Mean Platelet Volume 7.5, Neutrophils (%) (Auto) , Lymphocytes (%) (Auto) , Monocytes (%) (Auto) , Eosinophils (%) (Auto) , Basophils (%) (Auto) , Neutrophils % (Manual) [Pending], Lymphocytes % (Manual) [Pending], Platelet Estimate [Pending], Platelet Morphology [Pending], Sodium Level 147H, Potassium Level 3.6, Chloride Level 111H, Carbon Dioxide Level 26, Anion Gap 11, Blood Urea Nitrogen 40H, Creatinine 4.5H, Estimat Glomerular Filtration Rate , Glucose Level 106, Calcium Level 8.6, Magnesium Level 1.4L, Total Bilirubin 0.5, Aspartate Amino Transf (AST/SGOT) 28, Alanine Aminotransferase (ALT/SGPT) 19, Alkaline Phosphatase 62, Total Protein 6.9, Albumin 2.0L, Globulin 4.9, Albumin/Globulin Ratio 0.4L, Lipase 182 Height (Feet): 5 Height (Inches): 4.00 Weight (Pounds): 168 Objective WDWN AA woman NCAT supple CTA RRR Abd soft (+) GT no edema Mina Rao MD Nov 11, 2019 07:57
[2019-11-11 08:00] VITALS: BP 146/75
[2019-11-11] MEDS: Sodium Citrate 30ml GT SCH ×2 (09:32→17:40)
[2019-11-11] MEDS: Metoprolol Tartrate 50mg tab GT SCH ×2 (09:32→21:01)
[2019-11-11] MEDS: Pantoprazole Inj IVP SCH ×2 (09:32→21:01)
[2019-11-11] MEDS: Meropenem 500 MG in NS 55 ML IVPB SCH (09:35)
--- NOTE | 2019-11-11 10:48 | Nephrology Progress Note ---
Assessment/Plan Problem List: (1) Fever (2) CKD (chronic kidney disease) stage 5, GFR less than 15 ml/min (3) Cirrhosis (4) GI bleed (5) Anemia Plan febrile, culture and meropenam/vanco ordered, ID eval, check bladder residual, cxr hydrate as bun/cr rising Subjective Constitutional: Reports: weakness HEENT: Reports: no symptoms Genitourinary: Reports: incontinence Neurologic/Psychiatric: Reports: pre-existing deficit Subjective T102.4 11/10 Objective Objective Last 24 Hour Vital Signs Date Time Temp Pulse Resp B/P (MAP) Pulse Ox O2 Delivery O2 Flow Rate FiO2 11/11/19 09:32 110 146/75 11/11/19 09:32 110 146/75 11/11/19 08:00 97.7 110 18 146/75 (98) 96 11/11/19 05:38 155/99 11/11/19 04:00 98.0 69 18 155/99 (117) 98 11/11/19 04:00 106 11/11/19 00:00 98.2 100 20 126/61 (82) 96 11/11/19 00:00 103 11/10/19 22:07 139/69 11/10/19 22:07 105 139/69 11/10/19 21:00 94 Venturi Mask 8.0 40 11/10/19 21:00 Nasal Cannula 2.0 11/10/19 20:00 98.4 105 20 139/69 (92) 97 11/10/19 20:00 106 11/10/19 18:44 104 134/70 11/10/19 18:00 99.0 11/10/19 16:19 102.4 11/10/19 16:00 121 11/10/19 16:00 102.0 124 20 134/61 (85) 94 11/10/19 14:33 98.8 104 22 134/70 (91) 94 11/10/19 14:22 134/70 11/10/19 12:35 97.9 87 24 117/68 94 Nasal Cannula 3 11/10/19 12:25 86 30 117/62 98 Nasal Cannula 3 11/10/19 12:15 85 26 110/60 95 Simple Mask 6 11/10/19 12:10 84 22 117/62 95 Simple Mask 6 11/10/19 12:06 97.4 86 24 110/63 96 Simple Mask 6 11/10/19 12:04 81 20 94 11/10/19 12:03 84 20 97 11/10/19 12:00 87 Intake and Output 11/10/19 11/11/19 19:00 07:00 Intake Total 330 ml Output Total 300 ml Balance 30 ml Intake IV Total 330 ml Output Urine Total 300 ml # Voids 2 # Bowel Movements 2 4 Laboratory Tests 11/10/19 21:09: Arterial Blood pH 7.427, Arterial Blood Partial Pressure CO2 40.1, Arterial Blood Partial Pressure O2 69.8L, Arterial Blood HCO3 25.8, Arterial Blood Oxygen Saturation 93.5L, Arterial Blood Base Excess 1.4, [place] Test Positive 11/11/19 02:30: Urine Color Yellow, Urine Appearance Cloudy, Urine pH 5, Urine Specific [place] 1.020, Urine Protein 3+H, Urine Glucose (UA) Negative, Urine Ketones Negative, Urine Blood 1+H, Urine Nitrite Negative, Urine Bilirubin 1+H, Urine Ictotest Negative, Urine Urobilinogen Normal, Urine Leukocyte Esterase 2+H, Urine RBC 5- 10H, Urine WBC 10-15H, Urine Squamous Epithelial Cells ManyH, Urine Bacteria ManyH, Urine Coarse Granular Casts 5-10H 11/11/19 05:40: White Blood Count 9.9, Red Blood Count 2.61L, Hemoglobin 7.7L, Hematocrit 24.0L , Mean Corpuscular Volume 92, Mean Corpuscular Hemoglobin 29.6, Mean Corpuscular Hemoglobin Concent 32.2, Red Cell Distribution Width 16.7H, Platelet Count 196, Mean Platelet Volume 7.5, Neutrophils (%) (Auto) , Lymphocytes (%) (Auto) , Monocytes (%) (Auto) , Eosinophils (%) (Auto) , Basophils (%) (Auto) , Differential Total Cells Counted 100, Neutrophils % ( Manual) 89H, Lymphocytes % (Manual) 10L, Monocytes % (Manual) 1, Eosinophils % ( Manual) 0, Basophils % (Manual) 0, Band Neutrophils 0, Platelet Estimate Adequate, Platelet Morphology Normal, Polychromasia 1+, Hypochromasia 1+, Anisocytosis 1+, Sodium Level 147H, Potassium Level 3.6, Chloride Level 111H, Carbon Dioxide Level 26, Anion Gap 11, Blood Urea Nitrogen 40H, Creatinine 4.5H , Estimat Glomerular Filtration Rate , Glucose Level 106, Calcium Level 8.6, Magnesium Level 1.4L, Total Bilirubin 0.5, Aspartate Amino Transf (AST/SGOT) 28 , Alanine Aminotransferase (ALT/SGPT) 19, Alkaline Phosphatase 62, Total Protein 6.9, Albumin 2.0L, Globulin 4.9, Albumin/Globulin Ratio 0.4L, Lipase 182 Height (Feet): 5 Height (Inches): 4.00 Weight (Pounds): 168 General Appearance: alert, confused EENT: normal ENT inspection Neck: normal alignment Cardiovascular: regular rhythm Respiratory/Chest: other - moans Abdomen: non tender Extremities: no edema Neurologic: motor weakness Jose Lemus MD Nov 11, 2019 10:48
--- NOTE | 2019-11-11 11:15 | Consultation ---
DATE OF CONSULTATION: 11/11/2019 INFECTIOUS DISEASES CONSULTATION CONSULTING PHYSICIAN: Jessica Reyes M.D. REFERRING PHYSICIAN: Lance Rivas M.D. REASON FOR CONSULTATION: Fever. HISTORY OF PRESENTING ILLNESS: This is a 73-year-old lady with history of hypertension, CVA, dementia, pericardial effusion, chronic kidney disease with history of dialysis, who comes in with fevers. She was also found to be anemic. An Infectious Diseases consultation has been obtained for fevers. PAST MEDICAL HISTORY: 1. History of hypertension. 2. Hypothyroidism. 3. CVA. 4. Dementia. 5. Pericardial effusion. 6. Chronic kidney disease. 7. Status post G-tube placement. 8. Congestive heart failure. 9. Arthritis. 10. COPD. SOCIAL HISTORY: She used to be a smoker. She does not smoke anymore. No history of alcohol or drug use. FAMILY HISTORY: Noncontributory. REVIEW OF SYSTEMS: RESPIRATORY: She had fevers. No cough. No shortness of breath or chest pain. CARDIAC: No chest pain. No palpitation. No dizziness. No syncope. GASTROINTESTINAL: No nausea. No vomiting. No abdominal pain. She has diarrhea. MEDICATIONS: As an inpatient, she is on meropenem, levothyroxine, Reglan, hydralazine, Protonix, amlodipine, Prevacid, metoprolol, Benadryl, Imodium, Tylenol, and IV vancomycin. ALLERGIES: To erythromycin noted. PHYSICAL EXAMINATION: VITAL SIGNS: Temperature of 97.7, T-max of 102.4, pulse of 110, respiratory rate of 18, blood pressure 146/75, O2 saturation of 96%. HEENT: Pupils equally reactive to light and accommodation. Mouth appears clean without thrush. NECK: Supple. No adenopathy. No JVD. CARDIOVASCULAR: Regular rate and rhythm. No murmurs. LUNGS: Clear to auscultation bilaterally. No crackles. No wheezes. ABDOMEN: Soft and nontender. G-tube site appears clean. EXTREMITIES: No cyanosis, no clubbing, no edema. LABORATORY AND DIAGNOSTIC DATA: White count of 9.9, hemoglobin 7.7, hematocrit 24, MCV 92, platelet count of 196. Sodium 147, potassium 3.6, chloride 111, bicarb 26, BUN 40, creatinine 4.5, glucose 106, calcium 8.6, total bilirubin 0.5. AST 28, ALT 19, alkaline phosphatase 62. Total protein 6.9. Albumin 2. Lipase of 182. UA showing 10 to 15 white cells. Rectal swab was positive for VRE. Nasal swab was positive for MRSA. ASSESSMENT: This is a 73-year-old lady with history of hypertension, CVA, and dementia, who comes in with fevers and was found to have, 1. Possible urinary tract infection. 2. Would like to rule out pneumonia as a possibility. 3. Renal failure. 4. Hypertension. 5. CVA. 6. Leukocytosis has resolved. PLAN: 1. Discontinue IV vancomycin and meropenem. 2. We will start the patient on Zosyn. 3. We will order a chest x-ray. 4. We will order urine cultures. 5. We will follow up cultures and adjust antibiotics accordingly. I would like to thank, Dr. Rivas, for this consultation. Jessica Reyes M.D. DR: JEREMÍAS JOB#: [id number] CC: Lance Rivas M.D.
[2019-11-11] MEDS: Piperacillin/Tazobactam 3.375 GM in NS 110 ML IVPB SCH (11:58)
[2019-11-11 12:00] VITALS: BP 123/62
--- NOTE | 2019-11-11 13:12 | General Progress Note ---
Assessment/Plan Problem List: (1) Sepsis ICD Codes: A41.9 - Sepsis, unspecified organism SNOMED: 66569886 (2) Respiratory failure (3) Anemia in chronic kidney disease ICD Codes: N18.9 - Chronic kidney disease, unspecified; D63.1 - Anemia in chronic kidney disease SNOMED: 066767726 (4) Hypothyroidism ICD Codes: E03.9 - Hypothyroidism SNOMED: 56857537 (5) Lower GI bleeding ICD Codes: K92.2 - Gastrointestinal hemorrhage, unspecified SNOMED: 08019668 (6) Fever ICD Codes: R50.9 - Fever, unspecified SNOMED: 173725682 (7) Cirrhosis ICD Codes: K74.60 - Unspecified cirrhosis of liver SNOMED: 19948725 (8) GI bleed ICD Codes: K92.2 - Gastrointestinal hemorrhage, unspecified SNOMED: 03390990 Status: stable, progressing Assessment/Plan: o2 resp care follow up cxr follow up cultures coloscopy if stable monitor renal fxn abx per id transfuse Subjective ROS Limited/Unobtainable: No Constitutional: Reports: malaise, weakness HEENT: Reports: no symptoms Cardiovascular: Reports: no symptoms Respiratory: Reports: shortness of breath Gastrointestinal/Abdominal: Reports: difficulty swallowing, poor appetite Genitourinary: Reports: no symptoms Neurologic/Psychiatric: Reports: pre-existing deficit Endocrine: Reports: no symptoms Hematologic/Lymphatic: Reports: anemia Allergies: Coded Allergies: ERYTHROMYCIN BASE (Unverified Allergy, Intermediate, 07/14/19) Per patient not allergic to medications or food All Systems: reviewed and negative except above Subjective no events. remains on venti mask. no attempts at weaning fio2. no more feves. wbc down today. more anemic. ID noted. On iv abx. Objective Last 24 Hour Vital Signs Date Time Temp Pulse Resp B/P (MAP) Pulse Ox O2 Delivery O2 Flow Rate FiO2 11/11/19 12:00 103 11/11/19 12:00 97.7 106 18 123/62 (82) 96 11/11/19 09:32 110 146/75 11/11/19 09:32 110 146/75 11/11/19 09:00 Nasal Cannula 2.0 11/11/19 08:00 97.7 110 18 146/75 (98) 96 11/11/19 08:00 111 11/11/19 05:38 155/99 11/11/19 04:00 98.0 69 18 155/99 (117) 98 11/11/19 04:00 106 11/11/19 00:00 98.2 100 20 126/61 (82) 96 11/11/19 00:00 103 11/10/19 22:07 139/69 11/10/19 22:07 105 139/69 11/10/19 21:00 94 Venturi Mask 8.0 40 11/10/19 21:00 Nasal Cannula 2.0 11/10/19 20:00 98.4 105 20 139/69 (92) 97 11/10/19 20:00 106 11/10/19 18:44 104 134/70 11/10/19 18:00 99.0 11/10/19 16:19 102.4 11/10/19 16:00 121 11/10/19 16:00 102.0 124 20 134/61 (85) 94 11/10/19 14:33 98.8 104 22 134/70 (91) 94 11/10/19 14:22 134/70 Intake and Output 11/10/19 11/11/19 19:00 07:00 Intake Total 330 ml Output Total 300 ml Balance 30 ml Intake IV Total 330 ml Output Urine Total 300 ml # Voids 2 # Bowel Movements 2 4 Laboratory Tests 11/10/19 21:09: Arterial Blood pH 7.427, Arterial Blood Partial Pressure CO2 40.1, Arterial Blood Partial Pressure O2 69.8L, Arterial Blood HCO3 25.8, Arterial Blood Oxygen Saturation 93.5L, Arterial Blood Base Excess 1.4, [place] Test Positive 11/11/19 02:30: Urine Color Yellow, Urine Appearance Cloudy, Urine pH 5, Urine Specific [place] 1.020, Urine Protein 3+H, Urine Glucose (UA) Negative, Urine Ketones Negative, Urine Blood 1+H, Urine Nitrite Negative, Urine Bilirubin 1+H, Urine Ictotest Negative, Urine Urobilinogen Normal, Urine Leukocyte Esterase 2+H, Urine RBC 5- 10H, Urine WBC 10-15H, Urine Squamous Epithelial Cells ManyH, Urine Bacteria ManyH, Urine Coarse Granular Casts 5-10H 11/11/19 05:40: White Blood Count 9.9, Red Blood Count 2.61L, Hemoglobin 7.7L, Hematocrit 24.0L , Mean Corpuscular Volume 92, Mean Corpuscular Hemoglobin 29.6, Mean Corpuscular Hemoglobin Concent 32.2, Red Cell Distribution Width 16.7H, Platelet Count 196, Mean Platelet Volume 7.5, Neutrophils (%) (Auto) , Lymphocytes (%) (Auto) , Monocytes (%) (Auto) , Eosinophils (%) (Auto) , Basophils (%) (Auto) , Differential Total Cells Counted 100, Neutrophils % ( Manual) 89H, Lymphocytes % (Manual) 10L, Monocytes % (Manual) 1, Eosinophils % ( Manual) 0, Basophils % (Manual) 0, Band Neutrophils 0, Platelet Estimate Adequate, Platelet Morphology Normal, Polychromasia 1+, Hypochromasia 1+, Anisocytosis 1+, Sodium Level 147H, Potassium Level 3.6, Chloride Level 111H, Carbon Dioxide Level 26, Anion Gap 11, Blood Urea Nitrogen 40H, Creatinine 4.5H , Estimat Glomerular Filtration Rate , Glucose Level 106, Calcium Level 8.6, Magnesium Level 1.4L, Total Bilirubin 0.5, Aspartate Amino Transf (AST/SGOT) 28 , Alanine Aminotransferase (ALT/SGPT) 19, Alkaline Phosphatase 62, Total Protein 6.9, Albumin 2.0L, Globulin 4.9, Albumin/Globulin Ratio 0.4L, Lipase 182 Height (Feet): 5 Height (Inches): 4.00 Weight (Pounds): 168 Chema Hendricks MD Nov 11, 2019 13:12
--- NOTE | 2019-11-11 13:56 | Diagnostic Imaging Report ---
Indication: Dyspnea Comparison: 10/25/2019 A single view chest radiograph was obtained. Findings: There is a area of ill-defined consolidation in the left perihilar region suspicious for pneumonia. Please correlate clinically. Pulmonary vascularity is within normal limits. Generalized cardiomegaly noted. Bones are osteopenic. IMPRESSION: Suspected pneumonia in the left perihilar region
[2019-11-11 16:00] VITALS: BP 159/68
[2019-11-11] MEDS: Acetaminophen 650mg/20.3ml GT PRN ×2 (16:14→21:02)
--- NOTE | 2019-11-11 19:45 | Progress Note ---
DATE: 11/11/2019 CARDIOLOGY PROGRESS NOTE SUBJECTIVE: Remains on Ventimask. Respiratory distress and hypoxia at times. No fevers today. Leukocytosis trending down. Blood pressure parameters at baseline. No new GI bleeding. OBJECTIVE: VITAL SIGNS: Blood pressure 123/62 to 159/68, heart rate 110, respiratory rate 18, and afebrile. LUNGS: Diminished breath sounds. Few rhonchi. CARDIAC: Regular rhythm and rate. Normal S1, S2 with a fourth heart sound. No rub. ABDOMEN: Soft. G-tube intact. EXTREMITIES: No edema. DIAGNOSTIC DATA: Chest x-ray today reveals pneumonia in the left perihilar region. IMPRESSION: 1. Healthcare-acquired pneumonia. 2. Hypertensive heart disease. 3. Chronic kidney disease. 4. Acute on chronic diastolic congestive heart failure. 5. History of pericardial effusion. 6. Hypothyroidism. 7. Sinus tachycardia. PLAN: 1. Antimicrobials. 2. Respiratory hygiene. 3. Recheck TSH. 4. Continue beta-boris. 5. DVT prophylaxis. Lance Rivas M.D. DR: ELVIA JOB#: [id number] CC:
[2019-11-11 20:00] VITALS: BP 137/68
[2019-11-11] MEDS: Loperamide 2mg cap ORAL PRN (21:02)
[2019-11-12] VITALS (8 sets, daily range): BP systolic 129–157; BP diastolic 65–86
[2019-11-12] MEDS: Piperacillin/Tazobactam 3.375 GM in NS 110 ML IVPB SCH ×2 (00:29→15:18)
[2019-11-12] MEDS: HydrALAZINE 50mg tab GT SCH ×3 (06:12→22:30)
[2019-11-12] MEDS: Levothyroxine 125mcg tab GT SCH (06:12)
[2019-11-12 06:50] LABS: HEMATOCRIT 24.9 % (37.0-47.0); MEAN CORPUSCULAR VOLUME 92 FL (80-99); PLATELET COUNT 193 K/UL (150-450); RED BLOOD COUNT 2.71 M/UL (4.20-5.40); RED CELL DISTRIBUTION WIDTH 16.5 % (11.6-14.8); WHITE BLOOD COUNT 8.5 K/UL (4.8-10.8)
[2019-11-12 06:57] LABS: ANION GAP 12 mmol/L (5-15); BLOOD UREA NITROGEN 44 mg/dL (7-18); CALCIUM 8.2 MG/DL (8.5-10.1); CARBON DIOXIDE 22 MMOL/L (21-32); CHLORIDE 109 MMOL/L (98-107); CREATININE 4.8 MG/DL (0.55-1.30); POTASSIUM 3.1 MMOL/L (3.5-5.1); SODIUM 143 MMOL/L (136-145)
[2019-11-12 07:53] LABS: CREATINE KINASE 35 U/L (26-308)
[2019-11-12] MEDS: Sodium Citrate 30ml GT SCH ×2 (08:37→17:18)
[2019-11-12] MEDS: Metoprolol Tartrate 50mg tab GT SCH ×2 (08:38→22:30)
[2019-11-12] MEDS: Pantoprazole Inj IVP SCH (08:38)
--- NOTE | 2019-11-12 08:54 | General Progress Note ---
Assessment/Plan Status: stable, progressing Assessment/Plan: Assessment - GIB - resolved, presumed diverticular - Anemia - Azotemia - worsening - loose stools- ? TF related, ? abx related ? meds - OBS - anorexia, s/p GT placement - Cholelithiasis - cirrhosis Recommendations - continue TF - d/c IV Reglan and Protonix - monitor BM - PPI - follow CBC / BMP - transfuse PRN Subjective Allergies: Coded Allergies: ERYTHROMYCIN BASE (Unverified Allergy, Intermediate, 07/14/19) Per patient not allergic to medications or food Subjective more congested this am tolerating TF fever noted stools loose Objective Last 24 Hour Vital Signs Date Time Temp Pulse Resp B/P (MAP) Pulse Ox O2 Delivery O2 Flow Rate FiO2 11/12/19 08:39 80 155/84 11/12/19 08:38 80 155/84 11/12/19 08:08 93 Nasal Cannula 3.0 32 11/12/19 06:12 148/79 11/12/19 04:00 98.2 98 20 145/78 (100) 93 11/12/19 04:00 98 11/12/19 00:00 97.7 100 24 129/75 (93) 94 11/12/19 00:00 100 11/11/19 22:28 144/74 11/11/19 21:35 100.5 11/11/19 21:01 108 135/68 11/11/19 21:00 Nasal Cannula 3.0 11/11/19 20:38 96 Venturi Mask 8.0 40 11/11/19 20:00 101.6 109 20 137/68 (91) 95 11/11/19 20:00 109 11/11/19 17:40 111 159/68 11/11/19 16:00 101.8 111 19 159/68 (98) 92 11/11/19 16:00 114 11/11/19 13:58 123/62 11/11/19 12:00 103 11/11/19 12:00 97.7 106 18 123/62 (82) 96 11/11/19 09:32 110 146/75 11/11/19 09:32 110 146/75 11/11/19 09:00 Nasal Cannula 2.0 Intake and Output 11/11/19 11/12/19 19:00 07:00 Intake Total 35 ml 135 ml Output Total 400 ml Balance -365 ml 135 ml Intake Free Water 100 ml Tube Feeding 35 ml 35 ml Output Urine Total 400 ml # Voids 3 # Bowel Movements 1 3 Laboratory Tests 11/11/19 12:30: Urine Random Sodium 65, Urine Creatinine 108.9 11/12/19 06:06: White Blood Count 8.5, Red Blood Count 2.71L, Hemoglobin 8.0L, Hematocrit 24.9L , Mean Corpuscular Volume 92, Mean Corpuscular Hemoglobin 29.4, Mean Corpuscular Hemoglobin Concent 32.0, Red Cell Distribution Width 16.5H, Platelet Count 193, Mean Platelet Volume 7.6, Neutrophils (%) (Auto) , Lymphocytes (%) (Auto) , Monocytes (%) (Auto) , Eosinophils (%) (Auto) , Basophils (%) (Auto) , Differential Total Cells Counted 100, Neutrophils % ( Manual) 86H, Lymphocytes % (Manual) 9L, Monocytes % (Manual) 4, Eosinophils % ( Manual) 1, Basophils % (Manual) 0, Band Neutrophils 0, Platelet Estimate Adequate, Platelet Morphology Normal, Polychromasia 1+, Anisocytosis 1+, Sodium Level 143, Potassium Level 3.1L, Chloride Level 109H, Carbon Dioxide Level 22, Anion Gap 12, Blood Urea Nitrogen 44H, Creatinine 4.8H, Estimat Glomerular Filtration Rate , Glucose Level 106, Uric Acid 15.1H, Calcium Level 8.2L, Total Creatine Kinase 35, Thyroid Stimulating Hormone (TSH) 20.288H Height (Feet): 5 Height (Inches): 4.00 Weight (Pounds): 182 Objective WDWN AA woman NCAT supple Chest coarase magaly MCGINNISR Abd soft (+) GT no edema Mina Rao MD Nov 12, 2019 08:53
--- NOTE | 2019-11-12 09:26 | General Progress Note ---
Assessment/Plan Problem List: (1) Sepsis ICD Codes: A41.9 - Sepsis, unspecified organism SNOMED: 52769061 (2) Respiratory failure (3) Anemia in chronic kidney disease ICD Codes: N18.9 - Chronic kidney disease, unspecified; D63.1 - Anemia in chronic kidney disease SNOMED: 188712189 (4) Hypothyroidism ICD Codes: E03.9 - Hypothyroidism SNOMED: 86758000 (5) Lower GI bleeding ICD Codes: K92.2 - Gastrointestinal hemorrhage, unspecified SNOMED: 84648696 (6) Fever ICD Codes: R50.9 - Fever, unspecified SNOMED: 929863595 (7) Cirrhosis ICD Codes: K74.60 - Unspecified cirrhosis of liver SNOMED: 54297849 (8) GI bleed ICD Codes: K92.2 - Gastrointestinal hemorrhage, unspecified SNOMED: 73071019 Status: stable, progressing Assessment/Plan: o2 resp care follow up cultures monitor renal fxn abx per id transfuse cautious hydration replace lytes Subjective ROS Limited/Unobtainable: No Constitutional: Reports: malaise, weakness HEENT: Reports: no symptoms Cardiovascular: Reports: no symptoms Respiratory: Reports: shortness of breath Gastrointestinal/Abdominal: Reports: difficulty swallowing Genitourinary: Reports: no symptoms Neurologic/Psychiatric: Reports: pre-existing deficit Endocrine: Reports: no symptoms Hematologic/Lymphatic: Reports: anemia Allergies: Coded Allergies: ERYTHROMYCIN BASE (Unverified Allergy, Intermediate, 07/14/19) Per patient not allergic to medications or food All Systems: reviewed and negative except above Subjective on nasal cannula. no bleeding. no fevers or chills. on iv abx. tolerating feeds. Objective Last 24 Hour Vital Signs Date Time Temp Pulse Resp B/P (MAP) Pulse Ox O2 Delivery O2 Flow Rate FiO2 11/12/19 08:39 80 155/84 11/12/19 08:38 80 155/84 11/12/19 08:08 93 Nasal Cannula 3.0 32 11/12/19 06:12 148/79 11/12/19 04:00 98.2 98 20 145/78 (100) 93 11/12/19 04:00 98 11/12/19 00:00 97.7 100 24 129/75 (93) 94 11/12/19 00:00 100 11/11/19 22:28 144/74 11/11/19 21:35 100.5 11/11/19 21:01 108 135/68 11/11/19 21:00 Nasal Cannula 3.0 11/11/19 20:38 96 Venturi Mask 8.0 40 11/11/19 20:00 101.6 109 20 137/68 (91) 95 11/11/19 20:00 109 11/11/19 17:40 111 159/68 11/11/19 16:00 101.8 111 19 159/68 (98) 92 11/11/19 16:00 114 11/11/19 13:58 123/62 11/11/19 12:00 103 11/11/19 12:00 97.7 106 18 123/62 (82) 96 11/11/19 09:32 110 146/75 11/11/19 09:32 110 146/75 Intake and Output 11/11/19 11/12/19 19:00 07:00 Intake Total 35 ml 135 ml Output Total 400 ml Balance -365 ml 135 ml Intake Free Water 100 ml Tube Feeding 35 ml 35 ml Output Urine Total 400 ml # Voids 3 # Bowel Movements 1 3 Laboratory Tests 11/11/19 12:30: Urine Random Sodium 65, Urine Creatinine 108.9 11/12/19 06:06: White Blood Count 8.5, Red Blood Count 2.71L, Hemoglobin 8.0L, Hematocrit 24.9L , Mean Corpuscular Volume 92, Mean Corpuscular Hemoglobin 29.4, Mean Corpuscular Hemoglobin Concent 32.0, Red Cell Distribution Width 16.5H, Platelet Count 193, Mean Platelet Volume 7.6, Neutrophils (%) (Auto) , Lymphocytes (%) (Auto) , Monocytes (%) (Auto) , Eosinophils (%) (Auto) , Basophils (%) (Auto) , Differential Total Cells Counted 100, Neutrophils % ( Manual) 86H, Lymphocytes % (Manual) 9L, Monocytes % (Manual) 4, Eosinophils % ( Manual) 1, Basophils % (Manual) 0, Band Neutrophils 0, Platelet Estimate Adequate, Platelet Morphology Normal, Polychromasia 1+, Anisocytosis 1+, Sodium Level 143, Potassium Level 3.1L, Chloride Level 109H, Carbon Dioxide Level 22, Anion Gap 12, Blood Urea Nitrogen 44H, Creatinine 4.8H, Estimat Glomerular Filtration Rate , Glucose Level 106, Uric Acid 15.1H, Calcium Level 8.2L, Total Creatine Kinase 35, Thyroid Stimulating Hormone (TSH) 20.288H Height (Feet): 5 Height (Inches): 4.00 Weight (Pounds): 182 General Appearance: WD/WN, alert Neck: supple Cardiovascular: regular rhythm Respiratory/Chest: chest wall non-tender, lungs clear, normal breath sounds, no respiratory distress, no accessory muscle use Abdomen: normal bowel sounds, non tender, soft, no organomegaly, no mass Edema: no edema noted Arm (L), no edema noted Arm (R), no edema noted Leg (L), no edema noted Leg (R), no edema noted Pedal (L), no edema noted Pedal (R), no edema noted 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
--- NOTE | 2019-11-12 10:10 | Diagnostic Imaging Report ---
EXAM: XR Chest, 1 View CLINICAL HISTORY: COUGH TECHNIQUE: Frontal view of the chest. COMPARISON: Chest x-ray 10/25/19 FINDINGS: Lungs: Interstitial and airspace opacities, new since prior study, worse in the left lung. Pleural space: Tiny right pleural effusion. No pneumothorax. Heart: Cardiomegaly. Mediastinum: Unremarkable. Bones/joints: Unremarkable. IMPRESSION: Interstitial and airspace opacities, new since prior study, worse in the left lung. Tiny right pleural effusion. Query CHF versus pneumonia.
--- NOTE | 2019-11-12 10:19 | Infectious Diseases Prog Note ---
Assessment/Plan Assessment/Plan antibiotics : zosyn A 1. pneumonia 2. renal failure 3. leucocytosis resolved 4. fever 5. CVA 6. hypertension P 1. continue zosyn 2. will follow up cultures Subjective Constitutional: Denies: fever, chills Respiratory: Denies: shortness of breath, dry cough Gastrointestinal/Abdominal: Denies: nausea, vomiting, diarrhea Musculoskeletal: Denies: pain Allergies: Coded Allergies: ERYTHROMYCIN BASE (Unverified Allergy, Intermediate, 07/14/19) Per patient not allergic to medications or food Objective Vital Signs Last 24 Hour Vital Signs Date Time Temp Pulse Resp B/P (MAP) Pulse Ox O2 Delivery O2 Flow Rate FiO2 11/12/19 10:00 98.1 95 20 146/84 (104) 11/12/19 09:00 Nasal Cannula 3.0 11/12/19 08:39 80 155/84 11/12/19 08:38 80 155/84 11/12/19 08:08 93 Nasal Cannula 3.0 32 11/12/19 08:00 98.6 80 20 155/84 (107) 96 11/12/19 06:12 148/79 11/12/19 04:00 98.2 98 20 145/78 (100) 93 11/12/19 04:00 98 11/12/19 00:00 97.7 100 24 129/75 (93) 94 11/12/19 00:00 100 11/11/19 22:28 144/74 11/11/19 21:35 100.5 11/11/19 21:01 108 135/68 11/11/19 21:00 Nasal Cannula 3.0 11/11/19 20:38 96 Venturi Mask 8.0 40 11/11/19 20:00 101.6 109 20 137/68 (91) 95 11/11/19 20:00 109 11/11/19 17:40 111 159/68 11/11/19 16:00 101.8 111 19 159/68 (98) 92 11/11/19 16:00 114 11/11/19 13:58 123/62 11/11/19 12:00 103 11/11/19 12:00 97.7 106 18 123/62 (82) 96 Height (Feet): 5 Height (Inches): 4.00 Weight (Pounds): 182 Respiratory/Chest: lungs clear Cardiovascular: normal rate, regular rhythm, no gallop/murmur Abdomen: soft, non tender, other - GT Extremities: no edema Microbiology Date/Time Source Procedure Growth Status 11/10/19 20:18 Blood Blood Culture - Preliminary NO GROWTH AFTER 24 HOURS Resulted 11/10/19 20:15 Blood Blood Culture - Preliminary NO GROWTH AFTER 24 HOURS Resulted 11/11/19 02:30 Straight Cath Urine Culture - Preliminary Mixed Gram Positive Organism Resulted Laboratory Tests Test 11/11/19 12:30 11/12/19 06:06 Urine Random Sodium 65 mmol/L (20-110) Urine Creatinine 108.9 MG/DL (30.0-125.0) White Blood Count 8.5 K/UL (4.8-10.8) Red Blood Count 2.71 M/UL (4.20-5.40) L Hemoglobin 8.0 G/DL (12.0-16.0) L Hematocrit 24.9 % (37.0-47.0) L Mean Corpuscular Volume 92 FL (80-99) Mean Corpuscular Hemoglobin 29.4 PG (27.0-31.0) Mean Corpuscular Hemoglobin Concent 32.0 G/DL (32.0-36.0) Red Cell Distribution Width 16.5 % (11.6-14.8) H Platelet Count 193 K/UL (150-450) Mean Platelet Volume 7.6 FL (6.5-10.1) Neutrophils (%) (Auto) % (45.0-75.0) Lymphocytes (%) (Auto) % (20.0-45.0) Monocytes (%) (Auto) % (1.0-10.0) Eosinophils (%) (Auto) % (0.0-3.0) Basophils (%) (Auto) % (0.0-2.0) Differential Total Cells Counted 100 Neutrophils % (Manual) 86 % (45-75) H Lymphocytes % (Manual) 9 % (20-45) L Monocytes % (Manual) 4 % (1-10) Eosinophils % (Manual) 1 % (0-3) Basophils % (Manual) 0 % (0-2) Band Neutrophils 0 % (0-8) Platelet Estimate Adequate Platelet Morphology Normal Polychromasia 1+ Anisocytosis 1+ Sodium Level 143 MMOL/L (136-145) Potassium Level 3.1 MMOL/L (3.5-5.1) L Chloride Level 109 MMOL/L (98-107) H Carbon Dioxide Level 22 MMOL/L (21-32) Anion Gap 12 mmol/L (5-15) Blood Urea Nitrogen 44 mg/dL (7-18) H Creatinine 4.8 MG/DL (0.55-1.30) H Estimat Glomerular Filtration Rate mL/min (>60) Glucose Level 106 MG/DL (74-106) Uric Acid 15.1 MG/DL (2.6-7.2) H Calcium Level 8.2 MG/DL (8.5-10.1) L Total Creatine Kinase 35 U/L (26-308) Thyroid Stimulating Hormone (TSH) 20.288 uiU/mL (0.358-3.740) Current Medications Medications (Trade) Dose Ordered Sig/Jonathan Route PRN Reason Start Time Stop Time Status Last Admin Dose Admin Acetaminophen (Tylenol) 650 mg Q4H PRN GT Pain Scale (3-5) 11/08/19 07:15 12/08/19 07:14 11/11/19 21:02 Amlodipine Besylate (Norvasc) 5 mg BID GT 11/08/19 09:00 12/08/19 08:59 11/12/19 08:39 Diphenhydramine HCl (Benadryl) 25 mg Q6H PRN ORAL Itching 11/08/19 07:15 12/08/19 07:14 Hydralazine HCl (Apresoline) 100 mg Q8HR GT 11/08/19 14:00 12/08/19 13:59 11/12/19 06:12 Lansoprazole (Prevacid) 30 mg DAILY GT 11/08/19 09:00 12/08/19 08:59 11/12/19 08:38 Levothyroxine Sodium (Synthroid) 150 mcg ACBREAKFAST GT 11/13/19 06:30 12/13/19 06:29 Loperamide HCl (Imodium) 2 mg Q12HR PRN ORAL Diarrhea 11/08/19 07:15 12/08/19 07:14 11/11/19 21:02 Metoprolol Tartrate (Lopressor) 50 mg Q12HR GT 11/08/19 09:00 1/20/20 08:59 11/12/19 08:38 Piperacillin Sod/ Tazobactam Sod 3.375 gm/Sodium Chloride 110 ml @ 27.5 mls/hr Q12H IVPB 11/11/19 12:00 11/18/19 11:59 11/12/19 00:29 Sodium Chloride 1,000 ml @ 125 mls/hr Q8H IV 11/11/19 11:00 12/11/19 10:59 11/12/19 00:50 Sodium Citrate (Bicitra) 30 ml BID GT 11/08/19 09:00 12/08/19 08:59 11/12/19 08:37 Jessica Reyes MD Nov 12, 2019 10:19
--- NOTE | 2019-11-12 11:53 | Nephrology Progress Note ---
Assessment/Plan Problem List: (1) Fever (2) CKD (chronic kidney disease) stage 5, GFR less than 15 ml/min (3) Cirrhosis (4) GI bleed (5) Anemia Plan febrile, culture and antibiotics ordered, ID eval, check bladder residual,now quintana, cxr hydrate as bun/cr rising, high uric Subjective Constitutional: Reports: weakness HEENT: Reports: no symptoms Genitourinary: Reports: incontinence Neurologic/Psychiatric: Reports: pre-existing deficit Subjective T102.4 11/10 Objective Objective Last 24 Hour Vital Signs Date Time Temp Pulse Resp B/P (MAP) Pulse Ox O2 Delivery O2 Flow Rate FiO2 11/12/19 10:15 97.7 94 20 141/70 (93) 11/12/19 10:00 98.1 95 20 146/84 (104) 11/12/19 09:00 Nasal Cannula 3.0 11/12/19 08:39 80 155/84 11/12/19 08:38 80 155/84 11/12/19 08:08 93 Nasal Cannula 3.0 32 11/12/19 08:00 98.6 80 20 155/84 (107) 96 11/12/19 07:43 92 11/12/19 06:12 148/79 11/12/19 04:00 98.2 98 20 145/78 (100) 93 11/12/19 04:00 98 11/12/19 00:00 97.7 100 24 129/75 (93) 94 11/12/19 00:00 100 11/11/19 22:28 144/74 11/11/19 21:35 100.5 11/11/19 21:01 108 135/68 11/11/19 21:00 Nasal Cannula 3.0 11/11/19 20:38 96 Venturi Mask 8.0 40 11/11/19 20:00 101.6 109 20 137/68 (91) 95 11/11/19 20:00 109 11/11/19 17:40 111 159/68 11/11/19 16:00 101.8 111 19 159/68 (98) 92 11/11/19 16:00 114 11/11/19 13:58 123/62 11/11/19 12:00 103 11/11/19 12:00 97.7 106 18 123/62 (82) 96 Intake and Output 11/11/19 11/12/19 19:00 07:00 Intake Total 35 ml 135 ml Output Total 400 ml Balance -365 ml 135 ml Intake Free Water 100 ml Tube Feeding 35 ml 35 ml Output Urine Total 400 ml # Voids 3 # Bowel Movements 1 3 Laboratory Tests 11/11/19 12:30: Urine Random Sodium 65, Urine Creatinine 108.9 11/12/19 06:06: White Blood Count 8.5, Red Blood Count 2.71L, Hemoglobin 8.0L, Hematocrit 24.9L , Mean Corpuscular Volume 92, Mean Corpuscular Hemoglobin 29.4, Mean Corpuscular Hemoglobin Concent 32.0, Red Cell Distribution Width 16.5H, Platelet Count 193, Mean Platelet Volume 7.6, Neutrophils (%) (Auto) , Lymphocytes (%) (Auto) , Monocytes (%) (Auto) , Eosinophils (%) (Auto) , Basophils (%) (Auto) , Differential Total Cells Counted 100, Neutrophils % ( Manual) 86H, Lymphocytes % (Manual) 9L, Monocytes % (Manual) 4, Eosinophils % ( Manual) 1, Basophils % (Manual) 0, Band Neutrophils 0, Platelet Estimate Adequate, Platelet Morphology Normal, Polychromasia 1+, Anisocytosis 1+, Sodium Level 143, Potassium Level 3.1L, Chloride Level 109H, Carbon Dioxide Level 22, Anion Gap 12, Blood Urea Nitrogen 44H, Creatinine 4.8H, Estimat Glomerular Filtration Rate , Glucose Level 106, Uric Acid 15.1H, Calcium Level 8.2L, Total Creatine Kinase 35, Thyroid Stimulating Hormone (TSH) 20.288H Height (Feet): 5 Height (Inches): 4.00 Weight (Pounds): 182 General Appearance: alert, confused EENT: normal ENT inspection Neck: normal alignment Cardiovascular: normal rate, regular rhythm Respiratory/Chest: rhonchi - bilaterally Abdomen: non tender, soft Extremities: trace edema Neurologic: motor weakness Jose Lemus MD Nov 12, 2019 11:53
[2019-11-12] MEDS: Loperamide 2mg cap ORAL PRN (15:18)
[2019-11-13] VITALS: BP 127/66
[2019-11-13] MEDS: Piperacillin/Tazobactam 3.375 GM in NS 110 ML IVPB SCH ×3 (02:30→23:23)
[2019-11-13 04:00] VITALS: BP 137/68
[2019-11-13] MEDS: HydrALAZINE 50mg tab GT SCH ×3 (06:21→23:22)
[2019-11-13 07:39] LABS: ALANINE AMINOTRANSFERASE 16 U/L (12-78); ALBUMIN/GLOBULIN RATIO 0.4 (1.0-2.7); ALKALINE PHOSPHATASE 52 U/L (46-116); ANION GAP 10 mmol/L (5-15); ASPARTATE AMINO TRANSFERASE 29 U/L (15-37); BILIRUBIN,TOTAL 0.4 MG/DL (0.2-1.0); BLOOD UREA NITROGEN 48 mg/dL (7-18); CALCIUM 8.3 MG/DL (8.5-10.1); CARBON DIOXIDE 23 MMOL/L (21-32); CHLORIDE 112 MMOL/L (98-107); CREATININE 4.8 MG/DL (0.55-1.30); POTASSIUM 3.9 MMOL/L (3.5-5.1); SODIUM 145 MMOL/L (136-145)
[2019-11-13 07:45] LABS: BASOPHILS % (AUTO) 0.7 % (0.0-2.0); EOSINOPHILS % (AUTO) 0.9 % (0.0-3.0); HEMATOCRIT 26.3 % (37.0-47.0); HEMOGLOBIN 8.9 G/DL (12.0-16.0); LYMPHOCYTES % (AUTO) 10.1 % (20.0-45.0); MEAN CORPUSCULAR VOLUME 90 FL (80-99); MONOCYTES % (AUTO) 7.6 % (1.0-10.0); NEUTROPHILS % (AUTO) 80.7 % (45.0-75.0); PLATELET COUNT 204 K/UL (150-450); RED BLOOD COUNT 2.94 M/UL (4.20-5.40); RED CELL DISTRIBUTION WIDTH 15.8 % (11.6-14.8); WHITE BLOOD COUNT 6.9 K/UL (4.8-10.8)
--- NOTE | 2019-11-13 07:54 | General Progress Note ---
Assessment/Plan Problem List: (1) Sepsis ICD Codes: A41.9 - Sepsis, unspecified organism SNOMED: 49368362 (2) Respiratory failure (3) Anemia in chronic kidney disease ICD Codes: N18.9 - Chronic kidney disease, unspecified; D63.1 - Anemia in chronic kidney disease SNOMED: 565317501 (4) Hypothyroidism ICD Codes: E03.9 - Hypothyroidism SNOMED: 55935222 (5) Lower GI bleeding ICD Codes: K92.2 - Gastrointestinal hemorrhage, unspecified SNOMED: 90013725 (6) Fever ICD Codes: R50.9 - Fever, unspecified SNOMED: 315020350 (7) Cirrhosis ICD Codes: K74.60 - Unspecified cirrhosis of liver SNOMED: 52693732 (8) GI bleed ICD Codes: K92.2 - Gastrointestinal hemorrhage, unspecified SNOMED: 79115116 Status: stable, progressing Assessment/Plan: o2 resp care follow up cultures monitor renal fxn abx per id transfuse prn cautious hydration replace lytes as needed check cdiff Subjective ROS Limited/Unobtainable: No Constitutional: Reports: malaise, weakness HEENT: Reports: no symptoms Cardiovascular: Reports: no symptoms Respiratory: Reports: no symptoms Gastrointestinal/Abdominal: Reports: abdominal pain, diarrhea Genitourinary: Reports: no symptoms Neurologic/Psychiatric: Reports: pre-existing deficit Endocrine: Reports: no symptoms Hematologic/Lymphatic: Reports: no symptoms Allergies: Coded Allergies: ERYTHROMYCIN BASE (Unverified Allergy, Intermediate, 07/14/19) Per patient not allergic to medications or food All Systems: reviewed and negative except above Subjective on nasal cannula. no bleeding. no fevers or chills. on iv abx. tolerating feeds. having diarrhea per RN. reglan and protonix dcd by GI Objective Last 24 Hour Vital Signs Date Time Temp Pulse Resp B/P (MAP) Pulse Ox O2 Delivery O2 Flow Rate FiO2 11/13/19 06:21 133/76 11/13/19 04:00 95 11/13/19 04:00 97.5 95 20 137/68 (91) 98 11/13/19 00:00 98.2 89 20 127/66 (86) 98 11/13/19 00:00 89 11/12/19 22:30 144/67 11/12/19 22:30 93 144/67 11/12/19 21:00 Nasal Cannula 3.0 11/12/19 20:00 97.9 95 20 147/65 (92) 97 11/12/19 20:00 95 11/12/19 17:19 96 157/72 11/12/19 16:00 96 11/12/19 16:00 98.6 88 20 157/72 (100) 96 11/12/19 15:24 158/93 11/12/19 12:00 98.6 116 19 135/86 (102) 11/12/19 12:00 95 11/12/19 10:15 97.7 94 20 141/70 (93) 11/12/19 10:00 98.1 95 20 146/84 (104) 11/12/19 09:00 Nasal Cannula 3.0 11/12/19 08:39 80 155/84 11/12/19 08:38 80 155/84 11/12/19 08:08 93 Nasal Cannula 3.0 32 11/12/19 08:00 98.6 80 20 155/84 (107) 96 Intake and Output 11/12/19 11/13/19 19:00 07:00 Intake Total 1342.5 ml 485.0 ml Output Total 600 ml 200 ml Balance 742.5 ml 285.0 ml IV Total 957.5 ml 485.0 ml Tube Feeding 385 ml Output Urine Total 600 ml 200 ml # Bowel Movements 8 1 Laboratory Tests 11/13/19 05:52: White Blood Count [Pending], Red Blood Count [Pending], Hemoglobin [Pending], Hematocrit [Pending], Mean Corpuscular Volume [Pending], Mean Corpuscular Hemoglobin [Pending], Mean Corpuscular Hemoglobin Concent [Pending], Red Cell Distribution Width [Pending], Platelet Count [Pending], Mean Platelet Volume [ Pending], Neutrophils (%) (Auto) [Pending], Lymphocytes (%) (Auto) [Pending], Monocytes (%) (Auto) [Pending], Eosinophils (%) (Auto) [Pending], Basophils (%) (Auto) [Pending], Sodium Level 145, Potassium Level 3.9, Chloride Level 112H, Carbon Dioxide Level 23, Anion Gap 10, Blood Urea Nitrogen 48H, Creatinine 4.8H , Estimat Glomerular Filtration Rate , Glucose Level 88, Calcium Level 8.3L, Total Bilirubin 0.4, Aspartate Amino Transf (AST/SGOT) 29, Alanine Aminotransferase (ALT/SGPT) 16, Alkaline Phosphatase 52, Total Protein 6.7, Albumin 2.0L, Globulin 4.7, Albumin/Globulin Ratio 0.4L Height (Feet): 5 Height (Inches): 4.00 Weight (Pounds): 182 Objective General Appearance: WD/WN, alert Neck: supple Cardiovascular: regular rhythm Respiratory/Chest: chest wall non-tender, lungs clear, normal breath sounds, no respiratory distress, no accessory muscle use Abdomen: normal bowel sounds, non tender, soft, no organomegaly, no mass Edema: no edema noted Arm (L), no edema noted Arm (R), no edema noted Leg (L), no edema noted Leg (R), no edema noted Pedal (L), no edema noted Pedal (R), no edema noted 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
[2019-11-13 08:00] VITALS: BP 145/77
[2019-11-13] MEDS: Sodium Citrate 30ml GT SCH ×2 (08:53→17:29)
[2019-11-13] MEDS: Metoprolol Tartrate 50mg tab GT SCH ×2 (08:54→21:54)
[2019-11-13 12:00] VITALS: BP 150/75
--- NOTE | 2019-11-13 12:31 | Infectious Diseases Prog Note ---
Assessment/Plan Assessment/Plan antibiotics : zosyn A 1. pneumonia 2. renal failure 3. leucocytosis resolved 4. fever 5. CVA 6. hypertension P 1. continue zosyn 2. will follow up cultures Subjective ROS Limited/Unobtainable: Yes Constitutional: Reports: fever Allergies: Coded Allergies: ERYTHROMYCIN BASE (Unverified Allergy, Intermediate, 07/14/19) Per patient not allergic to medications or food Objective Vital Signs Last 24 Hour Vital Signs Date Time Temp Pulse Resp B/P (MAP) Pulse Ox O2 Delivery O2 Flow Rate FiO2 11/13/19 08:54 92 145/77 11/13/19 08:54 92 145/77 11/13/19 08:26 Nasal Cannula 3.0 11/13/19 08:00 98.4 92 20 145/77 (99) 97 11/13/19 08:00 93 11/13/19 06:21 133/76 11/13/19 04:00 95 11/13/19 04:00 97.5 95 20 137/68 (91) 98 11/13/19 00:00 98.2 89 20 127/66 (86) 98 11/13/19 00:00 89 11/12/19 22:30 144/67 11/12/19 22:30 93 144/67 11/12/19 21:00 Nasal Cannula 3.0 11/12/19 20:00 97.9 95 20 147/65 (92) 97 11/12/19 20:00 95 11/12/19 17:19 96 157/72 11/12/19 16:00 96 11/12/19 16:00 98.6 88 20 157/72 (100) 96 11/12/19 15:24 158/93 Height (Feet): 5 Height (Inches): 4.00 Weight (Pounds): 182 Respiratory/Chest: lungs clear Cardiovascular: normal rate, regular rhythm, no gallop/murmur Abdomen: soft, non tender Extremities: no edema Microbiology Date/Time Source Procedure Growth Status 11/10/19 20:18 Blood Blood Culture - Preliminary NO GROWTH AFTER 48 HOURS Resulted 11/10/19 20:15 Blood Blood Culture - Preliminary NO GROWTH AFTER 48 HOURS Resulted 11/11/19 12:30 Indwelling Cath Urine Culture - Preliminary NO GROWTH Resulted 11/11/19 02:30 Straight Cath Urine Culture - Final Mixed Urogenital Contaminants Complete Laboratory Tests Test 11/13/19 05:52 White Blood Count 6.9 K/UL (4.8-10.8) Red Blood Count 2.94 M/UL (4.20-5.40) L Hemoglobin 8.9 G/DL (12.0-16.0) L Hematocrit 26.3 % (37.0-47.0) L Mean Corpuscular Volume 90 FL (80-99) Mean Corpuscular Hemoglobin 30.4 PG (27.0-31.0) Mean Corpuscular Hemoglobin Concent 33.9 G/DL (32.0-36.0) Red Cell Distribution Width 15.8 % (11.6-14.8) H Platelet Count 204 K/UL (150-450) Mean Platelet Volume 7.5 FL (6.5-10.1) Neutrophils (%) (Auto) 80.7 % (45.0-75.0) H Lymphocytes (%) (Auto) 10.1 % (20.0-45.0) L Monocytes (%) (Auto) 7.6 % (1.0-10.0) Eosinophils (%) (Auto) 0.9 % (0.0-3.0) Basophils (%) (Auto) 0.7 % (0.0-2.0) Sodium Level 145 MMOL/L (136-145) Potassium Level 3.9 MMOL/L (3.5-5.1) Chloride Level 112 MMOL/L (98-107) H Carbon Dioxide Level 23 MMOL/L (21-32) Anion Gap 10 mmol/L (5-15) Blood Urea Nitrogen 48 mg/dL (7-18) H Creatinine 4.8 MG/DL (0.55-1.30) H Estimat Glomerular Filtration Rate mL/min (>60) Glucose Level 88 MG/DL (74-106) Calcium Level 8.3 MG/DL (8.5-10.1) L Total Bilirubin 0.4 MG/DL (0.2-1.0) Aspartate Amino Transf (AST/SGOT) 29 U/L (15-37) Alanine Aminotransferase (ALT/SGPT) 16 U/L (12-78) Alkaline Phosphatase 52 U/L (46-116) Total Protein 6.7 G/DL (6.4-8.2) Albumin 2.0 G/DL (3.4-5.0) L Globulin 4.7 g/dL Albumin/Globulin Ratio 0.4 (1.0-2.7) L Current Medications Medications (Trade) Dose Ordered Sig/Jonathan Route PRN Reason Start Time Stop Time Status Last Admin Dose Admin Acetaminophen (Tylenol) 650 mg Q4H PRN GT Pain Scale (3-5) 11/08/19 07:15 12/08/19 07:14 11/11/19 21:02 Amlodipine Besylate (Norvasc) 5 mg BID GT 11/08/19 09:00 12/08/19 08:59 11/13/19 08:54 Diphenhydramine HCl (Benadryl) 25 mg Q6H PRN ORAL Itching 11/08/19 07:15 12/08/19 07:14 Famotidine (Pepcid I.v.) 10 mg Q12HR IVP 11/13/19 09:00 12/13/19 08:59 11/13/19 08:54 Hydralazine HCl (Apresoline) 100 mg Q8HR GT 11/08/19 14:00 12/08/19 13:59 11/13/19 06:21 Levothyroxine Sodium (Synthroid) 150 mcg ACBREAKFAST GT 11/13/19 06:30 12/13/19 06:29 11/13/19 06:21 Loperamide HCl (Imodium) 2 mg Q12HR PRN ORAL Diarrhea 11/08/19 07:15 12/08/19 07:14 11/12/19 15:18 Metoprolol Tartrate (Lopressor) 50 mg Q12HR GT 11/08/19 09:00 12/08/19 08:59 11/13/19 08:54 Piperacillin Sod/ Tazobactam Sod 3.375 gm/Sodium Chloride 110 ml @ 27.5 mls/hr Q12H IVPB 11/11/19 12:00 11/18/19 11:59 11/13/19 02:30 Sodium Chloride 1,000 ml @ 125 mls/hr Q8H IV 11/11/19 11:00 12/11/19 10:59 11/12/19 15:18 Sodium Citrate (Bicitra) 30 ml BID GT 11/08/19 09:00 12/08/19 08:59 11/13/19 08:53 Jessica Reyes MD Nov 13, 2019 12:31
--- NOTE | 2019-11-13 12:56 | Nephrology Progress Note ---
Assessment/Plan Problem List: (1) Fever (2) CKD (chronic kidney disease) stage 5, GFR less than 15 ml/min (3) Cirrhosis (4) GI bleed (5) Anemia (6) Hyperuricemia (7) Acute renal failure (ARF) (8) Lung infiltrate (9) Anemia in chronic kidney disease Plan febrile, culture and antibiotics ordered, ID eval, check bladder residual,now quintana, cxr hydrate as bun/cr rising, high uric suggests dehydration Subjective Constitutional: Reports: weakness HEENT: Reports: no symptoms Genitourinary: Reports: incontinence Neurologic/Psychiatric: Reports: pre-existing deficit Subjective T102.4 11/10 Objective Objective Last 24 Hour Vital Signs Date Time Temp Pulse Resp B/P (MAP) Pulse Ox O2 Delivery O2 Flow Rate FiO2 11/13/19 12:00 98.4 90 18 150/75 (100) 97 11/13/19 08:54 92 145/77 11/13/19 08:54 92 145/77 11/13/19 08:26 Nasal Cannula 3.0 11/13/19 08:00 98.4 92 20 145/77 (99) 97 11/13/19 08:00 93 11/13/19 06:21 133/76 11/13/19 04:00 95 11/13/19 04:00 97.5 95 20 137/68 (91) 98 11/13/19 00:00 98.2 89 20 127/66 (86) 98 11/13/19 00:00 89 11/12/19 22:30 144/67 11/12/19 22:30 93 144/67 11/12/19 21:00 Nasal Cannula 3.0 11/12/19 20:00 97.9 95 20 147/65 (92) 97 11/12/19 20:00 95 11/12/19 17:19 96 157/72 11/12/19 16:00 96 11/12/19 16:00 98.6 88 20 157/72 (100) 96 11/12/19 15:24 158/93 Intake and Output 11/12/19 11/13/19 19:00 07:00 Intake Total 1342.5 ml 610.0 ml Output Total 600 ml 200 ml Balance 742.5 ml 410.0 ml IV Total 957.5 ml 610.0 ml Tube Feeding 385 ml Output Urine Total 600 ml 200 ml # Bowel Movements 8 1 Laboratory Tests 11/13/19 05:52: White Blood Count 6.9, Red Blood Count 2.94L, Hemoglobin 8.9L, Hematocrit 26.3L , Mean Corpuscular Volume 90, Mean Corpuscular Hemoglobin 30.4, Mean Corpuscular Hemoglobin Concent 33.9, Red Cell Distribution Width 15.8H, Platelet Count 204, Mean Platelet Volume 7.5, Neutrophils (%) (Auto) 80.7H, Lymphocytes (%) (Auto) 10.1L, Monocytes (%) (Auto) 7.6, Eosinophils (%) (Auto) 0.9, Basophils (%) (Auto) 0.7, Sodium Level 145, Potassium Level 3.9, Chloride Level 112H, Carbon Dioxide Level 23, Anion Gap 10, Blood Urea Nitrogen 48H, Creatinine 4.8H, Estimat Glomerular Filtration Rate , Glucose Level 88, Calcium Level 8.3L, Total Bilirubin 0.4, Aspartate Amino Transf (AST/SGOT) 29, Alanine Aminotransferase (ALT/SGPT) 16, Alkaline Phosphatase 52, Total Protein 6.7, Albumin 2.0L, Globulin 4.7, Albumin/Globulin Ratio 0.4L Height (Feet): 5 Height (Inches): 4.00 Weight (Pounds): 182 General Appearance: no apparent distress, lethargic EENT: normal ENT inspection Neck: normal alignment Cardiovascular: regular rhythm Respiratory/Chest: rhonchi - bilaterally Abdomen: soft, distended Extremities: trace edema Neurologic: motor weakness Jose Lemus MD Nov 13, 2019 12:56
[2019-11-13] MEDS ORDERED: DiphenhydrAMINE 25mg/10ml Elixir GT PRN (15:21)
[2019-11-13] MEDS ORDERED: Acetaminophen 650mg/20.3ml GT PRN (15:22)
[2019-11-13 16:00] VITALS: BP 151/90
[2019-11-13] MEDS: Acetaminophen 650mg/20.3ml GT PRN (17:31)
[2019-11-13 20:00] VITALS: BP 159/89
--- NOTE | 2019-11-13 22:33 | General Progress Note ---
Assessment/Plan Status: stable, progressing Assessment/Plan: Assessment - GIB - resolved, presumed diverticular - Anemia - Azotemia - worsening - OBS - anorexia, s/p GT placement - Cholelithiasis - cirrhosis Recommendations - continue TF - monitor BM - PPI - follow CBC / BMP - transfuse PRN Subjective Allergies: Coded Allergies: ERYTHROMYCIN BASE (Unverified Allergy, Intermediate, 07/14/19) Per patient not allergic to medications or food Subjective tolerating TF fever noted stools loose Objective Last 24 Hour Vital Signs Date Time Temp Pulse Resp B/P (MAP) Pulse Ox O2 Delivery O2 Flow Rate FiO2 11/13/19 21:54 95 139/90 11/13/19 18:01 100.0 11/13/19 17:30 94 151/90 11/13/19 16:00 100.0 94 22 151/90 (110) 100 11/13/19 13:52 150/75 11/13/19 12:00 88 11/13/19 12:00 98.4 90 18 150/75 (100) 97 11/13/19 08:54 92 145/77 11/13/19 08:54 92 145/77 11/13/19 08:26 Nasal Cannula 3.0 11/13/19 08:00 98.4 92 20 145/77 (99) 97 11/13/19 08:00 93 11/13/19 06:21 133/76 11/13/19 04:00 95 11/13/19 04:00 97.5 95 20 137/68 (91) 98 11/13/19 00:00 98.2 89 20 127/66 (86) 98 11/13/19 00:00 89 Intake and Output 11/12/19 11/13/19 19:00 07:00 Intake Total 1342.5 ml 645.0 ml Output Total 600 ml 200 ml Balance 742.5 ml 445.0 ml IV Total 957.5 ml 610.0 ml Tube Feeding 385 ml 35 ml Output Urine Total 600 ml 200 ml # Bowel Movements 8 1 Laboratory Tests 11/13/19 05:52: White Blood Count 6.9, Red Blood Count 2.94L, Hemoglobin 8.9L, Hematocrit 26.3L , Mean Corpuscular Volume 90, Mean Corpuscular Hemoglobin 30.4, Mean Corpuscular Hemoglobin Concent 33.9, Red Cell Distribution Width 15.8H, Platelet Count 204, Mean Platelet Volume 7.5, Neutrophils (%) (Auto) 80.7H, Lymphocytes (%) (Auto) 10.1L, Monocytes (%) (Auto) 7.6, Eosinophils (%) (Auto) 0.9, Basophils (%) (Auto) 0.7, Sodium Level 145, Potassium Level 3.9, Chloride Level 112H, Carbon Dioxide Level 23, Anion Gap 10, Blood Urea Nitrogen 48H, Creatinine 4.8H, Estimat Glomerular Filtration Rate , Glucose Level 88, Calcium Level 8.3L, Total Bilirubin 0.4, Aspartate Amino Transf (AST/SGOT) 29, Alanine Aminotransferase (ALT/SGPT) 16, Alkaline Phosphatase 52, Total Protein 6.7, Albumin 2.0L, Globulin 4.7, Albumin/Globulin Ratio 0.4L Height (Feet): 5 Height (Inches): 4.00 Weight (Pounds): 182 Objective WDWN AA woman NCAT supple Chest coarase magaly RRR Abd soft (+) GT no edema Mina Rao MD Nov 13, 2019 22:33
[2019-11-14] VITALS: BP 135/65
[2019-11-14 04:00] VITALS: BP 155/77
[2019-11-14] MEDS: HydrALAZINE 50mg tab GT SCH ×3 (05:45→22:27)
--- NOTE | 2019-11-14 07:40 | General Progress Note ---
Assessment/Plan Problem List: (1) Sepsis ICD Codes: A41.9 - Sepsis, unspecified organism SNOMED: 64653066 (2) Respiratory failure (3) Anemia in chronic kidney disease ICD Codes: N18.9 - Chronic kidney disease, unspecified; D63.1 - Anemia in chronic kidney disease SNOMED: 542132669 (4) Hypothyroidism ICD Codes: E03.9 - Hypothyroidism SNOMED: 85132804 (5) Lower GI bleeding ICD Codes: K92.2 - Gastrointestinal hemorrhage, unspecified SNOMED: 24433804 (6) Fever ICD Codes: R50.9 - Fever, unspecified SNOMED: 995515977 (7) Cirrhosis ICD Codes: K74.60 - Unspecified cirrhosis of liver SNOMED: 78502091 (8) GI bleed ICD Codes: K92.2 - Gastrointestinal hemorrhage, unspecified SNOMED: 17212190 Status: stable, progressing Assessment/Plan: o2 resp care follow up cultures monitor renal fxn abx per id transfuse prn cautious hydration replace lytes as needed check cdiff monitor cxr for improvements Subjective ROS Limited/Unobtainable: No Constitutional: Reports: malaise, weakness HEENT: Reports: no symptoms Cardiovascular: Reports: no symptoms Respiratory: Reports: cough, shortness of breath Gastrointestinal/Abdominal: Reports: difficulty swallowing Genitourinary: Reports: no symptoms Neurologic/Psychiatric: Reports: pre-existing deficit Endocrine: Reports: no symptoms Hematologic/Lymphatic: Reports: anemia Allergies: Coded Allergies: ERYTHROMYCIN BASE (Unverified Allergy, Intermediate, 07/14/19) Per patient not allergic to medications or food All Systems: reviewed and negative except above Subjective on nasal cannula. no bleeding. no fevers or chills. on iv abx. tolerating feeds. cxr with infiltrates Objective Last 24 Hour Vital Signs Date Time Temp Pulse Resp B/P (MAP) Pulse Ox O2 Delivery O2 Flow Rate FiO2 11/14/19 05:45 144/86 11/14/19 04:00 99.4 102 20 155/77 (103) 96 11/14/19 00:00 97.5 95 19 135/65 (88) 96 11/13/19 23:22 148/79 11/13/19 21:54 95 139/90 11/13/19 21:00 Nasal Cannula 3.0 11/13/19 20:00 98.3 91 18 159/89 (112) 96 11/13/19 18:01 100.0 11/13/19 17:30 94 151/90 11/13/19 16:00 100.0 94 22 151/90 (110) 100 11/13/19 13:52 150/75 11/13/19 12:00 88 11/13/19 12:00 98.4 90 18 150/75 (100) 97 11/13/19 08:54 92 145/77 11/13/19 08:54 92 145/77 11/13/19 08:26 Nasal Cannula 3.0 11/13/19 08:00 98.4 92 20 145/77 (99) 97 11/13/19 08:00 93 Intake and Output 11/13/19 11/14/19 19:00 07:00 Intake Total 2205.0 ml 1685.0 ml Output Total 600 ml Balance 2205.0 ml 1085.0 ml Intake Free Water 300 ml 100 ml IV Total 1485.0 ml 1235.0 ml Tube Feeding 420 ml 350 ml Output Urine Total 600 ml # Bowel Movements 11 3 Height (Feet): 5 Height (Inches): 4.00 Weight (Pounds): 182 Objective General Appearance: WD/WN, alert Neck: supple Cardiovascular: regular rhythm Respiratory/Chest: chest wall non-tender, lungs clear, normal breath sounds, no respiratory distress, no accessory muscle use Abdomen: normal bowel sounds, non tender, soft, no organomegaly, no mass Edema: no edema noted Arm (L), no edema noted Arm (R), no edema noted Leg (L), no edema noted Leg (R), no edema noted Pedal (L), no edema noted Pedal (R), no edema noted Generalized 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
[2019-11-14 07:50] LABS: BASOPHILS % (AUTO) 0.5 % (0.0-2.0); EOSINOPHILS % (AUTO) 0.8 % (0.0-3.0); HEMOGLOBIN 8.6 G/DL (12.0-16.0); LYMPHOCYTES % (AUTO) 14.4 % (20.0-45.0); MEAN CORPUSCULAR VOLUME 90 FL (80-99); NEUTROPHILS % (AUTO) 76.3 % (45.0-75.0); PLATELET COUNT 179 K/UL (150-450); RED BLOOD COUNT 2.88 M/UL (4.20-5.40); RED CELL DISTRIBUTION WIDTH 16.1 % (11.6-14.8); WHITE BLOOD COUNT 6.2 K/UL (4.8-10.8)
[2019-11-14 08:00] VITALS: BP 168/83
[2019-11-14 08:08] LABS: ALANINE AMINOTRANSFERASE 16 U/L (12-78); ALBUMIN/GLOBULIN RATIO 0.4 (1.0-2.7); ALKALINE PHOSPHATASE 57 U/L (46-116); ANION GAP 11 mmol/L (5-15); ASPARTATE AMINO TRANSFERASE 33 U/L (15-37); BILIRUBIN,TOTAL 0.4 MG/DL (0.2-1.0); BLOOD UREA NITROGEN 46 mg/dL (7-18); CALCIUM 8.1 MG/DL (8.5-10.1); CARBON DIOXIDE 23 MMOL/L (21-32); CHLORIDE 110 MMOL/L (98-107); CREATININE 4.3 MG/DL (0.55-1.30); POTASSIUM 3.4 MMOL/L (3.5-5.1); SODIUM 144 MMOL/L (136-145)
[2019-11-14] MEDS: Metoprolol Tartrate 50mg tab GT SCH ×2 (08:56→21:39)
[2019-11-14] MEDS: Sodium Citrate 30ml GT SCH ×2 (08:57→17:25)
[2019-11-14 12:00] VITALS: BP 167/88
[2019-11-14] MEDS: Piperacillin/Tazobactam 3.375 GM in NS 110 ML IVPB SCH ×2 (14:03→23:32)
--- NOTE | 2019-11-14 15:02 | Nephrology Progress Note ---
Assessment/Plan Problem List: (1) Fever (2) CKD (chronic kidney disease) stage 5, GFR less than 15 ml/min (3) Cirrhosis (4) GI bleed (5) Anemia (6) Hyperuricemia (7) Acute renal failure (ARF) (8) Lung infiltrate (9) Anemia in chronic kidney disease Plan febrile, culture and antibiotics ordered, ID eval, check bladder residual,now quintana, cxr hydrate as bun/cr rising, high uric suggests dehydration Subjective Constitutional: Reports: weakness HEENT: Reports: no symptoms Genitourinary: Reports: incontinence Neurologic/Psychiatric: Reports: pre-existing deficit Subjective mod diarrhea Objective Objective Last 24 Hour Vital Signs Date Time Temp Pulse Resp B/P (MAP) Pulse Ox O2 Delivery O2 Flow Rate FiO2 11/14/19 14:20 167/88 11/14/19 12:00 99.3 96 19 167/88 (114) 97 11/14/19 09:00 Nasal Cannula 3.0 11/14/19 08:56 94 168/83 11/14/19 08:54 94 168/83 11/14/19 08:23 92 Nasal Cannula 3.0 32 11/14/19 08:00 98.0 94 19 168/83 (111) 98 11/14/19 05:45 144/86 11/14/19 04:00 99.4 102 20 155/77 (103) 96 11/14/19 00:00 97.5 95 19 135/65 (88) 96 11/13/19 23:22 148/79 11/13/19 21:54 95 139/90 11/13/19 21:00 Nasal Cannula 3.0 11/13/19 20:00 98.3 91 18 159/89 (112) 96 11/13/19 18:01 100.0 11/13/19 17:30 94 151/90 11/13/19 16:00 100.0 94 22 151/90 (110) 100 Intake and Output 11/13/19 11/14/19 19:00 07:00 Intake Total 2205.0 ml 1810.0 ml Output Total 600 ml Balance 2205.0 ml 1210.0 ml Intake Free Water 300 ml 100 ml IV Total 1485.0 ml 1360.0 ml Tube Feeding 420 ml 350 ml Output Urine Total 600 ml # Bowel Movements 11 3 Laboratory Tests 11/14/19 06:50: White Blood Count 6.2, Red Blood Count 2.88L, Hemoglobin 8.6L, Hematocrit 26.0L , Mean Corpuscular Volume 90, Mean Corpuscular Hemoglobin 29.9, Mean Corpuscular Hemoglobin Concent 33.1, Red Cell Distribution Width 16.1H, Platelet Count 179, Mean Platelet Volume 7.8, Neutrophils (%) (Auto) 76.3H, Lymphocytes (%) (Auto) 14.4L, Monocytes (%) (Auto) 8.0, Eosinophils (%) (Auto) 0.8, Basophils (%) (Auto) 0.5, Sodium Level 144, Potassium Level 3.4L, Chloride Level 110H, Carbon Dioxide Level 23, Anion Gap 11, Blood Urea Nitrogen 46H, Creatinine 4.3H, Estimat Glomerular Filtration Rate , Glucose Level 94, Uric Acid 13.1H, Calcium Level 8.1L, Total Bilirubin 0.4, Aspartate Amino Transf (AST /SGOT) 33, Alanine Aminotransferase (ALT/SGPT) 16, Alkaline Phosphatase 57, Total Protein 6.8, Albumin 2.0L, Globulin 4.8, Albumin/Globulin Ratio 0.4L Height (Feet): 5 Height (Inches): 4.00 Weight (Pounds): 182 General Appearance: alert EENT: normal ENT inspection Neck: normal alignment Cardiovascular: regular rhythm Respiratory/Chest: rhonchi - bilaterally Abdomen: non tender, distended Extremities: trace edema Neurologic: motor weakness Jose Lemus MD Nov 14, 2019 15:02
--- NOTE | 2019-11-14 15:13 | Diagnostic Imaging Report ---
Indication: Dyspnea Comparison: None A single view chest radiograph was obtained. Findings: Mild pulmonary vascular congestion demonstrated. Similar findings noted previously. There is also hazy opacity in the left perihilar region. Superimposed pneumonia not excluded. The heart is enlarged. IMPRESSION: Mild pulmonary vascular congestion. Superimposed pneumonia in the left perihilar region is not excluded. No significant change
[2019-11-14 16:00] VITALS: BP 171/87
[2019-11-14 20:00] VITALS: BP 122/78
--- NOTE | 2019-11-14 21:38 | General Progress Note ---
Assessment/Plan Status: stable, progressing Assessment/Plan: Assessment - GIB - resolved, presumed diverticular - Anemia - Azotemia - worsening - OBS - anorexia, s/p GT placement - Cholelithiasis - cirrhosis Recommendations - continue TF - monitor BM - PPI - follow CBC / BMP - transfuse PRN - I will be away until Tu. Coverage available. Call if questions. Subjective Allergies: Coded Allergies: ERYTHROMYCIN BASE (Unverified Allergy, Intermediate, 07/14/19) Per patient not allergic to medications or food Subjective tolerating TF fever noted stools loose Objective Last 24 Hour Vital Signs Date Time Temp Pulse Resp B/P (MAP) Pulse Ox O2 Delivery O2 Flow Rate FiO2 11/14/19 19:36 93 Nasal Cannula 3.0 32 11/14/19 17:31 171/87 11/14/19 17:25 103 171/87 11/14/19 16:00 98.6 103 18 171/87 (115) 98 11/14/19 14:20 167/88 11/14/19 12:00 99.3 96 19 167/88 (114) 97 11/14/19 09:00 Nasal Cannula 3.0 11/14/19 08:56 94 168/83 11/14/19 08:54 94 168/83 11/14/19 08:23 92 Nasal Cannula 3.0 32 11/14/19 08:00 98.0 94 19 168/83 (111) 98 11/14/19 05:45 144/86 11/14/19 04:00 99.4 102 20 155/77 (103) 96 11/14/19 00:00 97.5 95 19 135/65 (88) 96 11/13/19 23:22 148/79 11/13/19 21:54 95 139/90 Intake and Output 11/13/19 11/14/19 19:00 07:00 Intake Total 2205.0 ml 1845.0 ml Output Total 600 ml Balance 2205.0 ml 1245.0 ml Intake Free Water 300 ml 100 ml IV Total 1485.0 ml 1360.0 ml Tube Feeding 420 ml 385 ml Output Urine Total 600 ml # Bowel Movements 11 3 Laboratory Tests 11/14/19 06:50: White Blood Count 6.2, Red Blood Count 2.88L, Hemoglobin 8.6L, Hematocrit 26.0L , Mean Corpuscular Volume 90, Mean Corpuscular Hemoglobin 29.9, Mean Corpuscular Hemoglobin Concent 33.1, Red Cell Distribution Width 16.1H, Platelet Count 179, Mean Platelet Volume 7.8, Neutrophils (%) (Auto) 76.3H, Lymphocytes (%) (Auto) 14.4L, Monocytes (%) (Auto) 8.0, Eosinophils (%) (Auto) 0.8, Basophils (%) (Auto) 0.5, Sodium Level 144, Potassium Level 3.4L, Chloride Level 110H, Carbon Dioxide Level 23, Anion Gap 11, Blood Urea Nitrogen 46H, Creatinine 4.3H, Estimat Glomerular Filtration Rate , Glucose Level 94, Uric Acid 13.1H, Calcium Level 8.1L, Total Bilirubin 0.4, Aspartate Amino Transf (AST /SGOT) 33, Alanine Aminotransferase (ALT/SGPT) 16, Alkaline Phosphatase 57, Total Protein 6.8, Albumin 2.0L, Globulin 4.8, Albumin/Globulin Ratio 0.4L Height (Feet): 5 Height (Inches): 4.00 Weight (Pounds): 182 Objective WDWN AA woman NCAT supple Chest coarase magaly RRR Abd soft (+) GT no edema Mina Rao MD Nov 14, 2019 21:38
[2019-11-15] VITALS (7 sets, daily range): BP systolic 140–170; BP diastolic 75–94
[2019-11-15] MEDS: HydrALAZINE 50mg tab GT SCH ×3 (05:42→21:06)
[2019-11-15 06:04] LABS: HEMOGLOBIN 7.8 G/DL (12.0-16.0); MEAN CORPUSCULAR VOLUME 90 FL (80-99); PLATELET COUNT 152 K/UL (150-450); RED BLOOD COUNT 2.68 M/UL (4.20-5.40); RED CELL DISTRIBUTION WIDTH 16.2 % (11.6-14.8); WHITE BLOOD COUNT 5.7 K/UL (4.8-10.8)
[2019-11-15 06:25] LABS: ALANINE AMINOTRANSFERASE 16 U/L (12-78); ALBUMIN 1.9 G/DL (3.4-5.0); ALBUMIN/GLOBULIN RATIO 0.4 (1.0-2.7); ALKALINE PHOSPHATASE 47 U/L (46-116); ANION GAP 8 mmol/L (5-15); ASPARTATE AMINO TRANSFERASE 30 U/L (15-37); BILIRUBIN,TOTAL 0.4 MG/DL (0.2-1.0); BLOOD UREA NITROGEN 45 mg/dL (7-18); CALCIUM 8.2 MG/DL (8.5-10.1); CARBON DIOXIDE 26 MMOL/L (21-32); CHLORIDE 110 MMOL/L (98-107); CREATININE 3.9 MG/DL (0.55-1.30); POTASSIUM 3.2 MMOL/L (3.5-5.1); SODIUM 144 MMOL/L (136-145)
--- NOTE | 2019-11-15 07:39 | General Progress Note ---
Assessment/Plan Status: stable, progressing Assessment/Plan: Assessment/Plan Status: stable, progressing Assessment/Plan: Assessment - GIB - resolved, presumed diverticular - Anemia - Azotemia - worsening - OBS - anorexia, s/p GT placement - Cholelithiasis - cirrhosis Recommendations - continue TF - monitor BM - PPI - follow CBC / BMP - transfuse PRN Subjective Allergies: Coded Allergies: ERYTHROMYCIN BASE (Unverified Allergy, Intermediate, 07/14/19) Per patient not allergic to medications or food Objective Last 24 Hour Vital Signs Date Time Temp Pulse Resp B/P (MAP) Pulse Ox O2 Delivery O2 Flow Rate FiO2 11/15/19 05:42 148/86 11/15/19 04:00 98.9 20 148/86 (106) 98 11/15/19 00:20 98.3 96 18 140/82 (101) 96 11/14/19 22:27 168/83 11/14/19 21:39 94 168/83 11/14/19 21:00 Nasal Cannula 3.0 11/14/19 20:00 98.8 100 20 122/78 (93) 97 11/14/19 19:36 93 Nasal Cannula 3.0 32 11/14/19 17:31 171/87 11/14/19 17:25 103 171/87 11/14/19 16:00 98.6 103 18 171/87 (115) 98 11/14/19 14:20 167/88 11/14/19 12:00 99.3 96 19 167/88 (114) 97 11/14/19 09:00 Nasal Cannula 3.0 11/14/19 08:56 94 168/83 11/14/19 08:54 94 168/83 11/14/19 08:23 92 Nasal Cannula 3.0 32 11/14/19 08:00 98.0 94 19 168/83 (111) 98 Intake and Output 11/14/19 11/15/19 19:00 07:00 Intake Total 1655.0 ml 220 ml Output Total 900 ml Balance 1655.0 ml -680 ml Intake Free Water 160 ml 120 ml IV Total 1110.0 ml 30 ml Tube Feeding 385 ml 70 ml Output Urine Total 900 ml # Bowel Movements 1 8 Laboratory Tests 11/15/19 05:45: White Blood Count 5.7, Red Blood Count 2.68L, Hemoglobin 7.8L, Hematocrit 24.0L , Mean Corpuscular Volume 90, Mean Corpuscular Hemoglobin 29.2, Mean Corpuscular Hemoglobin Concent 32.6, Red Cell Distribution Width 16.2H, Platelet Count 152, Mean Platelet Volume 6.8, Neutrophils (%) (Auto) , Lymphocytes (%) (Auto) , Monocytes (%) (Auto) , Eosinophils (%) (Auto) , Basophils (%) (Auto) , Sodium Level 144, Potassium Level 3.2L, Chloride Level 110H, Carbon Dioxide Level 26, Anion Gap 8, Blood Urea Nitrogen 45H, Creatinine 3.9H, Estimat Glomerular Filtration Rate , Glucose Level 84, Calcium Level 8.2L , Total Bilirubin 0.4, Aspartate Amino Transf (AST/SGOT) 30, Alanine Aminotransferase (ALT/SGPT) 16, Alkaline Phosphatase 47, Total Protein 6.4, Albumin 1.9L, Globulin 4.5, Albumin/Globulin Ratio 0.4L Height (Feet): 5 Height (Inches): 4.00 Weight (Pounds): 182 General Appearance: alert EENT: PERRL/EOMI, normal ENT inspection Neck: supple Cardiovascular: normal rate Respiratory/Chest: decreased breath sounds Abdomen: normal bowel sounds, non tender, soft David Bosch MD Nov 15, 2019 07:39
--- NOTE | 2019-11-15 09:19 | General Progress Note ---
Assessment/Plan Problem List: (1) Sepsis ICD Codes: A41.9 - Sepsis, unspecified organism SNOMED: 21030486 (2) Respiratory failure (3) Anemia in chronic kidney disease ICD Codes: N18.9 - Chronic kidney disease, unspecified; D63.1 - Anemia in chronic kidney disease SNOMED: 747618114 (4) Hypothyroidism ICD Codes: E03.9 - Hypothyroidism SNOMED: 93505043 (5) Lower GI bleeding ICD Codes: K92.2 - Gastrointestinal hemorrhage, unspecified SNOMED: 40587776 (6) Fever ICD Codes: R50.9 - Fever, unspecified SNOMED: 009104890 (7) Cirrhosis ICD Codes: K74.60 - Unspecified cirrhosis of liver SNOMED: 13713351 (8) GI bleed ICD Codes: K92.2 - Gastrointestinal hemorrhage, unspecified SNOMED: 34194059 Status: stable, progressing Assessment/Plan: o2 resp care follow up cultures monitor renal fxn abx per id transfuse prn cautious hydration replace lytes as needed check cdiff monitor cxr for improvements Subjective ROS Limited/Unobtainable: No Constitutional: Reports: malaise, weakness HEENT: Reports: no symptoms Cardiovascular: Reports: no symptoms Respiratory: Reports: no symptoms Gastrointestinal/Abdominal: Reports: difficulty swallowing, poor appetite Genitourinary: Reports: no symptoms Neurologic/Psychiatric: Reports: pre-existing deficit Endocrine: Reports: no symptoms Hematologic/Lymphatic: Reports: anemia Allergies: Coded Allergies: ERYTHROMYCIN BASE (Unverified Allergy, Intermediate, 07/14/19) Per patient not allergic to medications or food All Systems: reviewed and negative except above Subjective on nasal cannula. no bleeding. no fevers or chills. on iv abx. tolerating feeds. cxr with infiltrates. mild diarrhea. labs reviewed Objective Last 24 Hour Vital Signs Date Time Temp Pulse Resp B/P (MAP) Pulse Ox O2 Delivery O2 Flow Rate FiO2 11/15/19 05:42 148/86 11/15/19 04:00 98.9 20 148/86 (106) 98 11/15/19 00:20 98.3 96 18 140/82 (101) 96 11/14/19 22:27 168/83 11/14/19 21:39 94 168/83 11/14/19 21:00 Nasal Cannula 3.0 11/14/19 20:00 98.8 100 20 122/78 (93) 97 11/14/19 19:36 93 Nasal Cannula 3.0 32 11/14/19 17:31 171/87 11/14/19 17:25 103 171/87 11/14/19 16:00 98.6 103 18 171/87 (115) 98 11/14/19 14:20 167/88 11/14/19 12:00 99.3 96 19 167/88 (114) 97 Intake and Output 11/14/19 11/15/19 19:00 07:00 Intake Total 1655.0 ml 220 ml Output Total 900 ml Balance 1655.0 ml -680 ml Intake Free Water 160 ml 120 ml IV Total 1110.0 ml 30 ml Tube Feeding 385 ml 70 ml Output Urine Total 900 ml # Bowel Movements 1 8 Laboratory Tests 11/15/19 05:45: White Blood Count 5.7, Red Blood Count 2.68L, Hemoglobin 7.8L, Hematocrit 24.0L , Mean Corpuscular Volume 90, Mean Corpuscular Hemoglobin 29.2, Mean Corpuscular Hemoglobin Concent 32.6, Red Cell Distribution Width 16.2H, Platelet Count 152, Mean Platelet Volume 6.8, Neutrophils (%) (Auto) , Lymphocytes (%) (Auto) , Monocytes (%) (Auto) , Eosinophils (%) (Auto) , Basophils (%) (Auto) , Sodium Level 144, Potassium Level 3.2L, Chloride Level 110H, Carbon Dioxide Level 26, Anion Gap 8, Blood Urea Nitrogen 45H, Creatinine 3.9H, Estimat Glomerular Filtration Rate , Glucose Level 84, Calcium Level 8.2L , Total Bilirubin 0.4, Aspartate Amino Transf (AST/SGOT) 30, Alanine Aminotransferase (ALT/SGPT) 16, Alkaline Phosphatase 47, Total Protein 6.4, Albumin 1.9L, Globulin 4.5, Albumin/Globulin Ratio 0.4L Height (Feet): 5 Height (Inches): 4.00 Weight (Pounds): 182 Objective General Appearance: WD/WN, alert Neck: supple Cardiovascular: regular rhythm Respiratory/Chest: chest wall non-tender, lungs clear, normal breath sounds, no respiratory distress, no accessory muscle use Abdomen: normal bowel sounds, non tender, soft, no organomegaly, no mass Edema: no edema noted Arm (L), no edema noted Arm (R), no edema noted Leg (L), no edema noted Leg (R), no edema noted Pedal (L), no edema noted Pedal (R), no edema noted 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
[2019-11-15] MEDS: Sodium Citrate 30ml GT SCH ×2 (09:25→17:19)
[2019-11-15] MEDS: Metoprolol Tartrate 50mg tab GT SCH ×2 (09:25→21:06)
--- NOTE | 2019-11-15 10:53 | Infectious Diseases Prog Note ---
Assessment/Plan Assessment/Plan antibiotics : zosyn A 1. pneumonia 2. renal failure improving 3. leucocytosis resolved 4. fever improving 5. CVA 6. hypertension P 1. continue zosyn 2. will follow up cultures Subjective ROS Limited/Unobtainable: Yes Allergies: Coded Allergies: ERYTHROMYCIN BASE (Unverified Allergy, Intermediate, 07/14/19) Per patient not allergic to medications or food Objective Vital Signs Last 24 Hour Vital Signs Date Time Temp Pulse Resp B/P (MAP) Pulse Ox O2 Delivery O2 Flow Rate FiO2 11/15/19 09:25 103 170/94 11/15/19 09:25 103 170/94 11/15/19 09:00 Nasal Cannula 3.0 11/15/19 08:00 98.6 103 22 170/94 (119) 99 11/15/19 05:42 148/86 11/15/19 04:00 98.9 20 148/86 (106) 98 11/15/19 00:20 98.3 96 18 140/82 (101) 96 11/14/19 22:27 168/83 11/14/19 21:39 94 168/83 11/14/19 21:00 Nasal Cannula 3.0 11/14/19 20:00 98.8 100 20 122/78 (93) 97 11/14/19 19:36 93 Nasal Cannula 3.0 32 11/14/19 17:31 171/87 11/14/19 17:25 103 171/87 11/14/19 16:00 98.6 103 18 171/87 (115) 98 11/14/19 14:20 167/88 11/14/19 12:00 99.3 96 19 167/88 (114) 97 Height (Feet): 5 Height (Inches): 4.00 Weight (Pounds): 182 Respiratory/Chest: rhonchi - bilaterally Cardiovascular: normal rate, regular rhythm, no gallop/murmur Abdomen: soft, non tender Extremities: no edema Microbiology Date/Time Source Procedure Growth Status 11/13/19 14:40 Stool Clostridium difficile Toxin Assay - Final Complete Laboratory Tests Test 11/15/19 05:45 White Blood Count 5.7 K/UL (4.8-10.8) Red Blood Count 2.68 M/UL (4.20-5.40) L Hemoglobin 7.8 G/DL (12.0-16.0) L Hematocrit 24.0 % (37.0-47.0) L Mean Corpuscular Volume 90 FL (80-99) Mean Corpuscular Hemoglobin 29.2 PG (27.0-31.0) Mean Corpuscular Hemoglobin Concent 32.6 G/DL (32.0-36.0) Red Cell Distribution Width 16.2 % (11.6-14.8) H Platelet Count 152 K/UL (150-450) Mean Platelet Volume 6.8 FL (6.5-10.1) Neutrophils (%) (Auto) % (45.0-75.0) Lymphocytes (%) (Auto) % (20.0-45.0) Monocytes (%) (Auto) % (1.0-10.0) Eosinophils (%) (Auto) % (0.0-3.0) Basophils (%) (Auto) % (0.0-2.0) Sodium Level 144 MMOL/L (136-145) Potassium Level 3.2 MMOL/L (3.5-5.1) L Chloride Level 110 MMOL/L (98-107) H Carbon Dioxide Level 26 MMOL/L (21-32) Anion Gap 8 mmol/L (5-15) Blood Urea Nitrogen 45 mg/dL (7-18) H Creatinine 3.9 MG/DL (0.55-1.30) H Estimat Glomerular Filtration Rate mL/min (>60) Glucose Level 84 MG/DL (74-106) Calcium Level 8.2 MG/DL (8.5-10.1) L Total Bilirubin 0.4 MG/DL (0.2-1.0) Aspartate Amino Transf (AST/SGOT) 30 U/L (15-37) Alanine Aminotransferase (ALT/SGPT) 16 U/L (12-78) Alkaline Phosphatase 47 U/L (46-116) Total Protein 6.4 G/DL (6.4-8.2) Albumin 1.9 G/DL (3.4-5.0) L Globulin 4.5 g/dL Albumin/Globulin Ratio 0.4 (1.0-2.7) L Current Medications Medications (Trade) Dose Ordered Sig/Jonathan Route PRN Reason Start Time Stop Time Status Last Admin Dose Admin Acetaminophen (Tylenol) 650 mg Q4H PRN GT Pain Scale (3-5) and fever 11/13/19 17:29 12/13/19 17:28 11/13/19 17:31 Amlodipine Besylate (Norvasc) 5 mg BID GT 11/13/19 18:00 12/08/19 08:59 11/15/19 09:25 Clonidine HCl (Catapres Tab) 0.1 mg Q4H PRN GT SBP > 160mmHg 11/15/19 08:15 12/14/19 14:14 Diphenhydramine HCl (Benadryl) 25 mg Q6H PRN GT Itching 11/13/19 15:21 12/13/19 15:20 Famotidine (Pepcid I.v.) 10 mg Q12HR IVP 11/13/19 21:00 12/13/19 08:59 11/15/19 09:25 Hydralazine HCl (Apresoline) 100 mg Q8HR GT 11/13/19 22:00 12/08/19 13:59 11/15/19 05:42 Levothyroxine Sodium (Synthroid) 150 mcg ACBREAKFAST GT 11/14/19 06:30 12/13/19 06:29 11/15/19 05:42 Loperamide HCl (Imodium) 2 mg Q12H PRN GT Diarrhea 11/13/19 15:21 12/13/19 15:20 11/13/19 23:35 Metoprolol Tartrate (Lopressor) 50 mg Q12HR GT 11/13/19 21:00 12/08/19 08:59 11/15/19 09:25 Piperacillin Sod/ Tazobactam Sod 3.375 gm/Sodium Chloride 110 ml @ 27.5 mls/hr Q12H IVPB 11/14/19 00:00 11/18/19 11:59 11/14/19 23:32 Sodium Chloride 1,000 ml @ 125 mls/hr Q8H IV 11/13/19 15:30 12/11/19 10:59 11/15/19 06:46 Sodium Citrate (Bicitra) 30 ml BID GT 11/13/19 18:00 12/08/19 08:59 11/15/19 09:25 Jessica Reyes MD Nov 15, 2019 10:53
[2019-11-15] MEDS: Piperacillin/Tazobactam 3.375 GM in NS 110 ML IVPB SCH (12:40)
--- NOTE | 2019-11-15 13:54 | Nephrology Progress Note ---
Assessment/Plan Problem List: (1) Fever (2) CKD (chronic kidney disease) stage 5, GFR less than 15 ml/min (3) Cirrhosis (4) GI bleed (5) Anemia (6) Hyperuricemia (7) Acute renal failure (ARF) (8) Lung infiltrate (9) Anemia in chronic kidney disease Plan febrile, culture and antibiotics ordered, ID eval, check bladder residual,now quintana, cxr reviewed as bun/cr rising, high uric suggests dehydration, but now with fluid overload, lasix ordered Subjective Constitutional: Reports: weakness HEENT: Reports: no symptoms Neurologic/Psychiatric: Reports: pre-existing deficit Subjective mod diarrhea Objective Objective Last 24 Hour Vital Signs Date Time Temp Pulse Resp B/P (MAP) Pulse Ox O2 Delivery O2 Flow Rate FiO2 11/15/19 13:08 165/83 11/15/19 12:00 98.3 88 23 165/83 (110) 97 11/15/19 10:56 97 Nasal Cannula 3.0 32 11/15/19 09:25 103 170/94 11/15/19 09:25 103 170/94 11/15/19 09:00 Nasal Cannula 3.0 11/15/19 08:00 98.6 103 22 170/94 (119) 99 11/15/19 05:42 148/86 11/15/19 04:00 98.9 20 148/86 (106) 98 11/15/19 00:20 98.3 96 18 140/82 (101) 96 11/14/19 22:27 168/83 11/14/19 21:39 94 168/83 11/14/19 21:00 Nasal Cannula 3.0 11/14/19 20:00 98.8 100 20 122/78 (93) 97 11/14/19 19:36 93 Nasal Cannula 3.0 32 11/14/19 17:31 171/87 11/14/19 17:25 103 171/87 11/14/19 16:00 98.6 103 18 171/87 (115) 98 11/14/19 14:20 167/88 Intake and Output 11/14/19 11/15/19 19:00 07:00 Intake Total 1655.0 ml 255 ml Output Total 900 ml Balance 1655.0 ml -645 ml Intake Free Water 160 ml 120 ml IV Total 1110.0 ml 30 ml Tube Feeding 385 ml 105 ml Output Urine Total 900 ml # Bowel Movements 1 8 Laboratory Tests 11/15/19 05:45: White Blood Count 5.7, Red Blood Count 2.68L, Hemoglobin 7.8L, Hematocrit 24.0L , Mean Corpuscular Volume 90, Mean Corpuscular Hemoglobin 29.2, Mean Corpuscular Hemoglobin Concent 32.6, Red Cell Distribution Width 16.2H, Platelet Count 152, Mean Platelet Volume 6.8, Neutrophils (%) (Auto) , Lymphocytes (%) (Auto) , Monocytes (%) (Auto) , Eosinophils (%) (Auto) , Basophils (%) (Auto) , Sodium Level 144, Potassium Level 3.2L, Chloride Level 110H, Carbon Dioxide Level 26, Anion Gap 8, Blood Urea Nitrogen 45H, Creatinine 3.9H, Estimat Glomerular Filtration Rate , Glucose Level 84, Calcium Level 8.2L , Total Bilirubin 0.4, Aspartate Amino Transf (AST/SGOT) 30, Alanine Aminotransferase (ALT/SGPT) 16, Alkaline Phosphatase 47, Total Protein 6.4, Albumin 1.9L, Globulin 4.5, Albumin/Globulin Ratio 0.4L Height (Feet): 5 Height (Inches): 4.00 Weight (Pounds): 182 General Appearance: alert EENT: normal ENT inspection Neck: normal alignment Cardiovascular: regular rhythm Respiratory/Chest: rhonchi - bilaterally Abdomen: non tender, soft Extremities: moderate edema Neurologic: motor weakness Jose Lemus MD Nov 15, 2019 13:54
[2019-11-16] VITALS (7 sets, daily range): BP systolic 134–162; BP diastolic 73–94
[2019-11-16] MEDS: Piperacillin/Tazobactam 3.375 GM in NS 110 ML IVPB SCH ×2 (00:10→12:17)
[2019-11-16] MEDS: HydrALAZINE 50mg tab GT SCH ×3 (05:44→20:57)
[2019-11-16 06:46] LABS: HEMATOCRIT 21.7 % (37.0-47.0); HEMOGLOBIN 7.3 G/DL (12.0-16.0); MEAN CORPUSCULAR VOLUME 91 FL (80-99); PLATELET COUNT 137 K/UL (150-450); RED BLOOD COUNT 2.39 M/UL (4.20-5.40); RED CELL DISTRIBUTION WIDTH 15.7 % (11.6-14.8); WHITE BLOOD COUNT 4.7 K/UL (4.8-10.8)
[2019-11-16 07:05] LABS: ANION GAP 9 mmol/L (5-15); BLOOD UREA NITROGEN 43 mg/dL (7-18); CALCIUM 7.5 MG/DL (8.5-10.1); CARBON DIOXIDE 25 MMOL/L (21-32); CHLORIDE 108 MMOL/L (98-107); CREATININE 3.6 MG/DL (0.55-1.30); POTASSIUM 3.3 MMOL/L (3.5-5.1); SODIUM 142 MMOL/L (136-145)
--- NOTE | 2019-11-16 08:07 | General Progress Note ---
Assessment/Plan Status: stable, progressing Assessment/Plan: Assessment/Plan Status: stable, progressing Assessment/Plan: Assessment - GIB - resolved, presumed diverticular - Anemia - Azotemia - worsening - OBS - anorexia, s/p GT placement - Cholelithiasis - cirrhosis Recommendations - continue TF - monitor BM - PPI - follow CBC / BMP - transfuse PRN Subjective ROS Limited/Unobtainable: No Allergies: Coded Allergies: ERYTHROMYCIN BASE (Unverified Allergy, Intermediate, 07/14/19) Per patient not allergic to medications or food Objective Last 24 Hour Vital Signs Date Time Temp Pulse Resp B/P (MAP) Pulse Ox O2 Delivery O2 Flow Rate FiO2 11/16/19 05:44 150/78 11/16/19 04:00 97.7 87 18 150/79 (102) 98 11/16/19 00:00 97.9 88 20 137/80 (99) 96 11/15/19 21:49 Nasal Cannula 3.0 11/15/19 21:06 90 150/83 11/15/19 21:06 150/83 11/15/19 20:00 99.3 90 20 150/83 (105) 97 11/15/19 19:56 97 Nasal Cannula 3.0 32 11/15/19 17:19 89 157/83 11/15/19 16:00 99.0 89 22 142/81 (101) 97 11/15/19 14:27 151/75 11/15/19 14:00 151/75 (100) 11/15/19 13:08 165/83 11/15/19 12:00 98.3 88 23 165/83 (110) 97 11/15/19 10:56 97 Nasal Cannula 3.0 32 11/15/19 09:25 103 170/94 11/15/19 09:25 103 170/94 11/15/19 09:00 Nasal Cannula 3.0 Intake and Output 11/15/19 11/16/19 19:00 07:00 Intake Total 1620.0 ml 275 ml Output Total 1000 ml 800 ml Balance 620.0 ml -525 ml Intake Free Water 280 ml 100 ml IV Total 1060.0 ml Tube Feeding 280 ml 175 ml Output Urine Total 1000 ml 800 ml # Bowel Movements 5 2 Laboratory Tests 11/16/19 06:10: White Blood Count 4.7L, Red Blood Count 2.39L, Hemoglobin 7.3L, Hematocrit 21.7L , Mean Corpuscular Volume 91, Mean Corpuscular Hemoglobin 30.4, Mean Corpuscular Hemoglobin Concent 33.4, Red Cell Distribution Width 15.7H, Platelet Count 137L, Mean Platelet Volume 7.1, Neutrophils (%) (Auto) , Lymphocytes (%) (Auto) , Monocytes (%) (Auto) , Eosinophils (%) (Auto) , Basophils (%) (Auto) , Neutrophils % (Manual) [Pending], Lymphocytes % (Manual) [Pending], Platelet Estimate [Pending], Platelet Morphology [Pending], Sodium Level 142, Potassium Level 3.3L, Chloride Level 108H, Carbon Dioxide Level 25, Anion Gap 9, Blood Urea Nitrogen 43H, Creatinine 3.6H, Estimat Glomerular Filtration Rate , Glucose Level 100, Uric Acid 12.3H, Calcium Level 7.5L Height (Feet): 5 Height (Inches): 4.00 Weight (Pounds): 182 General Appearance: no apparent distress EENT: normal ENT inspection Neck: normal alignment Cardiovascular: normal rate Respiratory/Chest: decreased breath sounds Abdomen: normal bowel sounds, non tender, soft Extremities: non-tender David Bosch MD Nov 16, 2019 08:07
[2019-11-16] MEDS: Metoprolol Tartrate 50mg tab GT SCH ×2 (08:31→20:58)
[2019-11-16] MEDS: Sodium Citrate 30ml GT SCH ×2 (08:31→17:03)
--- NOTE | 2019-11-16 08:32 | General Progress Note ---
Assessment/Plan Problem List: (1) Sepsis ICD Codes: A41.9 - Sepsis, unspecified organism SNOMED: 32371666 (2) Respiratory failure (3) Anemia in chronic kidney disease ICD Codes: N18.9 - Chronic kidney disease, unspecified; D63.1 - Anemia in chronic kidney disease SNOMED: 370252986 (4) Hypothyroidism ICD Codes: E03.9 - Hypothyroidism SNOMED: 56910673 (5) Lower GI bleeding ICD Codes: K92.2 - Gastrointestinal hemorrhage, unspecified SNOMED: 52389270 (6) Fever ICD Codes: R50.9 - Fever, unspecified SNOMED: 324435988 (7) Cirrhosis ICD Codes: K74.60 - Unspecified cirrhosis of liver SNOMED: 71727642 (8) GI bleed ICD Codes: K92.2 - Gastrointestinal hemorrhage, unspecified SNOMED: 60490686 Status: stable, progressing Assessment/Plan: o2 resp care follow up cultures monitor renal fxn abx per id transfuse monitor for bleeding epo cautious hydration replace lytes as needed monitor cxr for improvements Subjective ROS Limited/Unobtainable: No Constitutional: Reports: malaise, weakness HEENT: Reports: no symptoms Cardiovascular: Reports: no symptoms Respiratory: Reports: no symptoms Gastrointestinal/Abdominal: Reports: difficulty swallowing, poor appetite Genitourinary: Reports: no symptoms Neurologic/Psychiatric: Reports: pre-existing deficit Endocrine: Reports: no symptoms Hematologic/Lymphatic: Reports: anemia Allergies: Coded Allergies: ERYTHROMYCIN BASE (Unverified Allergy, Intermediate, 07/14/19) Per patient not allergic to medications or food All Systems: reviewed and negative except above Subjective labs noted. decreased h/h. no fevers or chills. on iv abx. tolerating feeds Objective Last 24 Hour Vital Signs Date Time Temp Pulse Resp B/P (MAP) Pulse Ox O2 Delivery O2 Flow Rate FiO2 11/16/19 08:00 98.5 87 19 161/82 (108) 99 11/16/19 05:44 150/78 11/16/19 04:00 97.7 87 18 150/79 (102) 98 11/16/19 00:00 97.9 88 20 137/80 (99) 96 11/15/19 21:49 Nasal Cannula 3.0 11/15/19 21:06 90 150/83 11/15/19 21:06 150/83 11/15/19 20:00 99.3 90 20 150/83 (105) 97 11/15/19 19:56 97 Nasal Cannula 3.0 32 11/15/19 17:19 89 157/83 11/15/19 16:00 99.0 89 22 142/81 (101) 97 11/15/19 14:27 151/75 11/15/19 14:00 151/75 (100) 11/15/19 13:08 165/83 11/15/19 12:00 98.3 88 23 165/83 (110) 97 11/15/19 10:56 97 Nasal Cannula 3.0 32 11/15/19 09:25 103 170/94 11/15/19 09:25 103 170/94 11/15/19 09:00 Nasal Cannula 3.0 Intake and Output 11/15/19 11/16/19 19:00 07:00 Intake Total 1620.0 ml 275 ml Output Total 1000 ml 800 ml Balance 620.0 ml -525 ml Intake Free Water 280 ml 100 ml IV Total 1060.0 ml Tube Feeding 280 ml 175 ml Output Urine Total 1000 ml 800 ml # Bowel Movements 5 2 Laboratory Tests 11/16/19 06:10: White Blood Count 4.7L, Red Blood Count 2.39L, Hemoglobin 7.3L, Hematocrit 21.7L , Mean Corpuscular Volume 91, Mean Corpuscular Hemoglobin 30.4, Mean Corpuscular Hemoglobin Concent 33.4, Red Cell Distribution Width 15.7H, Platelet Count 137L, Mean Platelet Volume 7.1, Neutrophils (%) (Auto) , Lymphocytes (%) (Auto) , Monocytes (%) (Auto) , Eosinophils (%) (Auto) , Basophils (%) (Auto) , Neutrophils % (Manual) [Pending], Lymphocytes % (Manual) [Pending], Platelet Estimate [Pending], Platelet Morphology [Pending], Sodium Level 142, Potassium Level 3.3L, Chloride Level 108H, Carbon Dioxide Level 25, Anion Gap 9, Blood Urea Nitrogen 43H, Creatinine 3.6H, Estimat Glomerular Filtration Rate , Glucose Level 100, Uric Acid 12.3H, Calcium Level 7.5L Height (Feet): 5 Height (Inches): 4.00 Weight (Pounds): 182 Objective General Appearance: WD/WN, alert Neck: supple Cardiovascular: regular rhythm Respiratory/Chest: chest wall non-tender, lungs clear, normal breath sounds, no respiratory distress, no accessory muscle use Abdomen: normal bowel sounds, non tender, soft, no organomegaly, no mass Edema: no edema noted Arm (L), no edema noted Arm (R), no edema noted Leg (L), no edema noted Leg (R), no edema noted Pedal (L), no edema noted Pedal (R), no edema noted 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
--- NOTE | 2019-11-16 11:02 | Infectious Diseases Prog Note ---
Assessment/Plan Assessment/Plan A 1. pneumonia 2. renal failure improving 3. Anemia 4. Diverticular GI bleeding 5. CVA 6. hypertension 7. 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 continue Zosyn 2. will follow up cultures Subjective ROS Limited/Unobtainable: No Constitutional: Reports: no symptoms Respiratory: Reports: dry cough Cardiovascular: Reports: no symptoms Gastrointestinal/Abdominal: Reports: no symptoms Genitourinary: Reports: no symptoms Allergies: Coded Allergies: ERYTHROMYCIN BASE (Unverified Allergy, Intermediate, 07/14/19) Per patient not allergic to medications or food Objective Vital Signs Last 24 Hour Vital Signs Date Time Temp Pulse Resp B/P (MAP) Pulse Ox O2 Delivery O2 Flow Rate FiO2 11/16/19 09:16 87 161/82 11/16/19 08:31 87 161/82 11/16/19 08:00 98.5 87 19 161/82 (108) 99 11/16/19 05:44 150/78 11/16/19 04:00 97.7 87 18 150/79 (102) 98 11/16/19 00:00 97.9 88 20 137/80 (99) 96 11/15/19 21:49 Nasal Cannula 3.0 11/15/19 21:06 90 150/83 11/15/19 21:06 150/83 11/15/19 20:00 99.3 90 20 150/83 (105) 97 11/15/19 19:56 97 Nasal Cannula 3.0 32 11/15/19 17:19 89 157/83 11/15/19 16:00 99.0 89 22 142/81 (101) 97 11/15/19 14:27 151/75 11/15/19 14:00 151/75 (100) 11/15/19 13:08 165/83 11/15/19 12:00 98.3 88 23 165/83 (110) 97 Height (Feet): 5 Height (Inches): 4.00 Weight (Pounds): 182 General Appearance: no acute distress HEENT: mucous membranes moist Respiratory/Chest: lungs clear Cardiovascular: normal rate Abdomen: soft, non tender, other - GT feeding Extremities: no edema Neurologic/Psychiatric: alert, responsive Microbiology Date/Time Source Procedure Growth Status 11/13/19 14:40 Stool Clostridium difficile Toxin Assay - Final Complete Laboratory Tests Test 11/16/19 06:10 White Blood Count 4.7 K/UL (4.8-10.8) L Red Blood Count 2.39 M/UL (4.20-5.40) L Hemoglobin 7.3 G/DL (12.0-16.0) L Hematocrit 21.7 % (37.0-47.0) L Mean Corpuscular Volume 91 FL (80-99) Mean Corpuscular Hemoglobin 30.4 PG (27.0-31.0) Mean Corpuscular Hemoglobin Concent 33.4 G/DL (32.0-36.0) Red Cell Distribution Width 15.7 % (11.6-14.8) H Platelet Count 137 K/UL (150-450) L Mean Platelet Volume 7.1 FL (6.5-10.1) Neutrophils (%) (Auto) % (45.0-75.0) Lymphocytes (%) (Auto) % (20.0-45.0) Monocytes (%) (Auto) % (1.0-10.0) Eosinophils (%) (Auto) % (0.0-3.0) Basophils (%) (Auto) % (0.0-2.0) Differential Total Cells Counted 100 Neutrophils % (Manual) 60 % (45-75) Lymphocytes % (Manual) 35 % (20-45) Monocytes % (Manual) 5 % (1-10) Eosinophils % (Manual) 0 % (0-3) Basophils % (Manual) 0 % (0-2) Band Neutrophils 0 % (0-8) Platelet Estimate Decreased L Platelet Morphology Normal Anisocytosis 1+ Sodium Level 142 MMOL/L (136-145) Potassium Level 3.3 MMOL/L (3.5-5.1) L Chloride Level 108 MMOL/L (98-107) H Carbon Dioxide Level 25 MMOL/L (21-32) Anion Gap 9 mmol/L (5-15) Blood Urea Nitrogen 43 mg/dL (7-18) H Creatinine 3.6 MG/DL (0.55-1.30) H Estimat Glomerular Filtration Rate mL/min (>60) Glucose Level 100 MG/DL (74-106) Uric Acid 12.3 MG/DL (2.6-7.2) H Calcium Level 7.5 MG/DL (8.5-10.1) L Current Medications Medications (Trade) Dose Ordered Sig/Jonathan Route PRN Reason Start Time Stop Time Status Last Admin Dose Admin Acetaminophen (Tylenol) 650 mg Q4H PRN GT Pain Scale (3-5) and fever 11/13/19 17:29 12/13/19 17:28 11/13/19 17:31 Amlodipine Besylate (Norvasc) 5 mg BID GT 11/16/19 09:00 12/16/19 08:59 11/16/19 09:16 Clonidine HCl (Catapres Tab) 0.1 mg Q4H PRN GT SBP > 160mmHg 11/15/19 08:15 12/14/19 14:14 11/15/19 13:08 Diphenhydramine HCl (Benadryl) 25 mg Q6H PRN GT Itching 11/13/19 15:21 12/13/19 15:20 Epoetin Phu (Epoetin Phu-EPBX(NON ESRD)) 5,000 unit SUBQ 11/17/19 21:00 12/17/19 20:59 Famotidine (Pepcid I.v.) 10 mg Q12HR IVP 11/13/19 21:00 12/13/19 08:59 11/16/19 08:31 Hydralazine HCl (Apresoline) 100 mg Q8HR GT 11/13/19 22:00 12/08/19 13:59 11/16/19 05:44 Levothyroxine Sodium (Synthroid) 150 mcg ACBREAKFAST GT 11/14/19 06:30 12/13/19 06:29 11/16/19 05:44 Loperamide HCl (Imodium) 2 mg Q12H PRN GT Diarrhea 11/13/19 15:21 12/13/19 15:20 11/15/19 12:40 Metoprolol Tartrate (Lopressor) 50 mg Q12HR GT 11/13/19 21:00 12/08/19 08:59 11/16/19 08:31 Piperacillin Sod/ Tazobactam Sod 3.375 gm/Dextrose 110 ml @ 27.5 mls/hr Q12H IVPB 11/17/19 00:00 11/24/19 00:00 Piperacillin Sod/ Tazobactam Sod 3.375 gm/Sodium Chloride 110 ml @ 27.5 mls/hr Q12H IVPB 11/14/19 00:00 11/16/19 17:59 11/16/19 00:10 Sodium Chloride 1,000 ml @ 50 mls/hr Q20H IV 11/15/19 13:54 12/15/19 13:53 11/16/19 08:35 Sodium Citrate (Bicitra) 30 ml BID GT 11/13/19 18:00 12/08/19 08:59 11/16/19 08:31 Ruperto Freedman MD Nov 16, 2019 11:02
--- NOTE | 2019-11-16 14:34 | Nephrology Progress Note ---
Assessment/Plan Problem List: (1) Fever (2) CKD (chronic kidney disease) stage 5, GFR less than 15 ml/min (3) Cirrhosis (4) GI bleed (5) Anemia (6) Hyperuricemia (7) Acute renal failure (ARF) (8) Lung infiltrate (9) Anemia in chronic kidney disease Plan s/p febrile, culture and antibiotics ordered, ID eval, check bladder residual, now quintana, cxr reviewed as bun/cr rising, high uric suggests dehydration, but now with fluid overload, lasix ordered once, still hyperuricemia and diarrhea, check repeat cxr, hhn, kcl Subjective Constitutional: Reports: weakness HEENT: Reports: no symptoms Genitourinary: Reports: incontinence Neurologic/Psychiatric: Reports: pre-existing deficit Subjective mod diarrhea Objective Objective Last 24 Hour Vital Signs Date Time Temp Pulse Resp B/P (MAP) Pulse Ox O2 Delivery O2 Flow Rate FiO2 11/16/19 12:00 97.9 85 18 156/73 (100) 96 11/16/19 10:30 86 145/76 (99) 11/16/19 09:16 87 161/82 11/16/19 09:00 Nasal Cannula 3.0 11/16/19 08:31 87 161/82 11/16/19 08:00 98.5 87 19 161/82 (108) 99 11/16/19 05:44 150/78 11/16/19 04:00 97.7 87 18 150/79 (102) 98 11/16/19 00:00 97.9 88 20 137/80 (99) 96 11/15/19 21:49 Nasal Cannula 3.0 11/15/19 21:06 90 150/83 11/15/19 21:06 150/83 11/15/19 20:00 99.3 90 20 150/83 (105) 97 11/15/19 19:56 97 Nasal Cannula 3.0 32 11/15/19 17:19 89 157/83 11/15/19 16:00 99.0 89 22 142/81 (101) 97 Intake and Output 11/15/19 11/16/19 18:59 06:59 Intake Total 1520.0 ml 410 ml Output Total 1000 ml 800 ml Balance 520.0 ml -390 ml Intake Free Water 180 ml 200 ml IV Total 1060.0 ml Tube Feeding 280 ml 210 ml Output Urine Total 1000 ml 800 ml # Bowel Movements 5 2 Laboratory Tests 11/16/19 06:10: White Blood Count 4.7L, Red Blood Count 2.39L, Hemoglobin 7.3L, Hematocrit 21.7L , Mean Corpuscular Volume 91, Mean Corpuscular Hemoglobin 30.4, Mean Corpuscular Hemoglobin Concent 33.4, Red Cell Distribution Width 15.7H, Platelet Count 137L, Mean Platelet Volume 7.1, Neutrophils (%) (Auto) , Lymphocytes (%) (Auto) , Monocytes (%) (Auto) , Eosinophils (%) (Auto) , Basophils (%) (Auto) , Differential Total Cells Counted 100, Neutrophils % ( Manual) 60, Lymphocytes % (Manual) 35, Monocytes % (Manual) 5, Eosinophils % ( Manual) 0, Basophils % (Manual) 0, Band Neutrophils 0, Platelet Estimate DecreasedL, Platelet Morphology Normal, Anisocytosis 1+, Sodium Level 142, Potassium Level 3.3L, Chloride Level 108H, Carbon Dioxide Level 25, Anion Gap 9 , Blood Urea Nitrogen 43H, Creatinine 3.6H, Estimat Glomerular Filtration Rate , Glucose Level 100, Uric Acid 12.3H, Calcium Level 7.5L Height (Feet): 5 Height (Inches): 4.00 Weight (Pounds): 182 General Appearance: alert, confused EENT: normal ENT inspection Neck: normal alignment Cardiovascular: normal rate Respiratory/Chest: rhonchi - bilaterally Abdomen: non tender, distended Extremities: trace edema 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
[2019-11-16] MEDS: Albuterol/Ipratropium 3ml neb HHN SCH ×3 (16:06→23:38)
[2019-11-16] MEDS: Acetaminophen 650mg/20.3ml GT PRN (21:55)
[2019-11-16] MEDS: Piperacillin/Tazobactam 3.375 GM in D5W 110 ML IVPB SCH (23:41)
[2019-11-17 00:13] VITALS: BP 150/82
[2019-11-17] MEDS: Albuterol/Ipratropium 3ml neb HHN SCH ×6 (03:13→23:48)
[2019-11-17 04:00] VITALS: BP 158/90
[2019-11-17] MEDS: HydrALAZINE 50mg tab GT SCH ×3 (05:11→23:12)
[2019-11-17 07:52] LABS: BASOPHILS % (AUTO) 0.7 % (0.0-2.0); EOSINOPHILS % (AUTO) 1.4 % (0.0-3.0); HEMATOCRIT 28.4 % (37.0-47.0); HEMOGLOBIN 9.3 G/DL (12.0-16.0); LYMPHOCYTES % (AUTO) 17.5 % (20.0-45.0); MEAN CORPUSCULAR VOLUME 90 FL (80-99); MONOCYTES % (AUTO) 6.9 % (1.0-10.0); NEUTROPHILS % (AUTO) 73.5 % (45.0-75.0); PLATELET COUNT 166 K/UL (150-450); RED BLOOD COUNT 3.16 M/UL (4.20-5.40); RED CELL DISTRIBUTION WIDTH 16.5 % (11.6-14.8); WHITE BLOOD COUNT 4.3 K/UL (4.8-10.8)
[2019-11-17 08:00] VITALS: BP 148/92
[2019-11-17 08:13] LABS: PHOSPHORUS 4.6 MG/DL (2.5-4.9)
[2019-11-17 08:27] LABS: ALANINE AMINOTRANSFERASE 17 U/L (12-78); ALBUMIN 1.9 G/DL (3.4-5.0); ALBUMIN/GLOBULIN RATIO 0.4 (1.0-2.7); ALKALINE PHOSPHATASE 54 U/L (46-116); ANION GAP 10 mmol/L (5-15); ASPARTATE AMINO TRANSFERASE 31 U/L (15-37); BILIRUBIN,TOTAL 0.5 MG/DL (0.2-1.0); BLOOD UREA NITROGEN 40 mg/dL (7-18); CALCIUM 8.5 MG/DL (8.5-10.1); CARBON DIOXIDE 27 MMOL/L (21-32); CHLORIDE 109 MMOL/L (98-107); CREATININE 3.3 MG/DL (0.55-1.30); POTASSIUM 3.3 MMOL/L (3.5-5.1); SODIUM 145 MMOL/L (136-145)
--- NOTE | 2019-11-17 08:32 | Nephrology Progress Note ---
Assessment/Plan Problem List: (1) Fever (2) CKD (chronic kidney disease) stage 5, GFR less than 15 ml/min (3) Cirrhosis (4) GI bleed (5) Anemia (6) Hyperuricemia (7) Acute renal failure (ARF) (8) Lung infiltrate (9) Anemia in chronic kidney disease Plan s/p febrile, culture and antibiotics ordered, ID eval, check bladder residual, now quintana, cxr reviewed as bun/cr rising, high uric suggests dehydration,still hyperuricemia and diarrhea, check repeat cxr, hhn, kcl Subjective Constitutional: Reports: weakness HEENT: Reports: no symptoms Genitourinary: Reports: incontinence Neurologic/Psychiatric: Reports: pre-existing deficit Subjective mod diarrhea Objective Objective Last 24 Hour Vital Signs Date Time Temp Pulse Resp B/P (MAP) Pulse Ox O2 Delivery O2 Flow Rate FiO2 11/17/19 08:00 97.7 94 18 148/92 (110) 100 11/17/19 06:28 94 18 100 Nasal Cannula 3.0 32 88 18 96 11/17/19 06:27 96 Nasal Cannula 3.0 32 11/17/19 04:00 97.5 93 18 158/90 (112) 97 11/17/19 03:13 92 21 100 Nasal Cannula 3.0 32 90 17 97 11/17/19 00:13 98.1 88 16 150/82 (104) 98 11/16/19 23:41 71 17 99 Nasal Cannula 3.0 32 87 18 97 11/16/19 22:25 100.0 11/16/19 21:08 Nasal Cannula 3.0 11/16/19 20:58 88 162/78 11/16/19 20:57 162/78 11/16/19 20:15 91 20 100 Nasal Cannula 3.0 32 87 15 95 11/16/19 20:15 95 Nasal Cannula 3.0 32 11/16/19 20:00 101.7 93 17 162/77 (105) 98 11/16/19 17:03 89 134/94 11/16/19 16:14 89 18 100 Nasal Cannula 2.0 28 91 20 97 11/16/19 16:04 91 20 97 Nasal Cannula 3.0 32 11/16/19 16:00 98.2 90 20 134/94 (107) 99 11/16/19 15:17 156/73 11/16/19 12:00 97.9 85 18 156/73 (100) 96 11/16/19 10:30 86 145/76 (99) 11/16/19 09:16 87 161/82 11/16/19 09:00 Nasal Cannula 3.0 11/16/19 08:31 87 161/82 Intake and Output 11/16/19 11/17/19 19:00 07:00 Intake Total 870.0 ml 225 ml Output Total 1175 ml 1200 ml Balance -305.0 ml -975 ml Intake Free Water 90 ml 120 ml IV Total 360.0 ml Tube Feeding 420 ml 105 ml Output Urine Total 1175 ml 1200 ml # Voids 3 # Bowel Movements 5 6 Laboratory Tests 11/17/19 05:37: White Blood Count 4.3L, Red Blood Count 3.16L, Hemoglobin 9.3L, Hematocrit 28.4# L, Mean Corpuscular Volume 90, Mean Corpuscular Hemoglobin 29.5, Mean Corpuscular Hemoglobin Concent 32.8, Red Cell Distribution Width 16.5H, Platelet Count 166, Mean Platelet Volume 7.4, Neutrophils (%) (Auto) 73.5, Lymphocytes (%) (Auto) 17.5L, Monocytes (%) (Auto) 6.9, Eosinophils (%) (Auto) 1.4, Basophils (%) (Auto) 0.7, Sodium Level 145, Potassium Level 3.3L, Chloride Level 109H, Carbon Dioxide Level 27, Anion Gap 10, Blood Urea Nitrogen 40H, Creatinine 3.3H, Estimat Glomerular Filtration Rate , Glucose Level 101, Uric Acid 11.4H, Calcium Level 8.5, Phosphorus Level 4.6, Magnesium Level 1.4L, Total Bilirubin 0.5, Aspartate Amino Transf (AST/SGOT) 31, Alanine Aminotransferase (ALT/SGPT) 17, Alkaline Phosphatase 54, Total Protein 7.1, Albumin 1.9L, Globulin 5.2, Albumin/Globulin Ratio 0.4L Height (Feet): 5 Height (Inches): 4.00 Weight (Pounds): 182 General Appearance: no apparent distress, alert EENT: normal ENT inspection Neck: normal alignment Cardiovascular: regular rhythm Respiratory/Chest: rhonchi - bilaterally Abdomen: distended Extremities: trace edema Neurologic: motor weakness Jose Lemus MD Nov 17, 2019 08:32
--- NOTE | 2019-11-17 08:59 | General Progress Note ---
Assessment/Plan Status: stable, progressing Assessment/Plan: Assessment/Plan Status: stable, progressing Assessment/Plan: Assessment - GIB - resolved, presumed diverticular - Anemia - Azotemia - worsening - OBS - anorexia, s/p GT placement - Cholelithiasis - cirrhosis Recommendations - continue TF - monitor BM - PPI - follow CBC / BMP - transfuse PRN - fever>>> work up ordered by the primary team>>> ID fu Subjective Allergies: Coded Allergies: ERYTHROMYCIN BASE (Unverified Allergy, Intermediate, 07/14/19) Per patient not allergic to medications or food Objective Last 24 Hour Vital Signs Date Time Temp Pulse Resp B/P (MAP) Pulse Ox O2 Delivery O2 Flow Rate FiO2 11/17/19 08:00 97.7 94 18 148/92 (110) 100 11/17/19 06:28 94 18 100 Nasal Cannula 3.0 32 88 18 96 11/17/19 06:27 96 Nasal Cannula 3.0 32 11/17/19 04:00 97.5 93 18 158/90 (112) 97 11/17/19 03:13 92 21 100 Nasal Cannula 3.0 32 90 17 97 11/17/19 00:13 98.1 88 16 150/82 (104) 98 11/16/19 23:41 71 17 99 Nasal Cannula 3.0 32 87 18 97 11/16/19 22:25 100.0 11/16/19 21:08 Nasal Cannula 3.0 11/16/19 20:58 88 162/78 11/16/19 20:57 162/78 11/16/19 20:15 91 20 100 Nasal Cannula 3.0 32 87 15 95 11/16/19 20:15 95 Nasal Cannula 3.0 32 11/16/19 20:00 101.7 93 17 162/77 (105) 98 11/16/19 17:03 89 134/94 11/16/19 16:14 89 18 100 Nasal Cannula 2.0 28 91 20 97 11/16/19 16:04 91 20 97 Nasal Cannula 3.0 32 11/16/19 16:00 98.2 90 20 134/94 (107) 99 11/16/19 15:17 156/73 11/16/19 12:00 97.9 85 18 156/73 (100) 96 11/16/19 10:30 86 145/76 (99) 11/16/19 09:16 87 161/82 11/16/19 09:00 Nasal Cannula 3.0 Intake and Output 11/16/19 11/17/19 19:00 07:00 Intake Total 870.0 ml 225 ml Output Total 1175 ml 1200 ml Balance -305.0 ml -975 ml Intake Free Water 90 ml 120 ml IV Total 360.0 ml Tube Feeding 420 ml 105 ml Output Urine Total 1175 ml 1200 ml # Voids 3 # Bowel Movements 5 6 Laboratory Tests 11/17/19 05:37: White Blood Count 4.3L, Red Blood Count 3.16L, Hemoglobin 9.3L, Hematocrit 28.4# L, Mean Corpuscular Volume 90, Mean Corpuscular Hemoglobin 29.5, Mean Corpuscular Hemoglobin Concent 32.8, Red Cell Distribution Width 16.5H, Platelet Count 166, Mean Platelet Volume 7.4, Neutrophils (%) (Auto) 73.5, Lymphocytes (%) (Auto) 17.5L, Monocytes (%) (Auto) 6.9, Eosinophils (%) (Auto) 1.4, Basophils (%) (Auto) 0.7, Sodium Level 145, Potassium Level 3.3L, Chloride Level 109H, Carbon Dioxide Level 27, Anion Gap 10, Blood Urea Nitrogen 40H, Creatinine 3.3H, Estimat Glomerular Filtration Rate , Glucose Level 101, Uric Acid 11.4H, Calcium Level 8.5, Phosphorus Level 4.6, Magnesium Level 1.4L, Total Bilirubin 0.5, Aspartate Amino Transf (AST/SGOT) 31, Alanine Aminotransferase (ALT/SGPT) 17, Alkaline Phosphatase 54, Total Protein 7.1, Albumin 1.9L, Globulin 5.2, Albumin/Globulin Ratio 0.4L Height (Feet): 5 Height (Inches): 4.00 Weight (Pounds): 182 General Appearance: no apparent distress EENT: normal ENT inspection Neck: supple Cardiovascular: normal rate Respiratory/Chest: decreased breath sounds Abdomen: normal bowel sounds, non tender, soft Extremities: non-tender David Bosch MD Nov 17, 2019 08:59
[2019-11-17] MEDS: Metoprolol Tartrate 50mg tab GT SCH ×3 (09:00→23:12)
[2019-11-17] MEDS: Sodium Citrate 30ml GT SCH ×2 (09:43→17:24)
--- NOTE | 2019-11-17 10:38 | General Progress Note ---
Assessment/Plan Problem List: (1) Sepsis ICD Codes: A41.9 - Sepsis, unspecified organism SNOMED: 74461234 (2) Respiratory failure (3) Anemia in chronic kidney disease ICD Codes: N18.9 - Chronic kidney disease, unspecified; D63.1 - Anemia in chronic kidney disease SNOMED: 315528193 (4) Hypothyroidism ICD Codes: E03.9 - Hypothyroidism SNOMED: 28936398 (5) Lower GI bleeding ICD Codes: K92.2 - Gastrointestinal hemorrhage, unspecified SNOMED: 29427622 (6) Fever ICD Codes: R50.9 - Fever, unspecified SNOMED: 387426953 (7) Cirrhosis ICD Codes: K74.60 - Unspecified cirrhosis of liver SNOMED: 36684383 (8) GI bleed ICD Codes: K92.2 - Gastrointestinal hemorrhage, unspecified SNOMED: 26812768 Status: stable, progressing Assessment/Plan: o2 resp care follow up cultures monitor renal fxn abx per id transfuse monitor for bleeding epo cautious hydration replace lytes as needed dc planning Subjective ROS Limited/Unobtainable: No Constitutional: Reports: malaise, weakness HEENT: Reports: no symptoms Cardiovascular: Reports: no symptoms Respiratory: Reports: no symptoms Gastrointestinal/Abdominal: Reports: poor appetite Genitourinary: Reports: no symptoms Neurologic/Psychiatric: Reports: no symptoms Endocrine: Reports: no symptoms Hematologic/Lymphatic: Reports: anemia Allergies: Coded Allergies: ERYTHROMYCIN BASE (Unverified Allergy, Intermediate, 07/14/19) Per patient not allergic to medications or food All Systems: reviewed and negative except above Subjective labs noted. decreased h/h. no fevers or chills. on iv abx. tolerating feeds Objective Last 24 Hour Vital Signs Date Time Temp Pulse Resp B/P (MAP) Pulse Ox O2 Delivery O2 Flow Rate FiO2 11/17/19 09:44 94 148/92 11/17/19 09:43 94 148/92 11/17/19 08:00 97.7 94 18 148/92 (110) 100 11/17/19 06:28 94 18 100 Nasal Cannula 3.0 32 88 18 96 11/17/19 06:27 96 Nasal Cannula 3.0 32 11/17/19 04:00 97.5 93 18 158/90 (112) 97 11/17/19 03:13 92 21 100 Nasal Cannula 3.0 32 90 17 97 11/17/19 00:13 98.1 88 16 150/82 (104) 98 11/16/19 23:41 71 17 99 Nasal Cannula 3.0 32 87 18 97 11/16/19 22:25 100.0 11/16/19 21:08 Nasal Cannula 3.0 11/16/19 20:58 88 162/78 11/16/19 20:57 162/78 11/16/19 20:15 91 20 100 Nasal Cannula 3.0 32 87 15 95 11/16/19 20:15 95 Nasal Cannula 3.0 32 11/16/19 20:00 101.7 93 17 162/77 (105) 98 11/16/19 17:03 89 134/94 11/16/19 16:14 89 18 100 Nasal Cannula 2.0 28 91 20 97 11/16/19 16:04 91 20 97 Nasal Cannula 3.0 32 11/16/19 16:00 98.2 90 20 134/94 (107) 99 11/16/19 15:17 156/73 11/16/19 12:00 97.9 85 18 156/73 (100) 96 Intake and Output 11/16/19 11/17/19 19:00 07:00 Intake Total 870.0 ml 225 ml Output Total 1175 ml 1200 ml Balance -305.0 ml -975 ml Intake Free Water 90 ml 120 ml IV Total 360.0 ml Tube Feeding 420 ml 105 ml Output Urine Total 1175 ml 1200 ml # Voids 3 # Bowel Movements 5 6 Laboratory Tests 11/17/19 05:37: White Blood Count 4.3L, Red Blood Count 3.16L, Hemoglobin 9.3L, Hematocrit 28.4# L, Mean Corpuscular Volume 90, Mean Corpuscular Hemoglobin 29.5, Mean Corpuscular Hemoglobin Concent 32.8, Red Cell Distribution Width 16.5H, Platelet Count 166, Mean Platelet Volume 7.4, Neutrophils (%) (Auto) 73.5, Lymphocytes (%) (Auto) 17.5L, Monocytes (%) (Auto) 6.9, Eosinophils (%) (Auto) 1.4, Basophils (%) (Auto) 0.7, Sodium Level 145, Potassium Level 3.3L, Chloride Level 109H, Carbon Dioxide Level 27, Anion Gap 10, Blood Urea Nitrogen 40H, Creatinine 3.3H, Estimat Glomerular Filtration Rate , Glucose Level 101, Uric Acid 11.4H, Calcium Level 8.5, Phosphorus Level 4.6, Magnesium Level 1.4L, Total Bilirubin 0.5, Aspartate Amino Transf (AST/SGOT) 31, Alanine Aminotransferase (ALT/SGPT) 17, Alkaline Phosphatase 54, Total Protein 7.1, Albumin 1.9L, Globulin 5.2, Albumin/Globulin Ratio 0.4L Height (Feet): 5 Height (Inches): 4.00 Weight (Pounds): 182 Objective General Appearance: WD/WN, alert Neck: supple Cardiovascular: regular rhythm Respiratory/Chest: chest wall non-tender, lungs clear, normal breath sounds, no respiratory distress, no accessory muscle use Abdomen: normal bowel sounds, non tender, soft, no organomegaly, no mass Edema: no edema noted Arm (L), no edema noted Arm (R), no edema noted Leg (L), no edema noted Leg (R), no edema noted Pedal (L), no edema noted Pedal (R), no edema noted 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
--- NOTE | 2019-11-17 10:57 | Infectious Diseases Prog Note ---
Assessment/Plan Assessment/Plan antibiotics : zosyn A 1. pneumonia 2. renal failure improving 3. leucocytosis resolved 4. fever 5. CVA 6. hypertension P 1. continue zosyn 2. will follow up culture 3. blood culture 4. UA and urine 5. sputum culture 6. start iv vancomycin Subjective Constitutional: Denies: fever, chills Respiratory: Denies: shortness of breath, dry cough Gastrointestinal/Abdominal: Denies: nausea, vomiting, diarrhea Musculoskeletal: Denies: pain Allergies: Coded Allergies: ERYTHROMYCIN BASE (Unverified Allergy, Intermediate, 07/14/19) Per patient not allergic to medications or food Objective Vital Signs Last 24 Hour Vital Signs Date Time Temp Pulse Resp B/P (MAP) Pulse Ox O2 Delivery O2 Flow Rate FiO2 11/17/19 10:53 90 18 100 Nasal Cannula 3.0 32 82 16 97 11/17/19 09:44 94 148/92 11/17/19 09:43 94 148/92 11/17/19 09:00 Nasal Cannula 3.0 11/17/19 08:00 97.7 94 18 148/92 (110) 100 11/17/19 06:28 94 18 100 Nasal Cannula 3.0 32 88 18 96 11/17/19 06:27 96 Nasal Cannula 3.0 32 11/17/19 04:00 97.5 93 18 158/90 (112) 97 11/17/19 03:13 92 21 100 Nasal Cannula 3.0 32 90 17 97 11/17/19 00:13 98.1 88 16 150/82 (104) 98 11/16/19 23:41 71 17 99 Nasal Cannula 3.0 32 87 18 97 11/16/19 22:25 100.0 11/16/19 21:08 Nasal Cannula 3.0 11/16/19 20:58 88 162/78 11/16/19 20:57 162/78 11/16/19 20:15 91 20 100 Nasal Cannula 3.0 32 87 15 95 11/16/19 20:15 95 Nasal Cannula 3.0 32 11/16/19 20:00 101.7 93 17 162/77 (105) 98 11/16/19 17:03 89 134/94 11/16/19 16:14 89 18 100 Nasal Cannula 2.0 28 91 20 97 11/16/19 16:04 91 20 97 Nasal Cannula 3.0 32 11/16/19 16:00 98.2 90 20 134/94 (107) 99 11/16/19 15:17 156/73 11/16/19 12:00 97.9 85 18 156/73 (100) 96 Height (Feet): 5 Height (Inches): 4.00 Weight (Pounds): 182 Respiratory/Chest: lungs clear Cardiovascular: normal rate, regular rhythm, no gallop/murmur Abdomen: soft, non tender Extremities: no edema Laboratory Tests Test 11/17/19 05:37 White Blood Count 4.3 K/UL (4.8-10.8) L Red Blood Count 3.16 M/UL (4.20-5.40) L Hemoglobin 9.3 G/DL (12.0-16.0) L Hematocrit 28.4 % (37.0-47.0) #L Mean Corpuscular Volume 90 FL (80-99) Mean Corpuscular Hemoglobin 29.5 PG (27.0-31.0) Mean Corpuscular Hemoglobin Concent 32.8 G/DL (32.0-36.0) Red Cell Distribution Width 16.5 % (11.6-14.8) H Platelet Count 166 K/UL (150-450) Mean Platelet Volume 7.4 FL (6.5-10.1) Neutrophils (%) (Auto) 73.5 % (45.0-75.0) Lymphocytes (%) (Auto) 17.5 % (20.0-45.0) L Monocytes (%) (Auto) 6.9 % (1.0-10.0) Eosinophils (%) (Auto) 1.4 % (0.0-3.0) Basophils (%) (Auto) 0.7 % (0.0-2.0) Sodium Level 145 MMOL/L (136-145) Potassium Level 3.3 MMOL/L (3.5-5.1) L Chloride Level 109 MMOL/L (98-107) H Carbon Dioxide Level 27 MMOL/L (21-32) Anion Gap 10 mmol/L (5-15) Blood Urea Nitrogen 40 mg/dL (7-18) H Creatinine 3.3 MG/DL (0.55-1.30) H Estimat Glomerular Filtration Rate mL/min (>60) Glucose Level 101 MG/DL (74-106) Uric Acid 11.4 MG/DL (2.6-7.2) H Calcium Level 8.5 MG/DL (8.5-10.1) Phosphorus Level 4.6 MG/DL (2.5-4.9) Magnesium Level 1.4 MG/DL (1.8-2.4) L Total Bilirubin 0.5 MG/DL (0.2-1.0) Aspartate Amino Transf (AST/SGOT) 31 U/L (15-37) Alanine Aminotransferase (ALT/SGPT) 17 U/L (12-78) Alkaline Phosphatase 54 U/L (46-116) Total Protein 7.1 G/DL (6.4-8.2) Albumin 1.9 G/DL (3.4-5.0) L Globulin 5.2 g/dL Albumin/Globulin Ratio 0.4 (1.0-2.7) L Current Medications Medications (Trade) Dose Ordered Sig/Jonathan Route PRN Reason Start Time Stop Time Status Last Admin Dose Admin Acetaminophen (Tylenol) 650 mg Q4H PRN GT Pain Scale (3-5) and fever 11/13/19 17:29 12/13/19 17:28 11/16/19 21:55 Albuterol/ Ipratropium (Albuterol/ Ipratropium) 3 ml Q4HRT HHN 11/16/19 15:00 11/21/19 14:59 11/17/19 10:30 Amlodipine Besylate (Norvasc) 5 mg BID GT 11/16/19 09:00 12/16/19 08:59 11/17/19 09:43 Clonidine HCl (Catapres Tab) 0.1 mg Q4H PRN GT SBP > 160mmHg 11/15/19 08:15 12/14/19 14:14 11/15/19 13:08 Diphenhydramine HCl (Benadryl) 25 mg Q6H PRN GT Itching 11/13/19 15:21 12/13/19 15:20 Epoetin Phu (Epoetin Phu-EPBX(NON ESRD)) 10,000 unit SUN-SUN-SUN SUBQ 11/17/19 21:00 12/17/19 20:59 Famotidine (Pepcid I.v.) 10 mg Q12HR IVP 11/13/19 21:00 12/13/19 08:59 11/17/19 09:43 Hydralazine HCl (Apresoline) 100 mg Q8HR GT 11/13/19 22:00 12/08/19 13:59 11/17/19 05:11 Levothyroxine Sodium (Synthroid) 150 mcg ACBREAKFAST GT 11/14/19 06:30 12/13/19 06:29 11/17/19 05:11 Loperamide HCl (Imodium) 2 mg Q12H PRN GT Diarrhea 11/13/19 15:21 12/13/19 15:20 11/17/19 09:46 Metoprolol Tartrate (Lopressor) 50 mg Q12HR GT 11/13/19 21:00 12/08/19 08:59 11/17/19 09:44 Piperacillin Sod/ Tazobactam Sod 3.375 gm/Dextrose 110 ml @ 27.5 mls/hr Q12H IVPB 11/17/19 00:00 11/24/19 00:00 11/16/19 23:41 Potassium Chloride (K-Dur) 40 meq Q4HR GT 11/17/19 09:00 11/17/19 13:01 11/17/19 09:43 Sodium Chloride 1,000 ml @ 50 mls/hr Q20H IV 11/15/19 13:54 12/15/19 13:53 11/17/19 05:10 Sodium Citrate (Bicitra) 30 ml BID GT 11/13/19 18:00 12/08/19 08:59 11/17/19 09:43 Jessica Reyes MD Nov 17, 2019 10:57
[2019-11-17 12:00] VITALS: BP 158/93
[2019-11-17] MEDS: Piperacillin/Tazobactam 3.375 GM in D5W 110 ML IVPB SCH ×2 (12:00→23:22)
--- NOTE | 2019-11-17 12:19 | Diagnostic Imaging Report ---
Indication: Cough, shortness of breath Technique: One view of the chest Comparison: 11/14/2019 Findings: Bilateral interstitial and airspace edema is slightly worse than on the prior study. The heart remains enlarged. The pleural spaces remain grossly clear. Slight granulomatous lymph node is seen in the mediastinum Impression: Bilateral interstitial and airspace edema, slightly worse than on prior exam of 3 days earlier
[2019-11-17] MEDS ORDERED: Vancomycin 1 GM in D5W 275 ML IVPB SCH (13:00)
[2019-11-17 16:00] VITALS: BP 150/72
[2019-11-17] MEDS ORDERED: Heparin1,000 units/500ml Premix(Conc:2 units/ml) IV PRN (16:14)
[2019-11-17] MEDS ORDERED: Lidocaine 1% Plain 30 ml INJ PRN (16:15)
[2019-11-17 18:49] LABS: APPEARANCE,URINE CLEAR; BILIRUBIN, URINE NEGATIVE (NEGATIVE); COLOR,URINE PALE YELLOW; GLUCOSE, URINE (UA) NEGATIVE (NEGATIVE); KETONES,URINE NEGATIVE (NEGATIVE); LEUKOCYTE ESTERASE ,URINE NEGATIVE (NEGATIVE); NITRITE,URINE NEGATIVE (NEGATIVE); PH,URINE 7 (4.5-8.0); PROTEIN,URINE 3+ (NEGATIVE); UROBILINOGEN,URINE NORMAL MG/DL (0.0-1.0)
[2019-11-17 20:00] VITALS: BP 159/98
[2019-11-17] MEDS: Dyna-Hex 2% Top Sol 2oz TOPIC SCH (20:00)
[2019-11-17] MEDS ORDERED: Epoetin Alfa-EPBX (NON ESRD)10,000 unit/ml vial SUBQ SCH (21:00)
[2019-11-17] MEDS: Epoetin Alfa-EPBX (NON ESRD)10,000 unit/ml vial SUBQ SCH (23:13)
[2019-11-18] VITALS: BP 155/83
[2019-11-18] MEDS: Albuterol/Ipratropium 3ml neb HHN SCH ×5 (03:27→20:24)
[2019-11-18 04:00] VITALS: BP 151/94
[2019-11-18] MEDS: HydrALAZINE 50mg tab GT SCH ×3 (05:43→22:17)
[2019-11-18 07:09] LABS: BASOPHILS % (AUTO) 0.5 % (0.0-2.0); HEMATOCRIT 26.6 % (37.0-47.0); LYMPHOCYTES % (AUTO) 12.3 % (20.0-45.0); MEAN CORPUSCULAR VOLUME 88 FL (80-99); MONOCYTES % (AUTO) 4.1 % (1.0-10.0); NEUTROPHILS % (AUTO) 82.1 % (45.0-75.0); PLATELET COUNT 173 K/UL (150-450); RED BLOOD COUNT 3.04 M/UL (4.20-5.40); RED CELL DISTRIBUTION WIDTH 16.8 % (11.6-14.8); WHITE BLOOD COUNT 5.1 K/UL (4.8-10.8)
[2019-11-18 07:15] LABS: ANION GAP 9 mmol/L (5-15); BLOOD UREA NITROGEN 38 mg/dL (7-18); CALCIUM 8.7 MG/DL (8.5-10.1); CARBON DIOXIDE 28 MMOL/L (21-32); CHLORIDE 115 MMOL/L (98-107); CREATININE 2.9 MG/DL (0.55-1.30); SODIUM 152 MMOL/L (136-145)
--- NOTE | 2019-11-18 07:53 | Nephrology Progress Note ---
Assessment/Plan Problem List: (1) Fever (2) CKD (chronic kidney disease) stage 5, GFR less than 15 ml/min (3) Cirrhosis (4) GI bleed (5) Anemia (6) Hyperuricemia (7) Acute renal failure (ARF) (8) Lung infiltrate (9) Anemia in chronic kidney disease Plan s/p febrile, culture and antibiotics ordered, ID eval, check bladder residual, now quint[place], cxr reviewed as bun/cr rising, high uric suggests dehydration,still hyperuricemia and diarrhea, hypernatremic, check repeat cxr, hhn, kcl, not clearly chf, infiltrates may be pneumonia, poor iv access to get picc Subjective Constitutional: Reports: weakness HEENT: Reports: no symptoms Genitourinary: Reports: incontinence Neurologic/Psychiatric: Reports: pre-existing deficit Subjective mod diarrhea Objective Objective Last 24 Hour Vital Signs Date Time Temp Pulse Resp B/P (MAP) Pulse Ox O2 Delivery O2 Flow Rate FiO2 11/18/19 05:43 151/94 11/18/19 04:00 98.0 102 20 151/94 (113) 99 11/18/19 03:27 92 18 99 Nasal Cannula 3.0 32 89 18 97 11/18/19 00:00 98.6 95 20 155/83 (107) 100 11/17/19 23:48 95 18 99 Nasal Cannula 3.0 32 92 18 96 11/17/19 23:12 96 159/98 11/17/19 23:12 159/98 11/17/19 21:00 Nasal Cannula 3.0 11/17/19 20:25 96 20 100 Nasal Cannula 3.0 32 94 18 97 11/17/19 20:25 97 Nasal Cannula 3.0 32 11/17/19 20:00 97.7 96 18 159/98 (118) 100 11/17/19 17:24 98 150/72 11/17/19 16:00 98.8 98 16 150/72 (98) 99 11/17/19 14:42 96 20 100 Nasal Cannula 3.0 32 92 18 97 11/17/19 14:20 158/93 11/17/19 12:00 98.8 93 19 158/93 (114) 99 11/17/19 10:53 90 18 100 Nasal Cannula 3.0 32 82 16 97 11/17/19 09:00 96 158/93 11/17/19 09:00 96 158/93 11/17/19 09:00 Nasal Cannula 3.0 11/17/19 08:00 97.7 94 18 148/92 (110) 100 Intake and Output 11/17/19 11/18/19 19:00 07:00 Intake Total 85 ml 435 ml Output Total 1200 ml 1100 ml Balance -1115 ml -665 ml Intake Free Water 50 ml 50 ml Tube Feeding 35 ml 385 ml Output Urine Total 1200 ml 1100 ml # Bowel Movements 4 4 Laboratory Tests 11/17/19 17:32: Urine Color Pale yellow, Urine Appearance Clear, Urine pH 7, Urine Specific [place] 1.010, Urine Protein 3+H, Urine Glucose (UA) Negative, Urine Ketones Negative, Urine Blood 3+H, Urine Nitrite Negative, Urine Bilirubin Negative, Urine Urobilinogen Normal, Urine Leukocyte Esterase Negative, Urine RBC 5-10H, Urine WBC 2-4, Urine Squamous Epithelial Cells Few, Urine Bacteria Few 11/18/19 05:32: White Blood Count 5.1, Red Blood Count 3.04L, Hemoglobin 9.0L, Hematocrit 26.6L , Mean Corpuscular Volume 88, Mean Corpuscular Hemoglobin 29.6, Mean Corpuscular Hemoglobin Concent 33.8, Red Cell Distribution Width 16.8H, Platelet Count 173, Mean Platelet Volume 7.7, Neutrophils (%) (Auto) 82.1H, Lymphocytes (%) (Auto) 12.3L, Monocytes (%) (Auto) 4.1, Eosinophils (%) (Auto) 1.0, Basophils (%) (Auto) 0.5, Sodium Level 152H, Potassium Level 4.0, Chloride Level 115H, Carbon Dioxide Level 28, Anion Gap 9, Blood Urea Nitrogen 38H, Creatinine 2.9H, Estimat Glomerular Filtration Rate , Glucose Level 104, Uric Acid 11.8H, Calcium Level 8.7 Height (Feet): 5 Height (Inches): 4.00 Weight (Pounds): 182 General Appearance: no apparent distress, alert, confused EENT: normal ENT inspection Neck: normal alignment Cardiovascular: normal rate, regular rhythm Respiratory/Chest: rhonchi - bilaterally Abdomen: soft, distended Extremities: non-tender, trace edema Neurologic: motor weakness Jose Lemus MD Nov 18, 2019 07:53
[2019-11-18 08:00] VITALS: BP 160/81
--- NOTE | 2019-11-18 08:46 | General Progress Note ---
Assessment/Plan Problem List: (1) Sepsis ICD Codes: A41.9 - Sepsis, unspecified organism SNOMED: 34481380 (2) Respiratory failure (3) Anemia in chronic kidney disease ICD Codes: N18.9 - Chronic kidney disease, unspecified; D63.1 - Anemia in chronic kidney disease SNOMED: 544545919 (4) Hypothyroidism ICD Codes: E03.9 - Hypothyroidism SNOMED: 62804891 (5) Lower GI bleeding ICD Codes: K92.2 - Gastrointestinal hemorrhage, unspecified SNOMED: 15386097 (6) Fever ICD Codes: R50.9 - Fever, unspecified SNOMED: 207784933 (7) Cirrhosis ICD Codes: K74.60 - Unspecified cirrhosis of liver SNOMED: 08504861 (8) GI bleed ICD Codes: K92.2 - Gastrointestinal hemorrhage, unspecified SNOMED: 00645068 Status: stable, progressing Assessment/Plan: o2 resp care follow up cultures monitor renal fxn renal follow up re: high na abx per id transfuse asneeded monitor for bleeding epo Subjective ROS Limited/Unobtainable: No Constitutional: Reports: malaise, weakness HEENT: Reports: no symptoms Cardiovascular: Reports: no symptoms Respiratory: Reports: cough Gastrointestinal/Abdominal: Reports: difficulty swallowing, poor appetite Genitourinary: Reports: no symptoms Neurologic/Psychiatric: Reports: pre-existing deficit Endocrine: Reports: no symptoms Hematologic/Lymphatic: Reports: anemia Allergies: Coded Allergies: ERYTHROMYCIN BASE (Unverified Allergy, Intermediate, 07/14/19) Per patient not allergic to medications or food All Systems: reviewed and negative except above Subjective labs noted. decreased h/h. no fevers or chills. on iv abx. tolerating feeds sodium higher. ID noted. started on iv vanco yesterday. needs picc line Objective Last 24 Hour Vital Signs Date Time Temp Pulse Resp B/P (MAP) Pulse Ox O2 Delivery O2 Flow Rate FiO2 11/18/19 08:38 100 Nasal Cannula 3.0 32 11/18/19 08:38 101 18 100 Nasal Cannula 3.0 32 102 18 100 11/18/19 07:55 Nasal Cannula 3.0 11/18/19 05:43 151/94 11/18/19 04:00 98.0 102 20 151/94 (113) 99 12/31/19 03:27 92 18 99 Nasal Cannula 3.0 32 89 18 97 11/18/19 00:00 98.6 95 20 155/83 (107) 100 11/17/19 23:48 95 18 99 Nasal Cannula 3.0 32 92 18 96 11/17/19 23:12 96 159/98 11/17/19 23:12 159/98 11/17/19 21:00 Nasal Cannula 3.0 11/17/19 20:25 96 20 100 Nasal Cannula 3.0 32 94 18 97 11/17/19 20:25 97 Nasal Cannula 3.0 32 11/17/19 20:00 97.7 96 18 159/98 (118) 100 11/17/19 17:24 98 150/72 11/17/19 16:00 98.8 98 16 150/72 (98) 99 11/17/19 14:42 96 20 100 Nasal Cannula 3.0 32 92 18 97 11/17/19 14:20 158/93 11/17/19 12:00 98.8 93 19 158/93 (114) 99 11/17/19 10:53 90 18 100 Nasal Cannula 3.0 32 82 16 97 11/17/19 09:00 96 158/93 11/17/19 09:00 96 158/93 11/17/19 09:00 Nasal Cannula 3.0 Intake and Output 11/17/19 11/18/19 19:00 07:00 Intake Total 85 ml 435 ml Output Total 1200 ml 1100 ml Balance -1115 ml -665 ml Intake Free Water 50 ml 50 ml Tube Feeding 35 ml 385 ml Output Urine Total 1200 ml 1100 ml # Bowel Movements 4 4 Laboratory Tests 11/17/19 17:32: Urine Color Pale yellow, Urine Appearance Clear, Urine pH 7, Urine Specific [place] 1.010, Urine Protein 3+H, Urine Glucose (UA) Negative, Urine Ketones Negative, Urine Blood 3+H, Urine Nitrite Negative, Urine Bilirubin Negative, Urine Urobilinogen Normal, Urine Leukocyte Esterase Negative, Urine RBC 5-10H, Urine WBC 2-4, Urine Squamous Epithelial Cells Few, Urine Bacteria Few 11/18/19 05:32: White Blood Count 5.1, Red Blood Count 3.04L, Hemoglobin 9.0L, Hematocrit 26.6L , Mean Corpuscular Volume 88, Mean Corpuscular Hemoglobin 29.6, Mean Corpuscular Hemoglobin Concent 33.8, Red Cell Distribution Width 16.8H, Platelet Count 173, Mean Platelet Volume 7.7, Neutrophils (%) (Auto) 82.1H, Lymphocytes (%) (Auto) 12.3L, Monocytes (%) (Auto) 4.1, Eosinophils (%) (Auto) 1.0, Basophils (%) (Auto) 0.5, Sodium Level 152H, Potassium Level 4.0, Chloride Level 115H, Carbon Dioxide Level 28, Anion Gap 9, Blood Urea Nitrogen 38H, Creatinine 2.9H, Estimat Glomerular Filtration Rate , Glucose Level 104, Uric Acid 11.8H, Calcium Level 8.7 Height (Feet): 5 Height (Inches): 4.00 Weight (Pounds): 182 Objective General Appearance: WD/WN, alert Neck: supple Cardiovascular: regular rhythm Respiratory/Chest: chest wall non-tender, lungs clear, normal breath sounds, no respiratory distress, no accessory muscle use Abdomen: normal bowel sounds, non tender, soft, no organomegaly, no mass Edema: no edema noted Arm (L), no edema noted Arm (R), no edema noted Leg (L), no edema noted Leg (R), no edema noted Pedal (L), no edema noted Pedal (R), no edema noted 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
[2019-11-18] MEDS: Sodium Citrate 30ml GT SCH ×2 (09:21→18:42)
[2019-11-18] MEDS: Metoprolol Tartrate 50mg tab GT SCH ×2 (09:22→22:16)
--- NOTE | 2019-11-18 10:59 | Infectious Diseases Prog Note ---
Assessment/Plan Assessment/Plan antibiotics : zosyn A 1. pneumonia 2. renal failure improving 3. leucocytosis resolved 4. fever resolved 5. CVA 6. hypertension P 1. continue zosyn 1 more day 2. will follow up culture Subjective Constitutional: Denies: fever, chills Respiratory: Reports: productive cough; Denies: shortness of breath Gastrointestinal/Abdominal: Reports: diarrhea - mild; Denies: nausea, vomiting Musculoskeletal: Denies: pain Allergies: Coded Allergies: ERYTHROMYCIN BASE (Unverified Allergy, Intermediate, 07/14/19) Per patient not allergic to medications or food Objective Vital Signs Last 24 Hour Vital Signs Date Time Temp Pulse Resp B/P (MAP) Pulse Ox O2 Delivery O2 Flow Rate FiO2 11/18/19 09:22 108 160/81 11/18/19 09:22 108 160/81 11/18/19 08:38 100 Nasal Cannula 3.0 32 11/18/19 08:38 101 18 100 Nasal Cannula 3.0 32 102 18 100 11/18/19 08:00 98.9 108 20 160/81 (107) 99 11/18/19 07:55 Nasal Cannula 3.0 11/18/19 05:43 151/94 11/18/19 04:00 98.0 102 20 151/94 (113) 99 11/18/19 03:27 92 18 99 Nasal Cannula 3.0 32 89 18 97 11/18/19 00:00 98.6 95 20 155/83 (107) 100 11/17/19 23:48 95 18 99 Nasal Cannula 3.0 32 92 18 96 11/17/19 23:12 96 159/98 11/17/19 23:12 159/98 11/17/19 21:00 Nasal Cannula 3.0 11/17/19 20:25 96 20 100 Nasal Cannula 3.0 32 94 18 97 11/17/19 20:25 97 Nasal Cannula 3.0 32 11/17/19 20:00 97.7 96 18 159/98 (118) 100 11/17/19 17:24 98 150/72 11/17/19 16:00 98.8 98 16 150/72 (98) 99 11/17/19 14:42 96 20 100 Nasal Cannula 3.0 32 92 18 97 11/17/19 14:20 158/93 11/17/19 12:00 98.8 93 19 158/93 (114) 99 Height (Feet): 5 Height (Inches): 4.00 Weight (Pounds): 182 Respiratory/Chest: lungs clear Cardiovascular: normal rate, regular rhythm, no gallop/murmur Abdomen: soft, non tender Extremities: no edema Laboratory Tests Test 11/17/19 17:32 11/18/19 05:32 Urine Color Pale yellow Urine Appearance Clear Urine pH 7 (4.5-8.0) Urine Specific [place] 1.010 (1.005-1.035) Urine Protein 3+ (NEGATIVE) H Urine Glucose (UA) Negative (NEGATIVE) Urine Ketones Negative (NEGATIVE) Urine Blood 3+ (NEGATIVE) H Urine Nitrite Negative (NEGATIVE) Urine Bilirubin Negative (NEGATIVE) Urine Urobilinogen Normal MG/DL (0.0-1.0) Urine Leukocyte Esterase Negative (NEGATIVE) Urine RBC 5-10 /HPF (0 - 2) H Urine WBC 2-4 /HPF (0 - 2) Urine Squamous Epithelial Cells Few /LPF (NONE/OCC) Urine Bacteria Few /HPF (NONE) White Blood Count 5.1 K/UL (4.8-10.8) Red Blood Count 3.04 M/UL (4.20-5.40) L Hemoglobin 9.0 G/DL (12.0-16.0) L Hematocrit 26.6 % (37.0-47.0) L Mean Corpuscular Volume 88 FL (80-99) Mean Corpuscular Hemoglobin 29.6 PG (27.0-31.0) Mean Corpuscular Hemoglobin Concent 33.8 G/DL (32.0-36.0) Red Cell Distribution Width 16.8 % (11.6-14.8) H Platelet Count 173 K/UL (150-450) Mean Platelet Volume 7.7 FL (6.5-10.1) Neutrophils (%) (Auto) 82.1 % (45.0-75.0) H Lymphocytes (%) (Auto) 12.3 % (20.0-45.0) L Monocytes (%) (Auto) 4.1 % (1.0-10.0) Eosinophils (%) (Auto) 1.0 % (0.0-3.0) Basophils (%) (Auto) 0.5 % (0.0-2.0) Sodium Level 152 MMOL/L (136-145) H Potassium Level 4.0 MMOL/L (3.5-5.1) Chloride Level 115 MMOL/L (98-107) H Carbon Dioxide Level 28 MMOL/L (21-32) Anion Gap 9 mmol/L (5-15) Blood Urea Nitrogen 38 mg/dL (7-18) H Creatinine 2.9 MG/DL (0.55-1.30) H Estimat Glomerular Filtration Rate mL/min (>60) Glucose Level 104 MG/DL (74-106) Uric Acid 11.8 MG/DL (2.6-7.2) H Calcium Level 8.7 MG/DL (8.5-10.1) Current Medications Medications (Trade) Dose Ordered Sig/Jonathan Route PRN Reason Start Time Stop Time Status Last Admin Dose Admin Acetaminophen (Tylenol) 650 mg Q4H PRN GT Pain Scale (3-5) and fever 11/13/19 17:29 12/13/19 17:28 11/16/19 21:55 Albuterol/ Ipratropium (Albuterol/ Ipratropium) 3 ml Q4HRT HHN 11/16/19 15:00 11/21/19 14:59 11/18/19 08:37 Amlodipine Besylate (Norvasc) 5 mg BID GT 11/16/19 09:00 12/16/19 08:59 11/18/19 09:22 Chlorhexidine Gluconate (Meredith-Hex 2%) 1 applic DAILY@2000 TOPIC 11/17/19 20:00 12/17/19 19:59 Clonidine HCl (Catapres Tab) 0.1 mg Q4H PRN GT SBP > 160mmHg 11/15/19 08:15 12/14/19 14:14 11/15/19 13:08 Dextrose 1,000 ml @ 50 mls/hr Q20H IV 11/18/19 08:00 12/18/19 07:59 Diphenhydramine HCl (Benadryl) 25 mg Q6H PRN GT Itching 11/13/19 15:21 12/13/19 15:20 Epoetin Phu (Epoetin Phu-EPBX(NON ESRD)) 10,000 unit SUN-SUN-SUN SUBQ 11/17/19 21:00 12/17/19 20:59 11/17/19 23:13 Famotidine (Pepcid I.v.) 10 mg Q12HR IVP 11/13/19 21:00 12/13/19 08:59 11/17/19 09:43 Hydralazine HCl (Apresoline) 100 mg Q8HR GT 11/13/19 22:00 12/08/19 13:59 11/18/19 05:43 Levothyroxine Sodium (Synthroid) 150 mcg ACBREAKFAST GT 11/14/19 06:30 12/13/19 06:29 11/18/19 05:43 Loperamide HCl (Imodium) 2 mg Q12H PRN GT Diarrhea 11/13/19 15:21 12/13/19 15:20 11/17/19 09:46 Metoprolol Tartrate (Lopressor) 50 mg Q12HR GT 11/13/19 21:00 12/08/19 08:59 11/18/19 09:22 Piperacillin Sod/ Tazobactam Sod 3.375 gm/Dextrose 110 ml @ 27.5 mls/hr Q12H IVPB 11/17/19 00:00 11/24/19 00:00 11/16/19 23:41 Sodium Citrate (Bicitra) 30 ml BID GT 11/13/19 18:00 12/08/19 08:59 11/18/19 09:21 Jessica Reyes MD Nov 18, 2019 10:58
[2019-11-18 12:00] VITALS: BP 167/90
[2019-11-18] MEDS: Piperacillin/Tazobactam 3.375 GM in D5W 110 ML IVPB SCH ×2 (12:00→13:53)
[2019-11-18 16:00] VITALS: BP 152/92
[2019-11-18 20:00] VITALS: BP 157/91
[2019-11-18] MEDS: Dyna-Hex 2% Top Sol 2oz TOPIC SCH (20:00)
--- NOTE | 2019-11-18 20:26 | General Progress Note ---
Assessment/Plan Status: stable, progressing Assessment/Plan: Assessment - GIB - resolved, presumed diverticular - Anemia - Azotemia - free water deficit - OBS - anorexia, s/p GT placement - Cholelithiasis - cirrhosis Recommendations - continue TF - GT water flushes - monitor BM - PPI - follow CBC / BMP - transfuse PRN Subjective Allergies: Coded Allergies: ERYTHROMYCIN BASE (Unverified Allergy, Intermediate, 07/14/19) Per patient not allergic to medications or food Subjective tolerating TF d/w RN stools loose Objective Last 24 Hour Vital Signs Date Time Temp Pulse Resp B/P (MAP) Pulse Ox O2 Delivery O2 Flow Rate FiO2 11/18/19 18:41 100 152/92 11/18/19 16:00 98.6 100 20 152/92 (112) 98 11/18/19 15:34 89 18 99 Nasal Cannula 3.0 32 89 18 98 11/18/19 14:14 171/103 11/18/19 12:22 167/90 11/18/19 12:00 97.4 97 20 167/90 (115) 100 11/18/19 11:55 98 18 100 Nasal Cannula 3.0 32 95 18 98 11/18/19 09:22 108 160/81 11/18/19 09:22 108 160/81 11/18/19 08:38 100 Nasal Cannula 3.0 32 11/18/19 08:38 101 18 100 Nasal Cannula 3.0 32 102 18 100 11/18/19 08:00 98.9 108 20 160/81 (107) 99 11/18/19 07:55 Nasal Cannula 3.0 11/18/19 05:43 151/94 11/18/19 04:00 98.0 102 20 151/94 (113) 99 11/18/19 03:27 92 18 99 Nasal Cannula 3.0 32 89 18 97 11/18/19 00:00 98.6 95 20 155/83 (107) 100 11/17/19 23:48 95 18 99 Nasal Cannula 3.0 32 92 18 96 11/17/19 23:12 96 159/98 11/17/19 23:12 159/98 11/17/19 21:00 Nasal Cannula 3.0 11/17/19 20:25 96 20 100 Nasal Cannula 3.0 32 94 18 97 11/17/19 20:25 97 Nasal Cannula 3.0 32 Intake and Output 11/17/19 11/18/19 19:00 07:00 Intake Total 85 ml 435 ml Output Total 1200 ml 1100 ml Balance -1115 ml -665 ml Intake Free Water 50 ml 50 ml Tube Feeding 35 ml 385 ml Output Urine Total 1200 ml 1100 ml # Bowel Movements 4 4 Laboratory Tests 11/18/19 05:32: White Blood Count 5.1, Red Blood Count 3.04L, Hemoglobin 9.0L, Hematocrit 26.6L , Mean Corpuscular Volume 88, Mean Corpuscular Hemoglobin 29.6, Mean Corpuscular Hemoglobin Concent 33.8, Red Cell Distribution Width 16.8H, Platelet Count 173, Mean Platelet Volume 7.7, Neutrophils (%) (Auto) 82.1H, Lymphocytes (%) (Auto) 12.3L, Monocytes (%) (Auto) 4.1, Eosinophils (%) (Auto) 1.0, Basophils (%) (Auto) 0.5, Sodium Level 152H, Potassium Level 4.0, Chloride Level 115H, Carbon Dioxide Level 28, Anion Gap 9, Blood Urea Nitrogen 38H, Creatinine 2.9H, Estimat Glomerular Filtration Rate , Glucose Level 104, Uric Acid 11.8H, Calcium Level 8.7 Height (Feet): 5 Height (Inches): 4.00 Weight (Pounds): 182 Objective WDWN AA woman NCAT supple Chest coarase magaly RRR Abd soft (+) GT no edema Mina Rao MD Nov 18, 2019 20:26
[2019-11-19] VITALS (7 sets, daily range): BP systolic 143–173; BP diastolic 82–95
[2019-11-19] MEDS: Albuterol/Ipratropium 3ml neb HHN SCH ×7 (00:13→23:06)
[2019-11-19] MEDS: Piperacillin/Tazobactam 3.375 GM in D5W 110 ML IVPB SCH ×3 (00:33→23:48)
[2019-11-19] MEDS: HydrALAZINE 50mg tab GT SCH ×3 (06:12→21:43)
[2019-11-19 07:49] LABS: BASOPHILS % (AUTO) 0.2 % (0.0-2.0); EOSINOPHILS % (AUTO) 2.2 % (0.0-3.0); HEMATOCRIT 24.5 % (37.0-47.0); HEMOGLOBIN 8.2 G/DL (12.0-16.0); LYMPHOCYTES % (AUTO) 16.8 % (20.0-45.0); MEAN CORPUSCULAR VOLUME 89 FL (80-99); MONOCYTES % (AUTO) 4.7 % (1.0-10.0); PLATELET COUNT 151 K/UL (150-450); RED BLOOD COUNT 2.76 M/UL (4.20-5.40); RED CELL DISTRIBUTION WIDTH 16.6 % (11.6-14.8); WHITE BLOOD COUNT 3.8 K/UL (4.8-10.8)
[2019-11-19] MEDS: Metoprolol Tartrate 50mg tab GT SCH ×2 (08:16→21:42)
[2019-11-19 08:17] LABS: ALANINE AMINOTRANSFERASE 19 U/L (12-78); ALBUMIN/GLOBULIN RATIO 0.4 (1.0-2.7); ALKALINE PHOSPHATASE 48 U/L (46-116); ANION GAP 7 mmol/L (5-15); ASPARTATE AMINO TRANSFERASE 30 U/L (15-37); BILIRUBIN,TOTAL 0.4 MG/DL (0.2-1.0); BLOOD UREA NITROGEN 35 mg/dL (7-18); CALCIUM 8.8 MG/DL (8.5-10.1); CARBON DIOXIDE 32 MMOL/L (21-32); CHLORIDE 109 MMOL/L (98-107); CREATININE 2.8 MG/DL (0.55-1.30); PHOSPHORUS 4.1 MG/DL (2.5-4.9); SODIUM 148 MMOL/L (136-145)
[2019-11-19] MEDS: Sodium Citrate 30ml GT SCH ×2 (08:17→17:11)
--- NOTE | 2019-11-19 11:13 | Infectious Diseases Prog Note ---
Assessment/Plan Assessment/Plan antibiotics : zosyn A 1. pneumonia 2. renal failure improving 3. leucocytosis resolved 4. fever resolved 5. CVA 6. hypertension P 1. continue zosyn 1 more day 2. will follow up culture Subjective Constitutional: Denies: fever, chills Respiratory: Reports: shortness of breath - decreased, productive cough - decreased Gastrointestinal/Abdominal: Denies: nausea, vomiting, diarrhea Musculoskeletal: Denies: pain Allergies: Coded Allergies: ERYTHROMYCIN BASE (Unverified Allergy, Intermediate, 07/14/19) Per patient not allergic to medications or food Objective Vital Signs Last 24 Hour Vital Signs Date Time Temp Pulse Resp B/P (MAP) Pulse Ox O2 Delivery O2 Flow Rate FiO2 11/19/19 09:19 158/84 (108) 11/19/19 08:27 173/94 11/19/19 08:20 97.3 96 20 173/94 (120) 99 11/19/19 08:20 Nasal Cannula 2.0 11/19/19 08:17 87 144/82 11/19/19 08:16 87 144/82 11/19/19 07:53 87 16 100 Nasal Cannula 2.0 28 91 20 99 11/19/19 07:53 99 Nasal Cannula 2.0 28 11/19/19 06:12 144/82 11/19/19 04:00 98.7 92 20 144/82 (102) 99 11/19/19 03:42 87 16 100 Nasal Cannula 3.0 32 88 14 98 11/19/19 00:13 89 19 100 Nasal Cannula 3.0 32 91 14 99 11/19/19 00:00 98.4 94 18 143/83 (103) 99 11/18/19 22:17 157/91 11/18/19 22:16 90 157/91 11/18/19 21:00 Nasal Cannula 3.0 11/18/19 20:24 99 Nasal Cannula 3.0 32 11/18/19 20:24 90 19 99 Nasal Cannula 3.0 32 92 14 99 11/18/19 20:00 98.4 90 20 157/91 (113) 100 11/18/19 18:41 100 152/92 11/18/19 16:00 98.6 100 20 152/92 (112) 98 11/18/19 15:34 89 18 99 Nasal Cannula 3.0 32 89 18 98 11/18/19 14:14 171/103 11/18/19 12:22 167/90 11/18/19 12:00 97.4 97 20 167/90 (115) 100 11/18/19 11:55 98 18 100 Nasal Cannula 3.0 32 95 18 98 Height (Feet): 5 Height (Inches): 4.00 Weight (Pounds): 183 Respiratory/Chest: lungs clear Cardiovascular: normal rate, regular rhythm, no gallop/murmur Abdomen: soft, non tender, other - GT Extremities: no edema Laboratory Tests Test 11/19/19 06:20 White Blood Count 3.8 K/UL (4.8-10.8) L Red Blood Count 2.76 M/UL (4.20-5.40) L Hemoglobin 8.2 G/DL (12.0-16.0) L Hematocrit 24.5 % (37.0-47.0) L Mean Corpuscular Volume 89 FL (80-99) Mean Corpuscular Hemoglobin 29.6 PG (27.0-31.0) Mean Corpuscular Hemoglobin Concent 33.3 G/DL (32.0-36.0) Red Cell Distribution Width 16.6 % (11.6-14.8) H Platelet Count 151 K/UL (150-450) Mean Platelet Volume 7.1 FL (6.5-10.1) Neutrophils (%) (Auto) 76.0 % (45.0-75.0) H Lymphocytes (%) (Auto) 16.8 % (20.0-45.0) L Monocytes (%) (Auto) 4.7 % (1.0-10.0) Eosinophils (%) (Auto) 2.2 % (0.0-3.0) Basophils (%) (Auto) 0.2 % (0.0-2.0) Sodium Level 148 MMOL/L (136-145) H Potassium Level 4.0 MMOL/L (3.5-5.1) Chloride Level 109 MMOL/L (98-107) H Carbon Dioxide Level 32 MMOL/L (21-32) Anion Gap 7 mmol/L (5-15) Blood Urea Nitrogen 35 mg/dL (7-18) H Creatinine 2.8 MG/DL (0.55-1.30) H Estimat Glomerular Filtration Rate mL/min (>60) Glucose Level 108 MG/DL (74-106) H Calcium Level 8.8 MG/DL (8.5-10.1) Phosphorus Level 4.1 MG/DL (2.5-4.9) Magnesium Level 1.3 MG/DL (1.8-2.4) L Total Bilirubin 0.4 MG/DL (0.2-1.0) Aspartate Amino Transf (AST/SGOT) 30 U/L (15-37) Alanine Aminotransferase (ALT/SGPT) 19 U/L (12-78) Alkaline Phosphatase 48 U/L (46-116) Total Protein 6.8 G/DL (6.4-8.2) Albumin 2.0 G/DL (3.4-5.0) L Globulin 4.8 g/dL Albumin/Globulin Ratio 0.4 (1.0-2.7) L Current Medications Medications (Trade) Dose Ordered Sig/Jonathan Route PRN Reason Start Time Stop Time Status Last Admin Dose Admin Acetaminophen (Tylenol) 650 mg Q4H PRN GT Pain Scale (3-5) and fever 11/13/19 17:29 12/13/19 17:28 11/16/19 21:55 Albuterol/ Ipratropium (Albuterol/ Ipratropium) 3 ml Q4HRT HHN 11/16/19 15:00 11/21/19 14:59 11/19/19 07:51 Amlodipine Besylate (Norvasc) 5 mg BID GT 11/16/19 09:00 12/16/19 08:59 11/19/19 08:17 Chlorhexidine Gluconate (Meredith-Hex 2%) 1 applic DAILY@1999 TOPIC 11/17/19 20:00 12/17/19 19:59 Clonidine HCl (Catapres Tab) 0.1 mg Q4H PRN GT SBP > 160mmHg 11/15/19 08:15 12/14/19 14:14 11/19/19 08:27 Dextrose 1,000 ml @ 50 mls/hr Q20H IV 11/18/19 08:00 12/18/19 07:59 11/18/19 14:00 Diphenhydramine HCl (Benadryl) 25 mg Q6H PRN GT Itching 11/13/19 15:21 12/13/19 15:20 Epoetin Phu (Epoetin Phu-EPBX(NON ESRD)) 10,000 unit SUN-SUN-SUN SUBQ 11/17/19 21:00 12/17/19 20:59 11/17/19 23:13 Famotidine (Pepcid I.v.) 10 mg Q12HR IVP 11/13/19 21:00 12/13/19 08:59 11/19/19 08:17 Hydralazine HCl (Apresoline) 100 mg Q8HR GT 11/13/19 22:00 12/08/19 13:59 11/19/19 06:12 Levothyroxine Sodium (Synthroid) 150 mcg ACBREAKFAST GT 11/14/19 06:30 12/13/19 06:29 11/19/19 06:12 Loperamide HCl (Imodium) 2 mg Q12H PRN GT Diarrhea 11/13/19 15:21 12/13/19 15:20 11/17/19 09:46 Metoprolol Tartrate (Lopressor) 50 mg Q12HR GT 11/13/19 21:00 12/08/19 08:59 11/19/19 08:16 Piperacillin Sod/ Tazobactam Sod 3.375 gm/Dextrose 110 ml @ 27.5 mls/hr Q12H IVPB 11/17/19 00:00 11/24/19 00:00 11/19/19 00:33 Sodium Citrate (Bicitra) 30 ml BID GT 11/13/19 18:00 12/08/19 08:59 11/19/19 08:17 Jessica Reyes MD Nov 19, 2019 11:13
--- NOTE | 2019-11-19 11:16 | General Progress Note ---
Assessment/Plan Problem List: (1) Sepsis ICD Codes: A41.9 - Sepsis, unspecified organism SNOMED: 61720873 (2) Respiratory failure (3) Anemia in chronic kidney disease ICD Codes: N18.9 - Chronic kidney disease, unspecified; D63.1 - Anemia in chronic kidney disease SNOMED: 292928842 (4) Hypothyroidism ICD Codes: E03.9 - Hypothyroidism SNOMED: 74725878 (5) Lower GI bleeding ICD Codes: K92.2 - Gastrointestinal hemorrhage, unspecified SNOMED: 17085315 (6) Fever ICD Codes: R50.9 - Fever, unspecified SNOMED: 026367349 (7) Cirrhosis ICD Codes: K74.60 - Unspecified cirrhosis of liver SNOMED: 03996161 (8) GI bleed ICD Codes: K92.2 - Gastrointestinal hemorrhage, unspecified SNOMED: 61245235 Status: stable, progressing Assessment/Plan: o2 resp care follow up cultures monitor renal fxn renal follow up re: high na abx per id monitor for bleeding epo replace mg monitor na and h/h dc planning tomorrow if hgb stable and Na better. Subjective ROS Limited/Unobtainable: No Constitutional: Reports: malaise, weakness HEENT: Reports: no symptoms Cardiovascular: Reports: no symptoms Respiratory: Reports: cough, shortness of breath Gastrointestinal/Abdominal: Reports: difficulty swallowing Genitourinary: Reports: no symptoms Neurologic/Psychiatric: Reports: pre-existing deficit Endocrine: Reports: no symptoms Hematologic/Lymphatic: Reports: anemia Allergies: Coded Allergies: ERYTHROMYCIN BASE (Unverified Allergy, Intermediate, 07/14/19) Per patient not allergic to medications or food All Systems: reviewed and negative except above Subjective no events. h/h lower. sodium trending down. tolerating feeds. no pain Objective Last 24 Hour Vital Signs Date Time Temp Pulse Resp B/P (MAP) Pulse Ox O2 Delivery O2 Flow Rate FiO2 11/19/19 09:19 158/84 (108) 11/19/19 08:27 173/94 11/19/19 08:20 97.3 96 20 173/94 (120) 99 11/19/19 08:20 Nasal Cannula 2.0 11/19/19 08:17 87 144/82 11/19/19 08:16 87 144/82 11/19/19 07:53 87 16 100 Nasal Cannula 2.0 28 91 20 99 11/19/19 07:53 99 Nasal Cannula 2.0 28 11/19/19 06:12 144/82 11/19/19 04:00 98.7 92 20 144/82 (102) 99 11/19/19 03:42 87 16 100 Nasal Cannula 3.0 32 88 14 98 11/19/19 00:13 89 19 100 Nasal Cannula 3.0 32 91 14 99 11/19/19 00:00 98.4 94 18 143/83 (103) 99 11/18/19 22:17 157/91 11/18/19 22:16 90 157/91 11/18/19 21:00 Nasal Cannula 3.0 11/18/19 20:24 99 Nasal Cannula 3.0 32 11/18/19 20:24 90 19 99 Nasal Cannula 3.0 32 92 14 99 11/18/19 20:00 98.4 90 20 157/91 (113) 100 11/18/19 18:41 100 152/92 11/18/19 16:00 98.6 100 20 152/92 (112) 98 11/18/19 15:34 89 18 99 Nasal Cannula 3.0 32 89 18 98 11/18/19 14:14 171/103 11/18/19 12:22 167/90 11/18/19 12:00 97.4 97 20 167/90 (115) 100 11/18/19 11:55 98 18 100 Nasal Cannula 3.0 32 95 18 98 Intake and Output 11/18/19 11/19/19 19:00 07:00 Intake Total 535 ml Output Total 900 ml 800 ml Balance -900 ml -265 ml IV Total 500 ml Tube Feeding 35 ml Output Urine Total 900 ml 800 ml # Voids 3 # Bowel Movements 5 1 Laboratory Tests 11/19/19 06:20: White Blood Count 3.8L, Red Blood Count 2.76L, Hemoglobin 8.2L, Hematocrit 24.5L , Mean Corpuscular Volume 89, Mean Corpuscular Hemoglobin 29.6, Mean Corpuscular Hemoglobin Concent 33.3, Red Cell Distribution Width 16.6H, Platelet Count 151, Mean Platelet Volume 7.1, Neutrophils (%) (Auto) 76.0H, Lymphocytes (%) (Auto) 16.8L, Monocytes (%) (Auto) 4.7, Eosinophils (%) (Auto) 2.2, Basophils (%) (Auto) 0.2, Sodium Level 148H, Potassium Level 4.0, Chloride Level 109H, Carbon Dioxide Level 32, Anion Gap 7, Blood Urea Nitrogen 35H, Creatinine 2.8H, Estimat Glomerular Filtration Rate , Glucose Level 108H, Calcium Level 8.8, Phosphorus Level 4.1, Magnesium Level 1.3L, Total Bilirubin 0.4, Aspartate Amino Transf (AST/SGOT) 30, Alanine Aminotransferase (ALT/SGPT) 19, Alkaline Phosphatase 48, Total Protein 6.8, Albumin 2.0L, Globulin 4.8, Albumin/Globulin Ratio 0.4L Height (Feet): 5 Height (Inches): 4.00 Weight (Pounds): 183 Objective General Appearance: WD/WN, alert Neck: supple Cardiovascular: regular rhythm Respiratory/Chest: chest wall non-tender, lungs clear, normal breath sounds, no respiratory distress, no accessory muscle use Abdomen: normal bowel sounds, non tender, soft, no organomegaly, no mass Edema: no edema noted Arm (L), no edema noted Arm (R), no edema noted Leg (L), no edema noted Leg (R), no edema noted Pedal (L), no edema noted Pedal (R), no edema noted 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
--- NOTE | 2019-11-19 12:59 | Nephrology Progress Note ---
Assessment/Plan Problem List: (1) Fever (2) CKD (chronic kidney disease) stage 5, GFR less than 15 ml/min (3) Cirrhosis (4) GI bleed (5) Anemia (6) Hyperuricemia (7) Acute renal failure (ARF) (8) Lung infiltrate (9) Anemia in chronic kidney disease Plan s/p febrile, culture and antibiotics ordered, ID eval, check bladder residual, now quintana, cxr reviewed as bun/cr rising, high uric suggests dehydration,still hyperuricemia and diarrhea--now less, hypernatremic, check repeat cxr, hhn, kcl , not clearly chf, infiltrates may be pneumonia, poor iv access to get picc done , lab trend now better Subjective Constitutional: Reports: weakness HEENT: Reports: no symptoms Genitourinary: Reports: incontinence Neurologic/Psychiatric: Reports: pre-existing deficit Subjective less diarrhea Objective Objective Last 24 Hour Vital Signs Date Time Temp Pulse Resp B/P (MAP) Pulse Ox O2 Delivery O2 Flow Rate FiO2 11/19/19 12:00 98.5 93 20 153/88 (109) 99 11/19/19 11:29 88 20 99 Nasal Cannula 2.0 28 84 20 98 11/19/19 09:19 158/84 (108) 11/19/19 08:27 173/94 11/19/19 08:20 97.3 96 20 173/94 (120) 99 11/19/19 08:20 Nasal Cannula 2.0 11/19/19 08:17 87 144/82 11/19/19 08:16 87 144/82 11/19/19 07:53 87 20 100 Nasal Cannula 2.0 28 91 20 99 11/19/19 07:53 99 Nasal Cannula 2.0 28 11/19/19 06:12 144/82 11/19/19 04:00 98.7 92 20 144/82 (102) 99 11/19/19 03:42 87 16 100 Nasal Cannula 3.0 32 88 14 98 11/19/19 00:13 89 19 100 Nasal Cannula 3.0 32 91 14 99 11/19/19 00:00 98.4 94 18 143/83 (103) 99 11/18/19 22:17 157/91 11/18/19 22:16 90 157/91 11/18/19 21:00 Nasal Cannula 3.0 11/18/19 20:24 99 Nasal Cannula 3.0 32 11/18/19 20:24 90 19 99 Nasal Cannula 3.0 32 92 14 99 11/18/19 20:00 98.4 90 20 157/91 (113) 100 11/18/19 18:41 100 152/92 11/18/19 16:00 98.6 100 20 152/92 (112) 98 11/18/19 15:34 89 18 99 Nasal Cannula 3.0 32 89 18 98 11/18/19 14:14 171/103 Intake and Output 11/18/19 11/19/19 19:00 07:00 Intake Total 535 ml Output Total 900 ml 800 ml Balance -900 ml -265 ml IV Total 500 ml Tube Feeding 35 ml Output Urine Total 900 ml 800 ml # Voids 3 # Bowel Movements 5 1 Laboratory Tests 11/19/19 06:20: White Blood Count 3.8L, Red Blood Count 2.76L, Hemoglobin 8.2L, Hematocrit 24.5L , Mean Corpuscular Volume 89, Mean Corpuscular Hemoglobin 29.6, Mean Corpuscular Hemoglobin Concent 33.3, Red Cell Distribution Width 16.6H, Platelet Count 151, Mean Platelet Volume 7.1, Neutrophils (%) (Auto) 76.0H, Lymphocytes (%) (Auto) 16.8L, Monocytes (%) (Auto) 4.7, Eosinophils (%) (Auto) 2.2, Basophils (%) (Auto) 0.2, Sodium Level 148H, Potassium Level 4.0, Chloride Level 109H, Carbon Dioxide Level 32, Anion Gap 7, Blood Urea Nitrogen 35H, Creatinine 2.8H, Estimat Glomerular Filtration Rate , Glucose Level 108H, Calcium Level 8.8, Phosphorus Level 4.1, Magnesium Level 1.3L, Total Bilirubin 0.4, Aspartate Amino Transf (AST/SGOT) 30, Alanine Aminotransferase (ALT/SGPT) 19, Alkaline Phosphatase 48, Total Protein 6.8, Albumin 2.0L, Globulin 4.8, Albumin/Globulin Ratio 0.4L Height (Feet): 5 Height (Inches): 4.00 Weight (Pounds): 183 General Appearance: alert, confused EENT: normal ENT inspection Neck: supple Cardiovascular: normal rate Respiratory/Chest: lungs clear Abdomen: non tender Extremities: trace edema Neurologic: motor weakness Jose Lemus MD Nov 19, 2019 12:59
--- NOTE | 2019-11-19 13:18 | General Progress Note ---
Assessment/Plan Status: stable, progressing Assessment/Plan: Assessment - GIB - resolved, presumed diverticular - Anemia - Azotemia - free water deficit - OBS - anorexia, s/p GT placement - Cholelithiasis - cirrhosis Recommendations - continue TF - GT water flushes - monitor BM - PPI - follow CBC / BMP - transfuse PRN Subjective Allergies: Coded Allergies: ERYTHROMYCIN BASE (Unverified Allergy, Intermediate, 07/14/19) Per patient not allergic to medications or food Subjective tolerating TF no abdominal complaints Objective Last 24 Hour Vital Signs Date Time Temp Pulse Resp B/P (MAP) Pulse Ox O2 Delivery O2 Flow Rate FiO2 11/19/19 13:04 153/88 11/19/19 12:00 98.5 93 20 153/88 (109) 99 11/19/19 11:29 88 20 99 Nasal Cannula 2.0 28 84 20 98 11/19/19 09:19 158/84 (108) 11/19/19 08:27 173/94 11/19/19 08:20 97.3 96 20 173/94 (120) 99 11/19/19 08:20 Nasal Cannula 2.0 11/19/19 08:17 87 144/82 11/19/19 08:16 87 144/82 11/19/19 07:53 87 20 100 Nasal Cannula 2.0 28 91 20 99 11/19/19 07:53 99 Nasal Cannula 2.0 28 11/19/19 06:12 144/82 11/19/19 04:00 98.7 92 20 144/82 (102) 99 11/19/19 03:42 87 16 100 Nasal Cannula 3.0 32 88 14 98 11/19/19 00:13 89 19 100 Nasal Cannula 3.0 32 91 14 99 11/19/19 00:00 98.4 94 18 143/83 (103) 99 11/18/19 22:17 157/91 11/18/19 22:16 90 157/91 11/18/19 21:00 Nasal Cannula 3.0 11/18/19 20:24 99 Nasal Cannula 3.0 32 11/18/19 20:24 90 19 99 Nasal Cannula 3.0 32 92 14 99 11/18/19 20:00 98.4 90 20 157/91 (113) 100 11/18/19 18:41 100 152/92 11/18/19 16:00 98.6 100 20 152/92 (112) 98 11/18/19 15:34 89 18 99 Nasal Cannula 3.0 32 89 18 98 11/18/19 14:14 171/103 Intake and Output 11/18/19 11/19/19 19:00 07:00 Intake Total 535 ml Output Total 900 ml 800 ml Balance -900 ml -265 ml IV Total 500 ml Tube Feeding 35 ml Output Urine Total 900 ml 800 ml # Voids 3 # Bowel Movements 5 1 Laboratory Tests 11/19/19 06:20: White Blood Count 3.8L, Red Blood Count 2.76L, Hemoglobin 8.2L, Hematocrit 24.5L , Mean Corpuscular Volume 89, Mean Corpuscular Hemoglobin 29.6, Mean Corpuscular Hemoglobin Concent 33.3, Red Cell Distribution Width 16.6H, Platelet Count 151, Mean Platelet Volume 7.1, Neutrophils (%) (Auto) 76.0H, Lymphocytes (%) (Auto) 16.8L, Monocytes (%) (Auto) 4.7, Eosinophils (%) (Auto) 2.2, Basophils (%) (Auto) 0.2, Sodium Level 148H, Potassium Level 4.0, Chloride Level 109H, Carbon Dioxide Level 32, Anion Gap 7, Blood Urea Nitrogen 35H, Creatinine 2.8H, Estimat Glomerular Filtration Rate , Glucose Level 108H, Calcium Level 8.8, Phosphorus Level 4.1, Magnesium Level 1.3L, Total Bilirubin 0.4, Aspartate Amino Transf (AST/SGOT) 30, Alanine Aminotransferase (ALT/SGPT) 19, Alkaline Phosphatase 48, Total Protein 6.8, Albumin 2.0L, Globulin 4.8, Albumin/Globulin Ratio 0.4L Height (Feet): 5 Height (Inches): 4.00 Weight (Pounds): 183 Objective WDWN AA woman NCAT supple Chest coarase magaly RRR Abd soft (+) GT no edema Mina Rao MD Nov 19, 2019 13:18
[2019-11-19] MEDS ORDERED: Sterile Water Irrig 1000ml IRRIG ONE (15:26)
[2019-11-19] MEDS: Dyna-Hex 2% Top Sol 2oz TOPIC SCH (19:27)
[2019-11-19] MEDS: Epoetin Alfa-EPBX (NON ESRD)10,000 unit/ml vial SUBQ SCH ×2 (21:43→21:53)
[2019-11-20] VITALS (7 sets, daily range): BP systolic 149–183; BP diastolic 82–103
[2019-11-20] MEDS: Albuterol/Ipratropium 3ml neb HHN SCH ×6 (02:35→23:25)
[2019-11-20] MEDS: HydrALAZINE 50mg tab GT SCH ×3 (05:04→21:40)
[2019-11-20 06:11] LABS: HEMATOCRIT 23.4 % (37.0-47.0); HEMOGLOBIN 7.7 G/DL (12.0-16.0); MEAN CORPUSCULAR VOLUME 90 FL (80-99); PLATELET COUNT 152 K/UL (150-450); RED CELL DISTRIBUTION WIDTH 16.5 % (11.6-14.8); WHITE BLOOD COUNT 4.4 K/UL (4.8-10.8)
[2019-11-20 07:28] LABS: ALANINE AMINOTRANSFERASE 18 U/L (12-78); ALBUMIN 1.9 G/DL (3.4-5.0); ALBUMIN/GLOBULIN RATIO 0.4 (1.0-2.7); ALKALINE PHOSPHATASE 53 U/L (46-116); ANION GAP 7 mmol/L (5-15); ASPARTATE AMINO TRANSFERASE 35 U/L (15-37); BILIRUBIN,TOTAL 0.3 MG/DL (0.2-1.0); BLOOD UREA NITROGEN 34 mg/dL (7-18); CALCIUM 8.5 MG/DL (8.5-10.1); CARBON DIOXIDE 31 MMOL/L (21-32); CHLORIDE 105 MMOL/L (98-107); CREATININE 2.8 MG/DL (0.55-1.30); POTASSIUM 3.9 MMOL/L (3.5-5.1); SODIUM 143 MMOL/L (136-145)
[2019-11-20 07:44] LABS: PHOSPHORUS 3.7 MG/DL (2.5-4.9)
[2019-11-20] MEDS: Sodium Citrate 30ml GT SCH ×2 (10:29→18:27)
[2019-11-20] MEDS: Metoprolol Tartrate 50mg tab GT SCH ×2 (10:29→20:03)
--- NOTE | 2019-11-20 11:27 | Diagnostic Imaging Report ---
Indication: Cough Technique: One view of the chest Comparison: 11/17/2019 Findings: The heart is enlarged. There is bilateral interstitial edema. Findings are unchanged Impression: Bilateral interstitial edema, unchanged since prior study 11/17/2019
[2019-11-20] MEDS ORDERED: RETACRIT10000 UNIT SUBQ (11:29)
[2019-11-20] MEDS ORDERED: SYNTHROID150 MCG GT (11:29)
--- NOTE | 2019-11-20 12:29 | Infectious Diseases Prog Note ---
Assessment/Plan Assessment/Plan A 1. pneumonia treated 2. renal failure improving 3. Anemia 4. Diverticular GI bleeding 5. CVA 6. hypertension 7. 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 Discontinue Zosyn 2. will follow up cultures Subjective ROS Limited/Unobtainable: Yes Constitutional: Reports: no symptoms Respiratory: Reports: no symptoms Gastrointestinal/Abdominal: Reports: no symptoms Genitourinary: Reports: no symptoms Allergies: Coded Allergies: ERYTHROMYCIN BASE (Unverified Allergy, Intermediate, 07/14/19) Per patient not allergic to medications or food Objective Vital Signs Last 24 Hour Vital Signs Date Time Temp Pulse Resp B/P (MAP) Pulse Ox O2 Delivery O2 Flow Rate FiO2 11/20/19 10:35 91 19 100 Nasal Cannula 2.0 28 89 21 97 11/20/19 10:30 91 149/84 11/20/19 10:29 91 149/84 11/20/19 09:00 Nasal Cannula 2.0 11/20/19 08:00 98.9 91 19 149/84 (105) 99 11/20/19 07:05 92 18 100 Nasal Cannula 2.0 28 90 18 98 11/20/19 06:54 98 Nasal Cannula 2.0 28 11/20/19 05:04 152/82 11/20/19 04:00 98.9 92 24 152/82 (105) 97 11/20/19 02:37 94 20 100 Nasal Cannula 2.0 28 92 20 99 11/20/19 00:00 98.0 89 24 153/88 (109) 98 11/19/19 23:06 82 20 100 Nasal Cannula 2.0 28 87 20 100 11/19/19 21:43 168/95 11/19/19 21:42 88 168/95 11/19/19 21:00 Nasal Cannula 2.0 11/19/19 20:00 97.0 88 24 170/95 (120) 97 11/19/19 19:27 98 Nasal Cannula 2.0 28 11/19/19 19:26 84 22 100 Nasal Cannula 2.0 28 80 22 98 11/19/19 17:10 91 153/72 11/19/19 16:42 160/89 11/19/19 16:06 98.7 95 20 160/89 (112) 99 11/19/19 15:27 99 20 100 Nasal Cannula 2.0 28 99 20 99 11/19/19 13:04 153/88 Height (Feet): 5 Height (Inches): 4.00 Weight (Pounds): 183 General Appearance: no acute distress HEENT: mucous membranes moist Respiratory/Chest: rhonchi - bilaterally Cardiovascular: normal rate Abdomen: soft, non tender, distended, other - GT feeding Extremities: no edema Neurologic/Psychiatric: alert, responsive Laboratory Tests Test 11/20/19 05:18 White Blood Count 4.4 K/UL (4.8-10.8) L Red Blood Count 2.60 M/UL (4.20-5.40) L Hemoglobin 7.7 G/DL (12.0-16.0) L Hematocrit 23.4 % (37.0-47.0) L Mean Corpuscular Volume 90 FL (80-99) Mean Corpuscular Hemoglobin 29.6 PG (27.0-31.0) Mean Corpuscular Hemoglobin Concent 32.9 G/DL (32.0-36.0) Red Cell Distribution Width 16.5 % (11.6-14.8) H Platelet Count 152 K/UL (150-450) Mean Platelet Volume 7.8 FL (6.5-10.1) Neutrophils (%) (Auto) % (45.0-75.0) Lymphocytes (%) (Auto) % (20.0-45.0) Monocytes (%) (Auto) % (1.0-10.0) Eosinophils (%) (Auto) % (0.0-3.0) Basophils (%) (Auto) % (0.0-2.0) Differential Total Cells Counted 100 Neutrophils % (Manual) 74 % (45-75) Lymphocytes % (Manual) 22 % (20-45) Monocytes % (Manual) 3 % (1-10) Eosinophils % (Manual) 1 % (0-3) Basophils % (Manual) 0 % (0-2) Band Neutrophils 0 % (0-8) Platelet Estimate Adequate Platelet Morphology Normal Hypochromasia 1+ Anisocytosis 1+ Sodium Level 143 MMOL/L (136-145) Potassium Level 3.9 MMOL/L (3.5-5.1) Chloride Level 105 MMOL/L (98-107) Carbon Dioxide Level 31 MMOL/L (21-32) Anion Gap 7 mmol/L (5-15) Blood Urea Nitrogen 34 mg/dL (7-18) H Creatinine 2.8 MG/DL (0.55-1.30) H Estimat Glomerular Filtration Rate mL/min (>60) Glucose Level 107 MG/DL (74-106) H Uric Acid 9.7 MG/DL (2.6-7.2) H Calcium Level 8.5 MG/DL (8.5-10.1) Phosphorus Level 3.7 MG/DL (2.5-4.9) Magnesium Level 1.4 MG/DL (1.8-2.4) L Total Bilirubin 0.3 MG/DL (0.2-1.0) Aspartate Amino Transf (AST/SGOT) 35 U/L (15-37) Alanine Aminotransferase (ALT/SGPT) 18 U/L (12-78) Alkaline Phosphatase 53 U/L (46-116) Total Protein 6.4 G/DL (6.4-8.2) Albumin 1.9 G/DL (3.4-5.0) L Globulin 4.5 g/dL Albumin/Globulin Ratio 0.4 (1.0-2.7) L Current Medications Medications (Trade) Dose Ordered Sig/Jonathan Route PRN Reason Start Time Stop Time Status Last Admin Dose Admin Acetaminophen (Tylenol) 650 mg Q4H PRN GT Pain Scale (3-5) and fever 11/13/19 17:29 12/13/19 17:28 11/16/19 21:55 Albuterol/ Ipratropium (Albuterol/ Ipratropium) 3 ml Q4HRT HHN 11/16/19 15:00 11/21/19 14:59 11/20/19 10:25 Amlodipine Besylate (Norvasc) 5 mg BID GT 11/16/19 09:00 12/16/19 08:59 11/20/19 10:30 Chlorhexidine Gluconate (Meredith-Hex 2%) 1 applic DAILY@2000 TOPIC 11/17/19 20:00 12/17/19 19:59 Clonidine HCl (Catapres Tab) 0.1 mg Q4H PRN GT SBP > 160mmHg 11/15/19 08:15 12/14/19 14:14 11/19/19 16:42 Dextrose 1,000 ml @ 50 mls/hr Q20H IV 11/18/19 08:00 12/18/19 07:59 11/19/19 23:48 Diphenhydramine HCl (Benadryl) 25 mg Q6H PRN GT Itching 11/13/19 15:21 12/13/19 15:20 Epoetin Phu (Epoetin Phu-EPBX(NON ESRD)) 10,000 unit SUN- SUBQ 11/17/19 21:00 12/17/19 20:59 11/19/19 21:53 Famotidine (Pepcid I.v.) 10 mg Q12HR IVP 11/13/19 21:00 12/13/19 08:59 11/20/19 10:30 Hydralazine HCl (Apresoline) 100 mg Q8HR GT 11/13/19 22:00 12/08/19 13:59 11/20/19 05:04 Levothyroxine Sodium (Synthroid) 150 mcg ACBREAKFAST GT 11/14/19 06:30 12/13/19 06:29 11/20/19 05:04 Loperamide HCl (Imodium) 2 mg Q12H PRN GT Diarrhea 11/13/19 15:21 12/13/19 15:20 11/17/19 09:46 Metoprolol Tartrate (Lopressor) 50 mg Q12HR GT 11/13/19 21:00 12/08/19 08:59 11/20/19 10:29 Piperacillin Sod/ Tazobactam Sod 3.375 gm/Dextrose 110 ml @ 27.5 mls/hr Q12H IVPB 11/17/19 00:00 11/24/19 00:00 11/19/19 23:48 Sodium Citrate (Bicitra) 30 ml BID GT 11/13/19 18:00 12/08/19 08:59 11/20/19 10:29 Ruperto Freedman MD Nov 20, 2019 12:29
--- NOTE | 2019-11-20 14:06 | Nephrology Progress Note ---
Assessment/Plan Problem List: (1) Fever (2) CKD (chronic kidney disease) stage 5, GFR less than 15 ml/min (3) Cirrhosis (4) GI bleed (5) Anemia (6) Hyperuricemia (7) Acute renal failure (ARF) (8) Lung infiltrate (9) Anemia in chronic kidney disease Plan s/p febrile, culture and antibiotics ordered, ID eval, check bladder residual, now quintana, cxr reviewed as bun/cr rising, high uric suggests dehydration,still hyperuricemia and diarrhea--now less, hypernatremic, check repeat cxr, hhn, kcl , not clearly chf, infiltrates may be pneumonia, poor iv access, lab trend now better stop iv fluid,dc quintana Subjective Constitutional: Reports: weakness HEENT: Reports: no symptoms Genitourinary: Reports: incontinence Neurologic/Psychiatric: Reports: pre-existing deficit Subjective less diarrhea Objective Objective Last 24 Hour Vital Signs Date Time Temp Pulse Resp B/P (MAP) Pulse Ox O2 Delivery O2 Flow Rate FiO2 11/20/19 10:35 91 19 100 Nasal Cannula 2.0 89 21 97 11/20/19 10:30 91 149/84 11/20/19 10:29 91 149/84 11/20/19 09:00 Nasal Cannula 2.0 11/20/19 08:00 98.9 91 19 149/84 (105) 99 11/20/19 07:05 92 18 100 Nasal Cannula 2.0 90 18 98 11/20/19 06:54 98 Nasal Cannula 2.0 28 11/20/19 05:04 152/82 11/20/19 04:00 98.9 92 24 152/82 (105) 97 11/20/19 02:37 94 20 100 Nasal Cannula 2.0 92 20 99 11/20/19 00:00 98.0 89 24 153/88 (109) 98 11/19/19 23:06 82 20 100 Nasal Cannula 2.0 28 87 20 100 11/19/19 21:43 168/95 11/19/19 21:42 88 168/95 11/19/19 21:00 Nasal Cannula 2.0 11/19/19 20:00 97.0 88 24 170/95 (120) 97 11/19/19 19:27 98 Nasal Cannula 2.0 28 11/19/19 19:26 84 22 100 Nasal Cannula 2.0 28 80 22 98 11/19/19 17:10 91 153/72 11/19/19 16:42 160/89 11/19/19 16:06 98.7 95 20 160/89 (112) 99 11/19/19 15:27 99 20 100 Nasal Cannula 2.0 28 99 20 99 Intake and Output 11/19/19 11/20/19 18:59 06:59 Intake Total 1680.0 ml 1160.0 ml Output Total 850 ml 700 ml Balance 830.0 ml 460.0 ml Intake Free Water 650 ml 500 ml IV Total 610.0 ml 310.0 ml Tube Feeding 420 ml 350 ml Output Urine Total 850 ml 700 ml # Voids 4 # Bowel Movements 3 2 Laboratory Tests 11/20/19 05:18: White Blood Count 4.4L, Red Blood Count 2.60L, Hemoglobin 7.7L, Hematocrit 23.4L , Mean Corpuscular Volume 90, Mean Corpuscular Hemoglobin 29.6, Mean Corpuscular Hemoglobin Concent 32.9, Red Cell Distribution Width 16.5H, Platelet Count 152, Mean Platelet Volume 7.8, Neutrophils (%) (Auto) , Lymphocytes (%) (Auto) , Monocytes (%) (Auto) , Eosinophils (%) (Auto) , Basophils (%) (Auto) , Differential Total Cells Counted 100, Neutrophils % ( Manual) 74, Lymphocytes % (Manual) 22, Monocytes % (Manual) 3, Eosinophils % ( Manual) 1, Basophils % (Manual) 0, Band Neutrophils 0, Platelet Estimate Adequate, Platelet Morphology Normal, Hypochromasia 1+, Anisocytosis 1+, Sodium Level 143, Potassium Level 3.9, Chloride Level 105, Carbon Dioxide Level 31, Anion Gap 7, Blood Urea Nitrogen 34H, Creatinine 2.8H, Estimat Glomerular Filtration Rate , Glucose Level 107H, Uric Acid 9.7H, Calcium Level 8.5, Phosphorus Level 3.7, Magnesium Level 1.4L, Total Bilirubin 0.3, Aspartate Amino Transf (AST/SGOT) 35, Alanine Aminotransferase (ALT/SGPT) 18, Alkaline Phosphatase 53, Total Protein 6.4, Albumin 1.9L, Globulin 4.5, Albumin/Globulin Ratio 0.4L Height (Feet): 5 Height (Inches): 4.00 Weight (Pounds): 183 General Appearance: no apparent distress EENT: normal ENT inspection Neck: normal alignment Cardiovascular: regular rhythm Respiratory/Chest: rhonchi - bilaterally Abdomen: non tender, soft Extremities: trace edema Neurologic: student support advisor II-XII grossly normal Jose Lemus MD Nov 20, 2019 14:06
[2019-11-20] MEDS: Dyna-Hex 2% Top Sol 2oz TOPIC SCH (20:00)
--- NOTE | 2019-11-20 20:54 | General Progress Note ---
Assessment/Plan Status: stable, progressing Assessment/Plan: Assessment - GIB - resolved, presumed diverticular - Anemia, s/p transfusion - Azotemia - free water deficit - OBS - anorexia, s/p GT placement - Cholelithiasis - cirrhosis Recommendations - continue TF - GT water flushes - monitor BM - PPI - follow CBC / BMP - transfuse PRN Subjective Allergies: Coded Allergies: ERYTHROMYCIN BASE (Unverified Allergy, Intermediate, 07/14/19) Per patient not allergic to medications or food Subjective tolerating TF no abdominal complaints Objective Last 24 Hour Vital Signs Date Time Temp Pulse Resp B/P (MAP) Pulse Ox O2 Delivery O2 Flow Rate FiO2 11/20/19 20:13 95 20 100 Nasal Cannula 2.0 28 11/20/19 20:03 95 20 96 Nasal Cannula 2.0 28 11/20/19 20:03 96 Nasal Cannula 2.0 28 11/20/19 20:03 88 168/93 11/20/19 19:50 168/93 11/20/19 18:27 90 165/95 11/20/19 16:00 98.8 90 19 165/95 (118) 97 11/20/19 15:21 153/88 11/20/19 12:00 98.1 89 24 153/88 (109) 98 11/20/19 10:35 91 19 100 Nasal Cannula 2.0 89 21 97 11/20/19 10:30 91 149/84 11/20/19 10:29 91 149/84 11/20/19 09:00 Nasal Cannula 2.0 11/20/19 08:00 98.9 91 19 149/84 (105) 99 11/20/19 07:05 92 18 100 Nasal Cannula 2.0 28 90 18 98 11/20/19 06:54 98 Nasal Cannula 2.0 28 11/20/19 05:04 152/82 11/20/19 04:00 98.9 92 24 152/82 (105) 97 11/20/19 02:37 94 20 100 Nasal Cannula 2.0 28 92 20 99 11/20/19 00:00 98.0 89 24 153/88 (109) 98 11/19/19 23:06 82 20 100 Nasal Cannula 2.0 28 87 20 100 11/19/19 21:43 168/95 11/19/19 21:42 88 168/95 11/19/19 21:00 Nasal Cannula 2.0 Intake and Output 11/19/19 11/20/19 19:00 07:00 Intake Total 1680.0 ml 1110.0 ml Output Total 850 ml 700 ml Balance 830.0 ml 410.0 ml Intake Free Water 650 ml 500 ml IV Total 610.0 ml 260.0 ml Tube Feeding 420 ml 350 ml Output Urine Total 850 ml 700 ml # Voids 4 # Bowel Movements 3 2 Laboratory Tests 11/20/19 05:18: White Blood Count 4.4L, Red Blood Count 2.60L, Hemoglobin 7.7L, Hematocrit 23.4L , Mean Corpuscular Volume 90, Mean Corpuscular Hemoglobin 29.6, Mean Corpuscular Hemoglobin Concent 32.9, Red Cell Distribution Width 16.5H, Platelet Count 152, Mean Platelet Volume 7.8, Neutrophils (%) (Auto) , Lymphocytes (%) (Auto) , Monocytes (%) (Auto) , Eosinophils (%) (Auto) , Basophils (%) (Auto) , Differential Total Cells Counted 100, Neutrophils % ( Manual) 74, Lymphocytes % (Manual) 22, Monocytes % (Manual) 3, Eosinophils % ( Manual) 1, Basophils % (Manual) 0, Band Neutrophils 0, Platelet Estimate Adequate, Platelet Morphology Normal, Hypochromasia 1+, Anisocytosis 1+, Sodium Level 143, Potassium Level 3.9, Chloride Level 105, Carbon Dioxide Level 31, Anion Gap 7, Blood Urea Nitrogen 34H, Creatinine 2.8H, Estimat Glomerular Filtration Rate , Glucose Level 107H, Uric Acid 9.7H, Calcium Level 8.5, Phosphorus Level 3.7, Magnesium Level 1.4L, Total Bilirubin 0.3, Aspartate Amino Transf (AST/SGOT) 35, Alanine Aminotransferase (ALT/SGPT) 18, Alkaline Phosphatase 53, Total Protein 6.4, Albumin 1.9L, Globulin 4.5, Albumin/Globulin Ratio 0.4L Height (Feet): 5 Height (Inches): 4.00 Weight (Pounds): 183 Objective WDWN AA woman NCAT supple Chest coarase magaly RRR Abd soft (+) GT no edema Mina Rao MD Nov 20, 2019 20:54
--- NOTE | 2019-11-20 22:00 | Discharge Summary ---
DATE OF ADMISSION: 11/08/2019 CHIEF COMPLAINT: 1. Gastrointestinal bleed. 2. History of sepsis. 3. Chronic kidney disease. 4. Hypertension. 5. Dementia. 6. Stroke. DISCHARGE DIAGNOSES: 1. Gastrointestinal bleed. 2. History of sepsis. 3. Chronic kidney disease. 4. Hypertension. 5. Dementia. 6. Stroke. 7. Pneumonia. HOSPITAL COURSE: The patient is a pleasant female admitted with complaints of rectal bleeding. She was transfused. She underwent endoscopy that showed no active source of bleeding. Her hospital course complicated by fever. She was later diagnosed with pneumonia. She received broad-spectrum IV antibiotics. On discharge, she was stable. She will be discharged back to the shelter facility. She will have close monitoring of hemoglobin. Please see discharge medication list for discharge medications. DIET: Cardiac diet. ACTIVITY: Ad-jackelin. FOLLOW UP: The patient to follow up in one to two days at the shelter facility. Chema Hendricks M.D. DR: Bruno JOB#: [id number] CC:
[2019-11-21] VITALS: BP 164/102
[2019-11-21] MEDS: Albuterol/Ipratropium 3ml neb HHN SCH ×3 (02:56→10:49)
[2019-11-21 04:30] VITALS: BP 166/91
[2019-11-21] MEDS: HydrALAZINE 50mg tab GT SCH ×2 (05:02→13:20)
[2019-11-21 08:00] VITALS: BP 154/56
[2019-11-21] MEDS: Metoprolol Tartrate 50mg tab GT SCH (08:43)
[2019-11-21] MEDS: Sodium Citrate 30ml GT SCH (08:43)
[2019-11-21 11:49] VITALS: BP 147/58
[2019-11-21 13:48] VITALS: BP 153/58
== END 2019-11-21 13:47 | DRG 377 ==
LOC: EDBD 01:50 → EMR 02:05 → 2E 02:24 → EDBEDREQ 02:40 → 2E 03:21 → 4E 11-13 15:17
DX: K57.31 Diverticulosis of large intestine without perforation or abscess with bleeding (principal); J18.9 Pneumonia, unspecified organism; I13.2 Hypertensive heart and chronic kidney disease with heart failure and with stage 5 chronic kidney disease, or end stage renal disease; N18.5 Chronic kidney disease, stage 5; I50.32 Chronic diastolic (congestive) heart failure; N17.9 Acute kidney failure, unspecified; E87.0 Hyperosmolality and hypernatremia; D63.1 Anemia in chronic kidney disease; Z74.01 Bed confinement status; Z93.1 Gastrostomy status; E03.9 Hypothyroidism, unspecified; I69.319 Unspecified symptoms and signs involving cognitive functions following cerebral infarction; F01.50 Vascular dementia, unspecified severity, without behavioral disturbance, psychotic disturbance, mood disturbance, and anxiety; R62.7 Adult failure to thrive; Z68.31 Body mass index [BMI] 31.0-31.9, adult; J44.9 Chronic obstructive pulmonary disease, unspecified; R32 Unspecified urinary incontinence; K74.60 Unspecified cirrhosis of liver; R63.0 Anorexia
CPT/HCPCS: 36415; 36600; 71045; 80048; 80053; 81001; 81003; 82550; 82570; 82803; 83690; 83735; 84100; 84300; 84443; 84550; 85007; 85025; 85610; 85730; 86850; 86900; 86901; 86920; 87040; 87081; 87086; 87324; 93005; 94003; 94150; 94640; 94664; 99285; J7620; J8499

== ENCOUNTER 2020-08-17 11:57 | Inpatient (IN) | payer MEDICARE, OTHER ==
[~2020-08-17] VITALS: Ht 162.6 cm; Wt 68.9 kg
[~2020-08-17 11:57] MED LIST changes: +ACETAMINOPHEN325 M1 GT; +ACETAMINOPHEN80 M1 ORAL; +ASPIRIN EC81 MG GT; +ASPIRIN-LOW81 MG ORAL; +CATAPRES0.2 MG GT; +CHLORHEXIDINE118 M1 TP; +DIPHENHYDRAMINE25 M1 GT; +DIPHENHYDRAMINE25 M1 ORAL; +DOCUSATE SODIU100 MG GT; +DOCUSATE SODIU250 MG GT; +LOPERAMIDE2 MG GT; +LOPERAMIDE2 MG PO; +METOCLOPRAMIDE H5 M1 ORAL; +RETACRIT10000 UNIT SUBQ; +SENSIPAR30 MG GT; +SYNTHROID125 MCG GT; +SYNTHROID150 MCG GT; +TEMAZEPAM15 MG GT; +ZOSYN 3.373.375 GM/1 IVPB
--- NOTE | 2020-08-17 11:59 | NUR ---
Note hiralone in EDM - 08/17/20 at 1200 by DAVID ED Nurse Note: pt wheeled into ED d/t weakness from home. pt has dialysis T TH S, did not go to appointment today. per daughter pt has been weak since sunday
[2020-08-17 12:10] VITALS: BP 110/41
--- NOTE | 2020-08-17 12:10 | NUR ---
ED Nurse Note: Patient from home and walked in due to generalized weakness x 2 days. Patient unable to her dialysis session today. (On dialysis //S) Noted AV fistula on RUE. patient is AAO x4, follows commands with SOB at rest. Sats 981-100 % in room air.
--- NOTE | 2020-08-17 12:24 | NUR ---
ED Nurse Note: Called lab and spoke to benji for blood draw.
--- NOTE | 2020-08-17 12:30 | NUR ---
ED Nurse Note: Covid19 swab sent.
--- NOTE | 2020-08-17 13:06 | Emergency Room Report ---
History of Present Illness General Chief Complaint: Generalized Weakness Source: Patient Present Illness HPI The patient presents with decreased level of consciousness. She was brought by her family. Apparently she missed dialysis today. They elected to come here because she has several physicians and has been recently admitted. The patient is lethargic and unable to answer questions. Apparently she recently had a gastrostomy tube removed. On July 20 her stool tested positive for blood. She was last discharged from the hospital on July 28 with these discharge diagnoses: 1. Anemia, possible GI bleed. 2. End-stage renal disease. 3. History of hypertension. 4. Anemia. 5. History of pericardial effusion. 6. History of stroke. Allergies: 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-19 Testing performed PEST CONTROL WORKER: No Patient History Limited by: medical condition Past Medical History: see triage record, old chart reviewed Past Surgical History: hysterectomy, other - Dialysis fistula right upper arm Social History Narrative With family Reviewed Nursing Documentation: PMH: Agreed; PSxH: Agreed Nursing Documentation-PMH Past Medical History: No History, Except For Hx Cardiac Problems: Yes - gerd, anxiety Hx Hypertension: Yes - hypothyroidism Hx Asthma: No Hx COPD: Yes - COPD,CHF Hx Cancer: No Hx Gastrointestinal Problems: Yes - G-tube,liver cirrhosis Hx Dialysis: Yes - CKD, AV shunt to Right arm Hx Neurological Problems: Yes Hx Cerebrovascular Accident: Yes Hx Dementia: Yes Hx Parkinson's Disease: Yes Hx Seizures: Yes Hx Speech Problem: Yes Review of Systems All Other Systems: limited Physical Exam Vital Signs Date Time Temp Pulse Resp B/P (MAP) Pulse Ox O2 Delivery O2 Flow Rate FiO2 08/17/20 12:00 98.2 78 16 110/41 (64) 100 Room Air Sp02 EP Interpretation: reviewed, normal General Appearance: lethargic, other, Chronically Ill Eyes: bilateral eye PERRL, bilateral eye conjunctivae pale ENT: moist mucus membranes Neck: full range of motion, supple, no meningismus Respiratory: lungs clear, normal breath sounds, no respiratory distress Cardiovascular #1: regular rate, rhythm Cardiovascular #2: 2+ radial (R) Gastrointestinal: non tender, soft, decreased bowel sounds Genitourinary: no CVA tenderness Musculoskeletal: back normal, decreased range of motion Neurologic: oriented - X1, sensory intact, motor weakness - Diffuse Psychiatric: depressed affect Skin: pallor Procedures Critical Care Time Critical Care Time Total Critical Care Time: 60 min bedside evaluation and treatment excludes procedures (EKG). Reason for critical care: Altered mentation, profound anemia, elevated lactic acid Possible complications: hypotension, hypertension, VA, shock, arrhythmias, metabolic acidosis, end organ damage, respiratory failure. Interventions: Fluid bolus, antibiotics, blood draw by ER MD femoral, blood transfusion Course: Patient presented with altered mental status with history of end-stage renal disease. Evaluation reveals profound anemia. Blood ordered and attempt to arrange for acute dialysis undertaken. Elevated lactic acid, source is unclear. Bolus administered as transient hypotension. Blood pressure improved with fluids. Empiric antibiotics begun. ER MD attempting to arrange for emergent dialysis. Apparently emergent dialysis unable to be performed. Blood transfusion started in emergency department. Blood pressure improved and patient's mentation dramatically improved also. Consultations: nursing staff, EMS, discussion with dialysis MD and admitting physician, respiratory therapy Performed by: Dr. Gibson Tolerated well condition = serious Medical Decision Making Diagnostic Impression: Primary Impression: Profound anemia Qualified Codes: D64.9 - Anemia, unspecified Additional Impressions: ESRD (end stage renal disease) on dialysis Transient hypotension Elevated lactic acid level History of GI bleed ER Course Patient presents with altered level of consciousness with a history of renal failure and dialysis. Differential includes hypoglycemia, acute myocardial infarction, electrolyte imbalance, encephalopathy, occult infection amongst others. Patient evaluated with EKG, chest x-ray and labs. Due to the global nature of her lethargy CT scan is not indicated at this time. Patient placed on a ekg monitor tech. Patient is complex as she has comorbidities and is unable to discuss her symptoms at this time. EKG without injury. Chest x-ray cardiomegaly with minimal reversal of flow but no obvious congestive heart failure or infiltrates. ABG = venous - at same time Sat on monitor = 98%. Discussed with respiratory therapy. Bloods drawn by ERMD. 1305 Patient somewhat clinically improved. Responding and answering questions. She is complaining about lower back pain. Called with critical anemia. Transfusion ordered. Called with elevated lactic acid. Bolus ordered. Consideration of antibiotic administration. As the patient has renal failure lactic acidosis may be met multifactorial. Contact Dr. Lemus for dialysis and transfusions. 1400 Transiently hypotensive. Bolus given (readjust cuff). Lactate elevated but this is felt to be multifactorial. No obvious source of infection. Will cover with antibiotics. Laboratory Tests Test 08/17/20 12:23 08/17/20 13:00 08/17/20 14:40 Arterial Blood pH 7.422 (7.350-7.450) Arterial Blood Partial Pressure CO2 40.2 mmHg (35.0-45.0) Arterial Blood Partial Pressure O2 34.8 mmHg (75.0-100.0) Arterial Blood HCO3 25.6 mmol/L (22.0-26.0) Arterial Blood Oxygen Saturation 58.5 % (95-100) *L Arterial Blood Base Excess 1.0 (-2-2) [place] Test Positive White Blood Count 8.2 K/UL (4.8-10.8) Red Blood Count 1.11 M/UL (4.20-5.40) L Hemoglobin 3.7 G/DL (12.0-16.0) *L Hematocrit 11.2 % (37.0-47.0) L Mean Corpuscular Volume 101 FL (80-99) H Mean Corpuscular Hemoglobin 33.3 PG (27.0-31.0) H Mean Corpuscular Hemoglobin Concent 33.1 G/DL (32.0-36.0) Red Cell Distribution Width 16.6 % (11.6-14.8) H Platelet Count 191 K/UL (150-450) Mean Platelet Volume 6.4 FL (6.5-10.1) L Neutrophils (%) (Auto) % (45.0-75.0) Lymphocytes (%) (Auto) % (20.0-45.0) Monocytes (%) (Auto) % (1.0-10.0) Eosinophils (%) (Auto) % (0.0-3.0) Basophils (%) (Auto) % (0.0-2.0) Differential Total Cells Counted 100 Neutrophils % (Manual) 71 % (45-75) Lymphocytes % (Manual) 20 % (20-45) Monocytes % (Manual) 8 % (1-10) Eosinophils % (Manual) 1 % (0-3) Basophils % (Manual) 0 % (0-2) Band Neutrophils 0 % (0-8) Nucleated Red Blood Cells 2 /100 WBC Platelet Estimate Adequate Platelet Morphology Normal Polychromasia 1+ Hypochromasia 2+ Anisocytosis 1+ Macrocytosis 1+ Prothrombin Time 11.1 SEC (9.30-11.50) Prothrombin Time INR 1.0 (0.9-1.1) Activated Partial Thromboplast Time 18 SEC (23-33) L D-Dimer 0.96 mg/L FEU (0.00-0.49) H Sodium Level 139 MMOL/L (136-145) Potassium Level 4.7 MMOL/L (3.5-5.1) Chloride Level 102 MMOL/L (98-107) Carbon Dioxide Level 26 MMOL/L (21-32) Anion Gap 11 mmol/L (5-15) Blood Urea Nitrogen 110 mg/dL (7-18) H Creatinine 6.8 MG/DL (0.55-1.30) H Estimated Glomerular Filtration Rate 7.2 mL/min (>60) Glucose Level 115 MG/DL (74-106) H Lactic Acid Level 4.10 mmol/L (0.4-2.0) H 1.80 mmol/L (0.66-2.22) Calcium Level 9.7 MG/DL (8.5-10.1) Magnesium Level 4.9 MG/DL (1.8-2.4) *H Ferritin 1340 NG/ML (8-388) H Total Bilirubin 0.2 MG/DL (0.2-1.0) Aspartate Amino Transferase (AST) 34 U/L (15-37) Alanine Aminotransferase (ALT) 23 U/L (12-78) Alkaline Phosphatase 42 U/L (46-116) L Ammonia 21 umol/L (11-32) Lactate Dehydrogenase 155 U/L (81-234) Total Creatine Kinase 39 U/L (26-308) Creatine Kinase MB 0.5 NG/ML (0.0-3.6) Creatine Kinase MB Relative Index 1.2 Troponin I 0.026 ng/mL (0.000-0.056) C-Reactive Protein, Quantitative < 0.4 mg/dL (0.00-0.90) Pro-B-Type Natriuretic Peptide 67950 pg/mL (0-125) H Total Protein 4.9 G/DL (6.4-8.2) L Albumin 2.1 G/DL (3.4-5.0) L Globulin 2.8 g/dL Albumin/Globulin Ratio 0.7 (1.0-2.7) L Lipase 223 U/L (73-393) Serum Alcohol < 3 mg/dL Microbiology Date/Time Source Procedure Growth Status 08/17/20 12:30 Nasopharynx SARS-CoV-2 RdRp Gene Assay - Final Complete EKG Diagnostic Results Rate: normal Rhythm: NSR ST Segments: no acute changes Rhythm Strip Diag. Results EP Interpretation: yes Rhythm: NSR, no PVC's, no ectopy Chest X-Ray Diagnostic Results Chest X-Ray Diagnostic Results : Chest X-Ray Ordered: Yes # of Views/Limited/Complete: 1 View Indication: Other EP Interpretation: Yes Interpretation: no effusion, no pneumothorax, other - slight inc de anda Last Vital Signs Date Time Temp Pulse Resp B/P (MAP) Pulse Ox O2 Delivery O2 Flow Rate FiO2 08/17/20 20:54 76 150/49 08/17/20 19:25 22 100 Room Air 21 24 90 08/17/20 17:11 97.5 Status: improved Disposition: ADMITTED INPATIENT Condition: Serious Lance Gibson MD Aug 17, 2020 13:06
--- NOTE | 2020-08-17 13:15 | NUR ---
ED Nurse Note: Collected blood specimen then sent.
[2020-08-17 13:28] LABS: HEMATOCRIT 11.2 % (37.0-47.0); MEAN CORPUSCULAR VOLUME 101 FL (80-99); PLATELET COUNT 191 K/UL (150-450); RED BLOOD COUNT 1.11 M/UL (4.20-5.40); RED CELL DISTRIBUTION WIDTH 16.6 % (11.6-14.8); WHITE BLOOD COUNT 8.2 K/UL (4.8-10.8)
[2020-08-17 13:41] LABS: HEMOGLOBIN 3.7 G/DL (12.0-16.0)
[2020-08-17 13:43] LABS: AMMONIA 21 umol/L (11-32)
[2020-08-17 13:46] LABS: ANION GAP 11 mmol/L (5-15); BLOOD UREA NITROGEN 110 mg/dL (7-18); CALCIUM 9.7 MG/DL (8.5-10.1); CARBON DIOXIDE 26 MMOL/L (21-32); CHLORIDE 102 MMOL/L (98-107); CREATININE 6.8 MG/DL (0.55-1.30); POTASSIUM 4.7 MMOL/L (3.5-5.1); SODIUM 139 MMOL/L (136-145)
[2020-08-17 14:02] LABS: ALANINE AMINOTRANSFERASE 23 U/L (12-78); ALBUMIN 2.1 G/DL (3.4-5.0); ALBUMIN/GLOBULIN RATIO 0.7 (1.0-2.7); ALKALINE PHOSPHATASE 42 U/L (46-116); ASPARTATE AMINO TRANSFERASE 34 U/L (15-37); BILIRUBIN,TOTAL 0.2 MG/DL (0.2-1.0); CKMB 0.5 NG/ML (0.0-3.6); CREATINE KINASE 39 U/L (26-308); FERRITIN 1340 NG/ML (8-388); LACTATE DEHYDROGENASE 155 U/L (81-234)
[2020-08-17 14:15] VITALS: BP 92/73
--- NOTE | 2020-08-17 14:43 | NUR ---
ED Nurse Note: Repeat lactic acid sent.
--- NOTE | 2020-08-17 15:09 | NUR ---
ED Nurse Note: patient resting on bed and respirations are non labored. Sats 97-98% in room air. Patient states she is unable to produce urine.
--- NOTE | 2020-08-17 15:23 | Diagnostic Imaging Report ---
Indication: Reason For Exam: ALOC Technique: Single AP view of the chest. Comparison: Chest radiograph dated 07/17/2020 Findings: The cardiomediastinal silhouette is unchanged in appearance, with persistent cardiomegaly. Redemonstration of coarsely calcified mediastinal lymph nodes. Unchanged linear right midlung opacity, likely chronic atelectasis or scarring. No new airspace consolidation. No acute osseous abnormality. IMPRESSION: No radiographic evidence of acute cardiopulmonary process..
[2020-08-17 16:00] VITALS: BP 95/62
[2020-08-17] MEDS ORDERED: Cefepime HCl 1 GM in D5W 55 ML IVPB ONE (16:00)
[2020-08-17] MEDS ORDERED: Vancomycin 1 GM in D5W 275 ML IVPB ONE (16:00)
[2020-08-17 16:30] VITALS: BP 94/42
[2020-08-17] MEDS ORDERED: HYDROcodone/Acetamin 5/325 tab ORAL ONE (16:30)
--- NOTE | 2020-08-17 17:02 | NUR ---
ED Nurse Note: Report given to Seth NUNEZ of telemetry unit.
--- NOTE | 2020-08-17 17:05 | NUR ---
NURSE NOTES:Handoff received from Shima NUNEZ, received report on behalf of Mariah NUNEZ. passed report on to Mariah.
--- NOTE | 2020-08-17 17:05 | NUR ---
NURSE NOTES: 1 Unit of PRBC finished, patient tolerated well, vitals stable. Addendum: 08/17/20 at 1921 by Seth Moffett RN PRBC finished at 1900 and not at 1705 as described above. Entered wrong time in the first nurse note.
--- NOTE | 2020-08-17 17:10 | NUR ---
NURSE NOTES:Patient arrived to the floor with PRBC'S running, Vitals are as follows 02 sat 96% on room air, BP 106/34, Temp 97.7, HR 72, RR of 24. Patient complaining of left arm pain, blood running in left A/C but arm is swollen and looks infiltrated, switched PRBC infusion to left wrist. Placed patient on heart monitor, took patient weight using bed scale, oriented patient to room and call light. Bed in the low and locked position with call light within reach. endorsed plan of care to primary nurse Mariah.
[2020-08-17] MEDS ORDERED: Aspirin Baby 81mg GT SCH (18:00)
--- NOTE | 2020-08-17 18:20 | NUR ---
NURSE NOTES: Dr Lemus gave order for a total of 3 bags of PRBC's to be administered to the patient.
[2020-08-17] MEDS: Albuterol ud Inhalation HHN SCH ×2 (19:09→22:41)
--- NOTE | 2020-08-17 19:35 | NUR ---
NURSE NOTES: RECEIVED REPORT FROM ENRIQUE TATE. PATIENT AAOX2, VERBALLY RESPONSIVE, AND ABLE TO MAKE NEEDS KNOWN. NO COMPLAINTS OF PAIN OR DISCOMFORT AT THIS TIME. BREATHING IS EVEN AND UNLABORED ON ROOM AIR, NO S/SX OF DISTRESS NOTED. NOTED TO HAVE IV SITES ON LEFT WRIST AND LAC. RAEGAN AV SHUNT ASYMPTOMATIC, NO BLEEDING NOTED AT SITE. FALL PRECAUTIONS IN PLACE. BED LOCKED AND IN LOWEST POSITION, SIDERAILS UP X 3. CALL LIGHT WITHIN REACH, WILL CONTINUE TO MONITOR PER POC. Addendum: 08/18/20 at 0107 by Aleta Persaud RN IV SITE LAC INFILTRATED, SO CONSEQUENTLY WAS REMOVED
--- NOTE | 2020-08-17 19:41 | NUR ---
NURSE HAND-OFF REPORT: Important Events on Shift:Patient admitted after missing dialysis today. Patient Status: Diet: Renal Pending Orders: Patient requires 2 more units of PRBC's Pending Results/Labs: Pending MD notification: Latest Vital Signs: Temperature 97.5 , Pulse 73 , B/P 108 /51 , Respiratory Rate 15 , O2 SAT 100 , Room Air, O2 Flow Rate . Vital Sign Comment: EKG Rhythm: Sinus Rhythm Sinus Rhythm Rhythm change?: No MD Notified?: - MD Response: Latest Virgen Fall Score: 35 Fall Risk: Medium Risk Safety Measures: Call light Within Reach, Bed Alarm Zone 2, Side Rails Side Rails x2, Bed position Low and Locked. Fall Precautions: Door Sign Patient Fall Education Report given to Joann River RN. Endorsed plan of care, including 2 more units of PRBC's to be administered.
--- NOTE | 2020-08-17 19:45 | Consultation ---
DATE OF CONSULTATION: 08/17/2020 NEPHROLOGY CONSULTATION CONSULTING PHYSICIAN: Jose Lemus MD. REFERRING PHYSICIAN: Chema Hendricks MD. CHIEF COMPLAINT AND REASON FOR HOSPITALIZATION: Patient admitted with end-stage renal disease, anemia, GI bleeding. HISTORY OF PRESENT ILLNESS: Patient comes with severe anemia and GI bleeding. She has had recurrent GI bleeding and recently had hospitalizations from the above and had GI studies. She has history of end-stage renal disease, severe hypertension, hypercalcemia of uncertain etiology with no known malignancy and a borderline PTH. The patient is not complaining of abdominal pain. She had some 1 episode of emesis today. She had a gastrostomy tube that was recently removed. She has been eating well. In the past, she was found to have some diverticular disease of the colon. There is a history of CVA, dementia. PAST SURGERIES: Total hip arthroplasty, multiple endoscopies, gastrostomy, cholecystotomy. HOME MEDICATIONS: She cannot give a list. On a prior admission, she was on hydralazine, [place], diphenhydramine, levothyroxine, metoprolol, Protonix, clonidine, Sensipar, DSS, temazepam, Prevacid, aspirin, and received analogs of Epogen in the outpatient dialysis unit. HABITS: She smoked many years ago and quit. No alcohol or drugs. SYSTEM REVIEW: HEAD, EYES, EARS, NOSE, AND THROAT: Vision and hearing is good. ENDOCRINE: History of hypothyroidism, on replacement. No diabetes. Borderline PTH. PULMONARY: History of recurrent pulmonary infections and some bronchospasm. CARDIAC: History of hypertension, on multiple medications. No chest pain. GASTROINTESTINAL: See above. GENITOURINARY: She is incontinent of urine. NEUROLOGIC: History of multiple CVAs with dysarthria and cognitive dysfunction. PHYSICAL EXAMINATION: GENERAL: The patient is alert lady, lying in bed, in no acute distress. VITAL SIGNS: Temperature 97.5, pulse 73, respirations 15, and blood pressure 108/51. HEAD, EYES, EARS, NOSE, AND THROAT: Sclerae are nonicteric. Ocular motions intact in all directions. Oral mucosa moist. NECK: No adenopathy. LUNGS: Few faint rhonchi. HEART: Regular rhythm. No murmur. ABDOMEN: Soft without organomegaly or tenderness. EXTREMITIES: No edema, cyanosis, or clubbing. There is an AV graft in the right arm. NEUROLOGIC: She is alert, dysarthric. Ocular motions intact in all directions. Mouth symmetric. She moves all extremities. PERTINENT LABORATORY DATA: White count 8.2, hemoglobin 3.7, platelets 191. PH 7.42, pCO2 40, pO2 was 34.8. Sodium 139, potassium 4.7, chloride 102, CO2 26, BUN 110, creatinine 6.8, glucose 115. Lactic acid 4.1, 1.8. Magnesium 4.9, elevated. Troponin 0.026. BNP 77371. Chest x-ray was done showing no acute disease. IMPRESSION: 1. GI bleed. 2. End-stage renal disease. 3. Bronchospasm and asthmatic bronchitis. 4. Chronic diastolic congestive heart failure. 5. Hypertensive heart disease. 6. History of multiple CVAs. PLAN: The patient will be placed on PPI. Transfused. Dialysis. Watch her closely for all of her comorbidities. Hold blood pressure medicines if her pressure is not elevated. Jose Lemus M.D. DR: KRISHNA JOB#: [id number] CC:
[2020-08-17 20:00] VITALS: BP 150/49
[2020-08-17] MEDS: Metoprolol Tartrate 50mg tab GT SCH (20:54)
[2020-08-17] MEDS: Pantoprazole Inj IVP SCH (20:54)
--- NOTE | 2020-08-17 21:45 | NUR ---
NURSE NOTES: TRANSFUSION OF 1 UNIT PRBCS STARTED. V/S ARE FOLLOWS: BP 110/40 (LEFT ARM), TEMP 98.6F (ORAL), HR 72, RR 20, SAO2 98% ON 2LPM VIA NASAL CANNULA.
[2020-08-17] MEDS ORDERED: Sorbitol Solution UD 30ml ORAL SCH (22:00)
--- NOTE | 2020-08-17 22:00 | NUR ---
NURSE NOTES: V/S 15 MINUTES AFTER START OF BLOOD TRANSFUSION FOLLOWS: BP 117/77 (LEFT ARM), TEMP 99.4F (ORAL), HR 70, RR 19, SAO2 96% ON 2LPM VIA NASAL CANNULA. NO COMPLAINTS OF PAIN OR DISCOMFORT. PATIENT DENIES ANY SHORTNESS OF BREATH OR DIFFICULTY BREATHING. WILL CONTINUE TO MONITOR.
--- NOTE | 2020-08-17 22:00 | NUR ---
NURSE NOTES: PER MONICA BERGER, PATIENT'S DAUGHTER, OKAY TO GIVE PNA AND FLU VACCINES AT TIME OF DISCHARGE.
--- NOTE | 2020-08-17 22:34 | NUR ---
NURSE NOTES: RECEIVED TELEPHONE CONSENT FROM MONICA BERGER (PATIENT'S DAUGHTER) FOR HD TOMORROW, 08/18.
[2020-08-18] VITALS: BP 121/44
--- NOTE | 2020-08-18 00:10 | NUR ---
NURSE NOTES: BLOOD TRANSFUSION COMPLETED. V/S POST TRANSFUSION ARE FOLLOWS: BP 122/43 (LEFT ARM), TEMP 98.1 (ORAL), HR 74, RR 18, SAO2 99% ON 2LPM VIA NASAL CANNULA. NO COMPLAINTS OF PAIN OR DISCOMFORT. PATIENT DENIES ANY SHORTNESS OF BREATH OR DIFFICULTY BREATHING.
--- NOTE | 2020-08-18 00:45 | Consultation ---
DATE OF CONSULTATION: 08/17/2020 CARDIOLOGY CONSULTATION CONSULTING PHYSICIAN: Lance Rivas MD REFERRING PHYSICIAN: Chema Hendricks MD REASON FOR CONSULTATION: Elevated natriuretic peptide assay in the setting of severe anemia. HISTORY: This is a 74-year-old female, known to me from prior cardiovascular care. She has end-stage renal disease and is on hemodialysis. She also has had history of recurring GI bleeding in the past. Today, she was noted on dialysis session to have a hemoglobin level of just over 3 grams, prompting her to be sent to the emergency room. The patient has had some vomiting. She recently had a G-tube that was removed. She has had numerous GI workups that have been negative for any malignancies. She denies any chest pain or shortness of breath. PAST MEDICAL HISTORY: Hypertension, hypertensive heart disease, end-stage renal disease, diverticulosis, hypothyroidism, history of dysphagia status post G-tube and now removed last month, anemia of chronic kidney disease, status post AV fistula, osteoarthritis, osteoporosis, degenerative disk disease, cerebrovascular disease with history of CVA, gastroesophageal reflux disease, COPD, history of cholecystitis and cholecystostomy tube, diastolic congestive heart failure, and history of pericardial effusion. ALLERGIES: Erythromycin. FAMILY HISTORY: Noncontributory. SOCIAL HISTORY: Negative for smoking, alcohol, or substance abuse. REVIEW OF SYSTEMS: No fevers or chills. No cough. No sputum production. No history of COVID-19 exposure. She is on thyroid replacement. There is no history of diabetes. She has had a prior stroke with minimal residual. She has a history of pericardial effusion associated with severe hypothyroidism. She had an echocardiogram in the last 6 months with no significant pericardial disease, normal ejection fraction, and concentric hypertrophy. 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 PHYSICAL EXAMINATION: VITAL SIGNS: Blood pressure 108/51, heart rate 73, respiratory rate 15, and afebrile. HEENT: Pallor of the conjunctivae. Anicteric sclerae. Oropharynx is clear. NECK: Supple. Jugular venous pressure difficult to assess. LUNGS: Diminished breath sounds. No wheezing or rales. CARDIAC: Regular rhythm and rate. Normal S1, S2 with a fourth heart sound and a 1/6 systolic murmur at the base. ABDOMEN: Soft, nontender. EXTREMITIES: No edema. Right upper extremity AV graft has a palpable bruit. NEUROLOGIC: She has mild dysarthria. SKIN: Old G-tube site is healed. LABORATORY DATA: Labs notable for white count 8.2, hemoglobin 3.7, platelet 191,000. Sodium 139, potassium 4.7, bicarb 26, BUN 110, creatinine 6.8, glucose 115. Lactic acid 4.1. Pro-natriuretic peptide 13,600. Troponin 0.026. IMPRESSION: Severe anemia, possible GI bleeding, end-stage renal disease, acute on chronic diastolic congestive heart failure, acute myocardial ischemia, lactic acidosis, hypertensive heart disease, history of cerebrovascular accident, history of dysphagia and G-tube recently removed. CONDITION: Serious. PROGNOSIS: Guarded. PLAN: Proton-pump inhibitor. Urgent packed red blood cell transfusion until hemoglobin above 7. Nasal oxygen. Monitor volume status. Hemodialysis with ultrafiltration for volume management. Hold antihypertensives and administer on an as-needed basis until hemodynamically compensated. Beta-boris should be added primarily in view of risk of ischemia. Lance Rivas M.D. DR: Ольга JOB#: [id number] CC:
--- NOTE | 2020-08-18 00:55 | NUR ---
NURSE NOTES: TRANSFUSION OF SECOND PRBCS INITIATED. VITAL SIGNS ARE FOLLOWS: BP 132/51 (LEFT ARM), TEMP 98.1F (ORAL), HR 71, RR 17, SAO2 98% ON 2LPM VIA NC.
--- NOTE | 2020-08-18 01:10 | NUR ---
NURSE NOTES: VITAL SIGNS 15 MINUTES AFTER START OF INFUSION ARE FOLLOWS: BP 123/47 (LEFT ARM), TEMP 97.9 (ORAL), HR 70, RR 18, SAO2 99% ON 2LPM VIA NASAL CANNULA. PATIENT IS ASLEEP, APPEARS CALM AND COMFORTABLE WITH NO S/SX OF PAIN OR DISCOMFORT. WILL CONTINUE TO MONITOR.
[2020-08-18] MEDS: Albuterol ud Inhalation HHN SCH ×6 (03:00→23:19)
--- NOTE | 2020-08-18 03:03 | NUR ---
NURSE NOTES: SECOND UNIT TRANSFUSED. V/S ARE FOLLOWS: BP 118/79 (LEFT ARM), TEMP 97.9F (ORAL), HR 69, RR 18, SAO2 99% ON 2LPM VIA NC. PATIENT TOLERATED WELL WITHOUT ANY S/SX OF PAIN OR DISCOMFORT. DENIES ANY SHORTNESS OF BREATH OR DIFFICULTY BREATHING.
[2020-08-18 04:00] VITALS: BP 118/49
[2020-08-18] MEDS: HydrALAZINE 50mg tab GT SCH ×3 (05:43→21:24)
[2020-08-18] MEDS: cloNIDine 0.2mg Tab GT SCH ×3 (05:43→21:24)
--- NOTE | 2020-08-18 07:15 | NUR ---
NURSE HAND-OFF REPORT: Important Events on Shift: BLOOD TRANSFUSION X 2 UNITS PRBCs, HD TODAY 08/18 Patient Status: STABLE Diet: RENAL Pending Orders: N/A Pending Results/Labs:08/18 AM LABS Pending MD notification:N/A Latest Vital Signs: Temperature 97.9 , Pulse 69 , B/P 110 /42 , Respiratory Rate 18 , O2 SAT 99 , Nasal Cannula, O2 Flow Rate 2.0 . Vital Sign Comment: STABLE EKG Rhythm: Sinus Rhythm Rhythm change?: N MD Notified?: - MD Response: Latest Virgen Fall Score: 30 Fall Risk: Medium Risk Safety Measures: Call light Within Reach, Bed Alarm Zone 1, Side Rails Side Rails x3, Bed position Low and Locked. Fall Precautions: Yellow Socks Yellow Gown Door Sign Patient Fall Education Report given to ENRIQUE DAWKINS.
--- NOTE | 2020-08-18 07:30 | NUR ---
NURSE NOTES: Received pt from ENRIQUE River, pt is awake and alert, pt has NC 2Lit, pt has intact iv access LH 22G SL. pt is on continues heart monitoring. no complain of pain at this moment. waiting for HD, All needs attended, bed is locked and is in the lowest position, call light within easy reach. will continue to monitor.
[2020-08-18 08:00] VITALS: BP 125/52
[2020-08-18 08:44] LABS: HEMATOCRIT 20.2 % (37.0-47.0); MEAN CORPUSCULAR VOLUME 91 FL (80-99); PLATELET COUNT 133 K/UL (150-450); RED BLOOD COUNT 2.23 M/UL (4.20-5.40); RED CELL DISTRIBUTION WIDTH 16.4 % (11.6-14.8); WHITE BLOOD COUNT 5.9 K/UL (4.8-10.8)
[2020-08-18 08:46] LABS: % IRON SATURATION 85 % (15-50); IRON 161 ug/dL (50-175); TOTAL IRON BINDING CAPACITY 190 ug/dL (250-450)
[2020-08-18 08:49] LABS: ALBUMIN 2.2 G/DL (3.4-5.0); ALBUMIN/GLOBULIN RATIO 0.7 (1.0-2.7); BILIRUBIN,TOTAL 0.3 MG/DL (0.2-1.0); CALCIUM 9.8 MG/DL (8.5-10.1); HEMOGLOBIN 7.3 G/DL (12.0-16.0); POTASSIUM 5.2 MMOL/L (3.5-5.1)
[2020-08-18] MEDS: Metoprolol Tartrate 50mg tab GT SCH ×2 (09:00→21:25)
[2020-08-18] MEDS ORDERED: Docusate 100mg cap ORAL SCH (09:00)
--- NOTE | 2020-08-18 09:15 | History and Physical Report ---
DATE OF ADMISSION: 08/17/2020 CHIEF COMPLAINT: Severe anemia. HISTORY OF PRESENT ILLNESS: The patient is a pleasant 74-year-old female, well known to me. She has a history of end-stage renal disease, on chronic hemodialysis, hypertension, congestive heart failure, hypothyroidism, and hypertensive heart disease. She has a history of prior GI bleed and in October had an endoscopy that showed only diverticulosis. Family notes over the last several days, she has had minimal to no p.o. intake. Previously she was eating well. There are no reports of any melena or bright red blood per rectum or hematemesis and/or hematuria. Family brought her to the emergency room. On evaluation there, labs were significant for hemoglobin of 3.7 significant anemia. She is now admitted for further evaluation and care. PAST MEDICAL HISTORY: As above. PAST SURGICAL HISTORY: Includes AV fistula. CURRENT MEDICATIONS: Reconciled and reviewed. ALLERGIES: Include erythromycin. FAMILY HISTORY: Noncontributory. SOCIAL HISTORY: There is no known history of tobacco, ethanol, or drugs. REVIEW OF SYSTEMS: GENERAL: No fevers or chills. HEENT: No headaches or visual changes. CARDIOPULMONARY: No chest pain or shortness of breath. GASTROINTESTINAL: No nausea or vomiting. No melena. No bright red blood per rectum or hematemesis. GENITOURINARY: No urgency or frequency. No hematuria. MUSCULOSKELETAL: No dependent swelling. NEUROLOGIC: No evidence of seizures. PHYSICAL EXAMINATION: VITAL SIGNS: Temperature 98, pulse 69, respirations 18, and blood pressure 118/49. GENERAL: The patient is well developed, in no apparent distress. Awake, alert, and answers questions appropriately and follows commands. HEENT: Head is normocephalic and atraumatic. Oropharynx is clear. Mucous membranes are moist. NECK: Supple. There is no adenopathy. HEART: Regular rate and rhythm. LUNGS: Clear to auscultation bilaterally. ABDOMEN: Soft, nontender, and nondistended. EXTREMITIES: Without clubbing, cyanosis, or edema. LABORATORY DATA: White count was 8, hemoglobin 3.7, hematocrit of 11. Sodium 139, potassium 4.7, chloride 102, bicarb 26, BUN 110, creatinine 6.8. Lactic acid was 4.1. Mag was 4.9. ASSESSMENT: This is a 74-year-old female with a history of end-stage renal disease, hypertension, hypothyroidism, history of diverticulosis, admitted with complaints of severe anemia, etiology of which is unclear. PLAN: Transfuse till hemoglobin greater than 8. Serial CBCs. Check stool for occult blood. Check an iron panel. We will check retic count. Heme/Onc consultation. GI, Renal, Cardiology evaluations will also be obtained. Plan of care has been discussed with the patient's daughter, Sharron. Chema Hendricks M.D. DR: Blair JOB#: [id number] CC:
[2020-08-18] MEDS: Sensipar 30mg Tab GT SCH (09:24)
[2020-08-18] MEDS: Docusate 100mg/10ml Liq GT SCH (09:24)
[2020-08-18] MEDS: Levothyroxine 125mcg tab GT SCH (09:24)
[2020-08-18] MEDS: Pantoprazole Inj IVP SCH ×2 (09:24→21:23)
[2020-08-18] MEDS: Acetaminophen 650mg/20.3ml GT PRN ×2 (09:25→17:40)
--- NOTE | 2020-08-18 11:19 | Nephrology Progress Note ---
Assessment/Plan Problem List: (1) ESRD (end stage renal disease) on dialysis (2) Anemia in chronic kidney disease (3) Hypertensive nephrosclerosis (4) Hypercalcemia (5) GI bleed (6) Bronchitis Plan HD 08/18 08/19, transfuse, ppi, hhn Subjective Constitutional: Reports: weakness HEENT: Reports: no symptoms Genitourinary: Reports: no symptoms Neurologic/Psychiatric: Reports: pre-existing deficit Objective Objective Last 24 Hour Vital Signs Date Time Temp Pulse Resp B/P (MAP) Pulse Ox O2 Delivery O2 Flow Rate FiO2 08/18/20 09:55 100.0 08/18/20 09:00 Nasal Cannula 2.0 08/18/20 09:00 67 125/52 08/18/20 08:42 67 16 99 Nasal Cannula 2.0 28 67 18 99 08/18/20 08:00 100.4 65 18 125/52 (76) 100 08/18/20 07:46 66 08/18/20 05:43 110/42 08/18/20 05:43 110/42 08/18/20 04:00 69 08/18/20 04:00 97.9 69 18 118/49 (72) 99 08/18/20 00:00 71 08/18/20 00:00 99.1 72 18 121/44 (69) 99 08/17/20 21:00 Nasal Cannula 2.0 08/17/20 20:54 76 150/49 08/17/20 20:00 81 08/17/20 20:00 98.1 76 18 150/49 (82) 99 08/17/20 19:25 79 22 100 Room Air 21 77 24 90 08/17/20 18:16 Room Air 08/17/20 17:11 97.5 73 15 108/51 100 Room Air 08/17/20 16:45 97.5 66 15 08/17/20 16:30 97.2 73 16 94/42 100 Room Air 08/17/20 16:30 97.2 73 16 08/17/20 16:00 97.5 82 18 95/62 96 Room Air 08/17/20 14:15 97.9 75 16 92/73 99 Room Air 08/17/20 12:10 78 16 Room Air 08/17/20 12:10 98.2 68 23 110/41 98 Room Air 08/17/20 12:00 98.2 78 16 110/41 (64) 100 Room Air Intake and Output 08/17/20 08/18/20 18:59 06:59 Intake Total 500 ml 1220 ml Balance 500 ml 1220 ml Intake Oral 0 ml 720 ml IV Total 500 ml Blood Product 500 ml # Voids 1 Laboratory Tests 08/17/20 12:23: Arterial Blood pH 7.422, Arterial Blood Partial Pressure CO2 40.2, Arterial Blood Partial Pressure O2 34.8*L, Arterial Blood HCO3 25.6, Arterial Blood Oxygen Saturation 58.5*L, Arterial Blood Base Excess 1.0, [place] Test Positive 08/17/20 13:00: White Blood Count 8.2, Red Blood Count 1.11L, Hemoglobin 3.7*L, Hematocrit 11.2L , Mean Corpuscular Volume 101H, Mean Corpuscular Hemoglobin 33.3H, Mean Corpuscular Hemoglobin Concent 33.1, Red Cell Distribution Width 16.6H, Platelet Count 191, Mean Platelet Volume 6.4L, Neutrophils (%) (Auto) , Lymphocytes (%) (Auto) , Monocytes (%) (Auto) , Eosinophils (%) (Auto) , Basophils (%) (Auto) , Differential Total Cells Counted 100, Neutrophils % (Manual) 71, Lymphocytes % (Manual) 20, Monocytes % (Manual) 8, Eosinophils % (Manual) 1, Basophils % (Manual) 0, Band Neutrophils 0, Nucleated Red Blood Cells 2, Platelet Estimate Adequate, Platelet Morphology Normal, Polychromasia 1+, Hypochromasia 2+, Anisocytosis 1+, Macrocytosis 1+, Prothrombin Time 11.1, Prothromb Time International Ratio 1.0, Activated Partial Thromboplast Time 18L, D-Dimer 0.96H, Sodium Level 139, Potassium Level 4.7, Chloride Level 102, Carbon Dioxide Level 26, Anion Gap 11, Blood Urea Nitrogen 110H, Creatinine 6.8H, Estimat Glomerular Filtration Rate 7.2, Glucose Level 115H, Lactic Acid Level 4.10H, Calcium Level 9.7, Magnesium Level 4.9*H, Ferritin 1340H, Total Bilirubin 0.2, Aspartate Amino Transf (AST/SGOT) 34, Alanine Aminotransferase (ALT/SGPT) 23, Alkaline Phosphatase 42L, Ammonia 21, Lactate Dehydrogenase 155, Total Creatine Kinase 39, Creatine Kinase MB 0.5, Creatine Kinase MB Relative Index 1.2, Troponin I 0.026, C-Reactive Protein, Quantitative < 0.4, Pro-B-Type Natriuretic Peptide 19454E, Total Protein 4.9L, Albumin 2.1L, Globulin 2.8, Albumin/Globulin Ratio 0.7L, Lipase 223, Serum Alcohol < 3 08/17/20 14:40: Lactic Acid Level 1.80 08/18/20 08:20: White Blood Count 5.9, Red Blood Count 2.23L, Hemoglobin 7.3#L, Hematocrit 20.2#L, Mean Corpuscular Volume 91#, Mean Corpuscular Hemoglobin 32.5H, Mean Corpuscular Hemoglobin Concent 35.9, Red Cell Distribution Width 16.4H, Platelet Count 133L, Mean Platelet Volume 6.7, Neutrophils (%) (Auto) , Lymphocytes (%) (Auto) , Monocytes (%) (Auto) , Eosinophils (%) (Auto) , Basophils (%) (Auto) , Differential Total Cells Counted 100, Neutrophils % (Manual) 75, Lymphocytes % (Manual) 12L, Monocytes % (Manual) 11H, Eosinophils % (Manual) 2, Basophils % (Manual) 0, Band Neutrophils 0, Nucleated Red Blood Cells 1, Platelet Estimate DecreasedL, Platelet Morphology Normal, Polychromasia 1+, Anisocytosis 1+, Sodium Level 137, Potassium Level 5.2H, Chloride Level 103, Carbon Dioxide Level 26, Anion Gap 8, Blood Urea Nitrogen 107H, Creatinine 7.0H, Estimat Glomerular Filtration Rate 7.0, Glucose Level 95, Calcium Level 9.8, Total Bilirubin 0.3, Aspartate Amino Transf (AST/SGOT) 39H, Alanine Aminotransferase (ALT/SGPT) 27, Alkaline Phosphatase 45L, Total Protein 5.2L, Albumin 2.2L, Globulin 3.0, Albumin/Globulin Ratio 0.7L, Iron Level 161, Total Iron Binding Capacity 190L, Percent Iron Saturation 85H, Unsaturated Iron Binding 29L Height (Feet): 5 Height (Inches): 5.00 Weight (Pounds): 166 General Appearance: no apparent distress, alert EENT: normal ENT inspection Neck: normal alignment Cardiovascular: regular rhythm Respiratory/Chest: rhonchi - bilaterally Abdomen: non tender, soft Extremities: non-tender, no edema Neurologic: motor weakness, disoriented Lang,Jose MD Aug 18, 2020 11:19
[2020-08-18 12:00] VITALS: BP 118/46
--- NOTE | 2020-08-18 12:05 | NUR ---
NURSE NOTES: HD nurse Kyrie is aware about HD tomorrow, she will F/U. Will continue to monitor.
--- NOTE | 2020-08-18 12:45 | NUR ---
NURSE NOTES: Dr Rao visited pt and is aware pt doesn't eat any thing, MD will F/U. No new order to RN. Will continue to monitor.
--- NOTE | 2020-08-18 14:57 | NUR ---
NURSE NOTES: BP meds are held due to HD. Will continue to monitor.
--- NOTE | 2020-08-18 15:44 | NUR ---
CASE MANAGEMENT:REVIEW FROM HOME TO ER PMH: ESRD ON HD CC: WEAKNESS SI: PROFOUND ANEMIA 98.2 78 16 95/62 100% ON RA H/H-3.7/11.2 D-DIMER+0.96 CA-4.9 IS:500CC NS BOLUS IV CEFEPIME IV VANCOMYCIN BLOOD CX CHEST XRAY COVID SWAB : TO TELEMETRY PLAN: TRANSFUSE 4 UNITS PRBC
--- NOTE | 2020-08-18 15:48 | NUR ---
NURSE NOTES: Dr Lemus verbally ordered to transfuse blood during HD, PRBC got from blood bank and checked with HD nurse Young V/S before blood transfusion is BP 128/65 HR 66 T 98.1 RR 20, HD nurse is infusing blood. will continue to close monitoring.
[2020-08-18 16:00] VITALS: BP 128/65
[2020-08-18] MEDS ORDERED: TYLENOL WITH C1 EACH GT (16:39)
[2020-08-18] MEDS ORDERED: SYNTHROID150 MCG GT (16:39)
--- NOTE | 2020-08-18 16:57 | NUR ---
NURSE NOTES: blood transfusion finished and pt tolerated well. no reaction noted. post transfusion V/S, BP 114/65 HR 60 T 97.9 RR 20. Still HD is on. will continue to monitor.
[2020-08-18] MEDS ORDERED: Heparin Sod 1000 units/ml 10ml IV PRN ×2 (17:30→17:45)
[2020-08-18] MEDS ORDERED: Heparin Sod 1000 units/ml 10ml INJ PRN (17:45)
--- NOTE | 2020-08-18 17:48 | NUR ---
NURSE NOTES: 500 unit heparin by HD nurse Kyrie given to pt during HD, couldn't scan med, pharmacist Angelique is aware. the rest of 500 unit wasted in med room.
--- NOTE | 2020-08-18 17:52 | NUR ---
NURSE NOTES: PT IS SCREAMING FROM PAIN DURING HD, TYLENOL ISN'T EFFECTIVE, DR AZEVEDO IS AWARE AND ORDERED NORCO 10, NOTED AND CARRIED OUT. WILL CONTINUE TO MONITOR.
[2020-08-18] MEDS: HYDROcodone/Acetamin 10/325 tab GT PRN (18:14)
--- NOTE | 2020-08-18 19:00 | NUR ---
NURSE NOTES: HD finished with 3lit out put, V/S BP 122/60 HR 65 RR 30 SPO2 100% with SOB, RT is aware and BT done. continue to monitor.
--- NOTE | 2020-08-18 19:33 | NUR ---
NURSE HAND-OFF REPORT: Important Events on Shift: Patient Status: Diet: Pending Orders: Pending Results/Labs: Pending MD notification: Latest Vital Signs: Temperature 98.1 , Pulse 66 , B/P 128 /65 , Respiratory Rate 20 , O2 SAT 99 , Nasal Cannula, O2 Flow Rate 2.0 . Vital Sign Comment: EKG Rhythm: Sinus Rhythm Rhythm change?: N MD Notified?: - MD Response: Latest Virgen Fall Score: 45 Fall Risk: High Risk Safety Measures: Call light Within Reach, Bed Alarm Zone 1, Side Rails Side Rails x3, Bed position Low and Locked. Fall Precautions: Yellow Socks Yellow Gown Door Sign Patient Fall Education Report given to . pt is awake and still has SOB, Enorsed plan of care, endorsed to monitor breathing.
--- NOTE | 2020-08-18 19:35 | NUR ---
NURSE NOTES: Received pt and report from ENRIQUE Acuna. Observed pt resting in bed with both eyes open. Pt is A/Ox3. manager ship is in placed; pt NSR. IV site intact, asymptomatic and patent. Pt is on 2L O2 NC; sating at 100%. Bed is in the lowest position and locked. Call light and bedside table is within reach. No signs/symptoms of acute distress noted. Will continue plan of care.
[2020-08-18 20:00] VITALS: BP 153/61
--- NOTE | 2020-08-18 22:27 | General Progress Note ---
Subjective Allergies: Coded Allergies: ERYTHROMYCIN BASE (Unverified Allergy, Intermediate, 07/14/19) Per patient not allergic to medications or food Objective Last 24 Hour Vital Signs Date Time Temp Pulse Resp B/P (MAP) Pulse Ox O2 Delivery O2 Flow Rate FiO2 08/18/20 21:25 79 153/61 08/18/20 21:24 153/61 08/18/20 21:24 153/61 08/18/20 18:55 64 20 100 Nasal Cannula 2.0 28 60 22 100 08/18/20 16:00 98.1 66 20 128/65 (86) 99 08/18/20 15:38 79 20 99 Nasal Cannula 2.0 28 08/18/20 15:25 69 08/18/20 14:00 118/46 08/18/20 14:00 118/46 08/18/20 12:00 97.7 65 18 118/46 (70) 100 08/18/20 11:53 64 16 99 Nasal Cannula 2.0 28 08/18/20 11:49 66 08/18/20 09:55 100.0 08/18/20 09:00 Nasal Cannula 2.0 08/18/20 09:00 67 125/52 08/18/20 08:42 67 16 99 Nasal Cannula 2.0 28 67 18 99 08/18/20 08:00 100.4 65 18 125/52 (76) 100 08/18/20 07:46 66 08/18/20 05:43 110/42 08/18/20 05:43 110/42 08/18/20 04:00 69 08/18/20 04:00 97.9 69 18 118/49 (72) 99 08/18/20 00:00 71 08/18/20 00:00 99.1 72 18 121/44 (69) 99 Intake and Output 08/17/20 08/18/20 19:00 07:00 Intake Total 500 ml 1220 ml Balance 500 ml 1220 ml Intake Oral 0 ml 720 ml IV Total 500 ml Blood Product 500 ml # Voids 1 Laboratory Tests 08/18/20 08:20: White Blood Count 5.9, Red Blood Count 2.23L, Hemoglobin 7.3#L, Hematocrit 20. 2#L, Mean Corpuscular Volume 91#, Mean Corpuscular Hemoglobin 32.5H, Mean Corpuscular Hemoglobin Concent 35.9, Red Cell Distribution Width 16.4H, Platelet Count 133L, Mean Platelet Volume 6.7, Neutrophils (%) (Auto) , Lymphocytes (%) (Auto) , Monocytes (%) (Auto) , Eosinophils (%) (Auto) , Basophils (%) (Auto) , Differential Total Cells Counted 100, Neutrophils % (Manual) 75, Lymphocytes % (Manual) 12L, Monocytes % (Manual) 11H, Eosinophils % (Manual) 2, Basophils % (Manual) 0, Band Neutrophils 0, Nucleated Red Blood Cells 1, Platelet Estimate DecreasedL, Platelet Morphology Normal, Polychromasia 1+, Anisocytosis 1+, Sodium Level 137, Potassium Level 5.2H, Chloride Level 103, Carbon Dioxide Level 26, Anion Gap 8, Blood Urea Nitrogen 107H, Creatinine 7.0H, Estimat Glomerular Filtration Rate 7.0, Glucose Level 95, Calcium Level 9.8, Iron Level 161, Total Iron Binding Capacity 190L, Percent Iron Saturation 85H, Unsaturated Iron Binding 29L, Total Bilirubin 0.3, Aspartate Amino Transf (AST/SGOT) 39H, Alanine Aminotransferase (ALT/SGPT) 27, Alkaline Phosphatase 45L, Total Protein 5.2L, Albumin 2.2L, Globulin 3.0, Albumin/Globulin Ratio 0.7L, Hepatitis B Surface Antigen [Pending] Height (Feet): 5 Height (Inches): 5.00 Weight (Pounds): 166 Assessment/Plan Assessment/Plan: Assessment - recurrent severe Anemia, at least partly due to ESRD - s/p recent negative EGD/Colonoscopy/capsule endoscopy - no Sx of GIB, and no Iron deficiency - ? Bone marrow d/o - recurrent anorexia Recommendations - check stool OB - consider hematology eval - will consider repeat Endoscopy if OB (+) Discussed with DTR Thank you MD Jalen Doty Payman MD Aug 18, 2020 22:27
[2020-08-18] MEDS ORDERED: Sorbitol Solution UD 30ml ORAL SCH (22:30)
--- NOTE | 2020-08-18 23:30 | Consultation ---
DATE OF CONSULTATION: 08/18/2020 GASTROENTEROLOGY CONSULTATION REPORT CONSULTING PHYSICIAN: Mina Rao MD. CHIEF COMPLAINT: I was asked to see this patient by Dr. Chema Hendricks for evaluation of severe anemia. HISTORY OF PRESENT ILLNESS: Patient is a debilitated 74-year-old woman with multiple medical problems who was admitted to the hospital due to severe anemia. She had an admission about 2 months ago where she was also again admitted for anemia. At that time, she underwent a stool evaluation, which showed heme-positive stools. Therefore, she underwent an endoscopy and a colonoscopy and a followup capsule endoscopy. The endoscopy and colonoscopy, which was done on 07/22/2020 showed incidental pigmented epithelium in the stomach and the duodenum. There is also a left-sided diverticulosis. However, no pathology was identified to explain the patient's significant blood loss. Subsequently, the patient also had a capsule endoscopy evaluation. The capsule spent 4 hours in the stomach before entering the small bowel and there was rapid transit and therefore visualization was poor. However, no definitive source of blood loss could be identified. The patient was discharged and managed at home, but now comes into the hospital due to severe anemia. It should be noted, however, that patient does not have any history of melena in the chart. She denies any symptomatology to the abdomen. She is saying that she does not want to eat and she has no appetite. Previously, she had a gastrostomy tube, but this was recently pulled. At the family's insistence, she was eating well. The patient has renal failure and has chronic anemia at least based on her dialysis status. PAST MEDICAL HISTORY: History of renal failure on dialysis, hypertension, congestive heart failure, hypothyroidism, hypertensive heart disease, diverticulosis, anemia. FAMILY HISTORY: Noncontributory. SOCIAL HISTORY: Patient has had no history of smoking or drinking. REVIEW OF SYSTEMS: Otherwise negative. PHYSICAL EXAMINATION: GENERAL: Elderly woman, seen in her room. HEENT: Normocephalic and atraumatic. Sclerae are anicteric. NECK: Supple. CHEST: Clear to auscultation. CARDIOVASCULAR: Revealed a regular rate. ABDOMEN: Soft, nontender. There is no organomegaly. EXTREMITIES: Revealed no edema. LABORATORY DATA: Noted. ASSESSMENT: This patient presents with recurrent anemia, which is severe and surprising especially since she has no reported history of melena or hematochezia. Patient's stool occult blood is still pending as she has not had a bowel movement. I would perhaps consider a Hematology evaluation to see if there is any bone marrow failure since the patient does not have any iron deficiency. She has had an endoscopy and a colonoscopy and a capsule endoscopy and therefore her entire GI tract has been surveyed. I will discuss patient's management with the family once a repeat stool occult blood has been obtained. RECOMMENDATIONS: 1. Consider Hematology evaluation. 2. Await stool occult blood. 3. We will consider endoscopy if she is heme-positive at this time. Thank you for asking me to participate in the care of this patient. Mina Rao M.D. DR: CLIF JOB#: [id number] CC: YUE
[2020-08-19] VITALS: BP 143/54
--- NOTE | 2020-08-19 02:37 | Cardiology Progress Note ---
Subjective DATE OF SERVICE: Aug 18, 2020 s/p PRBC transfusions - hemoglobin increased from 3.7 to 7.3 No c/o CP or SOB Monitor: sinus with atrial ectopy Objective Last 24 Hour Vital Signs Date Time Temp Pulse Resp B/P (MAP) Pulse Ox O2 Delivery O2 Flow Rate FiO2 08/19/20 00:00 98.2 75 20 143/54 (83) 98 08/19/20 00:00 74 08/18/20 23:20 68 20 100 Nasal Cannula 2.0 28 70 20 100 08/18/20 21:25 79 153/61 08/18/20 21:24 153/61 08/18/20 21:24 153/61 08/18/20 21:00 Nasal Cannula 2.0 08/18/20 20:00 70 08/18/20 20:00 97.2 79 22 153/61 (91) 100 08/18/20 18:55 64 20 100 Nasal Cannula 2.0 28 60 22 100 08/18/20 16:00 98.1 66 20 128/65 (86) 99 08/18/20 15:38 79 20 99 Nasal Cannula 2.0 28 08/18/20 15:25 69 08/18/20 14:00 118/46 08/18/20 14:00 118/46 08/18/20 12:00 97.7 65 18 118/46 (70) 100 08/18/20 11:53 64 16 99 Nasal Cannula 2.0 28 08/18/20 11:49 66 08/18/20 09:55 100.0 08/18/20 09:00 Nasal Cannula 2.0 08/18/20 09:00 67 125/52 08/18/20 08:42 67 16 99 Nasal Cannula 2.0 28 67 18 99 08/18/20 08:00 100.4 65 18 125/52 (76) 100 08/18/20 07:46 66 08/18/20 05:43 110/42 08/18/20 05:43 110/42 08/18/20 04:00 69 08/18/20 04:00 97.9 69 18 118/49 (72) 99 ROS: Unchanged from my evaluation of 08/17/20. HEENT: normal ENT inspection RHYTHM: NSR, PACs LUNGS: lungs clear bilaterally, diminished breath sounds CARDIAC: normal rate, regular rhythm, normal S1 and S2, systolic murmur - 1/6 systolic murmur at base ABDOMEN: normal bowel sounds, non tender, soft, no organomegaly EXTREMITIES: normal range of motion, trace edema Laboratory Tests Test 08/18/20 08:20 White Blood Count 5.9 K/UL (4.8-10.8) Red Blood Count 2.23 M/UL (4.20-5.40) L Hemoglobin 7.3 G/DL (12.0-16.0) #L Hematocrit 20.2 % (37.0-47.0) #L Mean Corpuscular Volume 91 FL (80-99) # Mean Corpuscular Hemoglobin 32.5 PG (27.0-31.0) H Mean Corpuscular Hemoglobin Concent 35.9 G/DL (32.0-36.0) Red Cell Distribution Width 16.4 % (11.6-14.8) H Platelet Count 133 K/UL (150-450) L Mean Platelet Volume 6.7 FL (6.5-10.1) Neutrophils (%) (Auto) % (45.0-75.0) Lymphocytes (%) (Auto) % (20.0-45.0) Monocytes (%) (Auto) % (1.0-10.0) Eosinophils (%) (Auto) % (0.0-3.0) Basophils (%) (Auto) % (0.0-2.0) Differential Total Cells Counted 100 Neutrophils % (Manual) 75 % (45-75) Lymphocytes % (Manual) 12 % (20-45) L Monocytes % (Manual) 11 % (1-10) H Eosinophils % (Manual) 2 % (0-3) Basophils % (Manual) 0 % (0-2) Band Neutrophils 0 % (0-8) Nucleated Red Blood Cells 1 /100 WBC Platelet Estimate Decreased L Platelet Morphology Normal Polychromasia 1+ Anisocytosis 1+ Sodium Level 137 MMOL/L (136-145) Potassium Level 5.2 MMOL/L (3.5-5.1) H Chloride Level 103 MMOL/L (98-107) Carbon Dioxide Level 26 MMOL/L (21-32) Anion Gap 8 mmol/L (5-15) Blood Urea Nitrogen 107 mg/dL (7-18) H Creatinine 7.0 MG/DL (0.55-1.30) H Estimat Glomerular Filtration Rate 7.0 mL/min (>60) Glucose Level 95 MG/DL (74-106) Calcium Level 9.8 MG/DL (8.5-10.1) Iron Level 161 ug/dL (50-175) Total Iron Binding Capacity 190 ug/dL (250-450) L Percent Iron Saturation 85 % (15-50) H Unsaturated Iron Binding 29 ug/dL (112-346) L Total Bilirubin 0.3 MG/DL (0.2-1.0) Aspartate Amino Transf (AST/SGOT) 39 U/L (15-37) H Alanine Aminotransferase (ALT/SGPT) 27 U/L (12-78) Alkaline Phosphatase 45 U/L (46-116) L Total Protein 5.2 G/DL (6.4-8.2) L Albumin 2.2 G/DL (3.4-5.0) L Globulin 3.0 g/dL Albumin/Globulin Ratio 0.7 (1.0-2.7) L Hepatitis B Surface Antigen Pending Microbiology Date/Time Source Procedure Growth Status 08/17/20 13:15 Blood Blood Culture - Preliminary NO GROWTH AFTER 24 HOURS Resulted 08/17/20 13:00 Blood Blood Culture - Preliminary NO GROWTH AFTER 24 HOURS Resulted 08/17/20 12:30 Nasopharynx SARS-CoV-2 RdRp Gene Assay - Final Complete Assessment/Plan Assessment/Plan Severe anemia ESRD Hx g-tube Hypertension/HHD Hx hypothyroidism Ac/chronic diastolic CHF Cerebrovascular disease PRBC tx for hemoglobin below 7 Epogen and vitamin suppl Check TSH No anti-plt rx HD/UF Titrate anti-HTN regimen Continue cardiac monitoring Lance Rivas MD Aug 19, 2020 02:37
--- NOTE | 2020-08-19 03:07 | NUR ---
NURSE NOTES: Collected OB stool and swabbed pt for MRSA nares, and VRE/CRE rectum. HD pt.
[2020-08-19] MEDS: Albuterol ud Inhalation HHN SCH ×6 (03:19→23:13)
[2020-08-19 04:00] VITALS: BP 110/53
[2020-08-19] MEDS: cloNIDine 0.2mg Tab GT SCH ×3 (06:21→21:39)
[2020-08-19] MEDS: HydrALAZINE 50mg tab GT SCH ×3 (06:21→21:40)
--- NOTE | 2020-08-19 07:28 | NUR ---
NURSE NOTES: Notified Dr. Rao that pt had large, loose, and very dark stool last night. OB stool collected and sent to lab.
--- NOTE | 2020-08-19 07:30 | NUR ---
NURSE NOTES: Received pt from RN My, pt is awake and alert, pt has NC 2Lit, pt has intact iv access LH 22G SL. pt is on continues heart monitoring. no complain of pain at this moment. waiting for HD, All needs attended, bed is locked and is in the lowest position, call light within easy reach. will continue to monitor.
--- NOTE | 2020-08-19 07:46 | NUR ---
NURSE HAND-OFF REPORT: Important Events on Shift: Pt had very dark loose stool last night. Dr. Rao notified. OB stool collected and sent to lab. Patient Status: Stable Diet: Renal diet Pending Orders: HD VIP Pending Results/Labs: AM labs Pending MD notification: N Latest Vital Signs: Temperature 97.8 , Pulse 78 , B/P 141 /56 , Respiratory Rate 19 , O2 SAT 98 , Nasal Cannula, O2 Flow Rate 2.0 . EKG Rhythm: Sinus Rhythm Rhythm change?: N Latest Virgen Fall Score: 60 Fall Risk: High Risk Safety Measures: Call light Within Reach, Bed Alarm Zone 1, Side Rails Side Rails x3, Bed position Low and Locked. Fall Precautions: Yellow Socks Yellow Gown Door Sign Patient Fall Education Report given to ENRIQUE Acuna.
[2020-08-19 08:00] VITALS: BP 125/52
[2020-08-19] MEDS: Metoprolol Tartrate 50mg tab GT SCH ×2 (09:00→21:39)
[2020-08-19 09:01] LABS: BASOPHILS % (AUTO) 1.6 % (0.0-2.0); EOSINOPHILS % (AUTO) 2.6 % (0.0-3.0); HEMATOCRIT 23.9 % (37.0-47.0); HEMOGLOBIN 8.3 G/DL (12.0-16.0); LYMPHOCYTES % (AUTO) 17.7 % (20.0-45.0); MEAN CORPUSCULAR VOLUME 92 FL (80-99); PLATELET COUNT 117 K/UL (150-450); RED BLOOD COUNT 2.61 M/UL (4.20-5.40); RED CELL DISTRIBUTION WIDTH 16.9 % (11.6-14.8); WHITE BLOOD COUNT 4.8 K/UL (4.8-10.8)
[2020-08-19] MEDS: Docusate 100mg/10ml Liq GT SCH (09:09)
[2020-08-19] MEDS: Pantoprazole Inj IVP SCH ×2 (09:09→21:39)
[2020-08-19] MEDS: Levothyroxine 125mcg tab GT SCH (09:09)
[2020-08-19] MEDS: Sensipar 30mg Tab GT SCH (09:09)
[2020-08-19 09:20] LABS: CALCIUM 9.4 MG/DL (8.5-10.1); CREATININE 4.7 MG/DL (0.55-1.30); POTASSIUM 4.1 MMOL/L (3.5-5.1)
--- NOTE | 2020-08-19 10:11 | Nephrology Progress Note ---
Assessment/Plan Problem List: (1) ESRD (end stage renal disease) on dialysis (2) Anemia in chronic kidney disease (3) Hypertensive nephrosclerosis (4) Hypercalcemia (5) GI bleed (6) Bronchitis Plan HD 08/18 08/19, transfuse, ppi, hhn Subjective Constitutional: Reports: weakness HEENT: Reports: no symptoms Genitourinary: Reports: no symptoms Neurologic/Psychiatric: Reports: pre-existing deficit Objective Objective Last 24 Hour Vital Signs Date Time Temp Pulse Resp B/P (MAP) Pulse Ox O2 Delivery O2 Flow Rate FiO2 08/19/20 09:00 64 125/52 08/19/20 08:00 98.3 64 18 125/52 (76) 96 08/19/20 07:46 70 18 100 Nasal Cannula 2.0 28 68 18 100 08/19/20 06:21 141/56 08/19/20 06:21 141/56 08/19/20 04:00 97.8 78 19 110/53 (72) 98 08/19/20 04:00 72 08/19/20 03:19 70 18 100 Nasal Cannula 2.0 28 70 18 99 08/19/20 00:00 98.2 75 20 143/54 (83) 98 08/19/20 00:00 74 08/18/20 23:20 68 20 100 Nasal Cannula 2.0 28 70 20 100 08/18/20 21:25 79 153/61 08/18/20 21:24 153/61 08/18/20 21:24 153/61 08/18/20 21:00 Nasal Cannula 2.0 08/18/20 20:00 70 08/18/20 20:00 97.2 79 22 153/61 (91) 100 08/18/20 18:55 64 20 100 Nasal Cannula 2.0 28 60 22 100 08/18/20 16:00 98.1 66 20 128/65 (86) 99 08/18/20 15:38 79 20 99 Nasal Cannula 2.0 28 08/18/20 15:25 69 08/18/20 14:00 118/46 08/18/20 14:00 118/46 08/18/20 12:00 97.7 65 18 118/46 (70) 100 08/18/20 11:53 64 16 99 Nasal Cannula 2.0 28 08/18/20 11:49 66 Intake and Output 08/18/20 08/19/20 19:00 07:00 Intake Total 120 ml 150 ml Output Total 3000 ml Balance 120 ml -2850 ml Intake Oral 120 ml 150 ml Output Hemodialysis UF 3000 ml # Voids 1 # Bowel Movements 2 Laboratory Tests 08/19/20 02:45: Stool Occult Blood [Pending] 08/19/20 08:05: White Blood Count 4.8, Red Blood Count 2.61L, Hemoglobin 8.3L, Hematocrit 23.9L, Mean Corpuscular Volume 92, Mean Corpuscular Hemoglobin 31.9H, Mean Corpuscular Hemoglobin Concent 34.8, Red Cell Distribution Width 16.9H, Platelet Count 117L , Mean Platelet Volume 8.0, Neutrophils (%) (Auto) 66.0, Lymphocytes (%) (Auto) 17.7L, Monocytes (%) (Auto) 12.0H, Eosinophils (%) (Auto) 2.6, Basophils (%) (Auto) 1.6, Sodium Level 138, Potassium Level 4.1, Chloride Level 102, Carbon Dioxide Level 28, Anion Gap 8, Blood Urea Nitrogen 49H, Creatinine 4.7H, Estimat Glomerular Filtration Rate 11.0, Glucose Level 93, Calcium Level 9.4, Thyroid Stimulating Hormone (TSH) 1.058 Height (Feet): 5 Height (Inches): 5.00 Weight (Pounds): 166 General Appearance: no apparent distress, alert EENT: normal ENT inspection Neck: supple Cardiovascular: regular rhythm Respiratory/Chest: lungs clear Abdomen: non tender Extremities: no edema 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
--- NOTE | 2020-08-19 10:45 | NUR ---
PT EVALUATION NOTE Patient seen for initial evaluation and treatment initiated. Patient presents with generalized weakness and instability in standing which impairs patient's ability to perform mobility tasks safely. Patient requires min assist for bed mobility and mod assist for sit <-> stand transfers with FWW. Patient able to take several small sideways steps with assist and FWW, unstable in standing and unable to ambulate at this time due to weakness. Patient will benefit from skilled inpatient PT intervention to increase strength and postural stability for improved level of functional mobility and safety. Recommend discharge to SNF for short term rehab vs home with home PT depending on patient's progress once medically cleared by MD. Patient appears to have necessary DME at home. Addendum: 08/19/20 at 1306 by MEREDITH CERVANTES PT Amended: Links added.
[2020-08-19 12:00] VITALS: BP 128/67
--- NOTE | 2020-08-19 12:28 | NUR ---
NURSE NOTES: Dr Hendricks is aware about BC gram positive cocci in cluster, waiting to call back. will continue to monitor.
[2020-08-19] MEDS: HYDROcodone/Acetamin 10/325 tab GT PRN (13:46)
--- NOTE | 2020-08-19 13:48 | NUR ---
NURSE NOTES: Dr Hendricks called back regarding BC, Ordered vanco per pharmacy, noted and carried out. will continue to monitor.
--- NOTE | 2020-08-19 13:57 | NUR ---
NURSE NOTES: HD started by nurse Mittal, will continue to monitor.
--- NOTE | 2020-08-19 14:00 | NUR ---
NURSE NOTES: BP meds are hold due to HD. Will continue to monitor.
--- NOTE | 2020-08-19 15:11 | General Progress Note ---
Subjective ROS Limited/Unobtainable: No Constitutional: Reports: malaise, weakness HEENT: Reports: no symptoms Cardiovascular: Reports: no symptoms Respiratory: Reports: no symptoms Gastrointestinal/Abdominal: Reports: no symptoms Genitourinary: Reports: no symptoms Neurologic/Psychiatric: Reports: pre-existing deficit Endocrine: Reports: no symptoms Hematologic/Lymphatic: Reports: anemia Allergies: Coded Allergies: ERYTHROMYCIN BASE (Unverified Allergy, Intermediate, 07/14/19) Per patient not allergic to medications or food All Systems: reviewed and negative except above Subjective no events. w/o complaints. had pain with HD. no melena or brbpr. stool OB+ . no fever or chills. no sob. +blood cultures noted. Objective Last 24 Hour Vital Signs Date Time Temp Pulse Resp B/P (MAP) Pulse Ox O2 Delivery O2 Flow Rate FiO2 08/19/20 14:00 128/67 08/19/20 14:00 128/67 08/19/20 12:00 97.9 68 20 128/67 (87) 97 08/19/20 11:50 68 08/19/20 11:21 65 18 99 Nasal Cannula 2.0 28 64 18 96 08/19/20 09:00 Nasal Cannula 2.0 08/19/20 09:00 64 125/52 08/19/20 08:00 98.3 64 18 125/52 (76) 96 08/19/20 07:55 65 08/19/20 07:46 70 18 100 Nasal Cannula 2.0 28 68 18 100 08/19/20 06:21 141/56 08/19/20 06:21 141/56 08/19/20 04:00 97.8 78 19 110/53 (72) 98 08/19/20 04:00 72 08/19/20 03:19 70 18 100 Nasal Cannula 2.0 28 70 18 99 08/19/20 00:00 98.2 75 20 143/54 (83) 98 08/19/20 00:00 74 08/18/20 23:20 68 20 100 Nasal Cannula 2.0 28 70 20 100 08/18/20 21:25 79 153/61 08/18/20 21:24 153/61 08/18/20 21:24 153/61 08/18/20 21:00 Nasal Cannula 2.0 08/18/20 20:00 70 08/18/20 20:00 97.2 79 22 153/61 (91) 100 08/18/20 18:55 64 20 100 Nasal Cannula 2.0 28 60 22 100 08/18/20 16:00 98.1 66 20 128/65 (86) 99 08/18/20 15:38 79 20 99 Nasal Cannula 2.0 28 08/18/20 15:25 69 Intake and Output 08/18/20 08/19/20 19:00 07:00 Intake Total 120 ml 150 ml Output Total 3000 ml Balance 120 ml -2850 ml Intake Oral 120 ml 150 ml Output Hemodialysis UF 3000 ml # Voids 1 # Bowel Movements 2 Laboratory Tests 08/19/20 02:45: Stool Occult Blood Positive 08/19/20 08:05: White Blood Count 4.8, Red Blood Count 2.61L, Hemoglobin 8.3L, Hematocrit 23.9L, Mean Corpuscular Volume 92, Mean Corpuscular Hemoglobin 31.9H, Mean Corpuscular Hemoglobin Concent 34.8, Red Cell Distribution Width 16.9H, Platelet Count 117L, Mean Platelet Volume 8.0, Neutrophils (%) (Auto) 66.0, Lymphocytes (%) (Auto) 17.7L, Monocytes (%) (Auto) 12.0H, Eosinophils (%) (Auto) 2.6, Basophils (%) (Auto) 1.6, Sodium Level 138, Potassium Level 4.1, Chloride Level 102, Carbon Dioxide Level 28, Anion Gap 8, Blood Urea Nitrogen 49H, Creatinine 4.7H, Estimat Glomerular Filtration Rate 11.0, Glucose Level 93, Calcium Level 9.4, Thyroid Stimulating Hormone (TSH) 1.058 Height (Feet): 5 Height (Inches): 5.00 Weight (Pounds): 166 General Appearance: WD/WN, alert EENT: normal ENT inspection Neck: non-tender, normal alignment, supple Cardiovascular: normal peripheral pulses, normal rate, regular rhythm Respiratory/Chest: chest wall non-tender, lungs clear, normal breath sounds, no respiratory distress Abdomen: normal bowel sounds, non tender, soft, no organomegaly Extremities: normal range of motion Edema: no edema noted Arm (L), no edema noted Arm (R) 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, alert, responsive Skin: normal pigmentation Assessment/Plan Problem List: (1) CKD (chronic kidney disease) stage 4, GFR 15-29 ml/min ICD Codes: N18.4 - Chronic kidney disease, stage 4 (severe) SNOMED: 145629848 (2) End-stage renal disease ICD Codes: N18.6 - End stage renal disease SNOMED: 20003682 (3) Hypothyroidism ICD Codes: E03.9 - Hypothyroidism SNOMED: 14655036 (4) Fever ICD Codes: R50.9 - Fever, unspecified SNOMED: 076952188 (5) Anemia in chronic kidney disease ICD Codes: N18.9 - Chronic kidney disease, unspecified; D63.1 - Anemia in chronic kidney disease SNOMED: 226617451 (6) GI bleed ICD Codes: K92.2 - Gastrointestinal hemorrhage, unspecified SNOMED: 80315624 (7) History of GI bleed ICD Codes: Z87.19 - Personal history of other diseases of the digestive system SNOMED: 039431291 (8) CHF exacerbation ICD Codes: I50.9 - Heart failure, unspecified SNOMED: 434377316, 03569710468611 (9) ESRD (end stage renal disease) on dialysis ICD Codes: N18.6 - End stage renal disease; Z99.2 - Dependence on renal dialysis SNOMED: 923754625 Status: stable Assessment/Plan: monitor h/h transfuse as needed possible endoscopy per GI monitor for bleeding PPI rx heme consult pending ?bone marrow iv abx follow up cultures ID eval HD per renal d/w dtr Chema Brown MD Aug 19, 2020 15:11
[2020-08-19 16:00] VITALS: BP 108/57
--- NOTE | 2020-08-19 16:48 | NUR ---
NURSE NOTES: HD finished with 2 lit out put. pt tolerated well. no stress noted. V/S stable. will continue to monitor.
--- NOTE | 2020-08-19 16:53 | NUR ---
NURSE NOTES: Telephone consent form for EGD got from Daughter Sharron By RN and witness DEVIN Nelson.
[2020-08-19] MEDS ORDERED: Vancomycin 1.25gm/NS Premix IVPB ONE (18:00)
--- NOTE | 2020-08-19 19:21 | NUR ---
NURSE HAND-OFF REPORT: Important Events on Shift: Patient Status: Diet: Pending Orders: Pending Results/Labs: Pending MD notification: Latest Vital Signs: Temperature 98.2 , Pulse 61 , B/P 108 /57 , Respiratory Rate 20 , O2 SAT 96 , Nasal Cannula, O2 Flow Rate 2.0 . Vital Sign Comment: EKG Rhythm: Sinus Rhythm Rhythm change?: N MD Notified?: - MD Response: Latest Virgen Fall Score: 45 Fall Risk: High Risk Safety Measures: Call light Within Reach, Bed Alarm Zone 1, Side Rails Side Rails x3, Bed position Low and Locked. Fall Precautions: Yellow Socks Yellow Gown Door Sign Patient Fall Education Report given to . pt is awake and stable, no stress noted. Enodrsed plan of care. Endorse about EGD and NPO from mid night.
--- NOTE | 2020-08-19 19:30 | NUR ---
NURSE NOTES: Received report from ENRIQUE Acuna. Patient is awake on bed, alert and oriented x 2. quality assurance monitor body is in place, shows sinus rhythm with no chest pain reported. With oxygen via nasal cannula @ 2Lpm, sating 95%. IV site is on left hand g-22 saline lock, HD access on right upper arm AV shunt. Safety measures are in place, bed in lowest and locked position, side rails up x 2. Call light button and bedside table within reach, instructed to call for any assistance needed.
[2020-08-19 20:00] VITALS: BP 128/61
--- NOTE | 2020-08-19 21:31 | General Progress Note ---
Subjective Allergies: Coded Allergies: ERYTHROMYCIN BASE (Unverified Allergy, Intermediate, 07/14/19) Per patient not allergic to medications or food Subjective above noted patient without complaints poor po intake, per event staff (+) OB - discussed with DTR re EGD/small bowel enteroscopy - agreed Objective Last 24 Hour Vital Signs Date Time Temp Pulse Resp B/P (MAP) Pulse Ox O2 Delivery O2 Flow Rate FiO2 08/19/20 19:58 70 18 100 Nasal Cannula 2.0 28 69 18 100 08/19/20 16:08 61 08/19/20 16:00 98.2 82 20 108/57 (74) 96 08/19/20 14:00 128/67 08/19/20 14:00 128/67 08/19/20 12:00 97.9 68 20 128/67 (87) 97 08/19/20 11:50 68 08/19/20 11:21 65 18 99 Nasal Cannula 2.0 28 64 18 96 08/19/20 09:00 Nasal Cannula 2.0 08/19/20 09:00 64 125/52 08/19/20 08:00 98.3 64 18 125/52 (76) 96 08/19/20 07:55 65 08/19/20 07:46 70 18 100 Nasal Cannula 2.0 28 68 18 100 08/19/20 06:21 141/56 08/19/20 06:21 141/56 08/19/20 04:00 97.8 78 19 110/53 (72) 98 08/19/20 04:00 72 08/19/20 03:19 70 18 100 Nasal Cannula 2.0 28 70 18 99 08/19/20 00:00 98.2 75 20 143/54 (83) 98 08/19/20 00:00 74 08/18/20 23:20 68 20 100 Nasal Cannula 2.0 28 70 20 100 Intake and Output 08/18/20 08/19/20 19:00 07:00 Intake Total 120 ml 150 ml Output Total 3000 ml Balance 120 ml -2850 ml Intake Oral 120 ml 150 ml Output Hemodialysis UF 3000 ml # Voids 1 # Bowel Movements 2 Laboratory Tests 08/19/20 02:45: Stool Occult Blood Positive 08/19/20 08:05: White Blood Count 4.8, Red Blood Count 2.61L, Hemoglobin 8.3L, Hematocrit 23.9L, Mean Corpuscular Volume 92, Mean Corpuscular Hemoglobin 31.9H, Mean Corpuscular Hemoglobin Concent 34.8, Red Cell Distribution Width 16.9H, Platelet Count 117L, Mean Platelet Volume 8.0, Neutrophils (%) (Auto) 66.0, Lymphocytes (%) (Auto) 17.7L, Monocytes (%) (Auto) 12.0H, Eosinophils (%) (Auto) 2.6, Basophils (%) (Auto) 1.6, Sodium Level 138, Potassium Level 4.1, Chloride Level 102, Carbon Dioxide Level 28, Anion Gap 8, Blood Urea Nitrogen 49H, Creatinine 4.7H, Estimat Glomerular Filtration Rate 11.0, Glucose Level 93, Calcium Level 9.4, Thyroid Stimulating Hormone (TSH) 1.058 Height (Feet): 5 Height (Inches): 5.00 Weight (Pounds): 166 Objective Debilitated AA woman NCAT supple CTA RR abd soft ND NT no edema Assessment/Plan Status: stable Assessment/Plan: Assessment - recurrent severe Anemia, at least partly due to ESRD - s/p recent negative EGD/Colonoscopy/capsule endoscopy - no Sx of GIB, and no Iron deficiency - ? Bone marrow d/o - but now OB (+) --> will schedule for EGD/Small bowel enteroscopy - recurrent anorexia Recommendations - follow labs - consider hematology eval - EGD with small bowel enteroscopy in am Mina Rao MD Aug 19, 2020 21:31
--- NOTE | 2020-08-19 23:52 | Cardiology Progress Note ---
Subjective DATE OF SERVICE: Aug 19, 2020 s/p PRBC transfusions - hemoglobin increased from 3.7 to 8.3 now No c/o CP or SOB Monitor: sinus with atrial ectopy Objective Last 24 Hour Vital Signs Date Time Temp Pulse Resp B/P (MAP) Pulse Ox O2 Delivery O2 Flow Rate FiO2 08/19/20 23:15 70 18 100 Nasal Cannula 2.0 28 70 18 100 08/19/20 21:40 138/61 08/19/20 21:39 71 138/61 08/19/20 21:39 138/61 08/19/20 21:00 Nasal Cannula 2.0 08/19/20 20:00 70 08/19/20 20:00 97.1 71 20 128/61 (83) 98 08/19/20 19:58 70 18 100 Nasal Cannula 2.0 28 69 18 100 08/19/20 16:08 61 08/19/20 16:00 98.2 82 20 108/57 (74) 96 08/19/20 14:00 128/67 08/19/20 14:00 128/67 08/19/20 12:00 97.9 68 20 128/67 (87) 97 08/19/20 11:50 68 08/19/20 11:21 65 18 99 Nasal Cannula 2.0 28 64 18 96 08/19/20 09:00 Nasal Cannula 2.0 08/19/20 09:00 64 125/52 08/19/20 08:00 98.3 64 18 125/52 (76) 96 08/19/20 07:55 65 08/19/20 07:46 70 18 100 Nasal Cannula 2.0 28 68 18 100 08/19/20 06:21 141/56 08/19/20 06:21 141/56 08/19/20 04:00 97.8 78 19 110/53 (72) 98 08/19/20 04:00 72 08/19/20 03:19 70 18 100 Nasal Cannula 2.0 28 70 18 99 08/19/20 00:00 98.2 75 20 143/54 (83) 98 08/19/20 00:00 74 ROS: Unchanged from my evaluation of 08/17/20. HEENT: normal ENT inspection RHYTHM: NSR, PACs LUNGS: lungs clear bilaterally, diminished breath sounds CARDIAC: normal rate, regular rhythm, normal S1 and S2, systolic murmur - 1/6 systolic murmur at base ABDOMEN: normal bowel sounds, non tender, soft, no organomegaly EXTREMITIES: normal range of motion, trace edema Laboratory Tests Test 08/19/20 02:45 08/19/20 08:05 Stool Occult Blood Positive (NEGATIVE) White Blood Count 4.8 K/UL (4.8-10.8) Red Blood Count 2.61 M/UL (4.20-5.40) L Hemoglobin 8.3 G/DL (12.0-16.0) L Hematocrit 23.9 % (37.0-47.0) L Mean Corpuscular Volume 92 FL (80-99) Mean Corpuscular Hemoglobin 31.9 PG (27.0-31.0) H Mean Corpuscular Hemoglobin Concent 34.8 G/DL (32.0-36.0) Red Cell Distribution Width 16.9 % (11.6-14.8) H Platelet Count 117 K/UL (150-450) L Mean Platelet Volume 8.0 FL (6.5-10.1) Neutrophils (%) (Auto) 66.0 % (45.0-75.0) Lymphocytes (%) (Auto) 17.7 % (20.0-45.0) L Monocytes (%) (Auto) 12.0 % (1.0-10.0) H Eosinophils (%) (Auto) 2.6 % (0.0-3.0) Basophils (%) (Auto) 1.6 % (0.0-2.0) Sodium Level 138 MMOL/L (136-145) Potassium Level 4.1 MMOL/L (3.5-5.1) Chloride Level 102 MMOL/L (98-107) Carbon Dioxide Level 28 MMOL/L (21-32) Anion Gap 8 mmol/L (5-15) Blood Urea Nitrogen 49 mg/dL (7-18) H Creatinine 4.7 MG/DL (0.55-1.30) H Estimat Glomerular Filtration Rate 11.0 mL/min (>60) Glucose Level 93 MG/DL (74-106) Calcium Level 9.4 MG/DL (8.5-10.1) Thyroid Stimulating Hormone (TSH) 1.058 uiU/mL (0.358-3.740) Microbiology Date/Time Source Procedure Growth Status 08/17/20 13:15 Blood Blood Culture - Preliminary NO GROWTH AFTER 24 HOURS Resulted 08/17/20 13:00 Blood Blood Culture - Preliminary Resulted 08/17/20 12:30 Nasopharynx SARS-CoV-2 RdRp Gene Assay - Final Complete Assessment/Plan Assessment/Plan Severe anemia ESRD Hx g-tube Hypertension/HHD Hx hypothyroidism - now euthyroid Ac/chronic diastolic CHF Cerebrovascular disease PRBC tx for hemoglobin below 7 Epogen and vitamin suppl No anti-plt rx HD/UF Titrate anti-HTN regimen Can discontinue cardiac monitoring Possible repeat EGD. Lance Rivas MD Aug 19, 2020 23:52
[2020-08-20] VITALS (9 sets, daily range): BP systolic 94–127; BP diastolic 51–73
[2020-08-20] MEDS: Albuterol ud Inhalation HHN SCH ×6 (03:24→23:00)
[2020-08-20] MEDS: HydrALAZINE 50mg tab GT SCH ×3 (05:56→21:05)
[2020-08-20] MEDS: cloNIDine 0.2mg Tab GT SCH ×3 (05:56→21:05)
[2020-08-20] MEDS ORDERED: Midazolam 2mg/2ml Inj IVP PRN (06:51)
[2020-08-20] MEDS ORDERED: fentaNYL 100 mcg/2 mL IV PRN (06:51)
--- NOTE | 2020-08-20 07:58 | NUR ---
NURSE HAND-OFF REPORT: Important Events on Shift: Patient has been resting well the whole shift Patient Status: Patient is awake on bed, on NPO post midnight, patient is forEndoscopy with possible bowel enteroscopy, biopsy, polypectomy, hemostasis and dilation today in a.m, consented. Plan of care endorsed. Diet: Renal diet, NPO post midnight Pending Orders: None Pending Results/Labs:[ None Pending MD notification:None Latest Vital Signs: Temperature 97.7 , Pulse 74 , B/P 115 /52 , Respiratory Rate 20 , O2 SAT 99 , Nasal Cannula, O2 Flow Rate 2.0 . Vital Sign Comment: stable EKG Rhythm: Sinus Rhythm Rhythm change?: N MD Notified?: - MD Response: Latest Virgen Fall Score: 45 Fall Risk: High Risk Safety Measures: Call light Within Reach, Bed Alarm Zone 1, Side Rails Side Rails x2, Bed position Low and Locked. Fall Precautions: Yellow Socks Yellow Gown Door Sign Patient Fall Education Report given to ENRIQUE Mandel.
--- NOTE | 2020-08-20 08:04 | General Progress Note ---
Subjective Allergies: Coded Allergies: ERYTHROMYCIN BASE (Unverified Allergy, Intermediate, 07/14/19) Per patient not allergic to medications or food Subjective above noted patient without complaints NPO for EGD no am labs yet Objective Last 24 Hour Vital Signs Date Time Temp Pulse Resp B/P (MAP) Pulse Ox O2 Delivery O2 Flow Rate FiO2 08/20/20 05:56 115/52 08/20/20 05:56 115/52 08/20/20 04:00 97.7 74 20 115/52 (73) 99 08/20/20 04:00 70 08/20/20 03:26 70 16 100 Nasal Cannula 2.0 28 68 16 100 08/20/20 00:00 65 08/20/20 00:00 97.1 70 21 121/56 (77) 100 08/19/20 23:15 70 18 100 Nasal Cannula 2.0 28 70 18 100 08/19/20 21:40 138/61 08/19/20 21:39 71 138/61 08/19/20 21:39 138/61 08/19/20 21:00 Nasal Cannula 2.0 08/19/20 20:00 70 08/19/20 20:00 97.1 71 20 128/61 (83) 98 08/19/20 19:58 70 18 100 Nasal Cannula 2.0 28 69 18 100 08/19/20 16:08 61 08/19/20 16:00 98.2 82 20 108/57 (74) 96 08/19/20 14:00 128/67 08/19/20 14:00 128/67 08/19/20 12:00 97.9 68 20 128/67 (87) 97 08/19/20 11:50 68 08/19/20 11:21 65 18 99 Nasal Cannula 2.0 28 64 18 96 08/19/20 09:00 Nasal Cannula 2.0 08/19/20 09:00 64 125/52 Intake and Output 08/19/20 08/20/20 18:59 06:59 Intake Total 600 ml Output Total 2000 ml 200 ml Balance -2000 ml 400 ml Intake Oral 600 ml Output Urine Total 200 ml Hemodialysis UF 2000 ml Laboratory Tests 08/19/20 08:05: White Blood Count 4.8, Red Blood Count 2.61L, Hemoglobin 8.3L, Hematocrit 23.9L, Mean Corpuscular Volume 92, Mean Corpuscular Hemoglobin 31.9H, Mean Corpuscular Hemoglobin Concent 34.8, Red Cell Distribution Width 16.9H, Platelet Count 117L, Mean Platelet Volume 8.0, Neutrophils (%) (Auto) 66.0, Lymphocytes (%) (Auto) 17.7L, Monocytes (%) (Auto) 12.0H, Eosinophils (%) (Auto) 2.6, Basophils (%) (Auto) 1.6, Sodium Level 138, Potassium Level 4.1, Chloride Level 102, Carbon Dioxide Level 28, Anion Gap 8, Blood Urea Nitrogen 49H, Creatinine 4.7H, Estimat Glomerular Filtration Rate 11.0, Glucose Level 93, Calcium Level 9.4, Thyroid Stimulating Hormone (TSH) 1.058 Height (Feet): 5 Height (Inches): 4.00 Weight (Pounds): 148 Objective Debilitated AA woman NCAT supple CTA RR abd soft ND NT no edema Assessment/Plan Status: stable Assessment/Plan: Assessment - recurrent severe Anemia, at least partly due to ESRD - s/p recent negative EGD/Colonoscopy/capsule endoscopy - no Sx of GIB, and no Iron deficiency - ? Bone marrow d/o - but now OB (+) --> for EGD/SB enteroscopy today - recurrent anorexia - ESRD - h/o CHF - RAD Recommendations - check labs - consider hematology eval - EGD with small bowel enteroscopy today Mina Rao MD Aug 20, 2020 08:03
--- NOTE | 2020-08-20 08:05 | Pre-Procedure Note/Attestation ---
Pre-Procedure Note/Attestation Complete Prior to Procedure Planned Procedure: not applicable Procedure Narrative: EGD Indications for Procedure Pre-Operative Diagnosis: GIB Attestation I attest that I discussed the nature of the procedure; its benefits; risks and complications; and alternatives (and the risks and benefits of such alternatives), prior to the procedure, with the patient (or the patient's legal field sales representative). I attest that, if there was a reasonable possibility of needing a blood transfusion, the patient (or the patient's legal field sales representative) was given the [facility] standardized written summary, pursuant to the [place] Blood Safety Act ([place] Health and Safety Code # 1645, as amended). I attest that I re-evaluated the patient just prior to the surgery and that there has been no change in the patient's H&P, except as documented below: Mina Rao MD Aug 20, 2020 08:05
--- NOTE | 2020-08-20 08:20 | NUR ---
NURSE NOTES: Received report from ENRIQUE Taylor. Patient is awake and AOX4, Pt is on room air with no sign of sob or resp distress. no sign of sob or resp distress. Pt is on surveillance monitor with SR noted. IV site on Left arm upper arm 22g. Bed in lowest and locked position, side rails up x 2. Will continue plan of care.
[2020-08-20] MEDS: Metoprolol Tartrate 50mg tab GT SCH ×2 (09:00→20:59)
[2020-08-20] MEDS: Docusate 100mg/10ml Liq GT SCH (09:17)
[2020-08-20] MEDS: Levothyroxine 125mcg tab GT SCH (09:18)
[2020-08-20] MEDS: Sensipar 30mg Tab GT SCH (09:18)
[2020-08-20] MEDS: Pantoprazole Inj IVP SCH ×2 (09:18→20:59)
[2020-08-20 09:39] LABS: BASOPHILS % (AUTO) 3.5 % (0.0-2.0); EOSINOPHILS % (AUTO) 2.2 % (0.0-3.0); HEMATOCRIT 27.4 % (37.0-47.0); HEMOGLOBIN 9.3 G/DL (12.0-16.0); LYMPHOCYTES % (AUTO) 23.5 % (20.0-45.0); MEAN CORPUSCULAR VOLUME 94 FL (80-99); MONOCYTES % (AUTO) 10.1 % (1.0-10.0); NEUTROPHILS % (AUTO) 60.7 % (45.0-75.0); PLATELET COUNT 115 K/UL (150-450); RED CELL DISTRIBUTION WIDTH 17.8 % (11.6-14.8); WHITE BLOOD COUNT 3.6 K/UL (4.8-10.8)
--- NOTE | 2020-08-20 09:44 | Pre-Procedure Note/Attestation ---
Pre-Procedure Note/Attestation Complete Prior to Procedure Planned Procedure: not applicable Procedure Narrative: esophagogastroduodenoscopy and enteroscopy Indications for Procedure Pre-Operative Diagnosis: gib Attestation I attest that I discussed the nature of the procedure; its benefits; risks and complications; and alternatives (and the risks and benefits of such alternatives), prior to the procedure, with the patient (or the patient's legal in store representative). I attest that, if there was a reasonable possibility of needing a blood transfusion, the patient (or the patient's legal in store representative) was given the [facility] standardized written summary, pursuant to the [place] Blood Safety Act ([place] Health and Safety Code # 1645, as amended). I attest that I re-evaluated the patient just prior to the surgery and that there has been no change in the patient's H&P, except as documented below: David Bosch MD Aug 20, 2020 09:44
[2020-08-20 10:12] LABS: CALCIUM 8.5 MG/DL (8.5-10.1); CREATININE 4.2 MG/DL (0.55-1.30); POTASSIUM 4.6 MMOL/L (3.5-5.1)
[2020-08-20 10:16] LABS: ALBUMIN 2.6 G/DL (3.4-5.0); ALBUMIN/GLOBULIN RATIO 0.8 (1.0-2.7); BILIRUBIN,TOTAL 0.4 MG/DL (0.2-1.0)
[2020-08-20] MEDS ORDERED: NS 500ML IVPB ONE (11:25)
[2020-08-20] MEDS ORDERED: Lidocaine 1% MPF 10mg/ml 5ml ONE (11:30)
--- NOTE | 2020-08-20 11:30 | Anethesia Preoperative Eval ---
Anesthesia Pre-op PMH/ROS General Date of Evaluation: Aug 20, 2020 Anesthesiologist: Umberto ASA Score: ASA 4 Mallampati Score Class I : Soft palate, uvula, fauces, pillars visible Class II: Soft palate, uvula, fauces visible Class III: Soft palate, base of uvula visible Class IV: Only hard plate visible Mallampati Classification: Class III Surgeon: Danitza Diagnosis: GI bleed? Surgical Procedure: EGD Anesthesia History: none Family History: no anesthesia problems Allergies: Coded Allergies: ERYTHROMYCIN BASE (Unverified Allergy, Intermediate, 07/14/19) Per patient not allergic to medications or food Medications: see eMAR Patient NPO?: Yes NPO Date: Aug 20, 2020 NPO Time: 00:00 Past Medical History Cardiovascular: Reports: HTN, CAD, PA, other - CHF; Denies: valve dz, arrhythmia Pulmonary: Reports: COPD; Denies: asthma, SACHIN, other Gastrointestinal/Genitourinary: Reports: GERD, ESRD; Denies: CRI, other Neurologic/Psychiatric: Reports: dementia, CVA, depression/anxiety; Denies: TIA, other Endocrine: Reports: hypothyroidism; Denies: DM, steroids, other HEENT: Denies: cataract (L), cataract (R), glaucoma, [place] (L), [place] (R), other Hematology/Immune: Reports: anemia; Denies: DVT, bleeding disorder, other Musculoskeletal/Integumentary: Denies: OA, RA, DJD, DDD, edema, other PSxH Narrative: Right av shunt, gtube, huong Anesthesia Pre-op Phys. Exam Physician Exam Last Vital Signs Date Time Temp Pulse Resp B/P (MAP) Pulse Ox O2 Delivery O2 Flow Rate FiO2 08/20/20 09:00 78 94/52 08/20/20 08:00 97.9 20 98 08/20/20 07:48 Nasal Cannula 2.0 28 Constitutional: NAD Cardiovascular: RRR Respiratory: CTA Airway Exam Mallampati Score: Class II MO: full ROM: full Anesthesia Pre-op A/P Labs Hematology Test 08/20/20 09:10 White Blood Count 3.6 K/UL (4.8-10.8) L Red Blood Count 2.90 M/UL (4.20-5.40) L Hemoglobin 9.3 G/DL (12.0-16.0) L Hematocrit 27.4 % (37.0-47.0) L Mean Corpuscular Volume 94 FL (80-99) Mean Corpuscular Hemoglobin 32.0 PG (27.0-31.0) H Mean Corpuscular Hemoglobin Concent 33.9 G/DL (32.0-36.0) Red Cell Distribution Width 17.8 % (11.6-14.8) H Platelet Count 115 K/UL (150-450) L Mean Platelet Volume 7.2 FL (6.5-10.1) Neutrophils (%) (Auto) 60.7 % (45.0-75.0) Lymphocytes (%) (Auto) 23.5 % (20.0-45.0) Monocytes (%) (Auto) 10.1 % (1.0-10.0) H Eosinophils (%) (Auto) 2.2 % (0.0-3.0) Basophils (%) (Auto) 3.5 % (0.0-2.0) H Chemistry Test 08/20/20 09:10 Sodium Level 138 MMOL/L (136-145) Potassium Level 4.6 MMOL/L (3.5-5.1) Chloride Level 103 MMOL/L (98-107) Carbon Dioxide Level 28 MMOL/L (21-32) Anion Gap 7 mmol/L (5-15) Blood Urea Nitrogen 29 mg/dL (7-18) H Creatinine 4.2 MG/DL (0.55-1.30) H Estimat Glomerular Filtration Rate 12.6 mL/min (>60) Glucose Level 90 MG/DL (74-106) Calcium Level 8.5 MG/DL (8.5-10.1) Magnesium Level 3.3 MG/DL (1.8-2.4) H Total Bilirubin 0.4 MG/DL (0.2-1.0) Aspartate Amino Transf (AST/SGOT) 38 U/L (15-37) H Alanine Aminotransferase (ALT/SGPT) 28 U/L (12-78) Alkaline Phosphatase 56 U/L (46-116) Total Protein 6.0 G/DL (6.4-8.2) L Albumin 2.6 G/DL (3.4-5.0) L Globulin 3.4 g/dL Albumin/Globulin Ratio 0.8 (1.0-2.7) L Studies Pre-op Studies: EKG - sr Risk Assessment & Plan Assessment: ASA IV Plan: MAC Status Change Before Surgery: No Pre-Antibiotics Drug: N/A Radha Shipman MD Aug 20, 2020 11:30
--- NOTE | 2020-08-20 11:49 | Endoscopy Procedure Note ---
Endoscopy Procedure Note General Indication for Procedure: gib Procedures Performed: other - enteroscopy Operative Findings/Diagnosis: gastritis Specimen: yes Pt Tolerated Procedure Well: Yes Estimated Blood Loss: none Anesthesia Anesthesiologist: katelynn Anesthesia: MAC Inserted Devices Implant(s) used?: No GI Core Measures 50 yrs or older w/o bx or poly: Not Applicable 10yrs. F/U recommended: Not Applicable David Bosch MD Aug 20, 2020 11:49
--- NOTE | 2020-08-20 11:56 | Immediate Post-Op Evaluation ---
Immediate Post-Op Evalulation Immediate Post-Op Evalulation Procedure: EGD Date of Evaluation: Aug 20, 2020 Time of Evaluation: 11:59 IV Fluids: 0 Blood Products: 50 Estimated Blood Loss: 0 Urinary Output: 0 Blood Pressure Systolic: 115 Blood Pressure Diastolic: 57 Pulse Rate: 64 Respiratory Rate: 16 O2 Sat by Pulse Oximetry: 100 Temperature (Fahrenheit): 97.2 Pain Score (1-10): 0 Nausea: No Vomiting: No Complications 00 Patient Status: awake Hydration Status: adequate Drug: N/A Radha Shipman MD Aug 20, 2020 11:56
--- NOTE | 2020-08-20 12:49 | Nephrology Progress Note ---
Assessment/Plan Problem List: (1) ESRD (end stage renal disease) on dialysis (2) Anemia in chronic kidney disease (3) Hypertensive nephrosclerosis (4) Hypercalcemia (5) GI bleed (6) Bronchitis (7) Cirrhosis (8) Sepsis Plan HD 08/18 08/19, transfuse, ppi, hhn, bacteremia staph possible contaminant, await final, vanco Subjective Constitutional: Reports: weakness HEENT: Reports: no symptoms Genitourinary: Reports: no symptoms Neurologic/Psychiatric: Reports: pre-existing deficit Objective Objective Last 24 Hour Vital Signs Date Time Temp Pulse Resp B/P (MAP) Pulse Ox O2 Delivery O2 Flow Rate FiO2 08/20/20 12:16 97.9 65 14 113/51 100 Nasal Cannula 3 08/20/20 12:06 65 14 109/51 100 Nasal Cannula 3 08/20/20 12:01 66 13 110/53 100 Nasal Cannula 3 08/20/20 12:00 78 08/20/20 11:56 64 16 100 08/20/20 11:54 97.8 69 23 115/57 100 Nasal Cannula 3 08/20/20 09:00 78 94/52 08/20/20 09:00 Nasal Cannula 2.0 08/20/20 08:00 70 08/20/20 08:00 97.9 78 20 94/52 (66) 98 08/20/20 07:48 70 18 100 Nasal Cannula 2.0 28 72 18 100 08/20/20 05:56 115/52 08/20/20 05:56 115/52 08/20/20 04:00 97.7 74 20 115/52 (73) 99 08/20/20 04:00 70 08/20/20 03:26 70 16 100 Nasal Cannula 2.0 28 68 16 100 08/20/20 00:00 65 08/20/20 00:00 97.1 70 21 121/56 (77) 100 08/19/20 23:15 70 18 100 Nasal Cannula 2.0 28 70 18 100 08/19/20 21:40 138/61 08/19/20 21:39 71 138/61 08/19/20 21:39 138/61 08/19/20 21:00 Nasal Cannula 2.0 08/19/20 20:00 70 08/19/20 20:00 97.1 71 20 128/61 (83) 98 08/19/20 19:58 70 18 100 Nasal Cannula 2.0 28 69 18 100 08/19/20 16:08 61 08/19/20 16:00 98.2 82 20 108/57 (74) 96 08/19/20 14:00 128/67 08/19/20 14:00 128/67 Intake and Output 08/19/20 08/20/20 19:00 07:00 Intake Total 600 ml Output Total 2000 ml 200 ml Balance -2000 ml 400 ml Intake Oral 600 ml Output Urine Total 200 ml Hemodialysis UF 2000 ml Laboratory Tests 08/20/20 09:10: White Blood Count 3.6L, Red Blood Count 2.90L, Hemoglobin 9.3L, Hematocrit 27.4L , Mean Corpuscular Volume 94, Mean Corpuscular Hemoglobin 32.0H, Mean Corpuscular Hemoglobin Concent 33.9, Red Cell Distribution Width 17.8H, Platelet Count 115L, Mean Platelet Volume 7.2, Neutrophils (%) (Auto) 60.7, Lymphocytes (%) (Auto) 23.5, Monocytes (%) (Auto) 10.1H, Eosinophils (%) (Auto) 2.2, Basophils (%) (Auto) 3.5H, Sodium Level 138, Potassium Level 4.6, Chloride Level 103, Carbon Dioxide Level 28, Anion Gap 7, Blood Urea Nitrogen 29H, Creatinine 4.2H, Estimat Glomerular Filtration Rate 12.6, Glucose Level 90, Calcium Level 8.5, Magnesium Level 3.3H, Total Bilirubin 0.4, Aspartate Amino Transf (AST/SGOT) 38H, Alanine Aminotransferase (ALT/SGPT) 28, Alkaline Phosphatase 56, Total Protein 6.0L, Albumin 2.6L, Globulin 3.4, Albumin/Globulin Ratio 0.8L Height (Feet): 5 Height (Inches): 4.00 Weight (Pounds): 148 General Appearance: no apparent distress, alert EENT: normal ENT inspection Neck: normal alignment Cardiovascular: regular rhythm Respiratory/Chest: lungs clear Abdomen: non tender, soft Extremities: no edema 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
--- NOTE | 2020-08-20 12:56 | NUR ---
CASE MANAGEMENT:REVIEW 08/20/20 SI: SEVERE ANEMIA..S/P 4 UNITS PRBC'S 97.9 78 20 94/52 98% ON 2L/NC WBC-3.6 H/H-9.3/27.4 PLT-115 BUN+29 CR+4.2 IS: IV PROTONIX Q12 LOPRESSOR GT Q12 HYDRALAZINE GT Q8HRS CLONIDINE GT Q8HRS : TELEMETRY STATUS PLAN: EGD FOR TODAY
--- NOTE | 2020-08-20 13:00 | Consultation ---
DATE OF CONSULTATION: 08/20/2020 INFECTIOUS DISEASE CONSULTATION CONSULTING PHYSICIAN: Jessica Reyes MD. REFERRING PHYSICIAN: Chema Hendricks MD. REASON FOR CONSULTATION: Bacteremia. HISTORY OF PRESENTING ILLNESS: This is a 74-year-old lady with history of hypertension, renal failure on dialysis, congestive heart failure, hypothyroidism, and GI bleeding, who came in with decreased p.o. intake. She was found to be anemic with a hemoglobin of 3.7 and Infectious Diseases consultation has been obtained since she had positive blood cultures. PAST MEDICAL HISTORY: 1. History of hypertension. 2. Renal failure, on dialysis. 3. History of AV fistula placement. 4. Congestive heart failure. 5. Hypothyroidism. 6. GI bleeding with diverticulosis. SOCIAL HISTORY: She does not smoke, drink, or use drugs. FAMILY HISTORY: Noncontributory. REVIEW OF SYSTEMS: RESPIRATORY: No fever, chills, cough, shortness of breath, or chest pain. CARDIAC: No chest pain. No palpitation. No dizziness. No syncope. GASTROINTESTINAL: No nausea. No vomiting. No abdominal pain or diarrhea. No blood in the stool. MEDICATIONS: As an inpatient, she is on fentanyl, midazolam, IV vancomycin, [place], levothyroxine, docusate, Sensipar, Protonix, Restoril, metoprolol, albuterol, hydralazine, clonidine, Tylenol. ALLERGIES: To erythromycin noted. PHYSICAL EXAMINATION: VITAL SIGNS: Temperature 97.9, T-max of 98.3, pulse 78, respiratory rate 20, blood pressure 94/52. O2 saturation of 98%. HEENT: Pupils are equally reactive to light and accommodation. Mouth appears clean without thrush. NECK: Supple. No adenopathy. No JVD. CARDIOVASCULAR: Regular rate and rhythm. No murmurs. LUNGS: Clear to auscultation bilaterally. No crackles. No wheezes. ABDOMEN: Soft, nontender. No organomegaly. EXTREMITIES: No cyanosis, no clubbing, no edema. Right arm fistula site is clean. LABORATORY AND DIAGNOSTIC DATA: White count 3.6, hemoglobin 9.3, hematocrit 27.4, MCV 94, platelet count of 115, with neutrophils of 60%. Sodium 138, potassium 4.6, chloride 103, bicarb 28, BUN 29, creatinine 4.2, glucose 90. Calcium 8.5. Total bilirubin 0.4, AST 38, ALT 28, alkaline phosphatase 56. Total protein 6, albumin 2.6. Blood cultures from 08/17/2020 growing Staph species. COVID-19 test was negative. Nasal swab was positive for MRSA. Chest x-ray was unremarkable. ASSESSMENT: This is a 74-year-old lady with history of hypertension, renal failure on dialysis, congestive heart failure, and hypothyroidism, who comes in with anemia and is found to have, 1. Staphylococcus bacteremia. 2. Hypertension. 3. Renal failure, on dialysis. 4. Congestive heart failure. PLAN: 1. Continue IV vancomycin for now. 2. We will order a 2D echocardiogram. 3. We will follow up cultures. I would like to thank Dr. Hendricks for this consultation. Jessica Reyes M.D. DR: NOVA JOB#: [id number] CC:
--- NOTE | 2020-08-20 13:13 | NUR ---
NURSE NOTES: Called [facility] and notified pt is getting dialysis tomorrow. Advised pt room will be 418
--- NOTE | 2020-08-20 13:19 | 48 Hour Post Anesthesia Eval ---
Post Anesthesia Evaluation Procedure: EGD Date of Evaluation: Aug 20, 2020 Airway: patent Nausea: No Vomiting: No Hydration Status: adequate Cardiopulmonary Status: at baseline Mental Status/LOC: patient returned to baseline Follow-up care needed: ready to discharge Radha Shipman MD Aug 20, 2020 13:19
--- NOTE | 2020-08-20 14:00 | NUR ---
NURSE HAND-OFF: Important Events on Shift: EGD completed prior to transfer Patient Status: stable Diet: Renal Pending Orders: Pending Results/Labs: Pending MD notification: Latest Vital Signs: Temperature 97.9 , Pulse 65 , B/P 113 /51 , Respiratory Rate 14 , O2 SAT 100 , Nasal Cannula, O2 Flow Rate 3 . Vital Sign Comment: Latest Virgen Fall Score: 45 Fall Risk: High Risk Safety Measures: Call light Within Reach, Bed Alarm Zone 1, Side Rails Side Rails x2, Bed position Low and Locked. Fall Precautions: Yellow Socks Yellow Gown Door Sign Patient Fall Education Report given to Cheryl NUNEZ
--- NOTE | 2020-08-20 14:05 | NUR ---
NURSE NOTES: Patient received from tele unit from ENRIQUE Robb at 1435, Pt awake in bed, alert and oriented x 3-4, no SOB, bed in lowest position with breaks engaged and alarm on, denies any pain at this time, skin check performed, no pressure sore present on any body part, belongings checked with transferring nurse, on room air, AV shunt present of RAEGAN. Will continue to monitor and proceed with plan of care. Call light within reach.
--- NOTE | 2020-08-20 15:36 | General Progress Note ---
Subjective ROS Limited/Unobtainable: No Constitutional: Reports: malaise, weakness HEENT: Reports: no symptoms Cardiovascular: Reports: no symptoms Respiratory: Reports: no symptoms Gastrointestinal/Abdominal: Reports: poor appetite, poor fluid intake Allergies: Coded Allergies: ERYTHROMYCIN BASE (Unverified Allergy, Intermediate, 07/14/19) Per patient not allergic to medications or food All Systems: reviewed and negative except above Subjective no events. w/o complaints. had pain with HD. no melena or brbpr. stool OB+ . no fever or chills. no sob. +blood cultures noted. on iv abx. ID consult appreciated Objective Last 24 Hour Vital Signs Date Time Temp Pulse Resp B/P (MAP) Pulse Ox O2 Delivery O2 Flow Rate FiO2 08/20/20 13:11 113/51 08/20/20 13:11 113/51 08/20/20 12:16 97.9 65 14 113/51 100 Nasal Cannula 3 08/20/20 12:06 65 14 109/51 100 Nasal Cannula 3 08/20/20 12:01 66 13 110/53 100 Nasal Cannula 3 08/20/20 12:00 78 08/20/20 11:56 64 16 100 08/20/20 11:54 97.8 69 23 115/57 100 Nasal Cannula 3 08/20/20 09:00 78 94/52 08/20/20 09:00 Nasal Cannula 2.0 08/20/20 08:00 70 08/20/20 08:00 97.9 78 20 94/52 (66) 98 08/20/20 07:48 70 18 100 Nasal Cannula 2.0 28 72 18 100 08/20/20 05:56 115/52 08/20/20 05:56 115/52 08/20/20 04:00 97.7 74 20 115/52 (73) 99 08/20/20 04:00 70 08/20/20 03:26 70 16 100 Nasal Cannula 2.0 28 68 16 100 08/20/20 00:00 65 08/20/20 00:00 97.1 70 21 121/56 (77) 100 08/19/20 23:15 70 18 100 Nasal Cannula 2.0 28 70 18 100 08/19/20 21:40 138/61 08/19/20 21:39 71 138/61 10/1/20 21:39 138/61 08/19/20 21:00 Nasal Cannula 2.0 08/19/20 20:00 70 08/19/20 20:00 97.1 71 20 128/61 (83) 98 08/19/20 19:58 70 18 100 Nasal Cannula 2.0 28 69 18 100 08/19/20 16:08 61 08/19/20 16:00 98.2 82 20 108/57 (74) 96 Intake and Output 08/19/20 08/20/20 19:00 07:00 Intake Total 600 ml Output Total 2000 ml 200 ml Balance -2000 ml 400 ml Intake Oral 600 ml Output Urine Total 200 ml Hemodialysis UF 2000 ml Laboratory Tests 08/20/20 09:10: White Blood Count 3.6L, Red Blood Count 2.90L, Hemoglobin 9.3L, Hematocrit 27.4L , Mean Corpuscular Volume 94, Mean Corpuscular Hemoglobin 32.0H, Mean Corpuscular Hemoglobin Concent 33.9, Red Cell Distribution Width 17.8H, Platelet Count 115L, Mean Platelet Volume 7.2, Neutrophils (%) (Auto) 60.7, Lymphocytes (%) (Auto) 23.5, Monocytes (%) (Auto) 10.1H, Eosinophils (%) (Auto) 2.2, Basophils (%) (Auto) 3.5H, Sodium Level 138, Potassium Level 4.6, Chloride Level 103, Carbon Dioxide Level 28, Anion Gap 7, Blood Urea Nitrogen 29H, Creatinine 4.2H, Estimat Glomerular Filtration Rate 12.6, Glucose Level 90, Calcium Level 8.5, Magnesium Level 3.3H, Total Bilirubin 0.4, Aspartate Amino Transf (AST/SGOT) 38H, Alanine Aminotransferase (ALT/SGPT) 28, Alkaline Phosphatase 56, Total Protein 6.0L, Albumin 2.6L, Globulin 3.4, Albumin/Globulin Ratio 0.8L Height (Feet): 5 Height (Inches): 4.00 Weight (Pounds): 148 Objective General Appearance: WD/WN, alert EENT: normal ENT inspection Neck: non-tender, normal alignment, supple Cardiovascular: normal peripheral pulses, normal rate, regular rhythm Respiratory/Chest: chest wall non-tender, lungs clear, normal breath sounds, no respiratory distress Abdomen: normal bowel sounds, non tender, soft, no organomegaly Extremities: normal range of motion Edema: no edema noted Arm (L), no edema noted Arm (R) 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, alert, responsive Skin: normal pigmentation Assessment/Plan Problem List: (1) CKD (chronic kidney disease) stage 4, GFR 15-29 ml/min ICD Codes: N18.4 - Chronic kidney disease, stage 4 (severe) SNOMED: 168837380 (2) End-stage renal disease ICD Codes: N18.6 - End stage renal disease SNOMED: 34045351 (3) Hypothyroidism ICD Codes: E03.9 - Hypothyroidism SNOMED: 51228196 (4) Fever ICD Codes: R50.9 - Fever, unspecified SNOMED: 426813108 (5) Anemia in chronic kidney disease ICD Codes: N18.9 - Chronic kidney disease, unspecified; D63.1 - Anemia in chronic kidney disease SNOMED: 724484323 (6) GI bleed ICD Codes: K92.2 - Gastrointestinal hemorrhage, unspecified SNOMED: 96690801 (7) History of GI bleed ICD Codes: Z87.19 - Personal history of other diseases of the digestive system SNOMED: 735666082 (8) CHF exacerbation ICD Codes: I50.9 - Heart failure, unspecified SNOMED: 833544692, 59776962924549 (9) ESRD (end stage renal disease) on dialysis ICD Codes: N18.6 - End stage renal disease; Z99.2 - Dependence on renal dialysis SNOMED: 459946258 Status: stable Assessment/Plan: monitor h/h transfuse as needed endoscopy per GI monitor for bleeding PPI rx heme consult pending ?bone marrow iv abx follow up cultures ID eval appreciated HD per renal d/w dtr Chema Brown MD Aug 20, 2020 15:36
--- NOTE | 2020-08-20 15:48 | NUR ---
NURSE NOTES: Called [facility] and spoke to Stanley in [facility] to HD order for patient on 08/21/20.
--- NOTE | 2020-08-20 16:15 | Procedure Note ---
DATE OF PROCEDURE: 08/20/2020 SURGEON: David Bosch MD. PROCEDURE: Enteroscopy. ANESTHESIA: Per Dr. Shipman. INSTRUMENT: Olympus pediatric colonoscope. INDICATION: GI bleed. REASON FOR PROCEDURE: The procedure, risks, benefits, and possible consequences, including hemorrhage, aspiration, perforation and infection, and alternative treatments, were explained to the patient/legal guardian by Dr. David Bosch and the patient/legal guardian understood and accepted these risks. DESCRIPTION OF PROCEDURE: After informed consent was obtained and the patient was adequately sedated, pediatric colonoscope was advanced from mouth into the small bowel. We advanced all the way to the ligament of Treitz. There was no evidence of active bleeding in upper GI as far as we were able to advance the scope. There was some mucosal changes in the antrum of the stomach suspicious for gastritis. Some scar tissue in that area, also may be healing ulcer in that area. Biopsy from this area was obtained. The rest of the examination grossly within normal limits. SUMMARY OF FINDINGS: Status post enteroscopy without any findings source for acute upper GI bleeding. RECOMMENDATIONS: The patient's hemoglobin and hematocrit to be monitored closely and transfuse to keep hemoglobin above 7. If the patient rebleeds, might need either tagged RBC scan or CT angio for further evaluation. I want to thank Dr. Rao for this kind referral. David Bosch M.D. DR: NICOL JOB#: [id number] CC: Mina Rao MD.; Fax#: [phone]
--- NOTE | 2020-08-20 19:22 | NUR ---
NURSE HAND-OFF: Important Events on Shift:[monitoring I and O, new IV line on left wrist, dialysis tomorrow] Patient Status: [stable] Diet: [reg renal diet] Pending Orders: [] Pending Results/Labs:[] Pending MD notification:[] Latest Vital Signs: Temperature 99.5 , Pulse 90 , B/P 123 /64 , Respiratory Rate 20 , O2 SAT 94 , Room Air, O2 Flow Rate . Vital Sign Comment: [] Latest Virgen Fall Score: 80 Fall Risk: High Risk Safety Measures: Call light Within Reach, Bed Alarm Zone 2, Side Rails Side Rails x3, Bed position Low and Locked. Fall Precautions: Yellow Socks Patient Fall Education Report given to [ENRIQUE Wise]
--- NOTE | 2020-08-20 19:30 | NUR ---
NURSE NOTES: The patient is alert and oriented x4 and does not seem to be in any distress at this time.She is on room air with Resp even and unlabored.The patient is status dialysis and has a R.upper arm AV shunt for dialysis access. The Bruit and thrill both present on assessment.She has a L. Wrist 24g saline log that is patent and asymptomatic. She is on bedrest and the bed in low level, call light within easy reach, siderails up x2. Will continue to monitor as indicated
[2020-08-20] MEDS ORDERED: Tubing IV Blood Pump IV ONE (22:34)
[2020-08-21] VITALS: BP 129/55
--- NOTE | 2020-08-21 01:36 | Cardiology Progress Note ---
Subjective DATE OF SERVICE: Aug 20, 2020 Now bacteremic with S.aureus. s/p PRBC transfusions - hemoglobin increased from 3.7 to 8.3, and remains stable. No c/o CP or SOB EGD did not reveal any acute findings or bleeding source Objective Last 24 Hour Vital Signs Date Time Temp Pulse Resp B/P (MAP) Pulse Ox O2 Delivery O2 Flow Rate FiO2 08/21/20 00:00 98.8 73 20 129/55 (79) 97 08/20/20 23:35 74 20 100 Room Air 21 69 18 97 08/20/20 21:05 127/73 08/20/20 21:05 127/73 08/20/20 21:00 Nasal Cannula 2.0 08/20/20 20:59 71 127/73 08/20/20 20:00 99.0 71 20 127/73 (91) 97 08/20/20 19:28 68 18 100 Room Air 21 66 16 98 08/20/20 16:01 65 18 100 Room Air 21 68 18 98 08/20/20 16:00 97.1 77 20 119/61 (80) 98 08/20/20 13:11 113/51 08/20/20 13:11 113/51 08/20/20 12:16 97.9 65 14 113/51 100 Nasal Cannula 3 08/20/20 12:06 65 14 109/51 100 Nasal Cannula 3 08/20/20 12:01 66 13 110/53 100 Nasal Cannula 3 08/20/20 12:00 78 08/20/20 11:56 64 16 100 08/20/20 11:54 97.8 69 23 115/57 100 Nasal Cannula 3 08/20/20 09:00 78 94/52 08/20/20 09:00 Nasal Cannula 2.0 08/20/20 08:00 70 08/20/20 08:00 97.9 78 20 94/52 (66) 98 08/20/20 07:48 70 18 100 Nasal Cannula 2.0 28 72 18 100 08/20/20 05:56 115/52 08/20/20 05:56 115/52 08/20/20 04:00 97.7 74 20 115/52 (73) 99 08/20/20 04:00 70 08/20/20 03:26 70 16 100 Nasal Cannula 2.0 28 68 16 100 ROS: Unchanged from my evaluation of 9/29/20. HEENT: normal ENT inspection RHYTHM: NSR, PACs LUNGS: lungs clear bilaterally, diminished breath sounds CARDIAC: normal rate, regular rhythm, normal S1 and S2, systolic murmur - 1/6 systolic murmur at base ABDOMEN: normal bowel sounds, non tender, soft, no organomegaly EXTREMITIES: normal range of motion, trace edema Laboratory Tests Test 08/20/20 09:10 White Blood Count 3.6 K/UL (4.8-10.8) L Red Blood Count 2.90 M/UL (4.20-5.40) L Hemoglobin 9.3 G/DL (12.0-16.0) L Hematocrit 27.4 % (37.0-47.0) L Mean Corpuscular Volume 94 FL (80-99) Mean Corpuscular Hemoglobin 32.0 PG (27.0-31.0) H Mean Corpuscular Hemoglobin Concent 33.9 G/DL (32.0-36.0) Red Cell Distribution Width 17.8 % (11.6-14.8) H Platelet Count 115 K/UL (150-450) L Mean Platelet Volume 7.2 FL (6.5-10.1) Neutrophils (%) (Auto) 60.7 % (45.0-75.0) Lymphocytes (%) (Auto) 23.5 % (20.0-45.0) Monocytes (%) (Auto) 10.1 % (1.0-10.0) H Eosinophils (%) (Auto) 2.2 % (0.0-3.0) Basophils (%) (Auto) 3.5 % (0.0-2.0) H Sodium Level 138 MMOL/L (136-145) Potassium Level 4.6 MMOL/L (3.5-5.1) Chloride Level 103 MMOL/L (98-107) Carbon Dioxide Level 28 MMOL/L (21-32) Anion Gap 7 mmol/L (5-15) Blood Urea Nitrogen 29 mg/dL (7-18) H Creatinine 4.2 MG/DL (0.55-1.30) H Estimat Glomerular Filtration Rate 12.6 mL/min (>60) Glucose Level 90 MG/DL (74-106) Calcium Level 8.5 MG/DL (8.5-10.1) Magnesium Level 3.3 MG/DL (1.8-2.4) H Total Bilirubin 0.4 MG/DL (0.2-1.0) Aspartate Amino Transf (AST/SGOT) 38 U/L (15-37) H Alanine Aminotransferase (ALT/SGPT) 28 U/L (12-78) Alkaline Phosphatase 56 U/L (46-116) Total Protein 6.0 G/DL (6.4-8.2) L Albumin 2.6 G/DL (3.4-5.0) L Globulin 3.4 g/dL Albumin/Globulin Ratio 0.8 (1.0-2.7) L Microbiology Date/Time Source Procedure Growth Status 08/19/20 02:45 Nasal Nares Left MRSA Culture - Final Staphylococcus Aureus - Mrsa Complete Assessment/Plan Assessment/Plan S. aureus bacteremia with increased risk for endocarditis Severe anemia ESRD Hx g-tube Hypertension/HHD Hx hypothyroidism - now euthyroid Chronic diastolic CHF Cerebrovascular disease PRBC tx for hemoglobin below 7 Epogen and vitamin suppl No anti-plt rx HD/UF Titrate anti-HTN regimen Abx per ID Review 2D Echocardiogram Lance Rivas MD Aug 21, 2020 01:36
[2020-08-21] MEDS: Albuterol ud Inhalation HHN SCH ×6 (03:00→23:19)
[2020-08-21 04:00] VITALS: BP 145/63
[2020-08-21] MEDS: cloNIDine 0.2mg Tab GT SCH ×3 (05:47→21:55)
[2020-08-21] MEDS: HydrALAZINE 50mg tab GT SCH ×2 (05:47→21:55)
--- NOTE | 2020-08-21 07:35 | NUR ---
HAND-OFF: Report given to Татьяна NUNEZ.
--- NOTE | 2020-08-21 07:51 | General Progress Note ---
Subjective ROS Limited/Unobtainable: Yes Allergies: Coded Allergies: ERYTHROMYCIN BASE (Unverified Allergy, Intermediate, 07/14/19) Per patient not allergic to medications or food Objective Last 24 Hour Vital Signs Date Time Temp Pulse Resp B/P (MAP) Pulse Ox O2 Delivery O2 Flow Rate FiO2 08/21/20 05:47 145/63 08/21/20 05:47 145/63 08/21/20 04:00 98.1 81 21 145/63 (90) 98 08/21/20 00:00 98.8 73 20 129/55 (79) 97 08/20/20 23:35 74 20 100 Room Air 21 69 18 97 08/20/20 21:05 127/73 08/20/20 21:05 127/73 08/20/20 21:00 Nasal Cannula 2.0 08/20/20 20:59 71 127/73 08/20/20 20:00 99.0 71 20 127/73 (91) 97 08/20/20 19:28 68 18 100 Room Air 21 66 16 98 08/20/20 16:01 65 18 100 Room Air 21 68 18 98 08/20/20 16:00 97.1 77 20 119/61 (80) 98 08/20/20 13:11 113/51 08/20/20 13:11 113/51 08/20/20 12:16 97.9 65 14 113/51 100 Nasal Cannula 3 08/20/20 12:06 65 14 109/51 100 Nasal Cannula 3 08/20/20 12:01 66 13 110/53 100 Nasal Cannula 3 08/20/20 12:00 78 08/20/20 11:56 64 16 100 08/20/20 11:54 97.8 69 23 115/57 100 Nasal Cannula 3 08/20/20 09:00 78 94/52 08/20/20 09:00 Nasal Cannula 2.0 08/20/20 08:00 70 08/20/20 08:00 97.9 78 20 94/52 (66) 98 Intake and Output 08/20/20 08/21/20 19:00 07:00 Intake Total 220 ml 80 ml Balance 220 ml 80 ml Intake Oral 120 ml 80 ml IV Total 100 ml # Voids 1 2 Laboratory Tests 08/20/20 09:10: White Blood Count 3.6L, Red Blood Count 2.90L, Hemoglobin 9.3L, Hematocrit 27.4L , Mean Corpuscular Volume 94, Mean Corpuscular Hemoglobin 32.0H, Mean Corpuscular Hemoglobin Concent 33.9, Red Cell Distribution Width 17.8H, Platelet Count 115L, Mean Platelet Volume 7.2, Neutrophils (%) (Auto) 60.7, Lymphocytes (%) (Auto) 23.5, Monocytes (%) (Auto) 10.1H, Eosinophils (%) (Auto) 2.2, Basophils (%) (Auto) 3.5H, Sodium Level 138, Potassium Level 4.6, Chloride Level 103, Carbon Dioxide Level 28, Anion Gap 7, Blood Urea Nitrogen 29H, Creatinine 4.2H, Estimat Glomerular Filtration Rate 12.6, Glucose Level 90, Calcium Level 8.5, Magnesium Level 3.3H, Total Bilirubin 0.4, Aspartate Amino Transf (AST/SGOT) 38H, Alanine Aminotransferase (ALT/SGPT) 28, Alkaline Phosphatase 56, Total Protein 6.0L, Albumin 2.6L, Globulin 3.4, Albumin/Globulin Ratio 0.8L Height (Feet): 5 Height (Inches): 4.00 Weight (Pounds): 148 General Appearance: no apparent distress EENT: normal ENT inspection Neck: supple Cardiovascular: normal rate Respiratory/Chest: decreased breath sounds Abdomen: normal bowel sounds, non tender, soft Extremities: non-tender Assessment/Plan Status: stable Assessment/Plan: Assessment - recurrent severe Anemia, at least partly due to ESRD - s/p recent negative EGD/Colonoscopy/capsule endoscopy - no Sx of GIB, and no Iron deficiency - ? Bone marrow d/o - but now OB (+) --> for EGD/SB enteroscopy today - recurrent anorexia - ESRD - h/o CHF - RAD Recommendations - check labs - consider hematology eval - s/p enteroscopy -on renal diet -recent labs and notes reviewed -cbc in David Hummel MD Aug 21, 2020 07:51
[2020-08-21 08:00] VITALS: BP 154/62
--- NOTE | 2020-08-21 08:00 | NUR ---
NURSE NOTES: Patient awake and alert and oriented, respirations unlabored. Saline lock intact and patent to the upper left arm. Right upper arm with dialysis shunt with strong bruit and thrill.Patient sitting up in bed and eating breakfast.Bed alarm on,call light within reach.
[2020-08-21] MEDS: Metoprolol Tartrate 50mg tab GT SCH ×2 (09:00→21:56)
[2020-08-21 09:12] LABS: EOSINOPHILS % (AUTO) 2.4 % (0.0-3.0); HEMATOCRIT 24.4 % (37.0-47.0); HEMOGLOBIN 8.3 G/DL (12.0-16.0); LYMPHOCYTES % (AUTO) 16.2 % (20.0-45.0); MEAN CORPUSCULAR VOLUME 94 FL (80-99); MONOCYTES % (AUTO) 10.5 % (1.0-10.0); NEUTROPHILS % (AUTO) 69.9 % (45.0-75.0); PLATELET COUNT 124 K/UL (150-450); RED CELL DISTRIBUTION WIDTH 17.7 % (11.6-14.8); WHITE BLOOD COUNT 3.9 K/UL (4.8-10.8)
[2020-08-21] MEDS: Levothyroxine 125mcg tab GT SCH (09:33)
[2020-08-21] MEDS: Pantoprazole Inj IVP SCH ×2 (09:35→21:56)
[2020-08-21] MEDS: Sensipar 30mg Tab GT SCH (09:35)
[2020-08-21] MEDS: Docusate 100mg/10ml Liq GT SCH (09:39)
--- NOTE | 2020-08-21 10:53 | Nephrology Progress Note ---
Assessment/Plan Problem List: (1) ESRD (end stage renal disease) on dialysis (2) Anemia in chronic kidney disease (3) Hypertensive nephrosclerosis (4) Hypercalcemia (5) GI bleed (6) Bronchitis (7) Cirrhosis (8) Sepsis Plan HD 08/18 08/19,08/21 transfuse, ppi, hhn, bacteremia staph possible contaminant, await final, vanco, GI eval Subjective HEENT: Reports: no symptoms Genitourinary: Reports: incontinence Neurologic/Psychiatric: Reports: pre-existing deficit Objective Objective Last 24 Hour Vital Signs Date Time Temp Pulse Resp B/P (MAP) Pulse Ox O2 Delivery O2 Flow Rate FiO2 08/21/20 09:00 69 117/78 08/21/20 08:40 67 18 100 Room Air 21 69 18 96 08/21/20 05:47 145/63 08/21/20 05:47 145/63 08/21/20 04:00 98.1 81 21 145/63 (90) 98 08/21/20 00:00 98.8 73 20 129/55 (79) 97 08/20/20 23:35 74 20 100 Room Air 21 69 18 97 08/20/20 21:05 127/73 08/20/20 21:05 127/73 08/20/20 21:00 Nasal Cannula 2.0 08/20/20 20:59 71 127/73 08/20/20 20:00 99.0 71 20 127/73 (91) 97 08/20/20 19:28 68 18 100 Room Air 21 66 16 98 08/20/20 16:01 65 18 100 Room Air 21 68 18 98 08/20/20 16:00 97.1 77 20 119/61 (80) 98 08/20/20 13:11 113/51 08/20/20 13:11 113/51 08/20/20 12:16 97.9 65 14 113/51 100 Nasal Cannula 3 08/20/20 12:06 65 14 109/51 100 Nasal Cannula 3 08/20/20 12:01 66 13 110/53 100 Nasal Cannula 3 08/20/20 12:00 78 08/20/20 11:56 64 16 100 08/20/20 11:54 97.8 69 23 115/57 100 Nasal Cannula 3 Intake and Output 08/20/20 08/21/20 19:00 07:00 Intake Total 220 ml 80 ml Balance 220 ml 80 ml Intake Oral 120 ml 80 ml IV Total 100 ml # Voids 1 2 Laboratory Tests 08/21/20 08:50: White Blood Count 3.9L, Red Blood Count 2.60L, Hemoglobin 8.3L, Hematocrit 24.4L , Mean Corpuscular Volume 94, Mean Corpuscular Hemoglobin 32.1H, Mean Corpuscular Hemoglobin Concent 34.2, Red Cell Distribution Width 17.7H, Platelet Count 124L, Mean Platelet Volume 6.6, Neutrophils (%) (Auto) 69.9, Lymphocytes (%) (Auto) 16.2L, Monocytes (%) (Auto) 10.5H, Eosinophils (%) (Auto) 2.4, Ba sophils (%) (Auto) 1.0, Random Vancomycin Level 20.9 Height (Feet): 5 Height (Inches): 4.00 Weight (Pounds): 148 General Appearance: no apparent distress EENT: normal ENT inspection Neck: supple Cardiovascular: regular rhythm Respiratory/Chest: lungs clear Abdomen: non tender Extremities: no edema Neurologic: motor weakness, disoriented Jose Lemus MD Aug 21, 2020 10:53
[2020-08-21 12:00] VITALS: BP 117/54
--- NOTE | 2020-08-21 12:45 | NUR ---
RD ASSESSMENT & RECOMMENDATIONS SEE CARE ACTIVITY FOR COMPLETE ASSESSMENT DAILY ESTIMATED NEEDS: Needs based on ESRD on HD 55kg abw 30-35 kcals/kg 2906-9056 total kcals 1.2-1.8 g protein/kg 66-99 g total protein Fluid per MD, on HD mL/kg NUTRITION DIAGNOSIS: Altered nutrition related lab values R/T esrd, on HD as evidenced by creat 4.2, elev BNP (53910) CURRENT DIET:RENAL PO DIET RECOMMENDATIONS: RENAL DIET/ Texture as tolerated or per SENIOR PENSIONS ADMINISTRATOR ADDITIONAL RECOMMENDATIONS: 1) Daily calibrated bedscale wt 2) Record % intake of meals in EMR (not updated since 08/18) 3) SENIOR PENSIONS ADMINISTRATOR evaluation for appropriate texture- h/o PEG, now removed - pt missing many teeth 4) Monitor lytes- K and phos wnl 5) Nephrovite x 1 .
--- NOTE | 2020-08-21 13:36 | General Progress Note ---
Subjective ROS Limited/Unobtainable: No Constitutional: Reports: malaise, weakness HEENT: Reports: no symptoms Cardiovascular: Reports: no symptoms Respiratory: Reports: no symptoms Gastrointestinal/Abdominal: Reports: poor appetite, poor fluid intake Genitourinary: Reports: no symptoms Neurologic/Psychiatric: Reports: pre-existing deficit Endocrine: Reports: no symptoms Hematologic/Lymphatic: Reports: anemia Allergies: Coded Allergies: ERYTHROMYCIN BASE (Unverified Allergy, Intermediate, 07/14/19) Per patient not allergic to medications or food All Systems: reviewed and negative except above Subjective no events. w/o complaints. feels "fine." no melena or brbpr. stool OB+ . no fever or chills. no sob. +blood cultures noted. on iv abx. echo neg for veg. h/h slightly lower. Objective Last 24 Hour Vital Signs Date Time Temp Pulse Resp B/P (MAP) Pulse Ox O2 Delivery O2 Flow Rate FiO2 08/21/20 09:00 Nasal Cannula 2.0 08/21/20 09:00 69 117/78 08/21/20 08:40 67 18 100 Room Air 21 69 18 96 08/21/20 08:00 98.9 69 18 154/62 (92) 97 08/21/20 05:47 145/63 08/21/20 05:47 145/63 08/21/20 04:00 98.1 81 21 145/63 (90) 98 08/21/20 00:00 98.8 73 20 129/55 (79) 97 08/20/20 23:35 74 20 100 Room Air 21 69 18 97 08/20/20 21:05 127/73 08/20/20 21:05 127/73 08/20/20 21:00 Nasal Cannula 2.0 08/20/20 20:59 71 127/73 08/20/20 20:00 99.0 71 20 127/73 (91) 97 08/20/20 19:28 68 18 100 Room Air 21 66 16 98 08/20/20 16:01 65 18 100 Room Air 21 68 18 98 08/20/20 16:00 97.1 77 20 119/61 (80) 98 Intake and Output 08/20/20 08/21/20 19:00 07:00 Intake Total 220 ml 80 ml Balance 220 ml 80 ml Intake Oral 120 ml 80 ml IV Total 100 ml # Voids 1 2 Laboratory Tests 08/21/20 08:50: White Blood Count 3.9L, Red Blood Count 2.60L, Hemoglobin 8.3L, Hematocrit 24.4L , Mean Corpuscular Volume 94, Mean Corpuscular Hemoglobin 32.1H, Mean Corpuscular Hemoglobin Concent 34.2, Red Cell Distribution Width 17.7H, Platelet Count 124L, Mean Platelet Volume 6.6, Neutrophils (%) (Auto) 69.9, Lymphocytes (%) (Auto) 16.2L, Monocytes (%) (Auto) 10.5H, Eosinophils (%) (Auto) 2.4, Basophils (%) (Auto) 1.0, Random Vancomycin Level 20.9 Height (Feet): 5 Height (Inches): 4.00 Weight (Pounds): 148 Objective General Appearance: WD/WN, alert EENT: normal ENT inspection Neck: non-tender, normal alignment, supple Cardiovascular: normal peripheral pulses, normal rate, regular rhythm Respiratory/Chest: chest wall non-tender, lungs clear, normal breath sounds, no respiratory distress Abdomen: normal bowel sounds, non tender, soft, no organomegaly Extremities: normal range of motion Edema: no edema noted Arm (L), no edema noted Arm (R) Neurologic: security management specialist II-XII grossly normal, alert, responsive Skin: normal pigmentation Assessment/Plan Problem List: (1) CKD (chronic kidney disease) stage 4, GFR 15-29 ml/min ICD Codes: N18.4 - Chronic kidney disease, stage 4 (severe) SNOMED: 071847005 (2) End-stage renal disease ICD Codes: N18.6 - End stage renal disease SNOMED: 18989601 (3) Hypothyroidism ICD Codes: E03.9 - Hypothyroidism SNOMED: 68311634 (4) Fever ICD Codes: R50.9 - Fever, unspecified SNOMED: 639045546 (5) Anemia in chronic kidney disease ICD Codes: N18.9 - Chronic kidney disease, unspecified; D63.1 - Anemia in chronic kidney disease SNOMED: 773351827 (6) GI bleed ICD Codes: K92.2 - Gastrointestinal hemorrhage, unspecified SNOMED: 28914053 (7) History of GI bleed ICD Codes: Z87.19 - Personal history of other diseases of the digestive system SNOMED: 814014763 (8) CHF exacerbation ICD Codes: I50.9 - Heart failure, unspecified SNOMED: 842713465, 26340971823186 (9) ESRD (end stage renal disease) on dialysis ICD Codes: N18.6 - End stage renal disease; Z99.2 - Dependence on renal dialysis SNOMED: 929482680 Status: stable Assessment/Plan: monitor h/h transfuse as needed monitor for bleeding PPI rx heme consult pending ?bone marrow iv abx follow up cultures HD per renal UChema bran MD Aug 21, 2020 13:36
[2020-08-21] MEDS ORDERED: HydrALAZINE 25mg tab GT SCH (14:00)
[2020-08-21 16:00] VITALS: BP 129/67
--- NOTE | 2020-08-21 17:51 | NUR ---
NURSE NOTES: Patient resting.Dialysis Nurse is here and patient will be next to receive Dialysis as ordered.Right upper arm dialysis shunt remains with strong bruit and thrill.Bed alarm on,call light within reach.
--- NOTE | 2020-08-21 19:28 | NUR ---
NURSE NOTES: The resident is currently undergoing dialysis with the Dialysis nurse and does not seem to be in any acute distress at this time.Will continue to monitor.
--- NOTE | 2020-08-21 19:38 | NUR ---
NURSE HAND-OFF: Frandy NUNEZ Important Events on Shift:[] Patient Status: [] Diet: [Renal diet] Pending Orders: [ Dialysis 08/21/20 due Pending Results/Labs:[] Pending MD notification:[] Latest Vital Signs: Temperature 98.0 , Pulse 79 , B/P 129 /67 , Respiratory Rate 19 , O2 SAT 98 , Nasal Cannula, O2 Flow Rate 2.0 . Vital Sign Comment: [] Latest Virgen Fall Score: 45 Fall Risk: High Risk Safety Measures: Call light Within Reach, Bed Alarm Zone 1, Side Rails Side Rails x2, Bed position Low and Locked. Fall Precautions: Y Yellow Socks Y Yellow Gown y Door Sign Y Patient Fall Education Report given to [].
[2020-08-21 20:00] VITALS: BP 175/67
--- NOTE | 2020-08-21 21:28 | NUR ---
NURSE NOTES: The patient completed dialysis is alert and stable. According to the dialysis nurse, 1.5 liters of water was taken out well tolerated.She is alert and stable but will continue to monitor as indicated
[2020-08-21] MEDS: HYDROcodone/Acetamin 10/325 tab GT PRN (23:14)
--- NOTE | 2020-08-21 23:29 | Cardiology Progress Note ---
Subjective DATE OF SERVICE: Aug 21, 2020 s/p PRBC transfusions - hemoglobin increased from 3.7 to 8.3, and remains stable. No c/o CP or SOB EGD did not reveal any acute findings or bleeding source 2D Echo without signs of vegetation Episodes of BP spikes noted. Objective Last 24 Hour Vital Signs Date Time Temp Pulse Resp B/P (MAP) Pulse Ox O2 Delivery O2 Flow Rate FiO2 08/21/20 23:19 75 16 100 Room Air 21 71 15 99 08/21/20 21:56 71 175/67 08/21/20 21:55 175/67 08/21/20 21:55 175/67 08/21/20 21:00 Nasal Cannula 2.0 08/21/20 20:00 98.2 71 20 175/67 (103) 96 08/21/20 19:34 71 16 100 Room Air 21 67 18 99 08/21/20 16:00 98.0 79 19 129/67 (87) 98 08/21/20 12:07 75 18 100 Room Air 21 74 18 99 08/21/20 12:00 97.5 71 17 117/54 (75) 95 08/21/20 09:00 Nasal Cannula 2.0 08/21/20 09:00 69 117/78 08/21/20 08:40 67 18 100 Room Air 21 69 18 96 08/21/20 08:00 98.9 69 18 154/62 (92) 97 08/21/20 05:47 145/63 08/21/20 05:47 145/63 08/21/20 04:00 98.1 81 21 145/63 (90) 98 08/21/20 00:00 98.8 73 20 129/55 (79) 97 08/20/20 23:35 74 20 100 Room Air 21 69 18 97 ROS: Unchanged from my evaluation of 08/17/20. HEENT: normal ENT inspection RHYTHM: NSR, PACs LUNGS: lungs clear bilaterally, diminished breath sounds CARDIAC: normal rate, regular rhythm, normal S1 and S2, systolic murmur - 1/6 systolic murmur at base ABDOMEN: normal bowel sounds, non tender, soft, no organomegaly EXTREMITIES: normal range of motion, trace edema Laboratory Tests Test 08/21/20 08:50 White Blood Count 3.9 K/UL (4.8-10.8) L Red Blood Count 2.60 M/UL (4.20-5.40) L Hemoglobin 8.3 G/DL (12.0-16.0) L Hematocrit 24.4 % (37.0-47.0) L Mean Corpuscular Volume 94 FL (80-99) Mean Corpuscular Hemoglobin 32.1 PG (27.0-31.0) H Mean Corpuscular Hemoglobin Concent 34.2 G/DL (32.0-36.0) Red Cell Distribution Width 17.7 % (11.6-14.8) H Platelet Count 124 K/UL (150-450) L Mean Platelet Volume 6.6 FL (6.5-10.1) Neutrophils (%) (Auto) 69.9 % (45.0-75.0) Lymphocytes (%) (Auto) 16.2 % (20.0-45.0) L Monocytes (%) (Auto) 10.5 % (1.0-10.0) H Eosinophils (%) (Auto) 2.4 % (0.0-3.0) Basophils (%) (Auto) 1.0 % (0.0-2.0) Random Vancomycin Level 20.9 ug/mL Microbiology Date/Time Source Procedure Growth Status 08/19/20 02:45 Rectum - Final NO CARBAPENEM-RESISTANT ENTEROBACTERI... Complete 08/19/20 02:45 Nasal Nares Left MRSA Culture - Final Staphylococcus Aureus - Mrsa Complete Assessment/Plan Assessment/Plan S.aureus bacteremia; low likelihood of endocarditis by echo criteria. Severe anemia ESRD Hx g-tube Hypertension/HHD Hx hypothyroidism - now euthyroid Chronic diastolic CHF Cerebrovascular disease PRBC tx for hemoglobin below 7 Epogen and vitamin suppl No anti-plt rx HD/UF Titrate anti-HTN regimen Surveillance cultures Abx per Lance Baird MD Aug 21, 2020 23:29
[2020-08-22] VITALS: BP 131/58
[2020-08-22] MEDS: Albuterol ud Inhalation HHN SCH ×4 (03:06→15:50)
[2020-08-22 04:00] VITALS: BP 127/53
[2020-08-22] MEDS: HydrALAZINE 50mg tab GT SCH ×2 (05:41→14:15)
[2020-08-22] MEDS: cloNIDine 0.2mg Tab GT SCH ×3 (05:41→22:58)
[2020-08-22 06:25] LABS: HEMATOCRIT 25.5 % (37.0-47.0); HEMOGLOBIN 8.7 G/DL (12.0-16.0); MEAN CORPUSCULAR VOLUME 94 FL (80-99); PLATELET COUNT 108 K/UL (150-450); RED BLOOD COUNT 2.71 M/UL (4.20-5.40); RED CELL DISTRIBUTION WIDTH 17.1 % (11.6-14.8); WHITE BLOOD COUNT 3.2 K/UL (4.8-10.8)
--- NOTE | 2020-08-22 07:20 | NUR ---
HAND-OFF: Report given to MARIAH NUNEZ.
--- NOTE | 2020-08-22 07:37 | NUR ---
NURSE NOTES: Patient awake and alert and oriented,Patient right arm AV dialysis shunt has a strong bruit and thrill.Patient sitting up in bed and eating breakfast.Call light within reach.Patient received dialysis on 08/21.Call light within reach.
[2020-08-22 08:00] VITALS: BP 155/64
[2020-08-22] MEDS: Docusate 100mg/10ml Liq GT SCH (08:49)
[2020-08-22] MEDS: Metoprolol Tartrate 50mg tab GT SCH ×2 (08:52→22:58)
[2020-08-22] MEDS: Sensipar 30mg Tab GT SCH (08:53)
[2020-08-22] MEDS: Levothyroxine 125mcg tab GT SCH (08:53)
[2020-08-22] MEDS: Pantoprazole Inj IVP SCH ×2 (08:55→22:57)
[2020-08-22] MEDS ORDERED: Vancomycin 1gm/D5W 275ml IVPB ONE ×2 (09:00)
--- NOTE | 2020-08-22 09:09 | General Progress Note ---
Subjective ROS Limited/Unobtainable: No Allergies: Coded Allergies: ERYTHROMYCIN BASE (Unverified Allergy, Intermediate, 07/14/19) Per patient not allergic to medications or food Objective Last 24 Hour Vital Signs Date Time Temp Pulse Resp B/P (MAP) Pulse Ox O2 Delivery O2 Flow Rate FiO2 08/22/20 08:52 75 133/59 08/22/20 05:41 127/53 08/22/20 05:41 127/53 08/22/20 04:00 98.5 70 18 127/53 (77) 95 08/22/20 03:06 74 18 100 Room Air 21 71 18 98 08/22/20 00:00 98.2 73 18 131/58 (82) 97 08/21/20 23:19 75 16 100 Room Air 21 71 15 99 08/21/20 21:56 71 175/67 08/21/20 21:55 175/67 08/21/20 21:55 175/67 08/21/20 21:00 Nasal Cannula 2.0 08/21/20 20:00 98.2 71 20 175/67 (103) 96 08/21/20 19:34 71 16 100 Room Air 21 67 18 99 08/21/20 16:00 98.0 79 19 129/67 (87) 98 08/21/20 12:07 75 18 100 Room Air 21 74 18 99 08/21/20 12:00 97.5 71 17 117/54 (75) 95 Intake and Output 08/21/20 08/22/20 18:59 06:59 Intake Total 800 ml 185 ml Balance 800 ml 185 ml Intake Oral 185 ml Other 800 ml Laboratory Tests 08/22/20 06:05: White Blood Count 3.2L, Red Blood Count 2.71L, Hemoglobin 8.7L, Hematocrit 25.5L , Mean Corpuscular Volume 94, Mean Corpuscular Hemoglobin 32.3H, Mean Corpuscular Hemoglobin Concent 34.3, Red Cell Distribution Width 17.1H, Platelet Count 108L, Mean Platelet Volume 6.4L, Neutrophils (%) (Auto) , Lymphocytes (%) (Auto) , Monocytes (%) (Auto) , Eosinophils (%) (Auto) , Basophils (%) (Auto) , Neutrophils % (Manual) [Pending], Lymphocytes % (Manual) [Pending], Platelet Estimate [Pending], Platelet Morphology [Pending] Height (Feet): 5 Height (Inches): 4.00 Weight (Pounds): 148 General Appearance: no apparent distress EENT: normal ENT inspection Neck: supple Cardiovascular: normal rate Respiratory/Chest: decreased breath sounds Abdomen: normal bowel sounds, non tender, soft Extremities: non-tender Assessment/Plan Status: stable Assessment/Plan: Assessment - recurrent severe Anemia, at least partly due to ESRD - s/p recent negative EGD/Colonoscopy/capsule endoscopy - no Sx of GIB, and no Iron deficiency - ? Bone marrow d/o - but now OB (+) --> for EGD/SB enteroscopy today - recurrent anorexia - ESRD - h/o CHF - RAD Recommendations - check labs - consider hematology eval - s/p enteroscopy -on renal diet -recent labs and notes reviewed -cbc in am David Bosch MD Aug 22, 2020 09:09
--- NOTE | 2020-08-22 10:50 | Nephrology Progress Note ---
Assessment/Plan Problem List: (1) ESRD (end stage renal disease) on dialysis (2) Anemia in chronic kidney disease (3) Hypertensive nephrosclerosis (4) Hypercalcemia (5) GI bleed (6) Bronchitis (7) Cirrhosis (8) Sepsis Plan HD 08/18 08/19,08/21 transfuse, ppi, hhn, bacteremia staph likely contaminant, vanco, GI eval reviewed Subjective Constitutional: Reports: weakness HEENT: Reports: no symptoms Genitourinary: Reports: incontinence Neurologic/Psychiatric: Reports: pre-existing deficit Objective Objective Last 24 Hour Vital Signs Date Time Temp Pulse Resp B/P (MAP) Pulse Ox O2 Delivery O2 Flow Rate FiO2 08/22/20 08:52 75 133/59 08/22/20 05:41 127/53 08/22/20 05:41 127/53 08/22/20 04:00 98.5 70 18 127/53 (77) 95 08/22/20 03:06 74 18 100 Room Air 21 71 18 98 08/22/20 00:00 98.2 73 18 131/58 (82) 97 08/21/20 23:19 75 16 100 Room Air 21 71 15 99 08/21/20 21:56 71 175/67 08/21/20 21:55 175/67 08/21/20 21:55 175/67 08/21/20 21:00 Nasal Cannula 2.0 08/21/20 20:00 98.2 71 20 175/67 (103) 96 08/21/20 19:34 71 16 100 Room Air 21 67 18 99 08/21/20 16:00 98.0 79 19 129/67 (87) 98 08/21/20 12:07 75 18 100 Room Air 21 74 18 99 08/21/20 12:00 97.5 71 17 117/54 (75) 95 Intake and Output 08/21/20 08/22/20 19:00 07:00 Intake Total 800 ml 185 ml Balance 800 ml 185 ml Intake Oral 185 ml Other 800 ml Laboratory Tests 08/22/20 06:05: White Blood Count 3.2L, Red Blood Count 2.71L, Hemoglobin 8.7L, Hematocrit 25.5L , Mean Corpuscular Volume 94, Mean Corpuscular Hemoglobin 32.3H, Mean Corpuscular Hemoglobin Concent 34.3, Red Cell Distribution Width 17.1H, Platelet Count 108L, Mean Platelet Volume 6.4L, Neutrophils (%) (Auto) , Lymphocytes (%) (Auto) , Monocytes (%) (Auto) , Eosinophils (%) (Auto) , Basophils (%) (Auto) , Neutrophils % (Manual) [Pending], Lymphocytes % (Manual) [Pending], Platelet Estimate [Pending], Platelet Morphology [Pending] Height (Feet): 5 Height (Inches): 4.00 Weight (Pounds): 148 General Appearance: no apparent distress, alert EENT: normal ENT inspection Neck: normal alignment Cardiovascular: regular rhythm, systolic murmur Respiratory/Chest: lungs clear Abdomen: non tender Extremities: no edema Neurologic: disoriented Jose Lemus MD Aug 22, 2020 10:50
--- NOTE | 2020-08-22 11:40 | General Progress Note ---
Subjective ROS Limited/Unobtainable: No Constitutional: Reports: malaise HEENT: Reports: no symptoms Cardiovascular: Reports: no symptoms Respiratory: Reports: no symptoms Gastrointestinal/Abdominal: Reports: no symptoms Genitourinary: Reports: no symptoms Neurologic/Psychiatric: Reports: no symptoms Endocrine: Reports: no symptoms Hematologic/Lymphatic: Reports: anemia Allergies: Coded Allergies: ERYTHROMYCIN BASE (Unverified Allergy, Intermediate, 07/14/19) Per patient not allergic to medications or food All Systems: reviewed and negative except above Subjective no events. w/o complaints. feels "fine." no melena or brbpr. stool OB+ . no fever or chills. no sob. +blood cultures noted. on iv abx. echo neg for veg. h/h trending up eating better. appetite "better." Objective Last 24 Hour Vital Signs Date Time Temp Pulse Resp B/P (MAP) Pulse Ox O2 Delivery O2 Flow Rate FiO2 08/22/20 10:51 70 18 100 Room Air 21 73 18 98 08/22/20 08:52 75 133/59 08/22/20 05:41 127/53 08/22/20 05:41 127/53 08/22/20 04:00 98.5 70 18 127/53 (77) 95 08/22/20 03:06 74 18 100 Room Air 21 71 18 98 08/22/20 00:00 98.2 73 18 131/58 (82) 97 08/21/20 23:19 75 16 100 Room Air 21 71 15 99 08/21/20 21:56 71 175/67 08/21/20 21:55 175/67 08/21/20 21:55 175/67 08/21/20 21:00 Nasal Cannula 2.0 08/21/20 20:00 98.2 71 20 175/67 (103) 96 08/21/20 19:34 71 16 100 Room Air 21 67 18 99 08/21/20 16:00 98.0 79 19 129/67 (87) 98 08/21/20 12:07 75 18 100 Room Air 21 74 18 99 08/21/20 12:00 97.5 71 17 117/54 (75) 95 Intake and Output 08/21/20 08/22/20 19:00 07:00 Intake Total 800 ml 185 ml Balance 800 ml 185 ml Intake Oral 185 ml Other 800 ml Laboratory Tests 08/22/20 06:05: White Blood Count 3.2L, Red Blood Count 2.71L, Hemoglobin 8.7L, Hematocrit 25.5L , Mean Corpuscular Volume 94, Mean Corpuscular Hemoglobin 32.3H, Mean Corpuscular Hemoglobin Concent 34.3, Red Cell Distribution Width 17.1H, Platelet Count 108L, Mean Platelet Volume 6.4L, Neutrophils (%) (Auto) , Lymphocytes (%) (Auto) , Monocytes (%) (Auto) , Eosinophils (%) (Auto) , Basophils (%) (Auto) , Neutrophils % (Manual) [Pending], Lymphocytes % (Manual) [Pending], Platelet Estimate [Pending], Platelet Morphology [Pending] Height (Feet): 5 Height (Inches): 4.00 Weight (Pounds): 148 Objective General Appearance: WD/WN, alert EENT: normal ENT inspection Neck: non-tender, normal alignment, supple Cardiovascular: normal peripheral pulses, normal rate, regular rhythm Respiratory/Chest: chest wall non-tender, lungs clear, normal breath sounds, no respiratory distress Abdomen: normal bowel sounds, non tender, soft, no organomegaly Extremities: normal range of motion Edema: no edema noted Arm (L), no edema noted Arm (R) Neurologic: cardiac cath rn II-XII grossly normal, alert, responsive Skin: normal pigmentation Assessment/Plan Problem List: (1) CKD (chronic kidney disease) stage 4, GFR 15-29 ml/min ICD Codes: N18.4 - Chronic kidney disease, stage 4 (severe) SNOMED: 151732026 (2) End-stage renal disease ICD Codes: N18.6 - End stage renal disease SNOMED: 89431575 (3) Hypothyroidism ICD Codes: E03.9 - Hypothyroidism SNOMED: 58775938 (4) Fever ICD Codes: R50.9 - Fever, unspecified SNOMED: 865502569 (5) Anemia in chronic kidney disease ICD Codes: N18.9 - Chronic kidney disease, unspecified; D63.1 - Anemia in chronic kidney disease SNOMED: 505190381 (6) GI bleed ICD Codes: K92.2 - Gastrointestinal hemorrhage, unspecified SNOMED: 74502940 (7) History of GI bleed ICD Codes: Z87.19 - Personal history of other diseases of the digestive system SNOMED: 806209603 (8) CHF exacerbation ICD Codes: I50.9 - Heart failure, unspecified SNOMED: 970563250, 61146068578702 (9) ESRD (end stage renal disease) on dialysis ICD Codes: N18.6 - End stage renal disease; Z99.2 - Dependence on renal dialysis SNOMED: 542957483 Status: stable Assessment/Plan: monitor h/h transfuse as needed monitor for bleeding PPI rx heme consult today- d/w ?bone marrow iv abx follow up cultures HD per renal Chema Hendricks MD Aug 22, 2020 11:40
[2020-08-22 12:00] VITALS: BP 142/58
[2020-08-22 16:00] VITALS: BP 145/67
--- NOTE | 2020-08-22 17:04 | Infectious Diseases Prog Note ---
Assessment/Plan Assessment/Plan A: 1. Staphylococcus Capitis bacteremia. 2. Hypertension. 3. Renal failure, on dialysis. 4. Congestive heart failure. 5. Anemia PLAN: 1. Continue IV vancomycin for now. 2. We will f/u 2D echocardiogram. 3. We will follow up cultures. Subjective ROS Limited/Unobtainable: No Respiratory: Reports: no symptoms Cardiovascular: Reports: no symptoms Gastrointestinal/Abdominal: Reports: no symptoms Genitourinary: Reports: no symptoms Allergies: Coded Allergies: ERYTHROMYCIN BASE (Unverified Allergy, Intermediate, 07/14/19) Per patient not allergic to medications or food Objective Last 24 Hour Vital Signs Date Time Temp Pulse Resp B/P (MAP) Pulse Ox O2 Delivery O2 Flow Rate FiO2 08/22/20 15:59 78 18 100 Room Air 21 78 18 98 08/22/20 14:15 132/63 08/22/20 14:14 132/63 08/22/20 12:00 97.7 78 16 142/58 (86) 98 08/22/20 10:51 70 18 100 Room Air 21 73 18 98 08/22/20 09:00 Nasal Cannula 2.0 08/22/20 08:52 75 133/59 08/22/20 08:00 98.5 98 16 155/64 (94) 95 08/22/20 05:41 127/53 08/22/20 05:41 127/53 08/22/20 04:00 98.5 70 18 127/53 (77) 95 08/22/20 03:06 74 18 100 Room Air 21 71 18 98 08/22/20 00:00 98.2 73 18 131/58 (82) 97 08/21/20 23:19 75 16 100 Room Air 21 71 15 99 08/21/20 21:56 71 175/67 08/21/20 21:55 175/67 08/21/20 21:55 175/67 08/21/20 21:00 Nasal Cannula 2.0 08/21/20 20:00 98.2 71 20 175/67 (103) 96 08/21/20 19:34 71 16 100 Room Air 21 67 18 99 Height (Feet): 5 Height (Inches): 4.00 Weight (Pounds): 148 HEENT: mucous membranes moist Respiratory/Chest: lungs clear Cardiovascular: normal rate Abdomen: soft, non tender, other - R arm AV graft Extremities: no edema Neurologic/Psychiatric: alert, oriented x 3, responsive Laboratory Tests Test 08/22/20 06:05 White Blood Count 3.2 K/UL (4.8-10.8) L Red Blood Count 2.71 M/UL (4.20-5.40) L Hemoglobin 8.7 G/DL (12.0-16.0) L Hematocrit 25.5 % (37.0-47.0) L Mean Corpuscular Volume 94 FL (80-99) Mean Corpuscular Hemoglobin 32.3 PG (27.0-31.0) H Mean Corpuscular Hemoglobin Concent 34.3 G/DL (32.0-36.0) Red Cell Distribution Width 17.1 % (11.6-14.8) H Platelet Count 108 K/UL (150-450) L Mean Platelet Volume 6.4 FL (6.5-10.1) L Neutrophils (%) (Auto) % (45.0-75.0) Lymphocytes (%) (Auto) % (20.0-45.0) Monocytes (%) (Auto) % (1.0-10.0) Eosinophils (%) (Auto) % (0.0-3.0) Basophils (%) (Auto) % (0.0-2.0) Differential Total Cells Counted 100 Neutrophils % (Manual) 63 % (45-75) Lymphocytes % (Manual) 25 % (20-45) Monocytes % (Manual) 9 % (1-10) Eosinophils % (Manual) 3 % (0-3) Basophils % (Manual) 0 % (0-2) Band Neutrophils 0 % (0-8) Platelet Estimate Decreased L Platelet Morphology Normal Hypochromasia 2+ Anisocytosis 1+ Current Medications Medications (Trade) Dose Ordered Sig/Jonathan Route PRN Reason Start Time Stop Time Status Last Admin Dose Admin Acetaminophen (Tylenol) 650 mg QHS PRN GT For Pain and fever 08/17/20 16:00 09/16/20 15:59 08/18/20 17:40 Acetaminophen/ Hydrocodone Bitart ([place] 10/325) 1 tab Q4H PRN GT For Pain 4-10 08/18/20 18:00 08/25/20 17:59 08/21/20 23:14 Albuterol Sulfate (Proventil) 2.5 mg Q4HRT HHN 08/17/20 19:00 08/22/20 18:59 08/22/20 15:50 Cinacalcet (Sensipar) 60 mg DAILY GT 08/18/20 09:00 11/16/20 08:59 08/22/20 08:53 Clonidine HCl (Catapres tab) 0.2 mg Q8HR GT 08/17/20 18:00 11/15/20 17:59 08/22/20 14:14 Docusate Sodium (Colace) 250 mg DAILY GT 08/18/20 09:00 09/17/20 08:59 08/22/20 08:49 Hydralazine HCl (Apresoline) 50 mg Q8HR GT 08/21/20 22:00 11/19/20 21:59 08/22/20 14:15 Levothyroxine Sodium (Synthroid) 125 mcg DAILY GT 08/18/20 09:00 09/17/20 08:59 08/22/20 08:53 Metoprolol Tartrate (Lopressor) 50 mg EVERY 12 HOURS GT 08/17/20 21:00 11/15/20 20:59 08/22/20 08:52 Pantoprazole (Protonix) 40 mg EVERY 12 HOURS IVP 08/17/20 21:00 09/16/20 20:59 08/22/20 08:55 Temazepam (Restoril) 15 mg BEDTIME GT 08/17/20 21:00 08/24/20 20:59 08/21/20 21:55 Vancomycin HCl (Vanco pharmacy to dose) 1 ea DAILY PRN MISC Per rx protocol 08/19/20 14:00 09/18/20 13:59 Ruperto Freedman MD Aug 22, 2020 17:04
--- NOTE | 2020-08-22 17:25 | Cardiology Progress Note ---
Subjective DATE OF SERVICE: Aug 22, 2020 Now bacteremic with S.capitis s/p PRBC transfusions - hemoglobin increased, and remains stable. No c/o CP or SOB EGD did not reveal any acute findings or bleeding source Patient on hydralazine; may suppress BM. Objective Last 24 Hour Vital Signs Date Time Temp Pulse Resp B/P (MAP) Pulse Ox O2 Delivery O2 Flow Rate FiO2 08/22/20 15:59 78 18 100 Room Air 21 78 18 98 08/22/20 14:15 132/63 08/22/20 14:14 132/63 08/22/20 12:00 97.7 78 16 142/58 (86) 98 08/22/20 10:51 70 18 100 Room Air 21 73 18 98 08/22/20 09:00 Nasal Cannula 2.0 08/22/20 08:52 75 133/59 08/22/20 08:00 98.5 98 16 155/64 (94) 95 08/22/20 05:41 127/53 08/22/20 05:41 127/53 08/22/20 04:00 98.5 70 18 127/53 (77) 95 08/22/20 03:06 74 18 100 Room Air 21 71 18 98 08/22/20 00:00 98.2 73 18 131/58 (82) 97 08/21/20 23:19 75 16 100 Room Air 21 71 15 99 08/21/20 21:56 71 175/67 08/21/20 21:55 175/67 08/21/20 21:55 175/67 08/21/20 21:00 Nasal Cannula 2.0 08/21/20 20:00 98.2 71 20 175/67 (103) 96 08/21/20 19:34 71 16 100 Room Air 21 67 18 99 ROS: Unchanged from my evaluation of 08/17/20. HEENT: normal ENT inspection RHYTHM: NSR, PACs LUNGS: lungs clear bilaterally, diminished breath sounds CARDIAC: normal rate, regular rhythm, normal S1 and S2, systolic murmur - 1/6 systolic murmur at base ABDOMEN: normal bowel sounds, non tender, soft, no organomegaly EXTREMITIES: normal range of motion, trace edema Laboratory Tests Test 08/22/20 06:05 White Blood Count 3.2 K/UL (4.8-10.8) L Red Blood Count 2.71 M/UL (4.20-5.40) L Hemoglobin 8.7 G/DL (12.0-16.0) L Hematocrit 25.5 % (37.0-47.0) L Mean Corpuscular Volume 94 FL (80-99) Mean Corpuscular Hemoglobin 32.3 PG (27.0-31.0) H Mean Corpuscular Hemoglobin Concent 34.3 G/DL (32.0-36.0) Red Cell Distribution Width 17.1 % (11.6-14.8) H Platelet Count 108 K/UL (150-450) L Mean Platelet Volume 6.4 FL (6.5-10.1) L Neutrophils (%) (Auto) % (45.0-75.0) Lymphocytes (%) (Auto) % (20.0-45.0) Monocytes (%) (Auto) % (1.0-10.0) Eosinophils (%) (Auto) % (0.0-3.0) Basophils (%) (Auto) % (0.0-2.0) Differential Total Cells Counted 100 Neutrophils % (Manual) 63 % (45-75) Lymphocytes % (Manual) 25 % (20-45) Monocytes % (Manual) 9 % (1-10) Eosinophils % (Manual) 3 % (0-3) Basophils % (Manual) 0 % (0-2) Band Neutrophils 0 % (0-8) Platelet Estimate Decreased L Platelet Morphology Normal Hypochromasia 2+ Anisocytosis 1+ Assessment/Plan Assessment/Plan S. capitis bacteremia with increased risk for endocarditis Severe anemia ESRD Hx g-tube Hypertension/HHD Hx hypothyroidism - now euthyroid Chronic diastolic CHF Cerebrovascular disease BM suppression DC hydralazine; amlodipine added. PRBC tx for hemoglobin below 7 Epogen and vitamin suppl No anti-plt rx HD/UF Titrate anti-HTN regimen Abx per ID Review 2D Echocardiogram Lance Rivas MD Aug 22, 2020 17:25
--- NOTE | 2020-08-22 18:14 | NUR ---
NURSE NOTES: Patient sitting up in bed and watching TV. Right arm AV shunt continue with strong bruit and Thrill.Patient was up and out of bed with physical therapist today and tolerated . patient resting ,bed alarm is on,call light within reach.
--- NOTE | 2020-08-22 19:48 | NUR ---
NURSE HAND-OFF: Important Events on Shift:[] Patient Status: [] Diet: [Renal] Pending Orders: [Vancomycin random 08/24] Pending Results/Labs:[] Pending MD notification:[] Latest Vital Signs: Temperature 97.6 , Pulse 81 , B/P 145 /67 , Respiratory Rate 18 , O2 SAT 98 , Nasal Cannula, O2 Flow Rate 2.0 . Vital Sign Comment: [] Latest Virgen Fall Score: 45 Fall Risk: High Risk Safety Measures: Call light Within Reach, Bed Alarm Zone 1, Side Rails Side Rails x2, Bed position Low and Locked. Fall Precautions: Yellow Socks Y Yellow Gown Y Door Sign Y Patient Fall Education bed alarm Report given to [].
--- NOTE | 2020-08-22 19:48 | NUR ---
NURSE NOTES: Hand off report given to Jessica NUNEZ
--- NOTE | 2020-08-22 19:50 | NUR ---
NURSE NOTES: Patient awake and alert and oriented x4, speech is slightly garbled but able to answer questionsPatient right arm AV dialysis shunt has a strong bruit auscultated and thrill palpated.Patient sitting up in bed and resting at this time, watching tv. Bed locked in lowest position, side rails x2, bed alarm on. Call light within reach.
[2020-08-22 20:00] VITALS: BP 153/72
[2020-08-23] VITALS: BP 150/73
[2020-08-23 04:00] VITALS: BP 144/73
[2020-08-23] MEDS: cloNIDine 0.2mg Tab GT SCH ×3 (06:01→21:12)
--- NOTE | 2020-08-23 07:03 | Consultation ---
History of Present Illness General Chief Complaint: Generalized Weakness Present Illness Allergies: Coded Allergies: ERYTHROMYCIN BASE (Unverified Allergy, Intermediate, 07/14/19) Per patient not allergic to medications or food Medication History Scheduled Acetaminophen With Codeine 300MG/30MG (T#3)* (Tylenol With Codeine #3 Tablet*), 1 TAB GT QHS, (Reported) Aspirin Ec* (Aspirin Ec*), 81 MG GT DAILY, (Reported) Cinacalcet* (Sensipar*), 60 MG GT DAILY, (Reported) Clonidine Hcl* (Catapres*), 0.2 MG GT THREE TIMES A DAY, (Reported) Docusate Sodium* (Docusate Sodium*), 250 MG GT DAILY, (Reported) Docusate Sodium* (Docusate Sodium*), 100 MG GT DAILY, (Reported) Hydralazine Hcl* (Hydralazine Hcl*), 100 MG GT EVERY 8 HOURS, (Reported) Lansoprazole* (Lansoprazole*), 30 MG GT DAILY, (Reported) Levothyroxine Sodium* (Synthroid*), 150 MCG GT DAILY, (Reported) Metoprolol Tartrate* (Metoprolol Tartrate*), 50 MG GT EVERY 12 HOURS, (Reported) Temazepam (Temazepam*), 15 MG GT BEDTIME, (Reported) Discontinued Medications Acetaminophen* (Acetaminophen 325MG Tablet*), 650 MG GT QHS PRN for OR\, (Reported) Discontinued Reason: Prescription changed Levothyroxine Sodium* (Synthroid*), 125 MCG GT DAILY, (Reported) Discontinued Reason: Prescription changed Patient History Healthcare decision maker Resuscitation status Advanced Directive on File Physical Exam Last 24 Hour Vital Signs Date Time Temp Pulse Resp B/P (MAP) Pulse Ox O2 Delivery O2 Flow Rate FiO2 08/23/20 06:01 144/68 08/23/20 04:00 98.9 78 18 144/73 (96) 97 08/23/20 00:00 98.9 77 18 150/73 (98) 98 08/22/20 22:58 77 153/72 08/22/20 22:58 153/72 08/22/20 21:00 Nasal Cannula 2.0 08/22/20 20:00 98.9 77 18 153/72 (99) 98 08/22/20 16:00 97.6 81 18 145/67 (93) 98 08/22/20 15:59 78 18 100 Room Air 21 78 18 98 08/22/20 14:15 132/63 08/22/20 14:14 132/63 08/22/20 12:00 97.7 78 16 142/58 (86) 98 08/22/20 10:51 70 18 100 Room Air 21 73 18 98 08/22/20 09:00 Nasal Cannula 2.0 08/22/20 08:52 75 133/59 08/22/20 08:00 98.5 98 16 155/64 (94) 95 Intake and Output 08/22/20 08/23/20 19:00 07:00 Intake Total 950 ml Balance 950 ml Intake Oral 150 ml Other 800 ml # Voids 1 Height (Feet): 5 Height (Inches): 4.00 Weight (Pounds): 148 Medications Current Medications Medications (Trade) Dose Ordered Sig/Jonathan Route PRN Reason Start Time Stop Time Status Last Admin Dose Admin Acetaminophen (Tylenol) 650 mg QHS PRN GT For Pain and fever 08/17/20 16:00 09/16/20 15:59 08/18/20 17:40 Acetaminophen/ Hydrocodone Bitart ([place] 10/325) 1 tab Q4H PRN GT For Pain 4-10 08/18/20 18:00 08/25/20 17:59 08/21/20 23:14 Amlodipine Besylate (Norvasc) 5 mg DAILY ORAL 08/23/20 09:00 09/22/20 08:59 Cinacalcet (Sensipar) 60 mg DAILY GT 08/18/20 09:00 11/16/20 08:59 08/22/20 08:53 Clonidine HCl (Catapres tab) 0.2 mg Q8HR GT 08/17/20 18:00 11/15/20 17:59 08/23/20 06:01 Docusate Sodium (Colace) 250 mg DAILY GT 08/18/20 09:00 09/17/20 08:59 08/22/20 08:49 Levothyroxine Sodium (Synthroid) 125 mcg DAILY GT 08/18/20 09:00 09/17/20 08:59 08/22/20 08:53 Metoprolol Tartrate (Lopressor) 50 mg EVERY 12 HOURS GT 08/17/20 21:00 11/15/20 20:59 08/22/20 22:58 Pantoprazole (Protonix) 40 mg EVERY 12 HOURS IVP 08/17/20 21:00 09/16/20 20:59 08/22/20 22:57 Temazepam (Restoril) 15 mg BEDTIME GT 08/17/20 21:00 08/24/20 20:59 08/22/20 22:58 Vancomycin HCl (Vanco pharmacy to dose) 1 ea DAILY PRN MISC Per rx protocol 08/19/20 14:00 09/18/20 13:59 Assessment/Plan Assessment/Plan: Heme Consultation REQ MD: Byron Hendricks 08/23/2020 RFC: Persistent pancytopenia ID 74y old female, the patient presents with decreased level of consciousness. She was brought by her family. Apparently she missed dialysis today. They elected to come here because she has several physicians and has been recently admitted. The patient is lethargic and unable to answer questions. Apparently she recently had a gastrostomy tube removed. On July 20 her stool tested positive for blood. She has been getting hd here, and has been persisently pancytopenic i reviewed, prior labs and imagng Discharged from the hospital on July 28 with these discharge diagnoses: 1. Anemia, possible GI bleed. 2. End-stage renal disease. 3. History of hypertension. 4. Anemia. 5. History of pericardial effusion. 6. History of stroke. 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 Limited by: medical condition Past Medical History: see triage record, old chart reviewed Past Surgical History: hysterectomy, other - Dialysis fistula right upper arm Social History Narrative With family Reviewed Nursing Documentation: PMH: Agreed; PSxH: Agreed Nursing Documentation-PMH Past Medical History: No History, Except For Hx Cardiac Problems: Yes - gerd, anxiety Hx Hypertension: Yes - hypothyroidism Hx Asthma: No Hx COPD: Yes - COPD,CHF Hx Cancer: No Hx Gastrointestinal Problems: Yes - G-tube,liver cirrhosis Hx Dialysis: Yes - CKD, AV shunt to Right arm Hx Neurological Problems: Yes Hx Cerebrovascular Accident: Yes Hx Dementia: Yes Hx Parkinson's Disease: Yes Hx Seizures: Yes Hx Speech Problem: Yes Review of Systems All Other Systems: limited Physical Exam Sp02 Ep: reviewed, normal General: lethargic, other, Chronically Ill HEENT: moist mucus membranes, perrl, full rom Respiratory: lungs clear, normal breath sounds, no respiratory distress Cardiovascular: regular rate, rhythm Gastrointestinal: non tender, soft, Genitourinary: no CVA tenderness Musculoskeletal: back normal Neurologic: oriented - X1, sensory intact, motor weakness - Diffuse Psychiatric: depressed affect Labs: noted Imaging; reviewed Assessment and Recs # Pancytopenia that has been persistent last few years, reviewed prior labs and imaging, does show evidence of cirrhosis and splenoemgaly, is chronic --> us abd: Cirrhosis of the liver with signs of portal hypertension including ascites and splenomegaly. --> anemia panel reviewed --> keep hgb >8 with epo as needed --> give above of cirrhosis/splenomegaly hold off teresa marrow biopsy --> per GI, for EGD/SB enteroscopy --> plt 104 --> wbc 3.2 --> hgb 8 # End-stage renal disease. Evaluation reveals profound anemia. -> hd as per Dr. Lemus --> right arm fistula acces # Hypotension --> fluids as needed, pressors prn. # Elevated lactic acid level # History of GI bleed # hx cva # AMS # Recurrent anorexia Appreciate consultation and dw Andres Javed MD Aug 23, 2020 07:03
--- NOTE | 2020-08-23 07:54 | NUR ---
NURSE HAND-OFF: Important Events on Shift:[oliguric, voided once] Patient Status: [stable] Diet: [Renal] Pending Orders: [Vancomycin random 08/24 0400 and 08/25] Pending Results/Labs:[cbc, bmp] Pending MD notification:- Latest Vital Signs: Temperature 97.6 , Pulse 81 , B/P 145 /67 , Respiratory Rate 18 , O2 SAT 98 , Nasal Cannula, O2 Flow Rate 2.0 . Vital Sign Comment: stable Latest Virgen Fall Score: 45 Fall Risk: High Risk Safety Measures: Call light Within Reach, Bed Alarm Zone 1, Side Rails Side Rails x2, Bed position Low and Locked. Fall Precautions: Yellow Socks Y Yellow Gown Y Door Sign Y Patient Fall Education bed alarm Report given to Soledad NUNEZ
[2020-08-23 08:00] VITALS: BP 123/64
--- NOTE | 2020-08-23 08:07 | NUR ---
NURSE NOTES: Patient alert x4; on room air, no sing of distress and shortness of breath; no sing of chest pain; IV Left Upper Arm flushes well; Hemodialysis access Right Upper arm; side rails up x2, breaks engaged, bed at lowest position, bed alarm on; call light within reach; will keep monitoring.
[2020-08-23 08:08] LABS: BASOPHILS % (AUTO) 0.8 % (0.0-2.0); EOSINOPHILS % (AUTO) 2.5 % (0.0-3.0); HEMATOCRIT 24.9 % (37.0-47.0); HEMOGLOBIN 8.4 G/DL (12.0-16.0); LYMPHOCYTES % (AUTO) 19.9 % (20.0-45.0); MEAN CORPUSCULAR VOLUME 94 FL (80-99); MONOCYTES % (AUTO) 9.9 % (1.0-10.0); PLATELET COUNT 117 K/UL (150-450); RED BLOOD COUNT 2.64 M/UL (4.20-5.40); RED CELL DISTRIBUTION WIDTH 16.4 % (11.6-14.8); WHITE BLOOD COUNT 3.5 K/UL (4.8-10.8)
[2020-08-23] MEDS: Sensipar 30mg Tab GT SCH (08:43)
[2020-08-23] MEDS: Metoprolol Tartrate 50mg tab GT SCH ×2 (08:43→21:12)
[2020-08-23] MEDS: Levothyroxine 125mcg tab GT SCH (08:43)
[2020-08-23] MEDS: Docusate 100mg/10ml Liq GT SCH (08:43)
[2020-08-23] MEDS: Pantoprazole Inj IVP SCH ×2 (08:44→21:12)
--- NOTE | 2020-08-23 11:44 | Infectious Diseases Prog Note ---
Assessment/Plan Assessment/Plan antibiotics : vancomycin iv A 1. coag neg staph ? sepsis 2. renal failure on HD 3. CHF 4. anemia P 1. continue iv vancomycin 1 more day 2. will follow up cultures Subjective Constitutional: Denies: fever, chills Respiratory: Denies: shortness of breath, dry cough Gastrointestinal/Abdominal: Denies: nausea, vomiting, diarrhea Musculoskeletal: Denies: pain Allergies: Coded Allergies: ERYTHROMYCIN BASE (Unverified Allergy, Intermediate, 07/14/19) Per patient not allergic to medications or food Objective Last 24 Hour Vital Signs Date Time Temp Pulse Resp B/P (MAP) Pulse Ox O2 Delivery O2 Flow Rate FiO2 08/23/20 09:00 Nasal Cannula 2.0 08/23/20 08:44 69 123/64 08/23/20 08:43 69 123/64 08/23/20 08:00 97.2 69 20 123/64 (83) 99 08/23/20 06:01 144/68 08/23/20 04:00 98.9 78 18 144/73 (96) 97 08/23/20 00:00 98.9 77 18 150/73 (98) 98 08/22/20 22:58 77 153/72 08/22/20 22:58 153/72 08/22/20 21:00 Nasal Cannula 2.0 08/22/20 20:00 98.9 77 18 153/72 (99) 98 08/22/20 16:00 97.6 81 18 145/67 (93) 98 08/22/20 15:59 78 18 100 Room Air 21 78 18 98 08/22/20 14:15 132/63 08/22/20 14:14 132/63 08/22/20 12:00 97.7 78 16 142/58 (86) 98 Height (Feet): 5 Height (Inches): 4.00 Weight (Pounds): 148 Respiratory/Chest: lungs clear Cardiovascular: normal rate, regular rhythm, no gallop/murmur Abdomen: soft, non tender Extremities: no edema Laboratory Tests Test 08/23/20 07:35 White Blood Count 3.5 K/UL (4.8-10.8) L Red Blood Count 2.64 M/UL (4.20-5.40) L Hemoglobin 8.4 G/DL (12.0-16.0) L Hematocrit 24.9 % (37.0-47.0) L Mean Corpuscular Volume 94 FL (80-99) Mean Corpuscular Hemoglobin 32.0 PG (27.0-31.0) H Mean Corpuscular Hemoglobin Concent 33.9 G/DL (32.0-36.0) Red Cell Distribution Width 16.4 % (11.6-14.8) H Platelet Count 117 K/UL (150-450) L Mean Platelet Volume 7.9 FL (6.5-10.1) Neutrophils (%) (Auto) 67.0 % (45.0-75.0) Lymphocytes (%) (Auto) 19.9 % (20.0-45.0) L Monocytes (%) (Auto) 9.9 % (1.0-10.0) Eosinophils (%) (Auto) 2.5 % (0.0-3.0) Basophils (%) (Auto) 0.8 % (0.0-2.0) Alpha Fetoprotein Pending Hepatitis C Antibody Pending Current Medications Medications (Trade) Dose Ordered Sig/Jonathan Route PRN Reason Start Time Stop Time Status Last Admin Dose Admin Acetaminophen (Tylenol) 650 mg QHS PRN GT For Pain and fever 08/17/20 16:00 09/16/20 15:59 08/18/20 17:40 Acetaminophen/ Hydrocodone Bitart ([place] 10/325) 1 tab Q4H PRN GT For Pain 4-10 08/18/20 18:00 08/25/20 17:59 08/21/20 23:14 Amlodipine Besylate (Norvasc) 5 mg DAILY ORAL 08/23/20 09:00 09/22/20 08:59 08/23/20 08:44 Cinacalcet (Sensipar) 60 mg DAILY GT 08/18/20 09:00 11/16/20 08:59 08/23/20 08:43 Clonidine HCl (Catapres tab) 0.2 mg Q8HR GT 08/17/20 18:00 11/15/20 17:59 08/23/20 06:01 Docusate Sodium (Colace) 250 mg DAILY GT 08/18/20 09:00 09/17/20 08:59 08/23/20 08:43 Levothyroxine Sodium (Synthroid) 125 mcg DAILY GT 08/18/20 09:00 09/17/20 08:59 08/23/20 08:43 Metoprolol Tartrate (Lopressor) 50 mg EVERY 12 HOURS GT 08/17/20 21:00 11/15/20 20:59 08/23/20 08:43 Pantoprazole (Protonix) 40 mg EVERY 12 HOURS IVP 08/17/20 21:00 09/16/20 20:59 08/23/20 08:44 Temazepam (Restoril) 15 mg BEDTIME GT 08/17/20 21:00 08/24/20 20:59 08/22/20 22:58 Vancomycin HCl ([facility] pharmacy to dose) 1 ea DAILY PRN MISC Per rx protocol 08/19/20 14:00 09/18/20 13:59 Jessica Reyes MD Aug 23, 2020 11:44
[2020-08-23 12:00] VITALS: BP_SYST 123; BP_SYST 127; BP_DIAS 55; BP_DIAS 64
[2020-08-23 16:00] VITALS: BP 129/54
--- NOTE | 2020-08-23 16:21 | Nephrology Progress Note ---
Assessment/Plan Problem List: (1) ESRD (end stage renal disease) on dialysis (2) Anemia in chronic kidney disease (3) Hypertensive nephrosclerosis (4) Hypercalcemia (5) GI bleed (6) Bronchitis (7) Cirrhosis (8) Sepsis Plan HD 08/18 08/19,08/21 08/24 transfused, ppi, hhn, bacteremia staph likely contaminant, vanco, GI eval reviewed, prior Hb> 11 suspect occult gi bleed which may have stopped by arrival Subjective Constitutional: Reports: weakness HEENT: Reports: no symptoms Genitourinary: Reports: no symptoms, incontinence Neurologic/Psychiatric: Reports: no symptoms, pre-existing deficit Objective Objective Last 24 Hour Vital Signs Date Time Temp Pulse Resp B/P (MAP) Pulse Ox O2 Delivery O2 Flow Rate FiO2 08/23/20 16:00 97.7 75 18 129/54 (79) 98 75 08/23/20 13:15 127/55 08/23/20 12:00 97.6 72 18 127/55 (79) 98 72 08/23/20 09:00 Nasal Cannula 2.0 08/23/20 08:44 69 123/64 08/23/20 08:43 69 123/64 08/23/20 08:00 97.2 69 20 123/64 (83) 99 08/23/20 06:01 144/68 08/23/20 04:00 98.9 78 18 144/73 (96) 97 08/23/20 00:00 98.9 77 18 150/73 (98) 98 08/22/20 22:58 77 153/72 08/22/20 22:58 153/72 08/22/20 21:00 Nasal Cannula 2.0 08/22/20 20:00 98.9 77 18 153/72 (99) 98 Intake and Output 08/22/20 08/23/20 19:00 07:00 Intake Total 950 ml Balance 950 ml Intake Oral 150 ml Other 800 ml # Voids 1 Laboratory Tests 08/23/20 07:35: White Blood Count 3.5L, Red Blood Count 2.64L, Hemoglobin 8.4L, Hematocrit 24.9L , Mean Corpuscular Volume 94, Mean Corpuscular Hemoglobin 32.0H, Mean Corpuscular Hemoglobin Concent 33.9, Red Cell Distribution Width 16.4H, Platelet Count 117L, Mean Platelet Volume 7.9, Neutrophils (%) (Auto) 67.0, Lymphocytes (%) (Auto) 19.9L, Monocytes (%) (Auto) 9.9, Eosinophils (%) (Auto) 2.5, Basophils (%) (Auto) 0.8, Alpha Fetoprotein [Pending], Hepatitis C Antibody [Pending] Height (Feet): 5 Height (Inches): 4.00 Weight (Pounds): 148 General Appearance: no apparent distress, alert EENT: normal ENT inspection Neck: normal alignment, supple Cardiovascular: normal rate, regular rhythm Respiratory/Chest: lungs clear Abdomen: non tender Extremities: no edema Neurologic: motor weakness, disoriented Jose Lemus MD Aug 23, 2020 16:21
--- NOTE | 2020-08-23 16:45 | General Progress Note ---
Subjective Allergies: Coded Allergies: ERYTHROMYCIN BASE (Unverified Allergy, Intermediate, 07/14/19) Per patient not allergic to medications or food Subjective no events. w/o complaints. feels "fine." no melena or brbpr. stool OB+ . no fever or chills. no sob. +blood cultures noted. on iv abx. echo neg for veg. h/h trending up eating better. appetite "better. cards and heme appreciated Objective Last 24 Hour Vital Signs Date Time Temp Pulse Resp B/P (MAP) Pulse Ox O2 Delivery O2 Flow Rate FiO2 08/23/20 16:00 97.7 75 18 129/54 (79) 98 75 08/23/20 13:15 127/55 08/23/20 12:00 97.6 72 18 127/55 (79) 98 72 08/23/20 09:00 Nasal Cannula 2.0 08/23/20 08:44 69 123/64 08/23/20 08:43 69 123/64 08/23/20 08:00 97.2 69 20 123/64 (83) 99 08/23/20 06:01 144/68 08/23/20 04:00 98.9 78 18 144/73 (96) 97 08/23/20 00:00 98.9 77 18 150/73 (98) 98 08/22/20 22:58 77 153/72 08/22/20 22:58 153/72 08/22/20 21:00 Nasal Cannula 2.0 08/22/20 20:00 98.9 77 18 153/72 (99) 98 Intake and Output 08/22/20 08/23/20 19:00 07:00 Intake Total 950 ml Balance 950 ml Intake Oral 150 ml Other 800 ml # Voids 1 Laboratory Tests 08/23/20 07:35: White Blood Count 3.5L, Red Blood Count 2.64L, Hemoglobin 8.4L, Hematocrit 24.9L , Mean Corpuscular Volume 94, Mean Corpuscular Hemoglobin 32.0H, Mean Corpuscular Hemoglobin Concent 33.9, Red Cell Distribution Width 16.4H, Platelet Count 117L, Mean Platelet Volume 7.9, Neutrophils (%) (Auto) 67.0, Lymphocytes (%) (Auto) 19.9L, Monocytes (%) (Auto) 9.9, Eosinophils (%) (Auto) 2.5, Basophils (%) (Auto) 0.8, Alpha Fetoprotein [Pending], Hepatitis C Antibody [Pending] Height (Feet): 5 Height (Inches): 4.00 Weight (Pounds): 148 Objective General Appearance: WD/WN, alert EENT: normal ENT inspection Neck: non-tender, normal alignment, supple Cardiovascular: normal peripheral pulses, normal rate, regular rhythm Respiratory/Chest: chest wall non-tender, lungs clear, normal breath sounds, no respiratory distress Abdomen: normal bowel sounds, non tender, soft, no organomegaly Extremities: normal range of motion Edema: no edema noted Arm (L), no edema noted Arm (R) 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, alert, responsive Skin: normal pigmentation Assessment/Plan Problem List: (1) CKD (chronic kidney disease) stage 4, GFR 15-29 ml/min ICD Codes: N18.4 - Chronic kidney disease, stage 4 (severe) SNOMED: 736788548 (2) End-stage renal disease ICD Codes: N18.6 - End stage renal disease SNOMED: 63160027 (3) Hypothyroidism ICD Codes: E03.9 - Hypothyroidism SNOMED: 34260333 (4) Fever ICD Codes: R50.9 - Fever, unspecified SNOMED: 561608418 (5) Anemia in chronic kidney disease ICD Codes: N18.9 - Chronic kidney disease, unspecified; D63.1 - Anemia in chronic kidney disease SNOMED: 944134881 (6) GI bleed ICD Codes: K92.2 - Gastrointestinal hemorrhage, unspecified SNOMED: 21167775 (7) History of GI bleed ICD Codes: Z87.19 - Personal history of other diseases of the digestive system SNOMED: 818639518 (8) CHF exacerbation ICD Codes: I50.9 - Heart failure, unspecified SNOMED: 322597767, 81009212513742 (9) ESRD (end stage renal disease) on dialysis ICD Codes: N18.6 - End stage renal disease; Z99.2 - Dependence on renal dialysis SNOMED: 850804464 Status: stable Assessment/Plan: monitor h/h transfuse as needed monitor for bleeding PPI rx off hydralazine- may suppress BM ?bone marrow biopsy iv abx follow up cultures HD per renal Chema Hendricks MD Aug 23, 2020 16:45
--- NOTE | 2020-08-23 17:07 | NUR ---
CASE MANAGEMENT:REVIEW SI;GI BLEED. ESRD ON HD. 97.7 75 18 129/54 98% 2L NC WBC 3.5 H/H 8.4/24.9 PLT 117 BUN 29 CR 4.2 MAG 3.3 AST 38 IS;EGD NORVASC GT QD PROTONIX IV Q12 LOPRESSOR GT Q12 CLONIDINE GT Q 8 MED SURG STATUS DCP;FROM HOME
--- NOTE | 2020-08-23 19:21 | NUR ---
HAND-OFF: Report given to ENRIQUE Palacios. Patient resting, in stalbe condintion. Plan of care endorsed to the incoming nurse.
--- NOTE | 2020-08-23 19:48 | NUR ---
NURSE NOTES: patient in bed, awake, alert able to make simple needs known. Respiration is even and unlabored. Kept clean and comfortable. No complaint of pain or discomfort noted at this time. Skin is intact, warm and dry to touch. Abdomen is soft and non distended. Noted with right upper arm av shunt. bed in low and locked position, provided safe environment. Iv site noted. Call light is at bedside. Educated patient to use call light. Will continue plan of care.
[2020-08-23 20:00] VITALS: BP 134/55
--- NOTE | 2020-08-23 21:41 | NUR ---
NURSE NOTES: Iv infiltrated, will reinsert. Call light is at bedside. will continue plan of care.
--- NOTE | 2020-08-23 22:52 | Cardiology Progress Note ---
Subjective DATE OF SERVICE: Aug 23, 2020 Now bacteremic with S.capitis s/p PRBC transfusions - hemoglobin increased, and remains stable. No c/o CP or SOB EGD did not reveal any acute findings or bleeding source Hydralazine discont'd, as may suppress BM. No current plan for BM biopsy. Objective Last 24 Hour Vital Signs Date Time Temp Pulse Resp B/P (MAP) Pulse Ox O2 Delivery O2 Flow Rate FiO2 08/23/20 22:25 Nasal Cannula 2.0 08/23/20 21:12 74 134/55 08/23/20 21:12 134/55 08/23/20 20:00 99.0 74 22 134/55 (81) 77 08/23/20 16:00 97.7 75 18 129/54 (79) 98 75 08/23/20 13:15 127/55 08/23/20 12:00 97.6 72 18 127/55 (79) 98 72 08/23/20 09:00 Nasal Cannula 2.0 08/23/20 08:44 69 123/64 08/23/20 08:43 69 123/64 08/23/20 08:00 97.2 69 20 123/64 (83) 99 08/23/20 06:01 144/68 08/23/20 04:00 98.9 78 18 144/73 (96) 97 08/23/20 00:00 98.9 77 18 150/73 (98) 98 08/22/20 22:58 77 153/72 08/22/20 22:58 153/72 ROS: Unchanged from my evaluation of 08/17/20. HEENT: normal ENT inspection RHYTHM: NSR, PACs LUNGS: lungs clear bilaterally, diminished breath sounds CARDIAC: normal rate, regular rhythm, normal S1 and S2, systolic murmur - 1/6 systolic murmur at base ABDOMEN: normal bowel sounds, non tender, soft, no organomegaly EXTREMITIES: normal range of motion, trace edema Laboratory Tests Test 08/23/20 07:35 White Blood Count 3.5 K/UL (4.8-10.8) L Red Blood Count 2.64 M/UL (4.20-5.40) L Hemoglobin 8.4 G/DL (12.0-16.0) L Hematocrit 24.9 % (37.0-47.0) L Mean Corpuscular Volume 94 FL (80-99) Mean Corpuscular Hemoglobin 32.0 PG (27.0-31.0) H Mean Corpuscular Hemoglobin Concent 33.9 G/DL (32.0-36.0) Red Cell Distribution Width 16.4 % (11.6-14.8) H Platelet Count 117 K/UL (150-450) L Mean Platelet Volume 7.9 FL (6.5-10.1) Neutrophils (%) (Auto) 67.0 % (45.0-75.0) Lymphocytes (%) (Auto) 19.9 % (20.0-45.0) L Monocytes (%) (Auto) 9.9 % (1.0-10.0) Eosinophils (%) (Auto) 2.5 % (0.0-3.0) Basophils (%) (Auto) 0.8 % (0.0-2.0) Alpha Fetoprotein Pending Hepatitis C Antibody Pending Assessment/Plan Assessment/Plan S. capitis bacteremia with increased risk for endocarditis, but no echoc ardiographic criteria noted. Severe anemia ESRD Hx g-tube Hypertension/HHD Hx hypothyroidism - now euthyroid Chronic diastolic CHF Cerebrovascular disease BM suppression with pancytopenia Off hydralazine; amlodipine added yesterday - will titrate. PRBC tx for hemoglobin below 7 Epogen and vitamin suppl No anti-plt rx HD/UF Titrate anti-HTN regimen Abx per Lance Baird MD Aug 23, 2020 22:52
--- NOTE | 2020-08-23 23:15 | General Progress Note ---
Subjective Allergies: Coded Allergies: ERYTHROMYCIN BASE (Unverified Allergy, Intermediate, 07/14/19) Per patient not allergic to medications or food Subjective above noted awake and no complaints Objective Last 24 Hour Vital Signs Date Time Temp Pulse Resp B/P (MAP) Pulse Ox O2 Delivery O2 Flow Rate FiO2 08/23/20 22:25 Nasal Cannula 2.0 08/23/20 21:12 74 134/55 08/23/20 21:12 134/55 08/23/20 20:00 99.0 74 22 134/55 (81) 77 08/23/20 16:00 97.7 75 18 129/54 (79) 98 75 08/23/20 13:15 127/55 08/23/20 12:00 97.6 72 18 127/55 (79) 98 72 08/23/20 09:00 Nasal Cannula 2.0 08/23/20 08:44 69 123/64 08/23/20 08:43 69 123/64 08/23/20 08:00 97.2 69 20 123/64 (83) 99 08/23/20 06:01 144/68 08/23/20 04:00 98.9 78 18 144/73 (96) 97 08/23/20 00:00 98.9 77 18 150/73 (98) 98 Intake and Output 08/22/20 08/23/20 19:00 07:00 Intake Total 950 ml Balance 950 ml Intake Oral 150 ml Other 800 ml # Voids 1 Laboratory Tests 08/23/20 07:35: White Blood Count 3.5L, Red Blood Count 2.64L, Hemoglobin 8.4L, Hematocrit 24.9L , Mean Corpuscular Volume 94, Mean Corpuscular Hemoglobin 32.0H, Mean Corpuscular Hemoglobin Concent 33.9, Red Cell Distribution Width 16.4H, Platelet Count 117L, Mean Platelet Volume 7.9, Neutrophils (%) (Auto) 67.0, Lymphocytes (%) (Auto) 19.9L, Monocytes (%) (Auto) 9.9, Eosinophils (%) (Auto) 2.5, Basophils (%) (Auto) 0.8, Alpha Fetoprotein [Pending], Hepatitis C Antibody [Pending] Height (Feet): 5 Height (Inches): 4.00 Weight (Pounds): 148 Objective Debilitated AA woman NCAT supple CTA RR abd soft ND NT no edema Assessment/Plan Status: stable Assessment/Plan: Assessment - recurrent severe Anemia: - ? ESRD - ? Bone marrow d/o (pancytopenia) - ? GI loss - s/p recent negative EGD/Colonoscopy/capsule endoscopy - no Sx of GIB, and no Iron deficiency - ? Bone marrow d/o - but now OB (+) --> EGD unrevealing - recurrent anorexia - ESRD - h/o CHF - RAD Recommendations - check labs - consider hematology eval - follow CBC Mina Rao MD Aug 23, 2020 23:15
[2020-08-24] VITALS: BP 134/63
[2020-08-24 04:00] VITALS: BP 131/61
[2020-08-24] MEDS: cloNIDine 0.2mg Tab GT SCH ×3 (05:56→22:00)
--- NOTE | 2020-08-24 07:05 | Hematology/Onc Progress Note ---
Assessment/Plan Assessment/Plan Assessment and Recs # Pancytopenia that has been persistent last few years, reviewed prior labs and imaging, does show evidence of cirrhosis and splenoemgaly, is chronic --> us abd: Cirrhosis of the liver with signs of portal hypertension including ascites and splenomegaly. --> anemia panel reviewed --> keep hgb >8 with epo as needed --> give above of cirrhosis/splenomegaly hold off teresa marrow biopsy --> per GI, for EGD/SB enteroscopy --> plt 104 --> wbc 3.2 --> hgb 8 # End-stage renal disease. Evaluation reveals profound anemia. -> hd as per Dr. Lemus --> right arm fistula acces # Hypotension --> fluids as needed, pressors prn. # Elevated lactic acid level # History of GI bleed # hx cva # AMS # Recurrent anorexia Appreciate consultation and ahritha NUNEZ Subjective Constitutional: Denies: no symptoms, chills, fever, malaise, weakness, other Cardiovascular: Denies: no symptoms, chest pain, edema, irregular heart rate, lightheadedness, palpitations, syncope, other Gastrointestinal/Abdominal: Denies: no symptoms, abdomen distended, abdominal pain, black stools, tarry stools, blood in stool, constipated, diarrhea, difficulty swallowing, nausea, poor appetite, poor fluid intake, rectal bleeding, vomiting, other Genitourinary: Denies: no symptoms, burning, discharge, frequency, flank pain, hematuria, incontinence, pain, urgency, other Neurologic/Psychiatric: Denies: no symptoms, anxiety, depressed, emotional problems, headache, numbness, paresthesia, pre-existing deficit, seizure, tingling, tremors, weakness, other Endocrine: Denies: no symptoms, excessive sweating, flushing, intolerance to cold, intolerance to heat, increased hunger, increased thirst, increased urine, unexplained weight gain, unexplained weight loss, other Hematologic/Lymphatic: Denies: no symptoms, anemia, easy bleeding, easy bruising, adenopathy, other Allergies: Coded Allergies: ERYTHROMYCIN BASE (Unverified Allergy, Intermediate, 07/14/19) Per patient not allergic to medications or food Subjective 08/24 labs pending, no bleeding, cbc ordered, hgb has bee stable Objective Objective Current Medications Medications (Trade) Dose Ordered Sig/Jonathan Route PRN Reason Start Time Stop Time Status Last Admin Dose Admin Acetaminophen (Tylenol) 650 mg QHS PRN GT For Pain and fever 08/17/20 16:00 09/16/20 15:59 08/18/20 17:40 Acetaminophen/ Hydrocodone Bitart ([place] 10) 1 tab Q4H PRN GT For Pain 4-10 08/18/20 18:00 08/25/20 17:59 08/21/20 23:14 Amlodipine Besylate (Norvasc) 5 mg DAILY ORAL 08/23/20 09:00 09/22/20 08:59 08/23/20 08:44 Cinacalcet (Sensipar) 60 mg DAILY GT 08/18/20 09:00 11/16/20 08:59 08/23/20 08:43 Clonidine HCl (Catapres tab) 0.2 mg Q8HR GT 08/17/20 18:00 11/15/20 17:59 08/24/20 05:56 Docusate Sodium (Colace) 250 mg DAILY GT 08/18/20 09:00 09/17/20 08:59 08/23/20 08:43 Levothyroxine Sodium (Synthroid) 125 mcg DAILY GT 08/18/20 09:00 09/17/20 08:59 08/23/20 08:43 Metoprolol Tartrate (Lopressor) 50 mg EVERY 12 HOURS GT 08/17/20 21:00 11/15/20 20:59 08/23/20 21:12 Pantoprazole (Protonix) 40 mg EVERY 12 HOURS IVP 08/17/20 21:00 09/16/20 20:59 08/23/20 21:12 Temazepam (Restoril) 15 mg QHS ORAL 08/23/20 21:00 08/30/20 20:59 08/23/20 21:11 Vancomycin HCl (Vanco pharmacy to dose) 1 ea DAILY PRN MISC Per rx protocol 08/19/20 14:00 09/18/20 13:59 Last 24 Hour Vital Signs Date Time Temp Pulse Resp B/P (MAP) Pulse Ox O2 Delivery O2 Flow Rate FiO2 08/24/20 05:56 131/61 08/24/20 04:00 98.2 76 20 131/61 (84) 97 08/24/20 00:00 98.2 74 22 134/63 (86) 97 08/23/20 22:25 Nasal Cannula 2.0 08/23/20 21:12 74 134/55 08/23/20 21:12 134/55 08/23/20 20:00 99.0 74 22 134/55 (81) 97 08/23/20 16:00 97.7 75 18 129/54 (79) 98 75 08/23/20 13:15 127/55 08/23/20 12:00 97.6 72 18 127/55 (79) 98 72 08/23/20 09:00 Nasal Cannula 2.0 08/23/20 08:44 69 123/64 08/23/20 08:43 69 123/64 08/23/20 08:00 97.2 69 20 123/64 (83) 99 08/23/20 06:01 144/68 08/23/20 04:00 98.9 78 18 144/73 (96) 97 08/23/20 00:00 98.9 77 18 150/73 (98) 98 08/22/20 22:58 77 153/72 08/22/20 22:58 153/72 08/22/20 21:00 Nasal Cannula 2.0 08/22/20 20:00 98.9 77 18 153/72 (99) 98 08/22/20 16:00 97.6 81 18 145/67 (93) 98 08/22/20 15:59 78 18 100 Room Air 21 78 18 98 08/22/20 14:15 132/63 08/22/20 14:14 132/63 08/22/20 12:00 97.7 78 16 142/58 (86) 98 08/22/20 10:51 70 18 100 Room Air 21 73 18 98 08/22/20 09:00 Nasal Cannula 2.0 08/22/20 08:52 75 133/59 08/22/20 08:00 98.5 98 16 155/64 (94) 95 Intake and Output 08/23/20 08/24/20 19:00 07:00 Intake Total 720 ml Balance 720 ml Intake Oral 720 ml # Voids 2 2 Labs Test 08/21/20 08:50 08/22/20 06:05 08/23/20 07:35 White Blood Count 3.9 K/UL (4.8-10.8) 3.2 K/UL (4.8-10.8) 3.5 K/UL (4.8-10.8) Red Blood Count 2.60 M/UL (4.20-5.40) 2.71 M/UL (4.20-5.40) 2.64 M/UL (4.20-5.40) Hemoglobin 8.3 G/DL (12.0-16.0) 8.7 G/DL (12.0-16.0) 8.4 G/DL (12.0-16.0) Hematocrit 24.4 % (37.0-47.0) 25.5 % (37.0-47.0) 24.9 % (37.0-47.0) Mean Corpuscular Volume 94 FL (80-99) 94 FL (80-99) 94 FL (80-99) Mean Corpuscular Hemoglobin 32.1 PG (27.0-31.0) 32.3 PG (27.0-31.0) 32.0 PG (27.0-31.0) Mean Corpuscular Hemoglobin Concent 34.2 G/DL (32.0-36.0) 34.3 G/DL (32.0-36.0) 33.9 G/DL (32.0-36.0) Red Cell Distribution Width 17.7 % (11.6-14.8) 17.1 % (11.6-14.8) 16.4 % (11.6-14.8) Platelet Count 124 K/UL (150-450) 108 K/UL (150-450) 117 K/UL (150-450) Mean Platelet Volume 6.6 FL (6.5-10.1) 6.4 FL (6.5-10.1) 7.9 FL (6.5-10.1) Neutrophils (%) (Auto) 69.9 % (45.0-75.0) % (45.0-75.0) 67.0 % (45.0-75.0) Lymphocytes (%) (Auto) 16.2 % (20.0-45.0) % (20.0-45.0) 19.9 % (20.0-45.0) Monocytes (%) (Auto) 10.5 % (1.0-10.0) % (1.0-10.0) 9.9 % (1.0-10.0) Eosinophils (%) (Auto) 2.4 % (0.0-3.0) % (0.0-3.0) 2.5 % (0.0-3.0) Basophils (%) (Auto) 1.0 % (0.0-2.0) % (0.0-2.0) 0.8 % (0.0-2.0) Random Vancomycin Level 20.9 ug/mL Differential Total Cells Counted 100 Neutrophils % (Manual) 63 % (45-75) Lymphocytes % (Manual) 25 % (20-45) Monocytes % (Manual) 9 % (1-10) Eosinophils % (Manual) 3 % (0-3) Basophils % (Manual) 0 % (0-2) Band Neutrophils 0 % (0-8) Platelet Estimate Decreased Platelet Morphology Normal Hypochromasia 2+ Anisocytosis 1+ Hepatitis C Antibody >11.0 s/co ratio Height (Feet): 5 Height (Inches): 4.00 Weight (Pounds): 148 Lymphatic: fixed other Objective Physical Exam Sp02 Ep: reviewed, normal General: lethargic, other, Chronically Ill HEENT: moist mucus membranes, perrl, full rom Respiratory: lungs clear, normal breath sounds, no respiratory distress Cardiovascular: regular rate, rhythm Gastrointestinal: non tender, soft, Genitourinary: no CVA tenderness Musculoskeletal: back normal Neurologic: oriented - X1, sensory intact, motor weakness - Diffuse Psychiatric: depressed affect Andres Carson MD Aug 24, 2020 07:05
--- NOTE | 2020-08-24 07:08 | NUR ---
NURSE HAND-OFF: Important Events on Shift:New IV Patient Status: WNL Diet: Renal Pending Orders: Pending Results/Labs: Pending MD notification: Latest Vital Signs: Temperature 98.2 , Pulse 76 , B/P 131 /61 , Respiratory Rate 20 , O2 SAT 97 , Nasal Cannula, O2 Flow Rate 2.0 . Vital Sign Comment: WNL Latest Virgen Fall Score: 45 Fall Risk: High Risk Safety Measures: Call light Within Reach, Bed Alarm Zone 1, Side Rails Side Rails x2, Bed position Low and Locked. Fall Precautions: Yellow Socks Yellow Gown Door Sign Patient Fall Education Report given to ENRIQUE Han.
--- NOTE | 2020-08-24 07:35 | NUR ---
NURSE NOTES: Patient awake, alert x4; garbled; on room air, no sing of distress and shortness of breath; no sing of chest pain; IV Right For-Arm flushes well; Hemodialysis access Right Arm Fistula; side rails up x2, breaks engaged, bed at lowest position, call light within reach; will keep monitoring.
[2020-08-24 08:00] VITALS: BP_SYST 124; BP_SYST 152; BP_DIAS 117; BP_DIAS 69
[2020-08-24] MEDS ORDERED: Heparin Sod 1000 units/ml 10ml IV PRN (08:42)
[2020-08-24] MEDS: Metoprolol Tartrate 50mg tab GT SCH ×2 (09:00→20:57)
[2020-08-24] MEDS: Docusate 100mg/10ml Liq GT SCH (09:13)
[2020-08-24] MEDS: Levothyroxine 125mcg tab GT SCH (09:14)
[2020-08-24] MEDS: Pantoprazole Inj IVP SCH ×2 (09:14→20:57)
[2020-08-24] MEDS: Sensipar 30mg Tab GT SCH (09:14)
--- NOTE | 2020-08-24 09:49 | General Progress Note ---
Subjective ROS Limited/Unobtainable: No Constitutional: Reports: malaise, weakness HEENT: Reports: no symptoms Cardiovascular: Reports: no symptoms Respiratory: Reports: no symptoms Gastrointestinal/Abdominal: Reports: no symptoms Genitourinary: Reports: no symptoms Neurologic/Psychiatric: Reports: pre-existing deficit Endocrine: Reports: no symptoms Hematologic/Lymphatic: Reports: no symptoms Allergies: Coded Allergies: ERYTHROMYCIN BASE (Unverified Allergy, Intermediate, 07/14/19) Per patient not allergic to medications or food All Systems: reviewed and negative except above Subjective no events. w/o complaints. no reports of bleeding. no fever or chills. no sob. +blood cultures noted. completed iv abx, . echo neg for veg. eating better. appetite "better. cards and heme appreciated Objective Last 24 Hour Vital Signs Date Time Temp Pulse Resp B/P (MAP) Pulse Ox O2 Delivery O2 Flow Rate FiO2 08/24/20 08:00 98.2 71 20 124/69 (87) 96 08/24/20 05:56 131/61 08/24/20 04:00 98.2 76 20 131/61 (84) 97 08/24/20 00:00 98.2 74 22 134/63 (86) 97 08/23/20 22:25 Nasal Cannula 2.0 08/23/20 21:12 74 134/55 08/23/20 21:12 134/55 08/23/20 20:00 99.0 74 22 134/55 (81) 97 08/23/20 16:00 97.7 75 18 129/54 (79) 98 75 08/23/20 13:15 127/55 08/23/20 12:00 97.6 72 18 127/55 (79) 98 72 Intake and Output 08/23/20 08/24/20 19:00 07:00 Intake Total 720 ml Balance 720 ml Intake Oral 720 ml # Voids 2 2 Laboratory Tests 08/24/20 07:10: Random Vancomycin Level 29.4, Hepatitis C Antibody [Pending], Hepatitis C RNA (PCR) IUs/ml [Pending], Hepatitis C RNA (PCR) log IUs/ml [Pending] Height (Feet): 5 Height (Inches): 4.00 Weight (Pounds): 148 Objective General Appearance: WD/WN, alert EENT: normal ENT inspection Neck: non-tender, normal alignment, supple Cardiovascular: normal peripheral pulses, normal rate, regular rhythm Respiratory/Chest: chest wall non-tender, lungs clear, normal breath sounds, no respiratory distress Abdomen: normal bowel sounds, non tender, soft, no organomegaly Extremities: normal range of motion Edema: no edema noted Arm (L), no edema noted Arm (R) 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, alert, responsive Skin: normal pigmentation Assessment/Plan Problem List: (1) CKD (chronic kidney disease) stage 4, GFR 15-29 ml/min ICD Codes: N18.4 - Chronic kidney disease, stage 4 (severe) SNOMED: 191840552 (2) End-stage renal disease ICD Codes: N18.6 - End stage renal disease SNOMED: 37744310 (3) Hypothyroidism ICD Codes: E03.9 - Hypothyroidism SNOMED: 09700398 (4) Fever ICD Codes: R50.9 - Fever, unspecified SNOMED: 286464197 (5) Anemia in chronic kidney disease ICD Codes: N18.9 - Chronic kidney disease, unspecified; D63.1 - Anemia in chronic kidney disease SNOMED: 861216424 (6) GI bleed ICD Codes: K92.2 - Gastrointestinal hemorrhage, unspecified SNOMED: 60629344 (7) History of GI bleed ICD Codes: Z87.19 - Personal history of other diseases of the digestive system SNOMED: 650313960 (8) CHF exacerbation ICD Codes: I50.9 - Heart failure, unspecified SNOMED: 950809772, 07411937223147 (9) ESRD (end stage renal disease) on dialysis ICD Codes: N18.6 - End stage renal disease; Z99.2 - Dependence on renal dialysis SNOMED: 920806457 Status: stable Assessment/Plan: monitor h/h transfuse as needed monitor for bleeding PPI rx off hydralazine- may suppress BM ?bone marrow biopsy iv abx follow up cultures HD per renal Chema Hendricks MD Aug 24, 2020 09:49
[2020-08-24 11:06] LABS: BASOPHILS % (AUTO) 3.8 % (0.0-2.0); HEMATOCRIT 28.4 % (37.0-47.0); HEMOGLOBIN 9.6 G/DL (12.0-16.0); LYMPHOCYTES % (AUTO) 15.6 % (20.0-45.0); MEAN CORPUSCULAR VOLUME 95 FL (80-99); MONOCYTES % (AUTO) 12.9 % (1.0-10.0); NEUTROPHILS % (AUTO) 65.6 % (45.0-75.0); PLATELET COUNT 124 K/UL (150-450); RED BLOOD COUNT 2.99 M/UL (4.20-5.40); RED CELL DISTRIBUTION WIDTH 16.2 % (11.6-14.8); WHITE BLOOD COUNT 4.4 K/UL (4.8-10.8)
--- NOTE | 2020-08-24 11:12 | Infectious Diseases Prog Note ---
Assessment/Plan Assessment/Plan antibiotics : vancomycin iv A 1. coag neg staph ? sepsis 2. renal failure on HD 3. CHF 4. anemia P 1. d/c iv vancomycin 2. will follow up cultures Subjective Constitutional: Denies: fever, chills Respiratory: Denies: shortness of breath, dry cough Gastrointestinal/Abdominal: Denies: nausea, vomiting, diarrhea Musculoskeletal: Denies: pain Allergies: Coded Allergies: ERYTHROMYCIN BASE (Unverified Allergy, Intermediate, 07/14/19) Per patient not allergic to medications or food Objective Last 24 Hour Vital Signs Date Time Temp Pulse Resp B/P (MAP) Pulse Ox O2 Delivery O2 Flow Rate FiO2 08/24/20 09:00 Nasal Cannula 2.0 08/24/20 08:00 98.2 71 20 124/69 (87) 96 08/24/20 05:56 131/61 08/24/20 04:00 98.2 76 20 131/61 (84) 97 08/24/20 00:00 98.2 74 22 134/63 (86) 97 08/23/20 22:25 Nasal Cannula 2.0 08/23/20 21:12 74 134/55 08/23/20 21:12 134/55 08/23/20 20:00 99.0 74 22 134/55 (81) 97 08/23/20 16:00 97.7 75 18 129/54 (79) 98 75 08/23/20 13:15 127/55 08/23/20 12:00 97.6 72 18 127/55 (79) 98 72 Height (Feet): 5 Height (Inches): 4.00 Weight (Pounds): 148 Respiratory/Chest: lungs clear Cardiovascular: normal rate, regular rhythm, no gallop/murmur Abdomen: soft, non tender Extremities: no edema Laboratory Tests Test 08/24/20 07:10 08/24/20 10:15 Random Vancomycin Level 29.4 ug/mL Hepatitis C Antibody Pending Hepatitis C RNA (PCR) IUs/ml Pending Hepatitis C RNA (PCR) log IUs/ml Pending White Blood Count 4.4 K/UL (4.8-10.8) L Red Blood Count 2.99 M/UL (4.20-5.40) L Hemoglobin 9.6 G/DL (12.0-16.0) L Hematocrit 28.4 % (37.0-47.0) L Mean Corpuscular Volume 95 FL (80-99) Mean Corpuscular Hemoglobin 32.2 PG (27.0-31.0) H Mean Corpuscular Hemoglobin Concent 33.9 G/DL (32.0-36.0) Red Cell Distribution Width 16.2 % (11.6-14.8) H Platelet Count 124 K/UL (150-450) L Mean Platelet Volume 7.5 FL (6.5-10.1) Neutrophils (%) (Auto) 65.6 % (45.0-75.0) Lymphocytes (%) (Auto) 15.6 % (20.0-45.0) L Monocytes (%) (Auto) 12.9 % (1.0-10.0) H Eosinophils (%) (Auto) 2.0 % (0.0-3.0) Basophils (%) (Auto) 3.8 % (0.0-2.0) H Current Medications Medications (Trade) Dose Ordered Sig/Jonathan Route PRN Reason Start Time Stop Time Status Last Admin Dose Admin Acetaminophen (Tylenol) 650 mg QHS PRN GT For Pain and fever 08/17/20 16:00 09/16/20 15:59 08/18/20 17:40 Acetaminophen/ Hydrocodone Bitart ([place] 10/325) 1 tab Q4H PRN GT For Pain 4-10 08/18/20 18:00 08/25/20 17:59 08/21/20 23:14 Amlodipine Besylate (Norvasc) 5 mg DAILY ORAL 08/23/20 09:00 09/22/20 08:59 08/23/20 08:44 Cinacalcet (Sensipar) 60 mg DAILY GT 08/18/20 09:00 11/16/20 08:59 08/24/20 09:14 Clonidine HCl (Catapres tab) 0.2 mg Q8HR GT 08/17/20 18:00 11/15/20 17:59 08/24/20 05:56 Docusate Sodium (Colace) 250 mg DAILY GT 08/18/20 09:00 09/17/20 08:59 08/24/20 09:13 Heparin Sodium (Porcine) (Heparin Sod 1000 units/ml 10ml) 500 unit ONCE PRN IV HD 10/6/20 08:42 08/25/20 23:59 Levothyroxine Sodium (Synthroid) 125 mcg DAILY GT 08/18/20 09:00 09/17/20 08:59 08/24/20 09:14 Metoprolol Tartrate (Lopressor) 50 mg EVERY 12 HOURS GT 08/17/20 21:00 11/15/20 20:59 08/23/20 21:12 Pantoprazole (Protonix) 40 mg EVERY 12 HOURS IVP 08/17/20 21:00 09/16/20 20:59 08/24/20 09:14 Sodium Chloride 1,000 ml @ 500 mls/hr Q2H PRN IVLG sbp<90 during hd 08/24/20 08:42 08/25/20 23:59 Temazepam (Restoril) 15 mg QHS ORAL 08/23/20 21:00 08/30/20 20:59 08/23/20 21:11 Vancomycin HCl (Vanco pharmacy to dose) 1 ea DAILY PRN MISC Per rx protocol 08/19/20 14:00 09/18/20 13:59 Jessica Reyes MD Aug 24, 2020 11:12
[2020-08-24 12:00] VITALS: BP 139/64
--- NOTE | 2020-08-24 15:46 | Cardiology Report ---
APPROVED REPORT EXAM: Two-dimensional and M-mode echocardiogram with Doppler and color Doppler. INDICATION Endocarditis M-Mode DIMENSIONS IVSd1.0 (0.7-1.1cm)Left Atrium (MM)2.6 (1.6-4.0cm) LVDd5.2 (3.5-5.6cm)Aortic Root2.7 (2.0-3.7cm) PWd0.9 (0.7-1.1cm)Aortic Cusp Exc.1.6 (1.5-2.0cm) IVSs1.2 cmEPSS1.0 (>1.0cm) LVDs3.9 (2.5-4.0cm) PWs1.2 cm <Conclusion> Normal left ventricular chamber size, systolic function and wall motion. Left ventricular ejection fraction estimated to be 60-65 %. No evidence of left ventricular hypertrophy. Small pericardial effusion. All other cardiac chamber sizes are within normal limits. Focal aortic valve sclerosis with adequate cusp excursion cannot exclude bicuspid valve Mildly thickened mitral valve leaflets with normal excursion. Mitral annulus and aortic root calcification. Pulmonic valve not well visualized. Normal tricuspid valve structure. IVC is normal in size with physiological collapse. A color flow and spectral Doppler study was performed and revealed: Mild aortic regurgitation. Mild mitral regurgitation. Mitral diastolic velocities of E & A equalization & Tissue Doppler Imaging suggest mildly reduced left ventricular relaxation c/w impaired relaxation diastolic dysfunction. Mild tricuspid regurgitation. Tricuspid systolic velocities suggests peak right ventricular systolic pressure of 25 mmHg. Trace pulmonic regurgitation present.
[2020-08-24 16:00] VITALS: BP 123/72
--- NOTE | 2020-08-24 16:10 | NUR ---
NURSE NOTES: Patient is getting Hemodialysis;
--- NOTE | 2020-08-24 18:30 | NUR ---
NURSE NOTES: Patient dialyzed today, removed 2 Liters;
--- NOTE | 2020-08-24 19:44 | Nephrology Progress Note ---
Assessment/Plan Problem List: (1) ESRD (end stage renal disease) on dialysis (2) Anemia in chronic kidney disease (3) Hypertensive nephrosclerosis (4) Hypercalcemia (5) GI bleed (6) Bronchitis (7) Cirrhosis (8) Sepsis Plan HD 08/18 08/19,08/21 08/24 transfused, ppi, hhn, bacteremia staph likely contaminant, vanco, GI eval reviewed, prior Hb> 11 suspect occult gi bleed which may have stopped by arrival Subjective Constitutional: Reports: weakness HEENT: Reports: no symptoms Genitourinary: Reports: incontinence Neurologic/Psychiatric: Reports: pre-existing deficit Objective Objective Last 24 Hour Vital Signs Date Time Temp Pulse Resp B/P (MAP) Pulse Ox O2 Delivery O2 Flow Rate FiO2 08/24/20 16:00 97.3 74 18 123/72 (89) 100 08/24/20 12:00 98.4 73 19 139/64 (89) 100 08/24/20 09:00 Nasal Cannula 2.0 08/24/20 08:00 98.2 71 20 124/69 (87) 96 08/24/20 05:56 131/61 08/24/20 04:00 98.2 76 20 131/61 (84) 97 08/24/20 00:00 98.2 74 22 134/63 (86) 97 08/23/20 22:25 Nasal Cannula 2.0 08/23/20 21:12 74 134/55 08/23/20 21:12 134/55 08/23/20 20:00 99.0 74 22 134/55 (81) 97 Intake and Output 08/23/20 08/24/20 19:00 07:00 Intake Total 720 ml Balance 720 ml Intake Oral 720 ml # Voids 2 2 Laboratory Tests 08/24/20 07:10: Random Vancomycin Level 29.4, Hepatitis C Antibody [Pending], Hepatitis C RNA (PCR) IUs/ml [Pending], Hepatitis C RNA (PCR) log IUs/ml [Pending] 08/24/20 10:15: White Blood Count 4.4L, Red Blood Count 2.99L, Hemoglobin 9.6L, Hematocrit 28.4L , Mean Corpuscular Volume 95, Mean Corpuscular Hemoglobin 32.2H, Mean Corpuscular Hemoglobin Concent 33.9, Red Cell Distribution Width 16.2H, Platelet Count 124L, Mean Platelet Volume 7.5, Neutrophils (%) (Auto) 65.6, Lymphocytes (%) (Auto) 15.6L, Monocytes (%) (Auto) 12.9H, Eosinophils (%) (Auto) 2.0, Basophils (%) (Auto) 3.8H Height (Feet): 5 Height (Inches): 4.00 Weight (Pounds): 148 General Appearance: alert EENT: normal ENT inspection Neck: normal alignment Cardiovascular: regular rhythm Respiratory/Chest: lungs clear Abdomen: non tender, soft Extremities: no edema Neurologic: abnormal lead nitrate processor II-XII, motor weakness Jose Lemus MD Aug 24, 2020 19:44
--- NOTE | 2020-08-24 19:44 | NUR ---
HAND-OFF: Report given to ENRIQUE Almodovar.
--- NOTE | 2020-08-24 19:50 | NUR ---
NURSE NOTES: The patient completed her dialysis and is alert and oriented x4 and does not seem to be in any distress at this time.She is on room air with Resp even and unlabored.The patient has a R.upper arm AV shunt for dialysis access that is patent and asymptomatic with clean dressing noted. Both the bruit and thrill present on assessment as indicated.The skin is intact with abdomen non-distended.She has a Right Forearm 22g saline log that is patent and asymptomatic. She is on bedrest and the bed in low level, call light within easy reach, siderails up x2. Will continue to monitor as indicated
[2020-08-24 20:00] VITALS: BP 112/52
--- NOTE | 2020-08-24 20:08 | General Progress Note ---
Subjective Allergies: Coded Allergies: ERYTHROMYCIN BASE (Unverified Allergy, Intermediate, 07/14/19) Per patient not allergic to medications or food Subjective above noted awake and no complaints Objective Last 24 Hour Vital Signs Date Time Temp Pulse Resp B/P (MAP) Pulse Ox O2 Delivery O2 Flow Rate FiO2 08/24/20 16:00 97.3 74 18 123/72 (89) 100 08/24/20 12:00 98.4 73 19 139/64 (89) 100 08/24/20 09:00 Nasal Cannula 2.0 08/24/20 08:00 98.2 71 20 124/69 (87) 96 08/24/20 05:56 131/61 08/24/20 04:00 98.2 76 20 131/61 (84) 97 08/24/20 00:00 98.2 74 22 134/63 (86) 97 08/23/20 22:25 Nasal Cannula 2.0 08/23/20 21:12 74 134/55 08/23/20 21:12 134/55 Intake and Output 08/23/20 08/24/20 19:00 07:00 Intake Total 720 ml Balance 720 ml Intake Oral 720 ml # Voids 2 2 Laboratory Tests 08/24/20 07:10: Random Vancomycin Level 29.4, Hepatitis C Antibody [Pending], Hepatitis C RNA (PCR) IUs/ml [Pending], Hepatitis C RNA (PCR) log IUs/ml [Pending] 08/24/20 10:15: White Blood Count 4.4L, Red Blood Count 2.99L, Hemoglobin 9.6L, Hematocrit 28.4L , Mean Corpuscular Volume 95, Mean Corpuscular Hemoglobin 32.2H, Mean Corpuscular Hemoglobin Concent 33.9, Red Cell Distribution Width 16.2H, Platelet Count 124L, Mean Platelet Volume 7.5, Neutrophils (%) (Auto) 65.6, Lymphocytes (%) (Auto) 15.6L, Monocytes (%) (Auto) 12.9H, Eosinophils (%) (Auto) 2.0, Baso phils (%) (Auto) 3.8H Height (Feet): 5 Height (Inches): 4.00 Weight (Pounds): 148 Objective Debilitated AA woman NCAT supple CTA RR abd soft ND NT no edema Assessment/Plan Status: stable Assessment/Plan: Assessment - recurrent severe Anemia: - ? ESRD - ? Bone marrow d/o vs Cirrhosis (pancytopenia) - ? GI loss - s/p recent negative EGD/Colonoscopy/capsule endoscopy - no Sx of GIB, and no Iron deficiency - but now OB (+) --> EGD unrevealing - recurrent anorexia - ESRD - h/o CHF - RAD Recommendations - check labs - hematology eval noted - follow CBC Mina Rao MD Aug 24, 2020 20:08
[2020-08-24] MEDS: Acetaminophen 650mg/20.3ml GT PRN (20:57)
--- NOTE | 2020-08-24 23:23 | Cardiology Progress Note ---
Subjective DATE OF SERVICE: Aug 24, 2020 Remains on IV abx for S.capitis bacteremia. s/p PRBC transfusions - hemoglobin remains stable. No c/o CP or SOB EGD did not reveal any acute findings or bleeding source Hydralazine discont'd, as may suppress BM. No current plan for BM biopsy. Objective Last 24 Hour Vital Signs Date Time Temp Pulse Resp B/P (MAP) Pulse Ox O2 Delivery O2 Flow Rate FiO2 08/24/20 22:00 101/49 08/24/20 20:57 75 112/52 08/24/20 20:00 98.4 75 20 112/52 (72) 98 08/24/20 16:00 97.3 74 18 123/72 (89) 100 08/24/20 12:00 98.4 73 19 139/64 (89) 100 08/24/20 09:00 Nasal Cannula 2.0 08/24/20 08:00 98.2 71 20 124/69 (87) 96 08/24/20 05:56 131/61 08/24/20 04:00 98.2 76 20 131/61 (84) 97 08/24/20 00:00 98.2 74 22 134/63 (86) 97 ROS: Unchanged from my evaluation of 08/17/20. HEENT: normal ENT inspection RHYTHM: NSR, PACs LUNGS: lungs clear bilaterally, diminished breath sounds CARDIAC: normal rate, regular rhythm, normal S1 and S2, systolic murmur - 1/6 systolic murmur at base ABDOMEN: normal bowel sounds, non tender, soft, no organomegaly EXTREMITIES: normal range of motion, trace edema Laboratory Tests Test 08/24/20 07:10 08/24/20 10:15 Random Vancomycin Level 29.4 ug/mL Hepatitis C Antibody Pending Hepatitis C RNA (PCR) IUs/ml Pending Hepatitis C RNA (PCR) log IUs/ml Pending White Blood Count 4.4 K/UL (4.8-10.8) L Red Blood Count 2.99 M/UL (4.20-5.40) L Hemoglobin 9.6 G/DL (12.0-16.0) L Hematocrit 28.4 % (37.0-47.0) L Mean Corpuscular Volume 95 FL (80-99) Mean Corpuscular Hemoglobin 32.2 PG (27.0-31.0) H Mean Corpuscular Hemoglobin Concent 33.9 G/DL (32.0-36.0) Red Cell Distribution Width 16.2 % (11.6-14.8) H Platelet Count 124 K/UL (150-450) L Mean Platelet Volume 7.5 FL (6.5-10.1) Neutrophils (%) (Auto) 65.6 % (45.0-75.0) Lymphocytes (%) (Auto) 15.6 % (20.0-45.0) L Monocytes (%) (Auto) 12.9 % (1.0-10.0) H Eosinophils (%) (Auto) 2.0 % (0.0-3.0) Basophils (%) (Auto) 3.8 % (0.0-2.0) H Assessment/Plan Assessment/Plan S. capitis bacteremia with increased risk for endocarditis, but no echocardiographic criteria noted. Severe anemia ESRD Hx g-tube Hypertension/HHD Hx hypothyroidism - now euthyroid Chronic diastolic CHF Cerebrovascular disease BM suppression with pancytopenia Off hydralazine; amlodipine titration. PRBC tx for hemoglobin below 7 Epogen and vitamin suppl No anti-plt rx HD/UF Titrate anti-HTN regimen Abx per Lance Baird MD Aug 24, 2020 23:23
[2020-08-25] VITALS: BP 110/21
[2020-08-25 04:00] VITALS: BP 120/56
--- NOTE | 2020-08-25 05:10 | NUR ---
NURSE NOTES: The patient is alert and stable and was able to sleep all night long.Will continue to monitor as indicated
[2020-08-25] MEDS: cloNIDine 0.2mg Tab GT SCH ×2 (06:00→13:15)
--- NOTE | 2020-08-25 06:00 | NUR ---
NURSE NOTES: Clonidine was held because the BP is low
--- NOTE | 2020-08-25 06:32 | NUR ---
HAND-OFF: Report given to Cheryl NUNEZ.
--- NOTE | 2020-08-25 06:55 | Hematology/Onc Progress Note ---
Assessment/Plan Assessment/Plan Assessment and Recs # Pancytopenia that has been persistent last few years, reviewed prior labs and imaging, does show evidence of cirrhosis and splenoemgaly, is chronic --> us abd: Cirrhosis of the liver with signs of portal hypertension including ascites and splenomegaly. --> anemia panel reviewed --> keep hgb >8 with epo as needed --> give above of cirrhosis/splenomegaly hold off teresa marrow biopsy --> per GI, for s/p recent negative EGD/Colonoscopy/capsule endoscopy --> EGD unrevealing --> plt 104->122 --> wbc 3.2-->4.4 --> hgb 8-->9.6 # Hepattiis C+ ab test --> obtain repeat us abd # End-stage renal disease. Evaluation reveals profound anemia. -> hd as per Dr. Lemus --> right arm fistula acces # Hypotension --> fluids as needed, pressors prn. # Elevated lactic acid level # History of GI bleed # hx cva # AMS # Recurrent anorexia Appreciate consultation and dw RN Subjective Constitutional: Denies: no symptoms, chills, fever, malaise, weakness, other HEENT: Denies: no symptoms, eye pain, blurred vision, tearing, double vision, ear pain, ear discharge, nose pain, nose congestion, throat pain, throat swelling, mouth pain, mouth swelling, other Cardiovascular: Denies: no symptoms, chest pain, edema, irregular heart rate, lightheadedness, palpitations, syncope, other Respiratory: Denies: no symptoms, cough, shortness of breath, SOB with excertion, SOB at rest, sputum, wheezing, other Neurologic/Psychiatric: Denies: no symptoms, anxiety, depressed, emotional problems, headache, numbness, paresthesia, pre-existing deficit, seizure, tingling, tremors, weakness, other Endocrine: Denies: no symptoms, excessive sweating, flushing, intolerance to cold, intolerance to heat, increased hunger, increased thirst, increased urine, unexplained weight gain, unexplained weight loss, other Hematologic/Lymphatic: Denies: no symptoms, anemia, easy bleeding, easy bruising, adenopathy, other Allergies: Coded Allergies: ERYTHROMYCIN BASE (Unverified Allergy, Intermediate, 07/14/19) Per patient not allergic to medications or food Subjective 08/24 labs pending, no bleeding, cbc ordered, hgb has bee stable 08/25 no major events overnight, remains comfortable, no bleeding Objective Objective Current Medications Medications (Trade) Dose Ordered Sig/Jonathan Route PRN Reason Start Time Stop Time Status Last Admin Dose Admin Acetaminophen (Tylenol) 650 mg QHS PRN GT For Pain and fever 08/17/20 16:00 09/16/20 15:59 08/24/20 20:57 Acetaminophen/ Hydrocodone Bitart ([place] 10) 1 tab Q4H PRN GT For Pain 4-10 08/18/20 18:00 08/25/20 17:59 08/21/20 23:14 Amlodipine Besylate (Norvasc) 5 mg DAILY ORAL 08/23/20 09:00 09/22/20 08:59 08/23/20 08:44 Cinacalcet (Sensipar) 60 mg DAILY GT 08/18/20 09:00 11/16/20 08:59 08/24/20 09:14 Clonidine HCl (Catapres tab) 0.2 mg Q8HR GT 08/17/20 18:00 11/15/20 17:59 08/24/20 05:56 Docusate Sodium (Colace) 250 mg DAILY GT 08/18/20 09:00 09/17/20 08:59 08/24/20 09:13 Epoetin Phu (Epoetin Phu(ESRD on dialysis)) 10,000 unit SUN-WED-SUN SUBQ 08/25/20 21:00 11/23/20 20:59 Heparin Sodium (Porcine) (Heparin Sod 1000 units/ml 10ml) 500 unit ONCE PRN IV HD 08/24/20 08:42 08/25/20 23:59 Levothyroxine Sodium (Synthroid) 125 mcg DAILY GT 08/18/20 09:00 09/17/20 08:59 08/24/20 09:14 Metoprolol Tartrate (Lopressor) 50 mg EVERY 12 HOURS GT 08/17/20 21:00 11/15/20 20:59 08/24/20 20:57 Pantoprazole (Protonix) 40 mg EVERY 12 HOURS IVP 08/17/20 21:00 09/16/20 20:59 08/24/20 20:57 Sodium Chloride 1,000 ml @ 500 mls/hr Q2H PRN IVLG sbp<90 during hd 08/24/20 08:42 08/25/20 23:59 Temazepam (Restoril) 15 mg QHS ORAL 08/23/20 21:00 08/30/20 20:59 08/24/20 20:57 Last 24 Hour Vital Signs Date Time Temp Pulse Resp B/P (MAP) Pulse Ox O2 Delivery O2 Flow Rate FiO2 08/25/20 06:00 105/51 08/25/20 04:00 98.2 72 20 120/56 (77) 97 08/25/20 00:00 99.0 74 19 110/21 (50) 98 08/24/20 22:00 101/49 08/24/20 21:00 Nasal Cannula 2.0 08/24/20 20:57 75 112/52 08/24/20 20:00 98.4 75 20 112/52 (72) 98 08/24/20 16:00 97.3 74 18 123/72 (89) 100 08/24/20 12:00 98.4 73 19 139/64 (89) 100 08/24/20 09:00 Nasal Cannula 2.0 08/24/20 08:00 98.2 71 20 124/69 (87) 96 08/24/20 05:56 131/61 08/24/20 04:00 98.2 76 20 131/61 (84) 97 08/24/20 00:00 98.2 74 22 134/63 (86) 97 08/23/20 22:25 Nasal Cannula 2.0 08/23/20 21:12 74 134/55 08/23/20 21:12 134/55 08/23/20 20:00 99.0 74 22 134/55 (81) 97 08/23/20 16:00 97.7 75 18 129/54 (79) 98 75 08/23/20 13:15 127/55 08/23/20 12:00 97.6 72 18 127/55 (79) 98 72 08/23/20 09:00 Nasal Cannula 2.0 08/23/20 08:44 69 123/64 08/23/20 08:43 69 123/64 08/23/20 08:00 97.2 69 20 123/64 (83) 99 Intake and Output 08/24/20 08/25/20 19:00 07:00 Intake Total 720 ml Output Total 2000 ml Balance 720 ml -2000 ml Intake Oral 720 ml Hemodialysis UF 2000 ml Labs Test 08/23/20 07:35 08/24/20 07:10 08/24/20 10:15 White Blood Count 3.5 K/UL (4.8-10.8) 4.4 K/UL (4.8-10.8) Red Blood Count 2.64 M/UL (4.20-5.40) 2.99 M/UL (4.20-5.40) Hemoglobin 8.4 G/DL (12.0-16.0) 9.6 G/DL (12.0-16.0) Hematocrit 24.9 % (37.0-47.0) 28.4 % (37.0-47.0) Mean Corpuscular Volume 94 FL (80-99) 95 FL (80-99) Mean Corpuscular Hemoglobin 32.0 PG (27.0-31.0) 32.2 PG (27.0-31.0) Mean Corpuscular Hemoglobin Concent 33.9 G/DL (32.0-36.0) 33.9 G/DL (32.0-36.0) Red Cell Distribution Width 16.4 % (11.6-14.8) 16.2 % (11.6-14.8) Platelet Count 117 K/UL (150-450) 124 K/UL (150-450) Mean Platelet Volume 7.9 FL (6.5-10.1) 7.5 FL (6.5-10.1) Neutrophils (%) (Auto) 67.0 % (45.0-75.0) 65.6 % (45.0-75.0) Lymphocytes (%) (Auto) 19.9 % (20.0-45.0) 15.6 % (20.0-45.0) Monocytes (%) (Auto) 9.9 % (1.0-10.0) 12.9 % (1.0-10.0) Eosinophils (%) (Auto) 2.5 % (0.0-3.0) 2.0 % (0.0-3.0) Basophils (%) (Auto) 0.8 % (0.0-2.0) 3.8 % (0.0-2.0) Alpha Fetoprotein 3.3 ng/mL (0.0-8.3) Hepatitis C Antibody >11.0 s/co ratio Random Vancomycin Level 29.4 ug/mL Height (Feet): 5 Height (Inches): 4.00 Weight (Pounds): 148 Objective Physical Exam Sp02 Ep: reviewed, normal General: lethargic, other, Chronically Ill HEENT: moist mucus membranes, perrl, full rom Respiratory: lungs clear, normal breath sounds, no respiratory distress Cardiovascular: regular rate, rhythm Gastrointestinal: non tender, soft, Genitourinary: no CVA tenderness Musculoskeletal: back normal Neurologic: oriented - X1, sensory intact, motor weakness - Diffuse Psychiatric: depressed affect Andres Carson MD Aug 25, 2020 06:55
--- NOTE | 2020-08-25 07:38 | NUR ---
NURSE NOTES: Report received from ENRIQUE Wise. Patient in bed, awake, alert and oriented x 4, verbal and able to make needs known. No SOB, bed in lowest position with breaks engaged and alarm on, denies any pain at this time, IV line intact on left FA, AV shunt present on RAEGAN, on room air, will continue to monitor and proceed with plan of care, call light within reach.
[2020-08-25 08:00] VITALS: BP 134/62
[2020-08-25 08:17] LABS: BASOPHILS % (AUTO) 1.4 % (0.0-2.0); EOSINOPHILS % (AUTO) 2.7 % (0.0-3.0); HEMATOCRIT 27.7 % (37.0-47.0); HEMOGLOBIN 9.5 G/DL (12.0-16.0); LYMPHOCYTES % (AUTO) 18.6 % (20.0-45.0); MEAN CORPUSCULAR VOLUME 94 FL (80-99); NEUTROPHILS % (AUTO) 69.3 % (45.0-75.0); PLATELET COUNT 135 K/UL (150-450); RED BLOOD COUNT 2.94 M/UL (4.20-5.40); RED CELL DISTRIBUTION WIDTH 16.1 % (11.6-14.8); WHITE BLOOD COUNT 4.2 K/UL (4.8-10.8)
[2020-08-25] MEDS: Sensipar 30mg Tab GT SCH (08:26)
[2020-08-25] MEDS: Metoprolol Tartrate 50mg tab GT SCH (08:27)
[2020-08-25] MEDS: Pantoprazole Inj IVP SCH ×2 (08:27→21:03)
[2020-08-25] MEDS: Docusate 100mg/10ml Liq GT SCH (08:27)
[2020-08-25] MEDS: Levothyroxine 125mcg tab GT SCH (08:28)
--- NOTE | 2020-08-25 11:04 | Infectious Diseases Prog Note ---
Assessment/Plan Assessment/Plan antibiotics : none A 1. coag neg staph ? sepsis 2. renal failure on HD 3. CHF 4. anemia P 1. observe off antibiotics 2. will follow up cultures Subjective ROS Limited/Unobtainable: Yes Allergies: Coded Allergies: ERYTHROMYCIN BASE (Unverified Allergy, Intermediate, 07/14/19) Per patient not allergic to medications or food Objective Last 24 Hour Vital Signs Date Time Temp Pulse Resp B/P (MAP) Pulse Ox O2 Delivery O2 Flow Rate FiO2 08/25/20 09:00 Nasal Cannula 2.0 08/25/20 08:27 74 134/62 08/25/20 08:27 74 134/62 08/25/20 08:00 99.0 74 20 134/62 (86) 100 08/25/20 06:00 105/51 08/25/20 04:00 98.2 72 20 120/56 (77) 97 08/25/20 00:00 99.0 74 19 110/21 (50) 98 08/24/20 22:00 101/49 08/24/20 21:00 Nasal Cannula 2.0 08/24/20 20:57 75 112/52 08/24/20 20:00 98.4 75 20 112/52 (72) 98 08/24/20 16:00 97.3 74 18 123/72 (89) 100 08/24/20 12:00 98.4 73 19 139/64 (89) 100 Height (Feet): 5 Height (Inches): 4.00 Weight (Pounds): 148 Respiratory/Chest: lungs clear Cardiovascular: normal rate, regular rhythm, no gallop/murmur Abdomen: soft, non tender Extremities: no edema Laboratory Tests Test 08/25/20 07:25 White Blood Count 4.2 K/UL (4.8-10.8) L Red Blood Count 2.94 M/UL (4.20-5.40) L Hemoglobin 9.5 G/DL (12.0-16.0) L Hematocrit 27.7 % (37.0-47.0) L Mean Corpuscular Volume 94 FL (80-99) Mean Corpuscular Hemoglobin 32.2 PG (27.0-31.0) H Mean Corpuscular Hemoglobin Concent 34.1 G/DL (32.0-36.0) Red Cell Distribution Width 16.1 % (11.6-14.8) H Platelet Count 135 K/UL (150-450) L Mean Platelet Volume 6.9 FL (6.5-10.1) Neutrophils (%) (Auto) 69.3 % (45.0-75.0) Lymphocytes (%) (Auto) 18.6 % (20.0-45.0) L Monocytes (%) (Auto) 8.0 % (1.0-10.0) Eosinophils (%) (Auto) 2.7 % (0.0-3.0) Basophils (%) (Auto) 1.4 % (0.0-2.0) Current Medications Medications (Trade) Dose Ordered Sig/Jonathan Route PRN Reason Start Time Stop Time Status Last Admin Dose Admin Acetaminophen (Tylenol) 650 mg QHS PRN GT For Pain and fever 08/17/20 16:00 09/16/20 15:59 08/24/20 20:57 Acetaminophen/ Hydrocodone Bitart ([place] 10/325) 1 tab Q4H PRN GT For Pain 4-10 08/18/20 18:00 08/25/20 17:59 08/21/20 23:14 Amlodipine Besylate (Norvasc) 5 mg DAILY ORAL 08/23/20 09:00 09/22/20 08:59 08/25/20 08:27 Cinacalcet (Sensipar) 60 mg DAILY GT 08/18/20 09:00 11/16/20 08:59 08/25/20 08:26 Clonidine HCl (Catapres tab) 0.2 mg Q8HR GT 08/17/20 18:00 11/15/20 17:59 08/24/20 05:56 Docusate Sodium (Colace) 250 mg DAILY GT 08/18/20 09:00 09/17/20 08:59 08/25/20 08:27 Epoetin Phu (Epoetin Phu(ESRD on dialysis)) 10,000 unit SUN-SUN-SUN SUBQ 08/25/20 21:00 11/23/20 20:59 Heparin Sodium (Porcine) (Heparin Sod 1000 units/ml 10ml) 500 unit ONCE PRN IV HD 08/24/20 08:42 08/25/20 23:59 Levothyroxine Sodium (Synthroid) 125 mcg DAILY GT 08/18/20 09:00 09/17/20 08:59 08/25/20 08:28 Metoprolol Tartrate (Lopressor) 50 mg EVERY 12 HOURS GT 08/17/20 21:00 11/15/20 20:59 08/25/20 08:27 Pantoprazole (Protonix) 40 mg EVERY 12 HOURS IVP 08/17/20 21:00 09/16/20 20:59 08/25/20 08:27 Sodium Chloride 1,000 ml @ 500 mls/hr Q2H PRN IVLG sbp<90 during hd 08/24/20 08:42 08/25/20 23:59 Temazepam (Restoril) 15 mg QHS ORAL 08/23/20 21:00 08/30/20 20:59 08/24/20 20:57 Jessica Reyes MD Aug 25, 2020 11:04
--- NOTE | 2020-08-25 11:17 | NUR ---
RD ASSESSMENT & RECOMMENDATIONS SEE CARE ACTIVITY FOR COMPLETE ASSESSMENT DAILY ESTIMATED NEEDS: Needs based on ESRD on HD 55kg abw 30-35 kcals/kg 7131-4548 total kcals 1.2-1.8 g protein/kg 66-99 g total protein Fluid per MD, on HD NUTRITION DIAGNOSIS: Altered nutrition related lab values R/T esrd, on HD as evidenced by creat 4.2, elev BNP (60214) CURRENT DIET:RENAL PO DIET RECOMMENDATIONS: RENAL DIET/ Texture as tolerated or per MECHANICAL COMMISSIONING ENGINEER ADDITIONAL RECOMMENDATIONS: 1) Daily calibrated bedscale wt 2) Record % intake of meals in EMR-> good intake noted 3) MECH[employer]ICAL COMMISSIONING ENGINEER evaluation for appropriate texture- h/o PEG, now removed - pt missing many teeth 4) Monitor lytes- K and phos wnl (labs not updated) 5) Nephrovite x 1 .
[2020-08-25 12:00] VITALS: BP 127/55
--- NOTE | 2020-08-25 15:28 | Nephrology Progress Note ---
Assessment/Plan Problem List: (1) ESRD (end stage renal disease) on dialysis (2) Anemia in chronic kidney disease (3) Hypertensive nephrosclerosis (4) Hypercalcemia (5) GI bleed (6) Bronchitis (7) Cirrhosis (8) Sepsis Plan HD 08/18 08/19,08/21 08/24 transfused, ppi, hhn, bacteremia staph likely contaminant, vanco given, GI eval reviewed, prior Hb> 11 suspect occult gi bleed which may have stopped by arrival, mobilize Subjective Constitutional: Reports: weakness HEENT: Reports: no symptoms Genitourinary: Reports: incontinence Neurologic/Psychiatric: Reports: pre-existing deficit Objective Objective Last 24 Hour Vital Signs Date Time Temp Pulse Resp B/P (MAP) Pulse Ox O2 Delivery O2 Flow Rate FiO2 08/25/20 13:15 127/55 08/25/20 12:00 97.7 74 18 127/55 (79) 100 08/25/20 09:00 Nasal Cannula 2.0 08/25/20 08:27 74 134/62 08/25/20 08:27 74 134/62 08/25/20 08:00 99.0 74 20 134/62 (86) 100 08/25/20 06:00 105/51 08/25/20 04:00 98.2 72 20 120/56 (77) 97 08/25/20 00:00 99.0 74 19 110/21 (50) 98 08/24/20 22:00 101/49 08/24/20 21:00 Nasal Cannula 2.0 08/24/20 20:57 75 112/52 08/24/20 20:00 98.4 75 20 112/52 (72) 98 08/24/20 16:00 97.3 74 18 123/72 (89) 100 Intake and Output 08/24/20 08/25/20 19:00 07:00 Intake Total 720 ml 260 ml Output Total 2000 ml Balance 720 ml -1740 ml Intake Oral 720 ml Other 260 ml Hemodialysis UF 2000 ml # Voids 1 Laboratory Tests 08/25/20 07:25: White Blood Count 4.2L, Red Blood Count 2.94L, Hemoglobin 9.5L, Hematocrit 27.7L , Mean Corpuscular Volume 94, Mean Corpuscular Hemoglobin 32.2H, Mean Corpuscular Hemoglobin Concent 34.1, Red Cell Distribution Width 16.1H, Platelet Count 135L, Mean Platelet Volume 6.9, Neutrophils (%) (Auto) 69.3, Lymphocytes (%) (Auto) 18.6L, Monocytes (%) (Auto) 8.0, Eosinophils (%) (Auto) 2.7, Basophils (%) (Auto) 1.4 Height (Feet): 5 Height (Inches): 4.00 Weight (Pounds): 148 General Appearance: no apparent distress, alert EENT: normal ENT inspection Neck: normal alignment Cardiovascular: regular rhythm Respiratory/Chest: lungs clear Abdomen: non tender, soft Extremities: no edema Neurologic: abnormal brush painter II-XII, motor weakness Jose Lemus MD Aug 25, 2020 15:28
[2020-08-25 16:00] VITALS: BP 126/56
--- NOTE | 2020-08-25 16:11 | Cardiology Report ---
APPROVED REPORT EKG Measurement Heart [id number] <Conclusion> Normal sinus rhythm Normal ECG
--- NOTE | 2020-08-25 16:44 | NUR ---
CASE MANAGEMENT:REVIEW SI;GI BLEED. ESRD ON HD. SEPSIS. 99.0 74 20 134/62 97% 2L NC H/H 9.5/27.7 BUN 29 CR 4.2 MAG 3.3 AST 38 ALB 2.6 IS;PROTONIX IV Q12 LOPRESSOR PO Q12 CLONIDINE PO Q8 SENSIPAR PO QD NORVASC PO QD MED SURG STATUS DCP;FROM HOME PLAN; FOLLOW UP CULTURES
--- NOTE | 2020-08-25 19:23 | NUR ---
NURSE HAND-OFF: Important Events on Shift:[Abdominal ultrasound result pending, safety and comfort, PT] Patient Status: [stable] Diet: [renal diet] Pending Orders: [] Pending Results/Labs:[] Pending MD notification:[] Latest Vital Signs: Temperature 98.2 , Pulse 72 , B/P 126 /56 , Respiratory Rate 20 , O2 SAT 97 , Nasal Cannula, O2 Flow Rate 2.0 . Vital Sign Comment: [] Latest Virgen Fall Score: 45 Fall Risk: High Risk Safety Measures: Call light Within Reach, Bed Alarm Zone 1, Side Rails Side Rails x2, Bed position Low and Locked. Fall Precautions: Yellow Socks Yellow Gown Door Sign Patient Fall Education Report given to [ENRIQUE Joy].
[2020-08-25 20:00] VITALS: BP 130/56
--- NOTE | 2020-08-25 20:20 | NUR ---
NURSE NOTES: Received patient awake, alert, verbal, resting in bed, comfortable.
--- NOTE | 2020-08-25 20:53 | General Progress Note ---
Subjective Allergies: Coded Allergies: ERYTHROMYCIN BASE (Unverified Allergy, Intermediate, 07/14/19) Per patient not allergic to medications or food Subjective above noted awake and no complaints Objective Last 24 Hour Vital Signs Date Time Temp Pulse Resp B/P (MAP) Pulse Ox O2 Delivery O2 Flow Rate FiO2 08/25/20 20:39 Nasal Cannula 2.0 08/25/20 20:00 97.7 78 17 130/56 (80) 97 08/25/20 16:00 98.2 72 20 126/56 (79) 97 08/25/20 13:15 127/55 08/25/20 12:00 97.7 74 18 127/55 (79) 100 08/25/20 09:00 Nasal Cannula 2.0 08/25/20 08:27 74 134/62 08/25/20 08:27 74 134/62 08/25/20 08:00 99.0 74 20 134/62 (86) 100 08/25/20 06:00 105/51 08/25/20 04:00 98.2 72 20 120/56 (77) 97 08/25/20 00:00 99.0 74 19 110/21 (50) 98 08/24/20 22:00 101/49 08/24/20 21:00 Nasal Cannula 2.0 08/24/20 20:57 75 112/52 Intake and Output 08/24/20 08/25/20 19:00 07:00 Intake Total 720 ml 260 ml Output Total 2000 ml Balance 720 ml -1740 ml Intake Oral 720 ml Other 260 ml Hemodialysis UF 2000 ml # Voids 1 Laboratory Tests 08/25/20 07:25: White Blood Count 4.2L, Red Blood Count 2.94L, Hemoglobin 9.5L, Hematocrit 27.7L , Mean Corpuscular Volume 94, Mean Corpuscular Hemoglobin 32.2H, Mean Corpuscular Hemoglobin Concent 34.1, Red Cell Distribution Width 16.1H, Platelet Count 135L, Mean Platelet Volume 6.9, Neutrophils (%) (Auto) 69.3, Lymphocytes (%) (Auto) 18.6L, Monocytes (%) (Auto) 8.0, Eosinophils (%) (Auto) 2.7, Basophils (%) (Auto) 1.4 Height (Feet): 5 Height (Inches): 4.00 Weight (Pounds): 148 Objective Debilitated AA woman NCAT supple CTA RR abd soft ND NT no edema Assessment/Plan Status: stable Assessment/Plan: Assessment - recurrent severe Anemia: - ? ESRD - ? Bone marrow d/o vs Cirrhosis (pancytopenia) - ? GI loss - s/p recent negative EGD/Colonoscopy/capsule endoscopy - no Sx of GIB, and no Iron deficiency - but now OB (+) --> EGD unrevealing - recurrent anorexia - ESRD - h/o CHF - RAD Recommendations - check labs - hematology eval noted - follow CBC Mina Rao MD Aug 25, 2020 20:53
[2020-08-25] MEDS: Metoprolol Tartrate 50mg tab ORAL SCH (21:03)
[2020-08-25] MEDS: Epoetin Alfa-EPBX(ESRD on dialysis)10,000 unit/ml vial SUBQ SCH (21:04)
[2020-08-25] MEDS: Acetaminophen 650mg/20.3ml ORAL PRN (21:05)
[2020-08-25] MEDS: cloNIDine 0.2mg Tab ORAL SCH (21:38)
--- NOTE | 2020-08-25 22:17 | Diagnostic Imaging Report ---
Indication: Abdominal pain Technique: Cervantes-scale and duplex images of the upper abdomen were obtained Comparison: 10/14/2019 Findings: Gallbladder demonstrates gallstones. Sonographic Zhang's sign is negative. Common bile duct measures 6 mm in diameter. No intrahepatic biliary ductal dilatation. Liver demonstrates mild surface nodularity and enlargement. Normal echogenicity. No focal abnormality Portal vein and hepatic veins are patent. Pancreas is unremarkable. Spleen is enlarged, measuring 13.7 cm long axis dimension. Left kidney measures 9.2 cm in length. Right kidney measures 9.2 cm length. Both kidneys demonstrate slightly increased echogenicity. There is no hydronephrosis. Both kidneys demonstrate small cysts . Non-aneurysmal abdominal aorta . Impression: Slight hepatic surface nodularity, suggests cirrhotic change. The liver is also enlarged. Cholelithiasis. Negative for dilated bile ducts Splenomegaly Increased echogenicity of the kidneys. May indicate medical renal disease. Negative for hydronephrosis Incidental finding bilateral renal cysts
--- NOTE | 2020-08-25 22:37 | General Progress Note ---
Subjective ROS Limited/Unobtainable: No Constitutional: Reports: malaise, weakness HEENT: Reports: no symptoms Cardiovascular: Reports: no symptoms Respiratory: Reports: no symptoms Gastrointestinal/Abdominal: Reports: no symptoms Genitourinary: Reports: no symptoms Neurologic/Psychiatric: Reports: pre-existing deficit Endocrine: Reports: no symptoms Hematologic/Lymphatic: Reports: anemia Allergies: Coded Allergies: ERYTHROMYCIN BASE (Unverified Allergy, Intermediate, 07/14/19) Per patient not allergic to medications or food All Systems: reviewed and negative except above Subjective no events. w/o complaints. no reports of bleeding. no fever or chills. no sob. +blood cultures noted. completed iv abx, . echo neg for veg. eating better. appetite "better. cards and heme appreciated hgb stable so far Objective Last 24 Hour Vital Signs Date Time Temp Pulse Resp B/P (MAP) Pulse Ox O2 Delivery O2 Flow Rate FiO2 08/25/20 21:38 130/56 08/25/20 21:36 97.7 08/25/20 21:03 78 130/56 08/25/20 20:39 Nasal Cannula 2.0 08/25/20 20:00 97.7 78 17 130/56 (80) 97 08/25/20 16:00 98.2 72 20 126/56 (79) 97 08/25/20 13:15 127/55 08/25/20 12:00 97.7 74 18 127/55 (79) 100 08/25/20 09:00 Nasal Cannula 2.0 08/25/20 08:27 74 134/62 08/25/20 08:27 74 134/62 08/25/20 08:00 99.0 74 20 134/62 (86) 100 08/25/20 06:00 105/51 08/25/20 04:00 98.2 72 20 120/56 (77) 97 08/25/20 00:00 99.0 74 19 110/21 (50) 98 Intake and Output 08/24/20 08/25/20 18:59 06:59 Intake Total 720 ml 260 ml Output Total 2000 ml Balance 720 ml -1740 ml Intake Oral 720 ml Other 260 ml Hemodialysis UF 2000 ml # Voids 1 Laboratory Tests 08/25/20 07:25: White Blood Count 4.2L, Red Blood Count 2.94L, Hemoglobin 9.5L, Hematocrit 27.7L , Mean Corpuscular Volume 94, Mean Corpuscular Hemoglobin 32.2H, Mean Corpuscular Hemoglobin Concent 34.1, Red Cell Distribution Width 16.1H, Platelet Count 135L, Mean Platelet Volume 6.9, Neutrophils (%) (Auto) 69.3, Lymphocytes (%) (Auto) 18.6L, Monocytes (%) (Auto) 8.0, Eosinophils (%) (Auto) 2.7, Basophils (%) (Auto) 1.4 Height (Feet): 5 Height (Inches): 4.00 Weight (Pounds): 148 Objective General Appearance: WD/WN, alert EENT: normal ENT inspection Neck: non-tender, normal alignment, supple Cardiovascular: normal peripheral pulses, normal rate, regular rhythm Respiratory/Chest: chest wall non-tender, lungs clear, normal breath sounds, no respiratory distress Abdomen: normal bowel sounds, non tender, soft, no organomegaly Extremities: normal range of motion Edema: no edema noted Arm (L), no edema noted Arm (R) Neurologic: vp platforms II-XII grossly normal, alert, responsive Skin: normal pigmentation Assessment/Plan Problem List: (1) CKD (chronic kidney disease) stage 4, GFR 15-29 ml/min ICD Codes: N18.4 - Chronic kidney disease, stage 4 (severe) SNOMED: 668854453 (2) End-stage renal disease ICD Codes: N18.6 - End stage renal disease SNOMED: 50358379 (3) Hypothyroidism ICD Codes: E03.9 - Hypothyroidism SNOMED: 31660807 (4) Fever ICD Codes: R50.9 - Fever, unspecified SNOMED: 406231312 (5) Anemia in chronic kidney disease ICD Codes: N18.9 - Chronic kidney disease, unspecified; D63.1 - Anemia in chronic kidney disease SNOMED: 400044792 (6) GI bleed ICD Codes: K92.2 - Gastrointestinal hemorrhage, unspecified SNOMED: 60274967 (7) History of GI bleed ICD Codes: Z87.19 - Personal history of other diseases of the digestive system SNOMED: 960464303 (8) CHF exacerbation ICD Codes: I50.9 - Heart failure, unspecified SNOMED: 989340593, 19296553741288 (9) ESRD (end stage renal disease) on dialysis ICD Codes: N18.6 - End stage renal disease; Z99.2 - Dependence on renal dialysis SNOMED: 333095058 Status: stable Assessment/Plan: monitor h/h transfuse as needed monitor for bleeding PPI rx off hydralazine- may suppress BM ?bone marrow biopsy iv abx follow up cultures HD per renal Chema Hendricks MD Aug 25, 2020 22:37
[2020-08-26] VITALS (7 sets, daily range): BP systolic 121–148; BP diastolic 58–82
--- NOTE | 2020-08-26 00:41 | Cardiology Progress Note ---
Subjective DATE OF SERVICE: Aug 25, 2020 Abdominal US notable for splenomegaly and cirrhosis. Remains on IV abx for S.capitis bacteremia. s/p PRBC transfusions - hemoglobin remains stable. No c/o CP or SOB EGD did not reveal any acute findings or bleeding source Hydralazine discont'd, as may suppress BM. No current plan for BM biopsy. Objective Last 24 Hour Vital Signs Date Time Temp Pulse Resp B/P (MAP) Pulse Ox O2 Delivery O2 Flow Rate FiO2 08/26/20 00:00 98.0 73 16 124/58 (80) 97 08/25/20 21:38 130/56 08/25/20 21:36 97.7 08/25/20 21:03 78 130/56 08/25/20 20:39 Nasal Cannula 2.0 08/25/20 20:00 97.7 78 17 130/56 (80) 97 08/25/20 16:00 98.2 72 20 126/56 (79) 97 08/25/20 13:15 127/55 08/25/20 12:00 97.7 74 18 127/55 (79) 100 08/25/20 09:00 Nasal Cannula 2.0 08/25/20 08:27 74 134/62 08/25/20 08:27 74 134/62 08/25/20 08:00 99.0 74 20 134/62 (86) 100 08/25/20 06:00 105/51 08/25/20 04:00 98.2 72 20 120/56 (77) 97 ROS: Unchanged from my evaluation of 08/17/20. HEENT: normal ENT inspection RHYTHM: NSR, PACs LUNGS: lungs clear bilaterally, diminished breath sounds CARDIAC: normal rate, regular rhythm, normal S1 and S2, systolic murmur - 1/6 systolic murmur at base ABDOMEN: normal bowel sounds, non tender, soft, no organomegaly EXTREMITIES: normal range of motion, trace edema Laboratory Tests Test 08/25/20 07:25 White Blood Count 4.2 K/UL (4.8-10.8) L Red Blood Count 2.94 M/UL (4.20-5.40) L Hemoglobin 9.5 G/DL (12.0-16.0) L Hematocrit 27.7 % (37.0-47.0) L Mean Corpuscular Volume 94 FL (80-99) Mean Corpuscular Hemoglobin 32.2 PG (27.0-31.0) H Mean Corpuscular Hemoglobin Concent 34.1 G/DL (32.0-36.0) Red Cell Distribution Width 16.1 % (11.6-14.8) H Platelet Count 135 K/UL (150-450) L Mean Platelet Volume 6.9 FL (6.5-10.1) Neutrophils (%) (Auto) 69.3 % (45.0-75.0) Lymphocytes (%) (Auto) 18.6 % (20.0-45.0) L Monocytes (%) (Auto) 8.0 % (1.0-10.0) Eosinophils (%) (Auto) 2.7 % (0.0-3.0) Basophils (%) (Auto) 1.4 % (0.0-2.0) Assessment/Plan Assessment/Plan S. capitis bacteremia with increased risk for endocarditis, but no echocardiographic criteria noted. Severe anemia ESRD Hx g-tube Hypertension/HHD Hx hypothyroidism - now euthyroid Chronic diastolic CHF Cerebrovascular disease BM suppression with pancytopenia - likely associated with splenomegaly and cirrhosis. Off hydralazine; amlodipine titration. PRBC tx for hemoglobin below 7 Epogen and vitamin suppl No anti-plt rx HD/UF Titrate anti-HTN regimen Abx per ID Monitor CBC as outpatient Lance Rivas MD Aug 26, 2020 00:41
[2020-08-26] MEDS: cloNIDine 0.2mg Tab ORAL SCH ×3 (05:35→21:07)
[2020-08-26 06:36] LABS: BASOPHILS % (AUTO) 1.3 % (0.0-2.0); EOSINOPHILS % (AUTO) 3.1 % (0.0-3.0); HEMATOCRIT 26.2 % (37.0-47.0); LYMPHOCYTES % (AUTO) 18.6 % (20.0-45.0); MEAN CORPUSCULAR VOLUME 93 FL (80-99); MONOCYTES % (AUTO) 10.2 % (1.0-10.0); NEUTROPHILS % (AUTO) 66.9 % (45.0-75.0); PLATELET COUNT 145 K/UL (150-450); RED BLOOD COUNT 2.81 M/UL (4.20-5.40); RED CELL DISTRIBUTION WIDTH 15.1 % (11.6-14.8); WHITE BLOOD COUNT 3.9 K/UL (4.8-10.8)
--- NOTE | 2020-08-26 07:06 | NUR ---
NURSE NOTES: Report received from ENRIQUE Joy. Patient in bed, awake, alert and oriented x 4, verbal and able to make needs known. No shortness of breath, bed in lowest position with breaks engaged and alarm on, denies any pain at this time, IV line intact on left FA, AV shunt present on RAEGAN, on room air, will continue to monitor and proceed with plan of care, call light within reach
--- NOTE | 2020-08-26 07:21 | NUR ---
HAND-OFF: Report given to ENRIQUE Franklin.
--- NOTE | 2020-08-26 07:32 | Hematology/Onc Progress Note ---
Assessment/Plan Assessment/Plan Assessment and Recs # Pancytopenia that has been persistent last few years, reviewed prior labs and imaging, does show evidence of cirrhosis and splenoemgaly, is chronic --> us abd: Cirrhosis of the liver with signs of portal hypertension including ascites and splenomegaly. --> anemia panel reviewed --> keep hgb >8 with epo as needed --> give above of cirrhosis/splenomegaly hold off teresa marrow biopsy --> per GI, for s/p recent negative EGD/Colonoscopy/capsule endoscopy --> EGD unrevealing --> plt 104->122-->145 --> wbc 3.2-->4.4-->4 --> hgb 8-->9.6-->9 # Hepattiis C+ ab test --> obtain repeat us abd # End-stage renal disease. Evaluation reveals profound anemia. -> hd as per Dr. Lemus --> right arm fistula acces # Hypotension --> fluids as needed, pressors prn. # Elevated lactic acid level # History of GI bleed # hx cva # AMS # Recurrent anorexia # Dvt ppx scds Appreciate consultation and dw RN Subjective Constitutional: Denies: no symptoms, chills, fever, malaise, weakness, other Cardiovascular: Denies: no symptoms, chest pain, edema, irregular heart rate, lightheadedness, palpitations, syncope, other Allergies: Coded Allergies: ERYTHROMYCIN BASE (Unverified Allergy, Intermediate, 07/14/19) Per patient not allergic to medications or food Subjective 08/24 labs pending, no bleeding, cbc ordered, hgb has bee stable 08/25 no major events overnight, remains comfortable, no bleeding 08/26 labs noted, no bleeding, us abd and gi recs noted Objective Objective Current Medications Medications (Trade) Dose Ordered Sig/Jonathan Route PRN Reason Start Time Stop Time Status Last Admin Dose Admin Acetaminophen (Tylenol) 650 mg QHS PRN ORAL For Pain and fever 08/25/20 19:30 09/16/20 15:59 08/25/20 21:05 Amlodipine Besylate (Norvasc) 5 mg DAILY ORAL 08/23/20 09:00 09/22/20 08:59 08/25/20 08:27 Cinacalcet (Sensipar) 60 mg DAILY ORAL 08/26/20 09:00 11/16/20 08:59 Clonidine HCl (Catapres tab) 0.2 mg Q8HR ORAL 08/25/20 22:00 11/15/20 17:59 Docusate Sodium (Colace) 250 mg DAILY ORAL 08/26/20 09:00 09/17/20 08:59 Epoetin Phu (Epoetin Phu(ESRD on dialysis)) 10,000 unit SUN-SUN-SUN SUBQ 08/25/20 21:00 11/23/20 20:59 08/25/20 21:04 Heparin Sodium (Porcine) (Heparin Sod 1000 units/ml 10ml) 2,000 unit ONCE PRN IV DIALYSIS 08/26/20 09:00 08/26/20 23:59 Levothyroxine Sodium (Synthroid) 125 mcg DAILY ORAL 08/26/20 09:00 09/17/20 08:59 Metoprolol Tartrate (Lopressor) 50 mg EVERY 12 HOURS ORAL 08/25/20 21:00 11/15/20 20:59 08/25/20 21:03 Pantoprazole (Protonix) 40 mg EVERY 12 HOURS IVP 08/17/20 21:00 09/16/20 20:59 08/25/20 21:03 Sodium Chloride 1,000 ml @ 500 mls/hr Q2H PRN IVLG sbp<90 during hd 08/26/20 09:00 08/26/20 23:59 Temazepam (Restoril) 15 mg QHS ORAL 08/23/20 21:00 08/30/20 20:59 08/25/20 21:03 Last 24 Hour Vital Signs Date Time Temp Pulse Resp B/P (MAP) Pulse Ox O2 Delivery O2 Flow Rate FiO2 08/26/20 05:35 121/61 08/26/20 04:00 97.5 68 17 121/61 (81) 97 08/26/20 00:00 98.0 73 16 124/58 (80) 97 08/25/20 21:38 130/56 08/25/20 21:36 97.7 08/25/20 21:03 78 130/56 08/25/20 20:39 Nasal Cannula 2.0 08/25/20 20:00 97.7 78 17 130/56 (80) 97 08/25/20 16:00 98.2 72 20 126/56 (79) 97 08/25/20 13:15 127/55 08/25/20 12:00 97.7 74 18 127/55 (79) 100 08/25/20 09:00 Nasal Cannula 2.0 08/25/20 08:27 74 134/62 08/25/20 08:27 74 134/62 08/25/20 08:00 99.0 74 20 134/62 (86) 100 08/25/20 06:00 105/51 08/25/20 04:00 98.2 72 20 120/56 (77) 97 08/25/20 00:00 99.0 74 19 110/21 (50) 98 08/24/20 22:00 101/49 08/24/20 21:00 Nasal Cannula 2.0 08/24/20 20:57 75 112/52 08/24/20 20:00 98.4 75 20 112/52 (72) 98 08/24/20 16:00 97.3 74 18 123/72 (89) 100 08/24/20 12:00 98.4 73 19 139/64 (89) 100 08/24/20 09:00 Nasal Cannula 2.0 08/24/20 08:00 98.2 71 20 124/69 (87) 96 Intake and Output 08/25/20 08/26/20 18:59 06:59 Intake Total 300 ml 360 ml Balance 300 ml 360 ml Intake Oral 300 ml 360 ml # Voids 1 Labs Test 08/23/20 07:35 08/24/20 07:10 08/24/20 10:15 08/25/20 07:25 White Blood Count 3.5 K/UL (4.8-10.8) 4.4 K/UL (4.8-10.8) 4.2 K/UL (4.8-10.8) Red Blood Count 2.64 M/UL (4.20-5.40) 2.99 M/UL (4.20-5.40) 2.94 M/UL (4.20-5.40) Hemoglobin 8.4 G/DL (12.0-16.0) 9.6 G/DL (12.0-16.0) 9.5 G/DL (12.0-16.0) Hematocrit 24.9 % (37.0-47.0) 28.4 % (37.0-47.0) 27.7 % (37.0-47.0) Mean Corpuscular Volume 94 FL (80-99) 95 FL (80-99) 94 FL (80-99) Mean Corpuscular Hemoglobin 32.0 PG (27.0-31.0) 32.2 PG (27.0-31.0) 32.2 PG (27.0-31.0) Mean Corpuscular Hemoglobin Concent 33.9 G/DL (32.0-36.0) 33.9 G/DL (32.0-36.0) 34.1 G/DL (32.0-36.0) Red Cell Distribution Width 16.4 % (11.6-14.8) 16.2 % (11.6-14.8) 16.1 % (11.6-14.8) Platelet Count 117 K/UL (150-450) 124 K/UL (150-450) 135 K/UL (150-450) Mean Platelet Volume 7.9 FL (6.5-10.1) 7.5 FL (6.5-10.1) 6.9 FL (6.5-10.1) Neutrophils (%) (Auto) 67.0 % (45.0-75.0) 65.6 % (45.0-75.0) 69.3 % (45.0-75.0) Lymphocytes (%) (Auto) 19.9 % (20.0-45.0) 15.6 % (20.0-45.0) 18.6 % (20.0-45.0) Monocytes (%) (Auto) 9.9 % (1.0-10.0) 12.9 % (1.0-10.0) 8.0 % (1.0-10.0) Eosinophils (%) (Auto) 2.5 % (0.0-3.0) 2.0 % (0.0-3.0) 2.7 % (0.0-3.0) Basophils (%) (Auto) 0.8 % (0.0-2.0) 3.8 % (0.0-2.0) 1.4 % (0.0-2.0) Alpha Fetoprotein 3.3 ng/mL (0.0-8.3) Hepatitis C Antibody >11.0 s/co ratio Random Vancomycin Level 29.4 ug/mL Test 08/26/20 06:10 White Blood Count 3.9 K/UL (4.8-10.8) Red Blood Count 2.81 M/UL (4.20-5.40) Hemoglobin 9.0 G/DL (12.0-16.0) Hematocrit 26.2 % (37.0-47.0) Mean Corpuscular Volume 93 FL (80-99) Mean Corpuscular Hemoglobin 32.0 PG (27.0-31.0) Mean Corpuscular Hemoglobin Concent 34.2 G/DL (32.0-36.0) Red Cell Distribution Width 15.1 % (11.6-14.8) Platelet Count 145 K/UL (150-450) Mean Platelet Volume 7.5 FL (6.5-10.1) Neutrophils (%) (Auto) 66.9 % (45.0-75.0) Lymphocytes (%) (Auto) 18.6 % (20.0-45.0) Monocytes (%) (Auto) 10.2 % (1.0-10.0) Eosinophils (%) (Auto) 3.1 % (0.0-3.0) Basophils (%) (Auto) 1.3 % (0.0-2.0) Height (Feet): 5 Height (Inches): 4.00 Weight (Pounds): 148 Objective Physical Exam Sp02 Ep: reviewed, normal General: lethargic, other, Chronically Ill HEENT: moist mucus membranes, perrl, full rom Respiratory: lungs clear, normal breath sounds, no respiratory distress Cardiovascular: regular rate, rhythm Gastrointestinal: non tender, soft, Genitourinary: no CVA tenderness Musculoskeletal: back normal Neurologic: oriented - X1, sensory intact, motor weakness - Diffuse Psychiatric: depressed affect Andres Carson MD Aug 26, 2020 07:32
[2020-08-26] MEDS: Docusate 100mg/10ml Liq ORAL SCH (08:47)
[2020-08-26] MEDS: Levothyroxine 125mcg tab ORAL SCH (08:47)
[2020-08-26] MEDS: Pantoprazole Inj IVP SCH ×2 (08:47→21:06)
[2020-08-26] MEDS: Sensipar 30mg Tab ORAL SCH (08:47)
[2020-08-26] MEDS: Metoprolol Tartrate 50mg tab ORAL SCH ×2 (08:48→21:06)
[2020-08-26] MEDS ORDERED: Heparin Sod 1000 units/ml 10ml IV PRN (09:00)
--- NOTE | 2020-08-26 09:54 | Nephrology Progress Note ---
Assessment/Plan Problem List: (1) ESRD (end stage renal disease) on dialysis (2) Anemia in chronic kidney disease (3) Hypertensive nephrosclerosis (4) Hypercalcemia (5) GI bleed (6) Bronchitis (7) Cirrhosis (8) Sepsis Plan HD 08/18 08/19,08/21 08/24 08/26 transfused, ppi, hhn, bacteremia staph likely contaminant, vanco given, GI eval reviewed, prior Hb> 11 suspect occult gi bleed which may have stopped by arrival, mobilize seen with PT Subjective Constitutional: Reports: weakness HEENT: Reports: no symptoms Genitourinary: Reports: incontinence Neurologic/Psychiatric: Reports: pre-existing deficit Objective Objective Last 24 Hour Vital Signs Date Time Temp Pulse Resp B/P (MAP) Pulse Ox O2 Delivery O2 Flow Rate FiO2 08/26/20 09:00 Nasal Cannula 2.0 08/26/20 08:48 68 137/64 08/26/20 08:48 68 137/64 08/26/20 08:00 97.5 68 17 137/64 (88) 97 08/26/20 05:35 121/61 08/26/20 04:00 97.5 68 17 121/61 (81) 97 08/26/20 00:00 98.0 73 16 124/58 (80) 97 08/25/20 21:38 130/56 08/25/20 21:36 97.7 08/25/20 21:03 78 130/56 08/25/20 20:39 Nasal Cannula 2.0 08/25/20 20:00 97.7 78 17 130/56 (80) 97 08/25/20 16:00 98.2 72 20 126/56 (79) 97 08/25/20 13:15 127/55 08/25/20 12:00 97.7 74 18 127/55 (79) 100 Intake and Output 08/25/20 08/26/20 18:59 06:59 Intake Total 300 ml 360 ml Balance 300 ml 360 ml Intake Oral 300 ml 360 ml # Voids 1 Laboratory Tests 08/26/20 06:10: White Blood Count 3.9L, Red Blood Count 2.81L, Hemoglobin 9.0L, Hematocrit 26.2L , Mean Corpuscular Volume 93, Mean Corpuscular Hemoglobin 32.0H, Mean Corpuscular Hemoglobin Concent 34.2, Red Cell Distribution Width 15.1H, Platelet Count 145L, Mean Platelet Volume 7.5, Neutrophils (%) (Auto) 66.9, Lymphocytes (%) (Auto) 18.6L, Monocytes (%) (Auto) 10.2H, Eosinophils (%) (Auto) 3.1H, Basophils (%) (Auto) 1.3 Height (Feet): 5 Height (Inches): 4.00 Weight (Pounds): 148 General Appearance: no apparent distress, alert EENT: normal ENT inspection Neck: normal alignment Cardiovascular: regular rhythm, systolic murmur Respiratory/Chest: lungs clear Abdomen: non tender, soft Extremities: no edema Neurologic: abnormal fabric sourcer II-XII, motor weakness Jose Lemus MD Aug 26, 2020 09:54
--- NOTE | 2020-08-26 12:17 | General Progress Note ---
Subjective Allergies: Coded Allergies: ERYTHROMYCIN BASE (Unverified Allergy, Intermediate, 07/14/19) Per patient not allergic to medications or food Subjective above noted awake and no complaints Objective Last 24 Hour Vital Signs Date Time Temp Pulse Resp B/P (MAP) Pulse Ox O2 Delivery O2 Flow Rate FiO2 08/26/20 12:00 97.3 77 18 136/70 (92) 97 08/26/20 09:00 Nasal Cannula 2.0 08/26/20 08:48 68 137/64 08/26/20 08:48 68 137/64 08/26/20 08:00 97.5 68 17 137/64 (88) 97 08/26/20 05:35 121/61 08/26/20 04:00 97.5 68 17 121/61 (81) 97 08/26/20 00:00 98.0 73 16 124/58 (80) 97 08/25/20 21:38 130/56 08/25/20 21:36 97.7 08/25/20 21:03 78 130/56 08/25/20 20:39 Nasal Cannula 2.0 08/25/20 20:00 97.7 78 17 130/56 (80) 97 08/25/20 16:00 98.2 72 20 126/56 (79) 97 08/25/20 13:15 127/55 Intake and Output 0 08/25/20 08/26/20 19:00 07:00 Intake Total 300 ml 360 ml Balance 300 ml 360 ml Intake Oral 300 ml 360 ml # Voids 1 Laboratory Tests 08/26/20 06:10: White Blood Count 3.9L, Red Blood Count 2.81L, Hemoglobin 9.0L, Hematocrit 26.2L , Mean Corpuscular Volume 93, Mean Corpuscular Hemoglobin 32.0H, Mean Corpuscular Hemoglobin Concent 34.2, Red Cell Distribution Width 15.1H, Platelet Count 145L, Mean Platelet Volume 7.5, Neutrophils (%) (Auto) 66.9, Lymphocytes (%) (Auto) 18.6L, Monocytes (%) (Auto) 10.2H, Eosinophils (%) (Auto) 3.1H, Basophils (%) (Auto) 1.3 Height (Feet): 5 Height (Inches): 4.00 Weight (Pounds): 148 Objective Debilitated AA woman NCAT supple CTA RR abd soft ND NT no edema Assessment/Plan Status: stable Assessment/Plan: Assessment - recurrent severe Anemia: - ? ESRD - ? Bone marrow d/o vs Cirrhosis (pancytopenia) - ? GI loss - s/p recent negative EGD/Colonoscopy/capsule endoscopy - no Sx of GIB, and no Iron deficiency - but now OB (+) --> EGD unrevealing - recurrent anorexia - ESRD - h/o CHF - RAD Recommendations - check labs - hematology eval noted - follow CBC Mina Rao MD Aug 26, 2020 12:17
--- NOTE | 2020-08-26 15:57 | General Progress Note ---
Subjective Allergies: Coded Allergies: ERYTHROMYCIN BASE (Unverified Allergy, Intermediate, 07/14/19) Per patient not allergic to medications or food Subjective no events. ?abd pain. no reports of bleeding. no fever or chills. no sob. h/h/ stable. tolerating HD Objective Last 24 Hour Vital Signs Date Time Temp Pulse Resp B/P (MAP) Pulse Ox O2 Delivery O2 Flow Rate FiO2 08/26/20 13:01 136/70 08/26/20 12:00 97.3 77 18 136/70 (92) 97 08/26/20 09:00 Nasal Cannula 2.0 08/26/20 08:48 68 137/64 08/26/20 08:48 68 137/64 08/26/20 08:00 97.5 68 17 137/64 (88) 97 08/26/20 05:35 121/61 08/26/20 04:00 97.5 68 17 121/61 (81) 97 08/26/20 00:00 98.0 73 16 124/58 (80) 97 08/25/20 21:38 130/56 08/25/20 21:36 97.7 08/25/20 21:03 78 130/56 08/25/20 20:39 Nasal Cannula 2.0 08/25/20 20:00 97.7 78 17 130/56 (80) 97 08/25/20 16:00 98.2 72 20 126/56 (79) 97 Intake and Output 08/25/20 08/26/20 19:00 07:00 Intake Total 300 ml 360 ml Balance 300 ml 360 ml Intake Oral 300 ml 360 ml # Voids 1 Laboratory Tests 08/26/20 06:10: White Blood Count 3.9L, Red Blood Count 2.81L, Hemoglobin 9.0L, Hematocrit 26.2L , Mean Corpuscular Volume 93, Mean Corpuscular Hemoglobin 32.0H, Mean Corpuscular Hemoglobin Concent 34.2, Red Cell Distribution Width 15.1H, Platelet Count 145L, Mean Platelet Volume 7.5, Neutrophils (%) (Auto) 66.9, Lymphocytes (%) (Auto) 18.6L, Monocytes (%) (Auto) 10.2H, Eosinophils (%) (Auto) 3.1H, Basophils (%) (Auto) 1.3 Height (Feet): 5 Height (Inches): 4.00 Weight (Pounds): 148 Objective General Appearance: WD/WN, alert EENT: normal ENT inspection Neck: non-tender, normal alignment, supple Cardiovascular: normal peripheral pulses, normal rate, regular rhythm Respiratory/Chest: chest wall non-tender, lungs clear, normal breath sounds, no respiratory distress Abdomen: normal bowel sounds, non tender, soft, no organomegaly Extremities: normal range of motion Edema: no edema noted Arm (L), no edema noted Arm (R) 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 II-XII grossly normal, alert, responsive Skin: normal pigmentation Assessment/Plan Problem List: (1) CKD (chronic kidney disease) stage 4, GFR 15-29 ml/min ICD Codes: N18.4 - Chronic kidney disease, stage 4 (severe) SNOMED: 402236869 (2) End-stage renal disease ICD Codes: N18.6 - End stage renal disease SNOMED: 06237318 (3) Hypothyroidism ICD Codes: E03.9 - Hypothyroidism SNOMED: 04112514 (4) Fever ICD Codes: R50.9 - Fever, unspecified SNOMED: 147754548 (5) Anemia in chronic kidney disease ICD Codes: N18.9 - Chronic kidney disease, unspecified; D63.1 - Anemia in chronic kidney disease SNOMED: 285474550 (6) GI bleed ICD Codes: K92.2 - Gastrointestinal hemorrhage, unspecified SNOMED: 87501759 (7) History of GI bleed ICD Codes: Z87.19 - Personal history of other diseases of the digestive system SNOMED: 994239144 (8) CHF exacerbation ICD Codes: I50.9 - Heart failure, unspecified SNOMED: 835639861, 66391123558246 (9) ESRD (end stage renal disease) on dialysis ICD Codes: N18.6 - End stage renal disease; Z99.2 - Dependence on renal dialysis SNOMED: 243851975 Status: stable Assessment/Plan: monitor h/h transfuse as needed monitor for bleeding PPI rx off hydralazine- may suppress BM ?bone marrow biopsy iv abx follow up cultures HD per renal dc planning tomorrow if ok with all Chema Hendricks MD Aug 26, 2020 15:57
--- NOTE | 2020-08-26 16:22 | Infectious Diseases Prog Note ---
Assessment/Plan Assessment/Plan A: 1. Staphylococcus Capitis bacteremia. 2. Hypertension. 3. Renal failure, on dialysis. 4. Congestive heart failure. 5. Anemia PLAN: 1. Observe off antibiotic Subjective ROS Limited/Unobtainable: No Constitutional: Reports: no symptoms Respiratory: Reports: no symptoms Gastrointestinal/Abdominal: Reports: nausea Genitourinary: Reports: no symptoms Allergies: Coded Allergies: ERYTHROMYCIN BASE (Unverified Allergy, Intermediate, 07/14/19) Per patient not allergic to medications or food Objective Last 24 Hour Vital Signs Date Time Temp Pulse Resp B/P (MAP) Pulse Ox O2 Delivery O2 Flow Rate FiO2 08/26/20 13:01 136/70 08/26/20 12:00 97.3 77 18 136/70 (92) 97 08/26/20 09:00 Nasal Cannula 2.0 08/26/20 08:48 68 137/64 08/26/20 08:48 68 137/64 08/26/20 08:00 97.5 68 17 137/64 (88) 97 08/26/20 05:35 121/61 08/26/20 04:00 97.5 68 17 121/61 (81) 97 08/26/20 00:00 98.0 73 16 124/58 (80) 97 08/25/20 21:38 130/56 08/25/20 21:36 97.7 08/25/20 21:03 78 130/56 08/25/20 20:39 Nasal Cannula 2.0 08/25/20 20:00 97.7 78 17 130/56 (80) 97 Height (Feet): 5 Height (Inches): 4.00 Weight (Pounds): 148 General Appearance: no acute distress Respiratory/Chest: lungs clear Cardiovascular: normal rate, other - R arm AV graft Abdomen: soft, non tender Neurologic/Psychiatric: alert, responsive Laboratory Tests Test 08/26/20 06:10 White Blood Count 3.9 K/UL (4.8-10.8) L Red Blood Count 2.81 M/UL (4.20-5.40) L Hemoglobin 9.0 G/DL (12.0-16.0) L Hematocrit 26.2 % (37.0-47.0) L Mean Corpuscular Volume 93 FL (80-99) Mean Corpuscular Hemoglobin 32.0 PG (27.0-31.0) H Mean Corpuscular Hemoglobin Concent 34.2 G/DL (32.0-36.0) Red Cell Distribution Width 15.1 % (11.6-14.8) H Platelet Count 145 K/UL (150-450) L Mean Platelet Volume 7.5 FL (6.5-10.1) Neutrophils (%) (Auto) 66.9 % (45.0-75.0) Lymphocytes (%) (Auto) 18.6 % (20.0-45.0) L Monocytes (%) (Auto) 10.2 % (1.0-10.0) H Eosinophils (%) (Auto) 3.1 % (0.0-3.0) H Basophils (%) (Auto) 1.3 % (0.0-2.0) Current Medications Medications (Trade) Dose Ordered Sig/Jonathan Route PRN Reason Start Time Stop Time Status Last Admin Dose Admin Acetaminophen (Tylenol) 650 mg QHS PRN ORAL For Pain and fever 08/25/20 19:30 09/16/20 15:59 08/25/20 21:05 Amlodipine Besylate (Norvasc) 5 mg DAILY ORAL 08/23/20 09:00 09/22/20 08:59 08/25/20 08:27 Cinacalcet (Sensipar) 60 mg DAILY ORAL 08/26/20 09:00 11/16/20 08:59 08/26/20 08:47 Clonidine HCl (Catapres tab) 0.2 mg Q8HR ORAL 08/25/20 22:00 11/15/20 17:59 Docusate Sodium (Colace) 250 mg DAILY ORAL 08/26/20 09:00 09/17/20 08:59 08/26/20 08:47 Epoetin Phu (Epoetin Phu(ESRD on dialysis)) 10,000 unit SUN-SUN-SUN SUBQ 08/25/20 21:00 11/23/20 20:59 08/25/20 21:04 Heparin Sodium (Porcine) (Heparin Sod 1000 units/ml 10ml) 2,000 unit ONCE PRN IV DIALYSIS 08/26/20 09:00 08/26/20 23:59 Levothyroxine Sodium (Synthroid) 125 mcg DAILY ORAL 08/26/20 09:00 09/17/20 08:59 08/26/20 08:47 Metoprolol Tartrate (Lopressor) 50 mg EVERY 12 HOURS ORAL 08/25/20 21:00 11/15/20 20:59 08/25/20 21:03 Pantoprazole (Protonix) 40 mg EVERY 12 HOURS IVP 08/17/20 21:00 09/16/20 20:59 08/26/20 08:47 Sodium Chloride 1,000 ml @ 500 mls/hr Q2H PRN IVLG sbp<90 during hd 08/26/20 09:00 08/26/20 23:59 Temazepam (Restoril) 15 mg QHS ORAL 08/23/20 21:00 08/30/20 20:59 08/25/20 21:03 Ruperto Freedman MD Aug 26, 2020 16:22
--- NOTE | 2020-08-26 18:59 | NUR ---
NURSE HAND-OFF: Important Events on Shift:[HD today, 2L out, safety and comfort] Patient Status: [stable] Diet: [renal diet] Pending Orders: [] Pending Results/Labs:[] Pending MD notification:[] Latest Vital Signs: Temperature 97.5 , Pulse 73 , B/P 137 /82 , Respiratory Rate 16 , O2 SAT 99 , Nasal Cannula, O2 Flow Rate 2.0 . Vital Sign Comment: [] Latest Virgen Fall Score: 45 Fall Risk: High Risk Safety Measures: Call light Within Reach, Bed Alarm Zone 1, Side Rails Side Rails x2, Bed position Low and Locked. Fall Precautions: Yellow Socks Yellow Gown Door Sign Patient Fall Education Report given to [ENRIQUE Joy].
--- NOTE | 2020-08-26 19:37 | NUR ---
NURSE NOTES: Received patient awake, alert, verbal, resting in bed, comfortable.
--- NOTE | 2020-08-27 01:35 | Cardiology Progress Note ---
Subjective DATE OF SERVICE: Aug 26, 2020 Abdominal US notable for splenomegaly and cirrhosis. Remains on IV abx for S.capitis bacteremia. s/p PRBC transfusions - hemoglobin remains stable. No c/o CP or SOB EGD did not reveal any acute findings or bleeding source Hydralazine discont'd, as may suppress BM. No current plan for BM biopsy. Objective Last 24 Hour Vital Signs Date Time Temp Pulse Resp B/P (MAP) Pulse Ox O2 Delivery O2 Flow Rate FiO2 08/26/20 23:55 97.5 74 18 148/65 (92) 97 08/26/20 21:07 146/63 08/26/20 21:06 81 146/63 08/26/20 20:34 Nasal Cannula 2.0 08/26/20 20:06 98.1 81 18 146/63 (90) 97 08/26/20 16:00 97.5 73 16 137/82 (100) 99 08/26/20 13:01 136/70 08/26/20 12:00 97.3 77 18 136/70 (92) 97 08/26/20 09:00 Nasal Cannula 2.0 08/26/20 08:48 68 137/64 08/26/20 08:48 68 137/64 08/26/20 08:00 97.5 68 17 137/64 (88) 97 08/26/20 05:35 121/61 08/26/20 04:00 97.5 68 17 121/61 (81) 97 ROS: Unchanged from my evaluation of 08/17/20. HEENT: normal ENT inspection RHYTHM: NSR, PACs LUNGS: lungs clear bilaterally, diminished breath sounds CARDIAC: normal rate, regular rhythm, normal S1 and S2, systolic murmur - 1/6 systolic murmur at base ABDOMEN: normal bowel sounds, non tender, soft, no organomegaly EXTREMITIES: normal range of motion, trace edema Laboratory Tests Test 08/26/20 06:10 White Blood Count 3.9 K/UL (4.8-10.8) L Red Blood Count 2.81 M/UL (4.20-5.40) L Hemoglobin 9.0 G/DL (12.0-16.0) L Hematocrit 26.2 % (37.0-47.0) L Mean Corpuscular Volume 93 FL (80-99) Mean Corpuscular Hemoglobin 32.0 PG (27.0-31.0) H Mean Corpuscular Hemoglobin Concent 34.2 G/DL (32.0-36.0) Red Cell Distribution Width 15.1 % (11.6-14.8) H Platelet Count 145 K/UL (150-450) L Mean Platelet Volume 7.5 FL (6.5-10.1) Neutrophils (%) (Auto) 66.9 % (45.0-75.0) Lymphocytes (%) (Auto) 18.6 % (20.0-45.0) L Monocytes (%) (Auto) 10.2 % (1.0-10.0) H Eosinophils (%) (Auto) 3.1 % (0.0-3.0) H Basophils (%) (Auto) 1.3 % (0.0-2.0) Assessment/Plan Assessment/Plan S. capitis bacteremia with increased risk for endocarditis, but no echocardiographic criteria noted. Severe anemia ESRD Hx g-tube Hypertension/HHD Hx hypothyroidism - now euthyroid Chronic diastolic CHF Cerebrovascular disease BM suppression with pancytopenia - likely associated with splenomegaly and cirrhosis. Off hydralazine; amlodipine titrated. PRBC tx for hemoglobin below 7 Epogen and vitamin suppl No anti-plt rx HD/UF Titrate anti-HTN regimen Abx per ID Monitor CBC as outpatient Agree with discharge plan. Lance Rivas MD Aug 27, 2020 01:35
[2020-08-27 04:00] VITALS: BP 156/69
[2020-08-27] MEDS: cloNIDine 0.2mg Tab ORAL SCH ×3 (05:09→23:30)
[2020-08-27 06:02] LABS: BASOPHILS % (AUTO) 1.1 % (0.0-2.0); EOSINOPHILS % (AUTO) 2.3 % (0.0-3.0); HEMATOCRIT 27.7 % (37.0-47.0); HEMOGLOBIN 9.5 G/DL (12.0-16.0); LYMPHOCYTES % (AUTO) 16.6 % (20.0-45.0); MEAN CORPUSCULAR VOLUME 93 FL (80-99); MONOCYTES % (AUTO) 8.2 % (1.0-10.0); NEUTROPHILS % (AUTO) 71.8 % (45.0-75.0); PLATELET COUNT 146 K/UL (150-450); RED BLOOD COUNT 2.98 M/UL (4.20-5.40); RED CELL DISTRIBUTION WIDTH 15.5 % (11.6-14.8); WHITE BLOOD COUNT 4.5 K/UL (4.8-10.8)
--- NOTE | 2020-08-27 07:25 | NUR ---
HAND-OFF: Report given to Micheal Gr RN.
--- NOTE | 2020-08-27 07:54 | NUR ---
NURSE NOTES: Received report from ENRIQUE Arreola. Patient in bed, awake, alert and oriented x 4, verbal and able to make needs known. No shortness of breath, bed in lowest position with breaks engaged and alarm on, denies any pain at this time, IV line intact on left FA, AV shunt present on RAEGAN, on room air, will continue to monitor and proceed with plan of care, call light within reach
[2020-08-27 08:00] VITALS: BP 120/59
--- NOTE | 2020-08-27 08:44 | Hematology/Onc Progress Note ---
Assessment/Plan Assessment/Plan Assessment and Recs # Pancytopenia that has been persistent last few years, reviewed prior labs and imaging, does show evidence of cirrhosis and splenoemgaly, is chronic --> us abd: Cirrhosis of the liver with signs of portal hypertension including ascites and splenomegaly. --> anemia panel reviewed --> keep hgb >8 with epo as needed --> give above of cirrhosis/splenomegaly hold off bone marrow biopsy --> per GI, for s/p recent negative EGD/Colonoscopy/capsule endoscopy --> EGD unrevealing --> plt 104->122-->145-->146 --> wbc 3.2-->4.4-->4->4 --> hgb 8-->9.6-->9->9 # Hepattiis C+ ab test --> obtain repeat us abd # End-stage renal disease. Evaluation reveals profound anemia. -> hd as per Dr. Lemus --> right arm fistula acces # Hypotension --> fluids as needed, pressors prn. # Elevated lactic acid level # History of GI bleed # hx cva # AMS # Recurrent anorexia # Dvt ppx scds Appreciate consultation and dw RN Subjective Constitutional: Denies: no symptoms, chills, fever, malaise, weakness, other HEENT: Denies: no symptoms, eye pain, blurred vision, tearing, double vision, ear pain, ear discharge, nose pain, nose congestion, throat pain, throat swelling, mouth pain, mouth swelling, other Cardiovascular: Denies: no symptoms, chest pain, edema, irregular heart rate, lightheadedness, palpitations, syncope, other Respiratory: Denies: no symptoms, cough, shortness of breath, SOB with excertion, SOB at rest, sputum, wheezing, other Gastrointestinal/Abdominal: Denies: no symptoms, abdomen distended, abdominal pain, black stools, tarry stools, blood in stool, constipated, diarrhea, difficulty swallowing, nausea, poor appetite, poor fluid intake, rectal bleeding, vomiting, other Genitourinary: Denies: no symptoms, burning, discharge, frequency, flank pain, hematuria, incontinence, pain, urgency, other Neurologic/Psychiatric: Denies: no symptoms, anxiety, depressed, emotional problems, headache, numbness, paresthesia, pre-existing deficit, seizure, tingling, tremors, weakness, other Endocrine: Denies: no symptoms, excessive sweating, flushing, intolerance to cold, intolerance to heat, increased hunger, increased thirst, increased urine, unexplained weight gain, unexplained weight loss, other Hematologic/Lymphatic: Denies: no symptoms, anemia, easy bleeding, easy bruising, adenopathy, other Allergies: Coded Allergies: ERYTHROMYCIN BASE (Unverified Allergy, Intermediate, 07/14/19) Per patient not allergic to medications or food Subjective 08/24 labs pending, no bleeding, cbc ordered, hgb has bee stable 08/25 no major events overnight, remains comfortable, no bleeding 08/26 labs noted, no bleeding, us abd and gi recs noted 08/27 labs noted, meds reviewed, hgb 9, no bleeding Objective Objective Current Medications Medications (Trade) Dose Ordered Sig/Jonathan Route PRN Reason Start Time Stop Time Status Last Admin Dose Admin Acetaminophen (Tylenol) 650 mg QHS PRN ORAL For Pain and fever 08/25/20 19:30 09/16/20 15:59 08/25/20 21:05 Amlodipine Besylate (Norvasc) 5 mg DAILY ORAL 08/23/20 09:00 09/22/20 08:59 08/25/20 08:27 Cinacalcet (Sensipar) 60 mg DAILY ORAL 08/26/20 09:00 11/16/20 08:59 08/26/20 08:47 Clonidine HCl (Catapres tab) 0.2 mg Q8HR ORAL 08/25/20 22:00 11/15/20 17:59 08/27/20 05:09 Docusate Sodium (Colace) 250 mg DAILY ORAL 08/26/20 09:00 09/17/20 08:59 08/26/20 08:47 Epoetin Phu (Epoetin Phu(ESRD on dialysis)) 10,000 unit SUN-SUN-SUN SUBQ 08/25/20 21:00 11/23/20 20:59 08/25/20 21:04 Levothyroxine Sodium (Synthroid) 125 mcg DAILY ORAL 08/26/20 09:00 09/17/20 08:59 08/26/20 08:47 Metoprolol Tartrate (Lopressor) 50 mg EVERY 12 HOURS ORAL 08/25/20 21:00 11/15/20 20:59 08/26/20 21:06 Pantoprazole (Protonix) 40 mg EVERY 12 HOURS IVP 08/17/20 21:00 09/16/20 20:59 08/26/20 21:06 Temazepam (Restoril) 15 mg QHS ORAL 08/23/20 21:00 08/30/20 20:59 08/26/20 21:06 Last 24 Hour Vital Signs Date Time Temp Pulse Resp B/P (MAP) Pulse Ox O2 Delivery O2 Flow Rate FiO2 08/27/20 05:09 156/69 08/27/20 04:00 97.9 77 18 156/69 (98) 97 08/26/20 23:55 97.5 74 18 148/65 (92) 97 08/26/20 21:07 146/63 08/26/20 21:06 81 146/63 08/26/20 20:34 Nasal Cannula 2.0 08/26/20 20:06 98.1 81 18 146/63 (90) 97 08/26/20 16:00 97.5 73 16 137/82 (100) 99 08/26/20 13:01 136/70 08/26/20 12:00 97.3 77 18 136/70 (92) 97 08/26/20 09:00 Nasal Cannula 2.0 08/26/20 08:48 68 137/64 08/26/20 08:48 68 137/64 08/26/20 08:00 97.5 68 17 137/64 (88) 97 08/26/20 05:35 121/61 08/26/20 04:00 97.5 68 17 121/61 (81) 97 08/26/20 00:00 98.0 73 16 124/58 (80) 97 08/25/20 21:38 130/56 08/25/20 21:36 97.7 08/25/20 21:03 78 130/56 08/25/20 20:39 Nasal Cannula 2.0 08/25/20 20:00 97.7 78 17 130/56 (80) 97 08/25/20 16:00 98.2 72 20 126/56 (79) 97 08/25/20 13:15 127/55 08/25/20 12:00 97.7 74 18 127/55 (79) 100 08/25/20 09:00 Nasal Cannula 2.0 Intake and Output 08/26/20 08/27/20 19:00 07:00 Intake Total 240 ml 260 ml Output Total 2000 ml Balance -1760 ml 260 ml Intake Oral 240 ml Other 260 ml Hemodialysis UF 2000 ml # Voids 1 # Bowel Movements 1 Labs Test 08/24/20 10:15 08/25/20 07:25 08/26/20 06:10 08/27/20 04:51 White Blood Count 4.4 K/UL (4.8-10.8) 4.2 K/UL (4.8-10.8) 3.9 K/UL (4.8-10.8) 4.5 K/UL (4.8-10.8) Red Blood Count 2.99 M/UL (4.20-5.40) 2.94 M/UL (4.20-5.40) 2.81 M/UL (4.20-5.40) 2.98 M/UL (4.20-5.40) Hemoglobin 9.6 G/DL (12.0-16.0) 9.5 G/DL (12.0-16.0) 9.0 G/DL (12.0-16.0) 9.5 G/DL (12.0-16.0) Hematocrit 28.4 % (37.0-47.0) 27.7 % (37.0-47.0) 26.2 % (37.0-47.0) 27.7 % (37.0-47.0) Mean Corpuscular Volume 95 FL (80-99) 94 FL (80-99) 93 FL (80-99) 93 FL (80- 99) Mean Corpuscular Hemoglobin 32.2 PG (27.0-31.0) 32.2 PG (27.0-31.0) 32.0 PG (27.0-31.0) 31.8 PG (27.0-31.0) Mean Corpuscular Hemoglobin Concent 33.9 G/DL (32.0-36.0) 34.1 G/DL (32.0-36.0) 34.2 G/DL (32.0-36.0) 34.2 G/DL (32.0-36.0) Red Cell Distribution Width 16.2 % (11.6-14.8) 16.1 % (11.6-14.8) 15.1 % (11.6-14.8) 15.5 % (11.6-14.8) Platelet Count 124 K/UL (150-450) 135 K/UL (150-450) 145 K/UL (150-450) 146 K/UL (150-450) Mean Platelet Volume 7.5 FL (6.5-10.1) 6.9 FL (6.5-10.1) 7.5 FL (6.5-10.1) 7.8 FL (6.5-10.1) Neutrophils (%) (Auto) 65.6 % (45.0-75.0) 69.3 % (45.0-75.0) 66.9 % (45.0-75.0) 71.8 % (45.0-75.0) Lymphocytes (%) (Auto) 15.6 % (20.0-45.0) 18.6 % (20.0-45.0) 18.6 % (20.0-45.0) 16.6 % (20.0-45.0) Monocytes (%) (Auto) 12.9 % (1.0-10.0) 8.0 % (1.0-10.0) 10.2 % (1.0-10.0) 8.2 % (1.0-10.0) Eosinophils (%) (Auto) 2.0 % (0.0-3.0) 2.7 % (0.0-3.0) 3.1 % (0.0-3.0) 2.3 % (0.0-3.0) Basophils (%) (Auto) 3.8 % (0.0-2.0) 1.4 % (0.0-2.0) 1.3 % (0.0-2.0) 1.1 % (0.0-2.0) Height (Feet): 5 Height (Inches): 4.00 Weight (Pounds): 148 Objective Physical Exam Sp02 Ep: reviewed, normal General: lethargic, other, Chronically Ill HEENT: moist mucus membranes, perrl, full rom Respiratory: lungs clear, normal breath sounds, no respiratory distress Cardiovascular: regular rate, rhythm Gastrointestinal: non tender, soft, Genitourinary: no CVA tenderness Musculoskeletal: back normal Neurologic: oriented - X1, sensory intact, motor weakness - Diffuse Psychiatric: depressed affect Andres Carson MD Aug 27, 2020 08:44
[2020-08-27] MEDS: Sensipar 30mg Tab ORAL SCH (09:00)
[2020-08-27] MEDS: Levothyroxine 125mcg tab ORAL SCH (09:00)
[2020-08-27] MEDS: Metoprolol Tartrate 50mg tab ORAL SCH ×2 (09:00→21:00)
[2020-08-27] MEDS: Pantoprazole Inj IVP SCH ×2 (09:00→21:02)
--- NOTE | 2020-08-27 09:27 | Nephrology Progress Note ---
Assessment/Plan Problem List: (1) ESRD (end stage renal disease) on dialysis (2) Anemia in chronic kidney disease (3) Hypertensive nephrosclerosis (4) Hypercalcemia (5) GI bleed (6) Bronchitis (7) Cirrhosis (8) Sepsis Plan HD 08/18 08/19,08/21 08/24 08/26 transfused, ppi, hhn, bacteremia staph likely contaminant, vanco given, GI eval reviewed, prior Hb> 11 suspect occult gi bleed which may have stopped by arrival, mobilize with PT Subjective Constitutional: Reports: no symptoms HEENT: Reports: no symptoms Genitourinary: Reports: incontinence Neurologic/Psychiatric: Reports: pre-existing deficit Objective Objective Last 24 Hour Vital Signs Date Time Temp Pulse Resp B/P (MAP) Pulse Ox O2 Delivery O2 Flow Rate FiO2 08/27/20 08:00 97.2 77 18 120/59 (79) 98 08/27/20 05:09 156/69 08/27/20 04:00 97.9 77 18 156/69 (98) 97 08/26/20 23:55 97.5 74 18 148/65 (92) 97 08/26/20 21:07 146/63 08/26/20 21:06 81 146/63 08/26/20 20:34 Nasal Cannula 2.0 08/26/20 20:06 98.1 81 18 146/63 (90) 97 08/26/20 16:00 97.5 73 16 137/82 (100) 99 08/26/20 13:01 136/70 08/26/20 12:00 97.3 77 18 136/70 (92) 97 Intake and Output 08/26/20 08/27/20 19:00 07:00 Intake Total 240 ml 260 ml Output Total 2000 ml Balance -1760 ml 260 ml Intake Oral 240 ml Other 260 ml Hemodialysis UF 2000 ml # Voids 1 # Bowel Movements 1 Laboratory Tests 08/27/20 04:51: White Blood Count 4.5L, Red Blood Count 2.98L, Hemoglobin 9.5L, Hematocrit 27.7L , Mean Corpuscular Volume 93, Mean Corpuscular Hemoglobin 31.8H, Mean Corpuscular Hemoglobin Concent 34.2, Red Cell Distribution Width 15.5H, Platelet Count 146L, Mean Platelet Volume 7.8, Neutrophils (%) (Auto) 71.8, Lymphocytes (%) (Auto) 16.6L, Monocytes (%) (Auto) 8.2, Eosinophils (%) (Auto) 2.3, Basophils (%) (Auto) 1.1 Height (Feet): 5 Height (Inches): 4.00 Weight (Pounds): 148 General Appearance: no apparent distress, alert EENT: normal ENT inspection Neck: supple Cardiovascular: regular rhythm Respiratory/Chest: lungs clear Abdomen: non tender, soft Extremities: no edema 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
[2020-08-27] MEDS: Docusate 100mg/10ml Liq ORAL SCH (09:35)
--- NOTE | 2020-08-27 10:25 | NUR ---
NURSE NOTES: RN was instructed by Dr. Lemus to remove AV dressing and leave open to air. RN cleaned site with soap and water per Dr. Lemus's instruction
--- NOTE | 2020-08-27 11:24 | Infectious Diseases Prog Note ---
Assessment/Plan Assessment/Plan antibiotics : none A 1. coag neg staph ? sepsis 2. renal failure on HD 3. CHF 4. anemia 5. cirrhosis P 1. observe off antibiotics 2. will follow up cultures Subjective Constitutional: Denies: fever, chills Respiratory: Denies: shortness of breath, dry cough Gastrointestinal/Abdominal: Denies: nausea, vomiting, diarrhea Musculoskeletal: Denies: pain Allergies: Coded Allergies: ERYTHROMYCIN BASE (Unverified Allergy, Intermediate, 07/14/19) Per patient not allergic to medications or food Objective Last 24 Hour Vital Signs Date Time Temp Pulse Resp B/P (MAP) Pulse Ox O2 Delivery O2 Flow Rate FiO2 08/27/20 09:00 Nasal Cannula 2.0 08/27/20 09:00 77 120/59 08/27/20 09:00 77 120/59 08/27/20 08:00 97.2 77 18 120/59 (79) 98 08/27/20 05:09 156/69 08/27/20 04:00 97.9 77 18 156/69 (98) 97 08/26/20 23:55 97.5 74 18 148/65 (92) 97 08/26/20 21:07 146/63 08/26/20 21:06 81 146/63 08/26/20 20:34 Nasal Cannula 2.0 08/26/20 20:06 98.1 81 18 146/63 (90) 97 08/26/20 16:00 97.5 73 16 137/82 (100) 99 08/26/20 13:01 136/70 08/26/20 12:00 97.3 77 18 136/70 (92) 97 Height (Feet): 5 Height (Inches): 4.00 Weight (Pounds): 148 Respiratory/Chest: lungs clear Cardiovascular: normal rate, regular rhythm, no gallop/murmur Abdomen: soft, non tender Extremities: no edema Laboratory Tests Test 08/27/20 04:51 White Blood Count 4.5 K/UL (4.8-10.8) L Red Blood Count 2.98 M/UL (4.20-5.40) L Hemoglobin 9.5 G/DL (12.0-16.0) L Hematocrit 27.7 % (37.0-47.0) L Mean Corpuscular Volume 93 FL (80-99) Mean Corpuscular Hemoglobin 31.8 PG (27.0-31.0) H Mean Corpuscular Hemoglobin Concent 34.2 G/DL (32.0-36.0) Red Cell Distribution Width 15.5 % (11.6-14.8) H Platelet Count 146 K/UL (150-450) L Mean Platelet Volume 7.8 FL (6.5-10.1) Neutrophils (%) (Auto) 71.8 % (45.0-75.0) Lymphocytes (%) (Auto) 16.6 % (20.0-45.0) L Monocytes (%) (Auto) 8.2 % (1.0-10.0) Eosinophils (%) (Auto) 2.3 % (0.0-3.0) Basophils (%) (Auto) 1.1 % (0.0-2.0) Current Medications Medications (Trade) Dose Ordered Sig/Jonathan Route PRN Reason Start Time Stop Time Status Last Admin Dose Admin Acetaminophen (Tylenol) 650 mg QHS PRN ORAL For Pain and fever 08/25/20 19:30 09/16/20 15:59 08/25/20 21:05 Amlodipine Besylate (Norvasc) 5 mg DAILY ORAL 08/23/20 09:00 09/22/20 08:59 08/25/20 08:27 Cinacalcet (Sensipar) 60 mg DAILY ORAL 08/26/20 09:00 11/16/20 08:59 08/27/20 09:00 Clonidine HCl (Catapres tab) 0.2 mg Q8HR ORAL 08/25/20 22:00 11/15/20 17:59 08/27/20 05:09 Docusate Sodium (Colace) 250 mg DAILY ORAL 08/26/20 09:00 09/17/20 08:59 08/27/20 09:35 Epoetin Phu (Epoetin Phu(ESRD on dialysis)) 10,000 unit SUN-SUN-SUN SUBQ 08/25/20 21:00 11/23/20 20:59 08/25/20 21:04 Heparin Sodium (Porcine) (Heparin Sod 1000 units/ml 10ml) 500 unit ONCE PRN IV HD 08/28/20 06:00 08/28/20 23:59 Levothyroxine Sodium (Synthroid) 125 mcg DAILY ORAL 08/26/20 09:00 09/17/20 08:59 08/27/20 09:00 Metoprolol Tartrate (Lopressor) 50 mg EVERY 12 HOURS ORAL 08/25/20 21:00 11/15/20 20:59 08/27/20 09:00 Pantoprazole (Protonix) 40 mg EVERY 12 HOURS IVP 08/17/20 21:00 09/16/20 20:59 08/27/20 09:00 Sodium Chloride 1,000 ml @ 500 mls/hr Q2H PRN IVLG sbp<90 during hd 08/28/20 06:00 08/28/20 23:59 Temazepam (Restoril) 15 mg QHS ORAL 08/23/20 21:00 08/30/20 20:59 08/26/20 21:06 Jessica Reyes MD Aug 27, 2020 11:24
[2020-08-27 12:00] VITALS: BP 130/72
--- NOTE | 2020-08-27 12:41 | General Progress Note ---
Subjective ROS Limited/Unobtainable: No Constitutional: Reports: malaise, weakness HEENT: Reports: no symptoms Cardiovascular: Reports: no symptoms Respiratory: Reports: no symptoms Gastrointestinal/Abdominal: Reports: no symptoms Genitourinary: Reports: no symptoms Neurologic/Psychiatric: Reports: anxiety Endocrine: Reports: no symptoms Hematologic/Lymphatic: Reports: anemia Allergies: Coded Allergies: ERYTHROMYCIN BASE (Unverified Allergy, Intermediate, 07/14/19) Per patient not allergic to medications or food All Systems: reviewed and negative except above Subjective no events. no reports of bleeding. no fever or chills. no sob. h/h/ stable. tolerating HD Objective Last 24 Hour Vital Signs Date Time Temp Pulse Resp B/P (MAP) Pulse Ox O2 Delivery O2 Flow Rate FiO2 08/27/20 12:00 97.3 84 18 130/72 (91) 98 08/27/20 09:00 Nasal Cannula 2.0 08/27/20 09:00 77 120/59 08/27/20 09:00 77 120/59 08/27/20 08:00 97.2 77 18 120/59 (79) 98 08/27/20 05:09 156/69 08/27/20 04:00 97.9 77 18 156/69 (98) 97 08/26/20 23:55 97.5 74 18 148/65 (92) 97 08/26/20 21:07 146/63 08/26/20 21:06 81 146/63 08/26/20 20:34 Nasal Cannula 2.0 08/26/20 20:06 98.1 81 18 146/63 (90) 97 08/26/20 16:00 97.5 73 16 137/82 (100) 99 08/26/20 13:01 136/70 Intake and Output 08/26/20 08/27/20 19:00 07:00 Intake Total 240 ml 260 ml Output Total 2000 ml Balance -1760 ml 260 ml Intake Oral 240 ml Other 260 ml Hemodialysis UF 2000 ml # Voids 1 # Bowel Movements 1 Laboratory Tests 08/27/20 04:51: White Blood Count 4.5L, Red Blood Count 2.98L, Hemoglobin 9.5L, Hematocrit 27.7L , Mean Corpuscular Volume 93, Mean Corpuscular Hemoglobin 31.8H, Mean Corpuscular Hemoglobin Concent 34.2, Red Cell Distribution Width 15.5H, Platelet Count 146L, Mean Platelet Volume 7.8, Neutrophils (%) (Auto) 71.8, Lymphocytes (%) (Auto) 16.6L, Monocytes (%) (Auto) 8.2, Eosinophils (%) (Auto) 2.3, Basophils (%) (Auto) 1.1 Height (Feet): 5 Height (Inches): 4.00 Weight (Pounds): 148 Objective General Appearance: WD/WN, alert EENT: normal ENT inspection Neck: non-tender, normal alignment, supple Cardiovascular: normal peripheral pulses, normal rate, regular rhythm Respiratory/Chest: chest wall non-tender, lungs clear, normal breath sounds, no respiratory distress Abdomen: normal bowel sounds, non tender, soft, no organomegaly Extremities: normal range of motion Edema: no edema noted Arm (L), no edema noted Arm (R) Neurologic: rib builder II-XII grossly normal, alert, responsive Skin: normal pigmentation Assessment/Plan Problem List: (1) CKD (chronic kidney disease) stage 4, GFR 15-29 ml/min ICD Codes: N18.4 - Chronic kidney disease, stage 4 (severe) SNOMED: 398127207 (2) End-stage renal disease ICD Codes: N18.6 - End stage renal disease SNOMED: 60211605 (3) Hypothyroidism ICD Codes: E03.9 - Hypothyroidism SNOMED: 61442669 (4) Fever ICD Codes: R50.9 - Fever, unspecified SNOMED: 992839059 (5) Anemia in chronic kidney disease ICD Codes: N18.9 - Chronic kidney disease, unspecified; D63.1 - Anemia in chr onic kidney disease SNOMED: 396823629 (6) GI bleed ICD Codes: K92.2 - Gastrointestinal hemorrhage, unspecified SNOMED: 18692973 (7) History of GI bleed ICD Codes: Z87.19 - Personal history of other diseases of the digestive system SNOMED: 511047930 (8) CHF exacerbation ICD Codes: I50.9 - Heart failure, unspecified SNOMED: 477075880, 07251392721660 (9) ESRD (end stage renal disease) on dialysis ICD Codes: N18.6 - End stage renal disease; Z99.2 - Dependence on renal dialysis SNOMED: 260529564 Status: stable Assessment/Plan: monitor h/h - cbc improving transfuse as needed monitor for bleeding PPI rx off hydralazine- may suppress BM iv abx follow up cultures HD per renal dc planning tomorrow(sunday)after HD. Dtr unable to accept pt today Chema Hendricks MD Aug 27, 2020 12:41
--- NOTE | 2020-08-27 12:49 | NUR ---
NURSE NOTES: RN made Dr. Negrete aware that Dr. Lemus put in order for dialysis tomorrow. Discharge order was given by Dr. Negrete, Dr. negrete then change discharge to tomorrow after dialysis
--- NOTE | 2020-08-27 13:36 | NUR ---
*-*DISCHARGE PLANNING*-* PATIENT HAS BEEN REFERRED TO: [facility] P: [phone]
--- NOTE | 2020-08-27 14:46 | NUR ---
*-*DISCHARGE PLANNED*-* PATIENT HAS BEEN ACCEPTED WITH: [facility] P: [phone] S/W SEVERO, WILL SERVICE PATIENT UPON DISCHARGE.
--- NOTE | 2020-08-27 15:29 | NUR ---
P.T Weekly Progress Notes: Pt being seen for Skilled P.T services. Tx consisted of ADL/functional mobility training, thera ex and gait training using the FWW. Pt responded well to P.T and has made significant progress in functional activities. Pt able to perform bed mobilities independently despite some degree of difficulties transitioning from supine to/from sitting position. Pt currently requires SBA x 1 for transfers and able to to ambulate average distance of 150 ft using the FWW with SBA x 1. Will continue with POC to further improve and increase functional mobility independence towards return to PLOF. Recommend home P.T or SNF for for further rehab intervention at [place]. Addendum: 08/27/20 at 1537 by MERLYN PIERCE PT Amended: Links added.
[2020-08-27 16:00] VITALS: BP 138/73
--- NOTE | 2020-08-27 19:44 | NUR ---
NURSE HAND-OFF: Important Events on Shift: active discharge order, HD tomorrow Patient Status: stable Diet: renal Pending Orders: n/a Pending Results/Labs:n/a Pending MD notification:n/a Latest Vital Signs: Temperature 97.3 , Pulse 73 , B/P 138 /73 , Respiratory Rate 18 , O2 SAT 98 , Nasal Cannula, O2 Flow Rate 2.0 . Vital Sign Comment: stable Latest Virgen Fall Score: 45 Fall Risk: High Risk Safety Measures: Call light Within Reach, Bed Alarm Zone 1, Side Rails Side Rails x2, Bed position Low and Locked. Fall Precautions: Yellow Socks Yellow Gown Door Sign Patient Fall Education Report given to ENRIQUE Lopez.
--- NOTE | 2020-08-27 19:45 | NUR ---
NURSE NOTES: Received report from ENRIQUE Arreola. Patient in bed, awake, alert and oriented x 4, verbal and able to make needs known. No shortness of breath, bed in lowest position, side rails x2, bed alarm on, denies any pain at this time, IV line intact on left FA, AV shunt present on RAEGAN, on room air, will continue to monitor and proceed with plan of care, call light within reach Addendum: 08/28/20 at 0822 by Jessica Benavides RN Report received from alba Burton
[2020-08-27 20:00] VITALS: BP 107/54
[2020-08-27] MEDS: Epoetin Alfa-EPBX(ESRD on dialysis)10,000 unit/ml vial SUBQ SCH (21:02)
--- NOTE | 2020-08-27 21:54 | General Progress Note ---
Subjective Allergies: Coded Allergies: ERYTHROMYCIN BASE (Unverified Allergy, Intermediate, 07/14/19) Per patient not allergic to medications or food Subjective above noted awake and no complaints no events Objective Last 24 Hour Vital Signs Date Time Temp Pulse Resp B/P (MAP) Pulse Ox O2 Delivery O2 Flow Rate FiO2 08/27/20 21:00 Room Air 08/27/20 20:00 97.7 64 18 107/54 (71) 98 08/27/20 16:00 97.3 73 18 138/73 (94) 98 08/27/20 13:14 130/72 08/27/20 12:00 97.3 84 18 130/72 (91) 98 08/27/20 09:00 Nasal Cannula 2.0 08/27/20 09:00 77 120/59 08/27/20 09:00 77 120/59 08/27/20 08:00 97.2 77 18 120/59 (79) 98 08/27/20 05:09 156/69 08/27/20 04:00 97.9 77 18 156/69 (98) 97 08/26/20 23:55 97.5 74 18 148/65 (92) 97 Intake and Output 08/26/20 08/27/20 19:00 07:00 Intake Total 240 ml 260 ml Output Total 2000 ml Balance -1760 ml 260 ml Intake Oral 240 ml Other 260 ml Hemodialysis UF 2000 ml # Voids 1 # Bowel Movements 1 Laboratory Tests 08/27/20 04:51: White Blood Count 4.5L, Red Blood Count 2.98L, Hemoglobin 9.5L, Hematocrit 27.7L , Mean Corpuscular Volume 93, Mean Corpuscular Hemoglobin 31.8H, Mean Corpuscular Hemoglobin Concent 34.2, Red Cell Distribution Width 15.5H, Platelet Count 146L, Mean Platelet Volume 7.8, Neutrophils (%) (Auto) 71.8, Lymphocytes (%) (Auto) 16.6L, Monocytes (%) (Auto) 8.2, Eosinophils (%) (Auto) 2.3, Basophils (%) (Auto) 1.1 Height (Feet): 5 Height (Inches): 4.00 Weight (Pounds): 148 Objective Debilitated AA woman NCAT supple CTA RR abd soft ND NT no edema Assessment/Plan Status: stable Assessment/Plan: Assessment - recurrent severe Anemia: - ? ESRD - ? Bone marrow d/o vs Cirrhosis (pancytopenia) - ? GI loss - s/p recent negative EGD/Colonoscopy/capsule endoscopy - no Sx of GIB, and no Iron deficiency - recurrent anorexia - ESRD - h/o CHF - RAD - Cirrhosis Recommendations - check labs - hematology eval noted - follow CBC Mina Rao MD Aug 27, 2020 21:54
[2020-08-27 23:00] VITALS: BP 110/60
--- NOTE | 2020-08-28 00:04 | Cardiology Progress Note ---
Subjective DATE OF SERVICE: Aug 27, 2020 Abdominal US notable for splenomegaly and cirrhosis. Remains on IV abx for S.capitis bacteremia. s/p PRBC transfusions - hemoglobin remains stable. No c/o CP or SOB EGD did not reveal any acute findings or bleeding source Hydralazine discont'd, as may suppress BM. No current plan for BM biopsy. Objective Last 24 Hour Vital Signs Date Time Temp Pulse Resp B/P (MAP) Pulse Ox O2 Delivery O2 Flow Rate FiO2 08/27/20 23:30 110/60 08/27/20 23:00 110/60 (77) 08/27/20 21:00 61 100/52 08/27/20 21:00 Room Air 08/27/20 20:00 97.7 64 18 107/54 (71) 98 08/27/20 16:00 97.3 73 18 138/73 (94) 98 08/27/20 13:14 130/72 08/27/20 12:00 97.3 84 18 130/72 (91) 98 08/27/20 09:00 Nasal Cannula 2.0 08/27/20 09:00 77 120/59 08/27/20 09:00 77 120/59 08/27/20 08:00 97.2 77 18 120/59 (79) 98 08/27/20 05:09 156/69 08/27/20 04:00 97.9 77 18 156/69 (98) 97 ROS: Unchanged from my evaluation of 08/17/20. HEENT: normal ENT inspection RHYTHM: NSR, PACs LUNGS: lungs clear bilaterally, diminished breath sounds CARDIAC: normal rate, regular rhythm, normal S1 and S2, systolic murmur - 1/6 systolic murmur at base ABDOMEN: normal bowel sounds, non tender, soft, no organomegaly EXTREMITIES: normal range of motion, trace edema Laboratory Tests Test 08/27/20 04:51 White Blood Count 4.5 K/UL (4.8-10.8) L Red Blood Count 2.98 M/UL (4.20-5.40) L Hemoglobin 9.5 G/DL (12.0-16.0) L Hematocrit 27.7 % (37.0-47.0) L Mean Corpuscular Volume 93 FL (80-99) Mean Corpuscular Hemoglobin 31.8 PG (27.0-31.0) H Mean Corpuscular Hemoglobin Concent 34.2 G/DL (32.0-36.0) Red Cell Distribution Width 15.5 % (11.6-14.8) H Platelet Count 146 K/UL (150-450) L Mean Platelet Volume 7.8 FL (6.5-10.1) Neutrophils (%) (Auto) 71.8 % (45.0-75.0) Lymphocytes (%) (Auto) 16.6 % (20.0-45.0) L Monocytes (%) (Auto) 8.2 % (1.0-10.0) Eosinophils (%) (Auto) 2.3 % (0.0-3.0) Basophils (%) (Auto) 1.1 % (0.0-2.0) Assessment/Plan Assessment/Plan S. capitis bacteremia with increased risk for endocarditis, but no echocardiographic criteria noted. Severe anemia ESRD Hx g-tube Hypertension/HHD Hx hypothyroidism - now euthyroid Chronic diastolic CHF Cerebrovascular disease BM suppression with pancytopenia - likely associated with splenomegaly and cirrhosis. Off hydralazine; amlodipine titrated adequately. PRBC tx for hemoglobin below 7 Epogen and vitamin suppl No anti-plt rx HD/UF Titrate anti-HTN regimen Abx per ID Monitor CBC as outpatient Agree with discharge plan. Lance Rivas MD Aug 28, 2020 00:04
[2020-08-28 04:00] VITALS: BP 132/69
[2020-08-28] MEDS ORDERED: Heparin Sod 1000 units/ml 10ml IV PRN (06:00)
[2020-08-28] MEDS: cloNIDine 0.2mg Tab ORAL SCH ×2 (06:33→14:17)
[2020-08-28 07:30] LABS: BASOPHILS % (AUTO) 0.8 % (0.0-2.0); EOSINOPHILS % (AUTO) 1.9 % (0.0-3.0); LYMPHOCYTES % (AUTO) 16.1 % (20.0-45.0); MEAN CORPUSCULAR VOLUME 93 FL (80-99); MONOCYTES % (AUTO) 10.6 % (1.0-10.0); NEUTROPHILS % (AUTO) 70.6 % (45.0-75.0); PLATELET COUNT 145 K/UL (150-450); RED BLOOD COUNT 3.13 M/UL (4.20-5.40); RED CELL DISTRIBUTION WIDTH 14.6 % (11.6-14.8); WHITE BLOOD COUNT 3.7 K/UL (4.8-10.8)
--- NOTE | 2020-08-28 07:30 | NUR ---
NURSE NOTES: Received patient in bed, patient awake, alert and oriented x 4, no sign of distress,on RA, HL patent , denies pain or discomgort, AV shunt present on RAEGAN, will continue to monitor and proceed with plan of care, call light within reach ENRIQUE finch
[2020-08-28 08:00] VITALS: BP 132/62
--- NOTE | 2020-08-28 08:23 | NUR ---
NURSE HAND-OFF: Important Events on Shift: active discharge order, HD tomorrow and discharging after HD Patient Status: stable Diet: renal Pending Orders: active DC order following hemodialysis, to go home with home health, gave RN oncoming info to call daughter Sharron and update re time of completion estimated for HD Vital Sign Comment: stable Latest Virgen Fall Score: 45 Fall Risk: High Risk Safety Measures: Call light Within Reach, Bed Alarm Zone 1, Side Rails Side Rails x2, Bed position Low and Locked. Fall Precautions: Yellow Socks Yellow Gown Door Sign Patient Fall Education Report given to Miriam NUNEZ
--- NOTE | 2020-08-28 08:24 | Hematology/Onc Progress Note ---
Assessment/Plan Assessment/Plan Assessment and Recs # Pancytopenia that has been persistent last few years, reviewed prior labs and imaging, does show evidence of cirrhosis and splenoemgaly, is chronic --> us abd: Cirrhosis of the liver with signs of portal hypertension including ascites and splenomegaly. --> anemia panel reviewed --> keep hgb >8 with epo as needed currently stable --> give above of cirrhosis/splenomegaly hold off bone marrow biopsy --> per GI, for EGD/SB enteroscopy revealed Gastritis --> plt 104-->145 --> wbc 3.2-->3.7 --> hgb 8-->10 # End-stage renal disease. Evaluation reveals profound anemia. -> hd as per Dr. Lemus --> right arm fistula acces # Hypotension --> fluids as needed, pressors prn. # Elevated lactic acid level # History of GI bleed # hx cva # AMS # Recurrent anorexia Appreciate consultation and haritha RN Subjective Allergies: Coded Allergies: ERYTHROMYCIN BASE (Unverified Allergy, Intermediate, 07/14/19) Per patient not allergic to medications or food Subjective Subjective: 10: pt awake resting no events overnight, labs reviewed hgb stable. Objective Objective Current Medications Medications (Trade) Dose Ordered Sig/Jonathan Route PRN Reason Start Time Stop Time Status Last Admin Dose Admin Acetaminophen (Tylenol) 650 mg QHS PRN ORAL For Pain and fever 08/25/20 19:30 09/16/20 15:59 08/25/20 21:05 Amlodipine Besylate (Norvasc) 5 mg DAILY ORAL 08/23/20 09:00 09/22/20 08:59 08/25/20 08:27 Cinacalcet (Sensipar) 60 mg DAILY ORAL 08/26/20 09:00 11/16/20 08:59 08/27/20 09:00 Clonidine HCl (Catapres tab) 0.2 mg Q8HR ORAL 08/25/20 22:00 11/15/20 17:59 08/28/20 06:33 Docusate Sodium (Colace) 250 mg DAILY ORAL 08/26/20 09:00 09/17/20 08:59 08/27/20 09:35 Epoetin Phu (Epoetin Phu(ESRD on dialysis)) 10,000 unit SUN-SUN-SUN SUBQ 08/25/20 21:00 1/5/21 20:59 08/27/20 21:02 Heparin Sodium (Porcine) (Heparin Sod 1000 units/ml 10ml) 500 unit ONCE PRN IV HD 08/28/20 06:00 08/28/20 23:59 Levothyroxine Sodium (Synthroid) 125 mcg DAILY ORAL 08/26/20 09:00 09/17/20 08:59 08/27/20 09:00 Metoprolol Tartrate (Lopressor) 50 mg EVERY 12 HOURS ORAL 08/25/20 21:00 11/15/20 20:59 08/27/20 09:00 Pantoprazole (Protonix) 40 mg EVERY 12 HOURS IVP 08/17/20 21:00 09/16/20 20:59 08/27/20 21:02 Sodium Chloride 1,000 ml @ 500 mls/hr Q2H PRN IVLG sbp<90 during hd 08/28/20 06:00 08/28/20 23:59 Temazepam (Restoril) 15 mg QHS ORAL 08/23/20 21:00 08/30/20 20:59 08/27/20 21:03 Last 24 Hour Vital Signs Date Time Temp Pulse Resp B/P (MAP) Pulse Ox O2 Delivery O2 Flow Rate FiO2 08/28/20 06:33 132/69 08/28/20 04:00 97.5 69 18 132/69 (90) 95 08/27/20 23:30 110/60 08/27/20 23:00 110/60 (77) 08/27/20 21:00 61 100/52 08/27/20 21:00 Room Air 08/27/20 20:00 97.7 64 18 107/54 (71) 98 08/27/20 16:00 97.3 73 18 138/73 (94) 98 08/27/20 13:14 130/72 08/27/20 12:00 97.3 84 18 130/72 (91) 98 08/27/20 09:00 Nasal Cannula 2.0 08/27/20 09:00 77 120/59 08/27/20 09:00 77 120/59 08/27/20 08:00 97.2 77 18 120/59 (79) 98 08/27/20 05:09 156/69 08/27/20 04:00 97.9 77 18 156/69 (98) 97 08/26/20 23:55 97.5 74 18 148/65 (92) 97 08/26/20 21:07 146/63 08/26/20 21:06 81 146/63 08/26/20 20:34 Nasal Cannula 2.0 08/26/20 20:06 98.1 81 18 146/63 (90) 97 08/26/20 16:00 97.5 73 16 137/82 (100) 99 08/26/20 13:01 136/70 08/26/20 12:00 97.3 77 18 136/70 (92) 97 08/26/20 09:00 Nasal Cannula 2.0 08/26/20 08:48 68 137/64 08/26/20 08:48 68 137/64 Intake and Output 08/27/20 08/28/20 19:00 07:00 Intake Total 720 ml 120 ml Balance 720 ml 120 ml Intake Oral 720 ml 120 ml # Voids 3 1 # Bowel Movements 1 1 Labs Test 08/26/20 06:10 08/27/20 04:51 08/28/20 07:00 White Blood Count 3.9 K/UL (4.8-10.8) 4.5 K/UL (4.8-10.8) 3.7 K/UL (4.8-10.8) Red Blood Count 2.81 M/UL (4.20-5.40) 2.98 M/UL (4.20-5.40) 3.13 M/UL (4.20-5.40) Hemoglobin 9.0 G/DL (12.0-16.0) 9.5 G/DL (12.0-16.0) 10.0 G/DL (12.0-16.0) Hematocrit 26.2 % (37.0-47.0) 27.7 % (37.0-47.0) 29.0 % (37.0-47.0) Mean Corpuscular Volume 93 FL (80-99) 93 FL (80-99) 93 FL (80-99) Mean Corpuscular Hemoglobin 32.0 PG (27.0-31.0) 31.8 PG (27.0-31.0) 31.9 PG (27.0-31.0) Mean Corpuscular Hemoglobin Concent 34.2 G/DL (32.0-36.0) 34.2 G/DL (32.0-36.0) 34.4 G/DL (32.0-36.0) Red Cell Distribution Width 15.1 % (11.6-14.8) 15.5 % (11.6-14.8) 14.6 % (11.6-14.8) Platelet Count 145 K/UL (150-450) 146 K/UL (150-450) 145 K/UL (150-450) Mean Platelet Volume 7.5 FL (6.5-10.1) 7.8 FL (6.5-10.1) 7.5 FL (6.5-10.1) Neutrophils (%) (Auto) 66.9 % (45.0-75.0) 71.8 % (45.0-75.0) 70.6 % (45.0-75.0) Lymphocytes (%) (Auto) 18.6 % (20.0-45.0) 16.6 % (20.0-45.0) 16.1 % (20.0-45.0) Monocytes (%) (Auto) 10.2 % (1.0-10.0) 8.2 % (1.0-10.0) 10.6 % (1.0-10.0) Eosinophils (%) (Auto) 3.1 % (0.0-3.0) 2.3 % (0.0-3.0) 1.9 % (0.0-3.0) Basophils (%) (Auto) 1.3 % (0.0-2.0) 1.1 % (0.0-2.0) 0.8 % (0.0-2.0) Height (Feet): 5 Height (Inches): 4.00 Weight (Pounds): 148 Objective Physical Exam Sp02 Ep: reviewed, normal General: lethargic, other, Chronically Ill HEENT: moist mucus membranes, perrl, full rom Respiratory: lungs clear, normal breath sounds, no respiratory distress Cardiovascular: regular rate, rhythm Gastrointestinal: non tender, soft, Genitourinary: no CVA tenderness Musculoskeletal: back normal Neurologic: oriented - X1, sensory intact, motor weakness - Diffuse Psychiatric: depressed affect Ayaka Kwon NP Aug 28, 2020 08:24
[2020-08-28] MEDS: Pantoprazole Inj IVP SCH (08:51)
[2020-08-28] MEDS: Metoprolol Tartrate 50mg tab ORAL SCH (08:51)
[2020-08-28] MEDS: Docusate 100mg/10ml Liq ORAL SCH (08:51)
[2020-08-28] MEDS: Sensipar 30mg Tab ORAL SCH (08:52)
[2020-08-28] MEDS: Levothyroxine 125mcg tab ORAL SCH (08:52)
--- NOTE | 2020-08-28 09:06 | General Progress Note ---
Subjective Allergies: Coded Allergies: ERYTHROMYCIN BASE (Unverified Allergy, Intermediate, 07/14/19) Per patient not allergic to medications or food Subjective above noted awake and no complaints Objective Last 24 Hour Vital Signs Date Time Temp Pulse Resp B/P (MAP) Pulse Ox O2 Delivery O2 Flow Rate FiO2 08/28/20 08:51 63 132/62 08/28/20 08:51 63 132/62 08/28/20 08:00 98.9 63 19 132/62 (85) 98 08/28/20 06:33 132/69 08/28/20 04:00 97.5 69 18 132/69 (90) 95 08/27/20 23:30 110/60 08/27/20 23:00 110/60 (77) 08/27/20 21:00 61 100/52 08/27/20 21:00 Room Air 08/27/20 20:00 97.7 64 18 107/54 (71) 98 08/27/20 16:00 97.3 73 18 138/73 (94) 98 08/27/20 13:14 130/72 08/27/20 12:00 97.3 84 18 130/72 (91) 98 Intake and Output 08/27/20 08/28/20 19:00 07:00 Intake Total 720 ml 120 ml Balance 720 ml 120 ml Intake Oral 720 ml 120 ml # Voids 3 1 # Bowel Movements 1 1 Laboratory Tests 08/28/20 07:00: White Blood Count 3.7L, Red Blood Count 3.13L, Hemoglobin 10.0L, Hematocrit 29.0L, Mean Corpuscular Volume 93, Mean Corpuscular Hemoglobin 31.9H, Mean Co rpuscular Hemoglobin Concent 34.4, Red Cell Distribution Width 14.6, Platelet Count 145L, Mean Platelet Volume 7.5, Neutrophils (%) (Auto) 70.6, Lymphocytes (%) (Auto) 16.1L, Monocytes (%) (Auto) 10.6H, Eosinophils (%) (Auto) 1.9, Basophils (%) (Auto) 0.8 Height (Feet): 5 Height (Inches): 4.00 Weight (Pounds): 148 Objective Debilitated AA woman NCAT supple CTA RR abd soft ND NT no edema Assessment/Plan Status: stable Assessment/Plan: Assessment - recurrent severe Anemia: - ? ESRD - ? Bone marrow d/o vs Cirrhosis (pancytopenia) - ? GI loss - s/p recent negative EGD/Colonoscopy/capsule endoscopy/SB entero - no Sx of GIB, and no Iron deficiency - recurrent anorexia - ESRD - h/o CHF - RAD - Cirrhosis Recommendations - Follow labs - hematology eval noted - Push po - conservative management - Poor snf Px Mina Rao MD Aug 28, 2020 09:06
--- NOTE | 2020-08-28 10:08 | Nephrology Progress Note ---
Assessment/Plan Problem List: (1) ESRD (end stage renal disease) on dialysis (2) Anemia in chronic kidney disease (3) Hypertensive nephrosclerosis (4) Hypercalcemia (5) GI bleed (6) Bronchitis (7) Cirrhosis (8) Sepsis Plan HD 08/18 08/19,08/21 08/24 08/26 08/28 transfused, ppi, hhn, bacteremia staph likely contaminant, vanco given, GI eval reviewed, prior Hb> 11 suspect occult gi bleed which may have stopped by arrival, mobilize with PT Subjective Constitutional: Reports: no symptoms HEENT: Reports: no symptoms Genitourinary: Reports: incontinence Neurologic/Psychiatric: Reports: pre-existing deficit Objective Objective Last 24 Hour Vital Signs Date Time Temp Pulse Resp B/P (MAP) Pulse Ox O2 Delivery O2 Flow Rate FiO2 08/28/20 08:51 63 132/62 08/28/20 08:51 63 132/62 08/28/20 08:40 Room Air 08/28/20 08:00 98.9 63 19 132/62 (85) 98 08/28/20 06:33 132/69 08/28/20 04:00 97.5 69 18 132/69 (90) 95 08/27/20 23:30 110/60 08/27/20 23:00 110/60 (77) 08/27/20 21:00 61 100/52 08/27/20 21:00 Room Air 08/27/20 20:00 97.7 64 18 107/54 (71) 98 08/27/20 16:00 97.3 73 18 138/73 (94) 98 08/27/20 13:14 130/72 08/27/20 12:00 97.3 84 18 130/72 (91) 98 Intake and Output 08/27/20 08/28/20 19:00 07:00 Intake Total 720 ml 120 ml Balance 720 ml 120 ml Intake Oral 720 ml 120 ml # Voids 3 1 # Bowel Movements 1 1 Laboratory Tests 08/28/20 07:00: White Blood Count 3.7L, Red Blood Count 3.13L, Hemoglobin 10.0L, Hematocrit 29.0L, Mean Corpuscular Volume 93, Mean Corpuscular Hemoglobin 31.9H, Mean Corpuscular Hemoglobin Concent 34.4, Red Cell Distribution Width 14.6, Platelet Count 145L, Mean Platelet Volume 7.5, Neutrophils (%) (Auto) 70.6, Lymphocytes (%) (Auto) 16.1L, Monocytes (%) (Auto) 10.6H, Eosinophils (%) (Auto) 1.9, Basophils (%) (Auto) 0.8 Height (Feet): 5 Height (Inches): 4.00 Weight (Pounds): 148 General Appearance: no apparent distress, alert EENT: normal ENT inspection Neck: normal alignment Cardiovascular: normal rate, regular rhythm Respiratory/Chest: lungs clear Abdomen: non tender, soft Extremities: no edema Neurologic: abnormal heeler machine II-XII, motor weakness Jose Lemus MD Aug 28, 2020 10:08
[2020-08-28 12:03] VITALS: BP 127/54
--- NOTE | 2020-08-28 12:55 | Cardiology Progress Note ---
Subjective DATE OF SERVICE: Aug 28, 2020 Abdominal US notable for splenomegaly and cirrhosis. Completed IV abx for S.capitis bacteremia. s/p PRBC transfusions - hemoglobin remains stable. No c/o CP or SOB EGD did not reveal any acute findings or bleeding source Hydralazine discont'd, as may suppress BM; BP remains well controlled. No current plan for BM biopsy. Objective Last 24 Hour Vital Signs Date Time Temp Pulse Resp B/P (MAP) Pulse Ox O2 Delivery O2 Flow Rate FiO2 08/28/20 12:03 97.7 65 16 127/54 (78) 98 08/28/20 08:51 63 132/62 08/28/20 08:51 63 132/62 08/28/20 08:40 Room Air 08/28/20 08:00 98.9 63 19 132/62 (85) 98 08/28/20 06:33 132/69 08/28/20 04:00 97.5 69 18 132/69 (90) 95 08/27/20 23:30 110/60 08/27/20 23:00 110/60 (77) 08/27/20 21:00 61 100/52 08/27/20 21:00 Room Air 08/27/20 20:00 97.7 64 18 107/54 (71) 98 08/27/20 16:00 97.3 73 18 138/73 (94) 98 08/27/20 13:14 130/72 ROS: Unchanged from my evaluation of 08/17/20. HEENT: normal ENT inspection RHYTHM: NSR, PACs LUNGS: lungs clear bilaterally, diminished breath sounds CARDIAC: normal rate, regular rhythm, normal S1 and S2, systolic murmur - 1/6 systolic murmur at base ABDOMEN: normal bowel sounds, non tender, soft, no organomegaly EXTREMITIES: normal range of motion, trace edema Laboratory Tests Test 08/28/20 07:00 White Blood Count 3.7 K/UL (4.8-10.8) L Red Blood Count 3.13 M/UL (4.20-5.40) L Hemoglobin 10.0 G/DL (12.0-16.0) L Hematocrit 29.0 % (37.0-47.0) L Mean Corpuscular Volume 93 FL (80-99) Mean Corpuscular Hemoglobin 31.9 PG (27.0-31.0) H Mean Corpuscular Hemoglobin Concent 34.4 G/DL (32.0-36.0) Red Cell Distribution Width 14.6 % (11.6-14.8) Platelet Count 145 K/UL (150-450) L Mean Platelet Volume 7.5 FL (6.5-10.1) Neutrophils (%) (Auto) 70.6 % (45.0-75.0) Lymphocytes (%) (Auto) 16.1 % (20.0-45.0) L Monocytes (%) (Auto) 10.6 % (1.0-10.0) H Eosinophils (%) (Auto) 1.9 % (0.0-3.0) Basophils (%) (Auto) 0.8 % (0.0-2.0) Assessment/Plan Assessment/Plan S. capitis bacteremia with increased risk for endocarditis, but no echocardiographic criteria noted. Severe anemia ESRD Hx g-tube Hypertension/HHD Hx hypothyroidism - now euthyroid Chronic diastolic CHF Cerebrovascular disease BM suppression with pancytopenia - likely associated with splenomegaly and cirrhosis. Avoid hydralazine Epogen and vitamin suppl No anti-plt rx HD/UF completed Maintain current anti-HTN and anti-failure regimen Monitor CBC as outpatient Agree with discharge plan. Lance Rivas MD Aug 28, 2020 12:55
[2020-08-28] MEDS: Acetaminophen 650mg/20.3ml ORAL PRN (14:17)
[2020-08-28 16:06] VITALS: BP 131/73
--- NOTE | 2020-08-28 16:13 | NUR ---
nurse notes discharge to home with home health obtained, patient and patient daughter agreed with the plan of care, discharge instruction packet handed to patient daughter, home meds explained to her all questions answered verbalized understading, patient has home health 1615 Discharged in stable condition with all belongings taken accompanied by family member , discharge via private car tony finch
--- NOTE | 2020-08-29 00:45 | Discharge Summary ---
DATE OF ADMISSION: 08/17/2020 DATE OF DISCHARGE: 08/28/2020 ADMISSION DIAGNOSES: Severe anemia, abdominal pain, end-stage renal disease, hypertension, hypothyroidism, pancytopenia. DISCHARGE DIAGNOSES: Severe anemia, abdominal pain, end-stage renal disease, hypertension, hypothyroidism, pancytopenia. HISTORY OF PRESENT ILLNESS: The patient is a pleasant female who was with complaints of anorexia. She had a hemoglobin of 3. She has received multiple blood transfusions. Stool occult blood was positive, but the patient had no gross bleeding noted. She had already had extensive recent workup including a panendoscopy that was unremarkable. She also had a capsule endoscopy that showed no source of bleeding. She was monitored. Heme-Onc consultation was obtained. It was felt that possibly that her pancytopenia anemia was due to hydralazine. This was discontinued. Her hemoglobin improved gradually and on discharge was stable. She will be discharged home with close outpatient followup. DISCHARGE MEDICATIONS: Please see discharge list for discharge medications. DIET: Renal diet. ACTIVITIES: Ad-jackelin. Chema Hendricks M.D. DR: Candice JOB#: [id number] CC:
--- NOTE | 2020-09-07 21:50 | Coder Physician Query ---
Clarification is required for compliance, coding accuracy, and to reflect severity of illness for this patient. Dear Dr. AZEVEDO Date:09/07/20 Instructional Developer: Tanvir Mccarthy CCS Sepsis is mentioned in many of the progress notes, from 08/20 to 08/28, but isn't mentioned in H&P or DC summary. Staphyloccal bacteremia is mentioned in ID consult. Blood culture: 08/17 13:15 - No growth Blood culture: 08/17 13:00 - Staph Capitis WBC: 08/17 - 8.2, 08/28 3.7 A posssible diagnois of SEPSIS was made in the medical record on records mentioned above. Upon review, it is difficult to determine whether this diagnosis has been ruled in, ruled out,or is still being worked up. Please indicate below the status of the aforementioned diagnosis. [x] Treated and resolve [] Presumed and treated [] Currently under treatment [] Still being worked-up [] Ruled out [] OTHER: Present on Admission: [x] Yes [] No [] Clinically Undetermined Physician signature Date Please also document in your Progress Notes and/or Discharge Summary and indicate if the condition was present on admission. MTDD
== END 2020-08-28 16:10 | disposition home or self-care (01) | DRG 871 ==
LOC: EMR 13:39 → 2E 13:44 → EDBEDREQ 14:04 → 2E 08-19 06:21 → 4E 08-20 14:00
PROC: 30233N1 Transfusion of Nonautologous Red Blood Cells into Peripheral Vein, Percutaneous Approach (ICD-10-PCS; 2020-08-17)
PROC: 0DB78ZX Excision of Stomach, Pylorus, Via Natural or Artificial Opening Endoscopic, Diagnostic (ICD-10-PCS; principal; 2020-08-20 11:40)
DX: A41.9 Sepsis, unspecified organism (principal); N18.6 End stage renal disease; I50.33 Acute on chronic diastolic (congestive) heart failure; D61.811 Other drug-induced pancytopenia; K92.2 Gastrointestinal hemorrhage, unspecified; I13.2 Hypertensive heart and chronic kidney disease with heart failure and with stage 5 chronic kidney disease, or end stage renal disease; T46.5X5A Adverse effect of other antihypertensive drugs, initial encounter; J45.909 Unspecified asthma, uncomplicated; E03.9 Hypothyroidism, unspecified; Z88.1 Allergy status to other antibiotic agents; K57.90 Diverticulosis of intestine, part unspecified, without perforation or abscess without bleeding; Z87.891 Personal history of nicotine dependence; Z96.649 Presence of unspecified artificial hip joint; Z86.73 Personal history of transient ischemic attack (TIA), and cerebral infarction without residual deficits; D63.1 Anemia in chronic kidney disease; Z99.2 Dependence on renal dialysis; K21.9 Gastro-esophageal reflux disease without esophagitis; K74.60 Unspecified cirrhosis of liver; I95.9 Hypotension, unspecified; R41.82 Altered mental status, unspecified; R63.0 Anorexia; E83.52 Hypercalcemia; R16.1 Splenomegaly, not elsewhere classified
CPT/HCPCS: 36415; 71045; 76700; 80048; 80053; 80202; 82105; 82140; 82270; 82550; 82553; 82728; 82803; 83540; 83550; 83605; 83615; 83690; 83735; 83880; 84443; 84484; 85007; 85025; 85379; 85610; 85730; 86140; 86706; 86803; 86850; 86900; 86901; 86920; 87040; 87081; 87181; 87522; 93005; 93306; 94003; 94150; 94640; 96365; 96368; 99291; G0480; J2250; J7030; U0002

== ENCOUNTER 2020-10-23 09:33 | Inpatient (IN) | payer MEDICARE, OTHER ==
[~2020-10-23] VITALS: Ht 157.5 cm; Wt 80.3 kg
[~2020-10-23 09:33] MED LIST changes: +TYLENOL WITH C1 EACH GT
--- NOTE | 2020-10-23 12:18 | NUR ---
NURSE NOTES: Patient received as direct admission from home to room 303-1 via WC, in stable condition. Patient AOx4, calm. Vitals obtained. Respirations even/unlabored on RA. Right AV fistula +bruit, +thrill. No IV access. Home medications reviewed with patient and daughter. Belongings accounted, signed by patient. Will notify Dr. Hendricks for admission orders.
[2020-10-23 12:50] VITALS: BP 150/85
[2020-10-23] MEDS ORDERED: ASPIRIN81 MG ORAL (13:16)
[2020-10-23] MEDS ORDERED: METOPROLOL TART50 M1 ORAL (13:18)
[2020-10-23] MEDS ORDERED: LEVOTHYROXINE125 MCG ORAL (13:20)
[2020-10-23] MEDS ORDERED: TEMAZEPAM15 MG ORAL (13:20)
[2020-10-23 15:54] VITALS: BP 157/73
--- NOTE | 2020-10-23 16:00 | NUR ---
NURSE NOTES: MRSA/VRE/CRE swabs obtained at 1555, sent down to lab at this time. Addendum: 10/23/20 at 1642 by Jinny Dooley RN Complete (elbows, hips, back, buttocks, ankles, heels) skin assessment done, no impairment or rash noted. Bess-care provided with pull up change after swabs done.
--- NOTE | 2020-10-23 19:37 | NUR ---
NURSE HAND-OFF: Important Events on Shift: Direct admit at 1218, Plans for HD 10/24 with [facility] D[facility] (Spoke with Young RN from [facility] today), Type +Cross 2 units PRBCs for transfusion to be done 10/24 with HD (blood consent signed), MRSA/VRE/CRE swabs sent to lab Patient Status: stable Diet: Renal Pending Orders: labs in AM Pending Results/Labs:CBC 10/24 Pending MD notification:none Latest Vital Signs: Temperature 97.7 , Pulse 80 , B/P 157 /73 , Respiratory Rate 18 , O2 SAT 96 , , O2 Flow Rate . Vital Sign Comment: none Latest Virgen Fall Score: 55 Fall Risk: High Risk Safety Measures: Call light , Bed Alarm , Side Rails Side Rails x3, Bed position Low and Locked. Fall Precautions: Yellow Socks Yellow Gown Door Sign Patient Fall Education Report given to Celina NUNEZ.
[2020-10-23 19:53] LABS: CALCIUM 8.3 MG/DL (8.5-10.1); CREATININE 4.8 MG/DL (0.55-1.30); POTASSIUM 5.2 MMOL/L (3.5-5.1)
[2020-10-23 20:00] VITALS: BP 138/66
--- NOTE | 2020-10-23 20:12 | NUR ---
NURSES NOTE: Received report from ENRIQUE Stearns. Rounds made. Pt in bed, A/OX4 although outgoing RN says she experiences moments of forgetfulness. No outward s/s of distress noted. Breathing pattern is even and unlabored on RA. Pt on contact iso. No IV access. Will attempt this shift. Pt to have dialysis 10/24. AV fistula R arm. Bruit thrill noted with palpitation. All due medications. Bed at lowest level. Call light within reach. Pt will continue to be monitored. Addendum: 10/23/20 at 2359 by Celina Paul RN All due medications will be administered.
[2020-10-23] MEDS: cloNIDine 0.2mg Tab ORAL SCH (20:40)
--- NOTE | 2020-10-23 23:01 | History and Physical Report ---
DATE OF ADMISSION: 10/23/2020 CHIEF COMPLAINT: Severe anemia, rule out GI bleed. HISTORY OF PRESENT ILLNESS: The patient is a 74-year-old female, well known to me. She has a history of end-stage renal disease, hypertension, stroke, chronic anemia, and history of pericardial effusion, presented with complaints of severe anemia. She has had several admissions in the past for similar complaints. Her workup at that time was unremarkable. Previously, she was thought to be anemic due to side effects from medications: No reports of any bleeding or melena. No hematuria. 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 She is therefore admitted for evaluation and for evaluation of possible GI bleed. PAST MEDICAL HISTORY: As above. PAST SURGICAL HISTORY: Includes an AV fistula. CURRENT MEDICATIONS: Reconciled and reviewed. ALLERGIES: Include erythromycin. FAMILY HISTORY: Noncontributory. SOCIAL HISTORY: There is no known history of tobacco, ethanol, or drugs. REVIEW OF SYSTEMS: GENERAL: No fevers or chills. HEENT: No headaches or visual changes. CARDIOPULMONARY: No chest pain or shortness of breath. GASTROINTESTINAL: No nausea or vomiting. GENITOURINARY: No urgency or frequency. MUSCULOSKELETAL: No joint pain or swelling. NEUROLOGIC: No evidence of seizures. PHYSICAL EXAMINATION: VITAL SIGNS: Temperature 97, pulse 80, respirations 18, and blood pressure 157/73. GENERAL: The patient is well-developed, in no apparent distress. HEENT: Head is normocephalic and atraumatic. Sclerae anicteric. The oropharynx is clear. NECK: Supple. HEART: Regular rate and rhythm. LUNGS: Clear. ABDOMEN: Soft, nontender, and nondistended. EXTREMITIES: No clubbing, cyanosis, or edema LABORATORY DATA: Laboratories are pending. ASSESSMENT: This is a 74-year-old female with a history of end-stage renal disease, hypertension, and history of anemia, admitted with complaints of severe anemia, possibly secondary to GI bleed. PLAN: 1. Transfuse 2 units of packed red blood cells. 2. Check stool for occult blood. 3. Serial CBCs every 8 hours. 4. Renal consultation for hemodialysis. 5. Cardiology consultation for management of blood pressure. Chema Hendricks M.D. DR: OLVIN JOB#: [id number] CC:
[2020-10-24] VITALS (8 sets, daily range): BP systolic 133–164; BP diastolic 56–75
--- NOTE | 2020-10-24 06:33 | NUR ---
NURSE HAND-OFF: Important Events on Shift:[L FA 20g inserted NOC shift. Blood draw was not completed. Was unable to access vein. Tooth Cutter Pinion states she will come back and retry.] Patient Status: [STABLE] Diet: [CCHO] Pending Orders: [NONE] Pending Results/Labs:[ALL AM LABS] Pending MD notification:[NONE] Latest Vital Signs: Temperature 98.2 , Pulse 70 , B/P 136 /58 , Respiratory Rate 17 , O2 SAT 94 , Room Air, O2 Flow Rate . Vital Sign Comment: [WNL] Latest Virgen Fall Score: 55 Fall Risk: High Risk Safety Measures: Call light Within Reach, Bed Alarm , Side Rails Side Rails x2, Bed position Low and Locked. Fall Precautions: Yellow Socks Patient Fall Education Report given to []. Addendum: 10/24/20 at 0656 by Celina Paul RN DIET- RENAL
--- NOTE | 2020-10-24 07:20 | NUR ---
NURSE NOTES: Report received from Celina NUNEZ, rounds made. Patient AOx4, calm. VSS. Respirations even/unlabored on RA. Right AV fistula +bruit, +thrill. LFA saline lock, intact, site asymptomatic. Appetite good. Call light in reach, bed in lowest position, will continue to monitor. Will follow up with lab regarding AM lab draw. Plans for HD/blood transfusion with VIP today.
--- NOTE | 2020-10-24 07:24 | NUR ---
HAND OFF: Report given to ENRIQUE Stearns.
[2020-10-24] MEDS ORDERED: Heparin Sod 1000 units/ml 10ml IV SCH (08:00)
--- NOTE | 2020-10-24 10:04 | General Progress Note ---
Subjective ROS Limited/Unobtainable: No Constitutional: Reports: malaise, weakness HEENT: Reports: no symptoms Cardiovascular: Reports: no symptoms Respiratory: Reports: no symptoms Gastrointestinal/Abdominal: Reports: no symptoms Genitourinary: Reports: no symptoms Neurologic/Psychiatric: Reports: no symptoms Endocrine: Reports: no symptoms Hematologic/Lymphatic: Reports: anemia Allergies: Coded Allergies: ERYTHROMYCIN BASE (Unverified Allergy, Intermediate, 07/14/19) Per patient not allergic to medications or food All Systems: reviewed and negative except above Subjective no complaints. unable to draw blood. no fever or chills. no sob. no melena or brbpr. no hematuria Objective Last 24 Hour Vital Signs Date Time Temp Pulse Resp B/P (MAP) Pulse Ox O2 Delivery O2 Flow Rate FiO2 10/24/20 08:48 Room Air 10/24/20 08:00 98.1 71 16 135/56 (82) 98 10/24/20 04:00 98.2 70 17 136/58 (84) 94 10/24/20 00:00 98.4 73 16 133/60 (84) 97 10/23/20 21:00 Room Air 10/23/20 20:40 138/66 10/23/20 20:00 98.3 74 17 138/66 (90) 100 10/23/20 15:54 97.7 80 18 157/73 (101) 96 10/23/20 12:50 97.2 82 20 150/85 (106) 98 10/23/20 12:33 Room Air Intake and Output 10/23/20 10/24/20 19:00 07:00 Intake Total 200 ml 240 ml Balance 200 ml 240 ml Intake Oral 200 ml 240 ml # Voids 3 3 Laboratory Tests 10/23/20 18:55: Sodium Level 134L, Potassium Level 5.2H, Chloride Level 97L, Carbon Dioxide Level 28, Anion Gap 9, Blood Urea Nitrogen 53H, Creatinine 4.8H, Estimat Glomerular Filtration Rate 10.8, Glucose Level 83, Calcium Level 8.3L Height (Feet): 5 Height (Inches): 2.00 Weight (Pounds): 177 General Appearance: WD/WN, no apparent distress, alert EENT: PERRL/EOMI, normal ENT inspection Neck: non-tender, normal alignment, supple Cardiovascular: normal peripheral pulses, normal rate, regular rhythm Respiratory/Chest: chest wall non-tender, lungs clear, normal breath sounds, no respiratory distress Abdomen: normal bowel sounds, non tender, soft Edema: trace edema Neurologic: edging supervisor II-XII grossly normal, no motor/sensory deficits, alert, oriented x 3, responsive Assessment/Plan Problem List: (1) Anemia ICD Codes: D64.9 - Anemia, unspecified SNOMED: 433514056 (2) CKD (chronic kidney disease) stage 4, GFR 15-29 ml/min ICD Codes: N18.4 - Chronic kidney disease, stage 4 (severe) SNOMED: 122793297 (3) End-stage renal disease ICD Codes: N18.6 - End stage renal disease SNOMED: 11291926 (4) Hypothyroidism ICD Codes: E03.9 - Hypothyroidism SNOMED: 34391171 (5) GI bleed ICD Codes: K92.2 - Gastrointestinal hemorrhage, unspecified SNOMED: 70774290 Status: stable Assessment/Plan: trying to redraw labs type and cross and transfuse with HD check iron panel and stool ob PPI rx no asa. HD per renal BP rx per cards Chema Hendricks MD Oct 24, 2020 10:04
--- NOTE | 2020-10-24 10:30 | Consultation ---
DATE OF CONSULTATION: 10/24/2020 NEPHROLOGY CONSULTATION CONSULTING PHYSICIAN: Jose Lemus MD REFERRING PHYSICIAN: Chema Hendricks MD REASON FOR CONSULTATION: Anemia, end-stage renal disease. HISTORY OF PRESENT ILLNESS: The patient comes in with recurrent severe anemia. I was called by our dialysis nurse that hemoglobin this week was 6.5 and it was related to Dr. Hendricks who arranged admission. The patient has had declining hemoglobin over the last week. Her hemoglobin was above 8 and prior to the that above 9 a few weeks ago. She has had recurrent GI bleeding without any abdominal pain and had detailed GI studies in the past. There is a history of end-stage renal disease, severe hypertension, hypercalcemia of uncertain etiology with no known malignancy and a borderline PTH. Recently her calcium has been on the low side and her Sensipar was discontinued. In the past, she had a gastrostomy tube that was removed as she was eating better. She has had diverticular disease of the colon, history of CVA, dementia. PAST SURGICAL HISTORY: Include total hip arthroplasty, multiple endoscopies, gastrostomy, cholecystotomy, dialysis access in the right upper arm. HABITS: She smoked many years ago and quit. No alcohol or drugs. SOCIAL HISTORY: She lives with her daughter. HOME MEDICATIONS: Reviewed. The patient cannot give a history but include Tylenol with codeine, baby aspirin, Sensipar discontinued, clonidine 0.2 t.i.d., DSS, Prevacid, levothyroxine, metoprolol, temazepam. SYSTEM REVIEW: HEAD, EYES, EARS, NOSE, AND THROAT: Vision and hearing is good. ENDOCRINE: History of obesity. No diabetes. There is a history of hypothyroidism on replacement. PULMONARY: No asthma, TB, or chronic cough. She has had bronchitis in the past with bronchospasm. CARDIAC: History of diastolic CHF and severe hypertension. No chest pain or shortness of breath at this time. No recent leg edema. GASTROINTESTINAL: See history of present illness. GENITOURINARY: She is incontinent of urine. NEUROLOGIC: History of CVAs with dysarthria and gait disorder with stable deficits over the past several years. MUSCULOSKELETAL: No severe joint pain. PHYSICAL EXAMINATION: GENERAL: The patient is alert lady, lying in bed, in no acute distress. VITAL SIGNS: Reviewed in the computer, most recent as follows: Temperature 98.1, pulse 71, respirations 16, blood pressure 135/56. HEAD, EYES, EARS, NOSE, AND THROAT: Sclerae are nonicteric. Ocular motions intact in all directions. Oral mucosa moist. NECK: No adenopathy. LUNGS: Clear. HEART: Regular rhythm. I hear no murmur. ABDOMEN: Obese and soft without organomegaly. EXTREMITIES: No edema, cyanosis, or clubbing. There is AV graft right upper arm with a good thrill. NEUROLOGIC: She is alert, dysarthric, has poor memory. Ocular motions intact in all directions. Smile is symmetric. She moves all extremities. PERTINENT LABORATORY DATA: Sodium 134, potassium 5.2, BUN 53, creatinine 4.8, calcium is 8.1. CBC is not on the chart. IMPRESSION: 1. Severe anemia likely due to blood loss and chronic GI bleeding. 2. Anemia of chronic kidney disease. She is on Mircera which is a erythropoietin stimulating agent at a high dose in the outpatient setting. 3. End-stage renal disease. 4. History of diverticular disease of the colon. 5. History of CVA. 6. History of hypertension. PLAN: 1. Transfusion on dialysis. 2. We will get stools for occult blood. 3. Orders reviewed for end-stage renal disease. Jose Lemus M.D. DR: Ham JOB#: [id number] CC:
[2020-10-24 10:39] LABS: HEMATOCRIT 20.2 % (37.0-47.0); MEAN CORPUSCULAR VOLUME 98 FL (80-99); PLATELET COUNT 134 K/UL (150-450); RED BLOOD COUNT 2.05 M/UL (4.20-5.40); RED CELL DISTRIBUTION WIDTH 16.3 % (11.6-14.8); WHITE BLOOD COUNT 3.1 K/UL (4.8-10.8)
[2020-10-24 10:45] LABS: HEMOGLOBIN 6.7 G/DL (12.0-16.0)
[2020-10-24 10:48] LABS: % IRON SATURATION 16 % (15-50); IRON 38 ug/dL (50-175); TOTAL IRON BINDING CAPACITY 243 ug/dL (250-450)
[2020-10-24 10:58] LABS: PHOSPHORUS 6.4 MG/DL (2.5-4.9)
--- NOTE | 2020-10-24 11:00 | NUR ---
PT Note Acknowledged order for PT eval/tx. Attempted to see patient for said procedure but patient was receiving dialysis/blood transfusion. Will check again in AM.
[2020-10-24] MEDS: Aspirin Baby 81mg ORAL SCH (14:26)
[2020-10-24] MEDS: Metoprolol Succinate XL 50mg tab ORAL SCH (14:26)
[2020-10-24] MEDS: cloNIDine 0.2mg Tab ORAL SCH ×2 (14:26→20:35)
--- NOTE | 2020-10-24 19:22 | NUR ---
NURSE HAND-OFF: Important Events on Shift: HH 6.7/20.2, Dialysis, 2500 out, 2 units PRBCs given with HD Patient Status: stable Diet: Renal Pending Orders: Stool OB needed daily see order Pending Results/Labs:CBC BMP 10/25 Pending MD notification:none Latest Vital Signs: Temperature 98.7 , Pulse 75 , B/P 148 /68 , Respiratory Rate 18 , O2 SAT 97 , Room Air, O2 Flow Rate . Vital Sign Comment: Monitor BP Latest Virgen Fall Score: 100 Fall Risk: High Risk Safety Measures: Call light Within Reach, Bed Alarm , Side Rails Side Rails x2, Bed position Low and Locked. Fall Precautions: Yellow Socks Yellow Gown Door Sign Patient Fall Education Report given to Celina NUNEZ.
--- NOTE | 2020-10-24 19:49 | NUR ---
NURSES NOTE: Report received from ENRIQUE Stearns. Pt in bed, A/OX4, denies pain or discomfort at this time. No outward s/s of distress noted. Breathing pattern is even and unlabored on RA. Pt received dialysis today. Reported 2500cc output recorded by dialysis nurse. Also received 2 units of PRBC. Pt tolerated both procedures well. L FA IV intact, patent, flushing well. All due medications will be administered. Bed at lowest level. Call light within reach. Pt will continue to be monitored.
[2020-10-25] VITALS: BP 153/74
--- NOTE | 2020-10-25 02:54 | Cardiology Progress Note ---
Subjective DATE OF SERVICE: Oct 24, 2020 Denies any CP or SOB. s/p 2 units of PRBC's No signs of GI bleeding Objective Last 24 Hour Vital Signs Date Time Temp Pulse Resp B/P (MAP) Pulse Ox O2 Delivery O2 Flow Rate FiO2 10/25/20 00:00 98.1 78 18 153/74 (100) 97 10/24/20 21:00 Room Air 10/24/20 20:35 153/67 10/24/20 20:00 98.7 77 17 153/67 (95) 98 10/24/20 18:53 75 148/68 (94) 10/24/20 16:00 98.7 78 18 164/75 (104) 97 10/24/20 14:26 157/60 10/24/20 14:26 70 157/60 10/24/20 13:37 70 157/60 (92) 10/24/20 12:00 98.0 66 16 133/64 (87) 98 10/24/20 08:48 Room Air 10/24/20 08:00 98.1 71 16 135/56 (82) 98 10/24/20 04:00 98.2 70 17 136/58 (84) 94 ROS: unchanged from 10/23/20 HEENT: normal ENT inspection LUNGS: lungs clear bilaterally, diminished breath sounds CARDIAC: normal rate, regular rhythm, normal S1 and S2, systolic murmur - 1/6 systolic murmur at base EXTREMITIES: normal range of motion, No edema, other - AV fistula with palpable thrill Laboratory Tests Test 10/24/20 09:30 10/24/20 10:00 10/24/20 10:10 Reticulocyte Count 2.1 % (0.5-2.0) H Iron Level 38 ug/dL (50-175) L Total Iron Binding Capacity 243 ug/dL (250-450) L Percent Iron Saturation 16 % (15-50) Unsaturated Iron Binding 205 ug/dL (112-346) Phosphorus Level 6.4 MG/DL (2.5-4.9) H Carcinoembryonic Antigen Pending Thyroid Stimulating Hormone (TSH) 1.782 uiU/mL (0.358-3.740) White Blood Count 3.1 K/UL (4.8-10.8) L Red Blood Count 2.05 M/UL (4.20-5.40) L Hemoglobin 6.7 G/DL (12.0-16.0) *L Hematocrit 20.2 % (37.0-47.0) L Mean Corpuscular Volume 98 FL (80-99) Mean Corpuscular Hemoglobin 32.6 PG (27.0-31.0) H Mean Corpuscular Hemoglobin Concent 33.1 G/DL (32.0-36.0) Red Cell Distribution Width 16.3 % (11.6-14.8) H Platelet Count 134 K/UL (150-450) L Mean Platelet Volume 7.3 FL (6.5-10.1) Neutrophils (%) (Auto) % (45.0-75.0) Lymphocytes (%) (Auto) % (20.0-45.0) Monocytes (%) (Auto) % (1.0-10.0) Eosinophils (%) (Auto) % (0.0-3.0) Basophils (%) (Auto) % (0.0-2.0) Differential Total Cells Counted 100 Neutrophils % (Manual) 66 % (45-75) Lymphocytes % (Manual) 20 % (20-45) Monocytes % (Manual) 12 % (1-10) H Eosinophils % (Manual) 2 % (0-3) Basophils % (Manual) 0 % (0-2) Band Neutrophils 0 % (0-8) Platelet Estimate Decreased L Platelet Morphology Normal Hypochromasia 1+ Anisocytosis 1+ Microbiology Date/Time Source Procedure Growth Status 10/23/20 15:55 Rectum Received Assessment/Plan Assessment/Plan Severe anemia Anemia of CKD Hypothyroidism on therap repl rx Hypertension with HHD and chronic diastolic CHF Hx pericardial effusion ESRD Prior GI work up negative for bleeding source Dysphagia with hx GTube Check stool OB Titrate antiHTN regimen GI work up only if signs of bleeding noted HD with UF for volume management Lance Rivas MD Oct 25, 2020 02:54
[2020-10-25 04:00] VITALS: BP 161/76
[2020-10-25 05:55] LABS: HEMATOCRIT 30.5 % (37.0-47.0); MEAN CORPUSCULAR VOLUME 103 FL (80-99); PLATELET COUNT 132 K/UL (150-450); RED BLOOD COUNT 2.95 M/UL (4.20-5.40); WHITE BLOOD COUNT 3.4 K/UL (4.8-10.8)
--- NOTE | 2020-10-25 06:30 | NUR ---
NURSE HAND-OFF: Important Events on Shift:[Stool sample uncollected] Patient Status: [STABLE] Diet: [RENAL] Pending Orders: [NONE] Pending Results/Labs:[NONE] Pending MD notification:[NONE] Latest Vital Signs: Temperature 98.2 , Pulse 76 , B/P 161 /76 , Respiratory Rate 17 , O2 SAT 100 , Room Air, O2 Flow Rate . Vital Sign Comment: [BP runs high intermittently. Dialysis was 10/24. BP meds previously included in eMAR] Latest Virgen Fall Score: 100 Fall Risk: High Risk Safety Measures: Call light Within Reach, Bed Alarm , Side Rails Side Rails x2, Bed position Low and Locked. Fall Precautions: Yellow Socks Yellow Gown Door Sign Patient Fall Education Report given to [].
[2020-10-25 08:00] VITALS: BP 122/77
--- NOTE | 2020-10-25 08:15 | NUR ---
NURSE NOTES: Patient is in bed awake and able to verbalize needs. Stable. Denies pain or SOB. Patient instructed to use call light for assistance, verbalized understanding. AV fistula noted on right arm. All safety measures provided. Order for OB stool noted, unable to collect at this time, patient instructed to call RN when ready to have a bm. Patient is in bed in locked and lowest position with call light within reach. All needs met at this time. Will continue to monitor.
--- NOTE | 2020-10-25 08:15 | Discharge Summary ---
DATE OF ADMISSION: 10/23/2020 DATE OF DISCHARGE: 10/25/2020 ADMITTING DIAGNOSES: 1. Severe anemia, rule out GI bleed. 2. History of hypertension. 3. End-stage renal disease, on chronic hemodialysis. 4. Hypothyroidism. DISCHARGE DIAGNOSES: 1. Severe anemia, rule out GI bleed. 2. History of hypertension. 3. End-stage renal disease, on chronic hemodialysis. 4. Hypothyroidism. HOSPITAL COURSE: The patient was admitted with complaints of severe anemia. She was transfused two units of packed red blood cells. She had no signs or symptoms of bleeding. The patient received hemodialysis one time. On discharge, she was stable. She will discharged home with outpatient workup for the anemia. DISCHARGE MEDICATIONS: Please see discharge medication list for discharge medications. DIET: Renal diet. ACTIVITIES: Ad-jackelin. Chema Hendricks M.D. DR: KENN JOB#: [id number] CC:
[2020-10-25] MEDS: Aspirin Baby 81mg ORAL SCH (08:57)
[2020-10-25] MEDS: Metoprolol Succinate XL 50mg tab ORAL SCH (08:58)
[2020-10-25] MEDS: cloNIDine 0.2mg Tab ORAL SCH (08:58)
--- NOTE | 2020-10-25 09:15 | NUR ---
PT EVALUATION NOTE Patient seen for initial evaluation and treatment initiated. Patient presents with generalized weakness and decreased balance which impairs patient's ability to perform mobility tasks safely. Patient requires CGA/min for bed moiblity and transfers with FWW. Patient able to ambulate 40 ft with CGA/min assist and FWW. Patient will benefit from skilled inpatient PT intervention to increase strength and postural stability for improved level of functional mobility and safety. Recommend discharge home with family assistance and home PT once medically cleared by MD. Patient has FWW, rollator and wheelchair at home. Addendum: 10/25/20 at 1305 by MEREDITH CERVANTES PT Amended: Links added.
--- NOTE | 2020-10-25 09:54 | NUR ---
HAND-OFF: Report given to Tarun NUNEZ.
--- NOTE | 2020-10-25 10:00 | NUR ---
NURSE NOTES: Received report from Arline RN, pt laying in bed with no signs of distress or other issues at this time. AV fistula on the right FA for HD tx. IV on the left FA gauge#20 heplock. call light within reach, bed in lowest position, side rales up x2. I will f/u as needed.
[2020-10-25 12:00] VITALS: BP 171/83
[2020-10-25] MEDS ORDERED: HydrALAZINE 25mg tab ORAL ONE (13:00)
[2020-10-25 13:04] VITALS: BP 171/83
--- NOTE | 2020-10-25 14:08 | NUR ---
CASE MANAGEMENT:INITIAL REVIEW 74 YR OLD FEMALE FROM HOME FOR DIRECT ADMIT CC;SEVERE ANEMIA SI;ANEMIA. RULE OUT GI BLEED 98.3 82 20 157/73 96% ON RA WBC 3.1 RBC 2.05 H/H 6.7/20.2 PLT 134 NA 134 K+ 5.2 BUN 53 CR 4.8 IRON 38 IS;HEPARIN IV ONCE TRANSFUSED 2 UNITS PRBC ADMITTED TO MED SURG MED SURG STATUS DCP;FROM HOME
[2020-10-25] MEDS ORDERED: Tubing Blood Filter IV ONE (14:49)
--- NOTE | 2020-10-25 15:00 | NUR ---
NURSE NOTES: Received order to d/c pt home. called pts daughter Yamilka to inform at [phone]. Discharge instructions and belongings list given to the patient. IV removed prior to d/c. pt left the floor with no signs of distress or other issues at this time. pt's daughter provided transportation. I will f/u as needed.
--- NOTE | 2020-10-25 17:35 | Nephrology Progress Note ---
Assessment/Plan Problem List: (1) Hypertensive nephrosclerosis (2) Anemia in chronic kidney disease (3) End-stage renal disease Plan Hb 10 post transfusion, no stool ob yet collected Subjective Constitutional: Reports: weakness HEENT: Reports: no symptoms Genitourinary: Reports: incontinence Neurologic/Psychiatric: Reports: pre-existing deficit Objective Objective Last 24 Hour Vital Signs Date Time Temp Pulse Resp B/P (MAP) Pulse Ox O2 Delivery O2 Flow Rate FiO2 10/25/20 13:04 171/83 10/25/20 12:00 98.1 80 17 171/83 (112) 96 10/25/20 09:12 Room Air 10/25/20 08:58 122/77 10/25/20 08:58 81 122/77 10/25/20 08:00 99.8 81 17 122/77 (92) 96 10/25/20 04:00 98.2 76 17 161/76 (104) 100 10/25/20 00:00 98.1 78 18 153/74 (100) 97 10/24/20 21:00 Room Air 10/24/20 20:35 153/67 10/24/20 20:00 98.7 77 17 153/67 (95) 98 10/24/20 18:53 75 148/68 (94) Intake and Output 10/24/20 10/25/20 19:00 07:00 Intake Total 300 ml 120 ml Output Total 2500 ml Balance -2200 ml 120 ml Intake Oral 300 ml 120 ml Output Hemodialysis UF 2500 ml # Voids 3 2 Laboratory Tests 10/25/20 05:05: White Blood Count 3.4L, Red Blood Count 2.95L, Hemoglobin 10.0#L, Hematocrit 30.5#L, Mean Corpuscular Volume 103H, Mean Corpuscular Hemoglobin 33.9H, Mean Corpuscular Hemoglobin Concent 32.8, Red Cell Distribution Width 16.0H, Platelet Count 132L, Mean Platelet Volume 7.6, Neutrophils (%) (Auto) , Lymphocytes (%) (Auto) , Monocytes (%) (Auto) , Eosinophils (%) (Auto) , Basophils (%) (Auto) , Differential Total Cells Counted 100, Neutrophils % (Manual) 64, Lymphocytes % (Manual) 22, Monocytes % (Manual) 13H, Eosinophils % (Manual) 1, Basophils % (Manual) 0, Band Neutrophils 0, Platelet Estimate DecreasedL, Platelet Morphology Normal, Hypochromasia 1+, Anisocytosis 1+ Height (Feet): 5 Height (Inches): 2.00 Weight (Pounds): 177 General Appearance: no apparent distress, alert EENT: normal ENT inspection Neck: normal alignment Cardiovascular: normal rate, regular rhythm Abdomen: soft, no organomegaly Extremities: no edema Neurologic: motor weakness, other - dysarthric Jose Lemus MD Oct 25, 2020 17:35
--- NOTE | 2020-10-25 23:49 | Cardiology Progress Note ---
Subjective DATE OF SERVICE: Oct 25, 2020 Denies any CP or SOB. BP episodically elevated. s/p 2 units of PRBC's No signs of GI bleeding Hemoglobin remains stable following HD/UF Objective Last 24 Hour Vital Signs Date Time Temp Pulse Resp B/P (MAP) Pulse Ox O2 Delivery O2 Flow Rate FiO2 10/25/20 13:04 171/83 10/25/20 12:00 98.1 80 17 171/83 (112) 96 10/25/20 09:12 Room Air 10/25/20 08:58 122/77 10/25/20 08:58 81 122/77 10/25/20 08:00 99.8 81 17 122/77 (92) 96 10/25/20 04:00 98.2 76 17 161/76 (104) 100 10/25/20 00:00 98.1 78 18 153/74 (100) 97 ROS: unchanged from 10/23/20 HEENT: normal ENT inspection LUNGS: lungs clear bilaterally, diminished breath sounds CARDIAC: normal rate, regular rhythm, normal S1 and S2, systolic murmur - 1/6 systolic murmur at base EXTREMITIES: normal range of motion, No edema, other - AV fistula with palpable thrill Laboratory Tests Test 10/25/20 05:05 White Blood Count 3.4 K/UL (4.8-10.8) L Red Blood Count 2.95 M/UL (4.20-5.40) L Hemoglobin 10.0 G/DL (12.0-16.0) #L Hematocrit 30.5 % (37.0-47.0) #L Mean Corpuscular Volume 103 FL (80-99) H Mean Corpuscular Hemoglobin 33.9 PG (27.0-31.0) H Mean Corpuscular Hemoglobin Concent 32.8 G/DL (32.0-36.0) Red Cell Distribution Width 16.0 % (11.6-14.8) H Platelet Count 132 K/UL (150-450) L Mean Platelet Volume 7.6 FL (6.5-10.1) Neutrophils (%) (Auto) % (45.0-75.0) Lymphocytes (%) (Auto) % (20.0-45.0) Monocytes (%) (Auto) % (1.0-10.0) Eosinophils (%) (Auto) % (0.0-3.0) Basophils (%) (Auto) % (0.0-2.0) Differential Total Cells Counted 100 Neutrophils % (Manual) 64 % (45-75) Lymphocytes % (Manual) 22 % (20-45) Monocytes % (Manual) 13 % (1-10) H Eosinophils % (Manual) 1 % (0-3) Basophils % (Manual) 0 % (0-2) Band Neutrophils 0 % (0-8) Platelet Estimate Decreased L Platelet Morphology Normal Hypochromasia 1+ Anisocytosis 1+ Microbiology Date/Time Source Procedure Growth Status 10/23/20 15:55 Rectum Received Assessment/Plan Assessment/Plan Severe anemia Anemia of CKD Hypothyroidism on therap repl rx Hypertension with HHD and labile BP Chronic diastolic CHF Hx pericardial effusion ESRD Prior GI work up negative for bleeding source Dysphagia with hx GTube Continue current antiHTN regimen and titrate further following discharge, if needed. HD with UF for volume management Nutritional support with vitamin suppl. Lance Rivas MD Oct 25, 2020 23:49
--- NOTE | 2020-10-26 01:45 | Consultation ---
DATE OF CONSULTATION: 10/23/2020 CARDIOLOGY CONSULTATION CONSULTING PHYSICIAN: Lance Rivas MD. REQUESTING PHYSICIAN: Chema Hendricks MD. REASON FOR CONSULTATION: Management of congestive heart failure in the setting of severe anemia. HISTORY OF PRESENT ILLNESS: This is a 74-year-old female with end-stage renal disease and hypertensive cardiomyopathy, has had progressive drop in hemoglobin levels noted most recently to be 6.5. She has not had any signs of bleeding. She has had detailed gastrointestinal workups in the past. The patient has not complained of chest pain but has had increasing shortness of breath and some edema requiring additional ultrafiltration. She was admitted for further evaluation and care. PAST MEDICAL HISTORY: End-stage renal disease, hypertensive heart disease, diastolic congestive heart failure, degenerative valve disease, hypothyroidism, history of pericardial effusion, diverticular disease, history of gastrostomy tube for adequate nutrition and it was subsequently removed, anemia of chronic kidney disease, prior cholecystostomy tube, right upper extremity AV fistula, osteoarthritis, osteoporosis status post total hip arthroplasty, cerebrovascular disease. SOCIAL HISTORY: Former smoker. No alcohol or substance abuse. Lives with her daughter. MEDICATIONS: Reviewed and reconciled. REVIEW OF SYSTEMS: No known COVID-19 exposures. Recent echocardiogram with normal ejection fraction, concentric hypertrophy, mild degenerative valve disease, and no residual pericardial fluid. There is no history of flow-limiting coronary disease. She has multi-infarct dementia of mild severity. No history of diabetes or thyroid disorder. PHYSICAL EXAMINATION: VITAL SIGNS: Afebrile. Blood pressure 135/56, pulse 71, respiratory rate 16. HEENT: Conjunctival pallor. Arcus senilis. Oropharynx clear. NECK: Supple. Jugular venous pressure difficult to assess. LUNGS: Clear with diminished breath sounds. BREASTS: Without discrete masses. CARDIAC: Regular rhythm and rate. Normal S1, S2 with a fourth heart sound. No murmur or rub. ABDOMEN: Soft, nontender. No pulsatile masses. EXTREMITIES: Nonpitting edema. Palpable bruit over AV graft on the right upper extremity. LABORATORY AND DIAGNOSTIC DATA: Laboratories noted. IMPRESSION: 1. Severe anemia likely chronic due to kidney disease and possible component of chronic gastrointestinal blood loss. 2. Acute on chronic diastolic congestive heart failure. 3. Cerebrovascular disease. 4. Hypertensive cardiomyopathy. 5. End-stage renal disease on hemodialysis. 6. Distant history of pericardial effusion. 7. Hypothyroidism on replacement therapy. PLAN: 1. Packed red blood cell transfusions. 2. Stool occult blood tests. 3. Hemodialysis with ultrafiltration. 4. Titration of antihypertensive regimen once above completed. 5. Check thyroid panel. 6. We will follow. Lance Rivas M.D. DR: Laila JOB#: [id number] CC:
== END 2020-10-25 14:50 | disposition home or self-care (01) | DRG 811 ==
LOC: 3E 11:59
PROC: 30233N1 Transfusion of Nonautologous Red Blood Cells into Peripheral Vein, Percutaneous Approach (ICD-10-PCS; principal; 2020-10-24)
PROC: 5A1D70Z Performance of Urinary Filtration, Intermittent, Less than 6 Hours Per Day (ICD-10-PCS; principal; 2020-10-24)
DX: D64.89 Other specified anemias (principal); N18.6 End stage renal disease; I12.0 Hypertensive chronic kidney disease with stage 5 chronic kidney disease or end stage renal disease; I13.2 Hypertensive heart and chronic kidney disease with heart failure and with stage 5 chronic kidney disease, or end stage renal disease; I50.32 Chronic diastolic (congestive) heart failure; E03.9 Hypothyroidism, unspecified; D63.1 Anemia in chronic kidney disease; Z99.2 Dependence on renal dialysis; Z88.1 Allergy status to other antibiotic agents; Z96.649 Presence of unspecified artificial hip joint; Z86.73 Personal history of transient ischemic attack (TIA), and cerebral infarction without residual deficits; F03.90 Unspecified dementia, unspecified severity, without behavioral disturbance, psychotic disturbance, mood disturbance, and anxiety; Z90.49 Acquired absence of other specified parts of digestive tract; Z87.891 Personal history of nicotine dependence; D63.8 Anemia in other chronic diseases classified elsewhere; M19.90 Unspecified osteoarthritis, unspecified site; M81.0 Age-related osteoporosis without current pathological fracture; R13.10 Dysphagia, unspecified
CPT/HCPCS: 36415; 80048; 82378; 83540; 83550; 84100; 84443; 85007; 85025; 85044; 86850; 86900; 86901; 86920; 87081